=== PATIENT | female | born 2000 | race Caucasian/White ===

== ENCOUNTER 2024-09-25 13:43 | Inpatient (IN) | payer OTHER, SELFPAY ==
[2024-09-25] VITALS (17 sets, daily range): BP systolic 92–112; BP diastolic 61–83; PULSE 79–99; RESP 15–16; TEMP 36–36.8; O2SAT 94–100; BMI 36.3
--- NOTE | 2024-09-25 14:04 | ED.RN ---
PT GAVE LAST NIGHT AT [facility], AFTER GOING TO THE ED TO BE SEEN FOR ABD PAIN RELATED TO HER GALLBLADDER. PT WAS INDUCED AND GAVE TO A 7LB BABY GIRL. 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 PT DENIES ANY N/V OR BOWEL ISSUES. PT PRESENTS WITH YELLOWING OF THE EYES.
--- NOTE | 2024-09-25 14:40 | EX.ED.DYSGE1 ---
HPI History of Present Illness Chief Complaint: Abd Pain Narrative Narrative: Chief complaint and HPI: Right upper quadrant with epigastric abdominal pain. 24-year-old female who is A1 who was induced on 09/26/2024 at 38.6 weeks and delivered via vaginal delivery who presents for right upper quadrant and epigastric pain from [facility]. She was a transfer. History taken by patient, medical record, Dr. Chacon. Patient states that she started having right upper quadrant/epigastric pain on Saturday. She went to the [facility] on in which they induced her due to the concern of her gallbladder. She states the delivery went well without any complications for her the child. She has continued to have right upper quadrant/epigastric pain that radiates to the back. She endorses some nausea but denies vomiting. She denies any fever, chills, shortness of breath, chest pain, dysuria, diarrhea, constipation. Patient states that the ER was expecting her however none of the ER faculty knew that the patient was arriving. She did come with paperwork. She had a right upper quadrant ultrasound performed on 09/25/2024 that showed cholelithiasis. The common bile duct is dilated at 11 mm. Intraductal calculus is not demonstrated. She had mild transaminitis with a total bilirubin of 4.1. The faculty over there spoke with Dr. Chacon. Her lipase was 23. She had no leukocytosis. I spoke with Dr. Chacon personally on the phone, he states that the plan is medical admission with ERCP. Review of systems: See HPI Medications: As listed on the chart Allergies: As listed on the chart PFSH: Per chart Vital signs: As listed on the chart. Reviewed. Physical exam: Gen: A&O x3, NAD Head: Normocephalic, atraumatic Eyes: Sclera icterus, PERRL, EOMI ENT: Moist mucous membranes Neck: Trachea midline, No JVD CV: RRR, no murmurs, no peripheral edema Resp: Lungs CTA BL, no w/r/c GI: Abd soft, non-distended, mildly tender to palpation diffusely, no rebound or rigidity : No CVA tenderness Musc: Full ROM, no deformity Skin: Warm, jaundice Neuro: Alert, oriented, grossly intact, sensation intact Psych: Cooperative, appropriate mood and affect PFSH PFS Home Medications ?Medication ?Instructions ?Recorded ?Last Taken ?Type NK 09/25/24 Unknown History Allergy/AdvReac Type Severity Reaction Status Date / Time No Known Allergies Allergy Verified 09/25/24 14:07 Surgical History (Updated 09/25/24 @ 14:03 by Fiona Bustos) Hx of appendectomy Social History Smoking Status: Never smoker EXAM Physical Exam Const Vital Signs: 09/25/24 13:44 09/25/24 14:43 09/25/24 14:45 Temperature 96.8 F L 97.7 F L Temperature Source Temporal Oral Pulse Rate 86 94 94 Respiratory Rate 15 15 Blood Pressure 108/78 105/77 106/63 Blood Pressure Mean 88 86 77 Pulse Ox 100 96 97 Oxygen Delivery Method Room Air Room Air Room Air 09/25/24 15:00 Temperature 97.8 F Temperature Source Oral Pulse Rate 86 Respiratory Rate 15 Blood Pressure 94/61 Blood Pressure Mean 72 Pulse Ox 96 Oxygen Delivery Method Room Air MDM MDM MDM Narrative Medical decision making narrative: 24-year-old female who is A1 who was induced on 09/26/2024 at 38.6 weeks and delivered via vaginal delivery who presents for right upper quadrant and epigastric pain from [facility]. See HPI. Patient was induced secondary to her pain. She was found to have transaminitis with concern of choledocholithiasis, they spoke with Dr. Chacon with GI and patient was transferred to our hospital. The only issue was nobody in the emergency department was expecting her. I did speak to Dr. Chacon personally as well as reviewed her outlying facility labs and ultrasound. Plan is for admission with ERCP. NS bolus, morphine, Zofran ordered for pain. Will repeat labs before admission. Differential diagnosis includes but is not limited to choledocholithiasis, cholecystitis, cholangitis, pancreatitis, electrolyte abnormality. CBC without leukocytosis. Patient has anemia with hemoglobin of 11.7. She did just have a vaginal delivery. CMP without TIGIST but positive for transaminitis and hyperbilirubinemia. Total bilirubin is 4.12. Direct is 3.02. AST is 74. ALT is 95. Alk phosphatase is 154. Lipase unremarkable. Lactic acid unremarkable. Patient's pain is concerning for choledocholithiasis. Patient has no signs of cholangitis at this time however will cover prophylactically with Zosyn. Patient will warrant admission for ERCP and further workup. Patient was discussed with hospitalist service who accepted admission. Impression: 1. Right upper quadrant send epigastric pain with dilated common bile duct, concern for choledocholithiasis 2. Hyperbilirubinemia 3. Transaminitis 4. Recent vaginal delivery after induction Lab Data Labs: Laboratory Results - last 24 hr 09/25/24 09/25/24 14:40 14:45 WBC 10.2 RBC 3.75 L Hgb 11.7 L Hct 34.0 L MCV 90.7 MCH 31.2 MCHC 34.4 RDW Std Deviation 42.6 RDW Coeff of Rebeca 13.0 Plt Count 177 MPV 10.4 Immature Gran % (Auto) 0.900 Neut % (Auto) 77.6 H Lymph % (Auto) 15.8 L Dundy % (Auto) 4.9 Eos % (Auto) 0.4 Baso % (Auto) 0.4 Absolute Neuts (auto) 8.0 H Absolute Lymphs (auto) 1.62 Nucleated RBC % 0 Sodium 137 Potassium 3.6 Chloride 104 Carbon Dioxide 22.6 Anion Gap 10 BUN 4 Creatinine 0.70 Est GFR (MDRD) Non-Af 123 BUN/Creatinine Ratio 6.2 L Glucose 108 H Lactic Acid < 1.0 Calcium 9.0 Total Bilirubin 4.12 H Direct Bilirubin 3.02 H AST 74 H ALT 95 H Alkaline Phosphatase 154 H Total Protein 6.2 Albumin 3.4 L Globulin 2.8 Lipase 23 Discharge Plan Triage Chief Complaint: Abd Pain ED Provider: Florentin Zamudio Dx/Rx/DC Orders Prescriptions: No Action NK Primary Care Provider: Heather Ruby Referrals: Heather Ruby DO [Primary Care Provider] - Print Language: Tamazight
[2024-09-25] MEDS: Morphine 4 MG/ML Syringe IV (14:41)
[2024-09-25] MEDS: 0.9% Normal Saline (1000mL) 1,000 ML 1000 ML IV (14:41)
[2024-09-25] MEDS: Ondansetron 4 MG/2 ML Vial IV (14:42)
[2024-09-25 14:50] LABS: Absolute Lymphocyte Count 1.62 X10^3/uL (0.83-4.51); Basophil# 0.04 X10^3/uL; Basophil% 0.4 % (0-1); Eosinophil# 0.04 X10^3/uL; Eosinophils% 0.4 % (0-5); Hemoglobin 11.7 g/dL (12.0-15.0); Lymphocyte # 1.62 X10^3/ul (0.83-4.51); Lymphocyte % 15.8 % (19-41); Mean Corp Hgb Conc 34.4 g/dL (32-36); Mean Corpuscular Hgb 31.2 pg (27.0-32.0); Mean Corpuscular Volume 90.7 fL (81-99); Mean Platelet Vol. 10.4 fl (6.2-12.0); Monocyte% 4.9 % (0-10); NRBC Flagged by Analyzer 0 % (0-5); Neutrophil # 7.95 X10^3/uL (2.7-7.7); Neutrophil % 77.6 % (47-70); Platelet Count 177 K/mm3 (150-450); RBC Distribution Width SD 42.6 fl (35.1-43.9); Red Blood Count 3.75 M/mm3 (4.2-5.4); White Blood Count 10.2 K/mm3 (4.4-11.0)
[2024-09-25 15:43] LABS: AST(SGOT) 74 U/L (<=31); Alanine Aminotransfer ALT/SGPT 95 U/L (<=34); Albumin, Serum 3.4 g/dL (3.5-5.0); Alkaline Phosphatase 154 U/L (35-104); Anion Gap 10 (5-15); BUN 4 mg/dL (4-19); BUN/Creat Ratio 6.2 RATIO (10-20); Bilirubin, Direct 3.02 mg/dL (0.00-0.30); Carbon Dioxide 22.6 mmol/L (21.0-32.0); Chloride 104 mmol/L (98-108); EST Glomerular Filtration Rate 123 (>60); Globulin 2.8 g/dL (2.2-4.2); Glucose 108 mg/dL (70-99); Lipase 23 U/L (13-75); Potassium 3.6 mmol/L (3.3-5.1); Protein, Total 6.2 g/dL (5.9-8.4); Sodium Level 137 mmol/L (133-145); Total Bilirubin 4.12 mg/dL (0.00-1.30)
[2024-09-25 15:44] LABS: Lactic Acid < 1.0 mmol/L (0.0-2.0)
[2024-09-25] MEDS: Piperacil/Tazobactam 3.375 GM in 0.9% Normal Saline (50mL MB+) 50 ML IV ×2 (16:12→22:29)
--- NOTE | 2024-09-25 16:14 | HP.PCM.HOS_ITS ---
HPI - General General Date of Admission: 09/25/24 Date of Service: 09/25/24 Chief Complaint: Epigastric pain. HPI Narrative The patient is a 24 y/o Juancarlos F w/ PMHx: Biliary colic which from description has been ongoing for some time who presents to the [facility] ED on with history of being in her third trimester of with due date technically on 03 October however on Saturday she started having epigastric and right upper quadrant pain approximately 30 minutes following her meals with pain noted to be sharp stabbing and dull aching with associated nausea, emesis and diaphoresis however it seemed to subside but tended to also wax and wane with a reoccurrence event on at 3 AM in the morning with also at that time potential uterine cramps prompting outside facility ED evaluation at [facility]. Patient was admitted and delivered a healthy infant with no concerns per discussion with patient and spouse as well as review of facility records. The facility did speak with mercantile agent Dr. Chacon who recommended ERCP and was under the impression patient was being transferred to [facility] for treatment but secondary to cost and patient/spouse preference they ended up coming by private drive and presented to the ED. Patient notes that when her pain was at its worst was 9-10 out of 10 in severity. Currently she notes pain is improved and reporting 0 out of 10. Records from outside facility included most recently CMP with total bilirubin 4.2, AST/ALT 82/156, CBC with WBC 10.0, hemoglobin 11.4, platelet 184 with left shift, gallbladder ultrasound with evidence of cholelithiasis with numerous small stones layering in the gallbladder with mild intrahepatic ductal dilatation obtained on 09/24/2024 with follow-up repeat ultrasound with cholelithiasis with then common bile duct dilatation to 11 mm with intraductal calculus not demonstrated at that time but increasing concern. She denies any recent fevers or chills. Workup in the ED included T96.8 Temporal, heart rate 86, BP 108/78, respiratory rate 15, under percent on room air with most recent repeat vitals T97.9, heart rate 88, BP 92/69, respiratory rate 16, 95% on room air, CBC with WC 10.2, hemoglobin 0.7, platelets 177 with left shift, CMP with glucose 108, lactic acid less than 1, T. bili 4.12, D bili 3.02, AST/LT 74/25, alk phos 154, lipase 23. ED did discuss case with Dr. Chacon gastroenterology with plan for ERCP and also with Dr. Mayo general surgeon who requested medical admission with expected consult following ERCP per discussion with ED physician. [facility] Medical History (Updated 09/25/24 @ 16:[address] Radha Romano MD) Biliary colic Home Medications ?Medication ?Instructions ?Recorded ?Last Taken ?Type NK 09/25/24 Unknown History Allergy/AdvReac Type Severity Reaction Status Date / Time No Known Allergies Allergy Verified 09/25/24 14:07 Family History (Updated 09/25/24 @ 16:[address] Radha Romano MD) Mother No problems noted. Father No problems noted. Surgical History (Updated 09/25/24 @ 14:03 by Fiona Bustos) Hx of appendectomy Social History (Updated 09/25/24 @ 16:[address] Radha Romano MD) household members: spouse, children and other details: 2 older children at home, 1 miscarriage, 1 09/24/24. Smoking Status: Never smoker alcohol intake: never substance use type: does not use ROS ROS Narrative Admission Review of Systems: CONSTITUTIONAL: No weight loss, fever, chills, + weakness or fatigue. HEENT: + Mild jaundice/mild scleral icterus Eyes: No visual loss, blurred vision, double vision or yellow sclerae. Ears, Nose, Throat: No hearing loss, sneezing, congestion, runny nose or sore throat. SKIN: No rash or itching, lesions, wounds, + mild scleral icterus/jaundice evidence, occasional stage ecchymoses likely from recent lab draws. CARDIOVASCULAR: No chest pain, chest pressure or chest discomfort, palpitations, edema, orthopnea, syncopal events. RESPIRATORY: No shortness of breath, cough or sputum, wheezing, hemoptysis. GASTROINTESTINAL: + Decreased appetite, episode of nausea and emesis, abdominal pain. No diarrhea, abdominal pain, melena, BRBPR. GENITOURINARY: No dysuria, frequency, urgency or retention. NEUROLOGICAL: No headache, dizziness, syncope, paralysis, ataxia, numbness or tingling in the extremities, focal weakness, change in bowel or bladder control, seizure. MUSCULOSKELETAL: + muscle, back pain, joint pain or stiffness. HEMATOLOGIC: + Anemia likely associate with , recent spontaneous vaginal delivery with expected postdelivery vaginal bleeding. LYMPHATICS: No enlarged nodes. No history of splenectomy. PSYCHIATRIC: No history of depression or anxiety. ENDOCRINOLOGIC: No reports of sweating, cold or heat intolerance. No polyuria or polydipsia. ALLERGIES: No history of asthma, hives, eczema or rhinitis. Vital Signs Vital Signs Vital Signs: 09/25/24 13:44 09/25/24 14:43 09/25/24 14:45 Temperature 96.8 F L 97.7 F L Temperature Source Temporal Oral Pulse Rate 86 94 94 Respiratory Rate 15 15 Blood Pressure 108/78 105/77 106/63 Blood Pressure Mean 88 86 77 Pulse Ox 100 96 97 Oxygen Delivery Method Room Air Room Air Room Air 09/25/24 15:00 Temperature 97.8 F Temperature Source Oral Pulse Rate 86 Respiratory Rate 15 Blood Pressure 94/61 Blood Pressure Mean 72 Pulse Ox 96 Oxygen Delivery Method Room Air Physical Exam Narrative Physical Examination: General: Awake, alert, oriented x 3 and cooperative, seated upright in the ED bed in no apparent distress, fatigued, notes pain is absent at this time. Skin: Mildly jaundiced color, normal turgor, no icterus, no cyanosis except occasional stage ecchymoses suspected likely from recent lab draws at alternate facility HEENT: AT/NC, EOMI, PERRLA, mild scleral icterus evident, mildly dry MM, no carotid bruits or JVD noted. Lungs: CTA bilaterally, moderate effort, mild decrease BL bases, no rales, ronchi or wheezing. Heart: Regular rate and rhythm; no gallop, rub audible. Abdomen: Soft, no significant tenderness to palpation of the epigastric or right upper quadrant despite recent pain reported prior, she notes it currently is better, some discomfort with palpation of the uterine fundus as to be expected, no marked distention evident, distant BS, no obvious HSM. Extremities: No cyanosis, clubbing, or edema. Neurological: Patient awake, alert, oriented as noted, cognitive function intact; pupils equally reactive to light and accommodation, cranial nerves grossly normal, moving all 4 extremities, no focal deficits, strength mildly globally decreased. Psychiatric: Affect appears fatigued, no acute evidence of depressive or anxiety feelings. Results Lab / Micro Data 09/25/24 14:40 09/25/24 14:40 Labs: Laboratory Results - last 24 hr 09/25/24 14:40: WBC 10.2, RBC 3.75 L, Hgb 11.7 L, Hct 34.0 L, MCV 90.7, MCH 31.2, MCHC 34.4, RDW Std Deviation 42.6, RDW Coeff of Rebeca 13.0, Plt Count 177, MPV 10.4, Immature Gran % (Auto) 0.900, Neut % (Auto) 77.6 H, Lymph % (Auto) 15.8 L, [place] % (Auto) 4.9, Eos % (Auto) 0.4, Baso % (Auto) 0.4, Absolute Neuts (auto) 8.0 H, Absolute Lymphs (auto) 1.62, Nucleated RBC % 0, Sodium 137, Potassium 3.6, Chloride 104, Carbon Dioxide 22.6, Anion Gap 10, BUN 4, Creatinine 0.70, Est GFR (MDRD) Non-Af 123, BUN/Creatinine Ratio 6.2 L, Glucose 108 H, Calcium 9.0, Total Bilirubin 4.12 H, Direct Bilirubin 3.02 H, AST 74 H, A LT 95 H, Alkaline Phosphatase 154 H, Total Protein 6.2, Albumin 3.4 L, Globulin 2.8, Lipase 23 09/25/24 14:45: Lactic Acid < 1.0 Assessment & Plan Assessment/Plan (1) Choledocholithiasis: (2) Vaginal delivery: PLAN: Plan The patient is a 24 y/o Juancarlos F w/ PMHx: Biliary colic which from description has been ongoing for some time who presents to the [facility] ED on with history of being in her third trimester of with due date technically on 03 October however on Saturday she started having epigastric and right upper quadrant pain approximately 30 minutes following her meals with pain noted to be sharp stabbing and dull aching with associated nausea, emesis and diaphoresis however it seemed to subside but tended to also wax and wane with a reoccurrence event on at 3 AM in the morning with also at that time potential uterine cramps prompting outside facility ED evaluation at [facility]. #1. Acute choledocholithiasis with significant hyperbilirubinemia, transaminitis, mild leukocytosis with shift complicated by #2: Will admit to medical surgical floor, plan for transition potentially from ED to ERCP lab per discussion with gastroenterology, will continue n.p.o. status, IV PPI, IV fluids, IV Zosyn, continued CBC, BMP/Paddock profile trending as well as lipase trending, General Surgery also consulted for planned upcoming cholecystectomy given history. #2. Recent spontaneous vaginal delivery with breast-feeding status: Will maintain on vitamin and have requested breast pump be made available for patient and that breastmilk be stored in the normal section that OB utilizes. Pharmacy consulted to review medications given breast-feeding status. #3. Normocytic anemia, suspect related with : Admission hemoglobin 11.7, MCV 90.7, similar to outside facility, will continue to trend CBC. Continue on complete prenatals as noted above. #4. DVT prophylaxis: SCDs. Charges/Coding Visit Charges Inpatient E&M: 26323 Init Hosp L2
--- NOTE | 2024-09-25 16:27 | ED.RN ---
THIS NURSE WAS ADVISED BY HER CHARGE NURSE THAT PT WAS GOING DOWN FOR SURGERY, DR YOUNG WAS IN TH ROOM WITH PT AND DR CRAWFORD WAS UNAWARE THE PT WAS GOING DOWN. AFTER DR YOUNG POHEDY ITH DR BATISTA IT WAS CONFIRMED PT WAS GOING DOWN FOR PREOP WITH DR BATISTA. I GAVE ZOSYN ABX IV AND CALLED REPORT TO #[phone].
--- NOTE | 2024-09-25 16:48 | PCM.PRE.AN2 ---
ASA Classification* ASA Classification ASA Classification: 2 and E Assessment & Plan Anesthesia* Anesthesia Assessment Anesthesia Assessment: Discussed sedation and/or anesthesia options, risks, benefits, and alternatives with patient/parents/legal guardian/POA. Questions invited. The patient/parents/legal guardian/POA seems to understand and agrees to proceed with anesthesia plan. Reviewed the physical assessment, medical history, allergy history and patient home medications list prior to surgery/procedure/anesthetic and documented any changes. Performed airway and anesthesia risk assessments. Anesthesia Type Anesthesia Type: General (Food at 930 am. with delivery yesterday) Anesthesia Focused Assessment* Temperature: 97.9 F Pulse Rate: 88 Blood Pressure: 92/69 Respiratory Rate: 16 Pulse Ox: 95 Airway Assessment Mouth opens: >3 cm Mallampati Score: II Focused Labs Anesthesia Preop lab: CBC WBC 10.2 K/mm3 (4.4-11.0) 09/25/24 14:40 09/25/24 RBC 3.75 M/mm3 (4.2-5.4) L 09/25/24 14:40 09/25/24 Hgb 11.7 g/dL (12.0-15.0) L 09/25/24 14:40 09/25/24 Hct 34.0 % (37-47) L 09/25/24 14:40 09/25/24 Plt Count 177 K/mm3 (150-450) 09/25/24 14:40 09/25/24 CHEMISTRY Potassium 3.6 mmol/L (3.3-5.1) 09/25/24 14:40 09/25/24 Sodium 137 mmol/L (133-145) 09/25/24 14:40 09/25/24 BUN 4 mg/dL (4-19) 09/25/24 14:40 09/25/24 Creatinine 0.70 mg/dL (0.70-1.20) 09/25/24 14:40 09/25/24 Glucose 108 mg/dL (70-99) H 09/25/24 14:40 09/25/24 COAG Pre-Assessment Diagnosis/Proposed Procedure Planned Operative Procedure(s): ERCP Anesthesia History Anesthesia History - transmission builder: Anesthesia History - transmission builder Hx Hospitalization Any Problems With Anesthesia Cholinesterase deficiency You/Your Family Experience fever (hyperthermia) with Relationship Recent Exposure to Contagious Disease Does patient have nerve stimulator Patient instructed to have device shut off --Does patient have Pacemaker or ICD? When Was Last Pacemaker Check QUESTION #4 FULL TEXT: You/Your Family Experience fever (hyperthermia) with Anesthesia Last Oral Intake Last Oral intake: Last Oral Intake NPO since Meds taken in AM with sips of water? 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 - transmission builder: PONV - transmission builder Female HX of Motion Sickness HX of N/V After Surgery Non-Smoker Duration of Surgery greater than 60 minutes Number of Risk Factors PONV Score Height & Weight Height & Weight: Anesthesia: Height & Weight Height 5 ft 4 in 09/25/24 13:44 Respiratory Assessment Respiratory Assessment - transmission builder: Respiratory Tract Infection Hx - transmission builder Hx Respiratory Tract Infection STOP Sleep Apnea STOP Sleep Apnea - transmission builder: STOP Sleep Apnea - transmission builder Hx Hypertension Hx Sleep Apnea CPAP BIPAP Do you snore loudly (louder than talking or can be heard Do you often feel tired/ fatigued/ sleepy during daytime? Has anyone observed you stop breathing during sleep? STOP Results QUESTION #5 FULL TEXT : Do you snore loudly (louder than talking or can be heard through closed doors)? 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 Specify any problems Hx of Preganancy in last 3 Months Nurse Filling Out Transfusion & Questions: Date: Time: Patient unable to answer at this time (ie. confused, unrespo /Reproduction History /Reproductive History - transmission builder: /Reproductive Hx- transmission builder Hx Now Gestational Age (in weeks): EDC: Hx Hx Para Hx Section SAB No 09/25/24 13:44 PFSH Medical History Biliary colic Home Medications ?Medication ?Instructions ?Recorded ?Last Taken ?Type NK 09/25/24 Unknown History Allergy/AdvReac Type Severity Reaction Status Date / Time No Known Allergies Allergy Verified 09/25/24 14:07 Family History Mother No problems noted. Father No problems noted. Surgical History Hx of appendectomy Social History household members: spouse, children and other details: 2 older children at home, 1 miscarriage, 1 09/24/24. Smoking Status: Never smoker alcohol intake: never substance use type: does not use Review of Systems (Anesthesia) ROS Narrative System reviewed and no additional complaints, except as documented.
--- NOTE | 2024-09-25 16:48 | EX.PCM.CON.G ---
HPI Consult Data Date of Consult: 09/25/24 HPI Narrative Reason for Consultation: Choledocholithiasis HPI Narrative: SUSANNA CROWLEY, is a 24 F who presents 24-year-old female who is A1 who was induced on 09/26/2024 at 38.6 weeks and delivered via vaginal delivery who presents for right upper quadrant and epigastric pain from [facility]. She was a transfer. History taken by patient, medical record, Dr. Chacon. Patient states that she started having right upper quadrant/epigastric pain on Saturday. She went to the [facility] on in which they induced her due to the concern of her gallbladder. She states the delivery went well without any complications for her the child. She has continued to have right upper quadrant/epigastric pain that radiates to the back. She endorses some nausea but denies vomiting. She denies any fever, chills, shortness of breath, chest pain, dysuria, diarrhea, constipation. Patient states that the ER was expecting her however none of the ER faculty knew that the patient was arriving. She did come with paperwork. She had a right upper quadrant ultrasound performed on 09/25/2024 that showed cholelithiasis. The common bile duct is dilated at 11 mm. Intraductal calculus is not demonstrated. She had mild transaminitis with a total bilirubin of 4.1. [facility] Medical History Biliary colic Home Medications ?Medication ?Instructions ?Recorded ?Last Taken ?Type NK 09/25/24 Unknown History Allergy/AdvReac Type Severity Reaction Status Date / Time No Known Allergies Allergy Verified 09/25/24 14:07 Family History Mother No problems noted. Father No problems noted. Surgical History Hx of appendectomy Social History household members: spouse, children and other details: 2 older children at home, 1 miscarriage, 1 09/24/24. Smoking Status: Never smoker alcohol intake: never substance use type: does not use ROS Constitutional Constitutional: Denies fatigue, fever(s), poor appetite, weight gain or weight loss Gastrointestinal Gastrointestinal: Denies belching, bloating, change in bowel habits, change in stool character, chewing difficulty, coffee ground emesis, constipation, cramping, diarrhea, dyspepsia, dysphagia, early satiety, excessive flatus, fecal incontinence, heartburn, hematemesis, hematochezia, hemorrhoids, loose stools, melena, nausea, odynophagia, rectal bleeding, tenesmus, vomiting or weight changes Physical Exam Const alert, oriented x3, no apparent distress and healthy appearing General Appearance: cooperative GI normal to inspection, nondistended, normoactive bowel sounds, soft to palpation, non-tender and non-distended Percussion: normal to percussion Rectal Exam: deferred Lab / Micro Data 09/25/24 14:40 09/25/24 14:40 Labs: Laboratory Results - last 24 hr 09/25/24 14:40: WBC 10.2, RBC 3.75 L, Hgb 11.7 L, Hct 34.0 L, MCV 90.7, MCH 31.2, MCHC 34.4, RDW Std Deviation 42.6, RDW Coeff of Rebeca 13.0, Plt Count 177, MPV 10.4, Immature Gran % (Auto) 0.900, Neut % (Auto) 77.6 H, Lymph % (Auto) 15.8 L, [place] % (Auto) 4.9, Eos % (Auto) 0.4, Baso % (Auto) 0.4, Absolute Neuts (auto) 8.0 H, Absolute Lymphs (auto) 1.62, Nucleated RBC % 0, Sodium 137, Potassium 3.6, Chloride 104, Carbon Dioxide 22.6, Anion Gap 10, BUN 4, Creatinine 0.70, Est GFR (MDRD) Non-Af 123, BUN/Creatinine Ratio 6.2 L, Glucose 108 H, Calcium 9.0, Total Bilirubin 4.12 H, Direct Bilirubin 3.02 H, AST 74 H, ALT 95 H, Alkaline Phosphatase 154 H, Total Protein 6.2, Albumin 3.4 L, Globulin 2.8, Lipase 23 09/25/24 14:45: Lactic Acid < 1.0 Assessment & Plan Assessment/Plan (1) Choledocholithiasis: (2) Vaginal delivery: PLAN: Plan 24 y/o F w/ PMHx: Biliary colic which from description has been ongoing for some time who presents to the [facility] ED on with history of being in her third trimester of . Laboratory analysis showed increased bilirubin to 4.8, AST 350, ALT 371, alkaline phosphatase 200. Ultrasound showed multiple filling defects in gallbladder and common bile duct increased from 5 mm to 11 mm. She did also have some leukocytosis. I suspect obstructive jaundice secondary to choledocholithiasis and possible underlying ascending cholangitis. Patient will undergo emergent ERCP. Agree with antibiotics. Patient was explained alternatives, risk, benefits include understanding bleeding, infection, sepsis, perforation, need for urgent . She will have an ASA of 3. Charges/Coding Visit Charges Inpatient E&M: 92044 Init Hosp L3
--- NOTE | 2024-09-25 17:15 | RAD_ITS ---
EXAM: ERCP biliary/pancreas CLINICAL HISTORY: ERCP TECHNIQUE: Fluoroscopy for ERCP with 9 spot images FINDINGS: Fluoroscopy time 7.0 seconds Total dose 2.08 mGy Placement of a pancreatic duct stent. Cannulation of the common bile duct. Contrast is seen within a dilated appearing common bile duct. Contrast fills an intrahepatic duct which appears nondilated. A gallbladder is not definitely seen. Placement of a CBD stent. RAD/ERCP Biliary/Pancreas IMPRESSION: ERCP with placement of pancreatic and CBD stents. Reading Location: [id number]
--- NOTE | 2024-09-25 17:56 | OP.ERCP_ITS ---
Patient Name: Lucy Benavides Procedure Date: 09/25/2024 5:02 PM Date of : 2000 Age: 24 Procedure: ERCP Indications: Common bile duct stone(s), Jaundice, Elevated liver enzymes Providers: Ld Chacon DO Medicines: General Anesthesia Patient Profile: This is a 24 year old female. Refer to note in patient chart for documentation of history and physical. Patient has symptoms of acute right upper quadrant abdominal pain and acute jaundice. This patient has no history of previous ERCP. This patient has no history of surgical alteration of the upper digestive tract anatomy. Complications: No immediate complications. Procedure: Pre-Anesthesia Assessment: - Prior to the procedure, a History and Physical was performed, and patient medications and allergies were reviewed. The patient is competent. The risks and benefits of the procedure and the sedation options and risks were discussed with the patient. All questions were answered and informed consent was obtained. Patient identification and proposed procedure were verified by the physician in the pre-procedure area. Mental Status Examination: alert and oriented. Airway Examination: normal oropharyngeal airway and neck mobility. Respiratory Examination: clear to auscultation. CV Examination: normal. Prophylactic Antibiotics: The patient does not require prophylactic antibiotics. Prior Anticoagulants: The patient has taken no anticoagulant or antiplatelet agents except for NSAID medication. ASA Grade Assessment: II - A patient with mild systemic disease. After reviewing the risks and benefits, the patient was deemed in satisfactory condition to undergo the procedure. The anesthesia plan was to use monitored anesthesia care (MAC). Immediately prior to administration of medications, the patient was re-assessed for adequacy to receive sedatives. The heart rate, respiratory rate, oxygen saturations, blood pressure, adequacy of pulmonary ventilation, and response to care were monitored throughout the procedure. The physical status of the patient was re-assessed after the procedure. After obtaining informed consent, the scope was passed under direct vision. Throughout the procedure, the patient's blood pressure, pulse, and oxygen saturations were monitored continuously. The Duodenoscope was introduced through the mouth, and advanced to the duodenum and used to inject contrast into the bile duct and ventral pancreatic duct. The ERCP was accomplished without difficulty. The patient tolerated the procedure well. Scope In: 5:18:14 PM Scope Out: 5:40:19 PM Total Procedure Duration Time 0 hours 22 minutes 5 seconds Findings: The engineering specialist film was normal. The esophagus was successfully intubated under direct vision. The scope was advanced to a normal major papilla in the descending duodenum without detailed examination of the pharynx, larynx and associated structures, and upper GI tract. The upper GI tract was grossly normal. The ventral pancreatic duct was deeply cannulated with the short-nosed traction sphincterotome. Contrast was injected. I personally interpreted the bile duct and pancreatic duct images. There was brisk flow of contrast through the ducts. Image quality was excellent. Contrast extended to the entire biliary tree. The entire opacified area was normal. A long 0.025 inch Jagwire was passed into the ventral pancreatic duct. A 5 mm ventral pancreatic sphincterotomy was made with a traction (standard) sphincterotome using ERBE electrocautery. There was no post-sphincterotomy bleeding. To find object(s) the ventral pancreatic duct was swept with a 6 mm balloon starting at the pancreatic duct in the body of the pancreas. Nothing was found. One 5 Fr by 7 cm temporary stent was placed 5 cm into the ventral pancreatic duct. Bile flowed through the stent. The stent was in good position. A long 0.025 inch Jagwire was passed into the biliary tree. The short-nosed traction sphincterotome was passed over the guidewire and the bile duct was then deeply cannulated. Contrast was injected. Opacification of the entire opacified area and entire biliary tree was successful. The maximum diameter of the ducts was 10 mm. The lower third of the main bile duct contained three stones, the largest of which was 6 mm in diameter. The entire biliary tree was diffusely dilated, with a stone causing an obstruction. The largest diameter was 12 mm. A 5 mm biliary sphincterotomy was made with a traction (standard) sphincterotome using ERBE electrocautery. There was no post-sphincterotomy bleeding. The biliary tree was swept with a 10 mm balloon starting at the upper third of the main bile duct, middle third of the main bile duct, lower third of the main duct, bifurcation, left intrahepatic duct(s) and right intrahepatic duct(s). Sludge was swept from the duct. All stones were removed. One 10 Fr by 5 cm temporary stent was placed 5 cm into the common bile duct. Bile flowed through the stent. The stent was in good position. Impression: - The entire biliary tree was dilated, with a stone causing an obstruction. - Choledocholithiasis was found. Complete removal was accomplished by biliary sphincterotomy and balloon extraction. - A pancreatic sphincterotomy was performed. - The ventral pancreatic duct was swept and nothing was found. - One temporary stent was placed into the ventral pancreatic duct. - A biliary sphincterotomy was performed. - The biliary tree was swept. - One temporary stent was placed into the common bile duct. Procedure Code(s): --- Professional --- 38693, Endoscopic retrograde cholangiopancreatography (ERCP); with placement of endoscopic stent into biliary or pancreatic duct, including pre- and post-dilation and guide wire passage, when performed, including sphincterotomy, when performed, each stent [id number], 59, Endoscopic retrograde cholangiopancreatography (ERCP); with placement of endoscopic stent into biliary or pancreatic duct, including pre- and post-dilation and guide wire passage, when performed, including sphincterotomy, when performed, each stent [id number], Endoscopic retrograde cholangiopancreatography (ERCP); with removal of calculi/debris from biliary/pancreatic duct(s) 45172, 26, Combined endoscopic catheterization of the biliary and pancreatic ductal systems, radiological supervision and interpretation CPT copyright 2021 [employer]. All rights reserved. The codes documented in this report are preliminary and upon balloon artist review may be revised to meet current compliance requirements. Ld Chacon DO 09/25/2024 5:55:43 PM This report has been signed electronically. Number of Addenda: 0 Note Initiated On: 09/25/2024 5:02 PM
--- NOTE | 2024-09-25 18:03 | PCM.POST.ANE ---
Anesthesia: Postop Eval I Current Vital Signs Temperature: 97.6 F Pulse Rate: 96 Blood Pressure: 112/78 Respiratory Rate: 16 Pulse Ox: 94 Oxygen Delivery Method: Room Air Assessment Airway patent: Yes Spontaneous unlabored respirations: Yes Mental status: Awake nausea: No Vomiting: No Anesthesia Complication: No Fluid Hydration Crystalloid volume administer (ml): 400 Total IV fluid infused: 400 Progress Note Anesthesia document: Postop Eval 1 completed: Yes
--- NOTE | 2024-09-25 18:05 | PCM.POSTANE2 ---
Anesthesia Postop Eval I Sum Postop Eval Completion status Anesthesia document: Postop Eval 1 completed: Yes Anesthesia Postop Eval I Summary Anesthesia Postop Eval I Summary: Anesthesia Postop Eval I: Assessment Summary Airway patent Yes 09/25/24 18:04 Spontaneous unlabored Yes 09/25/24 18:04 respirations Mental status Awake 09/25/24 18:04 nausea No 09/25/24 18:04 Vomiting No 09/25/24 18:04 Anesthesia Postop Eval I: Fluid Summary Crystalloid volume administer 400 09/25/24 18:04 (ml) Colloids volume administered ( ml) Blood Product volume administered (ml) Total IV fluid infused 400 09/25/24 18:04 Anesthesia Postop Eval I: Summary Notes Anesthesia Complication No 09/25/24 18:04 Anesthesia Complication Comment: Post-operative progress note Anesthesia: Postop Eval II Evaluation Mental status: Awake Pain Level: 0 nausea: No Vomiting: No
[2024-09-25] MEDS: Morphine 2 MG/ML Syringe IV (21:05)
[2024-09-25] MEDS: 0.9% Normal Saline (1000mL) 1,000 ML 100 ML IV (21:06)
[2024-09-25] MEDS: Pantoprazole Sodium 40 MG in 0.9% Normal Saline (100mL MB+) 100 ML 330 MG IV (21:08)
[2024-09-25] MEDS: 0.9% Normal Saline (100mL Bag) 100 ML 15 ML IV (21:14)
[2024-09-26 00:38] VITALS: RESP 15
[2024-09-26 02:04] VITALS: BP 96/63; PULSE 95; RESP 15; TEMP 36.7; O2SAT 96
[2024-09-26] MEDS: Morphine 2 MG/ML Syringe IV (02:11)
[2024-09-26 05:53] VITALS: BP 98/67; PULSE 92; RESP 15; TEMP 36.8; O2SAT 97
[2024-09-26] MEDS: 0.9% Normal Saline (1000mL) 1,000 ML 100 ML IV (05:56)
[2024-09-26] MEDS: Piperacil/Tazobactam 3.375 GM in 0.9% Normal Saline (50mL MB+) 50 ML IV ×2 (05:57→13:49)
[2024-09-26 06:00] VITALS: BMI 35.5
[2024-09-26 06:33] LABS: Absolute Lymphocyte Count 2.03 X10^3/uL (0.83-4.51); Absolute Neutrophil Count 6.4 X10^3/uL (2.0-7.7); Basophil# 0.04 X10^3/uL; Basophil% 0.4 % (0-1); Eosinophil# 0.09 X10^3/uL; Hematocrit 33.9 % (37-47); Hemoglobin 11.4 g/dL (12.0-15.0); Lymphocyte # 2.03 X10^3/ul (0.83-4.51); Lymphocyte % 22.4 % (19-41); Mean Corp Hgb Conc 33.6 g/dL (32-36); Mean Corpuscular Hgb 31.4 pg (27.0-32.0); Mean Corpuscular Volume 93.4 fL (81-99); Mean Platelet Vol. 10.5 fl (6.2-12.0); Monocyte# 0.46 X10^3/uL; Monocyte% 5.1 % (0-10); NRBC Flagged by Analyzer 0 % (0-5); Neutrophil # 6.36 X10^3/uL (2.7-7.7); Neutrophil % 70.3 % (47-70); Platelet Count 195 K/mm3 (150-450); RBC Distribution Width CV 13.1 % (11.6-14.6); Red Blood Count 3.63 M/mm3 (4.2-5.4); White Blood Count 9.1 K/mm3 (4.4-11.0)
--- NOTE | 2024-09-26 07:18 | PCM.PN.HOSP ---
Reason for Visit Reason for Visit: Diagnoses Calculus of bile duct without cholangitis or cholecystitis without obstruction (09/25/24) Encounter for full-term uncomplicated delivery (09/25/24) Objective Data Objective Data Vital Signs: Vital Signs Temp Pulse Resp BP Pulse Ox O2 Del Method 98.3 F 92 15 98/67 97 Room Air 09/26/24 05:53 09/26/24 05:53 09/26/24 05:53 09/26/24 05:53 09/26/24 05:53 09/26/24 05:53 Oxygen Delivery Method Room Air Weight: 208 lb 1.862 oz Body Mass Index (BMI) 35.5 Intake & Output: Intake and Output for Last 24 Hours 09/24/24 09/25/24 09/26/24 23:59 23:59 23:59 Intake Total 1160 / 1160 1033.33 / 1033.33 Balance 1160 / 1160 1033.33 / 1033.33 Lab / Micro Data 09/26/24 05:40 09/25/24 14:40 Labs: Laboratory Results - last 24 hr 09/25/24 14:40: WBC 10.2, RBC 3.75 L, Hgb 11.7 L, Hct 34.0 L, MCV 90.7, MCH 31.2, MCHC 34.4, RDW Std Deviation 42.6, RDW Coeff of Rebeca 13.0, Plt Count 177, MPV 10.4, Immature Gran % (Auto) 0.900, Neut % (Auto) 77.6 H, Lymph % (Auto) 15.8 L, [place] % (Auto) 4.9, Eos % (Auto) 0.4, Baso % (Auto) 0.4, Absolute Neuts (auto) 8.0 H, Absolute Lymphs (auto) 1.62, Nucleated RBC % 0, Sodium 137, Potassium 3.6, Chloride 104, Carbon Dioxide 22.6, Anion Gap 10, BUN 4, Creatinine 0.70, Est GFR (MDRD) Non-Af 123, BUN/Creatinine Ratio 6.2 L, Glucose 108 H, Calcium 9.0, Total Bilirubin 4.12 H, Direct Bilirubin 3.02 H, AST 74 H, ALT 95 H, Alkaline Phosphatase 154 H, Total Protein 6.2, Albumin 3.4 L, Globulin 2.8, Lipase 23 09/25/24 14:45: Lactic Acid < 1.0 09/26/24 05:40: WBC 9.1, RBC 3.63 L, Hgb 11.4 L, Hct 33.9 L, MCV 93.4, MCH 31.4, MCHC 33.6, RDW Std Deviation 45.0 H, RDW Coeff of Rebeca 13.1, Plt Count 195, MPV 10.5, Immature Gran % (Auto) 0.800, Neut % (Auto) 70.3 H, Lymph % (Auto) 22.4, [place] % (Auto) 5.1, Eos % (Auto) 1.0, Baso % (Auto) 0.4, Absolute Neuts (auto) 6.4, Absolute Lymphs (auto) 2.03, Nucleated RBC % 0 Radiography Diagnostic Testing: Radiology Impression Endo Retro Cholangiopancreatogram 09/25/24 17:15 IMPRESSION: ERCP with placement of pancreatic and CBD stents. Reading Location: [id number] Assessment & Plan Assessment/Plan (1) Choledocholithiasis: (2) Vaginal delivery: PLAN: Plan The patient is a 24 y/o Religious F w/ PMHx: Biliary colic which from description has been ongoing for some time who presents to the [facility] ED on with history of being in her third trimester of with due date technically on 03 October however on Saturday she started having epigastric and right upper quadrant pain approximately 30 minutes following her meals with pain noted to be sharp stabbing and dull aching with associated nausea, emesis and diaphoresis however it seemed to subside but tended to also wax and wane with a reoccurrence event on at 3 AM in the morning with also at that time potential uterine cramps prompting outside facility ED evaluation at [facility]. #1. Acute choledocholithiasis with significant hyperbilirubinemia, transaminitis, mild leukocytosis with shift complicated by #2: Will admit to medical surgical floor, plan for transition potentially from ED to ERCP lab per discussion with gastroenterology, will continue n.p.o. status, IV PPI, IV fluids, IV Zosyn, continued CBC, BMP/P[place]ock profile trending as well as lipase trending, General Surgery also consulted for planned upcoming cholecystectomy given history. Impression: - The entire biliary tree was dilated, with a stone causing an obstruction. - Choledocholithiasis was found. Complete removal was accomplished by biliary sphincterotomy and balloon extraction. - A pancreatic sphincterotomy was performed. - The ventral pancreatic duct was swept and nothing was found. - One temporary stent was placed into the ventral pancreatic duct. - A biliary sphincterotomy was performed. - The biliary tree was swept. - One temporary stent was placed into the common bile duct. #2. Recent spontaneous vaginal delivery with breast-feeding status: on vitamin #3. Normocytic anemia, suspect related with : Admission hemoglobin 11.7, MCV 90.7 #4. DVT prophylaxis: SCDs.
[2024-09-26 07:28] LABS: Lipase 1358 U/L (13-75)
[2024-09-26 07:39] LABS: AST(SGOT) 51 U/L (<=31); Alanine Aminotransfer ALT/SGPT 70 U/L (<=34); Alkaline Phosphatase 130 U/L (35-104); Anion Gap 9 (5-15); BUN 5 mg/dL (4-19); BUN/Creat Ratio 7.8 RATIO (10-20); Bilirubin, Direct 0.66 mg/dL (0.00-0.30); Calcium,Total 8.1 mg/dL (7.6-11.0); Carbon Dioxide 21.9 mmol/L (21.0-32.0); Chloride 108 mmol/L (98-108); EST Glomerular Filtration Rate 123 (>60); Estimated Creatinine Clearance 136.89 ml/min (50-250); Globulin 2.9 g/dL (2.2-4.2); Glucose 77 mg/dL (70-99); Potassium 3.9 mmol/L (3.3-5.1); Protein, Total 5.9 g/dL (5.9-8.4); Sodium Level 139 mmol/L (133-145); Total Bilirubin 0.99 mg/dL (0.00-1.30)
[2024-09-26] MEDS: Acetaminophen 325 MG Tablet 650 MG PO (08:14)
--- NOTE | 2024-09-26 09:08 | EX.PCM.CON.S ---
Assessment & Plan Assessment/Plan (1) Choledocholithiasis: PLAN: Patient gave the day before presentation she presented then with choledocholithiasis. She had ERCP yesterday with stent placement and stone removal. She is feeling well this morning. I will start her on clear liquids. The patient would like to follow-up with Dr. Shaq Richter at [place] for her cholecystectomy. I will refer her on Saturday. I gave her my card in case he is unable to do the surgery and she can follow-up with me. I believe she is safe to be discharged home today or tomorrow depending on hospitalist service. She has a stent in place to prevent further blockage. Chandan Mayo MD Pager: [facility] [address] [place] [address], [address] [place] [address] Office: HPI Consult Data Date of Consult: 09/26/24 HPI Narrative HPI Narrative: SUSANNA CROWLEY, is a 24 F who presents with choledocholithiasis from outside hospital. She underwent ERCP yesterday with stone removal and stent placement. Currently she is not having any pain. [facility] Medical History Biliary colic Home Medications ?Medication ?Instructions ?Recorded ?Last Taken ?Type NK 09/25/24 Unknown History Allergy/AdvReac Type Severity Reaction Status Date / Time No Known Allergies Allergy Verified 09/25/24 14:07 Family History Mother No problems noted. Father No problems noted. Surgical History Hx of appendectomy Social History household members: spouse, children and other details: 2 older children at home, 1 miscarriage, 1 09/24/24. Smoking Status: Never smoker alcohol intake: never substance use type: does not use ROS Constitutional Constitutional: Denies anorexia, chills, fatigue or fever(s) Eyes Eyes: Denies blurry vision ENT HEENT: Denies abnormal hearing Gastrointestinal Gastrointestinal: Reports abdominal pain; Denies nausea or vomiting Genitourinary Genitourinary: Denies change in urinary stream Musculoskeletal Musculoskeletal: Denies abnormal gait Psychiatric Psychiatric: Denies anxiety Endocrine Endocrinology: Denies flushing Hematologic/Lymphatic Hematologic/Lymphatic: Denies easy bleeding Physical Exam Const alert and oriented x3 HEENT normocephalic Eyes PERRL Resp normal respiratory effort Cardio Rate: regular rate Rhythm: regular rhythm GI soft to palpation and non-tender Lab / Micro Data 09/26/24 05:40 09/26/24 05:40 Labs: Laboratory Results - last 24 hr 09/25/24 14:40: WBC 10.2, RBC 3.75 L, Hgb 11.7 L, Hct 34.0 L, MCV 90.7, MCH 31.2, MCHC 34.4, RDW Std Deviation 42.6, RDW Coeff of Rebeca 13.0, Plt Count 177, MPV 10.4, Immature Gran % (Auto) 0.900, Neut % (Auto) 77.6 H, Lymph % (Auto) 15.8 L, [place] % (Auto) 4.9, Eos % (Auto) 0.4, Baso % (Auto) 0.4, Absolute Neuts (auto) 8.0 H, Absolute Lymphs (auto) 1.62, Nucleated RBC % 0, Sodium 137, Potassium 3.6, Chloride 104, Carbon Dioxide 22.6, Anion Gap 10, BUN 4, Creatinine 0.70, Est GFR (MDRD) Non-Af 123, BUN/Creatinine Ratio 6.2 L, Glucose 108 H, Calcium 9.0, Total Bilirubin 4.12 H, Direct Bilirubin 3.02 H, AST 74 H, ALT 95 H, Alkaline Phosphatase 154 H, Total Protein 6.2, Albumin 3.4 L, Globulin 2.8, Lipase 23 09/25/24 14:45: Lactic Acid < 1.0 09/26/24 05:40: WBC 9.1, RBC 3.63 L, Hgb 11.4 L, Hct 33.9 L, MCV 93.4, MCH 31.4, MCHC 33.6, RDW Std Deviation 45.0 H, RDW Coeff of Rebeca 13.1, Plt Count 195, MPV 10.5, Immature Gran % (Auto) 0.800, Neut % (Auto) 70.3 H, Lymph % (Auto) 22.4, [place] % (Auto) 5.1, Eos % (Auto) 1.0, Baso % (Auto) 0.4, Absolute Neuts (auto) 6.4, Absolute Lymphs (auto) 2.03, Nucleated RBC % 0, Sodium 139, Potassium 3.9, Chloride 108, Carbon Dioxide 21.9, Anion Gap 9, BUN 5, Creatinine 0.70, Estim Creat Clear Calc 136.89, Est GFR (MDRD) Non-Af 123, BUN/Creatinine Ratio 7.8 L, Glucose 77, Calcium 8.1, Total Bilirubin 0.99, Direct Bilirubin 0.66 H, AST 51 H, ALT 70 H, Alkaline Phosphatase 130 H, Total Protein 5.9, Albumin 3.0 L, Globulin 2.9, Lipase 1358 H Imaging Radiology Impression Endo Retro Cholangiopancreatogram 09/25/24 17:15 IMPRESSION: ERCP with placement of pancreatic and CBD stents. Reading Location: [id number]
[2024-09-26] MEDS: 0.9% Normal Saline (1000mL) 1,000 ML 250 ML IV (10:30)
[2024-09-26] MEDS: Pantoprazole Sodium 40 MG in 0.9% Normal Saline (100mL MB+) 100 ML 330 MG IV (10:41)
--- NOTE | 2024-09-26 10:54 | CASEMGMT ---
EDER BATISTA Assessment Face to Face with patient for initial transition planning/care coordination assessment. EDER BATISTA introduced self and role at [facility], pt voices understanding. Pt is A&Ox4 and is resting comfortably in bed and is calm. Care providers, pharmacy, and demographics verified. Admitting dx: ABD Pain PCP: Heather Ruby Specialists: Denies Preferred Pharmacy: [facility] Insurance: [employer] Prescription Benefit: Yes LNOK: Be Benavides (H) Living Arrangements: Pt lives with her and 2 children (Ages 4 & 1) in a 3 story home with one step to enter ADLs/IADLs: Ind Transportation: Hires drivers. Denies concerns DME: Denies all DME uses or needs HHC/SNF: Denies hx or needs Pt?s goal: Home Plan: Home, no additional needs. Pt states that she feels safe returning home today with her family and plans to hire a hole digger truck driver. Pt denies further questions or concerns at this time. Lissett Richter RN, CM
--- NOTE | 2024-09-26 11:18 | DCINST_ITS ---
Discharge Instructions Diet Discharge Diet: Light diet - advance as tolerated DC O2, CPAP, BIPAP needs Home O2 Discharge instructions: No Dressing / Incision Discharge Activity: Return to Normal Activity Weight Bearing Status: Weight bearing as tolerated Dressing / Incision Call your doctor if you observe: Fever of 101 or Higher, Coldness, Increased Lupillo n, Numbness or Tingling, Change in Color, Inability to urinate, Inability to have a bowel movement, Shortness of breath, Dizziness, Fainting spells, Swelling in the ankles, Chest pain, Prolonged hiccupping, Increased palpitations (irregular heartbeat) and Calf discomfort Follow Up Care When: IN 2 WEEKS Test Results: Test results from this visit will be discussed in further detail at your follow- up appointment, if applicable. Discharge Plan Admission Admit Date/Time: 09/25/24 16:14 Attending Provider: Carlin Negron Primary Care Provider: Heather Ruby Consulting Providers: Chandan Mayo; Ld Chacon Discharge Orders/Prescriptions Prescriptions: New sennosides-docusate sodium [Stimulant Laxative Plus] 8.6-50 mg Tablet 2 tab PO BID PRN PRN (Reason: Constipation) Qty: 0 0RF Prenatabs FA 29-1 mg Tablet 1 tab PO DAILY@1200 30 Days Qty: 30 3RF amoxicillin-pot clavulanate 875-125 mg tablet 1 tab PO BID 7 Days Qty: 14 0RF Referrals / Follow Up: Chandan Mayo MD [Med Staff - Active Staff] - Within 2 Weeks Heather Ruby DO [Primary Care Provider] - Within 2 Weeks (As scheduled) Ld Chacon DO [Med Staff - Active Staff] - Within 1 Month Disposition Disposition (needs filled in before D/C Order can be placed): Home, Self Care
--- NOTE | 2024-09-26 11:23 | PCM.DC.SUM ---
Providers Date of Admission: 09/25/24 Date of Discharge: 09/26/24 Primary Care Physician: Dr. Heather Ruby, Consultations 09/25/24 18:34 Consult: Gastroenterology Routine Consulting Provider: [facility] Reason for Consult: Choledocholithiasis EMERGENT Consult: No Notified: Yes Date Notified: 09/25/24 Time Notified: 16:16 Method of Notification: ED Physician Initiated Consult: General Surgery Routine Consulting Provider: Chandan Mayo Reason for Consult: Choledocholithiasis EMERGENT Consult: No Notified: Yes Date Notified: 09/25/24 Time Notified: 16:14 Method of Notification: ED Physician Initiated Reason For Visit: ABD PAIN Diagnosis Discharge Diagnosis (1) Choledocholithiasis: Status: Acute Code(s): K80.50 - Calculus of bile duct without cholangitis or cholecystitis without obstruction Plan The patient is a 24 y/o Anab[employer] F with history of biliary colic intermittently for about 10 years but does not see a doctor often came to ED with epigastric and right upper quadrant pain 09/23 approximately 30 minutes following her meals associated nausea, emesis and diaphoresis. [facility] she was delivered/induced on 09/24/2024 at 38.6 weeks admitted vaginal delivery and then transferred to ER. #1. Acute choledocholithiasis with significant hyperbilirubinemia, with cholangitis: Patient has Charcot destroyed with RUQ abdominal pain, jaundice and chills. Patient admitted to [facility]. She had ERCP with biliary sphincterotomy and complete removal of CBD stone and temporary stent in ventral pancreatic duct and CBD. Impression: - The entire biliary tree was dilated, with a stone causing an obstruction. - Choledocholithiasis was found. Complete removal was accomplished by biliary sphincterotomy and balloon extraction. - A pancreatic sphincterotomy was performed. - The ventral pancreatic duct was swept and nothing was found. - One temporary stent was placed into the ventral pancreatic duct. - A biliary sphincterotomy was performed. - The biliary tree was swept. - One temporary stent was placed into the common bile duct. Patient was evaluated by surgeon. As per the note, patient would like to follow-up with Dr. Shaq Richter at [place] [facility] for her cholecystectomy. He feels safe to be discharged today. Patient does not have fever. No leukocytosis. Platelet count normal. Electrolytes normal. Shows improvement in total bilirubin mainly direct hyperbilirubinemia from 4.1-0.99. Transaminases and ALP also improving. Lipase elevated probably due to manipulation of pancreatic duct and CBD. Waiting for GI opinion for discharge. I think patient can be discharged on Augmentin 875 mg twice daily and continue vitamin. Follow-up in GI office in 1 month. #2. Recent spontaneous vaginal delivery with breast-feeding status: on vitamin #3. Normocytic anemia, suspect related with : Admission hemoglobin 11.7, MCV 90.7 #4. DVT prophylaxis: SCDs. Medications at Discharge Home Medications amoxicillin 875 mg-potassium clavulanate 125 mg tablet 1 tab PO BID 1 week #14 tabs 09/26/24 vits,calcium no.78-iron fumarate-folic acid 29 mg-1 mg tablet (Prenatabs FA) 1 tab PO DAILY@1200 30 days #30 tabs 09/26/24 sennosides 8.6 mg-docusate sodium 50 mg tablet (Stimulant Laxative Plus) 2 tab PO BID PRN PRN Constipation #0 tabs 09/26/24 Physical Exam Narrative Seen and examined No fever, but chills in the [facility] Right upper quadrant pain has resolved. No dysuria Physical exam General: Alert, Oriented x3, Cooperative HEENT: Icterus present. Atraumatic, PERRLA, EOMI, Normocephalic Oral: Oral mucosa moist no Gingival or Mucosal Lesions/ Ulcerations Neck: Supple, No JVD, Negative Carotid Bruits Chest wall/Lungs: Air entry diminished in bilateral lung bases. No crepitation/rhonchi Cardiovascular: Regular rate, Regular Rhythm, Normal S1, Normal S2, No M/G/R Abdomen: Bowel Sounds Present, Soft, Non Tender, Non-Distended : No dysuria. No renal angle tenderness. No suprapubic tenderness. Extremities: No edema, Capillary Refill Less than 3 Seconds Skin: No rashes, No breakdown Musculoskeletal: No Tenderness to Palpation of Joints or Extremities Neurological: Cranial nerves II-XII grossly intact, DTR 2+/4. No acute focal neurological deficit. Psych/Mental Status: Normal Affect, Appropriate. Weight / BMI Weight Weight: 208 lb 1.862 oz Body Mass Index (BMI) 35.5 ABG / Lab / Microbiology Data 09/26/24 05:40 09/26/24 05:40 Laboratory: Laboratory Results - last 24 hr 09/25/24 14:40: WBC 10.2, RBC 3.75 L, Hgb 11.7 L, Hct 34.0 L, MCV 90.7, MCH 31.2, MCHC 34.4, RDW Std Deviation 42.6, RDW Coeff of Rebeca 13.0, Plt Count 177, MPV 10.4, Immature Gran % (Auto) 0.900, Neut % (Auto) 77.6 H, Lymph % (Auto) 15.8 L, Ralls % (Auto) 4.9, Eos % (Auto) 0.4, Baso % (Auto) 0.4, Absolute Neuts (auto) 8.0 H, Absolute Lymphs (auto) 1.62, Nucleated RBC % 0, Sodium 137, Potassium 3.6, Chloride 104, Carbon Dioxide 22.6, Anion Gap 10, BUN 4, Creatinine 0.70, Est GFR (MDRD) Non-Af 123, BUN/Creatinine Ratio 6.2 L, Glucose 108 H, Calcium 9.0, Total Bilirubin 4.12 H, Direct Bilirubin 3.02 H, AST 74 H, ALT 95 H, Alkaline Phosphatase 154 H, Total Protein 6.2, Albumin 3.4 L, Globulin 2.8, Lipase 23 09/25/24 14:45: Lactic Acid < 1.0 09/26/24 05:40: WBC 9.1, RBC 3.63 L, Hgb 11.4 L, Hct 33.9 L, MCV 93.4, MCH 31.4, MCHC 33.6, RDW Std Deviation 45.0 H, RDW Coeff of Rebeca 13.1, Plt Count 195, MPV 10.5, Immature Gran % (Auto) 0.800, Neut % (Auto) 70.3 H, Lymph % (Auto) 22.4, Ralls % (Auto) 5.1, Eos % (Auto) 1.0, Baso % (Auto) 0.4, Absolute Neuts (auto) 6.4, Absolute Lymphs (auto) 2.03, Nucleated RBC % 0, Sodium 139, Potassium 3.9, Chloride 108, Carbon Dioxide 21.9, Anion Gap 9, BUN 5, Creatinine 0.70, Estim Creat Clear Calc 136.89, Est GFR (MDRD) Non-Af 123, BUN/Creatinine Ratio 7.8 L, Glucose 77, Calcium 8.1, Total Bilirubin 0.99, Direct Bilirubin 0.66 H, AST 51 H, ALT 70 H, Alkaline Phosphatase 130 H, Total Protein 5.9, Albumin 3.0 L, Globulin 2.9, Lipase 1358 H Radiography Diagnostic Testing: Radiology Impression Endo Retro Cholangiopancreatogram 09/25/24 17:15 IMPRESSION: ERCP with placement of pancreatic and CBD stents. Reading Location: [id number] D/C Instructions Discharge Diet: Light diet - advance as tolerated Weight Bearing Status: Weight bearing as tolerated Call your doctor if you observe: Fever of 101 or Higher, Coldness, Increased Pain, Numbness or Tingling, Change in Color, Inability to urinate, Inability to have a bowel movement, Shortness of breath, Dizziness, Fainting spells, Swelling in the ankles, Chest pain, Prolonged hiccupping, Increased palpitations (irregular heartbeat) and Calf discomfort DC O2, CPAP, BIPAP Needs Home O2 Discharge instructions: No When: IN 2 WEEKS Meaningful Use Info Meaningful Use Meaningful Use Diagnoses (Choose all that apply): None applicable Ischemic Stroke Statin Dosing Therapy Reference: STATIN DOSE THERAPY REFERENCE: * Patients > 75 years receive moderate or high dose statin therapy. * Patients 75 years or YOUNGER should receive HIGH intensity statin dose unless contraindicated. You will be required to document reason for non-treatment if statin daily dose does not meet guidelines. HIGH DOSE STATIN THERAPY DAILY Atorvastatin > than or = to 40 mg Rosuvastatin > than or = to 20 mg Amlodipine + Atorvastatin > than or = to 2.5/40 mg Ezetimibe + Simvastatin 10/80 mg Simvastatin 80mg Discharge Plan Admission Admit Date/Time: 09/25/24 16:14 Attending Provider: Carlin Negron Primary Care Provider: Heather Ruby Consulting Providers: Chandan Mayo; Friend,Ld Discharge Orders/Prescriptions Prescriptions: New sennosides-docusate sodium [Stimulant Laxative Plus] 8.6-50 mg Tablet 2 tab PO BID PRN PRN (Reason: Constipation) Qty: 0 0RF Prenatabs FA 29-1 mg Tablet 1 tab PO DAILY@1200 30 Days Qty: 30 3RF amoxicillin-pot clavulanate 875-125 mg tablet 1 tab PO BID 7 Days Qty: 14 0RF Referrals / Follow Up: Chandan Mayo MD [Med Staff - Active Staff] - Within 2 Weeks Heather Ruby DO [Primary Care Provider] - Within 2 Weeks (As scheduled) Ld Chacon DO [Med Staff - Active Staff] - Within 1 Month Disposition Disposition (needs filled in before D/C Order can be placed): Home, Self Care Charges/Coding Visit Charges Inpatient E&M: 03270 Disch Hosp >30min
[2024-09-26] MEDS: Prenatal Vits Tablet 1 TABLET PO (11:24)
[2024-09-26 11:26] VITALS: BP 96/61; PULSE 93; RESP 18; TEMP 36.9; O2SAT 98
--- NOTE | 2024-09-26 12:35 | NURSING ---
[facility] called [facility] to speak with RN Mahendra about patient. RN reports patient is doing well and currently does not need anything from . RN encouraged to have patient call if anything is needed.
[2024-09-26 13:51] VITALS: BP 114/72; PULSE 93; RESP 18; TEMP 36.8; O2SAT 96
== END 2024-09-26 17:48 | disposition home or self-care (01) | DRG 832 ==
LOC: ED 15:23 → SDC 16:10 → ACINP 16:11 → SDC 17:46 → MS3 17:46
PROVIDERS: Family Medicine; Admitting Provider Internal Medicine Gastroenterology; Emergency Provider Surgery; PCP Obstetrics & Gynecology Gynecology; Visit Provider Internal Medicine
PROC: 0FC98ZZ Extirpation of Matter from Common Bile Duct, Via Natural or Artificial Opening Endoscopic (ICD-10-PCS; CPT 43260; principal; 2024-09-25 15:30)
DX: O26.613 Liver and biliary tract disorders in pregnancy, third trimester (principal); K80.63 Calculus of gallbladder and bile duct with acute cholecystitis with obstruction; Z3A.38 38 weeks gestation of pregnancy
CPT/HCPCS: 36415; 74330; 76000; 80048; 80076; 83605; 83690; 85025; 94668; 99284; C2625; A4216; J2405

== ENCOUNTER 2024-10-20 17:23 | Inpatient (IN) | payer OTHER, SELFPAY ==
[2024-10-20] VITALS (8 sets, daily range): BP systolic 92–120; BP diastolic 61–76; PULSE 89–112; RESP 16–20; TEMP 37.1–37.9; O2SAT 95–100; BMI 34.1; BMI 31.8
--- NOTE | 2024-10-20 17:47 | US_ITS ---
PROCEDURE: GALLBLADDER 10/20/2024 REASON FOR EXAM: PAIN COMPARISON: None FINDINGS: Liver: Mild hepatomegaly, craniocaudal length 17.5 cm. No focal lesion. Gallbladder: Mildly distended. Positive sonographic Huntley's sign. Cholelithiasis within the neck and fundus. Wall thickening, measuring 7 mm. Small amount of layering sludge. Small amount of pericholecystic fluid. Common bile duct: Slightly dilated 5 mm. Pancreas: Visualized portions are sonographically unremarkable. Other: Right kidney: 11.9 cm. No calculi or hydronephrosis. US/Gallbladder IMPRESSION: Moderately distended gallbladder, with cholelithiasis, small pericholecystic fl uid, wall thickening and positive sonographic Huntley's sign, compatible with acute cholecystitis. Reading Location: [facility]
--- NOTE | 2024-10-20 17:47 | EDS_ITS ---
HPI History of Present Illness Chief Complaint: Fever Informant: patient and spouse/S.O. Onset/Context/Timing Onset: Days Context: Gradual Onset Timing: Intermittent Current Severity: Gone Maximum Severity: Mild Narrative Narrative: 24-year-old female history of gallstones. Recent GI consult for gallstone resection and biliary stent. Prior appendectomy. Patient delivered vaginal livery about 4 weeks ago at 30 weeks. She had gallstones with biliary colic was transferred here from [facility]. Dr. Chacon did ERCP remove several gallstones. Placed a stent. Patient has been doing well. Last he started having intermittent upper abdominal pain. Today his pain- free but had a fever at home as high as 1-2.5. Denies nausea or vomiting. No diarrhea. No dysuria. No heavy vaginal bleeding or pelvic pain. No vaginal discharge. Prior similar symptoms: Yes Recent Illness/Hospital[facility]: [facility] Medical History Biliary colic Allergy/AdvReac Type Severity Reaction Status Date / Time No Known Allergies Allergy Verified 10/20/24 17:26 Family History Mother No problems noted. Father No problems noted. Surgical History Hx of appendectomy Social History household members: spouse, children and other details: 2 older children at home, 1 miscarriage, 1 09/24/24. Smoking Status: Never smoker alcohol intake: never substance use type: does not use ROS ROS ED ROS Narrative Abdominal pain. Currently pain-free. Fever. Review of Systems ROS Unobtainable: Denies due to encephalopathy Constitutional Constitutional ED: Reports fever(s); Denies chills Eyes Eyes: Denies blurry vision ENT ENT ED: Denies ear pain Cardiovascular Cardiovascular: Denies chest pain Respiratory/Chest Respiratory/Chest: Denies cough or dyspnea Gastrointestinal Gastrointestinal: Reports abdominal pain; Denies constipation, melena, nausea or vomiting Genitourinary Genitourinary ED: Denies dysuria or hematuria Musculoskeletal Musculoskeletal: Denies arthralgias or back pain Integumentary Denies abscess Neurologic Neurologic: Denies headache(s) Psychiatric Psychiatric: Denies anxiety Endocrine Endocrinology: Denies cold intolerance Hematologic/Lymphatic Hematologic/Lymphatic: Reports none Allergic/Immunologic Allergic/Immunologic ED: Denies mouth swelling, tongue swelling or urticaria EXAM Physical Exam Narrative Exam Narrative: 24-year-old female sitting upright in bed. Vital signs are stable she has a low-grade temperature 100.2. She does not look septic or toxic in any distress. Pulse ox 100% on room air no signs hypoxia. at bedside. H EENT exam pupils round react light. Moist mucous members. Neck nontender no JVD. No lymphadenopathy. Lungs clear to auscultation bilaterally. Heart regular rhythm rate about 105 no murmur. Chest wall ribs nontender. Abdomen soft, nontender, nondistended normal bowel sounds peritoneal signs. There is no localized tenderness. There is no hernia or mass. There is no right upper quadrant tenderness or Huntley sign. Right lower quadrant is nontender. No distention. No rash. No obstruction. Very benign abdominal exam. Completely nontender. Moving all 4 extremities. Nontender no edema. Back nontender. Skin no cellulitis. Neurologically she is awake and alert. Const Vital Signs: 10/20/24 17:26 10/20/24 17:30 10/20/24 17:54 Temperature 100.2 F H 100.2 F H Temperature Source Oral Oral Pulse Rate 109 H 109 H Respiratory Rate 18 18 Respiratory Effort Normal Respiratory Pattern Normal Blood Pressure 120/76 120/76 Blood Pressure Mean 90 90 Pulse Ox 100 100 Oxygen Delivery Method Room Air Room Air 10/20/24 19:17 10/20/24 19:20 10/20/24 20:08 Temperature 99.2 F H 99.2 F H 99 F Temperature Source Oral Oral Oral Pulse Rate 98 98 112 H Respiratory Rate 20 H 20 H 18 Respiratory Effort Respiratory Pattern Blood Pressure 108/63 108/63 92/61 Blood Pressure Mean 78 78 71 Pulse Ox 99 99 95 Oxygen Delivery Method Room Air Room Air Room Air Positive well nourished and well developed; Negative for cachectic, contractures or unkempt General Appearance ED: well developed and NAD; Negative for unkempt, cachectic, contractures, cyanotic, diaphoretic or pallor Nutritional Appearance: Negative for cachectic HEENT Reports moist mucous membranes Negative for trauma or tenderness Eyes PERRL and EOMs intact bilaterally Neck no lymphadenopathy, supple and no JVD Chest Wall inspection of chest normal and palpation of chest normal Resp normal respiratory effort and clear to auscultation bilaterally Effort and Inspection: Negative for retractions Auscultation: Negative for rales, rhonchi, wheezes or diminished lung sounds Cardio regular rate, regular rhythm, S1 normal heart sound, S2 normal heart sound and no murmurs GI normal to inspection, nondistended, normoactive bowel sounds, non-tender, non- distended and no masses Auscultation: normoactive bowel sounds Palpation: soft; Negative for tender, guarding, splenomegaly, mass or rebound tenderness present Back/Spine no CVA tenderness General Back: Negative for CVA tenderness Cervical Spine: Negative for cervical spine tenderness Thoracic Spine / Upper Back: Negative for thoracic spinal tenderness or paraspinal muscle tenderness Lumbar Spine / Lower Back: Negative for lumbar spinal tenderness Extremity normal to inspection General Extremety ED: Negative for edema or tenderness General Extremity: Negative for edema Neuro oriented x3, CN's II-XII intact bilaterally and no sensory deficits noted Sensorium / Orientation: alert; Negative for orientation impaired Sensory Exam: No sensory level loss detected Motor Exam: strength 5/5 throughout; Negative for general weakness or strength abnormal Psych mental status grossly normal Appearance: Negative for unkempt Attitude: No agitated Mood & Affect: Negative for depressed, anxious or tearful Skin no rashes or lesions noted, no wounds and skin turgor normal General Skin Exam: elasticity normal; Negative for jaundice or pallor Lesions: No lesion noted Trauma: Negative for abrasion Wounds: Negative for wounds noted MDM MDM MDM Narrative Medical decision making narrative: 24-year-old female status post 4 weeks ago. Complaining of intermittent abdominal pain for about a week. Today had a fever about 1 or 2.5. Denies vomiting or diarrhea. No dysuria. Currently is pain-free. Had a recent ERCP with gallstone removal and stent placement. Exam is very benign. Ultrasound of right upper quadrant screening labs to be obtained. She does not need anything for pain. She will be given Tylenol for low-grade temperature 100.2. Repeat exam patient is doing well at 7:10 PM. We have gone over her test results. She is having no urinary symptoms. A culture will be sent. Her labs are benign otherwise. Awaiting the gallbladder ultrasound result. Repeat abdominal exam shows right upper quadrant abdominal pain with deep palpation. Clinically she looks well. Ultrasound is consistent with possible acute cholecystitis. I have general surg ahsan Dr. Joya on page. Will discuss admission. Patient will be treated with pain medication. And IV antibiotics. History & Record Review Discussion w/independent historian: Patient and Family Additional record(s) reviewed:: Prior inpatient record, Prior outpatient record, Prior ED visit and Prior labs Lab Data Attestation: I reviewed the patient's lab results. Lab results narrative: CBC shows a normal white count 10.6. H&H 11.9 and 35.2. Glucose 252. Electrolytes show sodium 137. Gap 15. Normal BUN 9 creatinine 0.8. Glucose 74. Liver enzymes normal none are elevated. Lipase is normal at 13. Urinalysis shows 5-10 red cells. 5-10 white cells. 1+ bacteria. 50 occult blood. No nitrates. She is not having any urinary symptoms. A culture will be sent. Right upper quadrant ultrasound shows mildly distended gallbladder. Gallstones. Small cholecystic fluid. Wall thickening. Consistent with acute cholecystitis. Labs: Laboratory Results - last 24 hr 10/20/24 10/20/24 17:55 18:00 WBC 10.6 RBC 3.90 L Hgb 11.9 L Hct 35.2 L MCV 90.3 MCH 30.5 MCHC 33.8 RDW Std Deviation 38.0 RDW Coeff of Rebeca 11.5 L Plt Count 252 MPV 10.1 Immature Gran % (Auto) 0.600 Neut % (Auto) 75.5 H Lymph % (Auto) 17.3 L [place] % (Auto) 4.9 Eos % (Auto) 1.2 Baso % (Auto) 0.5 Absolute Neuts (auto) 8.0 H Absolute Lymphs (auto) 1.83 Nucleated RBC % 0 Sodium 137 Potassium 3.8 Chloride 101 Carbon Dioxide 20.9 L Anion Gap 15 BUN 9 Creatinine 0.82 Estim Creat Clear Calc 114.12 Est GFR (MDRD) Non-Af 102 BUN/Creatinine Ratio 11.6 Glucose 74 Calcium 9.1 Total Bilirubin 0.51 AST 15 ALT 11 Alkaline Phosphatase 102 Total Protein 7.2 Albumin 3.7 Globulin 3.5 Albumin/Globulin Ratio 1.1 Lipase 13 Urine Color Yellow Urine Clarity Sl. Cloudy Urine pH 6.0 Ur Specific [place] 1.020 Urine Protein 30 H Urine Glucose (UA) Normal Urine Ketones 150 A* Urine Occult Blood 50 H Urine Nitrite Negative Urine Bilirubin Negative Urine Urobilinogen 1 H Ur Leukocyte Esterase 25 H Urine RBC 5-10 SEEN Urine WBC 5-10 SEEN Ur Squamous Epith Cells 0-5 SEEN Urine Bacteria 1+ Urine Mucus 0 SEEN Radiography Diagnostic Testing: Clinical Impression(s) from Imaging Studies Gallbladder Ultrasound 10/20/24 17:47 IMPRESSION: Moderately distended gallbladder, with cholelithiasis, small pericholecystic fluid, wall thickening and positive sonographic Huntley's sign, compatible with acute cholecystitis. Reading Location: [facility] Discharge Plan Dx/Rx/DC Orders Clinical Impression: Abdominal pain, Fever, Acute cholecystitis, Gallstone Disposition Disposition: Acute Care Hospital [facility]
[2024-10-20] MEDS: Acetaminophen 500 MG Tablet 1000 MG PO ×2 (17:51→21:46)
[2024-10-20 18:06] LABS: Mucous, Urine 0 SEEN /hpf (<or=2+)
[2024-10-20 18:10] LABS: Absolute Lymphocyte Count 1.83 X10^3/uL (0.83-4.51); Basophil# 0.05 X10^3/uL; Basophil% 0.5 % (0-1); Eosinophil# 0.13 X10^3/uL; Eosinophils% 1.2 % (0-5); Hematocrit 35.2 % (37-47); Hemoglobin 11.9 g/dL (12.0-15.0); Lymphocyte # 1.83 X10^3/ul (0.83-4.51); Lymphocyte % 17.3 % (19-41); Mean Corp Hgb Conc 33.8 g/dL (32-36); Mean Corpuscular Hgb 30.5 pg (27.0-32.0); Mean Corpuscular Volume 90.3 fL (81-99); Mean Platelet Vol. 10.1 fl (6.2-12.0); Monocyte# 0.52 X10^3/uL; Monocyte% 4.9 % (0-10); NRBC Flagged by Analyzer 0 % (0-5); Neutrophil # 7.97 X10^3/uL (2.7-7.7); Neutrophil % 75.5 % (47-70); Platelet Count 252 K/mm3 (150-450); RBC Distribution Width CV 11.5 % (11.6-14.6); White Blood Count 10.6 K/mm3 (4.4-11.0)
[2024-10-20 18:12] LABS: Color, Urine Yellow (Yellow); Glucose, Dipstick Normal (Normal); Leukocyte Esterase-Dipstick 25 /ul (Negative); Nitrite-Dipstick Negative (Negative); Occult Blood-Urine 50 /ul (Negative); Protein-Dipstick 30 mg/dl (Negative); Urine Bilirubin Dipstick Negative (Negative); Urine Clarity Sl. Cloudy (Clear); Urine Urobilinogen 1 mg/dl (Normal)
[2024-10-20 18:31] LABS: Ketone-Dipstick 150 mg/dl (Negative)
[2024-10-20 18:37] LABS: Bacteria 1+ /hpf (None Seen); Red Blood Cells-Urine 5-10 SEEN /hpf (0-5); Squamous Epithelial Cells - UA 0-5 SEEN /hpf (5-10)
[2024-10-20 18:38] LABS: White Blood Cells 5-10 SEEN /hpf (0-5)
[2024-10-20 18:47] LABS: ALB/GLOB Ratio 1.1 RATIO (0.9-2.4); AST(SGOT) 15 U/L (<=31); Alanine Aminotransfer ALT/SGPT 11 U/L (<=34); Albumin, Serum 3.7 g/dL (3.5-5.0); Alkaline Phosphatase 102 U/L (35-104); Anion Gap 15 (5-15); BUN 9 mg/dL (4-19); BUN/Creat Ratio 11.6 RATIO (10-20); Calcium,Total 9.1 mg/dL (7.6-11.0); Carbon Dioxide 20.9 mmol/L (21.0-32.0); Chloride 101 mmol/L (98-108); Creatinine, Serum 0.82 mg/dL (0.70-1.20); EST Glomerular Filtration Rate 102 (>60); Estimated Creatinine Clearance 114.12 ml/min (50-250); Globulin 3.5 g/dL (2.2-4.2); Glucose 74 mg/dL (70-99); Lipase 13 U/L (13-75); Potassium 3.8 mmol/L (3.3-5.1); Protein, Total 7.2 g/dL (5.9-8.4); Sodium Level 137 mmol/L (133-145); Total Bilirubin 0.51 mg/dL (0.00-1.30)
[2024-10-20] MEDS: Ondansetron 4 MG/2 ML Vial IV (20:38)
[2024-10-20] MEDS: Ketorolac 15 MG/ML Vial IV (20:39)
[2024-10-20] MEDS: Piperacil/Tazobactam 4.5 GM in 0.9% Normal Saline (100mL MB+) 100 ML IV (21:01)
[2024-10-20] MEDS: Dextrose 5%/0.9% NaCl 1,000 ML 90 ML IV (21:46)
[2024-10-21] VITALS (17 sets, daily range): BP systolic 93–134; BP diastolic 59–82; PULSE 74–104; RESP 14–20; TEMP 36.7–38; O2SAT 93–99
[2024-10-21] MEDS: Acetaminophen 500 MG Tablet 1000 MG PO ×2 (04:05→21:11)
[2024-10-21] MEDS: Ondansetron 4 MG/2 ML Vial IV (04:05)
[2024-10-21] MEDS: oxyCODONE 5 MG Tablet PO (04:05)
--- NOTE | 2024-10-21 05:00 | EKG12_ITS ---
Test Reason : AM EKG Blood Pressure : */* mmHG Vent. Rate : 89 BPM Atrial Rate : 89 BPM P-R Int : 152 ms QRS Dur : 94 ms QT Int : 360 ms P-R-T Axes : 66 84 51 degrees QTcB Int : 438 ms Normal sinus rhythm Normal ECG No previous ECGs available Confirmed by EDWARD RAUSCH MD ([id number]), tape editor JONAS BARNES ([id number]) on 10/26/2024 9:34:49 AM Referred By: SONIA Confirmed By: EDWARD RAUSCH MD
[2024-10-21] MEDS: Piperacil/Tazobactam 3.375 GM in 0.9% Normal Saline (50mL MB+) 50 ML IV ×3 (06:11→21:02)
[2024-10-21] MEDS: Morphine 2 MG/ML Syringe IV ×3 (06:18→21:19)
[2024-10-21 06:40] LABS: Absolute Lymphocyte Count 1.15 X10^3/uL (0.83-4.51); Absolute Neutrophil Count 6.5 X10^3/uL (2.0-7.7); Basophil# 0.03 X10^3/uL; Basophil% 0.4 % (0-1); Eosinophil# 0.34 X10^3/uL; Hematocrit 34.1 % (37-47); Hemoglobin 11.5 g/dL (12.0-15.0); Lymphocyte # 1.15 X10^3/ul (0.83-4.51); Lymphocyte % 13.5 % (19-41); Mean Corp Hgb Conc 33.7 g/dL (32-36); Mean Corpuscular Hgb 30.6 pg (27.0-32.0); Mean Corpuscular Volume 90.7 fL (81-99); Mean Platelet Vol. 10.1 fl (6.2-12.0); Monocyte% 5.9 % (0-10); NRBC Flagged by Analyzer 0 % (0-5); Neutrophil # 6.45 X10^3/uL (2.7-7.7); Neutrophil % 75.6 % (47-70); Platelet Count 217 K/mm3 (150-450); RBC Distribution Width CV 11.6 % (11.6-14.6); RBC Distribution Width SD 38.5 fl (35.1-43.9); Red Blood Count 3.76 M/mm3 (4.2-5.4); White Blood Count 8.5 K/mm3 (4.4-11.0)
[2024-10-21 06:50] LABS: Prothrombin Time (Protime)PT. 13.4 SECONDS (11.7-14.9)
[2024-10-21 06:51] LABS: Partial Thromboplast Time 35.3 Seconds (24.1-36.2)
[2024-10-21 07:12] LABS: ALB/GLOB Ratio 1.1 RATIO (0.9-2.4); AST(SGOT) 13 U/L (<=31); Alanine Aminotransfer ALT/SGPT 10 U/L (<=34); Albumin, Serum 3.4 g/dL (3.5-5.0); Alkaline Phosphatase 95 U/L (35-104); Anion Gap 12 (5-15); BUN 8 mg/dL (4-19); BUN/Creat Ratio 12.2 RATIO (10-20); Calcium,Total 8.7 mg/dL (7.6-11.0); Carbon Dioxide 23.1 mmol/L (21.0-32.0); Chloride 102 mmol/L (98-108); Creatinine, Serum 0.68 mg/dL (0.70-1.20); EST Glomerular Filtration Rate 124 (>60); Estimated Creatinine Clearance 142.59 ml/min (50-250); Globulin 3.1 g/dL (2.2-4.2); Glucose 69 mg/dL (70-99); Potassium 3.3 mmol/L (3.3-5.1); Protein, Total 6.5 g/dL (5.9-8.4); Sodium Level 137 mmol/L (133-145); Total Bilirubin 0.46 mg/dL (0.00-1.30)
--- NOTE | 2024-10-21 07:54 | HP.PCM_ITS ---
[facility] - General General Date of Admission: 10/20/24 Date of Service: 10/21/24 Chief Complaint: Right upper quadrant abdominal pain HPI Narrative SUSANNA CROWLEY, is a 24 F who presents with a 6 day history of right upper quadrant abdominal pain and fever. Patient notes she has been having intermittent right upper quadrant pain for 9 years. She notes since having her three children the episodes have become increased in intensity of pain and closer together. Patient was recently induced and delivered a healthy baby girl approximately 4 weeks ago. She notes that her liver enzymes were elevated, which prompted delivery and then she went to the ED at [facility]. She was transferred to [facility] with choledocholithiasis on 09/25. Dr. Chacon performed an ERCP on 09/25 with several gallstones being removed and stent placement in the CBD and pancreatic duct. Patient notes when she came to the hospital she was noted to be jaundice. She states following the procedure and discharge, she followed up with Dr. Richter, general surgery. Patient notes she was scheduled to have her gallbladder removed in January. Dr. Richter had requested the stents be removed prior to the patient having her gallbladder removed. Patient was evaluated by I, who scheduled her for stent removal at the end of November. Patient stated last she had increased pain similar to the pain she was experiencing just prior to having the ERCP, which prompted her to proceed to [facility] ED. Patient noted they did labs and gave her pain medication and discharged to her to home. She stated over the weekend she developed fevers. She noted her fever was as high as 102.5 degrees Fahrenheit. She noted anything she eats causes pain in the right upper quadrant. She stated between the pain and fevers, she presented to our ED in hopes to have her gallbladder removed. She denies any current urinary issues. She notes having loose stools. She denies any cardiac or pulmonary history. She denies any complications or side effects from anesthesia. She notes previous open appendectomy with a midline incision at the age of 8. RUQ u/s was obtained and demonstrated: Moderately distended gallbladder, with cholelithiasis, small pericholecystic fluid, wall thickening and positive sonographic Huntley's sign, compatible with acute cholecystitis. WBC 8.5, Hgb 11.5, Hct 34.1, Plt 217. Liver enzymes are normal. [facility] Medical History Biliary colic Home Medications ?Medication ?Instructions ?Recorded ?Last Taken ?Type NK 10/20/24 Unknown History Allergy/AdvReac Type Severity Reaction Status Date / Time No Known Allergies Allergy Verified 10/20/24 17:26 Family History Mother No problems noted. Father No problems noted. Surgical History Hx of appendectomy Social History household members: spouse, children and other details: 2 older children at home, 1 miscarriage, 1 09/24/24. Smoking Status: Never smoker alcohol intake: never substance use type: does not use ROS Constitutional Constitutional: Reports systems reviewed and no addt'l complaints, except as documented Eyes Eyes: Reports systems reviewed and no addt'l complaints, except as documented ENT HEENT: Reports systems reviewed and no addt'l complaints, except as documented Cardiovascular Cardiovascular: Reports systems reviewed and no addt'l complaints, except as documented Respiratory/Chest Respiratory/Chest: Reports systems reviewed and no addt'l complaints, except as documented Gastrointestinal Gastrointestinal: Reports systems reviewed and no addt'l complaints, except as documented Genitourinary Genitourinary: Reports systems reviewed and no addt'l complaints, except as documented Musculoskeletal Musculoskeletal: Reports systems reviewed and no addt'l complaints, except as documented Integumentary Integumentary: Reports systems reviewed and no addt'l complaints, except as documented Neurologic Neurologic: Reports systems reviewed and no addt'l complaints, except as documented Psychiatric Psychiatric: Reports systems reviewed and no addt'l complaints, except as documented Endocrine Endocrinology: Reports systems reviewed and no addt'l complaints, except as documented Hematologic/Lymphatic Hematologic/Lymphatic: Reports systems reviewed and no addt'l complaints, except as documented Allergic/Immunologic Allergic/Immunologic: Reports systems reviewed and no addt'l complaints, except as documented Vital Signs Vital Signs Vital Signs: 10/20/24 17:26 10/20/24 17:30 10/20/24 17:54 Temperature 100.2 F H 100.2 F H Temperature Source Oral Oral Pulse Rate 109 H 109 H Respiratory Rate 18 18 Respiratory Effort Normal Respiratory Depth Respiratory Pattern Normal Blood Pressure 120/76 120/76 Blood Pressure Mean 90 90 Pulse Ox 100 100 Oxygen Delivery Method Room Air Room Air 10/20/24 19:17 10/20/24 19:20 10/20/24 20:08 Temperature 99.2 F H 99.2 F H 99 F Temperature Source Oral Oral Oral Pulse Rate 98 98 112 H Respiratory Rate 20 H 20 H 18 Respiratory Effort Respiratory Depth Respiratory Pattern Blood Pressure 108/63 108/63 92/61 Blood Pressure Mean 78 78 71 Pulse Ox 99 99 95 Oxygen Delivery Method Room Air Room Air Room Air 10/20/24 20:42 10/20/24 21:00 10/20/24 21:23 Temperature 99 F 99 F 98.8 F Temperature Source Oral Oral Pulse Rate 89 89 95 Respiratory Rate 16 16 16 Respiratory Effort Respiratory Depth Respiratory Pattern Blood Pressure 110/73 109/71 109/70 Blood Pressure Mean 85 83 83 Pulse Ox 96 96 98 Oxygen Delivery Method Room Air Room Air 10/20/24 21:23 10/21/24 04:00 Temperature 98.0 F Temperature Source Oral Pulse Rate 74 Respiratory Rate 14 Respiratory Effort Normal Non-Labored Respiratory Depth Normal Respiratory Pattern Normal Blood Pressure 93/59 L Blood Pressure Mean 70 Pulse Ox 99 Oxygen Delivery Method Room Air Room Air Weight Weight: 197 lb 8.547 oz Body Mass Index (BMI) 31.8 Physical Exam Const alert, oriented x3 and no apparent distress HEENT normocephalic and head/scalp atraumatic Eyes PERRL Neck full ROM Resp normal respiratory effort and clear to auscultation bilaterally Cardio regular rate and regular rhythm GI GI Narrative: Abdomen- soft, nondistended. Tenderness in the RUQ. Positive Huntley's sign. Well-healed midline incision no CVA tenderness Back/Spine no CVA tenderness Extremity normal to inspection Skin no rashes or lesions noted Neuro no focal motor deficits and no sensory deficits noted Psych mental status grossly normal, thought process normal, cooperative, affect normal and activity/motor behavior normal Results Lab / Micro Data 10/21/24 05:20 10/21/24 05:20 Labs: Laboratory Results - last 24 hr 10/20/24 17:55: WBC 10.6, RBC 3.90 L, Hgb 11.9 L, Hct 35.2 L, MCV 90.3, MCH 30.5, MCHC 33.8, RDW Std Deviation 38.0, RDW Coeff of Rebeca 11.5 L, Plt Count 252, MPV 10.1, Immature Gran % (Auto) 0.600, Neut % (Auto) 75.5 H, Lymph % (Auto) 17.3 L, [place] % (Auto) 4.9, Eos % (Auto) 1.2, Baso % (Auto) 0.5, Absolute Neuts (auto) 8.0 H, Absolute Lymphs (auto) 1.83, Nucleated RBC % 0, Sodium 137, Potassium 3.8, Chloride 101, Carbon Dioxide 20.9 L, Anion Gap 15, BUN 9, Creatinine 0.82, Estim Creat Clear Calc 114.12, Est GFR (MDRD) Non-Af 102, BUN/Creatinine Ratio 11.6, Glucose 74, Calcium 9.1, Total Bilirubin 0.51, AST 15, ALT 11, Alkaline Phosphatase 102, Total Protein 7.2, Albumin 3.7, Globulin 3.5, Albumin/Globulin Ratio 1.1, Lipase 13 10/20/24 18:00: Urine Color Yellow, Urine Clarity Sl. Cloudy, Urine pH 6.0, Ur Specific [place] 1.020, Urine Protein 30 H, Urine Glucose (UA) Normal, Urine Ketones 150 A*, Urine Occult Blood 50 H, Urine Nitrite Negative, Urine Bilirubin Negative, Urine Urobilinogen 1 H, Ur Leukocyte Esterase 25 H, Urine RBC 5-10 SEEN, Urine WBC 5-10 SEEN, Ur Squamous Epith Cells 0-5 SEEN, Urine Bacteria 1+, Urine Mucus 0 SEEN 10/21/24 05:20: WBC 8.5, RBC 3.76 L, Hgb 11.5 L, Hct 34.1 L, MCV 90.7, MCH 30.6, MCHC 33.7, RDW Std Deviation 38.5, RDW Coeff of Rebeca 11.6, Plt Count 217, MPV 10.1, Immature Gran % (Auto) 0.600, Neut % (Auto) 75.6 H, Lymph % (Auto) 13.5 L, [place] % (Auto) 5.9, Eos % (Auto) 4.0, Baso % (Auto) 0.4, Absolute Neuts (auto) 6.5, Absolute Lymphs (auto) 1.15, Nucleated RBC % 0, PT 13.4, INR 1.0, APTT 35.3, Sodium 137, Potassium 3.3, Chloride 102, Carbon Dioxide 23.1, Anion Gap 12, BUN 8, Creatinine 0.68 L, Estim Creat Clear Calc 142.59, Est GFR (MDRD) Non- Af 124, BUN/Creatinine Ratio 12.2, Glucose 69 L, Calcium 8.7, Total Bilirubin 0.46, AST 13, ALT 10, Alkaline Phosphatase 95, Total Protein 6.5, Albumin 3.4 L, Globulin 3.1, Albumin/Globulin Ratio 1.1 Imaging Radiology Impression Gallbladder Ultrasound 10/20/24 17:47 IMPRESSION: Moderately distended gallbladder, with cholelithiasis, small pericholecystic fluid, wall thickening and positive sonographic Huntley's sign, compatible with acute cholecystitis. [facility] & Plan Assessment/Plan (1) Acute cholecystitis: (2) History of biliary stent insertion: (3) Abdominal pain: QUALIFIERS: Abdominal location: right upper quadrant Qualified Code(s): R10.11 - Right upper quadrant pain (4) Gallstone: QUALIFIERS: Cholecystitis presence: with cholecystitis C holecystitis acuity: acute Biliary obstruction: without biliary obstruction Q ualified Code(s): K80.00 - Calculus of gallbladder with acute cholecystitis without obstruction PLAN: Plan I have been consulted in conjunction with Dr. Collins. He has independently evaluated this patient. Patient is a 24 y/o F who presented with a 6 day history of worsening right upper quadrant abdominal pain and fever. She has a history of ERCP with gallstone removal and stent placement x [address] Chacon. She was not scheduled to have her gallbladder removed until January. With the patient's persistent right upper quadrant abdominal pain associated with eating and RUQ u/s consistent with acute cholecystitis, I believe it is in the patient's benefit to have her gallbladder removed. Dr. Collins will plan to perform a laparoscopic cholecystectomy with intraoperative cholangiogram today. Procedure details, risks and benefits have been explained to the patient and her by myself and Dr. Collins. Patient will continue to keep her ERCP with stent removal at the end of November. Patient and her have had the opportunity to ask and have questions answered. Patient verbally understands and agrees with the plan. Thank you for allowing us to participate in this patient's care. Charges/Coding Visit Charges Inpatient E&M: 23757 Init Hosp L2 (pre-op)
[2024-10-21 09:06] LABS: Internal QC Validated? YES +Cl - CLEAR BKGD; Pregnancy, Urine Negative Negative
--- NOTE | 2024-10-21 10:07 | CASEMGMT ---
[facility] CM Readmission Note Previous Admission: 09/25/24-09/26/24 Diagnosis: abd pain DC Disposition: Home Current Admission: Admitted 10/20/24 Current Diagnosis: acute cholecystitis Pt was induced at [facility] on 09/24 and delivered. Pt then brought to [facility] on 09/25 and had an ERCP with biliary sphincterectomy and complete removal of CBD stone and temporary stent placed in ventral pancreatic duct and CBD. Pt preferred to be dc'd with Dr. Shaq Richter to perform cholecystectomy. Pt was dc'd on po antibiotics. Pt f/u with Dr. Richter who wanted pt to have stents removed prior to the cholecystectomy. Pt was scheduled for removal in November and surgery in January. Pt represented to [facility] ER with fever and pain with eating. Pt would like cholecystectomy to be performed. Pt states she took her meds as ordered. Pt reports she is I in ADL/IADLs. Pt denies any homegoing needs. 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 Pt would like [employer] in [facility] to be used for meds upon dc. Pt denies further needs. DC Plan: Home
[2024-10-21] MEDS: Dextrose 5%/0.9% NaCl 1,000 ML 90 ML IV (10:20)
--- NOTE | 2024-10-21 12:38 | PCM.PRE.AN2 ---
ASA Classification* ASA Classification ASA Classification: 2 Assessment & Plan Anesthesia* Anesthesia Assessment Anesthesia Assessment: Discussed sedation and/or anesthesia options, risks, benefits, and alternatives with patient/parents/legal guardian/POA. Questions invited. The patient/parents/legal guardian/POA seems to understand and agrees to proceed with anesthesia plan. Reviewed the physical assessment, medical history, allergy history and patient home medications list prior to surgery/procedure/anesthetic and documented any changes. Performed airway and anesthesia risk assessments. Anesthesia Type Anesthesia Type: General Anesthesia Focused Assessment* Temperature: 98.6 F Pulse Rate: 79 Blood Pressure: 105/69 Respiratory Rate: 18 Pulse Ox: 96 Airway Assessment Mouth opens: >3 cm Mallampati Score: II Focused Labs Anesthesia Preop lab: CBC WBC 8.5 K/mm3 (4.4-11.0) 10/21/24 05:20 10/21/24 RBC 3.76 M/mm3 (4.2-5.4) L 10/21/24 05:20 10/21/24 Hgb 11.5 g/dL (12.0-15.0) L 10/21/24 05:20 10/21/24 Hct 34.1 % (37-47) L 10/21/24 05:20 10/21/24 Plt Count 217 K/mm3 (150-450) 10/21/24 05:20 10/21/24 CHEMISTRY Potassium 3.3 mmol/L (3.3-5.1) 10/21/24 05:20 10/21/24 Sodium 137 mmol/L (133-145) 10/21/24 05:20 10/21/24 BUN 8 mg/dL (4-19) 10/21/24 05:20 10/21/24 Creatinine 0.68 mg/dL (0.70-1.20) L 10/21/24 05:20 10/21/24 Glucose 69 mg/dL (70-99) L 10/21/24 05:20 10/21/24 COAG PT 13.4 SECONDS (11.7-14.9) 10/21/24 05:20 10/21/24 Urine Test Negative Negative 10/21/24 08:45 10/21/24 Pre-Assessment Diagnosis/Proposed Procedure Planned Operative Procedure(s): Laparoscopic cholecystectomy. 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 When Was Last Pacemaker Check QUESTION #4 FULL TEXT: You/Your Family Experience fever (hyperthermia) with Anesthesia Last Oral Intake Last Oral intake: Last Oral Intake NPO since Meds taken in AM with sips of water? 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 - gear nicker: PONV - gear nicker Female HX of Motion Sickness HX of N/V After Surgery Non-Smoker Duration of Surgery greater than 60 minutes Number of Risk Factors PONV Score Height & Weight Height & Weight: Anesthesia: Height & Weight Height 5 ft 6 in 10/20/24 21:23 Weight: 89.6 kg 10/20/24 21:23 Body Mass Index (BMI) 31.8 10/20/24 21:23 Respiratory Assessment Respiratory Assessment - gear nicker: Respiratory Tract Infection Hx - gear nicker Hx Respiratory Tract Infection STOP Sleep Apnea STOP Sleep Apnea - gear nicker: STOP Sleep Apnea - gear nicker Hx Hypertension No 10/20/24 21:23 Hx Sleep Apnea No 10/20/24 21:23 CPAP BIPAP Do you snore loudly (louder No 10/20/24 21:23 than talking or can be heard Do you often feel tired/ No 10/20/24 21:23 fatigued/ sleepy during daytime? Has anyone observed you stop No 10/20/24 21:23 breathing during sleep? STOP Results Negative 10/20/24 21:23 QUESTION #5 FULL TEXT : Do you snore loudly (louder than talking or can be heard through closed doors)? 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 Specify any problems Hx of Preganancy in last 3 Yes 10/20/24 21:23 Months Nurse Filling Out Transfusion [id number] 10/20/24 21:23 & Questions: Date: 10/20/24 10/20/24 21:23 Time: 21:29 10/20/24 21:23 Patient unable to answer at this time (ie. confused, unrespo /Reproduction History /Reproductive History - gear nicker: /Reproductive Hx- gear nicker Hx Now No 10/20/24 21:23 Gestational Age (in weeks): EDC: Hx Hx Para Hx Section SAB Yes 10/20/24 21:23 Active Medications Active Medications: Current Medications Generic Name Dose Route Start Last Admin Trade Name Freq PRN Reason Stop Dose Admin Acetaminophen 1,000 mg 10/20/24 22:00 10/21/24 04:05 Acetaminophen 500 Mg Tablet PO 1,000 mg Q8 GEOVANNA Administration Docusate Sodium 100 mg 10/20/24 20:46 Docusate Sodium 100 Mg Capsule PO BID PRN PRN Constipation Dextrose/Sodium Chloride 1,000 mls @ 90 mls/hr 10/20/24 21:00 10/21/24 10:20 Dextrose 5%/0.9% Nacl IV 90 mls/hr .[id number] GEOVANNA Administration Piperacillin Sod/Tazobactam 50 mls @ 12.5 mls/hr 10/21/24 06:00 10/21/24 10:29 Sod 3.375 gm/ Sodium Chloride IV Infused Q8 GEOVANNA Infusion Morphine Sulfate 2 - 4 mg 10/20/24 20:46 10/21/24 10:34 Morphine 2 Mg/Ml Syringe IV 2 mg Q3H PRN PRN Administration Pain Score 6-10 Morphine Sulfate 2 - 4 mg 10/20/24 20:54 Morphine 4 Mg/Ml Syringe IV Q3H PRN PRN Pain Score 6-10 Ondansetron HCl 4 mg 10/20/24 20:46 10/21/24 04:05 Ondansetron 4 Mg/2 Ml Vial IV 4 mg Q8H PRN PRN Administration NAUSEA/VOMITING Oxycodone HCl 5 mg 10/20/24 20:46 10/21/24 04:05 Oxycodone 5 Mg Tablet PO 5 mg Q4H PRN PRN Administration Pain Score 4-10 PFSH Medical History Biliary colic Home Medications ?Medication ?Instructions ?Recorded ?Last Taken ?Type NK 10/20/24 Unknown History Allergy/AdvReac Type Severity Reaction Status Date / Time No Known Allergies Allergy Verified 10/21/24 12:32 Family History Mother No problems noted. Father No problems noted. Surgical History Hx of appendectomy Social History household members: spouse, children and other details: 2 older children at home, 1 miscarriage, 1 09/24/24. Smoking Status: Never smoker alcohol intake: never substance use type: does not use Review of Systems (Anesthesia) ROS Narrative System reviewed and no additional complaints, except as documented.
[2024-10-21] MEDS: Lactated Ringers 1,000 ML 15 ML IV (12:47)
--- NOTE | 2024-10-21 13:30 | GALL_PTH ---
PATIENT: SUSANNA CROWLEY V LOC: MS3 U#:[id number] AGE/SX: 24/F ROOM: MS319 RE10/20/[address]: Dr. Aquilino Collins MD : 2000 BED: 1 DIS: 10/23/2024 SPEC #: [id number] RECD: 10/21/24 17:51 STATUS: GRACE ARANA #: [id number] FRANCIA: 10/21/24 13:[address]: Aquilino Collins DEPT: SURGICAL PATHOLOGY RECD BY: Melecio Peña ENTERED: 10/22/24 09:03 SP TYPE: LUZ MARINA [place] DR: Dr. Heather Ruby DO Tissues: A - Gallbladder, NOS Procedures: Surgery Specimen Level III HEADER OPERATION: Laparoscopic, partial cholecystectomy PRE-OP DIAGNOSIS: Acute cholecystitis, history of biliary stent insertion, abdominal pain, gallstone TISSUE SUBMITTED: A- Partial gallbladder MICROSCOPIC DIAGNOSIS A. Gallbladder, acute cholecystitis, partial cholecystectomy: * Acute on chronic cholecystitis with cholelithiasis. MICROSCOPIC DESCRIPTION Slides are reviewed. GROSS DESCRIPTION A. Received in formalin in a container labeled with the patient's name, date of , and partial gallbladder is a previously disrupted cholecystectomy specimen received in 2 shaggy portions measuring 2.4 x 1.5 x 0.9 cm and 5.4 x 3.0 x 1.7 cm. No cystic duct margin is grossly recognized. No orientation is able to be determined. The largest fragment exhibits pink-ruggiero, focally roughened serosa. The opposing surface displays red-brown, roughened possible mucosa. No typical velvety mucosa is discovered. The average wall thickness is 1.1 cm with scattered hemorrhage. No distinct mass lesion is grossly recognized. The smaller fragment is sectioned to reveal 0.6 cm thick perez with scattered hemorrhage. Free-floating in the container are multiple siegel-red and friable stone fragments measuring 4.0 x 3.3 x 1.0 cm in aggregate. Fixture Designer sections are submitted in A1-2. [facility] 10-22-2024 CPT:[id number]
[2024-10-21] MEDS: Bupiv/Epi 0.25% 30 ML Vial (15:20)
--- NOTE | 2024-10-21 16:16 | PCM.POST.ANE ---
Anesthesia: Postop Eval I Current Vital Signs Temperature: 98.8 F Pulse Rate: 104 Blood Pressure: 112/70 Respiratory Rate: 16 Pulse Ox: 97 Oxygen Delivery Method: Room Air Assessment Airway patent: Yes Spontaneous unlabored respirations: Yes Mental status: Awake and Calm nausea: No Vomiting: No Anesthesia Complication: No Fluid Hydration Crystalloid volume administer (ml): 1,400 Total IV fluid infused: 1,400 Progress Note Anesthesia document: Postop Eval 1 completed: Yes
--- NOTE | 2024-10-21 16:32 | OP.PCM_ITS ---
Problems Associated Problem List Diagnoses (1) Acute cholecystitis: Procedures Digestive 40xxx-49xxx: 99684 Laparoscopic cholecystectomy (Laparoscopic subtotal cholecystectomy without cholangiograms) Operative Report (Standard) Operative Information Date of Procedure: 10/21/24 Pre-Operative Diagnosis: Acute on chronic cholecystitis Post-Operative Diagnosis: Same Surgery/Procedure Performed: Laparoscopic subtotal cholecystectomy in service educator: Yes Turner Off: Dillan Means Tasks completed by assistant superintendent for curriculum: Closing, Trocar and Retracting Additional hotel assistant general manager?: No Type of Anesthesia: General and Local RN Documented Start/Stop Times: Operation Date: 10/21/24 13:30 Case Time Into Pre-Op 10/21/24 12:32 Out of Pre-Op 10/21/24 13:53 Anesthesia Start 10/21/24 14:00 Into Room 10/21/24 14:00 Procedure Start 10/21/24 14:22 Procedure End 10/21/24 16:05 Anesthesia End 10/21/24 16:10 Out of Room 10/21/24 16:10 Into Recovery 10/21/24 16:14 Procedure Start Time: 14:22 Procedure Stop Time: 16:05 Select all DRAINS/GRAFTS/IMPLANTS that apply: Drains Drain details: 10 Bulgarian fully fluted flat AYSE drain x 1 and Tissue Tissue details: Portion of gallbladder with gallbladder contents Special Medications: Receiving Zosyn IV scheduled Estimated Blood Loss: 40 mL Specimen collected: Yes Description of specimen(s) removed: Portion of gallbladder and contents Description of surgery: The patient is a 24-year-old female who recently delivered her third child about a month ago. Her delivery was induced as she had developed choledocholithiasis and had elevated LFTs. After she delivered, she underwent an ERCP by Dr. Chacon. The common bile duct stones were removed and stents were placed. She was advised to have her cholecystectomy performed during that hospitalization however she stated that she would prefer to have this performed closer to home. Patient was initially doing very well up until about 5 days ago when she began having abdominal pain and low-grade fevers. She presented to [facility] last evening. She was seen and evaluated by the ER staff. All of her blood work was pretty unremarkable however she had 102 temperatures at home and her gallbladder ultrasound revealed gallbladder wall thickening. She was subsidy admitted with plans for cholecystectomy today. We discussed the details of the planned procedure as well as risks benefits and alternatives. She wished to proceed. She was brought to the operating today following informed consent. Preoperative antibiotics were being given. She was placed supine on the operative table with arms outstretched and arm boards. A general endotracheal anesthesia was induced. The abdomen was prepped and draped in the usual manner. She had a previous midline incision and so the initial trocar to be placed was a 5 mm trocar placed optically in the right upper quadrant. This was placed without incident. Once in place the abdomen was then fully insufflated with CO2 gas. A 5 mm 0 degree scope was inserted. There were no signs of bowel or vascular injury. She actually had no adhesions along the midline. I placed another 5 mm trocar just below the umbilicus. This was placed without incident. The 5 mm scope was then relocated to this location. An additional right upper quadrant trocar was placed under direct visualization along with a 10 mm trocar placed easily in the epigastric area. Once in place the patient was positioned such that there was head up positioning as well as some turn to the left to improve visualization. The right upper quadrant was visualized. The gallbladder was completely encased in dense chronically adherent omentum. I was then able to begin to peel away some of this densely adherent omentum off the undersurface of the gallbladder. More of the gallbladder was able to be visualized. An aspirating needle was then used to aspirate quite a bit of bile from the gallbladder to help facilitate grasping of the gallbladder. This was reflected in somewhat of a cephalad direction. I was then able to dissect the adhesed omentum off of the gallbladder using blunt dissection with the suction microsoft application developer tip. There was densely adherent omentum to the lateral aspect of the gallbladder and the inferior liver edge. This was taken down using electrocautery and a J-hook. The anterior surface of the gallbladder was then further exposed was actually able to get down to close to the infundibulum however at this point the thick adherent rind did not easily separate from the gallbladder infundibulum whatsoever. I did an attempt to incise this in hopes of being able to develop a plane however this was extremely adherent and densely fibrotic. At this point the decision was made to pursue a subtotal cholecystectomy rather than risk bile duct injury with further dissection in the scarred infundibulum region. I felt that this was the safest option given this scenario. The subtotal cholecystectomy was performed by having the hotel assistant general manager grasped the fundus of the gallbladder. Just below this I then opened up the anterior wall of the gallbladder using harmonic scalpel. This was carried out transversely across the width of the gallbladder. I was then able to suction out the inner lumen of the gallbladder to suck out the bile. At this point the harmonic scalpel was then used to slowly take down the anterior wall of the gallbladder from a top-down approach. As we went further inferiorly stones were able to be identified. These were grasped with a stone scoop. All of the stones were removed. Once we got down close to the infundibulum, the harmonic scalpel was again taken transversely across the anterior wall of the gallbladder thus fully exposing the back wall of the gallbladder. The gallbladder wall was extremely thickened by at least a centimeter. All stones and bilious contents were removed from the gallbladder. There was no backflow of bile noted as patient had a recent sphincterotomy and still has a stent in place. Hemostasis was excellent. The gallbladder wall was then placed into a bag and brought out through the 10 mm trocar site. The right upper quadrant was then copiously irrigated with a total of 3 L of saline until clear. Again hemostasis was excellent. A 10 flat fully fluted AYSE drain was laid in the gallbladder fossa. This drain was brought out through one of the right sided trocar sites. This was sutured to the skin. The fascia of the 10 mm trocar site was closed using 0 PDS with a of the fascial closure device. The remaining trocars were opened up and insufflation was allowed to escape. Local anesthetic was injected into each of the incisions and the incisions were then closed with 4-0 Vicryl. Skin glue was applied as dressing. She was awakened from anesthesia and taken to recovery in good condition. Surgical Findings: Extremely inflamed gallbladder (acute and chronic). Very thickened gallbladder wall Complications Complications: No Admit VTE Documentation VTE Mechan Device Prophylaxis: SCD's VTE Pharm Prophylaxis ordered?: No Reason prophylaxis not ordered: Treatment Not Indicated
--- NOTE | 2024-10-21 17:52 | POSTOPAN2_ITS ---
Anesthesia Postop Eval I Sum Postop Eval Completion status Anesthesia document: Postop Eval 1 completed: Yes Anesthesia Postop Eval I Summary Anesthesia Postop Eval I Summary: Anesthesia Postop Eval I: Assessment Summary Airway patent Yes 10/21/24 16:16 [email or web address] Spontaneous unlabored Yes 10/21/24 16:16 CONCRETE BUCKET [email or web address] respirations Mental status Awake,Calm 10/21/24 16:16 [email or web address] nausea No 10/21/24 16:16 CONCRETE [email or web address] Vomiting No 10/21/24 16:16 [email or web address] Anesthesia Postop Eval I: Fluid Summary Crystalloid volume administer 1,400 10/21/24 16:16 [email or web address] (ml) Colloids volume administered ( ml) Blood Product volume administered (ml) Total IV fluid infused 1,400 10/21/24 16:16 [email or web address] Anesthesia Postop Eval I: Summary Notes Anesthesia Complication No 10/21/24 16:16 CONCRETE [email or web address] [email or web address] Anesthesia Complication Comment: Post-operative progress note Anesthesia: Postop Eval II Evaluation Mental status: Awake and Calm Pain Level: 1 nausea: No Vomiting: No Complications Anesthesia Complication: No
--- NOTE | 2024-10-21 17:52 | PCM.POSTANE2 ---
Anesthesia Postop Eval I Sum Postop Eval Completion status Anesthesia document: Postop Eval 1 completed: Yes Anesthesia Postop Eval I Summary Anesthesia Postop Eval I Summary: Anesthesia Postop Eval I: Assessment Summary Airway patent Yes 10/21/24 16:16 [email or web address] Spontaneous unlabored Yes 10/21/24 16:16 PUBLIC [email or web address] respirations Mental status Awake,Calm 10/21/24 16:16 [email or web address] nausea No 10/21/24 16:16 [email or web address] Vomiting No 10/21/24 16:16 [email or web address] Anesthesia Postop Eval I: Fluid Summary Crystalloid volume administer 1,400 10/21/24 16:16 [email or web address] (ml) Colloids volume administered ( ml) Blood Product volume administered (ml) Total IV fluid infused 1,400 10/21/24 16:16 PUBLIC [email or web address] Anesthesia Postop Eval I: Summary Notes Anesthesia Complication No 10/21/24 16:16 PUBLIC [email or web address] Anesthesia Complication Comment: Post-operative progress note Anesthesia: Postop Eval II Evaluation Mental status: Awake and Calm Pain Level: 1 nausea: No Vomiting: No Complications Anesthesia Complication: No
[2024-10-22] VITALS: BP 134/82; PULSE 92; RESP 15; TEMP 38; O2SAT 94
[2024-10-22 01:03] VITALS: BP 111/75; PULSE 64; RESP 15; TEMP 36.5; O2SAT 96
[2024-10-22] MEDS: Piperacil/Tazobactam 3.375 GM in 0.9% Normal Saline (50mL MB+) 50 ML IV ×3 (05:51→22:54)
[2024-10-22] MEDS: Acetaminophen 500 MG Tablet 1000 MG PO ×3 (05:57→22:54)
[2024-10-22 06:39] LABS: Absolute Lymphocyte Count 1.35 X10^3/uL (0.83-4.51); Absolute Neutrophil Count 9.7 X10^3/uL (2.0-7.7); Basophil# 0.03 X10^3/uL; Basophil% 0.3 % (0-1); Hematocrit 34.5 % (37-47); Hemoglobin 11.8 g/dL (12.0-15.0); Lymphocyte # 1.35 X10^3/ul (0.83-4.51); Lymphocyte % 11.5 % (19-41); Mean Corp Hgb Conc 34.2 g/dL (32-36); Mean Corpuscular Hgb 30.8 pg (27.0-32.0); Mean Corpuscular Volume 90.1 fL (81-99); Mean Platelet Vol. 10.2 fl (6.2-12.0); Monocyte# 0.62 X10^3/uL; Monocyte% 5.3 % (0-10); NRBC Flagged by Analyzer 0 % (0-5); Neutrophil # 9.65 X10^3/uL (2.7-7.7); Platelet Count 228 K/mm3 (150-450); RBC Distribution Width CV 11.8 % (11.6-14.6); RBC Distribution Width SD 38.6 fl (35.1-43.9); Red Blood Count 3.83 M/mm3 (4.2-5.4); White Blood Count 11.8 K/mm3 (4.4-11.0)
--- NOTE | 2024-10-22 06:50 | PN.SURG_ITS ---
Subjective Subjective Patient evaluated resting comfortably in bed. She notes right upper quadrant pain with movement otherwise no discomfort noted. She denies any nausea, vomiting, fever. She tolerated a transitional diet last night. Objective Data Objective Data Vital Signs: Vital Signs Temp Pulse Resp BP Pulse Ox O2 Del Method O2 Flow Rate 97.7 F L 64 15 111/75 96 Room Air 2 10/22/24 01:03 10/22/24 01:03 10/22/24 01:03 10/22/24 01:03 10/22/24 01:03 10/22/24 02:00 10/21/24 20:39 Oxygen Flow Rate (L/min) 2 Oxygen Delivery Method Room Air Weight: 197 lb 8.547 oz Body Mass Index (BMI) 31.8 Intake & Output: Intake and Output for Last 24 Hours 10/20/24 10/21/24 10/22/24 23:59 23:59 23:59 Intake Total 112 / 162 2938 / 3038 350 / 350 Output Total 530 / 580 880 / 880 Balance 112 / 162 2408 / 2458 -530 / -530 Lab / Micro Data 10/22/24 06:05 10/22/24 06:05 Labs: Laboratory Results - last 24 hr 10/21/24 05:20: PT 13.4, INR 1.0, APTT 35.3, Sodium 137, Potassium 3.3, Chloride 102, Carbon Dioxide 23.1, Anion Gap 12, BUN 8, Creatinine 0.68 L, Estim Creat Clear Calc 142.59, Est GFR (MDRD) Non-Af 124, BUN/Creatinine Ratio 12.2, Glucose 69 L, Calcium 8.7, Total Bilirubin 0.46, AST 13, ALT 10, Alkaline Phosphatase 95, Total Protein 6.5, Albumin 3.4 L, Globulin 3.1, Albumin/Globulin Ratio 1.1 10/21/24 08:45: Urine Test Negative 10/22/24 06:05: WBC 11.8 H, RBC 3.83 L, Hgb 11.8 L, Hct 34.5 L, MCV 90.1, MCH 30.8, MCHC 34.2, RDW Std Deviation 38.6, RDW Coeff of Rebeca 11.8, Plt Count 228, MPV 10.2, Immature Gran % (Auto) 0.900, Neut % (Auto) 82.0 H, Lymph % (Auto) 11.5 L, [place] % (Auto) 5.3, Eos % (Auto) 0.0, Baso % (Auto) 0.3, Absolute Neuts (auto) 9.7 H, Absolute Lymphs (auto) 1.35, Nucleated RBC % 0 Physical Exam GI GI Narrative: Abdomen- soft, slightly distended. Incisions c/d/i. AYSE drain with bright red bloody fluid noted. No bilious output noted in the AYSE. Assessment & Plan Assessment/Plan (1) Gallstone: QUALIFIERS: Cholecystitis presence: with cholecystitis C holecystitis acuity: acute Biliary obstruction: without biliary obstruction Q ualified Code(s): K80.00 - Calculus of gallbladder with acute cholecystitis without obstruction (2) Acute cholecystitis: PLAN: Plan I am following this patient in conjunction with Dr. Collins. Labs reviewed. WBC slightly elevated AYSE drain was stripped Leave drain in place for today. Discussed with patient that she may go home with a drain Plan to monitor patient at least for another day Hopeful discharge tomorrow Continue to encourage ambulation and I.S. Charges/Coding Visit Charges Inpatient E&M: 15248 Subs Hosp L1 (post-op)
[2024-10-22 07:05] LABS: AST(SGOT) 14 U/L (<=31); Alanine Aminotransfer ALT/SGPT 12 U/L (<=34); Albumin, Serum 3.2 g/dL (3.5-5.0); Alkaline Phosphatase 91 U/L (35-104); Anion Gap 12 (5-15); BUN 7 mg/dL (4-19); BUN/Creat Ratio 10.9 RATIO (10-20); Calcium,Total 8.8 mg/dL (7.6-11.0); Carbon Dioxide 21.9 mmol/L (21.0-32.0); Chloride 105 mmol/L (98-108); Creatinine, Serum 0.62 mg/dL (0.70-1.20); EST Glomerular Filtration Rate 127 (>60); Estimated Creatinine Clearance 156.39 ml/min (50-250); Globulin 3.2 g/dL (2.2-4.2); Glucose 126 mg/dL (70-99); Potassium 4.2 mmol/L (3.3-5.1); Protein, Total 6.4 g/dL (5.9-8.4); Sodium Level 139 mmol/L (133-145); Total Bilirubin 0.28 mg/dL (0.00-1.30)
[2024-10-22 09:42] VITALS: BP 102/67; PULSE 81; RESP 16; TEMP 36.7; O2SAT 95
[2024-10-22 14:09] VITALS: BP 103/68; PULSE 83; RESP 16; TEMP 36.8; O2SAT 96
[2024-10-22 20:19] VITALS: BP 111/74; PULSE 88; RESP 15; TEMP 36.4; O2SAT 95
[2024-10-22] MEDS: Morphine 2 MG/ML Syringe IV ×2 (20:24→23:48)
[2024-10-23 04:00] VITALS: BP 110/66; PULSE 78; RESP 15; TEMP 36.4; O2SAT 96
[2024-10-23] MEDS: Piperacil/Tazobactam 3.375 GM in 0.9% Normal Saline (50mL MB+) 50 ML IV (05:31)
[2024-10-23] MEDS: Acetaminophen 500 MG Tablet 1000 MG PO ×2 (05:31→13:39)
[2024-10-23 05:47] LABS: Absolute Lymphocyte Count 3.48 X10^3/uL (0.83-4.51); Absolute Neutrophil Count 6.6 X10^3/uL (2.0-7.7); Basophil# 0.05 X10^3/uL; Basophil% 0.4 % (0-1); Eosinophil# 0.66 X10^3/uL; Eosinophils% 5.8 % (0-5); Hematocrit 32.9 % (37-47); Hemoglobin 11.1 g/dL (12.0-15.0); Lymphocyte # 3.48 X10^3/ul (0.83-4.51); Lymphocyte % 30.5 % (19-41); Mean Corp Hgb Conc 33.7 g/dL (32-36); Mean Corpuscular Hgb 30.5 pg (27.0-32.0); Mean Corpuscular Volume 90.4 fL (81-99); Mean Platelet Vol. 9.9 fl (6.2-12.0); Monocyte% 4.4 % (0-10); NRBC Flagged by Analyzer 0 % (0-5); Neutrophil # 6.61 X10^3/uL (2.7-7.7); Neutrophil % 57.9 % (47-70); Platelet Count 271 K/mm3 (150-450); RBC Distribution Width CV 11.9 % (11.6-14.6); RBC Distribution Width SD 39.5 fl (35.1-43.9); Red Blood Count 3.64 M/mm3 (4.2-5.4); White Blood Count 11.4 K/mm3 (4.4-11.0)
[2024-10-23 06:16] LABS: AST(SGOT) 11 U/L (<=31); Alanine Aminotransfer ALT/SGPT 10 U/L (<=34); Alkaline Phosphatase 75 U/L (35-104); Anion Gap 11 (5-15); BUN 13 mg/dL (4-19); BUN/Creat Ratio 17.3 RATIO (10-20); Calcium,Total 8.6 mg/dL (7.6-11.0); Carbon Dioxide 24.3 mmol/L (21.0-32.0); Chloride 107 mmol/L (98-108); Creatinine, Serum 0.76 mg/dL (0.70-1.20); EST Glomerular Filtration Rate 111 (>60); Estimated Creatinine Clearance 127.58 ml/min (50-250); Globulin 2.8 g/dL (2.2-4.2); Glucose 83 mg/dL (70-99); Potassium 3.4 mmol/L (3.3-5.1); Protein, Total 5.8 g/dL (5.9-8.4); Sodium Level 142 mmol/L (133-145); Total Bilirubin 0.21 mg/dL (0.00-1.30)
[2024-10-23 10:00] VITALS: BP 102/67; PULSE 100; RESP 16; TEMP 36.9; O2SAT 95
[2024-10-23] MEDS: Docusate Sodium 100 MG Capsule PO (10:57)
--- NOTE | 2024-10-23 13:05 | DS.PCM_ITS ---
Providers Date of Admission: 10/20/24 Date of Discharge: 10/23/24 Primary Care Physician: Dr. Heather Ruby, DO Reason For Visit: ACUTE CHOLECYSTITIS Diagnosis Discharge Diagnosis (1) Gallstone: Status: Acute Code(s): K80.20 - Calculus of gallbladder without cholecystitis without obstruction Qualifiers: Cholecystitis presence: with cholecystitis Cholecystitis acuity: acute Biliary obstruction: without biliary obstruction Qualified Code(s): K80.00 - Calculus of gallbladder with acute cholecystitis without obstruction (2) Acute cholecystitis: Status: Acute Code(s): K81.0 - Acute cholecystitis Plan I have been consulted in conjunction with Dr. Collins. He has independently evaluated this patient. Patient is a 24 y/o F who presented with a 6 day history of worsening right upper quadrant abdominal pain and fever. She has a history of ERCP with gallstone removal and stent placement x [address] Chacon. She was not scheduled to have her gallbladder removed until January. With the patient's persistent right upper quadrant abdominal pain associated with eating and RUQ u/s consistent with acute cholecystitis, I believe it is in the patient's benefit to have her gallbladder removed. Dr. Collins will plan to perform a laparoscopic cholecystectomy with intraoperative cholangiogram today. Procedure details, risks and benefits have been explained to the patient and her by myself and Dr. Collins. Patient will continue to keep her ERCP with stent removal at the end of November. Patient and her have had the opportunity to ask and have questions answered. Patient verbally understands and agrees with the plan. Thank you for allowing us to participate in this patient's care. Medications at Discharge Home Medications oxycodone-acetaminophen 5 mg-325 mg tablet (Percocet) 1 tab PO Q8H PRN pain 3 days #7 tabs 10/23/24 Hospital Course Operations cholecystecomy Procedures None Summary of Care Provided Minutes Spent on Discharge: 15 Hospital Course: The patient is a 24-year-old female who is 4 weeks . She developed choledocholithiasis during her at I believe 38 weeks. She was induced and then underwent an ERCP and had a stent placed. She was initially offered cholecystectomy during that hospitalization but declined and stated that she would rather have this performed at a hospital closer to home. She initially did well for several weeks but then developed abdominal pain for the past week. She presented to the emergency department at [facility] with right upper quadrant pain and fevers. Ultrasound showed a gallbladder wall thickening and pericholecystic fluid. Labs were unremarkable. She was subsequently admitted with plans for cholecystectomy. She was brought to the operating room and a very thickened inflamed gallbladder was identified. Dissection of the infundibulum to identify the cystic duct and cystic artery were not able to be performed. Due to concern for possible bile duct injury it was decided to do a subtotal cholecystectomy rather than risk injury. This was performed without incident. A drain was left in place. She did well postoperatively. We have kept her on antibiotics white count remains normal. She remains afebrile. AYSE drain output has remained serosanguineous. She looks good today and is hoping to go home today if possible. I think this is certainly possible. Her drain output has been around 60 cc and is serosanguineous. I will discharge her home with the drain with plans to remove the drain in office next week Physical Exam Narrative She is alert and oriented x 3. She is in no acute distress. Abdomen is soft And appropriately tender. AYSE drain with serosanguineous output Weight / BMI Weight Weight: 197 lb 8.547 oz Body Mass Index (BMI) 31.8 ABG / Lab / Microbiology Data 10/23/24 05:15 10/23/24 05:15 Laboratory: Laboratory Results - last 24 hr 10/23/24 05:15: WBC 11.4 H, RBC 3.64 L, Hgb 11.1 L, Hct 32.9 L, MCV 90.4, MCH 30.5, MCHC 33.7, RDW Std Deviation 39.5, RDW Coeff of Rebeca 11.9, Plt Count 271, MPV 9.9, Immature Gran % (Auto) 1.000 H, Neut % (Auto) 57.9, Lymph % (Auto) 30.5, Hendry % (Auto) 4.4, Eos % (Auto) 5.8 H, Baso % (Auto) 0.4, Absolute Neuts (auto) 6.6, Absolute Lymphs (auto) 3.48, Nucleated RBC % 0, Sodium 142, Potassium 3.4, Chloride 107, Carbon Dioxide 24.3, Anion Gap 11, BUN 13, Creatinine 0.76, Estim Creat Clear Calc 127.58, Est GFR (MDRD) Non-Af 111, BUN/Creatinine Ratio 17.3, Glucose 83, Calcium 8.6, Total Bilirubin 0.21, AST 11, ALT 10, Alkaline Phosphatase 75, Total Protein 5.8 L, Albumin 3.0 L, Globulin 2.8, Albumin/Globulin Ratio 1.0 Microbiology: Microbiology 10/20/24 18:00 Urine, Clean Catch Urine Culture - Preliminary GPC Poss Enterococcus sp Mixed Gram Positive Organisms D/C Instructions Discharge Diet: Light diet - advance as tolerated Discharge Activity: Return to Normal Activity and May Shower May shower in (days): 1 Lifting Restrictions: Keep lifting under 20 pounds for 3 to 4 weeks Call your doctor if your incision/area has: Continuous Slow Oozing, Sudden Increased Bleeding, Increased Pain/ Swelling, Increased Redness, Foul Smelling Discharge, Swelling at the incision site and - (These call if AYSE drain output turns green or dark yellow) Call your doctor if you observe: Fever of 101 or Higher Cleanse incision/area with: Soap & Water DC O2, CPAP, BIPAP Needs Home O2 Discharge instructions: No DC home with Oxygen: No Please Follow Up With: Aquilino Collins MD When: Early next week. Please call office Saturday to schedule appointment to have drain removed Meaningful Use Info Meaningful Use Meaningful Use Diagnoses (Choose all that apply): None applicable Ischemic Stroke Statin Dosing Therapy Reference: STATIN DOSE THERAPY REFERENCE: * Patients > 75 years receive moderate or high dose statin therapy. * Patients 75 years or YOUNGER should receive HIGH intensity statin dose unless contraindicated. You will be required to document reason for non-treatment if statin daily dose does not meet guidelines. HIGH DOSE STATIN THERAPY DAILY Atorvastatin > than or = to 40 mg Rosuvastatin > than or = to 20 mg Amlodipine + Atorvastatin > than or = to 2.5/40 mg Ezetimibe + Simvastatin 10/80 mg Simvastatin 80mg Discharge Plan Admission Admit Date/Time: 10/20/24 20:46 Primary Reason for Your Visit: Acute cholecystitis Attending Provider: Aquilino Collins Primary Care Provider: Heather Ruby Discharge Orders/Prescriptions Prescriptions: New oxycodone-acetaminophen [Percocet] 5-325 mg tablet 1 tab PO Q8H PRN (Reason: pain) 3 Days Qty: 7 0RF Referrals / Follow Up: Flori,Heather N, DO [Primary Care Provider] - Disposition Disposition (needs filled in before D/C Order can be placed): Home, Self Care
--- NOTE | 2024-10-23 13:50 | CASEMGMT ---
RN CM NOTE: Discharge order is in. RN CM to room. Pt resting in bed, @ bedside. Pt states she is glad to be going home to be able to see her baby. Pt and were made aware of need to call Dr Collins's office on Saturday to schedule appt to have AYSE removed next week. Questions answered. They had requested for any new Rx's @ dc to be sent to [facility] pharmacy and this has been done. Pt and deny having any discharge needs or concerns. Tico REYESN RN CM
[2024-10-23] MEDS: oxyCODONE 5 MG Tablet PO (13:55)
== END 2024-10-23 14:53 | disposition home or self-care (01) | DRG 419 ==
LOC: ED 20:36 → MS3 20:56
PROVIDERS: Anesthesiology; Physician Assistant; Admitting Provider Surgery; Emergency Provider Emergency Medicine; PCP Obstetrics & Gynecology Gynecology; Visit Provider Surgery
PROC: 0FT44ZZ Resection of Gallbladder, Percutaneous Endoscopic Approach (ICD-10-PCS; CPT 47610; principal; 2024-10-21 13:10)
DX: K80.12 Calculus of gallbladder with acute and chronic cholecystitis without obstruction (principal); K82.8 Other specified diseases of gallbladder; R79.89 Other specified abnormal findings of blood chemistry
CPT/HCPCS: 36415; 76705; 80053; 81001; 81025; 83690; 85025; 85610; 85730; 87077; 87086; 87088; 87186; 88304; 93005; 94668; 99285; A4216; C1769; J2405

== ENCOUNTER → 2024-10-28 | Outpatient (CLI) | payer OTHER, SELFPAY ==
--- NOTE | 2024-10-28 13:57 | NM_ITS ---
PROCEDURE: HEPATOBILIARY IMAGING 10/28/2024 REASON FOR EXAM: 24-year-old female, history of partial cholecystectomy with drain placement approximately 1 week ago. Concern for biliary leak. TECHNIQUE: Intravenous Choletec with planar imaging of the abdomen. RADIOPHARMACEUTICAL: 5.8 mCi of Mebrofenin COMPARISON: Gallbladder ultrasound 10/20/2024. ERCP 09/25/2024. FINDINGS: There is good uptake of the radiopharmaceutical by the liver. There is abnormal radiotracer pooling within the region of the gallbladder fossa/residual gallbladder (given history of partial cholecystectomy). Additional abnormal radiotracer pooling region of the common bile duct, however there is normal radiotracer uptake within the small bowel. NM/Hepatobilliary Imaging IMPRESSION: Abnormal radiotracer uptake within the region of the gallbladder fossa/residual gallbladder, which is indeterminate in significance given history of partial cholecystectomy. Correlation with patien t history and surgical report is recommended. If clinically indicated, CT abdomen could be obtained for further evaluation. Reading Location: [id number]
== END | disposition home or self-care (01) ==
LOC: NM 13:56
PROVIDERS: PCP Obstetrics & Gynecology Gynecology; Referring Provider Surgery; Visit Provider Surgery
DX: K83.9 Disease of biliary tract, unspecified (principal)
CPT/HCPCS: 78226; A9537

== ENCOUNTER 2024-11-13 06:03 | Day surgery (SDC) | payer SELFPAY, OTHER ==
[2024-11-13] VITALS (12 sets, daily range): BP systolic 99–123; BP diastolic 62–95; PULSE 77–91; RESP 14–18; TEMP 36–37.1; O2SAT 98–100; BMI 31.1
--- OUTSIDE RECORDS SUMMARY | 2024-11-13 06:07 | XMS RPT_ITS | CCD ---
Author Organization [facility] Team Providers Care Manager Global Communications Name Role Phone DECLINED, Primary Care Unavailable DMITRY DO~[phone], DMITRY Yo Admitting Unavailable DMITRY DO~[phone], DMITRY XIONG J Attending Unavailable DECLINED, Consulting Unavailable DECLINED, Consulting Unavailable AMANDA LPOEZ, TONY Phan Consulting Unavailable AMANDA LOPEZ, TONY Phan Consulting Unavailable JANIYA GREENSKEEPER SUPERVISOR, MARYANN Marcos Consulting Unavail able JANIYA GREENSKEEPER SUPERVISOR, MARYANN E Consulting Unavail able Dr. Florentin Zamudio DO Emergency Provider FloriDr. Heather mcgrath DO Primary Care Provider Oswaldo PINEDO, Dr. Jaffe Attending Provider Dr. Florentin Zamudio DO Emergency Provider FloriDr. Heather mcgrath DO Primary Care Provider Dr. Ld Chacon DO Admit Provider [phone] Dr. Ld Chacon DO Other Provider Dr. Chandan Mayo MD Other Provider Jamil LOPEZ, Dr. Gillis Attending Provider Friend Dr. Ld PINEDO Attending Provider Dr. Chandan Mayo MD Attending Provider Jamil LOPEZ, Dr. Gillis Other Provider Uptain CNM, Crystal K Unavailable [phone] IRINA ZAMORA MD Referring Unavailable ESTELLE QUINTANILLA DO Admitting Unavailable ESTELLE QUINTANILLA DO Primary Care Unavailable ESTELLE QUINTANILLA DO Attending Unavailable IRINA ZAMORA MD Consulting Unavailable PROVIDER, UNKNOWN Consulting Unavailable UPTAIN, CRYSTAL CNM Admitting Unavailable UPTAIN, CRYSTAL CNM Primary Care Unavailable UPTAIN, CRYSTAL CNM Attending Unavailable JULIA WHITAKER Referring Unavailable IRINA ZAMORA MD Consulting Unavailable PROVIDER, UNKNOWN Consulting Unavailable Rosalina LOPEZ, Dr. Radha Eden Referring Provider Jamil LOPEZ, Dr. Gillis Referring Provider Flori PINEDO, Dr. Heather Cerna Referring Provider Mikayla Spears Attending Provider Bryce LOPEZ, Dr. Grimaldo Emergency Provider Dennis LOPEZ, Dr. Aquilino Strickland Admit Provider Dennis LOPEZ, Dr. Aquilino Strickland Attending Provider Dennis LOPEZ, Dr. Aquilino Strickland Other Provider Wendy Santana PA-C Attending Provider Tristan LOPEZ, Dr. Bui Attending Provider Dennis LOPEZ, Dr. Aquilino Strickland Referring Provider Esther OLEARY, Wendy Attending Provider Flori, Heather N Referring Unavailable Friend, Ld Attending Unavailable Flori, Heather N Primary Care Unavailable Wanek, Aquilino A Admitting Unavailable Wanek, Aquilino A Attending Unavailable Flori, Heather N Primary Care Unavailable Flori, Heather N Referring Unavailable Mikayla Mancini Attending Unavailable Flori, Heather N Primary Care Unavailable Wanek, Aquilino A Attending Unavailable Flori, Heather N Primary Care Unavailable Flori, Heather N Referring Unavailable Flori, Heather N Primary Care Unavailable Flori, Heather N Referring Unavailable Wanek, Aquilino A Attending Unavailable Flori, Heather N Referring Unavailable Flori, Heather N Primary Care Unavailable Mikayla Mancini Attending Unavailable Chandan Mayo Consulting Unavailable Friend, Ld Admitting Unavailable Flori, Heather N Primary Care Unavailable Carlin Negron Attending Unavailable Friend, Ld Consulting Unavailable Carlin Negron Consulting Unavailable Radha Romano Referring Unavailable Friend, Ld Attending Unavailable Friend, Ld Consulting Unavailable Flori, Heather N Primary Care Unavailable Chandan Mayo Attending Unavailable Jamil Carlin Referring Unavailable Wanek, Aquilino A Admitting Unavailable Wanek, Aquilino A Attending Unavailable Flori, Heather N Primary Care Unavailable Wanek, Aquilino A Consulting Unavailable Wendy Matos Attending Unavailable Radha Romano Attending Unavailable Wanek, Aquilino A Referring Unavailable Flori, Heather N Primary Care Unavailable Hao Hudson Attending Unavailable Wanek, Aquilino A Attending Unavailable Flori, Heather N Referring Unavailable Flori, Heather N Primary Care Unavailable Chandan Mayo Consulting Unavailable Oswaldo, Ld Admitting Unavailable Flori, Heather N Primary Care Unavailable Carlin Negron Attending Unavailable Ld Chacon Consulting Unavailable Wanek, Aquilino A Referring Unavailable Flori, Heather N Primary Care Unavailable Wanek, Aquilino A Attending Unavailable Medications Current Medications Medication Drug Class(es) Dates Sig (Normalized) Sig (Original) amoxicillin 500 mg / clavulanate 125 mg oral tablet (8 sources) Penicillin-class Antibacterial Start: 10-29-2024 Amoxicillin-Pot Clavulanate (Augmentin) 500-125 mg tablet Active 1 {tbl} PO TWICE A DAY 20 October 29, 2024 12:00am November 07, 2024 12:00am Start: 09-26-2024 End: 10-20-2024 Amoxicillin-Pot Clavulanate 875-125 mg tablet Discontinued 1 {tbl} PO TWICE A DAY 14 7 September 26, 2024 12:00am October 20, 2024 5:57pm Clever (Nk) (1 source) Start: 10-20-2024 Clever (Nk) A ctive October 20, 2024 12:00am Completed/Discontinued Medications Medication Drug Class(es) Dates Sig (Normalized) Sig (Original) acetaminophen 325 mg / oxyCODONE hydrochloride 5 mg oral tablet (4 sources) Opioid Agonist Start: 10-23-2024 End: 10-28-2024 Oxycodone-Acetamino phen (Percocet) 5-325 mg tablet Discontinued 1 {tbl} PO Q8H as needed for pain 7 3 October 23, 2024 October 28, 2024 1:11pm docusate sodium 50 mg / sennosides, intermediate 8.6 mg oral tablet (6 sources) Start: 09-26-2024 End: 10-09-2024 Sennosides-Docusate Sodium (Stimulant Laxative Plus) 8.6-50 mg Tablet Discontinued 2 {tbl} PO TWICE DAILY NEEDED as needed for Constipation 0 September 26, 2024 12:00am October 09, 2024 8:51am Vit,Ucko45-Wztl-Mhfmp (Prenatabs Fa) 29-1 mg Tablet (6 sources) Start: 09-26-2024 End: 10-09-2024 Vit,Wlwk19-Cfmv-Rnl ic (Prenatabs Fa) 29-1 mg Tablet Discontinued 1 {tbl} PO DAILY@1200 30 September 26, 2024 12:00am October 09, 2024 8:51am Start: 09-26-2024 Vit,C qpm19-Xrxc-Xvogz (Prenatabs Fa) 29-1 mg Tablet Active 1 {tbl} PO DAILY@1200 30 September 26, 2024 12:00am Problems Active Problems Problem Classification Problem Date Documented Date Episodic/Chronic Abdominal pain (12 sources) Abdominal pain; Translations: [Unspecified abdominal pain] Onset: 11-09-2024 10-20-2024 Episodic Biliary tract disease (6 sources) Leakage of bile; Translations: [Disease of biliary tract, unspecified] Onset: 10-31-2024 10-28-2024 Chronic Biliary tract disease (20 sources) Common bile duct calculus; Translations: [Calculus of bile duct without cholangitis or cholecystitis without obstruction] Onset: 10-02-2024 09-25-2024 Episodic Fever of unknown origin (10 sources) Fever; Translations: [Fever, unspecified] 10-20-2024 Episodic Hemorrhage during ; abruptio placenta; placenta previa (2 sources) Hemorrhage in early , unspecified; Translations: [HEMORRHAGE EARLY UNS] Onset: 08-15-2023 Episodic Other complications of (1 source) Liver and biliary tract disorders in , third trimester; Translations: [Liver and biliary tract disorders in , third trimester] Onset: 10-02-2024 Episodic Other and delivery including normal (14 sources) Vaginal delivery; Translations: [Encounter for full-term uncomplicated delivery] Onset: 10-02-2024 09-25-2024 Episodic Residual codes; unclassified (14 sources) Past history of procedure; Translations: [Other specified postprocedural states] 10-09-2024 Episodic Residual codes; unclassified (1 source) Other specified postprocedural states; Translations: [Other specified postprocedural states] Onset: 11-09-2024 Episodic Spontaneous (1 source) Incomplete spontaneous without complication; Translations: [INCOMPL SPONT AB W/O COMPLICATION] Onset: 08-19-2023 Episodic Unclassified (6 sources) As scheduled Unclassified (4 sources) Call the office on Thursday 10/26 to schedule an appt to have the drain removed. Past or Other Problems Problem Classification Problem Date Documented Da te Episodic/Chronic NEGATED: Highlighted row has been ruled out!Unclassified (2 sources) No Problem Information Available Results Test Name Value Interpretation Reference Range Facility Surgery Visit Reporton 11-12 Surgery Visit Report [facility] [address] [place] [address] OFFICE VISIT Date of Service: 11/12/24 MR#: [id number] Acct: [id number] Name: LUCY CROWLEY V Rep #: [id number] : 2000 Provider: Dr. Aquilino rios MD Age/Sex: 24/F Location: [facility] Status: Signed Intake Vital Signs 10/20/24 21:23 Height 5 ft 6 in Intake Visit Reasons: S/P LAP JOSE M Chief Complaint: s/p cholecystectomy Accompanied by: Is patient in pain?: No Allergies No Known Allergies Allergy (Verified 11/12/24 09:00) Medications ???Medication ???Instructions ???Recorded ???Confirmed ???Type NK 11/12/24 11/12/24 History Subjective Details: The patient is a 24-year-old female who recently underwent a subtotal cholecystectomy for extremely inflamed and chronically thickened gallbladder. She developed a bile leak about a week after the procedure. She had already had a sphincterotomy and stent placed. AYSE drain was draining bilious output. Arrangements were made with GI to place a larger stent and exchange for the current stent. She is currently scheduled for this tomorrow. She called the office late last week stating that her output had become much more clear and the output volume went down as well. I recommended she be seen in the office to determine if this bile leak has resolved spontaneously and to determine if ERCP and stent exchange was even necessary. She states that she is doing well and not having any issues or problems. She states that yesterday it was quite clear and light in color however today it does seem a bit darker. On examination the output does appear bilious but dilute. Objective Details: She is alert and oriented x 3. She is in no acute distress. Examination of the AYSE drain reveals what initially appeared to be serous fluid in the AYSE drain tubing however after this was stripped several times this appeared to be more bilious in the bulb. The volume was about 15 to 20 cc since 7 AM this morning. She states that it has been about 20 to 30/day recently Coding Level of Care Code Global Post Op Diagnoses Hx of cholecystectomy Z90.49 Bile leak K83.9 [facility] Medical History (Updated 11/11/24 @ 12:39 by Jessica Penaloza) Wears glasses Non-smoker Bile leak Biliary colic Surgical History (Updated 11/11/24 @ 12:39 by Jessica Penaloza) History of ERCP Hx of cholecystectomy Hx of appendectomy Family History Mother No problems noted. Father No problems noted. Social History household members: spouse, children and other details: 2 older children at home, 1 miscarriage, 1 09/24/24. Smoking Status: Never smoker alcohol intake: never substance use type: does not use Assessment and Plan (No Qualifiers) Assessment and Plan (1) Hx of cholecystectomy: Status: Acute Comment: partial with AYSE, 10/21/2024 (2) Bile leak: Status: Acute Plan: The patient is a 24-year-old female status post a subtotal cholecystectomy. She had a postprocedure bile leak which seems to be decreasing although is still present. She is scheduled for ERCP and stent exchange tomorrow with Dr. Chacon. I feel that proceeding with ERCP/stent exchange is still warranted. I did send a message to Dr. Chacon notifying him of this. All questions and concerns were addressed. 11/12/24 1037 Date Aquilino Collins MD Cosign Signature: Date (if applicable) CC: Dr. Heather Ruby, Normal [facility] Visit Repor ton 11-03-2024 Gastroenterology Visit Report [facility] [address] [place] [address] OFFICE VISIT Date of Service: 11/03/24 MR#: [id number] Acct: [id number] Name: LUCY CROWLEY V Rep #: [id number] : 2000 Provider: CARMEN Castillo Age/Sex: 24/F Location: [facility] Status: Signed Intake Vital Signs 10/20/24 21:23 Height 5 ft 6 in Intake Visit Reasons: DISCUSS BIGGER STENTS -PER DR COLLINS Chief Complaint: s/p cholecystectomy Allergies No Known Allergies Allergy (Verified 11/03/24 14:35) Medications ???Medication ???Instructions ???Recorded ???Confirmed ???Type amoxicillin 500 mg-potassium 1 tab PO BID 10 days #20 tabs 10/0911/03/24 Rx clavulanate 125 mg tablet (Augmentin) PFSH Medical History Bile leak Biliary colic Surgical History Hx of cholecystectomy Hx of appendectomy Family History Mother No problems noted. Father No problems noted. Social History household members: spouse, children and other details: 2 older children at home, 1 miscarriage, 1 09/24/24. Smoking Status: Never smoker alcohol intake: never substance use type: does not use HPI HPI Chief Complaint: s/p cholecystectomy Details: ULCY CROWLEY, is a 24 F who presents to the office today for f/u. [facility] admission 09.25.24-09.26.24 for biliary colic with elevated bili (4.8), AST (350), ALT (371) and ALP (200). US showing filing defects in gallbladder and CBD. She underwent ERCP with stone removal and CBD and pancreatic stent placement. Surgical consultation but pt decided to have her surgery at [facility]. OV 5.2.25 Pt here today for f/u after hospital admission. She is feeling well after having the stent and being on antibiotics. SHe has also been eating a low fat diet. She was seen by her surgeon at [facility] for cholecystectomy however he requested the CBD stent be removed before her performs surgical operation. She was scheduled for ERCP with stent pull. [facility] ED 5 with fever. Work up revealing cholecystitis. Underwent laparoscopic cholecystectomy. Gallbladder was thickened and very inflammation therefore subtotal cholecystectomy performed with AYSE drain. [facility] OV 5..25 with suspected bile leak. HIDA scan without CCK positive for bile leak. Dr. Collins consulted with Dr. Chacon who recommended oral antibiotic. HIDA 5..25 Abnormal radiotracer uptake within the region of the gallbladder fossa/residual gallbladder, which is indeterminate in significance given history of partial cholecystectomy. Correlation with patient history and surgical report is recommended. If clinically indicated, CT abdomen could be obtained for further evaluation [facility] OV 5..25 OV 5.25 Pt here today to discuss upsizing her stent per Dr. Bettencourt recommendation. She feels well with today no abdominal pain, fever or nausea. She continues to have output from her drain. Saturday and Saturday she had around 20-30 cc of output but today she has had about 40 cc so far. ROS Const Constitutional: No fatigue, fever(s) or weight change ENT ENT: No difficulty swallowing Gastro GI: No abdominal pain, belching, bloating, change in bowel habits, change in stool character, coffee ground emesis, constipation, cramping, diarrhea, heartburn, difficulty swallowing, feeling full early, excessive flatus, incontinent of stools, Vomiting blood/hematemesis, Blood in stool, loose stools, Black,tarry stools, nausea/dyspepsia, pain with swallowing, vomiting or other Musc Musculoskeletal: No joint pain Skin Skin: No yellowing of the eye or itchy eyes Psych Psychiatric: No anxiety and No depression Endo Endocrine: No fatigue or weight change Aller/Imm Allergy/Immunologic: No itchy eyes Tai/Lymp Hematologic/Lymphatic: No easy bleeding or easy bruising Exam Const General: cooperative Resp Effort Inspection: normal respiratory effort GI Inspection: normal to inspection and other (AYSE drain wiht bilious output ) Assessment and Plan Assessment and Plan (1) Bile leak: Status: Acute Plan: Lucy is a 24 yo female pt here today for f/u. Pt established with I while in admitted to the hospital 09.25.24-09.26.24 with cholecystitis and choledocholithiasis, She underwent ERCP with stone removal and stent placement. Pt decided to see her surgeon at [facility] for cholecystectomy however he advised she have the stent removed before proceeding with cholecystectomy. She was scheduled for stent pull however she presented to the ED with fever and US revealing cholecystitis. She underwent subtotal cholecystectomy with AYSE drain placement on 10.21.24. She was seen for f/u with [facility] o (more content not included)... Normal [facility] Surgery Visit Reporton 11-03 Surgery Visit Report [facility] [address] [place] [address] OFFICE VISIT Date of Service: 11/03/24 MR#: [id number] Acct: [id number] Name: LUCY CROWLEY V Rep #: [id number] : 2000 Provider: Dr. Aquilino rios MD Age/Sex: 24/F Location: [facility] Status: Signed Intake Vital Signs 10/20/24 21:23 Height 5 ft 6 in Intake Visit Reasons: S/P GALLBADDER - SELF PAY Chief Complaint: f/u partial cholecystectomy and drain removal Allergies No Known Allergies Allergy (Verified 11/03/24 14:35) Medications ???Medication ???Instructions ???Recorded ???Confirmed ???Type amoxicillin 500 mg-potassium 1 tab PO BID 10 days #20 tabs 10/0911/03/24 Rx clavulanate 125 mg tablet (Augmentin) Subjective Details: The patient is a 24-year-old female status post a recent subtotal cholecystectomy. About a month prior she developed choledocholithiasis towards the end of her . She was induced and ERCP was performed. At that time a sphincterotomy and stent placement was performed. About a month later she developed acute cholecystitis. Her gallbladder was extremely inflamed and so a subtotal cholecystectomy was performed. When seen for postoperative visit about a week ago it was noted that she had just developed some bilious drainage from her AYSE drain. HIDA scan confirmed a leak. She was placed on antibiotics and she returns today for post op visit. Initially her bilious output decreased however it then increased. For the past 24 hours she has had about 120 cc of bilious tinged fluid. I had previously discussed with GI and they were planning to do a larger stent. She is to follow-up with GI this afternoon. She denies any fevers or chills. No nausea or vomiting. She states that she can actually eat without biliary colic symptoms Objective Details: She is alert and oriented x 3. She is in no acute distress. Head is normocephalic and atraumatic. Pupils equal round and reactive to light. Abdomen is soft, nontender and nondistended. AYSE drain in place and producing what appeared to be a diluted bilious fluid. Coding Level of Care Code Global Post Op Diagnoses Hx of cholecystectomy Z90.49 Bile leak K83.9 [facility] Medical History Bile leak Biliary colic Surgical History Hx of cholecystectomy Hx of appendectomy Family History Mother No problems noted. Father No problems noted. Social History household members: spouse, children and other details: 2 older children at home, 1 miscarriage, 1 09/24/24. Smoking Status: Never smoker alcohol intake: never substance use type: does not use Assessment and Plan (No Qualifiers) Assessment and Plan (1) Hx of cholecystectomy: Status: Acute Comment: partial with AYSE (2) Bile leak: Status: Acute Plan: The patient is a 24-year-old female status post a subtotal cholecystectomy who developed a postoperative bile leak even despite ERCP and sphincterotomy with stent placement prior to the surgery. She clinically is doing fine and is stable. She is meeting with GI later today to discuss increasing stent size in hopes to occlude her bowel leak. I recommend she follow-up again in about a week. She should call if she has any clinical worsening. She and her are agreeable to this plan. 11/04/24 1307 Date Aquilino Collins MD Cosigner Signature: Date (if applicable) CC: Normal [facility] Hepatobilliary Imagingon Hepatobilliary Imaging [facility] Imaging Services [address] [place] [address] Hepatobilliary Imaging MR#: [id number] Acct: [id number] Name: LUCY CROWLEY V Rep #: [id number] : 2000 F 24 From: Kaitlin Martin nd, MD PCP: Dr. Heather Ruby DO Status: [facility] Study: Hepatobilliary Imaging Date of Exam: 10/28/24 Exam# [id number] Ordering Dr: Aquilino Collins MD PROCEDURE: HEPATOBILIARY IMAGING 10/28/2024 REASON FOR EXAM: 24-year-old female, history of partial cholecystectomy with drain placement approximately 1 week ago. Concern for biliary leak. TECHNIQUE: Intravenous Choletec with planar imaging of the abdomen. RADIOPHARMACEUTICAL: 5.8 mCi of Mebrofenin COMPARISON: Gallbladder ultrasound 10/20/2024. ERCP 09/25/2024. FINDINGS: There is good uptake of the radiopharmaceutical by the liver. There is abnormal radiotracer pooling within the region of the gallbladder fossa/residual gallbladder (given history of partial cholecystectomy). Additional abnormal radiotracer pooling region of the common bile duct, however there is normal radiotracer uptake within the small bowel. NM/Hepatobilliary Imaging IMPRESSION: Abnormal radiotracer uptake within the region of the gallbladder fossa/residual gallbladder, which is indeterminate in significance given history of partial cholecystectomy. Correlation with patient history and surgical report is recommended. If clinically indicated, CT abdomen could be obtained for further evaluation. Reading Location: [id number] CC: Dr. Heather Ruby DO; Dr. Aquilino Collins MD Lens Finisher: Signed Normal [facility] Surgery Visit Reporton 10-28 Surgery Visit Report [facility] [address] [place] [address]. [address] [place] [address] OFFICE VISIT Date of Service: 10/28/24 MR#: [id number] Acct: [id number] Name: LUCY CROWLEY V Rep #: [id number] : 2000 Provider: Dr. Aquilino rios MD Age/Sex: 24/F Location: [facility] Status: Signed Intake Vital Signs 10/20/24 21:23 Height 5 ft 6 in Intake Visit Reasons: DRAIN REMOVAL DOS 10/21 Chief Complaint: f/u partial cholecystectomy and drain removal Financial Quantitative Analyst Required: No Is patient in pain?: No Allergies No Known Allergies Allergy (Verified 10/28/24 13:11) Medications ???Medication ???Instructions ???Recorded ???Confirmed ???Type amoxicillin 500 mg-potassium 1 tab PO BID 10 days #20 tabs 10/0910/29/24 Rx clavulanate 125 mg tablet (Augmentin) Have you fallen in the past year?: No Subjective Details: The patient is a 24-year-old female who is following up today after recent subtotal cholecystectomy surgery for AYSE drain removal. Patient states that overall she has been feeling reasonably well up until last evening when she began having some increasing pain in the right upper quadrant. She did also notice last night and this morning that her drain output color has changed. Previously this was a clear yellow however now last night and this morning she noted that this drainage became more onelia-jagdish green color. She states that she had about 50 cc out yesterday and about 20 cc so far today. She presents today for evaluation. She denies any current fevers or chills. Objective Details: She is alert and oriented x 3. She is in no acute distress. Abdomen is soft, nondistended. Minimal tenderness to palpation. AYSE drain shows pale bilious output. 20 cc in current AYSE bulb. Coding Level of Care Code Global Post Op Diagnoses Bile leak K83.9 [facility] Medical History (Updated 10/29/24 @ 00:00 by Karine Fuentes) Bile leak Biliary colic Surgical History (Updated 10/28/24 @ 13:12 by Letty Child) Hx of cholecystectomy Hx of appendectomy Family History Mother No problems noted. Father No problems noted. Social History household members: spouse, children and other details: 2 older children at home, 1 miscarriage, 1 09/24/24. Smoking Status: Never smoker alcohol intake: never substance use type: does not use Assessment and Plan (No Qualifiers) Assessment and Plan (1) Bile leak: Status: Acute Plan: The patient is a 24-year-old female status post a subtotal cholecystectomy performed about a week ago for an extremely inflamed gallbladder. It was decided to perform a subtotal cholecystectomy as opposed to a full complete cholecystectomy due to the fact that her gallbladder was extremely thickened and inflamed and we are unable to establish safe identification of the cystic duct and cystic artery due to the level of inflammation. Patient already had a biliary stent and sphincterotomy performed about a month ago. I suspect this is a bile leak. HIDA scan without CCK was ordered stat. This eventually came back as positive for biliary leak. This was discussed with GI. Recommendations were to start her on oral antibiotics. She will contact Dr. Chacon's office to consider upsizing the stent. In the meantime I recommended that she closely monitor her output from the AYSE drain. Certainly if her symptoms worsen or if she develops fevers chills etc. she should return to the emergency department. Patient and are agreeable to this plan. 10/29/24 1316 Date Aquilino Collins MD Cosigner Signature: Date (if applicable) CC: Dr. Heather Ruby, DO Normal [facility] Urine Cultureon 10-25-2024 URC #2 Below infection l evel. Streptococcus gallolyticus pas [place] Count 11,000-25,000 Mixed Gram Positive Organisms Mixed Gram Positive Organisms MIXC Mixed contaminants. Submit a new specimen if indicated. Streptococcus gallolyticus pas: REACTION Ampicillin Islt RUSSELL <=0.25 Penicillin G Islt RUSSELL 0.12 S Cefotaxime Islt RUSSELL <=0.12 cefTRIAXone Islt RUSSELL <=0.12 S Linezolid Islt RUSSELL <=2 S Vancomycin Islt RUSSELL 0.25 S Normal [facility] Comment on above: Performed By: #### L 500.4050 #### [facility] [address] [place], [place] [address], [address] Absolute lymphocyte countOrd ered By: Aquilino Collins on 10-23-2024 Lymphocytes Auto (Unsp spec) [#/Vol] 3.48 10*3/uL 0.83-4.51 [facility] Absolute neutrophil countOrd ered By: Aquilino Collins on 10-23-2024 Neutrophils (Bld) [#/Vol] 6.6 10*3/uL 2.0-7.7 [facility] Anion gap in Serum or Plasma Ordered By: Wendy Santana on 10-23-2024 Anion gap [Moles/Vol] 11 mmol/L 5-15 [facility] Automated lymphocyte count a s percentage of total leukocytesOrdered By: Aquilino Collins on 10-23-2024 Lymphocytes/100 WBC Auto (Unsp spec) 30.5 % 19-41 [facility] BUN/creatinine ratioOrdered By: Wendy Santana on 10-23-2024 Urea nitrogen/Creatinine [Mass ratio] 17.3 mg/mg 10-20 [facility] Basophil percentageOrdered B y: Aquilino Collins on 10-23-2024 Basophils/100 WBC (Bld) 0.4 % 0-1 [facility] Bilirubin, totalOrdered By: Wendy Santana on 10-23-2024 Bilirubin [Mass/Vol] 0.21 mg/dL 0.00-1.30 [facility] CBC W/Diff, Automatedon 10-08-2024 Absolute Lymph 3.48 X10 3/uL Normal 0.83-4.51 [facility] Comment on above: Performed By: #### L 400.0001 #### [facility] [address] [place], [address] Absolute Neut 6.6 X10 3/uL Normal 2.0-7.7 [facility] Comment on above: Performed By: #### L 400.0001 #### [facility] [address] [place], [address] Basophils/100 WBC (Bld) 0.4 % Normal 0-1 [facility] Comment on above: Performed By: #### L 400.0001 #### [facility] [address] [place], [address] Eosinophils/100 WBC (Bld) 5.8 % High 0-5 [facility] Comment on above: Performed By: #### L 400.0001 #### [facility] [address] [place], [address] Erythrocyte distribution width (RBC) [Ratio] 11.9 % Normal 11.6-14.6 [facility] Comment on above: Performed By: #### L 400.0001 #### [facility] [address] [place], [address] Hematocrit (Bld) [Volume fraction] 32.9 % Low 37-47 [facility] Comment on above: Performed By: #### L 400.0001 #### [facility] [address] [place], [address] Hemoglobin (Bld) [Mass/Vol] 11.1 g/dL Low 12.0-15.0 [facility] Comment on above: Performed By: #### L 400.0001 #### [facility] [address] [place], [address] IG% 1.000 High 0.0-0.9 [facility] Comment on above: Result Comment: IG% - Immature Granulocytes (promyelocytes, myelocytes and metamyelocytes) > 1% indicates that a LEFT SHIFT is Present. Performed By: #### L 400.0001 #### [facility] [address] [place], [address] Lymphocytes/100 WBC (Bld) 30.5 % Normal 19-41 [facility] Comment on above: Performed By: #### L 400.0001 #### [facility] [address] [place], [address] MCH (RBC) [Entitic mass] 30.5 pg Normal 27.0-32.0 [facility] Comment on above: Performed By: #### L 400.0001 #### [facility] [address] [place], [address] MCHC (RBC) [Mass/Vol] 33.7 g/dL Normal 32-36 [facility] Comment on above: Performed By: #### L 400.0001 #### [facility] [address] [place], [address] MCV (RBC) [Entitic vol] 90.4 fL Normal 81-99 [facility] Comment on above: Performed By: #### L 400.0001 #### [facility] [address] [place], [address] Monocytes/100 WBC (Bld) 4.4 % Normal 0-10 [facility] Comment on above: Performed By: #### L 400.0001 #### [facility] [address] [place], [address] Neutrophils/100 WBC (Bld) 57.9 % Normal 47-70 [facility] Comment on above: Performed By: #### L 400.0001 #### [facility] [address] [place], [address] Nucleated RBC (Bld) [#/Vol] 0 10*3/uL Normal 0-5 [facility] Comment on above: Performed By: #### L 400.0001 #### [facility] [address] [place], [address] Platelet mean volume (Bld) [Entitic vol] 9.9 fL Normal 6.2-12.0 [facility] Comment on above: Performed By: #### L 400.0001 #### [facility] [address] [place], [address] Platelets (Bld) [#/Vol] 271 10*3/uL Normal 150-450 [facility] Comment on above: Performed By: #### L 400.0001 #### [facility] [address] [place], [address] RBC (Bld) [#/Vol] 3.64 10*6/uL Low 4.2-5.4 [facility] Comment on above: Performed By: #### L 400.0001 #### [facility] [address] [place], [address] RDW SD 39.5 fl Normal 35.1-43.9 [facility] Comment on above: Performed By: #### L 400.0001 #### [facility] [address] [place], [address] WBC (Bld) [#/Vol] 11.4 10*3/uL High 4.4-11.0 [facility] Comment on above: Performed By: #### L 400.0001 #### [facility] [address] [place], [address] Carbon dioxide, total [Moles /volume] in Central venous bloodOrdered By: Wendy Santana on 10-23-2024 CO2 [Moles/Vol] 24.3 mmol/L 21.0-32.0 [facility] Chloride assayOrdered By: Zia Santana on 10-23-2024 Chloride [Moles/Vol] 107 mmol/L 98-108 [facility] Comprehensive Metabolic Prof ilon 10-23-2024 Albumin [Mass/Vol] 3.0 g/dL Low 3.5-5.0 [facility] Comment on above: Performed By: #### L 500.4050 #### [facility] [address] [place], [place], [id number] Albumin/Globulin [Mass ratio] 1.0 {ratio} Normal 0.9-2.4 [facility] Comment on above: Performed By: #### L 500.4050 #### [facility] [address] [place], [place], [id number] ALK PHOS 75 U/L Normal 35-104 [facility] Comment on above: Performed By: #### L 500.4050 #### [facility] [address] [place], [place], [id number] ALT [Catalytic activity/Vol] 10 U/L Normal <=34 [facility] Comment on above: Performed By: #### L [id number] #### [facility] [address] [place], [place], [id number] AST [Catalytic activity/Vol] 11 U/L Normal <=31 [facility] Comment on above: Performed By: #### L [id number] #### [facility] [address] [place], [place], [id number] Bilirubin [Mass/Vol] 0.21 mg/dL Normal 0.00-1.30 [facility] Comment on above: Performed By: #### L 500.4050 #### [facility] [address] [place], [address] BUN/CRE 17.3 RATIO Normal 10-20 [facility] Comment on above: Performed By: #### L 500.4050 #### [facility] [address] [place], [address] Calcium [Mass/Vol] 8.6 mg/dL Normal 7.6-11.0 [facility] Comment on above: Performed By: #### L 500.4050 #### [facility] [address] [place], [address] Chloride [Moles/Vol] 107 mmol/L Normal 98-108 [facility] Comment on above: Performed By: #### L [id number] #### [facility] [address] [place], [address] CO2 [Moles/Vol] 24.3 mmol/L Normal 21.0-32.0 [facility] Comment on above: Performed By: #### L [id number] #### [facility] [address] [place], [address] Creatinine [Mass/Vol] 0.76 mg/dL Normal 0.70-1.20 [facility] Comment on above: Performed By: #### L 500.4050 #### [facility] [address] [place], [address] ECRCL 127.58 ml/min Normal 50-250 [facility] Comment on above: Performed By: #### L [id number] #### [facility] [address] [place], [address] GAP 11 Normal 5-15 [facility] Comment on above: Performed By: #### L 500.4050 #### [facility] [address] [place], [address] GFR/1.73 sq M.predicted among non-blacks MDRD (S/P/Bld) [Vol rate/Area] 111 mL/min/{1.73_m2} Normal >60 [facility] Comment on above: Result Comment: mL/m in/1.73m2 CKD-EPI Creatinine Equation (2020) Performed By: #### L 500.4050 #### [facility] [address] [place], [address] Globulin (S) [Mass/Vol] 2.8 g/dL Normal 2.2-4.2 [facility] Comment on above: Performed By: #### L 500.4050 #### [facility] [address] [place], [address] Glucose [Mass/Vol] 83 mg/dL Normal 70-99 [facility] Comment on above: Performed By: #### L [id number] #### [facility] [address] [place], [address] Potassium [Moles/Vol] 3.4 mmol/L Normal 3.3-5.1 [facility] Comment on above: Performed By: #### L 500.4050 #### [facility] [address] [place], [address] Sodium [Moles/Vol] 142 mmol/L Normal 133-145 [facility] Comment on above: Performed By: #### L [id number] #### [facility] [address] [place], [address] T PROT 5.8 g/dL Low 5.9-8.4 [facility] Comment on above: Performed By: #### L 500.4050 #### [facility] [address] [place], [address] Urea nitrogen [Mass/Vol] 13 mg/dL Normal 4-19 [facility] Comment on above: Performed By: #### L 500.4050 #### [facility] [address] [place], [address] Eosinophil percentageOrdered By: Aquilino Collins on 10-23-2024 Eosinophils/100 WBC (Bld) 5.8 % High 0-5 [facility] Erythrocyte distribution wid th ratioOrdered By: Aquilino Collins on 10-23-2024 Erythrocyte distribution width (RBC) [Ratio] 11.9 % 11.6-14.6 [facility] Erythrocyte distribution wid th standard deviationOrdered By: Aquilino Collins on 10-23-2024 Erythrocyte distribution width (RBC) [Ratio] 39.5 fl 35.1-43.9 [facility] Glomerular filtration rate ( GFR) estimation/1.73 sq m using serum, plasma, or whole bOrdered By: Wendy Santana on 10-23-2024 GFR/1.73 sq M.predicted among non-blacks MDRD (S/P/Bld) [Vol rate/Area] 111 mL/min/{1.73_m2} >60 [facility] Comment on above: mL/min/1.73m2 CKD-EP I Creatinine Equation (2020) Hematocrit Auto (Bld) [Volum e fraction]Ordered By: Aquilino Collins on 10-23-2024 Hematocrit (Bld) [Volume fraction] 32.9 % Low 37-47 [facility] Hemoglobin measurementOrdere d By: Aquilino Collins on 10-23-2024 Hemoglobin (Bld) [Mass/Vol] 11.1 g/dL Low 12.0-15.0 [facility] Immature granulocytes/100 WB C Auto (Bld)Ordered By: Aquilino Collins on 10-23-2024 Immature granulocytes/100 WBC (Bld) 1.000 % High 0.0-0.9 [facility] Comment on above: IG% - Immature Granu locytes (promyelocytes, myelocytes and metamyelocytes) > 1% indicates that a LEFT SHIFT is Present. Laboratory - Chemistry and C hemistry - challengeOrdered By: Wendy Santana on 10-23-2024 AST [Catalytic activity/Vol] 11 U/L <32 [facility] MCV (mean corpuscular volume ) determinationOrdered By: Aquilino Collins on 10-23-2024 MCV (RBC) [Entitic vol] 90.4 fL 81-99 [facility] Mean corpuscular hemoglobin (MCH) determinationOrdered By: Aquilino Collins on 10-23-2024 MCH (RBC) [Entitic mass] 30.5 pg 27.0-32.0 [facility] Mean corpuscular hemoglobin concentration (MCHC) determinationOrdered By: Aquilino Collins on 10-23-2024 MCHC (RBC) [Mass/Vol] 33.7 g/dL 32-36 [facility] Mean platelet volume determi nationOrdered By: Aquilino Collins on 10-23-2024 Platelet mean volume (Bld) [Entitic vol] 9.9 fL 6.2-12.0 [facility] Monocyte percentageOrdered B y: Aquilino Collins on 10-23-2024 Monocytes/100 WBC (Bld) 4.4 % 0-10 [facility] Neutrophil percentageOrdered By: Aquilino Collins on 10-23-2024 Neutrophils/100 WBC (Bld) 57.9 % 47-70 [facility] Nucleated red blood cell per centageOrdered By: Aquilino Collins on 10-23-2024 Nucleated RBC/100 WBC (Bld) [Ratio] 0 % 0-5 [facility] Platelet countOrdered By: St steven Collins on 10-23-2024 Platelets (Bld) [#/Vol] 271 10*3/uL 150-450 [facility] Potassium measurement (mass/ volume)Ordered By: Wendy Santana on 10-23-2024 Potassium (Unsp spec) [Mass/Vol] 3.4 mmol/L 3.3-5.1 [facility] RBC Auto (Bld) [#/Vol]Ordere d By: Aquilino Collins on 10-23-2024 RBC (Bld) [#/Vol] 3.64 10*6/uL Low 4.2-5.4 [facility] Serum creatinine measurement (mass/volume)Ordered By: Wendy Santana on 10-23-2024 Creatinine [Mass/Vol] 0.76 mg/dL 0.70-1.20 [facility] Serum globulin measurementOr dered By: Wendy Santana on 10-23-2024 Globulin (S) [Mass/Vol] 2.8 g/dL 2.2-4.2 [facility] Serum glucose measurement (m ass/volume)Ordered By: Wendy Santana on 10-23-2024 Glucose [Mass/Vol] 83 mg/dL 70-99 [facility] Serum or plasma alanine allan otransferase (ALT) measurementOrdered By: Wendy Santana on 10-23-2024 ALT [Catalytic activity/Vol] 10 U/L <35 [facility] Serum or plasma albumin jeimy urement (mass/volume)Ordered By: Wendy Santana on 10-23-2024 Albumin [Mass/Vol] 3.0 g/dL Low 3.5-5.0 [facility] Serum or plasma albumin/glob ulin mass ratioOrdered By: Wendy Santana on 10-23-2024 Albumin/Globulin [Mass ratio] 1.0 {ratio} 0.9-2.4 [facility] Serum or plasma alkaline chaka sphatase measurementOrdered By: Wendy Santana on 10-23-2024 ALP [Catalytic activity/Vol] 75 U/L 35-104 [facility] Serum or plasma calcium jeimy urement (mass/volume)Ordered By: Wendy Santana on 10-23-2024 Calcium [Mass/Vol] 8.6 mg/dL 7.6-11.0 [facility] Serum or plasma urea nitroge n measurement (mass/volume)Ordered By: Wendy Santana on 10-23-2024 Urea nitrogen [Mass/Vol] 13 mg/dL 4-19 [facility] Sodium levelOrdered By: Xiang Knott on 10-23-2024 Sodium [Moles/Vol] 142 mmol/L 133-145 [facility] Total proteinOrdered By: Malia Santana on 10-23-2024 Protein [Mass/Vol] 5.8 g/dL Low 5.9-8.4 [facility] White blood cell (WBC) count Ordered By: Aquilino Collins on 10-23-2024 WBC (Bld) [#/Vol] 11.4 10*3/uL High 4.4-11.0 [facility] CBC W/Diff, Automatedon 10-08 Absolute Lymph 1.35 X10 3/uL Normal 0.83-4.51 [facility] Comment on above: Performed By: #### L 100.0100, L500.4050 #### [facility] [address] [place], [address] Absolute Neut 9.7 X10 3/uL High 2.0-7.7 [facility] Comment on above: Performed By: #### L 100.0100, L500.4050 #### [facility] [address] [place], [address] Basophils/100 WBC (Bld) 0.3 % Normal 0-1 [facility] Comment on above: Performed By: #### L 100.0100, L500.4050 #### [facility] [address] [place], [address] Eosinophils/100 WBC (Bld) 0.0 % Normal 0-5 [facility] Comment on above: Performed By: #### L 100.0100, L500.4050 #### [facility] [address] [place], [address] Erythrocyte distribution width (RBC) [Ratio] 11.8 % Normal 11.6-14.6 [facility] Comment on above: Performed By: #### L 100.0100, L500.4050 #### [facility] [address] [place], [address] Hematocrit (Bld) [Volume fraction] 34.5 % Low 37-47 [facility] Comment on above: Performed By: #### L 100.0100, L500.4050 #### [facility] [address] [place], [address] Hemoglobin (Bld) [Mass/Vol] 11.8 g/dL Low 12.0-15.0 [facility] Comment on above: Performed By: #### L 100.0100, L500.4050 #### [facility] [address] [place], [address] IG% 0.900 Normal 0.0-0.9 [facility] Comment on above: Result Comment: IG% - Immature Granulocytes (promyelocytes, myelocytes and metamyelocytes) > 1% indicates that a LEFT SHIFT is Present. Performed By: #### L 100.0100, L500.4050 #### [facility] [address] [place], [address] Lymphocytes/100 WBC (Bld) 11.5 % Low 19-41 [facility] Comment on above: Performed By: #### L 100.0100, L500.4050 #### [facility] [address] [place], [address] MCH (RBC) [Entitic mass] 30.8 pg Normal 27.0-32.0 [facility] Comment on above: Performed By: #### L 100.0100, L500.4050 #### [facility] [address] [place], [address] MCHC (RBC) [Mass/Vol] 34.2 g/dL Normal 32-36 [facility] Comment on above: Performed By: #### L 100.0100, L500.4050 #### [facility] [address] [place], [address] MCV (RBC) [Entitic vol] 90.1 fL Normal 81-99 [facility] Comment on above: Performed By: #### L 100.0100, L500.4050 #### [facility] [address] [place], [address] Monocytes/100 WBC (Bld) 5.3 % Normal 0-10 [facility] Comment on above: Performed By: #### L 100.0100, L500.4050 #### [facility] [address] [place], [address] Neutrophils/100 WBC (Bld) 82.0 % High 47-70 [facility] Comment on above: Performed By: #### L 100.0100, L500.4050 #### [facility] [address] [place], [address] Nucleated RBC (Bld) [#/Vol] 0 10*3/uL Normal 0-5 [facility] Comment on above: Performed By: #### L 100.0100, L500.4050 #### [facility] [address] [place], [address] Platelet mean volume (Bld) [Entitic vol] 10.2 fL Normal 6.2-12.0 [facility] Comment on above: Performed By: #### L 100.0100, L500.4050 #### [facility] [address] [place], [address] Platelets (Bld) [#/Vol] 228 10*3/uL Normal 150-450 [facility] Comment on above: Performed By: #### L 100.0100, L500.4050 #### [facility] [address] [place], [address] RBC (Bld) [#/Vol] 3.83 10*6/uL Low 4.2-5.4 [facility] Comment on above: Performed By: #### L 100.0100, L500.4050 #### [facility] [address] [place], [address] RDW SD 38.6 fl Normal 35.1-43.9 [facility] Comment on above: Performed By: #### L 100.0100, L500.4050 #### [facility] [address] [place], [address] WBC (Bld) [#/Vol] 11.8 10*3/uL High 4.4-11.0 [facility] Comment on above: Performed By: #### L 100.0100, L500.4050 #### [facility] [address] [place], [address] Comprehensive Metabolic Prof ilon 10-22-2024 Albumin [Mass/Vol] 3.2 g/dL Low 3.5-5.0 [facility] Comment on above: Performed By: #### L 500.4050 #### [facility] [address] [place], [address] Albumin/Globulin [Mass ratio] 1.0 {ratio} Normal 0.9-2.4 [facility] Comment on above: Performed By: #### L 500.4050 #### [facility] [address] [place], [address] ALK PHOS 91 U/L Normal 35-104 [facility] Comment on above: Performed By: #### L 500.4050 #### [facility] [address] [place], [address] ALT [Catalytic activity/Vol] 12 U/L Normal <=34 [facility] Comment on above: Performed By: #### L 500.4050 #### [facility] [address] [place], [address] AST [Catalytic activity/Vol] 14 U/L Normal <=31 [facility] Comment on above: Performed By: #### L 500.4050 #### [facility] [address] [place], [address] Bilirubin [Mass/Vol] 0.28 mg/dL Normal 0.00-1.30 [facility] Comment on above: Performed By: #### L 500.4050 #### [facility] [address] [place], [address] BUN/CRE 10.9 RATIO Normal 10-20 [facility] Comment on above: Performed By: #### L 500.4050 #### [facility] [address] [place], [address] Calcium [Mass/Vol] 8.8 mg/dL Normal 7.6-11.0 [facility] Comment on above: Performed By: #### L 500.4050 #### [facility] [address] [place], [address] Chloride [Moles/Vol] 105 mmol/L Normal 98-108 [facility] Comment on above: Performed By: #### L 500.4050 #### [facility] [address] [place], [address] CO2 [Moles/Vol] 21.9 mmol/L Normal 21.0-32.0 [facility] Comment on above: Performed By: #### L 500.4050 #### [facility] [address] [place], [address] Creatinine [Mass/Vol] 0.62 mg/dL Low 0.70-1.20 [facility] Comment on above: Performed By: #### L 500.4050 #### [facility] [address] [place], [address] ECRCL 156.39 ml/min Normal 50-250 [facility] Comment on above: Performed By: #### L 500.4050 #### [facility] [address] [place], [address] GAP 12 Normal 5-15 [facility] Comment on above: Performed By: #### L 500.4050 #### [facility] [address] [place], [address] GFR/1.73 sq M.predicted among non-blacks MDRD (S/P/Bld) [Vol rate/Area] 127 mL/min/{1.73_m2} Normal >60 [facility] Comment on above: Result Comment: mL/m in/1.73m2 CKD-EPI Creatinine Equation (2020) Performed By: #### L 500.4050 #### [facility] [address] [place], [address] Globulin (S) [Mass/Vol] 3.2 g/dL Normal 2.2-4.2 [facility] Comment on above: Performed By: #### L 500.4050 #### [facility] [address] [place], [address] Glucose [Mass/Vol] 126 mg/dL High 70-99 [facility] Comment on above: Performed By: #### L 500.4050 #### [facility] [address] [place], [address] Potassium [Moles/Vol] 4.2 mmol/L Normal 3.3-5.1 [facility] Comment on above: Performed By: #### L 500.4050 #### [facility] [address] [place], [address] Sodium [Moles/Vol] 139 mmol/L Normal 133-145 [facility] Comment on above: Performed By: #### L 500.4050 #### [facility] [address] [place], [address] T PROT 6.4 g/dL Normal 5.9-8.4 [facility] Comment on above: Performed By: #### L 500.4050 #### [facility] [address] [place], [address] Urea nitrogen [Mass/Vol] 7 mg/dL Normal 4-19 [facility] Comment on above: Performed By: #### L 500.4050 #### [facility] [address] [place], [address] 12 Lead EKGon 10-21-2024 12 Lead EKG [facility] Services [address] [place] [address] 12 Lead EKG 10/21/24 0523 MR#: [id number] Acct: [id number] Name: LUCY CROWLEY V Rep #: [id number] : 2000 From: Hao Hduson MD Attending Dr: Dr. Aquilino Collins MD Status: DI S IN Ordering Dr: Dorian Daily MD Date: 10/21/24 Location: [facility] Sex: F C Admitted: 10/20/24 Test Reason : AM EKG Blood Pressure : */* mmHG Vent. Rate : 89 BPM Atrial Rate : 89 BPM P-R Int : 152 ms QRS Dur : 94 ms QT Int : 360 ms P-R-T Axes : 66 84 51 degrees QTcB Int : 438 ms Normal sinus rhythm Normal ECG No previous ECGs available Confirmed by TRISTAN LOPEZ, HAO ([id number]), medical transcription editor JONAS BARNES ([id number]) on 10/26/2024 9:34:49 AM Referred By: DENNIS Confirmed By: HAO HUDSON MD 10/26/24 0934 Date Hao Hudson MD CC: Dr. Dorian Daily MD; Dr. Heather Ruby DO; Dr. Aquilino Collins MD Signed Normal [facility] Activated partial thrombopla stin time (aPTT) in platelet poor plasma by coagulation aOrdered By: Dorian Daily on 10-21-2024 aPTT Coag (PPP) [Time] 35.3 s 24.1-36.2 [facility] CBC W/Diff, Automatedon 10-08 Absolute Lymph 1.15 X10 3/uL Normal 0.83-4.51 [facility] Comment on above: Performed By: #### L 100.0100, L500.4050 #### [facility] [address] [place], [place], [id number] Absolute Neut 6.5 X10 3/uL Normal 2.0-7.7 [facility] Comment on above: Performed By: #### L 100.0100, L500.4050 #### [facility] [address] [place], [address] Basophils/100 WBC (Bld) 0.4 % Normal 0-1 [facility] Comment on above: Performed By: #### L 100.0100, L500.4050 #### [facility] [address] [place], [address] Eosinophils/100 WBC (Bld) 4.0 % Normal 0-5 [facility] Comment on above: Performed By: #### L 100.0100, L500.4050 #### [facility] [address] [place], [address] Erythrocyte distribution width (RBC) [Ratio] 11.6 % Normal 11.6-14.6 [facility] Comment on above: Performed By: #### L 100.0100, L500.4050 #### [facility] [address] [place], [address] Hematocrit (Bld) [Volume fraction] 34.1 % Low 37-47 [facility] Comment on above: Performed By: #### L 100.0100, L500.4050 #### [facility] [address] [place], [address] Hemoglobin (Bld) [Mass/Vol] 11.5 g/dL Low 12.0-15.0 [facility] Comment on above: Performed By: #### L 100.0100, L500.4050 #### [facility] [address] [place], [address] IG% 0.600 Normal 0.0-0.9 [facility] Comment on above: Result Comment: IG% - Immature Granulocytes (promyelocytes, myelocytes and metamyelocytes) > 1% indicates that a LEFT SHIFT is Present. Performed By: #### L 100.0100, L500.4050 #### [facility] [address] [place], [address] Lymphocytes/100 WBC (Bld) 13.5 % Low 19-41 [facility] Comment on above: Performed By: #### L 100.0100, L500.4050 #### [facility] [address] [place], [address] MCH (RBC) [Entitic mass] 30.6 pg Normal 27.0-32.0 [facility] Comment on above: Performed By: #### L 100.0100, L500.4050 #### [facility] [address] [place], [address] MCHC (RBC) [Mass/Vol] 33.7 g/dL Normal 32-36 [facility] Comment on above: Performed By: #### L 100.0100, L500.4050 #### [facility] [address] [place], [address] MCV (RBC) [Entitic vol] 90.7 fL Normal 81-99 [facility] Comment on above: Performed By: #### L 100.0100, L500.4050 #### [facility] [address] [place], [address] Monocytes/100 WBC (Bld) 5.9 % Normal 0-10 [facility] Comment on above: Performed By: #### L 100.0100, L500.4050 #### [facility] [address] [place], [address] Neutrophils/100 WBC (Bld) 75.6 % High 47-70 [facility] Comment on above: Performed By: #### L 100.0100, L500.4050 #### [facility] [address] [place], [address] Nucleated RBC (Bld) [#/Vol] 0 10*3/uL Normal 0-5 [facility] Comment on above: Performed By: #### L 100.0100, L500.4050 #### [facility] [address] [place], [address] Platelet mean volume (Bld) [Entitic vol] 10.1 fL Normal 6.2-12.0 [facility] Comment on above: Performed By: #### L 100.0100, L500.4050 #### [facility] [address] [place], [address] Platelets (Bld) [#/Vol] 217 10*3/uL Normal 150-450 [facility] Comment on above: Performed By: #### L 100.0100, L500.4050 #### [facility] [address] [place], [address] RBC (Bld) [#/Vol] 3.76 10*6/uL Low 4.2-5.4 [facility] Comment on above: Performed By: #### L 100.0100, L500.4050 #### [facility] [address] [place], [address] RDW SD 38.5 fl Normal 35.1-43.9 [facility] Comment on above: Performed By: #### L 100.0100, L500.4050 #### [facility] [address] [place], [address] WBC (Bld) [#/Vol] 8.5 10*3/uL Normal 4.4-11.0 [facility] Comment on above: Performed By: #### L 100.0100, L500.4050 #### [facility] [address] [place], [address] [facility] 10-[facility]-2024 Albumin [Mass/Vol] 3.4 g/dL Low 3.5-5.0 [facility] Comment on above: Performed By: #### L 100.0100, L500.4050 #### [facility] [address] [place], [address] Albumin/Globulin [Mass ratio] 1.1 {ratio} Normal 0.9-2.4 [facility] Comment on above: Performed By: #### L 100.0100, L500.4050 #### [facility] [address] [place], [address] ALK PHOS 95 U/L Normal 35-104 [facility] Comment on above: Performed By: #### L 100.0100, L500.4050 #### [facility] [address] [place], [address] ALT [Catalytic activity/Vol] 10 U/L Normal <=34 [facility] Comment on above: Performed By: #### L 100.0100, L500.4050 #### [facility] [address] [place], [address] AST [Catalytic activity/Vol] 13 U/L Normal <=31 [facility] Comment on above: Performed By: #### L 100.0100, L500.4050 #### [facility] [address] [place], [address] Bilirubin [Mass/Vol] 0.46 mg/dL Normal 0.00-1.30 [facility] Comment on above: Performed By: #### L 100.0100, L500.4050 #### [facility] [address] [place], [address] BUN/CRE 12.2 RATIO Normal 10-20 [facility] Comment on above: Performed By: #### L 100.0100, L500.4050 #### [facility] [address] [place], [address] Calcium [Mass/Vol] 8.7 mg/dL Normal 7.6-11.0 [facility] Comment on above: Performed By: #### L 100.0100, L500.4050 #### [facility] [address] [place], [address] Chloride [Moles/Vol] 102 mmol/L Normal 98-108 [facility] Comment on above: Performed By: #### L 100.0100, L500.4050 #### [facility] [address] [place], [address] CO2 [Moles/Vol] 23.1 mmol/L Normal 21.0-32.0 [facility] Comment on above: Performed By: #### L 100.0100, L500.4050 #### [facility] [address] [place], [address] Creatinine [Mass/Vol] 0.68 mg/dL Low 0.70-1.20 [facility] Comment on above: Performed By: #### L 100.0100, L500.4050 #### [facility] [address] [place], [address] ECRCL 142.59 ml/min Normal 50-250 [facility] Comment on above: Performed By: #### L 100.0100, L500.4050 #### [facility] [address] [place], [address] GAP 12 Normal 5-15 [facility] Comment on above: Performed By: #### L 100.0100, L500.4050 #### [facility] [address] [place], [address] GFR/1.73 sq M.predicted among non-blacks MDRD (S/P/Bld) [Vol rate/Area] 124 mL/min/{1.73_m2} Normal >60 [facility] Comment on above: Result Comment: mL/m in/1.73m2 CKD-EPI Creatinine Equation (2020) Performed By: #### L 100.0100, L500.4050 #### [facility] [address] [place], [address] Globulin (S) [Mass/Vol] 3.1 g/dL Normal 2.2-4.2 [facility] Comment on above: Performed By: #### L 100.0100, L500.4050 #### [facility] [address] [place], [address] Glucose [Mass/Vol] 69 mg/dL Low 70-99 [facility] Comment on above: Performed By: #### L 100.0100, L500.4050 #### [facility] [address] [place], [address] Potassium [Moles/Vol] 3.3 mmol/L Normal 3.3-5.1 [facility] Comment on above: Performed By: #### L 100.0100, L500.4050 #### [facility] [address] [place], [address] Sodium [Moles/Vol] 137 mmol/L Normal 133-145 [facility] Comment on above: Performed By: #### L 100.0100, L500.4050 #### [facility] [address] [place], [address] T PROT 6.5 g/dL Normal 5.9-8.4 [facility] Comment on above: Performed By: #### L 100.0100, L500.4050 #### [facility] [address] [place], [address] Urea nitrogen [Mass/Vol] 8 mg/dL Normal 4-19 [facility] Comment on above: Performed By: #### L 100.0100, L500.4050 #### [facility] [address] [place], [address] International normalized rat io (INR) calculationOrdered By: Dorian Daily on 10-21-2024 INR Coag (Bld) [Relative time] 1.0 {INR} [facility] MR/POSTOP.ANEon 10-21-2024 MR/POSTOP.ANE [facility] Medical Records Department [address] [place] [address] Anesthesia Postop Eval I 10/21/24 1616 MR#: [id number] Acct: [id number] Name: LUCY CROWLEY V Rep #: [id number] : 2000 From: Christa Smith CRNA PCP: Dr. Heather Ruby, DO Status:ADM IN Y Race: C Location: [place] [address] Anesthesia: Postop Eval I Current Vital Signs Temperature: 98.8 F Pulse Rate: 104 Blood Pressure: 112/70 Respiratory Rate: 16 Pulse Ox: 97 Oxygen Delivery Method: Room Air Assessment Airway patent: Yes Spontaneous unlabored respirations: Yes Mental status: Awake and Calm nausea: No Vomiting: No Anesthesia Complication: No Fluid Hydration Crystalloid volume administer (ml): 1,400 Total IV fluid infused: 1,400 Progress Note Anesthesia document: Postop Eval 1 completed: Yes 10/21/24 161 Date Christa Smith MARKETING OPERATIONS SPECIALIST Cosigner Signature: Date CC: Signed Normal [facility] MR/[id number] 10-21-2024 MR/POSTOPAN2 [facility] Medical Records Department [address] [place] [address] Anesthesia Postop Eval II 10/21/24 1752 MR#: [id number] Acct: [id number] Name: LUCY CROWLEY V Rep #: [id number] : 2000 From: Dorian Daily MD PCP: Dr. Heather Ruby, DO Status:ADM IN Y Race: C Location: MS3 [id number] Anesthesia Postop Eval I Sum Postop Eval Completion status Anesthesia document: Postop Eval 1 completed: Yes Anesthesia Postop Eval I Summary Anesthesia Postop Eval I Summary: Anesthesia Postop Eval I: Assessment Summary Airway patent Yes 10/21/24 16:16 MARKETING OPERATIONS SPECIALIST.SKOBY Spontaneous unlabored Yes 10/21/24 16:16 MARKETING OPERATIONS SPECIALIST.SKOBY respirations Mental status Awake,Calm 10/21/24 16:16 MARKETING OPERATIONS SPECIALIST.SKOBY nausea No 10/21/24 16:16 MARKETING OPERATIONS SPECIALIST.SKOBY Vomiting No 10/21/24 16:16 MARKETING OPERATIONS SPECIALIST.SKOBY Anesthesia Postop Eval I: Fluid Summary Crystalloid volume administer 1,400 10/21/24 16:16 MARKETING OPERATIONS SPECIALIST.SKOBY (ml) Colloids volume administered ( ml) Blood Product volume administered (ml) Total IV fluid infused 1,400 10/21/24 16:16 MARKETING OPERATIONS SPECIALIST.SKOBY Anesthesia Postop Eval I: Summary Notes Anesthesia Complication No 10/21/24 16:16 MARKETING OPERATIONS SPECIALIST.SKOBY Anesthesia Complication Comment: Post-operative progress note Anesthesia: Postop Eval II Evaluation Mental status: Awake and Calm Pain Level: 1 nausea: No Vomiting: No Complications Anesthesia Complication: No 10/21/24 1752 Date Dorian Daily MD Cosigner Signature: Date CC: Signed Normal [facility] Operative Reporton 5 Operative Report [facility] Medical Records Department [address] [place] [address] Operative Report 10/21/24 1632 MR#: [id number] Acct: [id number] Name: LUCY CROWLEY V Rep #: [id number] : 2000 From: Aquilino Collins MD PCP: Dr. Heather N Flori, DO Status:ADM IN Location: MS3 [id number] Problems Associated Problem List Diagnoses (1) Acute cholecystitis: Procedures Digestive 40xxx-49xxx: [address] Laparoscopic cholecystectomy (Laparoscopic subtotal cholecystectomy without cholangiograms) Operative Report (Standard) Operative Information Date of Procedure: 10/21/24 Pre-Operative Diagnosis: Acute on chronic cholecystitis Post-Operative Diagnosis: Same Surgery/Procedure Performed: Laparoscopic subtotal cholecystectomy back end engineer: Yes Clinic Cma: Dillan Means Tasks completed by first coat sander: Closing, Trocar and Retracting Additional economic research assistant?: No Type of Anesthesia: General and Local RN Documented Start/Stop Times: Operation Date: 10/21/24 13:30 Case Time Into Pre-Op 10/21/24 12:32 Out of Pre-Op 10/21/24 13:53 Anesthesia Start 10/21/24 14:00 Into Room 10/21/24 14:00 Procedure Start 10/21/24 14:22 Procedure End 10/21/24 16:05 Anesthesia End 10/21/24 16:10 Out of Room 10/21/24 16:10 Into Recovery 10/21/24 16:14 Procedure Start Time: 14:22 Procedure Stop Time: 16:05 Select all DRAINS/GRAFTS/IMPLANTS that apply: Drains Drain details: 10 Yi fully fluted flat AYSE drain x 1 and Tissue Tissue details: Portion of gallbladder with gallbladder contents Special Medications: Receiving Zosyn IV scheduled Estimated Blood Loss: 40 mL Specimen collected: Yes Description of specimen(s) removed: Portion of gallbladder and contents Description of surgery: The patient is a 24-year-old female who recently delivered her third child about a month ago. Her delivery was induced as she had developed choledocholithiasis and had elevated LFTs. After she delivered, she underwent an ERCP by Dr. Chacon. The common bile duct stones were removed and stents were placed. She was advised to have her cholecystectomy performed during that hospitalization however she stated that she would prefer to have this performed closer to home. Patient was initially doing very well up until about 5 days ago when she began having abdominal pain and low- grade fevers. She presented to [facility] last evening. She was seen and evaluated by the ER staff. All of her blood work was pretty unremarkable however she had 102 temperatures at home and her gallbladder ultrasound revealed gallbladder wall thickening. She was subsidy admitted with plans for cholecystectomy today. We discussed the details of the planned procedure as well as risks benefits and alternatives. She wished to proceed. She was brought to the operating today following informed consent. Preoperative antibiotics were being given. She was placed supine on the operative table with arms outstretched and arm boards. A general endotracheal anesthesia was induced. The abdomen was prepped and draped in the usual manner. She had a previous midline incision and so the initial trocar to be placed was a 5 mm trocar placed optically in the right upper quadrant. This was placed without incident. Once in place the abdomen was then fully insufflated with CO2 gas. A 5 mm 0 degree scope was inserted. There were no signs of bowel or vascular injury. She actually had no adhesions along the midline. I placed another 5 mm trocar just below the umbilicus. This was placed without incident. The 5 mm scope was then relocated to this location. An additional right upper quadrant trocar was placed under direct visualization along with a 10 mm trocar placed easily in the epigastric area. Once in place the patient was positioned such that there was head up positioning as well as some turn to the left to improve visualization. The right upper quadrant was visualized. The gallbladder was completely encased in dense chronically adherent omentum. I was then able to begin to peel away some of this densely adherent omentum off the undersurface of the gallbladder. More of the gallbladder was able to be visualized. An aspirating needle was then used to aspirate quite a bit of bile from the gallbladder to help facilitate grasping of the gallbladder. This was reflected in somewhat of a cephalad direction. I was then able to dissect the adhesed omentum off of the gallbladder using blunt dissection with the suction size tester tip. There was densely adherent omentum to the lateral aspect of the gallbladder and the inferior liver edge. This was taken down using electrocautery and a J- hook. The anterior surface of the gallbladder was then further exposed was actually able to get down to close to the infundibulum however at this point the thick adherent rind did not easily separate from (more content not included)... Normal [facility] Partial Thromboplast Timeon 10-21-2024 aPTT Coag (Bld) [Time] 35.3 s Normal 24.1-36.2 [facility] Comment on above: Performed By: #### L 400.0001 #### [facility] [address] [place], [place], [address] ,Urineon 10-21-2024 Beta HCG ( test) Ql (U) Negative Normal [facility] Comment on above: Result Comment: Very dilute urine specimens, as indicated by a low specific gravity, may not contain district sales representative levels of hCG. If is still suspected, a first morning urine specimen should be collected 48 hours later and tested. Performed By: #### L 100.0100, L500.4050 #### [facility] [address] [place], [address] Prothrombin Time w/INRon INR Coag (PPP) [Relative time] 1.0 {INR} Normal [facility] Comment on above: Performed By: #### L 400.0001 #### [facility] [address] [place], [address] PT Coag (PPP) [Time] 13.4 s Normal 11.7-14.9 [facility] Comment on above: Performed By: #### L 400.0001 #### [facility] [address] [place], [address] Prothrombin timeOrdered By: Dorian Daily on 10-21-2024 PT Coag (PPP) [Time] 13.4 s 11.7-14.9 [facility] Surgery Specimen Level IIIon 10-21-2024 Surgery Specimen Level III Patient Age/Sex Location Account Attending Physician LUCY CROWLEY V 24/F MS3 [id number] Dr. Aquilino Collins MD Specimen: [id number] Received: 10/21/24 Status: GRACE Gill Num: [id number] Spec Type: LUZ MARINA Grimaldo Dr: Dr. Aquilino Collins MD HEADER OPERATION: Laparoscopic, partial cholecystectomy PRE-OP DIAGNOSIS: Acute cholecystitis, history of biliary stent insertion, abdominal pain, gallstone TISSUE SUBMITTED: A- Partial gallbladder MICROSCOPIC DIAGNOSIS A. Gallbladder, acute cholecystitis, partial cholecystectomy: * Acute on chronic cholecystitis with cholelithiasis. MICROSCOPIC DESCRIPTION Slides are reviewed. GROSS DESCRIPTION A. Received in formalin in a container labeled with the patient's name, date of , and partial gallbladder is a previously disrupted cholecystectomy specimen received in 2 shaggy portions measuring 2.4 x 1.5 x 0.9 cm and 5.4 x 3.0 x 1.7 cm. No cystic duct margin is grossly recognized. No orientation is able to be determined. The largest fragment exhibits pink-ruggiero, focally roughened serosa. The opposing surface displays red-brown, roughened possible mucosa. No typical velvety mucosa is discovered. The average wall thickness is 1.1 cm with scattered hemorrhage. No distinct mass lesion is grossly recognized. The smaller fragment is sectioned to reveal 0.6 cm thick perez with scattered hemorrhage. Free-floating in the container are multiple siegel-red and friable stone fragments measuring 4.0 x 3.3 x 1.0 cm in aggregate. Store Receiver sections are submitted in A1-2. [facility] 10-22-2024 [facility]:[id number] Patient Age/Sex Location Account Attending Physician LUCY CROWLEY V / MS3 [id number] Dr. Aquilino Collins MD Signed (signature on file) Dr. Riddhi De La O MD 10/27/24 1549 Normal [facility] Comment on above: Performed By: #### L 500.4050 #### [facility] [address] [place], [address] Urine testOrdered By: Dorian Daily on 10-21-2024 HCG ( test) Ql (U) Negative [facility] Comment on above: Very dilute urine sp ecimens, as indicated by a low specificgravity, may not contain district sales representative levels of hCG. If is still suspected, a first morning urinespecimen should be collected 48 hours later and tested. Absolute lymphocyte countOrd ered By: Dillan Wu on 10-20-2024 Lymphocytes Auto (Unsp spec) [#/Vol] 1.83 10*3/uL 0.83-4.51 [facility] Absolute neutrophil countOrd ered By: Dillan Wu on 10-20-2024 Neutrophils (Bld) [#/Vol] 8.0 10*3/uL High 2.0-7.7 [facility] Anion gap in Serum or Plasma Ordered By: Dillan Wu on 10-20-2024 Anion gap [Moles/Vol] 15 mmol/L 5-15 [facility] Automated lymphocyte count a s percentage of total leukocytesOrdered By: Dillan Wu on 10-20-2024 Lymphocytes/100 WBC Auto (Unsp spec) 17.3 % Low 19-41 [facility] BUN/creatinine ratioOrdered By: Dillan Wu on 10-20-2024 Urea nitrogen/Creatinine [Mass ratio] 11.6 mg/mg 10-20 [facility] Basophil percentageOrdered B y: Dillan Wu on 10-20-2024 Basophils/100 WBC (Bld) 0.5 % 0-1 [facility] Bilirubin Test strip Ql (U)O rdered By: Dillan Wu on 10-20-2024 Bilirubin Ql (U) Negative Negative [facility] Bilirubin, totalOrdered By: Dillan Wu on 10-20-2024 Bilirubin [Mass/Vol] 0.51 mg/dL 0.00-1.30 [facility] CBC W/Diff, Automatedon 05-06 12-2024 Absolute Lymph 1.83 X10 3/uL Normal 0.83-4.51 [facility] Comment on above: Performed By: #### L 500.4050, L100.0100, L501.2450 #### [facility] [address] [place], [address] Absolute Neut 8.0 X10 3/uL High 2.0-7.7 [facility] Comment on above: Performed By: #### L 500.4050, L100.0100, L501.2450 #### [facility] [address] [place], [address] Basophils/100 WBC (Bld) 0.5 % Normal 0-1 [facility] Comment on above: Performed By: #### L 500.4050, L100.0100, L501.2450 #### [facility] [address] [place], [address] Eosinophils/100 WBC (Bld) 1.2 % Normal 0-5 [facility] Comment on above: Performed By: #### L 500.4050, L100.0100, L501.2450 #### [facility] [address] [place], [address] Erythrocyte distribution width (RBC) [Ratio] 11.5 % Low 11.6-14.6 [facility] Comment on above: Performed By: #### L 500.4050, L100.0100, L501.2450 #### [facility] [address] [place], [address] Hematocrit (Bld) [Volume fraction] 35.2 % Low 37-47 [facility] Comment on above: Performed By: #### L 500.4050, L100.0100, L501.2450 #### [facility] [address] [place], [address] Hemoglobin (Bld) [Mass/Vol] 11.9 g/dL Low 12.0-15.0 [facility] Comment on above: Performed By: #### L 500.4050, L100.0100, L501.2450 #### [facility] [address] [place], [address] IG% 0.600 Normal 0.0-0.9 [facility] Comment on above: Result Comment: IG% - Immature Granulocytes (promyelocytes, myelocytes and metamyelocytes) > 1% indicates that a LEFT SHIFT is Present. Performed By: #### L 500.4050, L100.0100, L501.2450 #### [facility] [address] [place], [address] Lymphocytes/100 WBC (Bld) 17.3 % Low 19-41 [facility] Comment on above: Performed By: #### L 500.4050, L100.0100, L501.2450 #### [facility] [address] [place], [address] MCH (RBC) [Entitic mass] 30.5 pg Normal 27.0-32.0 [facility] Comment on above: Performed By: #### L 500.4050, L100.0100, L501.2450 #### [facility] [address] [place], [address] MCHC (RBC) [Mass/Vol] 33.8 g/dL Normal 32-36 [facility] Comment on above: Performed By: #### L 500.4050, L100.0100, L501.2450 #### [facility] [address] [place], [address] MCV (RBC) [Entitic vol] 90.3 fL Normal 81-99 [facility] Comment on above: Performed By: #### L 500.4050, L100.0100, L501.2450 #### [facility] [address] [place] [place], [address] Monocytes/100 WBC (Bld) 4.9 % Normal 0-10 [facility] Comment on above: Performed By: #### L 500.4050, L100.0100, L501.2450 #### [facility] [address] [place], [address] Neutrophils/100 WBC (Bld) 75.5 % High 47-70 [facility] Comment on above: Performed By: #### L 500.4050, L100.0100, L501.2450 #### [facility] [address] [place], [address] Nucleated RBC (Bld) [#/Vol] 0 10*3/uL Normal 0-5 [facility] Comment on above: Performed By: #### L 500.4050, L100.0100, L501.2450 #### [facility] [address] [place], [address] Platelet mean volume (Bld) [Entitic vol] 10.1 fL Normal 6.2-12.0 [facility] Comment on above: Performed By: #### L 500.4050, L100.0100, L501.2450 #### [facility] [address] [place], [address] Platelets (Bld) [#/Vol] 252 10*3/uL Normal 150-450 [facility] Comment on above: Performed By: #### L 500.4050, L100.0100, L501.2450 #### [facility] [address] [place], [address] RBC (Bld) [#/Vol] 3.90 10*6/uL Low 4.2-5.4 [facility] Comment on above: Performed By: #### L 500.4050, L100.0100, L501.2450 #### [facility] [address] [place], [address] RDW SD 38.0 fl Normal 35.1-43.9 [facility] Comment on above: Performed By: #### L 500.4050, L100.0100, L501.2450 #### [facility] [address] [place], [address] WBC (Bld) [#/Vol] 10.6 10*3/uL Normal 4.4-11.0 [facility] Comment on above: Performed By: #### L 500.4050, L100.0100, L501.2450 #### [facility] [address] [place], [address] Carbon dioxide, total [Moles /volume] in Central venous bloodOrdered By: Dillan Wu on 10-20-2024 CO2 [Moles/Vol] 20.9 mmol/L Low 21.0-32.0 [facility] Chloride assayOrdered By: Noe Wu on 10-20-2024 Chloride [Moles/Vol] 101 mmol/L 98-108 [facility] Comprehensive Metabolic Prof ilon 10-20-2024 Albumin [Mass/Vol] 3.7 g/dL Normal 3.5-5.0 [facility] Comment on above: Performed By: #### L 500.4050, L100.0100, L501.2450 #### [facility] [address] [place], [address] Albumin/Globulin [Mass ratio] 1.1 {ratio} Normal 0.9-2.4 [facility] Comment on above: Performed By: #### L 500.4050, L100.0100, L501.2450 #### [facility] [address] [place], [address] ALK PHOS 102 U/L Normal 35-104 [facility] Comment on above: Performed By: #### L 500.4050, L100.0100, L501.2450 #### [facility] [address] [place], [address] ALT [Catalytic activity/Vol] 11 U/L Normal <=34 [facility] Comment on above: Performed By: #### L 500.4050, L100.0100, L501.2450 #### [facility] [address] [place], [address] AST [Catalytic activity/Vol] 15 U/L Normal <=31 [facility] Comment on above: Performed By: #### L 500.4050, L100.0100, L501.2450 #### [facility] [address] [place], [address] Bilirubin [Mass/Vol] 0.51 mg/dL Normal 0.00-1.30 [facility] Comment on above: Performed By: #### L 500.4050, L100.0100, L501.2450 #### [facility] [address] [place], [address] BUN/CRE 11.6 RATIO Normal 10-20 [facility] Comment on above: Performed By: #### L 500.4050, L100.0100, L501.2450 #### [facility] [address] [place], [address] Calcium [Mass/Vol] 9.1 mg/dL Normal 7.6-11.0 [facility] Comment on above: Performed By: #### L 500.4050, L100.0100, L501.2450 #### [facility] [address] [place], [address] Chloride [Moles/Vol] 101 mmol/L Normal 98-108 [facility] Comment on above: Performed By: #### L 500.4050, L100.0100, L501.2450 #### [facility] [address] [place], [address] CO2 [Moles/Vol] 20.9 mmol/L Low 21.0-32.0 [facility] Comment on above: Performed By: #### L 500.4050, L100.0100, L501.2450 #### [facility] [address] [place], [address] Creatinine [Mass/Vol] 0.82 mg/dL Normal 0.70-1.20 [facility] Comment on above: Performed By: #### L 500.4050, L100.0100, L501.2450 #### [facility] [address] [place], [address] ECRCL 114.12 ml/min Normal 50-250 [facility] Comment on above: Performed By: #### L 500.4050, L100.0100, L501.2450 #### [facility] [address] [place], [address] GAP 15 Normal 5-15 [facility] Comment on above: Performed By: #### L 500.4050, L100.0100, L501.2450 #### [facility] [address] [place], [address] GFR/1.73 sq M.predicted among non-blacks MDRD (S/P/Bld) [Vol rate/Area] 102 mL/min/{1.73_m2} Normal >60 [facility] Comment on above: Result Comment: mL/m in/1.73m2 CKD-EPI Creatinine Equation (2020) Performed By: #### L 500.4050, L100.0100, L501.2450 #### [facility] [address] [place], [address] Globulin (S) [Mass/Vol] 3.5 g/dL Normal 2.2-4.2 [facility] Comment on above: Performed By: #### L 500.4050, L100.0100, L501.2450 #### [facility] [address] [place], [address] Glucose [Mass/Vol] 74 mg/dL Normal 70-99 [facility] Comment on above: Performed By: #### L 500.4050, L100.0100, L501.2450 #### [facility] [address] [place], [address] Potassium [Moles/Vol] 3.8 mmol/L Normal 3.3-5.1 [facility] Comment on above: Performed By: #### L 500.4050, L100.0100, L501.2450 #### [facility] [address] [place], [address] Sodium [Moles/Vol] 137 mmol/L Normal 133-145 [facility] Comment on above: Performed By: #### L 500.4050, L100.0100, L501.2450 #### [facility] [address] [place], [address] T PROT 7.2 g/dL Normal 5.9-8.4 [facility] Comment on above: Performed By: #### L 500.4050, L100.0100, L501.2450 #### [facility] [address] [place], [address] Urea nitrogen [Mass/Vol] 9 mg/dL Normal 4-19 [facility] Comment on above: Performed By: #### L 500.4050, L100.0100, L501.2450 #### [facility] [address] [place], [address] Emergency Department Summary on 10-20-2024 Emergency Department Summary [facility] Medical Records Department [address] [place] [address] Emergency Department Summary 10/20/24 MR#: [id number] Acct: [id number] Name: LUCY CROWLEY V Rep #: [id number] : 2000 24 From: Dillan Wu MD PCP: Dr. Heather Ruby, DO Status:REG ER Location: ED HPI History of Present Illness Chief Complaint: Fever Informant: patient and spouse/S.O. Onset/Context/Timing Onset: Days Context: Gradual Onset Timing: Intermittent Current Severity: Gone Maximum Severity: Mild Narrative Narrative: 24-year-old female history of gallstones. Recent GI consult for gallstone resection and biliary stent. Prior appendectomy. Patient delivered vaginal livery about 4 weeks ago at 30 weeks. She had gallstones with biliary colic was transferred here from [facility]. Dr. Chacon did ERCP remove several gallstones. Placed a stent. Patient has been doing well. Last he started having intermittent upper abdominal pain. Today his pain-free but had a fever at home as high as 1-2.5. Denies nausea or vomiting. No diarrhea. No dysuria. No heavy vaginal bleeding or pelvic pain. No vaginal discharge. Prior similar symptoms: Yes Recent Illness/Hospitalization: Yes PFSH PFSH Medical History Biliary colic Allergy/AdvReac Type Severity Reaction Status Date / Time No Known Allergies Allergy Verified 10/20/24 17:26 Family History Mother No problems noted. Father No problems noted. Surgical History Hx of appendectomy Social History household members: spouse, children and other details: 2 older children at home, 1 miscarriage, 1 09/24/24. Smoking Status: Never smoker alcohol intake: never substance use type: does not use ROS ROS ED ROS Narrative Abdominal pain. Currently pain-free. Fever. Review of Systems ROS Unobtainable: Denies due to encephalopathy Constitutional Constitutional ED: Reports fever(s); Denies chills Eyes Eyes: Denies blurry vision ENT ENT ED: Denies ear pain Cardiovascular Cardiovascular: Denies chest pain Respiratory/Chest Respiratory/Chest: Denies cough or dyspnea Gastrointestinal Gastrointestinal: Reports abdominal pain; Denies constipation, melena, nausea or vomiting Genitourinary Genitourinary ED: Denies dysuria or hematuria Musculoskeletal Musculoskeletal: Denies arthralgias or back pain Integumentary Denies abscess Neurologic Neurologic: Denies headache(s) Psychiatric Psychiatric: Denies anxiety Endocrine Endocrinology: Denies cold intolerance Hematologic/Lymphatic Hematologic/Lymphatic: Reports none Allergic/Immunologic Allergic/Immunologic ED: Denies mouth swelling, tongue swelling or urticaria EXAM Physical Exam Narrative Exam Narrative: 24-year-old female sitting upright in bed. Vital signs are stable she has a low-grade temperature 100.2. She does not look septic or toxic in any distress. Pulse ox 100% on room air no signs hypoxia. at bedside. H EENT exam pupils round react light. Moist mucous members. Neck nontender no JVD. No lymphadenopathy. Lungs clear to auscultation bilaterally. Heart regular rhythm rate about 105 no murmur. Chest wall ribs nontender. Abdomen soft, nontender, nondistended normal bowel sounds peritoneal signs. There is no localized tenderness. There is no hernia or mass. There is no right upper quadrant tenderness or Huntley sign. Right lower quadrant is nontender. No distention. No rash. No obstruction. Very benign abdominal exam. Completely nontender. Moving all 4 extremities. Nontender no edema. Back nontender. Skin no cellulitis. Neurologically she is awake and alert. Const Vital Signs: 10/20/24 17:26 10/20/24 17:30 10/20/24 17:54 Temperature 100.2 F H 100.2 F H Temperature Source Oral Oral Pulse Rate 109 H 109 H Respiratory Rate 18 18 Respiratory Effort Normal Respiratory Pattern Normal Blood Pressure 120/76 120/76 Blood Pressure Mean 90 90 Pulse Ox 100 100 Oxygen Delivery Method Room Air Room Air 10/20/24 19:17 10/20/24 19:20 10/20/24 20:08 Temperature 99.2 F H 99.2 F H 99 F Temperature Source Oral Oral Oral Pulse Rate 98 98 112 H Respiratory Rate 20 H 20 H 18 Respiratory Effort Respiratory Pattern Blood Pressure 108/63 108/63 92/61 Blood Pressure Mean 78 78 71 Pulse Ox 99 99 95 Oxygen Delivery Method Room Air Room Air Room Air Positive well nourished and well developed; Negative for cachectic, contractures or unkempt General Appearance ED: well developed and NAD; Negative for unkempt, cachectic, contractures, cyanotic, diaphoretic or (more content not included)... Normal [facility] Eosinophil percentageOrdered By: Dillan Wu on 10-20-2024 Eosinophils/100 WBC (Bld) 1.2 % 0-5 [facility] Erythrocyte distribution wid th ratioOrdered By: Dillan Wu on 10-20-2024 Erythrocyte distribution width (RBC) [Ratio] 11.5 % Low 11.6-14.6 [facility] Erythrocyte distribution wid th standard deviationOrdered By: Dillan Wu on 10-20-2024 Erythrocyte distribution width (RBC) [Ratio] 38.0 fl 35.1-43.9 [facility] Gallbladderon 10-20-2024 Gallbladder [facility] Services [address] [place] [address] Gallbladder MR#: [id number] Acct: [id number] Name: LUCY CROWLEY V Rep #: [id number] : 2000 F 24 From: Ignacio marcos MD PCP: Dr. Heather Ruby DO Status: REG ER Study: Gallbladder Date of Exam: 10/20/24 Exam# [id number] Ordering Dr: Dillan Wu MD PROCEDURE: GALLBLADDER 10/20/2024 REASON FOR EXAM: PAIN COMPARISON: None FINDINGS: Liver: Mild hepatomegaly, craniocaudal length 17.5 cm. No focal lesion. Gallbladder: Mildly distended. Positive sonographic Huntley's sign. Cholelithiasis within the neck and fundus. Wall thickening, measuring 7 mm. Small amount of layering sludge. Small amount of pericholecystic fluid. Common bile duct: Slightly dilated 5 mm. Pancreas: Visualized portions are sonographically unremarkable. Other: Right kidney: 11.9 cm. No calculi or hydronephrosis. US/Gallbladder IMPRESSION: Moderately distended gallbladder, with cholelithiasis, small pericholecystic fluid, wall thickening and positive sonographic Huntley's sign, compatible with acute cholecystitis. [facility]: Dr. Dillan Wu MD; Dr. Heather Ruby DO Lens Finisher: Signed Normal [facility] Glomerular filtration rate ( GFR) estimation/1.73 sq m using serum, plasma, or whole bOrdered By: Dillan Wu on 10-20-2024 GFR/1.73 sq M.predicted among non-blacks MDRD (S/P/Bld) [Vol rate/Area] 102 mL/min/{1.73_m2} >60 [facility] Comment on above: mL/min/1.73m2 CKD-EP I Creatinine Equation (2020) Hematocrit Auto (Bld) [Volum e fraction]Ordered By: Dillan Wu on 10-20-2024 Hematocrit (Bld) [Volume fraction] 35.2 % Low 37-47 [facility] Hemoglobin measurementOrdere d By: Dillan Wu on 10-20-2024 Hemoglobin (Bld) [Mass/Vol] 11.9 g/dL Low 12.0-15.0 [facility] Immature granulocytes/100 WB C Auto (Bld)Ordered By: Dillan Wu on 10-20-2024 Immature granulocytes/100 WBC (Bld) 0.600 % 0.0-0.9 [facility] Comment on above: IG% - Immature Granu locytes (promyelocytes, myelocytes and metamyelocytes) > 1% indicates that a LEFT SHIFT is Present. Ketones Test strip Ql (U)Ord ered By: Dillan Wu on 10-20-2024 Ketones Ql (U) 150 mg/dl Abnormal Negative [facility] Comment on above: CRITICAL VALUE BUTLER D TO BLANCO CAMPOS10/20/24 1830 Rosy Nicole.RESULTS READ BACK BY SAME. Laboratory - Chemistry and C hemistry - challengeOrdered By: Dillan Wu on 10-20-2024 AST [Catalytic activity/Vol] 15 U/L <32 [facility] Lipaseon 10-20-2024 Lipase [Catalytic activity/Vol] 13 U/L Normal 13-75 [facility] Comment on above: Result Comment: Nicholas sood note: LIPASE revised reference range effective 22. New Lipase methodology. Expected to produce lower values than the previous assay method. NEW Reference Range: 13 - 75 U/L Performed By: #### L 500.4050, L100.0100, L501.2450 #### [facility] [address] [place], [address] Lipase measurementOrdered By : Dillan Wu on 10-20-2024 Lipase [Catalytic activity/Vol] 13 U/L 13-75 [facility] Comment on above: Please note:LIPASE r evised reference range effective 22. New Lipase methodology. Expected to produce lower values than the previous assay method. NEW Reference Range: 13 - 75 U/L MCV (mean corpuscular volume ) determinationOrdered By: Dillan Wu on 10-20-2024 MCV (RBC) [Entitic vol] 90.3 fL 81-99 [facility] Mean corpuscular hemoglobin (MCH) determinationOrdered By: Dillan Wu on 10-20-2024 MCH (RBC) [Entitic mass] 30.5 pg 27.0-32.0 [facility] Mean corpuscular hemoglobin concentration (MCHC) determinationOrdered By: Dillan Wu on 10-20-2024 MCHC (RBC) [Mass/Vol] 33.8 g/dL 32-36 [facility] Mean platelet volume determi nationOrdered By: Dillan Wu on 10-20-2024 Platelet mean volume (Bld) [Entitic vol] 10.1 fL 6.2-12.0 [facility] Microscopic analysis of urin e for red blood cells (RBC)Ordered By: Dillan Wu on 10-20-2024 Microscopic analysis of urine for red blood cells (RBC) 5-10 SEEN /hpf 0-5 [facility] Monocyte percentageOrdered B y: Dillan Wu on 10-20-2024 Monocytes/100 WBC (Bld) 4.9 % 0-10 [facility] Mucus LM Ql (Urine sed)Order ed By: Dillan Wu on 10-20-2024 Mucus Ql (Urine sed) 0 SEEN /hpf [facility] Neutrophil percentageOrdered By: Dillan Wu on 10-20-2024 Neutrophils/100 WBC (Bld) 75.5 % High 47-70 [facility] Nitrite Test strip Ql (U)Ord ered By: Dillan Wu on 10-20-2024 Nitrite Ql (U) Negative Negative [facility] Nucleated red blood cell per centageOrdered By: Dillan Wu on 05-13-2025 Nucleated RBC/100 WBC (Bld) [Ratio] 0 % 0-5 [facility] Platelet countOrdered By: Noe Wu on 10-20-2024 Platelets (Bld) [#/Vol] 252 10*3/uL 150-450 [facility] Potassium measurement (mass/ volume)Ordered By: Dillan Wu on 10-20-2024 Potassium (Unsp spec) [Mass/Vol] 3.8 mmol/L 3.3-5.1 [facility] Protein Test strip Ql (U)Ord ered By: Dillan Wu on 10-20-2024 Protein Ql (U) 30 mg/dl High Negative [facility] RBC Auto (Bld) [#/Vol]Ordere d By: Dillan Wu on 10-20-2024 RBC (Bld) [#/Vol] 3.90 10*6/uL Low 4.2-5.4 [facility] Serum creatinine measurement (mass/volume)Ordered By: Dillan Wu on 10-20-2024 Creatinine [Mass/Vol] 0.82 mg/dL 0.70-1.20 [facility] Serum globulin measurementOr dered By: Dillan Wu on 10-20-2024 Globulin (S) [Mass/Vol] 3.5 g/dL 2.2-4.2 [facility] Serum glucose measurement (m ass/volume)Ordered By: Dillan Wu on 10-20-2024 Glucose [Mass/Vol] 74 mg/dL 70-99 [facility] Serum or plasma alanine allan otransferase (ALT) measurementOrdered By: Dillan Wu on 10-20-2024 ALT [Catalytic activity/Vol] 11 U/L <35 [facility] Serum or plasma albumin jeimy urement (mass/volume)Ordered By: Dillan Wu on 10-20-2024 Albumin [Mass/Vol] 3.7 g/dL 3.5-5.0 [facility] Serum or plasma albumin/glob ulin mass ratioOrdered By: Dillan Wu on 10-20-2024 Albumin/Globulin [Mass ratio] 1.1 {ratio} 0.9-2.4 [facility] Serum or plasma alkaline chaka sphatase measurementOrdered By: Dillan Wu on 10-20-2024 ALP [Catalytic activity/Vol] 102 U/L 35-104 [facility] Serum or plasma calcium jeimy urement (mass/volume)Ordered By: Dillan Wu on 10-20-2024 Calcium [Mass/Vol] 9.1 mg/dL 7.6-11.0 [facility] Serum or plasma urea nitroge n measurement (mass/volume)Ordered By: Dillan Wu on 10-20-2024 Urea nitrogen [Mass/Vol] 9 mg/dL 4-19 [facility] Sodium levelOrdered By: Dillan Wu on 10-20-2024 Sodium [Moles/Vol] 137 mmol/L 133-145 [facility] Squamous epithelial cells de tection in urine sediment by light microscopyOrdered By: Dillan Wu on 10-20-2024 Epithelial cells.squamous LM Ql (Urine sed) 0-5 SEEN /hpf 5-10 [facility] Total proteinOrdered By: Shantanu Wu on 10-20-2024 Protein [Mass/Vol] 7.2 g/dL 5.9-8.4 [facility] Urinalysis, Completeon 10-20 WBC 5-10 SEEN Normal 0-5 [facility] Comment on above: Order Comment: CLEAN CATCH Performed By: #### L 400.0001 #### [facility] [address] [place], [place], [address] BACTERIA 1+ /hpf Normal None Seen [facility] Comment on above: Order Comment: CLEAN CATCH Performed By: #### L 400.0001 #### [facility] [address] [place], [address] EPI,SQUAMOUS 0-5 SEEN Normal 5-10 [facility] Comment on above: Order Comment: CLEAN CATCH Performed By: #### L 400.0001 #### [facility] [address] [place], [address] RBC 5-10 SEEN Normal 0-5 [facility] Comment on above: Order Comment: CLEAN CATCH Performed By: #### L 400.0001 #### [facility] [address] [place], [address] Mucus Ql (Urine sed) [address] [facility] Comment on above: Order Comment: CLEAN CATCH Performed By: #### L 400.0001 #### [facility] [address] [place], [address] Urine clarityOrdered By: Shantanu Wu on 10-20-2024 Clarity (U) Sl. Cloudy Clear [facility] Urine color determinationOrd ered By: Dillan Wu on 10-20-2024 Color (U) Yellow Yellow [facility] Urine cultureOrdered By: Shantanu Wu on 10-20-2024 Bacteria identified Cx Nom (U) Streptococcus gallolyticus pas Abnormal [facility] Bacteria identified Cx Nom (U) Positive Abnormal [facility] Urine glucose detectionOrder ed By: Dillan Wu on 10-20-2024 Glucose Ql (U) Normal mg/dl Normal [facility] Urine leukocyte esterase det ection by dipstickOrdered By: Dillan Wu on 10-20-2024 Leukocyte esterase Test strip Ql (U) 25 /ul High Negative [facility] Urine pHOrdered By: Dillan burnham on 10-20-2024 pH (U) 6.0 [pH] 5.0 - 8.0 [facility] Urine sediment bacteria coun t by microscopy (number/high power field)Ordered By: Dillan Wu on 10-20-2024 Bacteria LM.HPF (Urine sed) [#/Area] 1 /[HPF] None Seen [facility] Urine specific gravity measu rementOrdered By: Dillan Wu on 10-20-2024 Specific gravity (U) [Rel density] 1.020 1.002-1.030 [facility] Urine urobilinogen measureme ntOrdered By: Dillan Wu on 10-20-2024 Urobilinogen Ql (U) 1 mg/dl High Normal [facility] White blood cell (WBC) count Ordered By: Dillan Wu on 10-20-2024 WBC (Bld) [#/Vol] 10.6 10*3/uL 4.4-11.0 [facility] White blood cell countOrdere d By: Dillan Wu on 10-20-2024 White blood cell count 5-10 SEEN /hpf 0-5 [facility] C-REACTIVE PROTEINon 025 CRP 3.45 mg/dl High 0.00 - 0.90 [facility] Comment on above: Performed By: #### 2 [id number] #### [facility],[address] [place] [address] CBC + DIFFon 10-16-2024 Baso # 0.02 x10EE3/UL Normal 0.00 - 0.10 [facility] Comment on above: Performed By: #### 2 [id number] #### [facility],[address] [place] [address] Basophils/100 WBC (Bld) 0.2 % Normal 0.0 - 2.0 [facility] Comment on above: Performed By: #### 2 [id number] #### [facility],[address] [place] [address] CBC + DIFF Normal [facility] Comment on above: Result Comment: CBC- COMPLETE BLOOD COUNT Performed By: #### 2 [id number] #### [facility],[address] [place] [address] EO # 0.20 x10EE3/UL Normal 0.00 - 0.50 [facility] Comment on above: Performed By: #### 2 [id number] #### [facility],[address] [place] [address] Eosinophils/100 WBC (Bld) 2.4 % Normal 0.0 - 7.0 [facility] Comment on above: Performed By: #### 2 55852 #### [facility],[address] [place] [address] Erythrocyte distribution width (RBC) [Ratio] 12.8 % Normal 12.0 - 15.6 [facility] Comment on above: Performed By: #### 2 49578 #### [facility],[address] [place] [address] Hematocrit (Bld) [Volume fraction] 36.5 % Normal 34.0 - 46.0 [facility] Comment on above: Performed By: #### 2 [id number] #### [facility],[address] [place] [address] Hemoglobin (Bld) [Mass/Vol] 12.8 g/dL Normal 12.0 - 16.0 [facility] Comment on above: Performed By: #### 2 87307 #### [facility],[address] [place] [address] Lymph # 1.58 x10EE3/UL Normal 0.80 - 2.80 [facility] Comment on above: Performed By: #### 2 85391 #### [facility],[address] [place] [address] Lymphocytes/100 WBC (Bld) 18.8 % Low 20.0 - 45.0 [facility] Comment on above: Performed By: #### 2 59663 #### [facility],[address] [place] [address] MANUAL DIFF N/A Normal [facility] Comment on above: Performed By: #### 2 84459 #### [facility],[address] [place] [address] MCH (RBC) [Entitic mass] 32 pg Normal 27 - 33 [facility] Comment on above: Performed By: #### 2 [id number] #### [facility],[address] [place] [address] MCHC 35 X10 3 Normal 32 - 36 [facility] Comment on above: Performed By: #### 2 [id number] #### [facility],[address] [place] [address] MCV (RBC) [Entitic vol] 91 fL Normal 80 - 99 [facility] Comment on above: Performed By: #### 2 05298 #### [facility],[address] [place] [address] Mathews # 0.36 x10EE3/UL Normal 0.20 - 1.00 [facility] Comment on above: Performed By: #### 2 55777 #### [facility],[address] [place] [address] MONOS % 4.3 % Normal 0.0 - 10.0 [facility] Comment on above: Performed By: #### 2 [id number] #### [facility],[address] [place] [address] 82741 Morphology Cy (Bld) [Interp] N/A Normal [facility] Comment on above: Performed By: #### 2 31899 #### [facility],[address] [place] [address] 81647 Neut # 6.23 x10EE3/UL Normal 1.50 - 7.10 [facility] Comment on above: Performed By: #### 2 81743 #### [facility],[address] [place] [address] 56930 Neutrophils/100 WBC (Bld) 74.3 % Normal 46.0 - 76.0 [facility] Comment on above: Performed By: #### 2 56703 #### [facility],[address] [place] [address] 69779 PLATELET 234 x10EE3/UL Normal 150 - 450 [facility] Comment on above: Performed By: #### 2 64221 #### [facility],[address] [place] [address] 41554 Platelet mean volume (Bld) [Entitic vol] 8.5 fL Normal 6.6 - 10.5 [facility] Comment on above: Result Comment: AUTO MATED DIFFERENTIAL Performed By: #### 2 22301 #### [facility],[address] [place] [address] 03804 RBC 4.00 x 10EE6/UL Low 4.10 - 5.30 [facility] Comment on above: Performed By: #### 2 81763 #### [facility],[address] [place] [address] 97647 WBC 8.4 x 10EE3/UL Normal 4.5 - 10.8 [facility] Comment on above: Performed By: #### 2 00008 #### [facility],[address] [place] [address] 96635 CMP with eGFRon 10-16-2024 AGE 24 years Normal [facility] Comment on above: Performed By: #### 2 53854 #### [facility],[address] [place] [address] 86920 Albumin [Mass/Vol] 3.5 g/dL Normal 3.4 - 5.0 [facility] Comment on above: Performed By: #### 2 50903 #### [facility],[address] [place] [address] 80217 Albumin/Globulin [Mass ratio] 1.0 {ratio} Normal 0.9 - 1.6 [facility] Comment on above: Performed By: #### 2 47586 #### [facility],[address] [place] [address] 10730 ALK PHOS 89 U/L Normal 46 - 116 [facility] Comment on above: Performed By: #### 2 43979 #### [facility],[address] [place] [address] 98790 ALT [Catalytic activity/Vol] 23 U/L Normal 16 - 63 [facility] Comment on above: Performed By: #### 2 26461 #### [facility],[address] [place] [address] 89387 Anion gap [Moles/Vol] 13 mmol/L Normal 10 - 20 [facility] Comment on above: Performed By: #### 2 33345 #### [facility],[address] [place] [address] 50884 AST [Catalytic activity/Vol] 16 U/L Normal 13 - 39 [facility] Comment on above: Performed By: #### 2 91721 #### [facility],[address] [place] [address] 11307 B/C RATIO 14 ratio Normal 0 - 30 [facility] Comment on above: Performed By: #### 2 98079 #### [facility],[address] [place] [address] 07130 Bilirubin [Mass/Vol] 0.4 mg/dL Normal 0.2 - 1.0 [facility] Comment on above: Performed By: #### 2 84733 #### [facility],[address] [place] [address] 95972 Calcium [Mass/Vol] 9.0 mg/dL Normal 8.5 - 10.1 [facility] Comment on above: Performed By: #### 2 94359 #### [facility],[address] [place], [place] [id number] Chloride [Moles/Vol] 106 mmol/L Normal 98 - 107 [facility] Comment on above: Performed By: #### 2 28483 #### [facility],[address] [place], [place] [id number] CMP with eGFR Normal [facility] Comment on above: Result Comment: COMP REHENSIVE METABOLIC PANEL Performed By: #### 2 49685 #### [facility],[address] [place] [address] 56498 CO2 [Moles/Vol] 26.3 mmol/L Normal 21.0 - 32.0 [facility] Comment on above: Performed By: #### 2 23047 #### [facility],[address] [place] [address] 78468 Creatinine [Mass/Vol] 0.73 mg/dL Normal 0.55 - 1.02 [facility] Comment on above: Performed By: #### 2 06050 #### [facility],[address] [place] [address] 37434 GFR/1.73 sq M.predicted among non-blacks MDRD (S/P/Bld) [Vol rate/Area] mL/min/{1.73_m2} Normal 60 - 999 [facility] Comment on above: Performed By: #### 2 02283 #### [facility],[address] [place] [address] Result Comment: ACCO RDING TO THE NATIONAL KIDNEY DISEASE EDUCATION PROGRAM(NKDE), A NORMAL eGFR IS A VALUE GREATER THAN OR EQUAL TO 60 ML/MIN/1.73 SQ METERS. CHRONIC KIDNEY DISEASE: <60mL/MIN/1.73 SQ METERS KIDNEY FAILURE: <15mL/MIN/1.73 SQ METERS THIS TEST SHOULD ONLY BE USED FOR PATIENTS 18 YEARS OF AGE AND OLDER. Globulin (S) [Mass/Vol] 3.5 g/dL Normal 1.5 - 3.8 [facility] Comment on above: Performed By: #### 2 22925 #### [place] [address] Glucose [Mass/Vol] 103 mg/dL Normal 74 - 106 [facility] Comment on above: Performed By: #### 2 76657 #### [place] [address] Potassium [Moles/Vol] 3.4 mmol/L Low 3.5 - 5.1 [facility] Comment on above: Performed By: #### 2 69809 #### [place] [id number] Protein [Mass/Vol] 7.0 g/dL Normal 6.4 - 8.2 [facility] Comment on above: Performed By: #### 2 36968 #### [facility],[address] [place] [address] 36204 Sodium [Moles/Vol] 142 mmol/L Normal 136 - 145 [facility] Comment on above: Performed By: #### 2 81803 #### [place] [id number] Urea nitrogen [Mass/Vol] 10 mg/dL Normal 7 - 18 [facility] Comment on above: Performed By: #### 2 10972 #### [place] [id number] CT ABDOMEN/PELVIS Won 2024 CT ABDOMEN/PELVIS [place] [id number] Patient: LUCY CROWLEY V. Phone#: : 2000 Age: 24 Gender: F Pt. Type: ER Account: [id number] Location: 05 Ordering: ESTELLE QUINTANILLA Exam Date: 10/16/2024/0:49 Family Phys: IRINA ZAMORA Charge Code: 598408 Physician: Guthrie Order #: [id number] Dose#: 20.6 PROCEDURE: CT ABDOMEN/PELVIS WITH CONTRAST COMPARISON: None. INDICATIONS: Abdominal pain. TECHNIQUE: After obtaining the patient's consent, CT images were created with non-ionic intravenous contrast material. All CT scans at this facility use dose modulation, iterative reconstruction, and/or weight based dosing when appropriate to reduce radiation dose to as low as reasonably achievable. IV CONTRAST: Omnipaque 350,80ml TOTAL DOSE: 20.6 CTDIvol(mGy) FINDINGS: LIVER: Normal. No enlargement, atrophy, abnormal density, or significant focal lesion. BILIARY: There is mild thickening of the gallbladder wall. Intraluminal calculi are not identified. There is no evidence of biliary dilatation. Common bile duct and pancreatic duct stents are present. PANCREAS: Normal. No lesion, fluid collection, ductal dilatation, or atrophy. SPLEEN: Normal. No enlargement or focal lesion. KIDNEYS: Normal. No mass, obstruction, or calcification. ADRENALS: Normal. No mass or enlargement. AORTA/VASCULAR: Normal. No aneurysm or dissection. RETROPERITONEUM: Normal. No mass or adenopathy. BOWEL/MESENTERY: Suture is present adjacent to the cecum.. No visible mass, obstruction, or bowel wall thickening. ABDOMINAL WALL: Normal. No mass or hernia. URINARY BLADDER: Normal. No visible focal wall thickening, lesion, or calculus. PELVIC NODES: Normal. No adenopathy. PELVIC ORGANS: Normal. No visible mass. Pelvic organs appropriate for patient age. BONES: Normal. No bony lesion or fracture. LUNG BASES: Normal. No visible pulmonary or pleural disease. Continued Report - Page 2 of 2 Patient: LUCY CROWLEY V. Phone#: : 2000 Age: 24 Gender: F Pt. Type: ER Account: [id number] Location: 052 Ordering: ESTELLE QUINTANILLA Exam Date: 10/16/2024/0:49 Family Phys: IRINA ZAMORA Charge Code: 476677 Physician: Guthrie Order #: [id number] Dose#: 20.6 OTHER: Negative. CONCLUSION: 1. Gallbladder wall thickening consistent with cholecystitis. 2. Biliary and pancreatic stents are present. Dictated by: Lizbet Espinoza MD on 10/16/2024 at 8:51 Approved by: Lizbet Espinoza MD on 10/16/2024 at 8:54 Normal [facility] ED MED ADMINISTRATION DETAIL on 10-16-2024 ED MED ADMINISTRATION DETAIL [employer] Pound Attendant Medication Administration Record [address] [address] [id number] 10/15/2024 Patient: LUCY CROWLEY V Sex: Female : 2000 Age: 24y MEASUREMENTS: Wt: 89.4 kg, Ht/Wes: 65.0 in, BMI: 32.78 ALLERGIES: No known drug allergies Medication Ordered Medication Administration Date/Time IV NS 0.9 % 1000 23:43 10/15 IV NS 0.9 % 1000 mL started in bag#1 1000 mL at Started mL at 999 mL/hr 999 mL/hr via Site# 1. Allergies verified and confirmed 5 rights. Via 23:43 10/15/2024 (NOW x1) IV pump. IV patency established. IV site checked: no pain, redness, Irene Rosa R.N. or swelling. IV flushed thoroughly pre-medication administration. Stopped Information reviewed with patient. - 23:45 Irene Rosa R.N. 00:40 10/16/2024 Irene Rosa R.N. 00:40 10/16 Medication Discontinued: bag #1 infused. Total Scanned amount infused: 1000 mL. IV patency established. IV site checked: no pain, redness, or swelling. IV flushed thoroughly post-medication administration. - 01:36 Irene Rosa R.N. Ondansetron IVP 4 23:48 05/08 Ondansetron IVP 4 mg given via Site# 1. Allergies Given mg (NOW x1) verified and confirmed 5 rights. IV patency established. IV site 23:48 10/15/2024 checked: no pain, redness, or swelling. IV flushed thoroughly Irene Rosa R.N. pre-medication administration. IVP given by nurse. Information Scanned reviewed with patient. - 23:53 Irene Rosa R.N. 1 of 2 Dog Pound Attendant Medication Ordered Medication Administration Date/Time KetorOLAC 23:53 05/08 KetorOLAC (Toradol) IVP 30 mg given via Site# 1. Given (Toradol) IVP 30 mg Allergies verified and confirmed 5 rights. IV patency established. IV 23:53 10/15/2024 (NOW x1) site checked: no pain, redness, or swelling. IV flushed thoroughly Irene Rosa R.N. pre-medication administration. IVP given by nurse. Information Scanned reviewed with patient. - 23:54 Irene Rsoa R.N. 00:20 0509 Medication Response: No adverse reaction. Pain is improving. The patient feels better. - 00:20 Irene Rosa R.N. 2 of 2 Normal [facility] ED NURSES CLINICAL NOTEon ED NURSES CLINICAL NOTE Nurse Narrative Nurse Clinical [address] [address] [phone] 10/15/2024 23:05:00 Patient: LUCY CROWLEY V Sex: Female : 2000 Age: 24y Disposition: Discharge to Home Disposition Decision Time: 02:29 10/16/2024 Departure Time: 02:49 10/16/2024 TRIAGE Arrived by private vehicle. Historian: (patient and family). Accompanied by family. Primary physician (None). Triage time: 23:10 10/15/2024. Acuity: LEVEL 3. Chief Complaint: ABDOMINAL PAIN and VOMITING and FEVER (Back pain, Mid-RUQ Abd Pain). This started today. Onset. (After dinner at 1830). ( Recently had vaginal delivery on 09/24/24 and had stent placed in bile duct on 09/25/24 at [facility] by Dr. Chacon. Patient has an appointment to get stent removed on December 03 and then will follow up with Dr. Shaq Richter to schedule having her gallbladder removed.). The patient has had diarrhea. SEPSIS SCREEN: NEGATIVE. SIRS criteria: heart rate greater than 90. -- 23:20 10/15/24 EDT Tricia Dominguez R.N. 23:10/15/24. BP: 103/59 taken on left arm, while lying. MAP: 74. HR: 96. Regular and normal rate. RR: 16. Regular and unlabored. O2 saturation: 97% on room air. Temperature: 97.7 F (oral). Pain level now 6/10. Describes the pain as aching. (Mid abdomen). -- 23:10/15/24 EDT Tricia Dominguez R.N. Measurements: 23:10/15/24 Wt: 89.4 kg, Ht/Wes: 65.0 in, BMI: 32.78 -- 23:10/15/24 EDT Tricia Dominguez R.N. Medications: 1 of 4 Nurse Narrative no known home medications -- 23:10/15/24 EDT Tricia Dominguez R.N. Allergies: no known drug allergies -- 23:10/15/24 DANAT Tricia Dominguez R.N. Problems: no known problem -- 23:10/15/24 DANAT Tricia Dominguez R.N. Surgeries: Appendectomy -- 23:10/15/24 DANAT Tricia Dominguez R.N. History 23:10 10/15/24. PAST MEDICAL HX: Immunizations: status is unknown. Last oral intake by patient was (Tonight at 1800). SOCIAL HX: Never smoker. No alcohol use or drug use. The patient has not traveled outside the [place] Infectious disease exposure: No infectious disease exposure. ABUSE ASSESSMENT: The patient answered yes to the question(s) Do you feel safe in your home? and no to the question(s) Are you afraid to go home?. SELF HARM ASSESSMENT: Self harm assessment was performed. The patient answered no to the question(s) Have you recently felt down, depressed, or hopeless? and Do you have thoughts of harming or killing yourself?. FALL RISK ASSESSMENT: Fall risk assessment completed. No risk factors identified. -- 23:20 10/15/24 EDT Tricia Dominguez R.N. Interventions 23:10 10/15/24. Advanced care plan discussed with patient. Patient does not have advanced directive. -- 23:10/15/24 EDT Tricia Dominguez R.N. 2 of 4 Nurse Narrative PHYSICAL ASSESSMENT 23:17 10/15/24. HR: 87 bpm. O2 saturation: 96%. -- 00:21 10/16/24 EDT Irene Rosa R.N. 23:18 10/15/24. BP: 103/59 taken on left arm, while lying. MAP: 74. HR: 96. Regular and normal rate. RR: 16. Regular and unlabored. O2 saturation: 97% on room air. Temperature: 97.7 F (oral). Pain level now 6/10. Describes the pain as aching. (Mid abdomen). -- 00:10/16/24 EDT Irene Rosa R.N. 23:22 10/15/24. HR: 79 bpm. O2 saturation: 96%. -- 00:10/16/24 EDT Irene Rosa R.N. 23:27 10/15/24. HR: 83 bpm. O2 saturation: 97%. -- 00:10/16/24 EDT Irene Rosa R.N. 23:32 10/15/24. HR: 81 bpm. O2 saturation: 96%. -- 00:21 10/16/24 EDT Irene Rosa R.N. 23:30 10/16/24. Ambulatory to room. Patient gowned. GENERAL / NEURO / PSYCH: Oriented X 4. HEENT: Mucous membranes are pink. RESPIRATORY: Respirations not labored. Breath sounds within normal limits. GI / : Abdomen soft. Abdominal tenderness in the right upper quadrant. Bowel sounds within normal limits. SKIN: Skin is warm and dry. -- 00:30 10/16/24 EDT Irene Rosa R.N. NURSING PROGRESS NOTES 23:30 10/15/24. Site #1 started via IV in the right wrist with a 20g angiocath with aseptic technique and good blood return; 1 attempt. Blood drawn: rainbow set and ruggiero tube(s). Labeled in the presence of the patient and sent to the lab. Saline lock flushed with 5 mL saline. -- 23:44 10/15/24 EDT Irene Rosa R.N. 23:43 10/15/24. IV NS 0.9 % 1000 mL started in bag#1 1000 mL at 999 mL/hr via Site# 1. Allergies verified and confirmed 5 rights. Via IV pump. IV patency established. IV site checked: no pain, redness, or swelling. IV flushed thoroughly pre-medication administration. Information reviewed with patient. -- 23:45 10/15/24 EDT Irene Rosa R.N. 23:48 10/15/24. Ondansetron IVP 4 mg given via Site# 1. Allergies verified and confirmed 5 rights. IV patency established. IV site checked: no pain, redness, or swelling. IV flushed thoroughly pre-medication administration. IVP given by nurse. Information reviewed wi (more content not included)... Normal [facility] ED ORDER SHEET (CPOE ONLY)on 10-16-2024 ED ORDER SHEET (CPOE ONLY) Order Sheet Order Sheet [address] [address] [id number] 10/15/2024 Patient: LUCY CROWLEY V Sex: Female : 2000 Age: 24y MEASUREMENTS: Wt: 89.4 kg, Ht/Wes: 65.0 in, BMI: 32.78 ALLERGIES: No known drug allergies MEDICATION/IV/DRIP/FLUID ORDERS Order Description Priority Entered Acknowledged Completed IV NS 0.9 %1000 mL at 999 23:29 10/15/2024 23:40 23:45 mL/hr (NOW x1) Estelle Quintanilla D.O. 10/15/2024 10/15/2024 Irene Mary R.N. R.N. Ondansetron IVP4 mg (NOW x1) 23:31 10/15/2024 23:40 23:53 Estelle Quintanilla D.O. 10/15/2024 10/15/2024 Irene Mary R.N. R.N. KetorOLAC (Toradol) IVP30 mg 23:31 10/15/2024 23:40 23:54 (NOW x1) Estelle Quintanilla D.O. 10/15/2024 10/15/2024 Irene Mary, Ariadna Rosenthal LAB ORDERS Order Description Priority Entered Acknowledged Collected Completed CBC w Diff Stat Stat 23:29 10/15/2024 23:40 10/15/2024 23:42 10/15/2024 Av Alexis Debra Schrock, 1 of 3 Order Sheet R.Jess R.N. CMP Stat Stat 23:29 10/15/2024 23:40 10/15/2024 23:42 10/15/2024 Av Alexis Debra Schrock, R.N. R.N. EKG - ED Stat Stat 23:29 10/15/2024 23:40 10/15/2024 23:42 10/15/2024 Av Alexis Debra Schrock, R.N. R.N. Lactate, Serum Stat Stat 23:29 10/15/2024 23:40 10/15/2024 23:42 10/15/2024 Av Alexis Debra Schrock, R.N. R.N. Urinalysis Stat Stat 23:29 10/15/2024 23:40 10/15/2024 23:42 10/15/2024 Av Alexis Debra Schrock, R.N. R.N. Lipase Stat Stat 23:30 10/15/2024 23:40 10/15/2024 23:42 10/15/2024 Av Alexis Debra Schrock, R.N. R.N. CRP Stat Stat 23:30 10/15/2024 23:40 10/15/2024 23:43 10/15/2024 Av Alexis Debra Schrock, R.N. R.N. HCG, Qual Serum Stat Stat 23:30 10/15/2024 23:40 10/15/2024 23:42 10/15/2024 Av Alexis Debra Schrock, R.N. R.N. general surgery please 01:32 10/16/2024 01:35 10/16/2024 01:35 10/16/2024 Av Alexis Debra Schrock, R.N. R.N. DIAGNOSTIC STUDY ORDERS Order Description Priority Entered Acknowledged Completed CT ABD/PEL w Cont Stat Stat 23:29 10/15/2024 23:40 23:43 Estelle Quintanilla D.O. 10/15/2024 10/15/2024 2 of 3 Order Sheet Irene Mary R.N. R.N. Order Comments: 23:29 10/15/2024: Status: Not . Estelle Quintanilla D.O. Reason for Study: Abdominal Pain STAFF ORDERS Order Description Priority Entered Acknowledged Collected Completed Vital Signs every 30 23:29 10/15/2024 23:40 10/15/2024 23:43 10/15/2024 minutes Av Alexis Debra Schrock, R.N. R.N. Molecular Genetic Pathologist 23:29 10/15/2024 23:40 10/15/2024 23:42 10/15/2024 Av Alexis Debra Schrock, R.N. R.N. Oxygen titrate to 92% 23:29 10/15/2024 23:40 10/15/2024 23:43 10/15/2024 Av Alexis Debra Schrock, R.N. R.N. [Electronically signed by Estelle Quintanilla D.O. (10/16/2024 03:24 EDT)] 3 of 3 Normal [facility] ED PHYSICIAN CLINICAL REPORT on 10-16-2024 ED PHYSICIAN CLINICAL REPORT Narrative Physician Clinical Narrative [place] [address] [place] [address] [phone] 10/15/2024 23:05:00 Patient: LUCY CROWLEY V [facility]#: [id number] Sex: Female : 2000 Age: 24y Disposition: Discharge to Home Disposition Decision Time: 02:29 10/16/2024 Departure Time: 02:49 10/16/2024 Measurements Wt: 89.4 kg, Ht/Wes: 65.0 in, BMI: 32.78 Initial Vital Sign Measured Time BP MAP HR RR O2Sat ETCO2 Temp Pain GCS RTS 23:10 10/15/2024 103/59 75 84 Time Seen: 23:03 10/15/2024. Arrived- By private vehicle. Historian- patient. HISTORY OF PRESENT ILLNESS Chief Complaint: ABDOMINAL PAIN. It is described as located in the right upper quadrant. This started today Pain started about an hour after she ate tonight. Pancakes. and is still present (worse). At its maximum, severity described as moderate. When seen in the E.D., severity described as moderate. The patient has had nausea and vomiting. No loss of appetite. No recent travel. Similar symptoms previously. Patient has had similar symptoms once. Recent medical care: The patient was seen recently and hospitalized. ( Delivered a baby here on September 24. Was transferred to [place] and had a stent placed in her gallbladder [facility] on September 25. He was 1 of 11 Narrative scheduled to have the stent removed end of November this year. And she is on the schedule in early January with Dr. Shaq Richter for cholecystectomy.). REVIEW OF SYSTEMS : No difficulty with urination, pain with urination or urinary frequency. CONSTITUTIONAL: No fever or chills. The patient has not had weight loss. THROAT: No sore throat. EYES: No blurred vision. CVS: No chest pain. RESPIRATORY: No difficulty breathing or cough. MUSCULOSKELETAL: No joint pain. The patient has had back pain. SKIN: No skin rash. NEUROLOGICAL: No headache. GI: No constipation, black stools or hematemesis. Status: Not . PAST HISTORY See nurses notes. no known problem Surgeries: Appendectomy Medications: no known home medications Allergies: no known drug allergies SOCIAL HISTORY Never smoker. No alcohol use or drug use. ADDITIONAL NOTES The nursing notes have been reviewed. PHYSICAL EXAM Appearance: Alert. Oriented X3. No acute distress. Eyes: Pupils equal, round and reactive to light. 2 of 11 Narrative ENT: Nose normal. Dry mucous membranes present. Pharynx normal. Neck: Normal inspection. Neck supple. CVS: Normal heart rate and rhythm. Heart sounds normal. Pulses normal. Respiratory: No respiratory distress. Breath sounds normal. Chest nontender. Abdomen: Soft. Moderate tenderness in the right upper quadrant with guarding present. No rebound tenderness. Abnormal bowel sounds: diminished. No mass. No rebound tenderness or distention. Back: Normal inspection. Skin: Skin warm and dry. No rash. Extremities: Extremities exhibit normal ROM. No lower extremity edema. Neuro: Oriented X 3. No motor deficit. No sensory deficit. LABS, X-RAYS, AND EKG 12-LEAD EKG: EKG time: 00:04 10/16/2024. Normal sinus rhythm. Rate: 76. Normal P waves. Normal QRS complex. Normal ST and T waves. The study has been interpreted contemporaneously by me. The EKG appears to be a good tracing. Interpretation time: 00:05 10/16/2024. CT Abdomen - Pelvis: no urinary tract calculi or hydronephrosis. No free air or fluid. No thickened bowel. Common bile duct and pancreatic stents are noted. There was wall thickening of the gallbladder without evidence of radiopaque gallstones. No surrounding free fluid. Findings are equivocal and may represent acute inflammation. Prior appendectomy. No bowel obstruction. Lung bases show no acute process. Interpretation time: 01:21 10/16/2024. Laboratory Tests: C-REACTIVE PROTEIN Final FRANCIA: 10/15/2024 23:30:00 EDT MsgRcvd: 10/16/2024 00:04 EDT Lab Test Result Reference Status Received Comments 3.45 mg/dl 10/16/2024 00:04 CRP 0.00 - 0.90 Final Above high normal EDT CBC + DIFF Final FRANCIA: 10/15/2024 23:30:00 EDT MsgRcvd: 10/16/2024 00:02 EDT Lab Test Result Reference Status Received Comments 3 of 11 Narrative Lab Test Result Reference Status Received Comments 10/16/2024 00:02 CBC-COMPLETE CBC + DIFF Final EDT BLOOD COUNT 10/16/2024 00:02 WBC 8.4 x 10/UL 4.5 - 10.8 Final EDT 4.00 x 10/UL 10/16/2024 00:02 RBC 4.10 - 5.30 Final Below low normal EDT 10/16/2024 00:02 HEMOGLOBIN 12.8 g/dl 12.0 - 16.0 Final EDT 10/16/2024 00:02 HEMATOCRIT 36.5 % 34.0 - 46.0 Final EDT 10/16/2024 00:02 MCV 91 fl 80 - 99 Final EDT 10/16/2024 00:02 MCH 32 pg 27 - 33 Final EDT 10/16/2024 00:02 MCHC 35 X10 3 32 - 36 Final EDT 10/16/2024 00:02 RDW/CV 12.8 % 12.0 - 15.6 Final EDT 10/16/2024 00:02 PLATELET 234 x10/UL 150 - 450 Fi (more content not included)... Normal [facility] ED SUPER BILLon 10-16-2024 ED SUPER BILL [facility] [address] [place] [address] [phone] 10/15/2024 Patient: LUCY CROWLEY V Sex: Female : 2000 Age: 24y Facility Professional Category Item Description Code Code Quantity Fee Total Drugs Normal Saline 576344 1 $0.00 $0.00 1000cc (662613) Nurse/E/M EMERGENCY 122979 1 $0.00 $0.00 DEPT VISIT HIGH SEVERITYFUNCJ (10396-96) Nurse/IV/IM/Infusions Hydration 699399 1 $0.00 $0.00 additional hour (28802) Nurse/IV/IM/Infusions IVP additional 857656 1 $0.00 $0.00 push (43899) Nurse/IV/IM/Infusions IVP initial (14644) 807029 1 $0.00 $0.00 Grand $0.00 Total Providers Estelle Quintanilla D.O. Chief Complaint 1 of 2 Superbill ABDOMINAL PAIN. Principal Diagnosis Acute right upper quadrant abdominal pain. Biliary colic. ICD-10 Codes R10.11: Right upper quadrant pain K80.50: Calculus of bile duct without cholangitis or cholecystitis without obstruction 2 of 2 Normal [facility] ED VISIT SUMMARYon ED VISIT SUMMARY Visit Overview Visit Overview [place] [address] [facility] [place] [address] [phone] 10/15/2024 Patient: LUCY CROWLEY V Sex: Female : 2000 Age: 24y 10/16/2024 07:38 AM EDT ED Arrival:23:05 10/15/2024 EDT Status:not Recent Travel: Language:eng Adv Directive: Isolation Status: Ethnicity:N Fall Risk: Infectious Disease Exposure: Measurements:5'5 / 165.1 Self-Harm Status: Sepsis Screen: cm 197.0 lb / 89.4 kg Chief Complaint: ALLERGIES No Known Drug Allergies HOME MEDICATIONS None PAST MEDICAL HISTORY / PROBLEMS None See nurses notes PAST SURGICAL HISTORY Visit Overview Appendectomy SOCIAL HISTORY ED COURSE MEDICATIONS GIVEN IN EMERGENCY DEPARTMENT 23:43 10/15/24 IV NS 0.9 % 1000 mL 999 mL/hr 23:48 10/15/24 Ondansetron IVP 4 mg 23:53 10/15/24 KetorOLAC (Toradol) IVP 30 mg IV SITE INFORMATION INTAKE OUTPUT REASSESMENT (most recent) VITAL SIGNS First Vitals Last Vitals Temp 23:10 10/15/24 Temp 02:47 10/16/24 BP 23:10 10/15/24 103/59 BP 02:47 10/16/24 HR 23:10 10/15/24 84 HR 02:47 10/16/24 68 RR 23:10 10/15/24 RR 02:47 10/16/24 O2 Sat 23:10 10/15/24 O2 Sat 02:47 10/16/24 96% Pain 23:10 10/15/24 Pain 02:47 10/16/24 ETCO2 23:10 10/15/24 ETCO2 02:47 10/16/24 GCS 23:10 10/15/24 GCS 02:47 10/16/24 RTS 23:10 10/15/24 RTS 02:47 10/16/24 PROCEDURES NURSING INTERVENTIONS LABS / STUDIES LABS / STUDIES ORDERED CBC w Diff CMP 2 of [address] ABD/PEL w Cont EKG - ED general surgery please HCG, Qual Serum Lactate, Serum Lipase Urinalysis CLINICAL IMPRESSION ACUTE RIGHT UPPER QUADRANT ABDOMINAL PAIN BILIARY COLIC 3 of 3 Normal [facility] ED VITALS FLOW SHEETon 10-16 ED VITALS FLOW SHEET Vitals Vital Sign Flow Sheet [facility] [address] [place] [address] [phone] 10/15/2024 Patient: LUCY CROWLEY V Sex: Female : 2000 Age: 24y Measurements Wt: 89.4 kg, Ht/Wes: 65.0 in, BMI: 32.78 Measured Time BP MAP HR RR O2Sat ETCO2 Temp Pain GCS RTS 02:47 10/16/2024 68 96% 02:44 10/16/2024 93/56 68 65 02:43 10/16/2024 16 0 02:42 10/16/2024 66 95% 02:37 10/16/2024 69 95% 02:32 10/16/2024 69 96% 02:27 10/16/2024 73 95% 02:22 10/16/2024 76 94% 02:17 10/16/2024 74 95% 02:14 10/16/2024 106/65 78 76 02:12 10/16/2024 77 96% 02:07 10/16/2024 81 96% 02:02 10/16/2024 88 96% 01:57 10/16/2024 81 96% 01:52 10/16/2024 80 96% 1 of 3 Vitals Measured Time BP MAP HR RR O2Sat ETCO2 Temp Pain GCS RTS 01:47 10/16/2024 78 95% 01:44 10/16/2024 89/59 65 82 01:42 10/16/2024 84 95% 01:37 10/16/2024 82 95% 01:32 10/16/2024 82 95% 01:27 10/16/2024 84 95% 01:22 10/16/2024 80 95% 01:17 10/16/2024 79 94% 01:14 10/16/2024 93/61 67 80 00:24 10/16/2024 98/60 68 77 00:09 10/16/2024 99/64 75 78 00:02 10/16/2024 80 97% 23:57 10/15/2024 80 97% 23:54 10/15/2024 112/77 84 78 23:52 10/15/2024 80 97% 23:47 10/15/2024 80 96% 23:42 10/15/2024 78 97% 23:39 10/15/2024 109/73 83 73 23:37 10/15/2024 83 96% 23:32 10/15/2024 81 96% 23:27 10/15/2024 83 97% 23:22 10/15/2024 79 96% 23:18 10/15/2024 103/59 74 96 16 97% RA 97.7 F 6 23:17 10/15/2024 87 96% 23:12 10/15/2024 89 97% 2 of 3 Vitals Measured Time BP MAP HR RR O2Sat ETCO2 Temp Pain GCS RTS 23:10 10/15/2024 103/59 75 84 3 of 3 Normal [facility] LACTATEon 10-16-2024 Lactate [Moles/Vol] 0.5 mmol/L Normal 0.4 - 2.0 [facility] Comment on above: Performed By: #### 2 [id number] #### [place] [address] LIPASEon 10-16-2024 Lipase [Catalytic activity/Vol] 27.0 U/L Normal 15.0 - 78.0 [facility] Comment on above: Result Comment: *PLE ASE NOTE THAT RANGES FOR LIPASE HAVE CHANGED OF 06/07/23 DUE TO AN ASSAY UPDATE BY THE ENGINE LATHE OPERATOR.THE NEW ASSAY RANGE IS 6-250 U/L, WITH A REFERENCE RANGE OF 16-77 U/L. Performed By: #### 2 46485 #### [place] [address] SERUM QUALon 10-16 EXTERNAL QC DONE? YES Normal [facility] Comment on above: Performed By: #### 2 50623 #### [facility],[address] [place] [address] INTERNAL QC PASS Normal [facility] Comment on above: Performed By: #### 2 97469 #### [facility],[address] [place] [address],[facility] [address] SER Negative Normal NEGATIVE [facility] Comment on above: Performed By: #### 2 49965 #### [facility],[address] [place] [address] URINALYSISon 10-16-2024 Amorphous NONE Normal [facility] Comment on above: Performed By: #### 2 40501 #### [facility],[address] [place] [address] Bacteria NONE Normal [facility] Comment on above: Performed By: #### 2 56698 #### [facility],[address] [place] [address] Bilirubin Ql (U) Negative Normal NORMAL: NEGATIVE [facility] Comment on above: Performed By: #### 2 00719 #### [facility],[address] [place] [address] Casts NONE Normal [facility] Comment on above: Performed By: #### 2 28905 #### [facility],[address] [place] [address]90[address] Clarity (U) clear Normal NORMAL: CLEAR [facility] Comment on above: Performed By: #### 2 19436 #### [facility],[address] [place] [address]73 Color (U) yellow Normal NORMAL: YELLOW [facility] Comment on above: Performed By: #### 2 62557 #### [facility],[address] [place] [address]5935 Crystals LM Nom (Urine sed) NONE Normal [facility] Comment on above: Performed By: #### 2 21177 #### [facility],[address] [place] [address]0146 Epi Cells OCC Normal [facility] Comment on above: Performed By: #### 2 17285 #### [facility],[address] [place] [address]0812 Glucose Ql (U) NORM Normal NORMAL: NORMAL [facility] Comment on above: Performed By: #### 2 95320 #### [facility],[address] [place] [address]231 Hemoglobin Ql (U) 10 Abnormal NORMAL: NEGATIVE [facility] Comment on above: Performed By: #### 2 50762 #### [facility],[address] [place] [address] 24510 Ketone 15 Abnormal NORMAL: NEGATIVE [facility] Comment on above: Performed By: #### 2 68274 #### [facility],[address] [place] [address] 91899 Leukocytes Negative Normal NORMAL: NEGATIVE [facility] Comment on above: Performed By: #### 2 79619 #### [facility],[address] [place] [address]68[address] Mucous NONE Normal [facility] Comment on above: Performed By: #### 2 18749 #### [facility],[address] [place] [address]1334 Nitrite Ql (U) Negative Normal NORMAL: NEGATIVE [facility] Comment on above: Performed By: #### 2 70390 #### [facility],[address] [place] [address] 28054 pH (U) 6 [pH] Normal NORMAL: 5.0-8.0 [facility] Comment on above: Performed By: #### 2 29574 #### [facility],[address] [place] [address]3459 Protein Ql (U) Negative Normal NORMAL: NEGATIVE [facility] Comment on above: Performed By: #### 2 74759 #### [facility],[address] [place] [address] 05840 Rbc RARE Normal 0-3/hpf [facility] Comment on above: Performed By: #### 2 51230 #### [facility],[address] [place] [address] Sp Maynard 1.015 Normal NORMAL: 1.010-1.030 [facility] Comment on above: Performed By: #### 2 15163 #### [facility],[address] [place] [address] Specimen Type R Normal [facility] Comment on above: Performed By: #### 2 92268 #### [facility],[address] [place] [address] Urinalysis dipstick W Reflex Microscopic panel (U) SEE BELOW Normal [facility] Comment on above: Result Comment: MICR OSCOPIC Performed By: #### 2 96212 #### [facility],[address] [place] [address] Urobilinog NORM Normal NORMAL: NORMAL [facility] Comment on above: Performed By: #### 2 94316 #### [facility],[address] [place] [address] Wbc NONE Normal 0-5/hpf [facility] Comment on above: Performed By: #### 2 85542 #### [facility],[address] [place], [place] [id number] Yeast NONE Normal [facility] Comment on above: Performed By: #### 2 71209 #### [facility],[address] [place], [place] [id number] Gastroenterology Visit Repor ton 10-09-2024 Gastroenterology Visit Report [facility] [address] [place] [address] OFFICE VISIT Date of Service: 10/09/24 MR#: [id number] Acct: [id number] Name: LUCY CROWLEY Jamar Rep #: [id number] : 2000 Provider: CARMEN Castillo Age/Sex: 24/F [place] [facility] Status: Signed Intake Vital Signs 09/25/24 18:42 Height 5 ft 4 in Intake Visit Reasons: New PT Chief Complaint: choledocolithiasis Accompanied by: Is patient in pain?: No Allergies No Known Allergies Allergy (Verified 09/25/24 14:07) Nurse's Note: OV 10/09/24 pt here for f/u and reports she is feeling well. Reports gas, bloating and heartburn. Pt continues amoxicillin daily. [facility] Medical History (Updated 10/09/24 @ 09:08 by CARMEN Castillo) Biliary colic Surgical History Hx of appendectomy Family History Mother No problems noted. Father No problems noted. Social History household members: spouse, children and other details: 2 older children at home, 1 miscarriage, 1 09/24/24. Smoking Status: Never smoker alcohol intake: never substance use type: does not use HPI HPI Chief Complaint: choledocolithiasis Details: LUCY CROWLEY, is a 24 F who presents to the office today for establishment with [facility] admission 4.-09.26.24 for biliary colic with elevated bili (4.8), AST (350), ALT (371) and ALP (200). US showing filing defects in gallbladder and CBD. She underwent ERCP with stone removal and CBD and pancreatic stent placement. Surgical consultation but pt decided to have her surgery at [facility]. OV 5..25 Pt here today for f/u after hospital admission. She is feeling well after having the stent and being on antibiotics. SHe has also been eating a low fat diet. She was seen by her surgeon at [facility] for cholecystectomy however he requested the CBD stent be removed before her performs surgical operation. ROS Const Constitutional: No fatigue, fever(s) or weight change ENT ENT: No difficulty swallowing Gastro GI: Positive for bloating, heartburn and excessive flatus; No abdominal pain, belching, change in bowel habits, change in stool character, coffee ground emesis, constipation, cramping, diarrhea, difficulty swallowing, feeling full early, incontinent of stools, Vomiting blood/hematemesis, Blood in stool, loose stools, Black,tarry stools, nausea/dyspepsia, pain with swallowing, vomiting or other Musc Musculoskeletal: No joint pain Skin Skin: No yellowing of the eye or itchy eyes Psych Psychiatric: No anxiety and No depression Endo Endocrine: No fatigue or weight change Aller/Imm Allergy/Immunologic: No itchy eyes Tai/Lymp Hematologic/Lymphatic: No easy bleeding or easy bruising Exam Const General: cooperative and comfortable Nutritional Appearance: average body habitus and well nourished [facility] Head: normal to inspection Ears: hearing grossly normal bilaterally Nose: external nose normal Face and sinus: normal facial exam Eyes General: appearance normal, both eyes and all related structures Neck Neck: normal visual inspection Chest Chest palpation inspection: normal inspection of the chest and normal palpation of entire chest wall Resp Effort Inspection: normal respiratory effort Auscultation: Bilateral: Clear to Auscultation Cardio Palpation: normal PMI Rate: regular rate Rhythm: regular rhythm GI Inspection: normal to inspection Auscultation: normal bowel sounds Percussion: normal to percussion Palpation: soft and no hepatosplenomegaly Skin General: no rashes or lesions noted Neuro General: patient alert Extrem General: normal to inspection Psych Affect: normal affect Assessment and Plan Assessment and Plan (1) History of biliary stent insertion: Status: Acute Plan: This is a 24 yo female pt here today for hospital f/u. Pt had vaginal delivery of her baby about two weeks ago and following this she underwent ERCP with stone removal and CBD stent placement. General surgery consulted and recommended cholecystectomy however she wanted to have her surgeon at [place] Dr. Shaq Richter perform the surgery. She was seen by gen surg at [facility] and Dr. Richter wanted the stent removed prior to cholecystectomy. She will be scheduled for ERCP with stent pull. -ERCP with stent pull -f/u as needed Medications: Discontinued vit,[id number] 29-1 mg (Prenatabs FA) Discontinued Reason: Pt no longer taking 1 TAB PO DAILY@1200 30 days 30 tabs 3RF sennosides-docusate sodium 8.6-50 mg (Stimulant Laxative Plus) Discontinued Reason: Pt no longer taking 2 tabs PO BID PRN PRN 0 tabs 0RF Constipation Nida (more content not included)... Normal [facility] Absolute lymphocyte countOrd ered By: Radha Romano on 09-26-2024 Lymphocytes Auto (Unsp spec) [#/Vol] 2.03 10*3/uL 0.83-4.51 [facility] Absolute neutrophil countOrd ered By: Radha Romano on 09-26-2024 Neutrophils (Bld) [#/Vol] 6.4 10*3/uL 2.0-7.7 [facility] Anion gap in Serum or Plasma Ordered By: Radha Romano on 09-26-2024 Anion gap [Moles/Vol] 9 mmol/L 5- [facility] Automated lymphocyte count a s percentage of total leukocytesOrdered By: [facility] Rosalina on 09-26-2024 Lymphocytes/100 WBC Auto (Unsp spec) 22.4 % [facility] BUN/creatinine ratioOrdered By: Radha Romano on 09-26-2024 Urea nitrogen/Creatinine [Mass ratio] 7.8 mg/mg Low 10- [facility] Basic Metabolic Profile (BMP )on 09-26-2024 BUN/CRE 7.8 RATIO Low 10- [facility] Comment on above: Performed By: #### L 100.0100, L500.4050 #### [facility] [address] [place], [address] Calcium [Mass/Vol] 8.1 mg/dL Normal 7.6-11.0 [facility] Comment on above: Performed By: #### L 100.0100, L500.4050 #### [facility] [address] [place], [address] Chloride [Moles/Vol] 108 mmol/L Normal 98-108 [facility] Comment on above: Performed By: #### L 100.0100, L500.4050 #### [facility] [address] [place], [address] CO2 [Moles/Vol] 21.9 mmol/L Normal 21.0-32.0 [facility] Comment on above: Performed By: #### L 100.0100, L500.4050 #### [facility] [address] [place], [address] Creatinine [Mass/Vol] 0.70 mg/dL Normal 0.70-1.20 [facility] Comment on above: Performed By: #### L 100.0100, L500.4050 #### [facility] [address] [place], [address] ECRCL 136.89 ml/min Normal 50-250 [facility] Comment on above: Performed By: #### L 100.0100, L500.4050 #### [facility] [address] [place], [address] GAP 9 Normal 5-15 [facility] Comment on above: Performed By: #### L 100.0100, L500.4050 #### [facility] [address] [place], [address] GFR/1.73 sq M.predicted among non-blacks MDRD (S/P/Bld) [Vol rate/Area] 123 mL/min/{1.73_m2} Normal >60 [facility] Comment on above: Result Comment: mL/m in/1.73m2 CKD-EPI Creatinine Equation (2020) Performed By: #### L 100.0100, L500.4050 #### [facility] [address] [place], [address] Glucose [Mass/Vol] 77 mg/dL Normal 70-99 [facility] Comment on above: Performed By: #### L 100.0100, L500.4050 #### [facility] [address] [place], [address] Potassium [Moles/Vol] 3.9 mmol/L Normal 3.3-5.1 [facility] Comment on above: Result Comment: Hemo lysis present, Results??could be affected. ?? Performed By: #### L 100.0100, L500.4050 #### [facility] [address] [place], [address] Sodium [Moles/Vol] 139 mmol/L Normal 133-145 [facility] Comment on above: Performed By: #### L 100.0100, L500.4050 #### [facility] [address] [place], [address] Urea nitrogen [Mass/Vol] 5 mg/dL Normal - [facility] Comment on above: Performed By: #### L 100.0100, L500.4050 #### [facility] [address] [place], [address] Basophil percentageOrdered B y: White on 09-26-2024 Basophils/100 WBC (Bld) 0.4 % 0-1 [facility] Bilirubin directOrdered By: White on 09-26-2024 Bilirubin.direct [Mass/Vol] 0.66 mg/dL High 0.00-0.30 [facility] Bilirubin, totalOrdered By: White on 09-26-2024 Bilirubin [Mass/Vol] 0.99 mg/dL 0.00-1.30 [facility] CBC W/Diff, Automatedon 09-08 Absolute Lymph 2.03 X10 3/uL Normal 0.83-4.51 [facility] Comment on above: Performed By: #### L 500.2500, L100.0100, L501.2450, L500.3400 #### [facility] [address] [place], [address] Absolute Neut 6.4 X10 3/uL Normal 2.0-7.7 [facility] Comment on above: Performed By: #### L 500.2500, L100.0100, L501.2450, L500.3400 #### [facility] [address] [place], [address] Basophils/100 WBC (Bld) 0.4 % Normal 0-1 [facility] Comment on above: Performed By: #### L 500.2500, L100.0100, L501.2450, L500.3400 #### [facility] [address] [place], [address] Eosinophils/100 WBC (Bld) 1.0 % Normal 0-5 [facility] Comment on above: Performed By: #### L 500.2500, L100.0100, L501.2450, L500.3400 #### [facility] [address] [place], [address] Erythrocyte distribution width (RBC) [Ratio] 13.1 % Normal 11.6-14.6 [facility] Comment on above: Performed By: #### L 500.2500, L100.0100, L501.2450, L500.3400 #### [facility] [address] [place], [address] Hematocrit (Bld) [Volume fraction] 33.9 % Low 37-47 [facility] Comment on above: Performed By: #### L 500.2500, L100.0100, L501.2450, L500.3400 #### [facility] [address] [place], [address] Hemoglobin (Bld) [Mass/Vol] 11.4 g/dL Low 12.0-15.0 [facility] Comment on above: Performed By: #### L 500.2500, L100.0100, L501.2450, L500.3400 #### [facility] [address] [place], [address] IG% 0.800 Normal 0.0-0.9 [facility] Comment on above: Result Comment: IG% - Immature Granulocytes (promyelocytes, myelocytes and metamyelocytes) > 1% indicates that a LEFT SHIFT is Present. Performed By: #### L 500.2500, L100.0100, L501.2450, L500.3400 #### [facility] [address] [place], [address] Lymphocytes/100 WBC (Bld) 22.4 % Normal 19-41 [facility] Comment on above: Performed By: #### L 500.2500, L100.0100, L501.2450, L500.3400 #### [facility] [address] [place], [address] MCH (RBC) [Entitic mass] 31.4 pg Normal 27.0-32.0 [facility] Comment on above: Performed By: #### L 500.2500, L100.0100, L501.2450, L500.3400 #### [facility] [address] [place], [address] MCHC (RBC) [Mass/Vol] 33.6 g/dL Normal 32-36 [facility] Comment on above: Performed By: #### L 500.2500, L100.0100, L501.2450, L500.3400 #### [facility] [address] [place], [address] MCV (RBC) [Entitic vol] 93.4 fL Normal 81-99 [facility] Comment on above: Performed By: #### L 500.2500, L100.0100, L501.2450, L500.3400 #### [facility] [address] [place], [address] Monocytes/100 WBC (Bld) 5.1 % Normal 0-10 [facility] Comment on above: Performed By: #### L 500.2500, L100.0100, L501.2450, L500.3400 #### [facility] [address] [place], [address] Neutrophils/100 WBC (Bld) 70.3 % High 47-70 [facility] Comment on above: Performed By: #### L 500.2500, L100.0100, L501.2450, L500.3400 #### [facility] [address] [place], [address] Nucleated RBC (Bld) [#/Vol] 0 10*3/uL Normal 0-5 [facility] Comment on above: Performed By: #### L 500.2500, L100.0100, L501.2450, L500.3400 #### [facility] [address] [place], [address] Platelet mean volume (Bld) [Entitic vol] 10.5 fL Normal 6.2-12.0 [facility] Comment on above: Performed By: #### L 500.2500, L100.0100, L501.2450, L500.3400 #### [facility] [address] [place], [address] Platelets (Bld) [#/Vol] 195 10*3/uL Normal 150-450 [facility] Comment on above: Performed By: #### L 500.2500, L100.0100, L501.2450, L500.3400 #### [facility] [address] [place], [address] RBC (Bld) [#/Vol] 3.63 10*6/uL Low 4.2-5.4 [facility] Comment on above: Performed By: #### L 500.2500, L100.0100, L501.2450, L500.3400 #### [facility] [address] [place], [address] RDW SD 45.0 fl High 35.1-43.9 [facility] Comment on above: Performed By: #### L 500.2500, L100.0100, L501.2450, L500.3400 #### [facility] [address] [place], [address] WBC (Bld) [#/Vol] 9.1 10*3/uL Normal 4.4-11.0 [facility] Comment on above: Performed By: #### L 500.2500, L100.0100, L501.2450, L500.3400 #### [facility] [address] [place], [address] Carbon dioxide, total [Moles /volume] in Central venous bloodOrdered By: Radha White on 09-26-2024 CO2 [Moles/Vol] 21.9 mmol/L 21.0-32.0 [facility] Chloride assayOrdered By: Fanny shah White on 09-26-2024 Chloride [Moles/Vol] 108 mmol/L 98-108 [facility] Consultation - Surgicalon Consultation - Surgical [facility] Medical Records Department [address] [place] [address] Consultation - Surgical 09/26/24 0908 MR#: [id number] Acct: [id number] Name: LUCY CROWLEY V Rep #: [id number] : 2000 From: Chandan Mayo MD PCP: Dr. Heather Ruby, DO Status:[facility]M IN [facility] Assessment Plan Assessment/Plan (1) Choledocholithiasis: PLAN: Patient gave the day before presentation she presented then with choledocholithiasis. She had ERCP yesterday with stent placement and stone removal. She is feeling well this morning. I will start her on clear liquids. The patient would like to follow-up with Dr. Shaq Richter at [facility] for her cholecystectomy. I will refer her on Saturday. I gave her my card in case he is unable to do the surgery and she can follow-up with me. I believe she is safe to be discharged home today or tomorrow depending on hospitalist service. She has a stent in place to prevent further blockage. Chandan Mayo MD Pager: [facility] [address] [place] [address] [address], [address] [place] [address] Office: HPI Consult Data Date of Consult: 09/26/24 HPI Narrative HPI Narrative: LUCY CROWLEY, is a 24 F who presents with choledocholithiasis from outside hospital. She underwent ERCP yesterday with stone removal and stent placement. Currently she is not having any pain. [facility] Medical History Biliary colic Home Medications ???Medication ???Instructions ???Recorded ???Last Taken ???Type NK 09/25/24 Unknown History Allergy/AdvReac Type Severity Reaction Status Date / Time No Known Allergies Allergy Verified 09/25/24 14:07 Family History Mother No problems noted. Father No problems noted. Surgical History Hx of appendectomy Social History household members: spouse, children and other details: 2 older children at home, 1 miscarriage, 1 09/24/24. Smoking Status: Never smoker alcohol intake: never substance use type: does not use ROS Constitutional Constitutional: Denies anorexia, chills, fatigue or fever(s) Eyes Eyes: Denies blurry vision ENT HEENT: Denies abnormal hearing Gastrointestinal Gastrointestinal: Reports abdominal pain; Denies nausea or vomiting Genitourinary Genitourinary: Denies change in urinary stream Musculoskeletal Musculoskeletal: Denies abnormal gait Psychiatric Psychiatric: Denies anxiety Endocrine Endocrinology: Denies flushing Hematologic/Lymphatic Hematologic/Lymphatic: Denies easy bleeding Physical Exam Const alert and oriented x3 HEENT normocephalic Eyes PERRL Resp normal respiratory effort Cardio Rate: regular rate Rhythm: regular rhythm GI soft to palpation and non-tender Lab / Micro Data 09/26/24 05:40 09/26/24 05:40 Labs: Laboratory Results - last 24 hr 09/25/24 14:40: WBC 10.2, RBC 3.75 L, Hgb 11.7 L, Hct 34.0 L, MCV 90.7, MCH 31.2, MCHC 34.4, RDW Std Deviation 42.6, RDW Coeff of Rebeca 13.0, Plt Count 177, MPV 10.4, Immature Gran % (Auto) 0.900, Neut % (Auto) 77.6 H, Lymph % (Auto) 15.8 L, Mathews % (Auto) 4.9, Eos % (Auto) 0.4, Baso % (Auto) 0.4, A bsolute Neuts (auto) 8.0 H, Absolute Lymphs (auto) 1.62, Nucleated RBC % 0, Sodium 137, Potassium 3.6, Chloride 104, Carbon Dioxide 22.6, Anion Gap 10, BUN 4, Creatinine 0.70, Est GFR (MDRD) Non-Af 123, BUN/Creatinine Ratio 6.2 L, Glucose 108 H, Calcium 9.0, Total Bilirubin 4.12 H, Direct Bilirubin 3.02 H, AST 74 H, ALT 95 H, Alkaline Phosphatase 154 H, Total Protein 6.2, Albumin 3.4 L, Globulin 2.8, Lipase 23 09/25/24 14:45: Lactic Acid < 1.0 09/26/24 05:40: WBC 9.1, RBC 3.63 L, Hgb 11.4 L, Hct 33.9 L, MCV 93.4, MCH 31.4, MCHC 33.6, RDW Std Deviation 45.0 H, RDW Coeff of Rebeca 13.1, Plt Count 195, MPV 10.5, Immature Gran % (Auto) 0.800, Neut % (Auto) 70.3 H, Lymph % (Auto) 22.4, Mathews % (Auto) 5.1, Eos % (Auto) 1.0, Baso % (Auto) 0.4, Absolute Neuts (auto) 6.4, Absolute Lymphs (auto) 2.03, Nucleated RBC % 0, Sodium 139, Potassium 3.9, Chloride 108, Carbon Dioxide 21.9, Anion Gap 9, BUN 5, Creatinine 0.70, Estim Creat Clear Calc 136.89, Est GFR (MDRD) Non-Af 123, BUN/Creatinine Ratio 7.8 L, Glucose 77, Calcium 8.1, Total Bilirubin 0.99, Direct Bilirubin 0.66 H, AST 51 H, ALT 70 H, Alkaline Phosphatase 130 H, Total Protein 5.9, Albumin 3.0 L, Globulin 2.9, Lipase 1358 H Imaging Radiology Impression Endo Retro Cholangiopancreatogram 09/25/24 17:15 IMPRESSION: ERCP with placement of pancreatic and CBD stents. Reading Loca (more content not included)... Normal [facility] Discharge Instructionon 09-08 Discharge Instruction [facility] Medical Records Department [address] [place] [address] Instructions for Home/Discharge Instructions 09/26/24 1118 MR#: [id number] Acct: [id number] Name: LUCY CROWLEY V Rep #: [id number] : 2000 From: Carlin Negron MD PCP: Dr. Heather Ruby DO Status:ADM IN Discharge Instructions Diet Discharge Diet: Light diet - advance as tolerated DC O2, CPAP, BIPAP needs Home O2 Discharge instructions: No Dressing / Incision Discharge Activity: Return to Normal Activity Weight Bearing Status: Weight bearing as tolerated Dressing / Incision Call your doctor if you observe: Fever of 101 or Higher, Coldness, Increased Pain, Numbness or Tingling, Change in Color, Inability to urinate, Inability to have a bowel movement, Shortness of breath, Dizziness, Fainting spells, Swelling in the ankles, Chest pain, Prolonged hiccupping, Increased palpitations (irregular heartbeat) and Calf discomfort Follow Up Care When: IN 2 WEEKS Test Results: Test results from this visit will be discussed in further detail at your follow-up appointment, if applicable. Discharge Plan Admission Admit Date/Time: 09/25/24 16:14 Attending Provider: Carlin Negron Primary Care Provider: Heather Ruby Consulting Providers: Chandan Mayo; Ld Chacon Discharge Orders/Prescriptions Prescriptions: New sennosides-docusate sodium [Stimulant Laxative Plus] 8.6-50 mg Tablet 2 tab PO BID PRN PRN (Reason: Constipation) Qty: 0 0RF Prenatabs FA 29-1 mg Tablet 1 tab PO DAILY@1200 30 Days Qty: 30 3RF amoxicillin-pot clavulanate 875-125 mg tablet 1 tab PO BID 7 Days Qty: 14 0RF Referrals / Follow Up: Chandan Mayo MD [Med Staff - Active Staff] - Within 2 Weeks Heather Ruby DO [Primary Care Provider] - Within 2 Weeks (As scheduled) Ld Chacon DO [Med Staff - Active Staff] - Within 1 Month Disposition Disposition (needs filled in before D/C Order can be placed): Home, Self Care 09/26/24 1123 Carlin Negron MD CC: Dr. Chandan Mayo MD; Dr. Heather Ruyb DO; Ld Chacon DO Signed Normal [facility] Eosinophil percentageOrdered By: Radha Romano on 09-26-2024 Eosinophils/100 WBC (Bld) 1.0 % 0-5 [facility] Erythrocyte distribution wid th (RBC) [Ratio]Ordered By: Rosalina on 09-26-2024 Erythrocyte distribution width (RBC) [Entitic vol] 45.0 fL High 35.1-43.9 [facility] Erythrocyte distribution wid th ratioOrdered By: Rosalina on 09-26-2024 Erythrocyte distribution width (RBC) [Ratio] 13.1 % 11.6-14.6 [facility] Erythrocyte distribution wid th standard deviationOrdered By: Radha Rosalina on 09-26-2024 Erythrocyte distribution width (RBC) [Ratio] 45.0 fl High 35.1-43.9 [facility] Estimation of creatinine clarice aranceOrdered By: Radha Romano on 09-26-2024 Estimated Creatinine Clearance Calc 136.89 ml/min 50-250 [facility] GFR/1.73 sq M.predicted nneka g non-blacks MDRD (S/P/Bld) [Vol rate/Area]Ordered By: Radha Romano on 09-26-2024 Estimated GFR (MDRD) Non-Af Amer 123 >60 [facility] Comment on above: mL/min/1.73m2 CKD-EP I Creatinine Equation (2020) Glomerular filtration rate ( GFR) estimation/1.73 sq m using serum, plasma, or whole bOrdered By: Radha Rosalina on 09-26-2024 GFR/1.73 sq M.predicted among non-blacks MDRD (S/P/Bld) [Vol rate/Area] 123 mL/min/{1.73_m2} >60 [facility] Comment on above: mL/min/1.73m2 CKD-EP I Creatinine Equation (2020) Hematocrit Auto (Bld) [Volum e fraction]Ordered By: Radha Romano on 09-26-2024 Hematocrit (Bld) [Volume fraction] 33.9 % Low 37-47 [facility] Hemoglobin measurementOrdere d By: Radha Romano on 09-26-2024 Hemoglobin (Bld) [Mass/Vol] 11.4 g/dL Low 12.0-15.0 [facility] Immature granulocytes/100 WB C Auto (Bld)Ordered By: Radha Rosalina on 09-26-2024 Immature granulocytes/100 WBC (Bld) 0.800 % 0.0-0.9 [facility] Comment on above: IG% - Immature Granu locytes (promyelocytes, myelocytes and metamyelocytes) > 1% indicates that a LEFT SHIFT is Present. Laboratory - Chemistry and C hemistry - challengeOrdered By: Radha Romano on 09-26-2024 AST [Catalytic activity/Vol] 51 U/L High <32 [facility] Lipaseon 09-26-2024 Lipase [Catalytic activity/Vol] 1358 U/L High 13-75 [facility] Comment on above: Result Comment: Plea se note: LIPASE revised reference range effective 22. New Lipase methodology. Expected to produce lower values than the previous assay method. NEW Reference Range: 13 - 75 U/L Performed By: #### L 500.2500, L100.0100, L501.2450, L500.3400 #### [facility] [address] [place], [address] Lipase measurementOrdered By : [facility] on 09-26-2024 Lipase [Catalytic activity/Vol] 1358 U/L High 13-75 [facility] Comment on above: Please note:LIPASE r evised reference range effective 22. New Lipase methodology. Expected to produce lower values than the previous assay method. NEW Reference Range: 13 - 75 U/L Liver Profileon 09-26-2024 Albumin [Mass/Vol] 3.0 g/dL Low 3.5-5.0 [facility] Comment on above: Performed By: #### L 100.0100, L500.4050 #### [facility] [address] [place], [address] ALK PHOS 130 U/L High 35-104 [facility] Comment on above: Performed By: #### L 100.0100, L500.4050 #### [facility] [address] [place], [address] ALT [Catalytic activity/Vol] 70 U/L High <=34 [facility] Comment on above: Performed By: #### L 100.0100, L500.4050 #### [facility] [address] [place], [address] AST [Catalytic activity/Vol] 51 U/L High <=31 [facility] Comment on above: Performed By: #### L 100.0100, L500.4050 #### [facility] [address] [place], [address] Bilirubin [Mass/Vol] 0.99 mg/dL Normal 0.00-1.30 [facility] Comment on above: Performed By: #### L 100.0100, L500.4050 #### [facility] [address] [place], [address] Bilirubin.direct [Mass/Vol] 0.66 mg/dL High 0.00-0.30 [facility] Comment on above: Performed By: #### L 100.0100, L500.4050 #### [facility] [address] [place], [address] Globulin (S) [Mass/Vol] 2.9 g/dL Normal 2.2-4.2 [facility] Comment on above: Performed By: #### L 100.0100, L500.4050 #### [facility] [address] [place], [address] T PROT 5.9 g/dL Normal 5.9-8.4 [facility] Comment on above: Performed By: #### L 100.0100, L500.4050 #### [facility] [address] [place], [address] Lymphocytes Auto (Unsp spec) [#/Vol]Ordered By: White on 09-26-2024 Lymphocytes (Bld) [#/Vol] 2.03 10*3/uL 0.83-4.51 [facility] Lymphocytes/100 WBC Auto (Un sp spec)Ordered By: White on 09-26-2024 Lymphocytes/100 WBC (Bld) 22.4 % 19-41 [facility] MCV (mean corpuscular volume ) determinationOrdered By: White on 09-26-2024 MCV (RBC) [Entitic vol] 93.4 fL 81-99 [facility] Mean corpuscular hemoglobin (MCH) determinationOrdered By: White on 09-26-2024 MCH (RBC) [Entitic mass] 31.4 pg 27.0-32.0 [facility] Mean corpuscular hemoglobin concentration (MCHC) determinationOrdered By: White on 09-26-2024 MCHC (RBC) [Mass/Vol] 33.6 g/dL 32-36 [facility] Mean platelet volume determi nationOrdered By: White on 09-26-2024 Platelet mean volume (Bld) [Entitic vol] 10.5 fL 6.2-12.0 [facility] Monocyte percentageOrdered B y: White on 09-26-2024 Monocytes/100 WBC (Bld) 5.1 % 0-10 [facility] Neutrophil percentageOrdered By: White on 09-26-2024 Neutrophils/100 WBC (Bld) 70.3 % High 47-70 [facility] Nucleated red blood cell per centageOrdered By: White on 09-26-2024 Nucleated RBC/100 WBC (Bld) [Ratio] 0 % 0-5 [facility] Platelet countOrdered By: Fanny pablo Rosalina on 09-26-2024 Platelets (Bld) [#/Vol] 195 10*3/uL 150-450 [facility] Potassium (Unsp spec) [Mass/ Vol]Ordered By: White on 09-26-2024 Potassium [Moles/Vol] 3.9 mmol/L 3.3-5.1 [facility] Comment on above: Hemolysis present, R esults could be affected. Potassium measurement (mass/ volume)Ordered By: Radha Romano on 09-26-2024 Potassium (Unsp spec) [Mass/Vol] 3.9 mmol/L 3.3-5.1 [facility] Comment on above: Hemolysis present, R esults could be affected. RBC Auto (Bld) [#/Vol]Ordere d By: Radha Romano on 09-26-2024 RBC (Bld) [#/Vol] 3.63 10*6/uL Low 4.2-5.4 [facility] Serum creatinine measurement (mass/volume)Ordered By: Radha Romano on 09-26-2024 Creatinine [Mass/Vol] 0.70 mg/dL 0.70-1.20 [facility] Serum globulin measurementOr dered By: aRdha Romano 09-26-2024 Globulin (S) [Mass/Vol] 2.9 g/dL 2.2-4.2 [facility] Serum glucose measurement (m ass/volume)Ordered By: Radha Romano 09-26-2024 Glucose [Mass/Vol] 77 mg/dL 70-99 [facility] Serum or plasma alanine allan otransferase (ALT) measurementOrdered By: Radha Romano 09-26-2024 ALT [Catalytic activity/Vol] 70 U/L High <35 [facility] Serum or plasma albumin jeimy urement (mass/volume)Ordered By: Radha Romano 09-26-2024 Albumin [Mass/Vol] 3.0 g/dL Low 3.5-5.0 [facility] Serum or plasma alkaline chaka sphatase measurementOrdered By: Radha Romano 09-26-2024 ALP [Catalytic activity/Vol] 130 U/L High 35-104 [facility] Serum or plasma calcium jeimy urement (mass/volume)Ordered By: Radha Romano 09-26-2024 Calcium [Mass/Vol] 8.1 mg/dL 7.6-11.0 [facility] Serum or plasma urea nitroge n measurement (mass/volume)Ordered By: Radha Romano 09-26-2024 Urea nitrogen [Mass/Vol] 5 mg/dL 4-19 [facility] Sodium levelOrdered By: Autu mn White on 09-26-2024 Sodium [Moles/Vol] 139 mmol/L 133-145 [facility] Total proteinOrdered By: Aut umn White on 09-26-2024 Protein [Mass/Vol] 5.9 g/dL 5.9-8.4 [facility] White blood cell (WBC) count Ordered By: Radha White on 09-26-2024 WBC (Bld) [#/Vol] 9.1 10*3/uL 4.4-11.0 [facility] AMYLASEon 09-25-2024 Amylase [Catalytic activity/Vol] 37 U/L Normal 25 - 115 [facility]; [facility] Work Phone: Comment on above: Performed By: #### 2 [id number] #### [facility],[address] [place] [address] Absolute neutrophil countOrd ered By: Florentin Zamudio on 09-25-2024 Neutrophils (Bld) [#/Vol] 8.0 10*3/uL High 2.0-7.7 [facility] Anion gap in Serum or Plasma Ordered By: Florentin Zamudio on 09-25-2024 Anion gap [Moles/Vol] 10 mmol/L 5-15 [facility] BUN/creatinine ratioOrdered By: Florentin Zamudio on 09-25-2024 Urea nitrogen/Creatinine [Mass ratio] 6.2 mg/mg Low 10-20 [facility] Basic Metabolic Profile (BMP )on 09-25-2024 BUN/CRE 6.2 RATIO Low 10-20 [facility] Comment on above: Performed By: #### L 100.0100, L500.4050 #### [facility] [address] [place], [address] Calcium [Mass/Vol] 9.0 mg/dL Normal 7.6-11.0 [facility] Comment on above: Performed By: #### L 100.0100, L500.4050 #### [facility] [address] [place], [address] Chloride [Moles/Vol] 104 mmol/L Normal 98-108 [facility] Comment on above: Performed By: #### L 100.0100, L500.4050 #### [facility] [address] [place], [address] CO2 [Moles/Vol] 22.6 mmol/L Normal 21.0-32.0 [facility] Comment on above: Performed By: #### L 100.0100, L500.4050 #### [facility] [address] [place], [address] Creatinine [Mass/Vol] 0.70 mg/dL Normal 0.70-1.20 [facility] Comment on above: Performed By: #### L 100.0100, L500.4050 #### [facility] [address] [place], [address] GAP 10 Normal 5-15 [facility] Comment on above: Performed By: #### L 100.0100, L500.4050 #### [facility] [address] [place], [address] GFR/1.73 sq M.predicted among non-blacks MDRD (S/P/Bld) [Vol rate/Area] 123 mL/min/{1.73_m2} Normal >60 [facility] Comment on above: Result Comment: mL/m in/1.73m2 CKD-EPI Creatinine Equation (2020) Performed By: #### L 100.0100, L500.4050 #### [facility] [address] [place], [address] Glucose [Mass/Vol] 108 mg/dL High 70-99 [facility] Comment on above: Performed By: #### L 100.0100, L500.4050 #### [facility] [address] [place], [address] Potassium [Moles/Vol] 3.6 mmol/L Normal 3.3-5.1 [facility] Comment on above: Performed By: #### L 100.0100, L500.4050 #### [facility] [address] [place], [address] Sodium [Moles/Vol] 137 mmol/L Normal 133-145 [facility] Comment on above: Performed By: #### L 100.0100, L500.4050 #### [facility] [address] [place], [address] Urea nitrogen [Mass/Vol] 4 mg/dL Normal 4-19 [facility] Comment on above: Performed By: #### L 100.0100, L500.4050 #### [facility] [address] [place], [address] Basophil percentageOrdered B y: Florentin Zamudio on 09-25-2024 Basophils/100 WBC (Bld) 0.4 % 0-1 [facility] Bilirubin directOrdered By: Florentinsylvia ReedKaren on 09-25-2024 Bilirubin.direct [Mass/Vol] 3.02 mg/dL High 0.00-0.30 [facility] Bilirubin, totalOrdered By: Florentin ninoKaren on 09-25-2024 Bilirubin [Mass/Vol] 4.12 mg/dL High 0.00-1.30 [facility] CBC + DIFFon 09-25-2024 Baso # 0.02 x10EE3/UL Normal 0.00 - 0.10 [facility] Comment on above: Performed By: #### 2 53661 #### [facility],[address] [facility] [address] Basophils/100 WBC (Bld) 0.2 % Normal 0.0 - 2.0 [facility], [employer] [facility]. Work Phone: Comment on above: Performed By: #### 2 46243 #### [facility],[address] [place] [address] CBC + DIFF Normal [facility] Comment on above: Result Comment: CBC- COMPLETE BLOOD COUNT Performed By: #### 2 77193 #### [address] [address] EO # 0.06 x10EE3/UL Normal 0.00 - 0.50 [facility] Comment on above: Performed By: #### 2 [address] #### [place] [address] Eosinophils/100 WBC (Bld) 0.6 % Normal 0.0 - 7.0 [facility]; [facility] Work Phone: Comment on above: Performed By: #### 2 19615 #### [place] [address] Erythrocyte distribution width (RBC) [Ratio] 12.7 % Normal 12.0 - 15.6 [facility]; [place] [employer] [facility] Work Phone: Comment on above: Performed By: #### 2 54469 #### [place] [address] Hematocrit (Bld) [Volume fraction] 32.8 % Low 34.0 - 46.0 [facility].; [facility] Work Phone: Comment on above: Performed By: #### 2 69404 #### [place] [id number] Hemoglobin (Bld) [Mass/Vol] 11.4 g/dL Low 12.0 - 16.0 [facility]; [facility] Work Phone: Comment on above: Performed By: #### 2 43440 #### [place] [id number] Lymph # 1.71 x10EE3/UL Normal 0.80 - 2.80 [facility] Comment on above: Performed By: #### 2 90960 #### [place] [id number] Lymphocytes/100 WBC (Bld) 17.1 % Low 20.0 - 45.0 [facility]; [facility] Work Phone: Comment on above: Performed By: #### 2 78397 #### [place] [id number] MANUAL DIFF N/A Normal [facility]; [facility] Work Phone: Comment on above: Performed By: #### 2 45201 #### [place] [address] MCH (RBC) [Entitic mass] 32 pg Normal 27 - 33 [facility]; [facility] Work Phone: Comment on above: Performed By: #### 2 98162 #### [place] [id number] MCHC 35 X10 3 Normal 32 - 36 [facility] Comment on above: Performed By: #### 2 17928 #### [address] [address] MCV (RBC) [Entitic vol] 92 fL Normal 80 - 99 [facility]; [facility] Work Phone: Comment on above: Performed By: #### 2 41653 #### [address] [address] Mathews # 0.65 x10EE3/UL Normal 0.20 - 1.00 [facility] Comment on above: Performed By: #### 2 68699 #### [place] [id number] MONOS % 6.5 % Normal 0.0 - 10.0 [facility] Comment on above: Performed By: #### 2 52115 #### [address] [address] Morphology Cy (Bld) [Interp] N/A Normal [facility]; [facility] Work Phone: Comment on above: Performed By: #### 2 07776 #### [address] [address] Neut # 7.54 x10EE3/UL High 1.50 - 7.10 [facility] Comment on above: Performed By: #### 2 97776 #### [address] [address] Neutrophils/100 WBC (Bld) 75.5 % Normal 46.0 - 76.0 [facility]; [facility] Work Phone: Comment on above: Performed By: #### 2 27817 #### [address] [address] PLATELET 184 x10EE3/UL Normal 150 - 450 [facility] Comment on above: Performed By: #### 2 15387 #### [address] [address] Platelet mean volume (Bld) [Entitic vol] 8.4 fL Normal 6.6 - 10.5 [facility]; [facility] Work Phone: Comment on above: Result Comment: AUTO MATED DIFFERENTIAL Performed By: #### 2 79869 #### [address] [address] RBC 3.55 x 10EE6/UL Low 4.10 - 5.30 [facility] Comment on above: Performed By: #### 2 32024 #### [address] [place] [address] WBC 10.0 x 10EE3/UL Normal 4.5 - 10.8 [facility] Comment on above: Performed By: #### 2 02316 #### [facility],[address] [place] [address] CBC W/Diff, Automatedon 09-08 Absolute Lymph 1.62 X10 3/uL Normal 0.83-4.51 [facility] Comment on above: Performed By: #### L 100.0100, L500.4050 #### [facility] [address] [place], [address] Absolute Neut 8.0 X10 3/uL High 2.0-7.7 [facility] Comment on above: Performed By: #### L 100.0100, L500.4050 #### [facility] [address] [place], [address] Basophils/100 WBC (Bld) 0.4 % Normal 0-1 [facility] Comment on above: Performed By: #### L 100.0100, L500.4050 #### [facility] [address] [place], [address] Eosinophils/100 WBC (Bld) 0.4 % Normal 0-5 [facility] Comment on above: Performed By: #### L 100.0100, L500.4050 #### [facility] [address] [place], [address] Erythrocyte distribution width (RBC) [Ratio] 13.0 % Normal 11.6-14.6 [facility] Comment on above: Performed By: #### L 100.0100, L500.4050 #### [facility] [address] [place], [address] Hematocrit (Bld) [Volume fraction] 34.0 % Low 37-47 [facility] Comment on above: Performed By: #### L 100.0100, L500.4050 #### [facility] [address] [place], [address] Hemoglobin (Bld) [Mass/Vol] 11.7 g/dL Low 12.0-15.0 [facility] Comment on above: Performed By: #### L 100.0100, L500.4050 #### [facility] [address] [place], [address] IG% 0.900 Normal 0.0-0.9 [facility] Comment on above: Result Comment: IG% - Immature Granulocytes (promyelocytes, myelocytes and metamyelocytes) > 1% indicates that a LEFT SHIFT is Present. Performed By: #### L 100.0100, L500.4050 #### [facility] [address] [place], [address] Lymphocytes/100 WBC (Bld) 15.8 % Low 19-41 [facility] Comment on above: Performed By: #### L 100.0100, L500.4050 #### [facility] [address] [place], [address] MCH (RBC) [Entitic mass] 31.2 pg Normal 27.0-32.0 [facility] Comment on above: Performed By: #### L 100.0100, L500.4050 #### [facility] [address] [place], [address] MCHC (RBC) [Mass/Vol] 34.4 g/dL Normal 32-36 [facility] Comment on above: Performed By: #### L 100.0100, L500.4050 #### [facility] [address] [place], [address] MCV (RBC) [Entitic vol] 90.7 fL Normal 81-99 [facility] Comment on above: Performed By: #### L 100.0100, L500.4050 #### [facility] [address] [place], [address] Monocytes/100 WBC (Bld) 4.9 % Normal 0-10 [facility] Comment on above: Performed By: #### L 100.0100, L500.4050 #### [facility] [address] [place], [address] Neutrophils/100 WBC (Bld) 77.6 % High 47-70 [facility] Comment on above: Performed By: #### L 100.0100, L500.4050 #### [facility] [address] [place], [address] Nucleated RBC (Bld) [#/Vol] 0 10*3/uL Normal 0-5 [facility] Comment on above: Performed By: #### L 100.0100, L500.4050 #### [facility] [address] [place], [address] Platelet mean volume (Bld) [Entitic vol] 10.4 fL Normal 6.2-12.0 [facility] Comment on above: Performed By: #### L 100.0100, L500.4050 #### [facility] [address] [place], [address] Platelets (Bld) [#/Vol] 177 10*3/uL Normal 150-450 [facility] Comment on above: Performed By: #### L 100.0100, L500.4050 #### [facility] [address] [place], [address] RBC (Bld) [#/Vol] 3.75 10*6/uL Low 4.2-5.4 [facility] Comment on above: Performed By: #### L 100.0100, L500.4050 #### [facility] [address] [place], [address] RDW SD 42.6 fl Normal 35.1-43.9 [facility] Comment on above: Performed By: #### L 100.0100, L500.4050 #### [facility] [address] [place], [address] WBC (Bld) [#/Vol] 10.2 10*3/uL Normal 4.4-11.0 [facility] Comment on above: Performed By: #### L 100.0100, L500.4050 #### [facility] [address] [place], [address] CMP with eGFRon 09-25-2024 AGE 24 years Normal [facility] Comment on above: Performed By: #### 2 55711 #### [facility],[address] [place] [address] Albumin [Mass/Vol] 2.3 g/dL Low 3.4 - 5.0 [facility], [facility].; [facility]. Work Phone: Comment on above: Performed By: #### 2 27066 #### [facility],[address] [place] [address] Albumin/Globulin [Mass ratio] 0.7 {ratio} Low 0.9 - 1.6 [facility] Comment on above: Performed By: #### 2 97082 #### [facility],[address] [place] [address] ALK PHOS 133 U/L High 46 - 116 [facility] [facility] Comment on above: Performed By: #### 2 [id number] #### [facility],[address] [place] [address]65 ALT [Catalytic activity/Vol] 97 U/L High 16 - 63 [facility].; [facility]. Work Phone: Comment on above: Performed By: #### 2 94514 #### [facility],[address] [place] [address]9432 Anion gap [Moles/Vol] 12 mmol/L Normal 10 - 20 [facility], [facility].; [facility], [facility]. Work Phone: Comment on above: Performed By: #### 2 55663 #### [facility],[address] [place] [address] 60342 AST [Catalytic activity/Vol] 69 U/L High 13 - 39 [facility], [employer]. Work Phone: Comment on above: Performed By: #### 2 86851 #### [facility],[address] [place] [address]891 B/C RATIO 13 ratio Normal 0 - 30 [facility] Comment on above: Performed By: #### 2 16780 #### [address] [address] Bilirubin [Mass/Vol] 4.1 mg/dL High 0.2 - 1.0 [facility], [facility].; [facility] Work Phone: Comment on above: Performed By: #### 2 82960 #### [facility],[address] [place] [address]36 Calcium [Mass/Vol] 8.6 mg/dL Normal 8.5 - 10.1 [facility], [facility].; [facility], [facility]. Work Phone: Comment on above: Performed By: #### 2 26981 #### [facility],[address] [place] [address]38 Chloride [Moles/Vol] 106 mmol/L Normal 98 - 107 [facility].; [facility], [facility]. Work Phone: Comment on above: Performed By: #### 2 18312 #### [facility],[address] [place] [address]372 CMP with eGFR Normal [facility] Comment on above: Result Comment: COMP REHENSIVE METABOLIC PANEL Performed By: #### 2 99896 #### [facility],[address] [place] [address] 11749 CO2 [Moles/Vol] 26.0 mmol/L Normal 21.0 - 32.0 [facility], [facility].; [facility], [employer] Work Phone: Comment on above: Performed By: #### 2 83498 #### [facility],[address] [place], [place] [id number] Creatinine [Mass/Vol] 0.55 mg/dL Normal 0.55 - 1.02 [facility], [facility].; [facility], [employer]. Work Phone: Comment on above: Performed By: #### 2 80505 #### [address] [address] GFR/1.73 sq M.predicted among non-blacks MDRD (S/P/Bld) [Vol rate/Area] mL/min/{1.73_m2} Normal 60 - 999 [facility] Comment on above: Performed By: #### 2 46348 #### [address] [address] Result Comment: ACCO RDING TO THE NATIONAL KIDNEY DISEASE EDUCATION PROGRAM(NKDE), A NORMAL eGFR IS A VALUE GREATER THAN OR EQUAL TO 60 ML/MIN/1.73 SQ METERS. CHRONIC KIDNEY DISEASE: <60mL/MIN/1.73 SQ METERS KIDNEY FAILURE: <15mL/MIN/1.73 SQ METERS THIS TEST SHOULD ONLY BE USED FOR PATIENTS 18 YEARS OF AGE AND OLDER. Globulin (S) [Mass/Vol] 3.5 g/dL Normal 1.5 - 3.8 [facility], [employer].; [facility], [employer]. Work Phone: Comment on above: Performed By: #### 2 49666 #### [facility],[address] [place] [address]83 Glucose [Mass/Vol] 76 mg/dL Normal 74 - 106 [facility], [employer]. Work Phone: Comment on above: Performed By: #### 2 67353 #### [address] [address] Potassium [Moles/Vol] 3.8 mmol/L Normal 3.5 - 5.1 [facility] [employer] Work Phone: Comment on above: Performed By: #### 2 32773 #### [address] [address] Protein [Mass/Vol] 5.8 g/dL Low 6.4 - 8.2 [facility], [facility].; [place] [email or web address] Work Phone: Comment on above: Performed By: #### 2 74296 #### [address] [address] Sodium [Moles/Vol] 140 mmol/L Normal 136 - 145 [facility], [facility].; [place] [email or web address] Work Phone: Comment on above: Performed By: #### 2 52890 #### [address] [address] Urea nitrogen [Mass/Vol] 7 mg/dL Normal 7 - 18 [facility], [facility].; [facility] [employer] Work Phone: Comment on above: Performed By: #### 2 71282 #### [address] [address] AGE 24 years Normal [facility] Comment on above: Performed By: #### 2 01889 #### [address] [address] Albumin [Mass/Vol] 2.7 g/dL Low 3.4 - 5.0 [facility], [facility].; [facility], [employer]. Work Phone: Comment on above: Performed By: #### 2 81814 #### [facility],[address] [place] [address]76 Albumin/Globulin [Mass ratio] 0.7 {ratio} Low 0.9 - 1.6 [facility] Comment on above: Performed By: #### 2 22346 #### [facility],[address] [place] [address]93 ALK PHOS 156 U/L High 46 - 116 [facility] Comment on above: Performed By: #### 2 79634 #### [address] [address] ALT [Catalytic activity/Vol] 116 U/L High 16 - 63 [facility].; [facility]. Work Phone: Comment on above: Performed By: #### 2 99206 #### [address] [address] Anion gap [Moles/Vol] 14 mmol/L Normal 10 - 20 [facility].; [facility]. Work Phone: Comment on above: Performed By: #### 2 07026 #### [address] [address] AST [Catalytic activity/Vol] 82 U/L High 13 - 39 [facility].; [facility]. Work Phone: Comment on above: Performed By: #### 2 29153 #### [address] [address] B/C RATIO 11 ratio Normal 0 - 30 [facility] Comment on above: Performed By: #### 2 48944 #### [address] [address] Bilirubin [Mass/Vol] 4.2 mg/dL High 0.2 - 1.0 [facility].; [facility]. Work Phone: Comment on above: Performed By: #### 2 40827 #### [address] [address] Calcium [Mass/Vol] 8.8 mg/dL Normal 8.5 - 10.1 [facility].; [facility], [employer]. Work Phone: Comment on above: Performed By: #### 2 48203 #### [address] [address] Chloride [Moles/Vol] 101 mmol/L Normal 98 - 107 [facility].; [facility], [employer]. Work Phone: Comment on above: Performed By: #### 2 61549 #### [address] [address] CMP with eGFR Normal [facility] Comment on above: Result Comment: COMP REHENSIVE METABOLIC PANEL Performed By: #### 2 46648 #### [address] [address] CO2 [Moles/Vol] 24.2 mmol/L Normal 21.0 - 32.0 [facility], [facility].; [facility], [employer]. Work Phone: Comment on above: Performed By: #### 2 77748 #### [address] [address] Creatinine [Mass/Vol] 0.64 mg/dL Normal 0.55 - 1.02 [facility].; [facility], [employer]. Work Phone: Comment on above: Performed By: #### 2 86282 #### [address] [address] GFR/1.73 sq M.predicted among non-blacks MDRD (S/P/Bld) [Vol rate/Area] mL/min/{1.73_m2} Normal 60 - 999 [facility] Comment on above: Performed By: #### 2 71967 #### [address] [address] Result Comment: ACCO RDING TO THE NATIONAL KIDNEY DISEASE EDUCATION PROGRAM(NKDE), A NORMAL eGFR IS A VALUE GREATER THAN OR EQUAL TO 60 ML/MIN/1.73 SQ METERS. CHRONIC KIDNEY DISEASE: <60mL/MIN/1.73 SQ METERS KIDNEY FAILURE: <15mL/MIN/1.73 SQ METERS THIS TEST SHOULD ONLY BE USED FOR PATIENTS 18 YEARS OF AGE AND OLDER. Globulin (S) [Mass/Vol] 3.8 g/dL Normal 1.5 - 3.8 [facility]; [facility] Work Phone: Comment on above: Performed By: #### 2 97671 #### [address] [address] Glucose [Mass/Vol] 111 mg/dL High 74 - 106 [facility]; [facility] Work Phone: Comment on above: Performed By: #### 2 35899 #### [address] [address] Potassium [Moles/Vol] 3.4 mmol/L Low 3.5 - 5.1 [facility]; [facility] Work Phone: Comment on above: Performed By: #### 2 24341 #### [address] [address] Protein [Mass/Vol] 6.5 g/dL Normal 6.4 - 8.2 [facility]; [facility] Work Phone: Comment on above: Performed By: #### 2 81831 #### [address] [address] Sodium [Moles/Vol] 136 mmol/L Normal 136 - 145 [facility]; [facility]. Work Phone: Comment on above: Performed By: #### 2 77180 #### [facility],[address] [place] [address] Carbon dioxide, total [Moles /volume] in Central venous bloodOrdered By: Florentin Zamudio on 09-25-2024 CO2 [Moles/Vol] 22.6 mmol/L 21.0-32.0 [facility] Chloride assayOrdered By: Roge Zamudio on 09-25-2024 Chloride [Moles/Vol] 104 mmol/L 98-108 [facility] ERCP Biliary/Pancreason 09-08 ERCP Biliary/Pancreas [facility] Imaging Services [address] [place], [place] [id number] ERCP Biliary/Pancreas MR#: [id number] Acct: [id number] Name: LUCY CROWLEY V Rep #: [id number] : 2000 F 24 From: Tony Cruz MD PCP: Dr. Heather Ruby DO Status: ADM IN Study: ERCP Biliary/Pancreas Date of Exam: 09/25/24 Exam# [id number] Ordering Dr: Ld Chacon DO EXAM: ERCP biliary/pancreas CLINICAL HISTORY: ERCP TECHNIQUE: Fluoroscopy for ERCP with 9 spot images FINDINGS: Fluoroscopy time 7.0 seconds Total dose 2.08 mGy Placement of a pancreatic duct stent. Cannulation of the common bile duct. Contrast is seen within a dilated appearing common bile duct. Contrast fills an intrahepatic duct which appears nondilated. A gallbladder is not definitely seen. Placement of a CBD stent. RAD/ERCP Biliary/Pancreas IMPRESSION: ERCP with placement of pancreatic and CBD stents. Reading Location: [id number] CC: Dr. Heather Ruby DO; Ld Chacon DO Lens Finisher: Signed Normal [facility] ERCP Reporton 09-25-2024 ERCP Report [facility] Medical Records Department [address] [place] [address] ERCP Report MR#: [id number] Acct: [id number] Name: LUCY CROWLEY V Rep #: [id number] : 2000 24 From: Ld Chacon DO PCP: Dr. Heather Ruby DO Status:ADM IN Patient Name: Lucy Crowley Procedure Date: 09/25/2024 5:02 PM Date of : 2000 Age: 24 Procedure: ERCP Indications: Common bile duct stone(s), Jaundice, Elevated liver enzymes Providers: Ld Chacon DO Medicines: General Anesthesia Patient Profile: This is a 24 year old female. Refer to note in patient chart for documentation of history and physical. Patient has symptoms of acute right upper quadrant abdominal pain and acute jaundice. This patient has no history of previous ERCP. This patient has no history of surgical alteration of the upper digestive tract anatomy. Complications: No immediate complications. Procedure: Pre-Anesthesia Assessment: - Prior to the procedure, a History and Physical was performed, and patient medications and allergies were reviewed. The patient is competent. The risks and benefits of the procedure and the sedation options and risks were discussed with the patient. All questions were answered and informed consent was obtained. Patient identification and proposed procedure were verified by the physician in the pre-procedure area. Mental Status Examination: alert and oriented. Airway Examination: normal oropharyngeal airway and neck mobility. Respiratory Examination: clear to auscultation. CV Examination: normal. Prophylactic Antibiotics: The patient does not require prophylactic antibiotics. Prior Anticoagulants: The patient has taken no anticoagulant or antiplatelet agents except for NSAID medication. ASA Grade Assessment: II - A patient with mild systemic disease. After reviewing the risks and benefits, the patient was deemed in satisfactory condition to undergo the procedure. The anesthesia plan was to use monitored anesthesia care (MAC). Immediately prior to administration of medications, the patient was re-assessed for adequacy to receive sedatives. The heart rate, respiratory rate, oxygen saturations, blood pressure, adequacy of pulmonary ventilation, and response to care were monitored throughout the procedure. The physical status of the patient was re-assessed after the procedure. After obtaining informed consent, the scope was passed under direct vision. Throughout the procedure, the patient's blood pressure, pulse, and oxygen saturations were monitored continuously. The Duodenoscope was introduced through the mouth, and advanced to the duodenum and used to inject contrast into the bile duct and ventral pancreatic duct. The ERCP was accomplished without difficulty. The patient tolerated the procedure well. Scope In: 5:18:14 PM Scope Out: 5:40:19 PM Total Procedure Duration Time 0 hours 22 minutes 5 seconds Findings: The cloth worker film was normal. The esophagus was successfully intubated under direct vision. The scope was advanced to a normal major papilla in the descending duodenum without detailed examination of the pharynx, larynx and associated structures, and upper GI tract. The upper GI tract was grossly normal. The ventral pancreatic duct was deeply cannulated with the short-nosed traction sphincterotome. Contrast was injected. I personally interpreted the bile duct and pancreatic duct images. There was brisk flow of contrast through the ducts. Image quality was excellent. Contrast extended to the entire biliary tree. The entire opacified area was normal. A long 0.025 inch Jagwire was passed into the ventral pancreatic duct. A 5 mm ventral pancreatic sphincterotomy was made with a traction (standard) sphincterotome using ERBE electrocautery. There was no post-sphincterotomy bleeding. To find object(s) the ventral pancreatic duct was swept with a 6 mm balloon starting at the pancreatic duct in the body of the pancreas. Nothing was found. One 5 Fr by 7 cm temporary stent was placed 5 cm into the ventral pancreatic duct. Bile flowed through the stent. The stent was in good position. A long 0.025 inch Jagwire was passed into the biliary tree. The short-nosed traction sphincterotome was passed over the guidewire and the bile duct was then deeply cannulated. Contrast was injected. Opacification of the entire opacified area and entire biliary tree was successful. The maximum diameter of the ducts was 10 mm. The lower third of the main bile duct contained three stones, the largest of which was 6 mm in diameter. The entire biliary tree was diffusely dilated, with a stone causing an obstruction. The largest diameter was 12 mm. A 5 mm biliary sphincterotomy was made with a traction (standard) sphincterotome using ERBE electrocautery. There was no post-sph (more content not included)... Normal [facility] Emergency Department Summary on 09-25-2024 Emergency Department Summary [facility] Medical Records Department [address] [place] [address] Emergency Department Summary 09/25/24 MR#: [id number] Acct: [id number] Name: LUCY CROWLEY V Rep #: [id number] : 2000 24 From: Florentin Zamudio DO PCP: Dr. Heather Ruby DO Status:REG ER Location: ED HPI History of Present Illness Chief Complaint: Abd Pain Narrative Narrative: Chief complaint and HPI: Right upper quadrant with epigastric abdominal pain. 24-year-old female who is A1 who was induced on 09/26/2024 at 38.6 weeks and delivered via vaginal delivery who presents for right upper quadrant and epigastric pain from [facility]. She was a transfer. History taken by patient, medical record, Dr. Chacon. Patient states that she started having right upper quadrant/epigastric pain on Saturday. She went to [facility] on in which they induced her due to the concern of her gallbladder. She states the delivery went well without any complications for her the child. She has continued to have right upper quadrant/epigastric pain that radiates to the back. She endorses some nausea but denies vomiting. She denies any fever, chills, shortness of breath, chest pain, dysuria, diarrhea, constipation. Patient states that the ER was expecting her however none of the ER faculty knew that the patient was arriving. She did come with paperwork. She had a right upper quadrant ultrasound performed on 09/25/2024 that showed cholelithiasis. The common bile duct is dilated at 11 mm. Intraductal calculus is not demonstrated. She had mild transaminitis with a total bilirubin of 4.1. The faculty over there spoke with Dr. Chacon. Her lipase was 23. She had no leukocytosis. I spoke with Dr. Chacon personally on the phone, he states that the plan is medical admission with ERCP. Review of systems: See HPI Medications: As listed on the chart Allergies: As listed on the chart PFSH: Per chart Vital signs: As listed on the chart. Reviewed. Physical exam: Gen: A O x3, NAD Head: Normocephalic, atraumatic Eyes: Sclera icterus, PERRL, EOMI ENT: Moist mucous membranes Neck: Trachea midline, No JVD CV: RRR, no murmurs, no peripheral edema Resp: Lungs CTA BL, no w/r/c GI: Abd soft, non-distended, mildly tender to palpation diffusely, no rebound or rigidity : No CVA tenderness Musc: Full ROM, no deformity Skin: Warm, jaundice Neuro: Alert, oriented, grossly intact, sensation intact Psych: Cooperative, appropriate mood and affect PFSH PFSH Home Medications ???Medication ???Instructions ???Recorded ???Last Taken ???Type NK 09/25/24 Unknown History Allergy/AdvReac Type Severity Reaction Status Date / Time No Known Allergies Allergy Verified 09/25/24 14:07 Surgical History (Updated 09/25/24 @ 14:03 by Fiona Bustos) Hx of appendectomy Social History Smoking Status: Never smoker EXAM Physical Exam Const Vital Signs: 09/25/24 13:44 09/25/24 14:43 09/25/24 14:45 Temperature 96.8 F L 97.7 F L Temperature Source Temporal Oral Pulse Rate 86 94 94 Respiratory Rate 15 15 Blood Pressure 108/78 105/77 106/63 Blood Pressure Mean 88 86 77 Pulse Ox 100 96 97 Oxygen Delivery Method Room Air Room Air Room Air 09/25/24 15:00 Temperature 97.8 F Temperature Source Oral Pulse Rate 86 Respiratory Rate 15 Blood Pressure 94/61 Blood Pressure Mean 72 Pulse Ox 96 Oxygen Delivery Method Room Air MDM MDM MDM Narrative Medical decision making narrative: 24-year-old female who is A1 who was induced on 09/26/2024 at 38.6 weeks and delivered via vaginal delivery who presents for right upper quadrant and epigastric pain from [facility]. See HPI. Patient was induced secondary to her pain. She was found to have transaminitis with concern of choledocholithiasis, they spoke with Dr. Chacon with GI and patient was transferred to our hospital. The only issue was nobody in the emergency department was expecting her. I did speak to Dr. Chacon personally as well as reviewed her outlying facility labs and ultrasound. Plan is for admission with ERCP. NS bolus, morphine, Zofran ordered for pain. Will repeat labs before admission. Differential diagnosis includes but is not limited to choledocholithiasis, cholecystitis, cholangitis, pancreatitis, electrolyte abnormality. CBC without leukocytosis. Patient has anemia with hemoglobin of 11.7. She did just have a vaginal delivery. CMP without TIGIST but positive for transaminitis and hyperbilirubinemia. Total bilirubin is 4.12. Direct is 3.02. AST is 74. ALT is 95. Alk phosphatase is 154. Lipase unremarkable. Lactic acid unremarkable. Patient's pain is concerning for choledocholithiasis. Patient has no signs of cholangitis at this time however will cover (more content not included)... Normal [facility] Eosinophil percentageOrdered By: Florentin Zamudio on 09-25-2024 Eosinophils/100 WBC (Bld) 0.4 % 0-5 [facility] Erythrocyte distribution wid th (RBC) [Ratio]Ordered By: [facility] on 09-25-2024 Erythrocyte distribution width (RBC) [Entitic vol] 42.6 fL 35.1-43.9 [facility] Erythrocyte distribution wid th ratioOrdered By: [facility]atham[facility]leanaKaren on 09-25-2024 Erythrocyte distribution width (RBC) [Ratio] 13.0 % 11.6-14.6 [facility] GFR/1.73 sq M.predicted nneka g non-blacks MDRD (S/P/Bld) [Vol rate/Area]Ordered By: Florentinsylvia Zamudio on 09-25-2024 Estimated GFR (MDRD) Non-Af Amer 123 >60 [facility] Comment on above: mL/min/1.73m2 CKD-EP I Creatinine Equation (2020) H AND P Exam - Hospitaliston 09-25-2024 H&P Exam - Hospitalist [facility] Medical Records Department [address] [place] [address] H P Exam - Hospitalist 09/25/24 1614 MR#: [id number] Acct: [id number] Name: LUCY CROWLEY V Rep #: [id number] : 2000 24 From: Radha Romano MD PCP: Dr. Heather Ruby, DO Status:REG [facility] Location: [place] [address] HPI - General General Date of Admission: 09/25/24 Date of Service: 09/25/24 Chief Complaint: Epigastric pain. HPI Narrative The patient is a 24 y/o Worship F w/ PMHx: Biliary colic which from description has been ongoing for some time who presents to the [facility] ED on with history of being in her third trimester of with due date technically on 03 October however on Saturday she started having epigastric and right upper quadrant pain approximately 30 minutes following her meals with pain noted to be sharp stabbing and dull aching with associated nausea, emesis and diaphoresis however it seemed to subside but tended to also wax and wane with a reoccurrence event on at 3 AM in the morning with also at that time potential uterine cramps prompting outside facility ED evaluation at [facility]. Patient was admitted and delivered a healthy with no concerns per discussion with patient and spouse as well as review of facility records. The facility did speak with keg varnisher Dr. Chacon who recommended ERCP and was under the impression patient was being transferred to [facility] for treatment but secondary to cost and patient/spouse preference they ended up coming by private drive and presented to the ED. Patient notes that when her pain was at its worst was 9-10 out of 10 in severity. Currently she notes pain is improved and reporting 0 out of 10. Records from outside facility included most recently CMP with total bilirubin 4.2, AST/ALT 82/156, CBC with WBC 10.0, hemoglobin 11.4, platelet 184 with left shift, gallbladder ultrasound with evidence of cholelithiasis with numerous small stones layering in the gallbladder with mild intrahepatic ductal dilatation obtained on 09/24/2024 with follow-up repeat ultrasound with cholelithiasis with then common bile duct dilatation to 11 mm with intraductal calculus not demonstrated at that time but increasing concern. She denies any recent fevers or chills. Workup in the ED included T96.8 Temporal, heart rate 86, BP 108/78, respiratory rate 15, under percent on room air with most recent repeat vitals T97.9, heart rate 88, BP 92/69, respiratory rate 16, 95% on room air, CBC with WC 10.2, hemoglobin 0.7, platelets 177 with left shift, CMP with glucose 108, lactic acid less than 1, T. bili 4.12, D bili 3.02, AST/LT 74/25, alk phos 154, lipase 23. ED did discuss case with Dr. Chacon gastroenterology with plan for ERCP and also with Dr. Mayo general surgeon who requested medical admission with expected consult following ERCP per discussion with ED physician. [facility] Medical History (Updated 09/25/24 @ 16:[address] Radha Romano MD) Biliary colic Home Medications ???Medication ???Instructions ???Recorded ???Last Taken ???Type NK 09/25/24 Unknown History Allergy/AdvReac Type Severity Reaction Status Date / Time No Known Allergies Allergy Verified 09/25/24 14:07 Family History (Updated 09/25/24 @ 16:[address] Radha Romano MD) Mother No problems noted. Father No problems noted. Surgical History (Updated 09/25/24 @ 14:03 by Fiona Bustos) Hx of appendectomy Social History (Updated 09/25/24 @ 16:[address] Radha Romano MD) household members: spouse, children and other details: 2 older children at home, 1 miscarriage, 1 09/24/24. Smoking Status: Never smoker alcohol intake: never substance use type: does not use ROS ROS Narrative Admission Review of Systems: CONSTITUTIONAL: No weight loss, fever, chills, + weakness or fatigue. HEENT: + Mild jaundice/mild scleral icterus Eyes: No visual loss, blurred vision, double vision or yellow sclerae. Ears, Nose, Throat: No hearing loss, sneezing, congestion, runny nose or sore throat. SKIN: No rash or itching, lesions, wounds, + mild scleral icterus/jaundice evidence, occasional stage ecchymoses likely from recent lab draws. CARDIOVASCULAR: No chest pain, chest pressure or chest discomfort, palpitations, edema, orthopnea, syncopal events. RESPIRATORY: No shortness of breath, cough or sputum, wheezing, hemoptysis. GASTROINTESTINAL: + Decreased appetite, episode of nausea and emesis, abdominal pain. No diarrhea, abdominal pain, melena, BRBPR. GENITOURINARY: No dysuria, frequency, urgency or retention. NEUROLOGICAL: No headache, dizziness, syncope, paralysis, ataxia, numbness or tingling in the extremities, focal weakness, change in bowel or bladder control, seizure. MUSCULOSKELETAL: + muscle, back pain, joint pain or (more content not included)... Normal [facility] Hematocrit Auto (Bld) [Volum e fraction]Ordered By: Florentin Zamudio on 09-25-2024 Hematocrit (Bld) [Volume fraction] 34.0 % Low 37-47 [facility] Hemoglobin measurementOrdere d By: Florentin Zamudio on 09-25-2024 Hemoglobin (Bld) [Mass/Vol] 11.7 g/dL Low 12.0-15.0 [facility] Immature granulocytes/100 WB C Auto (Bld)Ordered By: Florentinsylvia Zamudio on 09-25-2024 Immature granulocytes/100 WBC (Bld) 0.900 % 0.0-0.9 [facility] Comment on above: IG% - Immature Granu locytes (promyelocytes, myelocytes and metamyelocytes) > 1% indicates that a LEFT SHIFT is Present. LIPASEon 09-25-2024 Lipase [Catalytic activity/Vol] 23.0 U/L Normal 15.0 - 78.0 [facility]; [employer] Work Phone: Comment on above: Result Comment: *PLE ASE NOTE THAT RANGES FOR LIPASE HAVE CHANGED OF 06/07/23 DUE TO AN ASSAY UPDATE BY THE ENGINE LATHE OPERATOR.THE NEW ASSAY RANGE IS 6-250 U/L, WITH A REFERENCE RANGE OF 16-77 U/L. Performed By: #### 2 [id number] #### [facility],[address] [place] [address] Laboratory - Chemistry and C hemistry - challengeOrdered By: Florentin Zamudio on 09-25-2024 AST [Catalytic activity/Vol] 74 U/L High <32 [facility] Laboratory - Chemistry and C hemistry - challengeon 09-25-2024 Albumin [Mass/Vol] 0.7 g/dL Abnormal 0.9 - 1.6 [employer] [facility]; [employer] Work Phone: ALP [Catalytic activity/Vol] 156 U/L Abnormal 46 - 116 U/L [employer]; [employer] Work Phone: ALP [Catalytic activity/Vol] 133 U/L Abnormal 46 - 116 U/L [facility]; [place] [employer] [facility] Work Phone: Comprehensive metabolic 2000 panel CMP with eGFR Normal [facility]; [place] [employer] [facility] Work Phone: GFR/1.73 sq M.predicted among blacks MDRD (S/P/Bld) [Vol rate/Area] mL/min/{1.73_m2} Normal 60 - 999 {ML/MINUTE} [facility]; [facility] Work Phone: GFR/1.73 sq M.predicted MDRD (S/P/Bld) [Vol rate/Area] mL/min/{1.73_m2} Normal 60 - 999 {ML/MINUTE} [facility]; [place] [employer] [facility] Work Phone: Urea nitrogen/Creatinine [Mass ratio] 11 {ratio} Normal 0 - 30 {ratio} [facility]; [place] [employer] Work Phone: Urea nitrogen/Creatinine [Mass ratio] 13 {ratio} Normal 0 - 30 {ratio} [facility].; [place] [employer]. Work Phone: Laboratory - Hematology and Cell countson 09-25-2024 Basophils (Bld) [#/Vol] 0.02 {3/UL} Normal 0.00 - 0.10 {3/UL} [facility]; [employer] Work Phone: CBC W Auto Differential panel (Bld) CBC + DIFF Normal [place] [employer]; [employer] Work Phone: Eosinophils (Bld) [#/Vol] 0.06 {3/UL} Normal 0.00 - 0.50 {3/UL} [facility] [employer]; [employer] Work Phone: Lymphocytes (Bld) [#/Vol] 1.71 {3/UL} Normal 0.80 - 2.80 {3/UL} [employer].; [employer]. Work Phone: MCHC (RBC) [Mass/Vol] 35 {X10_3} Normal 32 - 3 6 {X10_3} [employer].; [employer]. Work Phone: Monocytes (Bld) [#/Vol] 0.65 {3/UL} Normal 0.20 - 1.00 {3/UL} [employer].; [employer]. Work Phone: Monocytes/100 WBC (Bld) 6.5 % Normal 0.0 - 10.0 % [employer].; [employer]. Work Phone: Neutrophils (Bld) [#/Vol] 7.54 {3/UL} Abnormal 1.50 - 7.10 {3/UL} [employer].; [employer]. Work Phone: Platelets (Bld) [#/Vol] 184 {3/UL} Normal 150 - 450 {3/UL} [employer].; [employer]. Work Phone: RBC (Bld) [#/Vol] 3.55 {6/UL} Abnormal 4.10 - 5.3 0 {6/UL} [employer].; [employer]. Work Phone: WBC (Bld) [#/Vol] 10.0 {3/UL} Normal 4.5 - 10.8 {3/UL} [employer].; [employer]. Work Phone: Lactic Acidon 09-25-2024 Lactate [Moles/Vol] mmol/L Normal 0.0-2.0 [facility] Comment on above: Order Comment: Y Performed By: #### L 100.0100, L500.4050 #### [facility] [address] [place], [address] Lactic acid measurementOrder ed By: Florentin Zamudio on 09-25-2024 Lactate [Moles/Vol] mmol/L 0.0-2.0 [facility] Lipaseon 09-25-2024 Lipase [Catalytic activity/Vol] 23 U/L Normal 13-75 [facility] Comment on above: Result Comment: Nicholas sood note: LIPASE revised reference range effective 22. New Lipase methodology. Expected to produce lower values than the previous assay method. NEW Reference Range: 13 - 75 U/L Performed By: #### L 100.0100, L500.4050 #### [facility] [address] [place], [address] Lipase measurementOrdered By : Florentin Zamudio on 09-25-2024 Lipase [Catalytic activity/Vol] 23 U/L 13-75 [facility] Comment on above: Please note:LIPASE r evised reference range effective 22. New Lipase methodology. Expected to produce lower values than the previous assay method. NEW Reference Range: 13 - 75 U/L Liver Profileon 09-25-2024 Albumin [Mass/Vol] 3.4 g/dL Low 3.5-5.0 [facility] Comment on above: Performed By: #### L 100.0100, L500.4050 #### [facility] [address] [place], [address] ALK PHOS 154 U/L High 35-104 [facility] Comment on above: Performed By: #### L 100.0100, L500.4050 #### [facility] [address] [place], [address] ALT [Catalytic activity/Vol] 95 U/L High <=34 [facility] Comment on above: Performed By: #### L 100.0100, L500.4050 #### [facility] [address] [place], [address] AST [Catalytic activity/Vol] 74 U/L High <=31 [facility] Comment on above: Performed By: #### L 100.0100, L500.4050 #### [facility] [address] [place], [address] Bilirubin [Mass/Vol] 4.12 mg/dL High 0.00-1.30 [facility] Comment on above: Performed By: #### L 100.0100, L500.4050 #### [facility] [address] [place], [address] Bilirubin.direct [Mass/Vol] 3.02 mg/dL High 0.00-0.30 [facility] Comment on above: Performed By: #### L 100.0100, L500.4050 #### [facility] [address] [place], [address] Globulin (S) [Mass/Vol] 2.8 g/dL Normal 2.2-4.2 [facility] Comment on above: Performed By: #### L 100.0100, L500.4050 #### [facility] [address] [place], [address] T PROT 6.2 g/dL Normal 5.9-8.4 [facility] Comment on above: Performed By: #### L 100.0100, L500.4050 #### [facility] [address] [place], [address] Lymphocytes Auto (Unsp spec) [#/Vol]Ordered By: Florentin Zamudio on 09-25-2024 Lymphocytes (Bld) [#/Vol] 1.62 10*3/uL 0.83-4.51 [facility] Lymphocytes/100 WBC Auto (Un sp spec)Ordered By: Florentin Zamudio on 09-25-2024 Lymphocytes/100 WBC (Bld) 15.8 % Low 19-41 [facility] MCV (mean corpuscular volume ) determinationOrdered By: Florentin Zamudio on 09-25-2024 MCV (RBC) [Entitic vol] 90.7 fL 81-99 [facility] MR/CON.PCM.GIon 09-25-2024 MR/CON.PCM.GI [facility] Medical Records Department [address] [place] [address] Consultation - GI 09/25/24 1648 MR#: [id number] Acct: [id number] Name: LUCY CROWLEY V Rep #: [id number] : 2000 24 From: Ld Chacon DO PCP: Dr. Heather Ruby DO Status:[facility] Location: [place] [address] HPI Consult Data Date of Consult: 09/25/24 HPI Narrative Reason for Consultation: Choledocholithiasis HPI Narrative: LUCY CROWLEY, is a 24 F who presents 24-year-old female who is A1 who was induced on 09/26/2024 at 38.6 weeks and delivered via vaginal delivery who presents for right upper quadrant and epigastric pain from [facility]. She was a transfer. History taken by patient, medical record, Dr. Chacon. Patient states that she started having right upper quadrant/epigastric pain on Saturday. She went to the [facility] on in which they induced her due to the concern of her gallbladder. She states the delivery went well without any complications for her the child. She has continued to have right upper quadrant/epigastric pain that radiates to the back. She endorses some nausea but denies vomiting. She denies any fever, chills, shortness of breath, chest pain, dysuria, diarrhea, constipation. Patient states that the ER was expecting her however none of the ER faculty knew that the patient was arriving. She did come with paperwork. She had a right upper quadrant ultrasound performed on 09/25/2024 that showed cholelithiasis. The common bile duct is dilated at 11 mm. Intraductal calculus is not demonstrated. She had mild transaminitis with a total bilirubin of 4.1. [facility] Medical History Biliary colic Home Medications ???Medication ???Instructions ???Recorded ???Last Taken ???Type NK 09/25/24 Unknown History Allergy/AdvReac Type Severity Reaction Status Date / Time No Known Allergies Allergy Verified 09/25/24 14:07 Family History Mother No problems noted. Father No problems noted. Surgical History Hx of appendectomy Social History household members: spouse, children and other details: 2 older children at home, 1 miscarriage, 1 09/24/24. Smoking Status: Never smoker alcohol intake: never substance use type: does not use ROS Constitutional Constitutional: Denies fatigue, fever(s), poor appetite, weight gain or weight loss Gastrointestinal Gastrointestinal: Denies belching, bloating, change in bowel habits, change in stool character, chewing difficulty, coffee ground emesis, constipation, cramping, diarrhea, dyspepsia, dysphagia, early satiety, excessive flatus, fecal incontinence, heartburn, hematemesis, hematochezia, hemorrhoids, loose stools, melena, nausea, odynophagia, rectal bleeding, tenesmus, vomiting or weight changes Physical Exam Const alert, oriented x3, no apparent distress and healthy appearing General Appearance: cooperative GI normal to inspection, nondistended, normoactive bowel sounds, soft to palpation, non-tender and non- distended Percussion: normal to percussion Rectal Exam: deferred Lab / Micro Data 09/25/24 14:40 09/25/24 14:40 Labs: Laboratory Results - last 24 hr 09/25/24 14:40: WBC 10.2, RBC 3.75 L, Hgb 11.7 L, Hct 34.0 L, MCV 90.7, MCH 31.2, MCHC 34.4, RDW Std Deviation 42.6, RDW Coeff of Rebeca 13.0, Plt Count 177, MPV 10.4, Immature Gran % (Auto) 0.900, Neut % (Auto) 77.6 H, Lymph % (Auto) 15.8 L, Mathews % (Auto) 4.9, Eos % (Auto) 0.4, Baso % (Auto) 0.4, A bsolute Neuts (auto) 8.0 H, Absolute Lymphs (auto) 1.62, Nucleated RBC % 0, Sodium 137, Potassium 3.6, Chloride 104, Carbon Dioxide 22.6, Anion Gap 10, BUN 4, Creatinine 0.70, Est GFR (MDRD) Non-Af 123, BUN/Creatinine Ratio 6.2 L, Glucose 108 H, Calcium 9.0, Total Bilirubin 4.12 H, Direct Bilirubin 3.02 H, AST 74 H, ALT 95 H, Alkaline Phosphatase 154 H, Total Protein 6.2, Albumin 3.4 L, Globulin 2.8, Lipase 23 09/25/24 14:45: Lactic Acid < 1.0 Assessment Plan Assessment/Plan (1) Choledocholithiasis: (2) Vaginal delivery: PLAN: Plan 24 y/o F w/ PMHx: Biliary colic which from description has been ongoing for some time who presents to the [facility] ED with history of being in her third trimester of . Laboratory analysis showed increased bilirubin to 4.8, AST 350, ALT 371, alkaline phosphatase 200. Ultrasound showed multiple filling defects in gallbladder and common bile duct increased from 5 mm to 11 mm. She did also have some leukocytosis. I suspect obstructive jaundice secondary to choledocholithiasis and possible underlying ascending cholangitis. Patient will unde (more content not included)... Normal [facility] MR/POSTOP.ANEon 09-25-2024 MR/POSTOP.[facility] Medical Records Department [address] [place] [address] Anesthesia Postop Eval I 09/25/24 1803 MR#: [id number] Acct: [id number] Name: LUCY CROWLEY V Rep #: [id number] : 2000 From: Saran Fragoso MD PCP: Dr. Heather Ruby, DO Status:ADM IN Y Race: C Location: [place] [address] Anesthesia: Postop Eval I Current Vital Signs Temperature: 97.6 F Pulse Rate: 96 Blood Pressure: 112/78 Respiratory Rate: 16 Pulse Ox: 94 Oxygen Delivery Method: Room Air Assessment Airway patent: Yes Spontaneous unlabored respirations: Yes Mental status: Awake nausea: No Vomiting: No Anesthesia Complication: No Fluid Hydration Crystalloid volume administer (ml): 400 Total IV fluid infused: 400 Progress Note Anesthesia document: Postop Eval 1 completed: Yes 09/25/241803 Date Saran Fragoso MD Cosigner Signature: Date CC: Signed Normal [facility] MR/[id number] 09-25-2024 /[facility] Medical Records Department [address] [place] [address] Anesthesia Postop Eval II 09/25/241804 MR#: [id number] Acct: [id number] Name: LUCY CROWELY V Rep #: [id number] : 2000 From: Saran Fragoso MD PCP: Dr. Heather Ruby, DO Status:ADM IN Y Race: C Location: [facility] PR028-6 Anesthesia Postop Eval I Sum Postop Eval Completion status Anesthesia document: Postop Eval 1 completed: Yes Anesthesia Postop Eval I Summary Anesthesia Postop Eval I Summary: Anesthesia Postop Eval I: Assessment Summary Airway patent Yes 09/25/24 18:04 Spontaneous unlabored Yes 09/25/24 18:04 respirations Mental status Awake 09/25/24 18:04 nausea No 09/25/24 18:04 Vomiting No 09/25/24 18:04 Anesthesia Postop Eval I: Fluid Summary Crystalloid volume administer 400 09/25/24 18:04 (ml) Colloids volume administered ( ml) Blood Product volume administered (ml) Total IV fluid infused 400 09/25/24 18:04 Anesthesia Postop Eval I: Summary Notes Anesthesia Complication No 09/25/24 18:04 Anesthesia Complication Comment: Post-operative progress note Anesthesia: Postop Eval II Evaluation Mental status: Awake Pain Level: 0 nausea: No Vomiting: No 09/25/24 1805 Date Saran Dean Signature: Date CC: Signed Normal [facility] Mean corpuscular hemoglobin (MCH) determinationOrdered By: Florentin Zamudio on 09-25-2024 MCH (RBC) [Entitic mass] 31.2 pg 27.0-32.0 [facility] Mean corpuscular hemoglobin concentration (MCHC) determinationOrdered By: Florentin Zamudio on 09-25-2024 MCHC (RBC) [Mass/Vol] 34.4 g/dL 32-36 [facility] Mean platelet volume determi nationOrdered By: Florentin Zamudio on 09-25-2024 Platelet mean volume (Bld) [Entitic vol] 10.4 fL 6.2-12.0 [facility] Monocyte percentageOrdered B y: Florentin Zamudio on 09-25-2024 Monocytes/100 WBC (Bld) 4.9 % 0-10 [facility] Neutrophil percentageOrdered By: Florentin Zamudio on 09-25-2024 Neutrophils/100 WBC (Bld) 77.6 % High 47-70 [facility] No Panel Informationon 09-25 AGE 24 {years} Normal [facility].; [facility]. Work Phone: Nucleated red blood cell per centageOrdered By: Florentin Zamudio on 09-25-2024 Nucleated RBC/100 WBC (Bld) [Ratio] 0 % 0-5 [facility] Platelet countOrdered By: Roge Zamudio on 09-25-2024 Platelets (Bld) [#/Vol] 177 10*3/uL 150-450 [facility] Potassium (Unsp spec) [Mass/ Vol]Ordered By: Florentin Zamudio on 09-25-2024 Potassium [Moles/Vol] 3.6 mmol/L 3.3-5.1 [facility] RBC Auto (Bld) [#/Vol]Ordere d By: Florentin Zamudio on 09-25-2024 RBC (Bld) [#/Vol] 3.75 10*6/uL Low 4.2-5.4 [facility] Serum creatinine measurement (mass/volume)Ordered By: Florentin Zamudio on 09-25-2024 Creatinine [Mass/Vol] 0.70 mg/dL 0.70-1.20 [facility] Serum globulin measurementOr dered By: Florentin Zamudio on 09-25-2024 Globulin (S) [Mass/Vol] 2.8 g/dL 2.2-4.2 [facility] Serum glucose measurement (m ass/volume)Ordered By: Florentin Zamudio on 09-25-2024 Glucose [Mass/Vol] 108 mg/dL High 70-99 [facility] Serum or plasma alanine allan otransferase (ALT) measurementOrdered By: Florentin Zamudio on 09-25-2024 ALT [Catalytic activity/Vol] 95 U/L High <35 [facility] Serum or plasma albumin jeimy urement (mass/volume)Ordered By: Florentin Jones on 09-25-2024 Albumin [Mass/Vol] 3.4 g/dL Low 3.5-5.0 [facility] Serum or plasma alkaline chaka sphatase measurementOrdered By: Florentin Zamudio on 09-25-2024 ALP [Catalytic activity/Vol] 154 U/L High 35-104 [facility] Serum or plasma calcium jeimy urement (mass/volume)Ordered By: Florentin Jones on 09-25-2024 Calcium [Mass/Vol] 9.0 mg/dL 7.6-11.0 [facility] Serum or plasma urea nitroge n measurement (mass/volume)Ordered By: Florentin Zamudio on 09-25-2024 Urea nitrogen [Mass/Vol] 4 mg/dL 4-19 [facility] Sodium levelOrdered By: Augusto Zamudio on 09-25-2024 Sodium [Moles/Vol] 137 mmol/L 133-145 [facility] Total proteinOrdered By: Minh sylvia Lizz on 09-25-2024 Protein [Mass/Vol] 6.2 g/dL 5.9-8.4 [facility] US RUQ (GB/PANCREAS)on 09-25 US RUQ (GB/PANCREAS) [place] [id number] Patient: LUCY CROWLEY V. Phone#: : [phone] Age: 24 Gender: F Pt. Type: In Account: [id number] Location: 014 Ordering: CRYSTAL UPTAIN Exam Date: 09/25/2024/9:09 Family Phys: IRINA ZAMORA Charge Code: 318551 Physician: Guthrie Order #: [id number] Dose#: PROCEDURE: RUQ (GB) ULTRASOUND COMPARISON: [facility], RUQ (GB), 09/24/2024, 12:36. INDICATIONS: Recheck gallbladder and bile duct. FINDINGS: LIVER: Normal. Normal size and echotexture. No significant masses. BILIARY: The gallbladder is distended. There is mild thickening of the gallbladder wall measuring 3.5 millimeters. Multiple intraluminal calculi are present. There is no evidence of pericholecystic fluid. The common bile duct is dilated at 11 millimeters. Intraductal calculus is not demonstrated. PANCREAS: Normal. No visible mass, abnormal atrophy, or ductal dilatation. RIGHT KIDNEY: Normal. No mass or obstruction. OTHER: Negative. CONCLUSION: 1. Cholelithiasis. 2. The common bile duct is dilated at 11 millimeters. Intraductal calculus is not demonstrated. DICTATED BY: LIZBET ESPINOZA MD ON 09/25/2024 AT 10:28 APPROVED BY: LIZBET ESPINOZA MD ON 09/25/2024 AT 10:31 Normal [facility] White blood cell (WBC) count Ordered By: Florentin Zamudio on 09-25-2024 WBC (Bld) [#/Vol] 10.2 10*3/uL 4.4-11.0 [facility] AMYLASEon 09-24-2024 Amylase [Catalytic activity/Vol] 36 U/L Normal 25 - 115 [employer] [facility].; [employer]. Work Phone: Comment on above: Performed By: #### 2 03489 #### [facility],[address] [place] [address] BB TYPE & SCREENon 5 ABO O Normal [facility] Comment on above: Performed By: #### 2 11228 #### [facility],[address] [place] [address] ANTIBODY SCR Negative Normal [facility] Comment on above: Performed By: #### 2 02949 #### [facility],[address] [place] [address] BB TYPE & SCREEN Normal [facility] Comment on above: Result Comment: TYPE , Rh, AND SCREEN Performed By: #### 2 42385 #### [facility],[address] [place] [address] Rh Nom (Bld) Positive Normal [facility].; [employer]. Work Phone: Comment on above: Performed By: #### 2 65564 #### [facility],[address] [place] [address] CBC + DIFFon 09-24-2024 Basophils/100 WBC (Bld) 0.2 % Normal 0.0 - 2.0 [facility].; [employer], [employer]. Work Phone: Comment on above: Performed By: #### 2 00022 #### [address] [address] Eosinophils/100 WBC (Bld) 0.9 % Normal 0.0 - 7.0 [facility], [facility].; [employer], [employer]. Work Phone: Comment on above: Performed By: #### 2 53525 #### [address] [address] Erythrocyte distribution width (RBC) [Ratio] 13.3 % Normal 12.0 - 15.6 [facility], [facility].; [place] [email or web address], [employer]. Work Phone: Comment on above: Performed By: #### 2 07820 #### [address] [address] Hematocrit (Bld) [Volume fraction] 38.7 % Normal 34.0 - 46.0 [facility], Inc[employer], [employer]. Work Phone: Comment on above: Performed By: #### 2 31911 #### [address] [address] Hemoglobin (Bld) [Mass/Vol] 13.3 g/dL Normal 12.0 - 16.0 [facility], [facility].; [employer], [employer]. Work Phone: Comment on above: Performed By: #### 2 80040 #### [address] [address] Lymphocytes/100 WBC (Bld) 19.0 % Low 20.0 - 45.0 [facility].; [place] [email or web address], [employer]. Work Phone: Comment on above: Performed By: #### 2 92081 #### [address] [address] MANUAL DIFF N/A Normal [facility] [employer]; [employer]. Work Phone: Comment on above: Performed By: #### 2 56085 #### [address] [address] MCH (RBC) [Entitic mass] 31 pg Normal 27 - 33 [facility].; [place] [employer]. Work Phone: Comment on above: Performed By: #### 2 80713 #### [address] [address] MCV (RBC) [Entitic vol] 91 fL Normal 80 - 99 [facility]; [place] [employer] Work Phone: Comment on above: Performed By: #### 2 91791 #### [address] [address] Morphology Cy (Bld) [Interp] N/A Normal [facility]; [place] [employer]. Work Phone: Comment on above: Performed By: #### 2 93089 #### [address] [address] Neutrophils/100 WBC (Bld) 73.9 % Normal 46.0 - 76.0 [facility]; [place] [employer]. Work Phone: Comment on above: Performed By: #### 2 85632 #### [address] [address] Platelet mean volume (Bld) [Entitic vol] 8.3 fL Normal 6.6 - 10.5 [facility]; [place] [employer]. Work Phone: Comment on above: Result Comment: AUTO MATED DIFFERENTIAL Performed By: #### 2 08715 #### [address] [address] Baso # 0.02 x10EE3/UL Normal 0.00 - 0.10 [facility] Comment on above: Performed By: #### 2 43513 #### [facility],[address] [place] [address] CBC + DIFF Normal [facility] Comment on above: Result Comment: CBC- COMPLETE BLOOD COUNT Performed By: #### 2 21017 #### [facility],[address] [place] [address] EO # 0.07 x10EE3/UL Normal 0.00 - 0.50 [facility] Comment on above: Performed By: #### 2 02347 #### [facility],[address] [place] [address] Lymph # 1.60 x10EE3/UL Normal 0.80 - 2.80 [facility] Comment on above: Performed By: #### 2 49953 #### [facility],[address] [place] [address] MCHC 34 X10 3 Normal 32 - 36 [facility] Comment on above: Performed By: #### 2 07086 #### [facility],[address] [place] [address] Mathews # 0.51 x10EE3/UL Normal 0.20 - 1.00 [facility] Comment on above: Performed By: #### 2 05644 #### [facility],[address] [place], [place] [address] MONOS % 6.1 % Normal 0.0 - 10.0 [facility] Comment on above: Performed By: #### 2 14634 #### [facility],[address] [place] [address] Neut # 6.24 x10EE3/UL Normal 1.50 - 7.10 [facility] Comment on above: Performed By: #### 2 90538 #### [facility],[address] [place] [address] PLATELET 256 x10EE3/UL Normal 150 - 450 [facility] Comment on above: Performed By: #### 2 76861 #### [facility],[address] [place] [address] 77652 RBC 4.24 x 10EE6/UL Normal 4.10 - 5.30 [facility] Comment on above: Performed By: #### 2 83975 #### [facility],[address] [place] [address] 46925 WBC 8.5 x 10EE3/UL Normal 4.5 - 10.8 [facility] Comment on above: Performed By: #### 2 91589 #### [facility],[address] [place] [address]996 CMP with eGFRon 09-24-2024 AGE 24 years Normal [facility] Comment on above: Performed By: #### 2 27550 #### [place] [id number] Albumin [Mass/Vol] 2.8 g/dL Low 3.4 - 5.0 [employer]. Work Phone: Comment on above: Performed By: #### 2 29232 #### [facility],[address] [place] [address]66 Albumin/Globulin [Mass ratio] 0.7 {ratio} Low 0.9 - 1.6 [facility] Comment on above: Performed By: #### 2 20209 #### [facility],[address] [place] [address] 93555 ALK PHOS 153 U/L High 46 - 116 [facility] Comment on above: Performed By: #### 2 28839 #### [facility],[address] [place] [address] 72876 ALT [Catalytic activity/Vol] 118 U/L High 16 - 63 [employer] [facility].; [employer]. Work Phone: Comment on above: Performed By: #### 2 71506 #### [facility],[address] [place] [address] 80683 Anion gap [Moles/Vol] 11 mmol/L Normal 10 - 20 [facility], [facility].; [facility] Work Phone: Comment on above: Performed By: #### 2 62738 #### [address] [address] AST [Catalytic activity/Vol] 93 U/L High 13 - 39 [facility], [facility].; [facility] Work Phone: Comment on above: Performed By: #### 2 89559 #### [address] [address] B/C RATIO 10 ratio Normal 0 - 30 [facility] Comment on above: Performed By: #### 2 01928 #### [address] [address] Bilirubin [Mass/Vol] 4.0 mg/dL High 0.2 - 1.0 [facility], [facility].; [facility] Work Phone: Comment on above: Performed By: #### 2 33226 #### [address] [address] Calcium [Mass/Vol] 8.6 mg/dL Normal 8.5 - 10.1 [facility], [facility].; [place] [email or web address] Work Phone: Comment on above: Performed By: #### 2 79675 #### [address] [address] Chloride [Moles/Vol] 104 mmol/L Normal 98 - 107 [facility], [facility].; [place] [employer] Work Phone: Comment on above: Performed By: #### 2 37556 #### [facility] [place] [address]149 CMP with eGFR Normal [facility] Comment on above: Result Comment: COMP REHENSIVE METABOLIC PANEL Performed By: #### 2 38083 #### [facility],[address] [place] [address] 40622 CO2 [Moles/Vol] 25.3 mmol/L Normal 21.0 - 32.0 [facility].; [facility]. Work Phone: Comment on above: Performed By: #### 2 01832 #### [facility],[address] [place], [place] [id number] Creatinine [Mass/Vol] 0.71 mg/dL Normal 0.55 - 1.02 [facility].; [facility]. Work Phone: Comment on above: Performed By: #### 2 52993 #### [facility],[address] [place] [address] GFR/1.73 sq M.predicted among non-blacks MDRD (S/P/Bld) [Vol rate/Area] mL/min/{1.73_m2} Normal 60 - 999 [facility] Comment on above: Performed By: #### 2 27816 #### [address] [address] Result Comment: ACCO RDING TO THE NATIONAL KIDNEY DISEASE EDUCATION PROGRAM(NKDE), A NORMAL eGFR IS A VALUE GREATER THAN OR EQUAL TO 60 ML/MIN/1.73 SQ METERS. CHRONIC KIDNEY DISEASE: <60mL/MIN/1.73 SQ METERS KIDNEY FAILURE: <15mL/MIN/1.73 SQ METERS THIS TEST SHOULD ONLY BE USED FOR PATIENTS 18 YEARS OF AGE AND OLDER. Globulin (S) [Mass/Vol] 3.9 g/dL High 1.5 - 3.8 [facility].; [employer] [facility]. Work Phone: Comment on above: Performed By: #### 2 78460 #### [address] [address] Glucose [Mass/Vol] 77 mg/dL Normal 74 - 106 [facility].; [facility]. Work Phone: Comment on above: Performed By: #### 2 74738 #### [address] [address] Potassium [Moles/Vol] 3.7 mmol/L Normal 3.5 - 5.1 [facility].; [facility], [facility]. Work Phone: Comment on above: Performed By: #### 2 15622 #### [address] [address] Protein [Mass/Vol] 6.7 g/dL Normal 6.4 - 8.2 [facility].; [facility], [facility]. Work Phone: Comment on above: Performed By: #### 2 92631 #### [address] [address] Sodium [Moles/Vol] 137 mmol/L Normal 136 - 145 [facility].; [facility], [facility]. Work Phone: Comment on above: Performed By: #### 2 32555 #### [address] [address] Urea nitrogen [Mass/Vol] 7 mg/dL Normal 7 - 18 [facility].; [facility], [facility]. Work Phone: Comment on above: Performed By: #### 2 61694 #### [address] [address] AGE 24 years Normal [facility] Comment on above: Performed By: #### 2 06439 #### [address] [address] Albumin/Globulin [Mass ratio] 0.7 {ratio} Low 0.9 - 1.6 [facility] Comment on above: Performed By: #### 2 62000 #### [address] [address] ALK PHOS 153 U/L High 46 - 116 [facility] Comment on above: Performed By: #### 2 88122 #### [facility],[address] [place] [address] 86475 ALT [Catalytic activity/Vol] 129 U/L High 16 - 63 [facility].; [facility]. Work Phone: Comment on above: Performed By: #### 2 97244 #### [facility],[address] [place] [address] 69073 Anion gap [Moles/Vol] 12 mmol/L Normal 10 - 20 [facility].; [facility]. Work Phone: Comment on above: Performed By: #### 2 16753 #### [address] [address] AST [Catalytic activity/Vol] 103 U/L High 13 - 39 [facility].; [facility]. Work Phone: Comment on above: Performed By: #### 2 55319 #### [address] [address] B/C RATIO 12 ratio Normal 0 - 30 [facility] Comment on above: Performed By: #### 2 86828 #### [facility],[address] [place] [address] Bilirubin [Mass/Vol] 4.2 mg/dL High 0.2 - 1.0 [facility].; [facility]. Work Phone: Comment on above: Performed By: #### 2 30264 #### [facility],[address] [place] [address] Calcium [Mass/Vol] 8.7 mg/dL Normal 8.5 - 10.1 [facility].; [facility] Work Phone: Comment on above: Performed By: #### 2 63822 #### [facility],[address] [place] [address] 05674 Chloride [Moles/Vol] 102 mmol/L Normal 98 - 107 [facility].; [facility] Work Phone: Comment on above: Performed By: #### 2 96495 #### [facility],[address] [place] [address] CMP with eGFR Normal [facility] Comment on above: Result Comment: COMP REHENSIVE METABOLIC PANEL Performed By: #### 2 78298 #### [facility],[address] [place] [address] 89029 CO2 [Moles/Vol] 26.8 mmol/L Normal 21.0 - 32.0 [facility]; [facility] Work Phone: Comment on above: Performed By: #### 2 51378 #### [address] [address] Creatinine [Mass/Vol] 0.60 mg/dL Normal 0.55 - 1.02 [facility].; [facility] Work Phone: Comment on above: Performed By: #### 2 36508 #### [address] [address] GFR/1.73 sq M.predicted among non-blacks MDRD (S/P/Bld) [Vol rate/Area] mL/min/{1.73_m2} Normal 60 - 999 [facility] Comment on above: Performed By: #### 2 37322 #### [address] [address] Result Comment: ACCO RDING TO THE NATIONAL KIDNEY DISEASE EDUCATION PROGRAM(NKDE), A NORMAL eGFR IS A VALUE GREATER THAN OR EQUAL TO 60 ML/MIN/1.73 SQ METERS. CHRONIC KIDNEY DISEASE: <60mL/MIN/1.73 SQ METERS KIDNEY FAILURE: <15mL/MIN/1.73 SQ METERS THIS TEST SHOULD ONLY BE USED FOR PATIENTS 18 YEARS OF AGE AND OLDER. Globulin (S) [Mass/Vol] 4.0 g/dL High 1.5 - 3.8 [facility]; [facility] Work Phone: Comment on above: Performed By: #### 2 93861 #### [place] [id number] Glucose [Mass/Vol] 80 mg/dL Normal 74 - 106 [facility]; [facility] Work Phone: Comment on above: Performed By: #### 2 40621 #### [address] [address] Potassium [Moles/Vol] 3.9 mmol/L Normal 3.5 - 5.1 [facility]; [facility] Work Phone: Comment on above: Performed By: #### 2 64076 #### [address] [address] Protein [Mass/Vol] 6.8 g/dL Normal 6.4 - 8.2 [facility]; [facility] Work Phone: Comment on above: Performed By: #### 2 69138 #### [address] [address] AGE 24 years Normal [facility] Comment on above: Performed By: #### 2 37987 #### [address] [address] Albumin [Mass/Vol] 2.9 g/dL Low 3.4 - 5.0 [facility].; [facility]. Work Phone: Comment on above: Performed By: #### 2 40650 #### [facility],[address] [place] [address]289 Albumin/Globulin [Mass ratio] 0.7 {ratio} Low 0.9 - 1.6 [facility] Comment on above: Performed By: #### 2 82283 #### [facility],[address] [place] [address] 21065 ALK PHOS 155 U/L High 46 - 116 [facility] Comment on above: Performed By: #### 2 45026 #### [facility],[address] [place] [address] 91857 ALT [Catalytic activity/Vol] 137 U/L High 16 - 63 [facility].; [facility], [employer]. Work Phone: Comment on above: Performed By: #### 2 80096 #### [facility],[address] [place] [address] 90949 Anion gap [Moles/Vol] 13 mmol/L Normal 10 - 20 [facility].; [facility] Work Phone: Comment on above: Performed By: #### 2 26385 #### [facility],[address] [place] [address] 87679 AST [Catalytic activity/Vol] 131 U/L High 13 - 39 [facility].; [facility]. Work Phone: Comment on above: Performed By: #### 2 90150 #### [facility],[address] [place] [address]647 B/C RATIO 14 ratio Normal 0 - 30 [facility] Comment on above: Performed By: #### 2 28233 #### [facility],[address] [place] [address] Bilirubin [Mass/Vol] 4.8 mg/dL High 0.2 - 1.0 [facility].; [facility] Work Phone: Comment on above: Performed By: #### 2 75826 #### [facility],[address] [place] [address] 01682 Calcium [Mass/Vol] 9.2 mg/dL Normal 8.5 - 10.1 [facility].; [facility], [facility] Work Phone: Comment on above: Performed By: #### 2 56007 #### [place] [address] CMP with eGFR Normal [facility] Comment on above: Result Comment: COMP REHENSIVE METABOLIC PANEL Performed By: #### 2 10632 #### [address] [address] CO2 [Moles/Vol] 24.8 mmol/L Normal 21.0 - 32.0 [facility].; [facility], [facility] Work Phone: Comment on above: Performed By: #### 2 07397 #### [place] [id number] Creatinine [Mass/Vol] 0.63 mg/dL Normal 0.55 - 1.02 [facility].; [facility], [facility] Work Phone: Comment on above: Performed By: #### 2 58211 #### [address] [address] GFR/1.73 sq M.predicted among non-blacks MDRD (S/P/Bld) [Vol rate/Area] mL/min/{1.73_m2} Normal 60 - 999 [facility] Comment on above: Performed By: #### 2 18851 #### [address] [address] Result Comment: ACCO RDING TO THE NATIONAL KIDNEY DISEASE EDUCATION PROGRAM(NKDE), A NORMAL eGFR IS A VALUE GREATER THAN OR EQUAL TO 60 ML/MIN/1.73 SQ METERS. CHRONIC KIDNEY DISEASE: <60mL/MIN/1.73 SQ METERS KIDNEY FAILURE: <15mL/MIN/1.73 SQ METERS THIS TEST SHOULD ONLY BE USED FOR PATIENTS 18 YEARS OF AGE AND OLDER. Globulin (S) [Mass/Vol] 4.4 g/dL High 1.5 - 3.8 [facility]; [facility] Work Phone: Comment on above: Performed By: #### 2 24342 #### [address] [address] Glucose [Mass/Vol] 94 mg/dL Normal 74 - 106 [facility]; [facility] Work Phone: Comment on above: Performed By: #### 2 92520 #### [address] [address] Protein [Mass/Vol] 7.3 g/dL Normal 6.4 - 8.2 [facility]; [facility] Work Phone: Comment on above: Performed By: #### 2 29998 #### [address] [address] Sodium [Moles/Vol] 138 mmol/L Normal 136 - 145 [facility]; [place] [employer] [facility]. Work Phone: Comment on above: Performed By: #### 2 91494 #### [address] [address] Urea nitrogen [Mass/Vol] 9 mg/dL Normal 7 - 18 [facility]; [facility]. Work Phone: Comment on above: Performed By: #### 2 17572 #### [address] [place] [address] LDHon 09-24-2024 LDH 178 U/L Normal 81 - 234 [facility] Comment on above: Performed By: #### 2 17226 #### [facility],[address] [place], [place] [address] LIPASEon 09-24-2024 Lipase [Catalytic activity/Vol] 22.0 U/L Normal 15.0 - 78.0 [facility]; [facility] Work Phone: Comment on above: Result Comment: *PLE ASE NOTE THAT RANGES FOR LIPASE HAVE CHANGED OF 06/07/23 DUE TO AN ASSAY UPDATE BY THE ENGINE LATHE OPERATOR.THE NEW ASSAY RANGE IS 6-250 U/L, WITH A REFERENCE RANGE OF 16-77 U/L. Performed By: #### 2 19323 #### [place] [id number] Laboratory - Blood bankon ABO group Nom (Bld) O Normal [facility]; [facility] Work Phone: Blood group antibody screen Ql Negative Normal [facility]; [facility]. Work Phone: Blood type and Indirect antibody screen panel (Bld) Normal [facility]; [facility]. Work Phone: Laboratory - Chemistry and C hemistry - challengeon 09-24-2024 Albumin [Mass/Vol] 0.7 g/dL Abnormal 0.9 - 1.6 [facility]; [facility]. Work Phone: ALP [Catalytic activity/Vol] 155 U/L Abnormal 46 - 116 U/L [facility].; [facility], [facility]. Work Phone: ALP [Catalytic activity/Vol] 153 U/L Abnormal 46 - 116 U/L [facility].; [facility]. Work Phone: Comprehensive metabolic 2000 panel CMP with eGFR Normal [facility]; [facility] Work Phone: Creatinine [Mass/Vol] 96.76 mg/dL Normal [facility]; [facility] Work Phone: GFR/1.73 sq M.predicted among blacks MDRD (S/P/Bld) [Vol rate/Area] mL/min/{1.73_m2} Normal 60 - 999 {ML/MINUTE} [facility]; [facility] Work Phone: GFR/1.73 sq M.predicted MDRD (S/P/Bld) [Vol rate/Area] mL/min/{1.73_m2} Normal 60 - 999 {ML/MINUTE} [facility]; [facility] Work Phone: LDH Lactate to pyruvate reaction [Catalytic activity/Vol] 178 U/L Normal 81 - 234 U/L [facility]; [facility] Work Phone: Protein (24H U) [Mass/Vol] 17.80 mg/dL Abnormal 0.00 - 10.00 mg/dL [facility]; [facility] Work Phone: Urea nitrogen/Creatinine [Mass ratio] 14 {ratio} Normal 0 - 30 {ratio} [facility]; [place] [employer] [facility] Work Phone: Urea nitrogen/Creatinine [Mass ratio] 12 {ratio} Normal 0 - 30 {ratio} [facility]; [place] [employer] [facility] Work Phone: Urea nitrogen/Creatinine [Mass ratio] 10 {ratio} Normal 0 - 30 {ratio} [facility]; [place] [employer] [facility] Work Phone: Laboratory - Hematology and Cell countson 09-24-2024 Basophils (Bld) [#/Vol] 0.02 {3/UL} Normal 0.00 - 0.10 {3/UL} [place] [employer] [facility].; [employer] Work Phone: CBC W Auto Differential panel (Bld) CBC + DIFF Normal [facility].; [employer] Work Phone: Eosinophils (Bld) [#/Vol] 0.07 {3/UL} Normal 0.00 - 0.50 {3/UL} [place] [employer].; [employer]. Work Phone: Lymphocytes (Bld) [#/Vol] 1.60 {3/UL} Normal 0.80 - 2.80 {3/UL} [employer] Work Phone: MCHC (RBC) [Mass/Vol] 34 {X10_3} Normal 32 - 3 6 {X10_3} [place] [employer] Work Phone: Monocytes (Bld) [#/Vol] 0.51 {3/UL} Normal 0.20 - 1.00 {3/UL} [place] [employer]. Work Phone: Monocytes/100 WBC (Bld) 6.1 % Normal 0.0 - 10.0 % [place] [employer].; [employer] Work Phone: Neutrophils (Bld) [#/Vol] 6.24 {3/UL} Normal 1.50 - 7.10 {3/UL} [employer] Work Phone: Platelets (Bld) [#/Vol] 256 {3/UL} Normal 150 - 450 {3/UL} [employer] Work Phone: RBC (Bld) [#/Vol] 4.24 {6/UL} Normal 4.10 - 5.3 0 {6/UL} [employer] Work Phone: WBC (Bld) [#/Vol] 8.5 {3/UL} Normal 4.5 - 10.8 {3/UL} [facility] [employer] [place] [employer]. Work Phone: No Panel Informationon 09-24 AGE 24 {years} Normal [employer] Work Phone: URIC ACIDon 09-24-2024 Urate [Mass/Vol] 3.9 mg/dL Normal 2.6 - 6.0 [employer].; [employer]. Work Phone: Comment on above: Performed By: #### 2 82541 #### [address] [address] URINE CREATININE AND PROTEIN RATIOon 09-24-2024 CREATININE UR 96.76 mg/dl Normal [facility] Comment on above: Performed By: #### 2 24251 #### [address] [address] PC RATIO 0.18 mg/dL Normal 0.00 - 10.00 [facility].; [place] [employer]. Work Phone: Comment on above: Performed By: #### 2 96041 #### [facility],[address] [place] [address] Protein (U) [Mass/Vol] 17.80 mg/dL High 0.00 - 10.00 [facility] Comment on above: Performed By: #### 2 18741 #### [address] [address] US RUQ (GB/PANCREAS)on 09-24 US RUQ (GB/PANCREAS) [address] [address] Patient: LUCY CROWLEY V. Phone#: : [phone] Age: 24 Gender: F Pt. Type: In Account: [id number] Location: [id number] Ordering: CRYSTAL UPTAIN Exam Date: 09/24/2024/12:36 Family Phys: IRINA ZAMORA Charge Code: 546199 Physician: Guthrie Order #: [id number] Dose#: PROCEDURE: RUQ (GB) ULTRASOUND COMPARISON: None. INDICATIONS: Jaundice FINDINGS: LIVER: Mild intrahepatic ductal dilatation.. Normal size and echotexture. No significant masses. BILIARY: Numerous shadowing stones layering in the gallbladder. There is sludge in the gallbladder. Gallbladder wall measures 0.2 cm. Common bile duct measures 0.5 cm. Store Receiver stone measures 0.5 cm. PANCREAS: Pancreas is obscured by shadowing bowel gas RIGHT KIDNEY: Normal renal parenchymal echogenicity. No hydronephrosis. Trace amount of free fluid adjacent to the right kidney. OTHER: Negative. CONCLUSION: 1. Cholelithiasis. Numerous small stones layering in the gallbladder. 2. Mild intrahepatic ductal dilatation. This raises concern for a stone in the duct. DICTATED BY: ALESSANDRO ANNE MD ON 09/24/2024 AT 13:22 APPROVED BY: ALESSANDRO ANNE MD ON 09/24/2024 AT 13:27 Normal [facility] CBC W Auto Differential pane l (Bld)on 08-15-2023 Basophils (Bld) [#/Vol] 0.03 10*3/uL Normal <=0.70 [facility] Comment on above: Performed By: #### 5 7021-8 #### [facility] [address] [place] [address] Hospital Attendant - Scarlett ALLAN [id number] Basophils/100 WBC (Bld) 0.3 % Normal <=2.0 [facility] Comment on above: Performed By: #### 5 7021-8 #### [facility] [address] [place] [address] Hospital Attendant - Scarlett [employer] [id number] Eosinophils (Bld) [#/Vol] 0.17 10*3/uL Normal <=0.70 [facility] Comment on above: Performed By: #### 5 7021-8 #### [address] [place] [address] Hospital Attendant - Scarlett [employer] [id number] Eosinophils/100 WBC (Bld) 1.5 % Normal <=10.0 [facility] Comment on above: Performed By: #### 5 7021-8 #### [address] [place] [address] Hospital Attendant - Scarlett [employer] [id number] Erythrocyte distribution width (RBC) [Entitic vol] 36.7 fL Normal 36.4-46.3 [facility] Comment on above: Performed By: #### 5 7021-8 #### [address] [place] [address] Hospital Attendant - Scarlett [employer] [id number] Hematocrit (Bld) [Volume fraction] 38.9 % Normal 37.0-47.0 [facility] Comment on above: Performed By: #### 5 7021-8 #### [address] Director - Scarlett [employer] [id number] Hemoglobin (Bld) [Mass/Vol] 13.7 g/dL Normal 12.0-16.0 [facility] Comment on above: Performed By: #### 5 7021-8 #### [address] [place] [address] Hospital Attendant - Scarlett [employer] [id number] Immature granulocytes (Bld) [#/Vol] 0.03 10*3/uL Normal <=0.10 [facility] Comment on above: Performed By: #### 5 7021-8 #### [address] Director - Scarlett [employer] [id number] Immature granulocytes/100 WBC (Bld) 0.30 % Normal <=1.50 [facility] Comment on above: Performed By: #### 5 7021-8 #### [address] [place] [address] Hospital Attendant - Scarlett [employer] [id number] Lymphocytes (Bld) [#/Vol] 2.18 10*3/uL Normal 1.20-3.40 [facility] Comment on above: Performed By: #### 5 7021-8 #### [place] [address] [place] [address] Hospital Attendant - Scarlett [employer] [id number] Lymphocytes/100 WBC (Bld) 19.4 % Low 20.0-40.0 [facility] Comment on above: Performed By: #### 5 7021-8 #### [address] [place] [address] Hospital Attendant - Scarlett ALLAN [id number] MCH (RBC) [Entitic mass] 30.0 pg Normal 27.0-31.0 [facility] Comment on above: Performed By: #### 5 7021-8 #### [place] [address] [place] [address] Hospital Attendant - Scarlett ALLAN [id number] MCHC (RBC) [Mass/Vol] 35.2 g/dL Normal 32.0-36.0 [facility] Comment on above: Performed By: #### 5 7021-8 #### [address] [place] [address] Hospital Attendant - Scarlett ALLAN [id number] MCV (RBC) [Entitic vol] 85.1 fL Normal 80.0-100.0 [facility] Comment on above: Performed By: #### 5 7021-8 #### [place] [address] [place] [address] Hospital Attendant - Scarlett ALLAN [id number] Monocytes (Bld) [#/Vol] 0.61 10*3/uL High 0.10-0.60 [facility] Comment on above: Performed By: #### 5 7021-8 #### [place] [address] [place] [address] Hospital Attendant - Scarlett [employer] [id number] Monocytes/100 WBC (Bld) 5.4 % Normal <=8.0 [facility] [facility] Comment on above: Performed By: #### 5 7021-8 #### [address] [place] [address] Hospital Attendant - Scarlett RUVALCABAIA [id number] Neutrophils (Bld) [#/Vol] 8.21 10*3/uL High 1.40-6.50 [facility] Comment on above: Performed By: #### 5 7021-8 #### [address] [place] [address] Hospital Attendant - Scarlett RUVALCABAIA [id number] Neutrophils/100 WBC (Bld) 73.1 % High 50.0-70.0 [facility] Comment on above: Performed By: #### 5 7021-8 #### [address] [place] [address] Hospital Attendant - Scarlett RUVALCABAIA [id number] Nucleated RBC (Bld) [#/Vol] 0.00 10*3/uL Normal <=0.10 [facility] Comment on above: Performed By: #### 5 7021-8 #### [address] [place] [address] Hospital Attendant - Scarlett RUVALCABAIA [id number] Platelet mean volume (Bld) [Entitic vol] 9.6 fL Normal 9.0-13.0 [facility] Comment on above: Performed By: #### 5 7021-8 #### [address] [place] [address] Hospital Attendant - Scarlett Lopez CLIA [id number] Platelets (Bld) [#/Vol] 252 10*3/uL Normal 130-400 [facility] Comment on above: Performed By: #### 5 7021-8 #### [address] [place] [address] Hospital Attendant - Scarlett RUVALCABAIA [id number] RBC (Bld) [#/Vol] 4.57 10*6/uL Normal 4.00-6.30 [facility] Comment on above: Performed By: #### 5 7021-8 #### [facility] [address] [place] [address] Hospital Attendant - Scarlett ALLAN [id number] WBC (Bld) [#/Vol] 11.23 10*3/uL High 4.80-10.80 [facility] Comment on above: Performed By: #### 5 7021-8 #### [facility] [address] [place] [address] Hospital Attendant - Scarlett ALLAN [id number] Comprehensive metabolic 2000 panelon 08-15-2023 Albumin [Mass/Vol] 3.9 g/dL Normal 3.4-5.0 [facility] Comment on above: Performed By: #### 2 1198-7, 64580-7 #### [facility] [address] [place] [address] Hospital Attendant - Scarlett ALLAN [id number] ALP [Catalytic activity/Vol] 76 U/L Normal 50-136 [facility] Comment on above: Performed By: #### 2 1198-7, 34276-2 #### [facility] [address] [place] [address] Hospital Attendant - Scarlett ALLAN [id number] ALT [Catalytic activity/Vol] 20 U/L Normal 14-59 [facility] Comment on above: Performed By: #### 2 1198-7, 92968-8 #### [facility] [address] [place] [address] Hospital Attendant - Scarlett ALLAN [id number] Anion gap [Moles/Vol] 6.0 mmol/L Normal <=15.0 [facility] Comment on above: Performed By: #### 2 1198-7, 19638-6 #### [facility] [address] [place] [address] Hospital Attendant - Scarlett ALLAN [id number] AST [Catalytic activity/Vol] 9 U/L Low 15-37 [facility] Comment on above: Performed By: #### 2 1198-7, 15098-1 #### [facility] [address] [place] [address] Hospital Attendant - Scarlett RUVALCABAIA [id number] Bilirubin [Mass/Vol] 0.3 mg/dL Normal 0.2-1.0 [facility] Comment on above: Performed By: #### 2 1198-7, 94657-6 #### [facility] [address] [place] [address] Hospital Attendant - Scarlett RUVALCABAIA [id number] Calcium [Mass/Vol] 9.5 mg/dL Normal 8.5-10.1 [facility] Comment on above: Performed By: #### 2 1198-7, #### [facility] [address] [place] [address] Hospital Attendant - Scarlett RUVALCABAIA [id number] Chloride [Moles/Vol] 105 mmol/L Normal 98-107 [facility] Comment on above: Performed By: #### 2 1198-7, 24418-5 #### [facility] [address] [place] [address] Hospital Attendant - Scarlett Lopez CLIA [id number] CO2 [Moles/Vol] 27 mmol/L Normal 21-32 [facility] Comment on above: Performed By: #### 2 1198-7, 81315-0 #### [facility] [address] [place] [address] Hospital Attendant - Scarlett Lopez CLIA [id number] Creatinine [Mass/Vol] 0.68 mg/dL Normal 0.51-0.95 [facility] Comment on above: Performed By: #### 2 1198-7, 48074-6 #### [facility] [address] [place] [address] Hospital Attendant - Scarlett RUVALCABAIA [id number] GFR/1.73 sq M.predicted MDRD (S/P/Bld) [Vol rate/Area] mL/min/{1.73_m2} Normal >=59 [facility] Comment on above: Performed By: #### 2 8-7, 83947-9 #### [facility] [address] [place] [address] Hospital Attendant - Scarlett ALLAN [id number] Glucose [Mass/Vol] 103 mg/dL Normal 74-106 [facility] Comment on above: Performed By: #### 2 8-7, 36574-9 #### [facility] [address] [place] [address] Hospital Attendant - Scarlett ALLAN [id number] HGFR GLOMERULAR FILTRATIO N RATE INTERPRETATION~The eGFR is calculated using the MDRD equation.~This equation has been validated in patients with chronic kidney disease;~however, it underestimates the GFR in healthy patients with GFR's over 60 mL/min.~The equation is not valid in children under the age of 18.~NOTE: Criteria for Chronic Kidney Disease:~ ~1. Kidney damage for at least three months, as defined~by structural or functional abnormalities of the kidney,~with or without decreased glomerular filtration rate, manifested by either:~* Pathological abnormalities or~* Markers of Kidney damage, including abnormalities in~the composition of the blood or urine or abnormalities in imaging tests.~ ~2. GFR <60 mL/min/1.73 m squared for at least three months, with or without kidney damage.~ Normal [facility] Comment on above: Performed By: #### 2 8-7, 46545-6 #### [facility] [address] [place] [address] Hospital Attendant - Scarlett ALLAN [id number] Potassium [Moles/Vol] 3.9 mmol/L Normal 3.5-5.1 [facility] Comment on above: Performed By: #### 2 8-7, 85008-0 #### [facility] [address] [place] [address] Hospital Attendant - Scarlett ALLAN [id number] Protein [Mass/Vol] 7.6 g/dL Normal 6.4-8.2 [facility] Comment on above: Performed By: #### 2 8-7, #### [facility] [address] [place], [place] [address] Hospital Attendant - Scarlett ALLAN [id number] Sodium [Moles/Vol] 138 mmol/L Normal 136-145 [facility] Comment on above: Performed By: #### 2 1198-7, 39196-7 #### [facility] [address] [place] [address] Hospital Attendant - Scarlett ALLAN [id number] Urea nitrogen [Mass/Vol] 9 mg/dL Normal 7-17 [facility] Comment on above: Performed By: #### 2 1198-7, #### [facility] [address] [place] [address] Hospital Attendant - Scarlett ALLAN [id number] HCG BLOODon 08-15-2023 HCG.beta subunit Qn 8038 m[IU]/mL High 1-3 [facility] Comment on above: Performed By: #### 2 11987, #### [facility] [address] [place] [address] Hospital Attendant - Scarlett ALLAN [id number] HCG.beta subunit Qnon 2023 [facility] HCG INTERPRETATION T he expected values were calculated non-parametrically and represent the central 95% of the population. When borderline results are encountered, patient samples should be drawn 48 hours later. The concentration of HCG rises rapidly during early . Gestational Age Expected HCG Values 0.2-1 week 5-50 1-2 weeks 50-500 2-3 weeks 100-5000 3-4 weeks 500-10,000 4-5 weeks 1000-50,000 5-6 weeks 10,000-100,000 6-8 weeks 15,000-200,000 2-3 months 10,000-100,000 Normal [facility] Comment on above: Performed By: #### 2 1198-7, 42433-0 #### [facility] [address] [place] [address] Hospital Attendant - Scarlett ALLAN [id number] Vital Signs Date Time Vital Sign Value Performing Clinician Faci lity 10-23-2024 10:00-0400 Body temperature 98.4 [degF] Dr. Florentin Zamudio DO Work Phone: 2(887)388-079365 [place] [address] 10-23-2024 10:00-0400 Diastolic blood pressure 67 mm[Hg] Dr. Florentin Zamudio DO Work Phone: 2(745)375-564065 [place] [address] 10-23-2024 10:00-0400 Heart rate 100 /min Dr. Florentin Zamudio DO Work Phone: 1(668)544-736665 [place] [address] 10-23-2024 10:00-0400 Respiratory rate 16 /min Dr. Florentin Zamudio DO Work Phone: 6(717)426-426227 [place] [address] 10-23-2024 10:00-0400 SaO2% (BldA) [Mass fraction] 95 % Dr. Florentin Zamudio DO Work Phone: 8(437)740-795327 [place] [address] 10-23-2024 10:00-0400 Systolic blood pressure 102 mm[Hg] Dr. Florentin Zamudio DO Work Phone: 8(385)040-304427 [place] [address] 10-21-2024 20:39-0400 Inhaled oxygen flow rate 2 L/min Dr. Florentin Zamudio DO Work Phone: 4(779)692-204165 [place] [address] 10-20-2024 21:23-0400 Body height 167.[address] Florentin Zamudio DO Work Phone: 3(055)700-743765 [place] [address] 10-20-2024 21:23-0400 Body mass index (BMI) [Ratio] 31.8 kg/m2 Dr. Florentin Zamudio DO Work Phone: 9(700)249-944065 [place] [address] 10-20-2024 21:23-0400 Body weight 89.[address] Florentin Zamudio DO Work Phone: 1(072)962-032965 [place] [address] 10-20-2024 21:00-0400 Body temperature 99 [degF] Dr. Florentin Zamudio DO Work Phone: [facility] 10-20-2024 21:00-0400 Diastolic blood pressure 71 mm[Hg] Dr. Florentin Zamudio DO Work Phone: [facility] 10-20-2024 21:00-0400 Heart rate 89 /min Dr. Florentin Zamudio DO Work Phone: 4(385)472-609265 [place] [address] 10-20-2024 21:00-0400 Respiratory rate 16 /min Dr. Florentin Zamudio DO Work Phone: 7(927)812-950365 [place] [address] 10-20-2024 21:00-0400 SaO2% (BldA) [Mass fraction] 96 % Dr. Florentin Zamudio DO Work Phone: 3(009)953-759027 [place] [address] 10-20-2024 21:00-0400 Systolic blood pressure 109 mm[Hg] Dr. Florentin Zamudio DO Work Phone: 2(740)904-091565 [place] [address] 10-20-2024 17:26-0400 Body height 162.[address] Florentin Zamudio DO Work Phone: 8(507)413-482965 [place] [address] 10-20-2024 17:26-0400 Body mass index (BMI) [Ratio] 34.1 kg/m2 Dr. Florentin Zaumdio DO Work Phone: 7(332)444-116665 [place] [address] 10-20-2024 17:26-0400 Body weight 90.[address] Florentin Zamudio DO Work Phone: 0(486)544-219165 [place] [address] 09-26-2024 13:51-0400 Body temperature 98.3 [degF] Dr. Florentin Zamudio DO Work Phone: 3(539)365-808665 [place] [address] 09-26-2024 13:51-0400 Diastolic blood pressure 72 mm[Hg] Dr. Florentin Zamudio DO Work Phone: 7(444)202-140065 [place] [address] 09-26-2024 13:51-0400 Heart rate 93 /min Dr. Florentin Zamudio DO Work Phone: 6(959)855-984165 [place] [address] 09-26-2024 13:51-0400 Respiratory rate 18 /min Dr. Florentin Zamudio DO Work Phone: 6(455)137-454465 [place] [address] 09-26-2024 13:51-0400 SaO2% (BldA) [Mass fraction] 96 % Dr. Florentin Zamudio DO Work Phone: 7(534)297-292665 [place] [address] 09-26-2024 13:51-0400 Systolic blood pressure 114 mm[Hg] Dr. Florentin Zamudio DO Work Phone: 9(894)755-137765 [place] [address] 09-26-2024 06:00-0400 Body mass index (BMI) [Ratio] 35.5 kg/m2 Dr. Florentin Zamudio DO Work Phone: 4(990)738-415465 [place] [address] 09-26-2024 06:00-0400 Body weight 94.[address] Florentin Zamudio DO Work Phone: 6(301)931-245065 [place] [address] 09-25-2024 18:42-0400 Body height 162.[address] Florentin Zamudio DO Work Phone: 4(606)590-384065 [place] [address] 09-25-2024 16:26-0400 Body temperature 97.9 [degF] Dr. Florentin Zamudio DO Work Phone: 9(760)631-560465 [place] [address] 09-25-2024 16:26-0400 Diastolic blood pressure 69 mm[Hg] Dr. Florentin Zamudio DO Work Phone: 7(387)139-566165 [place] [address] 09-25-2024 16:26-0400 Heart rate 88 /min Dr. Florentin Zamudio DO Work Phone: 2(930)640-027265 [place] [address] 09-25-2024 16:26-0400 Respiratory rate 16 /min Dr. Florentin Zamudio DO Work Phone: [facility] 09-25-2024 16:26-0400 SaO2% (BldA) [Mass fraction] 95 % Dr. Florentin Zamudio DO Work Phone: [facility] 09-25-2024 16:26-0400 Systolic blood pressure 92 mm[Hg] Dr. Florentin Zamudio DO Work Phone: [facility] 09-25-2024 13:44-0400 Body height 162.[address] Florentin Zamudio DO Work Phone: [facility] Encounters Encounter Date Encounter Type Care Provider Facility Start: 11-13-2024 ambulatory Heather eRid ty:[facility] Start: 11-12-2024 Encounter for other preprocedural examination Ld Chacon [facility] Start: 11-12-2024 End: 11-12-2024 ambulatory Aquilino Collins [facility] Start: 11-03-2024 End: 11-03-2024 Patient encounter procedure Mikayla MORALES -[facility] Work Phone: Start: 11-03-2024 End: 11-03-[address] Florentin Zamudio DO Work Phone: [facility] Work Phone: Start: 11-03-2024 End: 11-03-[address] Aquilino Collins MD -[facility] Work Phone: Start: 11-03-2024 End: 11-03-[address] Florentin Zamudio DO Work Phone: [facility] Work Phone: Start: 10-28-2024 End: 10-28-[address] Aquilino Collins MD -[facility] Work Phone: Start: 10-28-2024 End: 10-28-[address] Florentin Zamudio DO Work Phone: [facility] Work Phone: Start: 10-28-2024 End: 10-28-2024 ambulatory Aquilino Collins Facility:[facility] Start: 10-23-2024 Non-patient / Non-visit Dr. Federico LOPEZ -[facility] Start: 10-22-2024 Non-patient / Non-visit Wendy Santana PA-C [facility] Start: 10-21-2024 [facility] Start: 10-21-2024 End: 10-21-2024 ambulatory Aquilino Collins Facility:[facility] Start: 10-21-2024 End: 10-21-2024 Non-patient / Non-visit Dr. Hao Hudson MD -[facility] Work Phone: Start: 10-20-2024 ambulatory Aquilino Collisn Facility :[facility] Start: 10-20-2024 End: 10-23-2024 Evaluation and management of inpatient Dr. Aquilino Collins MD -[facility] Work Phone: Start: 10-15-2024 End: 10-16-2024 Emergency department patient visit IRINA LOPEZ SERA [facility] Start: 10-09-2024 End: 10-09-2024 Patient encounter procedure Mikayla MORALES -[facility] Work Phone: Start: 10-09-2024 End: 10-09-2024 ambulatory Heather Ruby Facility:[facility] Start: 09-26-2024 Non-patient / Non-visit Dr. Ravindra Negron MD -[facility] Work Phone: Start: 09-26-2024 Non-patient / Non-visit Dr. Yesica Mayo MD -[facility] Start: 09-25-2024 Non-patient / Non-visit Ld Evans nd, DO -[facility] Start: 09-25-2024 End: 09-26-2024 Evaluation and management of inpatient Dr. Carlin Negron MD -[facility] Work Phone: Start: 09-25-2024 Admission to [facility] Ld Chacon DO -[facility] Work Phone: Start: 09-25-[address] Florentin Zamudio DO Work Phone: [facility] Work Phone: Start: 09-24-2024 End: 09-25-2024 Evaluation and management of inpatient CRYSTAL CNM UPTAIN [facility] Start: 08-15-2023 End: 08-15-[address] ROBIN Facility:[facility] Procedures Date Procedure Procedure Detail Performing Clinician Start: 10-28-2024 Radionuclide study of abdomen Dr. Florentin Zamudio DO Work Phone: Start: 10-23-[address] Florentin Zamudio DO Work Phone: Start: 10-21-2024 Total cholecystectomy and exploration of common bile duct Dr. Florentin Zamudio DO Work Phone: Start: 10-20-2024 Urnls dip stick/tablet reagent auto microscopy Dr. Florentin Zamudio DO Work Phone: Start: 10-20-[address] Florentin Zamudio DO Work Phone: Start: 10-20-2024 US scan of gallbladder Dr. Florentin Zamudio DO Work Phone: Start: 10-20-[address] Florentin Zamudio DO Work Phone: Start: 10-16-2024 Urinalysis IRINA ZAMORA Comment on above: Result Comment: URINALYSIS Performed By: #### 2 [id number] #### [facility] [address] Start: 09-26-[address] Florentin Zamudio DO Work Phone: Start: 09-25-[address] Florentin Zamudio DO Work Phone: Start: 09-25-[address] Florentin Zamudio DO Work Phone: Start: 09-25-[address] Florentin Zamudio DO Work Phone: History of cholecystectomy Hx of cholecys tectomy Dr. Florentin Zamudio DO Work Phone: Comment on above: partial with AYSE Plan of Treatment Date Care Activity Detail Author Start: 10-28-2024 Radionuclide study of abdomen [facility] Start: 10-23-2024 Patient discharge [facility] Start: 10-21-2024 Application of intermittent pneumatic compression device [facility] Start: 10-21-2024 Preoperative care [facility] Start: 10-20-2024 Incentive spirometry [facility] Start: 10-20-2024 Admission procedure [facility] Start: 10-20-2024 Ambulation without limitation [facility] Start: 10-20-2024 Assessment of risk of venous thromboembolism [facility] Start: 10-20-2024 Insertion of catheter into peripheral vein [facility] Start: 10-20-2024 Measuring intake and output [facility] Start: 10-20-2024 Providing care according to standard [facility] Start: 10-20-2024 Verification routine [facility] Start: 10-20-2024 Hospital admission, emergency, from emergency room, medical nature [facility] Start: 10-20-2024 End: 10-20-2024 [facility] Start: 10-20-2024 Bacteria identified in Urine by Culture Urine Culture [facility] Start: 10-20-2024 Urine culture [facility] Start: 09-26-2024 [facility] Start: 09-26-2024 Patient discharge [facility] Start: 09-25-2024 Application of intermittent pneumatic compression device [facility] Start: 09-25-2024 Following clinical pathway protocol [facility] Start: 09-25-2024 Assessment of risk of venous thromboembolism [facility] Start: 09-25-2024 Documentation procedure [facility] Start: 09-25-2024 Incentive spirometry [facility] Start: 09-25-2024 Insertion of catheter into peripheral vein [facility] Start: 09-25-2024 Measuring intake and output [facility] Start: 09-25-2024 Providing care according to standard [facility] Start: 09-25-2024 Provision of activity privileges [facility] Start: 09-25-2024 Referral to gastroenterology service [facility] Start: 09-25-2024 Referral to general surgeon [facility] Start: 09-25-2024 [facility] Start: 09-25-2024 Admission procedure [facility] Start: 09-25-2024 Verification routine [facility] Start: 09-25-2024 End: 09-25-2024 Endoscopic retrograde cholangiopancreatography [facility] Start: 09-25-2024 Fluoroscopic guidance O.R. Fluoro for C-Arm [facility] Start: 09-25-2024 Hospital admission, emergency, from emergency room, medical nature [facility] Start: 09-25-2024 Patient referral to dietitian [facility] Alanine aminotransfe rase [Enzymatic activity/volume] in Serum or Plasma [facility] Albumin [Mass/volume ] in Serum or Plasma [facility] Alkaline phosphatase [Enzymatic activity/volume] in Serum or Plasma [facility] Anion gap in Serum or Plasma [facility] Bilirubin, total measurement [facility] BUN/Creatinine ratio [facility] Calcium [Mass/volume ] in Serum or Plasma [facility] Carbon dioxide, tota l [Moles/volume] in Central venous blood [facility] Creatinine [Mass/vol ume] in Serum or Plasma [facility] Erythrocyte mean cor puscular volume determination [facility] Glucose [Mass/volume ] in Serum or Plasma [facility] Hematocrit [Volume F raction] of Blood [facility] Hemoglobin [Mass/volume] in Blood [facility] Leukocytes [#/volume] in Blood [facility] Mean corpuscular hem oglobin concentration determination [facility] Mean corpuscular hem oglobin determination [facility] Measurement of renal function [facility] Neutrophil count [facility] Neutrophil percent d ifferential count [facility] Patient referral [facility] Work Phone: Platelets [#/volume] in Blood [facility] Potassium measurement [facility] Red blood cell count [facility] Red cell distributio n width determination [facility] Serum chloride measurement [facility] Sodium measurement [facility] Total protein measurement [facility] Urea nitrogen [Mass/ volume] in Serum or Plasma [facility] Payers Date Payer Category Payer Self-pay 2024 Unknown [id number] 1999 Unknown [id number] 2.16.8 [id number] Unknown [id number] 2.16.8 40.1.032680.3.579.2.462 Unknown [id number] 2.16.8 40.1.328367.3.579.2.462 Unknown [id number] 2.16.8 40.1.562010.3.579.2.462 Unknown [id number] 2.16.8 40.1.923094.3.579.2.462 Unknown [id number] 2.16.8 40.1.092709.3.579.2.462 Unknown [id number] 2.16.8 40.1.548996.3.579.2.462 Unknown [id number] 2.16.8 40.1.293708.3.579.2.462 Unknown [id number] 2.16.8 40.1.324929.3.579.2.462 Unknown [id number] 2.16.8 40.1.088962.3.579.2.462 Unknown [id number] 2.16.8 40.1.008665.3.579.2.462 Unknown [id number] 2.16.8 40.1.395185.3.579.2.462 Unknown [id number] 2.16.8 40.1.619468.3.579.2.462 Unknown [id number] 2.16.8 40.1.288331.3.579.2.462 Unknown [id number] 2.16.8 40.1.028622.3.579.2.462 Unknown [id number] 2.16.8 40.1.428109.3.579.2.462 Unknown [id number] 2.16.8 40.1.734150.3.579.2.462 Unknown [id number] 2.16.8 40.1.365552.3.579.2.462 Social History Date Type Detail Facility Start: 09-25-2024 End: 10-20-2024 Tobacco smoking status NHIS Never smoked tobacco (finding) [facility] Start: 09-25-2024 End: 09-26-2024 Sex Female (finding) [facility] Start: 2000 Sex Assigned At Female [facility] Tobacco smoking consumption unknown [employer]; [employer] Work Phone: NEGATED: Highlighted row Not [facility] NEGATED: Highlighted row No Social History Information Available No Social History Information Available [employer]; [employer] Work Phone: Medical Equipment Procedure Code Equipment Code Equipment Origin al Text Equipment Identifier Dates ERCP (endoscopic retrograde cholangiopancreatog jossy) ([id number]) Polymeric biliary stent, non-bioabsorbable ()[id number] FDA Start: 09-25-2024 ERCP (endoscopic retrograde cholangiopancreatog jossy) Polymeric pancreatic stent, non-bioabsorbable ()[id number] FDA Start: 09-25-2024 Goals Date Patient Goal Desired Activity /State Functional Status Date Assessment Result Facility 10-23-2024 Functional status Ambulates [facility] Work Phone: 09-26-2024 Functional status Up ad hemalatha [facility] Work Phone: 09-26-2024 Functional status None [facility] Work Phone: Mental Status Date Assessment Result Facility 10-23-2024 Cognitive function Voice/Name [facility] Work Phone: 10-20-2024 Cognitive function Level Of Cons ciousness Awake;Alert;Appropriate;Follow s Commands [facility] Work Phone: 09-26-2024 Cognitive function Level Of Cons ciousness Awake;Alert;Appropriate [facility] Work Phone: 09-26-2024 Cognitive function Voice/Name [facility] Work Phone: Clinical Notes 08-15-2023 to 10-23-2024 Note Date & Type Note Facility 10-23-2024 Discharge summary [facility] 10-23-2024 Note [facility] Medical Records Department [address] [place] [address] Discharge Summary 10/23/24 1305 MR#: [id number] Acct: [id number] Name: LUCY CROWLEY V Rep #: [id number] : 2000 24 From: Aquilino Collins MD PCP: Dr. Heather Ruby DO Status:ADM IN [facility] Prov[facility] Date of Admission: 10/20/24 Date of Discharge: 10/23/24 Primary Care Physician: Dr. Heather Ruby DO Reason For Visit: ACUTE CHOLECYSTITIS Diagnosis Discharge Diagnosis (1) Gallstone: Status: Acute Code(s): K80.20 - Calculus of gallbladder without cholecystitis without obstruction Qualifiers: Cholecystitis presence: with cholecystitis Cholecystitis acuity: acute Biliary obstruction: without biliary obstruction Qualified Code(s): K80.00 - Calculus of gallbladder with acute cholecystitis without obstruction (2) Acute cholecystitis: Status: Acute Code(s): K81.0 - Acute cholecystitis Plan I have been consulted in conjunction with Dr. Collins. He has independently evaluated this patient. Patient is a 24 y/o F who presented with a 6 day history of worsening right upper quadrant abdominal pain and fever. She has a history of ERCP with gallstone removal and stent placement x [address] Chacon. She was not scheduled to have her gallbladder removed until January. With the patient's persistent right upper quadrant abdominal pain associated with eating and RUQ u/s consistent with acute cholecystitis, I believe it is in the patient's benefit to have her gallbladder removed. Dr. Collins will plan to perform a laparoscopic cholecystectomy with intraoperative cholangiogram today. Procedure details, risks and benefits have been explained to the patient and her by myself and Dr. Collins. Patient will continue to keep her ERCP with stent removal at the end of November. Patient and her have had the opportunity to ask and have questions answered. Patient verbally understands and agrees with the plan. Thank you for allowing us to participate in this patient's care. Medications at Discharge Home Medications oxycodone-acetaminophen 5 mg-325 mg tablet (Percocet) 1 tab PO Q8H PRN pain 3 days #7 tabs 10/23/24 Hospital Course Operations cholecystecomy Procedures None Summary of Care Provided Minutes Spent on Discharge: 15 Hospital Course: The patient is a 24-year-old female who is 4 weeks . She developed choledocholithiasis during her at I believe 38 weeks. She was induced and then underwent an ERCP and had a stent placed. She was initially offered cholecystectomy during that hospitalization but declined and stated that she would rather have this performed at a hospital closer to home. She initially did well for several weeks but then developed abdominal pain for the past week. She presented to the emergency department at [facility] with right upper quadrant pain and fevers. Ultrasound showed a gallbladder wall thickening and pericholecystic fluid. Labs were unremarkable. She was subsequently admitted with plans for cholecystectomy. She was brought to the operating room and a very thickened inflamed gallbladder was identified. Dissection of the infundibulum to identify the cystic duct and cystic artery were not able to be performed. Due to concern for possible bile duct injury it was decided to do a subtotal cholecystectomy rather than risk injury. This was performed without incident. A drain was left in place. She did well postoperatively. We have kept her on antibiotics white count remains normal. She remains afebrile. AYSE drain output has remained serosanguineous. She looks good today and is hoping to go home today if possible. I think this is certainly possible. Her drain output has been around 60 cc and is serosanguineous. I will discharge her home with the drain with plans to remove the drain in office next week Physical Exam Narrative She is alert and oriented x 3. She is in no acute distress. Abdomen is soft And appropriately tender. AYSE drain with serosanguineous output Weight / BMI Weight Weight: 197 lb 8.547 oz Body Mass Index (BMI) 31.8 ABG / Lab / Microbiology Data 10/23/24 05:15 10/23/24 05:15 Laboratory: Laboratory Results - last 24 hr 10/23/24 05:15: WBC 11.4 H, RBC 3.64 L, Hgb 11.1 L, Hct 32.9 L, MCV 90.4, MCH 30.5, MCHC 33.7, RDW Std Deviation 39.5, RDW Coeff of Rebeca 11.9, Plt Count 271, MPV 9.9, Immature Gran % (Auto) 1.000 H, Neut % (Auto) 57.9, Lymph % (Auto) 30.5, Mathews % (Auto) 4.4, Eos % (Auto) 5.8 H, Baso % (Auto) 0.4, Absolute Neuts (auto) 6.6, Absolute Lymphs (auto) 3.48, Nucleated RBC % 0, Sodium 142, Potassium 3.4, Chloride 107, Carbon Dioxide 24.3, Anion Gap 11, BUN 13, Creatinine 0.76, Estim Creat Clear Calc 127.58, Est GFR (MDRD) Non-Af 111, BUN/Creatinine Ratio 17.3, Glucose 83, Calcium 8.6, Total (more content not included)... [facility] 10-22-2024 Progress note Note Date/Time October 22, 2024 7:36a m [facility] Medical Records Department [address] [place] [address] Progress Note - Surgery 10/22/24 0650 MR#: [id number] Acct: [id number] Name: LUCY CROWLEY V Rep #:[id number] : 2000 24 From: Wendy MORALES PA-C PCP: Dr. Heather Ruby, DO Status:A DM IN Location: MS3 NF015-2 Subjective Subjective Patient evaluated resting comfortably in bed. She notes right upper quadrant pain with movement otherwise no discomfort noted. She denies any nausea, vomiting, fever. She tolerated a transitional diet last night. Objective Data Objective Data Vital Signs: Vital Signs Temp Pulse Resp BP Pulse Ox O2 Del Method O2 Flow Rate 97.7 F L 64 15 111/75 96 Room Air 2 10/22/24 01:03 10/22/24 01:03 10/22/24 01:03 10/22/24 01:03 10/22/24 01:03 10/22/24 02:00 10/21/24 20:39 Oxygen Flow Rate (L/min) 2 Oxygen Delivery Method Room Air Weight: 197 lb 8.547 oz Body Mass Index (BMI) 31.8 Intake & Output: Intake and Output for Last 24 Hours 10/20/24 10/21/24 10/22/24 23:59 23:59 23:59 Intake Total 112 / 162 2938 / 3038 350 / 350 Output Total 530 / 580 880 / 880 Balance 112 / 162 2408 / 2458 -530 / -530 Lab / Micro Data 10/22/24 06:05 10/22/24 06:05 Labs: Laboratory Results - last 24 hr 10/21/24 05:20: PT 13.4, INR 1.0, APTT 35.3, Sodium 137, Potassium 3.3, Kztudttx179, Carbon Dioxide 23.1, Anion Gap 12, BUN 8, Creatinine 0.68 L, Estim Creat Clear Calc 142.59, Est GFR (MDRD) Non-Af 124, BUN/Creatinine Ratio 12.2, Fdihuyn67 L, Calcium 8.7, Total Bilirubin 0.46, AST 13, ALT 10, Alkaline Phosphatase 95, Total Protein 6.5, Albumin 3.4 L, Globulin 3.1, Albumin/Globulin Ratio 1.1 10/21/24 08:45: Urine Test Negative 10/22/24 06:05: WBC 11.8 H, RBC 3.83 L, Hgb 11.8 L, Hct 34.5 L, MCV 90.1, MCH 30.8, MCHC 34.2, RDW Std Deviation 38.6, RDW Coeff of Rebeca 11.8, Plt Count 228, MPV 10.2, Immature Gran % (Auto) 0.900, Neut % (Auto) 82.0 H, Lymph % (Auto) 11.5 L, Mathews % (Auto) 5.3, Eos % (Auto) 0.0, Baso % (Auto) 0.3, Absolute Neuts (auto) 9.7 H, Absolute Lymphs (auto) 1.35, Nucleated RBC % 0 Physical Exam GI GI Narrative: Abdomen- soft, slightly distended. Incisions c/d/i. AYSE drain with bright red bloody fluid noted. No bilious output noted in the AYSE. Assessment & Plan Assessment/Plan (1) Gallstone: QUALIFIERS: Cholecystitis presence: with cholecystitis Cholecystitis acuity: acute Biliary obstruction: without biliary obstruction Qualified Code(s): K80.00 - Calculus of gallbladder with acute cholecystitis without obstruction (2) Acute cholecystitis: PLAN: Plan I am following this patient in conjunction with Dr. Collins. Labs reviewed. WBC slightly elevated AYSE drain was stripped Leave drain in place for today. Discussed with patient that she may go home witha drain Plan to monitor patient at least for another day Hopeful discharge tomorrow Continue to encourage ambulation and I.S. Charges/Coding Visit Charges Inpatient E&M: 60012 Subs Hosp L1 (post-op) 10/22/24 0736 <Electronically signed by Wendy MORALES PA-C> Cosigner Signature (if applicable): CC: ~ Signed [facility] Work Phone: 1(305) 135-858105-15-2025 Progress note [facility] Medical Records Department [address] [place] [address] Progress Note - Surgery 10/22/24 0650 MR#: [id number] Acct: [id number] Name: LUCY CROWLEY V Rep #:[id number] : 2000 From: Wendy MORALES PA-C PCP: Dr. Heather Ruby, DO Status:A DM IN Location: MS3 ST552-3 Subjective Subjective Patient evaluated resting comfortably in bed. She notes right upper quadrant pain with movement otherwise no discomfort noted. She denies any nausea, vomiting, fever. She tolerated a transitional diet last night. Objective Data Objective Data Vital Signs: Vital Signs Temp Pulse Resp BP Pulse Ox O2 Del Method O2 Flow Rate 97.7 F L 64 15 111/75 96 Room Air 2 10/22/24 01:03 10/22/24 01:03 10/22/24 01:03 10/22/24 01:03 10/22/24 01:03 10/22/24 02:00 10/21/24 20:39 Oxygen Flow Rate (L/min) 2 Oxygen Delivery Method Room Air Weight: 197 lb 8.547 oz Body Mass Index (BMI) 31.8 Intake & Output: Intake and Output for Last 24 Hours 10/20/24 10/21/24 10/22/24 23:59 23:59 23:59 Intake Total 112 / 162 2938 / 3038 350 / 350 Output Total 530 / 580 880 / 880 Balance 112 / 162 2408 / 2458 -530 / -530 Lab / Micro Data 10/22/24 06:05 10/22/24 06:05 Labs: Laboratory Results - last 24 hr 10/21/24 05:20: PT 13.4, INR 1.0, APTT 35.3, Sodium 137, Potassium 3.3, Wpyelqzf532, Carbon Mhothye58.1, Anion Gap 12, BUN 8, Creatinine 0.68 L, Estim Creat Clear Calc 142.59, Est GFR (MDRD) Non-Af 124, BUN/Creatinine Ratio 12.2, Gpcocxu52 L, Calcium 8.7, Total Bilirubin 0.46, AST 13, ALT 10, Alkaline Phosphatase 95, Total Protein 6.5, Albumin 3.4 L, Globulin 3.1, Albumin/Globulin Ratio 1.1 10/21/24 08:45: Urine Test Negative 10/22/24 06:05: WBC 11.8 H, RBC 3.83 L, Hgb 11.8 L, Hct 34.5 L, MCV 90.1, MCH 30.8, MCHC 34.2, RDW Std Deviation 38.6, RDW Coeff of Rebeca 11.8, Plt Count 228, MPV 10.2, Immature Gran % (Auto) 0.900, Neut % (Auto) 82.0 H, Lymph % (Auto) 11.5 L, Mathews % (Auto) 5.3, Eos % (Auto) 0.0, Baso % (Auto) 0.3, Absolute Neuts (auto) 9.7 H, Absolute Lymphs (auto) 1.35, Nucleated RBC % 0 Physical Exam GI GI Narrative: Abdomen- soft, slightly distended. Incisions c/d/i. AYSE drain with bright red bloody fluid noted. Nobilious output noted in the AYSE. Assessment & Plan Assessment/Plan (1) Gallstone: QUALIFIERS: Cholecystitis presence: with cholecystitis Cholecystitis acuity: acute Biliary obstruction: without biliary obstruction Qualified Code(s): K80.00 - Calculus of gallbladder with acute cholecystitis without obstruction (2) Acute cholecystitis: PLAN: Plan I am following this patient in conjunction with Dr. Collins. Labs reviewed. WBC slightly elevated AYSE drain was stripped Leave drain in place for today. Discussed with patient that she may go home witha drain Plan to monitor patient at least for another day Hopeful discharge tomorrow Continue to encourage ambulation and I.S. Charges/Coding Visit Charges Inpatient E&M: 78698 Subs Hosp L1 (post-op) 10/22/24 0736 Cosigner Signature (if applicable): CC: ~ Signed [facility]05-14-2025 Consult note Author Dorian Daily [facility] Note Date/Time October 21, 2024 5:52p [facility] Medical Records Department [address] [place] [address] Anesthesia Postop Eval II 10/21/24 1752 MR#: [id number] Acct: [id number] Name: LUCY CROWLEY V Rep #:[id number] : 2000 24 From: Dorian Daily MD PCP: Dr. Heather Ruby, DO Status:A DM IN Y Race: C Location: [facility] -1 Anesthesia Postop Eval I Sum Postop Eval Completion status Anesthesia document: Postop Eval 1 completed: Yes Anesthesia Postop Eval I Summary Anesthesia Postop Eval I Summary: Anesthesia Postop Eval I: Assessment Summary Airway patent Yes 10/21/24 16:16 MARKETING OPERATIONS SPECIALIST.SKOBY Spontaneous unlabored Yes 10/21/24 16:16 MARKETING OPERATIONS SPECIALIST.SKOBY respirations Mental status Awake,Calm 10/21/24 16:16 MARKETING OPERATIONS SPECIALIST.SKOBY nausea No 10/21/24 16:16 MARKETING OPERATIONS SPECIALIST.JABIEROBY Vomiting No 10/21/24 16:16 MARKETING OPERATIONS SPECIALIST.JABIEROBManuel Anesthesia Postop Eval I: Fluid Summary Crystalloid volume administer 1,400 10/21/24 16:16 MARKETING OPERATIONS SPECIALIST.JABIEROBY (ml) Colloids volume administered ( ml) Blood Product volume administered (ml) Total IV fluid infused 1,400 10/21/24 16:16 MARKETING OPERATIONS SPECIALIST.SAEED Anesthesia Postop Eval I: Summary Notes Anesthesia Complication No 10/21/24 16:16 MARKETING OPERATIONS SPECIALIST.JABIEROBManuel Anesthesia Complication Comment: Post-operative progress note Anesthesia: Postop Eval II Evaluation Mental status: Awake and Calm Pain Level: 1 nausea: No Vomiting: No Complications Anesthesia Complication: No 10/21/24 0997 <Electronically signed by Dorian ramsey MD> Date _ Dorian Daily MD Cosigner Signature: Date CC: ~ Signed [facility] Work Phone: 1(414) 774-351005-14-2025 Consult note Author Christa Smith [facility] Note Date/Time October 21, 2024 4:17p [facility] Medical Records Department [address] [place] [address] Anesthesia Postop Eval I 10/21/24 1616 MR#: [id number] Acct: [id number] Name: LUCY CROWLEY V Rep #:[id number] : 2000 24 From: Christa prince CRNA PCP: Dr. Heather Ruby, DO Status:A DM IN Y Race: C Location: [facility] MS319 -1 Anesthesia: Postop Eval I Current Vital Signs Temperature: 98.8 F Pulse Rate: 104 Blood Pressure: 112/70 Respiratory Rate: 16 Pulse Ox: 97 Oxygen Delivery Method: Room Air Assessment Airway patent: Yes Spontaneous unlabored respirations: Yes Mental status: Awake and Calm nausea: No Vomiting: No Anesthesia Complication: No Fluid Hydration Crystalloid volume administer (ml): 1,400 Total IV fluid infused: 1,400 Progress Note Anesthesia document: Postop Eval 1 completed: Yes 10/21/24 1617 <Electronically signed by Christa salgado MARKETING OPERATIONS SPECIALIST> Date _ Christa Smith MARKETING OPERATIONS SPECIALIST Cosigner Signature: Date CC: ~ Signed [facility] Work Phone: 1(895) 284-779805-14-2025 Consult note [facility] Medical Records Department [address] [place] [address] Anesthesia Postop Eval II 10/21/24 1752 MR#: [id number] Acct: [id number] Name: LUCY CROWLEY V Rep #:[id number] : 2000 From: Dorian Daily MD PCP: Dr. Heather Ruby, DO Status:A DM IN Y Race: C Location: [facility] MS319 -1 Anesthesia Postop Eval I Sum Postop Eval Completion status Anesthesia document: Postop Eval 1 completed: Yes Anesthesia Postop Eval I Summary Anesthesia Postop Eval I Summary: Anesthesia Postop Eval I: Assessment Summary Airway patent Yes 10/21/24 16:16 MARKETING OPERATIONS SPECIALIST.SKOBY Spontaneous unlabored Yes 10/21/24 16:16 MARKETING OPERATIONS SPECIALIST.SKOBY respirations Mental status Awake,Calm 10/21/24 16:16 MARKETING OPERATIONS SPECIALIST.SKOBY nausea No 10/21/24 16:16 MARKETING OPERATIONS SPECIALIST.SKOBY Vomiting No 10/21/24 16:16 MARKETING OPERATIONS SPECIALIST.SKOBY Anesthesia Postop Eval I: Fluid Summary Crystalloid volume administer 1,400 10/21/24 16:16 MARKETING OPERATIONS SPECIALIST.SKOBY (ml) Colloids volume administered ( ml) Blood Product volume administered (ml) Total IV fluid infused 1,400 10/21/24 16:16 MARKETING OPERATIONS SPECIALIST.SAEED Anesthesia Postop Eval I: Summary Notes Anesthesia Complication No 10/21/24 16:16 MARKETING OPERATIONS SPECIALIST.SKOBY Anesthesia Complication Comment: Post-operative progress note Anesthesia: Postop Eval II Evaluation Mental status: Awake and Calm Pain Level: 1 nausea: No Vomiting: No Complications Anesthesia Complication: No 10/21/24 1752 braulio LOPEZ> Date _ Dorian Daily MD Cosigner Signature: Date CC: ~ Signed [facility]05-14-2025 Procedure note [facility] Medical Records Department [address] [place] [address] Operative Report 10/21/24 1632 MR#: [id number] Acct: [id number] Name: LUCY CROWLEY V Rep #:[id number] : 2000 From: Aquilino Collins MD PCP: Dr. Heather Ruby DO Status:A DM IN Location: [place] [id number] Problems Associated Problem List Diagnoses (1) Acute cholecystitis: Procedures Digestive 40xxx-49xxx: 77046 Laparoscopic cholecystectomy (Laparoscopic subtotal cholecystectomy without cholangiograms) Operative Report (Standard) Operative Information Date of Procedure: 10/21/24 Pre-Operative Diagnosis: Acute on chronic cholecystitis Post-Operative Diagnosis: Same Surgery/Procedure Performed: Laparoscopic subtotal cholecystectomy back end engineer: Yes Clinic Cma: Dillan Means Tasks completed by first coat sander: Closing, Trocar and Retracting Additional economic research assistant?: No Type of Anesthesia: General and Local RN Documented Start/Stop Times: Operation Date: 10/21/24 13:30 Case Time Into Pre-Op 10/21/24 12:32 Out of Pre-Op 10/21/24 13:53 Anesthesia Start 10/21/24 14:00 Into Room 10/21/24 14:00 Procedure Start 10/21/24 14:22 Procedure End 10/21/24 16:05 Anesthesia End 10/21/24 16:10 Out of Room 10/21/24 16:10 Into Recovery 10/21/24 16:14 Procedure Start Time: 14:22 Procedure Stop Time: 16:05 Select all DRAINS/GRAFTS/IMPLANTS that apply: Drains Drain details: 10 Yi fully fluted flat AYSE drain x 1 and Tissue Tissue details: Portion of gallbladder with gallbladder contents Special Medications: Receiving Zosyn IV scheduled Estimated Blood Loss: 40 mL Specimen collected: Yes Description of specimen(s) removed: Portion of gallbladder and contents Description of surgery: The patient is a 24-year-old female who recently delivered her third child abouta month ago. Her delivery was induced as she had developed choledocholithiasis and had elevated LFTs. After she delivered, she underwent an ERCP by Dr. Chacon. The common bile duct stones were removed and stents were placed. She was advised to have her cholecystectomy performed during that hospitalization however she stated that she would prefer to have this performed closer to home. Patient was initially doing verywell up until about 5 days ago when she began having abdominal pain and low-grade fevers. She presented to [facility] last evening. She was seen and evaluated by the ER staff. All of her blood work was pretty unremarkable however she had 102 temperatures at home and her gallbladder ultrasound revealed gallbladder wall thickening. She was subsidy admitted with plans for cholecystectomy today. We discussed the detailsof the planned procedure as well as risks benefits and alternatives. She wishedto proceed. She was brought to the operating today following informed consent. Preoperative antibiotics were being given. She was placed supine on the operative table with arms outstretched and arm boards. A general endotracheal anesthesia was induced. The abdomen was prepped and draped in the usual manner. She had a previous midline incision and so the initial trocar to be placed was a 5 mm trocar placed optically in the right upper quadrant. This was placed without incident. Once in place the abdomen was then fully insufflated with CO2gas. A 5 mm 0 degree scope was inserted. There were no signs of bowel or vascular injury. She actually had no adhesions along the midline. I placed another 5 mm trocar just below the umbilicus. This was placed without incident. The 5 mm scopewas then relocated to this location. An additional right upper quadrant trocar was placed under direct visualization along with a 10 mm trocar placed easily in the epigastric area. Once in place the patient was positioned such that there was head up positioning as well as some turn to the left to improve visualization. The right upper quadrant was visualized. The gallbladder was completely encased in dense chronically adherent omentum. I wasthen able to begin to peel away some of this densely adherent omentum off the undersurface of the gallbladder. More of the gallbladder was able to be visualized. An aspirating needle was then used to aspirate quite a bit of bile from the gallbladder to help facilitate grasping of the gallbladder. This was reflected in somewhat of a cephalad direction. I was then able to dissect the adhesed omentum off of the gallbladder using blunt dissection with the suction size tester tip. There was densely adherent omentum to the lateral aspect of the gallbladderand the inferior liver edge. This was taken down using electrocautery and a J-hook. The anterior surface of the gallbladder was then further exposed was actually able to get down to close to the infundibulum however at this point the thick adherent rind did not easily separate from the gallbladder infundibulum whatsoever. I did an attempt to incise this in hopes of being able to develop a plane however this was extremely adherent and denselyfibrotic. At this point the decision was made to pursue a subtotal cholecystectomy rather than risk bile duct injury with further dissection in thescarredinfundibulum region. I felt that this was the safest option given this scenario. The subtotal cholecystectomy was performed by having the economic research assistant grasped the fundus of the gallbladder. Just below this I then opened up the anterior wall of the gallbladder using harmonic scalpel. This was carried out transversely across the width of the gallbladder. I was then able to suction out the inner lumen of the gallbladder to suck out the bile. At this point the harmonic scalpel was then used to slowly take down the anterior wall of the gallbladder from a top-down approach. As we went further inferiorly stones wereable to be identified. These were grasped with a stone scoop. All of the stones were removed. Once we got down close to the infundibulum, the harmonic scalpel was again taken transversely across the anterior wall of the gallbladderthus fully exposing the back wall of the gallbladder. The gallbladder wall was extremely thickened by at least a centimeter. All stones and bilious contents were removed from the gallbladder. There was no backflow of bile noted as patient had a recent sphincterotomy and still has a stent in place. Hemostasis was excellent. The gallbladder wall was then placed into a bag and brought out through the 10 mm trocar site. The right upper quadrant was then co piously irrigated with a total of 3 L of saline until clear. Again hemostasis was excellent. A 10 flat fully fluted AYSE drain was laid in the gallbladder fossa. This drain was brought out through one of the right sided trocar sites. This was sutured to the skin. The fascia of the 10 mm trocar site was closed using 0PDS with a of the fascial closure device. The remaining trocars were opened up and insufflation was allowed to escape. Local anesthetic was injected into eachof the incisions and the incisions were then closed with 4-0 Vicryl. Skin glue was applied as dressing. She was awakened fromanesthesia and taken to recoveryin good condition. Surgical Findings: Extremely inflamed gallbladder (acute and chronic). Very thickened gallbladder wall Complications Complications: No Admit VTE Documentation VTE Mechan Device Prophylaxis: SCD's VTE Pharm Prophylaxis ordered?: No Reason prophylaxis not ordered: Treatment Not Indicated 10/21/24 1649 Cosigner Signature (if applicable): CC: Dr. Heather Ruby DO; Dr. Aquilino Collins MD~ Signed [facility]05-14-2025 Consult note [facility] Medical Records Department [address] [place] [address] Anesthesia Postop Eval I 10/21/24 1616 MR#: [id number] Acct: [id number] Name: LUCY CROWLEY V Rep #:[id number] : 2000 From: Christa prince CRNA PCP: Dr. Heather Ruby DO Status:A DM IN Y Race: C Location: MS3 [id number] -1 Anesthesia: Postop Eval I Current Vital Signs Temperature: 98.8 F Pulse Rate: 104 Blood Pressure: 112/70 Respiratory Rate: 16 Pulse Ox: 97 Oxygen Delivery Method: Room Air Assessment Airway patent: Yes Spontaneous unlabored respirations: Yes Mental status: Awake and Calm nausea: No Vomiting: No Anesthesia Complication: No Fluid Hydration Crystalloid volume administer (ml): 1,400 Total IV fluid infused: 1,400 Progress Note Anesthesia document: Postop Eval 1 completed: Yes 10/21/24 1617 damian MARKETING OPERATIONS SPECIALIST> Date _ Christa Quintanaadrianlatashaniki MARKETING OPERATIONS SPECIALIST Cosigner Signature: Date CC: ~ Signed [facility]05-14-2025 Consult note Author Saran Fragoso [facility] Note Date/Time October 21, 2024 12:39 pm [facility] Medical Records Department [address] [facility] [place] [address] Pre-Anesthesia Evaluation 10/21/24 1238 MR#: [id number] Acct: [id number] Name: LUCY CROWLEY V Rep #:[id number] : 2000 24 From: Saran Fragoso MD PCP: Dr. Heather Ruby, DO Status:A DM IN Y Race: C Location: [place] [id number] -[id number] ASA Classification* ASA Classification ASA Classification: 2 Assessment & Plan Anesthesia* Anesthesia Assessment Anesthesia Assessment: Discussed sedation and/or anesthesia options, risks, benefits, and alternatives with patient/parents/legal guardian/POA. Questions invited. The patient/parents/legal guardian/POA seems to understand and agrees to proceedwith anesthesia plan. Reviewed the physical assessment, medical history, allergy history and patient home medications list prior to surgery/procedure/anesthetic and documented any changes. Performed airway and anesthesia risk assessments. Anesthesia Type Anesthesia Type: General Anesthesia Focused Assessment* Temperature: 98.6 F Pulse Rate: 79 Blood Pressure: 105/69 Respiratory Rate: 18 Pulse Ox: 96 Airway Assessment Mouth opens: >3 cm Mallampati Score: II Focused Labs Anesthesia Preop lab: CBC WBC 8.5 K/mm3 (4.4-11.0) 10/21/24 05:20 10/21/24 RBC 3.76 M/mm3 (4.2-5.4) L 10/21/24 05:20 10/21/24 Hgb 11.5 g/dL (12.0-15.0) L 10/21/24 05:20 5 Hct 34.1 % (37-47) L 10/21/24 05:20 10/21/24 Plt Count 217 K/mm3 (150-450) 10/21/24 05:20 10/21/24 CHEMISTRY Potassium 3.3 mmol/L (3.3-5.1) 10/21/24 05:20 10/21/24 Sodium 137 mmol/L (133-145) 10/21/24 05:20 10/21/24 BUN 8 mg/dL (4-19) 10/21/24 05:20 10/21/24 Creatinine 0.68 mg/dL (0.70-1.20) L 10/21/24 05:20 Glucose 69 mg/dL (70-99) L 10/21/24 05:20 10/21/24 COAG PT 13.4 SECONDS (11.7-14.9) 10/21/24 05:20 Urine Test Negative Negative 10/21/24 08:45 10/21/24 Pre-Assessment Diagnosis/Proposed Procedure Planned Operative Procedure(s): Laparoscopic cholecystectomy. 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 When Was Last Pacemaker Check QUESTION #4 FULL TEXT: You/Your Family Experience fever (hyperthermia) with Anesthesia Last Oral Intake Last Oral intake: Last Oral Intake NPO since Meds taken in AM with sips of water? 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: PONV - ammunition and explosives handler Female HX of Motion Sickness HX of N/V After Surgery Non-Smoker Duration of Surgery greater than 60 minutes Number of Risk Factors PONV Score Height & Weight Height & Weight: Anesthesia: Height & Weight Height 5 ft 6 in 10/20/24 21:23 Weight: 89.6 kg 10/20/24 21:23 Body Mass Index (BMI) 31.8 10/20/24 21:23 Respiratory Assessment Respiratory Assessment - ammunition and explosives handler: Respiratory Tract Infection Hx - ammunition and explosives handler Hx Respiratory Tract Infection STOP Sleep Apnea STOP Sleep Apnea - ammunition and explosives handler: STOP Sleep Apnea - ammunition and explosives handler Hx Hypertension No 10/20/24 21:23 Hx Sleep Apnea No 10/20/24 21:23 CPAP BIPAP Do you snore loudly (louder No 10/20/24 21:23 than talking or can be heard Do you often feel tired/ No 10/20/24 21:23 fatigued/ sleepy during daytime? Has anyone observed you stop No 10/20/24 21:23 breathing during sleep? STOP Results Negative 10/20/24 21:23 QUESTION #5 FULL TEXT : Do you snore loudly (louder than talking or can be heard through closed doors)? 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 Specify any problems Hx of Preganancy in last 3 Yes 10/20/24 21:23 Months Nurse Filling Out Transfusion [email or web address] 10/20/24 21:23 & Questions: Date: 10/20/24 10/20/24 21:23 Time: 21:29 10/20/24 21:23 Patient unable to answer at this time (ie. confused, unrespo /Reproduction History /Reproductive History - ammunition and explosives handler: /Reproductive Hx- ammunition and explosives handler Hx Now No 10/20/24 21:23 Gestational Age (in weeks): EDC: Hx Hx Para Hx Section SAB Yes 10/20/24 21:23 Active Medications Active Medications: Current Medications Generic Name Dose Route Start Last Admin Trade Name Freq PRN Reason Stop Dose Admin Acetaminophen 1,000 mg 10/20/24 22:00 10/21/24 04:05 Acetaminophen 500 Mg Tablet PO 1,000 mg Q8 GEOVANNA Administration Docusate Sodium 100 mg 10/20/24 20:46 Docusate Sodium 100 Mg Capsule PO BID PRN PRN Constipation Dextrose/Sodium Chloride 1,000 mls @ 90 mls/hr 10/20/24 21:00 10/21/24 10:20 Dextrose 5%/0.9% Nacl IV 90 mls/hr .Q11H7M GEOVANNA Administration Piperacillin Sod/Tazobactam 50 mls @ 12.5 mls/hr 10/21/24 06:00 10/21/24 10:29 Sod 3.375 gm/ Sodium Chloride IV Infused Q8 GEOVANNA Infusion Morphine Sulfate 2 - 4 mg 10/20/24 20:46 10/21/24 10:34 Morphine 2 Mg/Ml Syringe IV 2 mg Q3H PRN PRN Administration Pain Score 6-10 Morphine Sulfate 2 - 4 mg 10/20/24 20:54 Morphine 4 Mg/Ml Syringe IV Q3H PRN PRN Pain Score 6-10 Ondansetron HCl 4 mg 10/20/24 20:46 10/21/24 04:05 Ondansetron 4 Mg/2 Ml Vial IV 4 mg Q8H PRN PRN Administration NAUSEA/VOMITING Oxycodone HCl 5 mg 10/20/24 20:46 10/21/24 04:05 Oxycodone 5 Mg Tablet PO 5 mg Q4H PRN PRN Administration Pain Score 4-10 PFSH Medical History Biliary colic Home Medications ?Medication ?Instructions ?Recorded ?Last Taken ?Type NK 10/20/24 Unknown History Allergy/AdvReac Type Severity Reaction Status Date / Time No Known Allergies Allergy Verified 10/21/24 12:32 Family History Mother No problems noted. Father No problems noted. Surgical History Hx of appendectomy Social History household members: spouse, children and other details: 2 older children at home, 1 miscarriage, 1 09/24/24. Smoking Status: Never smoker alcohol intake: never substance use type: does not use Review of Systems (Anesthesia) ROS Narrative System reviewed and no additional complaints, except as documented. 10/21/24 1239 <Electronically signed by Saran Fragoso MD > Date _ Saran Fragoso MD Cosigner Signature: Date CC: ~ Signed [facility] Work Phone: 1(881) 643-894105-14-2025 History and physical note Author [facility] Note Date/Time October 21, 2024 11:19 [facility] Medical Records Department [address] [place] [address] History & Physical Exam 10/21/24 0754 MR#: [id number] Acct: [id number] Name: LUCY CROWLEY V Rep #:[id number] : 2000 24 From: Wendy MORALES PA-C PCP: Dr. Heather Ruby, DO Status:A DM IN Location: [facility] [id number] HPI - General General Date of Admission: 10/20/24 Date of Service: 10/21/24 Chief Complaint: Right upper quadrant abdominal pain HPI Narrative LUCY CROWLEY, is a 24 F who presents with a 6 day history of right upper quadrant abdominal pain and fever. Patient notes she has been having intermittent right upper quadrant pain for 9 years. She notes since having her three children the episodes have become increased in intensity of pain and closer together. Patient was recently induced and delivered a healthy baby girl approximately 4 weeks ago. She notes that her liver enzymes were elevated, whichprompted delivery and then she went to the ED at [facility]. She was transferred to [facility] with choledocholithiasis on 09/25. Dr. Chacon performed an ERCP on 09/25 with several gallstones being removed and stent placement in the CBD and pancreatic duct. Patient notes when she came to the hospital she was noted to bejaundice. She states following the procedure and discharge, she followed up withDr. Richter, general surgery. Patient notes she was scheduled to have her gallbladder removed in January. Dr. Richter had requested the stents be removed prior to the patient having her gallbladder removed. Patient was evaluated by [facility], who scheduled her for stent removal at the end of November. Patient stated last she had increased pain similar to the pain she was experiencing just prior to having the ERCP, which prompted her to proceed to [facility] ED. Patient noted they did labs and gave her pain medication and discharged to her to home. She stated over the weekend she developed fevers. She noted her fever was as high as 102.5 degrees Fahrenheit. She noted anything she eats causes pain in theright upper quadrant. She stated between the pain and fevers, she presented to our ED in hopes to have her gallbladder removed. She denies any current urinary issues. She notes having loose stools. She denies any cardiac or pulmonary history. She denies any complications or side effects from anesthesia. She notesprevious open appendectomy with a midline incision at the age of 8. RUQ u/s was obtained and demonstrated: Moderately distended gallbladder, with cholelithiasis, small pericholecystic fluid, wall thickening and positive sonographic Huntley's sign, compatible with acute cholecystitis. WBC 8.5, Hgb 11.5, Hct 34.1, Plt 217. Liver enzymes are normal. [facility] Medical History Biliary colic Home Medications ?Medication ?Instructions ?Recorded ?Last Taken ?Type NK 10/20/24 Unknown History Allergy/AdvReac Type Severity Reaction Status Date / Time No Known Allergies Allergy Verified 10/20/24 17:26 Family History Mother No problems noted. Father No problems noted. Surgical History Hx of appendectomy Social History household members: spouse, children and other details: 2 older children at home, 1 miscarriage, 1 09/24/24. Smoking Status: Never smoker alcohol intake: never substance use type: does not use ROS Constitutional Constitutional: Reports systems reviewed and no addt'l complaints, except as documented Eyes Eyes: Reports systems reviewed and no addt'l complaints, except as documented ENT HEENT: Reports systems reviewed and no addt'l complaints, except as documented Cardiovascular Cardiovascular: Reports systems reviewed and no addt'l complaints, except as documented Respiratory/Chest Respiratory/Chest: Reports systems reviewed and no addt'l complaints, except as documented Gastrointestinal Gastrointestinal: Reports systems reviewed and no addt'l complaints, except as documented Genitourinary Genitourinary: Reports systems reviewed and no addt'l complaints, except as documented Musculoskeletal Musculoskeletal: Reports systems reviewed and no addt'l complaints, except as documented Integumentary Integumentary: Reports systems reviewed and no addt'l complaints, except as documented Neurologic Neurologic: Reports systems reviewed and no addt'l complaints, except as documented Psychiatric Psychiatric: Reports systems reviewed and no addt'l complaints, except as documented Endocrine Endocrinology: Reports systems reviewed and no addt'l complaints, except as documented Hematologic/Lymphatic Hematologic/Lymphatic: Reports systems reviewed and no addt'l complaints, exceptas documented Allergic/Immunologic Allergic/Immunologic: Reports systems reviewed and no addt'l complaints, except as documented Vital Signs Vital Signs Vital Signs: 10/20/24 17:26 10/20/24 17:30 10/20/24 17:54 Temperature 100.2 F H 100.2 F H Temperature Source Oral Oral Pulse Rate 109 H 109 H Respiratory Rate 18 18 Respiratory Effort Normal Respiratory Depth Respiratory Pattern Normal Blood Pressure 120/76 120/76 Blood Pressure Mean 90 90 Pulse Ox 100 100 Oxygen Delivery Method Room Air Room Air 10/20/24 19:17 10/20/24 19:20 10/20/24 20:08 Temperature 99.2 F H 99.2 F H 99 F Temperature Source Oral Oral Oral Pulse Rate 98 98 112 H Respiratory Rate 20 H 20 H 18 Respiratory Effort Respiratory Depth Respiratory Pattern Blood Pressure 108/63 108/63 92/61 Blood Pressure Mean 78 78 71 Pulse Ox 99 99 95 Oxygen Delivery Method Room Air Room Air Room Air 10/20/24 20:42 10/20/24 21:00 10/20/24 21:23 Temperature 99 F 99 F 98.8 F Temperature Source Oral Oral Pulse Rate 89 89 95 Respiratory Rate 16 16 16 Respiratory Effort Respiratory Depth Respiratory Pattern Blood Pressure 110/73 109/71 109/70 Blood Pressure Mean 85 83 83 Pulse Ox 96 96 98 Oxygen Delivery Method Room Air Room Air 10/20/24 21:23 10/21/24 04:00 Temperature 98.0 F Temperature Source Oral Pulse Rate 74 Respiratory Rate 14 Respiratory Effort Normal Non-Labored Respiratory Depth Normal Respiratory Pattern Normal Blood Pressure 93/59 L Blood Pressure Mean 70 Pulse Ox 99 Oxygen Delivery Method Room Air Room Air Weight Weight: 197 lb 8.547 oz Body Mass Index (BMI) 31.8 Physical Exam Const alert, oriented x3 and no apparent distress HEENT normocephalic and head/scalp atraumatic Eyes PERRL Neck full ROM Resp normal respiratory effort and clear to auscultation bilaterally Cardio regular rate and regular rhythm GI GI Narrative: Abdomen- soft, nondistended. Tenderness in the RUQ. Positive Huntley's sign. Well-healed midline incision no CVA tenderness Back/Spine no CVA tenderness Extremity normal to inspection Skin no rashes or lesions noted Neuro no focal motor deficits and no sensory deficits noted Psych mental status grossly normal, thought process normal, cooperative, affect normaland activity/motor behavior normal Results Lab / Micro Data 10/21/24 05:20 10/21/24 05:20 Labs: Laboratory Results - last 24 hr 10/20/24 17:55: WBC 10.6, RBC 3.90 L, Hgb 11.9 L, Hct 35.2 L, MCV 90.3, MCH 30.5, MCHC 33.8, RDW Std Deviation 38.0, RDW Coeff of Rebeca 11.5 L, Plt Count 252,MPV 10.1, Immature Gran % (Auto) 0.600, Neut % (Auto) 75.5 H, Lymph % (Auto) 17.3 L, Mathews % (Auto) 4.9, Eos % (Auto) 1.2, Baso % (Auto) 0.5, Absolute Neuts (auto) 8.0 H, Absolute Lymphs (auto) 1.83, Nucleated RBC % 0, Sodium 137, Potassium 3.8, Chloride 101, Carbon Dioxide 20.9 L, Anion Gap 15, BUN 9, Creatinine 0.82, Estim Creat Clear Calc 114.12, Est GFR (MDRD) Non-Af 102, BUN/Creatinine Ratio 11.6, Glucose 74, Calcium 9.1, Total Bilirubin 0.51, AST 15, ALT 11, Alkaline Phosphatase 102, Total Protein 7.2, Albumin 3.7, Globulin 3.5, Albumin/Globulin Ratio 1.1, Lipase 13 10/20/24 18:00: Urine Color Yellow, Urine Clarity Sl. Cloudy, Urine pH 6.0, Ur Specific Maynard 1.020, Urine Protein 30 H, Urine Glucose (UA) Normal, Urine Ketones 150 A*, Urine Occult Blood 50 H, Urine Nitrite Negative, Urine BilirubinNegative, Urine Urobilinogen 1 H, Ur Leukocyte Esterase 25 H, Urine RBC 5-10 SEEN, Urine WBC 5-10 SEEN, Ur Squamous Epith Cells 0-5 SEEN, Urine Bacteria 1+, Urine Mucus 0 SEEN 10/21/24 05:20: WBC 8.5, RBC 3.76 L, Hgb 11.5 L, Hct 34.1 L, MCV 90.7, MCH 30.6,MCHC 33.7, RDW Std Deviation 38.5, RDW Coeff of Rebeca 11.6, Plt Count 217, MPV 10.1, Immature Gran % (Auto) 0.600, Neut % (Auto) 75.6 H, Lymph % (Auto) 13.5 L,Mathews % (Auto) 5.9, Eos % (Auto) 4.0, Baso % (Auto) 0.4, Absolute Neuts (auto) 6.5, Absolute Lymphs (auto) 1.15, Nucleated RBC % 0, PT 13.4, INR 1.0, APTT 35.3, Sodium 137, Potassium 3.3, Chloride 102, Carbon Dioxide 23.1, Anion Gap 12, BUN 8, Creatinine 0.68 L, Estim Creat Clear Calc 142.59, Est GFR (MDRD) Non-Af 124, BUN/Creatinine Ratio 12.2, Glucose 69 L, Calcium 8.7, Total Bilirubin 0.46, AST 13, ALT 10, Alkaline Phosphatase 95, Total Protein 6.5, Albumin 3.4 L,Globulin 3.1, Albumin/Globulin Ratio 1.1 Imaging Radiology Impression Gallbladder Ultrasound 10/20/24 17:47 IMPRESSION: Moderately distended gallbladder, with cholelithiasis, small pericholecystic fluid, wall thickening and positive sonographic Huntley's sign, compatible with acute cholecystitis. Reading Location: [facility] Assessment & Plan Assessment/Plan (1) Acute cholecystitis: (2) History of biliary stent insertion: (3) Abdominal pain: QUALIFIERS: Abdominal location: right upper quadrant Qualified Code(s): R10.11 - Right upper quadrant pain (4) Gallstone: QUALIFIERS: Cholecystitis presence: with cholecystitis Cholecystitis acuity: acute Biliary obstruction: without biliary obstruction Qualified Code(s): K80.00 - Calculus of gallbladder with acute cholecystitis without obstruction PLAN: Plan I have been consulted in conjunction with Dr. Collins. He has independently evaluated this patient. Patient is a 24 y/o F who presented with a 6 day historyof worsening right upper quadrant abdominal pain and fever. She has a history ofERCP with gallstone removal and stent placement x [address] Chacon. She was notscheduled to have her gallbladder removed until January. With the patient's persistent right upper quadrant abdominal pain associated with eating and RUQ u/s consistent with acute cholecystitis, I believe it is in the patient's benefit to have her gallbladder removed. Dr. Collins will plan to perform a laparoscopic cholecystectomy with intraoperative cholangiogram today. Procedure details, risks and benefits have been explained to the patient and her by myself and Dr. Collins. Patient will continue to keep her ERCP with stent removal at the end of November. Patient and her have had the opportunity to ask and have questions answered. Patient verbally understands and agrees with the plan. Thank you for allowing us to participate in this patient's care. Charges/Coding Visit Charges Inpatient E&M: 01542 Init Hosp L2 (pre-op) 10/21/24 0829 <Electronically signed by Wendy MORALES PA-C> Cosigner Signature (if applicable): CC: ANIRUDH Santana; Dr. Heather Ruby DO; Dr. Aquilino Collins MD~ Signed ADDENDUM by Dr. Aquilino Collins MD on 10/21/24 at 1119 Addendum Patient seen and examined on rounds this morning. Agree with H&P performed by CARMEN Aparicio. Patient is a 24-year-old female with recent choledocholithiasis. ERCP and stent was placed about a month ago. She presented last night with right upper quadrant pain and ultrasound imaging suggesting acute cholecystitis. Clinically she is doing well. White count is normal LFTs are normal. She had a fever at home although has been afebrile since hospitalization. I have offered her a laparoscopic cholecystectomy with cholangiograms. We discussed the details of the planned procedure and she wishes to proceed. This will be performed later today once an OR becomes available 10/21/24 5841<Electronically signed by Aquilino Collins MD> Cosigner Signature (if applicable): cc: ANIRUDH Santana; Dr. Heather Ruby DO; Dr. Aquilino Collins MD ~* Signed [facility] Work Phone: 1(478) [phone] Consult note [facility] Medical Records Department [address] [place] [address] Pre-Anesthesia Evaluation 10/21/24 1238 MR#: [id number] Acct: [id number] Name: LUCY CROWLEY V Rep #:[id number] : 2000 From: Saran Fragoso MD PCP: Dr. Heather Ruby DO Status:A DM IN Y Race: C Location: [place] [id number] ASA Classification* ASA Classification ASA Classification: 2 Assessment & Plan Anesthesia* Anesthesia Assessment Anesthesia Assessment: Discussed sedation and/or anesthesia options, risks, benefits, and alternatives with patient/parents/legal guardian/POA. Questions invited. The patient/parents/legal guardian/POA seems to understand and agrees to proceedwith anesthesia plan. Reviewed the physical assessment, medical history, allergy history and patient home medications list prior to surgery/procedure/anesthetic and documented any changes. Performed airway and anesthesia risk assessments. Anesthesia Type Anesthesia Type: General Anesthesia Focused Assessment* Temperature: 98.6 F Pulse Rate: 79 Blood Pressure: 105/69 Respiratory Rate: 18 Pulse Ox: 96 Airway Assessment Mouth opens: >3 cm Mallampati Score: II Focused Labs Anesthesia Preop lab: CBC WBC 8.5 K/mm3 (4.4-11.0) 10/21/24 05:20 10/21/24 RBC 3.76 M/mm3 (4.2-5.4) L 10/21/24 05:20 10/21/24 Hgb 11.5 g/dL (12.0-15.0) L 10/21/24 05:20 5 Hct 34.1 % (37-47) L 10/21/24 05:20 10/21/24 Plt Count 217 K/mm3 (150-450) 10/21/24 05:20 10/21/24 CHEMISTRY Potassium 3.3 mmol/L (3.3-5.1) 10/21/24 05:20 10/21/24 Sodium 137 mmol/L (133-145) 10/21/24 05:20 10/21/24 BUN 8 mg/dL (4-19) 10/21/24 05:20 10/21/24 Creatinine 0.68 mg/dL (0.70-1.20) L 10/21/24 05:20 Glucose 69 mg/dL (70-99) L 10/21/24 05:20 10/21/24 COAG PT 13.4 SECONDS (11.7-14.9) 10/21/24 05:20 Urine Test Negative Negative 10/21/24 08:45 10/21/24 Pre-Assessment Diagnosis/Proposed Procedure Planned Operative Procedure(s): Laparoscopic cholecystectomy. 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 When Was Last Pacemaker Check QUESTION #4 FULL TEXT: You/Your Family Experience fever (hyperthermia) with Anesthesia Last Oral Intake Last Oral intake: Last Oral Intake NPO since Meds taken in AM with sips of water? 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: PONV - ammunition and explosives handler Female HX of Motion Sickness HX of N/V After Surgery Non-Smoker Duration of Surgery greater than 60 minutes Number of Risk Factors PONV Score Height & Weight Height & Weight: Anesthesia: Height & Weight Height 5 ft 6 in 10/20/24 21:23 Weight: 89.6 kg 10/20/24 21:23 Body Mass Index (BMI) 31.8 10/20/24 21:23 Respiratory Assessment Respiratory Assessment - ammunition and explosives handler: Respiratory Tract Infection Hx - ammunition and explosives handler Hx Respiratory Tract Infection STOP Sleep Apnea STOP Sleep Apnea - ammunition and explosives handler: STOP Sleep Apnea - ammunition and explosives handler Hx Hypertension No 10/20/24 21:23 Hx Sleep Apnea No 10/20/24 21:23 CPAP BIPAP Do you snore loudly (louder No 10/20/24 21:23 than talking or can be heard Do you often feel tired/ No 10/20/24 21:23 fatigued/ sleepy during daytime? Has anyone observed you stop No 10/20/24 21:23 breathing during sleep? STOP Results Negative 10/20/24 21:23 QUESTION #5 FULL TEXT : Do you snore loudly (louder than talking or can be heard through closeddoors)? 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 Specify any problems Hx of Preganancy in last 3 Yes 10/20/24 21:23 Months Nurse Filling Out Transfusion [email or web address] 10/20/24 21:23 & Questions: Date: 10/20/24 10/20/24 21:23 Time: 21:10/20/24 21:23 Patient unable to answer at this time (ie. confused, unrespo /Reproduction History /Reproductive History - ammunition and explosives handler: /Reproductive Hx- ammunition and explosives handler Hx Now No 10/20/24 21:23 Gestational Age (in weeks): EDC: Hx Hx Para Hx Section SAB Yes 10/20/24 21:23 Active Medications Active Medications: Current Medications Generic Name Dose Route Start Last Admin Trade Name Freq PRN Reason Stop Dose Admin Acetaminophen 1,000 mg 10/20/24 22:00 10/21/24 04:05 Acetaminophen 500 Mg Tablet PO 1,000 mg Q8 GEOVANNA Administration Docusate Sodium 100 mg 10/20/24 20:46 Docusate Sodium 100 Mg Capsule PO BID PRN PRN Constipation Dextrose/Sodium Chloride 1,000 mls @ 90 mls/hr 10/20/24 21:00 10/21/24 10:20 Dextrose 5%/0.9% Nacl IV 90 mls/hr .Q11H7M GEOVANNA Administration Piperacillin Sod/Tazobactam 50 mls @ 12.5 mls/hr 10/21/24 06:00 10/21/24 10:29 Sod 3.375 gm/ Sodium Chloride IV Infused Q8 GEOVANNA Infusion Morphine Sulfate 2 - 4 mg 10/20/24 20:46 10/21/24 10:34 Morphine 2 Mg/Ml Syringe IV 2 mg Q3H PRN PRN Administration Pain Score 6-10 Morphine Sulfate 2 - 4 mg 10/20/24 20:54 Morphine 4 Mg/Ml Syringe IV Q3H PRN PRN Pain Score 6-10 Ondansetron HCl 4 mg 10/20/24 20:46 10/21/24 04:05 Ondansetron 4 Mg/2 Ml Vial IV 4 mg Q8H PRN PRN Administration NAUSEA/VOMITING Oxycodone HCl 5 mg 10/20/24 20:46 10/21/24 04:05 Oxycodone 5 Mg Tablet PO 5 mg Q4H PRN PRN Administration Pain Score 4-10 PFSH Medical History Biliary colic Home Medications ?Medication ?Instructions ?Recorded ?Last Taken ?Type NK 10/20/24 Unknown History Allergy/AdvReac Type Severity Reaction Status Date / Time No Known Allergies Allergy Verified 10/21/24 12:32 Family History Mother No problems noted. Father No problems noted. Surgical History Hx of appendectomy Social History household members: spouse, children and other details: 2 older children at home, 1 miscarriage, 1 09/24/24. Smoking Status: Never smoker alcohol intake: never substance use type: does not use Review of Systems (Anesthesia) ROS Narrative System reviewed and no additional complaints, except as documented. 10/21/24 1239 > Date _ Saran Fragoso [facility]: Date CC: ~ Signed [facility]05-14-2025 History and physical note [facility] Medical Records Department [address] [place] [address] History & Physical Exam 10/21/24 0754 MR#: [id number] Acct: [id number] Name: LUCY CROWLEY V Rep #:[id number] : 2000 24 From: Wendy MORALES PA-C PCP: Dr. Heather Ruby, DO Status:A DM IN Location: NE3 [id number] HPI - General General Date of Admission: 10/20/24 Date of Service: 10/21/24 Chief Complaint: Right upper quadrant abdominal pain HPI Narrative LUCY CROWLEY, is a 24 F who presents with a 6 day history of right upper quadrant abdominal pain and fever. Patient notes she has been having intermittent right upper quadrant pain for 9 years. She notes since having her three children the episodes have become increased in intensity of pain and timoteo ser together. Patient was recently induced and delivered a healthy baby girl approximately 4 weeks ago. She notes that her liver enzymes were elevated, whichprompted delivery and then she went to the at [facility]. She was transferred to [facility] with choledocholithiasis on 09/25. Dr. Chacon performed an ERCP on 09/25 with several gallstones being removed and stent placement in the CBD and pancreatic duct. Patient notes when she came to the hospital she was noted to bejaundice. She states following the procedure and discharge, she followed up withDr. Richter, general surgery. Patient notes she was scheduled to have her gallbladder removed in January. Dr. Richter had requested the stents be removed prior to the patient having her gallbladder removed. Patient was evaluated by [facility], who scheduled her for stent removal at the end of November. Patient stated last she had increased pain similar to the pain she was experiencing just prior to having the ERCP, which prompted her to proceed to [facility] ED. Patient noted they did labs and gave her pain medication and discharged to her to home. She stated over the weekend she developed fevers. She noted her fever was as high as 102.5 degrees Fahrenheit. She noted anything she eats causes pain in theright upper quadrant. She stated between the pain and fevers, she presented to our ED in hopes to have her gallbladder removed. She denies any current urinary issues. She notes having loose stools. She denies any cardiac or pulmonary history. She denies any complications or side effects from anesthesia. She notesprevious open appendectomy with a midline incision at the age of 8. RUQ u/s was obtained and demonstrated: Moderately distended gallbladder, with cholelithiasis, smallpericholecystic fluid, wall thickening and positive sonographic Huntley's sign, compatible with acute cholecystitis. WBC 8.5, Hgb 11.5, Hct 34.1, Plt 217. Liver enzymes are normal. [facility] Medical History Biliary colic Home Medications ?Medication ?Instructions ?Recorded ?Last Taken ?Type NK 10/20/24 Unknown History Allergy/AdvReac Type Severity Reaction Status Date / Time No Known Allergies Allergy Verified 10/20/24 17:26 Family History Mother No problems noted. Father No problems noted. Surgical History Hx of appendectomy Social History household members: spouse, children and other details: 2 older children at home, 1 miscarriage, 1 09/24/24. Smoking Status: Never smoker alcohol intake: never substance use type: does not use ROS Constitutional Constitutional: Reports systems reviewed and no addt'l complaints, except as documented Eyes Eyes: Reports systems reviewed and no addt'l complaints, except as documented ENT HEENT: Reports systems reviewed and no addt'l complaints, except as documented Cardiovascular Cardiovascular: Reports systems reviewed and no addt'l complaints, except as documented Respiratory/Chest Respiratory/Chest: Reports systems reviewed and no addt'l complaints, except as documented Gastrointestinal Gastrointestinal: Reports systems reviewed and no addt'l complaints, except as documented Genitourinary Genitourinary: Reports systems reviewed and no addt'l complaints, except as documented Musculoskeletal Musculoskeletal: Reports systems reviewed and no addt'l complaints, except as documented Integumentary Integumentary: Reports systems reviewed and no addt'l complaints, except as documented Neurologic Neurologic: Reports systems reviewed and no addt'l complaints, except as documented Psychiatric Psychiatric: Reports systems reviewed and no addt'l complaints, except as documented Endocrine Endocrinology: Reports systems reviewed and no addt'l complaints, except as documented Hematologic/Lymphatic Hematologic/Lymphatic: Reports systems reviewed and no addt'l complaints, exceptas documented Allergic/Immunologic Allergic/Immunologic: Reports systems reviewed and no addt'l complaints, except as documented Vital Signs Vital Signs Vital Signs: 10/20/24 17:26 10/20/24 17:30 10/20/24 17:54 Temperature 100.2 F H 100.2 F H Temperature Source Oral Oral Pulse Rate 109 H 109 H Respiratory Rate 18 18 Respiratory Effort Normal Respiratory Depth Respiratory Pattern Normal Blood Pressure 120/76 120/76 Blood Pressure Mean 90 90 Pulse Ox 100 100 Oxygen Delivery Method Room Air Room Air 10/20/24 19:17 10/20/24 19:20 10/20/24 20:08 Temperature 99.2 F H 99.2 F H 99 F Temperature Source Oral Oral Oral Pulse Rate 98 98 112 H Respiratory Rate 20 H 20 H 18 Respiratory Effort Respiratory Depth Respiratory Pattern Blood Pressure 108/63 108/63 92/61 Blood Pressure Mean 78 78 71 Pulse Ox 99 99 95 Oxygen Delivery Method Room Air Room Air Room Air 10/20/24 20:42 10/20/24 21:00 10/20/24 21:23 Temperature 99 F 99 F 98.8 F Temperature Source Oral Oral Pulse Rate 89 89 95 Respiratory Rate 16 16 16 Respiratory Effort Respiratory Depth Respiratory Pattern Blood Pressure 110/73 109/71 109/70 Blood Pressure Mean 85 83 83 Pulse Ox 96 96 98 Oxygen Delivery Method Room Air Room Air 10/20/24 21:23 10/21/24 04:00 Temperature 98.0 F Temperature Source Oral Pulse Rate 74 Respiratory Rate 14 Respiratory Effort Normal Non-Labored Respiratory Depth Normal Respiratory Pattern Normal Blood Pressure 93/59 L Blood Pressure Mean 70 Pulse Ox 99 Oxygen Delivery Method Room Air Room Air Weight Weight: 197 lb 8.547 oz Body Mass Index (BMI) 31.8 Physical Exam Const alert, oriented x3 and no apparent distress HEENT normocephalic and head/scalp atraumatic Eyes PERRL Neck full ROM Resp normal respiratory effort and clear to auscultation bilaterally Cardio regular rate and regular rhythm GI GI Narrative: Abdomen- soft, nondistended. Tenderness in the RUQ. Positive Huntley's sign. Well-healed midline incision no CVA tenderness Back/Spine no CVA tenderness Extremity normal to inspection Skin no rashes or lesions noted Neuro no focal motor deficits and no sensory deficits noted Psych mental status grossly normal, thought process normal, cooperative, affect normaland activity/motor behavior normal Results Lab / Micro Data 10/21/24 05:20 10/21/24 05:20 Labs: Laboratory Results - last 24 hr 10/20/24 17:55: WBC 10.6, RBC 3.90 L, Hgb 11.9 L, Hct 35.2 L, MCV 90.3, MCH 30.5, MCHC 33.8, RDW Std Deviation 38.0, RDW Coeff of Rebeca 11.5 L, Plt Count 252,MPV 10.1, Immature Gran % (Auto) 0.600, Neut % (Auto) 75.5 H, Lymph % (Auto) 17.3 L, Mathews % (Auto) 4.9, Eos % (Auto) 1.2, Baso % (Auto) 0.5, Absolute Neuts (auto) 8.0 H, Absolute Lymphs (auto) 1.83, Nucleated RBC % 0, Sodium 137, Potassium 3.8, Chloride 101, Carbon Dioxide 20.9 L, Anion Gap 15, BUN 9, Creatinine 0.82, Estim Creat Clear Calc 114.12, Est GFR (MDRD) Non-Af 102, BUN/Creatinine Ratio 11.6, Glucose 74, Calcium 9.1, Total Bilirubin 0.51, AST 15, ALT 11, Alkaline Phosphatase 102, Total Protein 7.2, Albumin 3.7, Globulin 3.5, Albumin/Globulin Ratio 1.1, Lipase 13 10/20/24 18:00: Urine Color Yellow, Urine Clarity Sl. Cloudy, Urine pH 6.0, Ur Specific Maynard 1.020, Urine Protein 30 H, Urine Glucose (UA) Normal, Urine Ketones 150 A*, Urine Occult Blood 50 H, Urine Nitrite Negative, Urine BilirubinNegative, Urine Urobilinogen 1 H, Ur Leukocyte Esterase 25 H, Urine RBC 5-10 SEEN, Urine WBC 5-10 SEEN, Ur Squamous Epith Cells 0-5 SEEN, Urine Bacteria 1+, Urine Mucus 0 SEEN 10/21/24 05:20: WBC 8.5, RBC 3.76 L, Hgb 11.5 L, Hct 34.1 L, MCV 90.7, MCH 30.6,MCHC 33.7, RDW Std Deviation 38.5, RDW Coeff of Rebeca 11.6, Plt Count 217, MPV 10.1, Immature Gran % (Auto) 0.600, Neut %(Auto) 75.6 H, Lymph % (Auto) 13.5 L,Mathews % (Auto) 5.9, Eos % (Auto) 4.0, Baso % (Auto) 0.4, Absolute Neuts (auto) 6.5, Absolute Lymphs (auto) 1.15, Nucleated RBC % 0, PT 13.4, INR 1.0, APTT 35.3, Sodium 137, Potassium 3.3, Chloride 102, Carbon Dioxide 23.1, Anion Gap 12, BUN 8, Creatinine 0.68 L, Estim Creat Clear Calc 142.59, Est GFR (MDRD) Non- Af 124, BUN/Creatinine Ratio 12.2, Glucose 69 L, Calcium 8.7, Total Bilirubin 0.46, AST 13, ALT 10, Alkaline Phosphatase 95, Total Protein 6.5, Albumin 3.4 L,Globulin 3.1, Albumin/Globulin Ratio 1.1 Imaging Radiology Impression Gallbladder Ultrasound 10/20/24 17:47 IMPRESSION: Moderately distended gallbladder, with cholelithiasis, small pericholecystic fluid, wall thickeningand positive sonographic Huntley's sign, compatible with acute cholecystitis. [facility] & Plan Assessment/Plan (1) Acute cholecystitis: (2) History of biliary stent insertion: (3) Abdominal pain: QUALIFIERS: Abdominal location: right upper quadrant Qualified Code(s): R10.11 - Right upper quadrant pain (4) Gallstone: QUALIFIERS: Cholecystitis presence: with cholecystitis Cholecystitis acuity: acute Biliary obstruction: without biliary obstruction Qualified Code(s): K80.00 - Calculus of gallbladder with acute cholecystitis without obstruction PLAN: Plan I have been consulted in conjunction with Dr. Collins. He has independently evaluated this patient. Patient is a 24 y/o F who presented with a 6 day historyof worsening right upper quadrant abdominal pain and fever. She has a history ofERCP with gallstone removal and stent placement x [address] hCacon. She was notscheduled to have her gallbladder removed until January. With the patient's persistentright upper quadrant abdominal pain associated with eating and RUQ u/s consistent with acute cholecystitis, I believe it is in the patient's benefit to have her gallbladder removed. Dr. Collins will plan to perform a laparoscopic cholecystectomy with intraoperative cholangiogram today. Procedure details, risks and benefits have been explained to the patient and her by myself and Dr. Collins. Patient will continue to keep her ERCP with stent removal at the end of November. Patient and her have had the opportunity to ask and have questions answered. Patient verbally understands and agrees with the plan. Thank you for allowing us to participate in this patient's care. Charges/Coding Visit Charges Inpatient E&M: 36465 Init Hosp L2 (pre-op) 10/21/24 0829 Cosigner Signature (if applicable): CC: ANIRUDH Santana; Dr. Heather Ruby DO; Dr. Aquilino Collins MD~ Signed ADDENDUM by Dr. Aquilino Collins MD on 10/21/24 at 1119 Addendum Patient seen and examined on rounds this morning. Agree with H&P performed by CARMEN Aparicio. Patient is a 24-year-old female with recent choledocholithiasis. ERCP and stent was placed abouta month ago. She presented last night with right upper quadrant pain and ultrasound imaging suggesting acute cholecystitis. Clinically she is doing well. White count is normal LFTs are normal. She had a fever at home although has been afebrile since hospitalization. I have offered her a laparoscopic cholecystectomy with cholangiograms. We discussed the details of the planned procedure and she wishes to proceed. This will be performed later today once an OR becomes available 10/21/24 1119 Cosigner Signature (if applicable): cc: ANIRUDH Santana; Dr. Heather Ruby DO; Dr. Aquilino Collins MD ~* Signed [facility]05-14-2025 [facility] Medical Records Department [address] [place] [address] History Physical Exam 10/21/24 0754 MR#: [id number] Acct: [id number] Name: LUCY CROWLEY V Rep #: [id number] : 2000 From: Wendy MORALES PA-C PCP: Dr. Heather Ruby DO Status:ADM IN Location: [facility] [id number] [facility] - General General Date of Admission: 10/20/24 Date of Service: 10/21/24 Chief Complaint: Right upper quadrant abdominal pain HPI Narrative LUCY CROWLEY, is a 24 F who presents with a 6 day history of right upper quadrant abdominal pain and fever. Patient notes she has been having intermittent right upper quadrant pain for 9 years. She notes since having her three children the episodes have become increased in intensity of pain and closer together. Patient was recently induced and delivered a healthy baby girl approximately 4 weeks ago. She notes that her liver enzymes were elevated, which prompted delivery and then she went to the ED at [facility]. She was transferred to [facility] with choledocholithiasis on 09/25. Dr. Chacon performed an ERCP on 09/25 with several gallstones being removed and stent placement in the CBD and pancreatic duct. Patient notes when she came to the hospital she was noted to be jaundice. She states following the procedure and discharge, she followed up with Dr. Richter, general surgery. Patient notes she was scheduled to have her gallbladder removed in January. Dr. Richter had requested the stents be removed prior to the patient having her gallbladder removed. Patient was evaluated by I, who scheduled her for stent removal at the end of November. Patient stated last she had increased pain similar to the pain she was experiencing just prior to having the ERCP, which prompted her to proceed to [facility] ED. Patient noted they did labs and gave her pain medication and discharged to her to home. She stated over the weekend she developed fevers. She noted her fever was as high as 102.5 degrees Fahrenheit. She noted anything she eats causes pain in the right upper quadrant. She stated between the pain and fevers, she presented to our ED in hopes to have her gallbladder removed. She denies any current urinary issues. She notes having loose stools. She denies any cardiac or pulmonary history. She denies any complications or side effects from anesthesia. She notes previous open appendectomy with a midline incision at the age of 8. RUQ u/s was obtained and demonstrated: Moderately distended gallbladder, with cholelithiasis, small pericholecystic fluid, wall thickening and positive sonographic Huntley's sign, compatible with acute cholecystitis. WBC 8.5, Hgb 11.5, Hct 34.1, Plt 217. Liver enzymes are normal. [facility] Medical History Biliary colic Home Medications ???Medication ???Instructions ???Recorded ???Last Taken ???Type NK 10/20/24 Unknown History Allergy/AdvReac Type Severity Reaction Status Date / Time No Known Allergies Allergy Verified 10/20/24 17:26 Family History Mother No problems noted. Father No problems noted. Surgical History Hx of appendectomy Social History household members: spouse, children and other details: 2 older children at home, 1 miscarriage, 1 09/24/24. Smoking Status: Never smoker alcohol intake: never substance use type: does not use ROS Constitutional Constitutional: Reports systems reviewed and no addt'l complaints, except as documented Eyes Eyes: Reports systems reviewed and no addt'l complaints, except as documented ENT HEENT: Reports systems reviewed and no addt'l complaints, except as documented Cardiovascular Cardiovascular: Reports systems reviewed and no addt'l complaints, except as documented Respiratory/Chest Respiratory/Chest: Reports systems reviewed and no addt'l complaints, except as documented Gastrointestinal Gastrointestinal: Reports systems reviewed and no addt'l complaints, except as documented Genitourinary Genitourinary: Reports systems reviewed and no addt'l complaints, except as documented Musculoskeletal Musculoskeletal: Reports systems reviewed and no addt'l complaints, except as documented Integumentary Integumentary: Reports systems reviewed and no addt'l complaints, except as documented Neurologic Neurologic: Reports systems reviewed and no addt'l complaints, except as documented Psychiatric Psychiatric: Reports systems reviewed and no addt'l complaints, except as documented Endocrine Endocrinology: Reports systems reviewed and no addt'l complaints, except as documented Hematologic/Lymphatic Hematologic/Lymphatic: Reports systems reviewed and no addt'l complaints, except (more content not included)...[facility]05-13-2025 Discharge summary Author Dillan Wu [facility] Note Date/Time October 20, 2024 8:37p m [facility] Medical Records Department [address] [place] [address] Emergency Department Summary 10/20/24 MR#: [id number] Acct: [id number] Name: LUCY CROWLEY V Rep #:[id number] : 2000 From: Dillan Wu MD PCP: Dr. Heather Ruby, DO Status:R EG ER Location: ED HPI History of Present Illness Chief Complaint: Fever Informant: patient and spouse/S.O. Onset/Context/Timing Onset: Days Context: Gradual Onset Timing: Intermittent Current Severity: Gone Maximum Severity: Mild Narrative Narrative: 24-year-old female history of gallstones. Recent GI consult for gallstone resection and biliary stent. Prior appendectomy. Patient delivered vaginal livery about 4 weeks ago at 30 weeks. She had gallstones with biliary colic [facility]acon did ERCP remove several gallstones. Placed a stent. Patient has been doing well. Last he started having intermittent upper abdominal pain. Today his pain-free but had a fever at home as high as 1-2.5. Denies nausea or vomiting. No diarrhea. No dysuria. No heavy vaginal bleeding or pelvic pain. No vaginal discharge. Prior similar symptoms: Yes Recent Illness/Hospitalization: Yes PFSH PFS Medical History Biliary colic Allergy/AdvReac Type Severity Reaction Status Date / Time No Known Allergies Allergy Verified 10/20/24 17:26 Family History Mother No problems noted. Father No problems noted. Surgical History Hx of appendectomy Social History household members: spouse, children and other details: 2 older children at home, 1 miscarriage, 1 09/24/24. Smoking Status: Never smoker alcohol intake: never substance use type: does not use ROS ROS ED ROS Narrative Abdominal pain. Currently pain-free. Fever. Review of Systems ROS Unobtainable: Denies due to encephalopathy Constitutional Constitutional ED: Reports fever(s); Denies chills Eyes Eyes: Denies blurry vision ENT ENT ED: Denies ear pain Cardiovascular Cardiovascular: Denies chest pain Respiratory/Chest Respiratory/Chest: Denies cough or dyspnea Gastrointestinal Gastrointestinal: Reports abdominal pain; Denies constipation, melena, nausea orvomiting Genitourinary Genitourinary ED: Denies dysuria or hematuria Musculoskeletal Musculoskeletal: Denies arthralgias or back pain Integumentary Denies abscess Neurologic Neurologic: Denies headache(s) Psychiatric Psychiatric: Denies anxiety Endocrine Endocrinology: Denies cold intolerance Hematologic/Lymphatic Hematologic/Lymphatic: Reports none Allergic/Immunologic Allergic/Immunologic ED: Denies mouth swelling, tongue swelling or urticaria EXAM Physical Exam Narrative Exam Narrative: 24-year-old female sitting upright in bed. Vital signs are stable she has a low- grade temperature 100.2. She does not look septic or toxic in any distress. Pulse ox 100% on room air no signs hypoxia. at bedside. H EENT exam pupils round react light. Moist mucous members. Neck nontender no JVD. No lymphadenopathy. Lungs clear to auscultation bilaterally. Heart regular rhythmrate about 105 no murmur. Chest wall ribs nontender. Abdomen soft, nontender, nondistended normal bowel sounds peritoneal signs. There is no localized tenderness. There is no hernia or mass. There is no right upper quadrant tenderness or Huntley sign. Right lower quadrant is nontender. No distention. No rash. No obstruction. Very benign abdominal exam. Completely nontender. Moving all 4 extremities. Nontender no edema. Back nontender. Skin no cellulitis. Neurologically she is awake and alert. Const Vital Signs: 10/20/24 17:26 10/20/24 17:30 10/20/24 17:54 Temperature 100.2 F H 100.2 F H Temperature Source Oral Oral Pulse Rate 109 H 109 H Respiratory Rate 18 18 Respiratory Effort Normal Respiratory Pattern Normal Blood Pressure 120/76 120/76 Blood Pressure Mean 90 90 Pulse Ox 100 100 Oxygen Delivery Method Room Air Room Air 10/20/24 19:17 10/20/24 19:20 10/20/24 20:08 Temperature 99.2 F H 99.2 F H 99 F Temperature Source Oral Oral Oral Pulse Rate 98 98 112 H Respiratory Rate 20 H 20 H 18 Respiratory Effort Respiratory Pattern Blood Pressure 108/63 108/63 92/61 Blood Pressure Mean 78 78 71 Pulse Ox 99 99 95 Oxygen Delivery Method Room Air Room Air Room Air Positive well nourished and well developed; Negative for cachectic, contracturesor unkempt General Appearance ED: well developed and NAD; Negative for unkempt, cachectic, contractures, cyanotic, diaphoretic or pallor Nutritional Appearance: Negative for cachectic HEENT Reports moist mucous membranes Negative for trauma or tenderness Eyes PERRL and EOMs intact bilaterally Neck no lymphadenopathy, supple and no JVD Chest Wall inspection of chest normal and palpation of chest normal Resp normal respiratory effort and clear to auscultation bilaterally Effort and Inspection: Negative for retractions Auscultation: Negative for rales, rhonchi, wheezes or diminished lung sounds Cardio regular rate, regular rhythm, S1 normal heart sound, S2 normal heart sound and no murmurs GI normal to inspection, nondistended, normoactive bowel sounds, non-tender, non-distended and no masses Auscultation: normoactive bowel sounds Palpation: soft; Negative for tender, guarding, splenomegaly, mass or rebound tenderness present Back/Spine no CVA tenderness General Back: Negative for CVA tenderness Cervical Spine: Negative for cervical spine tenderness Thoracic Spine / Upper Back: Negative for thoracic spinal tenderness or paraspinal muscle tenderness Lumbar Spine / Lower Back: Negative for lumbar spinal tenderness Extremity normal to inspection General Extremety ED: Negative for edema or tenderness General Extremity: Negative for edema Neuro oriented x3, CN's II-XII intact bilaterally and no sensory deficits noted Sensorium / Orientation: alert; Negative for orientation impaired Sensory Exam: No sensory level loss detected Motor Exam: strength 5/5 throughout; Negative for general weakness or strength abnormal Psych mental status grossly normal Appearance: Negative for unkempt Attitude: No agitated Mood & Affect: Negative for depressed, anxious or tearful Skin no rashes or lesions noted, no wounds and skin turgor normal General Skin Exam: elasticity normal; Negative for jaundice or pallor Lesions: No lesion noted Trauma: Negative for abrasion Wounds: Negative for wounds noted MDM MDM MDM Narrative Medical decision making narrative: 24-year-old female status post 4 weeks ago. Complaining of intermittent abdominal pain for about a week. Today had a fever about 1 or 2.5. Denies vomiting or diarrhea. No dysuria. Currently is pain-free. Had a recent ERCP with gallstone removal and stent placement. Exam is very benign. Ultrasound ofright upper quadrant screening labs to be obtained. She does not need anything for pain. She will be given Tylenol for low-grade temperature 100.2. Repeat exam patient is doing well at 7:10 PM. We have gone over her test results. She is having no urinary symptoms. A culture will be sent. Her labs are benign otherwise. Awaiting the gallbladder ultrasound result. Repeat abdominal exam shows right upper quadrant abdominal pain with deep palpation. Clinically she looks well. Ultrasound is consistent with possible acute cholecystitis. I have general surgeon Dr. Joya on page. Will discuss admission. Patient will be treated with pain medication. And IV antibiotics. History & Record Review Discussion w/independent historian: Patient and Family Additional record(s) reviewed:: Prior inpatient record, Prior outpatient record,Prior ED visit and Prior labs Lab Data Attestation: I reviewed the patient's lab results. Lab results narrative: CBC shows a normal white count 10.6. H&H 11.9 and 35.2. Glucose 252. Electrolytes show sodium 137. Gap 15. Normal BUN 9 creatinine 0.8. Glucose 74. Liver enzymes normal none are elevated. Lipase is normal at 13. Urinalysis shows 5-10 red cells. 5-10 white cells. 1+ bacteria. 50 occult blood. No nitrates. She is not having any urinary symptoms. A culture will besent. Right upper quadrant ultrasound shows mildly distended gallbladder. Gallstones. Small cholecystic fluid. Wall thickening. Consistent with acute cholecystitis. Labs: Laboratory Results - last 24 hr 10/20/24 10/20/24 17:55 18:00 WBC 10.6 RBC 3.90 L Hgb 11.9 L Hct 35.2 L MCV 90.3 MCH 30.5 MCHC 33.8 RDW Std Deviation 38.0 RDW Coeff of Rebeca 11.5 L Plt Count 252 MPV 10.1 Immature Gran % (Auto) 0.600 Neut % (Auto) 75.5 H Lymph % (Auto) 17.3 L Mathews % (Auto) 4.9 Eos % (Auto) 1.2 Baso % (Auto) 0.5 Absolute Neuts (auto) 8.0 H Absolute Lymphs (auto) 1.83 Nucleated RBC % 0 Sodium 137 Potassium 3.8 Chloride 101 Carbon Dioxide 20.9 L Anion Gap 15 BUN 9 Creatinine 0.82 Estim Creat Clear Calc 114.12 Est GFR (MDRD) Non-Af 102 BUN/Creatinine Ratio 11.6 Glucose 74 Calcium 9.1 Total Bilirubin 0.51 AST 15 ALT 11 Alkaline Phosphatase 102 Total Protein 7.2 Albumin 3.7 Globulin 3.5 Albumin/Globulin Ratio 1.1 Lipase 13 Urine Color Yellow Urine Clarity Sl. Cloudy Urine pH 6.0 Ur Specific Maynard 1.020 Urine Protein 30 H Urine Glucose (UA) Normal Urine Ketones 150 A* Urine Occult Blood 50 H Urine Nitrite Negative Urine Bilirubin Negative Urine Urobilinogen 1 H Ur Leukocyte Esterase 25 H Urine RBC 5-10 SEEN Urine WBC 5-10 SEEN Ur Squamous Epith Cells 0-5 SEEN Urine Bacteria 1+ Urine Mucus 0 SEEN Radiography Diagnostic Testing: Clinical Impression(s) from Imaging Studies Gallbladder Ultrasound 10/20/24 17:47 IMPRESSION: Moderately distended gallbladder, with cholelithiasis, small pericholecystic fluid, wall thickening and positive sonographic Huntley's sign, compatible with acute cholecystitis. [facility] Plan Dx/Rx/DC Orders Clinical Impression: Abdominal pain, Fever, Acute cholecystitis, Gallstone Disposition Disposition: Acute Care Hospital [facility] What to do if you have Problems For any increased pain, shortness of breath, bleeding, nausea or vomiting, chestpain, or any unexpected problems, contact your Primary Care Provider. Call [facility] ([phone]) or report to the closest Emergency Room. Call 911 if necessary. 10/20/242036 <Electronically signed by Dillan Wu MD> Cosigner Signature (if applicable): CC: Dr. Heather Ruby DO ~ Signed [facility] Work Phone: [phone] Discharge summary [facility] Medical Records Department [address] [place] [address] Emergency Department Summary 10/20/24 MR#: [id number] Acct: [id number] Name: LUCY CROWLEY V Rep #:[id number] : 2000 From: Dillan Wu MD PCP: Dr. Heather Ruby DO Status:R EG ER Location: ED HPI History of Present Illness Chief Complaint: Fever Informant: patient and spouse/S.O. Onset/Context/Timing Onset: Days Context: Gradual Onset Timing: Intermittent Current Severity: Gone Maximum Severity: Mild Narrative Narrative: 24-year-old female history of gallstones. Recent GI consult for gallstone resection and biliary stent. Prior appendectomy. Patient delivered vaginal livery about 4 weeks ago at 30 weeks. She had gallstones with biliary colic [facility] Dr. Chacon did ERCP remove several gallstones. Placed a stent. Patient has been doing well. Last he started having intermittent upper abdominal pain. Today his pain-free but had a fever at home as high as 1-2.5. Denies nausea or vomiting. No diarrhea. No dysuria. No heavy vaginal bleeding or pelvic pain. No vaginal discharge. Prior similar symptoms: Yes Recent Illness[facility] Medical History Biliary colic Allergy/AdvReac Type Severity Reaction Status Date / Time No Known Allergies Allergy Verified 10/20/24 17:26 Family History Mother No problems noted. Father No problems noted. Surgical History Hx of appendectomy Social History household members: spouse, children and other details: 2 older children at home, 1 miscarriage, 1 09/24/24. Smoking Status: Never smoker alcohol intake: never substance use type: does not use ROS ROS ED ROS Narrative Abdominal pain. Currently pain-free. Fever. Review of Systems ROS Unobtainable: Denies due to encephalopathy Constitutional Constitutional ED: Reports fever(s); Denies chills Eyes Eyes: Denies blurry vision ENT ENT ED: Denies ear pain Cardiovascular Cardiovascular: Denies chest pain Respiratory/Chest Respiratory/Chest: Denies cough or dyspnea Gastrointestinal Gastrointestinal: Reports abdominal pain; Denies constipation, melena, nausea orvomiting Genitourinary Genitourinary ED: Denies dysuria or hematuria Musculoskeletal Musculoskeletal: Denies arthralgias or back pain Integumentary Denies abscess Neurologic Neurologic: Denies headache(s) Psychiatric Psychiatric: Denies anxiety Endocrine Endocrinology: Denies cold intolerance Hematologic/Lymphatic Hematologic/Lymphatic: Reports none Allergic/Immunologic Allergic/Immunologic ED: Denies mouth swelling, tongue swelling or urticaria EXAM Physical Exam Narrative Exam Narrative: 24-year-old female sitting upright in bed. Vital signs are stable she has a low- grade temperature 100.2. She does not look septic or toxic in any distress. Pulse ox 100% on room air no signs hypoxia. at bedside. H EENT exam pupils round react light. Moist mucous members. Neck nontender no JVD. No lymphadenopathy. Lungs clear to auscultation bilaterally. Heart regular rhythmrate about 105 no murmur. Chest wall ribs nontender. Abdomen soft, nontender, nondistended normal bowel sounds peritoneal signs. There is no localized tenderness. There is no hernia or mass. There is no right upper q uadrant tenderness or Huntley sign. Right lower quadrant is nontender. No distention. No rash. No obstruction. Very benign abdominal exam. Completely nontender. Moving all 4 extremities. Nontender no edema. Back nontender. Skin no cellulitis. Neurologically she is awake and alert. Const Vital Signs: 10/20/24 17:26 10/20/24 17:30 10/20/24 17:54 Temperature 100.2 F H 100.2 F H Temperature Source Oral Oral Pulse Rate 109 H 109 H Respiratory Rate 18 18 Respiratory Effort Normal Respiratory Pattern Normal Blood Pressure 120/76 120/76 Blood Pressure Mean 90 90 Pulse Ox 100 100 Oxygen Delivery Method Room Air Room Air 10/20/24 19:17 10/20/24 19:20 10/20/24 20:08 Temperature 99.2 F H 99.2 F H 99 F Temperature Source Oral Oral Oral Pulse Rate 98 98 112 H Respiratory Rate 20 H 20 H 18 Respiratory Effort Respiratory Pattern Blood Pressure 108/63 108/63 92/61 Blood Pressure Mean 78 78 71 Pulse Ox 99 99 95 Oxygen Delivery Method Room Air Room Air Room Air Positive well nourished and well developed; Negative for cachectic, contracturesor unkempt General Appearance ED: well developed and NAD; Negative for unkempt, cachectic, contractures, cyanotic, diaphoretic or pallor Nutritional Appearance: Negative for cachectic HEENT Reports moist mucous membranes Negative for trauma or tenderness Eyes PERRL and EOMs intact bilaterally Neck no lymphadenopathy, supple and no JVD Chest Wall inspection of chest normal and palpation of chest normal Resp normal respiratory effort and clear to auscultation bilaterally Effort and Inspection: Negative for retractions Auscultation: Negative for rales, rhonchi, wheezes or diminished lung sounds Cardio regular rate, regular rhythm, S1 normal heart sound, S2 normal heart sound and no murmurs GI normal to inspection, nondistended, normoactive bowel sounds, non-tender, non- distended and no masses Auscultation: normoactive bowel sounds Palpation: soft; Negative for tender, guarding, splenomegaly, mass or rebound tenderness present Back/Spine no CVA tenderness General Back: Negative for CVA tenderness Cervical Spine: Negative for cervical spine tenderness Thoracic Spine / Upper Back: Negative for thoracic spinal tenderness or paraspinal muscle tenderness Lumbar Spine / Lower Back: Negative for lumbar spinal tenderness Extremity normal to inspection General Extremety ED: Negative for edema or tenderness General Extremity: Negative for edema Neuro oriented x3, CN's II-XII intact bilaterally and no sensory deficits noted Sensorium / Orientation: alert; Negative for orientation impaired Sensory Exam: No sensory level loss detected Motor Exam: strength 5/5 throughout; Negative for general weakness or strength abnormal Psych mental status grossly normal Appearance: Negative for unkempt Attitude: No agitated Mood & Affect: Negative for depressed, anxious or tearful Skin no rashes or lesions noted, no wounds and skin turgor normal General Skin Exam: elasticity normal; Negative for jaundice or pallor Lesions: No lesion noted Trauma: Negative for abrasion Wounds: Negative for wounds noted MDM MDM MDM Narrative Medical decision making narrative: 24-year-old female status post 4 weeks ago. Complaining of intermittent abdominal pain for about a week. Today had a fever about 1 or 2.5. Denies vomiting or diarrhea. No dysuria. Currently ispain-free. Had a recent ERCP with gallstone removal and stent placement. Exam is very benign. Ultrasound ofright upper quadrant screening labs to be obtained. She does not need anything for pain. Shewill be given Tylenol for low-grade temperature 100.2. Repeat exam patient is doing well at 7:10 PM. We have gone over her test results. She is having no urinary symptoms. A culture will be sent. Her labs are benign otherwise. Awaiting the gallbladder ultrasound result. Repeat abdominal exam shows right upper quadrant abdominal pain with deep palpation. Clinically she looks well. Ultrasound is consistent with possible acute cholecystitis. I have general surgeon Dr. Joya on page. Will discuss admission. Patient will be treated with pain medication. And IV antibiotics. History & Record Review Discussion w/independent historian: Patient and Family Additional record(s) reviewed:: Prior inpatient record, Prior outpatient record,Prior ED visit and Prior labs Lab Data Attestation: I reviewed the patient's lab results. Lab results narrative: CBC shows a normal white count 10.6. H&H 11.9 and 35.2. Glucose 252. Electrolytes show sodium 137. Gap 15. Normal BUN 9 creatinine 0.8. Glucose 74. Liver enzymes normal none are elevated. Lipase is normal at 13. Urinalysis shows 5-10 red cells. 5-10 white cells. 1+ bacteria. 50 occult blood. No nitrates. She is not having any urinary symptoms. A culture will besent. Right upper quadrant ultrasound shows mildly distended gallbladder. Gallstones. Small cholecystic fluid. Wall thickening. Consistent with acute cholecystitis. Labs: Laboratory Results - last 24 hr 10/20/24 10/20/24 17:55 18:00 WBC 10.6 RBC 3.90 L Hgb 11.9 L Hct 35.2 L MCV 90.3 MCH 30.5 MCHC 33.8 RDW Std Deviation 38.0 RDW Coeff of Rebeca 11.5 L Plt Count 252 MPV 10.1 Immature Gran % (Auto) 0.600 Neut % (Auto) 75.5 H Lymph % (Auto) 17.3 L Mathews % (Auto) 4.9 Eos % (Auto) 1.2 Baso % (Auto) 0.5 Absolute Neuts (auto) 8.0 H Absolute Lymphs (auto) 1.83 Nucleated RBC % 0 Sodium 137 Potassium 3.8 Chloride 101 Carbon Dioxide 20.9 L Anion Gap 15 BUN 9 Creatinine 0.82 Estim Creat Clear Calc 114.12 Est GFR (MDRD) Non-Af 102 BUN/Creatinine Ratio 11.6 Glucose 74 Calcium 9.1 Total Bilirubin 0.51 AST 15 ALT 11 Alkaline Phosphatase 102 Total Protein 7.2 Albumin 3.7 Globulin 3.5 Albumin/Globulin Ratio 1.1 Lipase 13 Urine Color Yellow Urine Clarity Sl. Cloudy Urine pH 6.0 Ur Specific Maynard 1.020 Urine Protein 30 H Urine Glucose (UA) Normal Urine Ketones 150 A* Urine Occult Blood 50 H Urine Nitrite Negative Urine Bilirubin Negative Urine Urobilinogen 1 H Ur Leukocyte Esterase 25 H Urine RBC 5-10 SEEN Urine WBC 5-10 SEEN Ur Squamous Epith Cells 0-5 SEEN Urine Bacteria 1+ Urine Mucus 0 SEEN Radiography Diagnostic Testing: Clinical Impression(s) from Imaging Studies Gallbladder Ultrasound 10/20/24 17:47 IMPRESSION: Moderately distended gallbladder, with cholelithiasis, small pericholecystic fluid, wall thickeningand positive sonographic Huntley's sign, compatible with acute cholecystitis. Reading Location: [facility] Discharge Plan Dx/Rx/DC Orders Clinical Impression: Abdominal pain, Fever, Acute cholecystitis, Gallstone Disposition Disposition: Acute Care Hospital [facility] What to do if you have Problems For any increased pain, shortness of breath, bleeding, nausea or vomiting, chestpain, or any unexpected problems, contact your Primary Care Provider. Call [facility] ([phone]) or report tothe closest Emergency Room. Call 911 if necessary. 10/20/242036 Cosigner Signature (if applicable): CC: Dr. Heather Ruby DO ~ Signed [facility]05-13-2025 Radiology Diagnostic study note [facility] Imaging Services [address] [place] [address] Gallbladder MR#: [id number] Acct: [id number] Name: LUCY CROWLEY V Rep #: [id number] : 2000 24 From: Sharri Love MD PCP: Dr. Heather Ruby DO Status: R EG ER Study:Gallbladder Date of Exam: 10/20/24 Exam# [id number] Ordering Dr: Srinath Wu MD PROCEDURE: GALLBLADDER 10/20/2024 REASON FOR EXAM: PAIN COMPARISON: None FINDINGS: Liver: Mild hepatomegaly, craniocaudal length 17.5 cm. No focal lesion. Gallbladder: Mildly distended. Positive sonographic Huntley's sign. Cholelithiasis within the neck and fundus. Wall thickening, measuring 7 mm. Small amount of layering sludge. Small amount of pericholecystic fluid. Common bile duct: Slightly dilated 5 mm. Pancreas: Visualized portions are sonographically unremarkable. Other: Right kidney: 11.9 cm. No calculi or hydronephrosis. US/Gallbladder IMPRESSION: Moderately distended gallbladder, with cholelithiasis, small pericholecystic fluid, wall thickeningand positive sonographic Huntley's sign, compatible with acute cholecystitis. [facility] CC: Dr. Dillan Wu MD; Dr. Heather Ruby DO ~ Lens Finisher: Signed [facility]05-13-2025 Discharge summary Author Dillan Wu [facility] Note Date/Time October 20, 2024 8:37p m [facility] Medical Records Department [address] [place] [address] Emergency Department Summary 10/20/24 MR#: [id number] Acct: [id number] Name: LUCY CROWLEY V Rep #:[id number] : 2000 24 From: Dillan Wu MD PCP: Dr. Heather Ruby, DO Status:R EG ER Location: ED HPI History of Present Illness Chief Complaint: Fever Informant: patient and spouse/S.O. Onset/Context/Timing Onset: Days Context: Gradual Onset Timing: Intermittent Current Severity: Gone Maximum Severity: Mild Narrative Narrative: 24-year-old female history of gallstones. Recent GI consult for gallstone resection and biliary stent. Prior appendectomy. Patient delivered vaginal livery about 4 weeks ago at 30 weeks. She had gallstones with biliary colic [facility]. Dr. Chacon did ERCP remove several gallstones. Placed a stent. Patient has been doing well. Last he started having intermittent upper abdominal pain. Today his pain-free but had a fever at home as high as 1-2.5. Denies nausea or vomiting. No diarrhea. No dysuria. No heavy vaginal bleeding or pelvic pain. No vaginal discharge. Prior similar symptoms: Yes Recent Illness/Hospitalization: Yes [facility] Medical History Biliary colic Allergy/AdvReac Type Severity Reaction Status Date / Time No Known Allergies Allergy Verified 10/20/24 17:26 Family History Mother No problems noted. Father No problems noted. Surgical History Hx of appendectomy Social History household members: spouse, children and other details: 2 older children at home, 1 miscarriage, 1 09/24/24. Smoking Status: Never smoker alcohol intake: never substance use type: does not use ROS ROS ED ROS Narrative Abdominal pain. Currently pain-free. Fever. Review of Systems ROS Unobtainable: Denies due to encephalopathy Constitutional Constitutional ED: Reports fever(s); Denies chills Eyes Eyes: Denies blurry vision ENT ENT ED: Denies ear pain Cardiovascular Cardiovascular: Denies chest pain Respiratory/Chest Respiratory/Chest: Denies cough or dyspnea Gastrointestinal Gastrointestinal: Reports abdominal pain; Denies constipation, melena, nausea orvomiting Genitourinary Genitourinary ED: Denies dysuria or hematuria Musculoskeletal Musculoskeletal: Denies arthralgias or back pain Integumentary Denies abscess Neurologic Neurologic: Denies headache(s) Psychiatric Psychiatric: Denies anxiety Endocrine Endocrinology: Denies cold intolerance Hematologic/Lymphatic Hematologic/Lymphatic: Reports none Allergic/Immunologic Allergic/Immunologic ED: Denies mouth swelling, tongue swelling or urticaria EXAM Physical Exam Narrative Exam Narrative: 24-year-old female sitting upright in bed. Vital signs are stable she has a low- grade temperature 100.2. She does not look septic or toxic in any distress. Pulse ox 100% on room air no signs hypoxia. at bedside. H EENT exam pupils round react light. Moist mucous members. Neck nontender no JVD. No lymphadenopathy. Lungs clear to auscultation bilaterally. Heart regular rhythmrate about 105 no murmur. Chest wall ribs nontender. Abdomen soft, nontender, nondistended normal bowel sounds peritoneal signs. There is no localized tenderness. There is no hernia or mass. There is no right upper quadrant tenderness or Huntley sign. Right lower quadrant is nontender. No distention. No rash. No obstruction. Very benign abdominal exam. Completely nontender. Moving all 4 extremities. Nontender no edema. Back nontender. Skin no cellulitis. Neurologically she is awake and alert. Const Vital Signs: 10/20/24 17:26 10/20/24 17:30 10/20/24 17:54 Temperature 100.2 F H 100.2 F H Temperature Source Oral Oral Pulse Rate 109 H 109 H Respiratory Rate 18 18 Respiratory Effort Normal Respiratory Pattern Normal Blood Pressure 120/76 120/76 Blood Pressure Mean 90 90 Pulse Ox 100 100 Oxygen Delivery Method Room Air Room Air 10/20/24 19:17 10/20/24 19:20 10/20/24 20:08 Temperature 99.2 F H 99.2 F H 99 F Temperature Source Oral Oral Oral Pulse Rate 98 98 112 H Respiratory Rate 20 H 20 H 18 Respiratory Effort Respiratory Pattern Blood Pressure 108/63 108/63 92/61 Blood Pressure Mean 78 78 71 Pulse Ox 99 99 95 Oxygen Delivery Method Room Air Room Air Room Air Positive well nourished and well developed; Negative for cachectic, contracturesor unkempt General Appearance ED: well developed and NAD; Negative for unkempt, cachectic, contractures, cyanotic, diaphoretic or pallor Nutritional Appearance: Negative for cachectic HEENT Reports moist mucous membranes Negative for trauma or tenderness Eyes PERRL and EOMs intact bilaterally Neck no lymphadenopathy, supple and no JVD Chest Wall inspection of chest normal and palpation of chest normal Resp normal respiratory effort and clear to auscultation bilaterally Effort and Inspection: Negative for retractions Auscultation: Negative for rales, rhonchi, wheezes or diminished lung sounds Cardio regular rate, regular rhythm, S1 normal heart sound, S2 normal heart sound and no murmurs GI normal to inspection, nondistended, normoactive bowel sounds, non-tender, non-distended and no masses Auscultation: normoactive bowel sounds Palpation: soft; Negative for tender, guarding, splenomegaly, mass or rebound tenderness present Back/Spine no CVA tenderness General Back: Negative for CVA tenderness Cervical Spine: Negative for cervical spine tenderness Thoracic Spine / Upper Back: Negative for thoracic spinal tenderness or paraspinal muscle tenderness Lumbar Spine / Lower Back: Negative for lumbar spinal tenderness Extremity normal to inspection General Extremety ED: Negative for edema or tenderness General Extremity: Negative for edema Neuro oriented x3, CN's II-XII intact bilaterally and no sensory deficits noted Sensorium / Orientation: alert; Negative for orientation impaired Sensory Exam: No sensory level loss detected Motor Exam: strength 5/5 throughout; Negative for general weakness or strength abnormal Psych mental status grossly normal Appearance: Negative for unkempt Attitude: No agitated Mood & Affect: Negative for depressed, anxious or tearful Skin no rashes or lesions noted, no wounds and skin turgor normal General Skin Exam: elasticity normal; Negative for jaundice or pallor Lesions: No lesion noted Trauma: Negative for abrasion Wounds: Negative for wounds noted MDM MDM MDM Narrative Medical decision making narrative: 24-year-old female status post 4 weeks ago. Complaining of intermittent abdominal pain for about a week. Today had a fever about 1 or 2.5. Denies vomiting or diarrhea. No dysuria. Currently is pain-free. Had a recent ERCP with gallstone removal and stent placement. Exam is very benign. Ultrasound ofright upper quadrant screening labs to be obtained. She does not need anything for pain. She will be given Tylenol for low-grade temperature 100.2. Repeat exam patient is doing well at 7:10 PM. We have gone over her test results. She is having no urinary symptoms. A culture will be sent. Her labs are benign otherwise. Awaiting the gallbladder ultrasound result. Repeat abdominal exam shows right upper quadrant abdominal pain with deep palpation. Clinically she looks well. Ultrasound is consistent with possible acute cholecystitis. I have general surgeon Dr. Joya on page. Will discuss admission. Patient will be treated with pain medication. And IV antibiotics. History & Record Review Discussion w/independent historian: Patient and Family Additional record(s) reviewed:: Prior inpatient record, Prior outpatient record,Prior ED visit and Prior labs Lab Data Attestation: I reviewed the patient's lab results. Lab results narrative: CBC shows a normal white count 10.6. H&H 11.9 and 35.2. Glucose 252. Electrolytes show sodium 137. Gap 15. Normal BUN 9 creatinine 0.8. Glucose 74. Liver enzymes normal none are elevated. Lipase is normal at 13. Urinalysis shows 5-10 red cells. 5-10 white cells. 1+ bacteria. 50 occult blood. No nitrates. She is not having any urinary symptoms. A culture will besent. Right upper quadrant ultrasound shows mildly distended gallbladder. Gallstones. Small cholecystic fluid. Wall thickening. Consistent with acute cholecystitis. Labs: Laboratory Results - last 24 hr 10/20/24 10/20/24 17:55 18:00 WBC 10.6 RBC 3.90 L Hgb 11.9 L Hct 35.2 L MCV 90.3 MCH 30.5 MCHC 33.8 RDW Std Deviation 38.0 RDW Coeff of Rebeca 11.5 L Plt Count 252 MPV 10.1 Immature Gran % (Auto) 0.600 Neut % (Auto) 75.5 H Lymph % (Auto) 17.3 L Mathews % (Auto) 4.9 Eos % (Auto) 1.2 Baso % (Auto) 0.5 Absolute Neuts (auto) 8.0 H Absolute Lymphs (auto) 1.83 Nucleated RBC % 0 Sodium 137 Potassium 3.8 Chloride 101 Carbon Dioxide 20.9 L Anion Gap 15 BUN 9 Creatinine 0.82 Estim Creat Clear Calc 114.12 Est GFR (MDRD) Non-Af 102 BUN/Creatinine Ratio 11.6 Glucose 74 Calcium 9.1 Total Bilirubin 0.51 AST 15 ALT 11 Alkaline Phosphatase 102 Total Protein 7.2 Albumin 3.7 Globulin 3.5 Albumin/Globulin Ratio 1.1 Lipase 13 Urine Color Yellow Urine Clarity Sl. Cloudy Urine pH 6.0 Ur Specific Maynard 1.020 Urine Protein 30 H Urine Glucose (UA) Normal Urine Ketones 150 A* Urine Occult Blood 50 H Urine Nitrite Negative Urine Bilirubin Negative Urine Urobilinogen 1 H Ur Leukocyte Esterase 25 H Urine RBC 5-10 SEEN Urine WBC 5-10 SEEN Ur Squamous Epith Cells 0-5 SEEN Urine Bacteria 1+ Urine Mucus 0 SEEN Radiography Diagnostic Testing: Clinical Impression(s) from Imaging Studies Gallbladder Ultrasound 10/20/24 17:47 IMPRESSION: Moderately distended gallbladder, with cholelithiasis, small pericholecystic fluid, wall thickening and positive sonographic Huntley's sign, compatible with acute cholecystitis. [facility] Dis[facility] Plan Dx/Rx/DC Orders Clinical Impression: Abdominal pain, Fever, Acute cholecystitis, Gallstone Disposition Disposition: Acute Care Hospital [facility] What to do if you have Problems For any increased pain, shortness of breath, bleeding, nausea or vomiting, chestpain, or any unexpected problems, contact your Primary Care Provider. Call [facility] ([phone]) or report to the closest Emergency Room. Call 911 if necessary. 10/20/242036 <Electronically signed by Dillan Wu MD> Cosigner Signature (if applicable): CC: Dr. Heather Ruby, DO ~ Signed [facility] Work Phone: [phone] [facility] CONSULTATION REPORT NAME ACCOUNT SEX AGE ADMIT DISCHARGE PT MED. RECORD# NUMBER DATE DATE TYPE CARLINE, [id number] F 24 09/24/2024 1 LUCY V [id number] ROOM: 222 DATE OF : 2000 DICTATING PHYSICIAN: Julia Whitaker DATE OF CONSULTATION: September 24, 2024 REASON FOR CONSULTATION: Abdominal pain. HISTORY OF PRESENT ILLNESS: Mrs. Crowley is a 24-year-old female who presents to [facility] with approximately 24 hours of severe right upper quadrant/right upper epigastric abdominal pain. She has been experiencing similar attacks for the last several years. To her understanding, it is related to her having gallstones and biliary colic. She did report having some dark urine, but denies any other associated signs or symptoms or systematic illness. PAST MEDICAL HISTORY: She is currently 38 weeks . This is her first child I believe. PAST SURGICAL HISTORY: None. CURRENT MEDICATIONS: None. ALLERGIES: No known drug allergies. SOCIAL HISTORY: Negative x3. REVIEW OF SYSTEMS: Ten system review of systems are negative except as noted above. PHYSICAL EXAMINATION: GENERAL: In general, she is alert, oriented, and appropriate with no acute distress. CARDIOVASCULAR: Regular rate and rhythm. LUNGS: Clear to auscultation bilaterally. ABDOMEN: Soft, gravid with positive tenderness to palpation in the right upper quadrant with a positive Huntley sign. No rebound or guarding. EXTREMITIES: Extremities show no cyanosis, edema, or gross deformities. NEUROLOGIC: Neurologically, GCS of 15. Cranial nerves II-XII are grossly intact, 5/5 muscle strength in all groups, and sensation grossly intact. DIAGNOSTIC DATA: Laboratory evaluation reveals a CBC that is completely within normal limits. Comprehensive metabolic panel is significant for an AST of 131, ALT 137, and an alkaline phosphatase of 155. Total bilirubin is 4.8. There are no imaging studies. Page 1 of 2 LUCY CROWLEY V Brewing Director Report LUCY CROWLEY V : 2000 ASSESSMENT: This is a 24-year-old 38 week gravid female with cholelithiasis and suspected choledocholithiasis. RECOMMENDATIONS: We may consider getting a right upper quadrant ultrasound to confirm that she does have gallstones and visualize if there is any evidence of choledocholithiasis. In addition, we should obtain a HIDA scan to evaluate for common bile duct patency. However, we do not offer ERCP at [facility], so she may need to be transferred if there are positive findings on the right upper quadrant ultrasound and/or HIDA scan. Conversely, it would be appropriate to transfer her now and let the receiving hospital begin the workup and evaluation. Discussed with the patient that she will eventually need her gallbladder out. We would like to wait at least 6 weeks for women's physiology to return to normal before proceeding with laparoscopic cholecystectomy. In addition, [facility] tends to shift women that have mitigating factors such as her because she is considered a high-risk . Dictated By: Julia Whitaker MD 09/24/2024 12:01 JOB #: [id number] Transcribed By: am 09/24/2024 12:57 Electronically signed by: E-SIGN DR. WHITAKER 09/30/24 12:56 Page 2 of 2 LUCY CROWLEY V [facility] Discharge summary Author Carlin Negron [facility] Note Date/Time September 26, 2024 11: 37am [facility] Medical Records Department [address] [place] [address] Discharge Summary 09/26/24 1123 MR#: [id number] Acct: [id number] Name: CARLINELUCY V Rep #:[id number] : 2000 From: Carlin Klein PCP: Dr. Heather uRby DO Status:A DM IN Location: [facility] [id number] Providers Date of Admission: 09/25/24 Date of Discharge: 09/26/24 Primary Care Physician: Dr. Heather Ruby DO Consultations 09/25/24 18:34 Consult: Gastroenterology Routine Consulting Provider: [facility] Reason for Consult: Choledocholithiasis EMERGENT Consult: No MD Notified: Yes Date Notified: 09/25/24 Time Notified: 16:16 Method of Notification: ED Physician Initiated Consult: General Surgery Routine Consulting Provider: Chandan Mayo Reason for Consult: Choledocholithiasis EMERGENT Consult: No MD Notified: Yes Date Notified: 09/25/24 Time Notified: 16:14 Method of Notification: ED Physician Initiated Reason For Visit: ABD PAIN Diagnosis Discharge Diagnosis (1) Choledocholithiasis: Status: Acute Code(s): K80.50 - Calculus of bile duct without cholangitis or cholecystitis without obstruction Plan 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 [facility]/induced on 09/24/2024 at 38.6 weeks admitted vaginal delivery and then transferred to ER. #1. Acute choledocholithiasis with significant hyperbilirubinemia, with cholangitis: Patient has Charcot destroyed with RUQ abdominal pain, jaundice andchills. Patient admitted to [facility] floor. She had ERCP with biliary sphincterotomy and complete removal of CBD stone and temporary stent in ventral pancreatic duct and CBD. Impression: - The entire biliary tree was dilated, with a stone causing an obstruction. - Choledocholithiasis was found. Complete removal was accomplished by biliary sphincterotomy and balloon extraction. - A pancreatic sphincterotomy was performed. - The ventral pancreatic duct was swept and nothing was found. - One temporary stent was placed into the ventral pancreatic duct. - A biliary sphincterotomy was performed. - The biliary tree was swept. - One temporary stent was placed into the common bile duct. Patient was evaluated by surgeon. As per the note, patient would like to follow- up with Dr. Shaq Richter at [facility] for her cholecystectomy. He feels safe to be discharged today. Patient does not have fever. No leukocytosis. Platelet count normal. Electrolytes normal. Shows improvement in total bilirubin mainly direct hyperbilirubinemia from 4.1-0.99. Transaminases and ALPalso improving. Lipase elevated probably due to manipulation of pancreatic ductand CBD. Waiting for GI opinion for discharge. I think patient can be discharged on Augmentin 875 mg twice daily and continue vitamin. Follow-up in GI office in 1 month. #2. Recent spontaneous vaginal delivery with breast-feeding status: on vitamin #3. Normocytic anemia, suspect related with : Admission hemoglobin 11.7, MCV 90.7 #4. DVT prophylaxis: SCDs. Medications at Discharge Home Medications amoxicillin 875 mg-potassium clavulanate 125 mg tablet 1 tab PO BID 1 week #14 tabs 09/26/24 vits,calcium no.78-iron fumarate-folic acid 29 mg-1 mg tablet (Prenatabs FA) 1 tab PO DAILY@1200 30 days #30 tabs 09/26/24 sennosides 8.6 mg-docusate sodium 50 mg tablet (Stimulant Laxative Plus) 2 tab PO BID PRN PRN Constipation #0 tabs 09/26/24 Physical Exam Narrative Seen and examined No fever, but chills in the [facility] Right upper quadrant pain has resolved. No dysuria Physical exam General: Alert, Oriented x3, Cooperative HEENT: Icterus present. Atraumatic, PERRLA, EOMI, Normocephalic Oral: Oral mucosa moist no Gingival or Mucosal Lesions/ Ulcerations Neck: Supple, No JVD, Negative Carotid Bruits Chest wall/Lungs: Air entry diminished in bilateral lung bases. No crepitation/rhonchi Cardiovascular: Regular rate, Regular Rhythm, Normal S1, Normal S2, No M/G/R Abdomen: Bowel Sounds Present, Soft, Non Tender, Non-Distended : No dysuria. No renal angle tenderness. No suprapubic tenderness. Extremities: No edema, Capillary Refill Less than 3 Seconds Skin: No rashes, No breakdown Musculoskeletal: No Tenderness to Palpation of Joints or Extremities Neurological: Cranial nerves II-XII grossly intact, DTR 2+/4. No acute focal neurological deficit. Psych/Mental Status: Normal Affect, Appropriate. Weight / BMI Weight Weight: 208 lb 1.862 oz Body Mass Index (BMI) 35.5 ABG / Lab / Microbiology Data 09/26/24 05:40 09/26/24 05:40 Laboratory: Laboratory Results - last 24 hr 09/25/24 14:40: WBC 10.2, RBC 3.75 L, Hgb 11.7 L, Hct 34.0 L, MCV 90.7, MCH 31.2, MCHC 34.4, RDW Std Deviation 42.6, RDW Coeff of Rebeca 13.0, Plt Count 177, MPV 10.4, Immature Gran % (Auto) 0.900, Neut % (Auto) 77.6 H, Lymph % (Auto) 15.8 L, Mathews % (Auto) 4.9, Eos % (Auto) 0.4, Baso % (Auto) 0.4, Absolute Neuts (auto) 8.0 H, Absolute Lymphs (auto) 1.62, Nucleated RBC % 0, Sodium 137, Potassium 3.6, Chloride 104, Carbon Dioxide 22.6, Anion Gap 10, BUN 4, Creatinine 0.70, Est GFR (MDRD) Non-Af 123, BUN/Creatinine Ratio 6.2 L, Glucose 108 H, Calcium 9.0, Total Bilirubin 4.12 H, Direct Bilirubin 3.02 H, AST 74 H, ALT 95 H, Alkaline Phosphatase 154 H, Total Protein 6.2, Albumin 3.4 L, Globulin 2.8, Lipase 23 09/25/24 14:45: Lactic Acid < 1.0 09/26/24 05:40: WBC 9.1, RBC 3.63 L, Hgb 11.4 L, Hct 33.9 L, MCV 93.4, MCH 31.4,MCHC 33.6, RDW Std Deviation 45.0 H, RDW Coeff of Rebeca 13.1, Plt Count 195, MPV 10.5, Immature Gran % (Auto) 0.800, Neut % (Auto) 70.3 H, Lymph % (Auto) 22.4, Mathews % (Auto) 5.1, Eos % (Auto) 1.0, Baso % (Auto) 0.4, Absolute Neuts (auto) 6.4, Absolute Lymphs (auto) 2.03, Nucleated RBC % 0, Sodium 139, Potassium 3.9, Chloride 108, Carbon Dioxide 21.9, Anion Gap 9, BUN 5, Creatinine 0.70, Estim Creat Clear Calc 136.89, Est GFR (MDRD) Non-Af 123, BUN/Creatinine Ratio 7.8 L, Glucose 77, Calcium 8.1, Total Bilirubin 0.99, Direct Bilirubin 0.66 H, AST 51 H, ALT 70 H, Alkaline Phosphatase 130 H, Total Protein 5.9, Albumin 3.0 L, Globulin 2.9, Lipase 1358 H Radiography Diagnostic Testing: Radiology Impression Endo Retro Cholangiopancreatogram 09/25/24 17:15 IMPRESSION: ERCP with placement of pancreatic and CBD stents. Reading Location: [id number] D/C Instructions Discharge Diet: Light diet - advance as tolerated Weight Bearing Status: Weight bearing as tolerated Call your doctor if you observe: Fever of 101 or Higher, Coldness, Increased Pain, Numbness or Tingling, Change in Color, Inability to urinate, Inability to have a bowel movement, Shortness of breath, Dizziness, Fainting spells, Swellingin the ankles, Chest pain, Prolonged hiccupping, Increased palpitations (irregular heartbeat) and Calf discomfort DC O2, CPAP, BIPAP Needs Home O2 Discharge instructions: No When: IN 2 WEEKS Meaningful Use Info Meaningful Use Meaningful Use Diagnoses (Choose all that apply): None applicable Ischemic Stroke Statin Dosing Therapy Reference: STATIN DOSE THERAPY REFERENCE: * Patients > 75 years receive moderate or high dose statin therapy. * Patients 75 years or YOUNGER should receive HIGH intensity statin dose unless contraindicated. You will be required to document reason for non-treatment if statin daily dose does not meet guidelines. HIGH DOSE STATIN THERAPY DAILY Atorvastatin > than or = to 40 mg Rosuvastatin > than or = to 20 mg Amlodipine + Atorvastatin > than or = to 2.5/40 mg Ezetimibe + Simvastatin 10/80 mg Simvastatin 80mg Discharge Plan Admission Admit Date/Time: 09/25/24 16:14 Attending Provider: Carlin Negron Primary Care Provider: Heather Ruby Consulting Providers: Chandan Mayo; Ld Chacon Discharge Orders/Prescriptions Prescriptions: New sennosides-docusate sodium [Stimulant Laxative Plus] 8.6-50 mg Tablet 2 tab PO BID PRN PRN (Reason: Constipation) Qty: 0 0RF Prenatabs FA 29-1 mg Tablet 1 tab PO DAILY@1200 30 Days Qty: 30 3RF amoxicillin-pot clavulanate 875-125 mg tablet 1 tab PO BID 7 Days Qty: 14 0RF Referrals / Follow Up: Chandan Mayo MD [Med Staff - Active Staff] - Within 2 Weeks Heather Ruby DO [Primary Care Provider] - Within 2 Weeks (As scheduled) Ld Chacon DO [Med Staff - Active Staff] - Within 1 Month Disposition Disposition (needs filled in before D/C Order can be placed): Home, Self Care Charges/Coding Visit Charges Inpatient E&M: 06611 Disch Hosp >30min 09/26/24 1137 <Electronically signed by Carlin Negron MD> Cosigner Signature (if applicable): CC: Dr. Heather Ruby DO; Dr. Carlin Negron MD~ Signed [facility] Work Phone: [phone] 520-794804-19-2025 Discharge summary Author Carlin Negron [facility] Note Date/Time September 26, 2024 11: 23am [facility] Medical Records Department [address] [place] [address] Instructions for Home/Discharge Instructions 09/26/24 1118 MR#: [id number] Acct: [id number] Name: LUCY CROWLEY V Rep #:[id number] : 2000 From: Carlin Klein PCP: Dr. Heather Ruby DO Status:A DM IN Discharge Instructions Diet Discharge Diet: Light diet - advance as tolerated DC O2, CPAP, BIPAP needs Home O2 Discharge instructions: No Dressing / Incision Discharge Activity: Return to Normal Activity Weight Bearing Status: Weight bearing as tolerated Dressing / Incision Call your doctor if you observe: Fever of 101 or Higher, Coldness, Increased Pain, Numbness or Tingling, Change in Color, Inability to urinate, Inability to have a bowel movement, Shortness of breath, Dizziness, Fainting spells, Swellingin the ankles, Chest pain, Prolonged hiccupping, Increased palpitations (irregular heartbeat) and Calf discomfort Follow Up Care When: IN 2 WEEKS Test Results: Test results from this visit will be discussed in further detail at your follow- up appointment, if applicable. Discharge Plan Admission Admit Date/Time: 09/25/24 16:14 Attending Provider: Carlin Negron Primary Care Provider: Heather Ruby Consulting Providers: Chandan Mayo; Ld Chacon Discharge Orders/Prescriptions Prescriptions: New sennosides-docusate sodium [Stimulant Laxative Plus] 8.6-50 mg Tablet 2 tab PO BID PRN PRN (Reason: Constipation) Qty: 0 0RF Prenatabs FA 29-1 mg Tablet 1 tab PO DAILY@1200 30 Days Qty: 30 3RF amoxicillin-pot clavulanate 875-125 mg tablet 1 tab PO BID 7 Days Qty: 14 0RF Referrals / Follow Up: Chandan Mayo MD [Med Staff - Active Staff] - Within 2 Weeks Heather Ruby DO [Primary Care Provider] - Within 2 Weeks (As scheduled) Ld Chacon DO [Med Staff - Active Staff] - Within 1 Month Disposition Disposition (needs filled in before D/C Order can be placed): Home, Self Care 09/26/24 1123<Electronically signed by Carlin Negron MD>Carlin Negron MD CC: Dr. Chandan Mayo MD; SARA Andrade DO ~ Signed [facility] Work Phone: [phone]) 562-435504-19-2025 Discharge summary [facility] Medical Records Department [address] [place] [address] Discharge Summary 09/26/24 1123 MR#: [id number] Acct: [id number] Name: LUCY CROWLEY V Rep #:[id number] : 2000 From: Carlin Klein PCP: Dr. Heather Ruby DO Status:A DM IN [id number] Prov[facility] Date of Admission: 09/25/24 Date of Discharge: 09/26/24 Primary Care Physician: Dr. Heather Ruby DO Consultations 09/25/24 18:34 Consult: Gastroenterology Routine Consulting Provider: [facility] Reason for Consult: Choledocholithiasis EMERGENT Consult: No MD Notified: Yes Date Notified: 09/25/24 Time Notified: 16:16 Method of Notification: ED Physician Initiated Consult: General Surgery Routine Consulting Provider: Chandan Mayo Reason for Consult: Choledocholithiasis EMERGENT Consult: No MD Notified: Yes Date Notified: 09/25/24 Time Notified: 16:14 Method of Notification: ED Physician Initiated Reason For Visit: ABD PAIN Diagnosis Discharge Diagnosis (1) Choledocholithiasis: Status: Acute Code(s): K80.50 - Calculus of bile duct without cholangitis or cholecystitis without obstruction Plan 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 She was admitted in December on 09/24 where she was delivered/induced on 09/24/2024 at 38.6 weeks admitted vaginal delivery and then transferred to ER. #1. Acute choledocholithiasis with significant hyperbilirubinemia, with cholangitis: Patient has Charcot destroyed with RUQ abdominal pain, jaundice andchills. Patient admitted to [facility] floor. She had ERCP with biliary sphincterotomy and complete removal of CBD stone and temporary stent in ventral pancreatic duct and CBD. Impression: - The entire biliary tree was dilated, with a stone causing an obstruction. - Choledocholithiasis was found. Complete removal was accomplished by biliary sphincterotomy and balloon extraction. - A pancreatic sphincterotomy was performed. - The ventral pancreatic duct was swept and nothing was found. - One temporary stent was placed into the ventral pancreatic duct. - A biliary sphincterotomy was performed. - The biliary tree was swept. - One temporary stent was placed into the common bile duct. Patient was evaluated by surgeon. As per the note, patient would like to follow- up with Dr. Shaq Richter at [facility] for her cholecystectomy. He feels safe to be discharged today. Patient does not have fever. No leukocytosis. Platelet count normal. Electrolytes normal. Shows improvement in total bilirubin mainly direct hyperbilirubinemia from 4.1-0.99. Transaminases and ALPalso improving. Lipase el evated probably due to manipulation of pancreatic ductand CBD. Waiting for GI opinion for discharge. I think patient can be discharged on Augmentin 875 mg twice daily and continue vitamin. Follow-up in GI office in 1 month. #2. Recent spontaneous vaginal delivery with breast-feeding status: on vitamin #3. Normocytic anemia, suspect related with : Admission hemoglobin 11.7, MCV 90.7 #4. DVT prophylaxis: SCDs. Medications at Discharge Home Medications amoxicillin 875 mg-potassium clavulanate 125 mg tablet 1 tab PO BID 1 week #14 tabs 09/26/24 vits,calcium no.78-iron fumarate-folic acid 29 mg-1 mg tablet (Prenatabs FA) 1 tab PO DAILY@1200 30 days #30 tabs 09/26/24 sennosides 8.6 mg-docusate sodium 50 mg tablet (Stimulant Laxative Plus) 2 tab PO BID PRN PRN Constipation #0 tabs 09/26/24 Physical Exam Narrative Seen and examined No fever, but chills in the [facility] Right upper quadrant pain has resolved. No dysuria Physical exam General: Alert, Oriented x3, Cooperative HEENT: Icterus present. Atraumatic, PERRLA, EOMI, Normocephalic Oral: Oral mucosa moist no Gingival or Mucosal Lesions/ Ulcerations Neck: Supple, No JVD, Negative Carotid Bruits Chest wall/Lungs: Air entry diminished in bilateral lung bases. No crepitation/rhonchi Cardiovascular: Regular rate, Regular Rhythm, Normal S1, Normal S2, No M/G/R Abdomen: Bowel Sounds Present, Soft, Non Tender, Non-Distended : No dysuria. No renal angle tenderness. No suprapubic tenderness. Extremities: No edema, Capillary Refill Less than 3 Seconds Skin: No rashes, No breakdown Musculoskeletal: No Tenderness to Palpation of Joints or Extremities Neurological: Cranial nerves II-XII grossly intact, DTR 2+/4. No acute focal neurological deficit. Psych/Mental Status: Normal Affect, Appropriate. Weight / BMI Weight Weight: 208 lb 1.862 oz Body Mass Index (BMI) 35.5 ABG / Lab / Microbiology Data 09/26/24 05:40 09/26/24 05:40 Laboratory: Laboratory Results - last 24 hr 09/25/24 14:40: WBC 10.2, RBC 3.75 L, Hgb 11.7 L, Hct 34.0 L, MCV 90.7, MCH 31.2, MCHC 34.4, RDW Std Deviation 42.6, RDW Coeff of Rebeca 13.0, Plt Count 177, MPV 10.4, Immature Gran % (Auto) 0.900, Neut% (Auto) 77.6 H, Lymph % (Auto) 15.8 L, Mathews % (Auto) 4.9, Eos % (Auto) 0.4, Baso % (Auto) 0.4, Absolute Neuts (auto) 8.0 H, Absolute Lymphs (auto) 1.62, Nucleated RBC % 0, Sodium 137, Potassium 3.6,Chloride 104, Carbon Dioxide 22.6, Anion Gap 10, BUN 4, Creatinine 0.70, Est GFR (MDRD) Non-Af 123,BUN/Creatinine Ratio 6.2 L, Glucose 108 H, Calcium 9.0, Total Bilirubin 4.12 H, Direct Bilirubin 3.02 H, AST 74 H, ALT 95 H, Alkaline Phosphatase 154 H, Total Protein 6.2, Albumin 3.4 L, Globulin 2.8, Lipase 23 09/25/24 14:45: Lactic Acid < 1.0 09/26/24 05:40: WBC 9.1, RBC 3.63 L, Hgb 11.4 L, Hct 33.9 L, MCV 93.4, MCH 31.4,MCHC 33.6, RDW Std Deviation 45.0 H, RDW Coeff of Rebeca 13.1, Plt Count 195, MPV 10.5, Immature Gran % (Auto) 0.800, Neut% (Auto) 70.3 H, Lymph % (Auto) 22.4, Mathews % (Auto) 5.1, Eos % (Auto) 1.0, Baso % (Auto) 0.4, Absolute Neuts (auto) 6.4, Absolute Lymphs (auto) 2.03, Nucleated RBC % 0, Sodium 139, Potassium 3.9, Chloride 108, Carbon Dioxide 21.9, Anion Gap 9, BUN 5, Creatinine 0.70, Estim Creat Clear Calc 136.89, Est GFR (MDRD) Non-Af 123, BUN/Creatinine Ratio 7.8 L, Glucose 77, Calcium 8.1, Total Bilirubin 0.99, Direct Bilirubin 0.66 H, AST 51 H, ALT 70 H, Alkaline Phosphatase 130 H, Total Protein 5.9, Albumin 3.0 L, Globulin 2.9, Lipase 1358 H Radiography Diagnostic Testing: Radiology Impression Endo Retro Cholangiopancreatogram 09/25/24 17:15 IMPRESSION: ERCP with placement of pancreatic and CBD stents. Reading Location: [id number] D/C Instructions Discharge Diet: Light diet - advance as tolerated Weight Bearing Status: Weight bearing as tolerated Call your doctor if you observe: Fever of 101 or Higher, Coldness, Increased Pain, Numbness or Tingling, Change in Color, Inability to urinate, Inability to have a bowel movement, Shortness of breath, Dizziness, Fainting spells, Swellingin the ankles, Chest pain, Prolonged hiccupping, Increased palpitations (irregular heartbeat) and Calf discomfort DC O2, CPAP, BIPAP Needs Home O2 Discharge instructions: No When: IN 2 WEEKS Meaningful Use Info Meaningful Use Meaningful Use Diagnoses (Choose all that apply): None applicable Ischemic Stroke Statin Dosing Therapy Reference: STATIN DOSE THERAPY REFERENCE: * Patients > 75 years receive moderate or high dose statin therapy. * Patients 75 years or YOUNGER should receive HIGH intensity statin dose unless contraindicated. You will be required to document reason for non-treatment if statin daily dose does not meet guidelines. HIGH DOSE STATIN THERAPY DAILY Atorvastatin > than or = to 40 mg Rosuvastatin > than or = to 20 mg Amlodipine + Atorvastatin > than or = to 2.5/40 mg Ezetimibe + Simvastatin 10/80 mg Simvastatin 80mg Discharge Plan Admission Admit Date/Time: 09/25/24 16:14 Attending Provider: Carlin Negron Primary Care Provider: Heather Ruby Consulting Providers: Chandan Mayo; Ld Chacon Discharge Orders/Prescriptions Prescriptions: New sennosides-docusate sodium [Stimulant Laxative Plus] 8.6-50 mg Tablet 2 tab PO BID PRN PRN (Reason: Constipation) Qty: 0 0RF Prenatabs FA 29-1 mg Tablet 1 tab PO DAILY@1200 30 Days Qty: 30 3RF amoxicillin-pot clavulanate 875-125 mg tablet 1 tab PO BID 7 Days Qty: 14 0RF Referrals / Follow Up: Chandan Mayo MD [Med Staff - Active Staff] - Within 2 Weeks Heather Ruby DO [Primary Care Provider] - Within 2 Weeks (As scheduled) Ld Chacon DO [Med Staff - Active Staff] - Within 1 Month Disposition Disposition (needs filled in before D/C Order can be placed): Home, Self Care Charges/Coding Visit Charges Inpatient E&M: 68587 Disch Hosp >30min 09/26/24 1137 Cosigner Signature (if applicable): CC: Dr. Heather Ruby DO; Dr. Carlin Negron MD~ Signed [facility]04-19-2025 Discharge summary [facility] Medical Records Department [address] [place] [address] Instructions for Home/Discharge Instructions 09/26/24 1118 MR#: [id number] Acct: [id number] Name: LUCY CROWLEY V Rep #:[id number] : 2000 From: Carlin Klein PCP: Dr. Heather Ruby DO Status:A DM IN Discharge Instructions Diet Discharge Diet: Light diet - advance as tolerated DC O2, CPAP, BIPAP needs Home O2 Discharge instructions: No Dressing / Incision Discharge Activity: Return to Normal Activity Weight Bearing Status: Weight bearing as tolerated Dressing / Incision Call your doctor if you observe: Fever of 101 or Higher, Coldness, Increased Pain, Numbness or Tingling, Change in Color, Inability to urinate, Inability to have a bowel movement, Shortness of breath, Dizziness, Fainting spells, Swellingin the ankles, Chest pain, Prolonged hiccupping, Increased palpitations (irregular heartbeat) and Calf discomfort Follow Up Care When: IN 2 WEEKS Test Results: Test results from this visit will be discussed in further detail at your follow- up appointment, if applicable. Discharge Plan Admission Admit Date/Time: 09/25/24 16:14 Attending Provider: Carlin Negron Primary Care Provider: Heather Ruby Consulting Providers: Chandan Mayo; Ld Chacon Discharge Orders/Prescriptions Prescriptions: New sennosides-docusate sodium [Stimulant Laxative Plus] 8.6-50 mg Tablet 2 tab PO BID PRN PRN (Reason: Constipation) Qty: 0 0RF Prenatabs FA 29-1 mg Tablet 1 tab PO DAILY@1200 30 Days Qty: 30 3RF amoxicillin-pot clavulanate 875-125 mg tablet 1 tab PO BID 7 Days Qty: 14 0RF Referrals / Follow Up: Chandan Mayo MD [Med Staff - Active Staff] - Within 2 Weeks Heather Ruby DO [Primary Care Provider] - Within 2 Weeks (As scheduled) Ld Chacon DO [Med Staff - Active Staff] - Within 1 Month Disposition Disposition (needs filled in before D/C Order can be placed): Home, Self Care 09/26/24 1123Pxochilt Negron MD CC: Dr. Chandan Mayo MD; SARA Andrade DO ~ Signed [facility]04-19-2025 [facility] Medical Records Department [address] [place] [address] Discharge Summary 09/26/24 1123 MR#: [id number] Acct: [id number] Name: LUCY CROWLEY Jamar Rep #: [id number] : 2000 From: Carlin Negron MD PCP: Dr. Heather Ruby DO Status:ADM IN [facility] Prov[facility] Date of Admission: 09/25/24 Date of Discharge: 09/26/24 Primary Care Physician: Dr. Heather Ruby DO Consultations 09/25/24 18:34 Consult: Gastroenterology Routine Consulting Provider: [facility] Reason for Consult: Choledocholithiasis EMERGENT Consult: No Notified: Yes Date Notified: 09/25/24 Time Notified: 16:16 Method of Notification: ED Physician Initiated Consult: General Surgery Routine Consulting Provider: Chandan Mayo Reason for Consult: Choledocholithiasis EMERGENT Consult: No Notified: Yes Date Notified: 09/25/24 Time Notified: 16:14 Method of Notification: ED Physician Initiated Reason For Visit: ABD PAIN Diagnosis Discharge Diagnosis (1) Choledocholithiasis: Status: Acute Code(s): K80.50 - Calculus of bile duct without cholangitis or cholecystitis without obstruction Plan The patient is a 24 y/o Worship F with history of biliary colic intermittently for about 10 years but does not see a doctor often came to ED with epigastric and right upper quadrant pain 09/23 approximately 30 minutes following her meals associated nausea, emesis and diaphoresis. She was admitted in [place] on 09[place]24 where she was delivered/induced on 09/24/2024 at 38.6 weeks admitted vaginal delivery and then transferred to ER. #1. Acute choledocholithiasis with significant hyperbilirubinemia, with cholangitis: Patient has Charcot destroyed with RUQ abdominal pain, jaundice and chills. Patient admitted to [facility]. She had ERCP with biliary sphincterotomy and complete removal of CBD stone and temporary stent in ventral pancreatic duct and CBD. Impression: - The entire biliary tree was dilated, with a stone causing an obstruction. - Choledocholithiasis was found. Complete removal was accomplished by biliary sphincterotomy and balloon extraction. - A pancreatic sphincterotomy was performed. - The ventral pancreatic duct was swept and nothing was found. - One temporary stent was placed into the ventral pancreatic duct. - A biliary sphincterotomy was performed. - The biliary tree was swept. - One temporary stent was placed into the common bile duct. Patient was evaluated by surgeon. As per the note, patient would like to follow- up with Dr. Shaq Richter at [facility] for her cholecystectomy. He feels safe to be discharged today. Patient does not have fever. No leukocytosis. Platelet count normal. Electrolytes normal. Shows improvement in total bilirubin mainly direct hyperbilirubinemia from 4.1-0.99. Transaminases and ALP also improving. Lipase elevated probably due to manipulation of pancreatic duct and CBD. Waiting for GI opinion for discharge. I think patient can be discharged on Augmentin 875 mg twice daily and continue vitamin. Follow-up in GI office in 1 month. #2. Recent spontaneous vaginal delivery with breast-feeding status: on vitamin #3. Normocytic anemia, suspect related with : Admission hemoglobin 11.7, MCV 90.7 #4. DVT prophylaxis: SCDs. Medications at Discharge Home Medications amoxicillin 875 mg-potassium clavulanate 125 mg tablet 1 tab PO BID 1 week #14 tabs 09/26/24 vits,calcium no.78-iron fumarate-folic acid 29 mg-1 mg tablet (Prenatabs FA) 1 tab PO DAILY@1200 30 days #30 tabs 09/26/24 sennosides 8.6 mg-docusate sodium 50 mg tablet (Stimulant Laxative Plus) 2 tab PO BID PRN PRN Constipation #0 tabs 09/26/24 Physical Exam Narrative Seen and examined No fever, but chills in the [facility] Right upper quadrant pain has resolved. No dysuria Physical exam General: Alert, Oriented x3, Cooperative HEENT: Icterus present. Atraumatic, PERRLA, EOMI, Normocephalic Oral: Oral mucosa moist no Gingival or Mucosal Lesions/ Ulcerations Neck: Supple, No JVD, Negative Carotid Bruits Chest wall/Lungs: Air entry diminished in bilateral lung bases. No crepitation/rhonchi Cardiovascular: Regular rate, Regular Rhythm, Normal S1, Normal S2, No M/G/R Abdomen: Bowel Sounds Present, Soft, Non Tender, Non-Distended : No dysuria. No renal angle tenderness. No suprapubic tenderness. Extremities: No edema, Capillary Refill Less than 3 Seconds Skin: No rashes, No breakdown Musculoskeletal: No Tenderness to Palpation of Joints or Extremities Neurological: Cranial nerves II-XII grossly intact, DTR 2+/4. No acute focal neurological deficit. Psych/Mental Status: Normal Affect, Appropriate. Weight / BMI Weight Weight: 208 lb 1.862 oz Body Mass Index (BMI) 35.5 ABG / Lab / M (more content not included)...[facility]04-19-2025 Consult note Author Chandan Mayo [facility] Note Date/Time September 26, 2024 9:1 9am [facility] Medical Records Department [address] [place] [address] Consultation - Surgical 09/26/24907 MR#: [id number] Acct: [id number] Name: LUCY CROWLEY V Rep #:[id number] : 2000 From: Chandan bell MD PCP: Dr. Heather Ruby, Status:A DM IN Location: NE3 [id number] Assessment & Plan Assessment/Plan (1) Choledocholithiasis: PLAN: Patient gave the day before presentation she presented then with choledocholithiasis. She had ERCP yesterday with stent placement and stone removal. She is feeling well this morning. I will start her on clear liquids. The patient would like to follow-up with Dr. Shaq Richter at [facility] for her cholecystectomy. I will refer her on Saturday. I gave her my card in case he is unable to do the surgery and she can follow-up with me. I believe she is safe to be discharged home today or tomorrow depending on hospitalist service. She has a stent in place to prevent further blockage. Chandan Mayo MD Pager: [facility] [address] [place] [address], [address] [place] [address] Office: HPI Consult Data Date of Consult: 09/26/24 HPI Narrative HPI Narrative: LUCY CROWLEY, is a 24 F who presents with choledocholithiasis from outside hospital. She underwent ERCP yesterday with stone removal and stent placement. Currently she is not having any pain. [facility] Medical History Biliary colic Home Medications ?Medication ?Instructions ?Recorded ?Last Taken ?Type NK 09/25/24 Unknown History Allergy/AdvReac Type Severity Reaction Status Date / Time No Known Allergies Allergy Verified 09/25/24 14:07 Family History Mother No problems noted. Father No problems noted. Surgical History Hx of appendectomy Social History household members: spouse, children and other details: 2 older children at home, 1 miscarriage, 1 09/24/24. Smoking Status: Never smoker alcohol intake: never substance use type: does not use ROS Constitutional Constitutional: Denies anorexia, chills, fatigue or fever(s) Eyes Eyes: Denies blurry vision ENT HEENT: Denies abnormal hearing Gastrointestinal Gastrointestinal: Reports abdominal pain; Denies nausea or vomiting Genitourinary Genitourinary: Denies change in urinary stream Musculoskeletal Musculoskeletal: Denies abnormal gait Psychiatric Psychiatric: Denies anxiety Endocrine Endocrinology: Denies flushing Hematologic/Lymphatic Hematologic/Lymphatic: Denies easy bleeding Physical Exam Const alert and oriented x3 HEENT normocephalic Eyes PERRL Resp normal respiratory effort Cardio Rate: regular rate Rhythm: regular rhythm GI soft to palpation and non-tender Lab / Micro Data 09/26/24 05:40 09/26/24 05:40 Labs: Laboratory Results - last 24 hr 09/25/24 14:40: WBC 10.2, RBC 3.75 L, Hgb 11.7 L, Hct 34.0 L, MCV 90.7, MCH 31.2, MCHC 34.4, RDW Std Deviation 42.6, RDW Coeff of Rebeca 13.0, Plt Count 177, MPV 10.4, Immature Gran % (Auto) 0.900, Neut % (Auto) 77.6 H, Lymph % (Auto) 15.8 L, Mathews % (Auto) 4.9, Eos % (Auto) 0.4, Baso % (Auto) 0.4, Absolute Neuts (auto) 8.0 H, Absolute Lymphs (auto) 1.62, Nucleated RBC % 0, Sodium 137, Potassium 3.6, Chloride 104, Carbon Dioxide 22.6, Anion Gap 10, BUN 4, Creatinine 0.70, Est GFR (MDRD) Non-Af 123, BUN/Creatinine Ratio 6.2 L, Glucose 108 H, Calcium 9.0, Total Bilirubin 4.12 H, Direct Bilirubin 3.02 H, AST 74 H, ALT 95 H, Alkaline Phosphatase 154 H, Total Protein 6.2, Albumin 3.4 L, Globulin 2.8, Lipase 23 09/25/24 14:45: Lactic Acid < 1.0 09/26/24 05:40: WBC 9.1, RBC 3.63 L, Hgb 11.4 L, Hct 33.9 L, MCV 93.4, MCH 31.4,MCHC 33.6, RDW Std Deviation 45.0 H, RDW Coeff of Rebeca 13.1, Plt Count 195, MPV 10.5, Immature Gran % (Auto) 0.800, Neut % (Auto) 70.3 H, Lymph % (Auto) 22.4, Mathews % (Auto) 5.1, Eos % (Auto) 1.0, Baso % (Auto) 0.4, Absolute Neuts (auto) 6.4, Absolute Lymphs (auto) 2.03, Nucleated RBC % 0, Sodium 139, Potassium 3.9, Chloride 108, Carbon Dioxide 21.9, Anion Gap 9, BUN 5, Creatinine 0.70, Estim Creat Clear Calc 136.89, Est GFR (MDRD) Non-Af 123, BUN/Creatinine Ratio 7.8 L, Glucose 77, Calcium 8.1, Total Bilirubin 0.99, Direct Bilirubin 0.66 H, AST 51 H, ALT 70 H, Alkaline Phosphatase 130 H, Total Protein 5.9, Albumin 3.0 L, Globulin 2.9, Lipase 1358 H Imaging Radiology Impression Endo Retro Cholangiopancreatogram 09/25/24 17:15 IMPRESSION: ERCP with placement of pancreatic and CBD stents. Reading Location: [id number] 09/26/24918 <Electronically signed by Chandan Mayo MD> Cosigner Signature (if applicable): CC: Dr. Heather Ruby DO~ Signed [facility] Work Phone: 1(140) 422-966404-19-2025 Consult note [facility] Medical Records Department [address] [place] [address] Consultation - Surgical 09/26/24 0908 MR#: [id number] Acct: [id number] Name: LUCY CROWLEY V Rep #:[id number] : 2000 24 From: Chandan bell MD PCP: Dr. Heather Ruby DO Status:A DM IN Location: MS3 [id number] Assessment & Plan Assessment/Plan (1) Choledocholithiasis: PLAN: Patient gave the day before presentation she presented then with choledocholithiasis. She had ERCP yesterday with stent placement and stone removal. She is feeling well this morning. I will start her on clear liquids. The patient would like to follow-up with Dr. Shaq Richter at [facility] for her cholecystectomy. I will refer her on Saturday. I gave her my card in case he is unable to do the surgery and she can follow-up with me. I believe she is safe to be discharged home today or tomorrow depending on hospitalist service. She has a stent in place to prevent further blockage. Chandan Mayo MD Pager: [facility] [address] [place] [address], [address] [place] [address] Office: HPI Consult Data Date of Consult: 09/26/24 HPI Narrative HPI Narrative: LUCY CROWLEY, is a 24 F who presents with choledocholithiasis from outside hospital. She underwentERCP yesterday with stone removal and stent placement. Currently she is not having any pain. [facility] Medical History Biliary colic Home Medications ?Medication ?Instructions ?Recorded ?Last Taken ?Type NK 09/25/24 Unknown History Allergy/AdvReac Type Severity Reaction Status Date / Time No Known Allergies Allergy Verified 09/25/24 14:07 Family History Mother No problems noted. Father No problems noted. Surgical History Hx of appendectomy Social History household members: spouse, children and other details: 2 older children at home, 1 miscarriage, 1 09/24/24. Smoking Status: Never smoker alcohol intake: never substance use type: does not use ROS Constitutional Constitutional: Denies anorexia, chills, fatigue or fever(s) Eyes Eyes: Denies blurry vision ENT HEENT: Denies abnormal hearing Gastrointestinal Gastrointestinal: Reports abdominal pain; Denies nausea or vomiting Genitourinary Genitourinary: Denies change in urinary stream Musculoskeletal Musculoskeletal: Denies abnormal gait Psychiatric Psychiatric: Denies anxiety Endocrine Endocrinology: Denies flushing Hematologic/Lymphatic Hematologic/Lymphatic: Denies easy bleeding Physical Exam Const alert and oriented x3 HEENT normocephalic Eyes PERRL Resp normal respiratory effort Cardio Rate: regular rate Rhythm: regular rhythm GI soft to palpation and non-tender Lab / Micro Data 09/26/24 05:40 09/26/24 05:40 Labs: Laboratory Results - last 24 hr 09/25/24 14:40: WBC 10.2, RBC 3.75 L, Hgb 11.7 L, Hct 34.0 L, MCV 90.7, MCH 31.2, MCHC 34.4, RDW Std Deviation 42.6, RDW Coeff of Rebeca 13.0, Plt Count 177, MPV 10.4, Immature Gran % (Auto) 0.900, Neut% (Auto) 77.6 H, Lymph % (Auto) 15.8 L, Mathews % (Auto) 4.9, Eos % (Auto) 0.4, Baso % (Auto) 0.4, Absolute Neuts (auto) 8.0 H, Absolute Lymphs (auto) 1.62, Nucleated RBC % 0, Sodium 137, Potassium 3.6,Chloride 104, Carbon Dioxide 22.6, Anion Gap 10, BUN 4, Creatinine 0.70, Est GFR (MDRD) Non-Af 123,BUN/Creatinine Ratio 6.2 L, Glucose 108 H, Calcium 9.0, Total Bilirubin 4.12 H, Direct Bilirubin 3.02 H, AST 74 H, ALT 95 H, Alkaline Phosphatase 154 H, Total Protein 6.2, Albumin 3.4 L, Globulin 2.8, Lipase 23 09/25/24 14:45: Lactic Acid < 1.0 09/26/24 05:40: WBC 9.1, RBC 3.63 L, Hgb 11.4 L, Hct 33.9 L, MCV 93.4, MCH 31.4,MCHC 33.6, RDW Std Deviation 45.0 H, RDW Coeff of Rebeca 13.1, Plt Count 195, MPV 10.5, Immature Gran % (Auto) 0.800, Neut% (Auto) 70.3 H, Lymph % (Auto) 22.4, Mathews % (Auto) 5.1, Eos % (Auto) 1.0, Baso % (Auto) 0.4, Absolute Neuts (auto) 6.4, Absolute Lymphs (auto) 2.03, Nucleated RBC % 0, Sodium 139, Potassium 3.9, Chloride 108, Carbon Dioxide 21.9, Anion Gap 9, BUN 5, Creatinine 0.70, Estim Creat Clear Calc 136.89, Est GFR (MDRD) Non-Af 123, BUN/Creatinine Ratio 7.8 L, Glucose 77, Calcium 8.1, Total Bilirubin 0.99, Direct Bilirubin 0.66 H, AST 51 H, ALT 70 H, Alkaline Phosphatase 130 H, Total Protein 5.9, Albumin 3.0 L, Globulin 2.9, Lipase 1358 H Imaging Radiology Impression Endo Retro Cholangiopancreatogram 09/25/24 17:15 IMPRESSION: ERCP with placement of pancreatic and CBD stents. Reading Location: [facility] 09/26/24 0919 Cosigner Signature (if applicable): CC: Dr. Heather Ruby DO~ Signed [facility]04-19-2025 Radiology Diagnostic study note [facility] Imaging Services [address] [place] [address] ERCP Biliary/Pancreas MR#: [id number] Acct: [id number] Name: LUCY CROWLEY V Rep #: [id number] : 2000 F 24 From: Duke Cruz MD PCP: Dr. Heather Ruby DO Status: A DM IN Study:ERCP Biliary/Pancreas Date of Exam: 09/25/24 Exam# [id number] Ordering Dr: Smitha Chacon DO EXAM: ERCP biliary/pancreas CLINICAL HISTORY: ERCP TECHNIQUE: Fluoroscopy for ERCP with 9 spot images FINDINGS: Fluoroscopy time 7.0 seconds Total dose 2.08 mGy Placement of a pancreatic duct stent. Cannulation of the common bile duct. Contrast is seen within a dilated appearing common bile duct. Contrast fills an intrahepatic duct which appears nondilated. A gallbladder is not definitely seen. Placement of a CBD stent. RAD/ERCP Biliary/Pancreas IMPRESSION: ERCP with placement of pancreatic and CBD stents. Reading Location: [id number] CC: Dr. Heather Ruby DO; Ld hCacon, ~ Lens Finisher: Signed [facility]04-18-2025 Consult note Author Saran Fragoso [facility] Note Date/Time September 25, 2024 6:0 5pm [facility] Medical Records Department [address] [place] [address] Anesthesia Postop Eval II 09/25/24 1805 MR#: [id number] Acct: [id number] Name: LUCY CROWLEY V Rep #:[id number] : 2000 24 From: Saran Fragoso MD PCP: Dr. Heather Ruby DO Status:A DM IN Y Race: C Location: [address] Anesthesia Postop Eval I Sum Postop Eval Completion status Anesthesia document: Postop Eval 1 completed: Yes Anesthesia Postop Eval I Summary Anesthesia Postop Eval I Summary: Anesthesia Postop Eval I: Assessment Summary Airway patent Yes 09/25/24 18:04 Spontaneous unlabored Yes 09/25/24 18:04 respirations Mental status Awake 09/25/24 18:04 nausea No 09/25/24 18:04 Vomiting No 09/25/24 18:04 Anesthesia Postop Eval I: Fluid Summary Crystalloid volume administer 400 09/25/24 18:04 (ml) Colloids volume administered ( ml) Blood Product volume administered (ml) Total IV fluid infused 400 09/25/24 18:04 Anesthesia Postop Eval I: Summary Notes Anesthesia Complication No 09/25/24 18:04 Anesthesia Complication Comment: Post-operative progress note Anesthesia: Postop Eval II Evaluation Mental status: Awake Pain Level: 0 nausea: No Vomiting: No 09/25/241804 <Electronically signed by Saran Fragoso MD > Date _ Saran Fragoso MD Cosigner Signature: Date CC: ~ Signed [facility] Work Phone: 1(896) 463-903004-18-2025 Consult note Author Saran [facility] Note Date/Time September 25, 2024 6:0 4pm [facility] Medical Records Department [address] [place] [address] Anesthesia Postop Eval I 09/25/241802 MR#: [id number] Acct: [id number] Name: LUCY CROWLEY Jamar Rep #:[id number] : 2000 From: Saran Fragoso MD PCP: Dr. Heather Ruby, DO Status:A DM IN Y Race: C Location: [place] [address] Anesthesia: Postop Eval I Current Vital Signs Temperature: 97.6 F Pulse Rate: 96 Blood Pressure: 112/78 Respiratory Rate: 16 Pulse Ox: 94 Oxygen Delivery Method: Room Air Assessment Airway patent: Yes Spontaneous unlabored respirations: Yes Mental status: Awake nausea: No Vomiting: No Anesthesia Complication: No Fluid Hydration Crystalloid volume administer (ml): 400 Total IV fluid infused: 400 Progress Note Anesthesia document: Postop Eval 1 completed: Yes 09/25/241803 <Electronically signed by Saran Fragoso MD > Date _ Saran Fragoso MD Cosigner Signature: Date CC: ~ Signed [facility] Work Phone: 1(973) 627-958704-18-2025 Consult note Author Ld Chacon [facility] Note Date/Time September 25, 2024 4:5 2pm [facility] Medical Records Department [address] [place] [address] Consultation - GI 09/25/24 1648 MR#: [id number] Acct: [id number] Name: LUCY CROWLEY V Rep #:[id number] : 2000 From: Ld Chacon DO PCP: Dr. Heather Ruby DO Status:R EG [facility] Location: [place] [address] HPI Consult Data Date of Consult: 09/25/24 HPI Narrative Reason for Consultation: Choledocholithiasis HPI Narrative: LUCY CROWLEY, is a 24 F who presents 24-year-old female who is A1 who was induced on 09/26/2024 at 38.6 weeks anddelivered via vaginal delivery who presents for right upper quadrant and epigastric pain from [facility]. She was a transfer. History taken by patient, medical record, Dr. Chacon. Patient states that she started having right upper quadrant/epigastric pain on Saturday. [facility] to [facility] on in which they induced her due to the concern of her gallbladder. She states the delivery went well without any complications for her the child. She has continued to have right upper quadrant/epigastric pain that radiates to the back. She endorses some nausea but denies vomiting. She denies any fever, chills, shortness of breath, chest pain, dysuria, diarrhea, constipation. Patient states that the ER was expecting her however none of the ER faculty knewthat the patient was arriving. She did come with paperwork. She had a right upper quadrant ultrasound performed on 09/25/2024 that showed cholelithiasis. The common bile duct is dilated at 11 mm. Intraductal calculus is not demonstrated. She had mild transaminitis with a total bilirubin of 4.1. [facility] Medical History Biliary colic Home Medications ?Medication ?Instructions ?Recorded ?Last Taken ?Type NK 09/25/24 Unknown History Allergy/AdvReac Type Severity Reaction Status Date / Time No Known Allergies Allergy Verified 09/25/24 14:07 Family History Mother No problems noted. Father No problems noted. Surgical History Hx of appendectomy Social History household members: spouse, children and other details: 2 older children at home, 1 miscarriage, 1 09/24/24. Smoking Status: Never smoker alcohol intake: never substance use type: does not use ROS Constitutional Constitutional: Denies fatigue, fever(s), poor appetite, weight gain or weight loss Gastrointestinal Gastrointestinal: Denies belching, bloating, change in bowel habits, change in stool character, chewing difficulty, coffee ground emesis, constipation, cramping, diarrhea, dyspepsia, dysphagia, early satiety, excessive flatus, fecalincontinence, heartburn, hematemesis, hematochezia, hemorrhoids, loose stools, melena, nausea, odynophagia, rectal bleeding, tenesmus, vomiting or weight changes Physical Exam Const alert, oriented x3, no apparent distress and healthy appearing General Appearance: cooperative GI normal to inspection, nondistended, normoactive bowel sounds, soft to palpation,non-tender and non-distended Percussion: normal to percussion Rectal Exam: deferred Lab / Micro Data 09/25/24 14:40 09/25/24 14:40 Labs: Laboratory Results - last 24 hr 09/25/24 14:40: WBC 10.2, RBC 3.75 L, Hgb 11.7 L, Hct 34.0 L, MCV 90.7, MCH 31.2, MCHC 34.4, RDW Std Deviation 42.6, RDW Coeff of Rebeca 13.0, Plt Count 177, MPV 10.4, Immature Gran % (Auto) 0.900, Neut % (Auto) 77.6 H, Lymph % (Auto) 15.8 L, Mathews % (Auto) 4.9, Eos % (Auto) 0.4, Baso % (Auto) 0.4, Absolute Neuts (auto) 8.0 H, Absolute Lymphs (auto) 1.62, Nucleated RBC % 0, Sodium 137, Potassium 3.6, Chloride 104, Carbon Dioxide 22.6, Anion Gap 10, BUN 4, Creatinine 0.70, Est GFR (MDRD) Non-Af 123, BUN/Creatinine Ratio 6.2 L, Glucose 108 H, Calcium 9.0, Total Bilirubin 4.12 H, Direct Bilirubin 3.02 H, AST 74 H, ALT 95 H, Alkaline Phosphatase 154 H, Total Protein 6.2, Albumin 3.4 L, Globulin 2.8, Lipase 23 09/25/24 14:45: Lactic Acid < 1.0 Assessment & Plan Assessment/Plan (1) Choledocholithiasis: (2) Vaginal delivery: PLAN: Plan 24 y/o F w/ PMHx: Biliary colic which from description has been ongoing for sometime who presents to the [facility] ED on with history of being in her third trimester of . Laboratory analysis showed increasedbilirubin to 4.8, AST 350, ALT 371, alkaline phosphatase 200. Ultrasound showedmultiple filling defects in gallbladder and common bile duct increased from 5 mmto 11 mm. She did also have some leukocytosis. I suspect obstructive jaundice secondary to choledocholithiasis and possible underlying ascending cholangitis. Patient will undergo emergent ERCP. Agree with antibiotics. Patient was explained alternatives, risk, benefits include understanding bleeding, infection, sepsis, perforation, need for urgent . She will have an ASA of 3. Charges/Coding Visit Charges Inpatient E&M: 87838 Init Hosp L3 09/25/24 1652 <Electronically signed by Ld Chacon DO> Cosigner Signature (if applicable): CC: Dr. Heather Ruby DO~ Signed [facility] Work Phone: 1(976) 717-654104-18-2025 Consult note Author Saran Fragoso [facility] Note Date/Time September 25, 2024 4:4 9pm [facility] Medical Records Department [address] [place] [address] Pre-Anesthesia Evaluation 09/25/24 1648 MR#: [id number] Acct: [id number] Name: LUCY CROWLEY V Rep #:[id number] : 2000 From: Saran Fragoso MD PCP: Dr. Heather Ruby, DO Status:R EG SDC Y Race: C Location: [place] [address] ASA Classification* ASA Classification ASA Classification: 2 and E Assessment & Plan Anesthesia* Anesthesia Assessment Anesthesia Assessment: Discussed sedation and/or anesthesia options, risks, benefits, and alternatives with patient/parents/legal guardian/POA. Questions invited. The patient/parents/legal guardian/POA seems to understand and agrees to proceedwith anesthesia plan. Reviewed the physical assessment, medical history, allergy history and patient home medications list prior to surgery/procedure/anesthetic and documented any changes. Performed airway and anesthesia risk assessments. Anesthesia Type Anesthesia Type: General (Food at 930 am. with delivery yesterday) Anesthesia Focused Assessment* Temperature: 97.9 F Pulse Rate: 88 Blood Pressure: 92/69 Respiratory Rate: 16 Pulse Ox: 95 Airway Assessment Mouth opens: >3 cm Mallampati Score: II Focused Labs Anesthesia Preop lab: CBC WBC 10.2 K/mm3 (4.4-11.0) 09/25/24 14:40 09/25/24 RBC 3.75 M/mm3 (4.2-5.4) L 09/25/24 14:40 09/25/24 Hgb 11.7 g/dL (12.0-15.0) L 09/25/24 14:40 5 Hct 34.0 % (37-47) L 09/25/24 14:40 09/25/24 Plt Count 177 K/mm3 (150-450) 09/25/24 14:40 09/25/24 CHEMISTRY Potassium 3.6 mmol/L (3.3-5.1) 09/25/24 14:40 09/25/24 Sodium 137 mmol/L (133-145) 09/25/24 14:40 09/25/24 BUN 4 mg/dL (4-19) 09/25/24 14:40 09/25/24 Creatinine 0.70 mg/dL (0.70-1.20) 09/25/24 14:40 09/25/24 Glucose 108 mg/dL (70-99) H 09/25/24 14:40 09/25/24 COAG Pre-Assessment Diagnosis/Proposed Procedure Planned Operative Procedure(s): ERCP Anesthesia History 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 When Was Last Pacemaker Check QUESTION #4 FULL TEXT: You/Your Family Experience fever (hyperthermia) with Anesthesia Last Oral Intake Last Oral intake: Last Oral Intake NPO since Meds taken in AM with sips of water? 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: PONV - ammunition and explosives handler Female HX of Motion Sickness HX of N/V After Surgery Non-Smoker Duration of Surgery greater than 60 minutes Number of Risk Factors PONV Score Height & Weight Height & Weight: Anesthesia: Height & Weight Height 5 ft 4 in 09/25/24 13:44 Respiratory Assessment Respiratory Assessment - ammunition and explosives handler: Respiratory Tract Infection Hx - ammunition and explosives handler Hx Respiratory Tract Infection STOP Sleep Apnea STOP Sleep Apnea - ammunition and explosives handler: STOP Sleep Apnea - ammunition and explosives handler Hx Hypertension Hx Sleep Apnea CPAP BIPAP Do you snore loudly (louder than talking or can be heard Do you often feel tired/ fatigued/ sleepy during daytime? Has anyone observed you stop breathing during sleep? STOP Results QUESTION #5 FULL TEXT : Do you snore loudly (louder than talking or can be heard through closed doors)? 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: Tobacco Use History - ammunition and explosives handler Tobacco Use Smoking Status Never smoker 09/25/24 16:29 Hx Tobacco Use Years Smoking Packs Smoked per Day Smoking Cessation Date was within the last 15 years Hx Smoking Cessation Date Hx Smoking Cessation Counseling Hematologic Medial History Hematologic Hx - ammunition and explosives handler: Hematologic Medical Hx - customer supply coordinator Hx of Blood Transfusion Hx of Transfusion in last 3 Months Date of Last Transfusion (if within last 3 months) Ever experience any problems with transfusion(s)? Specify any problems Hx of Preganancy in last 3 Months Nurse Filling Out Transfusion & Questions: Date: Time: Patient unable to answer at this time (ie. confused, unrespo /Reproduction History /Reproductive History - ammunition and explosives handler: /Reproductive Hx- ammunition and explosives handler Hx Now Gestational Age (in weeks): EDC: Hx Hx Para Hx Section SAB No 09/25/24 13:44 PFSH Medical History Biliary colic Home Medications ?Medication ?Instructions ?Recorded ?Last Taken ?Type NK 09/25/24 Unknown History Allergy/AdvReac Type Severity Reaction Status Date / Time No Known Allergies Allergy Verified 09/25/24 14:07 Family History Mother No problems noted. Father No problems noted. Surgical History Hx of appendectomy Social History household members: spouse, children and other details: 2 older children at home, 1 miscarriage, 1 09/24/24. Smoking Status: Never smoker alcohol intake: never substance use type: does not use Review of Systems (Anesthesia) ROS Narrative System reviewed and no additional complaints, except as documented. 09/25/24 0016 <Electronically signed by Saran Fragoso MD > Date _ Saran Fragoso MD Cosigner Signature: Date CC: ~ Signed [facility] Work Phone: 1(231) 333-932504-18-2025 History and physical note Author Radha Romano [facility] Note Date/Time September 25, 2024 4:4 0pm [facility] Medical Records Department [address] [address] H&P Exam - Hospitalist 09/25/24 1614 MR#: [id number] Acct: [id number] Name: LUCY CROWLEY V Rep #:[id number] : 2000 24 From: Radha Romano MD PCP: Dr. Heather Ruby, DO Status:R EG [facility] Location: [facility] A- HPI - General General Date of Admission: 09/25/24 Date of Service: 09/25/24 Chief Complaint: Epigastric pain. HPI Narrative The patient is a 24 y/o Worship F w/ PMHx: Biliary colic which from description has been ongoing for some time who presents to the [facility] ED with history of being in her third trimester of with due datetechnically on 03 October however on Saturday she started having epigastric and right upper quadrant pain approximately 30 minutes following her meals with painnoted to be sharp stabbing and dull aching with associated nausea, emesis and diaphoresis however it seemed to subside but tended to also wax and wane with a reoccurrence event on at 3 AM in the morning with also at that time potential uterine cramps prompting outside facility ED evaluation at [facility]. Patient was admitted and delivered a healthy with no concerns per discussion with patient and spouse as well as review of facility records. The facility did speak with keg varnisher Dr. Chacon who recommended ERCP and was under the impression patient was being transferred to [facility] for treatment but secondary to cost and patient/spouse preference they ended up coming by private drive and presented tot ED. Patient notes that when her pain was at its worst was 9-10 out of 10 inseverity. Currently she notes pain is improved and reporting 0 out of 10. Records from outside facility included most recently CMP with total bilirubin 4.2, AST/ALT 82/156, CBC with WBC 10.0, hemoglobin 11.4, platelet 184 with left shift, gallbladder ultrasound with evidence of cholelithiasis with numerous small stones layering in the gallbladder with mild intrahepatic ductal dilatation obtained on 09/24/2024 with follow-up repeat ultrasound with cholelithiasis with then common bile duct dilatation to 11 mm with intraductal calculus not demonstrated at that time but increasing concern. She denies any recent fevers or chills. Workup in the ED included T96.8 Temporal, heart rate 86, BP 108/78, respiratory rate 15, under percent on room air with most recent repeat vitals T97.9, heart rate 88, BP 92/69, respiratory rate 16, 95% on room air, CBC with WC 10.2, hemoglobin 0.7, platelets 177 with left shift, CMP with glucose 108, lactic acid less than 1, T. bili 4.12, D bili 3.02, AST/LT 74/25, alk phos 154, lipase 23. ED did discuss case with Dr. Chacon gastroenterology with plan for ERCP and also with Dr. Mayo general surgeon who requested medical admission with expected consult following ERCP per discussion with ED physician. [facility] Medical History (Updated 09/25/24 @ 16:[address] Radha Romano MD) Biliary colic Home Medications ?Medication ?Instructions ?Recorded ?Last Taken ?Type NK 09/25/24 Unknown History Allergy/AdvReac Type Severity Reaction Status Date / Time No Known Allergies Allergy Verified 09/25/24 14:07 Family History (Updated 09/25/24 @ 16:[address] Radha Romano MD) Mother No problems noted. Father No problems noted. Surgical History (Updated 09/25/24 @ 14:03 by Fiona Bustos) Hx of appendectomy Social History (Updated 09/25/24 @ 16:[address] Radha Romano MD) household members: spouse, children and other details: 2 older children at home, 1 miscarriage, 1 09/24/24. Smoking Status: Never smoker alcohol intake: never substance use type: does not use ROS ROS Narrative Admission Review of Systems: CONSTITUTIONAL: No weight loss, fever, chills, + weakness or fatigue. HEENT: + Mild jaundice/mild scleral icterus Eyes: No visual loss, blurred vision, double vision or yellow sclerae. Ears, Nose, Throat: No hearing loss, sneezing, congestion, runny nose or sore throat. SKIN: No rash or itching, lesions, wounds, + mild scleral icterus/jaundice evidence, occasional stage ecchymoses likely from recent lab draws. CARDIOVASCULAR: No chest pain, chest pressure or chest discomfort, palpitations,edema, orthopnea, syncopal events. RESPIRATORY: No shortness of breath, cough or sputum, wheezing, hemoptysis. GASTROINTESTINAL: + Decreased appetite, episode of nausea and emesis, abdominal pain. No diarrhea, abdominal pain, melena, BRBPR. GENITOURINARY: No dysuria, frequency, urgency or retention. NEUROLOGICAL: No headache, dizziness, syncope, paralysis, ataxia, numbness or tingling in the extremities, focal weakness, change in bowel or bladder control,seizure. MUSCULOSKELETAL: + muscle, back pain, joint pain or stiffness. HEMATOLOGIC: + Anemia likely associate with , recent spontaneous vaginal delivery with expected postdelivery vaginal bleeding. LYMPHATICS: No enlarged nodes. No history of splenectomy. PSYCHIATRIC: No history of depression or anxiety. ENDOCRINOLOGIC: No reports of sweating, cold or heat intolerance. No polyuria orpolydipsia. ALLERGIES: No history of asthma, hives, eczema or rhinitis. Vital Signs Vital Signs Vital Signs: 09/25/24 13:44 09/25/24 14:43 09/25/24 14:45 Temperature 96.8 F L 97.7 F L Temperature Source Temporal Oral Pulse Rate 86 94 94 Respiratory Rate 15 15 Blood Pressure 108/78 105/77 106/63 Blood Pressure Mean 88 86 77 Pulse Ox 100 96 97 Oxygen Delivery Method Room Air Room Air Room Air 09/25/24 15:00 Temperature 97.8 F Temperature Source Oral Pulse Rate 86 Respiratory Rate 15 Blood Pressure 94/61 Blood Pressure Mean 72 Pulse Ox 96 Oxygen Delivery Method Room Air Physical Exam Narrative Physical Examination: General: Awake, alert, oriented x 3 and cooperative, seated upright in the ED bed in no apparent distress, fatigued, notes pain is absent at this time. Skin: Mildly jaundiced color, normal turgor, no icterus, no cyanosis except occasional stage ecchymoses suspected likely from recent lab draws at alternate facility HEENT: AT/NC, EOMI, PERRLA, mild scleral icterus evident, mildly dry MM, no carotid bruits or JVD noted. Lungs: CTA bilaterally, moderate effort, mild decrease BL bases, no rales, ronchi or wheezing. Heart: Regular rate and rhythm; no gallop, rub audible. Abdomen: Soft, no significant tenderness to palpation of the epigastric or rightupper quadrant despite recent pain reported prior, she notes it currently is better, some discomfort with palpation of the uterine fundus as to be expected, no marked distention evident, distant BS, no obvious HSM. Extremities: No cyanosis, clubbing, or edema. Neurological: Patient awake, alert, oriented as noted, cognitive function intact; pupils equally reactive to light and accommodation, cranial nerves grossly normal, moving all 4 extremities, no focal deficits, strength mildly globally decreased. Psychiatric: Affect appears fatigued, no acute evidence of depressive or anxietyfeelings. Results Lab / Micro Data 09/25/24 14:40 09/25/24 14:40 Labs: Laboratory Results - last 24 hr 09/25/24 14:40: WBC 10.2, RBC 3.75 L, Hgb 11.7 L, Hct 34.0 L, MCV 90.7, MCH 31.2, MCHC 34.4, RDW Std Deviation 42.6, RDW Coeff of Rebeca 13.0, Plt Count 177, MPV 10.4, Immature Gran % (Auto) 0.900, Neut % (Auto) 77.6 H, Lymph % (Auto) 15.8 L, Mathews % (Auto) 4.9, Eos % (Auto) 0.4, Baso % (Auto) 0.4, Absolute Neuts (auto) 8.0 H, Absolute Lymphs (auto) 1.62, Nucleated RBC % 0, Sodium 137, Potassium 3.6, Chloride 104, Carbon Dioxide 22.6, Anion Gap 10, BUN 4, Creatinine 0.70, Est GFR (MDRD) Non-Af 123, BUN/Creatinine Ratio 6.2 L, Glucose 108 H, Calcium 9.0, Total Bilirubin 4.12 H, Direct Bilirubin 3.02 H, AST 74 H, ALT 95 H, Alkaline Phosphatase 154 H, Total Protein 6.2, Albumin 3.4 L, Globulin 2.8, Lipase 23 09/25/24 14:45: Lactic Acid < 1.0 Assessment & Plan Assessment/Plan (1) Choledocholithiasis: (2) Vaginal delivery: PLAN: Plan The patient is a 24 y/o Worship F w/ PMHx: Biliary colic which from description has been ongoing for some time who presents to the [facility] with history of being in her third trimester of with due datetechnically on 03 October however on Saturday she started having epigastric and right upper quadrant pain approximately 30 minutes following her meals with painnoted to be sharp stabbing and dull aching with associated nausea, emesis and diaphoresis however it seemed to subside but tended to also wax and wane with a reoccurrence event at 3 AM in the morning with also at that time potential uterine cramps prompting outside facility ED evaluation at [facility]. #1. Acute choledocholithiasis with significant hyperbilirubinemia, transaminitis, mild leukocytosis with shift complicated by #2: Will admit to medical surgical floor, plan for transition potentially from ED to ERCP lab per discussion with gastroenterology, will continue n.p.o. status, IV PPI, IV fluids, IV Zosyn, continued CBC, BMP/Paddock profile trending as well as lipase trending, General Surgery also consulted for planned upcoming cholecystectomy given history. #2. Recent spontaneous vaginal delivery with breast-feeding status: Will maintain on vitamin and have requested breast pump be made available for patient and that breastmilk be stored in the normal section that OB utilizes. Pharmacy consulted to review medications given breast-feeding status. #3. Normocytic anemia, suspect related with : Admission hemoglobin 11.7, MCV 90.7, similar to outside facility, will continue to trend CBC. Continue on complete prenatals as noted above. #4. DVT prophylaxis: SCDs. Charges/Coding Visit Charges Inpatient E&M: 40451 Init Hosp L2 09/25/24 1640 <Electronically signed by Radha Romano MD> Cosigner Signature (if applicable): CC: Dr. Radha Romano MD; Dr. Heather Ruby, DO~ Signed [facility] Work Phone: 1([phone]) 516-700604-18-2025 Evaluation note* Diagnosis Onset Date Resolution Status Admit Date Choledocholithiasis acute September 25, 2024 4:14pm Vaginal delivery acute September 252024 4:14pm [facility] Work Phone: 1(943) 475-323004-18-2025 Evaluation note* Diagnosis Onset Date Resolution Status Admit Date Choledocholithiasis resolved September 25, 2024 4:14pm Vaginal delivery resolved September 252024 4:14pm History of biliary stent insertion a cute October 09, 2024 8:34am Abdominal pain acute October 20, 2024 8:46pm Acute cholecystitis acute October 082024 8:46pm Fever acute October 20, 2024 8:46pm Gallstone acute October 20, 2024 8:46pm [facility] Work Phone: 1([phone] 260-883304-18-2025 Evaluation note* Diagnosis Onset Date Resolution Status Admit Date Choledocholithiasis resolved September 25, 2024 4:14pm Vaginal delivery resolved September 252024 4:14pm History of biliary stent insertion a cute October 09, 2024 8:34am Abdominal pain acute October 20, 2024 8:46pm Acute cholecystitis acute October 082024 8:46pm Fever acute October 20, 2024 8:46pm Gallstone acute October 20, 2024 8:46pm History of biliary stent insertion a cute October 20, 2024 8:46pm [facility] Work Phone: 1([phone]) 729-932104-18-2025 Evaluation note* Diagnosis Onset Date Resolution Status Admit Date Choledocholithiasis resolved September 25, 2024 4:14pm Vaginal delivery resolved September 252024 4:14pm History of biliary stent insertion a cute October 09, 2024 8:34am History of biliary stent insertion a cute October 20, 2024 8:46pm Abdominal pain resolved October 20, 2024 8:46pm Acute cholecystitis resolved October 082024 8:46pm Fever resolved October 20, 2024 8:46pm Gallstone resolved October 20, 2024 8:46pm Bile leak acute October 28, 2024 1:07pm [facility] Work Phone: [phone]) 110-969504-18-2025 Consult note [facility] Medical Records Department [address] [place] [address] Anesthesia Postop Eval II 09/25/24 1805 MR#: [id number] Acct: [id number] Name: LUCY CROWLEY V Rep #:[id number] : 2000 From: Saran Fragoso MD PCP: Dr. Heather Ruby, DO Status:A DM IN Y Race: C Location: MS3 MS304 -1 Anesthesia Postop Eval I Sum Postop Eval Completion status Anesthesia document: Postop Eval 1 completed: Yes Anesthesia Postop Eval I Summary Anesthesia Postop Eval I Summary: Anesthesia Postop Eval I: Assessment Summary Airway patent Yes 09/25/24 18:04 Spontaneous unlabored Yes 09/25/24 18:04 respirations Mental status Awake 09/25/24 18:04 nausea No 09/25/24 18:04 Vomiting No 09/25/24 18:04 Anesthesia Postop Eval I: Fluid Summary Crystalloid volume administer 400 09/25/24 18:04 (ml) Colloids volume administered ( ml) Blood Product volume administered (ml) Total IV fluid infused 400 09/25/24 18:04 Anesthesia Postop Eval I: Summary Notes Anesthesia Complication No 09/25/24 18:04 Anesthesia Complication Comment: Post-operative progress note Anesthesia: Postop Eval II Evaluation Mental status: Awake Pain Level: 0 nausea: No Vomiting: No 09/25/24 180 > Date _ Saran Fragoso MD Cosign Signature: Date CC: ~ Signed [facility]04-18-2025 Consult note [facility] Medical Records Department [address] [place] [id number] Anesthesia Postop Eval I 09/25/24 180 MR#: [id number] Acct: [id number] Name: LUCY CROWLEY V Rep #:[id number] : 2000 From: Saran Fragoso MD PCP: Dr. Heather Ruby, DO Status:A DM IN Y Race: C Location: [facility] MS304 -1 Anesthesia: Postop Eval I Current Vital Signs Temperature: 97.6 F Pulse Rate: 96 Blood Pressure: 112/78 Respiratory Rate: 16 Pulse Ox: 94 Oxygen Delivery Method: Room Air Assessment Airway patent: Yes Spontaneous unlabored respirations: Yes Mental status: Awake nausea: No Vomiting: No Anesthesia Complication: No Fluid Hydration Crystalloid volume administer (ml): 400 Total IV fluid infused: 400 Progress Note Anesthesia document: Postop Eval 1 completed: Yes 09/25/24 1804 > Date _ Saran Dean Signature: Date CC: ~ Signed [facility]04-18-2025 Discharge summary Author Florentin Zamudio [facility] Note Date/Time September 25, 2024 4:0 2pm [facility] Medical Records Department [address] [place] [address] Emergency Department Summary 09/25/24 MR#: [id number] Acct: [id number] Name: CARLINELUCY Jamar Rep #:[id number] : 2000 24 From: Florentin vega DO PCP: Dr. Heather Ruby DO Status:R EG ER Location: ED HPI History of Present Illness Chief Complaint: Abd Pain Narrative Narrative: Chief complaint and HPI: Right upper quadrant with epigastric abdominal pain. 24-year-old female who is A1 who was induced on 09/26/2024 at 38.6 weeks anddelivered via vaginal delivery who presents for right upper quadrant and epigastric pain from [facility]. She was a transfer. History taken by patient, medical record, Dr. Chacon. Patient states that she started having right upper quadrant/epigastric pain on Saturday. She went to [facility] on in which they induced her due to the concern of her gallbladder. She states the delivery went well without any complications for her the child. She has continued to have right upper quadrant/epigastric pain that radiates to the back. She endorses some nausea but denies vomiting. She denies any fever, chills, shortness of breath, chest pain, dysuria, diarrhea, constipation. Patient states that the ER was expecting her however none of the ER faculty knewthat the patient was arriving. She did come with paperwork. She had a right upper quadrant ultrasound performed on 09/25/2024 that showed cholelithiasis. The common bile duct is dilated at 11 mm. Intraductal calculus is not demonstrated. She had mild transaminitis with a total bilirubin of 4.1. The faculty over there spoke with Dr. Chacon. Her lipase was 23. She had no leukocytosis. I spoke with Dr. Chacon personally on the phone, he states that the plan is medical admission with ERCP. Review of systems: See HPI Medications: As listed on the chart Allergies: As listed on the chart PFSH: Per chart Vital signs: As listed on the chart. Reviewed. Physical exam: Gen: A&O x3, NAD Head: Normocephalic, atraumatic Eyes: Sclera icterus, PERRL, EOMI ENT: Moist mucous membranes Neck: Trachea midline, No JVD CV: RRR, no murmurs, no peripheral edema Resp: Lungs CTA BL, no w/r/c GI: Abd soft, non-distended, mildly tender to palpation diffusely, no rebound orrigidity : No CVA tenderness Musc: Full ROM, no deformity Skin: Warm, jaundice Neuro: Alert, oriented, grossly intact, sensation intact Psych: Cooperative, appropriate mood and affect PFS PFS Home Medications ?Medication ?Instructions ?Recorded ?Last Taken ?Type NK 09/25/24 Unknown History Allergy/AdvReac Type Severity Reaction Status Date / Time No Known Allergies Allergy Verified 09/25/24 14:07 Surgical History (Updated 09/25/24 @ 14:03 by Fiona Bustos) Hx of appendectomy Social History Smoking Status: Never smoker EXAM Physical Exam Const Vital Signs: 09/25/24 13:44 09/25/24 14:43 09/25/24 14:45 Temperature 96.8 F L 97.7 F L Temperature Source Temporal Oral Pulse Rate 86 94 94 Respiratory Rate 15 15 Blood Pressure 108/78 105/77 106/63 Blood Pressure Mean 88 86 77 Pulse Ox 100 96 97 Oxygen Delivery Method Room Air Room Air Room Air 09/25/24 15:00 Temperature 97.8 F Temperature Source Oral Pulse Rate 86 Respiratory Rate 15 Blood Pressure 94/61 Blood Pressure Mean 72 Pulse Ox 96 Oxygen Delivery Method Room Air MDM MDM MDM Narrative Medical decision making narrative: 24-year-old female who is A1 who was induced on 09/26/2024 at 38.6 weeks and delivered via vaginal delivery who presents for right upper quadrant and epigastric pain from [facility]. See HPI. Patient was induced secondaryto her pain. She was found to have transaminitis with concern of choledocholithiasis, they spoke with Dr. Chacon with GI and patient was transferred to our hospital. The only issue was nobody in the emergency department was expecting her. I did speak to Dr. Chacon personally as well as reviewed her outlying facility labs and ultrasound. Plan is for admission with ERCP. NS bolus, morphine, Zofran ordered for pain. Will repeat labs before admission. Differential diagnosis includes but is not limited to choledocholithiasis, cholecystitis, cholangitis, pancreatitis, electrolyte abnormality. CBC without leukocytosis. Patient has anemia with hemoglobin of 11.7. She did just have a vaginal delivery. CMP without TIGIST but positive for transaminitis and hyperbilirubinemia. Total bilirubin is 4.12. Direct is 3.02. AST is 74. ALT is 95. Alk phosphatase is 154. Lipase unremarkable. Lactic acid unremarkable. Patient's pain is concerning for choledocholithiasis. Patient has no signs of cholangitis at this time however will cover prophylactically with Zosyn. Patient will warrant admission for ERCP and further workup. Patient was discussed with hospitalist service who accepted admission. Impression: 1. Right upper quadrant send epigastric pain with dilated common bile duct, concern for choledocholithiasis 2. Hyperbilirubinemia 3. Transaminitis 4. Recent vaginal delivery after induction Lab Data Labs: Laboratory Results - last 24 hr 09/25/24 09/25/24 14:40 14:45 WBC 10.2 RBC 3.75 L Hgb 11.7 L Hct 34.0 L MCV 90.7 MCH 31.2 MCHC 34.4 RDW Std Deviation 42.6 RDW Coeff of Rebeca 13.0 Plt Count 177 MPV 10.4 Immature Gran % (Auto) 0.900 Neut % (Auto) 77.6 H Lymph % (Auto) 15.8 L Mathews % (Auto) 4.9 Eos % (Auto) 0.4 Baso % (Auto) 0.4 Absolute Neuts (auto) 8.0 H Absolute Lymphs (auto) 1.62 Nucleated RBC % 0 Sodium 137 Potassium 3.6 Chloride 104 Carbon Dioxide 22.6 Anion Gap 10 BUN 4 Creatinine 0.70 Est GFR (MDRD) Non-Af 123 BUN/Creatinine Ratio 6.2 L Glucose 108 H Lactic Acid < 1.0 Calcium 9.0 Total Bilirubin 4.12 H Direct Bilirubin 3.02 H AST 74 H ALT 95 H Alkaline Phosphatase 154 H Total Protein 6.2 Albumin 3.4 L Globulin 2.8 Lipase 23 Discharge Plan Triage Chief Complaint: Abd Pain ED Provider: Florentin Zamudio Dx/Rx/DC Orders Prescriptions: No Action NK Primary Care Provider: Heather Ruby Referrals: Heather Ruby DO [Primary Care Provider] - Print Language: Romanian What to do if you have Problems For any increased pain, shortness of breath, bleeding, nausea or vomiting, chestpain, or any unexpected problems, contact your Primary Care Provider. Call [facility] ([phone]) or report to the closest Emergency Room. Call 911 if necessary. 09/25/24 1602 <Electronically signed by Florentin Zamudio DO> Cosigner Signature (if applicable): CC: Dr. Heather Ruby DO ~ Signed [facility] Work Phone: [phone] 143-216104-18-2025 Procedure note [facility] Medical Records Department [address] [place] [id number] ERCP Report MR#: [id number] Acct: [id number] Name: LUCY CROWLEY V Rep #:[id number] : 2000 24 From: Ld Chacon DO PCP: Dr. Heather Ruby DO Status:A DM IN Patient Name: Lucy Crowley Procedure Date: 09/25/2024 5:02 PM Date of : 2000 Age: 24 Procedure: ERCP Indications: Common bile duct stone(s), Jaundice, Elevated liver enzymes Providers: Ld Chacon DO Medicines: General Anesthesia Patient Profile: This is a 24 year old female. Refer to note in patient chart for documentation of history and physical. Patient has symptoms of acute right upper quadrant abdominal pain and acute jaundice. This patient has no history of previous ERCP. This patient has no history of surgical alteration of the upper digestive tract anatomy. Complications: No immediate complications. Procedure: Pre-Anesthesia Assessment: - Prior to the procedure, a History and Physical was performed, and patient medications and allergies were reviewed. The patient is competent. The risks and benefits of the procedure and the sedation options and risks were discussed with the patient. All questions were answered and informed consent was obtained. Patient identification and proposed procedure were verified by the physician in the pre-procedure area. Mental Status Examination: alert and oriented. Airway Examination: normal oropharyngeal airway and neck mobility. Respiratory Examination: clear to auscultation. CV Examination: normal. Prophylactic Antibiotics: The patient does not require prophylactic antibiotics. Prior Anticoagulants: The patient has taken no anticoagulant or antiplatelet agents except for NSAID medication. ASA Grade Assessment: II - A patient with mild systemic disease. After reviewing the risks and benefits, the patient was deemed in satisfactory condition to undergo the procedure. The anesthesia plan was to use monitored anesthesia care (MAC). Immediately prior to administration of medications, the patient was re-assessed for adequacy to receive sedatives. The heart rate, respiratory rate, oxygen saturations, blood pressure, adequacy of pulmonary ventilation, and response to care were monitored throughout the procedure. The physical status of the patient was re-assessed after the procedure. After obtaining informed consent, the scope was passed under direct vision. Throughout the procedure, the patient's blood pressure, pulse, and oxygen saturations were monitored continuously. The Duodenoscope was introduced through the mouth, and advanced to the duodenum and used to inject contrast into the bile duct and ventral pancreatic duct. The ERCP was accomplished without difficulty. The patient tolerated the procedure well. Scope In: 5:18:14 PM Scope Out: 5:40:19 PM Total Procedure Duration Time 0 hours 22 minutes 5 seconds Findings: The cloth worker film was normal. The esophagus was successfully intubated under direct vision. The scope was advanced to a normal major papilla in the descending duodenum without detailed examination of the pharynx, larynx and associated structures, and upper GI tract. The upper GI tract was grossly normal. The ventral pancreatic duct was deeply cannulated with the short-nosed traction sphincterotome. Contrast was injected. I personally interpreted the bile duct and pancreatic duct images. There was brisk flow of contrast through the ducts. Image quality was excellent. Contrast extended to the entire biliary tree. The entire opacified area was normal. A long 0.025 inch Jagwire was passed into the ventral pancreatic duct. A 5 mm ventral pancreatic sphincterotomy was made with a traction (standard) sphincterotome using ERBE electrocautery. There was no post-sphincterotomy bleeding. To find object(s) the ventral pancreatic duct was swept with a 6 mm balloon starting at the pancreatic duct in the body of the pancreas. Nothing was found. One 5 Fr by 7 cm temporary stent was placed 5 cm into the ventral pancreatic duct. Bile flowed through the stent. The stent was in good position. A long 0.025 inch Jagwire was passed into the biliary tree. The short-nosed traction sphincterotome was passed over the guidewire and the bile duct was then deeply cannulated. Contrast was injected. Opacification of the entire opacified area and entire biliary tree was successful. The maximum diameter of the ducts was 10 mm. The lower third of the main bile duct contained three stones, the largest of which was 6 mm in diameter. The entire biliary tree was diffusely dilated, with a stone causing an obstruction. The largest diameter was 12 mm. A 5 mm biliary sphincterotomy was made with a traction (standard) sphincterotome using ERBE electrocautery. There was no post-sphincterotomy bleeding. The biliary tree was swept with a 10 mm balloon starting at the upper third of the main bile duct, middle third of the main bile duct, lower third of the main duct, bifurcation, left intrahepatic duct(s) and right intrahepatic duct(s). Sludge was swept from the duct. All stones were removed. One 10 Fr by 5 cm temporary stent was placed 5 cm into the common bile duct. Bile flowed through the stent. The stent was in good position. Impression: - The entire biliary tree was dilated, with a stone causing an obstruction. - Choledocholithiasis was found. Complete removal was accomplished by biliary sphincterotomy and balloon extraction. - A pancreatic sphincterotomy was performed. - The ventral pancreatic duct was swept and nothing was found. - One temporary stent was placed into the ventral pancreatic duct. - A biliary sphincterotomy was performed. - The biliary tree was swept. - One temporary stent was placed into the common bile duct. Procedure Code(s): --- Professional --- 96831, Endoscopic retrograde cholangiopancreatography (ERCP); with placement of endoscopic stent into biliary or pancreatic duct, including pre- and post-dilation and guide wire passage, when performed, including sphincterotomy, when performed, each stent 75674, 59, Endoscopic retrograde cholangiopancreatography (ERCP); with placement of endoscopic stent into biliary or pancreatic duct, including pre- and post-dilation and guide wire passage, when performed, including sphincterotomy, when performed, each stent 73912, Endoscopic retrograde cholangiopancreatography (ERCP); with removal of calculi/debris from biliary/pancreatic duct(s) 87546, 26, Combined endoscopic catheterization of the biliary and pancreatic ductal systems, radiological supervision and interpretation CPT copyright 2021 [employer]. All rights reserved. The codes documented in this report are preliminary and upon information technology instructor review may be revised to meet current compliance requirements. Ld Chacon DO 09/25/2024 5:55:43 PM This report has been signed electronically. Number of Addenda: 0 Note Initiated On: 09/25/2024 5:02 PM 09/25/24 1756 Date _ Ld Chacon DO Cosigner Signature: Date (if indicated) CC: Dr. Heather Ruby DO; Ld Chacon DO ~ Date Dictated: 09/25/24 1702 Date Transcribed: Lens Finisher: RF Signed [facility]04-18-2025 Consult note [facility] Medical Records Department [address] [place] [address] Consultation - GI 09/25/24 1648 MR#: [id number] Acct: [id number] Name: LUCY CROWLEY V Rep #:[id number] : 2000 From: Ld Chacon DO PCP: Dr. Heather Ruby DO Status:[facility] Location: [facility] A-1 HPI Consult Data Date of Consult: 09/25/24 HPI Narrative Reason for Consultation: Choledocholithiasis HPI Narrative: LUCY CROWLEY, is a 24 F who presents 24-year-old female who is A1 who was induced on 09/26/2024 at 38.6 weeks anddelivered via vaginal delivery who presents for right upper quadrant and epigastric pain from [facility]. She was a transfer. History taken by patient, medical record, Dr. Chacon. Patient states that she started having right upper quadrant/epigastric pain on Saturday. [facility] they induced her due to the concern of her gallbladder. She states the delivery went well without any complications for her the child. She has continued tohave right upper quadrant/epigastric pain that radiates to the back. She endorses some nausea but denies vomiting. She denies any fever, chills, shortness of breath, chest pain, dysuria, diarrhea, constipation. Patient states that the ER was expecting her however none of the ER faculty knewthat the patient was arriving. She did come with paperwork. She had a right upper quadrant ultrasound performed on 09/25/2024 that showed cholelithiasis. The common bile duct is dilated at 11 mm. Intraductal calculus is not demonstrated. She had mild transaminitis with a total bilirubin of 4.1. [facility] Medical History Biliary colic Home Medications ?Medication ?Instructions ?Recorded ?Last Taken ?Type NK 09/25/24 Unknown History Allergy/AdvReac Type Severity Reaction Status Date / Time No Known Allergies Allergy Verified 09/25/24 14:07 Family History Mother No problems noted. Father No problems noted. Surgical History Hx of appendectomy Social History household members: spouse, children and other details: 2 older children at home, 1 miscarriage, 1 09/24/24. Smoking Status: Never smoker alcohol intake: never substance use type: does not use ROS Constitutional Constitutional: Denies fatigue, fever(s), poor appetite, weight gain or weight loss Gastrointestinal Gastrointestinal: Denies belching, bloating, change in bowel habits, change in stool character, chewing difficulty, coffee ground emesis, constipation, cramping, diarrhea, dyspepsia, dysphagia, earlysatiety, excessive flatus, fecalincontinence, heartburn, hematemesis, hematochezia, hemorrhoids, loose stools, melena, nausea, odynophagia, rectal bleeding, tenesmus, vomiting or weight changes Physical Exam Const alert, oriented x3, no apparent distress and healthy appearing General Appearance: cooperative GI normal to inspection, nondistended, normoactive bowel sounds, soft to palpation,non-tender and non-distended Percussion: normal to percussion Rectal Exam: deferred Lab / Micro Data 09/25/24 14:40 09/25/24 14:40 Labs: Laboratory Results - last 24 hr 09/25/24 14:40: WBC 10.2, RBC 3.75 L, Hgb 11.7 L, Hct 34.0 L, MCV 90.7, MCH 31.2, MCHC 34.4, RDW Std Deviation 42.6, RDW Coeff of Rebeca 13.0, Plt Count 177, MPV 10.4, Immature Gran % (Auto) 0.900, Neut% (Auto) 77.6 H, Lymph % (Auto) 15.8 L, Mathews % (Auto) 4.9, Eos % (Auto) 0.4, Baso % (Auto) 0.4, Absolute Neuts (auto) 8.0 H, Absolute Lymphs (auto) 1.62, Nucleated RBC % 0, Sodium 137, Potassium 3.6,Chloride 104, Carbon Dioxide 22.6, Anion Gap 10, BUN 4, Creatinine 0.70, Est GFR (MDRD) Non-Af 123,BUN/Creatinine Ratio 6.2 L, Glucose 108 H, Calcium 9.0, Total Bilirubin 4.12 H, Direct Bilirubin 3.02 H, AST 74 H, ALT 95 H, Alkaline Phosphatase 154 H, Total Protein 6.2, Albumin 3.4 L, Globulin 2.8, Lipase 23 09/25/24 14:45: Lactic Acid < 1.0 Assessment & Plan Assessment/Plan (1) Choledocholithiasis: (2) Vaginal delivery: PLAN: Plan 24 y/o F w/ PMHx: Biliary colic which from description has been ongoing for sometime who presents to the [facility] ED with history of being in her third trimester of . Laboratory analysis showed increasedbilirubin to 4.8, AST 350, ALT 371, alkaline phosphatase 200. Ultrasound showedmultiple filling defects in gallbladder and common bile duct increased from 5 mmto 11 mm. She did also have some leukocytosis. I suspect obstructive jaundice secondary to choledocholithiasis and possible underlying ascending cholangitis. Patient will undergo emergent ERCP. Agree with antibiotics. Patient was explained alternatives, risk, benefits include understanding bleeding, infection, sepsis, perforation, need for urgent . She will have an ASA of 3. Charges/Coding Visit Charges Inpatient E&M: 02890 Init Hosp L3 09/25/24 1652 Cosigner Signature (if applicable): CC: Dr. Heather Ruby DO~ Signed [facility]04-18-2025 Consult note [facility] Medical Records Department [address] [place] [address] Pre-Anesthesia Evaluation 09/25/24 1648 MR#: [id number] Acct: [id number] Name: LUCY CROWLEY V Rep #:[id number] : 2000 From: Saran Fragoso MD PCP: Dr. Heather Ruby DO Status:R EG SDC Y Race: C Location: [place] [address] ASA Classification* ASA Classification ASA Classification: 2 and E Assessment & Plan Anesthesia* Anesthesia Assessment Anesthesia Assessment: Discussed sedation and/or anesthesia options, risks, benefits, and alternatives with patient/parents/legal guardian/POA. Questions invited. The patient/parents/legal guardian/POA seems to understand and agrees to proceedwith anesthesia plan. Reviewed the physical assessment, medical history, allergy history and patient home medications list prior to surgery/procedure/anesthetic and documented any changes. Performed airway and anesthesia risk assessments. Anesthesia Type Anesthesia Type: General (Food at 930 am. with delivery yesterday) Anesthesia Focused Assessment* Temperature: 97.9 F Pulse Rate: 88 Blood Pressure: 92/69 Respiratory Rate: 16 Pulse Ox: 95 Airway Assessment Mouth opens: >3 cm Mallampati Score: II Focused Labs Anesthesia Preop lab: CBC WBC 10.2 K/mm3 (4.4-11.0) 09/25/24 14:40 09/25/24 RBC 3.75 M/mm3 (4.2-5.4) L 09/25/24 14:40 09/25/24 Hgb 11.7 g/dL (12.0-15.0) L 09/25/24 14:40 5 Hct 34.0 % (37-47) L 09/25/24 14:40 09/25/24 Plt Count 177 K/mm3 (150-450) 09/25/24 14:40 09/25/24 CHEMISTRY Potassium 3.6 mmol/L (3.3-5.1) 09/25/24 14:40 09/25/24 Sodium 137 mmol/L (133-145) 09/25/24 14:40 09/25/24 BUN 4 mg/dL (4-19) 09/25/24 14:40 09/25/24 Creatinine 0.70 mg/dL (0.70-1.20) 09/25/24 14:40 09/25/24 Glucose 108 mg/dL (70-99) H 09/25/24 14:40 09/25/24 COAG Pre-Assessment Diagnosis/Proposed Procedure Planned Operative Procedure(s): ERCP Anesthesia History 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 When Was Last Pacemaker Check QUESTION #4 FULL TEXT: You/Your Family Experience fever (hyperthermia) with Anesthesia Last Oral Intake Last Oral intake: Last Oral Intake NPO since Meds taken in AM with sips of water? 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: PONV - ammunition and explosives handler Female HX of Motion Sickness HX of N/V After Surgery Non-Smoker Duration of Surgery greater than 60 minutes Number of Risk Factors PONV Score Height & Weight Height & Weight: Anesthesia: Height & Weight Height 5 ft 4 in 09/25/24 13:44 Respiratory Assessment Respiratory Assessment - ammunition and explosives handler: Respiratory Tract Infection Hx - ammunition and explosives handler Hx Respiratory Tract Infection STOP Sleep Apnea STOP Sleep Apnea - ammunition and explosives handler: STOP Sleep Apnea - ammunition and explosives handler Hx Hypertension Hx Sleep Apnea CPAP BIPAP Do you snore loudly (louder than talking or can be heard Do you often feel tired/ fatigued/ sleepy during daytime? Has anyone observed you stop breathing during sleep? STOP Results QUESTION #5 FULL TEXT : Do you snore loudly (louder than talking or can be heard through closeddoors)? 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: Tobacco Use History - ammunition and explosives handler Tobacco Use Smoking Status Never smoker 09/25/24 16:29 Hx Tobacco Use Years Smoking Packs Smoked per Day Smoking Cessation Date was within the last 15 years Hx Smoking Cessation Date Hx Smoking Cessation Counseling Hematologic Medial History Hematologic Hx - ammunition and explosives handler: Hematologic Medical Hx - customer supply coordinator Hx of Blood Transfusion Hx of Transfusion in last 3 Months Date of Last Transfusion (if within last 3 months) Ever experience any problems with transfusion(s)? Specify any problems Hx of Preganancy in last 3 Months Nurse Filling Out Transfusion & Questions: Date: Time: Patient unable to answer at this time (ie. confused, unrespo /Reproduction History /Reproductive History - ammunition and explosives handler: /Reproductive Hx- ammunition and explosives handler Hx Now Gestational Age (in weeks): EDC: Hx Hx Para Hx Section SAB No 09/25/24 13:44 PFSH Medical History Biliary colic Home Medications ?Medication ?Instructions ?Recorded ?Last Taken ?Type NK 09/25/24 Unknown History Allergy/AdvReac Type Severity Reaction Status Date / Time No Known Allergies Allergy Verified 09/25/24 14:07 Family History Mother No problems noted. Father No problems noted. Surgical History Hx of appendectomy Social History household members: spouse, children and other details: 2 older children at home, 1 miscarriage, 1 09/24/24. Smoking Status: Never smoker alcohol intake: never substance use type: does not use Review of Systems (Anesthesia) ROS Narrative System reviewed and no additional complaints, except as documented. 09/25/24 1649 > Date _ Saran Dean Signature: Date CC: ~ Signed [facility]04-18-2025 History and physical note [facility] Medical Records Department [address] [place] [address] H&P Exam - Hospitalist 09/25/24 1614 MR#: [id number] Acct: [id number] Name: LUCY CROWLEY V Rep #:[id number] : 2000 24 From: Radha Romano MD PCP: Dr. Heather Ruby, DO Status:[facility] Location: [place] [address] HPI - General General Date of Admission: 09/25/24 Date of Service: 09/25/24 Chief Complaint: Epigastric pain. HPI Narrative The patient is a 24 y/o Worship F w/ PMHx: Biliary colic which from description has been ongoing for some time who presents to the [facility] ED with history of being in her third trimester of with due datetechnically on 03 October however on Saturday she started havingepigastric and right upper quadrant pain approximately 30 minutes following her meals with painnoted to be sharp stabbing and dull aching with associated nausea, emesis and diaphoresis however it seemed to subside but tended to also wax and wane with a reoccurrence event on at 3 AM in the morning with also at that time potential uterine cramps prompting outside facility ED evaluation at [facility]. Patient was admitted and delivered a healthy infant with no concerns per discussion with patient and spouse as well as review of facility records. The facility did speak with keg varnisher Dr. Chacon who recommended ERCP and was under the impression patient was being transferred to [facility] for treatment but secondary to cost and patient/spouse preference they ended up coming by private drive and presented tot ED. Patient notes that when her pain wasat its worst was 9-10 out of 10 inseverity. Currently she notes pain is improved and reporting 0 out of 10. Records from outside facility included most recently CMP with total bilirubin 4.2, AST/ALT 82/156, CBC with WBC 10.0, hemoglobin 11.4, platelet 184 with left shift, gallbladder ultrasound with evidence of cholelithiasis with numerous small stones layering in the gallbladder with mild intrahepatic ductal dilatation obtained on 09/24/2024 with follow-up repeat ultrasound with cholelithiasis with then common bile duct dilatation to 11 mm with intraductal calculus not demonstrated at that time but increasing concern. She denies any recent fevers or chills. Workup in the ED included T96.8 Temporal, heart rate 86, BP 108/78, respiratory rate 15, under percent on room air with most recent repeat vitals T97.9, heart rate 88, BP 92/69, respiratory rate 16, 95% on room air, CBC with WC 10.2,hemoglobin 0.7, platelets 177 with left shift, CMP with glucose 108, lactic acid less than 1, T. bili 4.12, D bili 3.02, AST/LT 74/25, alk phos 154, lipase 23. ED did discuss case with Dr. Chacon gastroenterology with plan for ERCP and also with Dr. Mayo general surgeon who requested medical admission with expected consult following ERCP per discussion with ED physician. [facility] Medical History (Updated 09/25/24 @ 16:[address] Radha Romano MD) Biliary colic Home Medications ?Medication ?Instructions ?Recorded ?Last Taken ?Type NK 09/25/24 Unknown History Allergy/AdvReac Type Severity Reaction Status Date / Time No Known Allergies Allergy Verified 09/25/24 14:07 Family History (Updated 09/25/24 @ 16:[address] Radha Romano MD) Mother No problems noted. Father No problems noted. Surgical History (Updated 09/25/24 @ 14:03 by Fiona Bustos) Hx of appendectomy Social History (Updated 04/18/25 @ 16:[address] Radha Romano MD) household members: spouse, children and other details: 2 older children at home, 1 miscarriage, 1 09/24/24. Smoking Status: Never smoker alcohol intake: never substance use type: does not use ROS ROS Narrative Admission Review of Systems: CONSTITUTIONAL: No weight loss, fever, chills, + weakness or fatigue. HEENT: + Mild jaundice/mild scleral icterus Eyes: No visual loss, blurred vision, double vision or yellow sclerae. Ears, Nose, Throat: No hearing loss, sneezing, congestion, runny nose or sore throat. SKIN: No rash or itching, lesions, wounds, + mild scleral icterus/jaundice evidence, occasional stage ecchymoses likely from recent lab draws. CARDIOVASCULAR: No chest pain, chest pressure or chest discomfort, palpitations,edema, orthopnea, syncopal events. RESPIRATORY: No shortness of breath, cough or sputum, wheezing, hemoptysis. GASTROINTESTINAL: + Decreased appetite, episode of nausea and emesis, abdominal pain. No diarrhea, abdominal pain, melena, BRBPR. GENITOURINARY: No dysuria, frequency, urgency or retention. NEUROLOGICAL: No headache, dizziness, syncope, paralysis, ataxia, numbness or tingling in the extremities, focal weakness, change in bowel or bladder control,seizure. MUSCULOSKELETAL: + muscle, back pain, joint pain or stiffness. HEMATOLOGIC: + Anemia likely associate with , recent spontaneous vaginal delivery with expected postdelivery vaginal bleeding. LYMPHATICS: No enlarged nodes. No history of splenectomy. PSYCHIATRIC: No history of depression or anxiety. ENDOCRINOLOGIC: No reports of sweating, cold or heat intolerance. No polyuria orpolydipsia. ALLERGIES: No history of asthma, hives, eczema or rhinitis. Vital Signs Vital Signs Vital Signs: 09/25/24 13:44 09/25/24 14:43 09/25/24 14:45 Temperature 96.8 F L 97.7 F L Temperature Source Temporal Oral Pulse Rate 86 94 94 Respiratory Rate 15 15 Blood Pressure 108/78 105/77 106/63 Blood Pressure Mean 88 86 77 Pulse Ox 100 96 97 Oxygen Delivery Method Room Air Room Air Room Air 09/25/24 15:00 Temperature 97.8 F Temperature Source Oral Pulse Rate 86 Respiratory Rate 15 Blood Pressure 94/61 Blood Pressure Mean 72 Pulse Ox 96 Oxygen Delivery Method Room Air Physical Exam Narrative Physical Examination: General: Awake, alert, oriented x 3 and cooperative, seated upright in the ED bed in no apparent distress, fatigued, notes pain is absent at this time. Skin: Mildly jaundiced color, normal turgor, no icterus, no cyanosis except occasional stage ecchymoses suspected likely from recent lab draws at alternate facility HEENT: AT/NC, EOMI, PERRLA, mild scleral icterus evident, mildly dry MM, no carotid bruits or JVD noted. Lungs: CTA bilaterally, moderate effort, mild decrease BL bases, no rales, ronchi or wheezing. Heart: Regular rate and rhythm; no gallop, rub audible. Abdomen: Soft, no significant tenderness to palpation of the epigastric or rightupper quadrant despite recent pain reported prior, she notes it currently is better, some discomfort with palpation of the uterine fundus as to be expected, no marked distention evident, distant BS, no obvious HSM. Extremities: No cyanosis, clubbing, or edema. Neurological: Patient awake, alert, oriented as noted, cognitive function intact; pupils equally reactive to light and accommodation, cranial nerves grossly normal, moving all 4 extremities, no focaldeficits, strength mildly globally decreased. Psychiatric: Affect appears fatigued, no acute evidence of depressive or anxietyfeelings. Results Lab / Micro Data 09/25/24 14:40 09/25/24 14:40 Labs: Laboratory Results - last 24 hr 09/25/24 14:40: WBC 10.2, RBC 3.75 L, Hgb 11.7 L, Hct 34.0 L, MCV 90.7, MCH 31.2, MCHC 34.4, RDW Std Deviation 42.6, RDW Coeff of Rebeca 13.0, Plt Count 177, MPV 10.4, Immature Gran % (Auto) 0.900, Neut% (Auto) 77.6 H, Lymph % (Auto) 15.8 L, Mathews % (Auto) 4.9, Eos % (Auto) 0.4, Baso % (Auto) 0.4, Absolute Neuts (auto) 8.0 H, Absolute Lymphs (auto) 1.62, Nucleated RBC % 0, Sodium 137, Potassium 3.6,Chloride 104, Carbon Dioxide 22.6, Anion Gap 10, BUN 4, Creatinine 0.70, Est GFR (MDRD) Non-Af 123,BUN/Creatinine Ratio 6.2 L, Glucose 108 H, Calcium 9.0, Total Bilirubin 4.12 H, Direct Bilirubin 3.02 H, AST 74 H, ALT 95 H, Alkaline Phosphatase 154 H, Total Protein 6.2, Albumin 3.4 L, Globulin 2.8, Lipase 23 09/25/24 14:45: Lactic Acid < 1.0 Assessment & Plan Assessment/Plan (1) Choledocholithiasis: (2) Vaginal delivery: PLAN: Plan The patient is a 24 y/o Worship F w/ PMHx: Biliary colic which from description has been ongoing for some time who presents to the [facility] ED with history of being in her third trimester of with due datetechnically on 03 October however on Saturday she started havingepigastric and right upper quadrant pain approximately 30 minutes following her meals with painnoted to be sharp stabbing and dull aching with associated nausea, emesis and diaphoresis however it seemed to subside but tended to also wax and wane with a reoccurrence event on at 3 AM in the morning with also at that time potential uterine cramps prompting outside facility ED evaluation at [facility]. #1. Acute choledocholithiasis with significant hyperbilirubinemia, transaminitis, mild leukocytosiswith shift complicated by #2: Will admit to medical surgical floor, plan for transition potentiallyfrom ED to ERCP lab per discussion with gastroenterology, will continue n.p.o. status, IV PPI, IV fl uids, IV Zosyn, continued CBC, BMP/Paddock profile trending as well as lipase trending, General Surgery also consulted for planned upcoming cholecystectomy given history. #2. Recent spontaneous vaginal delivery with breast-feeding status: Will maintain on vitamin and have requested breast pump be made available for patient and that breastmilk be stored in thenormal section that OB utilizes. Pharmacy consulted to review medications given breast-feeding status. #3. Normocytic anemia, suspect related with : Admission hemoglobin 11.7, MCV 90.7, similarto outside facility, will continue to trend CBC. Continue on complete prenatals as noted above. #4. DVT prophylaxis: SCDs. Charges/Coding Visit Charges Inpatient E&M: 24414 Init Hosp L2 09/25/24 1640 Cosigner Signature (if applicable): CC: Dr. Radha Romano MD; Dr. Heather Ruby DO~ Signed [facility]04-18-2025 Discharge summary [facility] Medical Records Department [address] [place] [address] Emergency Department Summary 09/25/24 MR#: [id number] Acct: [id number] Name: LUCY CROWLEY V Rep #:[id number] : 2000 From: Florentin vega DO PCP: Dr. Heather Ruby DO Status:R EG ER Location: ED HPI History of Present Illness Chief Complaint: Abd Pain Narrative Narrative: Chief complaint and HPI: Right upper quadrant with epigastric abdominal pain. 24-year-old female who is A1 who was induced on 09/26/2024 at 38.6 weeks anddelivered via vaginal delivery who presents for right upper quadrant and epigastric pain from [facility]. She was a transfer. History taken by patient, medical record, Dr. Chacon. Patient states that she started having right upper quadrant/epigastric pain on Saturday. She went to the [facility] on in which they induced her due to the concern of her gallbladder. She states the delivery went well without any complications for her the child. She has continued to have right upper quadrant/epigastric pain that radiates to the back. She endorses some nausea but denies vomiting. She denies any fever, chills,shortness of breath, chest pain, dysuria, diarrhea, constipation. Patient states that the ER was expecting her however none of the ER faculty knewthat the patient was arriving. She did come with paperwork. She had a right upper quadrant ultrasound performed on 09/25/2024 that showed cholelithiasis. The common bile duct is dilated at 11 mm. Intraductal calculus is not demonstrated. She had mild transaminitis with a total bilirubin of 4.1. The faculty over there spoke with Dr. Chacon. Her lipase was 23. She had no leukocytosis. I spoke with Dr. Chacon personallyon the phone, he states that the plan is medical admission with ERCP. Review of systems: See HPI Medications: As listed on the chart Allergies: As listed on the chart PFSH: Per chart Vital signs: As listed on the chart. Reviewed. Physical exam: Gen: A&O x3, NAD Head: Normocephalic, atraumatic Eyes: Sclera icterus, PERRL, EOMI ENT: Moist mucous membranes Neck: Trachea midline, No JVD CV: RRR, no murmurs, no peripheral edema Resp: Lungs CTA BL, no w/r/c GI: Abd soft, non-distended, mildly tender to palpation diffusely, no rebound orrigidity : No CVA tenderness Musc: Full ROM, no deformity Skin: Warm, jaundice Neuro: Alert, oriented, grossly intact, sensation intact Psych: Cooperative, appropriate mood and affect PFSH PFSH Home Medications ?Medication ?Instructions ?Recorded ?Last Taken ?Type NK 09/25/24 Unknown History Allergy/AdvReac Type Severity Reaction Status Date / Time No Known Allergies Allergy Verified 09/25/24 14:07 Surgical History (Updated 09/25/24 @ 14:03 by Fiona Bustos) Hx of appendectomy Social History Smoking Status: Never smoker EXAM Physical Exam Const Vital Signs: 09/25/24 13:44 09/25/24 14:43 09/25/24 14:45 Temperature 96.8 F L 97.7 F L Temperature Source Temporal Oral Pulse Rate 86 94 94 Respiratory Rate 15 15 Blood Pressure 108/78 105/77 106/63 Blood Pressure Mean 88 86 77 Pulse Ox 100 96 97 Oxygen Delivery Method Room Air Room Air Room Air 09/25/24 15:00 Temperature 97.8 F Temperature Source Oral Pulse Rate 86 Respiratory Rate 15 Blood Pressure 94/61 Blood Pressure Mean 72 Pulse Ox 96 Oxygen Delivery Method Room Air MDM MDM MDM Narrative Medical decision making narrative: 24-year-old female who is A1 who was induced on 09/26/2024 at 38.6 weeks and delivered via vaginal delivery who presents for right upper quadrant and epigastric pain from [facility]. See HPI. Patient was induced secondaryto her pain. She was found to have transaminitis with concern of chol edocholithiasis, they spoke with Dr. Chacon with GI and patient was transferred to our hospital. The only issue was nobody in the emergency department was expecting her. I did speak to Dr. Chacon personally as well as reviewed her outlying facility labs and ultrasound. Plan is for admission with ERCP. NS bolus, morphine, Zofran ordered for pain. Will repeat labs before admission. Differential diagnosis includes but is not limited to choledocholithiasis, cholecystitis, cholangitis, pancreatitis,electrolyte abnormality. CBC without leukocytosis. Patient has anemia with hemoglobin of 11.7. She did just have a vaginal delivery. CMP without TIGIST but positive for transaminitis and hyperbilirubinemia. Total bilirubin is 4.12. Direct is 3.02. AST is 74. ALT is 95. Alk phosphatase is 154. Lipase unremarkable. Lactic acid unremarkable. Patient's pain is concerning for choledocholithiasis. Patienthas no signs of cholangitis at this time however will cover prophylactically with Zosyn. Patient will warrant admission for ERCP and further workup. Patient was discussed with hospitalist service whoaccepted admission. Impression: 1. Right upper quadrant send epigastric pain with dilated common bile duct, concern for choledocholithiasis 2. Hyperbilirubinemia 3. Transaminitis 4. Recent vaginal delivery after induction Lab Data Labs: Laboratory Results - last 24 hr 09/25/24 09/25/24 14:40 14:45 WBC 10.2 RBC 3.75 L Hgb 11.7 L Hct 34.0 L MCV 90.7 MCH 31.2 MCHC 34.4 RDW Std Deviation 42.6 RDW Coeff of Rebeca 13.0 Plt Count 177 MPV 10.4 Immature Gran % (Auto) 0.900 Neut % (Auto) 77.6 H Lymph % (Auto) 15.8 L Mathews % (Auto) 4.9 Eos % (Auto) 0.4 Baso % (Auto) 0.4 Absolute Neuts (auto) 8.0 H Absolute Lymphs (auto) 1.62 Nucleated RBC % 0 Sodium 137 Potassium 3.6 Chloride 104 Carbon Dioxide 22.6 Anion Gap 10 BUN 4 Creatinine 0.70 Est GFR (MDRD) Non-Af 123 BUN/Creatinine Ratio 6.2 L Glucose 108 H Lactic Acid < 1.0 Calcium 9.0 Total Bilirubin 4.12 H Direct Bilirubin 3.02 H AST 74 H ALT 95 H Alkaline Phosphatase 154 H Total Protein 6.2 Albumin 3.4 L Globulin 2.8 Lipase 23 Discharge Plan Triage Chief Complaint: Abd Pain ED Provider: Florentin Zamudio Dx/Rx/DC Orders Prescriptions: No Action NK Primary Care Provider: Heather Ruby Referrals: Heather Ruby DO [Primary Care Provider] - Print Language: Romanian What to do if you have Problems For any increased pain, shortness of breath, bleeding, nausea or vomiting, chestpain, or any unexpected problems, contact your Primary Care Provider. Call [facility] ([phone]) or report tothe closest Emergency Room. Call 911 if necessary. 09/25/24 1602 Cosigner Signature (if applicable): CC: Dr. Heather Ruby DO ~ Signed [facility]04-18-2025 Discharge summary Author Florentin Zamudio [facility] Note Date/Time September 25, 2024 4:0 2pm [facility] Medical Records Department [address] [facility] [place] [address] Emergency Department Summary 09/25/24 MR#: [id number] Acct: [id number] Name: LUCY CROWLEY V Rep #:[id number] : 2000 From: Florentin vega DO PCP: Dr. Heather Ruby DO Status:R EG ER Location: ED HPI History of Present Illness Chief Complaint: Abd Pain Narrative Narrative: Chief complaint and HPI: Right upper quadrant with epigastric abdominal pain. 24-year-old female who is A1 who was induced on 09/26/2024 at 38.6 weeks anddelivered via vaginal delivery who presents for right upper quadrant and epigastric pain from [facility]. She was a transfer. History taken by patient, medical record, Dr. Chacon. Patient states that she started having right upper quadrant/epigastric pain on Saturday. She went to the [facility] on in which they induced her due to the concern of her gallbladder. She states the delivery went well without any complications for her the child. She has continued to have right upper quadrant/epigastric pain that radiates to the back. She endorses some nausea but denies vomiting. She denies any fever, chills, shortness of breath, chest pain, dysuria, diarrhea, constipation. Patient states that the ER was expecting her however none of the ER faculty knewthat the patient was arriving. She did come with paperwork. She had a right upper quadrant ultrasound performed on 09/25/2024 that showed cholelithiasis. The common bile duct is dilated at 11 mm. Intraductal calculus is not demonstrated. She had mild transaminitis with a total bilirubin of 4.1. The faculty over there spoke with Dr. Chacon. Her lipase was 23. She had no leukocytosis. I spoke with Dr. Chacon personally on the phone, he states that the plan is medical admission with ERCP. Review of systems: See HPI Medications: As listed on the chart Allergies: As listed on the chart PFSH: Per chart Vital signs: As listed on the chart. Reviewed. Physical exam: Gen: A&O x3, NAD Head: Normocephalic, atraumatic Eyes: Sclera icterus, PERRL, EOMI ENT: Moist mucous membranes Neck: Trachea midline, No JVD CV: RRR, no murmurs, no peripheral edema Resp: Lungs CTA BL, no w/r/c GI: Abd soft, non-distended, mildly tender to palpation diffusely, no rebound orrigidity : No CVA tenderness Musc: Full ROM, no deformity Skin: Warm, jaundice Neuro: Alert, oriented, grossly intact, sensation intact Psych: Cooperative, appropriate mood and affect PFS PFS Home Medications ?Medication ?Instructions ?Recorded ?Last Taken ?Type NK 09/25/24 Unknown History Allergy/AdvReac Type Severity Reaction Status Date / Time No Known Allergies Allergy Verified 09/25/24 14:07 Surgical History (Updated 09/25/24 @ 14:03 by Fiona Bustos) Hx of appendectomy Social History Smoking Status: Never smoker EXAM Physical Exam Const Vital Signs: 09/25/24 13:44 09/25/24 14:43 09/25/24 14:45 Temperature 96.8 F L 97.7 F L Temperature Source Temporal Oral Pulse Rate 86 94 94 Respiratory Rate 15 15 Blood Pressure 108/78 105/77 106/63 Blood Pressure Mean 88 86 77 Pulse Ox 100 96 97 Oxygen Delivery Method Room Air Room Air Room Air 09/25/24 15:00 Temperature 97.8 F Temperature Source Oral Pulse Rate 86 Respiratory Rate 15 Blood Pressure 94/61 Blood Pressure Mean 72 Pulse Ox 96 Oxygen Delivery Method Room Air MDM MDM MDM Narrative Medical decision making narrative: 24-year-old female who is A1 who was induced on 09/26/2024 at 38.6 weeks and delivered via vaginal delivery who presents for right upper quadrant and epigastric pain from [facility]. See HPI. Patient was induced secondaryto her pain. She was found to have transaminitis with concern of choledocholithiasis, they spoke with Dr. Chacon with GI and patient was transferred to our hospital. The only issue was nobody in the emergency department was expecting her. I did speak to Dr. Chacon personally as well as reviewed her outlying facility labs and ultrasound. Plan is for admission with ERCP. NS bolus, morphine, Zofran ordered for pain. Will repeat labs before admission. Differential diagnosis includes but is not limited to choledocholithiasis, cholecystitis, cholangitis, pancreatitis, electrolyte abnormality. CBC without leukocytosis. Patient has anemia with hemoglobin of 11.7. She did just have a vaginal delivery. CMP without TIGIST but positive for transaminitis and hyperbilirubinemia. Total bilirubin is 4.12. Direct is 3.02. AST is 74. ALT is 95. Alk phosphatase is 154. Lipase unremarkable. Lactic acid unremarkable. Patient's pain is concerning for choledocholithiasis. Patient has no signs of cholangitis at this time however will cover prophylactically with Zosyn. Patient will warrant admission for ERCP and further workup. Patient was discussed with hospitalist service who accepted admission. Impression: 1. Right upper quadrant send epigastric pain with dilated common bile duct, concern for choledocholithiasis 2. Hyperbilirubinemia 3. Transaminitis 4. Recent vaginal delivery after induction Lab Data Labs: Laboratory Results - last 24 hr 09/25/24 09/25/24 14:40 14:45 WBC 10.2 RBC 3.75 L Hgb 11.7 L Hct 34.0 L MCV 90.7 MCH 31.2 MCHC 34.4 RDW Std Deviation 42.6 RDW Coeff of Rebeca 13.0 Plt Count 177 MPV 10.4 Immature Gran % (Auto) 0.900 Neut % (Auto) 77.6 H Lymph % (Auto) 15.8 L Mathews % (Auto) 4.9 Eos % (Auto) 0.4 Baso % (Auto) 0.4 Absolute Neuts (auto) 8.0 H Absolute Lymphs (auto) 1.62 Nucleated RBC % 0 Sodium 137 Potassium 3.6 Chloride 104 Carbon Dioxide 22.6 Anion Gap 10 BUN 4 Creatinine 0.70 Est GFR (MDRD) Non-Af 123 BUN/Creatinine Ratio 6.2 L Glucose 108 H Lactic Acid < 1.0 Calcium 9.0 Total Bilirubin 4.12 H Direct Bilirubin 3.02 H AST 74 H ALT 95 H Alkaline Phosphatase 154 H Total Protein 6.2 Albumin 3.4 L Globulin 2.8 Lipase 23 Discharge Plan Triage Chief Complaint: Abd Pain ED Provider: Florentin Zamudio Dx/Rx/DC Orders Prescriptions: No Action NK Primary Care Provider: Heather Ruby Referrals: Heather Ruby DO [Primary Care Provider] - Print Language: Romanian What to do if you have Problems For any increased pain, shortness of breath, bleeding, nausea or vomiting, chestpain, or any unexpected problems, contact your Primary Care Provider. Call [place] [facility] ([phone]) or report to the closest Emergency Room. Call 911 if necessary. 09/25/24 1602 <Electronically signed by Florentin Zamudio DO> Cosigner Signature (if applicable): CC: Dr. Heather Ruby DO ~ Signed [facility] Work Phone: [phone]) 536-919803-07-2024 NotePROCEDURE: ULTRASOUND 1ST TRIMESTER W TRANSVAGINAL, 08/15/2023 5:32 PM EST CLINICAL INDICATIONS: Pelvic and perineal pain, vaginal bleeding, first trimester 3 para 2 LMP 05/29/2023 Expected gestational age by LMP: 10 weeks 6 days Expected FANNY by LMP: 03/06/2024 COMPARISON: None TECHNIQUE: Transabdominal, transvaginal first trimester obstetric sonogram, grayscale, color and spectral assessment. FINDINGS: Uterus: 10.1 x 6.2 x 5.2 cm. Gestational saclike fluid collection is identified within the lower uterine segment. Embryonic pole, yolk sac or cardiac activity are not demonstrated. This collection is misshapen with angular margins. Mean gestational sac size: 0.78 cm Sonographic gestational age: 5 weeks 4 days +/- 4 days Sonographic FANNY 04/12/2024 Additional perigestational hemorrhage is not evident. Additional focal uterine abnormality is not seen. There is decidual reaction of the endometrium up to 2.0 cm. Maternal right ovary: 3.1 x 1.6 x 1.6 cm, volume 4 mL. 1.0 cm exophytic right ovarian or paraovarian cyst is favored. Maternal left ovary: 3.0 x 1.5 x 1.7 cm, volume 4 mL. A thick-walled 1.8 x 1.7 x 1.8 cm maternal left ovarian corpus luteal cyst noted. Trace pelvic free fluid in the cul-de-sac noted. IMPRESSION: 1. Probable intrauterine , uncertain viability. There is an intrauterine gestational saclike structure in the lower uterine segment. No embryonic pole, yolk sac or cardiac activity could be documented. Follow-up sonogram in 12-14 days recommended. 2. The gestational sac size would be consistent with 5 week 4 day gestation +/- 4 days. Sonographic FANNY 04/12/2024 3. The gestational sac is low in position, lower uterine segment, misshapen with angular margins, worrisome for abnormal early . Attention on follow-up recommended in this regard 4. Trace maternal pelvic free fluid 5. Normal maternal right ovarian sonographic morphology 6. 1.8 cm maternal left ovarian corpus luteal cystox [facility] Discharge summary Author Aquilino Collins [facility] Note Date/Time October 23, 2024 1:18p m [facility] Medical Records Department [address] [place] [address] Discharge Summary 10/23/24 1305 MR#: [id number] Acct: [id number] Name: LUCY CROWLEY V Rep #:[id number] : 2000 From: Aquilino Collins MD PCP: Dr. Heather Ruby DO Status:A DM IN Location: NE3 [id number] Providers Date of Admission: 10/20/24 Date of Discharge: 10/23/24 Primary Care Physician: Dr. Heather Ruby DO Reason For Visit: ACUTE CHOLECYSTITIS Diagnosis Discharge Diagnosis (1) Gallstone: Status: Acute Code(s): K80.20 - Calculus of gallbladder without cholecystitis without obstruction Qualifiers: Cholecystitis presence: with cholecystitis Cholecystitis acuity: acute Biliary obstruction: without biliary obstruction Qualified Code(s): K80.00 - Calculus of gallbladder with acute cholecystitis without obstruction (2) Acute cholecystitis: Status: Acute Code(s): K81.0 - Acute cholecystitis Plan I have been consulted in conjunction with Dr. Collins. He has independently evaluated this patient. Patient is a 24 y/o F who presented with a 6 day historyof worsening right upper quadrant abdominal pain and fever. She has a history ofERCP with gallstone removal and stent placement x [address] Chacon. She was notscheduled to have her gallbladder removed until January. With the patient's persistent right upper quadrant abdominal pain associated with eating and RUQ u/s consistent with acute cholecystitis, I believe it is in the patient's benefit to have her gallbladder removed. Dr. Collins will plan to perform a laparoscopic cholecystectomy with intraoperative cholangiogram today. Procedure details, risks and benefits have been explained to the patient and her by myself and Dr. Collins. Patient will continue to keep her ERCP with stent removal at the end of November. Patient and her have had the opportunity to ask and have questions answered. Patient verbally understands and agrees with the plan. Thank you for allowing us to participate in this patient's care. Medications at Discharge Home Medications oxycodone-acetaminophen 5 mg-325 mg tablet (Percocet) 1 tab PO Q8H PRN pain 3 days #7 tabs 10/23/24 Hospital Course Operations cholecystecomy Procedures None Summary of Care Provided Minutes Spent on Discharge: 15 Hospital Course: The patient is a 24-year-old female who is 4 weeks . She developed choledocholithiasis during her at I believe 38 weeks. She was inducedand then underwent an ERCP and had a stent placed. She was initially offered cholecystectomy during that hospitalization but declined and stated that she would rather have this performed at a hospital closer to home. She initially did well for several weeks but then developed abdominal pain for the past week. She presented to the emergency department at [facility] with right upper quadrant pain and fevers. Ultrasound showed a gallbladder wall thickening and pericholecystic fluid. Labs were unremarkable. She was subsequently admitted with plans for cholecystectomy. She was brought to the operating room and a very thickened inflamed gallbladder was identified. Dissection of the infundibulum to identify the cystic duct and cystic artery were not able to be performed. Due to concern for possible bile duct injury it was decided to do a subtotal cholecystectomy rather than risk injury. This was performed without incident. A drain was left in place. She did well postoperatively. We have kept her on antibiotics white count remains normal. She remains afebrile. AYSE drain output has remained serosanguineous. She looks good today and is hoping to go home today if possible. I think this is certainly possible. Her drain output has been around 60 cc and is serosanguineous. I will discharge her home with the drain with plans to remove the drain in office next week Physical Exam Narrative She is alert and oriented x 3. She is in no acute distress. Abdomen is soft And appropriately tender. AYSE drain with serosanguineous output Weight / BMI Weight Weight: 197 lb 8.547 oz Body Mass Index (BMI) 31.8 ABG / Lab / Microbiology Data 10/23/24 05:15 10/23/24 05:15 Laboratory: Laboratory Results - last 24 hr 10/23/24 05:15: WBC 11.4 H, RBC 3.64 L, Hgb 11.1 L, Hct 32.9 L, MCV 90.4, MCH 30.5, MCHC 33.7, RDW Std Deviation 39.5, RDW Coeff of Rebeca 11.9, Plt Count 271, MPV 9.9, Immature Gran % (Auto) 1.000 H, Neut % (Auto) 57.9, Lymph % (Auto) 30.5, Mathews % (Auto) 4.4, Eos % (Auto) 5.8 H, Baso % (Auto) 0.4, Absolute Neuts (auto) 6.6, Absolute Lymphs (auto) 3.48, Nucleated RBC % 0, Sodium 142, Potassium 3.4, Chloride 107, Carbon Dioxide 24.3, Anion Gap 11, BUN 13, Creatinine 0.76, Estim Creat Clear Calc 127.58, Est GFR (MDRD) Non-Af 111, BUN/Creatinine Ratio 17.3, Glucose 83, Calcium 8.6, Total Bilirubin 0.21, AST 11, ALT 10, Alkaline Phosphatase 75, Total Protein 5.8 L, Albumin 3.0 L, Globulin 2.8, Albumin/Globulin Ratio 1.0 Microbiology: Microbiology 10/20/24 18:00 Urine, Clean Catch Urine Culture - Preliminary GPC Poss Enterococcus sp Mixed Gram Positive Organisms D/C Instructions Discharge Diet: Light diet - advance as tolerated Discharge Activity: Return to Normal Activity and May Shower May shower in (days): 1 Lifting Restrictions: Keep lifting under 20 pounds for 3 to 4 weeks Call your doctor if your incision/area has: Continuous Slow Oozing, Sudden Increased Bleeding, Increased Pain/ Swelling, Increased Redness, Foul Smelling Discharge, Swelling at the incision site and - (These call if AYSE drain output turns green or dark yellow) Call your doctor if you observe: Fever of 101 or Higher Cleanse incision/area with: Soap & Water DC O2, CPAP, BIPAP Needs Home O2 Discharge instructions: No DC home with Oxygen: No Please Follow Up With: Aquilino Collins MD When: Early next week. Please call office Saturday to schedule appointment to have drain removed Meaningful Use Info Meaningful Use Meaningful Use Diagnoses (Choose all that apply): None applicable Ischemic Stroke Statin Dosing Therapy Reference: STATIN DOSE THERAPY REFERENCE: * Patients > 75 years receive moderate or high dose statin therapy. * Patients 75 years or YOUNGER should receive HIGH intensity statin dose unless contraindicated. You will be required to document reason for non-treatment if statin daily dose does not meet guidelines. HIGH DOSE STATIN THERAPY DAILY Atorvastatin > than or = to 40 mg Rosuvastatin > than or = to 20 mg Amlodipine + Atorvastatin > than or = to 2.5/40 mg Ezetimibe + Simvastatin 10/80 mg Simvastatin 80mg Discharge Plan Admission Admit Date/Time: 10/20/24 20:46 Primary Reason for Your Visit: Acute cholecystitis Attending Provider: Aquilino Collins Primary Care Provider: Heather Ruby Discharge Orders/Prescriptions Prescriptions: New oxycodone-acetaminophen [Percocet] 5-325 mg tablet 1 tab PO Q8H PRN (Reason: pain) 3 Days Qty: 7 0RF Referrals / Follow Up: Heather Ruby DO [Primary Care Provider] - Disposition Disposition (needs filled in before D/C Order can be placed): Home, Self Care 10/23/24 1318 <Electronically signed by Aquilino Collins MD> Cosigner Signature (if applicable): CC: Dr. Heather Ruby DO; Dr. Aquilino Collins MD~ Signed [facility] Work Phone: Evaluation noteNo assessment information available [facility] Work Phone: Reason for referral (narrative)No reason for referral [facility]: Summary Purpose Family History No Family History Records FoundNo Family History Records FoundNo Family History Records Found Advance Directives No Advanced Directives Records Found Advance Directive Response Recorded Date/ Time Living Will No September 25, 2024 2:02pm Do you have a Healthcare Power of Lead Housekeeper? No September 25, 2024 2:02pm Advance Directive Response Recorded Date/ Time Living Will No September 25, 2024 6:42pm Do you have a Healthcare Power of Lead Housekeeper? No September 25, 2024 6:42pm Advance Directive Response Recorded Date/ Time Living Will No September 25, 2024 6:42pm Do you have a Healthcare Power of Lead Housekeeper? No September 25, 2024 6:42pm Do you have a Healthcare Power of Lead Housekeeper? No October 20, 2024 5:54pm Advance Directive Response Recorded Date/ Time Living Will No September 25, 2024 6:42pm Do you have a Healthcare Power of Lead Housekeeper? No September 25, 2024 6:42pm Do you have a Healthcare Power of Lead Housekeeper? No October 20, 2024 9:23pm Chief Complaint and Reason for Visit Chief Complaint Admit Date ABD PAIN September 25, 2024 4:0 9pm Chief Complaint Admit Date ABD PAIN September 25, 2024 4:1 4pm ABD PAIN September 25, 2024 4:4 8pm ABD PAIN September 26, 2024 9:0 8am ABD PAIN September 26, 2024 11: 23am Reason for Visit Admit Date Choledocholithiasis September 25, 2024 4:1 4pm Vaginal delivery September 25, 2024 4:1 4pm Chief Complaint Admit Date ABD PAIN September 25, 2024 4:1 4pm ABD PAIN September 25, 2024 4:4 8pm ABD PAIN September 26, 2024 9:0 8am ABD PAIN September 26, 2024 11: 23am New PT October 09, 2024 8:34am ACUTE CHOLECYSTITIS October 20, 2024 8:46p m Reason for Visit Admit Date Choledocholithiasis September 25, 2024 4:1 4pm Vaginal delivery September 25, 2024 4:1 4pm History of biliary stent insertion October 092024 8:34am Abdominal pain October 20, 2024 8:46p m Acute cholecystitis October 20, 2024 8:46p m Fever October 20, 2024 8:46p m Gallstone October 20, 2024 8:46p m Chief Complaint Admit Date ABD PAIN September 25, 2024 4:1 4pm ABD PAIN September 25, 2024 4:4 8pm ABD PAIN September 26, 2024 9:0 8am ABD PAIN September 26, 2024 11: 23am New PT October 09, 2024 8:34am ACUTE CHOLECYSTITIS October 20, 2024 8:46p m ACUTE CHOLECYSTITIS October 21, 2024 7:54a m ACUTE CHOLECYSTITIS October 22, 2024 6:50a m ACUTE CHOLECYSTITIS October 23, 2024 1:05p m Reason for Visit Admit Date Choledocholithiasis September 25, 2024 4:1 4pm Vaginal delivery September 25, 2024 4:1 4pm History of biliary stent insertion October 092024 8:34am Abdominal pain October 20, 2024 8:46p m Acute cholecystitis October 20, 2024 8:46p m Fever October 20, 2024 8:46p m Gallstone October 20, 2024 8:46p m History of biliary stent insertion October 082024 8:46pm Chief Complaint Admit Date ABD PAIN September 25, 2024 4:1 4pm ABD PAIN September 25, 2024 4:4 8pm ABD PAIN September 26, 2024 9:0 8am ABD PAIN September 26, 2024 11: 23am New PT October 09, 2024 8:34am ACUTE CHOLECYSTITIS October 20, 2024 8:46p m AM EKG October 21, 2024 5:23a m ACUTE CHOLECYSTITIS October 21, 2024 7:54a m ACUTE CHOLECYSTITIS October 22, 2024 6:50a m ACUTE CHOLECYSTITIS October 23, 2024 1:05p m DRAIN REMOVAL DOS 10/21October 28, 2024 1: 07pm Disease of biliary tract, unspecified Ma y 2024 1:55pm Chief Complaint Admit Date ABD PAIN September 25, 2024 4:1 4pm ABD PAIN September 25, 2024 4:4 8pm ABD PAIN September 26, 2024 9:0 8am ABD PAIN September 26, 2024 11: 23am New PT October 09, 2024 8:34am ACUTE CHOLECYSTITIS October 20, 2024 8:46p m AM EKG October 21, 2024 5:23a m ACUTE CHOLECYSTITIS October 21, 2024 7:54a m ACUTE CHOLECYSTITIS October 22, 2024 6:50a m ACUTE CHOLECYSTITIS October 23, 2024 1:05p m DRAIN REMOVAL DOS 10/21October 28, 2024 1: 07pm Disease of biliary tract, unspecified Ma y 2024 1:55pm S/P GALLBADDER - SELF PAY November 03, 2024 2:01pm Reason for Visit Admit Date Choledocholithiasis September 25, 2024 4:1 4pm Vaginal delivery September 25, 2024 4:1 4pm History of biliary stent insertion October 092024 8:34am History of biliary stent insertion October 082024 8:46pm Abdominal pain October 20, 2024 8:46p m Acute cholecystitis October 20, 2024 8:46p m Fever October 20, 2024 8:46p m Gallstone October 20, 2024 8:46p m Bile leak October 28, 2024 1:07p m Chief Complaint Admit Date ABD PAIN September 25, 2024 4:1 4pm ABD PAIN September 25, 2024 4:4 8pm ABD PAIN September 26, 2024 9:0 8am ABD PAIN September 26, 2024 11: 23am New PT October 09, 2024 8:34am ACUTE CHOLECYSTITIS October 20, 2024 8:46p m AM EKG October 21, 2024 5:23a m ACUTE CHOLECYSTITIS October 21, 2024 7:54a m ACUTE CHOLECYSTITIS October 22, 2024 6:50a m ACUTE CHOLECYSTITIS October 23, 2024 1:05p m DRAIN REMOVAL DOS 10/21October 28, 2024 1: 07pm Disease of biliary tract, unspecified Ma y 2024 1:55pm S/P GALLBADDER - SELF PAY November 03, 2024 2:01pm DISCUSS BIGGER STENTS -PER DR COLLINS November 03, 2024 3:23pm Additional Source Comments INFORMATION SOURCE (unrecogn ized section and content) DATE CREATED AUTHOR 08/19/2023 [facility] DATE CREATED AUTHOR AUTHOR'S ORGANIZ ATION 10/18/2024 [facility] DATE CREATED AUTHOR AUTHOR'S ORGANIZ ATION 11/12/2024 [facility] Care Teams (unrecognized sec tion and content) Team Status: Active Member Role Status Dates Dr. Heather Ruby DO Primary Care Provider Active Team Status: Inactive Member Role Status Dates Dr. Florentin Zamudio DO Emergency Provider Activ e Start: September 25, 2024 End: September 26, 2024 Dr. Heather Ruby , DO Primary Care Provider Active Start: September 25, 2024 End: September 26, 2024 Dr. Ld Chacon , Admit Provider Active St art: September 25, 2024 End: September 26, 2024 Dr. Ld Chacon , DO Other Provider Active St art: September 25, 2024 End: September 26, 2024 Dr. Chandan Mayo MD Other Provider Active Start: September 25, 2024 End: September 26, 2024 Dr. Carlin Negron MD Attending Provider Active Start: September 25, 2024 End: September 26, 2024 Team Status: Active Member Role Status Dates Dr. Florentin Zamudio DO Emergency Provider Activ e Start: September 25, 2024 Dr. Heather Ruby DO Primary Care Provider Active Start: September 25, 2024 Dr. Ld Chacon , DO Attending Provider Active Start: September 25, 2024 Dr. Ld Chacon DO Other Provider Active St art: September 25, 2024 Team Status: Active Member Role Status Dates Dr. Florentin Zamudio DO Emergency Provider Activ e Start: September 26, 2024 Dr. Heather Ruby , DO Primary Care Provider Active Start: September 26, 2024 Dr. Ld Chacon , DO Admit Provider Active St art: September 26, 2024 Dr. Ld Chacon , DO Other Provider Active St art: September 26, 2024 Dr. Chandan Mayo MD Attending Provider Active Start: September 26, 2024 Dr. Chandan Mayo MD Other Provider Active Start: September 26, 2024 Dr. Carlin Negron MD Other Provider Active Sta rt: September 26, 2024 Team Status: Active Member Role Status Dates Dr. Florentin Zamudio DO Emergency Provider Activ e Start: September 26, 2024 Dr. Heather Ruby , DO Primary Care Provider Active Start: September 26, 2024 Dr. Ld Chacon , DO Admit Provider Active St art: September 26, 2024 Dr. Ld Chacon , DO Other Provider Active St art: September 26, 2024 Dr. Chandan Mayo MD Other Provider Active Start: September 26, 2024 Dr. Carlin Negron MD Attending Provider Active Start: September 26, 2024 Dr. Carlin Negron MD Other Provider Active Sta rt: September 26, 2024 Team Status: Active Member Role Status Dates Dr. Florentin Zamudio DO Emergency Provider Activ e Start: September 25, 2024 Dr. Heather Ruby , DO Primary Care Provider Active Start: September 25, 2024 Dr. Ld Chacon , DO Attending Provider Active Start: September 25, 2024 Team Status: Active Member Role Status Dates Dr. Florentin Zamudio DO Emergency Provider Activ e Start: September 25, 2024 Dr. Heather Ruyb , DO Primary Care Provider Active Start: September 25, 2024 Dr. Ld Chacon , DO Attending Provider Active Start: September 25, 2024 Dr. Ld Chacon , DO Other Provider Active St art: September 25, 2024 Dr. Radha Romano MD Referring Provider Active Start: September 25, 2024 Team Status: Active Member Role Status Dates Dr. Florentin Zamudio DO Emergency Provider Activ e Start: September 26, 2024 Dr. Heather Ruby , DO Primary Care Provider Active Start: September 26, 2024 Dr. Ld Chacon , DO Admit Provider Active St art: September 26, 2024 Dr. Ld Chacon , DO Other Provider Active St art: September 26, 2024 Dr. Chandan Mayo MD Attending Provider Active Start: September 26, 2024 Dr. Chandan Mayo MD Other Provider Active Start: September 26, 2024 Dr. Carlin Negron MD Referring Provider Active Start: September 26, 2024 Dr. Carlin Negron MD Other Provider Active Sta rt: September 26, 2024 Team Status: Inactive Member Role Status Dates Dr. Heather Ruby DO Primary Care Provider Active Start: October 09, 2024 End: October 09, 2024 Dr. Heather Ruby DO Referring Provider Active Start: October 09, 2024 End: October 09, 2024 CARMEN Castillo Attending Provider Active Start: October 09, 2024 End: October 09, 2024 Team Status: Active Member Role Status Dates Dr. Heather Ruby DO Primary Care Provider Active Start: October 20, 2024 Dr. Dillan Wu MD Emergency Provider Active S tart: October 20, 2024 Dr. Aquilino Collins MD Admit Provider Active St art: October 20, 2024 Dr. Aquilino Collins MD Attending Provider Active Start: October 20, 2024 Team Status: Inactive Member Role Status Dates Dr. Heather Ruby DO Primary Care Provider Active Start: October 20, 2024 End: October 23, 2024 Dr. Dillan Wu MD Emergency Provider Active S tart: October 20, 2024 End: October 23, 2024 Dr. Aquilino Collins MD Admit Provider Active St art: October 20, 2024 End: October 23, 2024 Dr. Aquilino Collins MD Attending Provider Active Start: October 20, 2024 End: October 23, 2024 Team Status: Active Member Role Status Dates Dr. Heather Ruby DO Primary Care Provider Active Start: October 21, 2024 Dr. Dillan Wu MD Emergency Provider Active S tart: October 21, 2024 Dr. Aquilino Collins MD Admit Provider Active St art: October 21, 2024 Dr. Aquilino Collins MD Other Provider Active St art: October 21, 2024 Wendy MORALES PA-C Attending Provider Active Start: October 21, 2024 Team Status: Active Member Role Status Dates Dr. Heather Ruby DO Primary Care Provider Active Start: October 22, 2024 Dr. iDllan Wu MD Emergency Provider Active S tart: October 22, 2024 Dr. Aquilino Collins MD Admit Provider Active St art: October 22, 2024 Dr. Aquilino Collins MD Other Provider Active St art: October 22, 2024 Wendy MORALES PAIleanaC Attending Provider Active Start: October 22, 2024 Team Status: Active Member Role Status Dates Dr. Heather Ruby DO Primary Care Provider Active Start: October 23, 2024 Dr. Dillan Wu MD Emergency Provider Active S tart: October 23, 2024 Dr. Aquilino Collins MD Admit Provider Active St art: October 23, 2024 Dr. Aquilino Collins MD Attending Provider Active Start: October 23, 2024 Dr. Aquilino Collins MD Other Provider Active St art: October 23, 2024 Team Status: Active Member Role Status Dates Dr. Heather Ruby DO Primary Care Provider Active Start: October 21, 2024 End: October 21, 2024 Dr. Hao Hudson MD Attending Provider Active S tart: October 21, 2024 End: October 21, 2024 Dr. Aquilino Collins MD Referring Provider Active Start: October 21, 2024 End: October 21, 2024 Team Status: Inactive Member Role Status Dates Dr. Heather Ruby DO Primary Care Provider Active Start: October 28, 2024 End: October 28, 2024 Dr. Heather Ruby DO Referring Provider Active Start: October 28, 2024 End: October 28, 2024 Dr. Aquilino Collins MD Attending Provider Active Start: October 28, 2024 End: October 28, 2024 Team Status: Active Member Role Status Dates Dr. Heather Ruby DO Primary Care Provider Active Start: October 28, 2024 Dr. Aquilino Collins MD Attending Provider Active Start: October 28, 2024 Dr. Aquilino Collins MD Referring Provider Active Start: October 28, 2024 Team Status: Inactive Member Role Status Dates Dr. Heather Ruby DO Primary Care Provider Active Start: October 28, 2024 End: October 28, 2024 Dr. Aquilino Collins MD Attending Provider Active Start: October 28, 2024 End: October 28, 2024 Dr. Aquilino Collins MD Referring Provider Active Start: October 28, 2024 End: October 28, 2024 Team Status: Inactive Member Role Status Dates Dr. Heather Ruby DO Primary Care Provider Active Start: November 03, 2024 End: November 03, 2024 Dr. Heather Ruby DO Referring Provider Active Start: November 03, 2024 End: November 03, 2024 Dr. Aquilino Collins MD Attending Provider Active Start: November 03, 2024 End: November 03, 2024 Team Status: Inactive Member Role Status Dates Dr. Heather Ruby DO Primary Care Provider Active Start: November 03, 2024 End: November 03, 2024 Dr. Heather Ruby DO Referring Provider Active Start: November 03, 2024 End: November 03, 2024 CARMEN Castillo Attending Provider Active Start: November 03, 2024 End: November 03, 2024 Goals (unrecognized section and content) Goals may be documented in a n alternate section FOR RECORDS PERTAINING TO PATIENTS WHO ARE OR HAVE BEEN ENROLLED IN A CHEMICAL DEPENDENCY/SUBSTANCEABUSE PROGRAM, SOME INFORMATION MAY BE OMITTED. This clinical summary was aggregated from multiple sources. Caution should be exercised in using it in the provision of clinical care. This summary normalizes information from multiple sources, and as a consequence, information in this document may materially change the coding, format and clinical context of patient data. In addition, data may be omitted in some cases. CLINICAL DECISIONS SHOULD BE BASED ON THE PRIMARY CLINICAL RECORDS. [employer] provides no warranty or guarantee of the accuracy or completeness of information in this document.
--- NOTE | 2024-11-13 06:16 | EKG12_ITS ---
Test Reason : PREOP Blood Pressure : */* mmHG Vent. Rate : 81 BPM Atrial Rate : 81 BPM P-R Int : 158 ms QRS Dur : 94 ms QT Int : 398 ms P-R-T Axes : 64 65 36 degrees QTcB Int : 462 ms Normal sinus rhythm Normal ECG When compared with ECG of 21-Oct-2024 05:23, No significant change was found Confirmed by Austyn Villanueva ([id number]), associate editor JONAS BARNES ([id number]) on 11/16/2024 9:14:23 AM Referred By: Heather Ruby Confirmed By: Austyn Villanueva
--- NOTE | 2024-11-13 06:35 | PRE.ANES_ITS ---
ASA Classification* ASA Classification ASA Classification: 2 Assessment & Plan Anesthesia* Anesthesia Assessment Anesthesia Assessment: Discussed sedation and/or anesthesia options, risks, benefits, and alternatives with patient/parents/legal guardian/POA. Questions invited. The patient/parents/legal guardian/POA seems to understand and agrees to proceed with anesthesia plan. Reviewed the physical assessment, medical history, allergy history and patient home medications list prior to surgery/procedure/anesthetic and documented any changes. Performed airway and anesthesia risk assessments. Anesthesia Type Anesthesia Type: General Anesthesia Focused Assessment* Airway Assessment Mouth opens: >3 cm Mallampati Score: II Focused Labs Anesthesia Preop lab: CBC WBC 11.4 K/mm3 (4.4-11.0) H 10/23/24 05:15 5 RBC 3.64 M/mm3 (4.2-5.4) L 10/23/24 05:15 10/23/24 Hgb 11.1 g/dL (12.0-15.0) L 10/23/24 05:15 5 Hct 32.9 % (37-47) L 10/23/24 05:15 10/23/24 Plt Count 271 K/mm3 (150-450) 10/23/24 05:15 10/23/24 CHEMISTRY Potassium 3.4 mmol/L (3.3-5.1) 10/23/24 05:15 10/23/24 Sodium 142 mmol/L (133-145) 10/23/24 05:15 10/23/24 BUN 13 mg/dL (4-19) 10/23/24 05:15 10/23/24 Creatinine 0.76 mg/dL (0.70-1.20) 10/23/24 05:15 10/23/24 Glucose 83 mg/dL (70-99) 10/23/24 05:15 10/23/24 COAG PT 13.4 SECONDS (11.7-14.9) 10/21/24 05:20 Urine Test Negative Negative 10/21/24 08:45 10/21/24 Pre-Assessment Diagnosis/Proposed Procedure Planned Operative Procedure(s): ERCP Anesthesia History Anesthesia History - quality improvement analyst: Anesthesia History - quality improvement analyst Hx Hospitalization Yes: 10/2024 06/04/25 12:40 Any Problems With Anesthesia No 11/11/24 12:40 Cholinesterase deficiency No 11/11/24 12:40 You/Your Family Experience No 11/11/24 12:40 fever (hyperthermia) with Relationship Recent Exposure to Contagious Disease Does patient have nerve No 11/11/24 12:40 stimulator Patient instructed to have device shut off --Does patient have Pacemaker or ICD? When Was Last Pacemaker Check QUESTION #4 FULL TEXT: You/Your Family Experience fever (hyperthermia) with Anesthesia Last Oral Intake Last Oral intake: Last Oral Intake NPO since Meds taken in AM with sips of water? 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 - quality improvement analyst: PONV - quality improvement analyst Female Yes 11/11/24 12:40 HX of Motion Sickness No 11/11/24 12:40 HX of N/V After Surgery No 11/11/24 12:40 Non-Smoker Yes 11/11/24 12:40 Duration of Surgery greater No 11/11/24 12:40 than 60 minutes Number of Risk Factors 2 11/11/24 12:40 PONV Score Moderate Risk 11/11/24 12:40 Height & Weight Height & Weight: Anesthesia: Height & Weight Height 5 ft 6 in 10/20/24 21:23 Respiratory Assessment Respiratory Assessment - quality improvement analyst: Respiratory Tract Infection Hx - quality improvement analyst Hx Respiratory Tract Infection No 11/11/24 12:40 STOP Sleep Apnea STOP Sleep Apnea - quality improvement analyst: STOP Sleep Apnea - quality improvement analyst Hx Hypertension No 11/11/24 12:40 Hx Sleep Apnea No 11/11/24 12:40 CPAP BIPAP Do you snore loudly (louder No 11/11/24 12:40 than talking or can be heard Do you often feel tired/ No 11/11/24 12:40 fatigued/ sleepy during daytime? Has anyone observed you stop No 11/11/24 12:40 breathing during sleep? STOP Results Negative 11/11/24 12:40 QUESTION #5 FULL TEXT : Do you snore loudly (louder than talking or can be heard through closed doors)? 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 Specify any problems Hx of Preganancy in last 3 Yes 11/11/24 12:40 Months Nurse Filling Out Transfusion VCHRISTIN 11/11/24 12:40 & Questions: Date: 11/11/24 11/11/24 12:40 Time: 12:41 11/11/24 12:40 Patient unable to answer at this time (ie. confused, unrespo /Reproduction History /Reproductive History - quality improvement analyst: /Reproductive Hx- quality improvement analyst Hx Now No 11/11/24 12:40 Gestational Age (in weeks): EDC: Hx Hx Para Hx Section SAB Yes 11/11/24 12:40 Active Medications Active Medications: Current Medications Generic Name Dose Route Start Last Admin Trade Name Freq PRN Reason Stop Dose Admin Lactated Ringer's 1,000 mls @ 15 mls/hr 11/13/24 06:30 IV .Q48H GEOVANNA PFSH Medical History (Updated 11/11/24 @ 12:39 by Jessica Penaloza) Wears glasses Non-smoker Bile leak Biliary colic Home Medications ?Medication ?Instructions ?Recorded ?Last Taken ?Type NK 11/12/24 Unknown History Allergy/AdvReac Type Severity Reaction Status Date / Time No Known Allergies Allergy Verified 11/12/24 09:00 Family History Mother No problems noted. Father No problems noted. Surgical History (Updated 11/11/24 @ 12:39 by Jessica Penaloza) History of ERCP Hx of cholecystectomy Hx of appendectomy Social History household members: spouse, children and other details: 2 older children at home, 1 miscarriage, 1 09/24/24. Smoking Status: Never smoker alcohol intake: never substance use type: does not use Review of Systems (Anesthesia) ROS Narrative System reviewed and no additional complaints, except as documented.
[2024-11-13 06:37] LABS: Internal QC Validated? YES +Cl - CLEAR BKGD; Pregnancy, Urine Negative Negative
[2024-11-13] MEDS: Lactated Ringers 1,000 ML 15 ML IV (06:46)
--- NOTE | 2024-11-13 07:03 | PCM.HP.STD ---
[facility] - General General Date of Admission: 11/13/24 Date of Service: 11/13/24 Chief Complaint: bile leak [facility] Narrative SUSANNA CROWLEY, is a 24-year-old woman with a history of cholecystitis and choledocholithiasis status post ERCP with stent placement and subtotal cholecystectomy for extremely inflamed and chronically thickened gallbladder. She developed a bile leak about a week after the procedure. She had already had a sphincterotomy and stent placed. AYSE drain was draining bilious output. Due to persistent bile leak she comes in for stent removal, occlusion cholangiogram and placement of longer stents or fully covered metal stents for treatment of bile leak. [facility] Medical History Wears glasses Non-smoker Bile leak Biliary colic Home Medications ?Medication ?Instructions ?Recorded ?Last Taken ?Type NK 11/12/24 Unknown History Allergy/AdvReac Type Severity Reaction Status Date / Time No Known Allergies Allergy Verified 11/13/24 06:45 Family History Mother No problems noted. Father No problems noted. Surgical History History of ERCP Hx of cholecystectomy Hx of appendectomy Social History household members: spouse, children and other details: 2 older children at home, 1 miscarriage, 1 09/24/24. Smoking Status: Never smoker alcohol intake: never substance use type: does not use ROS Constitutional Constitutional: Denies fatigue, fever(s), poor appetite, weight gain or weight loss Gastrointestinal Gastrointestinal: Denies belching, bloating, change in bowel habits, change in stool character, chewing difficulty, coffee ground emesis, constipation, cramping, diarrhea, dyspepsia, dysphagia, early satiety, excessive flatus, fecal incontinence, heartburn, hematemesis, hematochezia, hemorrhoids, loose stools, melena, nausea, odynophagia, rectal bleeding, tenesmus, vomiting or weight changes Vital Signs Vital Signs Vital Signs: 11/13/24 06:47 11/13/24 06:47 Temperature 97.4 F L Temperature Source Temporal Pulse Rate 83 Respiratory Rate 16 Respiratory Pattern Normal Blood Pressure 99/62 Blood Pressure Mean 74 Blood Pressure Source Monitor Blood Pressure Position Semi-Fowlers Blood Pressure Location Left Arm Pulse Ox 98 Oxygen Delivery Method Room Air Weight Weight: 198 lb 13.711 oz Body Mass Index (BMI) 31.1 Physical Exam Const alert, oriented x3, no apparent distress and healthy appearing General Appearance: cooperative GI normal to inspection, nondistended, normoactive bowel sounds, soft to palpation, non-tender and non-distended Percussion: normal to percussion Rectal Exam: deferred Results Lab / Micro Data Labs: Laboratory Results - last 24 hr 11/13/24 06:25: Urine Test Negative Assessment & Plan Assessment/Plan (1) Bile leak: PLAN: She will undergo ERCP with treatment of bile leak. She was explained alternatives, risk and benefits include not withstanding bleeding, infection, sepsis, perforation, need emergent . She will have an ASA of 3.
--- NOTE | 2024-11-13 07:30 | FLU_PTH ---
PATIENT: SUSANNA CROWLEY V LOC: EN U#:[id number] AGE/SX: 24/F ROOM: RE11/13/[address]: Dr. Ld Chacon DO : 2000 BED: DIS: 11/13/2024 SPEC #: [id number] RECD: 11/13/24 10:41 STATUS: GRACE RESaul #: [id number] FRANCIA: 11/13/24 07:[address]: Ld Chacon DEPT: CYTOLOGY RECD BY: Melecio Peña ENTERED: 11/13/24 13:41 SP TYPE: Fluid OTHR DR: Dr. Heather Ruby DO Tissues: A - Biliary tract, NOS Procedures: Special Stain Group II Surgery Specimen Level IV Cytospin Fluid HEADER OPERATION: ERCP, stent exchange PRE-OP DIAGNOSIS: Bile leak TISSUE SUBMITTED: A- Biliary stent for cytology DIAGNOSIS CYTOLOGY A. Biliary stent (cytospin, cellblock), ERCP: * No malignant cells identified. CYTOLOGY STUDY Slides are reviewed. CYTOLOGY GROSS A. Received is 8cm blue stent labeled with the patient's name and and designated per the requisition as Biliary stent. Submitted for cytology and cell block preparation. Mr 11/13/2024 CPT: 19604 ,46391
--- NOTE | 2024-11-13 08:05 | RAD_ITS ---
PROCEDURE: ERCP BILIARY/PANCREAS; O.R. FLUORO FOR C-ARM 11/13/2024 REASON FOR EXAM: ERCP TECHNIQUE: Intraoperative fluoroscopy was performed for ERCP. 11 fluoroscopic images were also obtained. RAD/O.R. Fluoro for C-Arm IMPRESSION: Intraoperative fluoroscopy was performed for ERCP. 11 fluoroscopic images were also obtained. Reading Location: [id number]
--- NOTE | 2024-11-13 08:05 | RAD_ITS ---
PROCEDURE: ERCP BILIARY/PANCREAS; O.R. FLUORO FOR C-ARM 11/13/2024 REASON FOR EXAM: ERCP TECHNIQUE: Intraoperative fluoroscopy was performed for ERCP. 11 fluoroscopic images were also obtained. RAD/ERCP Biliary/Pancreas IMPRESSION: Intraoperative fluoroscopy was performed for ERCP. 11 fluoroscopic images were also obtained. Reading Location: [id number]
--- NOTE | 2024-11-13 09:03 | PCM.POST.ANE ---
Anesthesia: Postop Eval I Current Vital Signs Temperature: 97 F Pulse Rate: 91 Blood Pressure: 109/70 Respiratory Rate: 18 Pulse Ox: 99 Oxygen Delivery Method: Room Air Assessment Airway patent: Yes Spontaneous unlabored respirations: Yes Mental status: Awake nausea: No Vomiting: No Anesthesia Complication: No Fluid Hydration Crystalloid volume administer (ml): 900 Total IV fluid infused: 900 Progress Note Anesthesia document: Postop Eval 1 completed: Yes
--- NOTE | 2024-11-13 09:10 | OP.ERCP_ITS ---
Patient Name: Lucy Benavides Procedure Date: 11/13/2024 7:58 AM Date of : 2000 Age: 24 Procedure: ERCP Indications: Bile leak Providers: Ld Chacon DO Referring MD: Heather Ruby Do Medicines: Monitored Anesthesia Care Patient Profile: This is a 24 year old female. Refer to note in patient chart for documentation of history and physical. Patient has symptoms of acute right upper quadrant abdominal pain. Complications: No immediate complications. Procedure: Pre-Anesthesia Assessment: - Prior to the procedure, a History and Physical was performed, and patient medications and allergies were reviewed. The patient is competent. The risks and benefits of the procedure and the sedation options and risks were discussed with the patient. All questions were answered and informed consent was obtained. Patient identification and proposed procedure were verified by the physician in the pre-procedure area. Mental Status Examination: alert and oriented. Airway Examination: normal oropharyngeal airway and neck mobility. Respiratory Examination: clear to auscultation. CV Examination: normal. Prophylactic Antibiotics: The patient does not require prophylactic antibiotics. Prior Anticoagulants: The patient has taken no anticoagulant or antiplatelet agents. ASA Grade Assessment: II - A patient with mild systemic disease. After reviewing the risks and benefits, the patient was deemed in satisfactory condition to undergo the procedure. The anesthesia plan was to use monitored anesthesia care (MAC). Immediately prior to administration of medications, the patient was re-assessed for adequacy to receive sedatives. The heart rate, respiratory rate, oxygen saturations, blood pressure, adequacy of pulmonary ventilation, and response to care were monitored throughout the procedure. The physical status of the patient was re-assessed after the procedure. After obtaining informed consent, the scope was passed under direct vision. Throughout the procedure, the patient's blood pressure, pulse, and oxygen saturations were monitored continuously. The Duodenoscope was introduced through the mouth, and advanced to the duodenum and used to inject contrast into the bile duct. The ERCP was accomplished without difficulty. The patient tolerated the procedure well. Scope In: 8:30:47 AM Scope Out: 8:46:26 AM Total Procedure Duration Time 0 hours 15 minutes 39 seconds Findings: The package winder film was normal. A biliary stent was visible on the package winder film. The bile duct was deeply cannulated with the short-nosed traction sphincterotome. Contrast was injected. I personally interpreted the bile duct images. There was brisk flow of contrast through the ducts. Image quality was excellent. Contrast extended to the entire biliary tree. Extravasation of contrast originating from the cystic duct was observed. The lower third of the main bile duct contained one stone, which was 5 mm in diameter. The entire opacified area was moderately dilated, with a stone causing an obstruction. The largest diameter was 10 mm. A cholecystectomy had been performed. Placement of a long 0.025 inch Jagwire into the biliary tree was attempted. This passed successfully. A 5 mm biliary sphincterotomy was made with a traction (standard) sphincterotome using ERBE electrocautery. There was no post-sphincterotomy bleeding. The biliary tree was swept with a 12 mm balloon starting at the bifurcation, left intrahepatic duct(s) and right intrahepatic duct(s). Sludge was swept from the duct. All stones were removed. One stent was removed from the biliary tree using a snare and sent for cytology. One 10 mm by 8 cm covered metal stent was placed 5 cm into the common bile duct. Bile flowed through the stent. The stent was in good position. Impression: - The biliary system were moderately dilated, with a stone causing an obstruction. - A bile leak was found. - The patient has had a cholecystectomy. - Choledocholithiasis was found. Complete removal was accomplished by biliary sphincterotomy and balloon extraction. - A biliary sphincterotomy was performed. - The biliary tree was swept. - One stent was removed from the biliary tree. - One covered metal stent was placed into the common bile duct. Procedure Code(s): --- Professional --- 99953, Endoscopic retrograde cholangiopancreatography (ERCP); with removal and exchange of stent(s), biliary or pancreatic duct, including pre- and post-dilation and guide wire passage, when performed, including sphincterotomy, when performed, each stent exchanged 33979, Endoscopic retrograde cholangiopancreatography (ERCP); with removal of calculi/debris from biliary/pancreatic duct(s) 07953, 26, Endoscopic catheterization of the biliary ductal system, radiological supervision and interpretation CPT copyright 2021 [employer]. All rights reserved. The codes documented in this report are preliminary and upon computer systems manager review may be revised to meet current compliance requirements. Ld Chacon DO 11/13/2024 9:09:24 AM This report has been signed electronically. Number of Addenda: 0 Note Initiated On: 11/13/2024 7:58 AM
--- NOTE | 2024-11-13 09:10 | OP.CCLET_ITS ---
11/13/2024 Heather Ruby Do Re : ERCP procedure for Lucy Benavides Dear Dr. Ruby This procedure was performed on Wednesday, November 13, 2024. My impressions and recommendations are as follows: Impressions : - The biliary system were moderately dilated, with a stone causing an obstruction. - A bile leak was found. - The patient has had a cholecystectomy. - Choledocholithiasis was found. Complete removal was accomplished by biliary sphincterotomy and balloon extraction. - A biliary sphincterotomy was performed. - The biliary tree was swept. - One stent was removed from the biliary tree. - One covered metal stent was placed into the common bile duct. Recommendations : My findings are described in the full procedure note, which is enclosed. If I can be of further assistance, please feel free to contact me at . Sincerely, Ld Chacon DO 11/13/2024 9:09:24 AM This report has been signed electronically.
[2024-11-13] MEDS: Lactated Ringers 1,000 ML 999 ML IV ×2 (09:23→09:59)
[2024-11-13] MEDS: Lorazepam 2 MG/ML WCH Syringe 0.5 MG IV (09:25)
--- NOTE | 2024-11-13 11:02 | PCM.POSTANE2 ---
Anesthesia Postop Eval I Sum Postop Eval Completion status Anesthesia document: Postop Eval 1 completed: Yes Anesthesia Postop Eval I Summary Anesthesia Postop Eval I Summary: Anesthesia Postop Eval I: Assessment Summary Airway patent Yes 11/13/24 09:04 [email or web address] Spontaneous unlabored Yes 11/13/24 09:04 [email or web address] respirations Mental status Awake 11/13/24 09:04 [email or web address] nausea No 11/13/24 09:04 [email or web address] Vomiting No 11/13/24 09:04 [email or web address] Anesthesia Postop Eval I: Fluid Summary Crystalloid volume administer 900 11/13/24 09:04 [email or web address] (ml) Colloids volume administered ( ml) Blood Product volume administered (ml) Total IV fluid infused 900 11/13/24 09:04 [email or web address] Anesthesia Postop Eval I: Summary Notes Anesthesia Complication No 11/13/24 09:04 [email or web address] Anesthesia Complication Comment: Post-operative progress note Anesthesia: Postop Eval II Evaluation Mental status: Awake Pain Level: 0 nausea: No Vomiting: No
[2024-11-13 11:04] LABS: Amylase 36 U/L (28-100); Lipase 21 U/L (13-75)
== END 2024-11-13 11:52 | disposition home or self-care (01) ==
LOC: EN 06:03 → AC 06:04
PROVIDERS: Student in an Organized Health Care Education/Training Program; PCP Obstetrics & Gynecology Gynecology; Referring Provider Obstetrics & Gynecology Gynecology; Visit Provider Internal Medicine Gastroenterology
PROC: (CPT 43260; principal; 2024-11-13 07:10)
DX: K83.8 Other specified diseases of biliary tract (principal); Z90.49 Acquired absence of other specified parts of digestive tract; K91.89 Other postprocedural complications and disorders of digestive system; K80.51 Calculus of bile duct without cholangitis or cholecystitis with obstruction
CPT/HCPCS: 43264; 43276; 74330; 76000; 81025; 82150; 83690; 88108; 88305; 88313; 93005; J2405

== ENCOUNTER 2024-11-14 16:58 | Inpatient (IN) | payer OTHER, SELFPAY ==
--- NOTE | 2024-11-14 17:00 | HP.PCM.HOS_ITS ---
HPI - General General Date of Admission: 11/14/24 Date of Service: 11/14/24 Chief Complaint: Abdominal pain HPI Narrative SUSANNA CROWLEY, is a 24 F who presented to the emergency department at [facility] on 11/14/2024 complaining of abdominal pain in the epigastrium. Patient underwent a subtotal cholecystectomy on 10/21/2024 and then was seen in the outpatient setting by gastroenterology on 11/13/2024 at which time an ERCP was performed and a bile leak was found along with choledocholithiasis with a moderately dilated biliary system. A sphincterotomy was performed and complete removal of the stone was performed via sphincterotomy and balloon extraction. One stent was removed from the biliary tree and a covered metal stent was placed in the common bile duct. Patient reported she did well postprocedure but then developed abdominal pain with 3 bouts of nausea vomiting last evening. No vomiting today but still having pretty significant abdominal pain most notably in the epigastrium. Given the pain and nausea and vomiting she presented to outside hospital ([facility]) and was transferred here as all of her care has been provided at [facility] by general surgery and gastroenterology. Vital signs on presentation outside emergency department showed a temperature of 98.8, blood pressure was 109/50, heart rate was 119, respiratory rate was 22 and pulse ox was 98% on room air. Vital signs on arrival here showed temperature of 99.7, heart rate 103, blood pressure 109/73, respiratory of 18 and pulse ox of 90% on room air. She had a mild leukocytosis and anemia. Her lactic acid was mildly elevated but on repeat had improved. LFTs were elevated slightly but bilirubin was normal. CT of the abdomen pelvis did not show any abscesses or otherwise. She was given IV fluids, antibiotics, and pain medication along with antiemetics and transferred here for further care. [facility] Medical History Wears glasses Non-smoker Bile leak Biliary colic Home Medications ?Medication ?Instructions ?Recorded ?Last Taken ?Type NK 11/12/24 Unknown History Allergy/AdvReac Type Severity Reaction Status Date / Time No Known Allergies Allergy Verified 11/13/24 06:45 Family History Mother No problems noted. Father No problems noted. Surgical History History of ERCP Hx of cholecystectomy Hx of appendectomy Social History household members: spouse, children and other details: 2 older children at home, 1 miscarriage, 1 09/24/24. Smoking Status: Never smoker alcohol intake: never substance use type: does not use ROS Constitutional Constitutional: Reports chills and malaise; Denies anorexia, change in weight, fatigue, fever(s), night sweats, weakness or other Eyes Eyes: Denies blurry vision, change in eye color, change in vision, discharge from eye(s), double vision, erythema, eye pain, loss of vision or other ENT HEENT: Denies abnormal hearing, dysphagia, ear pain, epistaxis, headache(s), hearing loss, nasal congestion, nasal discharge, post nasal drip, sinus pressure, sore throat or other Cardiovascular Cardiovascular: Denies chest pain, claudication, dyspnea on exertion, edema, lightheadedness, orthopnea, palpitations, paroxysmal nocturnal dyspnea, rapid heart rate, syncope or other Respiratory/Chest Respiratory/Chest: Denies cough, dyspnea, excessive phlegm production, hemoptysis, productive cough, shortness of breath at rest, shortness of breath with exertion, wheezing or other Gastrointestinal Gastrointestinal: Reports abdominal pain, dyspepsia, nausea and vomiting; Denies coffee ground emesis, constipation, diarrhea, hematemesis, hematochezia, loose stools, melena or other Genitourinary Genitourinary: Denies burning urination, difficulty urinating, dysuria, hematuria, nocturia, urinary frequency, urinary hesitancy, urinary incontinence, urinary urgency or other Musculoskeletal Musculoskeletal: Reports back pain; Denies arthralgias, joint pain, joint stiffness, joint swelling, myalgias, neck pain or other Neurologic Neurologic: Denies abnormal gait, abnormal speech, confusion, disequilibrium, dizziness, focal weakness, headache(s), numbness, paresthesias, seizure-like activity, seizures, syncope, tingling, tremor(s) or other Psychiatric Psychiatric: Denies anxiety, depression, homicidal ideation, suicidal ideation or other Endocrine Endocrinology: Denies change in body appearance, cold intolerance, excessive sweating, heat intolerance, polydipsia, polyuria or other Hematologic/Lymphatic Hematologic/Lymphatic: Denies anemia, easy bleeding, easy bruising, lymphadenopathy or other Allergic/Immunologic Allergic/Immunologic: Denies rhinitis, hives, eczemia, asthma or other Physical Exam Const alert, oriented x3, no apparent distress and well nourished; Negative for average body habitus Constitutional Narrative: Obese, very pleasant, young, white [place] female, sitting up in bed, currently appears comfortable, does not look toxic, at bedside General Appearance: cooperative HEENT normocephalic, head/scalp atraumatic and hearing grossly normal bilaterally Resp normal respiratory effort, no retractions, no use of accessory muscles and clear to auscultation bilaterally Auscultation: Negative for rales, rhonchi or wheezes Cardio regular rhythm, S1 normal heart sound, S2 normal heart sound, no murmurs, no rub, no gallops and no clicks Cardio Narrative: Mild tachycardia GI normal to inspection, nondistended, normoactive bowel sounds and soft to palpation GI Narrative: Tenderness in the epigastrium, John-Amador drain in place with significant amount of turbid looking fluid in the bulb Extremity no clubbing, cyanosis or edema Extremity Narrative: Pedal and radial pulses are 2+ Neuro oriented x3, moves all extremities and no focal motor deficits Speech: speech normal Psych affect normal Psych Narrative: Very pleasant, interacts appropriately Assessment & Plan Assessment/Plan (1) Bile leak: (2) Abdominal pain: (3) Nausea & vomiting: (4) Lactic acidosis: (5) Hypomagnesemia: (6) Transaminitis: (7) Leukocytosis: (8) Anemia: PLAN: Plan Abdominal pain/nausea and vomiting - Patient with recent cholecystectomy on 10/21/2024 at which time biliary stent was placed - Patient followed up with GI on 11/03/2024 for discussion about previous stent placement and patient was recommended for ERCP with replacement stent of a larger size - Performed 11/13/2024 - After discharge patient developed abdominal pain, nausea, and vomiting so presented to [facility] and was transferred here - Patient reports low-grade fever so we will start Zosyn and culture fluid from biliary drain - IV fluids at 125 cc/h x 3 L - As needed antiemetics - As needed morphine for pain - Trying to avoid Toradol as she is breast-feeding at this time but may need to use - Consult GI-Case discussed with Dr. Chacon - Will hold off on general surgery consultation for now until Dr. Chacon evaluates the patient Leukocytosis - Mild - Zosyn as above - Will check blood cultures Mild transaminitis - Bilirubin is normal - Suspect related to the above - Lipase is normal so no post ERCP pancreatitis - Repeat lab in a.m. Hypomagnesemia - Will repeat mag level as I am unclear if this was replaced at outside hospital - If still low will replace - Repeat in a.m. Lactic acidosis - Suspect related to the above - Is trending down - IV fluids as ordered - Blood pressure stable Mild anemia - Hemoglobin is 11.8 - Likely related to recent - Repeat lab in a.m. to monitor for stability History of biliary leak - Question if she develop has other leak given the amount of drainage she is having out of her John-Amador drain - Will culture drain fluid - Antibiotics as noted above - Management per GI and possibly general surgery depending on recommendations fr om GI Recently - [facility] has been contacted to supply pumping supplies for patient as she is breast-feeding DVT prophylaxis Lovenox 40 subcu daily CODE STATUS - Full code Charges/Coding Visit Charges Inpatient E&M: 35111 Init Hosp L2
--- OUTSIDE RECORDS SUMMARY | 2024-11-14 17:04 | XMS RPT_ITS | CCD ---
Author Organization [facility] Providers [employer] Consultant Name Role Phone DECLINED, Primary Care Unavailable DMITRY DO~[phone], DMITRY Yo Admitting Unavailable DMITRY DO~[phone], DMITRY XIONG J Attending Unavailable DECLINED, Consulting Unavailable DECLINED, Consulting Unavailable AMANDA LOPEZ, TONY Phan Consulting Unavailable AMANDA LOPEZ, TONY Phan Consulting Unavailable JANIYA WEAVING INSTRUCTOR, MARYANN Marcos Consulting Unavail able JANIYA WEAVING INSTRUCTOR, MARYANN E Consulting Unavail able Dr. Florentin Zamudio DO Emergency Provider FloriDr. Heather mcgrath DO Primary Care Provider Oswaldo PINEDO, Dr. Jaffe Attending Provider Dr. Florentin Zamudio DO Emergency Provider FloriDr. Heather mcgrath DO Primary Care Provider Dr. Ld Chacon DO Admit Provider Dr. Ld Chacon DO Other Provider Dr. Chandan Mayo MD Other Provider [phone] Jamil LOPEZ, Dr. Gillis Attending Provider [phone] Ld PINEDO Attending Provider Dr. Chandan Mayo MD Attending Provider Jamil LOPEZ, Dr. Gillis Other Provider Uptain CNM, Crystal K Unavailable IRINA ZAMORA MD Referring Unavailable ESTELLE QUINTANILLA [...] Dennis LOPEZ, Dr. Aquilino Strickland Other Provider Esther OLEARY, Wendy Attending Provider Tristan LOPEZ, Dr. Bui Attending Provider Dennis LOPEZ, Dr. Aquilino Strickland Referring Provider Esther OLEARY, Wendy Attending Provider Esther OLEARY, Wendy Attending Provider Aquilino Collins Admitting Unavailable WanAquilino rios Attending Unavailable Flori, Heather N Primary Care Unavailable Aquilino Collins Attending Unavailable Flori, Heather N Primary Care Unavailable Flori, Heather N Referring Unavailable WanekAquilino Attending Unavailable Flori, Heather N Referring Unavailable Flori, Heather N Primary Care Unavailable Flori, Heather N Referring Unavailable Mikayla Mancini Attending Unavailable Flori, Heather N Primary Care Unavailable Radha Romano Attending Unavailable Flori, Heather N Primary Care Unavailable Friend, Ld Consulting Unavailable Radha Romano Referring Unavailable Friend, Ld Attending Unavailable Flori, Heather N Primary Care Unavailable Friend, Ld Consulting Unavailable Chandan Mayo Attending Unavailable Chandan Mayo Consulting Unavailable Friend, Ld Admitting Unavailable Carlin Negron Referring Unavailable Carlin Negron Consulting Unavailable WanekAquilino A Consulting Unavailable Wanek, Aquilino A Admitting Unavailable Wanek, Aquilino A Attending Unavailable Flori, Heather N Primary Care Unavailable Wendy Matos Attending Unavailable Carlin Negron Attending Unavailable Wanek, Aquilino A Referring Unavailable Flori, Heather N Primary Care Unavailable Hao Hudson Attending Unavailable Flori, Heather N Referring Unavailable Friend, Ld Consulting Unavailable Friend, Ld Attending Unavailable Flori, Heather N Primary Care Unavailable Wanek, Aquilino A Attending Unavailable Flori, Heather N Referring Unavailable Flori, Heather N Primary Care Unavailable Flori, Heather N Referring Unavailable Mikayla Mancini Attending Unavailable Flori, Heather N Primary Care Unavailable Flori, Heather N Referring Unavailable Friend, Ld Attending Unavailable Flori, Heather N Primary Care Unavailable Chandan Mayo Consulting Unavailable Friend, Ld Admitting Unavailable Flori, Heather N Primary Care Unavailable Carlin Negron Attending Unavailable Friend, Ld Consulting Unavailable Wanek, Aquilino Strickland Attending Unavailable Wanek, Aquilino A Referring Unavailable Flori, Heather N Primary Care Unavailable Medications Current Medications Medication Drug Class(es) Dates Sig (Normalized) Sig (Original) [place] (Nk) (3 sources) Start: 11-12-2024 [place] (Nk) A ctive November 12, 2024 12:00am Start: 10-20-2024 [place] (Nk) A ctive October 20, 2024 12:00am Completed/Discontinued Medications Medication Drug Class(es) Dates Sig (Normalized) Sig (Original) acetaminophen 325 mg / oxyCODONE hydrochloride 5 mg oral tablet (6 sources) Opioid Agonist Start: 10-23-2024 End: 10-28-2024 Oxycodone-Acetamin ophen (Percocet) 5-325 mg tablet Discontinued 1 {tbl} PO Q8H as needed for pain 7 October 23, 2024October 28, 2024 1:11pm amoxicillin 500 mg / clavulanate 125 mg oral tablet (12 sources) Penicillin-class Antibacterial Start: 10-29-2024 End: 11-08-2024 Amoxicillin-Pot Clavulanate (Augmentin) 500-125 mg tablet Discontinued 1 {tbl} PO TWICE A DAY 20 October 29, 2024 12:00am November 07, 2024 12:00am November 08, 2024 12:11am Start: 09-26-2024 End: 10-20-2024 Amoxicillin-Pot Clavulanate 875-125 mg tablet Discontinued 1 {tbl} PO TWICE A DAY 14 September 26, 2024 12:00am October 20, 2024 5:57pm docusate sodium 50 mg / sennosides, mcc 8.6 mg oral tablet (8 sources) Start: 09-26-2024 End: 10-09-2024 Sennosides-Docusate Sodium (Stimulant Laxative Plus) 8.6-50 mg Tablet Discontinued 2 {tbl} PO TWICE DAILY NEEDED as needed for Constipation September 26, 2024 12:00am October 09, 2024 8:51am Vit,Mujl25-Bdjy-Tbmxw (Prenatabs Fa) 29-1 mg Tablet (8 sources) Start: 09-26-2024 End: 10-09-2024 Vit,Nngp09-Bwts-Tja ic (Prenatabs Fa) 29-1 mg Tablet Discontinued 1 {tbl} PO DAILY@1200 30 September 26, 2024 12:00am October 09, 2024 8:51am Start: 09-26-2024 Vit,C xfa17-Wrnk-Moewp (Prenatabs Fa) 29-1 mg Tablet Active 1 {tbl} PO DAILY@1200 30 30 September 26, 2024 12:00am Problems Active Problems Problem Classification Problem Date Documented Date Episodic/Chronic Abdominal pain (16 sources) Abdominal pain; Translations: [Unspecified abdominal pain] Onset: 11-09-2024 10-20-2024 Episodic Biliary tract disease (17 sources) Leakage of bile; Translations: [Disease of biliary tract, unspecified] Onset: 11-13-2024 10-28-2024 Chronic Biliary tract disease (20 sources) Common bile duct calculus; Translations: [Calculus of bile duct without cholangitis or cholecystitis without obstruction] Onset: 10-02-2024 09-25-2024 Episodic Fever of unknown origin (14 sources) Fever; Translations: [Fever, unspecified] 10-20-2024 Episodic Hemorrhage during ; abruptio placenta; placenta previa (2 sources) Hemorrhage in early , unspecified; Translations: [HEMORRHAGE EARLY UNS] Onset: 08-15-2023 Episodic Other complications of (1 source) Liver and biliary tract disorders in , third trimester; Translations: [Liver and biliary tract disorders in , third trimester] Onset: 10-02-2024 Episodic Other and delivery including normal (18 sources) Vaginal delivery; Translations: [Encounter for full-term uncomplicated delivery] Onset: 10-02-2024 09-25-2024 Episodic Residual codes; unclassified (20 sources) Past history of procedure; Translations: [Other specified postprocedural states] 10-09-2024 Episodic Residual codes; unclassified (1 source) Acquired absence of other specified parts of digestive tract; Translations: [Acquired absence of other specified parts of digestive tract] Onset: 11-13-2024 Episodic Residual codes; unclassified (1 source) Other specified postprocedural states; Translations: [Other specified postprocedural states] Onset: 11-09-2024 Episodic Spontaneous (1 source) Incomplete spontaneous without complication; Translations: [INCOMPL SPONT AB W/O COMPLICATION] Onset: 08-19-2023 Episodic Unclassified (8 sources) As scheduled Unclassified (6 sources) Call the office on Thursday 10/26 to schedule an appt to have the drain removed. Past or Other Problems Problem Classification Problem Date Documented Da te Episodic/Chronic NEGATED: Highlighted row has been ruled out!Unclassified (2 sources) No Problem Information Available Results Test Name Value Interpretation Reference Range Facility Amylaseon 11-13-2024 CRESENCIO 36 U/L Normal 28-100 [facility] Comment on above: Performed By: #### L 501.2450, L501.2400 ####[facility] [address] [place], [address] ERCP Biliary/Pancreason 06-0 ERCP Biliary/Pancreas [facility] Imaging Services [address] [place], [place] [id number] ERCP Biliary/Pancreas MR#: [id number] Acct: [id number] Name: LUCY CROWLEY V Rep #: [id number] : 2000 F 24 From: Estelle Klein PCP: Dr. Heather Ruby DO Status: [place] [facility] [place]: ERCP Biliary/Pancreas Date of Exam: 11/13/24 Exam# [id number] Ordering Dr: Ld Chacon DO PROCEDURE: ERCP BILIARY/PANCREAS; O.R. FLUORO FOR C-ARM 11/13/2024 REASON FOR EXAM: ERCP TECHNIQUE: Intraoperative fluoroscopy was performed for ERCP. 11 fluoroscopic images were also obtained. RAD/ERCP Biliary/Pancreas IMPRESSION: Intraoperative fluoroscopy was performed for ERCP. 11 fluoroscopic images were also obtained. Reading Location: [address] CC: Dr. Heather Ruby DO; Ld Chacon DO Bobbin Coil Winder: Signed Normal [facility] ERCP Reporton 11-13-2024 ERCP Report [facility] Medical Records Department [address] [place] [address] ERCP Report MR#: [id number] Acct: [id number] Name: LUCY CROWLEY V Rep #: [id number] : 2000 24 From: Ld Chacon DO PCP: Dr. Heather Ruby DO Status:[place] [facility] Patient Name: Lucy Crowley Procedure Date: 11/13/2024 7:58 AM Date of : 2000 Age: 24 Procedure: ERCP Indications: Bile leak Providers: Ld Chacon DO Referring MD: Heather Ruby Do Medicines: Monitored Anesthesia Care Patient Profile: This is a 24 year old female. Refer to note in patient chart for documentation of history and physical. Patient has symptoms of acute right upper quadrant abdominal pain. Complications: No immediate complications. Procedure: Pre-Anesthesia Assessment: [...] patient has taken no anticoagulant or antiplatelet agents. ASA Grade Assessment: II - A patient [...] used to inject contrast into the bile duct. The ERCP was accomplished without difficulty. The patient tolerated the procedure well. Scope In: 8:30:47 AM Scope Out: 8:46:26 AM Total Procedure Duration Time 0 hours 15 minutes 39 seconds Findings: The real estate financial analyst film was normal. A biliary stent was visible on the real estate financial analyst film. The bile duct was deeply cannulated with the short-nosed traction sphincterotome. Contrast was injected. I personally interpreted the bile duct images. There was brisk flow of contrast through the ducts. Image quality was excellent. Contrast extended to the entire biliary tree. Extravasation of contrast originating from the cystic duct was observed. The lower third of the main bile duct contained one stone, which was 5 mm in diameter. The entire opacified area was moderately dilated, with a stone causing an obstruction. The largest diameter was 10 mm. A cholecystectomy had been performed. Placement of a long 0.025 inch Jagwire into the biliary tree was attempted. This passed successfully. A 5 mm biliary sphincterotomy was made with a traction (standard) sphincterotome using ERBE electrocautery. There was no post-sphincterotomy bleeding. The biliary tree was swept with a 12 mm balloon starting at the bifurcation, left intrahepatic duct(s) and right intrahepatic duct(s). Sludge was swept from the duct. All stones were removed. One stent was removed from the biliary tree using a snare and sent for cytology. One 10 mm by 8 cm covered metal stent was placed 5 cm into the common bile duct. Bile flowed through the stent. The stent was in good position. Impression: - The biliary system were moderately dilated, with a stone causing an obstruction. - A bile leak was found. - The patient has had a cholecystectomy. - Choledocholithiasis was found. Complete removal was accomplished by biliary sphincterotomy and balloon extraction. - A biliary sphincterotomy was performed. - The biliary tree was swept. - One stent was removed from the biliary tree. - One covered metal stent was placed into the common bile duct. Procedure Code(s): --- Professional --- 40273, Endoscopic retrograde cholangiopancreatography (ERCP); with removal and exchange of stent(s), biliary or pancreatic duct, including pre- and post-dilation and guide wire passage, when performed, including sphincterotomy, whe (more content not included)... Normal [facility] Lipaseon 11-13-2024 Lipase [Catalytic activity/Vol] 21 U/L Normal 13-75 [facility] Comment on above: Result Comment: Nicholas sood note: LIPASE revised reference range effective 22. New Lipase methodology. Expected to produce lower values than the previous assay method. NEW Reference Range: 13 - 75 U/L Performed By: #### L 501.2450, L501.2400 ####[facility] [address] [place], [address] Lipase measurementOrdered By : Ld Chacon on 11-13-2024 Lipase [Catalytic activity/Vol] 21 U/L 13-75 [facility] Comment on above: Please note:LIPASE r evised reference range effective 22. New Lipase methodology. Expected to produce lower values than the previous assay method. NEW Reference Range: 13 - 75 U/L MR/POSTOP.ANEon 11-13-2024 MR/POSTOP.[facility] Medical Records Department [address] [place] [address] Anesthesia Postop Eval I 11/13/24 0903 MR#: [id number] Acct: [id number] Name: LUCY CROWLEY V Rep #: [id number] : 2000 From: Marcial Marie PCP: Dr. Heather Ruby, DO Status:REG SDC Y Race: C Location: [place] [address] Anesthesia: Postop Eval I Current Vital Signs Temperature: 97 F Pulse Rate: 91 Blood Pressure: 109/70 Respiratory Rate: 18 Pulse Ox: 99 Oxygen Delivery Method: Room Air Assessment Airway patent: Yes Spontaneous unlabored respirations: Yes Mental status: Awake nausea: No Vomiting: No Anesthesia Complication: No Fluid Hydration Crystalloid volume administer (ml): 900 Total IV fluid infused: 900 Progress Note Anesthesia document: Postop Eval 1 completed: Yes 11/13/24903 Date Marcial Dean Signature: Date CC: Signed Normal [facility]/[id number] [facility]2024 [facility] Medical Records Department [address] [place] [address] Anesthesia Postop Eval II 11/13/24 1102 MR#: [id number] Acct: [id number] Name: LUCY CROWLEY V Rep #: [id number] : 2000 From: Saran Fragoso MD PCP: Dr. Heather Ruby, DO Status:REG SD Y Race: C Location: [place] [address] Anesthesia Postop Eval I Sum Postop Eval Completion status Anesthesia document: Postop Eval 1 completed: Yes Anesthesia Postop Eval I Summary Anesthesia Postop Eval I Summary: Anesthesia Postop Eval I: Assessment Summary Airway patent Yes 11/13/24 09:04 [email or web address] Spontaneous unlabored Yes 11/13/24 09:04 [email or web address] respirations Mental status Awake 11/13/24 09:04 [email or web address] nausea No 11/13/24 09:04 [email or web address] Vomiting No 11/13/24 09:04 [email or web address] Anesthesia Postop Eval I: Fluid Summary Crystalloid volume administer 900 11/13/24 09:04 [email or web address] (ml) Colloids volume administered ( ml) Blood Product volume administered (ml) Total IV fluid infused 900 11/13/24 09:04 [email or web address] Anesthesia Postop Eval I: Summary Notes Anesthesia Complication No 11/13/24 09:04 [email or web address] Anesthesia Complication Comment: Post-operative progress note Anesthesia: Postop Eval II Evaluation Mental status: Awake Pain Level: 0 nausea: No Vomiting: No 11/13/24 1102 Date Saran Dean Signature: Date CC: Signed Normal [facility] O.R. Fluoro for C-Francesco 06- O.R. Fluoro for C-Arm [facility] Imaging Services [address] [place] [id number] O.R. Fluoro for C-Arm MR#: [id number] Acct: [id number] Name: LUCY CROWLEY V Rep #: [id number] : 2000 F 24 From: Estelle Klein PCP: Dr. Heather Ruby DO Status: [facility] Study: O.R. Fluoro for C-Arm Date of Exam: 11/13/24 Exam# [id number] Ordering Dr: Ld Chacon DO PROCEDURE: ERCP BILIARY/PANCREAS; O.R. FLUORO FOR C-ARM 11/13/2024 REASON FOR EXAM: ERCP TECHNIQUE: Intraoperative fluoroscopy was performed for ERCP. 11 fluoroscopic images were also obtained. RAD/O.R. Fluoro for C-Arm IMPRESSION: Intraoperative fluoroscopy was performed for ERCP. 11 fluoroscopic images were also obtained. Reading Location: [address] CC: Dr. Heather Ruby DO; Ld Chacon DO Bobbin Coil Winder: Signed Normal [facility] ,Urineon 11-13-2024 Beta HCG ( test) Ql (U) Negative Normal [facility] Comment on above: Result Comment: Very dilute urine specimens, as indicated by a low specific gravity, may not contain unit support representative levels of hCG. If is still suspected, a first morning urine specimen should be collected 48 hours later and tested. Performed By: #### L 500.4050, L100.0100, L501.2450 #### [facility] Laboratory [address] [place], [address] Serum or plasma amylase jeimy urement (enzymatic activity/volume)Ordered By: Ld hCacon on 11-13-2024 Amylase [Catalytic activity/Vol] 36 U/L 28-100 [facility] Urine testOrdered By: Kenneth Buitrago on 11-13-2024 HCG ( test) Ql (U) Negative [facility] Comment on above: Very dilute urine sp ecimens, as indicated by a low specificgravity, may not contain unit support representative levels of hCG. If is still suspected, a first morning urinespecimen should be collected 48 hours later and tested. Surgery Visit Reporton 11-12 Surgery Visit Report [facility] [address] [place] [address] OFFICE VISIT Date of Service: 11/12/24 MR#: [id number] Acct: [id number] Name: LUCY CROWLEY V Rep #: [id number] : 2000 Provider: Dr. Aquilino rios MD Age/Sex: 24/F Location: [facility] Status: Signed Intake Vital Signs 10/20/24 21:23 [...] Hx of cholecystectomy Z90.49 Bile leak K83.9 [facility] Medical History (Updated 11/11/24 @ 12:39 by [...] concerns were addressed. 11/12/24 1037 Date Aquilino Dean Signature: Date (if applicable) CC: Dr. Heather Ruby, Normal [facility] Gastroenterology Visit Repor ton 11-03-2024 Gastroenterology Visit Report [facility] Gastroenterology [address] [facility] [place] [address] OFFICE VISIT Date of Service: 11/03/24 MR#: [id number] Acct: [id number] Name: LUCY CROWLEY V Rep #: [id number] : 2000 Provider: CARMEN Castillo Age/Sex: 24/F Location: [facility] Status: Signed Intake Vital Signs 10/20/24 21:23 Height 5 ft 6 in Intake Visit Reasons: DISCUSS BIGGER STENTS -PER DR COLILNS Chief Complaint: s/p cholecystectomy Allergies No Known [...] HPI HPI Chief Complaint: s/p cholecystectomy Details: LUCY CROWLEY, is a 24 F who presents to the office today for f/u. [facility] admission 4.-09.26.24 for biliary colic with elevated bili (4.8), AST (350), ALT (371) and ALP (200). US showing filing defects in gallbladder and CBD. She underwent ERCP with stone removal and CBD and pancreatic stent placement. Surgical consultation but pt decided to have her surgery at [facility]. OV 5.2.25 Pt here today for f/u after hospital admission. She is feeling well after having the stent and being on antibiotics. SHe has also been eating a low fat diet. She was seen by her surgeon at [facility] for cholecystectomy however he requested the CBD stent be removed before her performs surgical operation. She was scheduled for ERCP with stent pull. [facility] ED 5.. with fever. Work up revealing cholecystitis. Underwent [...] for further evaluation [facility] OV 5..25 OV 5..25 Pt here today to discuss upsizing her [...] here today for f/u. Pt established with [facility] while in admitted to the hospital 09.25.24-09.26.24 with cholecystitis and choledocholithiasis, She underwent ERCP with stone removal and stent placement. Pt decided to see her surgeon at [facility] for cholecystectomy however he advised she have the stent removed before proceeding with cholecystectomy. She was scheduled for stent pull however she presented to the ED with fever and US revealing cholecystitis. She underwent subtotal cholecystectomy with AYSE drain placement on 10.21.24. She was seen for f/u with [facility] o (more content not included)... Normal [facility] Surgery Visit Reporton 11-03 Surgery Visit Report [facility] [address] [place] [address] OFFICE VISIT Date of Service: 11/03/24 MR#: [id number] Acct: [id number] Name: LUCY CROWLEY V Rep #: [id number] : 2000 Provider: Dr. Aquilino rios MD Age/Sex: 24/F Location: [facility] Status: Signed Intake Vital Signs 10/20/24 21:23 [...] Hx of cholecystectomy Z90.49 Bile leak K83.9 [facility] Medical History Bile leak Biliary colic [...] Cosigner Signature: Date (if applicable) CC: Normal [facility] Hepatobilliary Imagingon Hepatobilliary Imaging [facility] Imaging Services [address] [place] [address] Hepatobilliary Imaging MR#: [id number] Acct: [id number] Name: LUCY CROWLEY V Rep #: [id number] : 2000 F 24 From: Kaitlin Matrin nd, MD PCP: Dr. Heather Ruby, Status: REG CLI Study: Hepatobilliary Imaging Date of Exam: 10/28/24 Exam# [id number] Ordering Dr: Aquilino Collins MD PROCEDURE: HEPATOBILIARY [...] be obtained for further evaluation. Reading Location: [facility] CC: Dr. Heather Ruby DO; Dr. Aquilino Collins MD Bobbin Coil Winder: Signed Normal [facility] Surgery Visit Reporton 10-28 Surgery Visit Report [facility] [address] [place] [address] OFFICE VISIT Date of Service: 10/28/24 MR#: [id number] Acct: [id number] Name: LUCY CROWLEY V Rep #: [id number] : 2000 Provider: Dr. Aquilino rios MD Age/Sex: 24/F Location: [facility] Status: Signed Intake Vital Signs 10/20/24 21:23 Height 5 ft 6 in Intake Visit Reasons: DRAIN REMOVAL DOS 10/21 Chief Complaint: f/u partial cholecystectomy and drain removal Slasher Operator Required: No Is patient in pain?: No [...] Global Post Op Diagnoses Bile leak K83.9 [facility] Medical History (Updated 10/29/24 @ 00:00 by [...] to this plan. 10/29/24 1316 Date Aquilino Shabazzigncleo Signature: Date (if applicable) CC: Dr. Heather Ruby, DO Normal [facility] Urine Cultureon 10-25-2024 URC #2 Below infection l evel. Streptococcus gallolyticus pas [place] Count 11,000-25,000 Mixed Gram Positive Organisms Mixed Gram Positive Organisms MIXC Mixed contaminants. Submit a new specimen if indicated. Streptococcus gallolyticus pas: REACTION Ampicillin Islt RUSSELL <=0.25 Penicillin G Islt RUSSELL 0.12 S Cefotaxime Islt RUSSELL <=0.12 cefTRIAXone Islt RUSSELL <=0.12 S Linezolid Islt RUSSELL <=2 S Vancomycin Islt RUSSELL 0.25 S Normal [facility] Comment on above: Performed By: #### M 100.4462 ####[facility] [address] [place], [place], [id number] Absolute lymphocyte countOrd ered By: Aquilino Collins on 10-23-2024 Lymphocytes Auto (Unsp spec) [#/Vol] 3.48 10*3/uL 0.83-4.51 [facility] Absolute neutrophil countOrd ered By: Aquilino Collins on 10-23-2024 Neutrophils (Bld) [#/Vol] 6.6 10*3/uL 2.0-7.7 [facility] Anion gap in Serum or Plasma Ordered By: Wendy Santana on 10-23-2024 Anion gap [Moles/Vol] 11 mmol/L 5-15 [facility] Automated lymphocyte count a s percentage of total leukocytesOrdered By: Aquilino Collins on 10-23-2024 Lymphocytes/100 WBC Auto (Unsp spec) 30.5 % 19-41 [facility] BUN/creatinine ratioOrdered By: Wendy Santana on 10-23-2024 Urea nitrogen/Creatinine [Mass ratio] 17.3 mg/mg 10-20 [facility] Basophil percentageOrdered B y: Aquilino Collins on 10-23-2024 Basophils/100 WBC (Bld) 0.4 % 0-1 [facility] Bilirubin, totalOrdered By: Wendy Santana on 10-23-2024 Bilirubin [Mass/Vol] 0.21 mg/dL 0.00-1.30 [facility] CBC W/Diff, Automatedon 10-08 Absolute Lymph 3.48 X10 3/uL Normal 0.83-4.51 [facility] Comment on above: Performed By: #### L 100.0100 ####[facility] [address] [place], [address] Absolute Neut 6.6 X10 3/uL Normal 2.0-7.7 [facility] Comment on above: Performed By: #### L 100.0100 ####[facility] [address] [place], [address] Basophils/100 WBC (Bld) 0.4 % Normal 0-1 [facility] Comment on above: Performed By: #### L 100.0100 ####[facility] [address] [place], [address] Eosinophils/100 WBC (Bld) 5.8 % High 0-5 [facility] Comment on above: Performed By: #### L 100.0100 ####[facility] [address] [place], [address] Erythrocyte distribution width (RBC) [Ratio] 11.9 % Normal 11.6-14.6 [facility] Comment on above: Performed By: #### L 100.0100 ####[facility] [address] [place], [address] Hematocrit (Bld) [Volume fraction] 32.9 % Low 37-47 [facility] Comment on above: Performed By: #### L 100.0100 ####[facility] [address] [place], [address] Hemoglobin (Bld) [Mass/Vol] 11.1 g/dL Low 12.0-15.0 [facility] Comment on above: Performed By: #### L 100.0100 ####[facility] [address] [place], [address] IG% 1.000 High 0.0-0.9 [facility] Comment on above: Result Comment: IG% - Immature Granulocytes (promyelocytes, myelocytes and metamyelocytes) > 1% indicates that a LEFT SHIFT is Present. Performed By: #### L 100.0100 ####[facility] [address] [place], [address] Lymphocytes/100 WBC (Bld) 30.5 % Normal 19-41 [facility] Comment on above: Performed By: #### L 100.0100 ####[facility] [address] [place], [address] MCH (RBC) [Entitic mass] 30.5 pg Normal 27.0-32.0 [facility] Comment on above: Performed By: #### L 100.0100 ####[facility] [address] [place], [address] MCHC (RBC) [Mass/Vol] 33.7 g/dL Normal 32-36 [facility] Comment on above: Performed By: #### L 100.0100 ####[facility] [address] [place], [address] MCV (RBC) [Entitic vol] 90.4 fL Normal 81-99 [facility] Comment on above: Performed By: #### L 100.0100 ####[facility] [address] [place], [address] Monocytes/100 WBC (Bld) 4.4 % Normal 0-[address] [facility] Comment on above: Performed By: #### L 100.0100 ####[facility] [address] [place], [address] Neutrophils/100 WBC (Bld) 57.9 % Normal 47-70 [facility] Comment on above: Performed By: #### L 100.0100 ####[facility] [address] [place], [address] Nucleated RBC (Bld) [#/Vol] 0 10*3/uL Normal 0-5 [facility] Comment on above: Performed By: #### L 100.0100 ####[facility] [address] [place], [address] Platelet mean volume (Bld) [Entitic vol] 9.9 fL Normal 6.2-12.0 [facility] Comment on above: Performed By: #### L 100.0100 ####[facility] [address] [place], [address] Platelets (Bld) [#/Vol] 271 10*3/uL Normal 150-450 [facility] Comment on above: Performed By: #### L 100.0100 ####[facility] [address] [place], [address] RBC (Bld) [#/Vol] 3.64 10*6/uL Low 4.2-5.4 [facility] Comment on above: Performed By: #### L 100.0100 ####[facility] [address] [place], [address] RDW SD 39.5 fl Normal 35.1-43.9 [facility] Comment on above: Performed By: #### L 100.0100 ####[facility] [address] [place], [address] WBC (Bld) [#/Vol] 11.4 10*3/uL High 4.4-11.0 [facility] Comment on above: Performed By: #### L 100.0100 ####[facility] [address] [place], [address] Carbon dioxide, total [Moles /volume] in Central venous bloodOrdered By: Wendy Santana on 10-23-2024 CO2 [Moles/Vol] 24.3 mmol/L 21.0-32.0 [facility] Chloride assayOrdered By: Zia Santana on 10-23-2024 Chloride [Moles/Vol] 107 mmol/L 98-108 [facility] Comprehensive Metabolic Prof ilon 10-23-2024 Albumin [Mass/Vol] 3.0 g/dL Low 3.5-5.0 [facility] Comment on above: Performed By: #### L 500.4050, L100.0100, L501.2450 #### [facility] Laboratory [address] [place], [address] Albumin/Globulin [Mass ratio] 1.0 {ratio} Normal 0.9-2.4 [facility] Comment on above: Performed By: #### L 500.4050, L100.0100, L501.2450 #### [facility] Laboratory [address] [place], [address] ALK PHOS 75 U/L Normal 35-104 [facility] Comment on above: Performed By: #### L 500.4050, L100.0100, L501.2450 #### [facility] Laboratory [address] [place], [address] ALT [Catalytic activity/Vol] 10 U/L Normal <=34 [facility] Comment on above: Performed By: #### L 500.4050, L100.0100, L501.2450 #### [facility] Laboratory [address] [place], [address] AST [Catalytic activity/Vol] 11 U/L Normal <=31 [facility] Comment on above: Performed By: #### L 500.4050, L100.0100, L501.2450 #### [facility] Laboratory [address] [place], [address] Bilirubin [Mass/Vol] 0.21 mg/dL Normal 0.00-1.30 [facility] Comment on above: Performed By: #### L 500.4050, L100.0100, L501.2450 #### [facility] Laboratory [address] [place], [address] BUN/CRE 17.3 RATIO Normal 10-20 [facility] Comment on above: Performed By: #### L 500.4050, L100.0100, L501.2450 #### [facility] Laboratory [address] [place], [address] Calcium [Mass/Vol] 8.6 mg/dL Normal 7.6-11.0 [facility] Comment on above: Performed By: #### L 500.4050, L100.0100, L501.2450 #### [facility] Laboratory [address] [place], [address] Chloride [Moles/Vol] 107 mmol/L Normal 98-108 [facility] Comment on above: Performed By: #### L 500.4050, L100.0100, L501.2450 #### [facility] Laboratory [address] [place], [address] CO2 [Moles/Vol] 24.3 mmol/L Normal 21.0-32.0 [facility] Comment on above: Performed By: #### L 500.4050, L100.0100, L501.2450 #### [facility] Laboratory [address] [place], [address] Creatinine [Mass/Vol] 0.76 mg/dL Normal 0.70-1.20 [facility] Comment on above: Performed By: #### L 500.4050, L100.0100, L501.2450 #### [facility] Laboratory [address] [place], [address] ECRCL 127.58 ml/min Normal 50-250 [facility] Comment on above: Performed By: #### L 500.4050, L100.0100, L501.2450 #### [facility] Laboratory [address] [place], [address] GAP 11 Normal 5-15 [facility] Comment on above: Performed By: #### L 500.4050, L100.0100, L501.2450 #### [facility] Laboratory [address] [place], [address] GFR/1.73 sq M.predicted among non-blacks MDRD (S/P/Bld) [Vol rate/Area] 111 mL/min/{1.73_m2} Normal >60 [facility] Comment on above: Result Comment: mL/m in/1.73m2 CKD-EPI Creatinine Equation (2020) Performed By: #### L 500.4050, L100.0100, L501.2450 #### [facility] Laboratory [address] [place], [address] Globulin (S) [Mass/Vol] 2.8 g/dL Normal 2.2-4.[address] [facility] Comment on above: Performed By: #### L 500.4050, L100.0100, L501.2450 #### [facility] Laboratory [address] [place], [address] Glucose [Mass/Vol] 83 mg/dL Normal 70-99 [facility] Comment on above: Performed By: #### L 500.4050, L100.0100, L501.2450 #### [facility] Laboratory [address] [place], [address] Potassium [Moles/Vol] 3.4 mmol/L Normal 3.3-5.1 [facility] Comment on above: Performed By: #### L 500.4050, L100.0100, L501.2450 #### [facility] Laboratory [address] [place], [address] Sodium [Moles/Vol] 142 mmol/L Normal 133-145 [facility] Comment on above: Performed By: #### L 500.4050, L100.0100, L501.2450 #### [facility] Laboratory [address] [place], [address] T PROT 5.8 g/dL Low 5.9-8.4 [facility] Comment on above: Performed By: #### L 500.4050, L100.0100, L501.2450 #### [facility] Laboratory [address] [place], [address] Urea nitrogen [Mass/Vol] 13 mg/dL Normal 4-19 [facility] Comment on above: Performed By: #### L 500.4050, L100.0100, L501.2450 #### [facility] Laboratory [address] [place], [address] Eosinophil percentageOrdered By: Aquilino Collins on 10-23-2024 Eosinophils/100 WBC (Bld) 5.8 % High 0-5 [facility] Erythrocyte distribution wid th ratioOrdered By: Aquilino Collins on 10-23-2024 Erythrocyte distribution width (RBC) [Ratio] 11.9 % 11.6-14.6 [facility] Erythrocyte distribution wid th standard deviationOrdered By: Aquilino Collins on 10-23-2024 Erythrocyte distribution width (RBC) [Ratio] 39.5 fl 35.1-43.9 [facility] Glomerular filtration rate ( GFR) estimation/1.73 sq m using serum, plasma, or whole bOrdered By: Wendy Santana on 10-23-2024 GFR/1.73 sq M.predicted among non-blacks MDRD (S/P/Bld) [Vol rate/Area] 111 mL/min/{1.73_m2} >60 [facility] Comment on above: mL/min/1.73m2 CKD-EP I Creatinine Equation (2020) Hematocrit Auto (Bld) [Volum e fraction]Ordered By: Aquilino Collins on 10-23-2024 Hematocrit (Bld) [Volume fraction] 32.9 % Low 37-47 [facility] Hemoglobin measurementOrdere d By: Aquilino Collins on 10-23-2024 Hemoglobin (Bld) [Mass/Vol] 11.1 g/dL Low 12.0-15.0 [facility] Immature granulocytes/100 WB C Auto (Bld)Ordered By: Aquilino Collins on 10-23-2024 Immature granulocytes/100 WBC (Bld) 1.000 % High 0.0-0.9 [facility] Comment on above: IG% - Immature Granu locytes (promyelocytes, myelocytes and metamyelocytes) > 1% indicates that a LEFT SHIFT is Present. Laboratory - Chemistry and C hemistry - challengeOrdered By: Wendy Santana on 10-23-2024 AST [Catalytic activity/Vol] 11 U/L <32 [facility] MCV (mean corpuscular volume ) determinationOrdered By: Aquilino Collins on 10-23-2024 MCV (RBC) [Entitic vol] 90.4 fL 81-99 [facility] Mean corpuscular hemoglobin (MCH) determinationOrdered By: Aquilino Collins on 10-23-2024 MCH (RBC) [Entitic mass] 30.5 pg 27.0-32.0 [facility] Mean corpuscular hemoglobin concentration (MCHC) determinationOrdered By: Aquilino Collins on 10-23-2024 MCHC (RBC) [Mass/Vol] 33.7 g/dL 32-36 [facility] Mean platelet volume determi nationOrdered By: Aquilino Collins on 10-23-2024 Platelet mean volume (Bld) [Entitic vol] 9.9 fL 6.2-12.0 [facility] Monocyte percentageOrdered B y: Aquilino Dennis on 10-23-2024 Monocytes/100 WBC (Bld) 4.4 % 0-10 [facility] Neutrophil percentageOrdered By: Aquilino Collins on 10-23-2024 Neutrophils/100 WBC (Bld) 57.9 % 47-70 [facility] Nucleated red blood cell per centageOrdered By: Aquilino Collins on 10-23-2024 Nucleated RBC/100 WBC (Bld) [Ratio] 0 % 0-5 [facility] Platelet countOrdered By: steven Dennis on 10-23-2024 Platelets (Bld) [#/Vol] 271 10*3/uL 150-450 [facility] Potassium measurement (mass/ volume)Ordered By: Wendy Santana on 10-23-2024 Potassium (Unsp spec) [Mass/Vol] 3.4 mmol/L 3.3-5.1 [facility] RBC Auto (Bld) [#/Vol]Ordere d By: Aquilino Collins on 10-23-2024 RBC (Bld) [#/Vol] 3.64 10*6/uL Low 4.2-5.4 [facility] Serum creatinine measurement (mass/volume)Ordered By: Wendy Santana on 10-23-2024 Creatinine [Mass/Vol] 0.76 mg/dL 0.70-1.20 [facility] Serum globulin measurementOr dered By: Wendy Santana on 10-23-2024 Globulin (S) [Mass/Vol] 2.8 g/dL 2.2-4.2 [facility] Serum glucose measurement (m ass/volume)Ordered By: Wendy Santana on 10-23-2024 Glucose [Mass/Vol] 83 mg/dL 70-99 [facility] Serum or plasma alanine allan otransferase (ALT) measurementOrdered By: Wendy Santana on 10-23-2024 ALT [Catalytic activity/Vol] 10 U/L <35 [facility] Serum or plasma albumin jeimy urement (mass/volume)Ordered By: Wendy Santana on 10-23-2024 Albumin [Mass/Vol] 3.0 g/dL Low 3.5-5.0 [facility] Serum or plasma albumin/glob ulin mass ratioOrdered By: Wendy Santana on 10-23-2024 Albumin/Globulin [Mass ratio] 1.0 {ratio} 0.9-2.4 [facility] Serum or plasma alkaline chaka sphatase measurementOrdered By: Wendy Santana on 10-23-2024 ALP [Catalytic activity/Vol] 75 U/L 35-104 [facility] Serum or plasma calcium jeimy urement (mass/volume)Ordered By: Wendy Santana on 10-23-2024 Calcium [Mass/Vol] 8.6 mg/dL 7.6-11.0 [facility] Serum or plasma urea nitroge n measurement (mass/volume)Ordered By: Wendy Santana on 10-23-2024 Urea nitrogen [Mass/Vol] 13 mg/dL 4-19 [facility] Sodium levelOrdered By: Xiang Knott on 10-23-2024 Sodium [Moles/Vol] 142 mmol/L 133-145 [facility] Total proteinOrdered By: Malia Santana on 10-23-2024 Protein [Mass/Vol] 5.8 g/dL Low 5.9-8.4 [facility] White blood cell (WBC) count Ordered By: Aquilino Collins on 10-23-2024 WBC (Bld) [#/Vol] 11.4 10*3/uL High 4.4-11.0 [facility] CBC W/Diff, Automatedon 10-08 Absolute Lymph 1.35 X10 3/uL Normal 0.83-4.51 [facility] Comment on above: Performed By: #### L 100.0100 ####[facility] [address] [place], [address] Absolute Neut 9.7 X10 3/uL High 2.0-7.7 [facility] Comment on above: Performed By: #### L 100.0100 ####[facility] [address] [place], [address] Basophils/100 WBC (Bld) 0.3 % Normal 0-1 [facility] Comment on above: Performed By: #### L 100.0100 ####[facility] [address] [place], [address] Eosinophils/100 WBC (Bld) 0.0 % Normal 0-5 [facility] Comment on above: Performed By: #### L 100.0100 ####[facility] [address] [place], [address] Erythrocyte distribution width (RBC) [Ratio] 11.8 % Normal 11.6-14.6 [facility] Comment on above: Performed By: #### L 100.0100 ####[facility] [address] [place], [address] Hematocrit (Bld) [Volume fraction] 34.5 % Low 37-47 [facility] Comment on above: Performed By: #### L 100.0100 ####[facility] [address] [place], [address] Hemoglobin (Bld) [Mass/Vol] 11.8 g/dL Low 12.0-15.0 [facility] Comment on above: Performed By: #### L 100.0100 ####[facility] [address] [place], [address] IG% 0.900 Normal 0.0-0.9 [facility] Comment on above: Result Comment: IG% - Immature Granulocytes (promyelocytes, myelocytes and metamyelocytes) > 1% indicates that a LEFT SHIFT is Present. Performed By: #### L 100.0100 ####[facility] [address] [place], [address] Lymphocytes/100 WBC (Bld) 11.5 % Low 19-41 [facility] Comment on above: Performed By: #### L 100.0100 ####[facility] [address] [place], [address] MCH (RBC) [Entitic mass] 30.8 pg Normal 27.0-32.0 [facility] Comment on above: Performed By: #### L 100.0100 ####[facility] [address] [place], [address] MCHC (RBC) [Mass/Vol] 34.2 g/dL Normal 32-36 [facility] Comment on above: Performed By: #### L 100.0100 ####[facility] [address] [place], [address] MCV (RBC) [Entitic vol] 90.1 fL Normal 81-[address] [facility] Comment on above: Performed By: #### L 100.0100 ####[facility] [address] [place], [address] Monocytes/100 WBC (Bld) 5.3 % Normal 0-[address] [facility] Comment on above: Performed By: #### L 100.0100 ####[facility] [address] [place], [address] Neutrophils/100 WBC (Bld) 82.0 % High 47-70 [facility] Comment on above: Performed By: #### L 100.0100 ####[facility] [address] [place], [address] Nucleated RBC (Bld) [#/Vol] 0 10*3/uL Normal 0-5 [facility] Comment on above: Performed By: #### L 100.0100 ####[facility] [address] [place], [address] Platelet mean volume (Bld) [Entitic vol] 10.2 fL Normal 6.2-12.0 [facility] Comment on above: Performed By: #### L 100.0100 ####[facility] [address] [place], [address] Platelets (Bld) [#/Vol] 228 10*3/uL Normal 150-450 [facility] Comment on above: Performed By: #### L 100.0100 ####[facility] [address] [place], [address] RBC (Bld) [#/Vol] 3.83 10*6/uL Low 4.2-5.4 [facility] Comment on above: Performed By: #### L 100.0100 ####[facility] [address] [place], [address] RDW SD 38.6 fl Normal 35.1-43.9 [facility] Comment on above: Performed By: #### L 100.0100 ####[facility] [address] [place], [address] WBC (Bld) [#/Vol] 11.8 10*3/uL High 4.4-11.0 [facility] Comment on above: Performed By: #### L 100.0100 ####[facility] [address] [place], [address] Comprehensive [facility] Albumin [Mass/Vol] 3.2 g/dL Low 3.5-5.0 [facility] Comment on above: Performed By: #### L 500.4050, L100.0100, L501.2450 #### [facility] Laboratory [address] [place], [address] Albumin/Globulin [Mass ratio] 1.0 {ratio} Normal 0.9-2.4 [facility] Comment on above: Performed By: #### L 500.4050, L100.0100, L501.2450 #### [facility] Laboratory [address] [place], [address] ALK PHOS 91 U/L Normal 35-104 [facility] Comment on above: Performed By: #### L 500.4050, L100.0100, L501.2450 #### [facility] Laboratory [address] [place], [address] ALT [Catalytic activity/Vol] 12 U/L Normal <=34 [facility] Comment on above: Performed By: #### L 500.4050, L100.0100, L501.2450 #### [facility] Laboratory [address] [place], [address] AST [Catalytic activity/Vol] 14 U/L Normal <=31 [facility] Comment on above: Performed By: #### L 500.4050, L100.0100, L501.2450 #### [facility] Laboratory [address] [place], [address] Bilirubin [Mass/Vol] 0.28 mg/dL Normal 0.00-1.30 [facility] Comment on above: Performed By: #### L 500.4050, L100.0100, L501.2450 #### [facility] Laboratory [address] [place], [address] BUN/CRE 10.9 RATIO Normal 10-20 [facility] Comment on above: Performed By: #### L 500.4050, L100.0100, L501.2450 #### [facility] Laboratory [address] [place], [address] Calcium [Mass/Vol] 8.8 mg/dL Normal 7.6-11.0 [facility] Comment on above: Performed By: #### L 500.4050, L100.0100, L501.2450 #### [facility] Laboratory [address] [place], [address] Chloride [Moles/Vol] 105 mmol/L Normal 98-108 [facility] Comment on above: Performed By: #### L 500.4050, L100.0100, L501.2450 #### [facility] Laboratory [address] [place], [address] CO2 [Moles/Vol] 21.9 mmol/L Normal 21.0-32.0 [facility] Comment on above: Performed By: #### L 500.4050, L100.0100, L501.2450 #### [facility] Laboratory [address] [place], [address] Creatinine [Mass/Vol] 0.62 mg/dL Low 0.70-1.20 [facility] Comment on above: Performed By: #### L 500.4050, L100.0100, L501.2450 #### [facility] [facility] [address] [place], [address] ECRCL 156.39 ml/min Normal 50-250 [facility] Comment on above: Performed By: #### L 500.4050, L100.0100, L501.2450 #### [facility] [address] [place], [address] GAP 12 Normal 5-15 [facility] Comment on above: Performed By: #### L 500.4050, L100.0100, L501.2450 #### [facility] [address] [place], [address] GFR/1.73 sq M.predicted among non-blacks MDRD (S/P/Bld) [Vol rate/Area] 127 mL/min/{1.73_m2} Normal >60 [facility] Comment on above: Result Comment: mL/m in/1.73m2 CKD-EPI Creatinine Equation (2020) Performed By: #### L 500.4050, L100.0100, L501.2450 #### [facility] [address] [place], [address] Globulin (S) [Mass/Vol] 3.2 g/dL Normal 2.2-4.[address] [facility] Comment on above: Performed By: #### L 500.4050, L100.0100, L501.2450 #### [facility] [address] [place], [address] Glucose [Mass/Vol] 126 mg/dL High 70-99 [facility] Comment on above: Performed By: #### L 500.4050, L100.0100, L501.2450 #### [facility] [address] [place], [address] Potassium [Moles/Vol] 4.2 mmol/L Normal 3.3-5.1 [facility] Comment on above: Performed By: #### L 500.4050, L100.0100, L501.2450 #### [facility] [address] [place], [address] Sodium [Moles/Vol] 139 mmol/L Normal 133-145 [facility] Comment on above: Performed By: #### L 500.4050, L100.0100, L501.2450 #### [facility] [address] [place], [address] T PROT 6.4 g/dL Normal 5.9-8.4 [facility] Comment on above: Performed By: #### L 500.4050, L100.0100, L501.2450 #### [facility] [address] [place], [address] Urea nitrogen [Mass/Vol] 7 mg/dL Normal 4-19 [facility] Comment on above: Performed By: #### L 500.4050, L100.0100, L501.2450 #### [facility] [address] [place], [address] 12 Lead EKGon 10-21-2024 12 Lead EKG [facility] Cardiovascular Services [address] [place] [address] 12 Lead EKG 10/21/24 0523 MR#: [id number] Acct: [id number] Name: LUCY CROWLEY V Rep #: [id number] : 2000 From: Hao Hudson MD Attending Dr: Dr. Aquilino Collins MD Status: DI S IN Ordering Dr: Dorian Daily MD Date: 10/21/24 Location: [facility] Sex: F C Admitted: 10/20/24 Test Reason : AM EKG Blood Pressure : */* mmHG Vent. Rate : 89 BPM Atrial Rate : 89 BPM P-R Int : 152 ms QRS Dur : 94 ms QT Int : 360 ms P-R-T Axes : 66 84 51 degrees QTcB Int : 438 ms Normal sinus rhythm Normal ECG No previous ECGs available Confirmed by HAO HUDSON MD ([id number]), video news editor JONAS BARNES ([id number]) on 10/26/2024 9:34:49 AM Referred By: DENNIS Confirmed By: HAO HUDSON MD 10/26/24 0934 Date Hao Hudson MD CC: Dr. Dorian Daily MD; Dr. Heather Ruby DO; Dr. Aquilino Collins MD Signed Normal [facility] Activated partial thrombopla stin time (aPTT) in platelet poor plasma by coagulation aOrdered By: Dorian Daily on 10-21-2024 aPTT Coag (PPP) [Time] 35.3 s 24.1-36.2 [facility] CBC W/Diff, Automatedon 10-08 Absolute Lymph 1.15 X10 3/uL Normal 0.83-4.51 [facility] Comment on above: Performed By: #### L 500.4050, L100.0100, L501.2450 #### [facility] [address] [place], [place], [address] Absolute Neut 6.5 X10 3/uL Normal 2.0-7.7 [facility] Comment on above: Performed By: #### L 500.4050, L100.0100, L501.2450 #### [facility] [address] [place], [address] Basophils/100 WBC (Bld) 0.4 % Normal 0-1 [facility] Comment on above: Performed By: #### L 500.4050, L100.0100, L501.2450 #### [facility] [address] [place], [address] Eosinophils/100 WBC (Bld) 4.0 % Normal 0-5 [facility] Comment on above: Performed By: #### L 500.4050, L100.0100, L501.2450 #### [facility] [address] [place], [address] Erythrocyte distribution width (RBC) [Ratio] 11.6 % Normal 11.6-14.6 [facility] Comment on above: Performed By: #### L 500.4050, L100.0100, L501.2450 #### [facility] [address] [place], [address] Hematocrit (Bld) [Volume fraction] 34.1 % Low 37-47 [facility] Comment on above: Performed By: #### L 500.4050, L100.0100, L501.2450 #### [facility] [address] [place], [address] Hemoglobin (Bld) [Mass/Vol] 11.5 g/dL Low 12.0-15.0 [facility] Comment on above: Performed By: #### L 500.4050, L100.0100, L501.2450 #### [facility] [address] [place], [address] IG% 0.600 Normal 0.0-0.9 [facility] Comment on above: Result Comment: IG% - Immature Granulocytes (promyelocytes, myelocytes and metamyelocytes) > 1% indicates that a LEFT SHIFT is Present. Performed By: #### L 500.4050, L100.0100, L501.2450 #### [facility] [address] [place], [address] Lymphocytes/100 WBC (Bld) 13.5 % Low 19-41 [facility] Comment on above: Performed By: #### L 500.4050, L100.0100, L501.2450 #### [facility] [address] [place], [address] MCH (RBC) [Entitic mass] 30.6 pg Normal 27.0-32.0 [facility] Comment on above: Performed By: #### L 500.4050, L100.0100, L501.2450 #### [facility] [address] [place], [address] MCHC (RBC) [Mass/Vol] 33.7 g/dL Normal 32-36 [facility] Comment on above: Performed By: #### L 500.4050, L100.0100, L501.2450 #### [facility] [address] [place], [address] MCV (RBC) [Entitic vol] 90.7 fL Normal 81-[address] [facility] Comment on above: Performed By: #### L 500.4050, L100.0100, L501.2450 #### [facility] [address] [place], [address] Monocytes/100 WBC (Bld) 5.9 % Normal 0-10 [facility] Comment on above: Performed By: #### L 500.4050, L100.0100, L501.2450 #### [facility] [address] [place], [address] Neutrophils/100 WBC (Bld) 75.6 % High 47-70 [facility] Comment on above: Performed By: #### L 500.4050, L100.0100, L501.2450 #### [facility] [address] [place], [address] Nucleated RBC (Bld) [#/Vol] 0 10*3/uL Normal 0-5 [facility] Comment on above: Performed By: #### L 500.4050, L100.0100, L501.2450 #### [facility] [address] [place], [address] Platelet mean volume (Bld) [Entitic vol] 10.1 fL Normal 6.2-12.0 [facility] Comment on above: Performed By: #### L 500.4050, L100.0100, L501.2450 #### [facility] [address] [place], [address] Platelets (Bld) [#/Vol] 217 10*3/uL Normal 150-450 [facility] Comment on above: Performed By: #### L 500.4050, L100.0100, L501.2450 #### [facility] [address] [place], [address] RBC (Bld) [#/Vol] 3.76 10*6/uL Low 4.2-5.4 [facility] Comment on above: Performed By: #### L 500.4050, L100.0100, L501.2450 #### [facility] [address] [place], [address] RDW SD 38.5 fl Normal 35.1-43.9 [facility] Comment on above: Performed By: #### L 500.4050, L100.0100, L501.2450 #### [facility] [address] [place], [address] WBC (Bld) [#/Vol] 8.5 10*3/uL Normal 4.4-11.0 [facility] Comment on above: Performed By: #### L 500.4050, L100.0100, L501.2450 #### [facility] [address] [place], [address] Comprehensive Metabolic [facility] michaela 10-21-2024 Albumin [Mass/Vol] 3.4 g/dL Low 3.5-5.0 [facility] Comment on above: Performed By: #### L 500.4050, L100.0100, L501.2450 #### [facility] [address] [place], [address] Albumin/Globulin [Mass ratio] 1.1 {ratio} Normal 0.9-2.4 [facility] Comment on above: Performed By: #### L 500.4050, L100.0100, L501.2450 #### [facility] [address] [place], [address] ALK PHOS 95 U/L Normal 35-104 [facility] Comment on above: Performed By: #### L 500.4050, L100.0100, L501.2450 #### [facility] [address] [place], [address] ALT [Catalytic activity/Vol] 10 U/L Normal <=34 [facility] Comment on above: Performed By: #### L 500.4050, L100.0100, L501.2450 #### [facility] [address] [place], [address] AST [Catalytic activity/Vol] 13 U/L Normal <=31 [facility] Comment on above: Performed By: #### L 500.4050, L100.0100, L501.2450 #### [facility] [address] [place], [address] Bilirubin [Mass/Vol] 0.46 mg/dL Normal 0.00-1.30 [facility] Comment on above: Performed By: #### L 500.4050, L100.0100, L501.2450 #### [facility] [address] [place], [address] BUN/CRE 12.2 RATIO Normal 10-20 [facility] Comment on above: Performed By: #### L 500.4050, L100.0100, L501.2450 #### [facility] [address] [place], [address] Calcium [Mass/Vol] 8.7 mg/dL Normal 7.6-11.0 [facility] Comment on above: Performed By: #### L 500.4050, L100.0100, L501.2450 #### [facility] [address] [place], [address] Chloride [Moles/Vol] 102 mmol/L Normal 98-108 [facility] Comment on above: Performed By: #### L 500.4050, L100.0100, L501.2450 #### [facility] [address] [place], [address] CO2 [Moles/Vol] 23.1 mmol/L Normal 21.0-32.0 [facility] Comment on above: Performed By: #### L 500.4050, L100.0100, L501.2450 #### [facility] [address] [place], [address] Creatinine [Mass/Vol] 0.68 mg/dL Low 0.70-1.20 [facility] Comment on above: Performed By: #### L 500.4050, L100.0100, L501.2450 #### [facility] [address] [place], [address] ECRCL 142.59 ml/min Normal 50-250 [facility] Comment on above: Performed By: #### L 500.4050, L100.0100, L501.2450 #### [facility] [address] [place], [address] GAP 12 Normal 5-15 [facility] Comment on above: Performed By: #### L 500.4050, L100.0100, L501.2450 #### [facility] [address] [place], [address] GFR/1.73 sq M.predicted among non-blacks MDRD (S/P/Bld) [Vol rate/Area] 124 mL/min/{1.73_m2} Normal >60 [facility] Comment on above: Result Comment: mL/m in/1.73m2 CKD-EPI Creatinine Equation (2020) Performed By: #### L 500.4050, L100.0100, L501.2450 #### [facility] [address] [place], [address] Globulin (S) [Mass/Vol] 3.1 g/dL Normal 2.2-4.[address] [facility] Comment on above: Performed By: #### L 500.4050, L100.0100, L501.2450 #### [facility] [address] [place], [address] Glucose [Mass/Vol] 69 mg/dL Low 70-99 [facility] Comment on above: Performed By: #### L 500.4050, L100.0100, L501.2450 #### [facility] [address] [place], [address] Potassium [Moles/Vol] 3.3 mmol/L Normal 3.3-5.1 [facility] Comment on above: Performed By: #### L 500.4050, L100.0100, L501.2450 #### [facility] [address] [place], [address] Sodium [Moles/Vol] 137 mmol/L Normal 133-145 [facility] Comment on above: Performed By: #### L 500.4050, L100.0100, L501.2450 #### [facility] [address] [place], [address] T PROT 6.5 g/dL Normal 5.9-8.4 [facility] Comment on above: Performed By: #### L 500.4050, L100.0100, L501.2450 #### [facility] [address] [place], [address] Urea nitrogen [Mass/Vol] 8 mg/dL Normal 4-19 [facility] Comment on above: Performed By: #### L 500.4050, L100.0100, L501.2450 #### [facility] [address] [place], [address] International normalized rat io (INR) calculationOrdered By: Dorian Daily on 10-21-2024 INR Coag (Bld) [Relative time] 1.0 {INR} [facility] MR/POSTOP.ANEon 10-21-2024 MR/POSTOP.ANE [facility] Medical Records Department [address] [place] [address] Anesthesia Postop Eval I 10/21/241615 MR#: [id number] Acct: [id number] Name: LUCY CROWLEY V Rep #: [id number] : 2000 From: Christa Smith CRNA PCP: Dr. Heather Ruby, DO Status:ADM IN Y Race: C Location: [place] [id number] Anesthesia: Postop Eval I Current Vital Signs [...] Anesthesia document: Postop Eval 1 completed: Yes 10/21/241616 Date Christa Sarah PATCH SETTER Cosigner Signature: Date CC: Signed Normal [facility] [id number] 10-21-2024 MR/POSTOPAN2 [facility] Medical Records Department [address] [place] [address] Anesthesia Postop Eval II 10/21/24 1752 MR#: [id number] Acct: [id number] Name: LUCY CROWLEY V Rep #: [id number] : 2000 From: Dorian Daily MD PCP: Dr. Heather Ruby, DO Status:ADM IN Y Race: C Location: [facility] [id number] Anesthesia Postop Eval I Sum Postop Eval Completion status Anesthesia document: Postop Eval 1 completed: Yes Anesthesia Postop Eval I Summary Anesthesia Postop Eval I Summary: Anesthesia Postop Eval I: Assessment Summary Airway patent Yes 10/21/24 16:16 PATCH SETTER.[email or web address] Spontaneous unlabored Yes 10/21/24 16:16 PATCH SETTER.JABIEROBY respirations Mental status Awake,Calm 10/21/24 16:16 PATCH SETTER.SKOBY nausea No 10/21/24 16:16 PATCH SETTER.SKOBY Vomiting No 10/21/24 16:16 PATCH SETTER.SKOBY Anesthesia Postop Eval I: Fluid Summary Crystalloid volume administer 1,400 10/21/24 16:16 PATCH SETTER.SKOBY (ml) Colloids volume administered ( ml) Blood Product volume administered (ml) Total IV fluid infused 1,400 10/21/24 16:16 PATCH SETTER.SKOBY Anesthesia Postop Eval I: Summary Notes Anesthesia Complication No 10/21/24 16:16 PATCH SETTER.SKOBY Anesthesia Complication Comment: Post-operative progress note Anesthesia: Postop Eval II Evaluation Mental status: Awake and Calm Pain Level: 1 nausea: No Vomiting: No Complications Anesthesia Complication: No 10/21/24 1752 Date Dorian Shabazzigner Signature: Date CC: Signed Normal [facility] Operative Reporton 5 Operative Report [facility] Medical Records Department [address] [place] [address] Operative Report 10/21/24 1632 MR#: [id number] Acct: [id number] Name: LUCY CROWLEY V Rep #: [id number] : 2000 From: Aquilino Collins MD PCP: Dr. Heather Ruby DO Status:ADM IN Location: 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 She presented to [facility] last evening. She was seen and evaluated [...] gallbladder using blunt dissection with the suction turning lathe tender tip. There was densely adherent omentum to [...] separate from (more content not included)... Normal [facility] Partial Thromboplast Timeon 10-21-2024 aPTT Coag (Bld) [Time] 35.3 s Normal 24.1-36.2 [facility] Comment on above: Performed By: #### L 500.4050, L100.0100, L501.2450 #### [facility] [address] [place], [address] ,Urineon 10-21-2024 Beta HCG ( test) Ql (U) Negative Normal [facility] Comment on above: Result Comment: Very dilute urine specimens, as indicated by a low specific gravity, may not contain unit support representative levels of hCG. If is still suspected, a first morning urine specimen should be collected 48 hours later and tested. Performed By: #### L 400.7600 ####[facility] [address] [place], [address] Prothrombin Time w/INRon INR Coag (PPP) [Relative time] 1.0 {INR} Normal [facility] Comment on above: Performed By: #### L 500.4050, L100.0100, L501.2450 #### [facility] [address] [place], [address] PT Coag (PPP) [Time] 13.4 s Normal 11.7-14.9 [facility] Comment on above: Performed By: #### L 500.4050, L100.0100, L501.2450 #### [facility] [place], [address] Prothrombin timeOrdered By: Dorian Daily on 10-21-2024 PT Coag (PPP) [Time] 13.4 s 11.7-14.9 [facility] Surgery Specimen Level IIIon 10-21-2024 Surgery Specimen Level III Patient Age/Sex Location Account Attending Physician LUCY CROWLEY V 24/F MS3 [id number] Dr. Aquilino Collins MD Specimen: Received: 10/21/24 Status: GRACE Gill Num: [id number] Spec Type: LUZ MARINA Grimaldo Dr: Dr. [...] x 3.3 x 1.0 cm in aggregate. Land Lease Information Clerk sections are submitted in A1-2. [facility] 10-22-2024 CPT:38169 Patient Age/Sex Location Account Attending Physician LUCY CROWLEY V MS3 [id number] Dr. Aquilino Collins MD Signed (signature on file) Dr. Riddhi De La O MD 10/27/24 1549 Normal [facility] Comment on above: Performed By: #### P SUIII ####[facility] [address] [place], [place], [id number] Urine testOrdered By: Dorian Daily on 10-21-2024 HCG ( test) Ql (U) Negative [facility] Comment on above: Very dilute urine sp ecimens, as indicated by a low specificgravity, may not contain unit support representative levels of hCG. If is still suspected, a first morning urinespecimen should be collected 48 hours later and tested. Absolute lymphocyte countOrd ered By: Dillan Wu on 10-20-2024 Lymphocytes Auto (Unsp spec) [#/Vol] 1.83 10*3/uL 0.83-4.51 [facility] Absolute neutrophil countOrd ered By: Dillan Wu on 10-20-2024 Neutrophils (Bld) [#/Vol] 8.0 10*3/uL High 2.0-7.7 [facility] Anion gap in Serum or Plasma Ordered By: Dillan Wu on 10-20-2024 Anion gap [Moles/Vol] 15 mmol/L 5- [facility] Automated lymphocyte count a s percentage of total leukocytesOrdered By: Dillan Wu on 10-20-2024 Lymphocytes/100 WBC Auto (Unsp spec) 17.3 % Low 19- [facility] BUN/creatinine ratioOrdered By: Dillan Wu on 10-20-2024 Urea nitrogen/Creatinine [Mass ratio] 11.6 mg/mg 10- [facility] Basophil percentageOrdered B y: Dillan Wu on 10-20-2024 Basophils/100 WBC (Bld) 0.5 % 0-1 [facility] Bilirubin Test strip Ql (U)O rdered By: Dillan Wu on 10-20-2024 Bilirubin Ql (U) Negative Negative [facility] Bilirubin, totalOrdered By: Dillan Wu on 10-20-2024 Bilirubin [Mass/Vol] 0.51 mg/dL 0.00-1.30 [facility] CBC W/Diff, Automatedon 10-08 Absolute Lymph 1.83 X10 3/uL Normal 0.83-4.51 [facility] Comment on above: Performed By: #### L 500.4050, L100.0100, L501.2450 #### [facility] [address] [place], [address] Absolute Neut 8.0 X10 3/uL High 2.0-7.7 [facility] Comment on above: Performed By: #### L 500.4050, L100.0100, L501.2450 #### [facility] [address] [place], [address] Basophils/100 WBC (Bld) 0.5 % Normal 0-1 [facility] Comment on above: Performed By: #### L 500.4050, L100.0100, L501.2450 #### [facility] [address] [place], [address] Eosinophils/100 WBC (Bld) 1.2 % Normal 0-5 [facility] Comment on above: Performed By: #### L 500.4050, L100.0100, L501.2450 #### [facility] [address] [place], [address] Erythrocyte distribution width (RBC) [Ratio] 11.5 % Low 11.6-14.6 [facility] Comment on above: Performed By: #### L 500.4050, L100.0100, L501.2450 #### [facility] [address] [place], [address] Hematocrit (Bld) [Volume fraction] 35.2 % Low 37-47 [facility] Comment on above: Performed By: #### L 500.4050, L100.0100, L501.2450 #### [facility] [address] [place], [address] Hemoglobin (Bld) [Mass/Vol] 11.9 g/dL Low 12.0-15.0 [facility] [facility] Comment on above: Performed By: #### L 500.4050, L100.0100, L501.2450 #### [facility] [address] [place], [address] IG% 0.600 Normal 0.0-0.9 [facility] Comment on above: Result Comment: IG% - Immature Granulocytes (promyelocytes, myelocytes and metamyelocytes) > 1% indicates that a LEFT SHIFT is Present. Performed By: #### L 500.4050, L100.0100, L501.2450 #### [facility] [address] [place], [address] Lymphocytes/100 WBC (Bld) 17.3 % Low 19-41 [facility] Comment on above: Performed By: #### L 500.4050, L100.0100, L501.2450 #### [facility] [address] [place], [address] MCH (RBC) [Entitic mass] 30.5 pg Normal 27.0-32.0 [facility] Comment on above: Performed By: #### L 500.4050, L100.0100, L501.2450 #### [facility] [address] [place], [address] MCHC (RBC) [Mass/Vol] 33.8 g/dL Normal 32-36 [facility] Comment on above: Performed By: #### L 500.4050, L100.0100, L501.2450 #### [facility] [address] [place], [address] MCV (RBC) [Entitic vol] 90.3 fL Normal 81-[address] [facility] Comment on above: Performed By: #### L 500.4050, L100.0100, L501.2450 #### [facility] [address] [place], [address] Monocytes/100 WBC (Bld) 4.9 % Normal 0-[address] [facility] Comment on above: Performed By: #### L 500.4050, L100.0100, L501.2450 #### [facility] [address] [place], [address] Neutrophils/100 WBC (Bld) 75.5 % High 47-70 [facility] Comment on above: Performed By: #### L 500.4050, L100.0100, L501.2450 #### [facility] [address] [place], [address] Nucleated RBC (Bld) [#/Vol] 0 10*3/uL Normal 0-5 [facility] Comment on above: Performed By: #### L 500.4050, L100.0100, L501.2450 #### [facility] [address] [place], [address] Platelet mean volume (Bld) [Entitic vol] 10.1 fL Normal 6.2-12.0 [facility] Comment on above: Performed By: #### L 500.4050, L100.0100, L501.2450 #### [facility] [address] [place], [address] Platelets (Bld) [#/Vol] 252 10*3/uL Normal 150-450 [facility] Comment on above: Performed By: #### L 500.4050, L100.0100, L501.2450 #### [facility] [address] [place], [address] RBC (Bld) [#/Vol] 3.90 10*6/uL Low 4.2-5.4 [facility] Comment on above: Performed By: #### L 500.4050, L100.0100, L501.2450 #### [facility] [address] [place], [address] RDW SD 38.0 fl Normal 35.1-43.9 [facility] Comment on above: Performed By: #### L 500.4050, L100.0100, L501.2450 #### [facility] [address] [place], [address] WBC (Bld) [#/Vol] 10.6 10*3/uL Normal 4.4-11.0 [facility] Comment on above: Performed By: #### L 500.4050, L100.0100, L501.2450 #### [facility] [address] [place], [address] Carbon dioxide, total [Moles /volume] in Central venous bloodOrdered By: Dillan Wu on 10-20-2024 CO2 [Moles/Vol] 20.9 mmol/L Low 21.0-32.0 [facility] Chloride assayOrdered By: Noe Wu on 10-20-2024 Chloride [Moles/Vol] 101 mmol/L 98-108 [facility] Comprehensive Metabolic Prof ilon 10-20-2024 Albumin [Mass/Vol] 3.7 g/dL Normal 3.5-5.0 [facility] Comment on above: Performed By: #### L 500.4050, L100.0100, L501.2450 #### [facility] [address] [place], [address] Albumin/Globulin [Mass ratio] 1.1 {ratio} Normal 0.9-2.4 [facility] Comment on above: Performed By: #### L 500.4050, L100.0100, L501.2450 #### [facility] [address] [place], [address] ALK PHOS 102 U/L Normal 35-104 [facility] Comment on above: Performed By: #### L 500.4050, L100.0100, L501.2450 #### [facility] [address] [place], [address] ALT [Catalytic activity/Vol] 11 U/L Normal <=34 [facility] Comment on above: Performed By: #### L 500.4050, L100.0100, L501.2450 #### [facility] [address] [place], [address] AST [Catalytic activity/Vol] 15 U/L Normal <=31 [facility] Comment on above: Performed By: #### L 500.4050, L100.0100, L501.2450 #### [facility] [address] [place], [address] Bilirubin [Mass/Vol] 0.51 mg/dL Normal 0.00-1.30 [facility] Comment on above: Performed By: #### L 500.4050, L100.0100, L501.2450 #### [facility] [address] [place], [address] BUN/CRE 11.6 RATIO Normal 10-20 [facility] Comment on above: Performed By: #### L 500.4050, L100.0100, L501.2450 #### [facility] [address] [place], [address] Calcium [Mass/Vol] 9.1 mg/dL Normal 7.6-11.0 [facility] Comment on above: Performed By: #### L 500.4050, L100.0100, L501.2450 #### [facility] [address] [place], [address] Chloride [Moles/Vol] 101 mmol/L Normal 98-108 [facility] Comment on above: Performed By: #### L 500.4050, L100.0100, L501.2450 #### [facility] [address] [place], [address] CO2 [Moles/Vol] 20.9 mmol/L Low 21.0-32.0 [facility] Comment on above: Performed By: #### L 500.4050, L100.0100, L501.2450 #### [facility] [address] [place], [address] Creatinine [Mass/Vol] 0.82 mg/dL Normal 0.70-1.20 [facility] Comment on above: Performed By: #### L 500.4050, L100.0100, L501.2450 #### [facility] [address] [place], [address] ECRCL 114.12 ml/min Normal 50-250 [facility] Comment on above: Performed By: #### L 500.4050, L100.0100, L501.2450 #### [facility] [address] [place], [address] GAP 15 Normal 5-15 [facility] Comment on above: Performed By: #### L 500.4050, L100.0100, L501.2450 #### [facility] [address] [place], [address] GFR/1.73 sq M.predicted among non-blacks MDRD (S/P/Bld) [Vol rate/Area] 102 mL/min/{1.73_m2} Normal >60 [facility] Comment on above: Result Comment: mL/m in/1.73m2 CKD-EPI Creatinine Equation (2020) Performed By: #### L 500.4050, L100.0100, L501.2450 #### [facility] [address] [place], [address] Globulin (S) [Mass/Vol] 3.5 g/dL Normal 2.2-4.[address] [facility] Comment on above: Performed By: #### L 500.4050, L100.0100, L501.2450 #### [facility] [address] [place], [address] Glucose [Mass/Vol] 74 mg/dL Normal 70-99 [facility] Comment on above: Performed By: #### L 500.4050, L100.0100, L501.2450 #### [facility] [address] [place], [address] Potassium [Moles/Vol] 3.8 mmol/L Normal 3.3-5.1 [facility] Comment on above: Performed By: #### L 500.4050, L100.0100, L501.2450 #### [facility] [address] [place], [address] Sodium [Moles/Vol] 137 mmol/L Normal 133-145 [facility] Comment on above: Performed By: #### L 500.4050, L100.0100, L501.2450 #### [facility] [address] [place], [address] T PROT 7.2 g/dL Normal 5.9-8.4 [facility] Comment on above: Performed By: #### L 500.4050, L100.0100, L501.2450 #### [facility] [address] [place], [address] Urea nitrogen [Mass/Vol] 9 mg/dL Normal 4-19 [facility] Comment on above: Performed By: #### L 500.4050, L100.0100, L501.2450 #### [facility] [address] [place], [address] Emergency Department Summary on 10-20-2024 Emergency Department Summary [facility] Medical Records Department [address] [place] [address] Emergency Department Summary 10/20/24 MR#: [id number] Acct: [id number] Name: LUCY CROWLEY V Rep #: [id number] : 2000 24 From: Dillan Wu MD [...] with biliary colic was transferred here from [facility]. Dr. Chacon did ERCP remove several [...] diaphoretic or (more content not included)... Normal [facility] Eosinophil percentageOrdered By: Dillan Wu on 10-20-2024 Eosinophils/100 WBC (Bld) 1.2 % 0-5 [facility] Erythrocyte distribution wid th ratioOrdered By: Dillan Wu on 10-20-2024 Erythrocyte distribution width (RBC) [Ratio] 11.5 % Low 11.6-14.6 [facility] Erythrocyte distribution wid th standard deviationOrdered By: Dillan Wu on 10-20-2024 Erythrocyte distribution width (RBC) [Ratio] 38.0 fl 35.1-43.9 [facility] Gallbladderon 10-20-2024 Gallbladder [facility] Imaging Services [address] [place] [address] Gallbladder MR#: [id number] Acct: [id number] Name: LUCY CROWLEY V Rep #: [id number] : 2000 F 24 From: Ignacio marcos MD PCP: Dr. Heather Ruby DO Status: REG ER Study: Gallbladder Date of Exam: 10/20/24 Exam# [id number] Ordering Dr: Dillan Wu MD PROCEDURE: GALLBLADDER [...] sign, compatible with acute cholecystitis. [facility]: Dr. Dillan Wu MD; Dr. Heather Ruby DO Bobbin Coil Winder: Signed Normal [facility] Glomerular filtration rate ( GFR) estimation/1.73 sq m using serum, plasma, or whole bOrdered By: Dillan Wu on 10-20-2024 GFR/1.73 sq M.predicted among non-blacks MDRD (S/P/Bld) [Vol rate/Area] 102 mL/min/{1.73_m2} >60 [facility] Comment on above: mL/min/1.73m2 CKD-EP I Creatinine Equation (2020) Hematocrit Auto (Bld) [Volum e fraction]Ordered By: Dillan Wu on 10-20-2024 Hematocrit (Bld) [Volume fraction] 35.2 % Low 37-47 [facility] Hemoglobin measurementOrdere d By: Dillan Wu on 10-20-2024 Hemoglobin (Bld) [Mass/Vol] 11.9 g/dL Low 12.0-15.0 [facility] Immature granulocytes/100 WB C Auto (Bld)Ordered By: Dillan Wu on 10-20-2024 Immature granulocytes/100 WBC (Bld) 0.600 % 0.0-0.9 [facility] Comment on above: IG% - Immature Granu locytes (promyelocytes, myelocytes and metamyelocytes) > 1% indicates that a LEFT SHIFT is Present. Ketones Test strip Ql (U)Ord ered By: Dillan Wu on 10-20-2024 Ketones Ql (U) 150 mg/dl Abnormal Negative [facility] Comment on above: CRITICAL VALUE BUTLER D TO BLANCO CAMPOS10/20/24 1830 Rosy Nicole.RESULTS READ BACK BY SAME. Laboratory - Chemistry and C hemistry - challengeOrdered By: Dillan Wu on 10-20-2024 AST [Catalytic activity/Vol] 15 U/L <32 [facility] Lipaseon 10-20-2024 Lipase [Catalytic activity/Vol] 13 U/L Normal 13-75 [facility] Comment on above: Result Comment: Nicholas sood note: LIPASE revised reference range effective 22. New Lipase methodology. Expected to produce lower values than the previous assay method. NEW Reference Range: 13 - 75 U/L Performed By: #### L 500.4050, L100.0100, L501.2450 #### [facility] [address] [place], [place], [address] Lipase measurementOrdered By : Dillan Wu on 10-20-2024 Lipase [Catalytic activity/Vol] 13 U/L - [facility] Comment on above: Please note:LIPASE r evised reference range effective 22. New Lipase methodology. Expected to produce lower values than the previous assay method. NEW Reference Range: 13 - 75 U/L MCV (mean corpuscular volume ) determinationOrdered By: Dillan Wu on 10-20-2024 MCV (RBC) [Entitic vol] 90.3 fL 81-99 [facility] Mean corpuscular hemoglobin (MCH) determinationOrdered By: Dillan Wu on 10-20-2024 MCH (RBC) [Entitic mass] 30.5 pg 27.0-32.0 [facility] Mean corpuscular hemoglobin concentration (MCHC) determinationOrdered By: Dillan Wu on 10-20-2024 MCHC (RBC) [Mass/Vol] 33.8 g/dL 32-36 [facility] Mean platelet volume determi nationOrdered By: Dillan Wu on 10-20-2024 Platelet mean volume (Bld) [Entitic vol] 10.1 fL 6.2-12.0 [facility] Microscopic analysis of urin e for red blood cells (RBC)Ordered By: Dillan Wu on 10-20-2024 Microscopic analysis of urine for red blood cells (RBC) 5-10 SEEN /hpf 0-5 [facility] Monocyte percentageOrdered B y: Dillan Wu on 10-20-2024 Monocytes/100 WBC (Bld) 4.9 % 0-10 [facility] Mucus LM Ql (Urine sed)Order ed By: Dillan Wu on 10-20-2024 Mucus Ql (Urine sed) 0 SEEN /hpf [facility] Neutrophil percentageOrdered By: Dillan Wu on 10-20-2024 Neutrophils/100 WBC (Bld) 75.5 % High 47-70 [facility] Nitrite Test strip Ql (U)Ord ered By: Dillan Wu on 10-20-2024 Nitrite Ql (U) Negative Negative [facility] Nucleated red blood cell per centageOrdered By: Dillan Wu on 10-20-2024 Nucleated RBC/100 WBC (Bld) [Ratio] 0 % 0-5 [facility] Platelet countOrdered By: Noe Wu on 10-20-2024 Platelets (Bld) [#/Vol] 252 10*3/uL 150-450 [facility] Potassium measurement (mass/ volume)Ordered By: Dillan Wu on 10-20-2024 Potassium (Unsp spec) [Mass/Vol] 3.8 mmol/L 3.3-5.1 [facility] Protein Test strip Ql (U)Ord ered By: Dillan Wu on 10-20-2024 Protein Ql (U) 30 mg/dl High Negative [facility] RBC Auto (Bld) [#/Vol]Ordere d By: Dillan Wu on 10-20-2024 RBC (Bld) [#/Vol] 3.90 10*6/uL Low 4.2-5.4 [facility] Serum creatinine measurement (mass/volume)Ordered By: Dillan Wu on 10-20-2024 Creatinine [Mass/Vol] 0.82 mg/dL 0.70-1.20 [facility] Serum globulin measurementOr dered By: Dillan Wu on 10-20-2024 Globulin (S) [Mass/Vol] 3.5 g/dL 2.2-4.2 [facility] Serum glucose measurement (m ass/volume)Ordered By: Dillan Wu on 10-20-2024 Glucose [Mass/Vol] 74 mg/dL 70-99 [facility] Serum or plasma alanine allan otransferase (ALT) measurementOrdered By: Dillan Wu on 10-20-2024 ALT [Catalytic activity/Vol] 11 U/L <35 [facility] Serum or plasma albumin jeimy urement (mass/volume)Ordered By: Dillan Wu on 10-20-2024 Albumin [Mass/Vol] 3.7 g/dL 3.5-5.0 [facility] Serum or plasma albumin/glob ulin mass ratioOrdered By: Dillan Wu on 10-20-2024 Albumin/Globulin [Mass ratio] 1.1 {ratio} 0.9-2.4 [facility] Serum or plasma alkaline chaka sphatase measurementOrdered By: Dillan Wu on 10-20-2024 ALP [Catalytic activity/Vol] 102 U/L 35-104 [facility] Serum or plasma calcium jeimy urement (mass/volume)Ordered By: Dillan Wu on 10-20-2024 Calcium [Mass/Vol] 9.1 mg/dL 7.6-11.0 [facility] Serum or plasma urea nitroge n measurement (mass/volume)Ordered By: Dillan Wu on 10-20-2024 Urea nitrogen [Mass/Vol] 9 mg/dL 4-19 [facility] Sodium levelOrdered By: Dillan Wu on 10-20-2024 Sodium [Moles/Vol] 137 mmol/L 133-145 [facility] Squamous epithelial cells de tection in urine sediment by light microscopyOrdered By: Dillan Wu on 10-20-2024 Epithelial cells.squamous LM Ql (Urine sed) 0-5 SEEN /hpf 5-10 [facility] Total proteinOrdered By: Shantanu Wu on 10-20-2024 Protein [Mass/Vol] 7.2 g/dL 5.9-8.4 [facility] Urinalysis, Completeon 10-20 WBC 5-10 SEEN Normal 0-5 [facility] Comment on above: Order Comment: CLEAN CATCH Performed By: #### L 500.4050, L100.0100, L501.2450 #### [facility] [address] [place], [address] BACTERIA 1+ /hpf Normal None Seen [facility] Comment on above: Order Comment: CLEAN CATCH Performed By: #### L 500.4050, L100.0100, L501.2450 #### [facility] [address] [place], [address] EPI,SQUAMOUS 0-5 SEEN Normal 5-10 [facility] Comment on above: Order Comment: CLEAN CATCH Performed By: #### L 500.4050, L100.0100, L501.2450 #### [facility] [address] [place], [address] RBC 5-10 SEEN Normal 0-5 [facility] Comment on above: Order Comment: CLEAN CATCH Performed By: #### L 500.4050, L100.0100, L501.2450 #### [facility] [address] [place], [address] Mucus Ql (Urine sed) 0 SEEN Normal [facility] Comment on above: Order Comment: CLEAN CATCH Performed By: #### L 500.4050, L100.0100, L501.2450 #### [facility] [address] [place], [address] Urine clarityOrdered By: Shantanu Wu on 10-20-2024 Clarity (U) Sl. Cloudy Clear [facility] Urine color determinationOrd ered By: Dillan Wu on 10-20-2024 Color (U) Yellow Yellow [facility] Urine cultureOrdered By: Shantanu Wu on 10-20-2024 Bacteria identified Cx Nom (U) Streptococcus gallolyticus pas Abnormal [facility] Bacteria identified Cx Nom (U) Positive Abnormal [facility] Urine glucose detectionOrder ed By: Dillan Wu on 10-20-2024 Glucose Ql (U) Normal mg/dl Normal [facility] Urine leukocyte esterase det ection by dipstickOrdered By: Dillan Wu on 10-20-2024 Leukocyte esterase Test strip Ql (U) 25 /ul High Negative [facility] Urine pHOrdered By: Dillan burnham on 10-20-2024 pH (U) 6.0 [pH] 5.0 - 8.0 [facility] Urine sediment bacteria coun t by microscopy (number/high power field)Ordered By: Dillan Wu on 10-20-2024 Bacteria LM.HPF (Urine sed) [#/Area] 1 /[HPF] None Seen [facility] Urine specific gravity measu rementOrdered By: Dillan Wu on 10-20-2024 Specific gravity (U) [Rel density] 1.020 1.002-1.030 [facility] Urine urobilinogen measureme ntOrdered By: Dillan Wu on 10-20-2024 Urobilinogen Ql (U) 1 mg/dl High Normal [facility] White blood cell (WBC) count Ordered By: Dillan uW on 10-20-2024 WBC (Bld) [#/Vol] 10.6 10*3/uL 4.4-11.0 [facility] White blood cell countOrdere d By: Dillan Wu on 10-20-2024 White blood cell count 5-10 SEEN /hpf 0-5 [facility] C-REACTIVE PROTEINon 025 CRP 3.45 mg/dl High 0.00 - 0.90 [facility] Comment on above: Performed By: #### 2 [id number] #### [facility],[address] [place] [address] CBC + DIFFon 10-16-2024 Baso # 0.02 x10EE3/UL Normal 0.00 - 0.10 [facility] Comment on above: Performed By: #### 2 [id number] #### [facility],[address] [place], [place] [id number] Basophils/100 WBC (Bld) 0.2 % Normal 0.0 - 2.0 [facility] Comment on above: Performed By: #### 2 08552 #### [facility],[address] [place] [address] CBC + DIFF Normal [facility] Comment on above: Result Comment: CBC- COMPLETE BLOOD COUNT Performed By: #### 2 [id number] #### [facility],[address] [place] [address] EO # 0.20 x10EE3/UL Normal 0.00 - 0.50 [facility] Comment on above: Performed By: #### 2 70146 #### [facility],[address] [place] [address] Eosinophils/100 WBC (Bld) 2.4 % Normal 0.0 - 7.0 [facility] Comment on above: Performed By: #### 2 88601 #### [facility],[address] [place] [address] Erythrocyte distribution width (RBC) [Ratio] 12.8 % Normal 12.0 - 15.6 [facility] Comment on above: Performed By: #### 2 78634 #### [facility],[address] [place] [address] Hematocrit (Bld) [Volume fraction] 36.5 % Normal 34.0 - 46.0 [facility] Comment on above: Performed By: #### 2 62660 #### [facility],[address] [place] [address] Hemoglobin (Bld) [Mass/Vol] 12.8 g/dL Normal 12.0 - 16.0 [facility] Comment on above: Performed By: #### 2 39204 #### [facility],[address] [place] [address] Lymph # 1.58 x10EE3/UL Normal 0.80 - 2.80 [facility] Comment on above: Performed By: #### 2 15118 #### [facility],[address] [place] [address] Lymphocytes/100 WBC (Bld) 18.8 % Low 20.0 - 45.0 [facility] Comment on above: Performed By: #### 2 21451 #### [facility],[address] [place] [address] MANUAL DIFF N/A Normal [facility] Comment on above: Performed By: #### 2 07283 #### [facility],[address] [place] [address] MCH (RBC) [Entitic mass] 32 pg Normal 27 - 33 [facility] Comment on above: Performed By: #### 2 67896 #### [facility],[address] [place] [address] MCHC 35 X10 3 Normal 32 - 36 [facility] Comment on above: Performed By: #### 2 78274 #### [facility],[address] [place] [address] MCV (RBC) [Entitic vol] 91 fL Normal 80 - 99 [facility] Comment on above: Performed By: #### 2 19642 #### [facility],[address] [place] [address] Luquillo # 0.36 x10EE3/UL Normal 0.20 - 1.00 [facility] Comment on above: Performed By: #### 2 97710 #### [facility],[address] [place] [address] MONOS % 4.3 % Normal 0.0 - 10.0 [facility] Comment on above: Performed By: #### 2 07613 #### [facility],[address] [place] [address] Morphology Cy (Bld) [Interp] N/A Normal [facility] Comment on above: Performed By: #### 2 06939 #### [facility],[address] [place] [address] Neut # 6.23 x10EE3/UL Normal 1.50 - 7.10 [facility] Comment on above: Performed By: #### 2 86846 #### [facility],[address] [place] [address] 90787 Neutrophils/100 WBC (Bld) 74.3 % Normal 46.0 - 76.0 [facility] Comment on above: Performed By: #### 2 16918 #### [facility],[address] [place] [address] 39957 PLATELET 234 x10EE3/UL Normal 150 - 450 [facility] Comment on above: Performed By: #### 2 08152 #### [facility],[address] [place] [address] 18110 Platelet mean volume (Bld) [Entitic vol] 8.5 fL Normal 6.6 - 10.5 [facility] Comment on above: Result Comment: AUTO MATED DIFFERENTIAL Performed By: #### 2 60658 #### [facility],[address] [place] [address] 23425 RBC 4.00 x 10EE6/UL Low 4.10 - 5.30 [facility] Comment on above: Performed By: #### 2 84572 #### [facility],[address] [place] [address] 75694 WBC 8.4 x 10EE3/UL Normal 4.5 - 10.8 [facility] Comment on above: Performed By: #### 2 21527 #### [facility],[address] [place] [address] 46882 CMP with eGFRon 10-16-2024 AGE 24 years Normal [facility] Comment on above: Performed By: #### 2 97472 #### [facility],[address] [place] [address] 11574 Albumin [Mass/Vol] 3.5 g/dL Normal 3.4 - 5.0 [facility] Comment on above: Performed By: #### 2 45212 #### [facility],[address] [place] [address] 67243 Albumin/Globulin [Mass ratio] 1.0 {ratio} Normal 0.9 - 1.6 [facility] Comment on above: Performed By: #### 2 67424 #### [facility],[address] [place] [address] 40042 ALK PHOS 89 U/L Normal 46 - 116 [facility] Comment on above: Performed By: #### 2 72911 #### [facility],[address] [place] [address] 00934 ALT [Catalytic activity/Vol] 23 U/L Normal 16 - 63 [facility] Comment on above: Performed By: #### 2 50599 #### [facility],[address] [place] [address] 77557 Anion gap [Moles/Vol] 13 mmol/L Normal 10 - 20 [facility] Comment on above: Performed By: #### 2 55870 #### [facility],[address] [place], [place] [id number] AST [Catalytic activity/Vol] 16 U/L Normal 13 - 39 [facility] Comment on above: Performed By: #### 2 45474 #### [facility],[address] [place] [address] 02403 B/C RATIO 14 ratio Normal 0 - 30 [facility] Comment on above: Performed By: #### 2 58023 #### [facility],[address] [place] [address] 68525 Bilirubin [Mass/Vol] 0.4 mg/dL Normal 0.2 - 1.0 [facility] Comment on above: Performed By: #### 2 59754 #### [facility],[address] [place] [address] 54465 Calcium [Mass/Vol] 9.0 mg/dL Normal 8.5 - 10.1 [facility] Comment on above: Performed By: #### 2 45430 #### [facility],[address] [place] [address] 55122 Chloride [Moles/Vol] 106 mmol/L Normal 98 - 107 [facility] Comment on above: Performed By: #### 2 82676 #### [facility],[address] [place], [place] [id number] CMP with eGFR Normal [facility] Comment on above: Result Comment: COMP REHENSIVE METABOLIC PANEL Performed By: #### 2 96975 #### [place] [address] CO2 [Moles/Vol] 26.3 mmol/L Normal 21.0 - 32.0 [facility] Comment on above: Performed By: #### 2 76960 #### [facility],[address] [place] [address] Creatinine [Mass/Vol] 0.73 mg/dL Normal 0.55 - 1.02 [facility] Comment on above: Performed By: #### 2 80769 #### [facility],[address] [place] [address] GFR/1.73 sq M.predicted among non-blacks MDRD (S/P/Bld) [Vol rate/Area] mL/min/{1.73_m2} Normal 60 - 999 [facility] Comment on above: Performed By: #### 2 19765 #### [place] [address] Result Comment: ACCO RDING TO THE NATIONAL KIDNEY DISEASE EDUCATION PROGRAM(NKDE), A NORMAL eGFR IS A VALUE GREATER THAN OR EQUAL TO 60 ML/MIN/1.73 SQ METERS. CHRONIC KIDNEY DISEASE: <60mL/MIN/1.73 SQ METERS KIDNEY FAILURE: <15mL/MIN/1.73 SQ METERS THIS TEST SHOULD ONLY BE USED FOR PATIENTS 18 YEARS OF AGE AND OLDER. Globulin (S) [Mass/Vol] 3.5 g/dL Normal 1.5 - 3.8 [facility] Comment on above: Performed By: #### 2 30901 #### [place] [address] Glucose [Mass/Vol] 103 mg/dL Normal 74 - 106 [facility] Comment on above: Performed By: #### 2 31827 #### [facility],[address] [place] [address] 71542 Potassium [Moles/Vol] 3.4 mmol/L Low 3.5 - 5.1 [facility] Comment on above: Performed By: #### 2 17493 #### [facility],[address] [place] [address] 79258 Protein [Mass/Vol] 7.0 g/dL Normal 6.4 - 8.2 [facility] Comment on above: Performed By: #### 2 63571 #### [facility],[address] [place] [address] 21962 Sodium [Moles/Vol] 142 mmol/L Normal 136 - 145 [facility] Comment on above: Performed By: #### 2 79299 #### [facility],[address] [place] [address] 70276 Urea nitrogen [Mass/Vol] 10 mg/dL Normal 7 - 18 [facility] Comment on above: Performed By: #### 2 62509 #### [facility],[address] [place] [address] ABDOMEN/PELVIS [facility] 2024 CT ABDOMEN/PELVIS [place] [address] Patient: LUCY CROWLEY V. Phone#: : 2000 Age: 24 Gender: F Pt. Type: ER Account: [id number] Location: [facility] Ordering: ESTELLE QUINTANILLA Exam Date: 10/16/2024/0:49 Family Phys: IRINA ZAMORA Charge Code: 711184 Physician: Shannon Order #: [id number] Dose#: 20.6 PROCEDURE: CT ABDOMEN/PELVIS WITH CONTRAST [...] 24 Gender: F Pt. Type: ER Account: [id number] Location: 052 Ordering: ESTELLE QUINTANILLA Exam Date: 10/16/2024/0:49 Family Phys: IRINA ZAMORA Charge Code: 660313 Physician: Shannon Order #: [id number] Dose#: 20.6 OTHER: Negative. CONCLUSION: 1. Gallbladder wall thickening consistent with cholecystitis. 2. Biliary and pancreatic stents are present. Dictated by: Lizbet Espinoza MD on 10/16/2024 at 8:51 Approved by: Lizbet Espinoza MD on 10/16/2024 at 8:54 Normal [facility] ED MED ADMINISTRATION DETAIL on 10-16-2024 ED MED ADMINISTRATION DETAIL Charge Poster Medication Administration Record [place] [address] [place] [address] [phone] 10/15/2024 Patient: LUCY CROWLEY V Sex: Female : 2000 Age: 24y MEASUREMENTS: Wt: 89.4 kg, Ht/Wes: 65.0 in, BMI: 32.78 ALLERGIES: No known drug allergies Medication Ordered Medication Administration Date/Time IV NS 0.9 % 1000 23:43 05 IV NS 0.9 % 1000 mL started [...] R.N. 00:40 10/16/2024 Irene Rosa R.N. 00:40 05 Medication Discontinued: bag #1 infused. Total Scanned amount infused: 1000 mL. IV patency established. IV site checked: no pain, redness, or swelling. IV flushed thoroughly post-medication administration. - 01:36 Irene Rosa R.N. Ondansetron IVP 4 23:48 05 Ondansetron IVP 4 mg given via Site# 1. Allergies Given mg (NOW x1) verified and confirmed 5 rights. IV patency established. IV site 23:48 10/15/2024 checked: no pain, redness, or swelling. IV flushed thoroughly Irene Rosa R.N. pre-medication administration. IVP given by nurse. Information Scanned reviewed with patient. - 23:53 Irene Rosa R.N. 1 of 2 Charge Poster Medication Ordered Medication Administration Date/Time KetorOLAC 23:53 0508 KetorOLAC (Toradol) IVP 30 mg given via Site# 1. Given (Toradol) IVP 30 mg Allergies verified and confirmed 5 rights. IV patency established. IV 23:53 10/15/2024 (NOW x1) site checked: no pain, redness, or swelling. IV flushed thoroughly Irene Rosa R.N. pre-medication administration. IVP given by nurse. Information Scanned reviewed with patient. - 23:54 Irene Rosa R.N. 00:20 10/16 Medication Response: No adverse reaction. Pain is improving. The patient feels better. - 00:20 Irene Rosa R.N. 2 of 2 Normal [facility] ED NURSES CLINICAL NOTEon ED NURSES CLINICAL NOTE Nurse Narrative Nurse Clinical Narrative [facility] [address] [facility] [place] [address] [phone] 10/15/2024 23:05:00 Patient: LUCY CROWLEY V Sex: [...] placed in bile duct on 09/25/24 at [facility] by Dr. Chacon. Patient has an appointment to get stent removed on December 03 and then will follow up with Dr. Shaq Richter to schedule having her gallbladder removed.). The patient has had diarrhea. SEPSIS SCREEN: NEGATIVE. SIRS criteria: heart rate greater than 90. -- 23:20 10/15/24 EDT Tricia Dominguez R.N. 23:18 10/15/24. BP: 103/59 taken on left arm, while lying. MAP: 74. HR: 96. Regular and normal rate. RR: 16. Regular and unlabored. O2 saturation: 97% on room air. Temperature: 97.7 F (oral). Pain level now 6/10. Describes the pain as aching. (Mid abdomen). -- 23:20 10/15/24 EDT Tricia Dominguez R.N. Measurements: 23:18 10/15/24 Wt: 89.4 kg, Ht/Wes: 65.0 in, BMI: 32.78 -- 23:18 10/15/24 EDT Tricia Dominguez R.N. Medications: 1 of 4 Nurse Narrative no known home medications -- 23:16 10/15/24 EDT Tricia Domignuez R.N. Allergies: no known drug allergies -- 23:15 10/15/24 EDT Tricia Dominguez R.N. Problems: no known problem -- 23:10/15/24 EDT Tricia Dominguez R.N. Surgeries: Appendectomy -- 23:10/15/24 [...] assessment completed. No risk factors identified. -- 23:10/15/24 EDT Tricia Dominguez R.N. Interventions 23:10/15/24. Advanced care plan discussed with patient. Patient [...] the pain as aching. (Mid abdomen). -- 00:21 10/16/24 EDT Irene Rosa R.N. 23:22 10/15/24. HR: 79 bpm. O2 saturation: 96%. -- 00:10/16/24 EDT Irene Rosa R.N. 23:27 10/15/24. HR: 83 bpm. O2 saturation: 97%. -- 00:10/16/24 EDT Irene Rosa R.N. 23:32 10/15/24. HR: 81 bpm. O2 saturation: 96%. -- 00:10/16/24 EDT Irene Rosa R.N. 23:30 10/16/24. Ambulatory to room. Patient gowned. GENERAL / NEURO / PSYCH: Oriented X 4. HEENT: Mucous membranes are pink. RESPIRATORY: Respirations not labored. Breath sounds within normal limits. GI / : Abdomen soft. Abdominal tenderness in the right upper quadrant. Bowel sounds within normal limits. SKIN: Skin is warm and dry. -- 00:10/16/24 EDT Irene Rosa R.N. NURSING PROGRESS NOTES [...] reviewed wi (more content not included)... Normal [facility] ED ORDER SHEET (CPOE ONLY)on 10-16-2024 ED ORDER SHEET (CPOE ONLY) Order Sheet Order Sheet [place] [address] [place] [address] [id number] 10/15/2024 Patient: LUCY CROWLEY V Sex: Female [...] Quintanilla D.O. 10/15/2024 10/15/2024 Irene Mary R.N. RMargarita KetorOLAC (Toradol) IVP30 mg 23:31 10/15/2024 23:40 23:54 (NOW x1) Estelle Quintanilla D.O. 10/15/2024 10/15/2024 Irene Mary R.N. R.NYasmine LAB ORDERS Order Description Priority Entered Acknowledged Collected Completed CBC w Diff Stat Stat 23:29 10/15/2024 23:40 10/15/2024 23:42 10/15/2024 Av Alexis Debra Schrock, 1 of 3 Order Sheet R.NYasmine RYasmineN. CMP Stat Stat 23:29 10/15/2024 23:40 10/15/2024 [...] 10/15/2024 minutes Av Alexis Debra Schrock, R.N. RMargarita Sander [employer] Buffer 23:29 10/15/2024 23:40 10/15/2024 23:42 10/15/2024 Av Alexis Debra Schrock, R.N. R.N. Oxygen titrate to 92% 23:29 10/15/2024 23:40 10/15/2024 23:43 10/15/2024 Av Alexis Debra Schrock, R.N. RMargarita [Electronically signed by Estelle Quintanlila D.O. (10/16/2024 03:24 EDT)] 3 of 3 Normal [facility] ED PHYSICIAN CLINICAL REPORT on 10-16-2024 ED PHYSICIAN CLINICAL REPORT Narrative Physician Clinical Narrative [address] [address] [id number] 10/15/2024 23:05:00 Patient: LUCY CROWLEY V Sex: [...] here on September 24. Was transferred to [place] and had a stent placed in her gallbladder [facility] on September 25. He was 1 [...] 450 Fi (more content not included)... Normal [facility] ED SUPER BILLon 10-16-2024 ED SUPER BILL Superbill [place] [address] [place] [address] [phone] 10/15/2024 Patient: LUCY CROWLEY V Sex: Female : 2000 Age: 24y Facility Professional Category Item Description Code Code Quantity Fee Total Drugs Normal Saline 198785 1 $0.00 $0.00 1000cc (758609) Nurse/E/M EMERGENCY 936539 1 $0.00 $0.00 DEPT VISIT HIGH SEVERITYFUNCJ (28236-12) Nurse/IV/IM/Infusions Hydration 112243 1 $0.00 $0.00 additional hour (51980) Nurse/IV/IM/Infusions IVP additional 055397 1 $0.00 $0.00 push (55984) Nurse/IV/IM/Infusions IVP initial (75326) 438140 1 $0.00 $0.00 Grand $0.00 Total Providers Estelle Quintanilla D.O. Chief Complaint 1 of 2 Superbill ABDOMINAL PAIN. Principal Diagnosis Acute right upper quadrant abdominal pain. Biliary colic. ICD-10 Codes R10.11: Right upper quadrant pain K80.50: Calculus of bile duct without cholangitis or cholecystitis without obstruction 2 of 2 Normal [facility] ED VISIT SUMMARYon ED VISIT SUMMARY Visit Overview Visit Overview [address] [place] [address] [id number] 10/15/2024 Patient: LUCY CROWLEY V Sex: Female [...] None See nurses notes PAST SURGICAL HISTORY 1 of 3 Visit Overview Appendectomy SOCIAL HISTORY ED COURSE [...] PAIN BILIARY COLIC 3 of 3 Normal [facility] ED VITALS FLOW SHEETon 10-16 ED VITALS FLOW SHEET Vitals Vital Sign Flow Sheet [address] [address] [id number] 10/15/2024 Patient: LUCY CROWLEY V Sex: Female [...] 103/59 75 84 3 of 3 Normal [facility] LACTATEon 10-16-2024 Lactate [Moles/Vol] 0.5 mmol/L Normal 0.4 - 2.0 [facility] Comment on above: Performed By: #### 2 25502 #### [facility],[address] [place] [address] LIPASEon 10-16-2024 Lipase [Catalytic activity/Vol] 27.0 U/L Normal 15.0 - 78.0 [facility] Comment on above: Result Comment: *PLE ASE NOTE THAT RANGES FOR LIPASE HAVE CHANGED OF 06/07/23 DUE TO AN ASSAY UPDATE BY THE ENGAGEMENT MGR.THE NEW ASSAY RANGE IS 6-250 U/L, WITH A REFERENCE RANGE OF 16-77 U/L. Performed By: #### 2 11953 #### [facility],[address] [place] [address] SERUM QUALon 10-16 EXTERNAL QC DONE? YES Normal [facility] Comment on above: Performed By: #### 2 84010 #### [facility],[address] [place] [address] INTERNAL QC PASS Normal [facility] Comment on above: Performed By: #### 2 34916 #### [facility],[address] [place] [address] SER Negative Normal NEGATIVE [facility] Comment on above: Performed By: #### 2 95293 #### [facility],[address] [place] [address] URINALYSISon 10-16-2024 Amorphous NONE Normal [facility] Comment on above: Performed By: #### 2 99785 #### [facility],[address] [place] [address] Bacteria NONE Normal [facility] Comment on above: Performed By: #### 2 51718 #### [facility],[address] [place] [address] 96801 Bilirubin Ql (U) Negative Normal NORMAL: NEGATIVE [facility] Comment on above: Performed By: #### 2 85449 #### [facility],[address] [place] [address] 09499 Casts NONE Normal [facility] Comment on above: Performed By: #### 2 43345 #### [facility],[address] [place] [address] Clarity (U) clear Normal NORMAL: CLEAR [facility] Comment on above: Performed By: #### 2 56627 #### [facility],[address] [place], [place] [phone] Color (U) yellow Normal NORMAL: YELLOW [facility] Comment on above: Performed By: #### 2 88015 #### [facility],[address] [place], [place] [phone] Crystals LM Nom (Urine sed) NONE Normal [facility] Comment on above: Performed By: #### 2 79934 #### [facility],[address] [place], [place] [phone] Epi Cells OCC Normal [facility] Comment on above: Performed By: #### 2 55639 #### [facility],[address] [place] [address] 94537 Glucose Ql (U) NORM Normal NORMAL: NORMAL [facility] Comment on above: Performed By: #### 2 43754 #### [facility],[address] [place] [address] 84237 Hemoglobin Ql (U) 10 Abnormal NORMAL: NEGATIVE [facility] Comment on above: Performed By: #### 2 65060 #### [facility],[address] [place] [address] 72849 Ketone 15 Abnormal NORMAL: NEGATIVE [facility] Comment on above: Performed By: #### 2 88724 #### [facility],[address] [place] [address] 35906 Leukocytes Negative Normal NORMAL: NEGATIVE [facility] Comment on above: Performed By: #### 2 45083 #### [facility],[address] [place] [address] 58161 Mucous NONE Normal [facility] Comment on above: Performed By: #### 2 32111 #### [facility],[address] [place], [place] [phone] Nitrite Ql (U) Negative Normal NORMAL: NEGATIVE [facility] Comment on above: Performed By: #### 2 00355 #### [facility],[address] [place] [address] pH (U) 6 [pH] Normal NORMAL: 5.0-8.0 [facility] Comment on above: Performed By: #### 2 07718 #### [facility],[address] [place] [address] Protein Ql (U) Negative Normal NORMAL: NEGATIVE [facility] Comment on above: Performed By: #### 2 56038 #### [facility],[address] [place], [place] [phone] Rbc RARE Normal 0-3/hpf [facility] Comment on above: Performed By: #### 2 76967 #### [facility],[address] [place] [address] Sp [place] 1.015 Normal NORMAL: 1.010-1.030 [facility] Comment on above: Performed By: #### 2 62275 #### [facility],[address] [place], [place] [phone] Specimen Type R Normal [facility] Comment on above: Performed By: #### 2 48806 #### [facility],[address] [place], [place] [phone] Urinalysis dipstick W Reflex Microscopic panel (U) SEE BELOW Normal [facility] Comment on above: Result Comment: MICR OSCOPIC Performed By: #### 2 15191 #### [facility],[address] [place] [address] 24790 Urobilinog NORM Normal NORMAL: NORMAL [facility] Comment on above: Performed By: #### 2 75843 #### [facility],[address] [place] [address],[facility] [address] Wbc NONE Normal 0-5/hpf [facility] Comment on above: Performed By: #### 2 20089 #### [facility],[address] [place] [address],[facility] [address] Yeast NONE Normal [facility] Comment on above: Performed By: #### 2 81644 #### [facility],[address] [place] [address] 62125 Gastroenterology Visit Repor ton 10-09-2024 Gastroenterology Visit Report [facility] [address] [place] [address] OFFICE VISIT Date of Service: 10/09/24 MR#: [id number] Acct: [id number] Name: LUCY CROWLEY V Rep #: [id number] : 2000 Provider: CARMEN Castillo Age/Sex: 24/F Location: [facility] Status: Signed Intake Vital Signs 09/25/24 18:42 Height 5 ft 4 in Intake Visit Reasons: New PT Chief Complaint: choledocolithiasis Accompanied by: Is patient in pain?: No Allergies No Known Allergies Allergy (Verified 09/25/24 14:07) Nurse's Note: OV 10/09/24 pt here for f/u and reports she is feeling well. Reports gas, bloating and heartburn. Pt continues amoxicillin daily. [facility] Medical History (Updated 10/09/24 @ 09:08 by [...] to the office today for establishment with [facility]. [facility] admission 09.25.24-09.26.24 for biliary colic with elevated bili (4.8), AST (350), ALT (371) and ALP (200). US showing filing defects in gallbladder and CBD. She underwent ERCP with stone removal and CBD and pancreatic stent placement. Surgical consultation but pt decided to have her surgery at [facility]. OV 5.2.25 Pt here today for f/u after hospital admission. She is feeling well after having the stent and being on antibiotics. SHe has also been eating a low fat diet. She was seen by her surgeon at [facility] for cholecystectomy however he requested the CBD [...] Appearance: average body habitus and well nourished [facility] Head: normal to inspection Ears: hearing grossly [...] she wanted to have her surgeon at [place] Dr. Shaq Richter perform the surgery. She was seen by gen surg at [facility] and Dr. Richter wanted the stent removed prior to cholecystectomy. She will be scheduled for ERCP with stent pull. -ERCP with stent pull -f/u as needed Medications: Discontinued vit,[id number] 29-1 mg (Prenatabs FA) Discontinued Reason: Pt no longer taking 1 TAB PO DAILY@1200 30 days 30 tabs 3RF sennosides-docusate sodium 8.6-50 mg (Stimulant Laxative Plus) Discontinued Reason: Pt no longer taking 2 tabs PO BID PRN PRN 0 tabs 0RF Constipation Nida (more content not included)... Normal [facility] Absolute lymphocyte countOrd ered By: Radha Romano on 09-26-2024 Lymphocytes Auto (Unsp spec) [#/Vol] 2.03 10*3/uL 0.83-4.51 [facility] Absolute neutrophil countOrd ered By: Radha Romano on 09-26-2024 Neutrophils (Bld) [#/Vol] 6.4 10*3/uL 2.0-7.7 [facility] Anion gap in Serum or Plasma Ordered By: Radha Romano on 09-26-2024 Anion gap [Moles/Vol] 9 mmol/L 5-15 [facility] Automated lymphocyte count a s percentage of total leukocytesOrdered By: Radha Romano on 09-26-2024 Lymphocytes/100 WBC Auto (Unsp spec) 22.4 % -41 [facility] BUN/creatinine ratioOrdered By: Radha Romano on 09-26-2024 Urea nitrogen/Creatinine [Mass ratio] 7.8 mg/mg Low 10-20 [facility] Basic Metabolic Profile (BMP )on 09-26-2024 BUN/CRE 7.8 RATIO Low - [facility] Comment on above: Performed By: #### L 500.2500, L100.0100, L501.2450, L500.3400 #### [facility] [address] [place], [address] Calcium [Mass/Vol] 8.1 mg/dL Normal 7.6-11.0 [facility] Comment on above: Performed By: #### L 500.2500, L100.0100, L501.2450, L500.3400 #### [facility] [address] [place], [address] Chloride [Moles/Vol] 108 mmol/L Normal 98-108 [facility] Comment on above: Performed By: #### L 500.2500, L100.0100, L501.2450, L500.3400 #### [facility] [address] [place], [address] CO2 [Moles/Vol] 21.9 mmol/L Normal 21.0-32.0 [facility] Comment on above: Performed By: #### L 500.2500, L100.0100, L501.2450, L500.3400 #### [facility] [address] [place], [address] Creatinine [Mass/Vol] 0.70 mg/dL Normal 0.70-1.20 [facility] Comment on above: Performed By: #### L 500.2500, L100.0100, L501.2450, L500.3400 #### [facility] [address] [place], [address] ECRCL 136.89 ml/min Normal 50-250 [facility] Comment on above: Performed By: #### L 500.2500, L100.0100, L501.2450, L500.3400 #### [facility] [address] [place], [address] GAP 9 Normal 5-15 [facility] Comment on above: Performed By: #### L 500.2500, L100.0100, L501.2450, L500.3400 #### [facility] [address] [place], [address] GFR/1.73 sq M.predicted among non-blacks MDRD (S/P/Bld) [Vol rate/Area] 123 mL/min/{1.73_m2} Normal >60 [facility] Comment on above: Result Comment: mL/m in/1.73m2 CKD-EPI Creatinine Equation (2020) Performed By: #### L 500.2500, L100.0100, L501.2450, L500.3400 #### [facility] [address] [place], [address] Glucose [Mass/Vol] 77 mg/dL Normal 70-99 [facility] Comment on above: Performed By: #### L 500.2500, L100.0100, L501.2450, L500.3400 #### [facility] [address] [place], [address] Potassium [Moles/Vol] 3.9 mmol/L Normal 3.3-5.1 [facility] Comment on above: Result Comment: Hemo lysis present, Results??could be affected. ?? Performed By: #### L 500.2500, L100.0100, L501.2450, L500.3400 #### [facility] [address] [place], [address] Sodium [Moles/Vol] 139 mmol/L Normal 133-145 [facility] Comment on above: Performed By: #### L 500.2500, L100.0100, L501.2450, L500.3400 #### [facility] [address] [place], [address] Urea nitrogen [Mass/Vol] 5 mg/dL Normal - [facility] Comment on above: Performed By: #### L 500.2500, L100.0100, L501.2450, L500.3400 #### [facility] Laboratory [address] [place], [address] Basophil percentageOrdered B y: Radha Romano on 09-26-2024 Basophils/100 WBC (Bld) 0.4 % 0-1 [facility] Bilirubin directOrdered By: Radha Romano on 09-26-2024 Bilirubin.direct [Mass/Vol] 0.66 mg/dL High 0.00-0.30 [facility] Bilirubin, totalOrdered By: Radha Romano on 09-26-2024 Bilirubin [Mass/Vol] 0.99 mg/dL 0.00-1.30 [facility] CBC W/Diff, Automatedon - Absolute Lymph 2.03 X10 3/uL Normal 0.83-4.51 [facility] Comment on above: Performed By: #### L 500.2500, L100.0100, L501.2450, L500.3400 #### [facility] Laboratory [address] [place], [address] Absolute Neut 6.4 X10 3/uL Normal 2.0-7.7 [facility] Comment on above: Performed By: #### L 500.2500, L100.0100, L501.2450, L500.3400 #### [facility] Laboratory [address] [place], [address] Basophils/100 WBC (Bld) 0.4 % Normal 0-1 [facility] Comment on above: Performed By: #### L 500.2500, L100.0100, L501.2450, L500.3400 #### [facility] Laboratory [address] [place], [address] Eosinophils/100 WBC (Bld) 1.0 % Normal 0-5 [facility] Comment on above: Performed By: #### L 500.2500, L100.0100, L501.2450, L500.3400 #### [facility] Laboratory [address] [place], [address] Erythrocyte distribution width (RBC) [Ratio] 13.1 % Normal 11.6-14.6 [facility] Comment on above: Performed By: #### L 500.2500, L100.0100, L501.2450, L500.3400 #### [facility] Laboratory [address] [place], [address] Hematocrit (Bld) [Volume fraction] 33.9 % Low 37-47 [facility] Comment on above: Performed By: #### L 500.2500, L100.0100, L501.2450, L500.3400 #### [facility] Laboratory [address] [place], [address] Hemoglobin (Bld) [Mass/Vol] 11.4 g/dL Low 12.0-15.0 [facility] Comment on above: Performed By: #### L 500.2500, L100.0100, L501.2450, L500.3400 #### [facility] Laboratory [address] [place], [address] IG% 0.800 Normal 0.0-0.9 [facility] Comment on above: Result Comment: IG% - Immature Granulocytes (promyelocytes, myelocytes and metamyelocytes) > 1% indicates that a LEFT SHIFT is Present. Performed By: #### L 500.2500, L100.0100, L501.2450, L500.3400 #### [facility] Laboratory [address] [place], [address] Lymphocytes/100 WBC (Bld) 22.4 % Normal 19-41 [facility] Comment on above: Performed By: #### L 500.2500, L100.0100, L501.2450, L500.3400 #### [facility] Laboratory [address] [place], [address] MCH (RBC) [Entitic mass] 31.4 pg Normal 27.0-32.0 [facility] Comment on above: Performed By: #### L 500.2500, L100.0100, L501.2450, L500.3400 #### [facility] Laboratory [address] [place], [address] MCHC (RBC) [Mass/Vol] 33.6 g/dL Normal 32-36 [facility] Comment on above: Performed By: #### L 500.2500, L100.0100, L501.2450, L500.3400 #### [facility] Laboratory [address] [place], [address] MCV (RBC) [Entitic vol] 93.4 fL Normal 81-[address] [facility] Comment on above: Performed By: #### L 500.2500, L100.0100, L501.2450, L500.3400 #### [facility] Laboratory [address] [place], [address] Monocytes/100 WBC (Bld) 5.1 % Normal 0-[address] [facility] Comment on above: Performed By: #### L 500.2500, L100.0100, L501.2450, L500.3400 #### [facility] Laboratory [address] [place], [address] Neutrophils/100 WBC (Bld) 70.3 % High 47-70 [facility] Comment on above: Performed By: #### L 500.2500, L100.0100, L501.2450, L500.3400 #### [facility] Laboratory [address] [place], [address] Nucleated RBC (Bld) [#/Vol] 0 10*3/uL Normal 0-5 [facility] Comment on above: Performed By: #### L 500.2500, L100.0100, L501.2450, L500.3400 #### [facility] Laboratory [address] [place], [address] Platelet mean volume (Bld) [Entitic vol] 10.5 fL Normal 6.2-12.0 [facility] Comment on above: Performed By: #### L 500.2500, L100.0100, L501.2450, L500.3400 #### [facility] Laboratory [address] [place], [address] Platelets (Bld) [#/Vol] 195 10*3/uL Normal 150-450 [facility] Comment on above: Performed By: #### L 500.2500, L100.0100, L501.2450, L500.3400 #### [facility] Laboratory [address] [place], [address] RBC (Bld) [#/Vol] 3.63 10*6/uL Low 4.2-5.4 [facility] Comment on above: Performed By: #### L 500.2500, L100.0100, L501.2450, L500.3400 #### [facility] Laboratory [address] [place], [address] RDW SD 45.0 fl High 35.1-43.9 [facility] Comment on above: Performed By: #### L 500.2500, L100.0100, L501.2450, L500.3400 #### [facility] Laboratory [address] [place], [address] WBC (Bld) [#/Vol] 9.1 10*3/uL Normal 4.4-11.0 [facility] Comment on above: Performed By: #### L 500.2500, L100.0100, L501.2450, L500.3400 #### [facility] Laboratory [address] [place], [address] Carbon dioxide, total [Moles /volume] in Central venous bloodOrdered By: Radha Romano on 09-26-2024 CO2 [Moles/Vol] 21.9 mmol/L 21.0-32.0 [facility] Chloride assayOrdered By: Fanny Romano on 09-26-2024 Chloride [Moles/Vol] 108 mmol/L 98-108 [facility] Consultation - Surgicalon Consultation - Surgical [facility] Medical Records Department [address] [place] [address] Consultation - Surgical 09/26/24 0908 MR#: [id number] Acct: [id number] Name: LUCY CROWLEY V Rep #: [id number] : 2000 From: Chandan Mayo MD PCP: Dr. Heather Ruby, DO Status:ADM IN Location: [facility] WR164-8 Assessment Plan Assessment/Plan (1) Choledocholithiasis: PLAN: Patient gave the day before presentation she presented then with choledocholithiasis. She had ERCP yesterday with stent placement and stone removal. She is feeling well this morning. I will start her on clear liquids. The patient would like to follow-up with Dr. Shaq Richter at [facility] for her cholecystectomy. I will refer her on Saturday. I gave her my card in case he is unable to do the surgery and she can follow-up with me. I believe she is safe to be discharged home today or tomorrow depending on hospitalist service. She has a stent in place to prevent further blockage. Chandan Mayo MD Pager: [facility] [address], [address] [place] [address] Office: HPI Consult Data Date of Consult: 09/26/24 HPI Narrative HPI Narrative: LUCY CROWLEY, is a 24 F who presents with choledocholithiasis from outside hospital. She underwent ERCP yesterday with stone removal and stent placement. Currently she is not having any pain. [facility] Medical History Biliary colic Home Medications ???Medication [...] 77.6 H, Lymph % (Auto) 15.8 L, [place] % (Auto) 4.9, Eos % (Auto) 0.4, [...] (Auto) 70.3 H, Lymph % (Auto) 22.4, [place] % (Auto) 5.1, Eos % (Auto) 1.0, [...] Reading Loca (more content not included)... Normal [facility] Discharge Instructionon 09-08 Discharge Instruction [facility] Medical Records Department [address] [place] [address] Instructions for Home/Discharge Instructions 09/26/24 1118 MR#: [id number] Acct: [id number] Name: LUCY CROWLEY V Rep #: [id number] : 2000 From: Carlin Negron MD PCP: [...] CC: Dr. Chandan Mayo MD; Dr. Heather Ruby DO; Ld Chacon, Signed Normal [facility] Eosinophil percentageOrdered By: Radha Rosalina on 09-26-2024 Eosinophils/100 WBC (Bld) 1.0 % 0-5 [facility] Erythrocyte distribution wid th (RBC) [Ratio]Ordered By: Rosalina on 09-26-2024 Erythrocyte distribution width (RBC) [Entitic vol] 45.0 fL High 35.1-43.9 [facility] Erythrocyte distribution wid th ratioOrdered By: on 09-26-2024 Erythrocyte distribution width (RBC) [Ratio] 13.1 % 11.6-14.6 [facility] Erythrocyte distribution wid th standard deviationOrdered By: 09-26-2024 Erythrocyte distribution width (RBC) [Ratio] 45.0 fl High 35.1-43.9 [facility] Estimation of creatinine clarice aranceOrdered By: Radha Romano on 09-26-2024 Estimated Creatinine Clearance Calc 136.89 ml/min 50-250 [facility] GFR/1.73 sq M.predicted nneak g non-blacks MDRD (S/P/Bld) [Vol rate/Area]Ordered By: Radha Romano 09-26-2024 Estimated GFR (MDRD) Non-Af Amer 123 >60 [facility] Comment on above: mL/min/1.73m2 CKD-EP I Creatinine Equation (2020) Glomerular filtration rate ( GFR) estimation/1.73 sq m using serum, plasma, or whole bOrdered By: Radha Romano 09-26-2024 GFR/1.73 sq M.predicted among non-blacks MDRD (S/P/Bld) [Vol rate/Area] 123 mL/min/{1.73_m2} >60 [facility] Comment on above: mL/min/1.73m2 CKD-EP I Creatinine Equation (2020) Hematocrit Auto (Bld) [Volum e fraction]Ordered By: Radha Romano on 09-26-2024 Hematocrit (Bld) [Volume fraction] 33.9 % Low 37-47 [facility] Hemoglobin measurementOrdere d By: Radha Romano 09-26-2024 Hemoglobin (Bld) [Mass/Vol] 11.4 g/dL Low 12.0-15.0 [facility] Immature granulocytes/100 WB C Auto (Bld)Ordered By: Radha Romano on 09-26-2024 Immature granulocytes/100 WBC (Bld) 0.800 % 0.0-0.9 [facility] Comment on above: IG% - Immature Granu locytes (promyelocytes, myelocytes and metamyelocytes) > 1% indicates that a LEFT SHIFT is Present. Laboratory - Chemistry and C hemistry - challengeOrdered By: Radha Romano on 09-26-2024 AST [Catalytic activity/Vol] 51 U/L High <32 [facility] Lipaseon 09-26-2024 Lipase [Catalytic activity/Vol] 1358 U/L High 13-75 [facility] Comment on above: Result Comment: Nicholas sood note: LIPASE revised reference range effective 22. New Lipase methodology. Expected to produce lower values than the previous assay method. NEW Reference Range: 13 - 75 U/L Performed By: #### L 500.2500, L100.0100, L501.2450, L500.3400 #### [facility] Laboratory [address] [place], [place], [id number] Lipase measurementOrdered By : Radha Romano on 09-26-2024 Lipase [Catalytic activity/Vol] 1358 U/L High 13-75 [facility] Comment on above: Please note:LIPASE r evised reference range effective 22. New Lipase methodology. Expected to produce lower values than the previous assay method. NEW Reference Range: 13 - 75 U/L Liver Profileon 09-26-2024 Albumin [Mass/Vol] 3.0 g/dL Low 3.5-5.0 [facility] Comment on above: Performed By: #### L 500.2500, L100.0100, L501.2450, L500.3400 #### [facility] Laboratory [address] [place], [place], [id number] ALK PHOS 130 U/L High 35-104 [facility] Comment on above: Performed By: #### L 500.2500, L100.0100, L501.2450, L500.3400 #### [facility] Laboratory [address] [place], [address] ALT [Catalytic activity/Vol] 70 U/L High <=34 [facility] Comment on above: Performed By: #### L 500.2500, L100.0100, L501.2450, L500.3400 #### [facility] Laboratory [address] [place], [address] AST [Catalytic activity/Vol] 51 U/L High <=31 [facility] Comment on above: Performed By: #### L 500.2500, L100.0100, L501.2450, L500.3400 #### [facility] Laboratory [address] [place], [address] Bilirubin [Mass/Vol] 0.99 mg/dL Normal 0.00-1.30 [facility] Comment on above: Performed By: #### L 500.2500, L100.0100, L501.2450, L500.3400 #### [facility] Laboratory [address] [place], [address] Bilirubin.direct [Mass/Vol] 0.66 mg/dL High 0.00-0.30 [facility] Comment on above: Performed By: #### L 500.2500, L100.0100, L501.2450, L500.3400 #### [facility] Laboratory [address] [place], [address] Globulin (S) [Mass/Vol] 2.9 g/dL Normal 2.2-4.[address] [facility] Comment on above: Performed By: #### L 500.2500, L100.0100, L501.2450, L500.3400 #### [facility] Laboratory [address] [place], [address] T PROT 5.9 g/dL Normal 5.9-8.4 [facility] Comment on above: Performed By: #### L 500.2500, L100.0100, L501.0670, L500.3406 #### [facility] Laboratory [address] [place], [address] Lymphocytes Auto (Unsp spec) [#/Vol]Ordered By: Radha White on 09-26-2024 Lymphocytes (Bld) [#/Vol] 2.03 10*3/uL 0.83-4.51 [facility] Lymphocytes/100 WBC Auto (Un sp spec)Ordered By: Radha White on 09-26-2024 Lymphocytes/100 WBC (Bld) 22.4 % 19-41 [facility] MCV (mean corpuscular volume ) determinationOrdered By: Radha White on 09-26-2024 MCV (RBC) [Entitic vol] 93.4 fL 81-99 [facility] Mean corpuscular hemoglobin (MCH) determinationOrdered By: Radha White on 09-26-2024 MCH (RBC) [Entitic mass] 31.4 pg 27.0-32.0 [facility] Mean corpuscular hemoglobin concentration (MCHC) determinationOrdered By: Radha White on 09-26-2024 MCHC (RBC) [Mass/Vol] 33.6 g/dL 32-36 [facility] Mean platelet volume determi nationOrdered By: Radha White on 09-26-2024 Platelet mean volume (Bld) [Entitic vol] 10.5 fL 6.2-12.0 [facility] Monocyte percentageOrdered B y: White on 09-26-2024 Monocytes/100 WBC (Bld) 5.1 % 0-10 [facility] Neutrophil percentageOrdered By: White on 09-26-2024 Neutrophils/100 WBC (Bld) 70.3 % High 47-70 [facility] Nucleated red blood cell per centageOrdered By: White on 09-26-2024 Nucleated RBC/100 WBC (Bld) [Ratio] 0 % 0-5 [facility] Platelet countOrdered By: Fanny keelyzoe Romano on 09-26-2024 Platelets (Bld) [#/Vol] 195 10*3/uL 150-450 [facility] Potassium (Unsp spec) [Mass/ Vol]Ordered By: Radha Romano on 09-26-2024 Potassium [Moles/Vol] 3.9 mmol/L 3.3-5.1 [facility] Comment on above: Hemolysis present, R esults could be affected. Potassium measurement (mass/ volume)Ordered By: Radha Romano on 09-26-2024 Potassium (Unsp spec) [Mass/Vol] 3.9 mmol/L 3.3-5.1 [facility] Comment on above: Hemolysis present, R esults could be affected. RBC Auto (Bld) [#/Vol]Ordere d By: Radha Romano on 09-26-2024 RBC (Bld) [#/Vol] 3.63 10*6/uL Low 4.2-5.4 [facility] Serum creatinine measurement (mass/volume)Ordered By: Radha Romano on 09-26-2024 Creatinine [Mass/Vol] 0.70 mg/dL 0.70-1.20 [facility] Serum globulin measurementOr dered By: Radha Romano 09-26-2024 Globulin (S) [Mass/Vol] 2.9 g/dL 2.2-4.[address] [facility] Serum glucose measurement (m ass/volume)Ordered By: Radha Romano 09-26-2024 Glucose [Mass/Vol] 77 mg/dL 70-99 [facility] Serum or plasma alanine allan otransferase (ALT) measurementOrdered By: Radha Romano 09-26-2024 ALT [Catalytic activity/Vol] 70 U/L High <35 [facility] Serum or plasma albumin jeimy urement (mass/volume)Ordered By: Radha Romano 09-26-2024 Albumin [Mass/Vol] 3.0 g/dL Low 3.5-5.0 [facility] Serum or plasma alkaline chaka sphatase measurementOrdered By: Radha Rosalina 09-26-2024 ALP [Catalytic activity/Vol] 130 U/L High 35-104 [facility] Serum or plasma calcium jeimy urement (mass/volume)Ordered By: Radha Romano 09-26-2024 Calcium [Mass/Vol] 8.1 mg/dL 7.6-11.0 [facility] Serum or plasma urea nitroge n measurement (mass/volume)Ordered By: Radha Romano on 09-26-2024 Urea nitrogen [Mass/Vol] 5 mg/dL 4-19 [facility] Sodium levelOrdered By: Tru mn White on 09-26-2024 Sodium [Moles/Vol] 139 mmol/L 133-145 [facility] Total proteinOrdered By: Tr umn White on 09-26-2024 Protein [Mass/Vol] 5.9 g/dL 5.9-8.4 [facility] White blood cell (WBC) count Ordered By: Radha White on 09-26-2024 WBC (Bld) [#/Vol] 9.1 10*3/uL 4.4-11.0 [facility] AMYLASEon 09-25-2024 Amylase [Catalytic activity/Vol] 37 U/L Normal 25 - 115 [facility]; [facility] Work Phone: Comment on above: Performed By: #### 2 [id number] #### [facility],[address] [place] [address] Absolute neutrophil countOrd ered By: Florentin Zamudio on 09-25-2024 Neutrophils (Bld) [#/Vol] 8.0 10*3/uL High 2.0-7.7 [facility] Anion gap in Serum or Plasma Ordered By: Florentin Zamudio on 09-25-2024 Anion gap [Moles/Vol] 10 mmol/L 5-15 [facility] BUN/creatinine ratioOrdered By: Florentin Zamudio on 09-25-2024 Urea nitrogen/Creatinine [Mass ratio] 6.2 mg/mg Low 10-20 [facility] Basic Metabolic Profile (BMP )on 09-25-2024 BUN/CRE 6.2 RATIO Low 10-20 [facility] Comment on above: Performed By: #### L 100.0100, L501.2450, L503.6005, L500.2500, L500.3400 ####[facility] [address] [place], [place], [id number] Calcium [Mass/Vol] 9.0 mg/dL Normal 7.6-11.0 [facility] Comment on above: Performed By: #### L 100.0100, L501.2450, L503.6005, L500.2500, L500.3400 ####[facility] [address] [place], [address] Chloride [Moles/Vol] 104 mmol/L Normal 98-108 [facility] Comment on above: Performed By: #### L 100.0100, L501.2450, L503.6005, L500.2500, L500.3400 ####[facility] [address] [place], [address] CO2 [Moles/Vol] 22.6 mmol/L Normal 21.0-32.0 [facility] Comment on above: Performed By: #### L 100.0100, L501.2450, L503.6005, L500.2500, L500.3400 ####[facility] [address] [place], [address] Creatinine [Mass/Vol] 0.70 mg/dL Normal 0.70-1.20 [facility] Comment on above: Performed By: #### L 100.0100, L501.2450, L503.6005, L500.2500, L500.3400 ####[facility] [address] [place], [address] GAP 10 Normal 5-15 [facility] Comment on above: Performed By: #### L 100.0100, L501.2450, L503.6005, L500.2500, L500.3400 ####[facility] [address] [place], [address] GFR/1.73 sq M.predicted among non-blacks MDRD (S/P/Bld) [Vol rate/Area] 123 mL/min/{1.73_m2} Normal >60 [facility] Comment on above: Result Comment: mL/m in/1.73m2 CKD-EPI Creatinine Equation (2020) Performed By: #### L 100.0100, L501.2450, L503.6005, L500.2500, L500.3400 ####[facility] [address] [place], [address] Glucose [Mass/Vol] 108 mg/dL High 70-99 [facility] Comment on above: Performed By: #### L 100.0100, L501.2450, L503.6005, L500.2500, L500.3400 ####[facility] [address] [place], [address] Potassium [Moles/Vol] 3.6 mmol/L Normal 3.3-5.1 [facility] Comment on above: Performed By: #### L 100.0100, L501.2450, L503.6005, L500.2500, L500.3400 ####[facility] [address] [place], [address] Sodium [Moles/Vol] 137 mmol/L Normal 133-145 [facility] Comment on above: Performed By: #### L 100.0100, L501.2450, L503.6005, L500.2500, L500.3400 ####[facility] [address] [place], [address] Urea nitrogen [Mass/Vol] 4 mg/dL Normal 4-19 [facility] Comment on above: Performed By: #### L 100.0100, L501.2450, L503.6005, L500.2500, L500.3400 ####[facility] [address] [place], [address] Basophil percentageOrdered B y: Florentin Zamudio on 09-25-2024 Basophils/100 WBC (Bld) 0.4 % 0-1 [facility] Bilirubin directOrdered By: Florentin Zamudio on 09-25-2024 Bilirubin.direct [Mass/Vol] 3.02 mg/dL High 0.00-0.30 [facility] Bilirubin, totalOrdered By: Florentin Zamudio on 09-25-2024 Bilirubin [Mass/Vol] 4.12 mg/dL High 0.00-1.30 [facility] CBC + DIFFon 09-25-2024 Baso # 0.02 x10EE3/UL Normal 0.00 - 0.10 [facility] Comment on above: Performed By: #### 2 [address] #### [place] [address] Basophils/100 WBC (Bld) 0.2 % Normal 0.0 - 2.0 [facility], [facility].; [facility], [employer]. Work Phone: Comment on above: Performed By: #### 2 64737 #### [facility],[address] [place] [address] CBC + DIFF Normal [facility] Comment on above: Result Comment: CBC- COMPLETE BLOOD COUNT Performed By: #### 2 [address] #### [address] [address] EO # 0.06 x10EE3/UL Normal 0.00 - 0.50 [facility] Comment on above: Performed By: #### 2 [address]84 #### [address] [address] Eosinophils/100 WBC (Bld) 0.6 % Normal 0.0 - 7.0 [facility].; [facility]. Work Phone: Comment on above: Performed By: #### 2 18789 #### [facility],[address] [place], [place] [id number] Erythrocyte distribution width (RBC) [Ratio] 12.7 % Normal 12.0 - 15.6 [facility].; [employer] [facility]. Work Phone: Comment on above: Performed By: #### 2 [address] #### [place] [phone] Hematocrit (Bld) [Volume fraction] 32.8 % Low 34.0 - 46.0 [facility].; [facility], [place]. Work Phone: Comment on above: Performed By: #### 2 [address] #### [place] [phone] Hemoglobin (Bld) [Mass/Vol] 11.4 g/dL Low 12.0 - 16.0 [facility] [employer], [place]. Work Phone: Comment on above: Performed By: #### 2 65866 #### [place] [id number] Lymph # 1.71 x10EE3/UL Normal 0.80 - 2.80 [facility] Comment on above: Performed By: #### 2 46039 #### [address] [address] Lymphocytes/100 WBC (Bld) 17.1 % Low 20.0 - 45.0 [facility].; [facility] Work Phone: Comment on above: Performed By: #### 2 51155 #### [address] [address] MANUAL DIFF N/A Normal [facility].; [employer] [employer]. Work Phone: Comment on above: Performed By: #### 2 61645 #### [place] [phone] MCH (RBC) [Entitic mass] 32 pg Normal 27 - 33 [facility].; [place] [employer] [facility], [place]. Work Phone: Comment on above: Performed By: #### 2 42730 #### [facility],[address] [place] [address] MCHC 35 X10 3 Normal 32 - 36 [facility] Comment on above: Performed By: #### 2 34273 #### [facility],[address] [place] [address] MCV (RBC) [Entitic vol] 92 fL Normal 80 - 99 [facility]; [facility] Work Phone: Comment on above: Performed By: #### 2 62891 #### [place] [address] Luquillo # 0.65 x10EE3/UL Normal 0.20 - 1.00 [facility] Comment on above: Performed By: #### 2 34038 #### [place] [address] MONOS % 6.5 % Normal 0.0 - 10.0 [facility] Comment on above: Performed By: #### 2 61513 #### [place] [address] Morphology Cy (Bld) [Interp] N/A Normal [facility]; [facility] Work Phone: Comment on above: Performed By: #### 2 61782 #### [place] [address] Neut # 7.54 x10EE3/UL High 1.50 - 7.10 [facility] Comment on above: Performed By: #### 2 31736 #### [place] [address]8714 Neutrophils/100 WBC (Bld) 75.5 % Normal 46.0 - 76.0 [facility].; [facility] HospitalRedmere Technology [facility] Work Phone: Comment on above: Performed By: #### 2 33208 #### [facility],[address] [place] [address] PLATELET 184 x10EE3/UL Normal 150 - 450 [facility] Comment on above: Performed By: #### 2 09293 #### [facility],[address] [place] [address] Platelet mean volume (Bld) [Entitic vol] 8.4 fL Normal 6.6 - 10.5 [employer]; [employer] [facility] CenterB[facility]esix Work Phone: Comment on above: Result Comment: AUTO MATED DIFFERENTIAL Performed By: #### 2 68667 #### [facility],[address] [place] [address] RBC 3.55 x 10EE6/UL Low 4.10 - 5.30 [facility] Comment on above: Performed By: #### 2 10983 #### [facility],[address] [place] [address] WBC 10.0 x 10EE3/UL Normal 4.5 - 10.8 [facility] Comment on above: Performed By: #### 2 15072 #### [facility],[address] [place] [address] CBC W/Diff, Automatedon 09-08 Absolute Lymph 1.62 X10 3/uL Normal 0.83-4.51 [facility] Comment on above: Performed By: #### L 100.0100, L501.2450, L503.6005, L500.2500, L500.3400 ####[facility] [address] [place], [address] Absolute Neut 8.0 X10 3/uL High 2.0-7.7 [facility] Comment on above: Performed By: #### L 100.0100, L501.2450, L503.6005, L500.2500, L500.3400 ####[facility] [address] [place], [address] Basophils/100 WBC (Bld) 0.4 % Normal 0-1 [facility] Comment on above: Performed By: #### L 100.0100, L501.2450, L503.6005, L500.2500, L500.3400 ####[facility] [address] [place], [address] Eosinophils/100 WBC (Bld) 0.4 % Normal 0-5 [facility] Comment on above: Performed By: #### L 100.0100, L501.2450, L503.6005, L500.2500, L500.3400 ####[facility] [address] [place], [address] Erythrocyte distribution width (RBC) [Ratio] 13.0 % Normal 11.6-14.6 [facility] Comment on above: Performed By: #### L 100.0100, L501.2450, L503.6005, L500.2500, L500.3400 ####[facility] [address] [place], [address] Hematocrit (Bld) [Volume fraction] 34.0 % Low 37-47 [facility] Comment on above: Performed By: #### L 100.0100, L501.2450, L503.6005, L500.2500, L500.3400 ####[facility] [address] [place], [address] Hemoglobin (Bld) [Mass/Vol] 11.7 g/dL Low 12.0-15.0 [facility] Comment on above: Performed By: #### L 100.0100, L501.2450, L503.6005, L500.2500, L500.3400 ####[facility] [address] [place], [address] IG% 0.900 Normal 0.0-0.9 [facility] Comment on above: Result Comment: IG% - Immature Granulocytes (promyelocytes, myelocytes and metamyelocytes) > 1% indicates that a LEFT SHIFT is Present. Performed By: #### L 100.0100, L501.2450, L503.6005, L500.2500, L500.3400 ####[facility] [address] [place], [address] Lymphocytes/100 WBC (Bld) 15.8 % Low 19-41 [facility] Comment on above: Performed By: #### L 100.0100, L501.2450, L503.6005, L500.2500, L500.3400 ####[facility] [address] [place], [address] MCH (RBC) [Entitic mass] 31.2 pg Normal 27.0-32.0 [facility] Comment on above: Performed By: #### L 100.0100, L501.2450, L503.6005, L500.2500, L500.3400 ####[facility] [address] [place], [address] MCHC (RBC) [Mass/Vol] 34.4 g/dL Normal 32-36 [facility] Comment on above: Performed By: #### L 100.0100, L501.2450, L503.6005, L500.2500, L500.3400 ####[facility] [address] [place], [address] MCV (RBC) [Entitic vol] 90.7 fL Normal 81-99 [facility] Comment on above: Performed By: #### L 100.0100, L501.2450, L503.6005, L500.2500, L500.3400 ####[facility] [address] [place], [address] Monocytes/100 WBC (Bld) 4.9 % Normal 0-10 [facility] Comment on above: Performed By: #### L 100.0100, L501.2450, L503.6005, L500.2500, L500.3400 ####[facility] [address] [place], [address] Neutrophils/100 WBC (Bld) 77.6 % High 47-70 [facility] Comment on above: Performed By: #### L 100.0100, L501.2450, L503.6005, L500.2500, L500.3400 ####[facility] [address] [place], [address] Nucleated RBC (Bld) [#/Vol] 0 10*3/uL Normal 0-5 [facility] Comment on above: Performed By: #### L 100.0100, L501.2450, L503.6005, L500.2500, L500.3400 ####[facility] [address] [place], [address] Platelet mean volume (Bld) [Entitic vol] 10.4 fL Normal 6.2-12.0 [facility] Comment on above: Performed By: #### L 100.0100, L501.2450, L503.6005, L500.2500, L500.3400 ####[facility] [address] [place], [address] Platelets (Bld) [#/Vol] 177 10*3/uL Normal 150-450 [facility] Comment on above: Performed By: #### L 100.0100, L501.2450, L503.6005, L500.2500, L500.3400 ####[facility] [address] [place], [address] RBC (Bld) [#/Vol] 3.75 10*6/uL Low 4.2-5.4 [facility] Comment on above: Performed By: #### L 100.0100, L501.2450, L503.6005, L500.2500, L500.3400 ####[facility] [address] [place], [address] RDW SD 42.6 fl Normal 35.1-43.9 [facility] Comment on above: Performed By: #### L 100.0100, L501.2450, L503.6005, L500.2500, L500.3400 ####[facility] [address] [place], [address] WBC (Bld) [#/Vol] 10.2 10*3/uL Normal 4.4-11.0 [facility] Comment on above: Performed By: #### L 100.0100, L501.2450, L503.6005, L500.2500, L500.3400 ####[facility] [address] [place], [address] CMP with eGFRon 09-25-2024 AGE 24 years Normal [facility] Comment on above: Performed By: #### 2 49153 #### [facility],[address] [place] [address] Albumin [Mass/Vol] 2.3 g/dL Low 3.4 - 5.0 [facility], [facility].; [facility] HospitalRedmere Technology [facility]. Work Phone: Comment on above: Performed By: #### 2 34542 #### [facility],[address] [place] [address] Albumin/Globulin [Mass ratio] 0.7 {ratio} Low 0.9 - 1.6 [facility] Comment on above: Performed By: #### 2 70378 #### [facility],[address] [place] [address] ALK PHOS 133 U/L High 46 - 116 [facility] Comment on above: Performed By: #### 2 55238 #### [facility],[address] [place] [address] ALT [Catalytic activity/Vol] 97 U/L High 16 - 63 [facility], [facility].; [facility], Inc[facility] Work Phone: Comment on above: Performed By: #### 2 58153 #### [facility],[address] [place] [address] Anion gap [Moles/Vol] 12 mmol/L Normal 10 - 20 [facility], [facility].; [facility], [facility] Work Phone: Comment on above: Performed By: #### 2 95619 #### [facility],[address] [place] [address] AST [Catalytic activity/Vol] 69 U/L High 13 - 39 [facility], [facility].; [facility], Inc[facility] Work Phone: Comment on above: Performed By: #### 2 61291 #### [address] [address] B/C RATIO 13 ratio Normal 0 - 30 [facility] Comment on above: Performed By: #### 2 60820 #### [address] [address] Bilirubin [Mass/Vol] 4.1 mg/dL High 0.2 - 1.0 [facility], [facility].; [employer] Work Phone: Comment on above: Performed By: #### 2 87517 #### [facility],[address] [place] [address] Calcium [Mass/Vol] 8.6 mg/dL Normal 8.5 - 10.1 [facility], [facility].; [facility], [employer]. Work Phone: Comment on above: Performed By: #### 2 33328 #### [facility],[address] [place] [address] Chloride [Moles/Vol] 106 mmol/L Normal 98 - 107 [facility], [facility].; [facility], [place]. Work Phone: Comment on above: Performed By: #### 2 95697 #### [facility],[address] [place] [address] CMP with eGFR Normal [facility] Comment on above: Result Comment: COMP REHENSIVE METABOLIC PANEL Performed By: #### 2 44925 #### [facility],[address] [place] [address] CO2 [Moles/Vol] 26.0 mmol/L Normal 21.0 - 32.0 [facility] HospitalBiodesix; [place] [employer] [facility] CenterP[facility]. Work Phone: Comment on above: Performed By: #### 2 56540 #### [facility],[address] [place], [place] [address] Creatinine [Mass/Vol] 0.55 mg/dL Normal 0.55 - 1.[address] [facility] CenterBiodesix; [employer] [facility] CenterPushing Innovation. Work Phone: Comment on above: Performed By: #### 2 28631 #### [address] [address] GFR/1.73 sq M.predicted among non-blacks MDRD (S/P/Bld) [Vol rate/Area] mL/min/{1.73_m2} Normal 60 - 999 [facility] Comment on above: Performed By: #### 2 20630 #### [facility],[address] [place] [address] Result Comment: ACCO RDING TO THE NATIONAL KIDNEY DISEASE EDUCATION PROGRAM(NKDE), A NORMAL eGFR IS A VALUE GREATER THAN OR EQUAL TO 60 ML/MIN/1.73 SQ METERS. CHRONIC KIDNEY DISEASE: <60mL/MIN/1.73 SQ METERS KIDNEY FAILURE: <15mL/MIN/1.73 SQ METERS THIS TEST SHOULD ONLY BE USED FOR PATIENTS 18 YEARS OF AGE AND OLDER. Globulin (S) [Mass/Vol] 3.5 g/dL Normal 1.5 - 3.8 [facility] HospitalBiod[facility]; [employer] [facility], Inc[facility] Work Phone: Comment on above: Performed By: #### 2 16993 #### [facility],[address] [place] [address] Glucose [Mass/Vol] 76 mg/dL Normal 74 - 106 [facility], [facility].; [facility], Inc[facility] Work Phone: Comment on above: Performed By: #### 2 31858 #### [facility],[address] [place] [address] Potassium [Moles/Vol] 3.8 mmol/L Normal 3.5 - 5.1 [facility], [facility].; [facility], Inc[facility] Work Phone: Comment on above: Performed By: #### 2 96592 #### [address] [address] Protein [Mass/Vol] 5.8 g/dL Low 6.4 - 8.2 [facility], [facility].; [employer] Work Phone: Comment on above: Performed By: #### 2 28830 #### [address] [address] Sodium [Moles/Vol] 140 mmol/L Normal 136 - 145 [facility], [facility].; [employer] Work Phone: Comment on above: Performed By: #### 2 27701 #### [address] [address] Urea nitrogen [Mass/Vol] 7 mg/dL Normal 7 - 18 [facility], [facility].; [employer] Work Phone: Comment on above: Performed By: #### 2 35206 #### [address] [address] AGE 24 years Normal [facility] Comment on above: Performed By: #### 2 05126 #### [facility],[address] [place] [address]199 Albumin [Mass/Vol] 2.7 g/dL Low 3.4 - 5.0 [facility]; [facility] Work Phone: Comment on above: Performed By: #### 2 48428 #### [facility],[address] [place] [address] Albumin/Globulin [Mass ratio] 0.7 {ratio} Low 0.9 - 1.6 [facility] Comment on above: Performed By: #### 2 80045 #### [facility],[address] [place] [address] ALK PHOS 156 U/L High 46 - 116 [facility] Comment on above: Performed By: #### 2 55596 #### [address] [address] ALT [Catalytic activity/Vol] 116 U/L High 16 - 63 [facility]; [facility], [facility] Work Phone: Comment on above: Performed By: #### 2 92208 #### [facility],[address] [place] [address] Anion gap [Moles/Vol] 14 mmol/L Normal 10 - 20 [facility]; [facility], [facility] Work Phone: Comment on above: Performed By: #### 2 63185 #### [address] [address] AST [Catalytic activity/Vol] 82 U/L High 13 - 39 [facility]; [facility]. Work Phone: Comment on above: Performed By: #### 2 73678 #### [address] [address] B/C RATIO 11 ratio Normal 0 - 30 [facility] Comment on above: Performed By: #### 2 08400 #### [facility],[address] [place] [address] Bilirubin [Mass/Vol] 4.2 mg/dL High 0.2 - 1.0 [facility], Inc.; [place] [employer] [facility], [place]. Work Phone: Comment on above: Performed By: #### 2 16266 #### [facility],[address] [place] [address] Calcium [Mass/Vol] 8.8 mg/dL Normal 8.5 - 10.1 [facility], [facility].; [employer], [place]. Work Phone: Comment on above: Performed By: #### 2 24479 #### [facility],[address] [place] [address] Chloride [Moles/Vol] 101 mmol/L Normal 98 - 107 [facility], [facility].; [employer], [place]. Work Phone: Comment on above: Performed By: #### 2 85223 #### [facility],[address] [place] [address]489 CMP with eGFR Normal [facility] Comment on above: Result Comment: COMP REHENSIVE METABOLIC PANEL Performed By: #### 2 13900 #### [address] [address] CO2 [Moles/Vol] 24.2 mmol/L Normal 21.0 - 32.0 [facility], [facility].; [employer] Work Phone: Comment on above: Performed By: #### 2 22026 #### [facility],[address] [place] [address] Creatinine [Mass/Vol] 0.64 mg/dL Normal 0.55 - 1.02 [facility], [facility].; [employer] Work Phone: Comment on above: Performed By: #### 2 29913 #### [address] [address] GFR/1.73 sq M.predicted among non-blacks MDRD (S/P/Bld) [Vol rate/Area] mL/min/{1.73_m2} Normal 60 - 999 [facility] Comment on above: Performed By: #### 2 93483 #### [address] [address] Result Comment: ACCO RDING TO THE NATIONAL KIDNEY DISEASE EDUCATION PROGRAM(NKDE), A NORMAL eGFR IS A VALUE GREATER THAN OR EQUAL TO 60 ML/MIN/1.73 SQ METERS. CHRONIC KIDNEY DISEASE: <60mL/MIN/1.73 SQ METERS KIDNEY FAILURE: <15mL/MIN/1.73 SQ METERS THIS TEST SHOULD ONLY BE USED FOR PATIENTS 18 YEARS OF AGE AND OLDER. Globulin (S) [Mass/Vol] 3.8 g/dL Normal 1.5 - 3.8 [facility], [facility].; [facility] HospitalRedmere Technology [facility] Work Phone: Comment on above: Performed By: #### 2 82922 #### [address] [address] Glucose [Mass/Vol] 111 mg/dL High 74 - 106 [facility].; [facility], [employer]. Work Phone: Comment on above: Performed By: #### 2 72227 #### [address] [address] Potassium [Moles/Vol] 3.4 mmol/L Low 3.5 - 5.1 [facility].; [facility] HospitalP[facility] [employer]. Work Phone: Comment on above: Performed By: #### 2 40540 #### [address] [address] Protein [Mass/Vol] 6.5 g/dL Normal 6.4 - 8.2 [facility] HospitalRed[facility] Technology [facility].; [facility], Inc[facility] Work Phone: Comment on above: Performed By: #### 2 33624 #### [facility],[address] [place] [address] Sodium [Moles/Vol] 136 mmol/L Normal 136 - 145 [facility].; [facility] Work Phone: Comment on above: Performed By: #### 2 19002 #### [facility],[address] [place] [address] Carbon dioxide, total [Moles /volume] in Central venous bloodOrdered By: Florentin Zamudio on 09-25-2024 CO2 [Moles/Vol] 22.6 mmol/L 21.0-32.0 [facility] Chloride assayOrdered By: Roge Zamudio on 09-25-2024 Chloride [Moles/Vol] 104 mmol/L 98-108 [facility] ERCP Biliary/Pancreason 09-08 ERCP Biliary/Pancreas [facility] Imaging Services [address] [place] [address] ERCP Biliary/Pancreas MR#: [id number] Acct: [id number] Name: LUCY CROWLEY V Rep #: [id number] : 2000 F 24 From: Tony Cruz MD PCP: Dr. Heather Ruby DO Status: ADM IN Study: ERCP Biliary/Pancreas Date of Exam: 09/25/24 Exam# [id number] Ordering Dr: Ld Chacon DO EXAM: ERCP [...] of pancreatic and CBD stents. Reading Location: [facility] CC: Dr. 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 The esophagus was successfully [...] no post-sph (more content not included)... Normal [facility] Emergency Department Summary on 09-25-2024 Emergency Department Summary [facility] Medical Records Department [address] [place] [address] Emergency Department Summary 09/25/24 MR#: [id number] Acct: [id number] Name: LUCY CROWLEY V Rep #: [id number] : 2000 24 From: Florentin Zamudio DO PCP: Dr. Heather Ruby, DO Status:REG ER Location: ED HPI History of Present Illness Chief Complaint: Abd Pain Narrative Narrative: Chief complaint and HPI: Right upper quadrant with epigastric abdominal pain. 24-year-old female who is A1 who was induced on 09/26/2024 at 38.6 weeks and delivered via vaginal delivery who presents for right upper quadrant and epigastric pain from [facility]. She was a transfer. History taken by patient, medical record, Dr. Chacon. Patient states that she started having right upper quadrant/epigastric pain on Saturday. She went [facility] on in which they induced her [...] right upper quadrant and epigastric pain from [facility]. See HPI. Patient was induced secondary to her pain. She was found to have transaminitis with concern of choledocholithiasis, they spoke with Dr. Chacon with GI and patient was transferred to our hospital. The only issue was nobody in the emergency department was expecting her. I did speak to Dr. Friend personally as well as reviewed her outlying [...] will cover (more content not included)... Normal [facility] Eosinophil percentageOrdered By: Florentin Zamudio on 09-25-2024 Eosinophils/100 WBC (Bld) 0.4 % 0-5 [facility] Erythrocyte distribution wid th (RBC) [Ratio]Ordered By: Florentin [facility] health clinicmgKaren on 09-25-2024 Erythrocyte distribution width (RBC) [Entitic vol] 42.6 fL 35.1-43.9 [facility] Erythrocyte distribution wid th ratioOrdered By: [facility] HospitalOlga on 09-25-2024 Erythrocyte distribution width (RBC) [Ratio] 13.0 % 11.6-14.6 [facility] GFR/1.73 sq M.predicted nneka g non-blacks MDRD (S/P/Bld) [Vol rate/Area]Ordered By: Florentin Zamudio on 09-25-2024 Estimated GFR (MDRD) Non-Af Amer 123 >60 [facility] Comment on above: mL/min/1.73m2 CKD-EP I Creatinine Equation (2020) H AND P Exam - Hospitaliston 09-25-2024 H&P Exam - Hospitalist [facility] Medical Records Department [address] [place] [address] H P Exam - Hospitalist 09/25/24 1614 MR#: [id number] Acct: [id number] Name: LUCY CROWLEY V Rep #: [id number] : 2000 24 From: Radha Romano MD PCP: Dr. Heather Ruby, DO Status:REG [facility] [place] AC-TBA-1 HPI - General General Date of Admission: 09/25/24 Date of Service: 09/25/24 Chief Complaint: Epigastric pain. HPI Narrative The patient is a 24 y/o Mu-Ism F w/ PMHx: Biliary colic which from description has been ongoing for some time who presents to the [facility] ED on with history of being in [...] cramps prompting outside facility ED evaluation at [facility]. Patient was admitted and delivered a healthy infant with no concerns per discussion with patient and spouse as well as review of facility records. 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 Chacon who recommended ERCP and was under the impression patient was being transferred to [facility] for treatment but secondary to cost and [...] following ERCP per discussion with ED physician. [facility] Medical History (Updated 09/25/24 @ 16:28 by [...] pain or (more content not included)... Normal [facility] Hematocrit Auto (Bld) [Volum e fraction]Ordered By: Florentin Zamudio on 09-25-2024 Hematocrit (Bld) [Volume fraction] 34.0 % Low 37-47 [facility] Hemoglobin measurementOrdere d By: Florentin Zamudio on 09-25-2024 Hemoglobin (Bld) [Mass/Vol] 11.7 g/dL Low 12.0-15.0 [facility] Immature granulocytes/100 WB C Auto (Bld)Ordered By: Florentinsylvia Zamudio on 09-25-2024 Immature granulocytes/100 WBC (Bld) 0.900 % 0.0-0.9 [facility] Comment on above: IG% - Immature Granu locytes (promyelocytes, myelocytes and metamyelocytes) > 1% indicates that a LEFT SHIFT is Present. LIPASEon 09-25-2024 Lipase [Catalytic activity/Vol] 23.0 U/L Normal 15.0 - 78.0 [facility].; [facility] Work Phone: Comment on above: Result Comment: *PLE ASE NOTE THAT RANGES FOR LIPASE HAVE CHANGED OF 06/07/23 DUE TO AN ASSAY UPDATE BY THE ENGAGEMENT MGR.THE NEW ASSAY RANGE IS 6-250 U/L, WITH A REFERENCE RANGE OF 16-77 U/L. Performed By: #### 2 [id number] #### [facility],[address] [place] [address] Laboratory - Chemistry and C hemistry - challengeOrdered By: Florentin Zamudio on 09-25-2024 AST [Catalytic activity/Vol] 74 U/L High <32 [facility] Laboratory - Chemistry and C hemistry - challengeon 09-25-2024 Albumin [Mass/Vol] 0.7 g/dL Abnormal 0.9 - 1.6 [facility]; [employer] Work Phone: ALP [Catalytic activity/Vol] 156 U/L Abnormal 46 - 116 U/L [facility]; [place] [employer] [facility]. Work Phone: ALP [Catalytic activity/Vol] 133 U/L Abnormal 46 - 116 U/L [facility]; [employer]. Work Phone: Comprehensive metabolic 2000 panel CMP with eGFR Normal [facility]; [employer] Work Phone: GFR/1.73 sq M.predicted among blacks MDRD (S/P/Bld) [Vol rate/Area] mL/min/{1.73_m2} Normal 60 - 999 {ML/MINUTE} [facility].; [employer]. Work Phone: GFR/1.73 sq M.predicted MDRD (S/P/Bld) [Vol rate/Area] mL/min/{1.73_m2} Normal 60 - 999 {ML/MINUTE} [place] [employer] [facility].; [employer]. Work Phone: Urea nitrogen/Creatinine [Mass ratio] 11 {ratio} Normal 0 - 30 {ratio} [facility]; [employer]. Work Phone: Urea nitrogen/Creatinine [Mass ratio] 13 {ratio} Normal 0 - 30 {ratio} [place] [employer]. Work Phone: Laboratory - Hematology and Cell countson 09-25-2024 Basophils (Bld) [#/Vol] 0.02 {3/UL} Normal 0.00 - 0.10 {3/UL} [facility]; [employer]. Work Phone: CBC W Auto Differential panel (Bld) CBC + DIFF Normal [place] [employer]; [employer]. Work Phone: Eosinophils (Bld) [#/Vol] 0.06 {3/UL} Normal 0.00 - 0.50 {3/UL} [employer]. Work Phone: Lymphocytes (Bld) [#/Vol] 1.71 {3/UL} Normal 0.80 - 2.80 {3/UL} [employer]. Work Phone: MCHC (RBC) [Mass/Vol] 35 {X10_3} Normal 32 - 3 6 {X10_3} [place] [employer]. Work Phone: Monocytes (Bld) [#/Vol] 0.65 {3/UL} Normal 0.20 - 1.00 {3/UL} [place] [employer]. Work Phone: Monocytes/100 WBC (Bld) 6.5 % Normal 0.0 - 10.0 % [place] [employer] Work Phone: Neutrophils (Bld) [#/Vol] 7.54 {3/UL} Abnormal 1.50 - 7.10 {3/UL} [employer].; [employer]. Work Phone: Platelets (Bld) [#/Vol] 184 {3/UL} Normal 150 - 450 {3/UL} [employer].; [employer]. Work Phone: RBC (Bld) [#/Vol] 3.55 {6/UL} Abnormal 4.10 - 5.3 0 {6/UL} [employer].; [employer]. Work Phone: WBC (Bld) [#/Vol] 10.0 {3/UL} Normal 4.5 - 10.8 {3/UL} [employer].; [employer]. Work Phone: Lactic Acidon 09-25-2024 Lactate [Moles/Vol] mmol/L Normal 0.0-2.0 [facility] Comment on above: Order Comment: Y Performed By: #### L 100.0100, L501.2450, L503.6005, L500.2500, L500.3400 ####[facility] [address] [place], [place], [id number] Lactic acid measurementOrder ed By: Florentin Zamudio on 09-25-2024 Lactate [Moles/Vol] mmol/L 0.0-2.0 [facility] Lipaseon 09-25-2024 Lipase [Catalytic activity/Vol] 23 U/L Normal 13-75 [facility] Comment on above: Result Comment: Nicholas sood note: LIPASE revised reference range effective 22. New Lipase methodology. Expected to produce lower values than the previous assay method. NEW Reference Range: 13 - 75 U/L Performed By: #### L 100.0100, L501.2450, L503.6005, L500.2500, L500.3400 ####[facility] [address] [place], [place], [phone] Lipase measurementOrdered By : Florentin Zamudio on 09-25-2024 Lipase [Catalytic activity/Vol] 23 U/L 13-75 [facility] Comment on above: Please note:LIPASE r evised reference range effective 22. New Lipase methodology. Expected to produce lower values than the previous assay method. NEW Reference Range: 13 - 75 U/L Liver Profileon 09-25-2024 Albumin [Mass/Vol] 3.4 g/dL Low 3.5-5.0 [facility] Comment on above: Performed By: #### L 100.0100, L501.2450, L503.6005, L500.2500, L500.3400 ####[facility] [address] [place], [address] ALK PHOS 154 U/L High 35-104 [facility] Comment on above: Performed By: #### L 100.0100, L501.2450, L503.6005, L500.2500, L500.3400 ####[facility] [address] [place], [address] ALT [Catalytic activity/Vol] 95 U/L High <=34 [facility] Comment on above: Performed By: #### L 100.0100, L501.2450, L503.6005, L500.2500, L500.3400 ####[facility] [address] [place], [address] AST [Catalytic activity/Vol] 74 U/L High <=31 [facility] Comment on above: Performed By: #### L 100.0100, L501.2450, L503.6005, L500.2500, L500.3400 ####[facility] [address] [place], [address] Bilirubin [Mass/Vol] 4.12 mg/dL High 0.00-1.30 [facility] Comment on above: Performed By: #### L 100.0100, L501.2450, L503.6005, L500.2500, L500.3400 ####[facility] [address] [place], [address] Bilirubin.direct [Mass/Vol] 3.02 mg/dL High 0.00-0.30 [facility] Comment on above: Performed By: #### L 100.0100, L501.2450, L503.6005, L500.2500, L500.3400 ####[facility] [address] [place], [address] Globulin (S) [Mass/Vol] 2.8 g/dL Normal 2.2-4.[address] [facility] Comment on above: Performed By: #### L 100.0100, L501.2450, L503.6005, L500.2500, L500.3400 ####[facility] [address] [place], [address] T PROT 6.2 g/dL Normal 5.9-8.4 [facility] Comment on above: Performed By: #### L 100.0100, L501.2450, L503.6005, L500.2500, L500.3400 ####[facility] [address] [place], [address] Lymphocytes Auto (Unsp spec) [#/Vol]Ordered By: [facility] on 09-25-2024 Lymphocytes (Bld) [#/Vol] 1.62 10*3/uL 0.83-4.51 [facility] Lymphocytes/100 WBC Auto (Un sp spec)Ordered By: Florentin KlgeorginaSwift County Benson Health ServicesKaren on 09-25-2024 Lymphocytes/100 WBC (Bld) 15.8 % Low 19-41 [facility] MCV (mean corpuscular volume ) determinationOrdered By: [facility] SussexninoKaren on 09-25-2024 MCV (RBC) [Entitic vol] 90.7 fL 81-99 [facility] MR/CON.PCM.GIon 09-25-2024 MR/CON.PCM.GI [facility] Medical Records Department [address] [place] [address] Consultation - GI 09/25/24 1648 MR#: [id number] Acct: [id number] Name: LUCY CROWLEY V Rep #: [id number] : 2000 24 From: Ld Friend DO PCP: Dr. Heather Ruby, DO Status:[facility] Location: [place] [address] HPI Consult Data Date of Consult: 09/25/24 HPI Narrative Reason for Consultation: Choledocholithiasis HPI Narrative: LUCY CROWLEY is a 24 F who presents 24-year-old female who is A1 who was induced on 09/26/2024 at 38.6 weeks and delivered via vaginal delivery who presents for right upper quadrant and epigastric pain from [facility]. She was a transfer. History taken by patient, medical record, Dr. Chacon. Patient states that she started having right upper quadrant/epigastric pain on Saturday. She went to the [facility] hospital on in which they induced [...] transaminitis with a total bilirubin of 4.1. [facility] Medical History Biliary colic Home Medications ???Medication [...] 77.6 H, Lymph % (Auto) 15.8 L, Luquillo % (Auto) 4.9, Eos % (Auto) 0.4, [...] for some time who presents to the [facility] ED on with history of being in [...] will unde (more content not included)... Normal [facility] MR/POSTOP.ANEon 09-25-2024 MR/[facility]OP.[facility] Medical Records Department [address] [place] [address] Anesthesia Postop Eval I 09/25/241802 MR#: [id number] Acct: [id number] Name: LUCY CROWLEY V Rep #: [id number] : 2000 From: Saran Fragoso MD PCP: Dr. Heather Ruby, DO Status:ADM IN Y Race: C Location: [place] [address] Anesthesia: Postop Eval I Current Vital Signs [...] completed: Yes 09/25/241803 Date Saran Fragoso MD Cosign Signature: Date CC: Signed [facility] MR/[id number] 09-25-2024 MR/POSTOPAN2 [facility] Medical Records Department [address] [place] [address] Anesthesia Postop Eval II 09/25/241804 MR#: [id number] Acct: [id number] Name: LUCY CROWLEY V Rep #: [id number] : 2000 From: Saran Fragoso MD PCP: Dr. Heather Ruby, DO Status:ADM IN Y Race: C Location: MS3 [id number] Anesthesia Postop Eval I Sum Postop Eval [...] No Vomiting: No 09/25/24 1805 Date Saran Fragoso MD Cosigner Signature: Date CC: Signed Normal [facility] Mean corpuscular hemoglobin (MCH) determinationOrdered By: Florentin Zamudio on 09-25-2024 MCH (RBC) [Entitic mass] 31.2 pg 27.0-32.0 [facility] Mean corpuscular hemoglobin concentration (MCHC) determinationOrdered By: Florentin Zamudio on 09-25-2024 MCHC (RBC) [Mass/Vol] 34.4 g/dL 32-36 [facility] Mean platelet volume determi nationOrdered By: Florentin Zamudio on 09-25-2024 Platelet mean volume (Bld) [Entitic vol] 10.4 fL 6.2-12.0 [facility] Monocyte percentageOrdered B y: Florentin Zamudio on 09-25-2024 Monocytes/100 WBC (Bld) 4.9 % 0-10 [facility] Neutrophil percentageOrdered By: Florentin Zamudio on 09-25-2024 Neutrophils/100 WBC (Bld) 77.6 % High 47-70 [facility] No Panel Informationon 09-25 AGE 24 {years} Normal [employer] Work Phone: Nucleated red blood cell per centageOrdered By: Florentin Zamudio on 09-25-2024 Nucleated RBC/100 WBC (Bld) [Ratio] 0 % 0-5 [facility] Platelet countOrdered By: Roge Zamudio on 09-25-2024 Platelets (Bld) [#/Vol] 177 10*3/uL 150-450 [facility] Potassium (Unsp spec) [Mass/ Vol]Ordered By: Florentin Zamudio on 09-25-2024 Potassium [Moles/Vol] 3.6 mmol/L 3.3-5.1 [facility] RBC Auto (Bld) [#/Vol]Ordere d By: Florentin Zamudio on 09-25-2024 RBC (Bld) [#/Vol] 3.75 10*6/uL Low 4.2-5.4 [facility] Serum creatinine measurement (mass/volume)Ordered By: Florentin Zamudio on 09-25-2024 Creatinine [Mass/Vol] 0.70 mg/dL 0.70-1.20 [facility] Serum globulin measurementOr dered By: Florentin Zamudio on 09-25-2024 Globulin (S) [Mass/Vol] 2.8 g/dL 2.2-4.2 [facility] Serum glucose measurement (m ass/volume)Ordered By: Florentin Zamudio on 09-25-2024 Glucose [Mass/Vol] 108 mg/dL High 70-99 [facility] Serum or plasma alanine allan otransferase (ALT) measurementOrdered By: Florentin Zamudio on 09-25-2024 ALT [Catalytic activity/Vol] 95 U/L High <35 [facility] Serum or plasma albumin jeimy urement (mass/volume)Ordered By: Florentin Jones on 09-25-2024 Albumin [Mass/Vol] 3.4 g/dL Low 3.5-5.0 [facility] Serum or plasma alkaline chaka sphatase measurementOrdered By: Florentin Zamudio on 09-25-2024 ALP [Catalytic activity/Vol] 154 U/L High 35-104 [facility] Serum or plasma calcium jeimy urement (mass/volume)Ordered By: Florentin Jones on 09-25-2024 Calcium [Mass/Vol] 9.0 mg/dL 7.6-11.0 [facility] Serum or plasma urea nitroge n measurement (mass/volume)Ordered By: Florentin Zamudio on 09-25-2024 Urea nitrogen [Mass/Vol] 4 mg/dL 4-19 [facility] Sodium levelOrdered By: Augusto Zamudio on 09-25-2024 Sodium [Moles/Vol] 137 mmol/L 133-145 [facility] Total proteinOrdered By: Minh Zamudio on 09-25-2024 Protein [Mass/Vol] 6.2 g/dL 5.9-8.4 [facility] US RUQ (GB/PANCREAS)on 09-25 US RUQ (GB/PANCREAS) [place] [address] Patient: LUCY CROWLEY V. Phone#: : [phone] Age: 24 Gender: F Pt. Type: In Account: [id number] Location: 014 Ordering: BHUMI GURROLA Exam Date: 09/25/2024/9:09 Family Phys: IRINA ZAMORA Charge Code: 416083 Physician: Shannon Order #: [id number] Dose#: PROCEDURE: RUQ (GB) ULTRASOUND COMPARISON: [facility], US, RUQ (GB), 09/24/2024, 12:36. INDICATIONS: Recheck gallbladder [...] ESPINOZA MD ON 09/25/2024 AT 10:31 Normal [facility] White blood cell (WBC) count Ordered By: Florentin Zamudio on 09-25-2024 WBC (Bld) [#/Vol] 10.2 10*3/uL 4.4-11.0 [facility] AMYLASEon 09-24-2024 Amylase [Catalytic activity/Vol] 36 U/L Normal 25 - 115 [facility] Work Phone: Comment on above: Performed By: #### 2 14302 #### [place] [address] BB TYPE & SCREENon 5 ABO O Normal [facility] Comment on above: Performed By: #### 2 62505 #### [facility],[address] [place] [address] ANTIBODY SCR Negative Normal [facility] Comment on above: Performed By: #### 2 35609 #### [address] [address] BB TYPE & SCREEN Normal [facility] Comment on above: Result Comment: TYPE , Rh, AND SCREEN Performed By: #### 2 60572 #### [place] [address] Rh Nom (Bld) Positive Normal [facility].; [place] [employer] Work Phone: Comment on above: Performed By: #### 2 91339 #### [place] [address] CBC + DIFFon 09-24-2024 Basophils/100 WBC (Bld) 0.2 % Normal 0.0 - 2.0 [facility]; [facility] [employer] Work Phone: Comment on above: Performed By: #### 2 23191 #### [address] [address] Eosinophils/100 WBC (Bld) 0.9 % Normal 0.0 - 7.0 [facility] [employer].; [employer] Work Phone: Comment on above: Performed By: #### 2 87843 #### [place] [id number] Erythrocyte distribution width (RBC) [Ratio] 13.3 % Normal 12.0 - 15.6 [facility].; [employer]. Work Phone: Comment on above: Performed By: #### 2 50920 #### [address] [address] Hematocrit (Bld) [Volume fraction] 38.7 % Normal 34.0 - 46.0 [facility] [employer].; [employer]. Work Phone: Comment on above: Performed By: #### 2 50163 #### [address] [address] Hemoglobin (Bld) [Mass/Vol] 13.3 g/dL Normal 12.0 - 16.0 [facility], [facility]. Work Phone: Comment on above: Performed By: #### 2 76547 #### [address] [address] Lymphocytes/100 WBC (Bld) 19.0 % Low 20.0 - 45.0 [facility].; [facility], [facility]. Work Phone: Comment on above: Performed By: #### 2 60915 #### [address] [address] MANUAL DIFF N/A Normal [facility].; [place] [employer] [facility], [employer]. Work Phone: Comment on above: Performed By: #### 2 23853 #### [address] [address] MCH (RBC) [Entitic mass] 31 pg Normal 27 - 33 [facility].; [place] [employer] [facility], [employer]. Work Phone: Comment on above: Performed By: #### 2 63562 #### [address] [address] MCV (RBC) [Entitic vol] 91 fL Normal 80 - 99 H [facility].; [facility], [employer]. Work Phone: Comment on above: Performed By: #### 2 70187 #### [address] [address] Morphology Cy (Bld) [Interp] N/A Normal [facility].; [facility], [employer]. Work Phone: Comment on above: Performed By: #### 2 33408 #### [facility],[address] [place] [address] Neutrophils/100 WBC (Bld) 73.9 % Normal 46.0 - 76.0 [facility].; [facility] [employer]. Work Phone: Comment on above: Performed By: #### 2 98047 #### [facility],[address] [place] [address] Platelet mean volume (Bld) [Entitic vol] 8.3 fL Normal 6.6 - 10.5 [facility].; [facility] Work Phone: Comment on above: Result Comment: AUTO MATED DIFFERENTIAL Performed By: #### 2 57093 #### [address] [address] Baso # 0.02 x10EE3/UL Normal 0.00 - 0.10 [facility] Comment on above: Performed By: #### 2 54383 #### [address] [address] CBC + DIFF Normal [facility] Comment on above: Result Comment: CBC- COMPLETE BLOOD COUNT Performed By: #### 2 73563 #### [address] [address] EO # 0.07 x10EE3/UL Normal 0.00 - 0.50 [facility] Comment on above: Performed By: #### 2 51005 #### [address] [address] Lymph # 1.60 x10EE3/UL Normal 0.80 - 2.80 [facility] Comment on above: Performed By: #### 2 69956 #### [address] [address] MCHC 34 X10 3 Normal 32 - 36 [facility] Comment on above: Performed By: #### 2 23383 #### [facility],[address] [place] [address] Luquillo # 0.51 x10EE3/UL Normal 0.20 - 1.00 [facility] Comment on above: Performed By: #### 2 59810 #### [facility],[address] [place] [address] MONOS % 6.1 % Normal 0.0 - 10.0 [facility] Comment on above: Performed By: #### 2 74745 #### [facility],[address] [place] [address] Neut # 6.24 x10EE3/UL Normal 1.50 - 7.10 [facility] Comment on above: Performed By: #### 2 60865 #### [facility],[address] [place] [address] PLATELET 256 x10EE3/UL Normal 150 - 450 [facility] Comment on above: Performed By: #### 2 06366 #### [facility],[address] [place] [address] RBC 4.24 x 10EE6/UL Normal 4.10 - 5.30 [facility] Comment on above: Performed By: #### 2 22256 #### [facility],[address] [place] [address] WBC 8.5 x 10EE3/UL Normal 4.5 - 10.8 [facility] Comment on above: Performed By: #### 2 15602 #### [facility],[address] [place] [address] CMP with eGFRon 09-24-2024 AGE 24 years Normal [facility] Comment on above: Performed By: #### 2 59934 #### [facility],[address] [place] [address] Albumin [Mass/Vol] 2.8 g/dL Low 3.4 - 5.0 [facility].; [facility] Hospital[facility]. Work Phone: Comment on above: Performed By: #### 2 36400 #### [facility],[address] [place] [address] Albumin/Globulin [Mass ratio] 0.7 {ratio} Low 0.9 - 1.6 [facility] Comment on above: Performed By: #### 2 68695 #### [facility],[address] [place] [address] ALK PHOS 153 U/L High 46 - 116 [facility] Comment on above: Performed By: #### 2 80906 #### [facility],[address] [place] [address] ALT [Catalytic activity/Vol] 118 U/L High 16 - 63 [facility].; [facility], [employer]. Work Phone: Comment on above: Performed By: #### 2 22648 #### [facility],[address] [place] [address] Anion gap [Moles/Vol] 11 mmol/L Normal 10 - 20 [facility].; [facility] Work Phone: Comment on above: Performed By: #### 2 67133 #### [facility],[address] [place] [address] AST [Catalytic activity/Vol] 93 U/L High 13 - 39 [facility].; [facility] Hospital[facility]. Work Phone: Comment on above: Performed By: #### 2 25952 #### [address] [address] B/C RATIO 10 ratio Normal 0 - 30 [facility] Comment on above: Performed By: #### 2 89031 #### [facility],[address] [place] [address] Bilirubin [Mass/Vol] 4.0 mg/dL High 0.2 - 1.0 [facility], [facility].; [facility], [facility]. Work Phone: Comment on above: Performed By: #### 2 52739 #### [facility],[address] [place] [address] Calcium [Mass/Vol] 8.6 mg/dL Normal 8.5 - 10.1 [facility], [facility].; [facility], [employer]. Work Phone: Comment on above: Performed By: #### 2 60953 #### [facility],[address] [place] [address] Chloride [Moles/Vol] 104 mmol/L Normal 98 - 107 [facility].; [place] [employer] [facility], [employer]. Work Phone: Comment on above: Performed By: #### 2 21464 #### [facility],[address] [place] [address] CMP with eGFR Normal [facility] Comment on above: Result Comment: COMP REHENSIVE METABOLIC PANEL Performed By: #### 2 71930 #### [facility],[address] [place] [address] CO2 [Moles/Vol] 25.3 mmol/L Normal 21.0 - 32.0 [facility], [facility].; [place] [employer] Work Phone: Comment on above: Performed By: #### 2 16203 #### [facility],[address] [place] [address] Creatinine [Mass/Vol] 0.71 mg/dL Normal 0.55 - 1.02 [facility], [facility].; [facility] Work Phone: Comment on above: Performed By: #### 2 26388 #### [address] [address] GFR/1.73 sq M.predicted among non-blacks MDRD (S/P/Bld) [Vol rate/Area] mL/min/{1.73_m2} Normal 60 - 999 [facility] Comment on above: Performed By: #### 2 64924 #### [address] [address] Result Comment: ACCO RDING TO THE NATIONAL KIDNEY DISEASE EDUCATION PROGRAM(NKDE), A NORMAL eGFR IS A VALUE GREATER THAN OR EQUAL TO 60 ML/MIN/1.73 SQ METERS. CHRONIC KIDNEY DISEASE: <60mL/MIN/1.73 SQ METERS KIDNEY FAILURE: <15mL/MIN/1.73 SQ METERS THIS TEST SHOULD ONLY BE USED FOR PATIENTS 18 YEARS OF AGE AND OLDER. Globulin (S) [Mass/Vol] 3.9 g/dL High 1.5 - 3.8 H [facility].; [facility] Work Phone: Comment on above: Performed By: #### 2 40585 #### [address] [address] [address] Glucose [Mass/Vol] 77 mg/dL Normal 74 - 106 [facility]; [facility]. Work Phone: Comment on above: Performed By: #### 2 88539 #### [address] [address] Potassium [Moles/Vol] 3.7 mmol/L Normal 3.5 - 5.1 [facility].; [facility]. Work Phone: Comment on above: Performed By: #### 2 47349 #### [address] [address] Protein [Mass/Vol] 6.7 g/dL Normal 6.4 - 8.2 [facility].; [facility]. Work Phone: Comment on above: Performed By: #### 2 00801 #### [address],[place] [address] Sodium [Moles/Vol] 137 mmol/L Normal 136 - 145 [facility] Hospital[facility].; [place] [employer]. Work Phone: Comment on above: Performed By: #### 2 69791 #### [facility],[address] [place] [address] Urea nitrogen [Mass/Vol] 7 mg/dL Normal 7 - 18 [facility].; [place] [employer]. Work Phone: Comment on above: Performed By: #### 2 43129 #### [facility],[address] [place] [address] AGE 24 years Normal [facility] Comment on above: Performed By: #### 2 76161 #### [address] [address] Albumin/Globulin [Mass ratio] 0.7 {ratio} Low 0.9 - 1.6 [facility] Comment on above: Performed By: #### 2 16632 #### [address] [address] ALK PHOS 153 U/L High 46 - 116 [facility] Comment on above: Performed By: #### 2 87311 #### [address] [address] ALT [Catalytic activity/Vol] 129 U/L High 16 - 63 [facility].; [place] [employer]. Work Phone: Comment on above: Performed By: #### 2 57664 #### [address] [address] Anion gap [Moles/Vol] 12 mmol/L Normal 10 - 20 [facility] Center[facility].; [place] [employer]. Work Phone: Comment on above: Performed By: #### 2 63410 #### [facility],[address] [place] [address] AST [Catalytic activity/Vol] 103 U/L High 13 - 39 [facility].; [place] [employer] [facility], [employer]. Work Phone: Comment on above: Performed By: #### 2 47791 #### [facility],[address] [place] [address] B/C RATIO 12 ratio Normal 0 - 30 [facility] Comment on above: Performed By: #### 2 18895 #### [facility],[address] [place] [address] Bilirubin [Mass/Vol] 4.2 mg/dL High 0.2 - 1.0 [facility], [facility].; [place] [employer], [place]. Work Phone: Comment on above: Performed By: #### 2 57370 #### [address] [address] Calcium [Mass/Vol] 8.7 mg/dL Normal 8.5 - 10.1 [facility], [facility].; [employer], [place]. Work Phone: Comment on above: Performed By: #### 2 41260 #### [facility],[address] [place] [address] Chloride [Moles/Vol] 102 mmol/L Normal 98 - 107 [facility], [facility].; [place] [employer] [facility], [employer]. Work Phone: Comment on above: Performed By: #### 2 46159 #### [address] [address] CMP with eGFR Normal [facility] Comment on above: Result Comment: COMP REHENSIVE METABOLIC PANEL Performed By: #### 2 25915 #### [address] [address] CO2 [Moles/Vol] 26.8 mmol/L Normal 21.0 - 32.0 [facility] HospitalRed[facility].; [facility] Work Phone: Comment on above: Performed By: #### 2 84645 #### [address] [address] Creatinine [Mass/Vol] 0.60 mg/dL Normal 0.55 - 1.[address] [facility] CenterRed[facility].; [facility] Hospital[facility]. Work Phone: Comment on above: Performed By: #### 2 84813 #### [address] [address] GFR/1.73 sq M.predicted among non-blacks MDRD (S/P/Bld) [Vol rate/Area] mL/min/{1.73_m2} Normal 60 - 999 [facility] Comment on above: Performed By: #### 2 41601 #### [address] [address] Result Comment: ACCO RDING TO THE NATIONAL KIDNEY DISEASE EDUCATION PROGRAM(NKDE), A NORMAL eGFR IS A VALUE GREATER THAN OR EQUAL TO 60 ML/MIN/1.73 SQ METERS. CHRONIC KIDNEY DISEASE: <60mL/MIN/1.73 SQ METERS KIDNEY FAILURE: <15mL/MIN/1.73 SQ METERS THIS TEST SHOULD ONLY BE USED FOR PATIENTS 18 YEARS OF AGE AND OLDER. Globulin (S) [Mass/Vol] 4.0 g/dL High 1.5 - 3.8 H [facility].; [facility] Hospital[facility]. Work Phone: Comment on above: Performed By: #### 2 05851 #### [address] [address] Glucose [Mass/Vol] 80 mg/dL Normal 74 - 106 [facility] HospitalRed[facility].; [place] [employer] [facility] CenterP[facility]. Work Phone: Comment on above: Performed By: #### 2 32679 #### [address] [address] Potassium [Moles/Vol] 3.9 mmol/L Normal 3.5 - 5.1 [facility] Center[facility].; [facility], [employer]. Work Phone: Comment on above: Performed By: #### 2 10508 #### [facility],[address] [place] [address] Protein [Mass/Vol] 6.8 g/dL Normal 6.4 - 8.2 [facility], [facility].; [facility], [employer]. Work Phone: Comment on above: Performed By: #### 2 14663 #### [facility],[address] [place] [address] AGE 24 years Normal [facility] Comment on above: Performed By: #### 2 50001 #### [address] [address] Albumin [Mass/Vol] 2.9 g/dL Low 3.4 - 5.0 [facility].; [place] [employer] [facility], [employer]. Work Phone: Comment on above: Performed By: #### 2 62576 #### [address] [address] Albumin/Globulin [Mass ratio] 0.7 {ratio} Low 0.9 - 1.6 [facility] Comment on above: Performed By: #### 2 38830 #### [facility],[address] [place] [address] ALK PHOS 155 U/L High 46 - 116 [facility] Comment on above: Performed By: #### 2 06334 #### [address] [address] ALT [Catalytic activity/Vol] 137 U/L High 16 - 63 [facility], [facility].; [place] [employer], [employer]. Work Phone: Comment on above: Performed By: #### 2 19450 #### [facility],[address] [place] [address] Anion gap [Moles/Vol] 13 mmol/L Normal 10 - 20 [facility].; [facility], [facility]. Work Phone: Comment on above: Performed By: #### 2 81326 #### [facility],[address] [place] [address] AST [Catalytic activity/Vol] 131 U/L High 13 - 39 [facility], [facility].; [facility], Inc[employer] Work Phone: Comment on above: Performed By: #### 2 44985 #### [address] [address] B/C RATIO 14 ratio Normal 0 - 30 [facility] Comment on above: Performed By: #### 2 43684 #### [address] [address] Bilirubin [Mass/Vol] 4.8 mg/dL High 0.2 - 1.0 [facility].; [facility], [employer]. Work Phone: Comment on above: Performed By: #### 2 15174 #### [facility],[address] [place] [address] Calcium [Mass/Vol] 9.2 mg/dL Normal 8.5 - 10.1 [facility].; [facility], [facility]. Work Phone: Comment on above: Performed By: #### 2 56574 #### [facility],[address] [place] [address] CMP with eGFR Normal [facility] Comment on above: Result Comment: COMP REHENSIVE METABOLIC PANEL Performed By: #### 2 73255 #### [facility],[address] [place] [address] CO2 [Moles/Vol] 24.8 mmol/L Normal 21.0 - 32.0 [facility] HospitalRed[facility].; [facility] HospitalP[facility] [employer] Work Phone: Comment on above: Performed By: #### 2 61224 #### [address] [address] Creatinine [Mass/Vol] 0.63 mg/dL Normal 0.55 - 1.[address] [facility] CenterRed[facility] Technology [facility].; [facility] HospitalP[facility] [employer]. Work Phone: Comment on above: Performed By: #### 2 58237 #### [address] [address] GFR/1.73 sq M.predicted among non-blacks MDRD (S/P/Bld) [Vol rate/Area] mL/min/{1.73_m2} Normal 60 - 999 [facility] Comment on above: Performed By: #### 2 14485 #### [address] [address] Result Comment: ACCO RDING TO THE NATIONAL KIDNEY DISEASE EDUCATION PROGRAM(NKDE), A NORMAL eGFR IS A VALUE GREATER THAN OR EQUAL TO 60 ML/MIN/1.73 SQ METERS. CHRONIC KIDNEY DISEASE: <60mL/MIN/1.73 SQ METERS KIDNEY FAILURE: <15mL/MIN/1.73 SQ METERS THIS TEST SHOULD ONLY BE USED FOR PATIENTS 18 YEARS OF AGE AND OLDER. Globulin (S) [Mass/Vol] 4.4 g/dL High 1.5 - 3.8 [facility] HospitalRed[facility].; [facility] HospitalRed[facility] Work Phone: Comment on above: Performed By: #### 2 55369 #### [address] [address] Glucose [Mass/Vol] 94 mg/dL Normal 74 - 106 [facility] HospitalRed[facility]; [place] [employer] [facility] CenterP[facility]. Work Phone: Comment on above: Performed By: #### 2 11681 #### [address] [address] Protein [Mass/Vol] 7.3 g/dL Normal 6.4 - 8.2 [facility].; [facility] HospitalP[facility]. Work Phone: Comment on above: Performed By: #### 2 77363 #### [address] [address] Sodium [Moles/Vol] 138 mmol/L Normal 136 - 145 [facility]; [facility] HospitalP[facility]. Work Phone: Comment on above: Performed By: #### 2 95637 #### [address] [address] Urea nitrogen [Mass/Vol] 9 mg/dL Normal 7 - 18 [facility]; [facility], [employer]. Work Phone: Comment on above: Performed By: #### 2 19496 #### [address] [address] LDHon 09-24-2024 LDH 178 U/L Normal 81 - 234 [facility] Comment on above: Performed By: #### 2 89663 #### [address] [address] LIPASEon 09-24-2024 Lipase [Catalytic activity/Vol] 22.0 U/L Normal 15.0 - 78.0 [facility]; [facility] HospitalRed[facility] Work Phone: Comment on above: Result Comment: *PLE ASE NOTE THAT RANGES FOR LIPASE HAVE CHANGED OF 06/07/23 DUE TO AN ASSAY UPDATE BY THE ENGAGEMENT MGR.THE NEW ASSAY RANGE IS 6-250 U/L, WITH A REFERENCE RANGE OF 16-77 U/L. Performed By: #### 2 64906 #### [place] [id number] Laboratory - Blood bankon ABO group Nom (Bld) O Normal [facility]; [facility] Work Phone: Blood group antibody screen Ql Negative Normal [facility]; [facility] HospitalRed[facility] Work Phone: Blood type and Indirect antibody screen panel (Bld) Normal [facility]; [facility] Work Phone: Laboratory - Chemistry and C hemistry - challengeon 09-24-2024 Albumin [Mass/Vol] 0.7 g/dL Abnormal 0.9 - 1.6 [facility]; [facility] Work Phone: ALP [Catalytic activity/Vol] 155 U/L Abnormal 46 - 116 U/L [facility]; [facility] Work Phone: ALP [Catalytic activity/Vol] 153 U/L Abnormal 46 - 116 U/L [facility]; [facility] Work Phone: Comprehensive metabolic 2000 panel CMP with eGFR Normal [facility]; [facility] Work Phone: Creatinine [Mass/Vol] 96.76 mg/dL Normal [facility]; [facility] HospitalRed[facility] Work Phone: GFR/1.73 sq M.predicted among blacks MDRD (S/P/Bld) [Vol rate/Area] mL/min/{1.73_m2} Normal 60 - 999 {ML/MINUTE} [facility]; [facility] HospitalRed[facility] Work Phone: GFR/1.73 sq M.predicted MDRD (S/P/Bld) [Vol rate/Area] mL/min/{1.73_m2} Normal 60 - 999 {ML/MINUTE} [facility]; [facility] Work Phone: LDH Lactate to pyruvate reaction [Catalytic activity/Vol] 178 U/L Normal 81 - 234 U/L [facility] HospitalRed[facility]; [facility] HospitalRed[facility] Technology Inc[employer] Work Phone: Protein (24H U) [Mass/Vol] 17.80 mg/dL Abnormal 0.00 - 10.00 mg/dL [place] [employer] [facility] CenterP[facility]; [employer] Work Phone: Urea nitrogen/Creatinine [Mass ratio] 14 {ratio} Normal 0 - 30 {ratio} [place] [employer] [facility].; [employer]. Work Phone: Urea nitrogen/Creatinine [Mass ratio] 12 {ratio} Normal 0 - 30 {ratio} [employer]. Work Phone: Urea nitrogen/Creatinine [Mass ratio] 10 {ratio} Normal 0 - 30 {ratio} [employer].; [employer]. Work Phone: Laboratory - Hematology and Cell countson 09-24-2024 Basophils (Bld) [#/Vol] 0.02 {3/UL} Normal 0.00 - 0.10 {3/UL} [employer].; [employer]. Work Phone: CBC W Auto Differential panel (Bld) CBC + DIFF Normal [employer]; [employer] Work Phone: Eosinophils (Bld) [#/Vol] 0.07 {3/UL} Normal 0.00 - 0.50 {3/UL} [employer].; [employer]. Work Phone: Lymphocytes (Bld) [#/Vol] 1.60 {3/UL} Normal 0.80 - 2.80 {3/UL} [employer].; [employer]. Work Phone: MCHC (RBC) [Mass/Vol] 34 {X10_3} Normal 32 - 3 6 {X10_3} [employer].; [employer]. Work Phone: Monocytes (Bld) [#/Vol] 0.51 {3/UL} Normal 0.20 - 1.00 {3/UL} [place] [employer].; [employer]. Work Phone: Monocytes/100 WBC (Bld) 6.1 % Normal 0.0 - 10.0 % [facility] [employer], [place]. Work Phone: Neutrophils (Bld) [#/Vol] 6.24 {3/UL} Normal 1.50 - 7.10 {3/UL} [employer].; [employer]. Work Phone: Platelets (Bld) [#/Vol] 256 {3/UL} Normal 150 - 450 {3/UL} [place] [employer].; [employer], [place]. Work Phone: RBC (Bld) [#/Vol] 4.24 {6/UL} Normal 4.10 - 5.3 0 {6/UL} [employer].; [employer], [place]. Work Phone: WBC (Bld) [#/Vol] 8.5 {3/UL} Normal 4.5 - 10.8 {3/UL} [employer].; [employer] Work Phone: No Panel Informationon 09-24 AGE 24 {years} Normal [place] [employer] [facility] CenterP[facility].; [employer]. Work Phone: URIC ACIDon 09-24-2024 Urate [Mass/Vol] 3.9 mg/dL Normal 2.6 - 6.0 [place] [employer].; [employer]. Work Phone: Comment on above: Performed By: #### 2 06652 #### [facility],[address] [place] [address] URINE CREATININE AND PROTEIN RATIOon 09-24-2024 CREATININE UR 96.76 mg/dl Normal [facility] Comment on above: Performed By: #### 2 46753 #### [facility],[address] [place] [address] PC RATIO 0.18 mg/dL Normal 0.00 - 10.00 [facility] [employer].; [facility]. Work Phone: Comment on above: Performed By: #### 2 28289 #### [facility],[address] [place] [address] Protein (U) [Mass/Vol] 17.80 mg/dL High 0.00 - 10.00 [facility] Comment on above: Performed By: #### 2 69627 #### [facility],[address] [place] [address] US RUQ (GB/PANCREAS)on 09-24 US RUQ (GB/PANCREAS) [address] [address] Patient: LUCY CROWLEY V. Phone#: : [phone] Age: 24 Gender: F Pt. Type: In Account: [id number] Location: [facility] Ordering: MISENHEIMER EDUARDOTAIN Exam Date: 09/24/2024/12:36 Family Phys: IRINA ZAMORA Charge Code: 186882 Physician: Shannon Order #: [id number] Dose#: PROCEDURE: RUQ (GB) ULTRASOUND COMPARISON: None. INDICATIONS: Jaundice FINDINGS: LIVER: Mild intrahepatic ductal dilatation.. Normal size and echotexture. No significant masses. BILIARY: Numerous shadowing stones layering in the gallbladder. There is sludge in the gallbladder. Gallbladder wall measures 0.2 cm. Common bile duct measures 0.5 cm. Land Lease Information Clerk stone measures 0.5 cm. PANCREAS: Pancreas is [...] ANNE MD ON 09/24/2024 AT 13:27 Normal [facility] CBC W Auto Differential pane l (Bld)on 08-15-2023 Basophils (Bld) [#/Vol] 0.03 10*3/uL Normal <=0.70 [facility] Comment on above: Performed By: #### 5 7021-8 #### [address] [place] [address] Mechanical Field Engineer - Scarlett [employer] [id number] Basophils/100 WBC (Bld) 0.3 % Normal <=2.0 [facility] Comment on above: Performed By: #### 5 7021-8 #### [address] [facility] [place] [address] Mechanical Field Engineer - Scarlett Lopez CLIA [id number] Eosinophils (Bld) [#/Vol] 0.17 10*3/uL Normal <=0.70 [facility] Comment on above: Performed By: #### 5 7021-8 #### [place] [address] [place] [address] Mechanical Field Engineer - Scarlett Lopez CLIA [id number] Eosinophils/100 WBC (Bld) 1.5 % Normal <=10.0 [facility] Comment on above: Performed By: #### 5 7021-8 #### [address] [place] [address] Mechanical Field Engineer - [place] [employer] [id number] Erythrocyte distribution width (RBC) [Entitic vol] 36.7 fL Normal 36.4-46.3 [facility] Comment on above: Performed By: #### 5 7021-8 #### [address] [place] [address] Mechanical Field Engineer - [place]lett [employer] [id number] Hematocrit (Bld) [Volume fraction] 38.9 % Normal 37.0-47.0 [facility] Comment on above: Performed By: #### 5 7021-8 #### [address] [place] [address] Mechanical Field Engineer - [place] [employer] [id number] Hemoglobin (Bld) [Mass/Vol] 13.7 g/dL Normal 12.0-16.0 [facility] Comment on above: Performed By: #### 5 7021-8 #### [place] [address] [place] [address] Mechanical Field Engineer - [place] [employer] [id number] Immature granulocytes (Bld) [#/Vol] 0.03 10*3/uL Normal <=0.10 [facility] Comment on above: Performed By: #### 5 7021-8 #### [place] [address] [place] [address] Mechanical Field Engineer - [place] [employer] [id number] Immature granulocytes/100 WBC (Bld) 0.30 % Normal <=1.50 [facility] Comment on above: Performed By: #### 5 7021-8 #### [place] [address] [place] [address] Mechanical Field Engineer - [place]lett [employer] [id number] Lymphocytes (Bld) [#/Vol] 2.18 10*3/uL Normal 1.20-3.40 [facility] Comment on above: Performed By: #### 5 7021-8 #### [address] [place] [address] Mechanical Field Engineer - [place] [employer] [id number] Lymphocytes/100 WBC (Bld) 19.4 % Low 20.0-40.0 [facility] Comment on above: Performed By: #### 5 7021-8 #### [address] [facility] [place] [address] Mechanical Field Engineer - [place]lett [employer] [id number] MCH (RBC) [Entitic mass] 30.0 pg Normal 27.0-31.0 [facility] Comment on above: Performed By: #### 5 7021-8 #### [address] [facility] [place] [address] Mechanical Field Engineer - [place]lett [employer] [id number] MCHC (RBC) [Mass/Vol] 35.2 g/dL Normal 32.0-36.0 [facility] Comment on above: Performed By: #### 5 7021-8 #### [address] [place] [address] Mechanical Field Engineer - Scar[place] Lopez CLIA [id number] MCV (RBC) [Entitic vol] 85.1 fL Normal 80.0-100.0 [facility] Comment on above: Performed By: #### 5 7021-8 #### [address] [place] [address] Mechanical Field Engineer - Scarlett Lopez CLIA [id number] Monocytes (Bld) [#/Vol] 0.61 10*3/uL High 0.10-0.60 [facility] Comment on above: Performed By: #### 5 7021-8 #### [address] [place] [address] Mechanical Field Engineer - Scarlett Lopez CLIA [id number] Monocytes/100 WBC (Bld) 5.4 % Normal <=8.0 [facility] Comment on above: Performed By: #### 5 7021-8 #### [address] [place] [address] Mechanical Field Engineer - Scarlett Lopez CLIA [id number] Neutrophils (Bld) [#/Vol] 8.21 10*3/uL High 1.40-6.50 [facility] Comment on above: Performed By: #### 5 7021-8 #### [address] [place] [address] Mechanical Field Engineer - Scarlett Lopez CLIA [id number] Neutrophils/100 WBC (Bld) 73.1 % High 50.0-70.0 [facility] Comment on above: Performed By: #### 5 7021-8 #### [address] [place] [address] Mechanical Field Engineer - Scarlett Lopez CLIA [id number] Nucleated RBC (Bld) [#/Vol] 0.00 10*3/uL Normal <=0.10 [facility] Comment on above: Performed By: #### 5 7021-8 #### [facility] [address] [facility]. [place] [address] Mechanical Field Engineer - Scarlett ALLAN [id number] Platelet mean volume (Bld) [Entitic vol] 9.6 fL Normal 9.0-13.0 [facility] Comment on above: Performed By: #### 5 7021-8 #### [facility] [address] [place] [address] Mechanical Field Engineer - [place]lett ALLAN [id number] Platelets (Bld) [#/Vol] 252 10*3/uL Normal 130-400 [facility] Comment on above: Performed By: #### 5 7021-8 #### [address] [place] [address] Mechanical Field Engineer - Scarlett ALLAN [id number] RBC (Bld) [#/Vol] 4.57 10*6/uL Normal 4.00-6.30 [facility] Comment on above: Performed By: #### 5 7021-8 #### [facility] [address] [facility]. [place] [address] Mechanical Field Engineer - Scarlett ALLAN [id number] WBC (Bld) [#/Vol] 11.23 10*3/uL High 4.80-10.80 [facility] Comment on above: Performed By: #### 5 7021-8 #### [address] [facility] [place] [address] Mechanical Field Engineer - Scarlett ALLAN [id number] Comprehensive metabolic 2000 panelon 08-15-2023 Albumin [Mass/Vol] 3.9 g/dL Normal 3.4-5.0 [facility] Comment on above: Performed By: #### 2 1198-7, 53602-4 #### [facility] [address] [facility]. [place] [address] Mechanical Field Engineer - Scarlett ALLAN [id number] ALP [Catalytic activity/Vol] 76 U/L Normal 50-136 [facility] Comment on above: Performed By: #### 2 1198-7, #### [facility] [address] [place] [address] Mechanical Field Engineer - Scarlett Lopez CLIA [id number] ALT [Catalytic activity/Vol] 20 U/L Normal 14-59 [facility] Comment on above: Performed By: #### 2 1198-7, 55592-5 #### [facility] [address] [place] [address] Mechanical Field Engineer - Scarlett Lopez CLIA [id number] Anion gap [Moles/Vol] 6.0 mmol/L Normal <=15.0 [facility] Comment on above: Performed By: #### 2 1198-7, #### [facility] [address] [place] [address] Mechanical Field Engineer - Scarlett Lopez CLIA [id number] AST [Catalytic activity/Vol] 9 U/L Low 15-37 [facility] Comment on above: Performed By: #### 2 1198-7, #### [facility] [address] [place] [address] Mechanical Field Engineer - Scarlett Lopez CLIA [id number] Bilirubin [Mass/Vol] 0.3 mg/dL Normal 0.2-1.0 [facility] Comment on above: Performed By: #### 2 1198-7, #### [facility] [address] [place] [address] Mechanical Field Engineer - Scarlett Lopez CLIA [id number] Calcium [Mass/Vol] 9.5 mg/dL Normal 8.5-10.1 [facility] Comment on above: Performed By: #### 2 1198-7, 65059-2 #### [facility] [address] [place] [address] Mechanical Field Engineer - Scarlett Lopez CLIA [id number] Chloride [Moles/Vol] 105 mmol/L Normal 98-107 [facility] Comment on above: Performed By: #### 2 1198-7, #### [facility] [address] [place] [address] [employer] - Scarlett ALLAN [id number] CO2 [Moles/Vol] 27 mmol/L Normal 21-32 [facility] Comment on above: Performed By: #### 2 8-7, #### [facility] [address] [place] [address] [employer] Field Engineer - Scarlett ALLAN [id number] Creatinine [Mass/Vol] 0.68 mg/dL Normal 0.51-0.95 [facility] Comment on above: Performed By: #### 2 8, #### [facility] [address] [place] [address] [employer] Field Engineer - Scarlett ALLAN [id number] GFR/1.73 sq M.predicted MDRD (S/P/Bld) [Vol rate/Area] mL/min/{1.73_m2} Normal >=59 [facility] Comment on above: Performed By: #### 2 8, #### [facility] [address] - Scarlett ALLAN [id number] Glucose [Mass/Vol] 103 mg/dL Normal 74-106 [facility] Comment on above: Performed By: #### 2 1198-7, #### [facility] [address] [place] [address] [employer] Field Engineer - Scarlett ALLAN [id number] HGFR GLOMERULAR FILTRATIO N RATE INTERPRETATION~The eGFR [...] months, with or without kidney damage.~ Normal [facility] Comment on above: Performed By: #### 2 8-7, 28126-9 #### [facility] [address] [place] [address] [employer] Field Engineer - Scarlett RUVALCABAIA [id number] Potassium [Moles/Vol] 3.9 mmol/L Normal 3.5-5.1 [facility] Comment on above: Performed By: #### 2 7, 09354-8 #### [facility] [address] [place] [address] Mechanical Field Engineer - Scarlett ALLAN [id number] Protein [Mass/Vol] 7.6 g/dL Normal 6.4-8.2 [facility] Comment on above: Performed By: #### 2 87, 25053-3 #### [facility] [address] [place] [address] Mechanical Field Engineer - Scarlett Lopezlucian ALLAN [id number] Sodium [Moles/Vol] 138 mmol/L Normal 136-145 [facility] Comment on above: Performed By: #### 2 7, 85183-4 #### [facility] [address] [place] [address] Mechanical Field Engineer - Scarlett ALLAN [id number] Urea nitrogen [Mass/Vol] 9 mg/dL Normal 7-17 [facility] Comment on above: Performed By: #### 2 87, 93253-8 #### [facility] [address] [place] [address] Mechanical Field Engineer - Scarlett ALLAN [id number] HCG BLOODon 08-15-2023 HCG.beta subunit Qn 8038 m[IU]/mL High 1-3 [facility] Comment on above: Performed By: #### 2 87, 55679-6 #### [facility] [address] [place] [address] Mechanical Field Engineer - Scarlett ALLAN [id number] HCG.beta subunit Qnon 2023 [facility] HCG INTERPRETATION T he expected values were [...] 6-8 weeks 15,000-200,000 2-3 months 10,000-100,000 Normal [facility] Comment on above: Performed By: #### 2 1198-7, 86159-8 #### [facility] [address] [place] [address] Mechanical Field Engineer - Scarlett ALLAN [id number] Vital Signs Date Time Vital Sign Value Performing Clinician Faci lity 11-13-2024 11:30-0400 Body temperature 98.7 [degF] Dr. Florentin Zamudio DO Work Phone: [facility] 11-13-2024 11:30-0400 Diastolic blood pressure 73 mm[Hg] Dr. Florentin Zamudio DO Work Phone: [facility] 11-13-2024 11:30-0400 Heart rate 86 /min Dr. Florentin Zamudio DO Work Phone: [facility] 11-13-2024 11:30-0400 Respiratory rate 14 /min Dr. Florentin Zamudio DO Work Phone: [facility] 11-13-2024 11:30-0400 SaO2% (BldA) [Mass fraction] 98 % Dr. Florentin Zamudio DO Work Phone: [facility] 11-13-2024 11:30-0400 Systolic blood pressure 108 mm[Hg] Dr. Florentin Zamudio DO Work Phone: [facility] 11-13-2024 09:45-0400 Inhaled oxygen flow rate 2 L/min Dr. Florentin Zamudio DO Work Phone: [facility] 11-13-2024 06:47-0400 Body height 170.[address] Florentin Zamudio DO Work Phone: 5(344)396-573242 [place] [address] 11-13-2024 06:47-0400 Body mass index (BMI) [Ratio] 31.1 kg/m2 Dr. Florentin Zamudio DO Work Phone: 5(950)440-012542 [place] [address] 11-13-2024 06:47-0400 Body weight 90.[address] Florentin Zamudio DO Work Phone: 2(984)794-298542 [place] [address] 10-23-2024 10:00-0400 Body temperature 98.4 [degF] Dr. Florentin Zamudio DO Work Phone: 6(646)778-395242 [place] [address] 10-23-2024 10:00-0400 Diastolic blood pressure 67 mm[Hg] Dr. Florentin Zamudio DO Work Phone: 5(211)391-790142 [place] [address] 10-23-2024 10:00-0400 Heart rate 100 /min Dr. Florentin Zamudio DO Work Phone: 2(769)912-017042 [place] [address] 10-23-2024 10:00-0400 Respiratory rate 16 /min Dr. Florentin Zamudio DO Work Phone: 2(801)999-740542 [place] [address] 10-23-2024 10:00-0400 SaO2% (BldA) [Mass fraction] 95 % Dr. Florentin Zamudio DO Work Phone: [facility] 10-23-2024 10:00-0400 Systolic blood pressure 102 mm[Hg] Dr. Florentin Zamudio DO Work Phone: 4(222)015-006642 [place] [address] 10-21-2024 20:39-0400 Inhaled oxygen flow rate 2 L/min Dr. Florentin Zamudio DO Work Phone: [facility] 10-20-2024 21:23-0400 Body height 167.[address] Florentin Zamudio DO Work Phone: [facility] 10-20-2024 21:23-0400 Body mass index (BMI) [Ratio] 31.8 kg/m2 Dr. Florentin Zamudio DO Work Phone: 5(526)908-242042 [place] [address] 10-20-2024 21:23-0400 Body weight 89.[address] Florentin Zamudio DO Work Phone: 0(885)744-355542 [place] [address] 10-20-2024 21:00-0400 Body temperature 99 [degF] Dr. Florentin Zamudio DO Work Phone: [facility] 10-20-2024 21:00-0400 Diastolic blood pressure 71 mm[Hg] Dr. Florentin Zamudio DO Work Phone: 3(878)246-756442 [place] [address] 10-20-2024 21:00-0400 Heart rate 89 /min Dr. Florentin Zamudio DO Work Phone: [facility] 10-20-2024 21:00-0400 Respiratory rate 16 /min Dr. Florentin Zamudio DO Work Phone: [facility] 10-20-2024 21:00-0400 SaO2% (BldA) [Mass fraction] 96 % Dr. Florentin Zamudio DO Work Phone: [facility] 10-20-2024 21:00-0400 Systolic blood pressure 109 mm[Hg] Dr. Florentin Zamudio DO Work Phone: [facility] 10-20-2024 17:26-0400 Body height 162.[address] Florentin Zamudio DO Work Phone: 2(971)384-287242 [place] [address] 10-20-2024 17:26-0400 Body mass index (BMI) [Ratio] 34.1 kg/m2 Dr. Florentin Zamudio DO Work Phone: 0(539)900-102042 [place] [address] 10-20-2024 17:26-0400 Body weight 90.[address] Florentin Zamudio DO Work Phone: 8(721)126-239942 [place] [address] 09-26-2024 13:51-0400 Body temperature 98.3 [degF] Dr. Florentin Zamudio DO Work Phone: 8(098)550-687588 [place] [address] 09-26-2024 13:51-0400 Diastolic blood pressure 72 mm[Hg] Dr. Florentin Zamudio DO Work Phone: 8(267)106-934788 [place] [address] 09-26-2024 13:51-0400 Heart rate 93 /min Dr. Florentin Zamudio DO Work Phone: 1(513)280-186488 [place] [address] 09-26-2024 13:51-0400 Respiratory rate 18 /min Dr. Florentin Zamudio DO Work Phone: 7(794)417-198188 [place] [address] 09-26-2024 13:51-0400 SaO2% (BldA) [Mass fraction] 96 % Dr. Florentin Zamudio DO Work Phone: 1(753)212-463442 [place] [address] 09-26-2024 13:51-0400 Systolic blood pressure 114 mm[Hg] Dr. Florentin Zamudio DO Work Phone: 6(172)673-195788 [place] [address] 09-26-2024 06:00-0400 Body mass index (BMI) [Ratio] 35.5 kg/m2 Dr. Florentin Zamudio DO Work Phone: 9(837)129-709042 [place] [address] 09-26-2024 06:00-0400 Body weight 94.[address] Florentin Zamudio DO Work Phone: 3(938)406-354342 [place] [address] 09-25-2024 18:42-0400 Body height 162.[address] Florentin Zamudio DO Work Phone: [facility] 09-25-2024 16:26-0400 Body temperature 97.9 [degF] Dr. Florentin Zamudio DO Work Phone: [facility] 09-25-2024 16:26-0400 Diastolic blood pressure 69 mm[Hg] Dr. Florentin Zamudio DO Work Phone: [facility] 09-25-2024 16:26-0400 Heart rate 88 /min Dr. Florentin Zamudio DO Work Phone: [facility] 09-25-2024 16:26-0400 Respiratory rate 16 /min Dr. Florentin Zamudio DO Work Phone: 1(501)282-242642 [place] [address] 09-25-2024 16:26-0400 SaO2% (BldA) [Mass fraction] 95 % Dr. Florentin Zamudio DO Work Phone: [facility] 09-25-2024 16:26-0400 Systolic blood pressure 92 mm[Hg] Dr. Florentin Zamudio DO Work Phone: [facility] 09-25-2024 13:44-0400 Body height 162.[address] Florentin Zamudio DO Work Phone: [facility] Encounters Encounter Date Encounter Type Care Provider Facility Start: 11-13-2024 Encounter for other preprocedural examination Ld Chacon [facility] Start: 11-13-2024 Non-patient / Non-visit Ld Evans nd, DO -[facility] Start: 11-13-2024 End: 11-13-2024 Admission to same day surgery center Ld Chacon DO -Endoscopy Work Phone: Start: 11-13-2024 End: 11-13-2024 ambulatory Heather Ruby Facility:[facility] Start: 11-12-2024 End: 11-12-[address] Aquilino Collins MD -[facility] Work Phone: Start: 11-12-2024 End: 11-12-[address] Florentin Zamudio DO Work Phone: [facility] Work Phone: Start: 11-03-2024 End: 11-03-2024 Patient encounter procedure Mikayla MORALES -[facility] Work Phone: Start: 11-03-2024 End: 11-03-[address] Florentin Zamudio DO Work Phone: [facility] Work Phone: Start: 11-03-2024 End: 11-03-[address] Aquilino Collins MD -[facility] Work Phone: Start: 11-03-2024 End: 11-03-[address] Florentin Zamudio DO Work Phone: [facility] Work Phone: Start: 10-28-2024 End: 10-28-[address] Auqilino Collins MD -[facility] Work Phone: Start: 10-28-2024 End: 10-28-[address] Florentin Zamudio DO Work Phone: [facility] Work Phone: Start: 10-28-2024 End: 10-28-2024 ambulatory Aquilino Collins Facility:[facility] Start: 10-23-2024 Non-patient / Non-visit Dr. Federico LOPEZ -[facility] Start: 10-22-2024 Non-patient / [facility] Start: 10-21-2024 Non-patient / [facility] Start: 10-21-2024 End: 10-21-2024 ambulatory Aquilino Collins Facility:[facility] Start: 10-21-2024 End: 10-21-2024 Non-patient / Non-visit Dr. Hao Hudson MD -[facility] Work Phone: Start: 10-20-2024 ambulatory Aquilino Collins Facility :[facility] Start: 10-20-2024 End: 10-23-2024 Evaluation and management of inpatient Dr. Aquilino Collins MD -[facility] Work Phone: Start: 10-15-2024 End: 10-16-2024 Emergency department patient visit IRINA LOPEZ SERA [facility] Start: 10-09-2024 End: 10-09-2024 Patient encounter procedure Mikayla MORALES -[facility] Work Phone: Start: 10-09-2024 End: 10-09-2024 ambulatory Heather Ruby Facility:[facility] Start: 09-26-2024 Non-patient / Non-visit Dr. Ravindra Negron MD -[facility] Work Phone: Start: 09-26-2024 Non-patient / Non-visit Dr. Yesica Mayo MD -[facility] Start: 09-25-2024 Non-patient / Non-visit Ld Evans nd, DO -[facility] Start: 09-25-2024 End: 09-26-2024 Evaluation and management of inpatient Dr. Carlin Negron MD -[facility] Work Phone: Start: 09-25-2024 [facility] Ld Chacon DO -[facility] Work Phone: Start: 09-25-[address] Florentin Zamudio DO Work Phone: [facility] Work Phone: Start: 09-24-2024 End: 09-25-2024 Evaluation and management of inpatient CRYSTAL CNM UPIRINA [facility] Start: 08-15-2023 End: 08-15-[address] ROBIN Facility:[facility] Procedures Date Procedure Procedure Detail Performing Clinician Start: 11-13-2024 End: 11-13-[address] Florentin Zamudio DO Work Phone: Start: 11-13-[address] Florentin Zamudio DO Work Phone: Start: 10-28-2024 Radionuclide study of abdomen Dr. [...] Result Comment: URINALYSIS Performed By: #### 2 [id number] #### [facility],[address] [place] [address] Start: 09-26-[address] Florentin Zamudio DO Work Phone: Start: 09-25-[address] Florentin Zamudio DO Work Phone: Start: 09-25-[address] Florentin Zamudio DO Work Phone: Start: 09-25-[address] Florentin Zamudio DO Work Phone: History of cholecystectomy Hx of cholecys tectomy Dr. Florentin Zamudio DO Work Phone: Comment on above: partial with AYSE partial with AYSE, 10/08 History of cholecystectomy Hx of cholecys tectomy Dr. Aquilino Collins MD History of cholecystectomy Hx of cholecys tectomy Mikayla MORALES History of cholecystectomy Hx of cholecys tectomy Dr. Aquilino Collins MD Plan of Treatment Date Care Activity Detail Author Start: 11-13-2024 Patient discharge [facility] Start: 10-28-2024 Radionuclide study of abdomen [facility] Start: 10-23-2024 Patient discharge [facility] Start: 10-21-2024 Application of intermittent pneumatic compression device [facility] Start: 10-21-2024 Preoperative care [facility] Start: 10-20-2024 Incentive spirometry [facility] Start: 10-20-2024 Admission procedure [facility] Start: 10-20-2024 Ambulation without limitation [facility] Start: 10-20-2024 Assessment of risk of venous thromboembolism [facility] Start: 10-20-2024 Insertion of catheter into peripheral vein [facility] Start: 10-20-2024 Measuring intake and output [facility] Start: 10-20-2024 Providing care according to standard [facility] Start: 10-20-2024 Verification routine [facility] Start: 10-20-2024 Hospital admission, emergency, from emergency room, medical nature [facility] Start: 10-20-2024 End: 10-20-2024 [facility] Start: 10-20-2024 Bacteria identified in Urine by Culture Urine Culture [facility] Start: 10-20-2024 Urine culture [facility] Start: 09-26-2024 [facility] Start: 09-26-2024 Patient discharge [facility] Start: 09-25-2024 Application of intermittent pneumatic compression device [facility] Start: 09-25-2024 Following clinical pathway protocol [facility] Start: 09-25-2024 Assessment of risk of venous thromboembolism [facility] Start: 09-25-2024 Documentation procedure [facility] Start: 09-25-2024 Incentive spirometry [facility] Start: 09-25-2024 Insertion of catheter into peripheral vein [facility] Start: 09-25-2024 Measuring intake and output [facility] Start: 09-25-2024 Providing care according to standard [facility] Start: 09-25-2024 Provision of activity privileges [facility] Start: 09-25-2024 Referral to gastroenterology service [facility] Start: 09-25-2024 Referral to general surgeon [facility] Start: 09-25-2024 [facility] Start: 09-25-2024 Admission procedure [facility] Start: 09-25-2024 Verification routine [facility] Start: 09-25-2024 End: 09-25-2024 Endoscopic retrograde cholangiopancreatography [facility] Start: 09-25-2024 Fluoroscopic guidance O.R. Fluoro for C-Arm [facility] Start: 09-25-2024 Hospital admission, emergency, from emergency room, medical nature [facility] Start: 09-25-2024 Patient referral to dietitian [facility] Alanine aminotransfe rase [Enzymatic activity/volume] in Serum or Plasma [facility] Albumin [Mass/volume ] in Serum or Plasma [facility] Alkaline phosphatase [Enzymatic activity/volume] in Serum or Plasma [facility] Anion gap in Serum or Plasma [facility] Bilirubin, total measurement [facility] BUN/Creatinine ratio [facility] Calcium [Mass/volume ] in Serum or Plasma [facility] Carbon dioxide, tota l [Moles/volume] in Central venous blood [facility] Creatinine [Mass/vol ume] in Serum or Plasma [facility] Erythrocyte mean cor puscular volume determination [facility] Glucose [Mass/volume ] in Serum or Plasma [facility] Hematocrit [Volume F raction] of Blood [facility] Hemoglobin [Mass/volume] in Blood [facility] Leukocytes [#/volume] in Blood [facility] Mean corpuscular hem oglobin concentration determination [facility] Mean corpuscular hem oglobin determination [facility] Measurement of renal function [facility] Neutrophil count [facility] Neutrophil percent d ifferential count [facility] Patient referral [facility] Work Phone: Platelets [#/volume] in Blood [facility] Potassium measurement [facility] Red blood cell count [facility] Red cell distributio n width determination [facility] Serum chloride measurement [facility] Sodium measurement [facility] Total protein measurement [facility] Urea nitrogen [Mass/ volume] in Serum or Plasma [facility] Payers Date Payer Category Payer Self-pay 2024 Unknown [id number] 2000 Unknown [id number] 2.16.8 [id number] Unknown [facility] [employer] [id number] Unknown [id number] 2.16.8 [id number] Unknown [id number] 2.16.8 40.1.445404.3.579.2.462 Unknown [id number] 2.16.8 40.1.869807.3.579.2.462 Unknown [id number] 2.16.8 40.1.113783.3.579.2.462 Unknown [id number] 2.16.8 40.1.766009.3.579.2.462 Unknown [id number] 2.16.8 40.1.819611.3.579.2.462 Unknown [id number] 2.16.8 40.1.324171.3.579.2.462 Unknown [id number] 2.16.8 40.1.094722.3.579.2.462 Unknown [id number] 2.16.8 40.1.829825.3.579.2.462 Unknown [id number] 2.16.8 40.1.022068.3.579.2.462 Unknown [id number] 2.16.8 40.1.504369.3.579.2.462 Unknown [id number] 2.16.8 40.1.417236.3.579.2.462 Unknown [id number] 2.16.8 40.1.249897.3.579.2.462 Unknown [id number] 2.16.8 40.1.747067.3.579.2.462 Unknown [id number] 2.16.8 40.1.626151.3.579.2.462 Unknown [id number] 2.16.8 40.1.084097.3.579.2.462 Unknown [id number] 2.16.8 40.1.265250.3.579.2.462 Unknown [id number] 2.16.8 40.1.298131.3.579.2.462 Social History Date Type Detail Facility Start: 09-25-2024 End: 11-11-2024 Tobacco smoking status DEIS Never smoked tobacco (finding) [facility] Start: 09-25-2024 End: 09-26-2024 Sex Female (finding) [facility] Start: 2000 Sex Assigned At Female [facility] Tobacco smoking consumption unknown [employer] Work Phone: NEGATED: Highlighted row Not [facility] NEGATED: Highlighted row No Social History Information Available No Social History Information Available [employer] Work Phone: Medical Equipment Procedure Code Equipment Code Equipment Origin al Text Equipment Identifier Dates ERCP (endoscopic retrograde cholangiopancreatog jossy) ([id number]) Polymeric biliary stent, non-bioabsorbable [id number] [facility] Start: 09-25-2024 ERCP (endoscopic retrograde cholangiopancreatog jossy) Polymeric pancreatic stent, non-bioabsorbable [id number] FDA Start: 09-25-2024 Goals Date Patient Goal Desired Activity /State Functional Status Date Assessment Result Facility 10-23-2024 Functional status Ambulates [facility] Work Phone: 09-26-2024 Functional status Up ad hemalatha [facility] Work Phone: 09-26-2024 Functional status None [facility] Work Phone: Mental Status Date Assessment Result Facility 11-13-2024 Cognitive function Level Of Consciousness Drowsy [facility] Work Phone: 11-13-2024 Cognitive function Voice/Name [facility] Work Phone: 10-23-2024 Cognitive function Voice/Name [facility] Work Phone: 10-20-2024 Cognitive function Level Of Cons ciousness Awake;Alert;Appropriate;Follow s Commands [facility] Work Phone: 09-26-2024 Cognitive function Level Of Cons ciousness Awake;Alert;Appropriate [facility] Work Phone: 09-26-2024 Cognitive function Voice/Name [facility] Work Phone: Clinical Notes 08-15-2023 to 11-13-2024 Note Date & Type Note Facility 11-13-2024 Consult note [facility] 11-13-2024 Consult note Note Date/Time November 13, 2024 9:04am [facility] Medical Records Department [address] [place] [address] Anesthesia Postop Eval I 11/13/24 0903 MR#: [id number] Acct: [id number] Name: LUCY CROWLEY V Rep #:[id number] : 2000 24 From: Marcial Marie PCP: Dr. Heather Ruby, DO Status:R EG SDC Y Race: C Location: [place] [address] Anesthesia: Postop Eval I Current Vital Signs Temperature: 97 F Pulse Rate: 91 Blood Pressure: 109/70 Respiratory Rate: 18 Pulse Ox: 99 Oxygen Delivery Method: Room Air Assessment Airway patent: Yes Spontaneous unlabored respirations: Yes Mental status: Awake nausea: No Vomiting: No Anesthesia Complication: No Fluid Hydration Crystalloid volume administer (ml): 900 Total IV fluid infused: 900 Progress Note Anesthesia document: Postop Eval 1 completed: Yes 11/13/24903 <Electronically signed by Marcial Marie > Date _ Marcial Marie Cosigner Signature: Date CC: ~ Signed [facility] Work Phone: 1(409) 664-951606-06-2025 Radiology Diagnostic study note [facility] Imaging Services [address] [place] [address] ERCP Biliary/Pancreas MR#: [id number] Acct: [id number] Name: LUCY CROWLEY V Rep #: [id number] : 2000 F 24 From: Blayne Stout MD PCP: Dr. Heather Ruby DO Status: R [facility] Study:ERCP Biliary/Pancreas Date of Exam: 11/13/24 Exam# [id number] Ordering Dr: Smitha Chacon DO PROCEDURE: ERCP BILIARY/PANCREAS; O.R. FLUORO FOR C-ARM 11/13/2024 REASON FOR EXAM: ERCP TECHNIQUE: Intraoperative fluoroscopy was performed for ERCP. 11 fluoroscopic images were also obtained. RAD/ERCP Biliary/Pancreas IMPRESSION: Intraoperative fluoroscopy was performed for ERCP. 11 fluoroscopic images were also obtained. Reading Location: [id number] CC: Dr. Heather Ruby DO; Ld Chcaon DO ~ Bobbin Coil Winder: Signed [facility]06-06-2025 Radiology Diagnostic study note [facility] Imaging Services [address] [place] [address] O.R. Fluoro for C-Arm MR#: [id number] Acct: [id number] Name: LUCY CROWLEY V Rep #: [id number] : 2000 F 24 From: Blayne Stout MD PCP: Dr. Heather Ruby DO Status: R [facility] Study:O.R. Fluoro for C-Arm Date of Exam: 11/13/24 Exam# [id number] Ordering Dr: Smitha Chacon DO PROCEDURE: ERCP BILIARY/PANCREAS; O.R. FLUORO FOR C-ARM 11/13/2024 REASON FOR EXAM: ERCP TECHNIQUE: Intraoperative fluoroscopy was performed for ERCP. 11 fluoroscopic images were also obtained. RAD/O.R. Fluoro for C-Arm IMPRESSION: Intraoperative fluoroscopy was performed for ERCP. 11 fluoroscopic images were also obtained. Reading Location: [address] CC: Dr. Heather Ruby DO; Ld Chacon DO ~ Bobbin Coil Winder: Signed [facility]06-06-2025 Procedure note [facility] Medical Records Department [address] [place] [address] ERCP Report MR#: [id number] Acct: [id number] Name: LUCY CROWLEY V Rep #:[id number] : 2000 24 From: Ld Chacon DO PCP: Dr. Heather Ruby DO Status:R [facility] Patient Name: Lucy Crowley Procedure Date: 11/13/2024 7:58 AM Date of : 2000 Age: 24 Procedure: ERCP Indications: Bile leak Providers: Ld Chacon DO Referring MD: Heather Ruby Do Medicines: Monitored Anesthesia Care Patient Profile: This is a 24 year old female. Refer to note in patient chart for documentation of history and physical. Patient has symptoms of acute right upper quadrant abdominal pain. Complications: No immediate complications. Procedure: Pre-Anesthesia Assessment: [...] patient has taken no anticoagulant or antiplatelet agents. ASA Grade Assessment: II - A patient [...] used to inject contrast into the bile duct. The ERCP was accomplished without difficulty. The patient tolerated the procedure well. Scope In: 8:30:47 AM Scope Out: 8:46:26 AM Total Procedure Duration Time 0 hours 15 minutes 39 seconds Findings: The real estate financial analyst film was normal. A biliary stent was visible on the real estate financial analyst film. The bile duct was deeply cannulated with the short-nosed traction sphincterotome. Contrast was injected. I personally interpreted the bile duct images. There was brisk flow of contrast through the ducts. Image quality was excellent. Contrast extended to the entire biliary tree. Extravasation of contrast originating from the cystic duct was observed. The lower third of the main bile duct contained one stone, which was 5 mm in diameter. The entire opacified area was moderately dilated, with a stone causing an obstruction. The largest diameter was 10 mm. A cholecystectomy had been performed. Placement of a long 0.025 inch Jagwire into the biliary tree was attempted. This passed successfully. A 5 mm biliary sphincterotomy was made with a traction (standard) sphincterotome using ERBE electrocautery. There was no post-sphincterotomy bleeding. The biliary tree was swept with a 12 mm balloon starting at the bifurcation, left intrahepatic duct(s) and right intrahepatic duct(s). Sludge was swept from the duct. All stones were removed. One stent was removed from the biliary tree using a snare and sent for cytology. One 10 mm by 8 cm covered metal stent was placed 5 cm into the common bile duct. Bile flowed through the stent. The stent was in good position. Impression: - The biliary system were moderately dilated, with a stone causing an obstruction. - A bile leak was found. - The patient has had a cholecystectomy. - Choledocholithiasis was found. Complete removal was accomplished by biliary sphincterotomy and balloon extraction. - A biliary sphincterotomy was performed. - The biliary tree was swept. - One stent was removed from the biliary tree. - One covered metal stent was placed into the common bile duct. Procedure Code(s): --- Professional --- 08999, Endoscopic retrograde cholangiopancreatography (ERCP); with removal and exchange of stent(s), biliary or pancreatic duct, including pre- and post-dilation and guide wire passage, when performed, including sphincterotomy, when performed, each stent exchanged 89610, Endoscopic retrograde cholangiopancreatography (ERCP); with removal of calculi/debris from biliary/pancreatic duct(s) 42488, 26, Endoscopic catheterization of the biliary ductal system, radiological supervision and interpretation CPT copyright 2021 [employer]. All rights reserved. The codes documented in this report are preliminary and upon process machine operator review may be revised to meet current compliance requirements. Ld Chacon DO 11/13/2024 9:09:24 AM This report has been signed electronically. Number of Addenda: 0 Note Initiated On: 11/13/2024 7:58 AM 11/13/24 0909 Date _ Ld Chacon DO Cosigner Signature: Date (if indicated) CC: Dr. Heather Ruby DO; Ld Chacon DO ~ Date Dictated: 11/13/24 0758 Date Transcribed: Bobbin Coil Winder: RF Signed [facility]06-06-2025 Procedure note [facility] Medical Records Department [address] [place] [address] Operative Report - CC Letter MR#: [id number] Acct: [id number] Name: LUCY CROWLEY V Rep #:[id number] : 2000 From: Ld Chacon DO PCP: Dr. Heather Ruby DO Status:R [facility] 11/13/2024 Heather Ruby Do Re : ERCP procedure for Lucy Crowley Dear Dr. Ruby This procedure was performed on Wednesday, November 13, 2024. My impressions and recommendations are as follows: Impressions : - The biliary system were moderately dilated, with a stone causing an obstruction. - A bile leak was found. - The patient has had a cholecystectomy. - Choledocholithiasis was found. Complete removal was accomplished by biliary sphincterotomy and balloon extraction. - A biliary sphincterotomy was performed. - The biliary tree was swept. - One stent was removed from the biliary tree. - One covered metal stent was placed into the common bile duct. Recommendations : My findings are described in the full procedure note, which is enclosed. If I can be of further assistance, please feel free to contact me at . Sincerely, Ld Chacon DO 11/13/2024 9:09:24 AM This report has been signed electronically. 11/13/24908 Date _ Ld Chacon DO Cosigner Signature: Date (if indicated) CC: Dr. Heather Ruby DO; Ld Chacon DO ~ Date Dictated: 11/13/24 0758 Date Transcribed: Bobbin Coil Winder: ALYSIA Signed [facility]06-06-2025 History and physical note Author Ld Chacon [facility] Note Date/Time November 13, 2024 7:06a m [facility] Medical Records Department [address] [place] [address] History & Physical Exam 11/13/24 0703 MR#: [id number] Acct: [id number] Name: LUCY CROWLEY V Rep #:[id number] : 2000 From: Ld Chacon DO PCP: Dr. Heather Ruby DO Status:[facility] Location: [place] [address] HPI - General General Date of Admission: 11/13/24 Date of Service: 11/13/24 Chief Complaint: bile leak HPI Narrative LUCY CROWLEY, is a 24-year-old woman with a history of cholecystitis and choledocholithiasis status post ERCP with stent placement and subtotal cholecystectomy for extremely inflamed and chronically thickened gallbladder. She developed a bile leak about a week after the procedure. She had already hada sphincterotomy and stent placed. AYSE drain was draining bilious output. Due to persistent bile leak she comes in for stent removal, occlusion cholangiogram and placement of longer stents or fully covered metal stents for treatment of bile leak. [facility] Medical History Wears glasses Non-smoker Bile leak Biliary colic Home Medications ?Medication ?Instructions ?Recorded ?Last Taken ?Type NK 11/12/24 Unknown History Allergy/AdvReac Type Severity Reaction Status Date / Time No Known Allergies Allergy Verified 11/13/24 06:45 Family History Mother No problems noted. Father No problems noted. Surgical History History of ERCP Hx of cholecystectomy Hx of appendectomy Social History household members: [...] rectal bleeding, tenesmus, vomiting or weight changes Vital Signs Vital Signs Vital Signs: 11/13/24 06:47 11/13/24 06:47 Temperature 97.4 F L Temperature Source Temporal Pulse Rate 83 Respiratory Rate 16 Respiratory Pattern Normal Blood Pressure 99/62 Blood Pressure Mean 74 Blood Pressure Source Monitor Blood Pressure Position Semi-Fowlers Blood Pressure Location Left Arm Pulse Ox 98 Oxygen Delivery Method Room Air Weight Weight: 198 lb 13.711 oz Body Mass Index (BMI) 31.1 Physical Exam Const alert, oriented x3, no apparent distress and healthy appearing General Appearance: cooperative GI normal to inspection, nondistended, normoactive bowel sounds, soft to palpation,non-tender and non-distended Percussion: normal to percussion Rectal Exam: deferred Results Lab / Micro Data Labs: Laboratory Results - last 24 hr 11/13/24 06:25: Urine Test Negative Assessment & Plan Assessment/Plan (1) Bile leak: PLAN: She will undergo ERCP with treatment of bile leak. She was explained alternatives, risk and benefits include not withstanding bleeding, infection, sepsis, perforation, need emergent . She will have an ASA of 3. 11/13/24 0706 <Electronically signed by Ld Chacon DO> Cosigner Signature (if applicable): CC: Dr. Heather Ruby DO; Ld Chacon DO~ Signed [facility] Work Phone: 1(554) 786-620206-06-2025 Consult note [facility] Medical Records Department [address] [place] [address] Anesthesia Postop Eval I 11/13/24 0903 MR#: [id number] Acct: [id number] Name: CARLINELUCY Roldan Rep #:[id number] : 2000 From: Marcial Marie PCP: Dr. Heather Ruby, DO Status:R EG [facility] [place] Race: C Location: [place] [address] Anesthesia: Postop Eval I Current Vital Signs Temperature: 97 F Pulse Rate: 91 Blood Pressure: 109/70 Respiratory Rate: 18 Pulse Ox: 99 Oxygen Delivery Method: Room Air Assessment Airway patent: Yes Spontaneous unlabored respirations: Yes Mental status: Awake nausea: No Vomiting: No Anesthesia Complication: No Fluid Hydration Crystalloid volume administer (ml): 900 Total IV fluid infused: 900 Progress Note Anesthesia document: Postop Eval 1 completed: Yes 11/13/24 0904 > Date _ Marcial Dean Signature: Date CC: ~ Signed [facility]06-06-2025 Consult note Author Saran [facility] Note Date/Time November 13, 2024 6:36a [facility] Medical Records Department [address] [place] [address] Pre-Anesthesia Evaluation 11/13/24 0635 MR#: [id number] Acct: [id number] Name: CARLINE,LUCY Roldan Rep #:[id number] : 2000 From: Saran Fragoso MD PCP: Dr. Heather Ruby, DO Status:R [facility] Y Race: C Location: [place] [address] ASA Classification* ASA Classification ASA Classification: 2 [...] Type Anesthesia Type: General Anesthesia Focused Assessment* Airway Assessment Mouth opens: >3 cm Mallampati Score: II Focused Labs Anesthesia Preop lab: CBC WBC 11.4 K/mm3 (4.4-11.0) H 10/23/24 05:15 5 RBC 3.64 M/mm3 (4.2-5.4) L 10/23/24 05:15 10/23/24 Hgb 11.1 g/dL (12.0-15.0) L 10/23/24 05:15 5 Hct 32.9 % (37-47) L 10/23/24 05:15 10/23/24 Plt Count 271 K/mm3 (150-450) 10/23/24 05:15 10/23/24 CHEMISTRY Potassium 3.4 mmol/L (3.3-5.1) 10/23/24 05:15 10/23/24 Sodium 142 mmol/L (133-145) 10/23/24 05:15 10/23/24 BUN 13 mg/dL (4-19) 10/23/24 05:15 10/23/24 Creatinine 0.76 mg/dL (0.70-1.20) 10/23/24 05:15 10/23/24 Glucose 83 mg/dL (70-99) 10/23/24 05:15 10/23/24 COAG PT 13.4 SECONDS (11.7-14.9) 10/21/24 05:20 Urine Test Negative Negative 10/21/24 08:45 10/21/24 Pre-Assessment Diagnosis/Proposed Procedure Planned Operative Procedure(s): ERCP 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 When Was Last Pacemaker Check QUESTION #4 FULL TEXT: You/Your Family Experience fever (hyperthermia) with Anesthesia Last Oral Intake Last Oral intake: Last Oral Intake NPO since Meds taken in AM with sips of water? 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 - entry level accounting clerk: PONV - entry level accounting clerk Female Yes 11/11/24 12:40 HX of Motion Sickness No 11/11/24 12:40 HX of N/V After Surgery No 11/11/24 12:40 Non-Smoker Yes 11/11/24 12:40 Duration of Surgery greater No 11/11/24 12:40 than 60 minutes Number of Risk Factors 2 11/11/24 12:40 PONV Score Moderate Risk 11/11/24 12:40 Height & Weight Height & Weight: Anesthesia: Height & Weight Height 5 ft 6 in 10/20/24 21:23 Respiratory Assessment Respiratory Assessment - entry level accounting clerk: Respiratory Tract Infection Hx - entry level accounting clerk Hx Respiratory Tract Infection No 11/11/24 12:40 STOP Sleep Apnea STOP Sleep Apnea - entry level accounting clerk: STOP Sleep Apnea - entry level accounting clerk Hx Hypertension No 11/11/24 12:40 Hx Sleep Apnea No 11/11/24 12:40 CPAP BIPAP Do you snore loudly (louder No 11/11/24 12:40 than talking or can be heard Do you often feel tired/ No 11/11/24 12:40 fatigued/ sleepy during daytime? Has anyone observed you stop No 11/11/24 12:40 breathing during sleep? STOP Results Negative 11/11/24 12:40 QUESTION #5 FULL TEXT : Do you snore loudly (louder than talking or can be heard through closed doors)? 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 Specify any problems Hx of Preganancy in last 3 Yes 11/11/24 12:40 Months Nurse Filling Out Transfusion VCHRISTIN 11/11/24 12:40 & Questions: Date: 11/11/24 11/11/24 12:40 Time: 12:41 11/11/24 12:40 Patient unable to answer at this time (ie. 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: /Reproductive Hx- entry level accounting clerk Hx Now No 11/11/24 12:40 Gestational Age (in weeks): EDC: Hx Hx Para Hx Section SAB Yes 11/11/24 12:40 Active Medications Active Medications: Current Medications Generic Name Dose Route Start Last Admin Trade Name Freq PRN Reason Stop Dose Admin Lactated Ringer's 1,000 mls @ 15 mls/hr 11/13/24 06:30 IV .Q48H GEOVANNA PFSH Medical History (Updated 11/11/24 @ 12:39 by Jessica Penaloza) Wears glasses Non-smoker Bile leak Biliary colic Home Medications ?Medication ?Instructions ?Recorded ?Last Taken ?Type NK 11/12/24 Unknown History Allergy/AdvReac Type Severity Reaction Status Date / Time No Known Allergies Allergy Verified 11/12/24 09:00 Family History Mother No problems noted. Father No problems noted. Surgical History (Updated 11/11/24 @ 12:39 by Jessica Penaloza) History of ERCP Hx of cholecystectomy Hx of appendectomy Social History household members: spouse, children and other details: 2 older children at home, 1 miscarriage, 1 09/24/24. Smoking Status: Never smoker alcohol intake: never substance use type: does not use Review of Systems (Anesthesia) ROS Narrative System reviewed and no additional complaints, except as documented. 11/13/24 0636 <Electronically signed by Saran Fragoso MD > Date _ Saran Dean Signature: Date CC: ~ Signed [facility] Work Phone: 1(228) 255-539106-06-2025 History and physical note [facility] Medical Records Department [address] [place] [address] History & Physical Exam 11/13/24 0703 MR#: [id number] Acct: [id number] Name: LUCY CROWLEY V Rep #:[id number] : 2000 From: Ld Chacon DO PCP: Dr. Heather Ruby DO Status:R [facility] Location: [place] [address] HPI - General General Date of Admission: 11/13/24 Date of Service: 11/13/24 Chief Complaint: bile leak HPI Narrative LUCY CROWLEY, is a 24-year-old woman with a history of cholecystitis and choledocholithiasis status post ERCP with stent placement and subtotal cholecystectomy for extremely inflamed and chronicallythickened gallbladder. She developed a bile leak about a week after the procedure. She had already hada sphincterotomy and stent placed. AYSE drain was draining bilious output. Due to persistent bile leak she comes in for stent removal, occlusion cholangiogram and placement of longer stents or fully covered metal stents for treatment of bile leak. [facility] Medical History Wears glasses Non-smoker Bile leak Biliary colic Home Medications ?Medication ?Instructions ?Recorded ?Last Taken ?Type NK 11/12/24 Unknown History Allergy/AdvReac Type Severity Reaction Status Date / Time No Known Allergies Allergy Verified 11/13/24 06:45 Family History Mother No problems noted. Father No problems noted. Surgical History History of ERCP Hx of cholecystectomy Hx of appendectomy Social History household members: [...] rectal bleeding, tenesmus, vomiting or weight changes Vital Signs Vital Signs Vital Signs: 11/13/24 06:47 11/13/24 06:47 Temperature 97.4 F L Temperature Source Temporal Pulse Rate 83 Respiratory Rate 16 Respiratory Pattern Normal Blood Pressure 99/62 Blood Pressure Mean 74 Blood Pressure Source Monitor Blood Pressure Position Semi-Fowlers Blood Pressure Location Left Arm Pulse Ox 98 Oxygen Delivery Method Room Air Weight Weight: 198 lb 13.711 oz Body Mass Index (BMI) 31.1 Physical Exam Const alert, oriented x3, no apparent distress and healthy appearing General Appearance: cooperative GI normal to inspection, nondistended, normoactive bowel sounds, soft to palpation,non-tender and non-distended Percussion: normal to percussion Rectal Exam: deferred Results Lab / Micro Data Labs: Laboratory Results - last 24 hr 11/13/24 06:25: Urine Test Negative Assessment & Plan Assessment/Plan (1) Bile leak: PLAN: She will undergo ERCP with treatment of bile leak. She was explained alternatives, risk and benefits include not withstanding bleeding, infection, sepsis, perforation, need emergent . She will have an ASA of 3. 11/13/24 0706 Cosigner Signature (if applicable): CC: Dr. Heather Ruby DO; Ld Chacon DO~ Signed [facility]06-06-2025 [facility] Medical Records Department [address] [place] [address] History Physical Exam 11/13/24 0703 MR#: [id number] Acct: [id number] Name: LUCY CROWLEY V Rep #: [id number] : 2000 24 From: Ld Chacon DO PCP: Dr. Heather Ruby DO Status:[facility] Location: [place] [address] HPI - General General Date of Admission: 11/13/24 Date of Service: 11/13/24 Chief Complaint: bile leak HPI Narrative LUCY CROWLEY, is a 24-year-old woman with a history of cholecystitis and choledocholithiasis status post ERCP with stent placement and subtotal cholecystectomy for extremely inflamed and chronically thickened gallbladder. She developed a bile leak about a week after the procedure. She had already had a sphincterotomy and stent placed. AYSE drain was draining bilious output. Due to persistent bile leak she comes in for stent removal, occlusion cholangiogram and placement of longer stents or fully covered metal stents for treatment of bile leak. [facility] Medical History Wears glasses Non-smoker Bile leak Biliary colic Home Medications ???Medication ???Instructions ???Recorded ???Last Taken ???Type NK 11/12/24 Unknown History Allergy/AdvReac Type Severity Reaction Status Date / Time No Known Allergies Allergy Verified 11/13/24 06:45 Family History Mother No problems noted. Father No problems noted. Surgical History History of ERCP Hx of cholecystectomy Hx of appendectomy Social History household members: [...] rectal bleeding, tenesmus, vomiting or weight changes Vital Signs Vital Signs Vital Signs: 11/13/24 06:47 11/13/24 06:47 Temperature 97.4 F L Temperature Source Temporal Pulse Rate 83 Respiratory Rate 16 Respiratory Pattern Normal Blood Pressure 99/62 Blood Pressure Mean 74 Blood Pressure Source Monitor Blood Pressure Position Semi-Fowlers Blood Pressure Location Left Arm Pulse Ox 98 Oxygen Delivery Method Room Air Weight Weight: 198 lb 13.711 oz Body Mass Index (BMI) 31.1 Physical Exam Const alert, oriented x3, no apparent distress and healthy appearing General Appearance: cooperative GI normal to inspection, nondistended, normoactive bowel sounds, soft to palpation, non-tender and non- distended Percussion: normal to percussion Rectal Exam: deferred Results Lab / Micro Data Labs: Laboratory Results - last 24 hr 11/13/24 06:25: Urine Test Negative Assessment Plan Assessment/Plan (1) Bile leak: PLAN: She will undergo ERCP with treatment of bile leak. She was explained alternatives, risk and benefits include not withstanding bleeding, infection, sepsis, perforation, need emergent . She will have an ASA of 3. 11/13/24 0706 Cosigner Signature (if applicable): CC: Dr. Heather Ruby DO; Ld Chacon, [facility] Consult note [facility] Medical Records Department [address] [place] [address] Pre-Anesthesia Evaluation 11/13/24 0635 MR#: [id number] Acct: [id number] Name: LUCY CROWLEY V Rep #:[id number] : 2000 24 From: Saran Fragoso MD PCP: Dr. Heather Ruby DO Status:R EG SDC Y Race: C Location: [place] [address] ASA Classification* ASA Classification ASA Classification: 2 [...] Type Anesthesia Type: General Anesthesia Focused Assessment* Airway Assessment Mouth opens: >3 cm Mallampati Score: II Focused Labs Anesthesia Preop lab: CBC WBC 11.4 K/mm3 (4.4-11.0) H 10/23/24 05:15 5 RBC 3.64 M/mm3 (4.2-5.4) L 10/23/24 05:15 10/23/24 Hgb 11.1 g/dL (12.0-15.0) L 10/23/24 05:15 5 Hct 32.9 % (37-47) L 10/23/24 05:15 10/23/24 Plt Count 271 K/mm3 (150-450) 10/23/24 05:15 10/23/24 CHEMISTRY Potassium 3.4 mmol/L (3.3-5.1) 10/23/24 05:15 10/23/24 Sodium 142 mmol/L (133-145) 10/23/24 05:15 10/23/24 BUN 13 mg/dL (4-19) 10/23/24 05:15 10/23/24 Creatinine 0.76 mg/dL (0.70-1.20) 10/23/24 05:15 10/23/24 Glucose 83 mg/dL (70-99) 10/23/24 05:15 10/23/24 COAG PT 13.4 SECONDS (11.7-14.9) 10/21/24 05:20 Urine Test Negative Negative 10/21/24 08:45 10/21/24 Pre-Assessment Diagnosis/Proposed Procedure Planned Operative Procedure(s): ERCP 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 When Was Last Pacemaker Check QUESTION #4 FULL TEXT: You/Your Family Experience fever (hyperthermia) with Anesthesia Last Oral Intake Last Oral intake: Last Oral Intake NPO since Meds taken in AM with sips of water? 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 - entry level accounting clerk: PONV - entry level accounting clerk Female Yes 11/11/24 12:40 HX of Motion Sickness No 11/11/24 12:40 HX of N/V After Surgery No 11/11/24 12:40 Non-Smoker Yes 11/11/24 12:40 Duration of Surgery greater No 11/11/24 12:40 than 60 minutes Number of Risk Factors 2 11/11/24 12:40 PONV Score Moderate Risk 11/11/24 12:40 Height & Weight Height & Weight: Anesthesia: Height & Weight Height 5 ft 6 in 10/20/24 21:23 Respiratory Assessment Respiratory Assessment - entry level accounting clerk: Respiratory Tract Infection Hx - entry level accounting clerk Hx Respiratory Tract Infection No 11/11/24 12:40 STOP Sleep Apnea STOP Sleep Apnea - entry level accounting clerk: STOP Sleep Apnea - entry level accounting clerk Hx Hypertension No 11/11/24 12:40 Hx Sleep Apnea No 11/11/24 12:40 CPAP BIPAP Do you snore loudly (louder No 11/11/24 12:40 than talking or can be heard Do you often feel tired/ No 11/11/24 12:40 fatigued/ sleepy during daytime? Has anyone observed you stop No 11/11/24 12:40 breathing during sleep? STOP Results Negative 11/11/24 12:40 QUESTION #5 FULL TEXT : Do you snore loudly (louder than talking or can be heard through closeddoors)? 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 Specify any problems Hx of Preganancy in last 3 Yes 11/11/24 12:40 Months Nurse Filling Out Transfusion VCHRISTIN 11/11/24 12:40 & Questions: Date: 11/11/24 11/11/24 12:40 Time: 12:41 11/11/24 12:40 Patient unable to answer at this time (ie. 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: /Reproductive Hx- entry level accounting clerk Hx Now No 11/11/24 12:40 Gestational Age (in weeks): EDC: Hx Hx Para Hx Section SAB Yes 11/11/24 12:40 Active Medications Active Medications: Current Medications Generic Name Dose Route Start Last Admin Trade Name Freq PRN Reason Stop Dose Admin Lactated Ringer's 1,000 mls @ 15 mls/hr 11/13/24 06:30 IV .Q48H GEOVANNA PFSH Medical History (Updated 11/11/24 @ 12:39 by Jessica Penaloza) Wears glasses Non-smoker Bile leak Biliary colic Home Medications ?Medication ?Instructions ?Recorded ?Last Taken ?Type NK 11/12/24 Unknown History Allergy/AdvReac Type Severity Reaction Status Date / Time No Known Allergies Allergy Verified 11/12/24 09:00 Family History Mother No problems noted. Father No problems noted. Surgical History (Updated 11/11/24 @ 12:39 by Jessica Penaloza) History of ERCP Hx of cholecystectomy Hx of appendectomy Social History household members: spouse, children and other details: 2 older children at home, 1 miscarriage, 1 09/24/24. Smoking Status: Never smoker alcohol intake: never substance use type: does not use Review of Systems (Anesthesia) ROS Narrative System reviewed and no additional complaints, except as documented. 11/13/24 0636 > Date _ Saran Dean Signature: Date CC: ~ Signed [facility]05-16-2025 Discharge summary [facility] Medical Records Department [address] [place] [address] Discharge Summary 10/23/24 1305 MR#: [id number] Acct: [id number] Name: LUCY CROWLEY V Rep #:[id number] : 2000 From: Aquilino Collins MD PCP: Dr. Heather Ruby DO Status:A DM IN Location: [facility] VJ599-1 Providers Date of Admission: 10/20/24 Date of Discharge: 10/23/24 Primary Care Physician: Dr. Heather Ruby DO Reason For Visit: ACUTE CHOLECYSTITIS Diagnosis Discharge Diagnosis (1) Gallstone: Status: Acute Code(s): K80.20 - Calculus of gallbladder without cholecystitis without obstruction Qualifiers: Cholecystitis presence: with cholecystitis Cholecystitis acuity: acute Biliary obstruction: withoutbiliary obstruction Qualified Code(s): K80.00 - Calculus of [...] closer to home. She initially did well forseveral weeks but then developed abdominal pain for the past week. She presented to the emergency department at [facility] with right upper quadrant pain and fevers. Ultrasound showeda gallbladder wall thickening and pericholecystic fluid. Labs [...] % (Auto) 57.9, Lymph % (Auto) 30.5, Luqu[place] % (Auto) 4.4, Eos % (Auto) 5.8 [...] be placed): Home, Self Care 10/23/24 1318 Cosigner Signature (if applicable): CC: Dr. Heather Ruby DO; Dr. Aquilino Collins MD~ Signed [facility]05-16-2025 [facility] Medical Records Department [address] [place] [address] Discharge Summary 10/23/24 1305 MR#: [id number] Acct: [id number] Name: LUCY CROWLEY V Rep #: [id number] : 2000 From: Aquilino Collins MD PCP: Dr. Heather Ruby DO Status:ADM IN Location: [facility] NN181-4 Providers Date of Admission: 10/20/24 Date of [...] She presented to the emergency department at [facility] with right upper quadrant pain and fevers. [...] % (Auto) 57.9, Lymph % (Auto) 30.5, Luqu[place] % (Auto) 4.4, Eos % (Auto) 5.8 H, Baso % (Auto) 0.4, Absolute Neuts (auto) 6.6, Absolute Lymphs (auto) 3.48, Nucleated RBC % 0, Sodium 142, Potassium 3.4, Chloride 107, Carbon Dioxide 24.3, Anion Gap 11, BUN 13, Creatinine 0.76, Estim Creat Clear Calc 127.58, Est GFR (MDRD) Non-Af 111, BUN/Creatinine Ratio 17.3, Glucose 83, Calcium 8.6, Total (more content not included)...[facility]05-15-2025 Progress note Author Wendy Santana [facility] Note Date/Time October 22, 2024 7:36a m [facility] Medical Records Department [address] [place] [address] Progress Note - Surgery 10/22/24 0650 MR#: [id number] Acct: [id number] Name: LUCY CROWLEY V Rep #:[id number] : 2000 From: Wendy MORALES PA-C PCP: Dr. Heather Ruby, DO Status:A DM IN Location: MS3 DM535-5 Subjective Subjective Patient evaluated resting comfortably in [...] 1.0, APTT 35.3, Sodium 137, Potassium 3.3, Eizfmhtw555, Carbon Dioxide 23.1, Anion Gap 12, BUN 8, Creatinine 0.68 L, Estim Creat Clear Calc 142.59, Est GFR (MDRD) Non-Af 124, BUN/Creatinine Ratio 12.2, Mggmran59 L, Calcium 8.7, Total Bilirubin 0.46, AST 13, ALT 10, Alkaline Phosphatase 95, Total Protein 6.5, Albumin 3.4 L, Globulin 3.1, Albumin/Globulin Ratio 1.1 10/21/24 08:45: Urine Test Negative 10/22/24 06:05: WBC 11.8 H, RBC 3.83 L, Hgb 11.8 L, Hct 34.5 L, MCV 90.1, MCH 30.8, MCHC 34.2, RDW Std Deviation 38.6, RDW Coeff of Rbeeca 11.8, Plt Count 228, MPV 10.2, Immature Gran % (Auto) 0.900, Neut % (Auto) 82.0 H, Lymph % (Auto) 11.5 L, Luquillo % (Auto) 5.3, Eos % (Auto) 0.0, [...] and I.S. Charges/Coding Visit Charges Inpatient E&M: 88420 Subs Hosp L1 (post-op) 10/22/24 0736 <Electronically signed by Wendy MORALES PA-C> Cosigner Signature (if applicable): CC: ~ Signed [facility] Work Phone: 1(391) 968-852605-15-2025 Progress note [facility] Medical Records Department [address] [place] [address] Progress Note - Surgery 10/22/24 0650 MR#: [id number] Acct: [id number] Name: LUCY CROWLEY V Rep #:[id number] : 2000 From: Wendy MORALES PA-C PCP: Dr. Heather Ruby, DO Status:A DM IN Location: MS3 HU382-8 Subjective Subjective Patient evaluated resting comfortably in [...] 1.0, APTT 35.3, Sodium 137, Potassium 3.3, Ywgosvod894, Carbon Drvmbjk11.1, Anion Gap 12, BUN 8, Creatinine 0.68 L, Estim Creat Clear Calc 142.59, Est GFR (MDRD) Non-Af 124, BUN/Creatinine Ratio 12.2, Cfhjgae21 L, Calcium 8.7, Total Bilirubin 0.46, AST [...] 82.0 H, Lymph % (Auto) 11.5 L, Luquillo % (Auto) 5.3, Eos % (Auto) 0.0, [...] and I.S. Charges/Coding Visit Charges Inpatient E&M: 33661 Subs Hosp L1 (post-op) 10/22/24 0736 Cosigner Signature (if applicable): CC: ~ Signed [facility]05-14-2025 Consult note Author Dorian Daily [facility] Note Date/Time October 21, 2024 5:52p m [facility] Medical Records Department [address] [place] [address] Anesthesia Postop Eval II 10/21/24 1752 MR#: [id number] Acct: [id number] Name: LUCY CROWLEY V Rep #:[id number] : 2000 24 From: Dorian Daily MD PCP: Dr. Heather Ruby, DO Status:A DM IN Y Race: C Location: OR3 MS319 -1 Anesthesia Postop Eval I Sum Postop Eval Completion status Anesthesia document: Postop Eval 1 completed: Yes Anesthesia Postop Eval I Summary Anesthesia Postop Eval I Summary: Anesthesia Postop Eval I: Assessment Summary Airway patent Yes 10/21/24 16:16 PATCH SETTER.[email or web address] Spontaneous unlabored Yes 10/21/24 16:16 PATCH SETTER.[email or web address] respirations Mental status Awake,Calm 10/21/24 16:16 PATCH SETTER.SKOBY nausea No 10/21/24 16:16 PATCH SETTER.SKOBY Vomiting No 10/21/24 16:16 PATCH SETTER.SKOBY Anesthesia Postop Eval I: Fluid Summary Crystalloid volume administer 1,400 10/21/24 16:16 PATCH SETTER.SKOBY (ml) Colloids volume administered ( ml) Blood Product volume administered (ml) Total IV fluid infused 1,400 10/21/24 16:16 PATCH SETTER.SKOBY Anesthesia Postop Eval I: Summary Notes Anesthesia Complication No 10/21/24 16:16 PATCH SETTER.JABIEROBManuel Anesthesia Complication Comment: Post-operative progress note Anesthesia: Postop Eval II Evaluation Mental status: Awake and Calm Pain Level: 1 nausea: No Vomiting: No Complications Anesthesia Complication: No 10/21/24 271 <Electronically signed by Dorian ramsey MD> Date _ Dorian Daily MD Cosigner Signature: Date CC: ~ Signed [facility] Work Phone: [phone]) 550-552705-14-2025 Consult note Author Christa Smith [facility] Note Date/Time October 21, 2024 4:17p m [facility] Medical Records Department [address] [place] [address] Anesthesia Postop Eval I 10/21/24 1616 MR#: [id number] Acct: [id number] Name: LUCY CROWLEY V Rep #:[id number] : 2000 From: Christa prince CRNA PCP: Dr. Heather Ruby, DO Status:A DM IN Y Race: C Location: OR3 MS319 - Anesthesia: Postop Eval I Current Vital Signs [...] 10/21/24 1617 <Electronically signed by Christa salgado CRNA> Date _ Christa Smith CRNA Cosigner Signature: Date CC: ~ Signed [facility] Work Phone: 1(253) [phone] Consult note [facility] Medical Records Department [address] [place] [address] Anesthesia Postop Eval II 10/21/24 1752 MR#: [id number] Acct: [id number] Name: LUCY CROWLEY V Rep #:[id number] : 2000 From: Dorian Daily MD PCP: Dr. Heather Ruby, DO Status:A DM IN Y Race: C Location: MS3 MS319 -1 Anesthesia Postop Eval I Sum Postop Eval Completion status Anesthesia document: Postop Eval 1 completed: Yes Anesthesia Postop Eval I Summary Anesthesia Postop Eval I Summary: Anesthesia Postop Eval I: Assessment Summary Airway patent Yes 10/21/24 16:16 PATCH SETTER.JABIEROBManuel Spontaneous unlabored Yes 10/21/24 16:16 PATCH SETTER.JABIEROBY respirations Mental status Awake,Calm 10/21/24 16:16 PATCH SETTER.SKOBY nausea No 10/21/24 16:16 PATCH SETTER.SKOBY Vomiting No 10/21/24 16:16 PATCH SETTER.SKOBY Anesthesia Postop Eval I: Fluid Summary Crystalloid volume administer 1,400 10/21/24 16:16 PATCH SETTER.SKOBY (ml) Colloids volume administered ( ml) Blood Product volume administered (ml) Total IV fluid infused 1,400 10/21/24 16:16 PATCH SETTER.SKOBY Anesthesia Postop Eval I: Summary Notes Anesthesia Complication No 10/21/24 16:16 PATCH SETTER.SKOBY Anesthesia Complication Comment: Post-operative progress note Anesthesia: Postop Eval II Evaluation Mental status: Awake and Calm Pain Level: 1 nausea: No Vomiting: No Complications Anesthesia Complication: No 10/21/24 1752 braulio LOPEZ> Date _ Dorian Daily MD Cosigner Signature: Date CC: ~ Signed [facility]05-14-2025 Procedure note [facility] Medical Records Department [address] [place] [address] Operative Report 10/21/24 1632 MR#: [id number] Acct: [id number] Name: LUCY CROWLEY V Rep #:[id number] : 2000 24 From: Aquilino Collins MD PCP: Dr. Heather Ruby, DO Status:A DM IN Location: [facility] FC509-6 Problems Associated Problem List Diagnoses (1) Acute cholecystitis: Procedures Digestive 40xxx-49xxx: 15387 Laparoscopic cholecystectomy (Laparoscopic subtotal cholecystectomy without cholangiograms) Operative Report (Standard) Operative Information Date of Procedure: 10/21/24 Pre-Operative Diagnosis: Acute on chronic cholecystitis Post-Operative Diagnosis: Same Surgery/Procedure Performed: Laparoscopic subtotal cholecystectomy shape brick molder: Yes Summer Sessions Director: Dillan Means Tasks completed by infertility medical assistant: Closing, Trocar and Retracting Additional lead recreation assistant?: No Type of Anesthesia: General and [...] DRAINS/GRAFTS/IMPLANTS that apply: Drains Drain details: 10 Sammarinese fully fluted flat AYSE drain x 1 [...] duct stones were removed and stents were navya flavia. She was advised to have her cholecystectomy performed during that hospitalization however she stated that she would prefer to have this performed closer to home. Patient was initially doing verywell up until about 5 days ago when she began having abdominal pain and low-grade fevers. She presented to [facility] last evening. She was seen and evaluated [...] gallbladder using blunt dissection with the suction turning lathe tender tip. There was densely adherent omentum to [...] subtotal cholecystectomy was performed by having the lead recreation assistant grasped the fundus of the gallbladder. [...] prophylaxis not ordered: Treatment Not Indicated 10/21/24 1277 Cosigner Signature (if applicable): CC: Dr. Heather Ruby DO; Dr. Aquilino Collins MD~ Signed [facility]05-14-2025 Consult note [facility] Medical Records Department [address] [place] [address] Anesthesia Postop Eval I 10/21/24 1616 MR#: [id number] Acct: [id number] Name: LUCY RCOWLEY V Rep #:[id number] : 2000 From: Christa prince CRNA PCP: Dr. Heather Ruby, DO Status:A DM IN Y Race: C Location: [place] [id number] - Anesthesia: Postop Eval I Current Vital Signs [...] Eval 1 completed: Yes 10/21/24 1617 damian PATCH SETTER> Date _ Christa Smith PATCH SETTER Cosigner Signature: Date CC: ~ Signed [facility]05-14-2025 Consult note Author Saran [facility] Note Date/Time October 21, 2024 12:39 pm [facility] Medical Records Department [address] [place] [address] Pre-Anesthesia Evaluation 10/21/24 1238 MR#: [id number] Acct: [id number] Name: LUCY CROWLEY V Rep #:[id number] : 2000 From: Saran Fragoso MD PCP: Dr. Heather Ruby, DO Status:A DM IN Y Race: C Location: [facility] - ASA Classification* ASA Classification ASA Classification: 2 [...] Laparoscopic cholecystectomy. 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: Anesthesia History - entry level accounting clerk Hx Hospitalization Any Problems With Anesthesia Cholinesterase [...] take am of surgery PONV PONV - entry level accounting clerk: PONV - entry level accounting clerk Female HX of Motion Sickness HX of N/V After Surgery Non-Smoker Duration of Surgery greater than 60 minutes Number of Risk Factors PONV Score Height & Weight Height & Weight: Anesthesia: Height & Weight Height 5 ft 6 in 10/20/24 21:23 Weight: 89.6 kg 10/20/24 21:23 Body Mass Index (BMI) 31.8 10/20/24 21:23 Respiratory Assessment Respiratory Assessment - entry level accounting clerk: Respiratory Tract Infection Hx - entry level accounting clerk Hx Respiratory Tract Infection STOP Sleep Apnea STOP Sleep Apnea - entry level accounting clerk: STOP Sleep Apnea - entry level accounting clerk Hx Hypertension No 10/20/24 21:23 Hx Sleep [...] 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 - entry level accounting clerk: Tobacco Use History - entry level accounting clerk Tobacco Use Smoking Status Never smoker 10/20/24 21:23 Hx Tobacco Use No 10/20/24 21:23 Years Smoking Packs Smoked per Day Smoking Cessation Date was within the last 15 years Hx Smoking Cessation Date Hx Smoking Cessation Counseling Hematologic Medial History Hematologic Hx - 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 Specify any problems Hx of Preganancy in last 3 Yes 10/20/24 21:23 Months Nurse Filling Out Transfusion [email or web address] 10/20/24 21:23 & Questions: Date: 10/20/24 10/20/24 21:23 Time: 21:25 21:23 Patient unable to answer at this time (ie. 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 10/21/24 8887 <Electronically signed by Saran Fragoso MD > Date _ Saran Fragoso MD Cosigner Signature: Date CC: ~ Signed [facility] Work Phone: [phone] History and physical note Author Wendy [facility] Note Date/Time October 21, 2024 11:19 [facility] Medical Records Department [address] [place] [address] History & Physical Exam 10/21/24 0754 MR#: [id number] Acct: [id number] Name: LUCY CROWLEY V Rep #:[id number] : 2000 From: Wendy MORALES PA-C PCP: Dr. Heather Ruby, DO Status:A DM IN Location: MS3 AR900-5 HPI - General General Date of Admission: [...] then she went to the ED at [facility]. She was transferred to [facility] with choledocholithiasis on 09/25. Dr. Chacon performed an ERCP on 09/25 with several gallstones being removed and stent placement in the CBD and pancreatic duct. Patient notes when she came to the hospital she was noted to bejaundfranca. She states following the procedure and discharge, [...] ERCP, which prompted her to proceed to [facility] ED. Patient noted they did labs and [...] 34.1, Plt 217. Liver enzymes are normal. [facility] Medical History Biliary colic Home Medications ?Medication [...] 75.5 H, Lymph % (Auto) 17.3 L, Luquillo % (Auto) 4.9, Eos % (Auto) 1.2, [...] Sl. Cloudy, Urine pH 6.0, Ur Specific [place] 1.020, Urine Protein 30 H, Urine Glucose [...] (Auto) 75.6 H, Lymph % (Auto) 13.5 L,Luquillo % (Auto) 5.9, Eos % (Auto) 4.0, [...] sign, compatible with acute cholecystitis. [facility] & Plan Assessment/Plan (1) Acute cholecystitis: [...] patient's care. Charges/Coding Visit Charges Inpatient E&M: 28237 Init Hosp L2 (pre-op) 10/21/24 0829 <Electronically [...] today once an OR becomes available 10/21/24 1119<Electronically signed by Aquilino Collins MD> Cosigner Signature (if applicable): cc: ANIRUDH Santana; Dr. Heather Ruby DO; Dr. Aquilino Collins MD ~* Signed [facility] Work Phone: [phone]) [phone] Consult note [facility] Medical Records Department [address] [place] [address] Pre-Anesthesia Evaluation 10/21/24 1238 MR#: [id number] Acct: [id number] Name: LUCY CROWLEY V Rep #:[id number] : 2000 24 From: Saran Fragoso MD PCP: Dr. Heather Ruby DO Status:A DM IN Y Race: C Location: OR3 MS319 -1 ASA Classification* ASA Classification ASA Classification: [...] Laparoscopic cholecystectomy. 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: Anesthesia History - entry level accounting clerk Hx Hospitalization Any Problems With Anesthesia Cholinesterase [...] take am of surgery PONV PONV - entry level accounting clerk: PONV - entry level accounting clerk Female HX of Motion Sickness HX of N/V After Surgery Non-Smoker Duration of Surgery greater than 60 minutes Number of Risk Factors PONV Score Height & Weight Height & Weight: Anesthesia: Height & Weight Height 5 ft 6 in 10/20/24 21:23 Weight: 89.6 kg 10/20/24 21:23 Body Mass Index (BMI) 31.8 10/20/24 21:23 Respiratory Assessment Respiratory Assessment - entry level accounting clerk: Respiratory Tract Infection Hx - entry level accounting clerk Hx Respiratory Tract Infection STOP Sleep Apnea STOP Sleep Apnea - entry level accounting clerk: STOP Sleep Apnea - entry level accounting clerk Hx Hypertension No 10/20/24 21:23 Hx Sleep [...] 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 - entry level accounting clerk: Tobacco Use History - entry level accounting clerk Tobacco Use Smoking Status Never smoker 10/20/24 21:23 Hx Tobacco Use No 10/20/24 21:23 Years Smoking Packs Smoked per Day Smoking Cessation Date was within the last 15 years Hx Smoking Cessation Date Hx Smoking Cessation Counseling Hematologic Medial History Hematologic Hx - entry level accounting clerk: Hematologic Medical Hx - documentation spec Hx of Blood Transfusion No 10/20/24 21:23 [...] 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: /Reproductive Hx- entry level accounting clerk Hx Now No 10/20/24 21:23 Gestational Age [...] 1239 > Date _ Saran Fragoso MD Cosigner Signature: Date CC: ~ Signed [facility]05-14-2025 History and physical note [facility] Medical Records Department [address] [place] [address] History & Physical Exam 10/21/24 0754 MR#: [id number] Acct: [id number] Name: LUCY CROWLEY V Rep #:[id number] : 2000 24 From: Wendy MORALES PA-C PCP: Dr. Heather Ruby, DO Status:A DM IN Location: MS3 IN846-6 HPI - General General Date of Admission: [...] whichprompted delivery and then she went to theED at [facility]. She was transferred to [facility] with choledocholithiasis on 09/25. Dr. Chacon performed [...] at the end of November. Patient stated lastday she had increased pain similar to the pain she was experiencing just prior to having the ERCP, which prompted her to proceed to [facility] ED. Patient noted they did labs and [...] 34.1, Plt 217. Liver enzymes are normal. [facility] Medical History Biliary colic Home Medications ?Medication [...] 75.5 H, Lymph % (Auto) 17.3 L, Luquillo % (Auto) 4.9, Eos % (Auto) 1.2, [...] Sl. Cloudy, Urine pH 6.0, Ur Specific [place] 1.020, Urine Protein 30 H, Urine Glucose [...] %(Auto) 75.6 H, Lymph % (Auto) 13.5 L,Luquillo % (Auto) 5.9, Eos % (Auto) 4.0, [...] patient's care. Charges/Coding Visit Charges Inpatient E&M: 07730 Init Hosp L2 (pre-op) 10/21/24 0829 Cosigner [...] DO; Dr. Aquilino Collins MD ~* Signed [facility]05-14-2025 [facility] Medical Records Department [address] [place] [address] History Physical Exam 10/21/24 0754 MR#: [id number] Acct: [id number] Name: LUCY CROWLEY V Rep #: [id number] : 2000 24 From: Wendy MORALES PA-C PCP: Dr. Heather Ruby DO Status:ADM IN Location: [facility] MC935-5 HPI - General General Date of Admission: [...] then she went to the ED at [facility]. She was transferred to [facility] with choledocholithiasis on 09/25. Dr. Chacon performed [...] ERCP, which prompted her to proceed to [facility] ED. Patient noted they did labs and [...] 34.1, Plt 217. Liver enzymes are normal. [facility] Medical History Biliary colic Home Medications ???Medication [...] no addt'l complaints, except (more content not included)...[facility]05-13-2025 Discharge summary Author Dillan Wu [facility] Note Date/Time October 20, 2024 8:37p m [facility] Medical Records Department [address] [place] [address] Emergency Department Summary 10/20/24 MR#: [id number] Acct: [id number] Name: LUCY CROWLEY V Rep #:[id number] : 2000 24 From: Dillan Wu MD [...] gallstones with biliary colic wastransferred here [facility]. Dr. Chacon did ERCP remove several [...] 75.5 H Lymph % (Auto) 17.3 L Luquillo % (Auto) 4.9 Eos % (Auto) 1.2 [...] Sl. Cloudy Urine pH 6.0 Ur Specific [place] 1.020 Urine Protein 30 H Urine Glucose [...] sign, compatible with acute cholecystitis. Reading Location: [facility] Discharge Plan Dx/Rx/DC Orders Clinical Impression: Abdominal pain, Fever, Acute cholecystitis, Gallstone Disposition Disposition: Acute Care Hospital [facility] What to do if you have Problems For any increased pain, shortness of breath, bleeding, nausea or vomiting, chestpain, or any unexpected problems, contact your Primary Care Provider. Call [facility] ([phone]) or report to the closest Emergency Room. Call 911 if necessary. 10/20/242036 <Electronically signed by Dillan Wu MD> Cosigner Signature (if applicable): CC: Dr. Heather Ruby DO ~ Signed [facility] Work Phone: [phone] Discharge summary [facility] Medical Records Department [address] [place] [address] Emergency Department Summary 10/20/24 MR#: [id number] Acct: [id number] Name: LUCY CROWLEY V Rep #:[id number] : 2000 24 From: Dillan Wu MD [...] gallstones with biliary colic wastransferred here [facility]. Dr. Chacon did ERCP remove several [...] 75.5 H Lymph % (Auto) 17.3 L Luquillo % (Auto) 4.9 Eos % (Auto) 1.2 [...] Sl. Cloudy Urine pH 6.0 Ur Specific [place] 1.020 Urine Protein 30 H Urine Glucose [...] sign, compatible with acute cholecystitis. [facility] Discharge Plan Dx/Rx/DC Orders Clinical Impression: Abdominal pain, Fever, Acute cholecystitis, Gallstone Disposition Disposition: Acute Care Hospital [facility] What to do if you have Problems For any increased pain, shortness of breath, bleeding, nausea or vomiting, chestpain, or any unexpected problems, contact your Primary Care Provider. Call [facility] ([phone]) or report tothe closest Emergency Room. Call 911 if necessary. 10/20/242036 Cosigner Signature (if applicable): CC: Dr. Heather Ruby DO ~ Signed [facility]05-13-2025 Radiology Diagnostic study note [facility] Imaging Services [address] [place] [address] Gallbladder MR#: [id number] Acct: [id number] Name: LUCY CROWLEY V Rep #: [id number] : 2000 24 From: Sharri Love MD PCP: Dr. Heather Ruby DO Status: R ER Study:Gallbladder Date of Exam: 10/20/24 Exam# [id number] Ordering Dr: Srinath Wu MD PROCEDURE: GALLBLADDER [...] sign, compatible with acute cholecystitis. Reading Location: [facility] CC: Dr. Dillan Wu MD; Dr. Heather Ruby DO ~ Bobbin Coil Winder: Signed [facility]05-13-2025 Discharge summary Author Dillan Wu [facility] Note Date/Time October 20, 2024 8:37p m [facility] Medical Records Department [address] [place] [address] Emergency Department Summary 10/20/24 MR#: [id number] Acct: [id number] Name: LUCY CROWLEY V Rep #:[id number] : 2000 From: Dillan Wu MD PCP: [...] gallstones with biliary colic wastransferred here from [facility]. Dr. Chacon did ERCP remove several [...] 75.5 H Lymph % (Auto) 17.3 L Luquillo % (Auto) 4.9 Eos % (Auto) 1.2 [...] Sl. Cloudy Urine pH 6.0 Ur Specific [place] 1.020 Urine Protein 30 H Urine Glucose [...] sign, compatible with acute cholecystitis. Reading Location: [facility] Discharge Plan Dx/Rx/DC Orders Clinical Impression: Abdominal pain, Fever, Acute cholecystitis, Gallstone Disposition Disposition: Acute Care Hospital [facility] What to do if you have Problems For any increased pain, shortness of breath, bleeding, nausea or vomiting, chestpain, or any unexpected problems, contact your Primary Care Provider. Call [facility] ([phone]) or report to the closest Emergency Room. Call 911 if necessary. 10/20/242036 <Electronically signed by Dillan Wu MD> Cosigner Signature (if applicable): CC: Dr. Heather Ruby DO ~ Signed [facility] Work Phone: 1(473) 585-494204-23-2025 [facility] CON[facility] REPORT NAME ACCOUNT SEX AGE ADMIT DISCHARGE PT MED. RECORD# NUMBER DATE DATE TYPE CARLINE, [id number] F 24 09/24/2024 1 LUCY Roldan [id number] ROOM: 222 DATE OF : 2000 DICTATING PHYSICIAN: Julia Whitaker DATE OF CONSULTATION: September 24, 2024 REASON FOR CONSULTATION: Abdominal pain. HISTORY OF PRESENT ILLNESS: Mrs. Crowley is a 24-year-old female who presents to [facility] with approximately 24 hours of severe right [...] Page 1 of 2 LUCY CROWLEY V Mailing Manager Report CARLINE LUCY Jamar : 2000 ASSESSMENT: This is a 24-year-old [...] However, we do not offer ERCP at [facility], so she may need to be transferred [...] before proceeding with laparoscopic cholecystectomy. In addition, [facility] tends to shift women that have mitigating factors such as her because she is considered a high-risk . Dictated By: Julia Whitaker MD 09/24/2024 12:01 JOB #: [id number] Transcribed By: am 09/24/2024 12:57 Electronically signed by: E-SIGN DR. WHITAKER 09/30/24 12:56 Page 2 of 2 [facility] Discharge summary Author Carlin Negron [facility] Note Date/Time September 26, 2024 11: 37[facility] Medical Records Department [address] [facility] [place] [address] Discharge Summary 09/26/24 1123 MR#: [id number] Acct: [id number] Name: LUCY CROWLEY V Rep #:[id number] : 2000 24 From: Carlin Klein PCP: Dr. Heather Ruby DO Status:A DM IN Location: [address] Providers Date of Admission: 09/25/24 Date of Discharge: 09/26/24 Primary Care Physician: Dr. Heather Ruby DO Consultations 09/25/24 18:34 Consult: Gastroenterology Routine Consulting Provider: [facility] Reason for Consult: Choledocholithiasis EMERGENT Consult: [...] Plan The patient is a 24 y/o Mu-Ism F with history of biliary colic intermittently forabout 10 years but does not see a doctor often came to ED with epigastric and right upper quadrant pain 09/23 approximately 30 minutes following her meals associated nausea, emesis and diaphoresis. She was admitted in [place] on 09/24 where she was delivered/induced on 09/24/2024 at 38.6 weeks admitted vaginal delivery and then transferred to ER. #1. Acute choledocholithiasis with significant hyperbilirubinemia, with cholangitis: Patient has Charcot destroyed with RUQ abdominal pain, jaundice andchills. Patient admitted to [facility] floor. She had ERCP with biliary sphincterotomy [...] follow- up with Dr. Shaq Richter at [facility] for her cholecystectomy. He feels safe to [...] examined No fever, but chills in the [facility] Right upper quadrant pain has resolved. No [...] 77.6 H, Lymph % (Auto) 15.8 L, Luquillo % (Auto) 4.9, Eos % (Auto) 0.4, [...] (Auto) 70.3 H, Lymph % (Auto) 22.4, Luquillo % (Auto) 5.1, Eos % (Auto) 1.0, [...] of pancreatic and CBD stents. Reading Location: [id number] D/C Instructions Discharge Diet: Light diet - [...] Self Care Charges/Coding Visit Charges Inpatient E&M: 76249 Disch Hosp >30min 09/26/24 1137 <Electronically signed by Carlin Negron MD> Cosigner Signature (if applicable): CC: Dr. Heather Ruby DO; Dr. Cralin Negron MD~ Signed [facility] Work Phone: 1(266) 921-218504-19-2025 Discharge summary Author Carlin Negron [facility] Note Date/Time September 26, 2024 11: 23am [facility] Medical Records Department [address] [place] [address] Instructions for Home/Discharge Instructions 09/26/24 1118 MR#: [id number] Acct: [id number] Name: LUCY CROWLEY V Rep #:[id number] : 2000 From: Carlin Klein PCP: Dr. [...] CC: Dr. Chandan Mayo MD; Dr. Heather Ruby DO; Ld Chacon DO ~ Signed [facility] Work Phone: [phone]) 663-404204-19-2025 Discharge summary [facility] Medical Records Department [address] [place] [address] Discharge Summary 09/26/24 1123 MR#: [id number] Acct: [id number] Name: LUCY CROWLEY V Rep #:[id number] : 2000 From: Carlin Klein PCP: Dr. Heather Ruby DO Status:A DM IN Location: [place] [address] Providers Date of Admission: 09/25/24 Date of Discharge: 09/26/24 Primary Care Physician: Dr. Heather Ruby DO Consultations 09/25/24 18:34 Consult: Gastroenterology Routine Consulting Provider: [facility] Reason for Consult: Choledocholithiasis EMERGENT Consult: [...] Plan The patient is a 24 y/o Mu-Ism F with history of biliary colic intermittently [...] abdominal pain, jaundice andchills. Patient admitted to [facility]. She had ERCP with biliary sphincterotomy and [...] follow- up with Dr. Shaq Richter at [facility] for her cholecystectomy. He feels safe to [...] examined No fever, but chills in the [facility] Right upper quadrant pain has resolved. No [...] 77.6 H, Lymph % (Auto) 15.8 L, Luquillo % (Auto) 4.9, Eos % (Auto) 0.4, [...] (Auto) 70.3 H, Lymph % (Auto) 22.4, Luquillo % (Auto) 5.1, Eos % (Auto) 1.0, [...] of pancreatic and CBD stents. Reading Location: [id number] D/C Instructions Discharge Diet: Light diet - [...] Provider: Carlin Negron Primary Care Provider: Heather Rbuy Consulting Providers: Chandan Mayo; Ld Chacon Discharge [...] Self Care Charges/Coding Visit Charges Inpatient E&M: 56221 Disch Hosp >30min 09/26/24 1137 Cosigner Signature (if applicable): CC: Dr. Heather Ruby DO; Dr. Carlin Negron MD~ Signed [facility]04-19-2025 Discharge summary [facility] Medical Records Department [address] [place] [address] Instructions for Home/Discharge Instructions 09/26/24 1118 MR#: [id number] Acct: [id number] Name: CARLINELUCY V Rep #:[id number] : 2000 From: Carlin Klein PCP: Dr. [...] Provider: Carlin Negron Primary Care Provider: Heather Ruyb Consulting Providers: Chandan Mayo; Ld Chacon Discharge [...] MD CC: Dr. Chandan Mayo MD; SARA Andrdae DO ~ Signed [facility]04-19-2025 [facility] Medical Records Department [address] [place] [address] Discharge Summary 09/26/24 1123 MR#: [id number] Acct: [id number] Name: LUCY CROWLEY V Rep #: [id number] : 2000 From: Carlin Negron MD PCP: Dr. Heather Ruby DO Status:ADM IN Location: [facility] LD148-1 Providers Date of Admission: 09/25/24 Date of Discharge: 09/26/24 Primary Care Physician: Dr. Heather Ruby, DO Consultations 09/25/24 18:34 Consult: Gastroenterology Routine Consulting Provider: [facility] Reason for Consult: Choledocholithiasis EMERGENT Consult: [...] Plan The patient is a 24 y/o Mu-Ism F with history of biliary colic intermittently [...] pain, jaundice and chills. Patient admitted to [facility] floor. She had ERCP with biliary sphincterotomy [...] follow- up with Dr. Shaq Richter at [facility] for her cholecystectomy. He feels safe to [...] examined No fever, but chills in the [facility] Right upper quadrant pain has resolved. No [...] / Lab / M (more content not included)...[facility]04-19-2025 Consult note Author Chandan Mayo [facility] Note Date/Time September 26, 2024 9:1 9am [facility] Medical Records Department [address] [place] [address] Consultation - Surgical 09/26/24 0908 MR#: [id number] Acct: [id number] Name: LUCY CROWLEY V Rep #:[id number] : 2000 From: Chandan bell MD PCP: Dr. Heather Ruby, DO Status:A DM IN Location: [facility] EW757-6 Assessment & Plan Assessment/Plan (1) Choledocholithiasis: PLAN: Patient gave the day before presentation she presented then with choledocholithiasis. She had ERCP yesterday with stent placement and stone removal. She is feeling well this morning. I will start her on clear liquids. The patient would like to follow-up with Dr. Shaq Richter at [facility] for her cholecystectomy. I will refer her on Saturday. I gave her my card in case he is unable to do the surgery and she can follow-up with me. I believe she is safe to be discharged home today or tomorrow depending on hospitalist service. She has a stent in place to prevent further blockage. Chandan Mayo MD Pager: [facility] [address] [facility], [address] [place] [address] Office: HPI Consult Data Date of Consult: 09/26/24 HPI Narrative HPI Narrative: LUCY CROWLEY, is a 24 F who presents with choledocholithiasis from outside hospital. She underwent ERCP yesterday with stone removal and stent placement. Currently she is not having any pain. [facility] Medical History Biliary colic Home Medications ?Medication [...] 77.6 H, Lymph % (Auto) 15.8 L, Luquillo % (Auto) 4.9, Eos % (Auto) 0.4, [...] (Auto) 70.3 H, Lymph % (Auto) 22.4, Luquillo % (Auto) 5.1, Eos % (Auto) 1.0, [...] of pancreatic and CBD stents. Reading Location: [id number] 09/26/24 0919 <Electronically signed by Chandan Mayo MD> Cosigner Signature (if applicable): CC: Dr. Heather Ruby DO~ Signed [facility] Work Phone: [phone] 690-262704-19-2025 Consult note [facility] Medical Records Department [address] [place] [address] Consultation - Surgical 09/26/24 0908 MR#: [id number] Acct: [id number] Name: LUCY CROWLEY V Rep #:[id number] : 2000 From: Chandan bell MD PCP: Dr. Heather Ruby DO Status:A DM IN Location: MS3 XB916-4 Assessment & Plan Assessment/Plan (1) Choledocholithiasis: PLAN: Patient gave the day before presentation she presented then with choledocholithiasis. She had ERCP yesterday with stent placement and stone removal. She is feeling well this morning. I will start her on clear liquids. The patient would like to follow-up with Dr. Shaq Richter at [facility] for her cholecystectomy. I will refer her on Saturday. I gave her my card in case he is unable to do the surgery and she can follow-up with me. I believe she is safe to be discharged home today or tomorrow depending on hospitalist service. She has a stent in place to prevent further blockage. Chandan Mayo MD Pager: [facility] [address] [place] [address], [address] [place] [address] Office: HPI Consult Data Date of Consult: 09/26/24 HPI Narrative HPI Narrative: LUCY CROWLEY, is a 24 F who presents with choledocholithiasis from outside hospital. She underwentERCP yesterday with stone removal and stent placement. Currently she is not having any pain. [facility] Medical History Biliary colic Home Medications ?Medication [...] 77.6 H, Lymph % (Auto) 15.8 L, Luquillo % (Auto) 4.9, Eos % (Auto) 0.4, [...] (Auto) 70.3 H, Lymph % (Auto) 22.4, Luquillo % (Auto) 5.1, Eos % (Auto) 1.0, [...] of pancreatic and CBD stents. Reading Location: [id number] 09/26/24 0911 Cosigner Signature (if applicable): CC: Dr. Heather Ruby, DO~ Signed [facility]04-19-2025 Radiology Diagnostic study note [facility] Imaging Services [address] [place] [address] ERCP Biliary/Pancreas MR#: [id number] Acct: [id number] Name: LUCY CROWLEY V Rep #: [id number] : 2000 F 24 From: Duke Cruz MD PCP: Dr. Heather Ruby DO Status: A DM IN Study:ERCP Biliary/Pancreas Date of Exam: 09/25/24 Exam# [id number] Ordering Dr: Smitha Chacon DO EXAM: ERCP [...] of pancreatic and CBD stents. Reading Location: [facility] CC: Dr. Heather Ruby DO; Ld Chacon DO ~ Bobbin Coil Winder: Signed [facility]04-18-2025 Consult note Author Saran sheridan [facility] Note Date/Time September 25, 2024 6:0 5pm [facility] Medical Records Department [address] [place] [address] Anesthesia Postop Eval II 09/25/24 1805 MR#: [id number] Acct: [id number] Name: LUCY CROWLEY V Rep #:[id number] : 2000 24 From: Saran Fragoso MD PCP: Dr. Heather Ruby DO Status:A DM IN Y Race: C Location: [facility] MS304 -1 Anesthesia Postop Eval I Sum [...] MD Cosigner Signature: Date CC: ~ Signed [facility] Work Phone: 1([phone] 445-493404-18-2025 Consult note Author Saran [facility] Note Date/Time September 25, 2024 6:0 4pm [facility] Medical Records Department [address] [place] [address] Anesthesia Postop Eval I 09/25/241802 MR#: [id number] Acct: [id number] Name: LUCY CROWLEY V Rep #:[id number] : 2000 24 From: Saran Fragoso MD PCP: Dr. Heather Ruby, DO Status:A DM IN Y Race: C Location: [place] [address] Anesthesia: Postop Eval I Current Vital Signs [...] MD Cosigner Signature: Date CC: ~ Signed [facility] Work Phone: [phone] Consult note Author Ld Chacon [facility] Note Date/Time September 25, 2024 4:5 2pm [facility] Medical Records Department [address] [place] [address] Consultation - GI 09/25/24 1648 MR#: [id number] Acct: [id number] Name: LUCY CROWLEY V Rep #:[id number] : 2000 From: Ld Chacon DO PCP: Dr. Heather Ruby DO Status:R [facility] Location: [place] [address] HPI Consult Data Date of Consult: 09/25/24 HPI Narrative Reason for Consultation: Choledocholithiasis HPI Narrative: LUCY CROWLEY, is a 24 F who presents 24-year-old female who is A1 who was induced on 09/26/2024 at 38.6 weeks anddelivered via vaginal delivery who presents for right upper quadrant and epigastric pain from [facility]. She was a transfer. History taken by patient, medical record, Dr. Chacon. Patient states that she started having right upper quadrant/epigastric pain on Saturday. [facility] went [facility] on in which they induced her [...] transaminitis with a total bilirubin of 4.1. [facility] Medical History Biliary colic Home Medications ?Medication [...] 77.6 H, Lymph % (Auto) 15.8 L, Luquillo % (Auto) 4.9, Eos % (Auto) 0.4, [...] ongoing for sometime who presents to the [facility] ED on with history of being in [...] of 3. Charges/Coding Visit Charges Inpatient E&M: 86088 Init Hosp L3 09/25/24 1013 <Electronically signed by Ld Chacon DO> Cosigner Signature (if applicable): CC: Dr. Heather Ruby DO~ Signed [facility] Work Phone: 1([phone]) 155-504504-18-2025 Consult note Author Saran Fragoso [facility] Note Date/Time September 25, 2024 4:4 9pm [facility] Medical Records Department [address] [place] [address] Pre-Anesthesia Evaluation 09/25/24 1648 MR#: [id number] Acct: [id number] Name: LUCY CROWLEY V Rep #:[id number] : 2000 From: Saran Fragoso MD PCP: Dr. 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 Hx Hospitalization Any Problems With Anesthesia Cholinesterase [...] take am of surgery PONV PONV - entry level accounting clerk: PONV - entry level accounting clerk Female HX of Motion Sickness HX of N/V After Surgery Non-Smoker Duration of Surgery greater than 60 minutes Number of Risk Factors PONV Score Height & Weight Height & Weight: Anesthesia: Height & Weight Height 5 ft 4 in 09/25/24 13:44 Respiratory Assessment Respiratory Assessment - entry level accounting clerk: Respiratory Tract Infection Hx - entry level accounting clerk Hx Respiratory Tract Infection STOP Sleep Apnea STOP Sleep Apnea - entry level accounting clerk: STOP Sleep Apnea - entry level accounting clerk Hx Hypertension Hx Sleep Apnea CPAP BIPAP Do you snore loudly (louder than talking or can be heard Do you often feel tired/ fatigued/ sleepy during daytime? Has anyone observed you stop breathing during sleep? STOP Results QUESTION #5 FULL TEXT : Do you snore loudly (louder than talking or can be heard through closed doors)? 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 Specify any problems Hx of Preganancy in last 3 Months Nurse Filling Out Transfusion & Questions: Date: Time: Patient unable to answer at this time (ie. 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: /Reproductive Hx- entry level accounting clerk Hx Now Gestational Age (in weeks): EDC: [...] no additional complaints, except as documented. 09/25/24 5406 <Electronically signed by Saran Fragoso MD > Date _ Saran Fragoso MD Cosigner Signature: Date CC: ~ Signed [facility] Work Phone: 1(210) [phone] History and physical note Author Radha Romano [facility] Note Date/Time September 25, 2024 4:4 0pm [facility] Medical Records Department [address] [place] [address] H&P Exam - Hospitalist 09/25/24 1614 MR#: [id number] Acct: [id number] Name: LUCY CROWLEY V Rep #:[id number] : 2000 From: Radha Romano MD PCP: Dr. Heather Ruby, DO Status:R [place] [facility] [place] [facility] A-1 HPI - General General Date of Admission: 09/25/24 Date of Service: 09/25/24 Chief Complaint: Epigastric pain. HPI Narrative The patient is a 24 y/o Mu-Ism F w/ PMHx: Biliary colic which from description has been ongoing for some time who presents to the [facility] ED with history of being in her [...] cramps prompting outside facility ED evaluation at [facility]. Patient was admitted and delivered a healthy with no concerns per discussion with patient and spouse as well as review of facility records. 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 Chacon who recommended ERCP and was under the impression patient was being transferred to [facility] for treatment but secondary to cost and patient/spouse preference they ended up coming by private drive and presented tothe ED. Patient notes that when her pain [...] following ERCP per discussion with ED physician. [facility] Medical History (Updated 09/25/24 @ 16:28 by [...] 77.6 H, Lymph % (Auto) 15.8 L, Luquillo % (Auto) 4.9, Eos % (Auto) 0.4, [...] Plan The patient is a 24 y/o Mu-Ism F w/ PMHx: Biliary colic which from description has been ongoing for some time who presents to the [facility] ED with history of being in her [...] cramps prompting outside facility ED evaluation at [facility]. #1. Acute choledocholithiasis with significant hyperbilirubinemia, transaminitis, [...] prophylaxis: SCDs. Charges/Coding Visit Charges Inpatient E&M: 33651 Init Hosp L2 09/25/24 1640 <Electronically signed by Radha Romano MD> Cosigner Signature (if applicable): CC: Dr. Radha Romano MD; Dr. Heather Ruby, DO~ Signed [facility] Work Phone: 1(257) 891-547604-18-2025 Evaluation note* Diagnosis Onset Date Resolution Status Admit Date Choledocholithiasis acute September 25, 2024 4:14pm Vaginal delivery acute September 252024 4:14pm [facility] Work Phone: 1([phone]) 995-991904-18-2025 Evaluation note* Diagnosis Onset Date Resolution Status Admit Date Choledocholithiasis resolved September 25, 2024 4:14pm Vaginal delivery resolved September 252024 4:14pm History of biliary stent insertion a cute October 09, 2024 8:34am Abdominal pain acute October 20, 2024 8:46pm Acute cholecystitis acute October 082024 8:46pm Fever acute October 20, 2024 8:46pm Gallstone acute October 20, 2024 8:46pm [facility] Work Phone: [phone] 522-892704-18-2025 Evaluation note* Diagnosis Onset Date Resolution Status [...] insertion a cute October 20, 2024 8:46pm [facility] Work Phone: [phone] 742-506904-18-2025 Evaluation note* Diagnosis Onset Date Resolution Status [...] Bile leak acute October 28, 2024 1:07pm [facility] [place] Work Phone: [phone] 928-651304-18-2025 Evaluation note* Diagnosis Onset Date Resolution Status [...] Bile leak acute October 28, 2024 1:07pm Bile leak acute November 03, 2024 2:01pm Hx of cholecystectomy acute November 03, 2024 2:01pm Bile leak acute November 03, 2024 3:23pm History of biliary stent insertion a cute November 03, 2024 3:23pm Hx of cholecystectomy acute November 03, 2024 3:23pm [facility] [place] Work Phone: 1(158) 717-407704-18-2025 Evaluation note* Diagnosis Onset Date Resolution Status [...] Bile leak acute October 28, 2024 1:07pm Bile leak acute November 03, 2024 2:01pm Hx of cholecystectomy acute November 03, 2024 2:01pm Bile leak acute November 03, 2024 3:23pm History of biliary stent insertion a cute November 03, 2024 3:23pm Hx of cholecystectomy acute November 03, 2024 3:23pm Bile leak acute November 12, 2024 8:47am Hx of cholecystectomy acute Nov 8:47am Bile leak acute November 13, 2024 6:03am [facility] Work Phone: 1(673) 681-789504-18-2025 Consult note [facility] Medical Records Department [address] [place] [address] Anesthesia Postop Eval II 09/25/24 1805 MR#: [id number] Acct: [id number] Name: LUCY CROWLEY V Rep #:[id number] : 2000 From: Saran Fragoso MD PCP: Dr. Heather Ruby, DO Status:A DM IN Y Race: C Location: OR3 MS304 -1 Anesthesia Postop Eval I Sum [...] 0 nausea: No Vomiting: No 09/25/24 1805 > Date _ [facility] Date CC: ~ Signed [facility]04-18-2025 Consult note [facility] Medical Records Department [address] [place] [address] Anesthesia Postop Eval I 09/25/24 180 MR#: [id number] Acct: [id number] Name: LUCY CROWLEY V Rep #:[id number] : 2000 From: Saran Fragoso MD PCP: Dr. Heather Ruby, DO Status:A DM IN Y Race: C Location: MS3 MS304 -1 Anesthesia: Postop Eval I Current [...] Yes 09/25/24 1804 > Date _ Saran Fragoso MD Cosigner Signature: Date CC: ~ Signed [facility]04-18-2025 Discharge summary Author Florentin Zamudio [facility] Note Date/Time September 25, 2024 4:0 2pm [facility] Medical Records Department [address] [place] [address] Emergency Department Summary 09/25/24 MR#: [id number] Acct: [id number] Name: LUCY CROWLEY V Rep #:[id number] : 2000 From: Florentin vega DO PCP: Dr. Heather Ruby, DO Status:R EG ER Location: ED HPI History of Present Illness Chief Complaint: Abd Pain Narrative Narrative: Chief complaint and HPI: Right upper quadrant with epigastric abdominal pain. 24-year-old female who is A1 who was induced on 09/26/2024 at 38.6 weeks anddelivered via vaginal delivery who presents for right upper quadrant and epigastric pain from [facility]. She was a transfer. History taken by patient, medical record, Dr. Chacon. Patient states that she started having right upper quadrant/epigastric pain on Saturday. She went [facility] on in which they induced her [...] right upper quadrant and epigastric pain from [facility]. See HPI. Patient was induced secondaryto her [...] 77.6 H Lymph % (Auto) 15.8 L Luquillo % (Auto) 4.9 Eos % (Auto) 0.4 [...] DO [Primary Care Provider] - Print Language: Israeli What to do if you have Problems For any increased pain, shortness of breath, bleeding, nausea or vomiting, chestpain, or any unexpected problems, contact your Primary Care Provider. Call [facility] ([phone]) or report to the closest Emergency Room. Call 911 if necessary. 09/25/24 1602 <Electronically signed by Florentin Zamudio DO> Cosigner Signature (if applicable): CC: Dr. Heather Ruby DO ~ Signed [facility] Work Phone: 1(541) 911-270304-18-2025 Procedure note [facility] Medical Records Department [address] [place] [address] ERCP Report MR#: [id number] Acct: [id number] Name: LUCY CROWLEY V Rep #:[id number] : 2000 24 From: Ld Chacon DO [...] hours 22 minutes 5 seconds Findings: The real estate financial analyst film was normal. The esophagus was successfully [...] bile duct. Procedure Code(s): --- Professional --- 79701, Endoscopic retrograde cholangiopancreatography (ERCP); with placement of endoscopic stent into biliary or pancreatic duct, including pre- and post-dilation and guide wire passage, when performed, including sphincterotomy, when performed, each stent 39197, 59, Endoscopic retrograde cholangiopancreatography (ERCP); with placement of endoscopic stent into biliary or pancreatic duct, including pre- and post-dilation and guide wire passage, when performed, including sphincterotomy, when performed, each stent 53989, Endoscopic retrograde cholangiopancreatography (ERCP); with removal of calculi/debris from biliary/pancreatic duct(s) 63358, 26, Combined endoscopic catheterization of the biliary and pancreatic ductal systems, radiological supervision and interpretation CPT copyright 2021 [employer]. All rights reserved. The codes documented in this report are preliminary and upon process machine operator review may be revised to meet current compliance requirements. Ld Chacon DO 09/25/2024 5:55:43 PM This report has been signed electronically. Number of Addenda: 0 Note Initiated On: 09/25/2024 5:02 PM 09/25/24 1756 Date _ Ld Chacon DO Cosigner Signature: Date (if indicated) CC: Dr. Heather Ruby DO; Ld Chacon DO ~ Date Dictated: 09/25/24 1702 Date Transcribed: Bobbin Coil Winder: RF Signed [facility]04-18-2025 Consult note [facility] Medical Records Department [address] [place] [address] Consultation - GI 09/25/24 1648 MR#: [id number] Acct: [id number] Name: LUCY CROWLEY V Rep #:[id number] : 2000 From: Ld Chacon DO PCP: Dr. Heather Ruby, DO Status:R EG [facility] [place] [facility] A-1 HPI Consult Data Date of Consult: 09/25/24 HPI Narrative Reason for Consultation: Choledocholithiasis HPI Narrative: LUCY CROWLEY, is a 24 F who presents 24-year-old female who is A1 who was induced on 09/26/2024 at 38.6 weeks anddelivered via vaginal delivery who presents for right upper quadrant and epigastric pain from [facility]. She was a transfer. History taken by patient, medical record, Dr. Chacon. Patient states that she started having right upper quadrant/epigastric pain on Saturday. [facility] [...] transaminitis with a total bilirubin of 4.1. [facility] Medical History Biliary colic Home Medications ?Medication [...] 77.6 H, Lymph % (Auto) 15.8 L, Luquillo % (Auto) 4.9, Eos % (Auto) 0.4, [...] ongoing for sometime who presents to the [facility] ED on with history of being in [...] of 3. Charges/Coding Visit Charges Inpatient E&M: 45562 Init Hosp L3 09/25/24 1652 Cosigner Signature (if applicable): CC: Dr. Heather Ruby DO~ Signed [facility]04-18-2025 Consult note [facility] Medical Records Department [address] [place] [address] Pre-Anesthesia Evaluation 09/25/24 1648 MR#: [id number] Acct: [id number] Name: LUCY CROWLEY V Rep #:[id number] : 2000 From: Saran Fragoso MD PCP: Dr. 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 Hx Hospitalization Any Problems With Anesthesia Cholinesterase [...] take am of surgery PONV PONV - entry level accounting clerk: PONV - entry level accounting clerk Female HX of Motion Sickness HX of N/V After Surgery Non-Smoker Duration of Surgery greater than 60 minutes Number of Risk Factors PONV Score Height & Weight Height & Weight: Anesthesia: Height & Weight Height 5 ft 4 in 09/25/24 13:44 Respiratory Assessment Respiratory Assessment - entry level accounting clerk: Respiratory Tract Infection Hx - entry level accounting clerk Hx Respiratory Tract Infection STOP Sleep Apnea STOP Sleep Apnea - entry level accounting clerk: STOP Sleep Apnea - entry level accounting clerk Hx Hypertension Hx Sleep Apnea CPAP BIPAP Do you snore loudly (louder than talking or can be heard Do you often feel tired/ fatigued/ sleepy during daytime? Has anyone observed you stop breathing during sleep? STOP Results QUESTION #5 FULL TEXT : Do you snore loudly (louder than talking or can be heard through closeddoors)? 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 Specify any problems Hx of Preganancy in last 3 Months Nurse Filling Out Transfusion & Questions: Date: Time: Patient unable to answer at this time (ie. 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: /Reproductive Hx- entry level accounting clerk Hx Now Gestational Age (in weeks): EDC: [...] documented. 09/25/24 1649 > Date _ Saran Fragoso MD Cosigner Signature: Date CC: ~ Signed [facility]04-18-2025 History and physical note [facility] Medical Records Department [address] [place] [address] H&P Exam - Hospitalist 09/25/24 1614 MR#: [id number] Acct: [id number] Name: LUCY CROWLEY V Rep #:[id number] : 2000 24 From: Radha Romano MD PCP: Dr. Heather Ruby, DO Status:R EG [facility] [place] [facility] A-1 HPI - General General Date of Admission: 09/25/24 Date of Service: 09/25/24 Chief Complaint: Epigastric pain. HPI Narrative The patient is a 24 y/o Mu-Ism F w/ PMHx: Biliary colic which from description has been ongoing for some time who presents to the [facility] ED with history of being in her [...] cramps prompting outside facility ED evaluation at [facility]. Patient was admitted and delivered a healthy with no concerns per discussion with patient and spouse as well as review of facility records. 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 Chacon who recommended ERCP and was under the impression patient was being transferred to [facility] for treatment but secondary to cost and [...] following ERCP per discussion with ED physician. [facility] Medical History (Updated 09/25/24 @ 16:28 by [...] 77.6 H, Lymph % (Auto) 15.8 L, Luquillo % (Auto) 4.9, Eos % (Auto) 0.4, [...] Plan The patient is a 24 y/o Mu-Ism F w/ PMHx: Biliary colic which from description has been ongoing for some time who presents to the [facility] ED with history of being in her [...] cramps prompting outside facility ED evaluation at [facility]. #1. Acute choledocholithiasis with significant hyperbilirubinemia, transaminitis, [...] prophylaxis: SCDs. Charges/Coding Visit Charges Inpatient E&M: 68285 Init Hosp L2 09/25/24 1640 Cosigner Signature (if applicable): CC: Dr. Radha Roamno MD; Dr. Heather Ruby DO~ Signed [facility]04-18-2025 Discharge summary [facility] Medical Records Department [address] [place] [address] Emergency Department Summary 09/25/24 MR#: [id number] Acct: [id number] Name: LUCY CROWLEY V Rep #:[id number] : 2000 From: Florentin vega DO PCP: [...] right upper quadrant and epigastric pain from [facility]. She was a transfer. History taken by patient, medical record, Dr. Chacon. Patient states that she started having right upper quadrant/epigastric pain on Saturday. She went [facility] on in which they induced her [...] right upper quadrant and epigastric pain from [facility]. See HPI. Patient was induced secondaryto her [...] 77.6 H Lymph % (Auto) 15.8 L Luquillo % (Auto) 4.9 Eos % (Auto) 0.4 [...] DO [Primary Care Provider] - Print Language: Israeli What to do if you have Problems For any increased pain, shortness of breath, bleeding, nausea or vomiting, chestpain, or any unexpected problems, contact your Primary Care Provider. Call [facility] ([phone]) or report tothe closest Emergency Room. Call 911 if necessary. 09/25/24 1602 Cosigner Signature (if applicable): CC: Dr. Heather Ruby DO ~ Signed [facility]04-18-2025 Discharge summary Author Florentin Zamudio [facility] Note Date/Time September 25, 2024 4:0 2pm [facility] Medical Records Department [address] [place] [address] Emergency Department Summary 09/25/24 MR#: [id number] Acct: [id number] Name: LUCY CROWLEY V Rep #:[id number] : 2000 24 From: Florentin vega DO [...] right upper quadrant and epigastric pain from [facility]. She was a transfer. History taken by patient, medical record, Dr. Chacon. Patient states that she started having right upper quadrant/epigastric pain on Saturday. She went [facility] on in which they induced her [...] right upper quadrant and epigastric pain from [facility]. See HPI. Patient was induced secondaryto her [...] 77.6 H Lymph % (Auto) 15.8 L Luquillo % (Auto) 4.9 Eos % (Auto) 0.4 [...] DO [Primary Care Provider] - Print Language: Israeli What to do if you have Problems For any increased pain, shortness of breath, bleeding, nausea or vomiting, chestpain, or any unexpected problems, contact your Primary Care Provider. Call [facility] ([phone]) or report to the closest Emergency Room. Call 911 if necessary. 09/25/24 1602 <Electronically signed by Florentin Zamudio DO> Cosigner Signature (if applicable): CC: Dr. Heather Ruby DO ~ Signed [facility] Work Phone: 1(209) 729-761603-07-2024 NotePROCEDURE: ULTRASOUND 1ST TRIMESTER W TRANSVAGINAL, 08/15/2023 [...] 1.8 cm maternal left ovarian corpus luteal cystVan Wert County HospitalConsult note Author Saran Fragoso [facility] Note Date/Time November 13, 2024 11:52 am [facility] Medical Records Department [address] [place] [address] Anesthesia Postop Eval II 11/13/24 1102 MR#: [id number] Acct: [id number] Name: LUCY CROWLEY V Rep #:[id number] : 2000 From: Saran Fragoso MD PCP: Dr. Heather Ruby, DO Status:R EG SDC Y Race: C Location: [place] [address] Anesthesia Postop Eval I Sum Postop Eval Completion status Anesthesia document: Postop Eval 1 completed: Yes Anesthesia Postop Eval I Summary Anesthesia Postop Eval I Summary: Anesthesia Postop Eval I: Assessment Summary Airway patent Yes 11/13/24 09:04 [email or web address] Spontaneous unlabored Yes 11/13/24 09:04 [email or web address] respirations Mental status Awake 11/13/24 09:04 [email or web address] nausea No 11/13/24 09:04 [email or web address] Vomiting No 11/13/24 09:04 [email or web address] Anesthesia Postop Eval I: Fluid Summary Crystalloid volume administer 900 11/13/24 09:04 [email or web address] (ml) Colloids volume administered ( ml) Blood Product volume administered (ml) Total IV fluid infused 900 11/13/24 09:04 [email or web address] Anesthesia Postop Eval I: Summary Notes Anesthesia Complication No 11/13/24 09:04 [email or web address] Anesthesia Complication Comment: Post-operative progress note Anesthesia: Postop Eval II Evaluation Mental status: Awake Pain Level: 0 nausea: No Vomiting: No 11/13/24 1102 <Electronically signed by Saran Fragoso MD > Date _ Saran Fragoso MD Cosign Signature: Date CC: ~ Signed [facility] Work Phone: Discharge summary Author Aquilino Collins [facility] Note Date/Time October 23, 2024 1:18p m [facility] Medical Records Department [address] [place] [address] Discharge Summary 10/23/24 1305 MR#: [id number] Acct: [id number] Name: LUCY CROWLEY V Rep #:[id number] : 2000 24 From: Aquilino Collins MD PCP: Dr. Heather Ruby, DO Status:A DM IN Location: [facility] VM479-6 Providers Date of Admission: 10/20/24 Date of [...] She presented to the emergency department at [facility] with right upper quadrant pain and fevers. [...] % (Auto) 57.9, Lymph % (Auto) 30.5, Luquillo % (Auto) 4.4, Eos % (Auto) 5.8 [...] Ruby DO; Dr. Aquilino Collins MD~ Signed [facility] Work Phone: Evaluation noteNo assessment information available [facility] Work Phone: Reason for referral (narrative)No reason for referral information availableWBrown Memorial Hospital Work Phone: Summary Purpose Family History No Family History Records FoundNo Family History Records FoundNo Family History Records Found Advance Directives Advance Directive Response Recorded Date/ Time Living Will No September 25, 2024 2:02pm Do you have a Healthcare Power of Maternity Floor Supervisor? No September 25, 2024 2:02pm Advance Directive Response Recorded Date/ Time Living Will No September 25, 2024 6:42pm Do you have a Healthcare Power of Maternity Floor Supervisor? No September 25, 2024 6:42pm Advance Directive Response Recorded Date/ Time Living Will No September 25, 2024 6:42pm Do you have a Healthcare Power of Maternity Floor Supervisor? No September 25, 2024 6:42pm Do you have a Healthcare Power of Maternity Floor Supervisor? No October 20, 2024 5:54pm Advance Directive Response Recorded Date/ Time Living Will No September 25, 2024 6:42pm Do you have a Healthcare Power of Maternity Floor Supervisor? No September 25, 2024 6:42pm Do you have a Healthcare Power of Maternity Floor Supervisor? No October 20, 2024 9:23pm Advance Directive Response Recorded Date/ Time Living Will No September 25, 2024 6:42pm Do you have a Healthcare Power of Maternity Floor Supervisor? No September 25, 2024 6:42pm Do you have a Healthcare Power of Maternity Floor Supervisor? No November 11, 2024 12:40pm Do you have a Healthcare Power of Maternity Floor Supervisor? No October 20, 2024 9:23pm Chief Complaint [...] -PER DR COLLINS November 03, 2024 3:23pm Chief Complaint Admit Date ABD PAIN September [...] -PER DR COLLINS November 03, 2024 3:23pm S/P LAP JOSE M November 12, 2024 8:47a m Reason for Visit Admit Date Choledocholithiasis [...] Bile leak October 28, 2024 1:07p m Bile leak November 03, 2024 2:01p m Hx of cholecystectomy November 03, 2024 2:0 1pm Bile leak November 03, 2024 3:23p m History of biliary stent insertion October 092024 3:23pm Hx of cholecystectomy November 03, 2024 3:2 3pm Reason for Visit Admit Date Choledocholithiasis September [...] Bile leak October 28, 2024 1:07p m Bile leak November 03, 2024 2:01p m Hx of cholecystectomy November 03, 2024 2:0 1pm Bile leak November 03, 2024 3:23p m History of biliary stent insertion October 092024 3:23pm Hx of cholecystectomy November 03, 2024 3:2 3pm Bile leak November 12, 2024 8:47a m Hx of cholecystectomy November 12, 2024 8:4 7am Bile leak November 13, 2024 6:03a m Additional Source Comments INFORMATION SOURCE (unrecogn ized section and content) DATE CREATED AUTHOR 08/19/2023 [facility] DATE CREATED AUTHOR AUTHOR'S ORGANIZ ATION 10/18/2024 [facility] DATE CREATED AUTHOR AUTHOR'S ORGANIZ ATION 11/14/2024 [facility] Care Teams (unrecognized sec tion and content) Team Status: Active Member Role Status Dates Dr. Heather Ruby , DO Primary Care Provider Active Team Status: Inactive Member Role Status Dates Dr. Florentin Zamudio DO Emergency Provider Activ e Start: September 25, 2024 End: September 26, 2024 Dr. Heather Ruby , DO Primary Care Provider Active Start: September 25, 2024 End: September 26, 2024 Dr. Ld Chacon , DO Admit Provider Active St art: September 25, [...] Member Role Status Dates Dr. Florentin Zamudio , DO Emergency Provider Activ e Start: September [...] Status: Active Member Role Status Dates Dr. Flornetin Zamudio DO Emergency Provider Activ e Start: [...] September 25, 2024 Dr. Ld Chacon DO Attending Provider Active Start: September 25, 2024 Dr. Ld Chacon , DO Other Provider Active St art: September 25, 2024 Dr. Radha Romano MD Referring Provider Active Start: September 25, 2024 Team Status: Active Member Role Status Dates Dr. Florentin Zamudio DO Emergency Provider Activ e Start: September 26, 2024 Dr. Heather Ruby DO Primary Care Provider Active Start: September 26, 2024 Dr. Ld Chacon DO Admit Provider Active St art: September 26, 2024 Dr. Ld Chacon DO Other Provider [...] Inactive Member Role Status Dates Dr. Heather Rbuy DO Primary Care Provider Active Start: October [...] Provider Active Start: October 22, 2024 Dr. Dillan Wu MD Emergency Provider Active S tart: October 22, 2024 Dr. Aquilino Collins MD Admit Provider Active St art: October 22, 2024 Dr. Aquilino Collins MD Other Provider Active St art: October 22, 2024 Wendy MORALES PA-C Attending Provider Active Start: October 22, 2024 [...] 2024 End: November 03, 2024 Team Status: Active Member Role Status Dates Dr. Heather Ruby DO Primary Care Provider Active Start: October 21, 2024 Dr. Dillan Wu MD Emergency Provider Active S tart: October 21, 2024 Dr. Aquilino Collins MD Admit Provider Active St art: October 21, 2024 Dr. Aquilino Collins MD Attending Provider Active Start: October 21, 2024 Dr. Aquilino Collins MD Other Provider Active St art: October 21, 2024 Team Status: Inactive Member Role Status Dates Dr. Heather Ruby DO Primary Care Provider Active Start: November 12, 2024 End: November 12, 2024 Dr. Heather Ruby DO Referring Provider Active Start: November 12, 2024 End: November 12, 2024 Dr. Aquilino Collins MD Attending Provider Active Start: November 12, 2024 End: November 12, 2024 Team Status: Inactive Member Role Status Dates Dr. Heather Ruby DO Primary Care Provider Active Start: November 13, 2024 End: November 13, 2024 Dr. Heather Ruby DO Referring Provider Active Start: November 13, 2024 End: November 13, 2024 Dr. Ld Chacon DO Attending Provider Active Start: November 13, 2024 End: November 13, 2024 Team Status: Active Member Role Status Dates Dr. Heather Ruby DO Primary Care Provider Active Start: November 13, 2024 Dr. Heather Ruby DO Referring Provider Active Start: November 13, 2024 Dr. Ld Chacon DO Attending Provider Active Start: November 13, 2024 Dr. Ld Chacon DO Other Provider Active St art: November 13, 2024 Goals (unrecognized section and content) Goals [...] BE BASED ON THE PRIMARY CLINICAL RECORDS. [facility], [facility]. provides no warranty or guarantee of the accuracy or completeness of information in this document.
[2024-11-14 17:36] VITALS: PULSE 103; RESP 18; BMI 32.1
[2024-11-14 17:38] VITALS: BP 109/73; PULSE 103; RESP 18; TEMP 37.6; O2SAT 98
--- NOTE | 2024-11-14 17:39 | CT_ITS ---
PROCEDURE: ABDOMEN/PELVIS W IV CONT ONLY 11/14/2024 REASON FOR EXAM: BILE LEAK TECHNIQUE: Abdomen and pelvis CT with intravenous contrast. Coronal and Sagittal reconstruction series were provided. PATIENT PREPARATION: Per protocol ORAL CONTRAST TYPE: None. CONTRAST: Isovue 370 VOLUME: 100 mL One or more dose reduction techniques were used (e.g., Automated exposure control, adjustment of the mA and/or kV according to patient size, use of iterative reconstruction technique. RADIATION DOSE SUMMARY: CTDlvol: 33 mGy DLP: 1200 mGycm COMPARISON: HIDA scan 10/28/2024. FINDINGS: Lung bases: Bibasilar atelectasis. The heart is normal in size. Liver: The liver is normal in size without suspicious hepatic mass. The major portal veins are patent. Mild biliary ductal dilation with pancreatic and biliary stents in place. Surgical drain within the gallbladder fossa. Gallbladder: Prior partial cholecystectomy. Spleen: Normal size. Pancreas: Unremarkable. Adrenals: No adrenal mass. Kidneys: No hydronephrosis or nephrolithiasis. Bladder: Contrast opacifies the urinary bladder. The urinary bladder is mildly distended and grossly unremarkable. Reproductive Organs: Normal uterine size and contour. Ovaries are unremarkable. Bowel: Prior surgical resections and anastomosis. Focal area of dilated small bowel loops within the lower right abdomen measuring up to 5.4 cm (coronal image 36). Visualization for small bowel obstruction is limited without the use of oral contrast material. Small volume free fluid within the pelvic cul-de-sac. No pneumoperitoneum. Prior appendectomy. Lymph nodes: No suspicious lymphadenopathy. Vasculature: The abdominal aorta and IVC are normal. Bones/soft tissues: No aggressive osseous lesions. CT/Abdomen/Pelvis W IV Cont ONLY IMPRESSION: 1. Dilated small bowel loops within the right lower abdomen within the region o f the prior bowel resections, which may represent ileus/bowel obstruction. Visualization is limited without the use of oral cont rast material. No pneumoperitoneum. 2. Mild biliary ductal dilation with pancreatic and biliary stents in place. 3. Bibasilar atelectasis. Reading Location: [facility]
[2024-11-14 18:12] LABS: Hematocrit 31.4 % (37-47); Hemoglobin 10.8 g/dL (12.0-15.0); Mean Corp Hgb Conc 34.4 g/dL (32-36); Mean Corpuscular Hgb 30.1 pg (27.0-32.0); Mean Corpuscular Volume 87.5 fL (81-99); Mean Platelet Vol. 10.7 fl (6.2-12.0); POSITIVE MORPHOLOGY YES; Platelet Count 145 K/mm3 (150-450); RBC Distribution Width CV 12.9 % (11.6-14.6); RBC Distribution Width SD 41.1 fl (35.1-43.9); Red Blood Count 3.59 M/mm3 (4.2-5.4)
[2024-11-14 18:13] LABS: Differential Indicated SCAN CRITERIA MET
[2024-11-14 18:24] LABS: ALB/GLOB Ratio 1.3 RATIO (0.9-2.4); AST(SGOT) 134 U/L (<=31); Alanine Aminotransfer ALT/SGPT 211 U/L (<=34); Albumin, Serum 3.6 g/dL (3.5-5.0); Alkaline Phosphatase 119 U/L (35-104); Anion Gap 12 (5-15); BUN 8 mg/dL (4-19); BUN/Creat Ratio 11.1 RATIO (10-20); Calcium,Total 8.2 mg/dL (7.6-11.0); Carbon Dioxide 21.8 mmol/L (21.0-32.0); Chloride 105 mmol/L (98-108); Creatinine, Serum 0.75 mg/dL (0.70-1.20); EST Glomerular Filtration Rate 113 (>60); Estimated Creatinine Clearance 134.36 ml/min (50-250); Globulin 2.7 g/dL (2.2-4.2); Glucose 102 mg/dL (70-99); Lipase 18 U/L (13-75); Magnesium 1.4 mg/dL (1.5-2.2); Potassium 3.4 mmol/L (3.3-5.1); Protein, Total 6.3 g/dL (5.9-8.4); Sodium Level 138 mmol/L (133-145); Total Bilirubin 0.91 mg/dL (0.00-1.30)
[2024-11-14] MEDS: Lactated Ringers 1,000 ML 100 ML IV (18:32)
[2024-11-14 18:51] LABS: Platelet Estimate A (ADEQ); Red Cell Morphology NORM C+C NORMAL (NORM C&C)
[2024-11-14] MEDS: 0.9% Saline Lock 10 ML Syringe IV (19:04)
[2024-11-14] MEDS: Morphine 2 MG/ML Syringe IV (19:04)
--- NOTE | 2024-11-14 19:22 | CON.PCM.GI_ITS ---
HPI Consult Data Date of Consult: 11/14/24 HPI Narrative HPI Narrative: SUSANNA CROWLEY, is a 24 F with a history of cholecystitis and choledocholithiasis status post ERCP with stent placement and subtotal cholecystectomy for extremely inflamed and chronically thickened gallbladder. She developed a bile leak about a week after the procedure. She had already had a sphincterotomy and stent placed. AYSE drain was draining bilious output. Due to persistent bile leak she comes in for stent removal, occlusion cholangiogram and placement of longer stents or fully covered metal stents for treatment of bile leak. She underwent ERCP with stent exchange. She came back to the hospital with abdominal tenderness in the right lower quadrant and periumbilical region. She was afebrile. White blood cell count was normal. She still having a significant amount of drainage from her AYSE drain as per the patient. CT/Abdomen/Pelvis W IV Cont ONLY IMPRESSION: 1. Dilated small bowel loops within the right lower abdomen within the region of the prior bowel resections, which may represent ileus/bowel obstruction. Visualization is limited without the use of oral contrast material. No pneumoperitoneum. 2. Mild biliary ductal dilation with pancreatic and biliary stents in place. 3. Bibasilar atelectasis. [facility] Medical History Wears glasses Non-smoker Bile leak Biliary colic Home Medications ?Medication ?Instructions ?Recorded ?Last Taken ?Type NK 11/12/24 Unknown History Allergy/AdvReac Type Severity Reaction Status Date / Time No Known Allergies Allergy Verified 11/13/24 06:45 Family History Mother No problems noted. Father No problems noted. Surgical History History of ERCP Hx of cholecystectomy Hx of appendectomy Social History household members: spouse, children and other details: 2 older children at home, 1 miscarriage, 1 09/24/24. Smoking Status: Never smoker alcohol intake: never substance use type: does not use ROS Constitutional Constitutional: Reports chills and malaise; Denies anorexia, change in weight, fatigue, fever(s), night sweats, weakness or other Eyes Eyes: Denies blurry vision, change in eye color, change in vision, discharge from eye(s), double vision, erythema, eye pain, loss of vision or other ENT HEENT: Denies abnormal hearing, dysphagia, ear pain, epistaxis, headache(s), hearing loss, nasal congestion, nasal discharge, post nasal drip, sinus pressure, sore throat or other Cardiovascular Cardiovascular: Denies chest pain, claudication, dyspnea on exertion, edema, lightheadedness, orthopnea, palpitations, paroxysmal nocturnal dyspnea, rapid heart rate, syncope or other Respiratory/Chest Respiratory/Chest: Denies cough, dyspnea, excessive phlegm production, hemoptysis, productive cough, shortness of breath at rest, shortness of breath with exertion, wheezing or other Gastrointestinal Gastrointestinal: Reports abdominal pain, dyspepsia, nausea and vomiting; Denies coffee ground emesis, constipation, diarrhea, hematemesis, hematochezia, loose stools, melena or other Genitourinary Genitourinary: Denies burning urination, difficulty urinating, dysuria, hematuria, nocturia, urinary frequency, urinary hesitancy, urinary incontinence, urinary urgency or other Musculoskeletal Musculoskeletal: Reports back pain; Denies arthralgias, joint pain, joint stiffness, joint swelling, myalgias, neck pain or other Neurologic Neurologic: Denies abnormal gait, abnormal speech, confusion, disequilibrium, dizziness, focal weakness, headache(s), numbness, paresthesias, seizure-like activity, seizures, syncope, tingling, tremor(s) or other Psychiatric Psychiatric: Denies anxiety, depression, homicidal ideation, suicidal ideation or other Endocrine Endocrinology: Denies change in body appearance, cold intolerance, excessive sweating, heat intolerance, polydipsia, polyuria or other Hematologic/Lymphatic Hematologic/Lymphatic: Denies anemia, easy bleeding, easy bruising, lymphadenopathy or other Allergic/Immunologic Allergic/Immunologic: Denies rhinitis, hives, eczemia, asthma or other Physical Exam Narrative She is alert and oriented x 3. She is in no acute distress. Abdomen is soft And appropriately tender. AYSE drain with clear and small amount of bile tinged output Lab / Micro Data 11/14/24 17:40 11/14/24 17:40 Labs: Laboratory Results - last 24 hr 11/14/24 17:40: WBC 9.0, RBC 3.59 L, Hgb 10.8 L, Hct 31.4 L, MCV 87.5, MCH 30.1, MCHC 34.4, RDW Std Deviation 41.1, RDW Coeff of Rebeca 12.9, Plt Count 145 L, MPV 10.7, Neut % (Auto) Not Reportable, Platelet Estimate A, RBC Morphology NORM C+C, Sodium 138, Potassium 3.4, Chloride 105, Carbon Dioxide 21.8, Anion Gap 12, BUN 8, Creatinine 0.75, Estim Creat Clear Calc 134.36, Est GFR (MDRD) Non-Af 113, BUN/Creatinine Ratio 11.1, Glucose 102 H, Calcium 8.2, Magnesium 1.4 L, Total Bilirubin 0.91, AST 134 H, ALT 211 H, Alkaline Phosphatase 119 H, Total Protein 6.3, Albumin 3.6, Globulin 2.7, Albumin/Globulin Ratio 1.3, Lipase 18 Imaging Radiology Impression Abdomen/Pelvis CT 11/14/24 17:39 IMPRESSION: 1. Dilated small bowel loops within the right lower abdomen within the region of the prior bowel resections, which may represent ileus/bowel obstruction. Visualization is limited without the use of oral contrast material. No pneumoperitoneum. 2. Mild biliary ductal dilation with pancreatic and biliary stents in place. 3. Bibasilar atelectasis. Reading Location: [id number] Assessment & Plan Assessment/Plan (1) Transaminitis: (2) Nausea & vomiting: (3) Abdominal pain: (4) Bile leak: (5) Hx of cholecystectomy: (6) Abnormal CT of the abdomen: PLAN: 24-year-old who is 10 weeks who presented with abdominal pain and was diagnosed with acute choledocholithiasis and acute cholecystitis approximately 8 weeks ago. She underwent ERCP with stone removal and temporary stent placement. She came back and had worsening abdominal pain to [facility] while awaiting evaluation at [facility] for elective cholecystectomy with acute cholecystitis. She underwent a subtotal cholecystectomy. She had persistent bile leak so her plastic stent was exchanged for metal stent. She comes back in today with abdominal distention and abdominal pain. CT scan abdomen pelvis shows metal stent in place without any other abnormalities except for dilated small bowel to 5.4 cm possibly secondary to ileus versus small bowel obstruction. Recommend surgical consultation. Patient would likely need a contrast study such as small bowel follow-through or CT with oral contrast. She will also likely need stent exchange with longer bilateral intrahepatic stents or removal of fully covered metal stent with surgery to repair bile leak. Charges/Coding Visit Charges Inpatient E&M: 45175 Init Hosp L3
[2024-11-14 19:23] LABS: Basophil% 0.4 % (0-1); Eosinophils% 0.2 % (0-5); Lymphocyte % 13.6 % (19-41); Monocyte% 8.2 % (0-10); Neutrophil % 76.9 % (47-70)
[2024-11-14 19:24] LABS: Absolute Neutrophil Count 6.9 X10^3/uL (2.0-7.7); Neutrophil # 6.89 X10^3/uL (2.7-7.7)
[2024-11-14 19:25] LABS: Absolute Lymphocyte Count 1.22 X10^3/uL (0.83-4.51); Basophil# 0.04 X10^3/uL; Eosinophil# 0.02 X10^3/uL; Lymphocyte # 1.22 X10^3/ul (0.83-4.51); Monocyte# 0.74 X10^3/uL
[2024-11-14] MEDS: Magnesium Sulfate 2 GM in Dextrose 5%-Water (100mL Bag) 100 ML IV (19:56)
[2024-11-14 20:04] VITALS: BP 99/70; PULSE 102; RESP 17; TEMP 37.3; O2SAT 95
[2024-11-14 20:05] VITALS: PULSE 104
[2024-11-14] MEDS: 0.9% Normal Saline (1000mL) 1,000 ML 100 ML IV (21:17)
[2024-11-14] MEDS: Piperacil/Tazobactam 3.375 GM in 0.9% Normal Saline (50mL MB+) 50 ML IV (22:27)
[2024-11-14] MEDS: Docusate Sodium 100 MG Capsule PO (22:51)
[2024-11-15 02:10] VITALS: BP 106/68; PULSE 93; RESP 16; TEMP 37.6; O2SAT 94
[2024-11-15] MEDS: Morphine 2 MG/ML Syringe IV ×3 (05:19→18:48)
[2024-11-15] MEDS: 0.9% Saline Lock 10 ML Syringe IV ×2 (05:19→18:48)
[2024-11-15] MEDS: Piperacil/Tazobactam 3.375 GM in 0.9% Normal Saline (50mL MB+) 50 ML IV ×3 (05:21→21:27)
[2024-11-15 05:55] LABS: Absolute Lymphocyte Count 1.52 X10^3/uL (0.83-4.51); Absolute Neutrophil Count 5.8 X10^3/uL (2.0-7.7); Basophil# 0.02 X10^3/uL; Basophil% 0.3 % (0-1); Eosinophil# 0.15 X10^3/uL; Eosinophils% 1.9 % (0-5); Hematocrit 33.3 % (37-47); Hemoglobin 11.3 g/dL (12.0-15.0); Lymphocyte # 1.52 X10^3/ul (0.83-4.51); Lymphocyte % 19.1 % (19-41); Mean Corp Hgb Conc 33.9 g/dL (32-36); Mean Corpuscular Hgb 29.8 pg (27.0-32.0); Mean Corpuscular Volume 87.9 fL (81-99); Mean Platelet Vol. 10.5 fl (6.2-12.0); Monocyte# 0.46 X10^3/uL; Monocyte% 5.8 % (0-10); NRBC Flagged by Analyzer 0 % (0-5); Neutrophil # 5.77 X10^3/uL (2.7-7.7); Neutrophil % 72.5 % (47-70); Platelet Count 147 K/mm3 (150-450); RBC Distribution Width CV 12.7 % (11.6-14.6); RBC Distribution Width SD 41.1 fl (35.1-43.9); Red Blood Count 3.79 M/mm3 (4.2-5.4)
[2024-11-15 06:05] LABS: Phosphorus 2.4 mg/dL (2.7-4.5)
[2024-11-15 06:11] LABS: ALB/GLOB Ratio 1.2 RATIO (0.9-2.4); AST(SGOT) 75 U/L (<=31); Alanine Aminotransfer ALT/SGPT 147 U/L (<=34); Albumin, Serum 3.2 g/dL (3.5-5.0); Alkaline Phosphatase 117 U/L (35-104); Anion Gap 12 (5-15); BUN 8 mg/dL (4-19); BUN/Creat Ratio 11.3 RATIO (10-20); Calcium,Total 8.6 mg/dL (7.6-11.0); Carbon Dioxide 21.1 mmol/L (21.0-32.0); Chloride 104 mmol/L (98-108); Creatinine, Serum 0.72 mg/dL (0.70-1.20); EST Glomerular Filtration Rate 119 (>60); Estimated Creatinine Clearance 139.96 ml/min (50-250); Globulin 2.7 g/dL (2.2-4.2); Glucose 82 mg/dL (70-99); Potassium 3.4 mmol/L (3.3-5.1); Protein, Total 5.9 g/dL (5.9-8.4); Sodium Level 137 mmol/L (133-145); Total Bilirubin 1.02 mg/dL (0.00-1.30)
--- NOTE | 2024-11-15 06:30 | PN.HOSP_ITS ---
Subjective Subjective Continues to have generalized abdominal pain which does improve with morphine Objective Data Objective Data Vital Signs: Vital Signs Temp Pulse Resp BP Pulse Ox O2 Del Method 99.7 F H 93 16 106/68 94 Room Air 11/15/24 02:10 11/15/24 02:10 11/15/24 02:10 11/15/24 02:10 11/15/24 02:10 11/15/24 02:10 Oxygen Delivery Method Room Air Weight: 205 lb 6.4 oz Body Mass Index (BMI) 32.1 Intake & Output: Intake and Output for Last 24 Hours 11/14/24 11/15/24 11/16/24 03:59 03:59 03:59 Intake Total 629 / 629 Output Total 40 / 40 Balance 589 / 589 Lab / Micro Data 11/15/24 05:15 11/15/24 05:15 Labs: Laboratory Results - last 24 hr 11/14/24 17:40: WBC 9.0, RBC 3.59 L, Hgb 10.8 L, Hct 31.4 L, MCV 87.5, MCH 30.1, MCHC 34.4, RDW Std Deviation 41.1, RDW Coeff of Rebeca 12.9, Plt Count 145 L, MPV 10.7, Immature Gran % (Auto) 0.700, Neut % (Auto) 76.9 H, Lymph % (Auto) 13.6 L, Garden % (Auto) 8.2, Eos % (Auto) 0.2, Baso % (Auto) 0.4, Absolute Neuts (auto) 6.9, Absolute Lymphs (auto) 1.22, Platelet Estimate A, RBC Morphology NORM C+C, Sodium 138, Potassium 3.4, Chloride 105, Carbon Dioxide 21.8, Anion Gap 12, BUN 8, Creatinine 0.75, Estim Creat Clear Calc 134.36, Est GFR (MDRD) Non-Af 113, BUN/Creatinine Ratio 11.1, Glucose 102 H, Calcium 8.2, Magnesium 1.4 L, Total Bilirubin 0.91, AST 134 H, ALT 211 H, Alkaline Phosphatase 119 H, Total Protein 6.3, Albumin 3.6, Globulin 2.7, Albumin/Globulin Ratio 1.3, Lipase 18 11/15/24 05:15: WBC 8.0, RBC 3.79 L, Hgb 11.3 L, Hct 33.3 L, MCV 87.9, MCH 29.8, MCHC 33.9, RDW Std Deviation 41.1, RDW Coeff of Rebeca 12.7, Plt Count 147 L, MPV 10.5, Immature Gran % (Auto) 0.400, Neut % (Auto) 72.5 H, Lymph % (Auto) 19.1, Garden % (Auto) 5.8, Eos % (Auto) 1.9, Baso % (Auto) 0.3, Absolute Neuts (auto) 5.8, Absolute Lymphs (auto) 1.52, Nucleated RBC % 0, Sodium 137, Potassium 3.4, Chloride 104, Carbon Dioxide 21.1, Anion Gap 12, BUN 8, Creatinine 0.72, Estim Creat Clear Calc 139.96, Est GFR (MDRD) Non-Af 119, BUN/Creatinine Ratio 11.3, Glucose 82, Calcium 8.6, Phosphorus 2.4 L, Magnesium 2.0, Total Bilirubin 1.02, AST 75 H, ALT 147 H, Alkaline Phosphatase 117 H, Total Protein 5.9, Albumin 3.2 L, Globulin 2.7, Albumin/Globulin Ratio 1.2 Radiography Diagnostic Testing: Radiology Impression Abdomen/Pelvis CT 11/14/24 17:39 IMPRESSION: 1. Dilated small bowel loops within the right lower abdomen within the region of the prior bowel resections, which may represent ileus/bowel obstruction. Visualization is limited without the use of oral contrast material. No pneumoperitoneum. 2. Mild biliary ductal dilation with pancreatic and biliary stents in place. 3. Bibasilar atelectasis. Reading Location: [facility] Physical Exam Narrative General: Alert, Oriented x3, Cooperative, No apparent distress HEENT: Atraumatic, PERRLA, EOMI, Normocephalic Oral: Moist Mucosa Neck: Supple, No JVD Lungs: Diminished, Normal air movement, No rhonchi, No wheeze, No rales Cardiovascular: Regular rate, Regular Rhythm, Normal S1, Normal S2, No murmurs Abdomen: Soft, nontender to palpation currently, Non-Distended, No Hepato- splenomegaly, AYSE right upper quadrant Extremities: No edema, Capillary Refill Less than 3 Seconds Skin: No rashes, No breakdown Musculoskeletal: No Tenderness to Palpation of Joints or Extremities Neurological: No focal neurological deficits, Motor Exam 5/5 strength throughout, Sensory exam intact to light touch and pain Psych/Mental Status: Normal Affect, Appropriate Assessment & Plan Assessment/Plan (1) Bile leak: (2) Abdominal pain: (3) Transaminitis: PLAN: Plan 1. Abdominal pain and nausea and vomiting with leukocytosis and elevated LFTs after a subtotal cholecystectomy with a bile leak with placement of a covered stent in her common bile duct on 11/13/2024 ? Per gastroenterology's recommendation we will consult general surgery as she continues to have a bile leak evidenced by the significant fluid collection her AYSE drain ? Continue clear liquids ? Zosyn, leukocytosis has resolved ? Pain medications ? May have an ileus ? There continues to be improvement in her LFTs and her total bilirubin is normal indicating that there is no obstruction ? Culture of the drain fluid is pending 2. Anemia ? Very mild and she is ? Her hemoglobin is at her baseline ? No intervention planned 3. She is so limits mobility and will provide pumping supplies as she is breast-feeding DVT: Lovenox Charges/Coding Visit Charges Inpatient E&M: 71996 Subs Hosp L2
[2024-11-15 08:10] VITALS: BP 119/75; PULSE 88; RESP 18; TEMP 36.9; O2SAT 95
--- NOTE | 2024-11-15 08:56 | EX.PCM.CON.S ---
Assessment & Plan Assessment/Plan (1) Dilated bowel: PLAN: Patient is a 24-year-old female admitted following ERCP with stent exchange by gastroenterology for ongoing management of a bile leak status post subtotal cholecystectomy 10/21/2024. Surgery is asked to consult on the question whether patient displays evidence of either bowel obstruction or ileus. In eliciting patient's history and performing exam I am not concerned for an obstructive process. I spent a while clarifying patient's surgical history which was initially listed as appendectomy. However, on probing further she reports a history of perforated appendicitis and more extensive bowel resection. Based on her limited recall it sounds as though she underwent a ileocecectomy. This would better explain the crossing staple lines that I see on her CT imaging. It also could explain dilation of the new ileocolic junction if there was a antiperistaltic connection made resulting in relative stasis. Patient confirms that she has an appetite so I find it reasonable to return her to a diet but will monitor for tolerance and perform serial abdominal exams. (2) Bile leak: PLAN: Patient with ongoing bile leak status post subtotal cholecystectomy. There appears to be minimal bilious output to her surgical drain on exam and her LFTs are downtrending. This appears suggestive that her newly placed covered stent has sealed the cystic duct tributary. However, I reviewed the procedure cholangiograms and find evidence of some possible luminal filling defects within the cystic duct so I have alerted gastroenterology to this observation. I would be concerned if patient has persistent cystic duct stones this may not allow for the cystic duct to fully involute as intended. HPI Consult Data Date of Consult: 11/15/24 HPI Narrative Reason for Consultation: Concern for possible small bowel obstruction HPI Narrative: SUSANNA CROWLEY, is a 24 F who presents to [facility] 1 day following common bile duct exchange with gastroenterology for management of a biliary leak. Patient is well-known to this service after subtotal cholecystectomy performed by Dr. Collins on 10/21/2024. She and her share that upon returning home she experienced progressive abdominal discomfort low-grade fevers, chills, and vomiting. Patient's ER workup included comprehensive metabolic panel and CT imaging of the abdomen pelvis. The former showed modestly elevated liver function tests while the latter was read by radiology is concerning for possible small bowel obstruction versus ileus with mildly dilated bowel of the right lower quadrant. Patient today shares that her pain is persistent but less intense. She denies any nausea and confirms a strong appetite. She also confirms that she has been passing flatus but has not had a bowel movement since her admission. [facility] Medical History Wears glasses Non-smoker Bile leak Biliary colic Home Medications ?Medication ?Instructions ?Recorded ?Last Taken ?Type NK 11/12/24 Unknown History Allergy/AdvReac Type Severity Reaction Status Date / Time No Known Allergies Allergy Verified 11/13/24 06:45 Family History Mother No problems noted. Father No problems noted. Surgical History History of ERCP Hx of cholecystectomy Hx of appendectomy Social History household members: spouse, children and other details: 2 older children at home, 1 miscarriage, 1 09/24/24. Smoking Status: Never smoker alcohol intake: never substance use type: does not use Physical Exam Const alert, oriented x3 and no apparent distress Resp normal respiratory effort GI GI Narrative: Obese, surgical drain in right upper quadrant with thin brown serous output of minimal volume, soft, nondistended, nontender to palpation x 4 quadrants Lab / Micro Data 11/15/24 05:15 11/15/24 05:15 Labs: Laboratory Results - last 24 hr 11/14/24 17:40: WBC 9.0, RBC 3.59 L, Hgb 10.8 L, Hct 31.4 L, MCV 87.5, MCH 30.1, MCHC 34.4, RDW Std Deviation 41.1, RDW Coeff of Rebeca 12.9, Plt Count 145 L, MPV 10.7, Immature Gran % (Auto) 0.700, Neut % (Auto) 76.9 H, Lymph % (Auto) 13.6 L, Ralls % (Auto) 8.2, Eos % (Auto) 0.2, Baso % (Auto) 0.4, Absolute Neuts (auto) 6.9, Absolute Lymphs (auto) 1.22, Platelet Estimate A, RBC Morphology NORM C+C, Sodium 138, Potassium 3.4, Chloride 105, Carbon Dioxide 21.8, Anion Gap 12, BUN 8, Creatinine 0.75, Estim Creat Clear Calc 134.36, Est GFR (MDRD) Non-Af 113, BUN/Creatinine Ratio 11.1, Glucose 102 H, Calcium 8.2, Magnesium 1.4 L, Total Bilirubin 0.91, AST 134 H, ALT 211 H, Alkaline Phosphatase 119 H, Total Protein 6.3, Albumin 3.6, Globulin 2.7, Albumin/Globulin Ratio 1.3, Lipase 18 11/15/24 05:15: WBC 8.0, RBC 3.79 L, Hgb 11.3 L, Hct 33.3 L, MCV 87.9, MCH 29.8, MCHC 33.9, RDW Std Deviation 41.1, RDW Coeff of Rebeca 12.7, Plt Count 147 L, MPV 10.5, Immature Gran % (Auto) 0.400, Neut % (Auto) 72.5 H, Lymph % (Auto) 19.1, Ralls % (Auto) 5.8, Eos % (Auto) 1.9, Baso % (Auto) 0.3, Absolute Neuts (auto) 5.8, Absolute Lymphs (auto) 1.52, Nucleated RBC % 0, Sodium 137, Potassium 3.4, Chloride 104, Carbon Dioxide 21.1, Anion Gap 12, BUN 8, Creatinine 0.72, Estim Creat Clear Calc 139.96, Est GFR (MDRD) Non-Af 119, BUN/Creatinine Ratio 11.3, Glucose 82, Calcium 8.6, Phosphorus 2.4 L, Magnesium 2.0, Total Bilirubin 1.02, AST 75 H, ALT 147 H, Alkaline Phosphatase 117 H, Total Protein 5.9, Albumin 3.2 L, Globulin 2.7, Albumin/Globulin Ratio 1.2 Imaging Radiology Impression Abdomen/Pelvis CT 11/14/24 17:39 IMPRESSION: 1. Dilated small bowel loops within the right lower abdomen within the region of the prior bowel resections, which may represent ileus/bowel obstruction. Visualization is limited without the use of oral contrast material. No pneumoperitoneum. 2. Mild biliary ductal dilation with pancreatic and biliary stents in place. 3. Bibasilar atelectasis. Reading Location: [id number] Charges/Coding Visit Charges Inpatient E&M: 26254 Subs Hosp L2
[2024-11-15] MEDS: Enoxaparin 40 MG/0.4 ML Syringe SC (08:58)
[2024-11-15] MEDS: Docusate Sodium 100 MG Capsule PO ×2 (10:28→21:26)
[2024-11-15 15:00] VITALS: BP 118/82; PULSE 87; RESP 16; TEMP 36.4; O2SAT 96
[2024-11-15] MEDS: 0.9% Normal Saline (1000mL) 1,000 ML 100 ML IV (16:21)
[2024-11-15 20:15] VITALS: BP 102/68; PULSE 80; RESP 17; TEMP 37.4; O2SAT 97
[2024-11-16] VITALS (14 sets, daily range): BP systolic 100–135; BP diastolic 59–83; PULSE 71–98; RESP 16–18; TEMP 36.1–37; O2SAT 93–98; BMI 32.1
[2024-11-16] MEDS: 0.9% Saline Lock 10 ML Syringe IV ×3 (01:56→20:29)
[2024-11-16] MEDS: Morphine 2 MG/ML Syringe IV ×3 (01:56→18:46)
[2024-11-16] MEDS: Piperacil/Tazobactam 3.375 GM in 0.9% Normal Saline (50mL MB+) 50 ML IV ×3 (05:10→20:31)
[2024-11-16 06:32] LABS: Absolute Neutrophil Count 3.5 X10^3/uL (2.0-7.7); Basophil# 0.02 X10^3/uL; Basophil% 0.3 % (0-1); Eosinophils% 4.9 % (0-5); Hematocrit 30.7 % (37-47); Hemoglobin 10.5 g/dL (12.0-15.0); Lymphocyte % 29.4 % (19-41); Mean Corp Hgb Conc 34.2 g/dL (32-36); Mean Corpuscular Hgb 30.1 pg (27.0-32.0); Mean Platelet Vol. 10.5 fl (6.2-12.0); Monocyte# 0.45 X10^3/uL; Monocyte% 7.3 % (0-10); NRBC Flagged by Analyzer 0 % (0-5); Neutrophil # 3.53 X10^3/uL (2.7-7.7); Neutrophil % 57.6 % (47-70); Platelet Count 152 K/mm3 (150-450); RBC Distribution Width CV 12.7 % (11.6-14.6); RBC Distribution Width SD 40.5 fl (35.1-43.9); Red Blood Count 3.49 M/mm3 (4.2-5.4); White Blood Count 6.1 K/mm3 (4.4-11.0)
[2024-11-16 07:20] LABS: Anion Gap 10 (5-15); BUN 6 mg/dL (4-19); BUN/Creat Ratio 8.5 RATIO (10-20); Calcium,Total 8.5 mg/dL (7.6-11.0); Carbon Dioxide 24.4 mmol/L (21.0-32.0); Chloride 106 mmol/L (98-108); Creatinine, Serum 0.75 mg/dL (0.70-1.20); EST Glomerular Filtration Rate 113 (>60); Estimated Creatinine Clearance 134.36 ml/min (50-250); Glucose 101 mg/dL (70-99); Potassium 3.4 mmol/L (3.3-5.1); Sodium Level 141 mmol/L (133-145)
[2024-11-16] MEDS: Docusate Sodium 100 MG Capsule PO ×2 (08:26→20:31)
[2024-11-16] MEDS: Polyethylene Glycol 3350 17 GM PACKET PO (08:26)
--- NOTE | 2024-11-16 09:15 | PCM.PN.SRG ---
Subjective Subjective Patient seen and evaluated during AM rounds. She is found resting in bed. She states that she is still experiencing episodic abdominal pains. She confirms she tolerated her transitional diet without subsequent nausea. She is passing flatus but has not had a bowel movement since her admission. Objective Data Objective Data Vital Signs: Vital Signs Temp Pulse Resp BP Pulse Ox O2 Del Method 98.6 F 72 16 109/74 96 Room Air 11/16/24 08:11 11/16/24 08:11 11/16/24 08:11 11/16/24 08:11 11/16/24 08:11 11/16/24 08:11 Oxygen Delivery Method Room Air Weight: 205 lb 6.4 oz Body Mass Index (BMI) 32.1 Intake & Output: Intake and Output for Last 24 Hours 11/14/24 11/15/24 11/16/24 23:59 23:59 23:59 Intake Total 579 / 579 2500 / 2500 550 / 550 Output Total 40 / 40 90 / 90 35 / 35 Balance 539 / 539 2410 / 2410 515 / 515 Lab / Micro Data 11/16/24 06:03 11/16/24 06:03 Labs: Laboratory Results - last 24 hr 11/16/24 06:03: WBC 6.1, RBC 3.49 L, Hgb 10.5 L, Hct 30.7 L, MCV 88.0, MCH 30.1, MCHC 34.2, RDW Std Deviation 40.5, RDW Coeff of Rebeca 12.7, Plt Count 152, MPV 10.5, Immature Gran % (Auto) 0.500, Neut % (Auto) 57.6, Lymph % (Auto) 29.4, Washburn % (Auto) 7.3, Eos % (Auto) 4.9, Baso % (Auto) 0.3, Absolute Neuts (auto) 3.5, Absolute Lymphs (auto) 1.80, Nucleated RBC % 0, Sodium 141, Potassium 3.4, Chloride 106, Carbon Dioxide 24.4, Anion Gap 10, BUN 6, Creatinine 0.75, Estim Creat Clear Calc 134.36, Est GFR (MDRD) Non-Af 113, BUN/Creatinine Ratio 8.5 L, Glucose 101 H, Calcium 8.5 Physical Exam Const oriented x3 and no apparent distress Resp normal respiratory effort GI GI Narrative: Mildly distended, right upper quadrant drain with scant thin brown output, soft, nontender to palpation x 4 quadrant Assessment & Plan Assessment/Plan (1) Dilated bowel: PLAN: Patient is a 24-year-old female admitted following ERCP with stent exchange by gastroenterology for ongoing management of a bile leak status post subtotal cholecystectomy 10/21/2024. Surgery is asked to consult on the question whether patient displays evidence of either bowel obstruction or ileus. In eliciting patient's history and performing exam I am not concerned for an obstructive process. I spent a while clarifying patient's surgical history which was initially listed as appendectomy. However, on probing further she reports a history of perforated appendicitis and more extensive bowel resection. Based on her limited recall it sounds as though she underwent a ileocecectomy. This would better explain the crossing staple lines that I see on her CT imaging. It also could explain dilation of the new ileocolic junction if there was a antiperistaltic connection made resulting in relative stasis. Patient confirms that she has an appetite so I find it reasonable to return her to a diet but will monitor for tolerance and perform serial abdominal exams. Patient has minimal distention otherwise benign abdominal exam. She continues to pass flatus and has tolerated transitional diet. Therefore, I do believe she is constipated, I do not believe she is experiencing a small bowel obstruction. I have ordered a dose of MiraLAX to try to treat her constipation. Defer additional clinical management to patient's hospitalist service and gastroenterology. (2) Bile leak: PLAN: Patient with ongoing bile leak status post subtotal cholecystectomy. There appears to be minimal bilious output to her surgical drain on exam and her LFTs are downtrending. This appears suggestive that her newly placed covered stent has sealed the cystic duct tributary. However, I reviewed the procedure cholangiograms and find evidence of some possible luminal filling defects within the cystic duct so I have alerted gastroenterology to this observation. I would be concerned if patient has persistent cystic duct stones this may not allow for the cystic duct to fully involute as intended. Charges/Coding Visit Charges Inpatient E&M: 66125 Subs Hosp L2
--- NOTE | 2024-11-16 09:52 | RAD_ITS ---
PROCEDURE: ERCP BILIARY/PANCREAS 11/16/2024 REASON FOR EXAM: ABD PAIN TECHNIQUE: Fluoroscopic views during ERCP. Fluoroscopy time 220 seconds. Radiation dose 49.5 mGy. COMPARISON: CT scan on 11/16/2024. FINDINGS: Surgical drain is noted. 2 biliary stents have been inserted in good position in the right, left hepatic biliary tree, common bile duct reaching the duodenum. Pancreatic stent is noted in good position. RAD/ERCP Biliary/Pancreas IMPRESSION: Insertion of 2 biliary stents and the pancreatic stent in good position. [facility]
[2024-11-16 10:50] LABS: AST(SGOT) 35 U/L (<=31); Alanine Aminotransfer ALT/SGPT 99 U/L (<=34); Albumin, Serum 3.3 g/dL (3.5-5.0); Alkaline Phosphatase 133 U/L (35-104); Bilirubin, Direct 0.45 mg/dL (0.00-0.30); Globulin 2.7 g/dL (2.2-4.2); Total Bilirubin 0.85 mg/dL (0.00-1.30)
[2024-11-16 12:53] LABS: Internal QC Validated? YES +Cl - CLEAR BKGD; Pregnancy, Urine Negative Negative
--- NOTE | 2024-11-16 14:58 | PCM.PRE.AN2 ---
ASA Classification* ASA Classification ASA Classification: 2 Assessment & Plan Anesthesia* Anesthesia Assessment Anesthesia Assessment: Discussed sedation and/or anesthesia options, risks, benefits, and alternatives with patient/parents/legal guardian/POA. Questions invited. The patient/parents/legal guardian/POA seems to understand and agrees to proceed with anesthesia plan. Reviewed the physical assessment, medical history, allergy history and patient home medications list prior to surgery/procedure/anesthetic and documented any changes. Performed airway and anesthesia risk assessments. Anesthesia Type Anesthesia Type: General Anesthesia Focused Assessment* Temperature: 98.1 F Pulse Rate: 74 Blood Pressure: 112/68 Respiratory Rate: 16 Pulse Ox: 97 Airway Assessment Mouth opens: >3 cm Mallampati Score: II Labs Anesthesia Preop lab: CBC WBC 6.1 K/mm3 (4.4-11.0) 11/16/24 06:03 11/16/24 RBC 3.49 M/mm3 (4.2-5.4) L 11/16/24 06:03 11/16/24 Hgb 10.5 g/dL (12.0-15.0) L 11/16/24 06:03 11/16/24 Hct 30.7 % (37-47) L 11/16/24 06:03 11/16/24 Plt Count 152 K/mm3 (150-450) 11/16/24 06:03 11/16/24 CHEMISTRY Potassium 3.4 mmol/L (3.3-5.1) 11/16/24 06:03 11/16/24 Sodium 141 mmol/L (133-145) 11/16/24 06:03 11/16/24 Magnesium 2.0 mg/dL (1.5-2.2) 11/15/24 05:15 11/15/24 Phosphorus 2.4 mg/dL (2.7-4.5) L 11/15/24 05:15 11/15/24 BUN 6 mg/dL (4-19) 11/16/24 06:03 11/16/24 Creatinine 0.75 mg/dL (0.70-1.20) 11/16/24 06:03 11/16/24 Glucose 101 mg/dL (70-99) H 11/16/24 06:03 11/16/24 COAG PT 13.4 SECONDS (11.7-14.9) 10/21/24 05:20 10/21/24 Urine Test Negative Negative 11/16/24 12:00 11/16/24 Pre-Assessment Diagnosis/Proposed Procedure Planned Operative Procedure(s): ERCP. Anesthesia History Anesthesia History - junction maker: Anesthesia History - junction maker Hx Hospitalization Yes: 10/202411/11/24 12:40 Any Problems With Anesthesia No 11/16/24 12:44 Cholinesterase deficiency No 11/16/24 12:44 You/Your Family Experience No 11/16/24 12:44 fever (hyperthermia) with Relationship Recent Exposure to Contagious No 11/16/24 12:44 Disease Does patient have nerve No 11/16/24 12:44 stimulator Patient instructed to have device shut off --Does patient have Pacemaker No 11/16/24 13:58 or ICD? When Was Last Pacemaker Check QUESTION #4 FULL TEXT: You/Your Family Experience fever (hyperthermia) with Anesthesia Last Oral Intake Last Oral intake: Last Oral Intake NPO since 08:30 11/16/24 13:58 Meds taken in AM with sips of water? 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 - junction maker: PONV - junction maker Female HX of Motion Sickness HX of N/V After Surgery Non-Smoker Duration of Surgery greater than 60 minutes Number of Risk Factors PONV Score Height & Weight Height & Weight: Anesthesia: Height & Weight Height 5 ft 7 in 11/16/24 13:58 Weight: 93.168 kg 11/16/24 13:58 Body Mass Index (BMI) 32.1 11/16/24 13:58 Respiratory Assessment Respiratory Assessment - junction maker: Respiratory Tract Infection Hx - junction maker Hx Respiratory Tract Infection No 11/16/24 12:44 STOP Sleep Apnea STOP Sleep Apnea - junction maker: STOP Sleep Apnea - junction maker Hx Hypertension No 11/14/24 17:36 Hx Sleep Apnea No 11/14/24 17:36 CPAP BIPAP Do you snore loudly (louder No 11/14/24 17:36 than talking or can be heard Do you often feel tired/ No 11/14/24 17:36 fatigued/ sleepy during daytime? Has anyone observed you stop No 11/14/24 17:36 breathing during sleep? STOP Results Negative 11/14/24 17:36 QUESTION #5 FULL TEXT : Do you snore loudly (louder than talking or can be heard through closed doors)? 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 Specify any problems Hx of Preganancy in last 3 Yes 11/14/24 17:36 Months Nurse Filling Out Transfusion [email or web address] 11/14/24 17:36 & Questions: Date: 11/14/24 11/14/24 17:36 Time: 18:40 11/14/24 17:36 Patient unable to answer at this time (ie. confused, unrespo /Reproduction History /Reproductive History - junction maker: /Reproductive Hx- junction maker Hx Now No 11/16/24 12:44 Gestational Age (in weeks): EDC: Hx Hx Para Hx Section SAB Yes 11/16/24 12:44 Active Medications Active Medications: Current Medications Generic Name Dose Route Start Last Admin Trade Name Manavq PRN Reason Stop Dose Admin Docusate Sodium 100 mg 11/14/24 22:00 11/16/24 08:26 Docusate Sodium 100 Mg Capsule PO 100 mg BID GEOVANNA Administration Enoxaparin Sodium 40 mg 11/15/24 10:00 11/16/24 09:48 Enoxaparin 40 Mg/0.4 Ml Syringe SC Not Given DAILY GEOVANNA Piperacillin Sod/Tazobactam 50 mls @ 12.5 mls/hr 11/14/24 22:00 11/16/24 09:30 Sod 3.375 gm/ Sodium Chloride IV Infused Q8 GEOVANNA Infusion Sodium Chloride 1,000 mls @ 15 mls/hr 11/16/24 14:05 IV .Q48H GEOVANNA Morphine Sulfate 2 - 4 mg 11/14/24 17:43 11/16/24 01:56 Morphine 2 Mg/Ml Syringe IV 2 mg Q3H PRN PRN Administration Pain Score 6-10 Ondansetron HCl 4 mg 11/14/24 17:43 Ondansetron 4 Mg/2 Ml Vial IV Q8H PRN PRN NAUSEA/VOMITING Polyethylene Glycol 17 gm 11/16/24 10:00 11/16/24 08:26 Polyethylene Glycol 3350 17 Gm Packet PO 17 gm DAILY GEOVANNA Administration Prochlorperazine Edisylate 5 mg 11/14/24 17:43 Prochlorperazine 10 Mg/2 Ml Vial IV Q4H PRN PRN Breakthrough nausea/vomiting Senna/Docusate Sodium 2 tablet 11/14/24 17:43 Senna/Docusate Sodium 1 Tablet PO BID PRN PRN Constipation Sodium Chloride 10 - 40 ml 11/14/24 17:40 11/16/24 01:56 0.9% Saline Lock 10 Ml Syringe IV 10 ml UD PRN Administration SALINE FLUSH PFSH Medical History Wears glasses Non-smoker Bile leak Biliary colic Home Medications ?Medication ?Instructions ?Recorded ?Last Taken ?Type NK 11/12/24 Unknown History Allergy/AdvReac Type Severity Reaction Status Date / Time No Known Allergies Allergy Verified 11/13/24 06:45 Family History Mother No problems noted. Father No problems noted. Surgical History History of ERCP Hx of cholecystectomy Hx of appendectomy Social History household members: spouse, children and other details: 2 older children at home, 1 miscarriage, 1 09/24/24. Smoking Status: Never smoker alcohol intake: never substance use type: does not use Review of Systems (Anesthesia) ROS Narrative System reviewed and no additional complaints, except as documented.
--- NOTE | 2024-11-16 15:53 | PN_ITS ---
Subjective Subjective Patient seen and examined. She still complain of some abdominal pain. I saw the patient with her nurse. She had no other active complaints. She denied any nausea or vomiting, fever or chills. Review of systems otherwise negative. She is due for ERCP tomorrow by GI. She has remained hemodynamically stable. Objective Data Objective Data Vital Signs: Vital Signs Temp Pulse Resp BP Pulse Ox O2 Del Method 98.1 F 74 16 112/68 97 Room Air 11/16/24 14:59 11/16/24 14:59 11/16/24 14:59 11/16/24 14:59 11/16/24 14:59 11/16/24 12:47 Oxygen Delivery Method Room Air Weight: 205 lb 6.4 oz Body Mass Index (BMI) 32.1 Intake & Output: Intake and Output for Last 24 Hours 11/14/24 11/15/24 11/16/24 23:59 23:59 23:59 Intake Total 579 / 579 2500 / 2500 1850 / 1850 Output Total 40 / 40 90 / 90 285 / 285 Balance 539 / 539 2410 / 2410 1565 / 1565 Lab / Micro Data 11/16/24 06:03 11/16/24 06:03 Labs: Laboratory Results - last 24 hr 11/16/24 06:03: WBC 6.1, RBC 3.49 L, Hgb 10.5 L, Hct 30.7 L, MCV 88.0, MCH 30.1, MCHC 34.2, RDW Std Deviation 40.5, RDW Coeff of Rebeca 12.7, Plt Count 152, MPV 10.5, Immature Gran % (Auto) 0.500, Neut % (Auto) 57.6, Lymph % (Auto) 29.4, Ocean % (Auto) 7.3, Eos % (Auto) 4.9, Baso % (Auto) 0.3, Absolute Neuts (auto) 3.5, Absolute Lymphs (auto) 1.80, Nucleated RBC % 0, Sodium 141, Potassium 3.4, Chloride 106, Carbon Dioxide 24.4, Anion Gap 10, BUN 6, Creatinine 0.75, Estim Creat Clear Calc 134.36, Est GFR (MDRD) Non-Af 113, BUN/Creatinine Ratio 8.5 L, Glucose 101 H, Calcium 8.5, Total Bilirubin 0.85, Direct Bilirubin 0.45 H, AST 35 H, ALT 99 H, Alkaline Phosphatase 133 H, Total Protein 6.0, Albumin 3.3 L, Globulin 2.7 11/16/24 12:00: Urine Test Negative Micro: Microbiology 11/14/24 18:30 John Amador Drainage Body Fluid Culture - Preliminary GNR lactose esthetician spa Gram negative kellee Physical Exam Const alert, oriented x3 and no apparent distress Constitutional Narrative: Class I obesity General Appearance: cooperative and well developed HEENT normocephalic, head/scalp atraumatic and moist oral mucous membranes Eyes PERRL and EOMs intact bilaterally Neck supple and no JVD Lymph Lymphatic: no lymphedema noted Resp normal respiratory effort and normal air movement Cardio regular rate, regular rhythm, S1 normal heart sound, S2 normal heart sound and no murmurs GI normal to inspection, nondistended, normoactive bowel sounds and soft to palpation GI Narrative: Mild right upper quadrant tenderness, no guarding or rebound tenderness. Extremity normal capillary refill, no clubbing, cyanosis or edema and no calf tenderness General Extremity: no tenderness to palpation of joints or extremities Skin General Skin Exam: no breakdown Neuro no focal motor deficits, no sensory deficits noted and deep tendon reflexes 2+ bilaterally Motor Exam: general weakness Psych thought process normal, cooperative and affect normal Appearance: appropriate Assessment & Plan Assessment/Plan (1) History of biliary stent insertion: (2) Bile leak: PLAN: Plan #Abdominal pain with leukocytosis and elevated liver enzymes in the setting of subtotal cholecystectomy with bile leak * She had a covered stent placed in the common bile duct on 11/13/2024. General surgery consulted due to concerns about bile leak. She still does have a AYSE drain in situ. * Leukocytosis has resolved. On IV Zosyn. * Liver enzymes are improving. * Currently tolerating a transitional diet. * Per GI for repeat ERCP tomorrow. * #Dilated bowel * There was concern for possible dilated bowel * General surgery was consulted. Patient does have a history of earlier sick ectomy. Patient started on transitional diet and tolerating it. Management as per general surgery. #: Patient currently and is pumping for breast-feeding. DVT Prophylaxis: Lovenox Charges/Coding Visit Charges Inpatient E&M: 77209 Subs Hosp L2
--- NOTE | 2024-11-16 16:06 | PN_ITS ---
Progress Note Patient for ERCP today. All questions and concerns were answered prior to her procedure. Physical Exam Const alert, oriented x3, no apparent distress and healthy appearing General Appearance: cooperative GI normal to inspection, nondistended, normoactive bowel sounds, soft to palpation, non-tender and non-distended Percussion: normal to percussion Rectal Exam: deferred Assessment & Plan Assessment/Plan (1) Transaminitis: (2) Nausea & vomiting: (3) Abdominal pain: (4) Bile leak: (5) Hx of cholecystectomy: (6) Abnormal CT of the abdomen: PLAN: 24-year-old who is 10 weeks who presented with abdominal pain and was diagnosed with acute choledocholithiasis and acute cholecystitis approximately 8 weeks ago. She underwent ERCP with stone removal and temporary stent placement. She came back and had worsening abdominal pain to [facility] while awaiting evaluation at [facility] for elective cholecystectomy with acute cholecystitis. She underwent a subtotal cholecystectomy. She had persistent bile leak so her plastic stent was exchanged for metal stent. She comes back in today with abdominal distention and abdominal pain. CT scan abdomen pelvis shows metal stent in place without any other abnormalities except for dilated small bowel to 5.4 cm possibly secondary to ileus versus small bowel obstruction. Recommend surgical consultation. Patient would likely need a contrast study such as small bowel follow-through or CT with oral contrast. She will also likely need stent exchange with longer bilateral intrahepatic stents or removal of fully covered metal stent with surgery to repair bile leak. 11/16/2024-risks and benefits of the procedure were explained to the patient. She was explained alternatives, risk and benefits include not withstanding bleeding, infection, subsequent perforation, need for return to . She will have an ASA of 3. Visit Charges Inpatient E&M: 05020 Subs Hosp L3
--- NOTE | 2024-11-16 16:15 | CASEMGMT ---
Addendum entered by Heather Pozo 11/17/24 12:30: Strata: 1 Addendum entered by Heather Pozo 11/17/24 12:30: To room to discuss readmission and discharge. Pt sitting on edge of bed, @ bedside. They state pt did get her new Rx/Percocet from [facility] [place] They would like to get any new meds @ dc this admission from [facility] again. Pt was to f/u @ Dr Collins's office @ [facility] after last admission to schedule for AYSE drain removal, which she did do. states she has been in to see Dr Collins at least 3 times since last admission. Pt and deny having any discharge needs or concerns. They will have someone that can take pt home @ [facility]. Original Note: EDER BATISTA readmission note: Index admission: 10/20-10/23: Acute cholecystitis. See EDER Logan CM, readmission note 10/21 and EDER Garrido CM, assessment note 09/26. Pt lives w/ and baby. 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 Pt dc'd home w/drain and instructions to call Dr Collins's office 10/26 to have drain removed. She also had Rx sent to [facility] pharmacy for percocet @ [place] Current admission: Admitted 11/14 w/abdominal pain, N/V. Pt was a direct-admit from [facility]. Per Dr Chacon H/P 11/14: Patient underwent a subtotal cholecystectomy on 10/21/2024 and then was seen in the outpatient setting by gastroenterology on 11/13/2024 at which time an ERCP was performed and a bile leak was found along with choledocholithiasis with a moderately dilated biliary system. A sphincterotomy was performed and complete removal of the stone was performed via sphincterotomy and balloon extraction. One stent was removed from the biliary tree and a covered metal stent was placed in the common bile duct. Patient reported she did well postprocedure but then developed abdominal pain with 3 bouts of nausea vomiting last evening. EDER BATISTA to room to discuss readmission and discharge planning. Pt is out of room at this time. Tico STINSON RN, CM
--- NOTE | 2024-11-16 17:27 | PCM.POST.ANE ---
Anesthesia: Postop Eval I Current Vital Signs Temperature: 98.4 F Pulse Rate: 80 Blood Pressure: 135/83 Respiratory Rate: 18 Pulse Ox: 97 Oxygen Delivery Method: Room Air Assessment Airway patent: Yes Spontaneous unlabored respirations: Yes Mental status: Awake and Calm nausea: No Vomiting: No Anesthesia Complication: No Fluid Hydration Crystalloid volume administer (ml): 500 Total IV fluid infused: 500 Progress Note Anesthesia document: Postop Eval 1 completed: Yes
--- NOTE | 2024-11-16 17:55 | OP.CCLET_ITS ---
11/16/2024 Heather Ruby Do Re : ERCP procedure for Lucy Benavides Dear Dr. Ruby This procedure was performed on Saturday, November 16, 2024. My impressions and recommendations are as follows: Impressions : - The entire main bile duct was dilated. 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 Complete removal was accomplished by biliary sphincterotomy and balloon extraction. - One stent was removed from the biliary tree. - A biliary sphincterotomy was performed. - The biliary tree was swept. - One temporary stent was placed into the right hepatic duct. - One temporary stent was placed into the left hepatic duct. Recommendations : regular diet My findings are described in the full procedure note, which is enclosed. If I can be of further assistance, please feel free to contact me at . Sincerely, Ld Chacon DO 11/16/2024 5:55:08 PM This report has been signed electronically.
--- NOTE | 2024-11-16 17:55 | OP.ERCP_ITS ---
Patient Name: Lucy Benavides Procedure Date: 11/16/2024 4:02 PM Date of : 2000 Age: 24 Procedure: ERCP Indications: Bile leak Providers: Ld Chacon DO Medicines: Monitored Anesthesia Care Patient Profile: This is a 24 year old female. Refer to note in patient chart for documentation of history and physical. Patient has symptoms of acute right upper quadrant abdominal pain. Complications: No immediate complications. Procedure: Pre-Anesthesia Assessment: - Prior to the procedure, a History and Physical was performed, and patient medications and allergies were reviewed. The patient is competent. The risks and benefits of the procedure and the sedation options and risks were discussed with the patient. All questions were answered and informed consent was obtained. Patient identification and proposed procedure were verified by the physician in the pre-procedure area. Mental Status Examination: normal. Respiratory Examination: clear to auscultation. CV Examination: normal. Prophylactic Antibiotics: The patient does not require prophylactic antibiotics. Prior Anticoagulants: The patient has taken no anticoagulant or antiplatelet agents except for NSAID medication. ASA Grade Assessment: II - A patient with mild systemic disease. After reviewing the risks and benefits, the patient was deemed in satisfactory condition to undergo the procedure. The anesthesia plan was to use monitored anesthesia care (MAC). Immediately prior to administration of medications, the patient was re-assessed for adequacy to receive sedatives. The heart rate, respiratory rate, oxygen saturations, blood pressure, adequacy of pulmonary ventilation, and response to care were monitored throughout the procedure. The physical status of the patient was re-assessed after the procedure. After obtaining informed consent, the scope was passed under direct vision. Throughout the procedure, the patient's blood pressure, pulse, and oxygen saturations were monitored continuously. The Duodenoscope was introduced through the mouth, and advanced to the duodenum and used to inject contrast into the bile duct. The ERCP was accomplished without difficulty. The patient tolerated the procedure well. Scope In: 4:33:57 PM Scope Out: 5:14:34 PM Total Procedure Duration Time 0 hours 40 minutes 37 seconds Findings: The trucking supervisor film was normal. A pancreatic stent was visible on the trucking supervisor film. A biliary stent was visible on the trucking supervisor film. The esophagus was successfully intubated under direct vision. The scope was advanced to a normal major papilla in the descending duodenum without detailed examination of the pharynx, larynx and associated structures, and upper GI tract. The upper GI tract was grossly normal. One stent was removed from the biliary tree using a large-capacity forceps. The stent was found to be patent via the water column test. The bile duct was deeply cannulated with the short-nosed traction sphincterotome. Contrast was injected. I personally interpreted the bile duct images. There was brisk flow of contrast through the ducts. Image quality was adequate. Contrast extended to the entire biliary tree. Opacification of the entire opacified area was successful. The maximum diameter of the ducts was 12 mm. Placement of a long 0.025 inch Jagwire into the biliary tree was attempted. This passed successfully. A 5 mm biliary sphincterotomy was made with a traction (standard) sphincterotome using ERBE electrocautery. There was no post-sphincterotomy bleeding. The biliary tree was swept with a 7 mm balloon starting at the cystic duct. All cystic duct stones were removed. Placement of a short 0.025 inch Jagwire into the biliary tree was attempted. This passed successfully. The bile duct was explored endoscopically using the SpEQUISO direct visualization system. The SpyScope was advanced to the cystic duct. Visibility with the scope was excellent. The cystic duct contained two stones, the largest of which was 3 mm in diameter. The main bile duct was diffusely dilated. One 7 Fr by 12 cm transpapillary temporary stent was placed 5 cm into the right hepatic duct. Bile flowed through the stent. The stent was in good position. One 7 Fr by 15 cm transpapillary temporary stent was placed 5 cm into the left hepatic duct. The stent was in good position. Impression: - The entire main bile duct was dilated. 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 Complete removal was accomplished by biliary sphincterotomy and balloon extraction. - One stent was removed from the biliary tree. - A biliary sphincterotomy was performed. - The biliary tree was swept. - One temporary stent was placed into the right hepatic duct. - One temporary stent was placed into the left hepatic duct. Recommendation: regular diet Procedure Code(s): --- Professional --- 00710, Endoscopic retrograde cholangiopancreatography (ERCP); with removal and exchange of stent(s), biliary or pancreatic duct, including pre- and post-dilation and guide wire passage, when performed, including sphincterotomy, when performed, each stent exchanged 04151, 59, Endoscopic retrograde cholangiopancreatography (ERCP); with removal and exchange of stent(s), biliary or pancreatic duct, including pre- and post-dilation and guide wire passage, when performed, including sphincterotomy, when performed, each stent exchanged 19687, 51, Endoscopic retrograde cholangiopancreatography (ERCP); with removal of calculi/debris from biliary/pancreatic duct(s) 39929, 59, Endoscopic retrograde cholangiopancreatography (ERCP); with sphincterotomy/papillotomy 07424, Endoscopic cannulation of papilla with direct visualization of pancreatic/common bile duct(s) (List separately in addition to code(s) for primary procedure) 87529, 26, Endoscopic catheterization of the biliary ductal system, radiological supervision and interpretation CPT copyright 2021 [employer]. All rights reserved. The codes documented in this report are preliminary and upon executive director global brand marketing review may be revised to meet current compliance requirements. Ld Chacon DO 11/16/2024 5:55:08 PM This report has been signed electronically. Number of Addenda: 0 Note Initiated On: 11/16/2024 4:02 PM
--- NOTE | 2024-11-16 18:08 | POSTOPAN2_ITS ---
Anesthesia Postop Eval I Sum Postop Eval Completion status Anesthesia document: Postop Eval 1 completed: Yes Anesthesia Postop Eval I Summary Anesthesia Postop Eval I Summary: Anesthesia Postop Eval I: Assessment Summary Airway patent Yes 11/16/24 17:27 AMUSEMENT [email or web address] Spontaneous unlabored Yes 11/16/24 17:27 AMUSEMENT RIDE [email or web address] respirations Mental status Awake,Calm 11/16/24 17:27 AMUSEMENT [email or web address] nausea No 11/16/24 17:27 AMUSEMENT RIDE [email or web address] Vomiting No 11/16/24 17:27 AMUSEMENT [email or web address] Anesthesia Postop Eval I: Fluid Summary Crystalloid volume administer 500 11/16/24 17:27 AMUSEMENT RIDE [email or web address] (ml) Colloids volume administered ( ml) Blood Product volume administered (ml) Total IV fluid infused 500 11/16/24 17:27 AMUSEMENT RIDE [email or web address] Anesthesia Postop Eval I: Summary Notes Anesthesia Complication No 11/16/24 17:27 AMUSEMENT [email or web address] Anesthesia Complication Comment: Post-operative progress note Anesthesia: Postop Eval II Evaluation Mental status: Awake Pain Level: 0 nausea: No Vomiting: No
--- NOTE | 2024-11-16 18:08 | PCM.POSTANE2 ---
Anesthesia Postop Eval I Sum Postop Eval Completion status Anesthesia document: Postop Eval 1 completed: Yes Anesthesia Postop Eval I Summary Anesthesia Postop Eval I Summary: Anesthesia Postop Eval I: Assessment Summary Airway patent Yes 11/16/24 17:27 [email or web address] Spontaneous unlabored Yes 11/16/24 17:27 [email or web address] respirations Mental status Awake,Calm 11/16/24 17:27 [email or web address] nausea No 11/16/24 17:27 DESIGN [email or web address] Vomiting No 11/16/24 17:27 [email or web address] Anesthesia Postop Eval I: Fluid Summary Crystalloid volume administer 500 11/16/24 17:27 [email or web address] (ml) Colloids volume administered ( ml) Blood Product volume administered (ml) Total IV fluid infused 500 11/16/24 17:27 [email or web address] Anesthesia Postop Eval I: Summary Notes Anesthesia Complication No 11/16/24 17:27 [email or web address] Anesthesia Complication Comment: Post-operative progress note Anesthesia: Postop Eval II Evaluation Mental status: Awake Pain Level: 0 nausea: No Vomiting: No
--- NOTE | 2024-11-16 19:02 | CT_ITS ---
PROCEDURE: ABDOMEN/PELVIS W IV CONT ONLY 11/16/2024 REASON FOR EXAM: ABDOMINAL PAIN TECHNIQUE: Abdomen and pelvis CT with intravenous contrast. Coronal and Sagittal reconstruction series were provided. PATIENT PREPARATION: Per protocol ORAL CONTRAST TYPE: None. CONTRAST: Isovue 370 VOLUME: 100 mL One or more dose reduction techniques were used (e.g., Automated exposure control, adjustment of the mA and/or kV according to patient size, use of iterative reconstruction technique. RADIATION DOSE SUMMARY: CTDlvol: 32 mGy DLP: 1000 mGycm COMPARISON: ERCP earlier same day, CT abdomen pelvis 11/14/2024. FINDINGS: Interval biliary stent exchange. Persistent dilated small bowel loops within the right lower abdomen measuring up to 4.0 cm. Small volume free fluid within the pelvic cul-de-sac. CT/Abdomen/Pelvis W IV Cont ONLY IMPRESSION: Interval biliary stent exchange. Persistent dilation of the right lower quadra nt bowel loops, which may represent ileus or focal obstruction. If clinical concern, consider CT abdomen pelvis with oral contras t. Reading Location: [id number]
[2024-11-16] MEDS: Lactated Ringers 1,000 ML 250 ML IV ×2 (19:09→23:52)
[2024-11-16] MEDS: Ketorolac 30 MG/ML Syringe IV (19:09)
[2024-11-16 19:54] LABS: ALB/GLOB Ratio 1.2 RATIO (0.9-2.4); AST(SGOT) 45 U/L (<=31); Alanine Aminotransfer ALT/SGPT 101 U/L (<=34); Albumin, Serum 3.7 g/dL (3.5-5.0); Alkaline Phosphatase 166 U/L (35-104); Anion Gap 12 (5-15); BUN 5 mg/dL (4-19); BUN/Creat Ratio 7.2 RATIO (10-20); Carbon Dioxide 24.3 mmol/L (21.0-32.0); Chloride 105 mmol/L (98-108); Creatinine, Serum 0.68 mg/dL (0.70-1.20); EST Glomerular Filtration Rate 124 (>60); Globulin 3.1 g/dL (2.2-4.2); Glucose 94 mg/dL (70-99); Potassium 3.8 mmol/L (3.3-5.1); Protein, Total 6.8 g/dL (5.9-8.4); Sodium Level 142 mmol/L (133-145); Total Bilirubin 0.64 mg/dL (0.00-1.30)
[2024-11-16 20:08] LABS: Absolute Neutrophil Count 4.8 X10^3/uL (2.0-7.7); Basophil# 0.02 X10^3/uL; Basophil% 0.3 % (0-1); Eosinophil# 0.19 X10^3/uL; Eosinophils% 2.8 % (0-5); Hematocrit 37.2 % (37-47); Hemoglobin 12.5 g/dL (12.0-15.0); Lymphocyte % 21.9 % (19-41); Mean Corp Hgb Conc 33.6 g/dL (32-36); Mean Corpuscular Hgb 29.7 pg (27.0-32.0); Mean Corpuscular Volume 88.4 fL (81-99); Mean Platelet Vol. 10.4 fl (6.2-12.0); Monocyte% 4.4 % (0-10); NRBC Flagged by Analyzer 0 % (0-5); Neutrophil # 4.81 X10^3/uL (2.7-7.7); Platelet Count 220 K/mm3 (150-450); RBC Distribution Width CV 12.7 % (11.6-14.6); RBC Distribution Width SD 40.8 fl (35.1-43.9); Red Blood Count 4.21 M/mm3 (4.2-5.4); White Blood Count 6.9 K/mm3 (4.4-11.0)
[2024-11-16 20:11] LABS: Erythrocyte Sedimentation Rate 10 mm/hr (0-30)
[2024-11-17] MEDS: Ibuprofen 400 MG Tablet PO ×2 (01:32→08:23)
[2024-11-17] MEDS: Lactated Ringers 1,000 ML 250 ML IV ×3 (03:52→12:48)
[2024-11-17 05:59] VITALS: BP 114/81; PULSE 62; RESP 16; TEMP 36.5; O2SAT 97
[2024-11-17] MEDS: Piperacil/Tazobactam 3.375 GM in 0.9% Normal Saline (50mL MB+) 50 ML IV ×3 (06:05→22:23)
[2024-11-17 08:10] VITALS: BP 113/71; PULSE 72; RESP 16; TEMP 36.7; O2SAT 96
[2024-11-17] MEDS: Docusate Sodium 100 MG Capsule PO (08:22)
[2024-11-17] MEDS: Polyethylene Glycol 3350 17 GM PACKET PO (08:22)
[2024-11-17 09:17] LABS: Absolute Lymphocyte Count 1.93 X10^3/uL (0.83-4.51); Absolute Neutrophil Count 2.6 X10^3/uL (2.0-7.7); Basophil# 0.02 X10^3/uL; Basophil% 0.4 % (0-1); Eosinophil# 0.32 X10^3/uL; Eosinophils% 6.1 % (0-5); Hematocrit 31.3 % (37-47); Hemoglobin 10.7 g/dL (12.0-15.0); Lymphocyte # 1.93 X10^3/ul (0.83-4.51); Lymphocyte % 36.9 % (19-41); Mean Corp Hgb Conc 34.2 g/dL (32-36); Mean Corpuscular Hgb 30.2 pg (27.0-32.0); Mean Corpuscular Volume 88.4 fL (81-99); Mean Platelet Vol. 10.2 fl (6.2-12.0); Monocyte# 0.29 X10^3/uL; Monocyte% 5.5 % (0-10); NRBC Flagged by Analyzer 0 % (0-5); Neutrophil # 2.64 X10^3/uL (2.7-7.7); Neutrophil % 50.5 % (47-70); Platelet Count 173 K/mm3 (150-450); RBC Distribution Width CV 12.5 % (11.6-14.6); RBC Distribution Width SD 40.8 fl (35.1-43.9); Red Blood Count 3.54 M/mm3 (4.2-5.4); White Blood Count 5.2 K/mm3 (4.4-11.0)
--- NOTE | 2024-11-17 09:41 | PCM.PN.SRG ---
Subjective Subjective Patient evaluated sitting comfortably in her bed. She denies any nausea, vomiting. She notes some abdominal cramping otherwise no true pain. She is tolerating a diet well. She notes passing flatus yesterday. She has not had a bowel movement since Saturday. Objective Data Objective Data Vital Signs: Vital Signs Temp Pulse Resp BP Pulse Ox O2 Del Method 98.1 F 72 16 113/71 96 Room Air 11/17/24 08:10 11/17/24 08:10 11/17/24 08:10 11/17/24 08:10 11/17/24 08:10 11/17/24 08:10 Oxygen Delivery Method Room Air Weight: 205 lb 6.4 oz Body Mass Index (BMI) 32.1 Intake & Output: Intake and Output for Last 24 Hours 11/15/24 11/16/24 11/17/24 23:59 23:59 23:59 Intake Total 2500 / 2500 3150 / 3150 2049 / 2049 Output Total 90 / 90 300 / 300 Balance 2410 / 2410 2850 / 2850 2039 / 2039 Lab / Micro Data 11/17/24 08:55 11/16/24 19:19 Labs: Laboratory Results - last 24 hr 11/16/24 06:03: Total Bilirubin 0.85, Direct Bilirubin 0.45 H, AST 35 H, ALT 99 H, Alkaline Phosphatase 133 H, Total Protein 6.0, Albumin 3.3 L, Globulin 2.7 11/16/24 12:00: Urine Test Negative 11/16/24 19:19: WBC 6.9, RBC 4.21, Hgb 12.5, Hct 37.2, MCV 88.4, MCH 29.7, MCHC 33.6, RDW Std Deviation 40.8, RDW Coeff of Rebeca 12.7, Plt Count 220, MPV 10.4, Immature Gran % (Auto) 0.600, Neut % (Auto) 70.0, Lymph % (Auto) 21.9, [place] % (Auto) 4.4, Eos % (Auto) 2.8, Baso % (Auto) 0.3, Absolute Neuts (auto) 4.8, Absolute Lymphs (auto) 1.50, Nucleated RBC % 0, ESR 10, Sodium 142, Potassium 3.8, Chloride 105, Carbon Dioxide 24.3, Anion Gap 12, BUN 5, Creatinine 0.68 L, Estim Creat Clear Calc 148.20, Est GFR (MDRD) Non-Af 124, BUN/Creatinine Ratio 7.2 L, Glucose 94, Calcium 9.0, Total Bilirubin 0.64, AST 45 H, ALT 101 H, Alkaline Phosphatase 166 H, C-React Prot Ext Range 68.90 H, Total Protein 6.8, Albumin 3.7, Globulin 3.1, Albumin/Globulin Ratio 1.2 11/17/24 08:55: WBC 5.2, RBC 3.54 L, Hgb 10.7 L, Hct 31.3 L, MCV 88.4, MCH 30.2, MCHC 34.2, RDW Std Deviation 40.8, RDW Coeff of Rebeca 12.5, Plt Count 173, MPV 10.2, Immature Gran % (Auto) 0.600, Neut % (Auto) 50.5, Lymph % (Auto) 36.9, [place] % (Auto) 5.5, Eos % (Auto) 6.1 H, Baso % (Auto) 0.4, Absolute Neuts (auto) 2.6, Absolute Lymphs (auto) 1.93, Nucleated RBC % 0 Micro: Microbiology 11/14/24 18:30 John Amador Drainage Body Fluid Culture - Preliminary GNR lactose type soldering machine tender Gram negative kellee GNR lactose type soldering machine tender#2 Alpha hemolytic organism Radiography Diagnostic Testing: Radiology Impression Endo Retro Cholangiopancreatogram 11/16/24 09:52 IMPRESSION: Insertion of 2 biliary stents and the pancreatic stent in good position. Reading [facility]/Pelvis CT 11/16/24 19:02 IMPRESSION: Interval biliary stent exchange. Persistent dilation of the right lower quadrant bowel loops, which may represent ileus or focal obstruction. If clinical concern, consider CT abdomen pelvis with oral contrast. Reading Location: [id number] Physical Exam GI GI Narrative: Abdomen- AYSE drain intact. Slight right upper quadrant discomfort. Nondistended Assessment & Plan Assessment/Plan (1) Ileus due to infection: PLAN: I am following this patient in conjunction with Dr. Collins. He will independently evaluate this patient. Labs reviewed No surgical intervention is needed Will give lactulose x 1 to assist with bowel habits May continue Senna and Miralax We will continue to monitor this patient (2) Bile leak: PLAN: S/p ERCP yesterday cystic duct stones were found. One stent was removed. One stent was placed in each of the right and left hepatic duct by Dr. Chacon Liver enzymes continue to trend down Charges/Coding Visit Charges Inpatient E&M: 47043 Subs Hosp L2
[2024-11-17 09:55] LABS: ALB/GLOB Ratio 1.2 RATIO (0.9-2.4); AST(SGOT) 26 U/L (<=31); Alanine Aminotransfer ALT/SGPT 75 U/L (<=34); Albumin, Serum 3.4 g/dL (3.5-5.0); Alkaline Phosphatase 135 U/L (35-104); Anion Gap 11 (5-15); BUN 3 mg/dL (4-19); Calcium,Total 9.1 mg/dL (7.6-11.0); Carbon Dioxide 23.5 mmol/L (21.0-32.0); Chloride 105 mmol/L (98-108); Creatinine, Serum 0.57 mg/dL (0.70-1.20); EST Glomerular Filtration Rate 129 (>60); Globulin 2.8 g/dL (2.2-4.2); Glucose 103 mg/dL (70-99); Potassium 3.7 mmol/L (3.3-5.1); Protein, Total 6.2 g/dL (5.9-8.4); Sodium Level 139 mmol/L (133-145)
[2024-11-17] MEDS: Lactulose 20 GM/30 ML UDC 10 GM PO (10:23)
[2024-11-17] MEDS: 0.9% Saline Lock 10 ML Syringe IV (12:49)
[2024-11-17 15:03] VITALS: BP 117/71; PULSE 67; RESP 16; TEMP 36.9; O2SAT 96
--- NOTE | 2024-11-17 15:32 | PN_ITS ---
Subjective Subjective Patient seen and examined. I saw the patient with her nurse at her bedside. Her was in the room. She complained of feeling minimal abdominal pain. She had ERCP yesterday. She denies any nausea vomiting or any other symptoms. Review of systems otherwise negative. She has remained hemodynamically stable. Objective Data Objective Data Vital Signs: Vital Signs Temp Pulse Resp BP Pulse Ox O2 Del Method 98.5 F 67 16 117/71 96 Room Air 11/17/24 15:03 11/17/24 15:03 11/17/24 15:03 11/17/24 15:03 11/17/24 15:03 11/17/24 15:20 Oxygen Delivery Method Room Air Weight: 205 lb 6.4 oz Body Mass Index (BMI) 32.1 Intake & Output: Intake and Output for Last 24 Hours 11/15/24 11/16/24 11/17/24 23:59 23:59 23:59 Intake Total 2500 / 2500 3150 / 3150 3550 / 3550 Output Total 90 / 90 300 / 300 Balance 2410 / 2410 2850 / 2850 3540 / 3540 Lab / Micro Data 11/17/24 08:55 11/17/24 08:55 Labs: Laboratory Results - last 24 hr 11/16/24 19:19: WBC 6.9, RBC 4.21, Hgb 12.5, Hct 37.2, MCV 88.4, MCH 29.7, MCHC 33.6, RDW Std Deviation 40.8, RDW Coeff of Rebeca 12.7, Plt Count 220, MPV 10.4, Immature Gran % (Auto) 0.600, Neut % (Auto) 70.0, Lymph % (Auto) 21.9, [place] % (Auto) 4.4, Eos % (Auto) 2.8, Baso % (Auto) 0.3, Absolute Neuts (auto) 4.8, Absolute Lymphs (auto) 1.50, Nucleated RBC % 0, ESR 10, Sodium 142, Potassium 3.8, Chloride 105, Carbon Dioxide 24.3, Anion Gap 12, BUN 5, Creatinine 0.68 L, Estim Creat Clear Calc 148.20, Est GFR (MDRD) Non-Af 124, BUN/Creatinine Ratio 7.2 L, Glucose 94, Calcium 9.0, Total Bilirubin 0.64, AST 45 H, ALT 101 H, A lkaline Phosphatase 166 H, C-React Prot Ext Range 68.90 H, Total Protein 6.8, Albumin 3.7, Globulin 3.1, Albumin/Globulin Ratio 1.2 11/17/24 08:55: WBC 5.2, RBC 3.54 L, Hgb 10.7 L, Hct 31.3 L, MCV 88.4, MCH 30.2, MCHC 34.2, RDW Std Deviation 40.8, RDW Coeff of Rebeca 12.5, Plt Count 173, MPV 10.2, Immature Gran % (Auto) 0.600, Neut % (Auto) 50.5, Lymph % (Auto) 36.9, [place] % (Auto) 5.5, Eos % (Auto) 6.1 H, Baso % (Auto) 0.4, Absolute Neuts (auto) 2.6, Absolute Lymphs (auto) 1.93, Nucleated RBC % 0, Sodium 139, Potassium 3.7, Chloride 105, Carbon Dioxide 23.5, Anion Gap 11, BUN 3 L, Creatinine 0.57 L, Estim Creat Clear Calc 176.80, Est GFR (MDRD) Non-Af 129, BUN/Creatinine Ratio 6.0 L, Glucose 103 H, Calcium 9.1, Total Bilirubin 0.60, AST 26, ALT 75 H, A lkaline Phosphatase 135 H, Total Protein 6.2, Albumin 3.4 L, Globulin 2.8, Albumin/Globulin Ratio 1.2 Micro: Microbiology 11/14/24 18:10 Blood Culture (Wb) #2 - Left Hand Blood Culture - Preliminary No growth in 48 hours. 11/14/24 18:00 Blood Culture (Wb) - Anticubital Left Blood Culture - Preliminary No growth in 48 hours. 11/14/24 18:30 John Amador Drainage Body Fluid Culture - Preliminary GNR lactose geological scout Gram negative kellee GNR lactose geological scout#2 Alpha hemolytic organism Radiography Diagnostic Testing: Radiology Impression Endo Retro Cholangiopancreatogram 11/16/24 09:52 IMPRESSION: Insertion of 2 biliary stents and the pancreatic stent in good position. Reading [facility]/Pelvis CT 11/16/24 19:02 IMPRESSION: Interval biliary stent exchange. Persistent dilation of the right lower quadrant bowel loops, which may represent ileus or focal obstruction. If clinical concern, consider CT abdomen pelvis with oral contrast. Reading Location: [facility] Physical Exam Const alert, oriented x3, no apparent distress and well nourished Constitutional Narrative: Class I obesity General Appearance: cooperative and well developed HEENT normocephalic, head/scalp atraumatic, hearing grossly normal bilaterally and moist oral mucous membranes Eyes PERRL and EOMs intact bilaterally Neck supple and no JVD Lymph Lymphatic: no lymphedema noted Resp normal respiratory effort, normal air movement, no retractions, no use of accessory muscles and clear to auscultation bilaterally Cardio regular rate, regular rhythm, S1 normal heart sound and S2 normal heart sound GI normal to inspection, nondistended, normoactive bowel sounds and soft to palpation GI Narrative: Mild right upper quadrant tenderness, no guarding or rebound tenderness. AYSE drain in situ Extremity normal capillary refill, no clubbing, cyanosis or edema and no calf tenderness Extremity Narrative: Pedal and radial pulses are 2+ General Extremity: no tenderness to palpation of joints or extremities Skin General Skin Exam: no breakdown Neuro oriented x3, moves all extremities, no focal motor deficits, no sensory deficits noted and deep tendon reflexes 2+ bilaterally Speech: speech normal Motor Exam: general weakness Psych thought process normal, cooperative and affect normal Psych Narrative: V Appearance: appropriate Assessment & Plan Assessment/Plan (1) History of biliary stent insertion: (2) Bile leak: PLAN: Plan #Abdominal pain with leukocytosis and elevated liver enzymes in the setting of subtotal cholecystectomy with bile leak * She had a covered stent placed in the common bile duct on 11/13/2024. General surgery consulted due to concerns about bile leak. She still does have a AYSE drain in situ. * Leukocytosis has resolved. On IV Zosyn. * Liver enzymes are improving. * Currently tolerating a transitional diet. * Had ERCP yesterday which showed dilatation of the entire main bile duct with presence of cystic duct stones which were removed by biliary sphincterectomy and balloon extraction. 1 stent was removed from the biliary tree and a biliary stent durotomy was performed. 1 temporary stent was placed into the right and left hepatic ducts. * #Dilated bowel * There was concern for possible dilated bowel * General surgery was consulted. Patient does have a history of earlier sick ectomy. Patient started on transitional diet and tolerating it. Management as per general surgery. #: Patient currently and is pumping for breast-feeding. DVT Prophylaxis: Lovenox Disposition: Anticipate DC within the next 24 to 48 hours. Charges/Coding Visit Charges Inpatient E&M: 88166 Subs Hosp L2
[2024-11-17 16:09] LABS: Amylase Body Fluid 13 U/L (.)
[2024-11-17] MEDS: Lactated Ringers 1,000 ML 125 ML IV (17:44)
[2024-11-17 22:10] VITALS: BP 107/78; PULSE 65; RESP 14; TEMP 36.8; O2SAT 96
[2024-11-18 02:39] VITALS: BP 125/85; PULSE 66; RESP 16; TEMP 37.2; O2SAT 98
[2024-11-18] MEDS: Lactated Ringers 1,000 ML 125 ML IV ×2 (02:45→10:08)
[2024-11-18 06:02] LABS: Absolute Neutrophil Count 3.8 X10^3/uL (2.0-7.7); Basophil# 0.03 X10^3/uL; Basophil% 0.4 % (0-1); Eosinophil# 0.48 X10^3/uL; Eosinophils% 6.7 % (0-5); Hematocrit 31.2 % (37-47); Hemoglobin 10.7 g/dL (12.0-15.0); Lymphocyte % 33.4 % (19-41); Mean Corp Hgb Conc 34.3 g/dL (32-36); Mean Corpuscular Volume 87.4 fL (81-99); Mean Platelet Vol. 10.2 fl (6.2-12.0); Monocyte# 0.42 X10^3/uL; Monocyte% 5.8 % (0-10); NRBC Flagged by Analyzer 0 % (0-5); Neutrophil # 3.75 X10^3/uL (2.7-7.7); Neutrophil % 52.3 % (47-70); Platelet Count 200 K/mm3 (150-450); RBC Distribution Width CV 12.6 % (11.6-14.6); RBC Distribution Width SD 40.2 fl (35.1-43.9); Red Blood Count 3.57 M/mm3 (4.2-5.4); White Blood Count 7.2 K/mm3 (4.4-11.0)
[2024-11-18] MEDS: Piperacil/Tazobactam 3.375 GM in 0.9% Normal Saline (50mL MB+) 50 ML IV ×2 (06:20→15:18)
[2024-11-18] MEDS: Ibuprofen 400 MG Tablet PO (06:28)
[2024-11-18 06:42] LABS: ALB/GLOB Ratio 1.2 RATIO (0.9-2.4); AST(SGOT) 19 U/L (<=31); Alanine Aminotransfer ALT/SGPT 60 U/L (<=34); Albumin, Serum 3.5 g/dL (3.5-5.0); Alkaline Phosphatase 123 U/L (35-104); Anion Gap 11 (5-15); BUN 7 mg/dL (4-19); BUN/Creat Ratio 10.9 RATIO (10-20); Calcium,Total 9.1 mg/dL (7.6-11.0); Carbon Dioxide 23.7 mmol/L (21.0-32.0); Chloride 104 mmol/L (98-108); Creatinine, Serum 0.63 mg/dL (0.70-1.20); EST Glomerular Filtration Rate 126 (>60); Estimated Creatinine Clearance 159.96 ml/min (50-250); Globulin 2.8 g/dL (2.2-4.2); Glucose 115 mg/dL (70-99); Potassium 3.9 mmol/L (3.3-5.1); Protein, Total 6.2 g/dL (5.9-8.4); Sodium Level 139 mmol/L (133-145)
--- NOTE | 2024-11-18 08:13 | PCM.PN.SRG ---
Subjective Subjective Patient doing well this morning when seen on rounds. She admitted to some right upper quadrant discomfort last evening. Labs appear stable Objective Data Objective Data Vital Signs: Vital Signs Temp Pulse Resp BP Pulse Ox O2 Del Method 98.9 F 66 16 125/85 H 98 Room Air 11/18/24 02:39 11/18/24 02:39 11/18/24 02:39 11/18/24 02:39 11/18/24 02:39 11/18/24 02:39 Oxygen Delivery Method Room Air Weight: 205 lb 6.4 oz Body Mass Index (BMI) 32.1 Intake & Output: Intake and Output for Last 24 Hours 11/16/24 11/17/24 11/18/24 23:59 23:59 23:59 Intake Total 3150 / 3150 5000 / 5000 1050 / 1050 Output Total 300 / 300 10 80 / 80 Balance 2850 / 2850 4990 / 4960 970 / 970 Lab / Micro Data 11/18/24 05:35 11/18/24 05:35 Labs: Laboratory Results - last 24 hr 11/14/24 18:30: Fluid Amylase 13 11/17/24 08:55: WBC 5.2, RBC 3.54 L, Hgb 10.7 L, Hct 31.3 L, MCV 88.4, MCH 30.2, MCHC 34.2, RDW Std Deviation 40.8, RDW Coeff of Rebeca 12.5, Plt Count 173, MPV 10.2, Immature Gran % (Auto) 0.600, Neut % (Auto) 50.5, Lymph % (Auto) 36.9, [place] % (Auto) 5.5, Eos % (Auto) 6.1 H, Baso % (Auto) 0.4, Absolute Neuts (auto) 2.6, Absolute Lymphs (auto) 1.93, Nucleated RBC % 0, Sodium 139, Potassium 3.7, Chloride 105, Carbon Dioxide 23.5, Anion Gap 11, BUN 3 L, Creatinine 0.57 L, Estim Creat Clear Calc 176.80, Est GFR (MDRD) Non-Af 129, BUN/Creatinine Ratio 6.0 L, Glucose 103 H, Calcium 9.1, Total Bilirubin 0.60, AST 26, ALT 75 H, Alkaline Phosphatase 135 H, Total Protein 6.2, Albumin 3.4 L, Globulin 2.8, Albumin/Globulin Ratio 1.2 11/18/24 05:35: WBC 7.2, RBC 3.57 L, Hgb 10.7 L, Hct 31.2 L, MCV 87.4, MCH 30.0, MCHC 34.3, RDW Std Deviation 40.2, RDW Coeff of Rebeca 12.6, Plt Count 200, MPV 10.2, Immature Gran % (Auto) 1.400 H, Neut % (Auto) 52.3, Lymph % (Auto) 33.4, [place] % (Auto) 5.8, Eos % (Auto) 6.7 H, Baso % (Auto) 0.4, Absolute Neuts (auto) 3.8, Absolute Lymphs (auto) 2.40, Nucleated RBC % 0, Sodium 139, Potassium 3.9, Chloride 104, Carbon Dioxide 23.7, Anion Gap 11, BUN 7, Creatinine 0.63 L, Estim Creat Clear Calc 159.96, Est GFR (MDRD) Non-Af 126, BUN/Creatinine Ratio 10.9, Glucose 115 H, Calcium 9.1, Total Bilirubin 0.30, AST 19, ALT 60 H, Alkaline Phosphatase 123 H, Total Protein 6.2, Albumin 3.5, Globulin 2.8, Albumin/Globulin Ratio 1.2 Micro: Microbiology 11/14/24 18:30 John Amador Drainage Gram Stain - Final 11/14/24 18:30 John Amador Drainage Body Fluid Culture - Final Enterobacter cloacae complex Klebsiella pneumoniae sp pneum Enterococcus faecium 11/14/24 18:10 Blood Culture (Wb) #2 - Left Hand Blood Culture - Preliminary No growth in 48 hours. 11/14/24 18:00 Blood Culture (Wb) - Anticubital Left Blood Culture - Preliminary No growth in 48 hours. Physical Exam Narrative She is alert and oriented x 3. She is in no acute distress. Abdomen is soft and minimally tender AYSE drain with mostly serous drainage although there may be a slight tinge of bilious fluid present Assessment & Plan Assessment/Plan (1) Abnormal CT of the abdomen: PLAN: Plan The patient is a 24-year-old female status post a recent subtotal cholecystectomy for severe acute cholecystitis. She developed a bile leak following procedure. She has had ERCPs and larger stents placed. She is doing well. Labs are returning to normal. Plan is to continue antibiotics and continue the AYSE drain until this fluid is no longer bilious and the output is minimal. She is agreeable this plan. Will continue to follow.
[2024-11-18 08:35] VITALS: BP 124/84; PULSE 63; RESP 16; TEMP 36.8; O2SAT 97
--- NOTE | 2024-11-18 15:35 | DCINST_ITS ---
Discharge Instructions Diet Discharge Diet: No restrictions DC O2, CPAP, BIPAP needs Home O2 Discharge instructions: No Dressing / Incision Discharge Activity: Return to Normal Activity Weight Bearing Status: Weight bearing as tolerated Dressing / Incision Call your doctor if you observe: Fever of 101 or Higher, Shortness of breath, Swelling in the ankles and Uncontrolled pain Follow Up Care Test Results: Test results from this visit will be discussed in further detail at your follow- up appointment, if applicable. Discharge Plan Admission Admit Date/Time: 11/14/24 17:32 Primary Reason for Your Visit: bile leak after cholecystectomy Attending Provider: Kimberlee Perdomo Primary Care Provider: Heather Ruby Consulting Providers: Austyn Joya; Bunny Calderon Discharge Orders/Prescriptions Prescriptions: New amoxicillin-pot clavulanate 875-125 mg tablet 1 tab PO BID Qty: 10 0RF oxycodone 5 mg tablet 5 mg PO Q6H 3 Days Qty: 12 0RF No Action NK Referrals / Follow Up: Heather Ruby DO [Primary Care Provider] - Within 1 Week Aquilino Collins MD [Med Staff - Active Staff] - Within 1 Week Disposition Disposition (needs filled in before D/C Order can be placed): Home, Self Care
--- NOTE | 2024-11-18 15:36 | PCM.DC.SUM ---
Providers Date of Admission: 11/14/24 Date of Discharge: 11/18/24 Primary Care Physician: Dr. Heather Ruby, Consultations 11/14/24 17:43 Consult: Gastroenterology Routine Consulting Provider: Shreya Gastroenterology Reason for Consult: Bile leak EMERGENT Consult: No Notified: Yes Date Notified: 11/14/24 Time Notified: 17:34 Method of Notification: Verbal 11/14/24 19:33 Consult: General Surgery Routine Consulting Provider: Austyn Joya Reason for Consult: abnormal ct EMERGENT Consult: No Notified: Yes Date Notified: 11/14/24 Time Notified: 19:34 Method of Notification: Verbal Reason For Visit: ABDOMINAL PAIN/NAUSEA VOMITING Diagnosis Discharge Diagnosis (1) Abnormal CT of the abdomen: Status: Acute Code(s): R93.5 - Abnormal findings on diagnostic imaging of other abdominal regions, including retroperitoneum Plan #Abdominal pain with leukocytosis and elevated liver enzymes in the setting of subtotal cholecystectomy with bile leak She had a covered stent placed in the common bile duct on 11/13/2024. General surgery consulted due to concerns about bile leak. She still does have a AYSE drain in situ. Leukocytosis has resolved. On IV Zosyn. Liver enzymes are improving. Currently tolerating a transitional diet. Had ERCP yesterday which showed dilatation of the entire main bile duct with presence of cystic duct stones which were removed by biliary sphincterectomy and balloon extraction. 1 stent was removed from the biliary tree and a biliary stent durotomy was performed. 1 temporary stent was placed into the right and left hepatic ducts. #Dilated bowel There was concern for possible dilated bowel General surgery was consulted. Patient does have a history of earlier sick ectomy. Patient started on transitional diet and tolerating it. Management as per general surgery. #: Patient currently and is pumping for breast-feeding. DVT Prophylaxis: Lovenox Disposition: Anticipate DC within the next 24 to 48 hours. Medications at Discharge Home Medications NK 11/12/24 amoxicillin 875 mg-potassium clavulanate 125 mg tablet 1 tab PO BID #10 tabs 11/18/24 oxycodone 5 mg tablet 5 mg PO Q6H 3 days #12 tabs 11/18/24 Hospital Course Operations None and ERCP Procedures None Summary of Care Provided Minutes Spent on Discharge: 46 Hospital Course: Patient is a 24-year-old female with a past medical history as outlined was admitted on 11/14/2024 with a complaint of abdominal pain. She had had subtotal cholecystectomy on 10/21/2024 was subsequently seen in the outpatient setting by gastroenterology on 11/13/2024 due to concerns for biliary leak in the setting of abdominal pain. She had an ERCP done and a biliary leak was found along with choledocholithiasis and a moderately dilated biliary system. As of enterotomy was performed then and she had complete removal of the stone along with balloon extraction. 1 stent was removed from the biliary tree and a covered metal stent was placed in the common bile duct. She did well after the procedure but subsequently developed abdominal pain with several episodes of nausea and vomiting. She went to [facility] ED and was transferred [facility] as she had received all her care here prior to this. On admission lactic acid was mildly elevated and heart rate was elevated at 119 with respiratory rate of 22. LFTs were slightly elevated but her total bilirubin was normal. CT of the abdomen and pelvis showed no evidence of abscess or any acute pathology. She was started on broad-spectrum antibiotics and hydrated with IV fluids, given antinausea medications as well as pain medication. Gastroenterology was consulted. General surgery was also consulted. She had ERCP by gastroenterology on 11/16/2024. Entire main bile duct was dilated and cystic duct stones were found and complete removal was accomplished by biliary sphincterotomy and balloon extraction and 1 stent was removed from the biliary tree. A biliary sphincterotomy was performed and 1 temporary stent was placed into the right hepatic duct and another temporary stent placed into the left hepatic duct. Her labs improved and liver enzymes trended downwards. She did have a AYSE drain in situ in general surgery wanted to keep the drain in place until the fluid was no longer bilious and the output was minimal. Patient remained stable and improved. She was discharged on 11/18/2024. She was discharged on p.o. Augmentin for 5-day course and also discharged on p.o. oxycodone 5 mg every 6 hours as needed for total of 3 days and 12 tablets. She is follow-up with her primary care doctor and with gastroenterology as well as general surgery within 1 to 2 weeks. Patient seen and examined prior to discharge. The abdominal pain had improved. She had an uneventful night. Review of systems otherwise negative. Labs and vitals reviewed. Home medication reviewed and reconciled. Physical Exam Const alert, oriented x3, no apparent distress and well nourished Constitutional Narrative: Class I obesity General Appearance: cooperative and comfortable Orientation / Consciousness: awake HEENT normocephalic, head/scalp atraumatic, hearing grossly normal bilaterally and moist oral mucous membranes Eyes PERRL and EOMs intact bilaterally Neck supple and no JVD Lymph Lymphatic: no lymphedema noted Resp normal respiratory effort, normal air movement, no retractions, no use of accessory muscles and clear to auscultation bilaterally Cardio regular rate, regular rhythm, S1 normal heart sound, S2 normal heart sound and no murmurs Cardio Narrative: GI normal to inspection, nondistended, normoactive bowel sounds and soft to palpation GI Narrative: RUQ tenderness has largely resolved. AYSE drain in situ Extremity normal capillary refill, no clubbing, cyanosis or edema and no calf tenderness Extremity Narrative: Pedal and radial pulses are 2+ General Extremity: no tenderness to palpation of joints or extremities Skin no rashes or lesions noted General Skin Exam: no breakdown Neuro oriented x3, moves all extremities, no focal motor deficits, no sensory deficits noted and deep tendon reflexes 2+ bilaterally Sensorium / Orientation: awake and alert Speech: speech normal Motor Exam: general weakness Psych thought process normal, cooperative and affect normal Appearance: appropriate Weight / BMI Weight Weight: 205 lb 6.4 oz Body Mass Index (BMI) 32.1 ABG / Lab / Microbiology Data 11/18/24 05:35 11/18/24 05:35 Laboratory: Laboratory Results - last 24 hr 11/18/24 05:35: WBC 7.2, RBC 3.57 L, Hgb 10.7 L, Hct 31.2 L, MCV 87.4, MCH 30.0, MCHC 34.3, RDW Std Deviation 40.2, RDW Coeff of Rebeca 12.6, Plt Count 200, MPV 10.2, Immature Gran % (Auto) 1.400 H, Neut % (Auto) 52.3, Lymph % (Auto) 33.4, Woodruff % (Auto) 5.8, Eos % (Auto) 6.7 H, Baso % (Auto) 0.4, Absolute Neuts (auto) 3.8, Absolute Lymphs (auto) 2.40, Nucleated RBC % 0, Sodium 139, Potassium 3.9, Chloride 104, Carbon Dioxide 23.7, Anion Gap 11, BUN 7, Creatinine 0.63 L, Estim Creat Clear Calc 159.96, Est GFR (MDRD) Non-Af 126, BUN/Creatinine Ratio 10.9, Glucose 115 H, Calcium 9.1, Total Bilirubin 0.30, AST 19, ALT 60 H, Alkaline Phosphatase 123 H, Total Protein 6.2, Albumin 3.5, Globulin 2.8, Albumin/Globulin Ratio 1.2 Microbiology: Microbiology 11/14/24 18:30 John Amador Drainage Gram Stain - Final 11/14/24 18:30 John Amador Drainage Body Fluid Culture - Final Enterobacter cloacae complex Klebsiella pneumoniae sp pneum Enterococcus faecium 11/14/24 18:30 John Amador Drainage Anaerobic Culture - Preliminary 11/14/24 18:10 Blood Culture (Wb) #2 - Left Hand Blood Culture - Preliminary No growth in 48 hours. 11/14/24 18:00 Blood Culture (Wb) - Anticubital Left Blood Culture - Preliminary No growth in 48 hours. D/C Instructions Discharge Diet: No restrictions Discharge Activity: Return to Normal Activity Weight Bearing Status: Weight bearing as tolerated Call your doctor if you observe: Fever of 101 or Higher, Shortness of breath, Swelling in the ankles and Uncontrolled pain DC O2, CPAP, BIPAP Needs Home O2 Discharge instructions: No DC home with Oxygen: No Meaningful Use Info Meaningful Use Meaningful Use Diagnoses (Choose all that apply): None applicable Ischemic Stroke Statin Dosing Therapy Reference: STATIN DOSE THERAPY REFERENCE: * Patients > 75 years receive moderate or high dose statin therapy. * Patients 75 years or YOUNGER should receive HIGH intensity statin dose unless contraindicated. You will be required to document reason for non-treatment if statin daily dose does not meet guidelines. HIGH DOSE STATIN THERAPY DAILY Atorvastatin > than or = to 40 mg Rosuvastatin > than or = to 20 mg Amlodipine + Atorvastatin > than or = to 2.5/40 mg Ezetimibe + Simvastatin 10/80 mg Simvastatin 80mg Discharge Plan Admission Admit Date/Time: 11/14/24 17:32 Primary Reason for Your Visit: bile leak after cholecystectomy Attending Provider: Kimberlee Perdomo Primary Care Provider: Heather Ruby Consulting Providers: Austyn Joya; Bunny Calderon Discharge Orders/Prescriptions Prescriptions: New amoxicillin-pot clavulanate 875-125 mg tablet 1 tab PO BID Qty: 10 0RF oxycodone 5 mg tablet 5 mg PO Q6H 3 Days Qty: 12 0RF No Action NK Referrals / Follow Up: Heather Ruby DO [Primary Care Provider] - Within 1 Week Aquilino Collins MD [Med Staff - Active Staff] - Within 1 Week Disposition Disposition (needs filled in before D/C Order can be placed): Home, Self Care Charges/Coding Visit Charges Inpatient E&M: 81330 Disch Hosp >30min
[2024-11-18 15:47] VITALS: BP 108/79; PULSE 66; RESP 16; TEMP 36.8; O2SAT 98
== END 2024-11-18 17:43 | disposition home or self-care (01) | DRG 394 ==
PROVIDERS: Internal Medicine; Internal Medicine Gastroenterology; Admitting Provider Family Medicine; PCP Obstetrics & Gynecology Gynecology; Visit Provider Student in an Organized Health Care Education/Training Program
PROC: 0FPB8DZ Removal of Intraluminal Device from Hepatobiliary Duct, Via Natural or Artificial Opening Endoscopic (ICD-10-PCS; CPT 43260; principal; 2024-11-16 12:40)
DX: K91.89 Other postprocedural complications and disorders of digestive system (principal); K59.39 Other megacolon; K80.50 Calculus of bile duct without cholangitis or cholecystitis without obstruction; K83.8 Other specified diseases of biliary tract; B96.1 Klebsiella pneumoniae [K. pneumoniae] as the cause of diseases classified elsewhere; B95.2 Enterococcus as the cause of diseases classified elsewhere; E66.811 Obesity, class 1; K59.00 Constipation, unspecified; B96.89 Other specified bacterial agents as the cause of diseases classified elsewhere; Z90.49 Acquired absence of other specified parts of digestive tract; Z68.32 Body mass index [BMI] 32.0-32.9, adult
CPT/HCPCS: 36415; 74177; 74330; 76000; 80048; 80053; 80076; 81025; 82150; 83690; 83735; 84100; 85025; 85652; 86140; 87040; 87070; 87075; 87077; 87186; 87205; 94668; 97802; 99252; Q9967; A4216; G0463; J2405

== ENCOUNTER 2024-12-05 22:34 | Emergency (ER) | payer OTHER, SELFPAY ==
[2024-12-05 22:35] VITALS: BP 111/72; PULSE 76; RESP 18; TEMP 36.9; O2SAT 100; BMI 32.2
--- NOTE | 2024-12-05 23:05 | CT_ITS ---
PROCEDURE: ABDOMEN/PELVIS W IV CONT ONLY 12/05/2024 REASON FOR EXAM: RUQ PAIN TECHNIQUE: ABDOMEN/PELVIS W IV CONT ONLY Coronal and Sagittal reconstruction series were provided. CONTRAST: Isovue 370 VOLUME: 78 mL One or more dose reduction techniques were used (e.g., Automated exposure control, adjustment of the mA and/or kV according to patient size, use of iterative reconstruction technique. RADIATION DOSE SUMMARY: CTDlvol: 14 mGy DLP: 743 mGycm COMPARISON: 11/16/2024 FINDINGS: Lung bases are clear. Normal heart size. Diffuse hepatic steatosis. Status post cholecystectomy. Surgical drain in the gallbladder fossa, small amount of residual fluid in the gallbladder fossa. Status post biliary drain placement in stable, good position. Pancreatic stent, good position. Normal spleen, adrenal glands, kidneys. No hydronephrosis or ureteral stone. Normal bladder. Normal uterus and ovaries. No retroperitoneal or pelvic adenopathy. No free air. Nondistended bowel. Status post small bowel resection with anastomosis. Status post appendectomy. No acute large bowel findings. Rectus muscle diastasis. No acute abdominal wall findings. CT/Abdomen/Pelvis W IV Cont ONLY IMPRESSION: No acute abdominopelvic findings. Reading Location: [place] [address]
[2024-12-05] MEDS: 0.9% Normal Saline (1000mL) 1,000 ML 999 ML IV (23:15)
--- OUTSIDE RECORDS SUMMARY | 2024-12-05 23:15 | XMS RPT_ITS | CCD ---
Author Organization [facility]iniSynm Care Team Providers Care Electrician Radio Name Role Phone Lizz PINEDO, Dr. Lerma Emergency Provider Flori DO, Dr. Heather Cerna Primary Care Provider Oswaldo PINEDO, Dr. Jaffe Attending Provider Lizz PINEDO, Dr. Lerma Emergency Provider Flori DO, Dr. Heather Cerna Primary Care Provider Oswaldo PINEDO, Dr. Jaffe Admit Provider [phone] Oswaldo PINEDO, Dr. Jaffe Other Provider Dr. Chandan Mayo MD Other Provider Jamil LOPEZ, Dr. Gillis Attending Provider Oswaldo PINEDO, Dr. Jaffe Attending Provider Gael LOPEZ, Dr. Hawley Attending Provider [phone] Jamil LOPEZ, Dr. Gillis Other Provider Uptain CNM, Crystal K Unavailable [phone] IRINA ZAMORA MD Referring Unavailable DIDESTELLE HALL DO Admitting Unavailable DIDUR, ESTELLE PINEDO Primary Care Unavailable DIDURESTELLE DO Attending Unavailable IRINA ZAMORA MD Consulting [...] Dennis LOPEZ, Dr. Aquilino Strickland Other Provider Santana PA-C, Wendy Attending Provider Tristan LOPEZ, Dr. Bui Attending Provider Dennis LOPEZ, Dr. Aquilino Strickland Referring Provider Santana PA-C, Wendy Attending Provider Esther PA-C, Wendy Attending Provider Kvng LOPEZ, Dr. Bunny Love Admit Provider Kvng LOPEZ, Dr. Bunny Love Other Provider Mahnaz LOPEZ, Dr. Zaman Other Provider Leanne LOPEZ, Dr. Kimberlee Manrique Attending Provider Kvng LOPEZ, Dr. Bunny Love Attending Provider Mahnaz LOPEZ, Dr. Zaman Attending Provider Leanne LOPEZ, Dr. Kimberlee Manrique Other Provider [phone] NONE, NONE Primary Care Unavailable WOOD DO~[id number], WOOD ADONAY A Attending Unavailable WOOD DO~[id number], WOOD ADONAY A Admitting Unavailable TELLES DO, ISA K Consulting Unavailable TELLES DO, ISA K Consulting Unavailable NONE, NONE Consulting Unavailable NONE, NONE Consulting Unavailable TUMU DO, SHANTHAN Y Consulting Unavailable TUMU DO, SHANTHAN Y Consulting Unavailable WOOD DO, ADONAY A Consulting Unavailable WOOD DO, ADONAY A Consulting Unavailable Rich LOPEZ, Dr. Zaman Attending Provider Dr. Ld Chacon DO Referring Provider Leanne LOPEZ, Dr. Kimberlee Hilaria Referring Provider Friend, Ld Admitting Unavailable Jamil, Carlin Attending Unavailable Flori, Heather N Primary Care Unavailable Chandan Mayo Consulting Unavailable Friend, Ld Consulting Unavailable Friend, Ld Attending Unavailable Bunny Calderon Admitting Unavailable Flori, Heather N Primary Care Unavailable Bunny Calderon Consulting Unavailable Koram, Kimberlee Hilaria Referring Unavailable Julia Joya Consulting Unavailable Bunny Calderon Attending Unavailable Friend, Ld Attending Unavailable Flori, Heather N Primary Care Unavailable Flori, Heather N Referring Unavailable WanekAquilino Attending Unavailable Flori, Heather N Primary Care Unavailable Flori, Heather N Referring Unavailable Flori, Heather N Primary Care Unavailable Flori, Heather N Referring Unavailable Wanek, Aquilino Strickland Attending Unavailable Wendy Matos Attending Unavailable Koram, Kimberlee Hilaria Consulting Unavailable Koram, Kimberlee Hilaria Attending Unavailable Julia Joya Attending Unavailable Friend, Ld Attending Unavailable Friend, Ld Consulting Unavailable Flori, Heather N Primary Care Unavailable Radha Romano Referring Unavailable Friend, Dl Admitting Unavailable Flori, Heather N Primary Care Unavailable Jamil, Carlin Referring Unavailable Chandan Mayo Consulting Unavailable Chandan Mayo Attending Unavailable Friend, Ld Consulting Unavailable Jamil, Carlin Consulting Unavailable Jamil, Carlin Attending Unavailable Friend, Ld Consulting Unavailable Friend, Ld Attending Unavailable Flori, Heather N Primary Care Unavailable Flori, Heather N Referring Unavailable Friend, Ld Referring Unavailable Flori, Heather N Primary Care Unavailable Julia Villanueva Attending Unavailable WanekAquilino Attending Unavailable Doris Chacon Attending Unavailable Flori, Heather N Referring Unavailable WanekAquilino Attending Unavailable Flori, Heather N Primary Care Unavailable Flori, Heather N Primary Care Unavailable Wendy Matos Attending Unavailable WanekAquilino Admitting Unavailable WanekAquilino Consulting Unavailable Julia Joya Consulting Unavailable Bunny Calderon Admitting Unavailable Flori, Heather N Primary Care Unavailable Koram, Kimberlee Hilaria Attending Unavailable Bunny Calderon Consulting Unavailable Wanek, Aquilino Strickland Attending Unavailable Radha Romano Attending Unavailable Mikayla Mancini Attending Unavailable Flori, Heather Cerna Primary Care Unavailable Flori, Heather N Referring Unavailable Flori, Heather N Primary Care Unavailable Flori, Heather N Referring Unavailable Mikayla Mancini Attending Unavailable Flori, Heather N Primary Care Unavailable Wanek, Aquilino Strickland Attending Unavailable Flori, Heather N Referring Unavailable Flori, Heather N Primary Care Unavailable Hao Hudson Attending Unavailable Wanek, Aquilino A Referring Unavailable Wanek, Aquilino Strickland Attending Unavailable Flori, Heather N Primary Care Unavailable Wanek, Aquilino A Referring Unavailable Flori, Heather N Primary Care Unavailable Wanek, Aquilino A Attending Unavailable Wanek, Aquilino A Admitting Unavailable Medications Current Medications Medication Drug Class(es) Dates Sig (Normalized) Sig (Original) [place] (Nk) (5 sources) Start: 11-12-2024 [place] (Nk) A ctive November 12, 2024 12:00am Start: 10-20-2024 [place] (Nk) A ctive October 20, 2024 12:00am Completed/Discontinued Medications Medication Drug Class(es) Dates Sig (Normalized) Sig (Original) acetaminophen 325 mg / oxyCODONE hydrochloride 5 mg oral tablet (8 sources) Opioid Agonist Start: 10-23-2024 End: 10-28-2024 Oxycodone-Acetamin ophen (Percocet) 5-325 mg tablet Discontinued 1 {tbl} PO Q8H as needed for pain 7 3 October 23, 2024 October 28, 2024 1:11pm amoxicillin 875 mg / clavulanate 125 mg oral tablet (18 sources) Penicillin-class Antibacterial Start: 11-18-2024 End: 12-02-2024 Amoxicillin-Pot Clavulanate 875-125 mg tablet Discontinued 1 {tbl} PO TWICE A DAY November 18, 2024 12:00am December 02, 2024 1:16pm Start: 10-29-2024 End: 11-08-2024 Amoxicillin-Pot Clavulanate (Augmentin) 500-125 mg tablet Discontinued 1 {tbl} PO TWICE A DAY 29 03October 29, 2024 12:00am November 07, 2024 12:00am November 08, 2024 12:11am Start: 09-26-2024 End: 10-20-2024 Amoxicillin-Pot Clavulanate 875-125 mg tablet Discontinued 1 {tbl} PO TWICE A DAY 14 September 26, 2024 12:00am October 20, 2024 5:57pm docusate sodium 50 mg / sennosides, halfway 8.6 mg oral tablet (10 sources) Start: 09-26-2024 End: 10-09-2024 Sennosides-Docusate Sodium (Stimulant Laxative Plus) 8.6-50 mg Tablet Discontinued 2 {tbl} PO TWICE DAILY NEEDED as needed for Constipation 0 September 26, 2024 12:00am October 09, 2024 8:51am oxyCODONE hydrochloride 5 mg oral tablet (2 sources) Opioid Agonist Start: 11-18-2024 End: 12-02-2024 take 1 tablet by mouth every six hours Oxycodone 5 mg tablet Discontinued 5 mg PO EVERY 6 HOURS 12 November 18, 2024 December 02, 2024 1:16pm Vit,Qjbe38-Iadd-Wic ic (Prenatabs Fa) 29-1 mg Tablet (10 sources) Start: 09-26-2024 End: 10-09-2024 Vit,Hmxk21-Wmsa-Qghds (Prenatabs Fa) 29-1 mg Tablet Discontinued 1 {tbl} PO DAILY@1200 30 September 26, 2024 12:00am October 09, 2024 8:51am Start: 09-26-2024 Vit,C qxi00-Oszq-Fjewm (Prenatabs Fa) 29-1 mg Tablet Active 1 {tbl} PO DAILY@1200 30 September 26, 2024 12:00am Problems Active Problems Problem Classification Problem Date Documented Da te Episodic/Chronic Abdominal pain (20 sources) Abdominal pain; Translations: [Unspecified abdominal pain] Onset: 11-09-2024 10-20-2024 Episodic Biliary tract disease (20 sources) Leakage of bile; Translations: [Disease of biliary tract, unspecified] Onset: 11-13-2024 10-28-2024 Chronic Biliary tract disease (20 sources) Common bile duct calculus; Translations: [Calculus of bile duct without cholangitis or cholecystitis without obstruction] Onset: 10-02-2024 09-25-2024 Episodic Complications of surgical procedures or medical care (1 source) Other postprocedural complications and disorders of digestive system; Translations: [Other postprocedural complications and disorders of digestive system] Onset: 12-04-2024 Episodic Deficiency and other anemia (4 sources) Anemia; Translations: [Anemia, unspecified] 11-14-2024 Episodic Deficiency and other anemia (1 source) Anemia, unspecified; Translations: [Anemia, unspecified] Onset: 12-04-2024 Episodic Diseases of white blood cells (5 sources) Leukocytosis; Translations: [Elevated white blood cell count, unspecified] Onset: 12-04-2024 11-14-2024 Chronic Fever of unknown origin (18 sources) Fever; Translations: [Fever, unspecified] 10-20-2024 Episodic Fluid and electrolyte disorders (4 sources) Lactic acidosis; Translations: [Lactic acidosis] 11-14-2024 Episodic Intestinal obstruction without hernia (5 sources) Infection-induced ileus; Translations: [Ileus, unspecified] Onset: 12-04-2024 11-17-2024 Episodic Nausea and vomiting (5 sources) Nausea and vomiting; Translations: [Nausea with vomiting, unspecified] Onset: 12-04-2024 11-14-2024 Episodic Other complications of (1 source) Liver and biliary tract disorders in , third trimester; Translations: [Liver and biliary tract disorders in , third trimester] Onset: 10-02-2024 Episodic Other gastrointestinal disorders (4 sources) Dilatation of intestine; Translations: [Megacolon, other than Hirschsprung's] 11-15-2024 Episodic Other infections; including parasitic (1 source) Unspecified infectious disease; Translations: [Unspecified infectious disease] Onset: 12-04-2024 Episodic Other liver diseases (4 sources) Enzyme level - finding; Translations: [Elevated transaminase measurement] 11-14-2024 Episodic Other nutritional; endocrine; and metabolic disorders (4 sources) Hypomagnesemia; Translations: [Hypomagnesemia] 11-14-2024 Chronic Other nutritional; endocrine; and metabolic disorders (1 source) Hypomagnesemia; Translations: [Hypomagnesemia] Onset: 12-04-2024 Chronic Other and delivery including normal (20 sources) Vaginal delivery; Translations: [Encounter for full-term uncomplicated delivery] Onset: 10-02-2024 09-25-2024 Episodic Other screening for suspected conditions (not mental disorders or infectious disease) (5 sources) CT of abdomen abnormal; Translations: [Abnormal findings on diagnostic imaging of other abdominal regions, including retroperitoneum] Onset: 12-04-2024 11-14-2024 Episodic Residual codes; unclassified (20 sources) Past history of procedure; Translations: [Other specified postprocedural states] 10-09-2024 Episodic Residual codes; unclassified (2 sources) Other specified postprocedural states; Translations: [OTH SPECIFIED POSTPROCEDURAL STATES] Onset: 11-19-2024 Episodic Residual codes; unclassified (2 sources) Acquired absence of other specified parts of digestive tract; Translations: [Acquired absence of other specified parts of digestive tract] Onset: 11-13-2024 Episodic Unclassified (10 sources) As scheduled Unclassified (8 sources) Call the office on Thursday 10/26 to schedule an appt to have the drain removed. Unclassified (1 source) Acidosis, unspecified; Translations: [Acidosis, unspecified] Onset: 12-04-2024 Unclassified (1 source) Elevation of levels of liver transaminase levels; Translations: [Elevation of levels of liver transaminase levels] Onset: 12-04-2024 Past or Other Problems Problem Classification Problem Date Documented Da te Episodic/Chronic NEGATED: Highlighted row has been ruled out!Unclassified (2 sources) No Problem Information Available Results Test Name Value Interpretation Reference Range Facility Surgery Visit Reporton 12-02 Surgery Visit Report Normal [facility] CBC W/Diff, Automatedon 11-08 Absolute Neut Normal 2.0-7.7 [facility] Comment on above: Result Comment: Canc elled via OM: Order cancelled - Patient discharged Performed By: #### L 100.0100 ####[facility] [address] [place], [place], [id number] HCT Normal 37-47 [facility] Comment on above: Result Comment: Canc elled via OM: Order cancelled - Patient discharged Performed By: #### L 100.0100 ####[facility] [address] [place], [address] HGB Normal 12.0-15.0 [facility] Comment on above: Result Comment: Canc elled via OM: Order cancelled - Patient discharged Performed By: #### L 100.0100 ####[facility] [address] [place], [address] MCH Normal 27.0-32.0 [facility] Comment on above: Result Comment: Canc elled via OM: Order cancelled - Patient discharged Performed By: #### L 100.0100 ####[facility] [address] [place], [address] MCHC Normal 32-36 [facility] Comment on above: Result Comment: Canc elled via OM: Order cancelled - Patient discharged Performed By: #### L 100.0100 ####[facility] [address] [place], [address] MCV Normal 81-99 [facility] Comment on above: Result Comment: Canc elled via OM: Order cancelled - Patient discharged Performed By: #### L 100.0100 ####[facility] [address] [place], [address] NEUT% Normal 47-70 [facility] Comment on above: Result Comment: Canc elled via OM: Order cancelled - Patient discharged Performed By: #### L 100.0100 ####[facility] [address] [place], [address] PLT Normal 150-450 [facility] Comment on above: Result Comment: Canc elled via OM: Order cancelled - Patient discharged Performed By: #### L 100.0100 ####[facility] [address] [place], [address] RBC Normal 4.2-5.4 [facility] Comment on above: Result Comment: Canc elled via OM: Order cancelled - Patient discharged Performed By: #### L 100.0100 ####[facility] [address] [place], [address] RDW CV Normal 11.6-14.6 [facility] Comment on above: Result Comment: Canc elled via OM: Order cancelled - Patient discharged Performed By: #### L 100.0100 ####[facility] [address] [place], [address] RDW SD Normal 35.1-43.9 [facility] Comment on above: Result Comment: Canc elled via OM: Order cancelled - Patient discharged Performed By: #### L 100.0100 ####[facility] [address] [place], [address] WBC Normal 4.4-11.0 [facility] Comment on above: Result Comment: Canc elled via OM: Order cancelled - Patient discharged Performed By: #### L 100.0100 ####[facility] [address] [place], [address] CBC W/Diff, Automatedon 06- Absolute Neut Normal 2.0-7.7 [facility] Comment on above: Result Comment: Canc elled via OM: Order cancelled - Patient discharged Performed By: #### L 100.0100 ####[facility] [address] [place], [address] HCT Normal 37-47 [facility] Comment on above: Result Comment: Canc elled via OM: Order cancelled - Patient discharged Performed By: #### L 100.0100 ####[facility] [address] [place], [address] HGB Normal 12.0-15.0 [facility] Comment on above: Result Comment: Canc elled via OM: Order cancelled - Patient discharged Performed By: #### L 100.0100 ####[facility] [address] [place], [address] MCH Normal 27.0-32.0 [facility] Comment on above: Result Comment: Canc elled via OM: Order cancelled - Patient discharged Performed By: #### L 100.0100 ####[facility] [address] [place], [address] MCHC Normal 32-36 [facility] Comment on above: Result Comment: Canc elled via OM: Order cancelled - Patient discharged Performed By: #### L 100.0100 ####[facility] [address] [place], [address] MCV Normal 81-99 [facility] Comment on above: Result Comment: Canc elled via OM: Order cancelled - Patient discharged Performed By: #### L 100.0100 ####[facility] [address] [place], [address] NEUT% Normal 47-70 [facility] Comment on above: Result Comment: Canc elled via OM: Order cancelled - Patient discharged Performed By: #### L 100.0100 ####[facility] [address] [place], [address] PLT Normal 150-450 [facility] Comment on above: Result Comment: Canc elled via OM: Order cancelled - Patient discharged Performed By: #### L 100.0100 ####[facility] [address] [place], [address] RBC Normal 4.2-5.4 [facility] Comment on above: Result Comment: Canc elled via OM: Order cancelled - Patient discharged Performed By: #### L 100.0100 ####[facility] [address] [place], [address] RDW CV Normal 11.6-14.6 [facility] Comment on above: Result Comment: Canc elled via OM: Order cancelled - Patient discharged Performed By: #### L 100.0100 ####[facility] [address] [place], [address] RDW SD Normal 35.1-43.9 [facility] Comment on above: Result Comment: Canc elled via OM: Order cancelled - Patient discharged Performed By: #### L 100.0100 ####[facility] [address] [place], [address] WBC Normal 4.4-11.0 [facility] Comment on above: Result Comment: Canc elled via OM: Order cancelled - Patient discharged Performed By: #### L 100.0100 ####[facility] [address] [place], [address] CBC W/Diff, Automatedon 06-06 15-2024 Absolute Neut Normal 2.0-7.7 [facility] Comment on above: Result Comment: Canc elled via OM: Order cancelled - Patient discharged Performed By: #### L 100.0100 ####[facility] [address] [place], [address] HCT Normal 37-47 [facility] Comment on above: Result Comment: Canc elled via OM: Order cancelled - Patient discharged Performed By: #### L 100.0100 ####[facility] [address] [place], [address] HGB Normal 12.0-15.0 [facility] Comment on above: Result Comment: Canc elled via OM: Order cancelled - Patient discharged Performed By: #### L 100.0100 ####[facility] [address] [place], [address] MCH Normal 27.0-32.0 [facility] Comment on above: Result Comment: Canc elled via OM: Order cancelled - Patient discharged Performed By: #### L 100.0100 ####[facility] [address] [place], [address] MCHC Normal 32-36 [facility] Comment on above: Result Comment: Canc elled via OM: Order cancelled - Patient discharged Performed By: #### L 100.0100 ####[facility] [address] [place], [address] MCV Normal 81-99 [facility] Comment on above: Result Comment: Canc elled via OM: Order cancelled - Patient discharged Performed By: #### L 100.0100 ####[facility] [address] [place], [address] NEUT% Normal 47-70 [facility] Comment on above: Result Comment: Canc elled via OM: Order cancelled - Patient discharged Performed By: #### L 100.0100 ####[facility] [address] [place], [address] PLT Normal 150-450 [facility] Comment on above: Result Comment: Canc elled via OM: Order cancelled - Patient discharged Performed By: #### L 100.0100 ####[facility] [address] [place], [address] RBC Normal 4.2-5.4 [facility] Comment on above: Result Comment: Canc elled via OM: Order cancelled - Patient discharged Performed By: #### L 100.0100 ####[facility] [address] [place], [address] RDW CV Normal 11.6-14.6 [facility] Comment on above: Result Comment: Canc elled via OM: Order cancelled - Patient discharged Performed By: #### L 100.0100 ####[facility] [address] [place], [address] RDW SD Normal 35.1-43.9 [facility] Comment on above: Result Comment: Canc elled via OM: Order cancelled - Patient discharged Performed By: #### L 100.0100 ####[facility] [address] [place], [address] WBC Normal 4.4-11.0 [facility] Comment on above: Result Comment: Canc elled via OM: Order cancelled - Patient discharged Performed By: #### L 100.0100 ####[facility] [address] [place], [address] CBC W/Diff, Automatedon - Absolute Neut Normal 2.0-7.7 [facility] Comment on above: Result Comment: Canc elled via OM: Order cancelled - Patient discharged Performed By: #### L 100.0100, L500.4050 ####[facility] [address] [place], [address] HCT Normal 37-47 [facility] Comment on above: Result Comment: Canc elled via OM: Order cancelled - Patient discharged Performed By: #### L 100.0100, L500.4050 ####[facility] [address] [place], [address] HGB Normal 12.0-15.0 [facility] Comment on above: Result Comment: Canc elled via OM: Order cancelled - Patient discharged Performed By: #### L 100.0100, L500.4050 ####[facility] [address] [place], [address] MCH Normal 27.0-32.0 [facility] Comment on above: Result Comment: Canc elled via OM: Order cancelled - Patient discharged Performed By: #### L 100.0100, L500.4050 ####[facility] [address] [place], [address] MCHC Normal 32-36 [facility] Comment on above: Result Comment: Canc elled via OM: Order cancelled - Patient discharged Performed By: #### L 100.0100, L500.4050 ####[facility] [address] [place], [address] MCV Normal 81-99 [facility] Comment on above: Result Comment: Canc elled via OM: Order cancelled - Patient discharged Performed By: #### L 100.0100, L500.4050 ####[facility] [address] [place], [address] NEUT% Normal 47-70 [facility] Comment on above: Result Comment: Canc elled via OM: Order cancelled - Patient discharged Performed By: #### L 100.0100, L500.4050 ####[facility] [address] [place], [address] PLT Normal 150-450 [facility] Comment on above: Result Comment: Canc elled via OM: Order cancelled - Patient discharged Performed By: #### L 100.0100, L500.4050 ####[facility] [address] [place], [address] RBC Normal 4.2-5.4 [facility] Comment on above: Result Comment: Canc elled via OM: Order cancelled - Patient discharged Performed By: #### L 100.0100, L500.4050 ####[facility] [address] [place], [address] RDW CV Normal 11.6-14.6 [facility] Comment on above: Result Comment: Canc elled via OM: Order cancelled - Patient discharged Performed By: #### L 100.0100, L500.4050 ####[facility] [address] [place], [address] RDW SD Normal 35.1-43.9 [facility] Comment on above: Result Comment: Canc elled via OM: Order cancelled - Patient discharged Performed By: #### L 100.0100, L500.4050 ####[facility] [address] [place], [address] WBC Normal 4.4-11.0 [facility] Comment on above: Result Comment: Canc elled via OM: Order cancelled - Patient discharged Performed By: #### L 100.0100, L500.4050 ####[facility] [address] [place], [address] Comprehensive Metabolic Prof ilon 11-22-2024 ALB Normal 3.5-5.0 [facility] Comment on above: Result Comment: Canc elled via OM: Order cancelled - Patient discharged Performed By: #### L 100.0100, L500.4050 ####[facility] [address] [place], [address] ALK PHOS Normal 35-104 [facility] Comment on above: Result Comment: Canc elled via OM: Order cancelled - Patient discharged Performed By: #### L 100.0100, L500.4050 ####[facility] [address] [place], [address] ALT Normal <=34 [facility] Comment on above: Result Comment: Canc elled via OM: Order cancelled - Patient discharged Performed By: #### L 100.0100, L500.4050 ####[facility] [address] [place], [address] AST Normal <=31 [facility] Comment on above: Result Comment: Canc elled via OM: Order cancelled - Patient discharged Performed By: #### L 100.0100, L500.4050 ####[facility] [address] [place], [address] BUN Normal 4-19 [facility] Comment on above: Result Comment: Canc elled via OM: Order cancelled - Patient discharged Performed By: #### L 100.0100, L500.4050 ####[facility] [address] [place], [address] BUN/CRE Normal 10-20 [facility] Comment on above: Result Comment: Canc elled via OM: Order cancelled - Patient discharged Performed By: #### L 100.0100, L500.4050 ####[facility] [address] [place], [address] Calcium Normal 7.6-11.0 [facility] Comment on above: Result Comment: Canc elled via OM: Order cancelled - Patient discharged Performed By: #### L 100.0100, L500.4050 ####[facility] [facility] [address] [place], [address] CL Normal 98-108 [facility] Comment on above: Result Comment: Canc elled via OM: Order cancelled - Patient discharged Performed By: #### L 100.0100, L500.4050 ####[facility] [address] [place], [address] CO2 Normal 21.0-32.0 [facility] Comment on above: Result Comment: Canc elled via OM: Order cancelled - Patient discharged Performed By: #### L 100.0100, L500.4050 ####[facility] [address] [place], [address] CREAT,SERUM Normal 0.70-1.20 [facility] Comment on above: Result Comment: Canc elled via OM: Order cancelled - Patient discharged Performed By: #### L 100.0100, L500.4050 ####[facility] [address] [place], [address] eGFR Normal >60 [facility] Comment on above: Result Comment: Canc elled via OM: Order cancelled - Patient discharged Performed By: #### L 100.0100, L500.4050 ####[facility] [address] [place], [address] GAP Normal 5-15 [facility] Comment on above: Result Comment: Canc elled via OM: Order cancelled - Patient discharged Performed By: #### L 100.0100, L500.4050 ####[facility] [address] [place], [address] GLU Normal 70-99 [facility] Comment on above: Result Comment: Canc elled via OM: Order cancelled - Patient discharged Performed By: #### L 100.0100, L500.4050 ####[facility] [address] [place], [address] Potassium Normal 3.3-5.1 [facility] Comment on above: Result Comment: Canc elled via OM: Order cancelled - Patient discharged Performed By: #### L 100.0100, L500.4050 ####[facility] [address] [place], [address] T BILI Normal 0.00-1.30 [facility] Comment on above: Result Comment: Canc elled via OM: Order cancelled - Patient discharged Performed By: #### L 100.0100, L500.4050 ####[facility] [address] [place], [address] T PROT Normal 5.9-8.4 [facility] Comment on above: Result Comment: Canc elled via OM: Order cancelled - Patient discharged Performed By: #### L 100.0100, L500.4050 ####[facility] [address] [place], [address] Comprehensive Metabolic Profil Normal 133-145 [facility] Comment on above: Result Comment: Canc elled via OM: Order cancelled - Patient discharged Performed By: #### L 100.0100, L500.4050 ####[facility] [address] [place], [address] CBC W/Diff, Automatedon 06-1 Absolute Neut Normal 2.0-7.7 [facility] Comment on above: Result Comment: Canc elled via OM: Order cancelled - Patient discharged Performed By: #### L 500.4050, L100.0100 ####[facility] [address] [place], [address] HCT Normal 37-47 [facility] Comment on above: Result Comment: Canc elled via OM: Order cancelled - Patient discharged Performed By: #### L 500.4050, L100.0100 ####[facility] [address] [place], [address] HGB Normal 12.0-15.0 [facility] Comment on above: Result Comment: Canc elled via OM: Order cancelled - Patient discharged Performed By: #### L 500.4050, L100.0100 ####[facility] [address] [place], [address] MCH Normal 27.0-32.0 [facility] Comment on above: Result Comment: Canc elled via OM: Order cancelled - Patient discharged Performed By: #### L 500.4050, L100.0100 ####[facility] [address] [place], [address] MCHC Normal 32-36 [facility] Comment on above: Result Comment: Canc elled via OM: Order cancelled - Patient discharged Performed By: #### L 500.4050, L100.0100 ####[facility] [address] [place], [address] MCV Normal 81-99 [facility] Comment on above: Result Comment: Canc elled via OM: Order cancelled - Patient discharged Performed By: #### L 500.4050, L100.0100 ####[facility] [address] [place], [address] NEUT% Normal 47-70 [facility] Comment on above: Result Comment: Canc elled via OM: Order cancelled - Patient discharged Performed By: #### L 500.4050, L100.0100 ####[facility] [address] [place], [address] PLT Normal 150-450 [facility] Comment on above: Result Comment: Canc elled via OM: Order cancelled - Patient discharged Performed By: #### L 500.4050, L100.0100 ####[facility] [address] [place], [address] RBC Normal 4.2-5.4 [facility] Comment on above: Result Comment: Canc elled via OM: Order cancelled - Patient discharged Performed By: #### L 500.4050, L100.0100 ####[facility] [address] [place], [address] RDW CV Normal 11.6-14.6 [facility] Comment on above: Result Comment: Canc elled via OM: Order cancelled - Patient discharged Performed By: #### L 500.4050, L100.0100 ####[facility] [address] [place], [address] RDW SD Normal 35.1-43.9 [facility] Comment on above: Result Comment: Canc elled via OM: Order cancelled - Patient discharged Performed By: #### L 500.4050, L100.0100 ####[facility] [address] [place], [address] WBC Normal 4.4-11.0 [facility] Comment on above: Result Comment: Canc elled via OM: Order cancelled - Patient discharged Performed By: #### L 500.4050, L100.0100 ####[facility] [address] [place], [address] Comprehensive Metabolic Prof ilon 11-21-2024 ALB Normal 3.5-5.0 [facility] Comment on above: Result Comment: Canc elled via OM: Order cancelled - Patient discharged Performed By: #### L 500.4050, L100.0100 ####[facility] [address] [place], [address] ALK PHOS Normal 35-104 [facility] Comment on above: Result Comment: Canc elled via OM: Order cancelled - Patient discharged Performed By: #### L 500.4050, L100.0100 ####[facility] [address] [place], [address] ALT Normal <=34 [facility] Comment on above: Result Comment: Canc elled via OM: Order cancelled - Patient discharged Performed By: #### L 500.4050, L100.0100 ####[facility] [address] [place], [address] AST Normal <=31 [facility] Comment on above: Result Comment: Canc elled via OM: Order cancelled - Patient discharged Performed By: #### L 500.4050, L100.0100 ####[facility] [address] [place], [address] BUN Normal 4-19 [facility] Comment on above: Result Comment: Canc elled via OM: Order cancelled - Patient discharged Performed By: #### L 500.4050, L100.0100 ####[facility] [address] [place], [address] BUN/CRE Normal 10-20 [facility] Comment on above: Result Comment: Canc elled via OM: Order cancelled - Patient discharged Performed By: #### L 500.4050, L100.0100 ####[facility] [address] [place], [address] Calcium Normal 7.6-11.0 [facility] Comment on above: Result Comment: Canc elled via OM: Order cancelled - Patient discharged Performed By: #### L 500.4050, L100.0100 ####[facility] [address] [place], [address] CL Normal 98-108 [facility] Comment on above: Result Comment: Canc elled via OM: Order cancelled - Patient discharged Performed By: #### L 500.4050, L100.0100 ####[facility] [address] [place], [address] CO2 Normal 21.0-32.0 [facility] Comment on above: Result Comment: Canc elled via OM: Order cancelled - Patient discharged Performed By: #### L 500.4050, L100.0100 ####[facility] [address] [place], [address] CREAT,SERUM Normal 0.70-1.20 [facility] Comment on above: Result Comment: Canc elled via OM: Order cancelled - Patient discharged Performed By: #### L 500.4050, L100.0100 ####[facility] [address] [place], [address] eGFR Normal >60 [facility] Comment on above: Result Comment: Canc elled via OM: Order cancelled - Patient discharged Performed By: #### L 500.4050, L100.0100 ####[facility] [address] [place], [address] GAP Normal 5-15 [facility] Comment on above: Result Comment: Canc elled via OM: Order cancelled - Patient discharged Performed By: #### L 500.4050, L100.0100 ####[facility] [address] [place], [address] GLU Normal 70-99 [facility] Comment on above: Result Comment: Canc elled via OM: Order cancelled - Patient discharged Performed By: #### L 500.4050, L100.0100 ####[facility] [address] [place], [address] Potassium Normal 3.3-5.1 [facility] Comment on above: Result Comment: Canc elled via OM: Order cancelled - Patient discharged Performed By: #### L 500.4050, L100.0100 ####[facility] [address] [place], [address] T BILI Normal 0.00-1.30 [facility] Comment on above: Result Comment: Canc elled via OM: Order cancelled - Patient discharged Performed By: #### L 500.4050, L100.0100 ####[facility] [address] [place], [address] T PROT Normal 5.9-8.4 [facility] Comment on above: Result Comment: Canc elled via OM: Order cancelled - Patient discharged Performed By: #### L 500.4050, L100.0100 ####[facility] [address] [place], [address] Comprehensive Metabolic Profil Normal 133-145 [facility] Comment on above: Result Comment: Canc elled via OM: Order cancelled - Patient discharged Performed By: #### L 500.4050, L100.0100 ####[facility] [address] [place], [address] CBC W/Diff, Automatedon 06-1 Absolute Neut Normal 2.0-7.7 [facility] Comment on above: Result Comment: Canc elled via OM: Order cancelled - Patient discharged Performed By: #### L 100.0100, L500.4050 ####[facility] [address] [place], [address] HCT Normal 37-47 [facility] Comment on above: Result Comment: Canc elled via OM: Order cancelled - Patient discharged Performed By: #### L 100.0100, L500.4050 ####[facility] [address] [place], [address] HGB Normal 12.0-15.0 [facility] Comment on above: Result Comment: Canc elled via OM: Order cancelled - Patient discharged Performed By: #### L 100.0100, L500.4050 ####[facility] [address] [place], [address] MCH Normal 27.0-32.0 [facility] Comment on above: Result Comment: Canc elled via OM: Order cancelled - Patient discharged Performed By: #### L 100.0100, L500.4050 ####[facility] [address] [place], [address] MCHC Normal 32-36 [facility] Comment on above: Result Comment: Canc elled via OM: Order cancelled - Patient discharged Performed By: #### L 100.0100, L500.4050 ####[facility] [address] [place], [address] MCV Normal 81-99 [facility] Comment on above: Result Comment: Canc elled via OM: Order cancelled - Patient discharged Performed By: #### L 100.0100, L500.4050 ####[facility] [address] [place], [address] NEUT% Normal 47-70 [facility] Comment on above: Result Comment: Canc elled via OM: Order cancelled - Patient discharged Performed By: #### L 100.0100, L500.4050 ####[facility] [address] [place], [address] PLT Normal 150-450 [facility] Comment on above: Result Comment: Canc elled via OM: Order cancelled - Patient discharged Performed By: #### L 100.0100, L500.4050 ####[facility] [address] [place], [address] RBC Normal 4.2-5.4 [facility] Comment on above: Result Comment: Canc elled via OM: Order cancelled - Patient discharged Performed By: #### L 100.0100, L500.4050 ####[facility] [address] [place], [address] RDW CV Normal 11.6-14.6 [facility] Comment on above: Result Comment: Canc elled via OM: Order cancelled - Patient discharged Performed By: #### L 100.0100, L500.4050 ####[facility] [address] [place], [address] RDW SD Normal 35.1-43.9 [facility] Comment on above: Result Comment: Canc elled via OM: Order cancelled - Patient discharged Performed By: #### L 100.0100, L500.4050 ####[facility] [address] [place], [address] WBC Normal 4.4-11.0 [facility] Comment on above: Result Comment: Canc elled via OM: Order cancelled - Patient discharged Performed By: #### L 100.0100, L500.4050 ####[facility] [address] [place], [address] Comprehensive Metabolic Prof ilon 11-20-2024 ALB Normal 3.5-5.0 [facility] Comment on above: Result Comment: Canc elled via OM: Order cancelled - Patient discharged Performed By: #### L 100.0100, L500.4050 ####[facility] [address] [place], [address] ALK PHOS Normal 35-104 [facility] Comment on above: Result Comment: Canc elled via OM: Order cancelled - Patient discharged Performed By: #### L 100.0100, L500.4050 ####[facility] [address] [place], [address] ALT Normal <=34 [facility] Comment on above: Result Comment: Canc elled via OM: Order cancelled - Patient discharged Performed By: #### L 100.0100, L500.4050 ####[facility] [address] [place], [address] AST Normal <=31 [facility] Comment on above: Result Comment: Canc elled via OM: Order cancelled - Patient discharged Performed By: #### L 100.0100, L500.4050 ####[facility] [address] [place], [address] BUN Normal 4-19 [facility] Comment on above: Result Comment: Canc elled via OM: Order cancelled - Patient discharged Performed By: #### L 100.0100, L500.4050 ####[facility] [address] [place], [address] BUN/CRE Normal 10-20 [facility] Comment on above: Result Comment: Canc elled via OM: Order cancelled - Patient discharged Performed By: #### L 100.0100, L500.4050 ####[facility] [address] [place], [address] Calcium Normal 7.6-11.0 [facility] Comment on above: Result Comment: Canc elled via OM: Order cancelled - Patient discharged Performed By: #### L 100.0100, L500.4050 ####[facility] [address] [place], [address] CL Normal 98-108 [facility] Comment on above: Result Comment: Canc elled via OM: Order cancelled - Patient discharged Performed By: #### L 100.0100, L500.4050 ####[facility] [address] [place], [address] CO2 Normal 21.0-32.0 [facility] Comment on above: Result Comment: Canc elled via OM: Order cancelled - Patient discharged Performed By: #### L 100.0100, L500.4050 ####[facility] [address] [place], [address] CREAT,SERUM Normal 0.70-1.20 [facility] Comment on above: Result Comment: Canc elled via OM: Order cancelled - Patient discharged Performed By: #### L 100.0100, L500.4050 ####[facility] [address] [place], [address] eGFR Normal >60 [facility] Comment on above: Result Comment: Canc elled via OM: Order cancelled - Patient discharged Performed By: #### L 100.0100, L500.4050 ####[facility] [address] [place], [address] GAP Normal 5-15 [facility] Comment on above: Result Comment: Canc elled via OM: Order cancelled - Patient discharged Performed By: #### L 100.0100, L500.4050 ####[facility] [address] [place], [address] GLU Normal 70-99 [facility] Comment on above: Result Comment: Canc elled via OM: Order cancelled - Patient discharged Performed By: #### L 100.0100, L500.4050 ####[facility] [address] [place], [address] Potassium Normal 3.3-5.1 [facility] Comment on above: Result Comment: Canc elled via OM: Order cancelled - Patient discharged Performed By: #### L 100.0100, L500.4050 ####[facility] [address] [place], [address] T BILI Normal 0.00-1.30 [facility] Comment on above: Result Comment: Canc elled via OM: Order cancelled - Patient discharged Performed By: #### L 100.0100, L500.4050 ####[facility] [address] [place], [address] T PROT Normal 5.9-8.4 [facility] Comment on above: Result Comment: Canc elled via OM: Order cancelled - Patient discharged Performed By: #### L 100.0100, L500.4050 ####[facility] [address] [place], [address] Comprehensive Metabolic Profil Normal 133-145 [facility] Comment on above: Result Comment: Canc elled via OM: Order cancelled - Patient discharged Performed By: #### L 100.0100, L500.4050 ####[facility] [address] [place], [address] Culture, Blood (WB)on 2024 CUB No growth in 5 days. Normal [facility] Comment on above: Performed By: #### M 200.1000 ####[facility] [address] [place], [address] CBC W/Diff, Automatedon 11-08 Absolute Neut Normal 2.0-7.7 [facility] Comment on above: Result Comment: Canc elled via OM: Order cancelled - Patient discharged Performed By: #### L 500.4050, L100.0100 ####[facility] [address] [place], [address] HCT Normal 37-47 [facility] Comment on above: Result Comment: Canc elled via OM: Order cancelled - Patient discharged Performed By: #### L 500.4050, L100.0100 ####[facility] [address] [place], [address] HGB Normal 12.0-15.0 [facility] Comment on above: Result Comment: Canc elled via OM: Order cancelled - Patient discharged Performed By: #### L 500.4050, L100.0100 ####[facility] [address] [place], [address] MCH Normal 27.0-32.0 [facility] Comment on above: Result Comment: Canc elled via OM: Order cancelled - Patient discharged Performed By: #### L 500.4050, L100.0100 ####[facility] [address] [place], [address] MCHC Normal 32-36 [facility] Comment on above: Result Comment: Canc elled via OM: Order cancelled - Patient discharged Performed By: #### L 500.4050, L100.0100 ####[facility] [address] [place], [address] MCV Normal 81-99 [facility] Comment on above: Result Comment: Canc elled via OM: Order cancelled - Patient discharged Performed By: #### L 500.4050, L100.0100 ####[facility] [address] [place], [address] NEUT% Normal 47-70 [facility] Comment on above: Result Comment: Canc elled via OM: Order cancelled - Patient discharged Performed By: #### L 500.4050, L100.0100 ####[facility] [address] [place], [address] PLT Normal 150-450 [facility] Comment on above: Result Comment: Canc elled via OM: Order cancelled - Patient discharged Performed By: #### L 500.4050, L100.0100 ####[facility] [address] [place], [address] RBC Normal 4.2-5.4 [facility] Comment on above: Result Comment: Canc elled via OM: Order cancelled - Patient discharged Performed By: #### L 500.4050, L100.0100 ####[facility] [address] [place], [address] RDW CV Normal 11.6-14.6 [facility] Comment on above: Result Comment: Canc elled via OM: Order cancelled - Patient discharged Performed By: #### L 500.4050, L100.0100 ####[facility] [address] [place], [address] RDW SD Normal 35.1-43.9 [facility] Comment on above: Result Comment: Canc elled via OM: Order cancelled - Patient discharged Performed By: #### L 500.4050, L100.0100 ####[facility] [address] [place], [address] WBC Normal 4.4-11.0 [facility] Comment on above: Result Comment: Canc elled via OM: Order cancelled - Patient discharged Performed By: #### L 500.4050, L100.0100 ####[facility] [address] [place], [address] Comprehensive Metabolic Prof paon 11-19-2024 ALB Normal 3.5-5.0 [facility] Comment on above: Result Comment: Canc elled via OM: Order cancelled - Patient discharged Performed By: #### L 500.4050, L100.0100 ####[facility] [address] [place], [address] ALK PHOS Normal 35-104 [facility] Comment on above: Result Comment: Canc elled via OM: Order cancelled - Patient discharged Performed By: #### L 500.4050, L100.0100 ####[facility] [address] [place], [address] ALT Normal <=34 [facility] Comment on above: Result Comment: Canc elled via OM: Order cancelled - Patient discharged Performed By: #### L 500.4050, L100.0100 ####[facility] [address] [place], [address] AST Normal <=31 [facility] Comment on above: Result Comment: Canc elled via OM: Order cancelled - Patient discharged Performed By: #### L 500.4050, L100.0100 ####[facility] [address] [place], [address] BUN Normal 4-19 [facility] Comment on above: Result Comment: Canc elled via OM: Order cancelled - Patient discharged Performed By: #### L 500.4050, L100.0100 ####[facility] [address] [place], [address] BUN/CRE Normal 10-20 [facility] Comment on above: Result Comment: Canc elled via OM: Order cancelled - Patient discharged Performed By: #### L 500.4050, L100.0100 ####[facility] [address] [place], [address] Calcium Normal 7.6-11.0 [facility] Comment on above: Result Comment: Canc elled via OM: Order cancelled - Patient discharged Performed By: #### L 500.4050, L100.0100 ####[facility] [address] [place], [address] CL Normal 98-108 [facility] Comment on above: Result Comment: Canc elled via OM: Order cancelled - Patient discharged Performed By: #### L 500.4050, L100.0100 ####[facility] [address] [place], [address] CO2 Normal 21.0-32.0 [facility] Comment on above: Result Comment: Canc elled via OM: Order cancelled - Patient discharged Performed By: #### L 500.4050, L100.0100 ####[facility] [address] [place], [address] CREAT,SERUM Normal 0.70-1.20 [facility] Comment on above: Result Comment: Canc elled via OM: Order cancelled - Patient discharged Performed By: #### L 500.4050, L100.0100 ####[facility] [address] [place], [address] eGFR Normal >60 [facility] Comment on above: Result Comment: Canc elled via OM: Order cancelled - Patient discharged Performed By: #### L 500.4050, L100.0100 ####[facility] [address] [place], [address] GAP Normal 5-15 [facility] Comment on above: Result Comment: Canc elled via OM: Order cancelled - Patient discharged Performed By: #### L 500.4050, L100.0100 ####[facility] [address] [place], [address] GLU Normal 70-99 [facility] Comment on above: Result Comment: Canc elled via OM: Order cancelled - Patient discharged Performed By: #### L 500.4050, L100.0100 ####[facility] [address] [place], [address] Potassium Normal 3.3-5.1 [facility] Comment on above: Result Comment: Canc elled via OM: Order cancelled - Patient discharged Performed By: #### L 500.4050, L100.0100 ####[facility] [address] [place], [address] T BILI Normal 0.00-1.30 [facility] Comment on above: Result Comment: Canc elled via OM: Order cancelled - Patient discharged Performed By: #### L 500.4050, L100.0100 ####[facility] [address] [place], [address] T PROT Normal 5.9-8.4 [facility] Comment on above: Result Comment: Canc elled via OM: Order cancelled - Patient discharged Performed By: #### L 500.4050, L100.0100 ####[facility] [address] [place], [address] Comprehensive Metabolic Profil Normal 133-145 [facility] Comment on above: Result Comment: Canc elled via OM: Order cancelled - Patient discharged Performed By: #### L 500.4050, L100.0100 ####[facility] [address] [place], [address] Culture, Anaerobic Any Sourc ahsan 11-19-2024 CUAN Normal [facility] Comment on above: Performed By: #### M 100.2000, M100.2900, M100.4001 ####[facility] [address] [place], [address] Absolute lymphocyte countOrd ered By: Kimberlee Perdomo on 11-18-2024 Lymphocytes Auto (Unsp spec) [#/Vol] 2.40 10*3/uL 0.83-4.51 [facility] Absolute neutrophil countOrd ered By: Kimberlee Pedromo on 11-18-2024 Neutrophils (Bld) [#/Vol] 3.8 10*3/uL 2.0-7.7 [facility] Anion gap in Serum or Plasma Ordered By: Kimberlee Perdomo on 11-18-2024 Anion gap [Moles/Vol] 11 mmol/L 5-15 [facility] Automated lymphocyte count a s percentage of total leukocytesOrdered By: Kimberlee Perdomo on 11-18-2024 Lymphocytes/100 WBC Auto (Unsp spec) 33.4 % 19-41 [facility] BUN/creatinine ratioOrdered By: Kimberlee Perdomo on 11-18-2024 Urea nitrogen/Creatinine [Mass ratio] 10.9 mg/mg 10-20 [facility] Basophil percentageOrdered B y: Kimberlee Perdomo on 11-18-2024 Basophils/100 WBC (Bld) 0.4 % 0-1 [facility] Bilirubin, totalOrdered By: Kimberlee Perdomo on 11-18-2024 Bilirubin [Mass/Vol] 0.30 mg/dL 0.00-1.30 [facility] [facility] Culton 11-18-2024 [facility] Comment on above: Performed By: #### M 100.2000, M100.2900, M100.4001 ####[facility] [address] [place], [address] CBC W/Diff, Automatedon 11-08 Absolute Lymph 2.40 X10 3/uL Normal 0.83-4.51 [facility] Comment on above: Performed By: #### L 500.4050, L100.0100 ####[facility] [address] [place], [address] Absolute Neut 3.8 X10 3/uL Normal 2.0-7.7 [facility] Comment on above: Performed By: #### L 500.4050, L100.0100 ####[facility] [address] [place], [address] Basophils/100 WBC (Bld) 0.4 % Normal 0-1 [facility] Comment on above: Performed By: #### L 500.4050, L100.0100 ####[facility] [address] [place], [address] Eosinophils/100 WBC (Bld) 6.7 % High 0-5 [facility] Comment on above: Performed By: #### L 500.4050, L100.0100 ####[facility] [address] [place], [address] Erythrocyte distribution width (RBC) [Ratio] 12.6 % Normal 11.6-14.6 [facility] Comment on above: Performed By: #### L 500.4050, L100.0100 ####[facility] [address] [place], [address] Hematocrit (Bld) [Volume fraction] 31.2 % Low 37-47 [facility] Comment on above: Performed By: #### L 500.4050, L100.0100 ####[facility] [address] [place], [address] Hemoglobin (Bld) [Mass/Vol] 10.7 g/dL Low 12.0-15.0 [facility] Comment on above: Performed By: #### L 500.4050, L100.0100 ####[facility] [address] [place], [address] IG% 1.400 High 0.0-0.9 [facility] Comment on above: Result Comment: IG% - Immature Granulocytes (promyelocytes, myelocytes andmetamyelocytes) > 1% indicates that a LEFT SHIFT is Present. Performed By: #### L 500.4050, L100.0100 ####[facility] [address] [place], [address] Lymphocytes/100 WBC (Bld) 33.4 % Normal 19-41 [facility] Comment on above: Performed By: #### L 500.4050, L100.0100 ####[facility] [address] [place], [address] MCH (RBC) [Entitic mass] 30.0 pg Normal 27.0-32.0 [facility] Comment on above: Performed By: #### L 500.4050, L100.0100 ####[facility] [address] [place], [address] MCHC (RBC) [Mass/Vol] 34.3 g/dL Normal 32-36 [facility] Comment on above: Performed By: #### L 500.4050, L100.0100 ####[facility] [address] [place], [address] MCV (RBC) [Entitic vol] 87.4 fL Normal 81-99 [facility] Comment on above: Performed By: #### L 500.4050, L100.0100 ####[facility] [address] [place], [address] Monocytes/100 WBC (Bld) 5.8 % Normal 0-10 [facility] Comment on above: Performed By: #### L 500.4050, L100.0100 ####[facility] [address] [place], [address] Neutrophils/100 WBC (Bld) 52.3 % Normal 47-70 [facility] Comment on above: Performed By: #### L 500.4050, L100.0100 ####[facility] [address] [place], [address] Nucleated RBC (Bld) [#/Vol] 0 10*3/uL Normal 0-5 [facility] Comment on above: Performed By: #### L 500.4050, L100.0100 ####[facility] [address] [place], [address] Platelet mean volume (Bld) [Entitic vol] 10.2 fL Normal 6.2-12.0 [facility] Comment on above: Performed By: #### L 500.4050, L100.0100 ####[facility] [address] [place], [address] Platelets (Bld) [#/Vol] 200 10*3/uL Normal 150-450 [facility] Comment on above: Performed By: #### L 500.4050, L100.0100 ####[facility] [address] [place], [address] RBC (Bld) [#/Vol] 3.57 10*6/uL Low 4.2-5.4 [facility] Comment on above: Performed By: #### L 500.4050, L100.0100 ####[facility] [address] [place], [address] RDW SD 40.2 fl Normal 35.1-43.9 [facility] Comment on above: Performed By: #### L 500.4050, L100.0100 ####[facility] [address] [place], [address] WBC (Bld) [#/Vol] 7.2 10*3/uL Normal 4.4-11.0 [facility] Comment on above: Performed By: #### L 500.4050, L100.0100 ####[facility] [address] [place], [address] Carbon dioxide, total [Moles /volume] in Central venous bloodOrdered By: Kimberlee Perdomo on 11-18-2024 CO2 [Moles/Vol] 23.7 mmol/L 21.0-32.0 [facility] Chloride assayOrdered By: Puja Perdomo on 11-18-2024 Chloride [Moles/Vol] 104 mmol/L 98-108 [facility] Comprehensive Metabolic Prof ilon 11-18-2024 Albumin [Mass/Vol] 3.5 g/dL Normal 3.5-5.0 [facility] Comment on above: Performed By: #### L 500.4050, L100.0100 ####[facility] [address] [place], [address] Albumin/Globulin [Mass ratio] 1.2 {ratio} Normal 0.9-2.4 [facility] Comment on above: Performed By: #### L 500.4050, L100.0100 ####[facility] [address] [place], [address] ALK PHOS 123 U/L High 35-104 [facility] Comment on above: Performed By: #### L 500.4050, L100.0100 ####[facility] [address] [place], [address] ALT [Catalytic activity/Vol] 60 U/L High <=34 [facility] Comment on above: Performed By: #### L 500.4050, L100.0100 ####[facility] [address] [place], [address] AST [Catalytic activity/Vol] 19 U/L Normal <=31 [facility] Comment on above: Performed By: #### L 500.4050, L100.0100 ####[facility] [address] [place], [address] Bilirubin [Mass/Vol] 0.30 mg/dL Normal 0.00-1.30 [facility] Comment on above: Performed By: #### L 500.4050, L100.0100 ####[facility] [address] [place], [address] BUN/CRE 10.9 RATIO Normal 10-20 [facility] Comment on above: Performed By: #### L 500.4050, L100.0100 ####[facility] [address] [place], [address] Calcium [Mass/Vol] 9.1 mg/dL Normal 7.6-11.0 [facility] Comment on above: Performed By: #### L 500.4050, L100.0100 ####[facility] [address] [place], [address] Chloride [Moles/Vol] 104 mmol/L Normal 98-108 [facility] Comment on above: Performed By: #### L 500.4050, L100.0100 ####[facility] [address] [place], [address] CO2 [Moles/Vol] 23.7 mmol/L Normal 21.0-32.0 [facility] Comment on above: Performed By: #### L 500.4050, L100.0100 ####[facility] [address] [place], [address] Creatinine [Mass/Vol] 0.63 mg/dL Low 0.70-1.20 [facility] Comment on above: Performed By: #### L 500.4050, L100.0100 ####[facility] [address] [place], [address] ECRCL 159.96 ml/min Normal 50-250 [facility] Comment on above: Performed By: #### L 500.4050, L100.0100 ####[facility] [address] [place], [address] GAP 11 Normal 5-15 [facility] Comment on above: Performed By: #### L 500.4050, L100.0100 ####[facility] [address] [place], [address] GFR/1.73 sq M.predicted among non-blacks MDRD (S/P/Bld) [Vol rate/Area] 126 mL/min/{1.73_m2} Normal >60 [facility] Comment on above: Result Comment: mL/m in/1.73m2 CKD-EPI Creatinine Equation (2020) Performed By: #### L 500.4050, L100.0100 ####[facility] [address] [place], [address] Globulin (S) [Mass/Vol] 2.8 g/dL Normal 2.2-4.2 [facility] Comment on above: Performed By: #### L 500.4050, L100.0100 ####[facility] [address] [place], [address] Glucose [Mass/Vol] 115 mg/dL High 70-99 [facility] Comment on above: Performed By: #### L 500.4050, L100.0100 ####[facility] [address] [place], [address] Potassium [Moles/Vol] 3.9 mmol/L Normal 3.3-5.1 [facility] Comment on above: Performed By: #### L 500.4050, L100.0100 ####[facility] [address] [place], [address] Sodium [Moles/Vol] 139 mmol/L Normal 133-145 [facility] Comment on above: Performed By: #### L 500.4050, L100.0100 ####[facility] [address] [place], [address] T PROT 6.2 g/dL Normal 5.9-8.4 [facility] Comment on above: Performed By: #### L 500.4050, L100.0100 ####[facility] [address] [place], [address] Urea nitrogen [Mass/Vol] 7 mg/dL Normal 4-19 [facility] Comment on above: Performed By: #### L 500.4050, L100.0100 ####[facility] [address] [place], [address] Discharge Instructionon 11-08 Discharge Instruction Normal [facility] Eosinophil percentageOrdered By: Kimberlee Perdomo on 11-18-2024 Eosinophils/100 WBC (Bld) 6.7 % High 0-5 [facility] Erythrocyte distribution wid th ratioOrdered By: Kimberlee Perdomo on 11-18-2024 Erythrocyte distribution width (RBC) [Ratio] 12.6 % 11.6-14.6 [facility] Erythrocyte distribution wid th standard deviationOrdered By: Kimberlee Perdomo on 11-18-2024 Erythrocyte distribution width (RBC) [Ratio] 40.2 fl 35.1-43.9 [facility] Glomerular filtration rate ( GFR) estimation/1.73 sq m using serum, plasma, or whole bOrdered By: Kimberlee Perdomo on 11-18-2024 GFR/1.73 sq M.predicted among non-blacks MDRD (S/P/Bld) [Vol rate/Area] 126 mL/min/{1.73_m2} >60 [facility] Comment on above: mL/min/1.73m2 CKD-EP I Creatinine Equation (2020) Hematocrit Auto (Bld) [Volum e fraction]Ordered By: Kimberlee Perdomo on 11-18-2024 Hematocrit (Bld) [Volume fraction] 31.2 % Low 37-47 [facility] Hemoglobin measurementOrdere d By: Kimberlee Perdomo on 11-18-2024 Hemoglobin (Bld) [Mass/Vol] 10.7 g/dL Low 12.0-15.0 [facility] Immature granulocytes/100 WB C Auto (Bld)Ordered By: Kimberlee Perdomo on 11-18-2024 Immature granulocytes/100 WBC (Bld) 1.400 % High 0.0-0.9 [facility] Comment on above: IG% - Immature Granu locytes (promyelocytes, myelocytes and metamyelocytes) > 1% indicates that a LEFT SHIFT is Present. Laboratory - Chemistry and C hemistry - challengeOrdered By: Kimberlee Perdomo on 11-18-2024 AST [Catalytic activity/Vol] 19 U/L <32 [facility] MCV (mean corpuscular volume ) determinationOrdered By: Kimberlee Perdomo on 11-18-2024 MCV (RBC) [Entitic vol] 87.4 fL 81-99 [facility] Mean corpuscular hemoglobin (MCH) determinationOrdered By: Kimberleetricia Perdomo on 11-18-2024 MCH (RBC) [Entitic mass] 30.0 pg 27.0-32.0 [facility] Mean corpuscular hemoglobin concentration (MCHC) determinationOrdered By: Kimberlee Perdomo on 11-18-2024 MCHC (RBC) [Mass/Vol] 34.3 g/dL 32-36 [facility] Mean platelet volume determi nationOrdered By: Kimberlee Perdomo on 11-18-2024 Platelet mean volume (Bld) [Entitic vol] 10.2 fL 6.2-12.0 [facility] Monocyte percentageOrdered B y: Kimberlee Perdomo on 11-18-2024 Monocytes/100 WBC (Bld) 5.8 % 0-10 [facility] Neutrophil percentageOrdered By: Kimberlee Perdomo on 11-18-2024 Neutrophils/100 WBC (Bld) 52.3 % 47-70 [facility] Nucleated red blood cell per centageOrdered By: Kimberlee Perdomo on 11-18-2024 Nucleated RBC/100 WBC (Bld) [Ratio] 0 % 0-5 [facility] Platelet countOrdered By: Puja Perdomo on 11-18-2024 Platelets (Bld) [#/Vol] 200 10*3/uL 150-450 [facility] Potassium measurement (mass/ volume)Ordered By: Kimberlee Perdomo on 11-18-2024 Potassium (Unsp spec) [Mass/Vol] 3.9 mmol/L 3.3-5.1 [facility] RBC Auto (Bld) [#/Vol]Ordere d By: Kimberlee Perdomo on 11-18-2024 RBC (Bld) [#/Vol] 3.57 10*6/uL Low 4.2-5.4 [facility] Serum creatinine measurement (mass/volume)Ordered By: Kimberlee Perdomo on 11-18-2024 Creatinine [Mass/Vol] 0.63 mg/dL Low 0.70-1.20 [facility] Serum globulin measurementOr dered By: Kimberlee Perdomo on 11-18-2024 Globulin (S) [Mass/Vol] 2.8 g/dL 2.2-4.2 [facility] Serum glucose measurement (m ass/volume)Ordered By: Kimberlee Perdomo on 11-18-2024 Glucose [Mass/Vol] 115 mg/dL High 70-99 [facility] Serum or plasma alanine allan otransferase (ALT) measurementOrdered By: Kimberlee Perdomo 11-18-2024 ALT [Catalytic activity/Vol] 60 U/L High <35 [facility] Serum or plasma albumin jeimy urement (mass/volume)Ordered By: Kimberlee Perdomo 11-18-2024 Albumin [Mass/Vol] 3.5 g/dL 3.5-5.0 [facility] Serum or plasma albumin/glob ulin mass ratioOrdered By: Kimberlee Perdomo on 11-18-2024 Albumin/Globulin [Mass ratio] 1.2 {ratio} 0.9-2.4 [facility] Serum or plasma alkaline chaka sphatase measurementOrdered By: Kimberlee Perdomo on 11-18-2024 ALP [Catalytic activity/Vol] 123 U/L High 35-104 [facility] Serum or plasma calcium jeimy urement (mass/volume)Ordered By: Kimberleetricia Perdomo on 11-18-2024 Calcium [Mass/Vol] 9.1 mg/dL 7.6-11.0 [facility] Serum or plasma urea nitroge n measurement (mass/volume)Ordered By: Kimberlee Perdomo on 11-18-2024 Urea nitrogen [Mass/Vol] 7 mg/dL 4-19 [facility] Sodium levelOrdered By: Kimberleetricia Perdomo on 11-18-2024 Sodium [Moles/Vol] 139 mmol/L 133-145 [facility] Total proteinOrdered By: Fatuma tricia Perdomo on 11-18-2024 Protein [Mass/Vol] 6.2 g/dL 5.9-8.4 [facility] White blood cell (WBC) count Ordered By: Kimberlee Perdomo on 11-18-2024 WBC (Bld) [#/Vol] 7.2 10*3/uL 4.4-11.0 [facility] Amylase Body Fluidon 025 AMYLASE,BDY FLD 13 U/L Normal . [facility] Comment on above: Result Comment: ____ : BODY FLUID TYPE : AMYLASE : : : : : Lymph : 50 - 83 : : : : : Peritoneal : : : Fluid : 88 - 109 : : : : : Saliva : : : (Mixed Glands) : [id number] - [id number] : : : : Urban Candelaria V. Reference Intervals for Adults and Children 2008. Ninth Edition (V9.1) [employer], [facility]; [place]: December 2008.Performed at: [facility] [address] [id number] Director: Jakub Tracy PhD, Phone: [phone] Performed By: #### L 500.4050, L100.0100, L3800.0050, L501.1060, L501.2060 ####[facility] [address] [place], [address] CBC W/Diff, Automatedon 06- 0-2025 Absolute Lymph 1.93 X10 3/uL Normal 0.83-4.51 [facility] Comment on above: Performed By: #### L 500.4050, L100.0100 ####[facility] [address] [place], [address] Absolute Neut 2.6 X10 3/uL Normal 2.0-7.7 [facility] Comment on above: Performed By: #### L 500.4050, L100.0100 ####[facility] [address] [place], [address] Basophils/100 WBC (Bld) 0.4 % Normal 0-1 [facility] Comment on above: Performed By: #### L 500.4050, L100.0100 ####[facility] [address] [place], [address] Eosinophils/100 WBC (Bld) 6.1 % High 0-5 [facility] Comment on above: Performed By: #### L 500.4050, L100.0100 ####[facility] [address] [place], [address] Erythrocyte distribution width (RBC) [Ratio] 12.5 % Normal 11.6-14.6 [facility] Comment on above: Performed By: #### L 500.4050, L100.0100 ####[facility] [address] [place], [address] Hematocrit (Bld) [Volume fraction] 31.3 % Low 37-47 [facility] Comment on above: Performed By: #### L 500.4050, L100.0100 ####[facility] [address] [place], [address] Hemoglobin (Bld) [Mass/Vol] 10.7 g/dL Low 12.0-15.0 [facility] Comment on above: Performed By: #### L 500.4050, L100.0100 ####[facility] [address] [place], [address] IG% 0.600 Normal 0.0-0.9 [facility] Comment on above: Result Comment: IG% - Immature Granulocytes (promyelocytes, myelocytes andmetamyelocytes) > 1% indicates that a LEFT SHIFT is Present. Performed By: #### L 500.4050, L100.0100 ####[facility] [address] [place], [address] Lymphocytes/100 WBC (Bld) 36.9 % Normal 19-41 [facility] Comment on above: Performed By: #### L 500.4050, L100.0100 ####[facility] [address] [place], [address] MCH (RBC) [Entitic mass] 30.2 pg Normal 27.0-32.0 [facility] Comment on above: Performed By: #### L 500.4050, L100.0100 ####[facility] [address] [place], [address] MCHC (RBC) [Mass/Vol] 34.2 g/dL Normal 32-36 [facility] Comment on above: Performed By: #### L 500.4050, L100.0100 ####[facility] [address] [place], [address] MCV (RBC) [Entitic vol] 88.4 fL Normal 81-99 [facility] Comment on above: Performed By: #### L 500.4050, L100.0100 ####[facility] [address] [place], [address] Monocytes/100 WBC (Bld) 5.5 % Normal 0-10 [facility] Comment on above: Performed By: #### L 500.4050, L100.0100 ####[facility] [address] [place], [address] Neutrophils/100 WBC (Bld) 50.5 % Normal 47-70 [facility] Comment on above: Performed By: #### L 500.4050, L100.0100 ####[facility] [address] [place], [address] Nucleated RBC (Bld) [#/Vol] 0 10*3/uL Normal 0-5 [facility] Comment on above: Performed By: #### L 500.4050, L100.0100 ####[facility] [address] [place], [address] Platelet mean volume (Bld) [Entitic vol] 10.2 fL Normal 6.2-12.0 [facility] Comment on above: Performed By: #### L 500.4050, L100.0100 ####[facility] [address] [place], [address] Platelets (Bld) [#/Vol] 173 10*3/uL Normal 150-450 [facility] Comment on above: Performed By: #### L 500.4050, L100.0100 ####[facility] [address] [place], [address] RBC (Bld) [#/Vol] 3.54 10*6/uL Low 4.2-5.4 [facility] Comment on above: Performed By: #### L 500.4050, L100.0100 ####[facility] [address] [place], [address] RDW SD 40.8 fl Normal 35.1-43.9 [facility] Comment on above: Performed By: #### L 500.4050, L100.0100 ####[facility] [address] [place], [address] WBC (Bld) [#/Vol] 5.2 10*3/uL Normal 4.4-11.0 [facility] Comment on above: Performed By: #### L 500.4050, L100.0100 ####[facility] [address] [place], [address] Comprehensive Metabolic Prof ilon 11-17-2024 Albumin [Mass/Vol] 3.4 g/dL Low 3.5-5.0 [facility] Comment on above: Performed By: #### L 500.4050, L100.0100 ####[facility] [address] [place], [address] Albumin/Globulin [Mass ratio] 1.2 {ratio} Normal 0.9-2.4 [facility] Comment on above: Performed By: #### L 500.4050, L100.0100 ####[facility] [address] [place], [address] ALK PHOS 135 U/L High 35-104 [facility] Comment on above: Performed By: #### L 500.4050, L100.0100 ####[facility] [address] [place], [address] ALT [Catalytic activity/Vol] 75 U/L High <=34 [facility] Comment on above: Performed By: #### L 500.4050, L100.0100 ####[facility] [address] [place], [address] AST [Catalytic activity/Vol] 26 U/L Normal <=31 [facility] Comment on above: Performed By: #### L 500.4050, L100.0100 ####[facility] [address] [place], [address] Bilirubin [Mass/Vol] 0.60 mg/dL Normal 0.00-1.30 [facility] Comment on above: Performed By: #### L 500.4050, L100.0100 ####[facility] [address] [place], [address] BUN/CRE 6.0 RATIO Low 10-20 [facility] Comment on above: Performed By: #### L 500.4050, L100.0100 ####[facility] [address] [place], [address] Calcium [Mass/Vol] 9.1 mg/dL Normal 7.6-11.0 [facility] Comment on above: Performed By: #### L 500.4050, L100.0100 ####[facility] [address] [place], [address] Chloride [Moles/Vol] 105 mmol/L Normal 98-108 [facility] Comment on above: Performed By: #### L 500.4050, L100.0100 ####[facility] [address] [place], [address] CO2 [Moles/Vol] 23.5 mmol/L Normal 21.0-32.0 [facility] Comment on above: Performed By: #### L 500.4050, L100.0100 ####[facility] [address] [place], [address] Creatinine [Mass/Vol] 0.57 mg/dL Low 0.70-1.20 [facility] Comment on above: Performed By: #### L 500.4050, L100.0100 ####[facility] [address] [place], [address] ECRCL 176.80 ml/min Normal 50-250 [facility] Comment on above: Performed By: #### L 500.4050, L100.0100 ####[facility] [address] [place], [address] GAP 11 Normal 5-15 [facility] Comment on above: Performed By: #### L 500.4050, L100.0100 ####[facility] [address] [place], [address] GFR/1.73 sq M.predicted among non-blacks MDRD (S/P/Bld) [Vol rate/Area] 129 mL/min/{1.73_m2} Normal >60 [facility] Comment on above: Result Comment: mL/m in/1.73m2 CKD-EPI Creatinine Equation (2020) Performed By: #### L 500.4050, L100.0100 ####[facility] [address] [place], [address] Globulin (S) [Mass/Vol] 2.8 g/dL Normal 2.2-4.2 [facility] Comment on above: Performed By: #### L 500.4050, L100.0100 ####[facility] [address] [place], [address] Glucose [Mass/Vol] 103 mg/dL High 70-99 [facility] Comment on above: Performed By: #### L 500.4050, L100.0100 ####[facility] [address] [place], [address] Potassium [Moles/Vol] 3.7 mmol/L Normal 3.3-5.1 [facility] Comment on above: Performed By: #### L 500.4050, L100.0100 ####[facility] [address] [place], [address] Sodium [Moles/Vol] 139 mmol/L Normal 133-145 [facility] Comment on above: Performed By: #### L 500.4050, L100.0100 ####[facility] [address] [place], [address] T PROT 6.2 g/dL Normal 5.9-8.4 [facility] Comment on above: Performed By: #### L 500.4050, L100.0100 ####[facility] [address] [place], [address] Urea nitrogen [Mass/Vol] 3 mg/dL Low 4-19 [facility] Comment on above: Performed By: #### L 500.4050, L100.0100 ####[facility] [address] [place], [address] Gram Stainon 11-17-2024 GS Normal [facility] Comment on above: Performed By: #### M 100.2000, M100.2900, M100.4001 ####[facility] [address] [place], [address] Abdomen/Pelvis W IV Cont ONL Yon 11-16-2024 Abdomen/Pelvis W IV Cont ONLY Normal [facility] Basic Metabolic Profile (BMP )on 11-16-2024 BUN/CRE 8.5 RATIO Low 10-20 [facility] Comment on above: Performed By: #### L 100.0100, L500.2500 ####[facility] [address] [place], [address] Calcium [Mass/Vol] 8.5 mg/dL Normal 7.6-11.0 [facility] Comment on above: Performed By: #### L 100.0100, L500.2500 ####[facility] [address] [place], [address] Chloride [Moles/Vol] 106 mmol/L Normal 98-108 [facility] Comment on above: Performed By: #### L 100.0100, L500.2500 ####[facility] [address] [place], [address] CO2 [Moles/Vol] 24.4 mmol/L Normal 21.0-32.0 [facility] Comment on above: Performed By: #### L 100.0100, L500.2500 ####[facility] [address] [place], [address] Creatinine [Mass/Vol] 0.75 mg/dL Normal 0.70-1.20 [facility] Comment on above: Performed By: #### L 100.0100, L500.2500 ####[facility] [address] [place], [address] ECRCL 134.36 ml/min Normal 50-250 [facility] Comment on above: Performed By: #### L 100.0100, L500.2500 ####[facility] [address] [place], [address] GAP 10 Normal 5-15 [facility] Comment on above: Performed By: #### L 100.0100, L500.2500 ####[facility] [address] [place], [address] GFR/1.73 sq M.predicted among non-blacks MDRD (S/P/Bld) [Vol rate/Area] 113 mL/min/{1.73_m2} Normal >60 [facility] Comment on above: Result Comment: mL/m in/1.73m2 CKD-EPI Creatinine Equation (2020) Performed By: #### L 100.0100, L500.2500 ####[facility] [address] [place], [address] Glucose [Mass/Vol] 101 mg/dL High 70-99 [facility] Comment on above: Performed By: #### L 100.0100, L500.2500 ####[facility] [address] [place], [address] Potassium [Moles/Vol] 3.4 mmol/L Normal 3.3-5.1 [facility] Comment on above: Performed By: #### L 100.0100, L500.2500 ####[facility] [address] [place], [address] Sodium [Moles/Vol] 141 mmol/L Normal 133-145 [facility] Comment on above: Performed By: #### L 100.0100, L500.2500 ####[facility] [address] [place], [address] Urea nitrogen [Mass/Vol] 6 mg/dL Normal 4-19 [facility] Comment on above: Performed By: #### L 100.0100, L500.2500 ####[facility] [address] [place], [address] Bilirubin directOrdered By: Kimberlee Perdomo on 11-16-2024 Bilirubin.direct [Mass/Vol] 0.45 mg/dL High 0.00-0.30 [facility] CBC W/Diff, Automatedon 06-0 Absolute Lymph 1.50 X10 3/uL Normal 0.83-4.51 [facility] Comment on above: Performed By: #### L 101.9900, L501.6710, L100.0100, L500.4050 ####[facility] [address] [place], [address] Absolute Neut 4.8 X10 3/uL Normal 2.0-7.7 [facility] Comment on above: Performed By: #### L 101.9900, L501.6710, L100.0100, L500.4050 ####[facility] [address] [place], [address] Basophils/100 WBC (Bld) 0.3 % Normal 0-1 [facility] Comment on above: Performed By: #### L 101.9900, L501.6710, L100.0100, L500.4050 ####[facility] [address] [place], [address] Eosinophils/100 WBC (Bld) 2.8 % Normal 0-5 [facility] Comment on above: Performed By: #### L 101.9900, L501.6710, L100.0100, L500.4050 ####[facility] [address] [place], [address] Erythrocyte distribution width (RBC) [Ratio] 12.7 % Normal 11.6-14.6 [facility] Comment on above: Performed By: #### L 101.9900, L501.6710, L100.0100, L500.4050 ####[facility] [address] [place], [address] Hematocrit (Bld) [Volume fraction] 37.2 % Normal 37-47 [facility] Comment on above: Performed By: #### L 101.9900, L501.6710, L100.0100, L500.4050 ####[facility] [address] [place], [address] Hemoglobin (Bld) [Mass/Vol] 12.5 g/dL Normal 12.0-15.0 [facility] Comment on above: Performed By: #### L 101.9900, L501.6710, L100.0100, L500.4050 ####[facility] [address] [place], [address] IG% 0.600 Normal 0.0-0.9 [facility] Comment on above: Result Comment: IG% - Immature Granulocytes (promyelocytes, myelocytes andmetamyelocytes) > 1% indicates that a LEFT SHIFT is Present. Performed By: #### L 101.9900, L501.6710, L100.0100, L500.4050 ####[facility] [address] [place], [address] Lymphocytes/100 WBC (Bld) 21.9 % Normal 19-41 [facility] Comment on above: Performed By: #### L 101.9900, L501.6710, L100.0100, L500.4050 ####[facility] [address] [place], [address] MCH (RBC) [Entitic mass] 29.7 pg Normal 27.0-32.0 [facility] Comment on above: Performed By: #### L 101.9900, L501.6710, L100.0100, L500.4050 ####[facility] [address] [place], [address] MCHC (RBC) [Mass/Vol] 33.6 g/dL Normal 32-36 [facility] Comment on above: Performed By: #### L 101.9900, L501.6710, L100.0100, L500.4050 ####[facility] [address] [place], [address] MCV (RBC) [Entitic vol] 88.4 fL Normal 81-99 [facility] Comment on above: Performed By: #### L 101.9900, L501.6710, L100.0100, L500.4050 ####[facility] [address] [place], [address] Monocytes/100 WBC (Bld) 4.4 % Normal 0-10 [facility] Comment on above: Performed By: #### L 101.9900, L501.6710, L100.0100, L500.4050 ####[facility] [address] [place], [address] Neutrophils/100 WBC (Bld) 70.0 % Normal 47-70 [facility] Comment on above: Performed By: #### L 101.9900, L501.6710, L100.0100, L500.4050 ####[facility] [address] [place], [address] Nucleated RBC (Bld) [#/Vol] 0 10*3/uL Normal 0-5 [facility] Comment on above: Performed By: #### L 101.9900, L501.6710, L100.0100, L500.4050 ####[facility] [address] [place], [address] Platelet mean volume (Bld) [Entitic vol] 10.4 fL Normal 6.2-12.0 [facility] Comment on above: Performed By: #### L 101.9900, L501.6710, L100.0100, L500.4050 ####[facility] [address] [place], [address] Platelets (Bld) [#/Vol] 220 10*3/uL Normal 150-450 [facility] Comment on above: Performed By: #### L 101.9900, L501.6710, L100.0100, L500.4050 ####[facility] [address] [place], [address] RBC (Bld) [#/Vol] 4.21 10*6/uL Normal 4.2-5.4 [facility] Comment on above: Performed By: #### L 101.9900, L501.6710, L100.0100, L500.4050 ####[facility] [address] [place], [address] RDW SD 40.8 fl Normal 35.1-43.9 [facility] Comment on above: Performed By: #### L 101.9900, L501.6710, L100.0100, L500.4050 ####[facility] [address] [place], [address] WBC (Bld) [#/Vol] 6.9 10*3/uL Normal 4.4-11.0 [facility] Comment on above: Performed By: #### L 101.9900, L501.6710, L100.0100, L500.4050 ####[facility] [address] [place], [address] Absolute Lymph 1.80 X10 3/uL Normal 0.83-4.51 [facility] Comment on above: Performed By: #### L 100.0100, L500.2500 ####[facility] [address] [place], [address] Absolute Neut 3.5 X10 3/uL Normal 2.0-7.7 [facility] Comment on above: Performed By: #### L 100.0100, L500.2500 ####[facility] [address] [place], [address] Basophils/100 WBC (Bld) 0.3 % Normal 0-1 [facility] Comment on above: Performed By: #### L 100.0100, L500.2500 ####[facility] [address] [place], [address] Eosinophils/100 WBC (Bld) 4.9 % Normal 0-5 [facility] Comment on above: Performed By: #### L 100.0100, L500.2500 ####[facility] [address] [place], [address] Erythrocyte distribution width (RBC) [Ratio] 12.7 % Normal 11.6-14.6 [facility] Comment on above: Performed By: #### L 100.0100, L500.2500 ####[facility] [address] [place], [address] Hematocrit (Bld) [Volume fraction] 30.7 % Low 37-47 [facility] Comment on above: Performed By: #### L 100.0100, L500.2500 ####[facility] [address] [place], [address] Hemoglobin (Bld) [Mass/Vol] 10.5 g/dL Low 12.0-15.0 [facility] Comment on above: Performed By: #### L 100.0100, L500.2500 ####[facility] [address] [place], [address] IG% 0.500 Normal 0.0-0.9 [facility] Comment on above: Result Comment: IG% - Immature Granulocytes (promyelocytes, myelocytes andmetamyelocytes) > 1% indicates that a LEFT SHIFT is Present. Performed By: #### L 100.0100, L500.2500 ####[facility] [address] [place], [address] Lymphocytes/100 WBC (Bld) 29.4 % Normal 19-41 [facility] Comment on above: Performed By: #### L 100.0100, L500.2500 ####[facility] [address] [place], [address] MCH (RBC) [Entitic mass] 30.1 pg Normal 27.0-32.0 [facility] Comment on above: Performed By: #### L 100.0100, L500.2500 ####[facility] [address] [place], [address] MCHC (RBC) [Mass/Vol] 34.2 g/dL Normal 32-36 [facility] Comment on above: Performed By: #### L 100.0100, L500.2500 ####[facility] [address] [place], [address] MCV (RBC) [Entitic vol] 88.0 fL Normal 81-99 [facility] Comment on above: Performed By: #### L 100.0100, L500.2500 ####[facility] [address] [place], [address] Monocytes/100 WBC (Bld) 7.3 % Normal 0-10 [facility] Comment on above: Performed By: #### L 100.0100, L500.2500 ####[facility] [address] [place], [address] Neutrophils/100 WBC (Bld) 57.6 % Normal 47-70 [facility] Comment on above: Performed By: #### L 100.0100, L500.2500 ####[facility] [address] [place], [address] Nucleated RBC (Bld) [#/Vol] 0 10*3/uL Normal 0-5 [facility] Comment on above: Performed By: #### L 100.0100, L500.2500 ####[facility] [address] [place], [address] Platelet mean volume (Bld) [Entitic vol] 10.5 fL Normal 6.2-12.0 [facility] Comment on above: Performed By: #### L 100.0100, L500.2500 ####[facility] [address] [place], [address] Platelets (Bld) [#/Vol] 152 10*3/uL Normal 150-450 [facility] Comment on above: Performed By: #### L 100.0100, L500.2500 ####[facility] [address] [place], [address] RBC (Bld) [#/Vol] 3.49 10*6/uL Low 4.2-5.4 [facility] Comment on above: Performed By: #### L 100.0100, L500.2500 ####[facility] [address] [place], [address] RDW SD 40.5 fl Normal 35.1-43.9 [facility] Comment on above: Performed By: #### L 100.0100, L500.2500 ####[facility] [address] [place], [address] WBC (Bld) [#/Vol] 6.1 10*3/uL Normal 4.4-11.0 [facility] Comment on above: Performed By: #### L 100.0100, L500.2500 ####[facility] [address] [place], [address] CRPon 11-16-2024 C-REACTIVE PROT 68.90 mg/L High 0.0-3.0 [facility] Comment on above: Performed By: #### L 101.9900, L501.6710, L100.0100, L500.4050 ####[facility] [address] [place], [address] Comprehensive Metabolic Prof ilon 11-16-2024 Albumin [Mass/Vol] 3.7 g/dL Normal 3.5-5.0 [facility] Comment on above: Performed By: #### L 101.9900, L501.6710, L100.0100, L500.4050 ####[facility] [address] [place], [address] Albumin/Globulin [Mass ratio] 1.2 {ratio} Normal 0.9-2.4 [facility] Comment on above: Performed By: #### L 101.9900, L501.6710, L100.0100, L500.4050 ####[facility] [address] [place], [address] ALK PHOS 166 U/L High 35-104 [facility] Comment on above: Performed By: #### L 101.9900, L501.6710, L100.0100, L500.4050 ####[facility] [address] [place], [address] ALT [Catalytic activity/Vol] 101 U/L High <=34 [facility] Comment on above: Performed By: #### L 101.9900, L501.6710, L100.0100, L500.4050 ####[facility] [address] [place], [address] AST [Catalytic activity/Vol] 45 U/L High <=31 [facility] Comment on above: Performed By: #### L 101.9900, L501.6710, L100.0100, L500.4050 ####[facility] [address] [place], [address] Bilirubin [Mass/Vol] 0.64 mg/dL Normal 0.00-1.30 [facility] Comment on above: Performed By: #### L 101.9900, L501.6710, L100.0100, L500.4050 ####[facility] [address] [place], [address] BUN/CRE 7.2 RATIO Low 10-20 [facility] Comment on above: Performed By: #### L 101.9900, L501.6710, L100.0100, L500.4050 ####[facility] [address] [place], [address] Calcium [Mass/Vol] 9.0 mg/dL Normal 7.6-11.0 [facility] Comment on above: Performed By: #### L 101.9900, L501.6710, L100.0100, L500.4050 ####[facility] [address] [place], [address] Chloride [Moles/Vol] 105 mmol/L Normal 98-108 [facility] Comment on above: Performed By: #### L 101.9900, L501.6710, L100.0100, L500.4050 ####[facility] [address] [place], [address] CO2 [Moles/Vol] 24.3 mmol/L Normal 21.0-32.0 [facility] Comment on above: Performed By: #### L 101.9900, L501.6710, L100.0100, L500.4050 ####[facility] [address] [place], [address] Creatinine [Mass/Vol] 0.68 mg/dL Low 0.70-1.20 [facility] Comment on above: Performed By: #### L 101.9900, L501.6710, L100.0100, L500.4050 ####[facility] [address] [place], [address] ECRCL 148.20 ml/min Normal 50-250 [facility] Comment on above: Performed By: #### L 101.9900, L501.6710, L100.0100, L500.4050 ####[facility] [address] [place], [address] GAP 12 Normal 5-15 [facility] Comment on above: Performed By: #### L 101.9900, L501.6710, L100.0100, L500.4050 ####[facility] [address] [place], [address] GFR/1.73 sq M.predicted among non-blacks MDRD (S/P/Bld) [Vol rate/Area] 124 mL/min/{1.73_m2} Normal >60 [facility] Comment on above: Result Comment: mL/m in/1.73m2 CKD-EPI Creatinine Equation (2020) Performed By: #### L 101.9900, L501.6710, L100.0100, L500.4050 ####[facility] [address] [place], [address] Globulin (S) [Mass/Vol] 3.1 g/dL Normal 2.2-4.2 [facility] Comment on above: Performed By: #### L 101.9900, L501.6710, L100.0100, L500.4050 ####[facility] [address] [place], [address] Glucose [Mass/Vol] 94 mg/dL Normal 70-99 [facility] Comment on above: Performed By: #### L 101.9900, L501.6710, L100.0100, L500.4050 ####[facility] [address] [place], [address] Potassium [Moles/Vol] 3.8 mmol/L Normal 3.3-5.1 [facility] Comment on above: Performed By: #### L 101.9900, L501.6710, L100.0100, L500.4050 ####[facility] [address] [place], [address] Sodium [Moles/Vol] 142 mmol/L Normal 133-145 [facility] Comment on above: Performed By: #### L 101.9900, L501.6710, L100.0100, L500.4050 ####[facility] [address] [place], [address] T PROT 6.8 g/dL Normal 5.9-8.4 [facility] Comment on above: Performed By: #### L 101.9900, L501.6710, L100.0100, L500.4050 ####[facility] [address] [place], [address] Urea nitrogen [Mass/Vol] 5 mg/dL Normal 4-19 [facility] Comment on above: Performed By: #### L 101.9900, L501.6710, L100.0100, L500.4050 ####[facility] [address] [place], [address] ERCP Biliary/Pancreason 06- ERCP Biliary/Pancreas Normal [facility] ERCP Reporton 11-16-2024 ERCP Report Normal [facility] Erythrocyte Sed Rateon 11-16 SED RATE 10 mm/hr Normal 0-30 [facility] Comment on above: Performed By: #### L 101.9900, L501.6710, L100.0100, L500.4050 ####[facility] [address] [place], [address] Erythrocyte sedimentation ra teOrdered By: Ld Friend on 11-16-2024 ESR (Bld) [Velocity] 10 mm/h 0-30 [facility] Liver Profileon 11-16-2024 Albumin [Mass/Vol] 3.3 g/dL Low 3.5-5.0 [facility] Comment on above: Performed By: #### L 500.3400 ####[facility] [address] [place], [address] ALK PHOS 133 U/L High 35-104 [facility] Comment on above: Performed By: #### L 500.3400 ####[facility] [address] [place], [address] ALT [Catalytic activity/Vol] 99 U/L High <=34 [facility] Comment on above: Performed By: #### L 500.3400 ####[facility] [address] [place], [address] AST [Catalytic activity/Vol] 35 U/L High <=31 [facility] Comment on above: Performed By: #### L 500.3400 ####[facility] [address] [place], [address] Bilirubin [Mass/Vol] 0.85 mg/dL Normal 0.00-1.30 [facility] Comment on above: Performed By: #### L 500.3400 ####[facility] [address] [place], [address] Bilirubin.direct [Mass/Vol] 0.45 mg/dL High 0.00-0.30 [facility] Comment on above: Performed By: #### L 500.3400 ####[facility] [address] [place], [address] Globulin (S) [Mass/Vol] 2.7 g/dL Normal 2.2-4.2 [facility] Comment on above: Performed By: #### L 500.3400 ####[facility] [address] [place], [address] T PROT 6.0 g/dL Normal 5.9-8.4 [facility] Comment on above: Performed By: #### L 500.3400 ####[facility] [address] [place], [address] MR/POSTOP.ANEon 11-16-2024 MR/POSTOP.ANE Normal [facility] MR/BYBCGUFQ0lw 11-16-2024 MR/POSTOPAN2 Normal [facility] ,Urineon 11-16-2024 Beta HCG ( test) Ql (U) Negative Normal [facility] Comment on above: Order Comment: Femal es 12-55 or menstruation outside age [id number] Result Comment: Very dilute urine specimens, as indicated by a low specificgravity, may not contain chemical sales representative levels of hCG.If is still suspected, a first morning urinespecimen should be collected 48 hours later and tested. Performed By: #### L 400.7600 ####[facility] [address] [place], [address] Serum or plasma C reactive p rotein measurement (mass/volume)Ordered By: Ld Chacon on 11-16-2024 CRP [Mass/Vol] 68.90 mg/L High 0.0-3.0 [facility] Urine testOrdered By: Ld Chacon on 11-16-2024 HCG ( test) Ql (U) Negative [facility] Comment on above: Very dilute urine sp ecimens, as indicated by a low specificgravity, may not contain chemical sales representative levels of hCG. If is still suspected, a first morning urinespecimen should be collected 48 hours later and tested. CBC W/Diff, Automatedon Absolute Lymph 1.52 X10 3/uL Normal 0.83-4.51 [facility] Comment on above: Performed By: #### L 501.2300, L501.5200, L500.4050, L100.0100 ####[facility] [address] [place], [address] Absolute Neut 5.8 X10 3/uL Normal 2.0-7.7 [facility] Comment on above: Performed By: #### L 501.2300, L501.5200, L500.4050, L100.0100 ####[facility] [address] [place], [address] Basophils/100 WBC (Bld) 0.3 % Normal 0-1 [facility] Comment on above: Performed By: #### L 501.2300, L501.5200, L500.4050, L100.0100 ####[facility] [address] [place], [address] Eosinophils/100 WBC (Bld) 1.9 % Normal 0-5 [facility] Comment on above: Performed By: #### L 501.2300, L501.5200, L500.4050, L100.0100 ####[facility] [address] [place], [address] Erythrocyte distribution width (RBC) [Ratio] 12.7 % Normal 11.6-14.6 [facility] Comment on above: Performed By: #### L 501.2300, L501.5200, L500.4050, L100.0100 ####[facility] [address] [place], [address] Hematocrit (Bld) [Volume fraction] 33.3 % Low 37-47 [facility] Comment on above: Performed By: #### L 501.2300, L501.5200, L500.4050, L100.0100 ####[facility] [address] [place], [address] Hemoglobin (Bld) [Mass/Vol] 11.3 g/dL Low 12.0-15.0 [facility] Comment on above: Performed By: #### L 501.2300, L501.5200, L500.4050, L100.0100 ####[facility] [address] [place], [address] IG% 0.400 Normal 0.0-0.9 [facility] Comment on above: Result Comment: IG% - Immature Granulocytes (promyelocytes, myelocytes andmetamyelocytes) > 1% indicates that a LEFT SHIFT is Present. Performed By: #### L 501.2300, L501.5200, L500.4050, L100.0100 ####[facility] [address] [place], [address] Lymphocytes/100 WBC (Bld) 19.1 % Normal 19-41 [facility] Comment on above: Performed By: #### L 501.2300, L501.5200, L500.4050, L100.0100 ####[facility] [address] [place], [address] MCH (RBC) [Entitic mass] 29.8 pg Normal 27.0-32.0 [facility] Comment on above: Performed By: #### L 501.2300, L501.5200, L500.4050, L100.0100 ####[facility] [address] [place], [address] MCHC (RBC) [Mass/Vol] 33.9 g/dL Normal 32-36 [facility] Comment on above: Performed By: #### L 501.2300, L501.5200, L500.4050, L100.0100 ####[facility] [address] [place], [address] MCV (RBC) [Entitic vol] 87.9 fL Normal 81-99 [facility] Comment on above: Performed By: #### L 501.2300, L501.5200, L500.4050, L100.0100 ####[facility] [address] [place], [address] Monocytes/100 WBC (Bld) 5.8 % Normal 0-10 [facility] Comment on above: Performed By: #### L 501.2300, L501.5200, L500.4050, L100.0100 ####[facility] [address] [place], [address] Neutrophils/100 WBC (Bld) 72.5 % High 47-70 [facility] Comment on above: Performed By: #### L 501.2300, L501.5200, L500.4050, L100.0100 ####[facility] [address] [place], [address] Nucleated RBC (Bld) [#/Vol] 0 10*3/uL Normal 0-5 [facility] Comment on above: Performed By: #### L 501.2300, L501.5200, L500.4050, L100.0100 ####[facility] [address] [place], [address] Platelet mean volume (Bld) [Entitic vol] 10.5 fL Normal 6.2-12.0 [facility] Comment on above: Performed By: #### L 501.2300, L501.5200, L500.4050, L100.0100 ####[facility] [address] [place], [address] Platelets (Bld) [#/Vol] 147 10*3/uL Low 150-450 [facility] Comment on above: Performed By: #### L 501.2300, L501.5200, L500.4050, L100.0100 ####[facility] [address] [place], [address] RBC (Bld) [#/Vol] 3.79 10*6/uL Low 4.2-5.4 [facility] Comment on above: Performed By: #### L 501.2300, L501.5200, L500.4050, L100.0100 ####[facility] [address] [place], [address] RDW SD 41.1 fl Normal 35.1-43.9 [facility] Comment on above: Performed By: #### L 501.2300, L501.5200, L500.4050, L100.0100 ####[facility] [address] [place], [address] WBC (Bld) [#/Vol] 8.0 10*3/uL Normal 4.4-11.0 [facility] Comment on above: Performed By: #### L 501.2300, L501.5200, L500.4050, L100.0100 ####[facility] [address] [place], [address] Comprehensive Metabolic Prof ilon 11-15-2024 Albumin [Mass/Vol] 3.2 g/dL Low 3.5-5.0 [facility] Comment on above: Performed By: #### L 501.2300, L501.5200, L500.4050, L100.0100 ####[facility] [address] [place], [address] Albumin/Globulin [Mass ratio] 1.2 {ratio} Normal 0.9-2.4 [facility] Comment on above: Performed By: #### L 501.2300, L501.5200, L500.4050, L100.0100 ####[facility] [address] [place], [address] ALK PHOS 117 U/L High 35-104 [facility] Comment on above: Performed By: #### L 501.2300, L501.5200, L500.4050, L100.0100 ####[facility] [address] [place], [address] ALT [Catalytic activity/Vol] 147 U/L High <=34 [facility] Comment on above: Performed By: #### L 501.2300, L501.5200, L500.4050, L100.0100 ####[facility] [address] [place], [address] AST [Catalytic activity/Vol] 75 U/L High <=31 [facility] Comment on above: Performed By: #### L 501.2300, L501.5200, L500.4050, L100.0100 ####[facility] [address] [place], [address] Bilirubin [Mass/Vol] 1.02 mg/dL Normal 0.00-1.30 [facility] Comment on above: Performed By: #### L 501.2300, L501.5200, L500.4050, L100.0100 ####[facility] [address] [place], [address] BUN/CRE 11.3 RATIO Normal 10-20 [facility] Comment on above: Performed By: #### L 501.2300, L501.5200, L500.4050, L100.0100 ####[facility] [address] [place], [address] Calcium [Mass/Vol] 8.6 mg/dL Normal 7.6-11.0 [facility] Comment on above: Performed By: #### L 501.2300, L501.5200, L500.4050, L100.0100 ####[facility] [address] [place], [address] Chloride [Moles/Vol] 104 mmol/L Normal 98-108 [facility] Comment on above: Performed By: #### L 501.2300, L501.5200, L500.4050, L100.0100 ####[facility] [address] [place], [address] CO2 [Moles/Vol] 21.1 mmol/L Normal 21.0-32.0 [facility] Comment on above: Performed By: #### L 501.2300, L501.5200, L500.4050, L100.0100 ####[facility] [address] [place], [address] Creatinine [Mass/Vol] 0.72 mg/dL Normal 0.70-1.20 [facility] Comment on above: Performed By: #### L 501.2300, L501.5200, L500.4050, L100.0100 ####[facility] [address] [place], [address] ECRCL 139.96 ml/min Normal 50-250 [facility] Comment on above: Performed By: #### L 501.2300, L501.5200, L500.4050, L100.0100 ####[facility] [address] [place], [address] GAP 12 Normal 5-15 [facility] Comment on above: Performed By: #### L 501.2300, L501.5200, L500.4050, L100.0100 ####[facility] [address] [place], [address] GFR/1.73 sq M.predicted among non-blacks MDRD (S/P/Bld) [Vol rate/Area] 119 mL/min/{1.73_m2} Normal >60 [facility] Comment on above: Result Comment: mL/m in/1.73m2 CKD-EPI Creatinine Equation (2020) Performed By: #### L 501.2300, L501.5200, L500.4050, L100.0100 ####[facility] [address] [place], [address] Globulin (S) [Mass/Vol] 2.7 g/dL Normal 2.2-4.2 [facility] Comment on above: Performed By: #### L 501.2300, L501.5200, L500.4050, L100.0100 ####[facility] [address] [place], [address] Glucose [Mass/Vol] 82 mg/dL Normal 70-99 [facility] [facility] Comment on above: Performed By: #### L 501.2300, L501.5200, L500.4050, L100.0100 ####[facility] [address] [place], [address] Potassium [Moles/Vol] 3.4 mmol/L Normal 3.3-5.1 [facility] Comment on above: Result Comment: Hemo lysis present, Results??could be affected.?? Performed By: #### L 501.2300, L501.5200, L500.4050, L100.0100 ####[facility] [address] [place], [address] Sodium [Moles/Vol] 137 mmol/L Normal 133-145 [facility] Comment on above: Performed By: #### L 501.2300, L501.5200, L500.4050, L100.0100 ####[facility] [address] [place], [address] T PROT 5.9 g/dL Normal 5.9-8.4 [facility] Comment on above: Performed By: #### L 501.2300, L501.5200, L500.4050, L100.0100 ####[facility] [address] [place], [address] Urea nitrogen [Mass/Vol] 8 mg/dL Normal 4-19 [facility] Comment on above: Performed By: #### L 501.2300, L501.5200, L500.4050, L100.0100 ####[facility] [address] [place], [address] Consultation - Surgicalon Consultation - Surgical Normal W [facility] Magnesiumon 11-15-2024 Magnesium [Mass/Vol] 2.0 mg/dL Normal 1.5-2.2 [facility] Comment on above: Performed By: #### L 501.2300, L501.5200, L500.4050, L100.0100 ####[facility] [address] [place], [address] Magnesium measurement (mass/ volume)Ordered By: Doris Chacon on 11-15-2024 Magnesium (Unsp spec) [Mass/Vol] 2.0 mg/dL 1.5-2.2 [facility] Phosphoruson 11-15-2024 Phosphate [Mass/Vol] 2.4 mg/dL Low 2.7-4.5 [facility] Comment on above: Performed By: #### L 501.2300, L501.5200, L500.4050, L100.0100 ####[facility] [address] [place], [address] Abdomen/Pelvis W IV Cont ONL Yon 11-14-2024 Abdomen/Pelvis W IV Cont ONLY Normal [facility] Amylase body fluidOrdered By : Ld Chacon on 11-14-2024 Amylase (Body fld) [Catalytic activity/Vol] 13 U/L . [facility] Comment on above: : BODY FLUID TYPE : AMYLASE : : : : : Lymph : 50 - 83 : : : : : Peritoneal : : : Fluid : 88 - 109 : : : : : Saliva : : : (Mixed Glands) : [id number] - [id number] : : : : Jo W, Urban V. Reference Intervals for Adults and Children 2008. Ninth Edition (V9.1) [employer], [facility]; [place]: December 2008.Performed at: [address] [id number] Director: Jakub Tracy PhD, Phone: [phone] Anaerobic cultureOrdered By: Doris Chacon on 11-14-2024 Bacteria identified Anaer cx Nom (Unsp spec) No anaerobic bacteria isolated. [facility] Blood cultureOrdered By: Key Chacon on 11-14-2024 Bacteria identified Cx Nom (Bld) No growth in 5 days. [facility] Body fluid cultureOrdered By : Doris Chacon on 11-14-2024 Microbial culture, body fluid Enterobacter cloacae complex Abnormal [facility] Microbial culture, body fluid Klebsiella pneumoniae sp pneum Abnormal [facility] CBC W Auto Differential pane l (Bld)on 11-14-2024 Basophils (Bld) [#/Vol] 0.01 10*3/uL Normal <=0.70 [facility] Comment on above: Performed By: #### 5 7021-8 #### [place] [address] [place] [address] Senior Java Web Developer - Scarlett RUVALCABAIA [id number] Basophils/100 WBC (Bld) 0.1 % Normal <=2.0 [facility] Comment on above: Performed By: #### 5 7021-8 #### [address] [facility] [place] [address] Senior Java Web Developer - Scarlett ALLAN [id number] Eosinophils (Bld) [#/Vol] 0.00 10*3/uL Normal <=0.70 [facility] Comment on above: Performed By: #### 5 7021-8 #### [place] [address] [place] [address] Senior Java Web Developer - Scarlett RUVALCABAIA [id number] Eosinophils/100 WBC (Bld) 0.0 % Normal <=10.0 [facility] Comment on above: Performed By: #### 5 7021-8 #### [address] [place] [address] Senior Java Web Developer - Scarlett RUVALCABAIA [id number] Erythrocyte distribution width (RBC) [Entitic vol] 39.4 fL Normal 36.4-46.3 [facility] Comment on above: Performed By: #### 5 7021-8 #### [address] [facility] [place] [address] Senior Java Web Developer - Scarlett ALLAN [id number] Hematocrit (Bld) [Volume fraction] 38.8 % Normal 37.0-47.0 [facility] Comment on above: Performed By: #### 5 7021-8 #### [place] [address] [place] [address] Senior Java Web Developer - Scarlett RUVALCABAIA [id number] Hemoglobin (Bld) [Mass/Vol] 13.2 g/dL Normal 12.0-16.0 [facility] Comment on above: Performed By: #### 5 7021-8 #### [address] [place] [address] Senior Java Web Developer - Scarlett Lopez CLIA [id number] Immature granulocytes (Bld) [#/Vol] 0.05 10*3/uL Normal <=0.10 [facility] Comment on above: Performed By: #### 5 7021-8 #### [address] [place] [address] Senior Java Web Developer - Scarlett RUVALCABAIA [id number] Immature granulocytes/100 WBC (Bld) 0.60 % Normal <=1.50 [facility] Comment on above: Performed By: #### 5 7021-8 #### [address] [place] [address] Senior Java Web Developer - Scarlett Lopez CLIA [id number] Lymphocytes (Bld) [#/Vol] 1.51 10*3/uL Normal 1.20-3.40 [facility] Comment on above: Performed By: #### 5 7021-8 #### [address] [place] [address] Senior Java Web Developer - Scarlett RUVALCABAIA [id number] Lymphocytes/100 WBC (Bld) 18.9 % Low 20.0-40.0 [facility] Comment on above: Performed By: #### 5 7021-8 #### [address] [place] [address] Senior Java Web Developer - Scarlett Lopez CLIA [id number] MCH (RBC) [Entitic mass] 30.0 pg Normal 27.0-31.0 [facility] Comment on above: Performed By: #### 5 7021-8 #### [address] [place] [address] Senior Java Web Developer - Scarlett Lopez CLIA [id number] MCHC (RBC) [Mass/Vol] 34.0 g/dL Normal 32.0-36.0 [facility] Comment on above: Performed By: #### 5 7021-8 #### [place] [address] [place] [address] Senior Java Web Developer - Scarlett RUVALCABAIA [id number] MCV (RBC) [Entitic vol] 88.2 fL Normal 80.0-100.0 [facility] Comment on above: Performed By: #### 5 7021-8 #### [address] [facility] [place] [address] Senior Java Web Developer - Scarlett Lopez CLIA [id number] Monocytes (Bld) [#/Vol] 0.15 10*3/uL Normal 0.10-0.60 [facility] Comment on above: Performed By: #### 5 7021-8 #### [address] [place] [address] Senior Java Web Developer - Scarlett Lopez CLIA [id number] Monocytes/100 WBC (Bld) 1.9 % Normal <=8.0 [facility] Comment on above: Performed By: #### 5 7021-8 #### [address] [facility] [place] [address] Senior Java Web Developer - Scarlett Lopez CLIA [id number] Neutrophils (Bld) [#/Vol] 6.26 10*3/uL Normal 1.40-6.50 [facility] Comment on above: Performed By: #### 5 7021-8 #### [address] [place] [address] Senior Java Web Developer - Scarlett Lopez CLIA [id number] Neutrophils/100 WBC (Bld) 78.5 % High 50.0-70.0 [facility] Comment on above: Performed By: #### 5 7021-8 #### [address] [place] [address] Senior Java Web Developer - Scarlett Lopez CLIA [id number] Nucleated RBC (Bld) [#/Vol] 0.00 10*3/uL Normal <=0.10 [facility] Comment on above: Performed By: #### 5 7021-8 #### [facility] [address] [place] [address] Senior Java Web Developer - Scarlett ALLAN [id number] Platelet mean volume (Bld) [Entitic vol] 10.2 fL Normal 9.0-13.0 [facility] Comment on above: Performed By: #### 5 7021-8 #### [place] [address] [place] [address] Senior Java Web Developer - Scarlett RUVALCABAIA [id number] Platelets (Bld) [#/Vol] 190 10*3/uL Normal 130-400 [facility] Comment on above: Performed By: #### 5 7021-8 #### [address] [place] [address] Senior Java Web Developer - Scarlett RUVALCABAIA [id number] RBC (Bld) [#/Vol] 4.40 10*6/uL Normal 4.00-6.30 [facility] Comment on above: Performed By: #### 5 7021-8 #### [address] [place] [address] Senior Java Web Developer - Scarlett RUVALCABAIA [id number] WBC (Bld) [#/Vol] 7.98 10*3/uL Normal 4.80-10.80 [facility] Comment on above: Performed By: #### 5 7021-8 #### [address] [place] [address] Senior Java Web Developer - Scarlett RUVALCABAIA [id number] CBC W Reflex Manual Differen tial panel (Bld)on 11-14-2024 Acanthocytes LM Ql (Bld) Normal NONE SEEN [facility] Comment on above: Performed By: #### 5 7022-6 #### [address] [place] [address] Senior Java Web Developer - Scarlett RUVALCABAIA [id number] Performed for [place] [address] Anisocytosis Ql (Bld) Normal NONE SEEN [facility] Comment on above: Performed By: #### 5 7022-6 #### [facility] [address] [place] [address] Senior Java Web Developer - Scarlett ALLAN [id number] Performed for [facility] [address] [place], [place] [address] Violetta rods LM Ql (Bld) Normal NONE SEEN [facility] Comment on above: Performed By: #### 5 7022-6 #### [facility] [address] [place] [address] Senior Java Web Developer - Scarlett ALLAN [id number] Performed for [facility] [address] [place], [place] [address] Band form neutrophils/100 WBC (Bld) 1 % Normal <=10 [facility] Comment on above: Performed By: #### 5 7022-6 #### [facility] [address] [place] [address] Senior Java Web Developer - Scarlett ALLAN [id number] Performed for [facility] [address] [place], [place] [address] Basophilic stippling LM Ql (Bld) Normal NONE SEEN [facility] Comment on above: Performed By: #### 5 7022-6 #### [facility] [address] [place] [address] Senior Java Web Developer - Scarlett ALLAN [id number] Performed for [facility] [address] [place], [place] [address] Basophils (Bld) [#/Vol] 0.0 10*3/uL Normal 0.0-0.7 [facility] Comment on above: Performed By: #### 5 7022-6 #### [facility] [address] [place] [address] Senior Java Web Developer - Scarlett ALLAN [id number] Performed for [facility] [address] [place], [place] [address] Basophils/100 WBC (Bld) 0 % Normal 0-2 [facility] Comment on above: Performed By: #### 5 7022-6 #### [facility] [address] [place], [place] [address] Senior Java Web Developer - Scarlett ALLAN [id number] Performed for [facility] [address] [place], [place] [address] Blasts/100 WBC (Bld) Normal <=1 [facility] Comment on above: Performed By: #### 5 7022-6 #### [facility] [address] [place] [address] Senior Java Web Developer - Scarlett ALLAN [id number] Performed for [facility] [address] [place], [place] [address] Tabor cells LM Ql (Bld) Normal NONE SEEN [facility] Comment on above: Performed By: #### 5 7022-6 #### [facility] [address] [place] [address] Senior Java Web Developer - Scarlett ALLAN [id number] Performed for [facility] [address] [place], [place] [address] [place] rings LM Ql (Bld) Normal NONE SEEN [facility] Comment on above: Performed By: #### 5 7022-6 #### [facility] [address] [place] [address] Senior Java Web Developer - Scarlett ALLAN [id number] Performed for [facility] [address] [place], [place] [address] Dacrocytes LM Ql (Bld) Normal NONE SEEN [facility] Comment on above: Performed By: #### 5 7022-6 #### [facility] [address] [place], [place] [address] Senior Java Web Developer - Scarlett ALLAN [id number] Performed for [facility] [address] [place], [place] [address] Dohle body LM Ql (Bld) Normal NONE SEEN [facility] Comment on above: Performed By: #### 5 7022-6 #### [facility] [address] [place], [place] [address] Senior Java Web Developer - Scarlett ALLAN [id number] Performed for [facility] [address] [place], [place] [address] Eosinophils (Bld) [#/Vol] 0.0 10*3/uL Normal 0.0-0.7 [facility] Comment on above: Performed By: #### 5 7022-6 #### [facility] [address] [place], [place] [address] Senior Java Web Developer - Scarlett ALLAN [id number] Performed for [facility] [address] [place], [place] [address] Eosinophils/100 WBC (Bld) 0 % Normal 0-10 [facility] Comment on above: Performed By: #### 5 7022-6 #### [facility] [address] [place], [place] [address] Senior Java Web Developer - Scarlett ALLAN [id number] Performed for [facility] [address] [place], [place] [address] Erythrocyte distribution width (RBC) [Entitic vol] 40.1 fL Normal 36.4-46.3 [facility] Comment on above: Performed By: #### 5 7022-6 #### [facility] [address] [place], [place] [address] Senior Java Web Developer - Scarlett ALLAN [id number] Performed for [facility] [address] [place], [place] [address] Giant platelets LM Ql (Bld) Normal NONE SEEN [facility] Comment on above: Performed By: #### 5 7022-6 #### [facility] [address] [place], [place] [address] Senior Java Web Developer - Scarlett ALLAN [id number] Performed for [facility] [address] [place], [place] [address] HDIFF MANUAL DIFFERENTIAL Normal [facility] Comment on above: Performed By: #### 5 7022-6 #### [facility] [address] [place], [place] [address] Senior Java Web Developer - Scarlett ALLAN [id number] Performed for [facility] [address] [place], [place] [address] Richard bodies Ql (Bld) Normal NONE SEEN [facility] Comment on above: Performed By: #### 5 7022-6 #### [facility] [address] [place] [address] Senior Java Web Developer - Scarlett ALLAN [id number] Performed for [facility] [address] [place] [address] Hematocrit (Bld) [Volume fraction] 33.6 % Low 37.0-47.0 [facility] Comment on above: Performed By: #### 5 7022-6 #### [facility] [address] [place] [address] Senior Java Web Developer - Scarlett ALLAN [id number] Performed for [facility] [address] [place] [address] Hemoglobin (Bld) [Mass/Vol] 11.6 g/dL Low 12.0-16.0 [facility] Comment on above: Performed By: #### 5 7022-6 #### [facility] [address] [place] [address] Senior Java Web Developer - Scarlett ALLAN [id number] Performed for [facility] [address] [place] [address] Bee-Olimpo bodies LM Ql (Bld) Normal NONE SEEN [facility] Comment on above: Performed By: #### 5 7022-6 #### [facility] [address] [place] [address] Senior Java Web Developer - Scarlett ALLAN [id number] Performed for [facility] [address] [place], [place] [address] HSCAN RBC MORPHOLOGY SCAN Normal [facility] Comment on above: Performed By: #### 5 7022-6 #### [facility] [address] [place] [address] Senior Java Web Developer - Scarlett ALLAN [id number] Performed for [facility] [address] [place] [address] Hypochromia Ql (Bld) Normal NONE SEEN [facility] Comment on above: Performed By: #### 5 7022-6 #### [facility] [address] [place] [address] Senior Java Web Developer - Scarlett ALLAN [id number] Performed for [facility] [address] [place], [place] [address] Immature granulocytes (Bld) [#/Vol] 0.00 10*3/uL Normal <=0.10 [facility] Comment on above: Performed By: #### 5 7022-6 #### [facility] [address] [place], [place] [address] Senior Java Web Developer - Scarlett ALLAN [id number] Performed for [facility] [address] [place], [place] [address] Leukocyte toxic vacuoles LM Ql (Bld) Normal NONE SEEN [facility] Comment on above: Performed By: #### 5 7022-6 #### [facility] [address] [place], [place] [address] Senior Java Web Developer - Scarlett ALLAN [id number] Performed for [facility] [address] [place], [place] [address] Lymphocytes (Bld) [#/Vol] 1.1 10*3/uL Low 1.2-3.4 [facility] Comment on above: Performed By: #### 5 7022-6 #### [facility] [address] [place], [place] [address] Senior Java Web Developer - Scarlett ALLAN [id number] Performed for [facility] [address] [place], [place] [address] Lymphocytes/100 WBC (Bld) 16 % Low 20-40 [facility] Comment on above: Performed By: #### 5 7022-6 #### [facility] [address] [place], [place] [address] Senior Java Web Developer - Scarlett ALLAN [id number] Performed for [facility] [address] [place], [place] [address] Macrocytes Ql (Bld) Normal NONE SEEN [facility] Comment on above: Performed By: #### 5 7022-6 #### [facility] [address] [place], [place] [address] Senior Java Web Developer - Scarlett ALLAN [id number] Performed for [facility] [address] [place], [place] [address] MCH (RBC) [Entitic mass] 30.4 pg Normal 27.0-31.0 [facility] Comment on above: Performed By: #### 5 7022-6 #### [facility] [address] [place] [address] Senior Java Web Developer - Scarlett ALLAN [id number] Performed for [facility] [address] [place], [place] [address] MCHC (RBC) [Mass/Vol] 34.5 g/dL Normal 32.0-36.0 [facility] Comment on above: Performed By: #### 5 7022-6 #### [facility] [address] [place] [address] Senior Java Web Developer - Scarlett ALLAN [id number] Performed for [facility] [address] [place], [place] [address] MCV (RBC) [Entitic vol] 88.0 fL Normal 80.0-100.0 [facility] Comment on above: Performed By: #### 5 7022-6 #### [facility] [address] [place] [address] Senior Java Web Developer - Scarlett ALLAN [id number] Performed for [facility] [address] [place], [place] [address] Metamyelocytes/100 WBC (Bld) 0 % Normal <=1 [facility] Comment on above: Performed By: #### 5 7022-6 #### [facility] [address] [place] [address] Senior Java Web Developer - Scarlett ALLAN [id number] Performed for [facility] [address] [place], [place] [address] Microcytes Ql (Bld) Normal NONE SEEN [facility] Comment on above: Performed By: #### 5 7022-6 #### [facility] [address] [place] [address] Senior Java Web Developer - Scarlett ALLAN [id number] Performed for [facility] [address] [place], [place] [address] Monocytes (Bld) [#/Vol] 0.2 10*3/uL Normal 0.1-0.6 [facility] Comment on above: Performed By: #### 5 7022-6 #### [facility] [address] [place], [place] [address] Senior Java Web Developer - Scarlett ALLAN [id number] Performed for [facility] [address] [place], [place] [address] Monocytes/100 WBC (Bld) 3 % Normal 0-8 [facility] Comment on above: Performed By: #### 5 7022-6 #### [facility] [address] [place], [place] [address] Senior Java Web Developer - Scarlett RUVALCABAIA [id number] Performed for [facility] [address] [place], [place] [address] Myelocytes/100 WBC (Bld) 0 % Normal [facility] Comment on above: Performed By: #### 5 7022-6 #### [facility] [address] [place] [address] Senior Java Web Developer - Scarlett ALLAN [id number] Performed for [facility] [address] [place], [place] [address] Neutrophils (Bld) [#/Vol] 5.5 10*3/uL Normal 1.4-6.5 [facility] Comment on above: Performed By: #### 5 7022-6 #### [facility] [address] [place] [address] Senior Java Web Developer - Scarlett ALLAN [id number] Performed for [facility] [address] [place], [place] [address] Neutrophils.vacuolated+S egmented Ql (Bld) Normal NONE SEEN [facility] Comment on above: Performed By: #### 5 7022-6 #### [facility] [address] [place], [place] [address] Senior Java Web Developer - Scarlett ALLAN [id number] Performed for [facility] [address] [place], [place] [address] Nucleated RBC/100 WBC (Bld) [Ratio] Normal <=5 [facility] Comment on above: Performed By: #### 5 7022-6 #### [facility] [address] [place] [address] Senior Java Web Developer - Scarlett ALLAN [id number] Performed for [facility] [address] [place], [place] [address] Ovalocytes LM Ql (Bld) Normal NONE SEEN [facility] Comment on above: Performed By: #### 5 7022-6 #### [facility] [address] [place], [place] [address] Senior Java Web Developer - Scarlett ALLAN [id number] Performed for [facility] [address] [place], [place] [address] Pappenheimer bodies LM Ql (Bld) Normal NONE SEEN [facility] Comment on above: Performed By: #### 5 7022-6 #### [facility] [address] [place], [place] [address] Senior Java Web Developer - Scarlett ALLAN [id number] Performed for [facility] [address] [place], [place] [address] Plasma cells LM Ql (Bld) Normal NONE SEEN [facility] Comment on above: Performed By: #### 5 7022-6 #### [facility] [address] [place], [place] [address] Senior Java Web Developer - Scarlett RUVALCABAIA [id number] Performed for [facility] [address] [place], [place] [address] Platelet clump LM Ql (Bld) Normal NONE SEEN [facility] Comment on above: Performed By: #### 5 7022-6 #### [facility] [address] [place], [place] [address] Senior Java Web Developer - Scarlett ALLAN [id number] Performed for [facility] [address] [place], [place] [address] Platelet mean volume (Bld) [Entitic vol] 10.1 fL Normal 9.0-13.0 [facility] Comment on above: Performed By: #### 5 7022-6 #### [facility] [address] [place], [place] [address] Senior Java Web Developer - Scarlett RUVALCABAIA [id number] Performed for [facility] [address] [place], [place] [address] Platelet morphology finding Nom (Bld) Normal NONE SEEN [facility] Comment on above: Performed By: #### 5 7022-6 #### [facility] [address] [place] [address] Senior Java Web Developer - Scarlett ALLAN [id number] Performed for [facility] [address] [place], [place] [address] Platelets (Bld) [#/Vol] 139 10*3/uL Normal 130-400 [facility] Comment on above: Performed By: #### 5 7022-6 #### [facility] [address] [place] [address] Senior Java Web Developer - Scarlett ALLAN [id number] Performed for [facility] [address] [place], [place] [address] Polychromasia LM Ql (Bld) Normal NONE SEEN [facility] Comment on above: Performed By: #### 5 7022-6 #### [facility] [address] [place] [address] Senior Java Web Developer - Scarlett ALLAN [id number] Performed for [facility] [address] [place], [place] [address] Promyelocytes/100 WBC (Bld) 0 % Normal [facility] Comment on above: Performed By: #### 5 7022-6 #### [facility] [address] [place] [address] Senior Java Web Developer - Scarlett ALLAN [id number] Performed for [facility] [address] [place], [place] [address] RBC (Bld) [#/Vol] 3.82 10*6/uL Low 4.00-6.30 [facility] Comment on above: Performed By: #### 5 7022-6 #### [facility] [address] [place] [address] Senior Java Web Developer - Scarlett ALLAN [id number] Performed for [facility] [address] [place], [place] [address] Rouleaux LM Ql (Bld) Normal NONE SEEN [facility] Comment on above: Performed By: #### 5 7022-6 #### [facility] [address] [place], [place] [address] Senior Java Web Developer - Scarlett ALLAN [id number] Performed for [facility] [address] [place], [place] [address] Schistocytes LM Ql (Bld) Normal NONE SEEN [facility] Comment on above: Performed By: #### 5 7022-6 #### [facility] [address] [place], [place] [address] Senior Java Web Developer - Scarlett RUVALCABAIA [id number] Performed for [facility] [address] [place], [place] [address] Segmented neutrophils/100 WBC (Bld) 80 % High 50-70 [facility] Comment on above: Performed By: #### 5 7022-6 #### [facility] [facility] [address] [place], [place] [address] Senior Java Web Developer - Scarlett ALLAN [id number] Performed for [facility] [address] [place], [place] [address] Sickle cells LM Ql (Bld) Normal NONE SEEN [facility] Comment on above: Performed By: #### 5 7022-6 #### [facility] [address] [place], [place] [address] Senior Java Web Developer - Scarlett RUVALCABAIA [id number] Performed for [facility] [address] [place], [place] [address] Smudge cells LM Ql (Bld) Normal NONE SEEN [facility] Comment on above: Performed By: #### 5 7022-6 #### [facility] [address] [place], [place] [address] Senior Java Web Developer - Scarlett RUVALCABAIA [id number] Performed for [facility] [address] [place], [place] [address] Spherocytes LM Ql (Bld) Normal NONE SEEN [facility] Comment on above: Performed By: #### 5 7022-6 #### [facility] [address] [place], [place] [address] Senior Java Web Developer - Scarlett ALLAN [id number] Performed for [facility] [address] [place], [place] [address] Stomatocytes LM Ql (Bld) Normal NONE SEEN [facility] Comment on above: Performed By: #### 5 7022-6 #### [facility] [address] [place] [address] Senior Java Web Developer - Scarlett ALLAN [id number] Performed for [facility] [address] [place], [place] [address] Target cells LM Ql (Bld) Normal NONE SEEN [facility] Comment on above: Performed By: #### 5 7022-6 #### [facility] [address] [place] [address] Senior Java Web Developer - Scarlett ALLAN [id number] Performed for [facility] [address] [place] [address] Toxic granules LM Ql (Bld) Normal NONE SEEN [facility] Comment on above: Performed By: #### 5 7022-6 #### [place] [address] [place] [address] Senior Java Web Developer - Scarlett ALLAN [id number] Performed for [facility] [address] [place], [place] [address] Variant lymphocytes Auto Ql (Bld) Normal NONE SEEN [facility] Comment on above: Performed By: #### 5 7022-6 #### [facility] [address] [place] [address] Senior Java Web Developer - Scarlett ALLAN [id number] Performed for [facility] [address] [place], [place] [address] WBC (Bld) [#/Vol] 6.83 10*3/uL Normal 4.80-10.80 [facility] Comment on above: Performed By: #### 5 7022-6 #### [facility] [address] [place] [address] Senior Java Web Developer - Scarlett ALLAN [id number] Performed for [facility] [address] [place], [place] [address] CBC W/Diff, Automatedon 06-0 7-5 Absolute Lymph 1.22 X10 3/uL Normal 0.83-4.51 [facility] Comment on above: Performed By: #### L 500.4050, L100.0100, L3800.0050, L501.5200, L501.2450 ####[facility] [address] [place], [address] Absolute Neut 6.9 X10 3/uL Normal 2.0-7.7 [facility] Comment on above: Performed By: #### L 500.4050, L100.0100, L3800.0050, L501.5200, L501.2450 ####[facility] [address] [place], [address] Basophils/100 WBC (Bld) 0.4 % Normal 0-1 [facility] Comment on above: Performed By: #### L 500.4050, L100.0100, L3800.0050, L501.5200, L501.2450 ####[facility] [address] [place], [address] Eosinophils/100 WBC (Bld) 0.2 % Normal 0-5 [facility] Comment on above: Performed By: #### L 500.4050, L100.0100, L3800.0050, L501.5200, L501.2450 ####[facility] [address] [place], [address] IG% 0.700 Normal 0.0-0.9 [facility] Comment on above: Result Comment: IG% - Immature Granulocytes (promyelocytes, myelocytes andmetamyelocytes) > 1% indicates that a LEFT SHIFT is Present. Performed By: #### L 500.4050, L100.0100, L3800.0050, L501.5200, L501.2450 ####[facility] [address] [place], [address] Lymphocytes/100 WBC (Bld) 13.6 % Low 19-41 [facility] Comment on above: Performed By: #### L 500.4050, L100.0100, L3800.0050, L501.5200, L501.2450 ####[facility] [address] [place], [address] Monocytes/100 WBC (Bld) 8.2 % Normal 0-10 [facility] Comment on above: Performed By: #### L 500.4050, L100.0100, L3800.0050, L501.5200, L501.2450 ####[facility] [address] [place], [address] Neutrophils/100 WBC (Bld) 76.9 % High 47-70 [facility] Comment on above: Performed By: #### L 500.4050, L100.0100, L3800.0050, L501.5200, L501.2450 ####[facility] [address] [place], [address] CT ABDOMEN AND PELVIS WITH C ONTRASTon 11-14-2024 CT ABDOMEN AND PELVIS WITH CONTRAST EXAMINATION: CT ABDOMEN AND PELVIS WITH CONTRAST, 11/14/2024 2:03 AM EDT HISTORY: Abdominal pain COMPARISON: None. TECHNIQUE: CT scan of the abdomen and pelvis was performed with IV contrast. CT dose reduction technique was used, including Automated Exposure Control. FINDINGS: LOWER CHEST: Mild strandy dependent atelectasis of the lower lobes. ABDOMEN: Liver: Normal. Bile Ducts: No intrahepatic biliary duct dilatation. Small amount of left hepatic lobe pneumobilia. Common bile duct stent in place. Gallbladder: Recent cholecystectomy. Surgical drain in place. No fluid collection in the gallbladder fossa identified. Pancreas: Normal. Spleen: Normal. Adrenals: Normal. Kidneys: Symmetric enhancement without hydronephrosis. PELVIS: Reproductive Organs: No pelvic masses. Ureters: Normal caliber. Bladder: Normal. OTHER ABDOMEN AND PELVIS: Bowel: Postsurgical changes seen near the proximal colon. Nonvisualization of the appendix. Mild distention of the proximal colon with stool and gas. No bowel obstruction. Peritoneum: Small amount of free fluid in the pelvis. Vessels: Normal. Lymph Nodes: No enlarged lymph nodes. Abdominal Wall: Normal. Bones: No destructive lesions. IMPRESSION: 1. Recent cholecystectomy with surgical drain in place. No abscess identified. Common bile duct stent in place. No biliary duct dilatation. 2. Postsurgical changes of the proximal colon. Mild gaseous distention of the proximal colon with mild stool. No evidence of bowel obstruction. 3. No obstructive uropathy. Normal [facility] Comprehensive Metabolic Prof ilon 11-14-2024 Albumin [Mass/Vol] 3.6 g/dL Normal 3.5-5.0 [facility] Comment on above: Performed By: #### L 500.4050, L100.0100, L3800.0050, L501.5200, L501.2450 ####[facility] [address] [place], [address] Albumin/Globulin [Mass ratio] 1.3 {ratio} Normal 0.9-2.4 [facility] Comment on above: Performed By: #### L 500.4050, L100.0100, L3800.0050, L501.5200, L501.2450 ####[facility] [address] [place], [address] ALK PHOS 119 U/L High 35-104 [facility] Comment on above: Performed By: #### L 500.4050, L100.0100, L3800.0050, L501.5200, L501.2450 ####[facility] [address] [place], [address] ALT [Catalytic activity/Vol] 211 U/L High <=34 [facility] Comment on above: Performed By: #### L 500.4050, L100.0100, L3800.0050, L501.5200, L501.2450 ####[facility] [address] [place], [address] AST [Catalytic activity/Vol] 134 U/L High <=31 [facility] Comment on above: Performed By: #### L 500.4050, L100.0100, L3800.0050, L501.5200, L501.2450 ####[facility] [address] [place], [address] Bilirubin [Mass/Vol] 0.91 mg/dL Normal 0.00-1.30 [facility] Comment on above: Performed By: #### L 500.4050, L100.0100, L3800.0050, L501.5200, L501.2450 ####[facility] [address] [place], [address] BUN/CRE 11.1 RATIO Normal 10-20 [facility] Comment on above: Performed By: #### L 500.4050, L100.0100, L3800.0050, L501.5200, L501.2450 ####[facility] [address] [place], [address] Calcium [Mass/Vol] 8.2 mg/dL Normal 7.6-11.0 [facility] Comment on above: Performed By: #### L 500.4050, L100.0100, L3800.0050, L501.5200, L501.2450 ####[facility] [address] [place], [address] Chloride [Moles/Vol] 105 mmol/L Normal 98-108 [facility] Comment on above: Performed By: #### L 500.4050, L100.0100, L3800.0050, L501.5200, L501.2450 ####[facility] [address] [place], [address] CO2 [Moles/Vol] 21.8 mmol/L Normal 21.0-32.0 [facility] Comment on above: Performed By: #### L 500.4050, L100.0100, L3800.0050, L501.5200, L501.2450 ####[facility] [address] [place], [address] Creatinine [Mass/Vol] 0.75 mg/dL Normal 0.70-1.20 [facility] Comment on above: Performed By: #### L 500.4050, L100.0100, L3800.0050, L501.5200, L501.2450 ####[facility] [address] [place], [address] ECRCL 134.36 ml/min Normal 50-250 [facility] Comment on above: Performed By: #### L 500.4050, L100.0100, L3800.0050, L501.5200, L501.2450 ####[facility] [address] [place], [address] GAP 12 Normal 5-15 [facility] Comment on above: Performed By: #### L 500.4050, L100.0100, L3800.0050, L501.5200, L501.2450 ####[facility] [address] [place], [address] GFR/1.73 sq M.predicted among non-blacks MDRD (S/P/Bld) [Vol rate/Area] 113 mL/min/{1.73_m2} Normal >60 [facility] Comment on above: Result Comment: mL/m in/1.73m2 CKD-EPI Creatinine Equation (2020) Performed By: #### L 500.4050, L100.0100, L3800.0050, L501.5200, L501.2450 ####[facility] [address] [place], [address] Globulin (S) [Mass/Vol] 2.7 g/dL Normal 2.2-4.2 [facility] Comment on above: Performed By: #### L 500.4050, L100.0100, L3800.0050, L501.5200, L501.2450 ####[facility] [address] [place], [address] Glucose [Mass/Vol] 102 mg/dL High 70-99 [facility] Comment on above: Performed By: #### L 500.4050, L100.0100, L3800.0050, L501.5200, L501.2450 ####[facility] [address] [place], [address] Potassium [Moles/Vol] 3.4 mmol/L Normal 3.3-5.1 [facility] Comment on above: Performed By: #### L 500.4050, L100.0100, L3800.0050, L501.5200, L501.2450 ####[facility] [address] [place], [address] Sodium [Moles/Vol] 138 mmol/L Normal 133-145 [facility] Comment on above: Performed By: #### L 500.4050, L100.0100, L3800.0050, L501.5200, L501.2450 ####[facility] [address] [place], [address] T PROT 6.3 g/dL Normal 5.9-8.4 [facility] Comment on above: Performed By: #### L 500.4050, L100.0100, L3800.0050, L501.5200, L501.2450 ####[facility] [address] [place], [address] Urea nitrogen [Mass/Vol] 8 mg/dL Normal 4-19 [facility] Comment on above: Performed By: #### L 500.4050, L100.0100, L3800.0050, L501.5200, L501.2450 ####[facility] [address] [place], [address] Comprehensive metabolic 2000 panelon 11-14-2024 Albumin [Mass/Vol] 3.1 g/dL Low 3.4-5.0 [facility] Comment on above: Performed By: #### 2 432-8, , LIPASE #### [facility] [address] [place] [address] Senior Java Web Developer - Scarlett Lopez CLIA [id number] ALP [Catalytic activity/Vol] 119 U/L Normal 50-136 [facility] Comment on above: Performed By: #### 2 432-8, , LIPASE #### [facility] [address] [place] [address] Senior Java Web Developer - cSarlett Lopez CLIA [id number] ALT [Catalytic activity/Vol] 306 U/L High 14-59 [facility] Comment on above: Performed By: #### 2 4322-8, , LIPASE #### [facility] [address] [place] [address] Senior Java Web Developer - Scarlett Lopez CLIA [id number] Anion gap [Moles/Vol] 8.0 mmol/L Normal <=15.0 [facility] Comment on above: Performed By: #### 2 4322-8, , LIPASE #### [facility] [address] [place] [address] Senior Java Web Developer - Scarlett Lopez CLIA [id number] Bilirubin [Mass/Vol] 1.0 mg/dL Normal 0.2-1.0 [facility] Comment on above: Performed By: #### 2 4322-8, , LIPASE #### [facility] [address] [place] [address] Senior Java Web Developer - Scarlett Lopez CLIA [id number] Calcium [Mass/Vol] 8.8 mg/dL Normal 8.5-10.1 [facility] Comment on above: Performed By: #### 2 4322-8, , LIPASE #### [facility] [address] [place] [address] Senior Java Web Developer - Scarlett Lopez CLIA [id number] Chloride [Moles/Vol] 106 mmol/L Normal 98-107 [facility] Comment on above: Performed By: #### 2 4322-8, , LIPASE #### [facility] [address] [place] [address] Senior Java Web Developer - Scarlett ALLAN [id number] CO2 [Moles/Vol] 27 mmol/L Normal 21-32 [facility] Comment on above: Performed By: #### 2 4323-8, , LIPASE #### [facility] [address] [place] [address] Senior Java Web Developer - Scarlett Lopez PEGIA [id number] Creatinine [Mass/Vol] 0.79 mg/dL Normal 0.51-0.95 [facility] Comment on above: Performed By: #### 2 4323-8, , LIPASE #### [facility] [address] [place] [address] Senior Java Web Developer - Scarlett ALLAN [id number] GFR/1.73 sq M.predicted MDRD (S/P/Bld) [Vol rate/Area] mL/min/{1.73_m2} Normal >=60 [facility] Comment on above: Performed By: #### 2 4323-8, , LIPASE #### [facility] [address] [place] [address] Senior Java Web Developer - Scarlett Lopezlucian ALLAN [id number] Glucose [Mass/Vol] 115 mg/dL High 74-106 [facility] Comment on above: Performed By: #### 2 4323-8, , LIPASE #### [facility] [address] [place] [address] Senior Java Web Developer - Scarlett Simpsonrell SANJANA [id number] HGFR GLOMERULAR FILTRATIO N RATE INTERPRETATION~The eGFR [...] months, with or without kidney damage.~ Normal [facility] Comment on above: Performed By: #### 2 4323-8, , LIPASE #### [facility] [address] [place] [address] Senior Java Web Developer [facility] CLIA [id number] Potassium [Moles/Vol] 3.0 mmol/L Low 3.5-5.1 [facility] Comment on above: Performed By: #### 2 432-8, , LIPASE #### [facility] [address] [place] [address] Senior Java Web Developer - [facility] CLIA [id number] Protein [Mass/Vol] 6.4 g/dL Normal 6.4-8.2 [facility] Comment on above: Performed By: #### 2 432-8, , LIPASE #### [facility] [address] [place] [address] Senior Java Web Developer - [facility] CLIA [id number] Sodium [Moles/Vol] 141 mmol/L Normal 136-145 [facility] Comment on above: Performed By: #### 2 4322-8, , LIPASE #### [facility] [address] [place] [address] Senior Java Web Developer - [facility] CLIA [id number] Urea nitrogen [Mass/Vol] 10 mg/dL Normal 7-17 [facility] Comment on above: Performed By: #### 2 4323-8, , LIPASE #### [facility] [address] [place] [address] Senior Java Web Developer - [facility] CLIA [id number] Albumin [Mass/Vol] 3.6 g/dL Normal 3.4-5.0 [facility] Comment on above: Performed By: #### 2 4322-8, LIPASE #### [facility] [address] [place] [address] Senior Java Web Developer - Scarlett Lopez CLIA [id number] ALP [Catalytic activity/Vol] 132 U/L Normal 50-136 [facility] Comment on above: Performed By: #### 2 4323-8, LIPASE #### [facility] [address] [place] [address] Senior Java Web Developer - Scarlett Lopez CLIA [id number] ALT [Catalytic activity/Vol] 384 U/L High 14-59 [facility] Comment on above: Performed By: #### 2 4323-8, LIPASE #### [facility] [address] [place] [address] Senior Java Web Developer - Scarlett Lopez CLIA [id number] Anion gap [Moles/Vol] 9.0 mmol/L Normal <=15.0 [facility] Comment on above: Performed By: #### 2 4323-8, LIPASE #### [facility] [address] [place] [address] Senior Java Web Developer - Scarlett Simpsonrell CLIA [id number] Bilirubin [Mass/Vol] 0.9 mg/dL Normal 0.2-1.0 [facility] Comment on above: Performed By: #### 2 4323-8, LIPASE #### [facility] [address] [place] [address] Senior Java Web Developer - Scarlett Lopez CLIA [id number] Calcium [Mass/Vol] 9.6 mg/dL Normal 8.5-10.1 [facility] Comment on above: Performed By: #### 2 4323-8, LIPASE #### [facility] [address] [place] [address] Senior Java Web Developer - Scarlett Simpsonrell CLIA [id number] Chloride [Moles/Vol] 106 mmol/L Normal 98-107 [facility] Comment on above: Performed By: #### 2 4323-8, LIPASE #### [facility] [address] [place] [address] Senior Java Web Developer - Scarlett Simpsonrell CLIA [id number] CO2 [Moles/Vol] 25 mmol/L Normal 21-32 [facility] Comment on above: Performed By: #### 2 4323-8, LIPASE #### [facility] [address] [place] [address] Senior Java Web Developer - [facility] [place] [id number] Creatinine [Mass/Vol] 0.70 mg/dL Normal 0.51-0.95 [facility] Comment on above: Performed By: #### 2 4323-8, LIPASE #### [facility] [address] [place] [address] Senior Java Web Developer - [facility] [place] [id number] GFR/1.73 sq M.predicted MDRD (S/P/Bld) [Vol rate/Area] mL/min/{1.73_m2} Normal >=60 [facility] Comment on above: Performed By: #### 2 4323-8, LIPASE #### [facility] [address] [facility] [place] [address] Senior Java Web Developer - [facility] [place] [id number] Glucose [Mass/Vol] 110 mg/dL High 74-106 [facility] Comment on above: Performed By: #### 2 4323-8, LIPASE #### [facility] [address] [facility] - [facility] [place] [id number] HGFR GLOMERULAR FILTRATIO N RATE INTERPRETATION~The eGFR [...] months, with or without kidney damage.~ Normal [facility] Comment on above: Performed By: #### 2 4323-8, LIPASE #### [facility] [address] [place] [address] Senior Java Web Developer - Scarlett Lopez CLIA [id number] Potassium [Moles/Vol] 3.5 mmol/L Normal 3.5-5.1 [facility] Comment on above: Performed By: #### 2 4323-8, LIPASE #### [facility] [address] [place] [address] Senior Java Web Developer - Scarlett Lopez CLIA [id number] Protein [Mass/Vol] 7.3 g/dL Normal 6.4-8.2 [facility] Comment on above: Performed By: #### 2 4323-8, LIPASE #### [facility] [address] [place] [address] Senior Java Web Developer - Scarlett Lopez CLIA [id number] Sodium [Moles/Vol] 140 mmol/L Normal 136-145 [facility] Comment on above: Performed By: #### 2 4323-8, LIPASE #### [facility] [address] [place] [address] Senior Java Web Developer - Scarlett Lopez CLIA [id number] Urea nitrogen [Mass/Vol] 10 mg/dL Normal 7-17 [facility] Comment on above: Performed By: #### 2 4323-8, LIPASE #### [facility] [address] [place] [address] Senior Java Web Developer - Scarlett Lopez CLIA [id number] Erythrocyte morphology asses smentOrdered By: Ld Chacon on 11-14-2024 RBC morphology finding Nom (Bld) NORM C+C NORMAL NORM [facility] Gram stainOrdered By: Julia Chacon on 11-14-2024 Microscopic observation Gram stain Nom (Unsp spec) [facility] H AND P Exam - [facility] 11-14-2024 H&P Exam - Hospitalist Normal [facility] LACTATEon 11-14-2024 Lactate [Moles/Vol] 2.1 mmol/L High 0.4-2.0 [facility] Comment on above: Performed By: #### 2 4323-8, 11403-6, LIPASE #### [facility] [address] [place] [address] Senior Java Web Developer [facility] [id number] Lactate [Moles/Vol] 2.3 mmol/L High 0.4-2.0 [facility] Comment on above: Performed By: #### 2 524-7 #### [facility] [address] [place] [address] Senior Java Web Developer [facility] [id number] LIPASEon 11-14-2024 LIPASES 31 U/L Normal -[address] [place] [address] Comment on above: Performed By: #### 2 4323-8, 97621-0, LIPASE #### [facility] [address] [place] [address] Senior Java Web Developer - [facility] CLIA [id number] LIPASES 45 U/L Normal [address] [place] [address] Comment on above: Performed By: #### 2 4323-8, 33281-7, LIPASE #### [facility] [address] [place] [address] Senior Java Web Developer [facility] [id number] Lipaseon 11-14-2024 Lipase [Catalytic activity/Vol] 18 U/L Normal -[address] [place] [address] Comment on above: Result Comment: Plea note:LIPASE revised reference range effective 22.New Lipase methodology. Expected to produce lower valuesthan the previous assay method.NEW Reference Range: 13 - 75 U/L Performed By: #### L 500.4050, L100.0100, L3800.0050, L501.5200, L501.2450 ####[facility] [address] [place], [address] Lipase measurementOrdered By : Ld Chacon on 11-14-2024 Lipase [Catalytic activity/Vol] 18 U/L 13-[address] [place] [address] Comment on above: Please note:LIPASE r evised reference range effective 22. New Lipase methodology. Expected to produce lower values than the previous assay method. NEW Reference Range: 13 - 75 U/L MAGNESIUMon 11-14-2024 Magnesium [Mass/Vol] 1.1 mg/dL Low 1.6-2.6 [facility] Comment on above: Performed By: #### 2 4323-8, 73863-8, LIPASE #### [facility] [address] [place] [address] Senior Java Web Developer - Scarlett ALLAN [id number] MR/CON.PCM.GIon 11-14-2024 MR/CON.PCM.GI [facility] Magnesiumon 11-14-2024 Magnesium [Mass/Vol] 1.4 mg/dL Low 1.5-2.2 [facility] Comment on above: Performed By: #### L 500.4050, L100.0100, L3800.0050, L501.5200, L501.2450 ####[facility] [address] [place], [address] Platelet estimateOrdered By: Ld Friend on 11-14-2024 Platelets LM Ql (Bld) A ADEQ [facility] SGOT Be 11-14-2024 AST [Catalytic activity/Vol] 266 U/L High 15-37 [facility] Comment on above: Performed By: #### 1 920-8 #### [facility] [address] [place] [address] Senior Java Web Developer - Scarlett ALLAN [id number] URINALYSIS with reflex to CU LTUREon 11-14-2024 Bacteria LM Ql (Urine sed) Normal TRACE [facility] Comment on above: Performed By: #### U AR #### [facility] [address] [place] [address] Senior Java Web Developer - Scarlett ALLAN [id number] Performed for [facility] [address] [place] [address] Bilirubin (U) [Mass/Vol] Negative Normal NEGATIVE [facility] Comment on above: Performed By: #### U AR #### [facility] [address] [place] [address] Senior Java Web Developer - Scarlett ALLAN [id number] Performed for [facility] [address] [place], [place] [address] Clarity (U) CLEAR Normal CLEAR [facility] Comment on above: Performed By: #### U AR #### [facility] [address] [place], [place] [address] Senior Java Web Developer - Scarlett ALLAN [id number] Performed for [facility] [address] [place], [place] [address] Color (U) YELLOW Normal YELLOW [facility] Comment on above: Performed By: #### U AR #### [facility] [address] [place], [place] [address] Senior Java Web Developer - Scarlett ALLAN [id number] Performed for [facility] [address] [place], [place] [address] Glucose Test strip (U) [Mass/Vol] Negative Normal NEGATIVE [facility] Comment on above: Performed By: #### U AR #### [facility] [address] [place], [place] [address] Senior Java Web Developer - Scarlett ALLAN [id number] Performed for [facility] [address] [place], [place] [address] HMICRO MICROSCOPIC Normal [facility] Comment on above: Performed By: #### U AR #### [facility] [address] [place], [place] [address] Senior Java Web Developer - Scarlett ALLAN [id number] Performed for [facility] [address] [place], [place] [address] Hyaline casts (Urine sed) [#/Area] Normal 0-8 [facility] Comment on above: Performed By: #### U AR #### [facility] [address] [place], [place] [address] Senior Java Web Developer - Scarlett ALLAN [id number] Performed for [facility] [address] [place], [place] [address] Ketones (U) [Mass/Vol] Negative Normal NEGATIVE [facility] Comment on above: Performed By: #### U AR #### [facility] [address] [place], [place] [address] Senior Java Web Developer - Scarlett ALLAN [id number] Performed for [facility] [address] [place], [place] [address] Leukocyte esterase Qn (U) Negative Normal TRACE [facility] Comment on above: Performed By: #### U AR #### [facility] [address] [place], [place] [address] Senior Java Web Developer - Scarlett ALLAN [id number] Performed for [facility] [address] [place], [place] [address] Nitrite Ql (U) Negative Normal NEGATIVE [facility] Comment on above: Performed By: #### U AR #### [facility] [address] [place], [place] [address] Senior Java Web Developer - Scarlett Lopezlucian ALLAN [id number] Performed for [facility] [address] [place], [place] [address] pH (U) 7.0 [pH] Normal 5.5-7.5 [facility] Comment on above: Performed By: #### U AR #### [facility] [address] [place], [place] [address] Senior Java Web Developer [facility] SANJANA [id number] Performed for [facility] [address] [place], [place] [address] Protein (U) [Mass/Vol] Negative Normal NEGATIVE [facility] Comment on above: Performed By: #### U AR #### [facility] [address] [place], [place] [address] Senior Java Web Developer - Scarlett Lopezlucian ALLAN [id number] Performed for [facility] [address] [place], [place] [address] RBC (U) [#/Vol] Negative Normal NEGATIVE [facility] Comment on above: Performed By: #### U AR #### [facility] [address] [place], [place] [address] Senior Java Web Developer - Scarlett ALLAN [id number] Performed for [facility] [address] [place], [place] [address] RBC LM.HPF (Urine sed) [#/Area] Normal 0-4 [facility] Comment on above: Performed By: #### U AR #### [facility] [address] [place], [place] [address] Senior Java Web Developer - Scarlett ALLAN [id number] Performed for [facility] [address] [place], [place] [address] Specific gravity (U) [Rel density] 1.019 Normal 1.010-1.035 [facility] Comment on above: Performed By: #### U AR #### [facility] [address] [place] [address] Senior Java Web Developer - [facility] SANJANA [id number] Performed for [facility] [address] [place], [place] [address] SQUAMOUS EPITHELIALS Normal 0-5 [facility] Comment on above: Performed By: #### U AR #### [facility] [address] [place] [address] Senior Java Web Developer - [facility] SANJANA [id number] Performed for [facility] [address] [place], [place] [address] Urobilinogen Qn (U) 2.0 {Abbi'U}/dL High <=1.0 [facility] Comment on above: Performed By: #### U AR #### [facility] [address] [place] [address] Senior Java Web Developer - [facility]Saint [facility] DoverROMAN [id number] Performed for [facility] [address] [place], [place] [address] WBC LM.HPF (Urine sed) [#/Area] Normal 0-5 [facility] Comment on above: Performed By: #### U AR #### [facility] [address] [place], [place] [address] Senior Java Web Developer - ScarlettSaint [facility] DoverROMAN [id number] Performed for [facility] [address] [place], [place] [address] 12 Lead EKGon 11-13-2024 12 Lead EKG Normal [facility] Amylaseon 11-13-2024 CRESENCIO 36 U/L Normal 28-100 [facility] Comment on above: Performed By: #### L 501.2450, L501.2400 ####[facility] [address] [place], [place], [address] ERCP Biliary/Pancreason 06-0 ERCP Biliary/Pancreas Normal [facility] ERCP Reporton 11-13-2024 ERCP Report Normal [facility] Lipaseon 11-13-2024 Lipase [Catalytic activity/Vol] 21 U/L Normal 13-75 [facility] Comment on above: Result Comment: Nicholas sood note:LIPASE revised reference range effective 22.New Lipase methodology. Expected to produce lower valuesthan the previous assay method.NEW Reference Range: 13 - 75 U/L Performed By: #### L 501.2450, L501.2400 ####[facility] [address] [place], [place], [id number] Lipase measurementOrdered By : Ld Chacon on 11-13-2024 Lipase [Catalytic activity/Vol] 21 U/L 13-75 [facility] Comment on above: Please note:LIPASE r evised reference range effective 22. New Lipase methodology. Expected to produce lower values than the previous assay method. NEW Reference Range: 13 - 75 U/L MR/POSTOP.ANEon 11-13-2024 MR/POSTOP.ANE Normal [facility] MR/ZAUXTNHE2dl 11-13-2024 MR/POSTOPAN2 [facility] O.R. Fluoro for C-Francesco 06-0 -2024 O.R. Fluoro for C-Arm Normal [facility] ,Urineon 11-13-2024 Beta HCG ( test) Ql (U) Negative Normal [facility] Comment on above: Result Comment: Very dilute urine specimens, as indicated by a low specificgravity, may not contain chemical sales representative levels of hCG.If is still suspected, a first morning urinespecimen should be collected 48 hours later and tested. Performed By: #### L 400.7600 ####[facility] [address] [place], [place], [address] Serum or plasma amylase jeimy urement (enzymatic activity/volume)Ordered By: Ld Chacon on 11-13-2024 Amylase [Catalytic activity/Vol] 36 U/L 28-100 [facility] Special Stain Group IIon Special Stain Group II Normal [facility] Comment on above: Performed By: #### P SSII ####[facility] [address] [place], [address] Urine testOrdered By: Kenneth Buitrago on 11-13-2024 HCG ( test) Ql (U) Negative [facility] Comment on above: Very dilute urine sp ecimens, as indicated by a low specificgravity, may not contain chemical sales representative levels of hCG. If is still suspected, a first morning urinespecimen should be collected 48 hours later and tested. Surgery Visit Reporton 11-12 Surgery Visit Report Normal [facility] Gastroenterology Visit Repor ton 11-03-2024 Gastroenterology Visit Report Normal [facility] Surgery Visit Reporton 11-03 Surgery Visit Report Normal [facility] Hepatobilliary Imagingon Hepatobilliary Imaging Normal [facility] Surgery Visit Reporton 10-28 Surgery Visit Report Normal [facility] Urine Cultureon 10-25-2024 URC Normal [facility] Comment on above: Performed By: #### M 100.2204 ####[facility] [address] [place], [address] Absolute lymphocyte countOrd ered By: Aquilino Collins on 10-23-2024 Lymphocytes Auto (Unsp spec) [#/Vol] 3.48 10*3/uL 0.83-4.51 [facility] Absolute neutrophil countOrd ered By: Aquilino Collins on 10-23-2024 Neutrophils (Bld) [#/Vol] 6.6 10*3/uL 2.0-7.7 [facility] Anion gap in Serum or Plasma Ordered By: Wendy Santana on 10-23-2024 Anion gap [Moles/Vol] 11 mmol/L 5-15 [facility] Automated lymphocyte count a s percentage of total leukocytesOrdered By: Aquilino Collins on 10-23-2024 Lymphocytes/100 WBC Auto (Unsp spec) 30.5 % 19-41 [facility] BUN/creatinine ratioOrdered By: Wendy Santana on 10-23-2024 Urea nitrogen/Creatinine [Mass ratio] 17.3 mg/mg 10-20 [facility] Basophil percentageOrdered B y: Aquilino Collins on 10-23-2024 Basophils/100 WBC (Bld) 0.4 % 0-1 [facility] Bilirubin, totalOrdered By: Wendy Santana on 10-23-2024 Bilirubin [Mass/Vol] 0.21 mg/dL 0.00-1.30 [facility] CBC W/Diff, Automatedon 10-08 Absolute Lymph 3.48 X10 3/uL Normal 0.83-4.51 [facility] Comment on above: Performed By: #### L 100.0100 ####[facility] [address] [place], [address] Absolute Neut 6.6 X10 3/uL Normal 2.0-7.7 [facility] Comment on above: Performed By: #### L 100.0100 ####[facility] [address] [place], [address] Basophils/100 WBC (Bld) 0.4 % Normal 0-1 [facility] Comment on above: Performed By: #### L 100.0100 ####[facility] [address] [place], [address] Eosinophils/100 WBC (Bld) 5.8 % High 0-5 [facility] Comment on above: Performed By: #### L 100.0100 ####[facility] [address] [place], [address] Erythrocyte distribution width (RBC) [Ratio] 11.9 % Normal 11.6-14.6 [facility] Comment on above: Performed By: #### L 100.0100 ####[facility] [address] [place], [address] Hematocrit (Bld) [Volume fraction] 32.9 % Low 37-47 [facility] Comment on above: Performed By: #### L 100.0100 ####[facility] [address] [place], [address] Hemoglobin (Bld) [Mass/Vol] 11.1 g/dL Low 12.0-15.0 [facility] Comment on above: Performed By: #### L 100.0100 ####[facility] [address] [place], [address] IG% 1.000 High 0.0-0.9 [facility] Comment on above: Result Comment: IG% - Immature Granulocytes (promyelocytes, myelocytes andmetamyelocytes) > 1% indicates that a LEFT SHIFT is Present. Performed By: #### L 100.0100 ####[facility] [address] [place], [address] Lymphocytes/100 WBC (Bld) 30.5 % Normal 19-41 [facility] Comment on above: Performed By: #### L 100.0100 ####[facility] [address] [place], [address] MCH (RBC) [Entitic mass] 30.5 pg Normal 27.0-32.0 [facility] Comment on above: Performed By: #### L 100.0100 ####[facility] [address] [place], [address] MCHC (RBC) [Mass/Vol] 33.7 g/dL Normal 32-36 [facility] Comment on above: Performed By: #### L 100.0100 ####[facility] [address] [place], [address] MCV (RBC) [Entitic vol] 90.4 fL Normal 81-99 [facility] Comment on above: Performed By: #### L 100.0100 ####[facility] [address] [place], [address] Monocytes/100 WBC (Bld) 4.4 % Normal 0-10 [facility] Comment on above: Performed By: #### L 100.0100 ####[facility] [address] [place], [address] Neutrophils/100 WBC (Bld) 57.9 % Normal 47-70 [facility] Comment on above: Performed By: #### L 100.0100 ####[facility] [address] [place], [address] Nucleated RBC (Bld) [#/Vol] 0 10*3/uL Normal 0-5 [facility] Comment on above: Performed By: #### L 100.0100 ####[facility] [address] [place], [address] Platelet mean volume (Bld) [Entitic vol] 9.9 fL Normal 6.2-12.0 [facility] Comment on above: Performed By: #### L 100.0100 ####[facility] [address] [place], [address] Platelets (Bld) [#/Vol] 271 10*3/uL Normal 150-450 [facility] Comment on above: Performed By: #### L 100.0100 ####[facility] [address] [place], [address] RBC (Bld) [#/Vol] 3.64 10*6/uL Low 4.2-5.4 [facility] Comment on above: Performed By: #### L 100.0100 ####[facility] [address] [place], [address] RDW SD 39.5 fl Normal 35.1-43.9 [facility] Comment on above: Performed By: #### L 100.0100 ####[facility] [address] [place], [address] WBC (Bld) [#/Vol] 11.4 10*3/uL High 4.4-11.0 [facility] Comment on above: Performed By: #### L 100.0100 ####[facility] [address] [place], [address] Carbon dioxide, total [Moles /volume] in Central venous bloodOrdered By: Wendy Santana on 10-23-2024 CO2 [Moles/Vol] 24.3 mmol/L 21.0-32.0 [facility] Chloride assayOrdered By: Zia Santana on 10-23-2024 Chloride [Moles/Vol] 107 mmol/L 98-108 [facility] Comprehensive Metabolic Prof ilon 10-23-2024 Albumin [Mass/Vol] 3.0 g/dL Low 3.5-5.0 [facility] Comment on above: Performed By: #### L 500.4050 ####[facility] [address] [place], [address] Albumin/Globulin [Mass ratio] 1.0 {ratio} Normal 0.9-2.4 [facility] Comment on above: Performed By: #### L 500.4050 ####[facility] [address] [place], [address] ALK PHOS 75 U/L Normal 35-104 [facility] Comment on above: Performed By: #### L 500.4050 ####[facility] [address] [place], [address] ALT [Catalytic activity/Vol] 10 U/L Normal <=34 [facility] Comment on above: Performed By: #### L 500.4050 ####[facility] [address] [place], [address] AST [Catalytic activity/Vol] 11 U/L Normal <=31 [facility] Comment on above: Performed By: #### L 500.4050 ####[facility] [address] [place], [address] Bilirubin [Mass/Vol] 0.21 mg/dL Normal 0.00-1.30 [facility] Comment on above: Performed By: #### L 500.4050 ####[facility] [address] [place], [address] BUN/CRE 17.3 RATIO Normal 10-20 [facility] Comment on above: Performed By: #### L 500.4050 ####[facility] [address] [place], [address] Calcium [Mass/Vol] 8.6 mg/dL Normal 7.6-11.0 [facility] Comment on above: Performed By: #### L 500.4050 ####[facility] [address] [place], [address] Chloride [Moles/Vol] 107 mmol/L Normal 98-108 [facility] Comment on above: Performed By: #### L 500.4050 ####[facility] [address] [place], [address] CO2 [Moles/Vol] 24.3 mmol/L Normal 21.0-32.0 [facility] Comment on above: Performed By: #### L 500.4050 ####[facility] [address] [place], [address] Creatinine [Mass/Vol] 0.76 mg/dL Normal 0.70-1.20 [facility] Comment on above: Performed By: #### L 500.4050 ####[facility] [address] [place], [address] ECRCL 127.58 ml/min Normal 50-250 [facility] Comment on above: Performed By: #### L 500.4050 ####[facility] [address] [place], [address] GAP 11 Normal 5-15 [facility] Comment on above: Performed By: #### L 500.4050 ####[facility] [address] [place], [address] GFR/1.73 sq M.predicted among non-blacks MDRD (S/P/Bld) [Vol rate/Area] 111 mL/min/{1.73_m2} Normal >60 [facility] Comment on above: Result Comment: mL/m in/1.73m2 CKD-EPI Creatinine Equation (2020) Performed By: #### L 500.4050 ####[facility] [address] [place], [address] Globulin (S) [Mass/Vol] 2.8 g/dL Normal 2.2-4.2 [facility] Comment on above: Performed By: #### L 500.4050 ####[facility] [address] [place], [address] Glucose [Mass/Vol] 83 mg/dL Normal 70-99 [facility] Comment on above: Performed By: #### L 500.4050 ####[facility] [address] [place], [address] Potassium [Moles/Vol] 3.4 mmol/L Normal 3.3-5.1 [facility] Comment on above: Performed By: #### L 500.4050 ####[facility] [address] [place], [address] Sodium [Moles/Vol] 142 mmol/L Normal 133-145 [facility] Comment on above: Performed By: #### L 500.4050 ####[facility] [address] [place], [address] T PROT 5.8 g/dL Low 5.9-8.4 [facility] Comment on above: Performed By: #### L 500.4050 ####[facility] [address] [place], [place], [address] Urea nitrogen [Mass/Vol] 13 mg/dL Normal 4-19 [facility] Comment on above: Performed By: #### L 500.4050 ####[facility] [address] [place], [place], [address] Eosinophil percentageOrdered By: Aquilino Collins on 10-23-2024 Eosinophils/100 WBC (Bld) 5.8 % High 0-5 [facility] Erythrocyte distribution wid th ratioOrdered By: Aquilino Collins on 10-23-2024 Erythrocyte distribution width (RBC) [Ratio] 11.9 % 11.6-14.6 [facility] Erythrocyte distribution wid th standard deviationOrdered By: Aquilino Collins on 10-23-2024 Erythrocyte distribution width (RBC) [Ratio] 39.5 fl 35.1-43.9 [facility] Glomerular filtration rate ( GFR) estimation/1.73 sq m using serum, plasma, or whole bOrdered By: Wendy Santana on 10-23-2024 GFR/1.73 sq M.predicted among non-blacks MDRD (S/P/Bld) [Vol rate/Area] 111 mL/min/{1.73_m2} >60 [facility] Comment on above: mL/min/1.73m2 CKD-EP I Creatinine Equation (2020) Hematocrit Auto (Bld) [Volum e fraction]Ordered By: Aquilino Collins on 10-23-2024 Hematocrit (Bld) [Volume fraction] 32.9 % Low 37-47 [facility] Hemoglobin measurementOrdere d By: Aquilino Collins on 10-23-2024 Hemoglobin (Bld) [Mass/Vol] 11.1 g/dL Low 12.0-15.0 [facility] Immature granulocytes/100 WB C Auto (Bld)Ordered By: Aquilino Collins on 10-23-2024 Immature granulocytes/100 WBC (Bld) 1.000 % High 0.0-0.9 [facility] Comment on above: IG% - Immature Granu locytes (promyelocytes, myelocytes and metamyelocytes) > 1% indicates that a LEFT SHIFT is Present. Laboratory - Chemistry and C hemistry - challengeOrdered By: Wendy Santana on 10-23-2024 AST [Catalytic activity/Vol] 11 U/L <32 [facility] MCV (mean corpuscular volume ) determinationOrdered By: Aquilino Collins on 10-23-2024 MCV (RBC) [Entitic vol] 90.4 fL 81-99 [facility] Mean corpuscular hemoglobin (MCH) determinationOrdered By: Aquilino Collins on 10-23-2024 MCH (RBC) [Entitic mass] 30.5 pg 27.0-32.0 [facility] Mean corpuscular hemoglobin concentration (MCHC) determinationOrdered By: Aquilino Collins on 10-23-2024 MCHC (RBC) [Mass/Vol] 33.7 g/dL 32-36 [facility] Mean platelet volume determi nationOrdered By: Aquilino Collins on 10-23-2024 Platelet mean volume (Bld) [Entitic vol] 9.9 fL 6.2-12.0 [facility] Monocyte percentageOrdered B y: Aquilino Collins on 10-23-2024 Monocytes/100 WBC (Bld) 4.4 % 0-10 [facility] Neutrophil percentageOrdered By: Aquilino Collins on 10-23-2024 Neutrophils/100 WBC (Bld) 57.9 % 47-70 [facility] Nucleated red blood cell per centageOrdered By: Aquilino Collins on 10-23-2024 Nucleated RBC/100 WBC (Bld) [Ratio] 0 % 0-5 [facility] Platelet countOrdered By: St steven Collins on 10-23-2024 Platelets (Bld) [#/Vol] 271 10*3/uL 150-450 [facility] Potassium measurement (mass/ volume)Ordered By: Wendy Santana on 10-23-2024 Potassium (Unsp spec) [Mass/Vol] 3.4 mmol/L 3.3-5.1 [facility] RBC Auto (Bld) [#/Vol]Ordere d By: Aquilino Collins on 10-23-2024 RBC (Bld) [#/Vol] 3.64 10*6/uL Low 4.2-5.4 [facility] Serum creatinine measurement (mass/volume)Ordered By: Wendy Santana on 10-23-2024 Creatinine [Mass/Vol] 0.76 mg/dL 0.70-1.20 [facility] Serum globulin measurementOr dered By: Wendy Santana on 10-23-2024 Globulin (S) [Mass/Vol] 2.8 g/dL 2.2-4.2 [facility] Serum glucose measurement (m ass/volume)Ordered By: Wendy Santana on 10-23-2024 Glucose [Mass/Vol] 83 mg/dL 70-99 [facility] Serum or plasma alanine allan otransferase (ALT) measurementOrdered By: Wendy Santana on 10-23-2024 ALT [Catalytic activity/Vol] 10 U/L <35 [facility] Serum or plasma albumin jeimy urement (mass/volume)Ordered By: Wendy Santana on 10-23-2024 Albumin [Mass/Vol] 3.0 g/dL Low 3.5-5.0 [facility] Serum or plasma albumin/glob ulin mass ratioOrdered By: Wendy Santana on 10-23-2024 Albumin/Globulin [Mass ratio] 1.0 {ratio} 0.9-2.4 [facility] Serum or plasma alkaline chaka sphatase measurementOrdered By: Wendy Santana on 10-23-2024 ALP [Catalytic activity/Vol] 75 U/L 35-104 [facility] Serum or plasma calcium jeimy urement (mass/volume)Ordered By: Wendy Santana on 10-23-2024 Calcium [Mass/Vol] 8.6 mg/dL 7.6-11.0 [facility] Serum or plasma urea nitroge n measurement (mass/volume)Ordered By: Wendy Santana on 10-23-2024 Urea nitrogen [Mass/Vol] 13 mg/dL 4-19 [facility] Sodium levelOrdered By: Xiang Knott on 10-23-2024 Sodium [Moles/Vol] 142 mmol/L 133-145 [facility] Total proteinOrdered By: Malia Santana on 10-23-2024 Protein [Mass/Vol] 5.8 g/dL Low 5.9-8.4 [facility] White blood cell (WBC) count Ordered By: Aquilino Collins on 10-23-2024 WBC (Bld) [#/Vol] 11.4 10*3/uL High 4.4-11.0 [facility] CBC W/Diff, Automatedon 10-08 Absolute Lymph 1.35 X10 3/uL Normal 0.83-4.51 [facility] Comment on above: Performed By: #### L 100.0100 ####[facility] [address] [place], [address] Absolute Neut 9.7 X10 3/uL High 2.0-7.7 [facility] Comment on above: Performed By: #### L 100.0100 ####[facility] [address] [place], [address] Basophils/100 WBC (Bld) 0.3 % Normal 0-1 [facility] Comment on above: Performed By: #### L 100.0100 ####[facility] [address] [place], [address] Eosinophils/100 WBC (Bld) 0.0 % Normal 0-5 [facility] Comment on above: Performed By: #### L 100.0100 ####[facility] [address] [place], [address] Erythrocyte distribution width (RBC) [Ratio] 11.8 % Normal 11.6-14.6 [facility] Comment on above: Performed By: #### L 100.0100 ####[facility] [address] [place], [address] Hematocrit (Bld) [Volume fraction] 34.5 % Low 37-47 [facility] Comment on above: Performed By: #### L 100.0100 ####[facility] [address] [place], [address] Hemoglobin (Bld) [Mass/Vol] 11.8 g/dL Low 12.0-15.0 [facility] Comment on above: Performed By: #### L 100.0100 ####[facility] [address] [place], [address] IG% 0.900 Normal 0.0-0.9 [facility] Comment on above: Result Comment: IG% - Immature Granulocytes (promyelocytes, myelocytes andmetamyelocytes) > 1% indicates that a LEFT SHIFT is Present. Performed By: #### L 100.0100 ####[facility] [address] [place], [address] Lymphocytes/100 WBC (Bld) 11.5 % Low 19-41 [facility] Comment on above: Performed By: #### L 100.0100 ####[facility] [address] [place], [address] MCH (RBC) [Entitic mass] 30.8 pg Normal 27.0-32.0 [facility] Comment on above: Performed By: #### L 100.0100 ####[facility] [address] [place], [address] MCHC (RBC) [Mass/Vol] 34.2 g/dL Normal 32-36 [facility] Comment on above: Performed By: #### L 100.0100 ####[facility] [address] [place], [address] MCV (RBC) [Entitic vol] 90.1 fL Normal 81-99 [facility] Comment on above: Performed By: #### L 100.0100 ####[facility] [address] [place], [address] Monocytes/100 WBC (Bld) 5.3 % Normal 0-10 [facility] Comment on above: Performed By: #### L 100.0100 ####[facility] [address] [place], [address] Neutrophils/100 WBC (Bld) 82.0 % High 47-70 [facility] Comment on above: Performed By: #### L 100.0100 ####[facility] [address] [place], [address] Nucleated RBC (Bld) [#/Vol] 0 10*3/uL Normal 0-5 [facility] Comment on above: Performed By: #### L 100.0100 ####[facility] [address] [place], [address] Platelet mean volume (Bld) [Entitic vol] 10.2 fL Normal 6.2-12.0 [facility] Comment on above: Performed By: #### L 100.0100 ####[facility] [address] [place], [address] Platelets (Bld) [#/Vol] 228 10*3/uL Normal 150-450 [facility] Comment on above: Performed By: #### L 100.0100 ####[facility] [address] [place], [address] RBC (Bld) [#/Vol] 3.83 10*6/uL Low 4.2-5.4 [facility] Comment on above: Performed By: #### L 100.0100 ####[facility] [address] [place], [address] RDW SD 38.6 fl Normal 35.1-43.9 [facility] Comment on above: Performed By: #### L 100.0100 ####[facility] [address] [place], [address] WBC (Bld) [#/Vol] 11.8 10*3/uL High 4.4-11.0 [facility] Comment on above: Performed By: #### L 100.0100 ####[facility] [address] [place], [address] Comprehensive Metabolic Prof il10-22-2024 Albumin [Mass/Vol] 3.2 g/dL Low 3.5-5.0 [facility] Comment on above: Performed By: #### L 500.4050 ####[facility] [address] [place], [address] Albumin/Globulin [Mass ratio] 1.0 {ratio} Normal 0.9-2.4 [facility] Comment on above: Performed By: #### L 500.4050 ####[facility] [address] [place], [address] ALK PHOS 91 U/L Normal 35-104 [facility] Comment on above: Performed By: #### L 500.4050 ####[facility] [address] [place], [address] ALT [Catalytic activity/Vol] 12 U/L Normal <=34 [facility] Comment on above: Performed By: #### L 500.4050 ####[facility] [address] [place], [address] AST [Catalytic activity/Vol] 14 U/L Normal <=31 [facility] Comment on above: Performed By: #### L 500.4050 ####[facility] [address] [place], [address] Bilirubin [Mass/Vol] 0.28 mg/dL Normal 0.00-1.30 [facility] Comment on above: Performed By: #### L 500.4050 ####[facility] [address] [place], [address] BUN/CRE 10.9 RATIO Normal 10-20 [facility] Comment on above: Performed By: #### L 500.4050 ####[facility] [address] [place], [address] Calcium [Mass/Vol] 8.8 mg/dL Normal 7.6-11.0 [facility] Comment on above: Performed By: #### L 500.4050 ####[facility] [address] [place], [address] Chloride [Moles/Vol] 105 mmol/L Normal 98-108 [facility] Comment on above: Performed By: #### L 500.4050 ####[facility] [address] [place], [address] CO2 [Moles/Vol] 21.9 mmol/L Normal 21.0-32.0 [facility] Comment on above: Performed By: #### L 500.4050 ####[facility] [address] [place], [address] Creatinine [Mass/Vol] 0.62 mg/dL Low 0.70-1.20 [facility] Comment on above: Performed By: #### L 500.4050 ####[facility] [address] [place], [address] ECRCL 156.39 ml/min Normal 50-250 [facility] Comment on above: Performed By: #### L 500.4050 ####[facility] [address] [place], [address] GAP 12 Normal 5-15 [facility] Comment on above: Performed By: #### L 500.4050 ####[facility] [address] [place], [address] GFR/1.73 sq M.predicted among non-blacks MDRD (S/P/Bld) [Vol rate/Area] 127 mL/min/{1.73_m2} Normal >60 [facility] Comment on above: Result Comment: mL/m in/1.73m2 CKD-EPI Creatinine Equation (2020) Performed By: #### L 500.4050 ####[facility] [address] [place], [address] Globulin (S) [Mass/Vol] 3.2 g/dL Normal 2.2-4.2 [facility] Comment on above: Performed By: #### L 500.4050 ####[facility] [address] [place], [address] Glucose [Mass/Vol] 126 mg/dL High 70-99 [facility] Comment on above: Performed By: #### L 500.4050 ####[facility] [address] [place], [address] Potassium [Moles/Vol] 4.2 mmol/L Normal 3.3-5.1 [facility] Comment on above: Performed By: #### L 500.4050 ####[facility] [address] [place], [address] Sodium [Moles/Vol] 139 mmol/L Normal 133-145 [facility] Comment on above: Performed By: #### L 500.4050 ####[facility] [address] [place], [address] T PROT 6.4 g/dL Normal 5.9-8.4 [facility] Comment on above: Performed By: #### L 500.4050 ####[facility] [address] [place], [address] Urea nitrogen [Mass/Vol] 7 mg/dL Normal 4-19 [facility] Comment on above: Performed By: #### L 500.4050 ####[facility] [address] [place], [address] 12 Lead EKGon 10-21-2024 12 Lead EKG Normal [facility] Activated partial thrombopla stin time (aPTT) in platelet poor plasma by coagulation aOrdered By: Dorian Daily on 10-21-2024 aPTT Coag (PPP) [Time] 35.3 s 24.1-36.2 [facility] CBC W/Diff, Automatedon 10-08 Absolute Lymph 1.15 X10 3/uL Normal 0.83-4.51 [facility] Comment on above: Performed By: #### L 100.0100, L500.4050 ####[facility] [address] [place], [address] Absolute Neut 6.5 X10 3/uL Normal 2.0-7.7 [facility] Comment on above: Performed By: #### L 100.0100, L500.4050 ####[facility] [address] [place], [address] Basophils/100 WBC (Bld) 0.4 % Normal 0-1 [facility] Comment on above: Performed By: #### L 100.0100, L500.4050 ####[facility] [address] [place], [address] Eosinophils/100 WBC (Bld) 4.0 % Normal 0-5 [facility] Comment on above: Performed By: #### L 100.0100, L500.4050 ####[facility] [address] [place], [address] Erythrocyte distribution width (RBC) [Ratio] 11.6 % Normal 11.6-14.6 [facility] Comment on above: Performed By: #### L 100.0100, L500.4050 ####[facility] [address] [place], [address] Hematocrit (Bld) [Volume fraction] 34.1 % Low 37-47 [facility] Comment on above: Performed By: #### L 100.0100, L500.4050 ####[facility] [address] [place], [address] Hemoglobin (Bld) [Mass/Vol] 11.5 g/dL Low 12.0-15.0 [facility] Comment on above: Performed By: #### L 100.0100, L500.4050 ####[facility] [address] [place], [address] IG% 0.600 Normal 0.0-0.9 [facility] Comment on above: Result Comment: IG% - Immature Granulocytes (promyelocytes, myelocytes andmetamyelocytes) > 1% indicates that a LEFT SHIFT is Present. Performed By: #### L 100.0100, L500.4050 ####[facility] [address] [place], [address] Lymphocytes/100 WBC (Bld) 13.5 % Low 19-41 [facility] Comment on above: Performed By: #### L 100.0100, L500.4050 ####[facility] [address] [place], [address] MCH (RBC) [Entitic mass] 30.6 pg Normal 27.0-32.0 [facility] Comment on above: Performed By: #### L 100.0100, L500.4050 ####[facility] [address] [place], [address] MCHC (RBC) [Mass/Vol] 33.7 g/dL Normal 32-36 [facility] Comment on above: Performed By: #### L 100.0100, L500.4050 ####[facility] [address] [place], [address] MCV (RBC) [Entitic vol] 90.7 fL Normal 81-99 [facility] Comment on above: Performed By: #### L 100.0100, L500.4050 ####[facility] [address] [place], [address] Monocytes/100 WBC (Bld) 5.9 % Normal 0-10 [facility] Comment on above: Performed By: #### L 100.0100, L500.4050 ####[facility] [address] [place], [address] Neutrophils/100 WBC (Bld) 75.6 % High 47-70 [facility] Comment on above: Performed By: #### L 100.0100, L500.4050 ####[facility] [address] [place], [address] Nucleated RBC (Bld) [#/Vol] 0 10*3/uL Normal 0-5 [facility] Comment on above: Performed By: #### L 100.0100, L500.4050 ####[facility] [address] [place], [address] Platelet mean volume (Bld) [Entitic vol] 10.1 fL Normal 6.2-12.0 [facility] Comment on above: Performed By: #### L 100.0100, L500.4050 ####[facility] [address] [place], [address] Platelets (Bld) [#/Vol] 217 10*3/uL Normal 150-450 [facility] Comment on above: Performed By: #### L 100.0100, L500.4050 ####[facility] [address] [place], [address] RBC (Bld) [#/Vol] 3.76 10*6/uL Low 4.2-5.4 [facility] Comment on above: Performed By: #### L 100.0100, L500.4050 ####[facility] [address] [place], [address] RDW SD 38.5 fl Normal 35.1-43.9 [facility] Comment on above: Performed By: #### L 100.0100, L500.4050 ####[facility] [address] [place], [address] WBC (Bld) [#/Vol] 8.5 10*3/uL Normal 4.4-11.0 [facility] Comment on above: Performed By: #### L 100.0100, L500.4050 ####[facility] [address] [place], [address] Comprehensive Metabolic Prof [facility] 10-21-2024 Albumin [Mass/Vol] 3.4 g/dL Low 3.5-5.0 [facility] Comment on above: Performed By: #### L 100.0100, L500.4050 ####[facility] [address] [place], [address] Albumin/Globulin [Mass ratio] 1.1 {ratio} Normal 0.9-2.4 [facility] Comment on above: Performed By: #### L 100.0100, L500.4050 ####[facility] [address] [place], [address] ALK PHOS 95 U/L Normal 35-104 [facility] Comment on above: Performed By: #### L 100.0100, L500.4050 ####[facility] [address] [place], [address] ALT [Catalytic activity/Vol] 10 U/L Normal <=34 [facility] Comment on above: Performed By: #### L 100.0100, L500.4050 ####[facility] [address] [place], [address] AST [Catalytic activity/Vol] 13 U/L Normal <=31 [facility] Comment on above: Performed By: #### L 100.0100, L500.4050 ####[facility] [address] [place], [address] Bilirubin [Mass/Vol] 0.46 mg/dL Normal 0.00-1.30 [facility] Comment on above: Performed By: #### L 100.0100, L500.4050 ####[facility] [address] [place], [address] BUN/CRE 12.2 RATIO Normal 10-20 [facility] Comment on above: Performed By: #### L 100.0100, L500.4050 ####[facility] [address] [place], [address] Calcium [Mass/Vol] 8.7 mg/dL Normal 7.6-11.0 [facility] Comment on above: Performed By: #### L 100.0100, L500.4050 ####[facility] [address] [place], [address] Chloride [Moles/Vol] 102 mmol/L Normal 98-108 [facility] Comment on above: Performed By: #### L 100.0100, L500.4050 ####[facility] [address] [place], [address] CO2 [Moles/Vol] 23.1 mmol/L Normal 21.0-32.0 [facility] Comment on above: Performed By: #### L 100.0100, L500.4050 ####[facility] [address] [place], [address] Creatinine [Mass/Vol] 0.68 mg/dL Low 0.70-1.20 [facility] Comment on above: Performed By: #### L 100.0100, L500.4050 ####[facility] [address] [place], [address] ECRCL 142.59 ml/min Normal 50-250 [facility] Comment on above: Performed By: #### L 100.0100, L500.4050 ####[facility] [address] [place], [address] GAP 12 Normal 5-15 [facility] Comment on above: Performed By: #### L 100.0100, L500.4050 ####[facility] [address] [place], [address] GFR/1.73 sq M.predicted among non-blacks MDRD (S/P/Bld) [Vol rate/Area] 124 mL/min/{1.73_m2} Normal >60 [facility] Comment on above: Result Comment: mL/m in/1.73m2 CKD-EPI Creatinine Equation (2020) Performed By: #### L 100.0100, L500.4050 ####[facility] [address] [place], [address] Globulin (S) [Mass/Vol] 3.1 g/dL Normal 2.2-4.2 [facility] Comment on above: Performed By: #### L 100.0100, L500.4050 ####[facility] [address] [place], [address] Glucose [Mass/Vol] 69 mg/dL Low 70-99 [facility] Comment on above: Performed By: #### L 100.0100, L500.4050 ####[facility] [address] [place], [address] Potassium [Moles/Vol] 3.3 mmol/L Normal 3.3-5.1 [facility] Comment on above: Performed By: #### L 100.0100, L500.4050 ####[facility] [address] [place], [address] Sodium [Moles/Vol] 137 mmol/L Normal 133-145 [facility] Comment on above: Performed By: #### L 100.0100, L500.4050 ####[facility] [address] [place], [address] T PROT 6.5 g/dL Normal 5.9-8.4 [facility] Comment on above: Performed By: #### L 100.0100, L500.4050 ####[facility] [address] [place], [address] Urea nitrogen [Mass/Vol] 8 mg/dL Normal 4-19 [facility] Comment on above: Performed By: #### L 100.0100, L500.4050 ####[facility] [address] [place], [address] International normalized rat io (INR) calculationOrdered By: Dorian Daily on 10-21-2024 INR Coag (Bld) [Relative time] 1.0 {INR} [facility] MR/POSTOP.ANEon 10-21-2024 MR/POSTOP.ANE Normal [facility] MR/HKGUZSZF0te 10-21-2024 MR/POSTOPAN2 Normal [facility] Operative Reporton Operative Report Normal [facility] Partial Thromboplast Timeon 10-21-2024 aPTT Coag (Bld) [Time] 35.3 s Normal 24.1-36.2 [facility] Comment on above: Performed By: #### L 300.4310, L300.3900 ####[facility] [address] [place], [address] ,Urineon 10-21-2024 Beta HCG ( test) Ql (U) Negative Normal [facility] Comment on above: Result Comment: Very dilute urine specimens, as indicated by a low specificgravity, may not contain chemical sales representative levels of hCG.If is still suspected, a first morning urinespecimen should be collected 48 hours later and tested. Performed By: #### L 400.7600 ####[facility] [address] [place], [address] Prothrombin Time w/INRon INR Coag (PPP) [Relative time] 1.0 {INR} Normal [facility] Comment on above: Performed By: #### L 300.4310, L300.3900 ####[facility] [address] [place], [address] PT Coag (PPP) [Time] 13.4 s Normal 11.7-14.9 [facility] Comment on above: Performed By: #### L 300.4310, L300.3900 ####[facility] [address] [place], [place], [address] Prothrombin timeOrdered By: Dorian Daily on 10-21-2024 PT Coag (PPP) [Time] 13.4 s 11.7-14.9 [facility] Surgery Specimen Level IIIon 10-21-2024 Surgery Specimen Level III Normal [facility] Comment on above: Performed By: #### P SUIII ####[facility] [address] [place], [place], [address] Urine testOrdered By: Dorian Daily on 10-21-2024 HCG ( test) Ql (U) Negative [facility] Comment on above: Very dilute urine sp ecimens, as indicated by a low specificgravity, may not contain chemical sales representative levels of hCG. If is still suspected, a first morning urinespecimen should be collected 48 hours later and tested. Absolute lymphocyte countOrd ered By: Dillan Wu on 10-20-2024 Lymphocytes Auto (Unsp spec) [#/Vol] 1.83 10*3/uL 0.83-4.51 [facility] Absolute neutrophil countOrd ered By: Dillan Wu on 10-20-2024 Neutrophils (Bld) [#/Vol] 8.0 10*3/uL High 2.0-7.7 [facility] Anion gap in Serum or Plasma Ordered By: Dillan Wu on 10-20-2024 Anion gap [Moles/Vol] 15 mmol/L 5-15 [facility] Automated lymphocyte count a s percentage of total leukocytesOrdered By: Dillan Wu on 10-20-2024 Lymphocytes/100 WBC Auto (Unsp spec) 17.3 % Low 19-41 [facility] BUN/creatinine ratioOrdered By: Dillan Wu on 10-20-2024 Urea nitrogen/Creatinine [Mass ratio] 11.6 mg/mg 10-20 [facility] Basophil percentageOrdered B y: Dillan Wu on 10-20-2024 Basophils/100 WBC (Bld) 0.5 % 0-1 [facility] Bilirubin Test strip Ql (U)O rdered By: Dillan Wu on 10-20-2024 Bilirubin Ql (U) Negative Negative [facility] Bilirubin, totalOrdered By: Dillan Wu on 10-20-2024 Bilirubin [Mass/Vol] 0.51 mg/dL 0.00-1.30 [facility] CBC W/Diff, Automatedon 10-08 Absolute Lymph 1.83 X10 3/uL Normal 0.83-4.51 [facility] Comment on above: Performed By: #### L 500.4050, L100.0100, L501.2450 ####[facility] [address] [place], [address] Absolute Neut 8.0 X10 3/uL High 2.0-7.7 [facility] Comment on above: Performed By: #### L 500.4050, L100.0100, L501.2450 ####[facility] [address] [place], [address] Basophils/100 WBC (Bld) 0.5 % Normal 0-1 [facility] Comment on above: Performed By: #### L 500.4050, L100.0100, L501.2450 ####[facility] [address] [place], [address] Eosinophils/100 WBC (Bld) 1.2 % Normal 0-5 [facility] Comment on above: Performed By: #### L 500.4050, L100.0100, L501.2450 ####[facility] [address] [place], [address] Erythrocyte distribution width (RBC) [Ratio] 11.5 % Low 11.6-14.6 [facility] Comment on above: Performed By: #### L 500.4050, L100.0100, L501.2450 ####[facility] [address] [place], [address] Hematocrit (Bld) [Volume fraction] 35.2 % Low 37-47 [facility] Comment on above: Performed By: #### L 500.4050, L100.0100, L501.2450 ####[facility] [address] [place], [address] Hemoglobin (Bld) [Mass/Vol] 11.9 g/dL Low 12.0-15.0 [facility] Comment on above: Performed By: #### L 500.4050, L100.0100, L501.2450 ####[facility] [address] [place], [address] IG% 0.600 Normal 0.0-0.9 [facility] Comment on above: Result Comment: IG% - Immature Granulocytes (promyelocytes, myelocytes andmetamyelocytes) > 1% indicates that a LEFT SHIFT is Present. Performed By: #### L 500.4050, L100.0100, L501.2450 ####[facility] [address] [place], [address] Lymphocytes/100 WBC (Bld) 17.3 % Low 19-41 [facility] Comment on above: Performed By: #### L 500.4050, L100.0100, L501.2450 ####[facility] [address] [place], [address] MCH (RBC) [Entitic mass] 30.5 pg Normal 27.0-32.0 [facility] Comment on above: Performed By: #### L 500.4050, L100.0100, L501.2450 ####[facility] [address] [place], [address] MCHC (RBC) [Mass/Vol] 33.8 g/dL Normal 32-36 [facility] Comment on above: Performed By: #### L 500.4050, L100.0100, L501.2450 ####[facility] [address] [place], [address] MCV (RBC) [Entitic vol] 90.3 fL Normal 81-99 [facility] Comment on above: Performed By: #### L 500.4050, L100.0100, L501.2450 ####[facility] [address] [place], [address] Monocytes/100 WBC (Bld) 4.9 % Normal 0-10 [facility] Comment on above: Performed By: #### L 500.4050, L100.0100, L501.2450 ####[facility] [address] [place], [address] Neutrophils/100 WBC (Bld) 75.5 % High 47-70 [facility] Comment on above: Performed By: #### L 500.4050, L100.0100, L501.2450 ####[facility] [address] [place], [address] Nucleated RBC (Bld) [#/Vol] 0 10*3/uL Normal 0-5 [facility] Comment on above: Performed By: #### L 500.4050, L100.0100, L501.2450 ####[facility] [address] [place], [address] Platelet mean volume (Bld) [Entitic vol] 10.1 fL Normal 6.2-12.0 [facility] Comment on above: Performed By: #### L 500.4050, L100.0100, L501.2450 ####[facility] [address] [place], [address] Platelets (Bld) [#/Vol] 252 10*3/uL Normal 150-450 [facility] Comment on above: Performed By: #### L 500.4050, L100.0100, L501.2450 ####[facility] [address] [place], [address] RBC (Bld) [#/Vol] 3.90 10*6/uL Low 4.2-5.4 [facility] Comment on above: Performed By: #### L 500.4050, L100.0100, L501.2450 ####[facility] [address] [place], [address] RDW SD 38.0 fl Normal 35.1-43.9 [facility] Comment on above: Performed By: #### L 500.4050, L100.0100, L501.2450 ####[facility] [address] [place], [address] WBC (Bld) [#/Vol] 10.6 10*3/uL Normal 4.4-11.0 [facility] Comment on above: Performed By: #### L 500.4050, L100.0100, L501.2450 ####[facility] [address] [place], [address] Carbon dioxide, total [Moles /volume] in Central venous bloodOrdered By: Dillan Wu on 10-20-2024 CO2 [Moles/Vol] 20.9 mmol/L Low 21.0-32.0 [facility] Chloride assayOrdered By: Noe Wu on 10-20-2024 Chloride [Moles/Vol] 101 mmol/L 98-108 [facility] Comprehensive Metabolic Prof ilon 10-20-2024 Albumin [Mass/Vol] 3.7 g/dL Normal 3.5-5.0 [facility] Comment on above: Performed By: #### L 500.4050, L100.0100, L501.2450 ####[facility] [address] [place], [address] Albumin/Globulin [Mass ratio] 1.1 {ratio} Normal 0.9-2.4 [facility] Comment on above: Performed By: #### L 500.4050, L100.0100, L501.2450 ####[facility] [address] [place], [address] ALK PHOS 102 U/L Normal 35-104 [facility] Comment on above: Performed By: #### L 500.4050, L100.0100, L501.2450 ####[facility] [address] [place], [address] ALT [Catalytic activity/Vol] 11 U/L Normal <=34 [facility] Comment on above: Performed By: #### L 500.4050, L100.0100, L501.2450 ####[facility] [address] [place], [address] AST [Catalytic activity/Vol] 15 U/L Normal <=31 [facility] Comment on above: Performed By: #### L 500.4050, L100.0100, L501.2450 ####[facility] [address] [place], [address] Bilirubin [Mass/Vol] 0.51 mg/dL Normal 0.00-1.30 [facility] Comment on above: Performed By: #### L 500.4050, L100.0100, L501.2450 ####[facility] [address] [place], [address] BUN/CRE 11.6 RATIO Normal 10-20 [facility] Comment on above: Performed By: #### L 500.4050, L100.0100, L501.2450 ####[facility] [address] [place], [address] Calcium [Mass/Vol] 9.1 mg/dL Normal 7.6-11.0 [facility] Comment on above: Performed By: #### L 500.4050, L100.0100, L501.2450 ####[facility] [address] [place], [address] Chloride [Moles/Vol] 101 mmol/L Normal 98-108 [facility] Comment on above: Performed By: #### L 500.4050, L100.0100, L501.2450 ####[facility] [address] [place], [address] CO2 [Moles/Vol] 20.9 mmol/L Low 21.0-32.0 [facility] Comment on above: Performed By: #### L 500.4050, L100.0100, L501.2450 ####[facility] [address] [place], [address] Creatinine [Mass/Vol] 0.82 mg/dL Normal 0.70-1.20 [facility] Comment on above: Performed By: #### L 500.4050, L100.0100, L501.2450 ####[facility] [address] [place], [address] ECRCL 114.12 ml/min Normal 50-250 [facility] Comment on above: Performed By: #### L 500.4050, L100.0100, L501.2450 ####[facility] [address] [place], [address] GAP 15 Normal 5-15 [facility] Comment on above: Performed By: #### L 500.4050, L100.0100, L501.2450 ####[facility] [address] [place], [address] GFR/1.73 sq M.predicted among non-blacks MDRD (S/P/Bld) [Vol rate/Area] 102 mL/min/{1.73_m2} Normal >60 [facility] Comment on above: Result Comment: mL/m in/1.73m2 CKD-EPI Creatinine Equation (2020) Performed By: #### L 500.4050, L100.0100, L501.2450 ####[facility] [address] [place], [address] Globulin (S) [Mass/Vol] 3.5 g/dL Normal 2.2-4.2 [facility] Comment on above: Performed By: #### L 500.4050, L100.0100, L501.2450 ####[facility] [address] [place], [address] Glucose [Mass/Vol] 74 mg/dL Normal 70-99 [facility] Comment on above: Performed By: #### L 500.4050, L100.0100, L501.2450 ####[facility] [address] [place], [address] Potassium [Moles/Vol] 3.8 mmol/L Normal 3.3-5.1 [facility] Comment on above: Performed By: #### L 500.4050, L100.0100, L501.2450 ####[facility] [address] [place], [address] Sodium [Moles/Vol] 137 mmol/L Normal 133-145 [facility] Comment on above: Performed By: #### L 500.4050, L100.0100, L501.2450 ####[facility] [address] [place], [address] T PROT 7.2 g/dL Normal 5.9-8.4 [facility] Comment on above: Performed By: #### L 500.4050, L100.0100, L501.2450 ####[facility] [address] [place], [address] Urea nitrogen [Mass/Vol] 9 mg/dL Normal 4-19 [facility] Comment on above: Performed By: #### L 500.4050, L100.0100, L501.2450 ####[facility] [id number] [place], [address] Emergency Department Summary on 10-20-2024 Emergency Department Summary Normal [facility] Eosinophil percentageOrdered By: Dillan Wu on 10-20-2024 Eosinophils/100 WBC (Bld) 1.2 % 0-5 [facility] Erythrocyte distribution wid th ratioOrdered By: Dillan Wu on 10-20-2024 Erythrocyte distribution width (RBC) [Ratio] 11.5 % Low 11.6-14.6 [facility] Erythrocyte distribution wid th standard deviationOrdered By: Dillan Wu on 10-20-2024 Erythrocyte distribution width (RBC) [Ratio] 38.0 fl 35.1-43.9 [facility] Gallbladderon 10-20-2024 Gallbladder Normal [facility] Glomerular filtration rate ( GFR) estimation/1.73 sq m using serum, plasma, or whole bOrdered By: Dillan Wu on 10-20-2024 GFR/1.73 sq M.predicted among non-blacks MDRD (S/P/Bld) [Vol rate/Area] 102 mL/min/{1.73_m2} >60 [facility] Comment on above: mL/min/1.73m2 CKD-EP I Creatinine Equation (2020) Hematocrit Auto (Bld) [Volum e fraction]Ordered By: Dillan Wu on 10-20-2024 Hematocrit (Bld) [Volume fraction] 35.2 % Low 37-47 [facility] Hemoglobin measurementOrdere d By: Dillan Wu on 10-20-2024 Hemoglobin (Bld) [Mass/Vol] 11.9 g/dL Low 12.0-15.0 [facility] Immature granulocytes/100 WB C Auto (Bld)Ordered By: Dillan Wu on 10-20-2024 Immature granulocytes/100 WBC (Bld) 0.600 % 0.0-0.9 [facility] Comment on above: IG% - Immature Granu locytes (promyelocytes, myelocytes and metamyelocytes) > 1% indicates that a LEFT SHIFT is Present. Ketones Test strip Ql (U)Ord ered By: Dillan Wu on 10-20-2024 Ketones Ql (U) 150 mg/dl Abnormal Negative [facility] Comment on above: CRITICAL VALUE BUTLER D TO BLANCO CAMPOS10/20/24 1830 Rosy Nicole.RESULTS READ BACK BY SAME. Laboratory - Chemistry and C hemistry - challengeOrdered By: Dillan Wu on 10-20-2024 AST [Catalytic activity/Vol] 15 U/L <32 [facility] Lipaseon 10-20-2024 Lipase [Catalytic activity/Vol] 13 U/L Normal 13-75 [facility] Comment on above: Result Comment: Nicholas sood note:LIPASE revised reference range effective 22.New Lipase methodology. Expected to produce lower valuesthan the previous assay method.NEW Reference Range: 13 - 75 U/L Performed By: #### L 500.4050, L100.0100, L501.2450 ####[facility] [address] [place], [address] Lipase measurementOrdered By : Dillan Wu on 10-20-2024 Lipase [Catalytic activity/Vol] 13 U/L 13-75 [facility] Comment on above: Please note:LIPASE r evised reference range effective 22. New Lipase methodology. Expected to produce lower values than the previous assay method. NEW Reference Range: 13 - 75 U/L MCV (mean corpuscular volume ) determinationOrdered By: Dillan Wu on 10-20-2024 MCV (RBC) [Entitic vol] 90.3 fL 81-99 [facility] Mean corpuscular hemoglobin (MCH) determinationOrdered By: Dilaln Wu on 10-20-2024 MCH (RBC) [Entitic mass] 30.5 pg 27.0-32.0 [facility] Mean corpuscular hemoglobin concentration (MCHC) determinationOrdered By: Dillan Wu on 10-20-2024 MCHC (RBC) [Mass/Vol] 33.8 g/dL 32-36 [facility] Mean platelet volume determi nationOrdered By: Dillan Wu on 10-20-2024 Platelet mean volume (Bld) [Entitic vol] 10.1 fL 6.2-12.0 [facility] Microscopic analysis of urin e for red blood cells (RBC)Ordered By: Dillan Wu on 10-20-2024 Microscopic analysis of urine for red blood cells (RBC) 5-10 SEEN /hpf 0-5 [facility] Monocyte percentageOrdered B y: Dillan Wu on 10-20-2024 Monocytes/100 WBC (Bld) 4.9 % 0-10 [facility] Mucus LM Ql (Urine sed)Order ed By: Dillan Wu on 10-20-2024 Mucus Ql (Urine sed) 0 SEEN /hpf [facility] Neutrophil percentageOrdered By: Dillan Wu on 10-20-2024 Neutrophils/100 WBC (Bld) 75.5 % High 47-70 [facility] Nitrite Test strip Ql (U)Ord ered By: Dillan Wu on 10-20-2024 Nitrite Ql (U) Negative Negative [facility] Nucleated red blood cell per centageOrdered By: Dillan Wu on 10-20-2024 Nucleated RBC/100 WBC (Bld) [Ratio] 0 % 0-5 [facility] Platelet countOrdered By: Noe Wu on 10-20-2024 Platelets (Bld) [#/Vol] 252 10*3/uL 150-450 [facility] Potassium measurement (mass/ volume)Ordered By: Dillan Wu on 10-20-2024 Potassium (Unsp spec) [Mass/Vol] 3.8 mmol/L 3.3-5.1 [facility] Protein Test strip Ql (U)Ord ered By: Dillan Wu on 10-20-2024 Protein Ql (U) 30 mg/dl High Negative [facility] RBC Auto (Bld) [#/Vol]Ordere d By: Dillan Wu on 10-20-2024 RBC (Bld) [#/Vol] 3.90 10*6/uL Low 4.2-5.4 [facility] Serum creatinine measurement (mass/volume)Ordered By: Dillan Wu on 10-20-2024 Creatinine [Mass/Vol] 0.82 mg/dL 0.70-1.20 [facility] Serum globulin measurementOr dered By: Dillan Wu on 10-20-2024 Globulin (S) [Mass/Vol] 3.5 g/dL 2.2-4.2 [facility] Serum glucose measurement (m ass/volume)Ordered By: Dillan Wu on 10-20-2024 Glucose [Mass/Vol] 74 mg/dL 70-99 [facility] Serum or plasma alanine allan otransferase (ALT) measurementOrdered By: Dillan Wu on 10-20-2024 ALT [Catalytic activity/Vol] 11 U/L <35 [facility] Serum or plasma albumin jeimy urement (mass/volume)Ordered By: Dillan Wu on 10-20-2024 Albumin [Mass/Vol] 3.7 g/dL 3.5-5.0 [facility] Serum or plasma albumin/glob ulin mass ratioOrdered By: Dillan Wu on 10-20-2024 Albumin/Globulin [Mass ratio] 1.1 {ratio} 0.9-2.4 [facility] Serum or plasma alkaline chaka sphatase measurementOrdered By: Dillan Wu on 10-20-2024 ALP [Catalytic activity/Vol] 102 U/L 35-104 [facility] Serum or plasma calcium jeimy urement (mass/volume)Ordered By: Dillan Wu on 10-20-2024 Calcium [Mass/Vol] 9.1 mg/dL 7.6-11.0 [facility] Serum or plasma urea nitroge n measurement (mass/volume)Ordered By: Dillan Wu on 10-20-2024 Urea nitrogen [Mass/Vol] 9 mg/dL 4-19 [facility] Sodium levelOrdered By: Dillan Wu on 10-20-2024 Sodium [Moles/Vol] 137 mmol/L 133-145 [facility] Squamous epithelial cells de tection in urine sediment by light microscopyOrdered By: Dillan Wu on 10-20-2024 Epithelial cells.squamous LM Ql (Urine sed) 0-5 SEEN /hpf 5-10 [facility] Total proteinOrdered By: Shantanu Wu on 10-20-2024 Protein [Mass/Vol] 7.2 g/dL 5.9-8.4 [facility] Urinalysis, Completeon 10-20 WBC 5-10 SEEN Normal 0-5 [facility] Comment on above: Order Comment: CLEAN CATCH Performed By: #### L 400.0001 ####[facility] [address] [place], [place], [id number] BACTERIA 1+ /hpf Normal None Seen [facility] Comment on above: Order Comment: CLEAN CATCH Performed By: #### L 400.0001 ####[facility] [address] [place], [address] EPI,SQUAMOUS 0-5 SEEN Normal 5-10 [facility] Comment on above: Order Comment: CLEAN CATCH Performed By: #### L 400.0001 ####[facility] [address] [place], [address] RBC 5-10 SEEN Normal 0-5 [facility] Comment on above: Order Comment: CLEAN CATCH Performed By: #### L 400.0001 ####[facility] [address] [place], [address] Mucus Ql (Urine sed) 0 SEEN Normal [facility] Comment on above: Order Comment: CLEAN CATCH Performed By: #### L 400.0001 ####[facility] [address] [place], [address] Urine clarityOrdered By: Shantanu uW on 10-20-2024 Clarity (U) Sl. Cloudy Clear [facility] Urine color determinationOrd ered By: Dillan Wu on 10-20-2024 Color (U) Yellow Yellow [facility] Urine cultureOrdered By: Shantanu Wu on 10-20-2024 Bacteria identified Cx Nom (U) Streptococcus gallolyticus pas Abnormal [facility] Bacteria identified Cx Nom (U) Positive Abnormal [facility] Urine glucose detectionOrder ed By: Dillan Wu on 10-20-2024 Glucose Ql (U) Normal mg/dl Normal [facility] Urine leukocyte esterase det ection by dipstickOrdered By: Dillan Wu on 10-20-2024 Leukocyte esterase Test strip Ql (U) 25 /ul High Negative [facility] Urine pHOrdered By: Dillan burnham on 10-20-2024 pH (U) 6.0 [pH] 5.0 - 8.0 [facility] Urine sediment bacteria coun t by microscopy (number/high power field)Ordered By: Dillan Wu on 10-20-2024 Bacteria LM.HPF (Urine sed) [#/Area] 1 /[HPF] None Seen [facility] Urine specific gravity measu rementOrdered By: Dillan Wu on 10-20-2024 Specific gravity (U) [Rel density] 1.020 1.002-1.030 [facility] Urine urobilinogen measureme ntOrdered By: Dillan Wu on 10-20-2024 Urobilinogen Ql (U) 1 mg/dl High Normal [facility] White blood cell (WBC) count Ordered By: Dillan Wu on 10-20-2024 WBC (Bld) [#/Vol] 10.6 10*3/uL 4.4-11.0 [facility] White blood cell countOrdere d By: Dillan Wu on 10-20-2024 White blood cell count 5-10 SEEN /hpf 0-5 [facility] C-REACTIVE PROTEINon 025 CRP 3.45 mg/dl High 0.00 - 0.90 [facility] Comment on above: Performed By: #### 2 [id number] #### [place] [address] CBC + DIFFon 10-16-2024 Baso # 0.02 x10EE3/UL Normal 0.00 - 0.10 [facility] Comment on above: Performed By: #### 2 85544 #### [facility],[address] [place] [address] 31011 Basophils/100 WBC (Bld) 0.2 % Normal 0.0 - 2.0 [facility] Comment on above: Performed By: #### 2 25945 #### [facility],[address] [place] [address] 03440 CBC + DIFF Normal [facility] Comment on above: Result Comment: CBC- COMPLETE BLOOD COUNT Performed By: #### 2 35757 #### [facility],[address] [place] [address] 21086 EO # 0.20 x10EE3/UL Normal 0.00 - 0.50 [facility] Comment on above: Performed By: #### 2 29728 #### [facility],[address] [place] [address]953 Eosinophils/100 WBC (Bld) 2.4 % Normal 0.0 - 7.0 [facility] Comment on above: Performed By: #### 2 97796 #### [facility],[address] [place] [address] Erythrocyte distribution width (RBC) [Ratio] 12.8 % Normal 12.0 - 15.6 [facility] Comment on above: Performed By: #### 2 27955 #### [facility],[address] [place] [address] Hematocrit (Bld) [Volume fraction] 36.5 % Normal 34.0 - 46.0 [facility] Comment on above: Performed By: #### 2 11125 #### [facility],[address] [place] [address] Hemoglobin (Bld) [Mass/Vol] 12.8 g/dL Normal 12.0 - 16.0 [facility] Comment on above: Performed By: #### 2 20832 #### [facility],[address] [place] [address] Lymph # 1.58 x10EE3/UL Normal 0.80 - 2.80 [facility] Comment on above: Performed By: #### 2 47038 #### [place] [address] Lymphocytes/100 WBC (Bld) 18.8 % Low 20.0 - 45.0 [facility] Comment on above: Performed By: #### 2 52641 #### [facility],[address] [place], [place] [id number] MANUAL DIFF N/A Normal [facility] Comment on above: Performed By: #### 2 29043 #### [facility],[address] [place], [place] [id number] MCH (RBC) [Entitic mass] 32 pg Normal 27 - 33 [facility] Comment on above: Performed By: #### 2 78374 #### [facility],[address] [place] [address] MCHC 35 X10 3 Normal 32 - 36 [facility] Comment on above: Performed By: #### 2 92881 #### [facility],[address] [place], [place] [id number] MCV (RBC) [Entitic vol] 91 fL Normal 80 - 99 [facility] Comment on above: Performed By: #### 2 49645 #### [facility],[address] [place] [address] [place] # 0.36 x10EE3/UL Normal 0.20 - 1.00 [facility] Comment on above: Performed By: #### 2 17284 #### [facility],[address] [place] [address] MONOS % 4.3 % Normal 0.0 - 10.0 [facility] Comment on above: Performed By: #### 2 34060 #### [facility],[address] [place] [address] 81811 Morphology Cy (Bld) [Interp] N/A Normal [facility] Comment on above: Performed By: #### 2 14695 #### [facility],[address] [place] [address] Neut # 6.23 x10EE3/UL Normal 1.50 - 7.10 [facility] Comment on above: Performed By: #### 2 05167 #### [facility],[address] [place], [place] [address] Neutrophils/100 WBC (Bld) 74.3 % Normal 46.0 - 76.0 [facility] Comment on above: Performed By: #### 2 44118 #### [facility],[address] [place], [place] [phone] PLATELET 234 x10EE3/UL Normal 150 - 450 [facility] Comment on above: Performed By: #### 2 88617 #### [facility],[address] [place] [address] 97752 Platelet mean volume (Bld) [Entitic vol] 8.5 fL Normal 6.6 - 10.5 [facility] Comment on above: Result Comment: AUTO MATED DIFFERENTIAL Performed By: #### 2 31446 #### [facility],[address] [place] [address] 68313 RBC 4.00 x 10EE6/UL Low 4.10 - 5.30 [facility] Comment on above: Performed By: #### 2 61653 #### [facility],[address] [place] [address] 99924 WBC 8.4 x 10EE3/UL Normal 4.5 - 10.8 [facility] Comment on above: Performed By: #### 2 92075 #### [facility],[address] [place] [address] 34339 CMP with eGFRon 10-16-2024 AGE 24 years Normal [facility] Comment on above: Performed By: #### 2 44751 #### [facility],[address] [place] [address] 29186 Albumin [Mass/Vol] 3.5 g/dL Normal 3.4 - 5.0 [facility] Comment on above: Performed By: #### 2 41893 #### [facility],[address] [place] [address] 45972 Albumin/Globulin [Mass ratio] 1.0 {ratio} Normal 0.9 - 1.6 [facility] Comment on above: Performed By: #### 2 71959 #### [facility],[address] [place] [address] 91336 ALK PHOS 89 U/L Normal 46 - 116 [facility] Comment on above: Performed By: #### 2 00364 #### [facility],[address] [place] [address] 38223 ALT [Catalytic activity/Vol] 23 U/L Normal 16 - 63 [facility] Comment on above: Performed By: #### 2 00619 #### [facility],[address] [place] [address] 14802 Anion gap [Moles/Vol] 13 mmol/L Normal 10 - 20 [facility] Comment on above: Performed By: #### 2 03127 #### [facility],[address] [place] [address] 54124 AST [Catalytic activity/Vol] 16 U/L Normal 13 - 39 [facility] Comment on above: Performed By: #### 2 16107 #### [facility],[address] [place] [address] 21811 B/C RATIO 14 ratio Normal 0 - 30 [facility] Comment on above: Performed By: #### 2 03581 #### [facility],[address] [place] [address] 68601 Bilirubin [Mass/Vol] 0.4 mg/dL Normal 0.2 - 1.0 [facility] Comment on above: Performed By: #### 2 36139 #### [facility],[address] [place] [address] 06233 Calcium [Mass/Vol] 9.0 mg/dL Normal 8.5 - 10.1 [facility] Comment on above: Performed By: #### 2 06345 #### [facility],[address] [place] [address] 14885 Chloride [Moles/Vol] 106 mmol/L Normal 98 - 107 [facility] Comment on above: Performed By: #### 2 26960 #### [facility],[address] [place] [address] 86719 CMP with eGFR Normal [facility] Comment on above: Result Comment: COMP REHENSIVE METABOLIC PANEL Performed By: #### 2 51622 #### [facility],[address] [place] [address] 84848 CO2 [Moles/Vol] 26.3 mmol/L Normal 21.0 - 32.0 [facility] Comment on above: Performed By: #### 2 75721 #### [facility],[address] [place] [address] 58187 Creatinine [Mass/Vol] 0.73 mg/dL Normal 0.55 - 1.02 [facility] Comment on above: Performed By: #### 2 24043 #### [facility],[address] [place] [address] 10926 GFR/1.73 sq M.predicted among non-blacks MDRD (S/P/Bld) [Vol rate/Area] mL/min/{1.73_m2} Normal 60 - 999 [facility] Comment on above: Performed By: #### 2 02554 #### [facility],[address] [place] [address] 92367 Result Comment: ACCO RDING TO THE NATIONAL KIDNEY DISEASE EDUCATION PROGRAM(NKDE), A NORMAL eGFR IS A VALUE GREATER THAN OR EQUAL TO 60 ML/MIN/1.73 SQ METERS. CHRONIC KIDNEY DISEASE: <60mL/MIN/1.73 SQ METERS KIDNEY FAILURE: <15mL/MIN/1.73 SQ METERS THIS TEST SHOULD ONLY BE USED FOR PATIENTS 18 YEARS OF AGE AND OLDER. Globulin (S) [Mass/Vol] 3.5 g/dL Normal 1.5 - 3.8 [facility] Comment on above: Performed By: #### 2 97995 #### [facility],[address] [place] [address] 56201 Glucose [Mass/Vol] 103 mg/dL Normal 74 - 106 [facility] Comment on above: Performed By: #### 2 10539 #### [facility],[address] [place] [address] 04462 Potassium [Moles/Vol] 3.4 mmol/L Low 3.5 - 5.1 [facility] Comment on above: Performed By: #### 2 51920 #### [facility],[address] [place] [address] 54656 Protein [Mass/Vol] 7.0 g/dL Normal 6.4 - 8.2 [facility] Comment on above: Performed By: #### 2 67897 #### [facility],[address] [place] [address] 10103 Sodium [Moles/Vol] 142 mmol/L Normal 136 - 145 [facility] Comment on above: Performed By: #### 2 95476 #### [facility],[address] [place], [place] [address] Urea nitrogen [Mass/Vol] 10 mg/dL Normal 7 - 18 [facility] Comment on above: Performed By: #### 2 74330 #### [facility],[address] [place], [place] [address] CT ABDOMEN/PELVIS [facility] 2024 CT ABDOMEN/PELVIS [place] [address] Patient: LUCY CROWLEY V. Phone#: : 2000 Age: 24 Gender: F Pt. Type: ER Account: [id number] Location: [facility] Ordering: ESTELLE QUINTANILLA Exam Date: 10/16/2024/0:49 Family Phys: IRINA ZAMORA Charge Code: 884666 Physician: [place] Order #: [id number] Dose#: 20.6 PROCEDURE: CT ABDOMEN/PELVIS WITH CONTRAST [...] 24 Gender: F Pt. Type: ER Account: [id number] Location: [facility] Ordering: ESTELLE QUINTANILLA Exam Date: 10/16/2024/0:49 Family Phys: IRINA ZAMORA Charge Code: 191145 Physician: [place] Order #: [id number] Dose#: 20.6 OTHER: Negative. CONCLUSION: 1. Gallbladder wall thickening consistent with cholecystitis. 2. Biliary and pancreatic stents are present. Dictated by: Lizbet Espinoza MD on 10/16/2024 at 8:51 Approved by: Lizbet Espinoza MD on 10/16/2024 at 8:54 Normal [facility] ED MED ADMINISTRATION DETAIL on 10-16-2024 ED MED ADMINISTRATION DETAIL Crimper Operator Medication Administration Record [address] [place] [address] [id number] 10/15/2024 Patient: LUCY CROWLEY V Sex: Female [...] Irene Rosa R.N. Ondansetron IVP 4 23:48 10/15 Ondansetron IVP 4 mg given via Site# 1. Allergies Given mg (NOW x1) verified and confirmed 5 rights. IV patency established. IV site 23:48 10/15/2024 checked: no pain, redness, or swelling. IV flushed thoroughly Irene Rosa R.N. pre-medication administration. IVP given by nurse. Information Scanned reviewed with patient. - 23:53 Irene Rosa R.N. 1 of 2 Crimper Operator Medication Ordered Medication Administration Date/Time KetorOLAC 23:53 [...] Irene Rosa R.N. 2 of 2 Normal [facility] ED NURSES CLINICAL NOTEon ED NURSES CLINICAL NOTE Nurse Narrative Nurse Clinical Narrative [address] [place] [address] [id number] 10/15/2024 23:05:00 [id number] Sex: Female : 2000 Age: 24y Disposition: [...] placed in bile duct on 09/[facility]/[address] [facility] [address] Chacon. Patient has an appointment to get stent removed on December 03 and then will follow up with Dr. Shaq Richter to schedule having her gallbladder removed.). The patient has had diarrhea. SEPSIS SCREEN: NEGATIVE. SIRS criteria: heart rate greater than 90. -- 23:10/15/24 EDT Tricia Dominguez R.N. 23:10/15/24. BP: 103/59 taken on left arm, while lying. MAP: 74. HR: 96. Regular and normal rate. RR: 16. Regular and unlabored. O2 saturation: 97% on room air. Temperature: 97.7 F (oral). Pain level now 6/10. Describes the pain as aching. (Mid abdomen). -- 23:10/15/24 EDT Tricia Dominguez R.N. Measurements: 23:18 10/15/24 Wt: 89.4 kg, Ht/Wes: 65.0 in, BMI: 32.78 -- 23:10/15/24 EDT Tricia Dominguez R.N. Medications: 1 of 4 Nurse Narrative no known home medications -- 23:16 10/15/24 EDT Tricia Dominguez R.N. Allergies: no known drug allergies -- 23:10/15/24 DANAT Tricia Dominguez R.N. Problems: no known problem -- 23:10/15/24 EDT Tricia Dominguez R.N. Surgeries: Appendectomy -- 23:10/15/24 EDT Tricia Dominguez R.N. History 23:10/15/24. PAST MEDICAL HX: Immunizations: status is unknown. [...] HR: 87 bpm. O2 saturation: 96%. -- 00:10/16/24 EDT Irene Rosa R.N. 23:18 10/15/24. BP: [...] 79 bpm. O2 saturation: 96%. -- 00:10/16/24 DANAT Irene Rosa R.N. 23:27 10/15/24. HR: 83 [...] reviewed wi (more content not included)... Normal [facility] ED ORDER SHEET (CPOE ONLY)on 10-16-2024 ED ORDER SHEET (CPOE ONLY) Order Sheet Order Sheet [facility] [address] [place] [address] [id number] 10/15/2024 Patient: LUCY CROWLEY V Sex: Female : 2000 Age: 24y MEASUREMENTS: Wt: 89.4 kg, Ht/Wes: 65.0 in, BMI: 32.78 ALLERGIES: No known drug allergies MEDICATION/IV/DRIP/FL UID ORDERS Order Description Priority Entered Acknowledged Completed IV NS 0.9 %1000 mL at 999 23:29 10/15/2024 23:40 23:45 mL/hr (NOW x1) Estelle Quintanilla D.O. 10/15/2024 10/15/2024 Irene Mary, Smtiha.N. R.N. Ondansetron IVP4 mg (NOW x1) 23:31 10/15/2024 23:40 23:53 Estelle Quintanilla D.O. 10/15/2024 10/15/2024 Irene Mary R.NYasmine R.N. KetorOLAC (Toradol) IVP30 mg 23:31 10/15/2024 23:40 23:54 (NOW x1) Estelle Quintanilla D.O. 10/15/2024 10/15/2024 Irene Mary R.N. R.N. LAB ORDERS Order Description Priority Entered Acknowledged Collected Completed CBC w Diff Stat Stat 23:29 10/15/2024 23:40 10/15/2024 23:42 10/15/2024 Av Alexis Debra Schrock, 1 of 3 Order Sheet R.N. R.N. CMP Stat Stat 23:29 10/15/2024 23:40 10/15/2024 23:42 10/15/2024 Av Alexis Debra Schrock, R.NYasmine R.N. EKG - ED Stat Stat 23:29 10/15/2024 23:40 10/15/2024 23:42 10/15/2024 Av Alexis Debra Schrock, R.N. R.N. Lactate, Serum Stat Stat 23:29 10/15/2024 23:40 10/15/2024 23:42 10/15/2024 Estelle Didur, Irene Garcia R.N. R.N. Urinalysis Stat Stat 23:29 10/15/2024 23:40 10/15/2024 23:42 10/15/2024 Av Alexis Debra Schrock, R.N. R.N. Lipase Stat Stat 23:30 10/15/2024 23:40 10/15/2024 23:42 10/15/2024 Av Alexis Debra Schrock, R.N. R.N. CRP Stat Stat 23:30 10/15/2024 23:40 10/15/2024 23:43 10/15/2024 Av Alexis Debra Schrock, R.N. R.N. HCG, Qual Serum Stat Stat 23:30 10/15/2024 23:40 10/15/2024 23:42 10/15/2024 vA Alexis Debra Schrock, R.N. R.N. general surgery [...] minutes Av Alexis Debra Schrock, R.N. R.N. [employer] 23:29 10/15/2024 23:40 10/15/2024 23:42 10/15/2024 Av Alexis Debra Schrock, R.N. RYasmineNYasmine Oxygen titrate to 92% 23:29 10/15/2024 23:40 10/15/2024 23:43 10/15/2024 Av Alexis Debra Schrock, R.N. RMargarita [Electronically signed by Estelle Quintanilla D.O. (10/16/2024 03:24 EDT)] 3 of 3 Normal [facility] ED PHYSICIAN CLINICAL REPORT on 10-16-2024 ED PHYSICIAN CLINICAL REPORT Narrative Physician Clinical Narrative [address] [place] [address] [id number] 10/15/2024 23:05:00 Patient: LUCY CROWLEY V Sex: [...] here on September 24. Was transferred to [place] and had a stent placed in her gallbladder [facility] on September 25. He was 1 [...] 450 Fi (more content not included)... Normal [facility] ED SUPER BILLon 10-16-2024 ED SUPER BILL [facility] [address] [place] [address] [id number] 10/15/2024 Patient: LUCY CROWLEY V Sex: Female : 2000 Age: 24y Facility Professional Category Item Description Code Code Quantity Fee Total Drugs Normal Saline 574263 1 $0.00 $0.00 1000cc (657322) Nurse/E/M EMERGENCY 903058 1 $0.00 $0.00 DEPT VISIT HIGH SEVERITYFUNCJ (30357-36) Nurse/IV/IM/Infusions Hydration 423674 1 $0.00 $0.00 additional hour (26833) Nurse/IV/IM/Infusions IVP additional 299159 1 $0.00 $0.00 push (08819) Nurse/IV/IM/Infusions IVP initial (52739) 647212 1 $0.00 $0.00 Grand $0.00 Total Providers Estelle Quintanilla D.O. Chief Complaint 1 of 2 Superbill ABDOMINAL PAIN. Principal Diagnosis Acute right upper quadrant abdominal pain. Biliary colic. ICD-10 Codes R10.11: Right upper quadrant pain K80.50: Calculus of bile duct without cholangitis or cholecystitis without obstruction 2 of 2 Normal [facility] ED VISIT SUMMARYon ED VISIT SUMMARY Visit Overview Visit Overview [address] [place] [address] [id number] 10/15/2024 Patient: LUCY CROWLEY V Sex: Female [...] PAIN BILIARY COLIC 3 of 3 Normal [facility] ED VITALS FLOW SHEETon 10-16 ED VITALS FLOW SHEET Vitals Vital Sign Flow Sheet [address] [place] [address] [id number] 10/15/2024 Patient: LUCY CROWLEY V Sex: Female [...] 103/59 75 84 3 of 3 Normal [facility] LACTATEon 10-16-2024 Lactate [Moles/Vol] 0.5 mmol/L Normal 0.4 - 2.0 [facility] Comment on above: Performed By: #### 2 48378 #### [facility],[address] [place] [address] LIPASEon 10-16-2024 Lipase [Catalytic activity/Vol] 27.0 U/L Normal 15.0 - 78.0 [facility] Comment on above: Result Comment: *PLE ASE NOTE THAT RANGES FOR LIPASE HAVE CHANGED OF 06/07/23 DUE TO AN ASSAY UPDATE BY THE TRAPEZE PERFORMER.THE NEW ASSAY RANGE IS 6-250 U/L, WITH A REFERENCE RANGE OF 16-77 U/L. Performed By: #### 2 79861 #### [facility],[address] [place] [address] SERUM QUALon 10-16 EXTERNAL QC DONE? YES Normal [facility] Comment on above: Performed By: #### 2 02827 #### [facility],[address] [place] [address] INTERNAL QC PASS Normal [facility] Comment on above: Performed By: #### 2 76866 #### [facility],[address] [place] [address] SER Negative Normal NEGATIVE [facility] Comment on above: Performed By: #### 2 58450 #### [facility],[address] [place] [address] URINALYSISon 10-16-2024 Amorphous NONE Normal [facility] Comment on above: Performed By: #### 2 89502 #### [facility],[address] [place], [place] [id number] Bacteria NONE Normal [facility] Comment on above: Performed By: #### 2 58076 #### [facility],[address] [place], [place] [id number] Bilirubin Ql (U) Negative Normal NORMAL: NEGATIVE [facility] Comment on above: Performed By: #### 2 20313 #### [facility],[address] [place] [address] Casts NONE Normal [facility] Comment on above: Performed By: #### 2 03556 #### [facility],[address] [place] [address] Clarity (U) clear Normal NORMAL: CLEAR [facility] Comment on above: Performed By: #### 2 57156 #### [facility],[address] [place] [address]28 Color (U) yellow Normal NORMAL: YELLOW [facility] Comment on above: Performed By: #### 2 69771 #### [facility],[address] [place] [address]40 Crystals LM Nom (Urine sed) NONE Normal [facility] Comment on above: Performed By: #### 2 35982 #### [facility],[address] [place] [address] 30839 Epi Cells OCC Normal [facility] Comment on above: Performed By: #### 2 38079 #### [facility],[address] [place] [address]1623 Glucose Ql (U) NORM Normal NORMAL: NORMAL [facility] Comment on above: Performed By: #### 2 67116 #### [facility],[address] [place] [address] 33455 Hemoglobin Ql (U) 10 Abnormal NORMAL: NEGATIVE [facility] Comment on above: Performed By: #### 2 66708 #### [facility],[address] [place] [address] 91532 Ketone 15 Abnormal NORMAL: NEGATIVE [facility] Comment on above: Performed By: #### 2 43610 #### [facility],[address] [place] [address] 26733 Leukocytes Negative Normal NORMAL: NEGATIVE [facility] Comment on above: Performed By: #### 2 08380 #### [facility],[address] [place] [address] 08572 Mucous NONE Normal [facility] Comment on above: Performed By: #### 2 48454 #### [facility],[address] [place] [address]72 Nitrite Ql (U) Negative Normal NORMAL: NEGATIVE [facility] Comment on above: Performed By: #### 2 89621 #### [facility],[address] [place] [address] pH (U) 6 [pH] Normal NORMAL: 5.0-8.0 [facility] Comment on above: Performed By: #### 2 27492 #### [facility],[address] [place] [address] Protein Ql (U) Negative Normal NORMAL: NEGATIVE [facility] Comment on above: Performed By: #### 2 42039 #### [facility],[address] [place] [address] Rbc RARE Normal 0-3/hpf [facility] Comment on above: Performed By: #### 2 32371 #### [facility],[address] [place] [address] Sp Eros 1.015 Normal NORMAL: 1.010-1.030 [facility] Comment on above: Performed By: #### 2 47700 #### [facility],[address] [place] [address] Specimen Type R Normal [facility] Comment on above: Performed By: #### 2 91476 #### [facility],[address] [place] [address] Urinalysis dipstick W Reflex Microscopic panel (U) SEE BELOW Normal [facility] Comment on above: Result Comment: MICR OSCOPIC Performed By: #### 2 83044 #### [facility],[address] [place] [address] Urobilinog NORM Normal NORMAL: NORMAL [facility] Comment on above: Performed By: #### 2 71582 #### [facility],[address] [place] [address] Wbc NONE Normal 0-5/hpf [facility] Comment on above: Performed By: #### 2 49147 #### [facility],[address] [place] [address] Yeast NONE Normal [facility] Comment on above: Performed By: #### 2 31142 #### [facility],[address] [facility] [address] Gastroenterology Visit Repor ton 10-09-2024 Gastroenterology Visit Report Normal [facility] Absolute lymphocyte countOrd ered By: Radha Rosalina on 09-26-2024 Lymphocytes Auto (Unsp spec) [#/Vol] 2.03 10*3/uL 0.83-4.51 [facility] Absolute neutrophil countOrd ered By: [facility] Rosalina on 09-26-2024 Neutrophils (Bld) [#/Vol] 6.4 10*3/uL 2.0-7.7 [facility] Anion gap in Serum or Plasma Ordered By: Radha Romano on 09-26-2024 Anion gap [Moles/Vol] 9 mmol/L 5- [facility] Automated lymphocyte count a s percentage of total leukocytesOrdered By: Radha Rosalina on 09-26-2024 Lymphocytes/100 WBC Auto (Unsp spec) 22.4 % [facility] BUN/creatinine ratioOrdered By: [facility] Rosalina on 09-26-2024 Urea nitrogen/Creatinine [Mass ratio] 7.8 mg/mg Low - [facility] Basic Metabolic Profile (BMP )on 09-26-2024 BUN/CRE 7.8 RATIO Low 03-29 [facility] Comment on above: Performed By: #### L 500.2500, L100.0100, L501.2450, L500.3400 ####[facility] [address] [place], [address] Calcium [Mass/Vol] 8.1 mg/dL Normal 7.6-11.0 [facility] Comment on above: Performed By: #### L 500.2500, L100.0100, L501.2450, L500.3400 ####[facility] [address] [place], [address] Chloride [Moles/Vol] 108 mmol/L Normal 98-108 [facility] Comment on above: Performed By: #### L 500.2500, L100.0100, L501.2450, L500.3400 ####[facility] [address] [place], [address] CO2 [Moles/Vol] 21.9 mmol/L Normal 21.0-32.0 [facility] Comment on above: Performed By: #### L 500.2500, L100.0100, L501.2450, L500.3400 ####[facility] [address] [place], [address] Creatinine [Mass/Vol] 0.70 mg/dL Normal 0.70-1.20 [facility] Comment on above: Performed By: #### L 500.2500, L100.0100, L501.2450, L500.3400 ####[facility] [address] [place], [address] ECRCL 136.89 ml/min Normal 50-250 [facility] Comment on above: Performed By: #### L 500.2500, L100.0100, L501.2450, L500.3400 ####[facility] [address] [place], [address] GAP 9 Normal 5-15 [facility] Comment on above: Performed By: #### L 500.2500, L100.0100, L501.2450, L500.3400 ####[facility] [address] [place], [address] GFR/1.73 sq M.predicted among non-blacks MDRD (S/P/Bld) [Vol rate/Area] 123 mL/min/{1.73_m2} Normal >60 [facility] Comment on above: Result Comment: mL/m in/1.73m2 CKD-EPI Creatinine Equation (2020) Performed By: #### L 500.2500, L100.0100, L501.2450, L500.3400 ####[facility] [address] [place], [address] Glucose [Mass/Vol] 77 mg/dL Normal 70-99 [facility] Comment on above: Performed By: #### L 500.2500, L100.0100, L501.2450, L500.3400 ####[facility] [address] [place], [address] Potassium [Moles/Vol] 3.9 mmol/L Normal 3.3-5.1 [facility] Comment on above: Result Comment: Hemo lysis present, Results??could be affected.?? Performed By: #### L 500.2500, L100.0100, L501.2450, L500.3400 ####[facility] [address] [place], [address] Sodium [Moles/Vol] 139 mmol/L Normal 133-145 [facility] Comment on above: Performed By: #### L 500.2500, L100.0100, L501.2450, L500.3400 ####[facility] [address] [place], [address] Urea nitrogen [Mass/Vol] 5 mg/dL Normal -19 [facility] Comment on above: Performed By: #### L 500.2500, L100.0100, L501.2450, L500.3400 ####[facility] [address] [place], [address] Basophil percentageOrdered B y: Rosalina on 09-26-2024 Basophils/100 WBC (Bld) 0.4 % 0-1 [facility] Bilirubin directOrdered By: Rosalina on 09-26-2024 Bilirubin.direct [Mass/Vol] 0.66 mg/dL High 0.00-0.30 [facility] Bilirubin, totalOrdered By: White on 09-26-2024 Bilirubin [Mass/Vol] 0.99 mg/dL 0.00-1.30 [facility] CBC W/Diff, Automatedon 09-085 Absolute Lymph 2.03 X10 3/uL Normal 0.83-4.51 [facility] Comment on above: Performed By: #### L 500.2500, L100.0100, L501.2450, L500.3400 ####[facility] [address] [place], [address] Absolute Neut 6.4 X10 3/uL Normal 2.0-7.7 [facility] Comment on above: Performed By: #### L 500.2500, L100.0100, L501.2450, L500.3400 ####[facility] [address] [place], [address] Basophils/100 WBC (Bld) 0.4 % Normal 0-1 [facility] Comment on above: Performed By: #### L 500.2500, L100.0100, L501.2450, L500.3400 ####[facility] [address] [place], [address] Eosinophils/100 WBC (Bld) 1.0 % Normal 0-5 [facility] Comment on above: Performed By: #### L 500.2500, L100.0100, L501.2450, L500.3400 ####[facility] [address] [place], [address] Erythrocyte distribution width (RBC) [Ratio] 13.1 % Normal 11.6-14.6 [facility] Comment on above: Performed By: #### L 500.2500, L100.0100, L501.2450, L500.3400 ####[facility] [address] [place], [address] Hematocrit (Bld) [Volume fraction] 33.9 % Low 37-47 [facility] Comment on above: Performed By: #### L 500.2500, L100.0100, L501.2450, L500.3400 ####[facility] [address] [place], [address] Hemoglobin (Bld) [Mass/Vol] 11.4 g/dL Low 12.0-15.0 [facility] Comment on above: Performed By: #### L 500.2500, L100.0100, L501.2450, L500.3400 ####[facility] [address] [place], [address] IG% 0.800 Normal 0.0-0.9 [facility] Comment on above: Result Comment: IG% - Immature Granulocytes (promyelocytes, myelocytes andmetamyelocytes) > 1% indicates that a LEFT SHIFT is Present. Performed By: #### L 500.2500, L100.0100, L501.2450, L500.3400 ####[facility] [address] [place], [address] Lymphocytes/100 WBC (Bld) 22.4 % Normal 19-41 [facility] Comment on above: Performed By: #### L 500.2500, L100.0100, L501.2450, L500.3400 ####[facility] [address] [place], [address] MCH (RBC) [Entitic mass] 31.4 pg Normal 27.0-32.0 [facility] Comment on above: Performed By: #### L 500.2500, L100.0100, L501.2450, L500.3400 ####[facility] [address] [place], [address] MCHC (RBC) [Mass/Vol] 33.6 g/dL Normal 32-36 [facility] Comment on above: Performed By: #### L 500.2500, L100.0100, L501.2450, L500.3400 ####[facility] [address] [place], [address] MCV (RBC) [Entitic vol] 93.4 fL Normal 81-99 [facility] Comment on above: Performed By: #### L 500.2500, L100.0100, L501.2450, L500.3400 ####[facility] [address] [place], [address] Monocytes/100 WBC (Bld) 5.1 % Normal 0-10 [facility] Comment on above: Performed By: #### L 500.2500, L100.0100, L501.2450, L500.3400 ####[facility] [address] [place], [address] Neutrophils/100 WBC (Bld) 70.3 % High 47-70 [facility] Comment on above: Performed By: #### L 500.2500, L100.0100, L501.2450, L500.3400 ####[facility] [address] [place], [address] Nucleated RBC (Bld) [#/Vol] 0 10*3/uL Normal 0-5 [facility] Comment on above: Performed By: #### L 500.2500, L100.0100, L501.2450, L500.3400 ####[facility] [address] [place], [address] Platelet mean volume (Bld) [Entitic vol] 10.5 fL Normal 6.2-12.0 [facility] Comment on above: Performed By: #### L 500.2500, L100.0100, L501.2450, L500.3400 ####[facility] [address] [place], [address] Platelets (Bld) [#/Vol] 195 10*3/uL Normal 150-450 [facility] Comment on above: Performed By: #### L 500.2500, L100.0100, L501.2450, L500.3400 ####[facility] [address] [place], [address] RBC (Bld) [#/Vol] 3.63 10*6/uL Low 4.2-5.4 [facility] Comment on above: Performed By: #### L 500.2500, L100.0100, L501.2450, L500.3400 ####[facility] [address] [place], [address] RDW SD 45.0 fl High 35.1-43.9 [facility] Comment on above: Performed By: #### L 500.2500, L100.0100, L501.2450, L500.3400 ####[facility] [address] [place], [address] WBC (Bld) [#/Vol] 9.1 10*3/uL Normal 4.4-11.0 [facility] Comment on above: Performed By: #### L 500.2500, L100.0100, L501.2450, L500.3400 ####[facility] [address] [place], [address] Carbon dioxide, total [Moles /volume] in Central venous bloodOrdered By: Radha White on 09-26-2024 CO2 [Moles/Vol] 21.9 mmol/L 21.0-32.0 [facility] Chloride assayOrdered By: Fanny shah White on 09-26-2024 Chloride [Moles/Vol] 108 mmol/L 98-108 [facility] Consultation - Surgicalon Consultation - Surgical Normal [facility] Discharge Instructionon 09-08 Discharge Instruction Normal [facility] Eosinophil percentageOrdered By: White on 09-26-2024 Eosinophils/100 WBC (Bld) 1.0 % 0-5 [facility] Erythrocyte distribution wid th (RBC) [Ratio]Ordered By: White on 09-26-2024 Erythrocyte distribution width (RBC) [Entitic vol] 45.0 fL High 35.1-43.9 [facility] Erythrocyte distribution wid th ratioOrdered By: Radha Romano on 09-26-2024 Erythrocyte distribution width (RBC) [Ratio] 13.1 % 11.6-14.6 [facility] Erythrocyte distribution wid th standard deviationOrdered By: Radha Romano on 09-26-2024 Erythrocyte distribution width (RBC) [Ratio] 45.0 fl High 35.1-43.9 [facility] Estimation of creatinine clarice aranceOrdered By: Radha Romano on 09-26-2024 Estimated Creatinine Clearance Calc 136.89 ml/min 50-250 [facility] GFR/1.73 sq M.predicted nneka g non-blacks MDRD (S/P/Bld) [Vol rate/Area]Ordered By: Radha Romano on 09-26-2024 Estimated GFR (MDRD) Non-Af Amer 123 >60 [facility] Comment on above: mL/min/1.73m2 CKD-EP I Creatinine Equation (2020) Glomerular filtration rate ( GFR) estimation/1.73 sq m using serum, plasma, or whole bOrdered By: Radha Romano 09-26-2024 GFR/1.73 sq M.predicted among non-blacks MDRD (S/P/Bld) [Vol rate/Area] 123 mL/min/{1.73_m2} >60 [facility] Comment on above: mL/min/1.73m2 CKD-EP I Creatinine Equation (2020) Hematocrit Auto (Bld) [Volum e fraction]Ordered By: Radha Romano 09-26-2024 Hematocrit (Bld) [Volume fraction] 33.9 % Low 37-47 [facility] Hemoglobin measurementOrdere d By: Radha Romano 09-26-2024 Hemoglobin (Bld) [Mass/Vol] 11.4 g/dL Low 12.0-15.0 [facility] Immature granulocytes/100 WB C Auto (Bld)Ordered By: Radha Romano 09-26-2024 Immature granulocytes/100 WBC (Bld) 0.800 % 0.0-0.9 [facility] Comment on above: IG% - Immature Granu locytes (promyelocytes, myelocytes and metamyelocytes) > 1% indicates that a LEFT SHIFT is Present. Laboratory - Chemistry and C hemistry - challengeOrdered By: Radha Romano on 09-26-2024 AST [Catalytic activity/Vol] 51 U/L High <32 [facility] Lipaseon 09-26-2024 Lipase [Catalytic activity/Vol] 1358 U/L High 13-75 [facility] Comment on above: Result Comment: Nicholas sood note:LIPASE revised reference range effective 22.New Lipase methodology. Expected to produce lower valuesthan the previous assay method.NEW Reference Range: 13 - 75 U/L Performed By: #### L 500.2500, L100.0100, L501.2450, L500.3400 ####[facility] [address] [place], [address] Lipase measurementOrdered By : Radha Romano on 09-26-2024 Lipase [Catalytic activity/Vol] 1358 U/L High 13-75 [facility] Comment on above: Please note:LIPASE r evised reference range effective 22. New Lipase methodology. Expected to produce lower values than the previous assay method. NEW Reference Range: 13 - 75 U/L Liver Profileon 09-26-2024 Albumin [Mass/Vol] 3.0 g/dL Low 3.5-5.0 [facility] Comment on above: Performed By: #### L 500.2500, L100.0100, L501.2450, L500.3400 ####[facility] [address] [place], [address] ALK PHOS 130 U/L High 35-104 [facility] Comment on above: Performed By: #### L 500.2500, L100.0100, L501.2450, L500.3400 ####[facility] [address] [place], [address] ALT [Catalytic activity/Vol] 70 U/L High <=34 [facility] Comment on above: Performed By: #### L 500.2500, L100.0100, L501.2450, L500.3400 ####[facility] [address] [place], [address] AST [Catalytic activity/Vol] 51 U/L High <=31 [facility] Comment on above: Performed By: #### L 500.2500, L100.0100, L501.2450, L500.3400 ####[facility] [address] [place], [address] Bilirubin [Mass/Vol] 0.99 mg/dL Normal 0.00-1.30 [facility] Comment on above: Performed By: #### L 500.2500, L100.0100, L501.2450, L500.3400 ####[facility] [address] [place], [address] Bilirubin.direct [Mass/Vol] 0.66 mg/dL High 0.00-0.30 [facility] Comment on above: Performed By: #### L 500.2500, L100.0100, L501.2450, L500.3400 ####[facility] [address] [place], [address] Globulin (S) [Mass/Vol] 2.9 g/dL Normal 2.2-4.2 [facility] Comment on above: Performed By: #### L 500.2500, L100.0100, L501.2450, L500.3400 ####[facility] [address] [place], [address] T PROT 5.9 g/dL Normal 5.9-8.4 [facility] Comment on above: Performed By: #### L 500.2500, L100.0100, L501.2450, L500.3400 ####[facility] [address] [place], [address] Lymphocytes Auto (Unsp spec) [#/Vol]Ordered By: Radha Romano on 09-26-2024 Lymphocytes (Bld) [#/Vol] 2.03 10*3/uL 0.83-4.51 [facility] Lymphocytes/100 WBC Auto (Un sp spec)Ordered By: Radha Romano on 09-26-2024 Lymphocytes/100 WBC (Bld) 22.4 % 19-41 [facility] MCV (mean corpuscular volume ) determinationOrdered By: Radha Romano on 09-26-2024 MCV (RBC) [Entitic vol] 93.4 fL 81-99 [facility] Mean corpuscular hemoglobin (MCH) determinationOrdered By: Rosalina on 09-26-2024 MCH (RBC) [Entitic mass] 31.4 pg 27.0-32.0 [facility] Mean corpuscular hemoglobin concentration (MCHC) determinationOrdered By: Radha Rosalina on 09-26-2024 MCHC (RBC) [Mass/Vol] 33.6 g/dL 32-36 [facility] Mean platelet volume determi nationOrdered By: Radha Rosalina on 09-26-2024 Platelet mean volume (Bld) [Entitic vol] 10.5 fL 6.2-12.0 [facility] Monocyte percentageOrdered B y: Rosalina on 09-26-2024 Monocytes/100 WBC (Bld) 5.1 % 0-10 [facility] Neutrophil percentageOrdered By: Rosalina on 09-26-2024 Neutrophils/100 WBC (Bld) 70.3 % High 47-70 [facility] Nucleated red blood cell per centageOrdered By: Rosalina on 09-26-2024 Nucleated RBC/100 WBC (Bld) [Ratio] 0 % 0-5 [facility] Platelet countOrdered By: Fanny shah Rosalina on 09-26-2024 Platelets (Bld) [#/Vol] 195 10*3/uL 150-450 [facility] Potassium (Unsp spec) [Mass/ Vol]Ordered By: Radha Romano on 09-26-2024 Potassium [Moles/Vol] 3.9 mmol/L 3.3-5.1 [facility] Comment on above: Hemolysis present, R esults could be affected. Potassium measurement (mass/ volume)Ordered By: Radha Romano on 09-26-2024 Potassium (Unsp spec) [Mass/Vol] 3.9 mmol/L 3.3-5.1 [facility] Comment on above: Hemolysis present, R esults could be affected. RBC Auto (Bld) [#/Vol]Ordere d By: Radha Romano on 09-26-2024 RBC (Bld) [#/Vol] 3.63 10*6/uL Low 4.2-5.4 [facility] Serum creatinine measurement (mass/volume)Ordered By: Radha Romano on 09-26-2024 Creatinine [Mass/Vol] 0.70 mg/dL 0.70-1.20 [facility] Serum globulin measurementOr dered By: Radha Romano on 09-26-2024 Globulin (S) [Mass/Vol] 2.9 g/dL 2.2-4.2 [facility] Serum glucose measurement (m ass/volume)Ordered By: Radha Romano on 09-26-2024 Glucose [Mass/Vol] 77 mg/dL 70-99 [facility] Serum or plasma alanine allan otransferase (ALT) measurementOrdered By: Radha Romano on 09-26-2024 ALT [Catalytic activity/Vol] 70 U/L High <35 [facility] Serum or plasma albumin jeimy urement (mass/volume)Ordered By: Radha Romano on 09-26-2024 Albumin [Mass/Vol] 3.0 g/dL Low 3.5-5.0 [facility] Serum or plasma alkaline chaka sphatase measurementOrdered By: Radha Romano on 09-26-2024 ALP [Catalytic activity/Vol] 130 U/L High 35-104 [facility] Serum or plasma calcium jeimy urement (mass/volume)Ordered By: Radha Romano on 09-26-2024 Calcium [Mass/Vol] 8.1 mg/dL 7.6-11.0 [facility] Serum or plasma urea nitroge n measurement (mass/volume)Ordered By: Radha Romano on 09-26-2024 Urea nitrogen [Mass/Vol] 5 mg/dL 4-19 [facility] Sodium levelOrdered By: Autu mn Rosalina on 09-26-2024 Sodium [Moles/Vol] 139 mmol/L 133-145 [facility] Total proteinOrdered By: Aut umn Rosalina on 09-26-2024 Protein [Mass/Vol] 5.9 g/dL 5.9-8.4 [facility] White blood cell (WBC) count Ordered By: Radha Romano on 09-26-2024 WBC (Bld) [#/Vol] 9.1 10*3/uL 4.4-11.0 [facility] AMYLASEon 09-25-2024 Amylase [Catalytic activity/Vol] 37 U/L Normal 25 - 115 [email or web address].; [email or web address] Work Phone: Comment on above: Performed By: #### 2 82512 #### [facility] [address] Absolute neutrophil countOrd ered By: Florentin Zamudio on 09-25-2024 Neutrophils (Bld) [#/Vol] 8.0 10*3/uL High 2.0-7.7 [facility] Anion gap in Serum or Plasma Ordered By: Florentin Zamudio on 09-25-2024 Anion gap [Moles/Vol] 10 mmol/L 5-15 [facility] BUN/creatinine ratioOrdered By: Florentinsylvia Zamudio on 09-25-2024 Urea nitrogen/Creatinine [Mass ratio] 6.2 mg/mg Low 10-20 [facility] Basic Metabolic Profile (BMP )on 09-25-2024 BUN/CRE 6.2 RATIO Low 10-20 [facility] Comment on above: Performed By: #### L 501.2450, L503.6005, L500.2500, L500.3400, L100.0100 ####[facility] [address] [place], [address] Calcium [Mass/Vol] 9.0 mg/dL Normal 7.6-11.0 [facility] Comment on above: Performed By: #### L 501.2450, L503.6005, L500.2500, L500.3400, L100.0100 ####[facility] [address] [place], [address] Chloride [Moles/Vol] 104 mmol/L Normal 98-108 [facility] Comment on above: Performed By: #### L 501.2450, L503.6005, L500.2500, L500.3400, L100.0100 ####[facility] [address] [place], [address] CO2 [Moles/Vol] 22.6 mmol/L Normal 21.0-32.0 [facility] Comment on above: Performed By: #### L 501.2450, L503.6005, L500.2500, L500.3400, L100.0100 ####[facility] [address] [place], [address] Creatinine [Mass/Vol] 0.70 mg/dL Normal 0.70-1.20 [facility] Comment on above: Performed By: #### L 501.2450, L503.6005, L500.2500, L500.3400, L100.0100 ####[facility] [address] [place], [address] GAP 10 Normal 5-15 [facility] Comment on above: Performed By: #### L 501.2450, L503.6005, L500.2500, L500.3400, L100.0100 ####[facility] [address] [place], [address] GFR/1.73 sq M.predicted among non-blacks MDRD (S/P/Bld) [Vol rate/Area] 123 mL/min/{1.73_m2} Normal >60 [facility] Comment on above: Result Comment: mL/m in/1.73m2 CKD-EPI Creatinine Equation (2020) Performed By: #### L 501.2450, L503.6005, L500.2500, L500.3400, L100.0100 ####[facility] [address] [place], [address] Glucose [Mass/Vol] 108 mg/dL High 70-99 [facility] Comment on above: Performed By: #### L 501.2450, L503.6005, L500.2500, L500.3400, L100.0100 ####[facility] [address] [place], [address] Potassium [Moles/Vol] 3.6 mmol/L Normal 3.3-5.1 [facility] Comment on above: Performed By: #### L 501.2450, L503.6005, L500.2500, L500.3400, L100.0100 ####[facility] [address] [place], [address] Sodium [Moles/Vol] 137 mmol/L Normal 133-145 [facility] Comment on above: Performed By: #### L 501.2450, L503.6005, L500.2500, L500.3400, L100.0100 ####[facility] [address] [place], [address] Urea nitrogen [Mass/Vol] 4 mg/dL Normal 4-19 [facility] Comment on above: Performed By: #### L 501.2450, L503.6005, L500.2500, L500.3400, L100.0100 ####[facility] [address] [place], [address] Basophil percentageOrdered B y: Florentin Zamudio on 09-25-2024 Basophils/100 WBC (Bld) 0.4 % 0-1 [facility] Bilirubin directOrdered By: Florentin Zamudio on 09-25-2024 Bilirubin.direct [Mass/Vol] 3.02 mg/dL High 0.00-0.30 [facility] Bilirubin, totalOrdered By: Florentin Zamudio on 09-25-2024 Bilirubin [Mass/Vol] 4.12 mg/dL High 0.00-1.30 [facility] CBC + DIFFon 09-25-2024 Baso # 0.02 x10EE3/UL Normal 0.00 - 0.10 [facility] Comment on above: Performed By: #### 2 26343 #### [facility],[address] [place], [place] [address] Basophils/100 WBC (Bld) 0.2 % Normal 0.0 - 2.0 H [facility]; [facility] Work Phone: Comment on above: Performed By: #### 2 28597 #### [place] [address] CBC + DIFF Normal [facility] Comment on above: Result Comment: CBC- COMPLETE BLOOD COUNT Performed By: #### 2 98721 #### [place] [address] EO # 0.06 x10EE3/UL Normal 0.00 - 0.50 [facility] Comment on above: Performed By: #### 2 48796 #### [place] [id number] Eosinophils/100 WBC (Bld) 0.6 % Normal 0.0 - 7.0 [facility]; [facility], [facility] Work Phone: Comment on above: Performed By: #### 2 19024 #### [place] [phone] Erythrocyte distribution width (RBC) [Ratio] 12.7 % Normal 12.0 - 15.6 [facility]; [facility] Work Phone: Comment on above: Performed By: #### 2 01657 #### [address] [address] Hematocrit (Bld) [Volume fraction] 32.8 % Low 34.0 - 46.0 [facility]; [facility], [facility] Work Phone: Comment on above: Performed By: #### 2 60697 #### [place] [phone] Hemoglobin (Bld) [Mass/Vol] 11.4 g/dL Low 12.0 - 16.0 [facility].; [facility]. Work Phone: Comment on above: Performed By: #### 2 40536 #### [address] [address] Lymph # 1.71 x10EE3/UL Normal 0.80 - 2.80 [facility] Comment on above: Performed By: #### 2 04782 #### [address] [address] Lymphocytes/100 WBC (Bld) 17.1 % Low 20.0 - 45.0 [facility]; [facility], [facility]. Work Phone: Comment on above: Performed By: #### 2 02062 #### [address] [address] MANUAL DIFF N/A Normal [facility]; [facility], [facility]. Work Phone: Comment on above: Performed By: #### 2 44174 #### [address] [address] MCH (RBC) [Entitic mass] 32 pg Normal 27 - 33 [facility]; [facility], [place]. Work Phone: Comment on above: Performed By: #### 2 99932 #### [address] [address] MCHC 35 X10 3 Normal 32 - 36 [facility] Comment on above: Performed By: #### 2 30167 #### [address] [address] MCV (RBC) [Entitic vol] 92 fL Normal 80 - 99 H [facility]; [facility], [facility] Work Phone: Comment on above: Performed By: #### 2 19457 #### [facility],[address] [place] [address] [place] # 0.65 x10EE3/UL Normal 0.20 - 1.00 [facility] Comment on above: Performed By: #### 2 66455 #### [facility],[address] [place] [address] MONOS % 6.5 % Normal 0.0 - 10.0 [facility] Comment on above: Performed By: #### 2 09647 #### [facility],[address] [place] [address] Morphology Cy (Bld) [Interp] N/A Normal [facility].; [facility]. Work Phone: Comment on above: Performed By: #### 2 60251 #### [address] [address] Neut # 7.54 x10EE3/UL High 1.50 - 7.10 [facility] Comment on above: Performed By: #### 2 89513 #### [address] [address] Neutrophils/100 WBC (Bld) 75.5 % Normal 46.0 - 76.0 [facility].; [place] [employer] [facility]. Work Phone: Comment on above: Performed By: #### 2 23382 #### [facility],[address] [place] [address] PLATELET 184 x10EE3/UL Normal 150 - 450 [facility] Comment on above: Performed By: #### 2 96885 #### [address] [address] Platelet mean volume (Bld) [Entitic vol] 8.4 fL Normal 6.6 - 10.5 [email or web address].; [place] [employer] [facility]. Work Phone: Comment on above: Result Comment: AUTO MATED DIFFERENTIAL Performed By: #### 2 33818 #### [facility],[address] [place] [address] RBC 3.55 x 10EE6/UL Low 4.10 - 5.30 [facility] Comment on above: Performed By: #### 2 79156 #### [facility],[address] [place] [address] WBC 10.0 x 10EE3/UL Normal 4.5 - 10.8 [facility] Comment on above: Performed By: #### 2 10278 #### [facility],[address] [place] [address] CBC W/Diff, Automatedon 09-08 Absolute Lymph 1.62 X10 3/uL Normal 0.83-4.51 [facility] Comment on above: Performed By: #### L 501.2450, L503.6005, L500.2500, L500.3400, L100.0100 ####[facility] [address] [place], [address] Absolute Neut 8.0 X10 3/uL High 2.0-7.7 [facility] Comment on above: Performed By: #### L 501.2450, L503.6005, L500.2500, L500.3400, L100.0100 ####[facility] [address] [place], [address] Basophils/100 WBC (Bld) 0.4 % Normal 0-1 [facility] Comment on above: Performed By: #### L 501.2450, L503.6005, L500.2500, L500.3400, L100.0100 ####[facility] [address] [place], [address] Eosinophils/100 WBC (Bld) 0.4 % Normal 0-5 [facility] Comment on above: Performed By: #### L 501.2450, L503.6005, L500.2500, L500.3400, L100.0100 ####[facility] [address] [place], [address] Erythrocyte distribution width (RBC) [Ratio] 13.0 % Normal 11.6-14.6 [facility] Comment on above: Performed By: #### L 501.2450, L503.6005, L500.2500, L500.3400, L100.0100 ####[facility] [address] [place], [address] Hematocrit (Bld) [Volume fraction] 34.0 % Low 37-47 [facility] Comment on above: Performed By: #### L 501.2450, L503.6005, L500.2500, L500.3400, L100.0100 ####[facility] [address] [place], [address] Hemoglobin (Bld) [Mass/Vol] 11.7 g/dL Low 12.0-15.0 [facility] Comment on above: Performed By: #### L 501.2450, L503.6005, L500.2500, L500.3400, L100.0100 ####[facility] [address] [place], [address] IG% 0.900 Normal 0.0-0.9 [facility] Comment on above: Result Comment: IG% - Immature Granulocytes (promyelocytes, myelocytes andmetamyelocytes) > 1% indicates that a LEFT SHIFT is Present. Performed By: #### L 501.2450, L503.6005, L500.2500, L500.3400, L100.0100 ####[facility] [address] [place], [address] Lymphocytes/100 WBC (Bld) 15.8 % Low 19-41 [facility] Comment on above: Performed By: #### L 501.2450, L503.6005, L500.2500, L500.3400, L100.0100 ####[facility] [address] [place], [address] MCH (RBC) [Entitic mass] 31.2 pg Normal 27.0-32.0 [facility] Comment on above: Performed By: #### L 501.2450, L503.6005, L500.2500, L500.3400, L100.0100 ####[facility] [address] [place], [address] MCHC (RBC) [Mass/Vol] 34.4 g/dL Normal 32-36 [facility] Comment on above: Performed By: #### L 501.2450, L503.6005, L500.2500, L500.3400, L100.0100 ####[facility] [address] [place], [address] MCV (RBC) [Entitic vol] 90.7 fL Normal 81-99 [facility] Comment on above: Performed By: #### L 501.2450, L503.6005, L500.2500, L500.3400, L100.0100 ####[facility] [address] [place], [address] Monocytes/100 WBC (Bld) 4.9 % Normal 0-10 [facility] Comment on above: Performed By: #### L 501.2450, L503.6005, L500.2500, L500.3400, L100.0100 ####[facility] [address] [place], [address] Neutrophils/100 WBC (Bld) 77.6 % High 47-70 [facility] Comment on above: Performed By: #### L 501.2450, L503.6005, L500.2500, L500.3400, L100.0100 ####[facility] [address] [place], [address] Nucleated RBC (Bld) [#/Vol] 0 10*3/uL Normal 0-5 [facility] Comment on above: Performed By: #### L 501.2450, L503.6005, L500.2500, L500.3400, L100.0100 ####[facility] [address] [place], [address] Platelet mean volume (Bld) [Entitic vol] 10.4 fL Normal 6.2-12.0 [facility] Comment on above: Performed By: #### L 501.2450, L503.6005, L500.2500, L500.3400, L100.0100 ####[facility] [address] [place], [address] Platelets (Bld) [#/Vol] 177 10*3/uL Normal 150-450 [facility] Comment on above: Performed By: #### L 501.2450, L503.6005, L500.2500, L500.3400, L100.0100 ####[facility] [address] [place], [address] RBC (Bld) [#/Vol] 3.75 10*6/uL Low 4.2-5.4 [facility] Comment on above: Performed By: #### L 501.2450, L503.6005, L500.2500, L500.3400, L100.0100 ####[facility] [address] [place], [address] RDW SD 42.6 fl Normal 35.1-43.9 [facility] Comment on above: Performed By: #### L 501.2450, L503.6005, L500.2500, L500.3400, L100.0100 ####[facility] [address] [place], [address] WBC (Bld) [#/Vol] 10.2 10*3/uL Normal 4.4-11.0 [facility] Comment on above: Performed By: #### L 501.5040, L503.6005, L500.2500, L500.3400, L100.0100 ####[facility] [address] [place], [address] CMP with eGFRon 09-25-2024 AGE 24 years Normal [facility] Comment on above: Performed By: #### 2 52625 #### [facility],[address] [place] [address] Albumin [Mass/Vol] 2.3 g/dL Low 3.4 - 5.0 [facility].; [facility], [facility] Work Phone: Comment on above: Performed By: #### 2 91629 #### [facility],[address] [place] [address] Albumin/Globulin [Mass ratio] 0.7 {ratio} Low 0.9 - 1.6 [facility] Comment on above: Performed By: #### 2 83235 #### [facility],[address] [place] [address] ALK PHOS 133 U/L High 46 - 116 [facility] Comment on above: Performed By: #### 2 90211 #### [address] [address] ALT [Catalytic activity/Vol] 97 U/L High 16 - 63 [facility].; [facility], [facility]. Work Phone: Comment on above: Performed By: #### 2 70896 #### [facility],[address] [place] [address] Anion gap [Moles/Vol] 12 mmol/L Normal 10 - 20 [facility].; [facility], [facility]. Work Phone: Comment on above: Performed By: #### 2 09397 #### [facility],[address] [place] [address] AST [Catalytic activity/Vol] 69 U/L High 13 - 39 [facility], [facility].; [employer] [place]. Work Phone: Comment on above: Performed By: #### 2 90355 #### [facility],[address] [place] [address] B/C RATIO 13 ratio Normal 0 - 30 [facility] Comment on above: Performed By: #### 2 23509 #### [facility],[address] [place] [address] Bilirubin [Mass/Vol] 4.1 mg/dL High 0.2 - 1.0 [facility], [facility].; [employer] Work Phone: Comment on above: Performed By: #### 2 30637 #### [facility],[address] [place] [address] Calcium [Mass/Vol] 8.6 mg/dL Normal 8.5 - 10.1 [facility], [facility].; [employer], [place]. Work Phone: Comment on above: Performed By: #### 2 05426 #### [facility],[address] [place] [address] Chloride [Moles/Vol] 106 mmol/L Normal 98 - 107 [facility], [facility].; [employer], [place]. Work Phone: Comment on above: Performed By: #### 2 28822 #### [facility],[address] [place] [address] CMP with eGFR Normal [facility] Comment on above: Result Comment: COMP REHENSIVE METABOLIC PANEL Performed By: #### 2 93140 #### [address] [address] CO2 [Moles/Vol] 26.0 mmol/L Normal 21.0 - 32.0 [facility], [facility].; [facility]. Work Phone: Comment on above: Performed By: #### 2 93836 #### [facility],[address] [place] [address] Creatinine [Mass/Vol] 0.55 mg/dL Normal 0.55 - 1.[address] [facility].; [facility] Work Phone: Comment on above: Performed By: #### 2 26746 #### [facility],[address] [place] [address] GFR/1.73 sq M.predicted among non-blacks MDRD (S/P/Bld) [Vol rate/Area] mL/min/{1.73_m2} Normal 60 - 999 [facility] Comment on above: Performed By: #### 2 79203 #### [address] [address] Result Comment: ACCO RDING TO THE NATIONAL KIDNEY DISEASE EDUCATION PROGRAM(NKDE), A NORMAL eGFR IS A VALUE GREATER THAN OR EQUAL TO 60 ML/MIN/1.73 SQ METERS. CHRONIC KIDNEY DISEASE: <60mL/MIN/1.73 SQ METERS KIDNEY FAILURE: <15mL/MIN/1.73 SQ METERS THIS TEST SHOULD ONLY BE USED FOR PATIENTS 18 YEARS OF AGE AND OLDER. Globulin (S) [Mass/Vol] 3.5 g/dL Normal 1.5 - 3.8 H [facility]; [facility] Work Phone: Comment on above: Performed By: #### 2 61835 #### [facility],[address] [place] [address] Glucose [Mass/Vol] 76 mg/dL Normal 74 - 106 [facility]; [facility]. Work Phone: Comment on above: Performed By: #### 2 43026 #### [address] [address] Potassium [Moles/Vol] 3.8 mmol/L Normal 3.5 - 5.1 [facility], [facility].; [facility], [facility]. Work Phone: Comment on above: Performed By: #### 2 72581 #### [facility],[address] [place], [place] [address] Protein [Mass/Vol] 5.8 g/dL Low 6.4 - 8.2 [facility] Work Phone: Comment on above: Performed By: #### 2 75977 #### [place] [address] Sodium [Moles/Vol] 140 mmol/L Normal 136 - 145 [facility], [facility].; [facility] Work Phone: Comment on above: Performed By: #### 2 61309 #### [address] [address] Urea nitrogen [Mass/Vol] 7 mg/dL Normal 7 - 18 [facility].; [facility], [facility]. Work Phone: Comment on above: Performed By: #### 2 67676 #### [address] [address] AGE 24 years Normal [facility] Comment on above: Performed By: #### 2 13986 #### [facility],[address] [place] [address] Albumin [Mass/Vol] 2.7 g/dL Low 3.4 - 5.0 [facility], [facility].; [facility], [facility]. Work Phone: Comment on above: Performed By: #### 2 76591 #### [address] [address] Albumin/Globulin [Mass ratio] 0.7 {ratio} Low 0.9 - 1.6 [facility] Comment on above: Performed By: #### 2 83888 #### [facility],[address] [place] [address] ALK PHOS 156 U/L High 46 - 116 [facility] Comment on above: Performed By: #### 2 29608 #### [facility],[address] [place] [address]682 ALT [Catalytic activity/Vol] 116 U/L High 16 - 63 [facility].; [facility]. Work Phone: Comment on above: Performed By: #### 2 34574 #### [facility],[address] [place] [address] Anion gap [Moles/Vol] 14 mmol/L Normal 10 - 20 [facility].; [facility] Work Phone: Comment on above: Performed By: #### 2 64468 #### [facility],[address] [place] [address]841 AST [Catalytic activity/Vol] 82 U/L High 13 - 39 [facility]; [facility]. Work Phone: Comment on above: Performed By: #### 2 28458 #### [address] [address] B/C RATIO 11 ratio Normal 0 - 30 [facility] Comment on above: Performed By: #### 2 16324 #### [facility],[address] [place] [address] Bilirubin [Mass/Vol] 4.2 mg/dL High 0.2 - 1.0 [facility].; [facility] Work Phone: Comment on above: Performed By: #### 2 61656 #### [facility],[address] [place] [address] Calcium [Mass/Vol] 8.8 mg/dL Normal 8.5 - 10.1 [facility].; [facility]. Work Phone: Comment on above: Performed By: #### 2 41859 #### [facility],[address] [place] [address] Chloride [Moles/Vol] 101 mmol/L Normal 98 - 107 [facility].; [facility]. Work Phone: Comment on above: Performed By: #### 2 89736 #### [facility],[address] [place] [address]149 CMP with eGFR Normal [facility] Comment on above: Result Comment: COMP REHENSIVE METABOLIC PANEL Performed By: #### 2 37579 #### [facility],[address] [place] [address]372 CO2 [Moles/Vol] 24.2 mmol/L Normal 21.0 - 32.0 [facility]; [place] [employer] [facility]. Work Phone: Comment on above: Performed By: #### 2 14261 #### [facility],[address] [place] [address]78 Creatinine [Mass/Vol] 0.64 mg/dL Normal 0.55 - 1.02 [facility].; [facility], [place]. Work Phone: Comment on above: Performed By: #### 2 60402 #### [facility],[address] [place] [address] GFR/1.73 sq M.predicted among non-blacks MDRD (S/P/Bld) [Vol rate/Area] mL/min/{1.73_m2} Normal 60 - 999 [facility] Comment on above: Performed By: #### 2 83675 #### [facility],[address] [place] [address] Result Comment: ACCO RDING TO THE NATIONAL KIDNEY DISEASE EDUCATION PROGRAM(NKDE), A NORMAL eGFR IS A VALUE GREATER THAN OR EQUAL TO 60 ML/MIN/1.73 SQ METERS. CHRONIC KIDNEY DISEASE: <60mL/MIN/1.73 SQ METERS KIDNEY FAILURE: <15mL/MIN/1.73 SQ METERS THIS TEST SHOULD ONLY BE USED FOR PATIENTS 18 YEARS OF AGE AND OLDER. Globulin (S) [Mass/Vol] 3.8 g/dL Normal 1.5 - 3.8 H [facility].; [facility], [facility] Work Phone: Comment on above: Performed By: #### 2 16646 #### [address] [address] Glucose [Mass/Vol] 111 mg/dL High 74 - 106 [facility]; [facility], [facility] Work Phone: Comment on above: Performed By: #### 2 13653 #### [address] [address] Potassium [Moles/Vol] 3.4 mmol/L Low 3.5 - 5.1 [facility].; [facility], [facility]. Work Phone: Comment on above: Performed By: #### 2 29018 #### [address] [address] Protein [Mass/Vol] 6.5 g/dL Normal 6.4 - 8.2 [facility].; [facility], [facility]. Work Phone: Comment on above: Performed By: #### 2 49634 #### [address] [address] Sodium [Moles/Vol] 136 mmol/L Normal 136 - 145 [facility].; [facility], [facility]. Work Phone: Comment on above: Performed By: #### 2 [id number] #### [address] [address] Carbon dioxide, total [Moles /volume] in Central venous bloodOrdered By: Florentin Zamudio on 09-25-2024 CO2 [Moles/Vol] 22.6 mmol/L 21.0-32.0 [facility] Chloride assayOrdered By: Roge Zamudio on 09-25-2024 Chloride [Moles/Vol] 104 mmol/L 98-108 [facility] ERCP Biliary/Pancreason 09-08 ERCP Biliary/Pancreas Normal [facility] ERCP Reporton 09-25-2024 ERCP Report Normal [facility] Emergency Department Summary on 09-25-2024 Emergency Department Summary Normal [facility] Eosinophil percentageOrdered By: Florentin Zamudio on 09-25-2024 Eosinophils/100 WBC (Bld) 0.4 % 0-5 [facility] Erythrocyte distribution wid th (RBC) [Ratio]Ordered By: Florentin Zamudio on 09-25-2024 Erythrocyte distribution width (RBC) [Entitic vol] 42.6 fL 35.1-43.9 [facility] Erythrocyte distribution wid th ratioOrdered By: Florentin Zamudio on 09-25-2024 Erythrocyte distribution width (RBC) [Ratio] 13.0 % 11.6-14.6 [facility] GFR/1.73 sq M.predicted nneka g non-blacks MDRD (S/P/Bld) [Vol rate/Area]Ordered By: Florentin Zamudio on 09-25-2024 Estimated GFR (MDRD) Non-Af Amer 123 >60 [facility] Comment on above: mL/min/1.73m2 CKD-EP I Creatinine Equation (2020) H AND P Exam - Hospital[place] 09-25-2024 H&P Exam - Hospitalist Normal [facility] Hematocrit Auto (Bld) [Volum e fraction]Ordered By: Florentin Zamudio on 09-25-2024 Hematocrit (Bld) [Volume fraction] 34.0 % Low 37-47 [facility] Hemoglobin measurementOrdere d By: Florentin Zamudio on 09-25-2024 Hemoglobin (Bld) [Mass/Vol] 11.7 g/dL Low 12.0-15.0 [facility] Immature granulocytes/100 WB C Auto (Bld)Ordered By: Florentin Zamudio on 09-25-2024 Immature granulocytes/100 WBC (Bld) 0.900 % 0.0-0.9 [facility] Comment on above: IG% - Immature Granu locytes (promyelocytes, myelocytes and metamyelocytes) > 1% indicates that a LEFT SHIFT is Present. LIPASEon 09-25-2024 Lipase [Catalytic activity/Vol] 23.0 U/L Normal 15.0 - 78.0 [facility] [email or web address].; [employer] Work Phone: Comment on above: Result Comment: *PLE ASE NOTE THAT RANGES FOR LIPASE HAVE CHANGED OF 06/07/23 DUE TO AN ASSAY UPDATE BY THE TRAPEZE PERFORMER.THE NEW ASSAY RANGE IS 6-250 U/L, WITH A REFERENCE RANGE OF 16-77 U/L. Performed By: #### 2 [id number] #### [facility],[address] [place] [address] Laboratory - Chemistry and C hemistry - challengeOrdered By: Florentin Zamudio on 09-25-2024 AST [Catalytic activity/Vol] 74 U/L High <32 [facility] Laboratory - Chemistry and C hemistry - challengeon 09-25-2024 Albumin [Mass/Vol] 0.7 g/dL Abnormal 0.9 - 1.6 [email or web address].; [employer] Work Phone: ALP [Catalytic activity/Vol] 156 U/L Abnormal 46 - 116 U/L [employer].; [employer] Work Phone: ALP [Catalytic activity/Vol] 133 U/L Abnormal 46 - 116 U/L [employer] [facility].; [employer]. Work Phone: Comprehensive metabolic 2000 panel CMP with eGFR Normal [employer]; [employer] Work Phone: GFR/1.73 sq M.predicted among blacks MDRD (S/P/Bld) [Vol rate/Area] mL/min/{1.73_m2} Normal 60 - 999 {ML/MINUTE} [facility].; [employer]. Work Phone: GFR/1.73 sq M.predicted MDRD (S/P/Bld) [Vol rate/Area] mL/min/{1.73_m2} Normal 60 - 999 {ML/MINUTE} [facility].; [employer]. Work Phone: Urea nitrogen/Creatinine [Mass ratio] 11 {ratio} Normal 0 - 30 {ratio} [facility].; [employer]. Work Phone: Urea nitrogen/Creatinine [Mass ratio] 13 {ratio} Normal 0 - 30 {ratio} [place] [employer]. Work Phone: Laboratory - Hematology and Cell countson 09-25-2024 Basophils (Bld) [#/Vol] 0.02 {3/UL} Normal 0.00 - 0.10 {3/UL} [place] [employer] [facility].; [employer]. Work Phone: CBC W Auto Differential panel (Bld) CBC + DIFF Normal [place] [employer]; [employer]. Work Phone: Eosinophils (Bld) [#/Vol] 0.06 {3/UL} Normal 0.00 - 0.50 {3/UL} [employer].; [employer]. Work Phone: Lymphocytes (Bld) [#/Vol] 1.71 {3/UL} Normal 0.80 - 2.80 {3/UL} [employer].; [employer]. Work Phone: MCHC (RBC) [Mass/Vol] 35 {X10_3} Normal 32 - 3 6 {X10_3} [place] [employer]. Work Phone: Monocytes (Bld) [#/Vol] 0.65 {3/UL} Normal 0.20 - 1.00 {3/UL} [place] [employer] [facility].; [employer]. Work Phone: Monocytes/100 WBC (Bld) 6.5 % Normal 0.0 - 10.0 % [place] [employer] [facility].; [employer]. Work Phone: Neutrophils (Bld) [#/Vol] 7.54 {3/UL} Abnormal 1.50 - 7.10 {3/UL} [employer].; [employer]. Work Phone: Platelets (Bld) [#/Vol] 184 {3/UL} Normal 150 - 450 {3/UL} [place] [employer]. Work Phone: RBC (Bld) [#/Vol] 3.55 {6/UL} Abnormal 4.10 - 5.3 0 {6/UL} [employer].; [employer] Work Phone: WBC (Bld) [#/Vol] 10.0 {3/UL} Normal 4.5 - 10.8 {3/UL} [place] [employer].; [employer]. Work Phone: Lactic Acidon 09-25-2024 Lactate [Moles/Vol] mmol/L Normal 0.0-2.0 [facility] Comment on above: Order Comment: Y Performed By: #### L 501.4080, L503.4575, L500.2500, L500.3400, L100.0100 ####[facility] [address] [place], [place], [id number] Lactic acid measurementOrder ed By: Florentin Zamudio on 09-25-2024 Lactate [Moles/Vol] mmol/L 0.0-2.0 [facility] Lipaseon 09-25-2024 Lipase [Catalytic activity/Vol] 23 U/L Normal 13-75 [facility] Comment on above: Result Comment: Nicholas sood note:LIPASE revised reference range effective 22.New Lipase methodology. Expected to produce lower valuesthan the previous assay method.NEW Reference Range: 13 - 75 U/L Performed By: #### L 501.2450, L503.6005, L500.2500, L500.3400, L100.0100 ####[facility] [address] [place], [address] Lipase measurementOrdered By : Florentin Zamudio on 09-25-2024 Lipase [Catalytic activity/Vol] 23 U/L 13-75 [facility] Comment on above: Please note:LIPASE r evised reference range effective 22. New Lipase methodology. Expected to produce lower values than the previous assay method. NEW Reference Range: 13 - 75 U/L Liver Profileon 09-25-2024 Albumin [Mass/Vol] 3.4 g/dL Low 3.5-5.0 [facility] Comment on above: Performed By: #### L 501.2450, L503.6005, L500.2500, L500.3400, L100.0100 ####[facility] [address] [place], [address] ALK PHOS 154 U/L High 35-104 [facility] Comment on above: Performed By: #### L 501.2450, L503.6005, L500.2500, L500.3400, L100.0100 ####[facility] [address] [place], [address] ALT [Catalytic activity/Vol] 95 U/L High <=34 [facility] Comment on above: Performed By: #### L 501.2450, L503.6005, L500.2500, L500.3400, L100.0100 ####[facility] [address] [place], [address] AST [Catalytic activity/Vol] 74 U/L High <=31 [facility] Comment on above: Performed By: #### L 501.2450, L503.6005, L500.2500, L500.3400, L100.0100 ####[facility] [address] [place], [address] Bilirubin [Mass/Vol] 4.12 mg/dL High 0.00-1.30 [facility] Comment on above: Performed By: #### L 501.2450, L503.6005, L500.2500, L500.3400, L100.0100 ####[facility] [address] [place], [address] Bilirubin.direct [Mass/Vol] 3.02 mg/dL High 0.00-0.30 [facility] Comment on above: Performed By: #### L 501.2450, L503.6005, L500.2500, L500.3400, L100.0100 ####[facility] [address] [place], [address] Globulin (S) [Mass/Vol] 2.8 g/dL Normal 2.2-4.2 [facility] Comment on above: Performed By: #### L 501.2450, L503.6005, L500.2500, L500.3400, L100.0100 ####[facility] [address] [place], [address] T PROT 6.2 g/dL Normal 5.9-8.4 [facility] Comment on above: Performed By: #### L 501.2450, L503.6005, L500.2500, L500.3400, L100.0100 ####[facility] [address] [place], [address] Lymphocytes Auto (Unsp spec) [#/Vol]Ordered By: Florentin Zamudio on 09-25-2024 Lymphocytes (Bld) [#/Vol] 1.62 10*3/uL 0.83-4.51 [facility] Lymphocytes/100 WBC Auto (Un sp spec)Ordered By: Florentin Zamudio on 09-25-2024 Lymphocytes/100 WBC (Bld) 15.8 % Low 19-41 [facility] MCV (mean corpuscular volume ) determinationOrdered By: Florentin Zamudio on 09-25-2024 MCV (RBC) [Entitic vol] 90.7 fL 81-99 [facility] MR/CON.PCM.GIon 09-25-2024 MR/CON.PCM.GI [facility] MR/POSTOP.ANEon 09-25-2024 MR/POSTOP.ANE Normal [facility] MR/TEWLZBSD2ge 09-25-2024 MR/POSTOPAN2 Normal [facility] Mean corpuscular hemoglobin (MCH) determinationOrdered By: Florentin Zamudio on 09-25-2024 MCH (RBC) [Entitic mass] 31.2 pg 27.0-32.0 [facility] Mean corpuscular hemoglobin concentration (MCHC) determinationOrdered By: Florentin Zamudio on 09-25-2024 MCHC (RBC) [Mass/Vol] 34.4 g/dL 32-36 [facility] Mean platelet volume determi nationOrdered By: Florentin Zamudio on 09-25-2024 Platelet mean volume (Bld) [Entitic vol] 10.4 fL 6.2-12.0 [facility] Monocyte percentageOrdered B y: Florentin Zamudio on 09-25-2024 Monocytes/100 WBC (Bld) 4.9 % 0-10 [facility] Neutrophil percentageOrdered By: Florentin Zamudio on 09-25-2024 Neutrophils/100 WBC (Bld) 77.6 % High 47-70 [facility] No Panel Informationon 09-25 AGE 24 {years} Normal [employer] Work Phone: Nucleated red blood cell per centageOrdered By: Florentin Zamudio on 09-25-2024 Nucleated RBC/100 WBC (Bld) [Ratio] 0 % 0-5 [facility] Platelet countOrdered By: Roge Zamudio on 09-25-2024 Platelets (Bld) [#/Vol] 177 10*3/uL 150-450 [facility] Potassium (Unsp spec) [Mass/ Vol]Ordered By: Florentin Zamudio on 09-25-2024 Potassium [Moles/Vol] 3.6 mmol/L 3.3-5.1 [facility] RBC Auto (Bld) [#/Vol]Ordere d By: Florentin Zamudio on 09-25-2024 RBC (Bld) [#/Vol] 3.75 10*6/uL Low 4.2-5.4 [facility] Serum creatinine measurement (mass/volume)Ordered By: Florentin Zamudio on 09-25-2024 Creatinine [Mass/Vol] 0.70 mg/dL 0.70-1.20 [facility] Serum globulin measurementOr dered By: Florentin Zamudio on 09-25-2024 Globulin (S) [Mass/Vol] 2.8 g/dL 2.2-4.2 [facility] Serum glucose measurement (m ass/volume)Ordered By: Florentin Zmaudio on 09-25-2024 Glucose [Mass/Vol] 108 mg/dL High 70-99 [facility] Serum or plasma alanine allan otransferase (ALT) measurementOrdered By: Florentin Zamudio on 09-25-2024 ALT [Catalytic activity/Vol] 95 U/L High <35 [facility] Serum or plasma albumin jeimy urement (mass/volume)Ordered By: Florentin Jones on 09-25-2024 Albumin [Mass/Vol] 3.4 g/dL Low 3.5-5.0 [facility] Serum or plasma alkaline chaka sphatase measurementOrdered By: Florentin Zamudio on 09-25-2024 ALP [Catalytic activity/Vol] 154 U/L High 35-104 [facility] Serum or plasma calcium jeimy urement (mass/volume)Ordered By: Florentin Jones on 09-25-2024 Calcium [Mass/Vol] 9.0 mg/dL 7.6-11.0 [facility] Serum or plasma urea nitroge n measurement (mass/volume)Ordered By: Florentin Zamudio on 09-25-2024 Urea nitrogen [Mass/Vol] 4 mg/dL 4-19 [facility] Sodium levelOrdered By: Augusto Zamudio on 09-25-2024 Sodium [Moles/Vol] 137 mmol/L 133-145 [facility] Total proteinOrdered By: Minh Zamudio on 09-25-2024 Protein [Mass/Vol] 6.2 g/dL 5.9-8.4 [facility] US RUQ (GB/PANCREAS)on 09-25 US RUQ (GB/PANCREAS) [place] [address] Patient: LUCY CROWLEY V. Phone#: : [phone] Age: 24 Gender: F Pt. Type: In Account: [id number] Location: [facility] Ordering: ROWE UPTAIN Exam Date: 09/25/2024/9:09 Family Phys: IRINA ZAMORA Charge Code: 464654 Physician: [place] Order #: [id number] Dose#: PROCEDURE: RUQ (GB) ULTRASOUND COMPARISON: [facility], RUQ (GB), 09/24/2024, 12:36. INDICATIONS: Recheck gallbladder [...] ESPINOZA MD ON 09/25/2024 AT 10:31 Normal [facility] White blood cell (WBC) count Ordered By: Florentin Zamudio on 09-25-2024 WBC (Bld) [#/Vol] 10.2 10*3/uL 4.4-11.0 [facility] AMYLASEon 09-24-2024 Amylase [Catalytic activity/Vol] 36 U/L Normal 25 - 115 [facility].; [facility] Work Phone: Comment on above: Performed By: #### 2 [id number] #### [facility],[address] [place] [address] BB TYPE & SCREENon 5 ABO O Normal [facility] Comment on above: Performed By: #### 2 31307 #### [facility],[address] [place] [address] ANTIBODY SCR Negative Normal [facility] Comment on above: Performed By: #### 2 20779 #### [facility],[address] [place] [address] BB TYPE & SCREEN Normal [facility] Comment on above: Result Comment: TYPE , Rh, AND SCREEN Performed By: #### 2 07374 #### [facility],[address] [place] [address] Rh Nom (Bld) Positive Normal [facility]; [facility] Work Phone: Comment on above: Performed By: #### 2 03296 #### [facility],[address] [place] [address] CBC + DIFFon 09-24-2024 Basophils/100 WBC (Bld) 0.2 % Normal 0.0 - 2.0 [facility], [facility].; [facility], [facility]. Work Phone: Comment on above: Performed By: #### 2 91494 #### [address] [address] Eosinophils/100 WBC (Bld) 0.9 % Normal 0.0 - 7.0 [facility], [facility].; [facility] Work Phone: Comment on above: Performed By: #### 2 86289 #### [address] [address] Erythrocyte distribution width (RBC) [Ratio] 13.3 % Normal 12.0 - 15.6 [facility], [facility].; [place] [employer] Work Phone: Comment on above: Performed By: #### 2 84568 #### [address] [address] Hematocrit (Bld) [Volume fraction] 38.7 % Normal 34.0 - 46.0 [facility], [facility].; [place] [employer]. Work Phone: Comment on above: Performed By: #### 2 44277 #### [address] [address] Hemoglobin (Bld) [Mass/Vol] 13.3 g/dL Normal 12.0 - 16.0 [facility], [facility].; [place] [employer] Work Phone: Comment on above: Performed By: #### 2 37918 #### [address] [address] Lymphocytes/100 WBC (Bld) 19.0 % Low 20.0 - 45.0 [facility], [facility].; [place] [employer] Work Phone: Comment on above: Performed By: #### 2 07930 #### [facility],[address] [place] [address] MANUAL DIFF N/A Normal [facility].; [facility], [facility]. Work Phone: Comment on above: Performed By: #### 2 21057 #### [address] [address] MCH (RBC) [Entitic mass] 31 pg Normal 27 - 33 [facility].; [facility], [facility]. Work Phone: Comment on above: Performed By: #### 2 31253 #### [address] [address] MCV (RBC) [Entitic vol] 91 fL Normal 80 - 99 H [facility]; [facility], [facility] Work Phone: Comment on above: Performed By: #### 2 22355 #### [address] [address] Morphology Cy (Bld) [Interp] N/A Normal [facility]; [facility], [facility]. Work Phone: Comment on above: Performed By: #### 2 83446 #### [address] [address] Neutrophils/100 WBC (Bld) 73.9 % Normal 46.0 - 76.0 [facility].; [facility], [facility]. Work Phone: Comment on above: Performed By: #### 2 97753 #### [address] [address] Platelet mean volume (Bld) [Entitic vol] 8.3 fL Normal 6.6 - 10.5 [facility].; [facility], [facility]. Work Phone: Comment on above: Result Comment: AUTO MATED DIFFERENTIAL Performed By: #### 2 21244 #### [facility],[address] [place] [address] Baso # 0.02 x10EE3/UL Normal 0.00 - 0.10 [facility] Comment on above: Performed By: #### 2 07439 #### [facility],[address] [place] [address] CBC + DIFF Normal [facility] Comment on above: Result Comment: CBC- COMPLETE BLOOD COUNT Performed By: #### 2 04351 #### [facility],[address] [place] [address] EO # 0.07 x10EE3/UL Normal 0.00 - 0.50 [facility] Comment on above: Performed By: #### 2 76458 #### [facility],[address] [place] [address] Lymph # 1.60 x10EE3/UL Normal 0.80 - 2.80 [facility] Comment on above: Performed By: #### 2 94045 #### [facility],[address] [place] [address] MCHC 34 X10 3 Normal 32 - 36 [facility] Comment on above: Performed By: #### 2 39407 #### [facility],[address] [place] [address] [place] # 0.51 x10EE3/UL Normal 0.20 - 1.00 [facility] Comment on above: Performed By: #### 2 69236 #### [facility],[address] [place] [address] MONOS % 6.1 % Normal 0.0 - 10.0 [facility] Comment on above: Performed By: #### 2 83614 #### [facility],[address] [place] [address] Neut # 6.24 x10EE3/UL Normal 1.50 - 7.10 [facility] Comment on above: Performed By: #### 2 95655 #### [facility],[address] [place] [address] PLATELET 256 x10EE3/UL Normal 150 - 450 [facility] Comment on above: Performed By: #### 2 21578 #### [facility],[address] [place] [address] RBC 4.24 x 10EE6/UL Normal 4.10 - 5.30 [facility] Comment on above: Performed By: #### 2 35592 #### [facility],[address] [place] [address] WBC 8.5 x 10EE3/UL Normal 4.5 - 10.8 [facility] Comment on above: Performed By: #### 2 52112 #### [facility],[address] [place] [address] CMP with eGFRon 09-24-2024 AGE 24 years Normal [facility] Comment on above: Performed By: #### 2 87175 #### [facility],[address] [place] [address] Albumin [Mass/Vol] 2.8 g/dL Low 3.4 - 5.0 [facility].; [facility] Work Phone: Comment on above: Performed By: #### 2 53679 #### [facility],[address] [place] [address] Albumin/Globulin [Mass ratio] 0.7 {ratio} Low 0.9 - 1.6 [facility] Comment on above: Performed By: #### 2 34155 #### [facility],[address] [place] [address] ALK PHOS 153 U/L High 46 - 116 [facility] Comment on above: Performed By: #### 2 96490 #### [facility],[address] [place] [address] ALT [Catalytic activity/Vol] 118 U/L High 16 - 63 [facility], [facility].; [place] [employer]. Work Phone: Comment on above: Performed By: #### 2 20537 #### [facility],[address] [place] [address] Anion gap [Moles/Vol] 11 mmol/L Normal 10 - 20 [facility], [facility].; [facility] [email or web address] Work Phone: Comment on above: Performed By: #### 2 85378 #### [facility],[address] [place] [address] AST [Catalytic activity/Vol] 93 U/L High 13 - 39 [facility], [facility].; [place] [employer] Work Phone: Comment on above: Performed By: #### 2 33275 #### [address] [address] B/C RATIO 10 ratio Normal 0 - 30 [facility] Comment on above: Performed By: #### 2 01122 #### [facility],[address] [place] [address] Bilirubin [Mass/Vol] 4.0 mg/dL High 0.2 - 1.0 [facility], [facility].; [place] [employer] Work Phone: Comment on above: Performed By: #### 2 66926 #### [facility],[address] [place] [address] Calcium [Mass/Vol] 8.6 mg/dL Normal 8.5 - 10.1 [facility], [facility].; [place] [employer]. Work Phone: Comment on above: Performed By: #### 2 25745 #### [facility],[address] [place] [address] Chloride [Moles/Vol] 104 mmol/L Normal 98 - 107 [facility], [facility].; [facility] Hospital[facility]its[facility]. Work Phone: Comment on above: Performed By: #### 2 12518 #### [facility],[address] [place] [address] CMP with eGFR Normal [facility] Comment on above: Result Comment: COMP REHENSIVE METABOLIC PANEL Performed By: #### 2 84172 #### [facility],[address] [place] [address] CO2 [Moles/Vol] 25.3 mmol/L Normal 21.0 - 32.0 [facility] Hospital[facility] ([employer]); [place] [employer] [email or web address] Work Phone: Comment on above: Performed By: #### 2 00393 #### [facility],[address] [place] [address] Creatinine [Mass/Vol] 0.71 mg/dL Normal 0.55 - 1.[address] [facility]& ([employer]); [facility]. Work Phone: Comment on above: Performed By: #### 2 48769 #### [facility],[address] [place] [address] GFR/1.73 sq M.predicted among non-blacks MDRD (S/P/Bld) [Vol rate/Area] mL/min/{1.73_m2} Normal 60 - 999 [facility] Comment on above: Performed By: #### 2 63065 #### [facility],[address] [place] [address] Result Comment: ACCO RDING TO THE NATIONAL KIDNEY DISEASE EDUCATION PROGRAM(NKDE), A NORMAL eGFR IS A VALUE GREATER THAN OR EQUAL TO 60 ML/MIN/1.73 SQ METERS. CHRONIC KIDNEY DISEASE: <60mL/MIN/1.73 SQ METERS KIDNEY FAILURE: <15mL/MIN/1.73 SQ METERS THIS TEST SHOULD ONLY BE USED FOR PATIENTS 18 YEARS OF AGE AND OLDER. Globulin (S) [Mass/Vol] 3.9 g/dL High 1.5 - 3.8 [facility] ([employer]); [facility] Hospital[facility]. Work Phone: Comment on above: Performed By: #### 2 67951 #### [address] [address] Glucose [Mass/Vol] 77 mg/dL Normal 74 - 106 [facility], [facility].; [place] [employer], [place]. Work Phone: Comment on above: Performed By: #### 2 07717 #### [address] [address] Potassium [Moles/Vol] 3.7 mmol/L Normal 3.5 - 5.1 [facility].; [facility] [email or web address], [place]. Work Phone: Comment on above: Performed By: #### 2 94437 #### [address] [address] Protein [Mass/Vol] 6.7 g/dL Normal 6.4 - 8.2 [facility] [place] [employer] [place]. Work Phone: Comment on above: Performed By: #### 2 75602 #### [address] [address] Sodium [Moles/Vol] 137 mmol/L Normal 136 - 145 [facility].; [place] [employer]. Work Phone: Comment on above: Performed By: #### 2 02629 #### [address] [address] Urea nitrogen [Mass/Vol] 7 mg/dL Normal 7 - 18 [facility].; [place] [employer] [place]. Work Phone: Comment on above: Performed By: #### 2 40699 #### [address] [address] AGE 24 years Normal [facility] Comment on above: Performed By: #### 2 59972 #### [facility],[address] [place] [address] Albumin/Globulin [Mass ratio] 0.7 {ratio} Low 0.9 - 1.6 [facility] Comment on above: Performed By: #### 2 80490 #### [facility],[address] [place] [address] ALK PHOS 153 U/L High 46 - 116 [facility] Comment on above: Performed By: #### 2 28800 #### [facility],[address] [place] [address]651 ALT [Catalytic activity/Vol] 129 U/L High 16 - 63 [facility].; [email or web address]. Work Phone: Comment on above: Performed By: #### 2 57900 #### [facility],[address] [place] [address] Anion gap [Moles/Vol] 12 mmol/L Normal 10 - 20 [facility].; [email or web address]. Work Phone: Comment on above: Performed By: #### 2 45826 #### [facility],[address] [place] [address] AST [Catalytic activity/Vol] 103 U/L High 13 - 39 [facility].; [email or web address]. Work Phone: Comment on above: Performed By: #### 2 32470 #### [facility],[address] [place] [address] B/C RATIO 12 ratio Normal 0 - 30 [facility] Comment on above: Performed By: #### 2 31973 #### [facility],[address] [place] [address]877 Bilirubin [Mass/Vol] 4.2 mg/dL High 0.2 - 1.0 [facility].; [email or web address]. Work Phone: Comment on above: Performed By: #### 2 32394 #### [facility],[address] [place] [address] Calcium [Mass/Vol] 8.7 mg/dL Normal 8.5 - 10.1 [facility]; [facility], [facility] Work Phone: Comment on above: Performed By: #### 2 17085 #### [facility],[address] [place] [address] Chloride [Moles/Vol] 102 mmol/L Normal 98 - 107 [facility]; [facility], [facility] Work Phone: Comment on above: Performed By: #### 2 70295 #### [facility],[address] [place] [address]1969 CMP with eGFR Normal [facility] Comment on above: Result Comment: COMP REHENSIVE METABOLIC PANEL Performed By: #### 2 67897 #### [facility],[address] [place] [address] CO2 [Moles/Vol] 26.8 mmol/L Normal 21.0 - 32.0 [facility]; [facility], [facility] Work Phone: Comment on above: Performed By: #### 2 66983 #### [facility],[address] [place] [address] Creatinine [Mass/Vol] 0.60 mg/dL Normal 0.55 - 1.02 [facility], [facility].; [facility], [facility]. Work Phone: Comment on above: Performed By: #### 2 83675 #### [address] [address] GFR/1.73 sq M.predicted among non-blacks MDRD (S/P/Bld) [Vol rate/Area] mL/min/{1.73_m2} Normal 60 - 999 [facility] Comment on above: Performed By: #### 2 49617 #### [address] [address] Result Comment: ACCO RDING TO THE NATIONAL KIDNEY DISEASE EDUCATION PROGRAM(NKDE), A NORMAL eGFR IS A VALUE GREATER THAN OR EQUAL TO 60 ML/MIN/1.73 SQ METERS. CHRONIC KIDNEY DISEASE: <60mL/MIN/1.73 SQ METERS KIDNEY FAILURE: <15mL/MIN/1.73 SQ METERS THIS TEST SHOULD ONLY BE USED FOR PATIENTS 18 YEARS OF AGE AND OLDER. Globulin (S) [Mass/Vol] 4.0 g/dL High 1.5 - 3.8 [facility].; [facility], [facility] Work Phone: Comment on above: Performed By: #### 2 77682 #### [address] [address] Glucose [Mass/Vol] 80 mg/dL Normal 74 - 106 [facility].; [facility]. Work Phone: Comment on above: Performed By: #### 2 13153 #### [address] [address] Potassium [Moles/Vol] 3.9 mmol/L Normal 3.5 - 5.1 [facility].; [facility], [place]. Work Phone: Comment on above: Performed By: #### 2 58997 #### [facility],[address] [place] [address] Protein [Mass/Vol] 6.8 g/dL Normal 6.4 - 8.2 [facility]; [facility]. Work Phone: Comment on above: Performed By: #### 2 75275 #### [facility],[address] [place] [address] AGE 24 years Normal [facility] Comment on above: Performed By: #### 2 73014 #### [facility],[address] [place] [address] Albumin [Mass/Vol] 2.9 g/dL Low 3.4 - 5.0 [facility]; [facility] Work Phone: Comment on above: Performed By: #### 2 86967 #### [address] [address] Albumin/Globulin [Mass ratio] 0.7 {ratio} Low 0.9 - 1.6 [facility] Comment on above: Performed By: #### 2 63344 #### [address] [address] ALK PHOS 155 U/L High 46 - 116 [facility] Comment on above: Performed By: #### 2 84022 #### [address] [address] ALT [Catalytic activity/Vol] 137 U/L High 16 - 63 [facility]; [facility], [facility] Work Phone: Comment on above: Performed By: #### 2 52059 #### [facility],[address] [place] [address] Anion gap [Moles/Vol] 13 mmol/L Normal 10 - 20 [facility]; [facility], [facility] Work Phone: Comment on above: Performed By: #### 2 63474 #### [address] [address] AST [Catalytic activity/Vol] 131 U/L High 13 - 39 [facility]; [facility]. Work Phone: Comment on above: Performed By: #### 2 33975 #### [address] [address] B/C RATIO 14 ratio Normal 0 - 30 [facility] Comment on above: Performed By: #### 2 78709 #### [facility],[address] [place] [address] Bilirubin [Mass/Vol] 4.8 mg/dL High 0.2 - 1.0 [facility].; [facility], [facility] Work Phone: Comment on above: Performed By: #### 2 99351 #### [facility],[address] [place] [address] Calcium [Mass/Vol] 9.2 mg/dL Normal 8.5 - 10.1 [facility]; [facility] Work Phone: Comment on above: Performed By: #### 2 27977 #### [facility],[address] [place] [address] CMP with eGFR Normal [facility] Comment on above: Result Comment: COMP REHENSIVE METABOLIC PANEL Performed By: #### 2 04384 #### [address] [address] CO2 [Moles/Vol] 24.8 mmol/L Normal 21.0 - 32.0 [facility]; [facility], [facility] Work Phone: Comment on above: Performed By: #### 2 75177 #### [address] [address] Creatinine [Mass/Vol] 0.63 mg/dL Normal 0.55 - 1.02 [facility].; [facility], [facility] Work Phone: Comment on above: Performed By: #### 2 54312 #### [address] [address] GFR/1.73 sq M.predicted among non-blacks MDRD (S/P/Bld) [Vol rate/Area] mL/min/{1.73_m2} Normal 60 - 999 [facility] Comment on above: Performed By: #### 2 81447 #### [address] [address] Result Comment: ACCO RDING TO THE NATIONAL KIDNEY DISEASE EDUCATION PROGRAM(NKDE), A NORMAL eGFR IS A VALUE GREATER THAN OR EQUAL TO 60 ML/MIN/1.73 SQ METERS. CHRONIC KIDNEY DISEASE: <60mL/MIN/1.73 SQ METERS KIDNEY FAILURE: <15mL/MIN/1.73 SQ METERS THIS TEST SHOULD ONLY BE USED FOR PATIENTS 18 YEARS OF AGE AND OLDER. Globulin (S) [Mass/Vol] 4.4 g/dL High 1.5 - 3.8 [email or web address].; [employer] [email or web address]. Work Phone: Comment on above: Performed By: #### 2 11098 #### [address] [address] Glucose [Mass/Vol] 94 mg/dL Normal 74 - 106 [facility], [place].; [employer], [place]. Work Phone: Comment on above: Performed By: #### 2 71226 #### [address] [address] Protein [Mass/Vol] 7.3 g/dL Normal 6.4 - 8.2 [place] [employer] [facility], [place].; [employer], [place]. Work Phone: Comment on above: Performed By: #### 2 33981 #### [address] [address] Sodium [Moles/Vol] 138 mmol/L Normal 136 - 145 [employer] [email or web address].; [employer] Work Phone: Comment on above: Performed By: #### 2 02809 #### [address] [address] Urea nitrogen [Mass/Vol] 9 mg/dL Normal 7 - 18 [employer] Work Phone: Comment on above: Performed By: #### 2 35947 #### [facility],[address] [place] [address] LDHon 09-24-2024 LDH 178 U/L Normal 81 - 234 [facility] Comment on above: Performed By: #### 2 16058 #### [facility],[address] [place] [address] LIPASEon 09-24-2024 Lipase [Catalytic activity/Vol] 22.0 U/L Normal 15.0 - 78.0 [facility]; [facility]. Work Phone: Comment on above: Result Comment: *PLE ASE NOTE THAT RANGES FOR LIPASE HAVE CHANGED OF 06/07/23 DUE TO AN ASSAY UPDATE BY THE [employer]APEZE PERFORMER.THE NEW ASSAY RANGE IS 6-250 U/L, WITH A REFERENCE RANGE OF 16-77 U/L. Performed By: #### 2 07931 #### [facility],[address] [place] [address] Laboratory - Blood bankon ABO group Nom (Bld) O Normal [facility]; [facility] Work Phone: Blood group antibody screen Ql Negative Normal [facility]; [facility]. Work Phone: Blood type and Indirect antibody screen panel (Bld) Normal [facility]; [facility]. Work Phone: Laboratory - Chemistry and C hemistry - challengeon 09-24-2024 Albumin [Mass/Vol] 0.7 g/dL Abnormal 0.9 - 1.6 [facility]; [facility]. Work Phone: ALP [Catalytic activity/Vol] 155 U/L Abnormal 46 - 116 U/L [facility]; [facility] Work Phone: ALP [Catalytic activity/Vol] 153 U/L Abnormal 46 - 116 U/L [facility]; [facility] Work Phone: Comprehensive metabolic 2000 panel CMP with eGFR Normal [facility]; [facility] Work Phone: Creatinine [Mass/Vol] 96.76 mg/dL Normal [facility]; [facility], [facility] Work Phone: GFR/1.73 sq M.predicted among blacks MDRD (S/P/Bld) [Vol rate/Area] mL/min/{1.73_m2} Normal 60 - 999 {ML/MINUTE} [facility]; [facility] Work Phone: GFR/1.73 sq M.predicted MDRD (S/P/Bld) [Vol rate/Area] mL/min/{1.73_m2} Normal 60 - 999 {ML/MINUTE} [facility]; [facility] Work Phone: LDH Lactate to pyruvate reaction [Catalytic activity/Vol] 178 U/L Normal 81 - 234 U/L [facility]; [facility] Work Phone: Protein (24H U) [Mass/Vol] 17.80 mg/dL Abnormal 0.00 - 10.00 mg/dL [facility]; [facility] Work Phone: Urea nitrogen/Creatinine [Mass ratio] 14 {ratio} Normal 0 - 30 {ratio} [facility]; [facility] Work Phone: Urea nitrogen/Creatinine [Mass ratio] 12 {ratio} Normal 0 - 30 {ratio} [facility]; [facility] Work Phone: Urea nitrogen/Creatinine [Mass ratio] 10 {ratio} Normal 0 - 30 {ratio} [facility]; [email or web address] Work Phone: Laboratory - Hematology and Cell countson 09-24-2024 Basophils (Bld) [#/Vol] 0.02 {3/UL} Normal 0.00 - 0.10 {3/UL} [email or web address].; [place] [employer]. Work Phone: CBC W Auto Differential panel (Bld) CBC + DIFF Normal [facility].; [place] [employer]. Work Phone: Eosinophils (Bld) [#/Vol] 0.07 {3/UL} Normal 0.00 - 0.50 {3/UL} [facility].; [place] [employer]. Work Phone: Lymphocytes (Bld) [#/Vol] 1.60 {3/UL} Normal 0.80 - 2.80 {3/UL} [facility].; [employer]. Work Phone: MCHC (RBC) [Mass/Vol] 34 {X10_3} Normal 32 - 3 6 {X10_3} [facility].; [employer]. Work Phone: Monocytes (Bld) [#/Vol] 0.51 {3/UL} Normal 0.20 - 1.00 {3/UL} [facility].; [employer]. Work Phone: Monocytes/100 WBC (Bld) 6.1 % Normal 0.0 - 10.0 % [email or web address].; [employer]. Work Phone: Neutrophils (Bld) [#/Vol] 6.24 {3/UL} Normal 1.50 - 7.10 {3/UL} [place] [employer].; [employer] [place]. Work Phone: Platelets (Bld) [#/Vol] 256 {3/UL} Normal 150 - 450 {3/UL} [place] [employer].; [employer]. Work Phone: RBC (Bld) [#/Vol] 4.24 {6/UL} Normal 4.10 - 5.3 0 {6/UL} [email or web address].; [employer] Work Phone: WBC (Bld) [#/Vol] 8.5 {3/UL} Normal 4.5 - 10.8 {3/UL} [email or web address].; [place] [employer]. Work Phone: No Panel Informationon 09-24 AGE 24 {years} Normal [email or web address].; [employer] Work Phone: URIC ACIDon 09-24-2024 Urate [Mass/Vol] 3.9 mg/dL Normal 2.6 - 6.0 [email or web address].; [employer]. Work Phone: Comment on above: Performed By: #### 2 80519 #### [facility],[address] [place] [address]344 URINE CREATININE AND PROTEIN RATIOon 09-24-2024 CREATININE UR 96.76 mg/dl Normal [facility] Comment on above: Performed By: #### 2 26645 #### [facility],[address] [place] [address] 88097 PC RATIO 0.18 mg/dL Normal 0.00 - 10.00 [email or web address].; [employer]. Work Phone: Comment on above: Performed By: #### 2 20141 #### [facility],[address] [place] [address]38 Protein (U) [Mass/Vol] 17.80 mg/dL High 0.00 - 10.00 [facility] Comment on above: Performed By: #### 2 45735 #### [facility],[address] [place] [address] 80138 US RUQ (GB/PANCREAS)on 09-24 US RUQ (GB/PANCREAS) [place] [address] Patient: LUCY CROWLEY V. Phone#: : [phone] Age: 24 Gender: F Pt. Type: In Account: [id number] Location: [facility] Ordering: [employer] Exam Date: 09/24/2024/12:36 Family Phys: IRINA ZAMORA Charge Code: [id number] Physician: [place] Order #: [id number] Dose#: PROCEDURE: RUQ (GB) ULTRASOUND COMPARISON: None. INDICATIONS: Jaundice FINDINGS: LIVER: Mild intrahepatic ductal dilatation.. Normal size and echotexture. No significant masses. BILIARY: Numerous shadowing stones layering in the gallbladder. There is sludge in the gallbladder. Gallbladder wall measures 0.2 cm. Common bile duct measures 0.5 cm. [employer] stone measures 0.5 cm. PANCREAS: Pancreas is [...] ANNE MD ON 09/24/2024 AT 13:27 Normal [facility] Vital Signs Date Time Vital Sign Value Performing Clinician Darlene rader 11-18-2024 15:47-0400 Body temperature 98.2 [degF] Dr. Florentin Zamudio DO Work Phone: [facility] 11-18-2024 15:47-0400 Diastolic blood pressure 79 mm[Hg] Dr. Florentin Zamudio DO Work Phone: [facility] 11-18-2024 15:47-0400 Heart rate 66 /min Dr. Florentin Zamudio DO Work Phone: [facility] 11-18-2024 15:47-0400 Respiratory rate 16 /min Dr. Florentin Zamudio DO Work Phone: 9(184)847-905334 [place] [address] 11-18-2024 15:47-0400 SaO2% (BldA) [Mass fraction] 98 % Dr. Florentin Zamudio DO Work Phone: 3(340)037-898734 [place] [address] 11-18-2024 15:47-0400 Systolic blood pressure 108 mm[Hg] Dr. Florentin Zamudio DO Work Phone: 0(041)082-288292 [place] [address] 11-17-2024 17:43-0400 Body height 170.[address] Florentin Zamudio DO Work Phone: 3(871)978-002034 [place] [address] 11-17-2024 17:43-0400 Body weight 93.[address] Florentin Zamudio DO Work Phone: 8(144)897-797734 [place] [address] 11-16-2024 13:58-0400 Body mass index (BMI) [Ratio] 32.1 kg/m2 Dr. Florentin Zamudio DO Work Phone: 7(218)942-084734 [place] [address] 11-13-2024 11:30-0400 Body temperature 98.7 [degF] Dr. Florentin Zamudio DO Work Phone: 7(055)641-925134 [place] [address] 11-13-2024 11:30-0400 Diastolic blood pressure 73 mm[Hg] Dr. Florentin Zamudio DO Work Phone: 2(186)815-573034 [place] [address] 11-13-2024 11:30-0400 Heart rate 86 /min Dr. Florentin Zamudio DO Work Phone: 0(061)902-354834 [place] [address] 11-13-2024 11:30-0400 Respiratory rate 14 /min Dr. Florentin Zamudio DO Work Phone: 2(867)518-095634 [place] [address] 11-13-2024 11:30-0400 SaO2% (BldA) [Mass fraction] 98 % Dr. Florentin Zamudio DO Work Phone: 8(965)385-986492 [place] [address] 11-13-2024 11:30-0400 Systolic blood pressure 108 mm[Hg] Dr. Florentin Zamudio DO Work Phone: 5(967)862-869892 [place] [address] 11-13-2024 09:45-0400 Inhaled oxygen flow rate 2 L/min Dr. Florentin Zamudio DO Work Phone: 5(909)545-767292 [place] [address] 11-13-2024 06:47-0400 Body height 170.[address] Florentin Zamudio DO Work Phone: 1(133)658-300792 [place] [address] 11-13-2024 06:47-0400 Body mass index (BMI) [Ratio] 31.1 kg/m2 Dr. Florentin Zamudio DO Work Phone: 7(588)037-321534 [place] [address] 11-13-2024 06:47-0400 Body weight 90.[address] Florentin Zamudio DO Work Phone: 8(555)912-752392 [place] [address] 10-23-2024 10:00-0400 Body temperature 98.4 [degF] Dr. Florentin Zamudio DO Work Phone: 4(320)550-425692 [place] [address] 10-23-2024 10:00-0400 Diastolic blood pressure 67 mm[Hg] Dr. Florentin Zamudio DO Work Phone: 7(196)984-476892 [place] [address] 10-23-2024 10:00-0400 Heart rate 100 /min Dr. Florentin Zamudio DO Work Phone: 1(251)665-068092 [place] [address] 10-23-2024 10:00-0400 Respiratory rate 16 /min Dr. Florentin Zamudio DO Work Phone: 1(891)354-526792 [place] [address] 10-23-2024 10:00-0400 SaO2% (BldA) [Mass fraction] 95 % Dr. Florentin Zamudio DO Work Phone: 2(669)802-744892 [place] [address] 10-23-2024 10:00-0400 Systolic blood pressure 102 mm[Hg] Dr. Florentin Zamudio DO Work Phone: 2(604)402-900992 [place] [address] 10-21-2024 20:39-0400 Inhaled oxygen flow rate 2 L/min Dr. Florentin Zamudio DO Work Phone: 1(576)941-842892 [place] [address] 10-20-2024 21:23-0400 Body height 167.[address] Florentin Zamudio DO Work Phone: 1(031)195-526892 [place] [address] 10-20-2024 21:23-0400 Body mass index (BMI) [Ratio] 31.8 kg/m2 Dr. Florentin Zamudio DO Work Phone: 2(156)719-763092 [place] [address] 10-20-2024 21:23-0400 Body weight 89.[address] Florentin Zamudio DO Work Phone: 0(332)414-713792 [place] [address] 10-20-2024 21:00-0400 Body temperature 99 [degF] Dr. Florentin Zamudio DO Work Phone: 3(429)195-402292 [place] [address] 10-20-2024 21:00-0400 Diastolic blood pressure 71 mm[Hg] Dr. Florentin Zamudio DO Work Phone: 6(152)507-580692 [place] [address] 10-20-2024 21:00-0400 Heart rate 89 /min Dr. Florentin Zamudio DO Work Phone: 2(747)040-254992 [place] [address] 10-20-2024 21:00-0400 Respiratory rate 16 /min Dr. Florentin Zamudio DO Work Phone: 6(916)454-063392 [place] [address] 10-20-2024 21:00-0400 SaO2% (BldA) [Mass fraction] 96 % Dr. Florentin Zamudio DO Work Phone: 7(469)833-210692 [place] [address] 10-20-2024 21:00-0400 Systolic blood pressure 109 mm[Hg] Dr. Florentin Zamudio DO Work Phone: 4(064)624-374692 [place] [address] 10-20-2024 17:26-0400 Body height 162.[address] Florentin Zamudio DO Work Phone: 1(695)315-600492 [place] [address] 10-20-2024 17:26-0400 Body mass index (BMI) [Ratio] 34.1 kg/m2 Dr. Florentin Zamudio DO Work Phone: 0(756)493-350892 [place] [address] 10-20-2024 17:26-0400 Body weight 90.[address] Florentin Zamudio DO Work Phone: 0(063)828-715434 [place] [address] 09-26-2024 13:51-0400 Body temperature 98.3 [degF] Dr. Florentin Zamudio DO Work Phone: 3(374)673-947292 [place] [address] 09-26-2024 13:51-0400 Diastolic blood pressure 72 mm[Hg] Dr. Florentin Zamudio DO Work Phone: 0(478)745-292434 [place] [address] 09-26-2024 13:51-0400 Heart rate 93 /min Dr. Florentin Zamudio DO Work Phone: 3(309)987-260992 [place] [address] 09-26-2024 13:51-0400 Respiratory rate 18 /min Dr. Florentin Zamudio DO Work Phone: 0(771)665-215434 [place] [address] 09-26-2024 13:51-0400 SaO2% (BldA) [Mass fraction] 96 % Dr. Florentin Zamudio DO Work Phone: 3(014)447-806192 [place] [address] 09-26-2024 13:51-0400 Systolic blood pressure 114 mm[Hg] Dr. Florentin Zamudio DO Work Phone: 2(460)143-710392 [place] [address] 09-26-2024 06:00-0400 Body mass index (BMI) [Ratio] 35.5 kg/m2 Dr. Florentin Zamudio DO Work Phone: 5(807)313-036792 [place] [address] 09-26-2024 06:00-0400 Body weight 94.[address] Florentin Zamudio DO Work Phone: [facility] 09-25-2024 18:42-0400 Body height 162.[address] Florentin Zamuido DO Work Phone: [facility] 09-25-2024 16:26-0400 Body temperature 97.9 [degF] Dr. Florentin Zamudio DO Work Phone: [phone])[phone] [place] [address] 09-25-2024 16:26-0400 Diastolic blood pressure 69 mm[Hg] Dr. Florentin Zamudio DO Work Phone: [phone] [place] [address] 09-25-2024 16:26-0400 Heart rate 88 /min Dr. Florentin Zamudio DO Work Phone: 1(116)[phone] [place] [address] 09-25-2024 16:26-0400 Respiratory rate 16 /min Dr. Florentin Zamudio DO Work Phone: 3([phone] [place] [address] 09-25-2024 16:26-0400 SaO2% (BldA) [Mass fraction] 95 % Dr. Florentin Zamudio DO Work Phone: [facility] 09-25-2024 16:26-0400 Systolic blood pressure 92 mm[Hg] Dr. Florentin Zamudio DO Work Phone: [facility] 09-25-2024 13:44-0400 Body height 162.[address] Florentin Zamudio DO Work Phone: [facility] Encounters Encounter Date Encounter Type Care Provider Facility Start: 12-02-2024 End: 12-02-[address] Aquilino Collins MD -[facility] Work Phone: Start: 12-02-2024 End: 12-02-[address] Florentin Zamudio DO Work Phone: [facility] Work Phone: Start: 11-26-2024 Encounter for other preprocedural examination [facility] Start: 11-18-2024 Non-patient / Non-visit Dr. Puja Perdomo MD -[facility] Work Phone: Start: 11-18-2024 Non-patient / Non-visit Dr. Federico LOPEZ -[facility] Start: 11-17-2024 Non-patient / Non-visit Dr. Puja Perdomo MD -[facility] Work Phone: Start: 11-17-2024 Non-patient / Non-visit Wendy Santana PA-C -[facility] Start: 11-16-2024 Non-patient / Non-visit Ld Evans nd, DO -[facility] Start: 11-16-2024 Non-patient / Non-visit Dr. Gisela Joya MD -[facility] Start: 11-15-2024 Non-patient / Non-visit [facility]. G[facility] Start: 11-15-2024 Non-patient / Non-visit Dr. Mis Calderon MD -[facility] Work Phone: Start: 11-14-2024 Non-patient / Non-visit Ld Evans nd DO -[facility] Start: 11-14-2024 ambulatory Ld Chacon Facility [facility] Start: 11-14-2024 End: 11-18-2024 Evaluation and management of inpatient Dr. Kimberlee Perdomo MD -[facility] Work Phone: Start: 11-14-2024 End: 11-14-2024 Emergency department patient visit NONE NONE Facility:[facility] Start: 11-13-2024 End: 11-13-2024 Non-patient / Non-visit Ld Chacon DO -[facility] Start: 11-13-2024 End: 11-13-2024 Admission to same day surgery center Ld Chacon DO -End[facility] Work Phone: Start: 11-13-2024 End: 11-13-[address] Florentin Zamudio DO Work Phone: [facility] Work Phone: Start: 11-12-2024 End: 11-12-[address] Aquilino Collins MD -[facility] Work Phone: Start: 11-12-2024 End: 11-12-[address] Florentin Zamudio DO Work Phone: [facility] Work Phone: Start: 11-03-2024 End: 11-03-2024 Patient encounter procedure Mikayla MORALES -[facility] Work Phone: Start: 11-03-2024 End: 11-03-[address] Florentin Zamudio DO Work Phone: [facility] Work Phone: Start: 11-03-2024 End: 11-03-[address] Aquilino Collins MD -[facility] Work Phone: Start: 11-03-2024 End: 11-03-[address] Florentin Zamudio DO Work Phone: [facility] Work Phone: Start: 10-28-2024 End: 10-28-[address] Aquilino Collins MD -[facility] Work Phone: Start: 10-28-2024 End: 10-28-[address] Florentin Zamudio DO Work Phone: [facility] Work Phone: Start: 10-28-2024 End: 10-28-2024 ambulatory Aquilino Collins Facility[facility] Start: 10-23-2024 Non-patient / Non-visit Dr. Federico LOPEZ -[facility] Start: 10-22-2024 Non-patient / Non-visit Wendy Santana PA-C [facility] Start: 10-21-2024 Non-patient / Non-visit Wendy Santana PA-C [facility] Start: 10-21-2024 End: 10-21-2024 ambulatory Heather Cerna Flori Facility:[facility] Start: 10-21-2024 End: 10-21-2024 Non-patient / Non-visit Dr. Hao Hudson MD -[facility] Work Phone: Start: 10-20-2024 ambulatory Heather Cerna Flori Facili ty:[facility] Start: 10-20-2024 End: 10-23-2024 Evaluation and management of inpatient Dr. Aquilino Collins MD -[facility] Work Phone: Start: 10-15-2024 End: 10-16-2024 Emergency department patient visit IRINA LOPEZ [facility] Start: 10-09-2024 End: 10-09-2024 Patient encounter procedure Mikayla MORALES -[facility] Work Phone: Start: 10-09-2024 End: 10-09-2024 ambulatory Heather Cerna Flori Facility:[facility] Start: 09-26-2024 Non-patient / Non-visit Dr. Ravindra Negron MD -[facility] Work Phone: Start: 09-26-2024 Non-patient / Non-visit Dr. Yesica Mayo MD -[facility] Start: 09-25-2024 Non-patient / Non-visit Ld Evans nd, DO -[facility] Start: 09-25-2024 End: 09-26-2024 Evaluation and management of inpatient Dr. Carlin Negron MD -[facility] Work Phone: Start: 09-25-[address] [facility] Ld Chacon DO -[facility] Work Phone: Start: 09-25-[address] Florentin Zamudio DO Work Phone: [facility] Work Phone: Start: 09-24-2024 End: 09-25-2024 Evaluation and management of inpatient [facility]YSTAL [facility] Procedures Date Procedure Procedure Detail Performing Clinician Start: 11-18-[address] Florentin Zamudio DO Work Phone: Start: 11-16-2024 Computed tomography of abdomen and pelvis with intravenous contrast Dr. Florentin Zamudio DO Work Phone: Start: 11-16-2024 End: 11-16-[address] Florentin Zamudio DO Work Phone: Start: 11-16-[address] Florentin Zamudio DO Work Phone: Start: 11-15-2024 Serum inorganic phosphate measurement Dr. Florentin Zamudio DO Work Phone: Start: 11-14-2024 Computed tomography of abdomen and pelvis with intravenous contrast Dr. Florentin Zamudio DO Work Phone: Start: 11-14-[address] Florentin Zamudio DO Work Phone: Start: 11-14-[address] Florentin Zamudio DO Work Phone: Start: 11-14-[address] Florentin Zamudio DO Work Phone: Start: 11-14-2024 End: 11-14-2024 Microbial culture, body fluid Dr. Florentin Zamudio DO Work Phone: Start: 11-13-2024 End: 11-13-2024 Endoscopic retrograde cholangiopancreatography [...] Result Comment: URINALYSIS Performed By: #### 2 [id number] #### [facility],[address] [place] [address] Start: 09-26-[address] Florentin [...] of cholecystectomy Hx of cholecys tectomy Dr. Kimberlee Perdomo MD Plan of Treatment Date Care Activity Detail Author Start: 11-18-2024 [facility] discharge [facility] Start: 11-14-2024 Referral to general surgeon [facility] Start: 11-14-2024 Microbial culture, body fluid [facility] Start: 11-14-2024 End: 11-14-2024 [facility] Start: 11-14-2024 Assessment of risk of venous thromboembolism [facility] Start: 11-14-2024 Insertion of catheter into peripheral vein [facility] Start: 11-14-2024 Providing care according to standard [facility] Start: 11-14-2024 Referral to gastroenterology service [facility] Start: 11-14-2024 Referral to service [facility] Start: 11-14-2024 Following clinical pathway protocol [facility] Start: 11-14-2024 Admission procedure [facility] Start: 11-14-2024 Anaerobic microbial culture Anaerobic Culture [facility] Start: 11-14-2024 Blood culture Blood Culture [facility] Start: 11-14-2024 Patient referral to dietitian [facility] Start: 11-13-2024 Ercp biliary/panc duct stent exchange w/dil&wire ERCP STENT EXCHANGE W/DILATE [facility] Start: 11-13-2024 Ercp remove calculi/debris biliary/pancreas duct ERCP REMOVE DUCT CALCULI [facility] Start: 11-13-2024 Patient discharge [facility] Start: 10-28-2024 Radionuclide study of abdomen [facility] Start: 10-23-2024 Patient discharge [facility] Start: 10-21-2024 Application of intermittent pneumatic compression device [facility] Start: 10-21-2024 Preoperative care [facility] Start: 10-20-2024 Incentive spirometry [facility] Start: 10-20-2024 Admission procedure [facility] Start: 10-20-2024 Ambulation without limitation [facility] Start: 10-20-2024 Assessment of risk of venous thromboembolism [facility] Start: 10-20-2024 Insertion of catheter into peripheral vein [facility] Start: 10-20-2024 Measuring intake and output [facility] Start: 10-20-2024 Providing care according to standard [facility] Start: 10-20-2024 Verification routine [facility] Start: 10-20-2024 Hospital admission, emergency, from emergency room, medical nature [facility] Start: 10-20-2024 End: 10-20-2024 [facility] Start: 10-20-2024 Bacteria identified in Urine by Culture Urine Culture [facility] Start: 10-20-2024 Urine culture [facility] Start: 09-26-2024 [facility] Start: 09-26-2024 Patient discharge [facility] Start: 09-25-2024 Application of intermittent pneumatic compression device [facility] Start: 09-25-2024 Following clinical pathway protocol [facility] Start: 09-25-2024 Assessment of risk of venous thromboembolism [facility] Start: 09-25-2024 Documentation procedure [facility] Start: 09-25-2024 Incentive spirometry [facility] Start: 09-25-2024 Insertion of catheter into peripheral vein [facility] Start: 09-25-2024 Measuring intake and output [facility] Start: 09-25-2024 Providing care according to standard [facility] Start: 09-25-2024 Provision of activity privileges [facility] Start: 09-25-2024 Referral to gastroenterology service [facility] Start: 09-25-2024 Referral to general surgeon [facility] Start: 09-25-2024 [facility] Start: 09-25-2024 Admission procedure [facility] Start: 09-25-2024 Verification routine [facility] Start: 09-25-2024 End: 09-25-2024 Endoscopic retrograde cholangiopancreatography [facility] Start: 09-25-2024 Fluoroscopic guidance [facility].R. Fluoro for [facility] Start: 09-25-2024 Hospital admission, emergency, from emergency room, medical nature [facility] Start: 09-25-2024 Patient referral to dietitian [facility] Alanine aminotransfe rase [Enzymatic activity/volume] in Serum or Plasma [facility] Albumin [Mass/volume ] in Serum or Plasma [facility] Alkaline phosphatase [Enzymatic activity/volume] in Serum or Plasma [facility] Anion gap in Serum or Plasma [facility] Bilirubin, total measurement [facility] BUN/Creatinine ratio [facility] Calcium [Mass/volume ] in Serum or Plasma [facility] Carbon dioxide, tota l [Moles/volume] in Central venous blood [facility] Creatinine [Mass/vol ume] in Serum or Plasma [facility] Erythrocyte mean cor puscular volume determination [facility] Glucose [Mass/volume ] in Serum or Plasma [facility] Hematocrit [Volume F raction] of Blood [facility] Hemoglobin [Mass/volume] in Blood [facility] Leukocytes [#/volume] in Blood [facility] Mean corpuscular hem oglobin concentration determination [facility] Mean corpuscular hem oglobin determination [facility] Measurement of renal function [facility] Neutrophil count [facility] Neutrophil percent d ifferential count [facility] Patient referral [facility] Work Phone: Platelets [#/volume] in Blood [facility] Potassium measurement [facility] Red blood cell count [facility] Red cell distributio n width determination [facility] Serum chloride measurement [facility] Sodium measurement [facility] Total protein measurement [facility] Urea nitrogen [Mass/ volume] in Serum or Plasma [facility] Payers Date Payer Category Payer Self-pay 2024 Unknown [id number] 2000 Unknown [id number] 2.16.8 [id number] Unknown [facility] [employer] [id number] Unknown [id number] 2.16.8 40.1.480192.3.579.2.462 Unknown [id number] 2.16.8 40.1.587842.3.579.2.462 Unknown [id number] 2.16.8 40.1.245051.3.579.2.462 Unknown [id number] 2.16.8 40.1.606023.3.579.2.462 Unknown [id number] 2.16.8 40.1.789346.3.579.2.462 Unknown [id number] 2.16.8 40.1.347145.3.579.2.462 Unknown [id number] 2.16.8 40.1.572751.3.579.2.462 Unknown [id number] 2.16.8 40.1.794669.3.579.2.462 Unknown [id number] 2.16.8 40.1.096746.3.579.2.462 Unknown [id number] 2.16.8 40.1.624391.3.579.2.462 Unknown [id number] 2.16.8 40.1.392952.3.579.2.462 Unknown [id number] 2.16.8 40.1.535794.3.579.2.462 Unknown [id number] 2.16.8 40.1.091805.3.579.2.462 Unknown [id number] 2.16.8 40.1.028611.3.579.2.462 Unknown [id number] 2.16.8 40.1.034052.3.579.2.462 Unknown [id number] 2.16.8 40.1.699356.3.579.2.462 Unknown [id number] 2.16.8 40.1.778291.3.579.2.462 Unknown [id number] 2.16.8 40.1.638000.3.579.2.462 Unknown [id number] 2.16.8 40.1.011036.3.579.2.462 Unknown [id number] 2.16.8 40.1.189817.3.579.2.462 Unknown [id number] 2.16.8 40.1.090982.3.579.2.462 Unknown [id number] 2.16.8 40.1.326999.3.579.2.462 Unknown [id number] 2.16.8 40.1.341591.3.579.2.462 Unknown [id number] 2.16.8 40.1.967571.3.579.2.462 Unknown [id number] 2.16.8 40.1.341815.3.579.2.462 Unknown [id number] 2.16.8 40.1.756451.3.579.2.462 Unknown [id number] 2.16.8 40.1.413169.3.579.2.462 Unknown [id number] 2.16.8 40.1.273936.3.579.2.462 Unknown [id number] 2.16.8 40.1.731909.3.579.2.462 Unknown [id number] 2.16.8 40.1.236081.3.579.2.462 Unknown [id number] 2.16.8 40.1.781708.3.579.2.462 Unknown [id number] 2.16.8 40.1.038908.3.579.2.462 Social History Date Type Detail Facility Start: 09-25-2024 End: 11-14-2024 Tobacco smoking status NHIS Never smoked tobacco (finding) [facility] Start: 09-25-2024 End: 09-26-2024 Sex Female (finding) [facility] Start: 2000 Sex Assigned At Female [facility] Tobacco smoking consumption unknown [employer] Work Phone: NEGATED: Highlighted row Not [facility] NEGATED: Highlighted row No Social History Information Available No Social History Information Available [facility] [email or web address] Work Phone: Medical Equipment Procedure Code Equipment Code Equipment Origin al Text Equipment Identifier Dates ERCP (endoscopic retrograde cholangiopancreatog jossy) ([id number]) Polymeric biliary stent, non-bioabsorbable [id number] FDA Start: 09-25-2024 ERCP (endoscopic retrograde cholangiopancreatog jossy) Polymeric pancreatic stent, non-bioabsorbable ()[id number] FDA Start: 09-25-2024 ERCP (endoscopic retrograde cholangiopancreatog jossy) ([id number]) Polymer-metal biliary stent, non-bioabsorbable ()[id number] FDA Start: 11-13-2024 ERCP (endoscopic retrograde cholangiopancreatog jossy) ([id number]) Polymeric biliary stent, non-bioabsorbable ()[id number] FDA Start: 11-16-2024 ERCP (endoscopic retrograde cholangiopancreatog jossy) Polymeric biliary stent, non-bioabsorbable ()[id number] FDA Start: 11-16-2024 Goals Date Patient Goal Desired Activity /State Functional Status Date Assessment Result Facility 11-18-2024 Functional status Ambulates;Up ad hemalatha [facility] Work Phone: 10-23-2024 Functional status Ambulates [facility] Work Phone: 09-26-2024 Functional status Up ad hemalatha [facility] Work Phone: 09-26-2024 Functional status None [facility] Work Phone: Mental Status Date Assessment Result Facility 11-18-2024 Cognitive function Voice/Name [facility] Work Phone: 11-13-2024 Cognitive function Level Of Consciousness [facility] Work Phone: 11-13-2024 Cognitive function Voice/Name [facility] Work Phone: 10-23-2024 Cognitive function Voice/Name [facility] Work Phone: 10-20-2024 Cognitive function Level Of Cons ciousness Awake;Alert;Appropriate;Follow s Commands [facility] Work Phone: 09-26-2024 Cognitive function Level Of Cons ciousness Awake;Alert;Appropriate [facility] Work Phone: 09-26-2024 Cognitive function Voice/Name [facility] Work Phone: Clinical Notes 09-25-2024 to 12-02-2024 Note Date & Type Note Facility 12-02-2024 Progress note [facility] 12-02-2024 Progress note Note Date/Time December 02, 2024 1:44pm [facility] [address] [place] [address] OFFICE VISIT Date of Service: 12/02/24 MR#: [id number] Acct: [id number] Name: LUCY CROWLEY V Rep #: [id number] : 2000 Provider: Dr. Jeison Collins MD Age/Sex: 24/F Location: [facility] Status: Signed Intake Vital Signs 11/16/24 13:58 Height 5 ft 7 in Intake Visit Reasons: S/P LAP JOSEM Chief Complaint: s/p cholecystectomy Lap Layer Required: No Is patient in pain?: No Allergies No Known Allergies Allergy (Verified 12/02/24 13:16) Medications ?Medication ?Instructions ?Recorded ?Confirmed ?Type NK 11/12/24 12/02/24 History Have you fallen in the past year?: No Subjective Details: The patient is a 24-year-old female status post a subtotal cholecystectomy for severe acute cholecystitis. She developed a bile leak following the procedure. She has undergone ERCPs. She returns today for post procedure follow-up visit to assess her drain output. She states that still putting out about 25 to 50 ccof bilious drainage a day. Seems to be gradually decreasing. She states overall she is feeling good and not having any issues or problems. Objective Details: She is alert and oriented x 3. She is in no acute distress. Abdomen is soft, nontender and nondistended. ASYE drain with about 25 cc of bilious drainage. She states that this was drainedabout 930 this morning. Coding Level of Care Code Global Post Op Diagnoses Biliary colic K80.50 [facility] Medical History (Updated 11/20/24 @ 00:01 by Karine Fuentes) Ileus due to infection Dilated bowel Abnormal CT of the abdomen Anemia Leukocytosis Transaminitis Hypomagnesemia Lactic acidosis Abdominal pain History of biliary stent insertion Wears glasses Non-smoker Bile leak Biliary colic Surgical History (Updated 12/02/24 @ 13:16 by Letty Child) S/P cholecystectomy History of ERCP Hx of cholecystectomy Hx of appendectomy Family History Mother No problems noted. Father No problems noted. Social History household members: spouse, children and other details: 2 older children at home, 1 miscarriage, 1 09/24/24. Smoking Status: Never smoker alcohol intake: never substance use type: does not use Assessment and Plan (No Qualifiers) Assessment and Plan (1) Biliary colic: Status: Acute Plan: The patient is a 24-year-old female status post a subtotal cholecystectomy for severe acute cholecystitis. She has had multiple ERCPs performed 1 was prior tothe cholecystectomy due to choledocholithiasis. The 2 subsequent ERCPs were formanagement of her bile leak. She continues to leak bile despite upsizing of herstent. I reassured her that this may take more time to heal. I recommend follow-up again in about 2 weeks. She is agreeable to this plan. 12/02/24 1685 <Electronically signed by Aquilino kaur MD> Date _ Aquilino Collins MD Cosigner Signature: Date (if applicable) CC: ~ [facility] Work Phone: 1(831) 357-121906-11-2025 Discharge summary Author Kimberlee Perdomo [facility] Note Date/Time November 18, 2024 3:[address] [facility] Medical Records Department [address] [place] [address] Instructions for Home/Discharge Instructions 11/18/24 1535 MR#: [id number] Acct: [id number] Name: LUCY CROWLEY V Rep #:[id number] : 2000 From: Kimberlee Perdomo MD PCP: Dr. Heather Ruby DO Status:A DM IN Discharge Instructions Diet Discharge Diet: No restrictions DC O2, CPAP, BIPAP needs Home O2 Discharge instructions: No Dressing / Incision Discharge Activity: Return to Normal Activity Weight Bearing Status: Weight bearing as tolerated Dressing / Incision Call your doctor if you observe: Fever of 101 or Higher, Shortness of breath, Swelling in the ankles and Uncontrolled pain Follow Up Care Test Results: Test results from this visit will be discussed in further detail at your follow- up appointment, if applicable. Discharge Plan Admission Admit Date/Time: 11/14/24 17:32 Primary Reason for Your Visit: bile leak after cholecystectomy Attending Provider: Kimberlee Perdomo Primary Care Provider: Heather Ruby Consulting Providers: Julia Joya; Bunny Calderon Discharge Orders/Prescriptions Prescriptions: New amoxicillin-pot clavulanate 875-125 mg tablet 1 tab PO BID Qty: 10 0RF oxycodone 5 mg tablet 5 mg PO Q6H 3 Days Qty: 12 0RF No Action NK Referrals / Follow Up: Heather Ruby DO [Primary Care Provider] - Within 1 Week Aquilino Collins MD [Med Staff - Active Staff] - Within 1 Week Disposition Disposition (needs filled in before D/C Order can be placed): Home, Self Care 11/18/24 1536<Electronically signed by Kimberlee Perdomo MD>Kimberlee Perdomo MD CC: Dr. Heather Ruby DO; Dr. Julia Joya MD; Dr. Bunny Calderon MD ~ Signed [facility] Work Phone: 1(873) 596-601006-11-2025 Discharge summary Author [facility] Note Date/Time November 18, 2024 4:[address] [facility] Medical Records Department [address] [place] [address] Discharge Summary 11/18/24 1536 MR#: [id number] Acct: [id number] Name: LUCY CROWLEY V Rep #:[id number] : 2000 From: Kimberlee Perdomo MD PCP: Dr. Heather Ruby DO Status:A DM IN Location: [place] [address] Providers Date of Admission: 11/14/24 Date of Discharge: 11/18/24 Primary Care Physician: Dr. Heather Ruby DO Consultations 11/14/24 17:43 Consult: Gastroenterology Routine Consulting Provider: [facility] Reason for Consult: Bile leak EMERGENT Consult: No Notified: Yes Date Notified: 11/14/24 Time Notified: 17:34 Method of Notification: Verbal 11/14/24 19:33 Consult: General Surgery Routine Consulting Provider: Julia Joya Reason for Consult: abnormal ct EMERGENT Consult: No Notified: Yes Date Notified: 11/14/24 Time Notified: 19:34 Method of Notification: Verbal Reason For Visit: ABDOMINAL PAIN/NAUSEA VOMITING Diagnosis Discharge Diagnosis (1) Abnormal CT of the abdomen: Status: Acute Code(s): R93.5 - Abnormal findings on diagnostic imaging of other abdominal regions, including retroperitoneum Plan #Abdominal pain with leukocytosis and elevated liver enzymes in the setting of subtotal cholecystectomy with bile leak * She had a covered stent placed in the common bile duct on 11/13/2024. General surgery consulted due to concerns about bile leak. She still does have a AYSE drain in situ. * Leukocytosis has resolved. On IV Zosyn. * Liver enzymes are improving. * Currently tolerating a transitional diet. * Had ERCP yesterday which showed dilatation of the entire main bile duct with presence of cystic duct stones which were removed by biliary sphincterectomy and balloon extraction. 1 stent was removed from the biliary tree and a biliary stent durotomy was performed. 1 temporary stent was placed into the right and left hepatic ducts. * #Dilated bowel * There was concern for possible dilated bowel * General surgery was consulted. Patient does have a history of earlier sick ectomy. Patient started on transitional diet and tolerating it. Management as per general surgery. #: Patient currently and is pumping for breast-feeding. DVT Prophylaxis: Lovenox Disposition: Anticipate DC within the next 24 to 48 hours. Medications at Discharge Home Medications NK 11/12/24 amoxicillin 875 mg-potassium clavulanate 125 mg tablet 1 tab PO BID #10 tabs 11/18/24 oxycodone 5 mg tablet 5 mg PO Q6H 3 days #12 tabs 11/18/24 Hospital Course Operations None and ERCP Procedures None Summary of Care Provided Minutes Spent on Discharge: 46 Hospital Course: Patient is a 24-year-old female with a past medical history as outlined was admitted on 11/14/2024 with a complaint of abdominal pain. She had had subtotal cholecystectomy on 10/21/2024 was subsequently seen in the outpatient setting by gastroenterology on 11/13/2024 due to concerns for biliary leak in the setting of abdominal pain. She had an ERCP done and a biliary leak was found along with choledocholithiasis and a moderately dilated biliary system. As of enterotomy was performed then and she had complete removal of the stone along with balloon extraction. 1 stent was removed from the biliary tree and a covered metal stentwas placed in the common bile duct. She did well after the procedure but subsequently developed abdominal pain with several episodes of nausea and vomiting. She went to [facility] ED and was transferred [facility] as she had received all her care here prior to this. On admission lactic acid was mildly elevated and heart rate was elevated at 119 with respiratory rate of 22. LFTs were slightly elevated but her total bilirubin wasnormal. CT of the abdomen and pelvis showed no evidence of abscess or any acutepathology. She was started on broad-spectrum antibiotics and hydrated with IV fluids, given antinausea medications as well as pain medication. Gastroenterology was consulted. General surgery was also consulted. She had ERCP by gastroenterology on 11/16/2024. Entire main bile duct was dilated and cystic duct stones were found and complete removal was accomplished by biliary sphincterotomy and balloon extraction and 1 stent was removed from the biliary tree. A biliary sphincterotomy was performed and 1 temporary stent was placed into the right hepatic duct and another temporary stent placed into the left hepatic duct. Her labs improved and liver enzymes trended downwards. She did have a AYSE drain in situ in general surgery wanted to keep the drain in place until the fluid was no longer bilious and the output was minimal. Patient remained stable and improved. She was discharged on 11/18/2024. She was discharged on p.o. Augmentin for 5-day course and also discharged on p.o. oxycodone 5 mg every 6 hours as needed for total of 3 days and 12 tablets. She is follow-up with her primary care doctor and with gastroenterology as well as general surgery within 1 to 2 weeks. Patient seen and examined prior to discharge. The abdominal pain had improved. She had an uneventful night. Review of systems otherwise negative. Labs and vitals reviewed. Home medication reviewed and reconciled. Physical Exam Const alert, oriented x3, no apparent distress and well nourished Constitutional Narrative: Class I obesity General Appearance: cooperative and comfortable Orientation / Consciousness: awake HEENT normocephalic, head/scalp atraumatic, hearing grossly normal bilaterally and moist oral mucous membranes Eyes PERRL and EOMs intact bilaterally Neck supple and no JVD Lymph Lymphatic: no lymphedema noted Resp normal respiratory effort, normal air movement, no retractions, no use of accessory muscles and clear to auscultation bilaterally Cardio regular rate, regular rhythm, S1 normal heart sound, S2 normal heart sound and no murmurs Cardio Narrative: GI normal to inspection, nondistended, normoactive bowel sounds and soft to palpation GI Narrative: RUQ tenderness has largely resolved. AYSE drain in situ Extremity normal capillary refill, no clubbing, cyanosis or edema and no calf tenderness Extremity Narrative: Pedal and radial pulses are 2+ General Extremity: no tenderness to palpation of joints or extremities Skin no rashes or lesions noted General Skin Exam: no breakdown Neuro oriented x3, moves all extremities, no focal motor deficits, no sensory deficitsnoted and deep tendon reflexes 2+ bilaterally Sensorium / Orientation: awake and alert Speech: speech normal Motor Exam: general weakness Psych thought process normal, cooperative and affect normal Appearance: appropriate Weight / BMI Weight Weight: 205 lb 6.4 oz Body Mass Index (BMI) 32.1 ABG / Lab / Microbiology Data 11/18/24 05:35 11/18/24 05:35 Laboratory: Laboratory Results - last 24 hr 11/18/24 05:35: WBC 7.2, RBC 3.57 L, Hgb 10.7 L, Hct 31.2 L, MCV 87.4, MCH 30.0,MCHC 34.3, RDW Std Deviation 40.2, RDW Coeff of Rebeca 12.6, Plt Count 200, MPV 10.2, Immature Gran % (Auto) 1.400 H, Neut % (Auto) 52.3, Lymph % (Auto) 33.4, [place] % (Auto) 5.8, Eos % (Auto) 6.7 H, Baso % (Auto) 0.4, Absolute Neuts (auto) 3.8, Absolute Lymphs (auto) 2.40, Nucleated RBC % 0, Sodium 139, Potassium 3.9, Chloride 104, Carbon Dioxide 23.7, Anion Gap 11, BUN 7, Creatinine 0.63 L, EstimCreat Clear Calc 159.96, Est GFR (MDRD) Non-Af 126, BUN/Creatinine Ratio 10.9, Glucose 115 H, Calcium 9.1, Total Bilirubin 0.30, AST 19, ALT 60 H, Alkaline Phosphatase 123 H, Total Protein 6.2, Albumin 3.5, Globulin 2.8, Albumin/Globulin Ratio 1.2 Microbiology: Microbiology 11/14/24 18:30 John Amador Drainage Gram Stain - Final 11/14/24 18:30 John Amador Drainage Body Fluid Culture - Final Enterobacter cloacae complex Klebsiella pneumoniae sp pneum Enterococcus faecium 11/14/24 18:30 John Amador Drainage Anaerobic Culture - Preliminary 11/14/24 18:10 Blood Culture (Wb) #2 - Left Hand Blood Culture - Preliminary No growth in 48 hours. 11/14/24 18:00 Blood Culture (Wb) - Anticubital Left Blood Culture - Preliminary No growth in 48 hours. D/C Instructions Discharge Diet: No restrictions Discharge Activity: Return to Normal Activity Weight Bearing Status: Weight bearing as tolerated Call your doctor if you observe: Fever of 101 or Higher, Shortness of breath, Swelling in the ankles and Uncontrolled pain DC O2, CPAP, BIPAP Needs Home O2 Discharge instructions: No DC home with Oxygen: No Meaningful Use Info Meaningful Use Meaningful Use [...] Simvastatin 80mg Discharge Plan Admission Admit Date/Time: 11/14/24 17:32 Primary Reason for Your Visit: bile leak after cholecystectomy Attending Provider: Kimberlee Perdomo Primary Care Provider: Heather Ruby Consulting Providers: Julia Joya; Bunny Calderon Discharge Orders/Prescriptions Prescriptions: New amoxicillin-pot clavulanate 875-125 mg tablet 1 tab PO BID Qty: 10 0RF oxycodone 5 mg tablet 5 mg PO Q6H 3 Days Qty: 12 0RF No Action NK Referrals / Follow Up: Heather Ruby DO [Primary Care Provider] - Within 1 Week Aquilino Collins MD [Med Staff - Active Staff] - Within 1 Week Disposition Disposition (needs filled in before D/C Order can be placed): Home, Self Care Charges/Coding Visit Charges Inpatient E&M: 62273 Disch Hosp >30min 11/18/24 1642 <Electronically signed by Kimberlee Perdomo MD> Cosigner Signature (if applicable): CC: Dr. Heather Ruby DO; Dr. Kimberlee Perdomo MD~ Signed [facility] Work Phone: [phone]) 375-203106-11-2025 Discharge summary [facility] Medical Records Department [address] [place] [address] Discharge Summary 11/18/24 1536 MR#: [id number] Acct: [id number] Name: LUCY CROWLEY V Rep #:[id number] : 2000 From: Kimberlee Perdomo MD PCP: Dr. Heather N Flori, DO Status:A DM IN Location: MS3 CO679-3 Providers Date of Admission: 11/14/24 Date of Discharge: 11/18/24 Primary Care Physician: Dr. Heather Ruby DO Consultations 11/14/24 17:43 Consult: Gastroenterology Routine Consulting Provider: Shreya Branham Reason for Consult: Bile leak EMERGENT Consult: No Notified: Yes Date Notified: 11/14/24 Time Notified: 17:34 Method of Notification: Verbal 11/14/24 19:33 Consult: General Surgery Routine Consulting Provider: Julia Joya Reason for Consult: abnormal ct EMERGENT Consult: No Notified: Yes Date Notified: 11/14/24 Time Notified: 19:34 Method of Notification: Verbal Reason For Visit: ABDOMINAL PAIN/NAUSEA VOMITING Diagnosis Discharge Diagnosis (1) Abnormal CT of the abdomen: Status: Acute Code(s): R93.5 - Abnormal findings on diagnostic imaging of other abdominal regions, including retroperitoneum Plan #Abdominal pain with leukocytosis and elevated liver enzymes in the setting of subtotal cholecystectomy with bile leak * She had a covered stent placed in the common bile duct on 11/13/2024. General surgery consulted dueto concerns about bile leak. She still does have a AYSE drain in situ. * Leukocytosis has resolved. On IV Zosyn. * Liver enzymes are improving. * Currently tolerating a transitional diet. * Had ERCP yesterday which showed dilatation of the entire main bile duct with presence of cystic duct stones which were removed by biliary sphincterectomy and balloon extraction. 1 stent was removedfrom the biliary tree and a biliary stent durotomy was performed. 1 temporary stent was placed intothe right and left hepatic ducts. * #Dilated bowel * There was concern for possible dilated bowel * General surgery was consulted. Patient does have a history of earlier sick ectomy. Patient started on transitional diet and tolerating it. Management as per general surgery. #: Patient currently and is pumping for breast-feeding. DVT Prophylaxis: Lovenox Disposition: Anticipate DC within the next 24 to 48 hours. Medications at Discharge Home Medications NK 11/12/24 amoxicillin 875 mg-potassium clavulanate 125 mg tablet 1 tab PO BID #10 tabs 11/18/24 oxycodone 5 mg tablet 5 mg PO Q6H 3 days #12 tabs 11/18/24 Hospital Course Operations None and ERCP Procedures None Summary of Care Provided Minutes Spent on Discharge: 46 Hospital Course: Patient is a 24-year-old female with a past medical history as outlined was admitted on 11/14/2024 with a complaint of abdominal pain. She had had subtotal cholecystectomy on 10/21/2024 was subsequentlyseen in the outpatient setting by gastroenterology on 11/13/2024 due to concerns for biliary leak in the setting of abdominal pain. She had an ERCP done and a biliary leak was found along with choledocholithiasis and a moderately dilated biliary system. As of enterotomy was performed then and she hadcomplete removal of the stone along with balloon extraction. 1 stent was removed from the biliary tree and a covered metal stentwas placed in the common bile duct. She did well after the procedure but subsequently developed abdominal pain with several episodes of nausea and vomiting. She went to [facility] ED and was transferred [facility] as she had received all her care here prior to this. On admission lactic acid was mildly elevated and heart rate was elevated at 119 with r espiratory rate of 22. LFTs were slightly elevated but her total bilirubin wasnormal. CT of the abdomen and pelvis showed no evidence of abscess or any acutepathology. She was started on broad-spectrum antibiotics and hydrated with IV fluids, given antinausea medications as well as pain medication. Gastroenterology was consulted. General surgery was also consulted. She had ERCP by gastroenterology on 11/16/2024. Entire main bile duct was dilated and cystic duct stones were found and complete removal was accomplished by biliary sphincterotomy and balloon extraction and 1 stent was removed from the biliary tree. A biliary sphincterotomy was performed and 1 temporary stent was placed into the right hepatic duct and another temporary stent placed into the left hepatic duct. Her labs improved and liver enzymes trended downwards. She did have a AYSE drain in situ in general surgery wanted to keepthe drain in place until the fluid was no longer bilious and the output was minimal. Patient remained stable and improved. She was discharged on 11/18/2024. She was discharged on p.o. Augmentin for 5-day course and also discharged on p.o. oxycodone 5 mg every 6 hours as needed for total of 3 days and 12 tablets. She is follow-up with her primary care doctor and with gastroenterology as well as general surgery within 1 to 2 weeks. Patient seen and examined prior to discharge. The abdominal pain had improved. She had an uneventful night. Review of systems otherwise negative. Labs and vitals reviewed. Home medication reviewed and reconciled. Physical Exam Const alert, oriented x3, no apparent distress and well nourished Constitutional Narrative: Class I obesity General Appearance: cooperative and comfortable Orientation / Consciousness: awake HEENT normocephalic, head/scalp atraumatic, hearing grossly normal bilaterally and moist oral mucous membranes Eyes PERRL and EOMs intact bilaterally Neck supple and no JVD Lymph Lymphatic: no lymphedema noted Resp normal respiratory effort, normal air movement, no retractions, no use of accessory muscles and clear to auscultation bilaterally Cardio regular rate, regular rhythm, S1 normal heart sound, S2 normal heart sound and no murmurs Cardio Narrative: GI normal to inspection, nondistended, normoactive bowel sounds and soft to palpation GI Narrative: RUQ tenderness has largely resolved. AYSE drain in situ Extremity normal capillary refill, no clubbing, cyanosis or edema and no calf tenderness Extremity Narrative: Pedal and radial pulses are 2+ General Extremity: no tenderness to palpation of joints or extremities Skin no rashes or lesions noted General Skin Exam: no breakdown Neuro oriented x3, moves all extremities, no focal motor deficits, no sensory deficitsnoted and deep tendon reflexes 2+ bilaterally Sensorium / Orientation: awake and alert Speech: speech normal Motor Exam: general weakness Psych thought process normal, cooperative and affect normal Appearance: appropriate Weight / BMI Weight Weight: 205 lb 6.4 oz Body Mass Index (BMI) 32.1 ABG / Lab / Microbiology Data 11/18/24 05:35 11/18/24 05:35 Laboratory: Laboratory Results - last 24 hr 11/18/24 05:35: WBC 7.2, RBC 3.57 L, Hgb 10.7 L, Hct 31.2 L, MCV 87.4, MCH 30.0,MCHC 34.3, RDW Std Deviation 40.2, RDW Coeff of Rebeca 12.6, Plt Count 200, MPV 10.2, Immature Gran % (Auto) 1.400 H, Neut% (Auto) 52.3, Lymph % (Auto) 33.4, [place] % (Auto) 5.8, Eos % (Auto) 6.7 H, Baso % (Auto) 0.4, Absolute Neuts (auto) 3.8, Absolute Lymphs (auto) 2.40, Nucleated RBC % 0, Sodium 139, Potassium 3.9, Chloride 104, Carbon Dioxide 23.7, Anion Gap 11, BUN 7, Creatinine 0.63 L, EstimCreat Clear Calc 159.96, Est GFR (MDRD) Non-Af 126, BUN/Creatinine Ratio 10.9, Glucose 115 H, Calcium 9.1, Total Bilirubin 0.30, AST 19, ALT 60 H, Alkaline Phosphatase 123 H, Total Protein 6.2, Albumin 3.5, Globulin 2.8, Albumin/Globulin Ratio 1.2 Microbiology: Microbiology 11/14/24 18:30 John Amador Drainage Gram Stain - Final 11/14/24 18:30 John Amador Drainage Body Fluid Culture - Final Enterobacter cloacae complex Klebsiella pneumoniae sp pneum Enterococcus faecium 11/14/24 18:30 John Amador Drainage Anaerobic Culture - Preliminary 11/14/24 18:10 Blood Culture (Wb) #2 - Left Hand Blood Culture - Preliminary No growth in 48 hours. 11/14/24 18:00 Blood Culture (Wb) - Anticubital Left Blood Culture - Preliminary No growth in 48 hours. D/C Instructions Discharge Diet: No restrictions Discharge Activity: Return to Normal Activity Weight Bearing Status: Weight bearing as tolerated Call your doctor if you observe: Fever of 101 or Higher, Shortness of breath, Swelling in the ankles and Uncontrolled pain DC O2, CPAP, BIPAP Needs Home O2 Discharge instructions: No DC home with Oxygen: No Meaningful Use Info Meaningful Use Meaningful Use [...] Simvastatin 80mg Discharge Plan Admission Admit Date/Time: 11/14/24 17:32 Primary Reason for Your Visit: bile leak after cholecystectomy Attending Provider: Kimberlee Perdomo Primary Care Provider: Heather Ruby Consulting Providers: Julia Joya; Bunny Calderon Discharge Orders/Prescriptions Prescriptions: New amoxicillin-pot clavulanate 875-125 mg tablet 1 tab PO BID Qty: 10 0RF oxycodone 5 mg tablet 5 mg PO Q6H 3 Days Qty: 12 0RF No Action NK Referrals / Follow Up: Heather Ruby DO [Primary Care Provider] - Within 1 Week Aquilino Collins MD [Med Staff - Active Staff] - Within 1 Week Disposition Disposition (needs filled in before D/C Order can be placed): Home, Self Care Charges/Coding Visit Charges Inpatient E&M: 00492 Disch Hosp >30min 11/18/24 1642 Cosigner Signature (if applicable): CC: Dr. Heather Ruby DO; Dr. Kimberlee Perdomo MD~ Signed [facility]06-11-2025 Discharge summary [facility] Medical Records Department [address] [place] [id number] Instructions for Home/Discharge Instructions 11/18/24 1535 MR#: [id number] Acct: [id number] Name: LUCY CROWLEY V Rep #:[id number] : 2000 24 From: Kimberlee Perdomo MD PCP: Dr. Heather Ruby DO Status:A DM IN Discharge Instructions Diet Discharge Diet: No restrictions DC O2, CPAP, BIPAP needs Home O2 Discharge instructions: No Dressing / Incision Discharge Activity: Return to Normal Activity Weight Bearing Status: Weight bearing as tolerated Dressing / Incision Call your doctor if you observe: Fever of 101 or Higher, Shortness of breath, Swelling in the ankles and Uncontrolled pain Follow Up Care Test Results: Test results from this visit will be discussed in further detail at your follow- up appointment, if applicable. Discharge Plan Admission Admit Date/Time: 11/14/24 17:32 Primary Reason for Your Visit: bile leak after cholecystectomy Attending Provider: Kimberlee Perdomo Primary Care Provider: Heather Ruby Consulting Providers: Julia Joya; Bunny Calderon Discharge Orders/Prescriptions Prescriptions: New amoxicillin-pot clavulanate 875-125 mg tablet 1 tab PO BID Qty: 10 0RF oxycodone 5 mg tablet 5 mg PO Q6H 3 Days Qty: 12 0RF No Action NK Referrals / Follow Up: Heather Ruby DO [Primary Care Provider] - Within 1 Week Aquilino Collins MD [Med Staff - Active Staff] - Within 1 Week Disposition Disposition (needs filled in before D/C Order can be placed): Home, Self Care 11/18/24 1536Kimberlee Perdomo MD CC: Dr. Heather Ruby DO; Dr. Julia Joya MD; Dr. Bunny Calderon MD ~ Signed [facility]06-11-2025 [facility] Progress note Author Aquilino Collins [facility] Note Date/Time November 18, 2024 8:[address] [facility] Medical Records Department [address] [place] [address] Progress Note - Surgery 11/18/24812 MR#: [id number] Acct: [id number] Name: LUCY CROWLEY V Rep #:[id number] : 2000 From: Aquilino Collins MD PCP: Dr. Heather Ruby DO Status:A DM IN Location: MS3 KS753-1 Subjective Subjective Patient doing well this morning when seen on rounds. She admitted to some rightupper quadrant discomfort last evening. Labs appear stable Objective Data Objective Data Vital Signs: Vital Signs Temp Pulse Resp BP Pulse Ox O2 Del Method 98.9 F 66 16 125/85 H 98 Room Air 11/18/24 02:39 11/18/24 02:39 11/18/24 02:39 11/18/24 02:39 11/18/24 02:39 11/18/24 02:39 Oxygen Delivery Method Room Air Weight: 205 lb 6.4 oz Body Mass Index (BMI) 32.1 Intake & Output: Intake and Output for Last 24 Hours 11/16/24 11/17/24 11/18/24 23:59 23:59 23:59 Intake Total 3150 / 3150 5000 / 5000 1050 / 1050 Output Total 300 / 300 10 / 40 80 / 80 Balance 2850 / 2850 4990 / 4960 970 / 970 Lab / Micro Data 11/18/24 05:35 11/18/24 05:35 Labs: Laboratory Results - last 24 hr 11/14/24 18:30: Fluid Amylase 13 11/17/24 08:55: WBC 5.2, RBC 3.54 L, Hgb 10.7 L, Hct 31.3 L, MCV 88.4, MCH 30.2,MCHC 34.2, RDW Std Deviation 40.8, RDW Coeff of Rebeca 12.5, Plt Count 173, MPV 10.2, Immature Gran % (Auto) 0.600, Neut % (Auto) 50.5, Lymph % (Auto) 36.9, [place] % (Auto) 5.5, Eos % (Auto) 6.1 H, Baso % (Auto) 0.4, Absolute Neuts (auto) 2.6, Absolute Lymphs (auto) 1.93, Nucleated RBC % 0, Sodium 139, Potassium 3.7, Chloride 105, Carbon Dioxide 23.5, Anion Gap 11, BUN 3 L, Creatinine 0.57 L, Estim Creat Clear Calc 176.80, Est GFR (MDRD) Non-Af 129, BUN/Creatinine Ratio 6.0 L, Glucose 103 H, Calcium 9.1, Total Bilirubin 0.60, AST 26, ALT 75 H, Alkaline Phosphatase 135 H, Total Protein 6.2, Albumin 3.4 L, Globulin 2.8, Albumin/Globulin Ratio 1.2 11/18/24 05:35: WBC 7.2, RBC 3.57 L, Hgb 10.7 L, Hct 31.2 L, MCV 87.4, MCH 30.0,MCHC 34.3, RDW Std Deviation 40.2, RDW Coeff of Rebeca 12.6, Plt Count 200, MPV 10.2, Immature Gran % (Auto) 1.400 H, Neut % (Auto) 52.3, Lymph % (Auto) 33.4, [place] % (Auto) 5.8, Eos % (Auto) 6.7 H, Baso % (Auto) 0.4, Absolute Neuts (auto) 3.8, Absolute Lymphs (auto) 2.40, Nucleated RBC % 0, Sodium 139, Potassium 3.9, Chloride 104, Carbon Dioxide 23.7, Anion Gap 11, BUN 7, Creatinine 0.63 L, EstimCreat Clear Calc 159.96, Est GFR (MDRD) Non-Af 126, BUN/Creatinine Ratio 10.9, Glucose 115 H, Calcium 9.1, Total Bilirubin 0.30, AST 19, ALT 60 H, Alkaline Phosphatase 123 H, Total Protein 6.2, Albumin 3.5, Globulin 2.8, Albumin/Globulin Ratio 1.2 Micro: Microbiology 11/14/24 18:30 John Amador Drainage Gram Stain - Final 11/14/24 18:30 John Amador Drainage Body Fluid Culture - Final Enterobacter cloacae complex Klebsiella pneumoniae sp pneum Enterococcus faecium 11/14/24 18:10 Blood Culture (Wb) #2 - Left Hand Blood Culture - Preliminary No growth in 48 hours. 11/14/24 18:00 Blood Culture (Wb) - Anticubital Left Blood Culture - Preliminary No growth in 48 hours. Physical Exam Narrative She is alert and oriented x 3. She is in no acute distress. Abdomen is soft and minimally tender AYSE drain with mostly serous drainage although there may be a slight tinge of bilious fluid present Assessment & Plan Assessment/Plan (1) Abnormal CT of the abdomen: PLAN: Plan The patient is a 24-year-old female status post a recent subtotal cholecystectomy for severe acute cholecystitis. She developed a bile leak following procedure. She has had ERCPs and larger stents placed. She is doing well. Labs are returning to normal. Plan is to continue antibiotics and continue the AYSE drain until this fluid is no longer bilious and the output is minimal. She is agreeable this plan. Will continue to follow. 11/18/24 0816 <Electronically signed by Aquilino Collins MD> Cosigner Signature (if applicable): CC: ~ Signed [facility] Work Phone: 1(618) 227-802906-11-2025 Progress note [facility] Medical Records Department [address] [place] [address] Progress Note - Surgery 11/18/24 0813 MR#: [id number] Acct: [id number] Name: LUCY CROWLEY V Rep #:[id number] : 2000 From: Aquilino Collins MD PCP: Dr. Heather Ruby, DO Status:A DM IN Location: MS3 QC802-3 Subjective Subjective Patient doing well this morning when seen on rounds. She admitted to some rightupper quadrant discomfort last evening. Labs appear stable Objective Data Objective Data Vital Signs: Vital Signs Temp Pulse Resp BP Pulse Ox O2 Del Method 98.9 F 66 16 125/85 H 98 Room Air 11/18/24 02:39 11/18/24 02:39 11/18/24 02:39 11/18/24 02:39 11/18/24 02:39 11/18/24 02:39 Oxygen Delivery Method Room Air Weight: 205 lb 6.4 oz Body Mass Index (BMI) 32.1 Intake & Output: Intake and Output for Last 24 Hours 11/16/24 11/17/24 11/18/24 23:59 23:59 23:59 Intake Total 3150 / 3150 5000 / 5000 1050 / 1050 Output Total 300 / 300 10 40 80 / 80 Balance 2850 / 2850 4990 / 4960 970 / 970 Lab / Micro Data 11/18/24 05:35 11/18/24 05:35 Labs: Laboratory Results - last 24 hr 11/14/24 18:30: Fluid Amylase 13 11/17/24 08:55: WBC 5.2, RBC 3.54 L, Hgb 10.7 L, Hct 31.3 L, MCV 88.4, MCH 30.2,MCHC 34.2, RDW Std Deviation 40.8, RDW Coeff of Rebeca 12.5, Plt Count 173, MPV 10.2, Immature Gran % (Auto) 0.600, Neut %(Auto) 50.5, Lymph % (Auto) 36.9, [place] % (Auto) 5.5, Eos % (Auto) 6.1 H, Baso % (Auto) 0.4, Absolute Neuts (auto) 2.6, Absolute Lymphs (auto) 1.93, Nucleated RBC % 0, Sodium 139, Potassium 3.7, Chloride 105, Carbon Dioxide 23.5, Anion Gap 11, BUN 3 L, Creatinine 0.57 L, Estim Creat Clear Calc 176.80, Est GFR (MDRD) Non-Af 129, BUN/Creatinine Ratio 6.0 L, Glucose 103 H, Calcium 9.1, Total Bilirubin 0.60, AST 26, ALT 75 H, Alkaline Phosphatase 135 H, Total Protein 6.2, Albumin 3.4 L, Globulin 2.8, Albumin/Globulin Ratio 1.2 11/18/24 05:35: WBC 7.2, RBC 3.57 L, Hgb 10.7 L, Hct 31.2 L, MCV 87.4, MCH 30.0,MCHC 34.3, RDW Std Deviation 40.2, RDW Coeff of Rebeca 12.6, Plt Count 200, MPV 10.2, Immature Gran % (Auto) 1.400 H, Neut% (Auto) 52.3, Lymph % (Auto) 33.4, [place] % (Auto) 5.8, Eos % (Auto) 6.7 H, Baso % (Auto) 0.4, Absolute Neuts (auto) 3.8, Absolute Lymphs (auto) 2.40, Nucleated RBC % 0, Sodium 139, Potassium 3.9, Chloride 104, Carbon Dioxide 23.7, Anion Gap 11, BUN 7, Creatinine 0.63 L, EstimCreat Clear Calc 159.96, Est GFR (MDRD) Non-Af 126, BUN/Creatinine Ratio 10.9, Glucose 115 H, Calcium 9.1, Total Bilirubin 0.30, AST 19, ALT 60 H, Alkaline Phosphatase 123 H, Total Protein 6.2, Albumin 3.5, Globulin 2.8, Albumin/Globulin Ratio 1.2 Micro: Microbiology 11/14/24 18:30 John Amador Drainage Gram Stain - Final 11/14/24 18:30 John Amador Drainage Body Fluid Culture - Final Enterobacter cloacae complex Klebsiella pneumoniae sp pneum Enterococcus faecium 11/14/24 18:10 Blood Culture (Wb) #2 - Left Hand Blood Culture - Preliminary No growth in 48 hours. 11/14/24 18:00 Blood Culture (Wb) - Anticubital Left Blood Culture - Preliminary No growth in 48 hours. Physical Exam Narrative She is alert and oriented x 3. She is in no acute distress. Abdomen is soft and minimally tender YASE drain with mostly serous drainage although there may be a slight tinge of bilious fluid present Assessment & Plan Assessment/Plan (1) Abnormal CT of the abdomen: PLAN: Plan The patient is a 24-year-old female status post a recent subtotal cholecystectomy for severe acute cholecystitis. She developed a bile leak following procedure. She has had ERCPs and larger stents placed. She is doing well. Labs are returning to normal. Plan is to continue antibiotics and continue the AYSE drain until this fluid is no longer bilious and the output is minimal. She is agreeable this plan. Will continue to follow. 11/18/24 0816 Cosigner Signature (if applicable): CC: ~ [facility]igned [facility] Progress note Author Kimberlee Perdomo [facility] Note Date/Time November 17, 2024 5:[address] [facility] Medical Records Department [address] [place] [address] Progress Note 11/17/24 1532 MR#: [id number] Acct: [id number] Name: LUCY CROWLEY V Rep #:[id number] : 2000 From: Kimberlee Perdomo MD PCP: Dr. Heather Ruby, DO Status:A DM IN Location: MS3 [id number] Subjective Subjective Patient seen and examined. I saw the patient with her nurse at her bedside. Her was in the room. She complained of feeling minimal abdominal pain. She had ERCP yesterday. She denies any nausea vomiting or any other symptoms. Review of systems otherwise negative. She has remained hemodynamically stable. Objective Data Objective Data Vital Signs: Vital Signs Temp Pulse Resp BP Pulse Ox O2 Del Method 98.5 F 67 16 117/71 96 Room Air 11/17/24 15:03 11/17/24 15:03 11/17/24 15:03 11/17/24 15:03 11/17/24 15:03 11/17/24 15:20 Oxygen Delivery Method Room Air Weight: 205 lb 6.4 oz Body Mass Index (BMI) 32.1 Intake & Output: Intake and Output for Last 24 Hours 11/15/24 11/16/24 11/17/24 23:59 23:59 23:59 Intake Total 2500 / 2500 3150 / 3150 3550 / 3550 Output Total 90 / 90 300 / 300 Balance 2410 / 2410 2850 / 2850 3540 / 3540 Lab / Micro Data 11/17/24 08:55 11/17/24 08:55 Labs: Laboratory Results - last 24 hr 11/16/24 19:19: WBC 6.9, RBC 4.21, Hgb 12.5, Hct 37.2, MCV 88.4, MCH 29.7, MCHC 33.6, RDW Std Deviation 40.8, RDW Coeff of Rebeca 12.7, Plt Count 220, MPV 10.4, Immature Gran % (Auto) 0.600, Neut % (Auto) 70.0, Lymph % (Auto) 21.9, [place] % (Auto) 4.4, Eos % (Auto) 2.8, Baso % (Auto) 0.3, Absolute Neuts (auto) 4.8, Absolute Lymphs (auto) 1.50, Nucleated RBC % 0, ESR 10, Sodium 142, Potassium 3.8, Chloride 105, Carbon Dioxide 24.3, Anion Gap 12, BUN 5, Creatinine 0.68 L, Estim Creat Clear Calc 148.20, Est GFR (MDRD) Non-Af 124, BUN/Creatinine Ratio 7.2 L, Glucose 94, Calcium 9.0, Total Bilirubin 0.64, AST 45 H, ALT 101 H, Alkaline Phosphatase 166 H, C-React Prot Ext Range 68.90 H, Total Protein 6.8, Albumin 3.7, Globulin 3.1, Albumin/Globulin Ratio 1.2 11/17/24 08:55: WBC 5.2, RBC 3.54 L, Hgb 10.7 L, Hct 31.3 L, MCV 88.4, MCH 30.2,MCHC 34.2, RDW Std Deviation 40.8, RDW Coeff of Rebeca 12.5, Plt Count 173, MPV 10.2, Immature Gran % (Auto) 0.600, Neut % (Auto) 50.5, Lymph % (Auto) 36.9, [place] % (Auto) 5.5, Eos % (Auto) 6.1 H, Baso % (Auto) 0.4, Absolute Neuts (auto) 2.6, Absolute Lymphs (auto) 1.93, Nucleated RBC % 0, Sodium 139, Potassium 3.7, Chloride 105, Carbon Dioxide 23.5, Anion Gap 11, BUN 3 L, Creatinine 0.57 L, Estim Creat Clear Calc 176.80, Est GFR (MDRD) Non-Af 129, BUN/Creatinine Ratio 6.0 L, Glucose 103 H, Calcium 9.1, Total Bilirubin 0.60, AST 26, ALT 75 H, Alkaline Phosphatase 135 H, Total Protein 6.2, Albumin 3.4 L, Globulin 2.8, Albumin/Globulin Ratio 1.2 Micro: Microbiology 11/14/24 18:10 Blood Culture (Wb) #2 - Left Hand Blood Culture - Preliminary No growth in 48 hours. 11/14/24 18:00 Blood Culture (Wb) - Anticubital Left Blood Culture - Preliminary No growth in 48 hours. 11/14/24 18:30 John Amador Drainage Body Fluid Culture - 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 Gram negative kellee GNR lactose automobile or truck rental dispatcher#2 Alpha hemolytic organism Radiography Diagnostic Testing: Radiology Impression Endo Retro Cholangiopancreatogram 11/16/24 09:52 IMPRESSION: Insertion of 2 biliary stents and the pancreatic stent in good position. Reading Location: [facility] Abdomen/Pelvis CT 11/16/24 19:02 IMPRESSION: Interval biliary stent exchange. Persistent dilation of the right lower quadrant bowel loops, which may represent ileus or focal obstruction. If clinical concern, consider CT abdomen pelvis with oral contrast. Reading Location: [id number] Physical Exam Const alert, oriented x3, no apparent distress and well nourished Constitutional Narrative: Class I obesity General Appearance: cooperative and well developed HEENT normocephalic, head/scalp atraumatic, hearing grossly normal bilaterally and moist oral mucous membranes Eyes PERRL and EOMs intact bilaterally Neck supple and no JVD Lymph Lymphatic: no lymphedema noted Resp normal respiratory effort, normal air movement, no retractions, no use of accessory muscles and clear to auscultation bilaterally Cardio regular rate, regular rhythm, S1 normal heart sound and S2 normal heart sound GI normal to inspection, nondistended, normoactive bowel sounds and soft to palpation GI Narrative: Mild right upper quadrant tenderness, no guarding or rebound tenderness. AYSE drain in situ Extremity normal capillary refill, no clubbing, cyanosis or edema and no calf tenderness Extremity Narrative: Pedal and radial pulses are 2+ General Extremity: no tenderness to palpation of joints or extremities Skin General Skin Exam: no breakdown Neuro oriented x3, moves all extremities, no focal motor deficits, no sensory deficitsnoted and deep tendon reflexes 2+ bilaterally Speech: speech normal Motor Exam: general weakness Psych thought process normal, cooperative and affect normal Psych Narrative: V Appearance: appropriate Assessment & Plan Assessment/Plan (1) History of biliary stent insertion: (2) Bile leak: PLAN: Plan #Abdominal pain with leukocytosis and elevated liver enzymes in the setting of subtotal cholecystectomy with bile leak * She had a covered stent placed in the common bile duct on 11/13/2024. General surgery consulted due to concerns about bile leak. She still does have a AYSE drain in situ. * Leukocytosis has resolved. On IV Zosyn. * Liver enzymes are improving. * Currently tolerating a transitional diet. * Had ERCP yesterday which showed dilatation of the entire main bile duct with presence of cystic duct stones which were removed by biliary sphincterectomy and balloon extraction. 1 stent was removed from the biliary tree and a biliary stent durotomy was performed. 1 temporary stent was placed into the right and left hepatic ducts. * #Dilated bowel * There was concern for possible dilated bowel * General surgery was consulted. Patient does have a history of earlier sick ectomy. Patient started on transitional diet and tolerating it. Management as per general surgery. #: Patient currently and is pumping for breast-feeding. DVT Prophylaxis: Lovenox Disposition: Anticipate DC within the next 24 to 48 hours. Charges/Coding Visit Charges Inpatient E&M: 12386 Subs Hosp L2 11/17/24 1751 <Electronically signed by Kimberlee Perdomo MD> Kimberlee Perdomo MD Cosigner Signature (if applicable): CC: ~ Signed [facility] Work Phone: 1(234) 170-680906-10-2025 Progress note Author Wendy Santana [facility] Note Date/Time November 17, 2024 4:28 pm [facility] Medical Records Department [address] [place] [address] Progress Note - Surgery 11/17/24 0941 MR#: [id number] Acct: [id number] Name: LUCY CROWLEY V Rep #:[id number] : 2000 From: Wendy MORALES PA-C PCP: Dr. Heather Ruby, Status:A DM IN Location: MS3 [id number] Subjective Subjective Patient evaluated sitting comfortably in her bed. She denies any nausea, vomiting. She notes some abdominal cramping otherwise no true pain. She is tolerating a diet well. She notes passing flatus yesterday. She has not had a bowel movement since Saturday. Objective Data Objective Data Vital Signs: Vital Signs Temp Pulse Resp BP Pulse Ox O2 Del Method 98.1 F 72 16 113/71 96 Room Air 11/17/24 08:10 11/17/24 08:10 11/17/24 08:10 11/17/24 08:10 11/17/24 08:10 11/17/24 08:10 Oxygen Delivery Method Room Air Weight: 205 lb 6.4 oz Body Mass Index (BMI) 32.1 Intake & Output: Intake and Output for Last 24 Hours 11/15/24 11/16/24 11/17/24 23:59 23:59 23:59 Intake Total 2500 / 2500 3150 / 3150 2049 Output Total 90 / 90 300 / 300 Balance 2410 / 2410 2850 / 2850 2039 / 2039 Lab / Micro Data 11/17/24 08:55 11/16/24 19:19 Labs: Laboratory Results - last 24 hr 11/16/24 06:03: Total Bilirubin 0.85, Direct Bilirubin 0.45 H, AST 35 H, ALT 99 H, Alkaline Phosphatase 133 H, Total Protein 6.0, Albumin 3.3 L, Globulin 2.7 11/16/24 12:00: Urine Test Negative 11/16/24 19:19: WBC 6.9, RBC 4.21, Hgb 12.5, Hct 37.2, MCV 88.4, MCH 29.7, MCHC 33.6, RDW Std Deviation 40.8, RDW Coeff of Rebeca 12.7, Plt Count 220, MPV 10.4, Immature Gran % (Auto) 0.600, Neut % (Auto) 70.0, Lymph % (Auto) 21.9, [place] % (Auto) 4.4, Eos % (Auto) 2.8, Baso % (Auto) 0.3, Absolute Neuts (auto) 4.8, Absolute Lymphs (auto) 1.50, Nucleated RBC % 0, ESR 10, Sodium 142, Potassium 3.8, Chloride 105, Carbon Dioxide 24.3, Anion Gap 12, BUN 5, Creatinine 0.68 L, Estim Creat Clear Calc 148.20, Est GFR (MDRD) Non-Af 124, BUN/Creatinine Ratio 7.2 L, Glucose 94, Calcium 9.0, Total Bilirubin 0.64, AST 45 H, ALT 101 H, Alkaline Phosphatase 166 H, C-React Prot Ext Range 68.90 H, Total Protein 6.8, Albumin 3.7, Globulin 3.1, Albumin/Globulin Ratio 1.2 11/17/24 08:55: WBC 5.2, RBC 3.54 L, Hgb 10.7 L, Hct 31.3 L, MCV 88.4, MCH 30.2,MCHC 34.2, RDW Std Deviation 40.8, RDW Coeff of Rebeca 12.5, Plt Count 173, MPV 10.2, Immature Gran % (Auto) 0.600, Neut % (Auto) 50.5, Lymph % (Auto) 36.9, [place] % (Auto) 5.5, Eos % (Auto) 6.1 H, Baso % (Auto) 0.4, Absolute Neuts (auto) 2.6, Absolute Lymphs (auto) 1.93, Nucleated RBC % 0 Micro: Microbiology 11/14/24 18:30 John Amador Drainage Body Fluid Culture - 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 Gram negative kellee GNR lactose automobile or truck rental dispatcher#2 Alpha hemolytic organism Radiography Diagnostic Testing: Radiology Impression Endo Retro Cholangiopancreatogram 11/16/24 09:52 IMPRESSION: Insertion of 2 biliary stents and the pancreatic stent in good position. Reading Location: [facility] Abdomen/Pelvis CT 11/16/24 19:02 IMPRESSION: Interval biliary stent exchange. Persistent dilation of the right lower quadrant bowel loops, which may represent ileus or focal obstruction. If clinical concern, consider CT abdomen pelvis with oral contrast. Reading Location: [facility] Physical Exam GI GI Narrative: Abdomen- AYSE drain intact. Slight right upper quadrant discomfort. Nondistended Assessment & Plan Assessment/Plan (1) Ileus due to infection: PLAN: I am following this patient in conjunction with Dr. Collins. He will independently evaluate this patient. Labs reviewed No surgical intervention is needed Will give lactulose x 1 to assist with bowel habits May continue Senna and Miralax We will continue to monitor this patient (2) Bile leak: PLAN: S/p ERCP yesterday cystic duct stones were found. One stent was removed. One stent was placed in each of the right and left hepatic duct by Dr. Chacon Liver enzymes continue to trend down Charges/Coding Visit Charges Inpatient E&M: 56231 Subs Hosp L2 11/17/24 1017 <Electronically signed by Wendy MORALES PA-C> Cosigner Signature (if applicable): CC: ~ Signed ADDENDUM by Dr. Aquilino Collins MD on 11/17/24 at 1628 Addendum Patient seen this afternoon on rounds. Patient states she is doing well. She is tolerating diet. She denies any significant abdominal pain. AYSE drain is putting out just serous appearing fluid. Continue medical management. Appreciate GI input/ERCPs 11/17/24 1628<Electronically signed by Aquilino Collins MD> Cosigner Signature (if applicable): cc: ~* Signed [facility] Work Phone: [phone]) 588-465706-10-2025 Progress note [facility] Medical Records Department [address] [place] [address] Progress Note 11/17/24 1532 MR#: [id number] Acct: [id number] Name: LUCY CROWLEY V Rep #:[id number] : 2000 From: Kimberlee Perdomo MD PCP: Dr. Heather Ruby, DO Status:A DM IN Location: [place] [address] Subjective Subjective Patient seen and examined. I saw the patient with her nurse at her bedside. Her was in the room. She complained of feeling minimal abdominal pain. She had ERCP yesterday. She denies any nausea vomiting or any other symptoms. Review of systems otherwise negative. She has remained hemodynamically stable. Objective Data Objective Data Vital Signs: Vital Signs Temp Pulse Resp BP Pulse Ox O2 Del Method 98.5 F 67 16 117/71 96 Room Air 11/17/24 15:03 11/17/24 15:03 11/17/24 15:03 11/17/24 15:03 11/17/24 15:03 11/17/24 15:20 Oxygen Delivery Method Room Air Weight: 205 lb 6.4 oz Body Mass Index (BMI) 32.1 Intake & Output: Intake and Output for Last 24 Hours 11/15/24 11/16/24 11/17/24 23:59 23:59 23:59 Intake Total 2500 / 2500 3150 / 3150 3550 / 3550 Output Total 90 / 90 300 / 300 Balance 2410 / 2410 2850 / 2850 3540 / 3540 Lab / Micro Data 11/17/24 08:55 11/17/24 08:55 Labs: Laboratory Results - last 24 hr 11/16/24 19:19: WBC 6.9, RBC 4.21, Hgb 12.5, Hct 37.2, MCV 88.4, MCH 29.7, MCHC 33.6, RDW Std Deviation 40.8, RDW Coeff of Rebeca 12.7, Plt Count 220, MPV 10.4, Immature Gran % (Auto) 0.600, Neut % (Auto) 70.0, Lymph % (Auto) 21.9, [place] % (Auto) 4.4, Eos % (Auto) 2.8, Baso % (Auto) 0.3, Absolute Neuts(auto) 4.8, Absolute Lymphs (auto) 1.50, Nucleated RBC % 0, ESR 10, Sodium 142, Potassium 3.8, Chloride 105, Carbon Dioxide 24.3, Anion Gap 12, BUN 5, Creatinine 0.68 L, Estim Creat Clear Calc 148.20, Est GFR (MDRD) Non-Af 124, BUN/Creatinine Ratio 7.2 L, Glucose 94, Calcium 9.0, Total Bilirubin 0.64, AST 45 H, ALT 101 H, Alkaline Phosphatase 166 H, C-React Prot Ext Range 68.90 H, Total Protein 6.8, Albumin 3.7, Globulin 3.1, Albumin/Globulin Ratio 1.2 11/17/24 08:55: WBC 5.2, RBC 3.54 L, Hgb 10.7 L, Hct 31.3 L, MCV 88.4, MCH 30.2,MCHC 34.2, RDW Std Deviation 40.8, RDW Coeff of Rebeca 12.5, Plt Count 173, MPV 10.2, Immature Gran % (Auto) 0.600, Neut %(Auto) 50.5, Lymph % (Auto) 36.9, [place] % (Auto) 5.5, Eos % (Auto) 6.1 H, Baso % (Auto) 0.4, Absolute Neuts (auto) 2.6, Absolute Lymphs (auto) 1.93, Nucleated RBC % 0, Sodium 139, Potassium 3.7, Chloride 105, Carbon Dioxide 23.5, Anion Gap 11, BUN 3 L, Creatinine 0.57 L, Estim Creat Clear Calc 176.80, Est GFR (MDRD) Non-Af 129, BUN/Creatinine Ratio 6.0 L, Glucose 103 H, Calcium 9.1, Total Bilirubin 0.60, AST 26, ALT 75 H, Alkaline Phosphatase 135 H, Total Protein 6.2, Albumin 3.4 L, Globulin 2.8, Albumin/Globulin Ratio 1.2 Micro: Microbiology 11/14/24 18:10 Blood Culture (Wb) #2 - Left Hand Blood Culture - Preliminary No growth in 48 hours. 11/14/24 18:00 Blood Culture (Wb) - Anticubital Left Blood Culture - Preliminary No growth in 48 hours. 11/14/24 18:30 John Amador Drainage Body Fluid Culture - 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 Gram negative kellee GNR lactose automobile or truck rental dispatcher#2 Alpha hemolytic organism Radiography Diagnostic Testing: Radiology Impression Endo Retro Cholangiopancreatogram 11/16/24 09:52 IMPRESSION: Insertion of 2 biliary stents and the pancreatic stent in good position. Reading Location: [place] [address] Abdomen/Pelvis CT 11/16/24 19:02 IMPRESSION: Interval biliary stent exchange. Persistent dilation of the right lower quadrant bowel loops, whichmay represent ileus or focal obstruction. If clinical concern, consider CT abdomen pelvis with oral contrast. Reading Location: [id number] Physical Exam Const alert, oriented x3, no apparent distress and well nourished Constitutional Narrative: Class I obesity General Appearance: cooperative and well developed HEENT normocephalic, head/scalp atraumatic, hearing grossly normal bilaterally and moist oral mucous membranes Eyes PERRL and EOMs intact bilaterally Neck supple and no JVD Lymph Lymphatic: no lymphedema noted Resp normal respiratory effort, normal air movement, no retractions, no use of accessory muscles and clear to auscultation bilaterally Cardio regular rate, regular rhythm, S1 normal heart sound and S2 normal heart sound GI normal to inspection, nondistended, normoactive bowel sounds and soft to palpation GI Narrative: Mild right upper quadrant tenderness, no guarding or rebound tenderness. AYSE drain in situ Extremity normal capillary refill, no clubbing, cyanosis or edema and no calf tenderness Extremity Narrative: Pedal and radial pulses are 2+ General Extremity: no tenderness to palpation of joints or extremities Skin General Skin Exam: no breakdown Neuro oriented x3, moves all extremities, no focal motor deficits, no sensory deficitsnoted and deep tendon reflexes 2+ bilaterally Speech: speech normal Motor Exam: general weakness Psych thought process normal, cooperative and affect normal Psych Narrative: V Appearance: appropriate Assessment & Plan Assessment/Plan (1) History of biliary stent insertion: (2) Bile leak: PLAN: Plan #Abdominal pain with leukocytosis and elevated liver enzymes in the setting of subtotal cholecystectomy with bile leak * She had a covered stent placed in the common bile duct on 11/13/2024. General surgery consulted dueto concerns about bile leak. She still does have a AYSE drain in situ. * Leukocytosis has resolved. On IV Zosyn. * Liver enzymes are improving. * Currently tolerating a transitional diet. * Had ERCP yesterday which showed dilatation of the entire main bile duct with presence of cystic duct stones which were removed by biliary sphincterectomy and balloon extraction. 1 stent was removedfrom the biliary tree and a biliary stent durotomy was performed. 1 temporary stent was placed intothe right and left hepatic ducts. * #Dilated bowel * There was concern for possible dilated bowel * General surgery was consulted. Patient does have a history of earlier sick ectomy. Patient started on transitional diet and tolerating it. Management as per general surgery. #: Patient currently and is pumping for breast-feeding. DVT Prophylaxis: Lovenox Disposition: Anticipate DC within the next 24 to 48 hours. Charges/Coding Visit Charges Inpatient E&M: 37046 [facility] Hosp L2 11/17/24 9980 Kimberlee Perdomo MD Cosigner Signature (if applicable): CC: ~ Signed [facility]25 Progress note [facility] Medical Records Department [address] [place] [address] Progress Note - Surgery 11/17/24 0941 MR#: [id number] Acct: [id number] Name: LUCY CROWLEY V Rep #:[id number] : 2000 From: Wendy MORALES PA-C PCP: Dr. Heather Ruby, DO Status:A DM IN Location: MS3 [id number] Subjective Subjective Patient evaluated sitting comfortably in her bed. She denies any nausea, vomiting. She notes some abdominal cramping otherwise no true pain. She is tolerating a diet well. She notes passing flatus yesterday. She has not had a bowel movement since Saturday. Objective Data Objective Data Vital Signs: Vital Signs Temp Pulse Resp BP Pulse Ox O2 Del Method 98.1 F 72 16 113/71 96 Room Air 11/17/24 08:10 11/17/24 08:10 11/17/24 08:10 11/17/24 08:10 11/17/24 08:10 11/17/24 08:10 Oxygen Delivery Method Room Air Weight: 205 lb 6.4 oz Body Mass Index (BMI) 32.1 Intake & Output: Intake and Output for Last 24 Hours 11/15/24 11/16/24 11/17/24 23:59 23:59 23:59 Intake Total 2500 / 2500 3150 / 3150 2049 / 2049 Output Total 90 / 90 300 / 300 Balance 2410 / 2410 2850 / 2850 2039 Lab / Micro Data 11/17/24 08:55 11/16/24 19:19 Labs: Laboratory Results - last 24 hr 11/16/24 06:03: Total Bilirubin 0.85, Direct Bilirubin 0.45 H, AST 35 H, ALT 99 H, Alkaline Phosphatase 133 H, Total Protein 6.0, Albumin 3.3 L, Globulin 2.7 11/16/24 12:00: Urine Test Negative 11/16/24 19:19: WBC 6.9, RBC 4.21, Hgb 12.5, Hct 37.2, MCV 88.4, MCH 29.7, MCHC 33.6, RDW Std Deviation 40.8, RDW Coeff of Rebeca 12.7, Plt Count 220, MPV 10.4, Immature Gran % (Auto) 0.600, Neut % (Auto) 70.0, Lymph % (Auto) 21.9, [place] % (Auto) 4.4, Eos % (Auto) 2.8, Baso % (Auto) 0.3, Absolute Neuts(auto) 4.8, Absolute Lymphs (auto) 1.50, Nucleated RBC % 0, ESR 10, Sodium 142, Potassium 3.8, Chloride 105, Carbon Dioxide 24.3, Anion Gap 12, BUN 5, Creatinine 0.68 L, Estim Creat Clear Calc 148.20, Est GFR (MDRD) Non-Af 124, BUN/Creatinine Ratio 7.2 L, Glucose 94, Calcium 9.0, Total Bilirubin 0.64, AST 45 H, ALT 101 H, Alkaline Phosphatase 166 H, C-React Prot Ext Range 68.90 H, Total Protein 6.8, Albumin 3.7, Globulin 3.1, Albumin/Globulin Ratio 1.2 11/17/24 08:55: WBC 5.2, RBC 3.54 L, Hgb 10.7 L, Hct 31.3 L, MCV 88.4, MCH 30.2,MCHC 34.2, RDW Std Deviation 40.8, RDW Coeff of Rebeca 12.5, Plt Count 173, MPV 10.2, Immature Gran % (Auto) 0.600, Neut %(Auto) 50.5, Lymph % (Auto) 36.9, [place] % (Auto) 5.5, Eos % (Auto) 6.1 H, Baso % (Auto) 0.4, Absolute Neuts (auto) 2.6, Absolute Lymphs (auto) 1.93, Nucleated RBC % 0 Micro: Microbiology 11/14/24 18:30 John Amador Drainage Body Fluid Culture - 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 Gram negative kellee GNR lactose automobile or truck rental dispatcher#2 Alpha hemolytic organism Radiography Diagnostic Testing: Radiology Impression Endo Retro Cholangiopancreatogram 11/16/24 09:52 IMPRESSION: Insertion of 2 biliary stents and the pancreatic stent in good position. Reading [facility]/Pelvis CT 11/16/24 19:02 IMPRESSION: Interval biliary stent exchange. Persistent dilation of the right lower quadrant bowel loops, whichmay represent ileus or focal obstruction. If clinical concern, consider CT abdomen pelvis with oral contrast. Reading Location: [facility] Physical Exam GI GI Narrative: Abdomen- AYSE drain intact. Slight right upper quadrant discomfort. Nondistended Assessment & Plan Assessment/Plan (1) Ileus due to infection: PLAN: I am following this patient in conjunction with Dr. Collins. He will independently evaluate this patient. Labs reviewed No surgical intervention is needed Will give lactulose x 1 to assist with bowel habits May continue Senna and Miralax We will continue to monitor this patient (2) Bile leak: PLAN: S/p ERCP yesterday cystic duct stones were found. One stent was removed. One stent was placedin each of the right and left hepatic duct by Dr. Chacon Liver enzymes continue to trend down Charges/Coding Visit Charges Inpatient E&M: 24078 Subs Hosp L2 11/17/24 1017 Cosigner Signature (if applicable): CC: ~ Signed ADDENDUM by Dr. Aquilino Collins MD on 11/17/24 at 1628 Addendum Patient seen this afternoon on rounds. Patient states she is doing well. She is tolerating diet. She denies any significant abdominal pain. AYSE drain is putting out just serous appearing fluid. Continue medical management. Appreciate GI input/ERCPs 11/17/24 1628 Cosigner Signature (if applicable): cc: ~* [facility]igned [facility] Radiology Diagnostic study note [facility] Imaging Services [address] [place] [address] ERCP Biliary/Pancreas MR#: [id number] Acct: [id number] Name: LUCY CROWLEY V Rep #: [id number] : 2000 F 24 From: Gabriela Quintana MD PCP: Dr. Heather Ruby DO Status: A DM IN Study:ERCP Biliary/Pancreas Date of Exam: 11/16/24 Exam# [id number] Ordering Dr: Smitha Chacon DO PROCEDURE: ERCP BILIARY/PANCREAS 11/16/2024 REASON FOR EXAM: ABD PAIN TECHNIQUE: Fluoroscopic views during ERCP. Fluoroscopy time 220 seconds. Radiation dose 49.5 mGy. COMPARISON: CT scan on 11/16/2024. FINDINGS: Surgical drain is noted. 2 biliary stents have been inserted in good position in the right, left hepatic biliary tree, common bile duct reaching the duodenum. Pancreatic stent is noted in good position. RAD/ERCP Biliary/Pancreas IMPRESSION: Insertion of 2 biliary stents and the pancreatic stent in good position. Reading Location: [place] [address] CC: Dr. Heather Ruby DO; Ld Chacon, ~ Emery Wheel Molder: Signed [facility]06-09[facility]2025 Progress note Author Kimberlee Perdomo [facility] Note Date/Time November 16, 2024 6:52p m [facility] Medical Records Department [address] [place] [address] Progress Note 11/16/24 1553 MR#: [id number] Acct: [id number] Name: LUCY CROWLYE V Rep #:[id number] : 2000 From: Kimberlee Perdomo MD PCP: Dr. Heather Ruby DO Status:A DM IN Location: [facility] XF830-6 Subjective Subjective Patient seen and examined. She still complain of some abdominal pain. I saw the patient with her nurse. She had no other active complaints. She denied anynausea or vomiting, fever or chills. Review of systems otherwise negative. Sheis due for ERCP tomorrow by GI. She has remained hemodynamically stable. Objective Data Objective Data Vital Signs: Vital Signs Temp Pulse Resp BP Pulse Ox O2 Del Method 98.1 F 74 16 112/68 97 Room Air 11/16/24 14:59 11/16/24 14:59 11/16/24 14:59 11/16/24 14:59 11/16/24 14:59 11/16/24 12:47 Oxygen Delivery Method Room Air Weight: 205 lb 6.4 oz Body Mass Index (BMI) 32.1 Intake & Output: Intake and Output for Last 24 Hours 11/14/24 11/15/24 11/16/24 23:59 23:59 23:59 Intake Total 579 / 579 2500 / 2500 1850 / 1850 Output Total 40 / 40 90 / 90 285 / 285 Balance 539 / 539 2410 / 2410 1565 / 1565 Lab / Micro Data 11/16/24:03 11/16/24 06:03 Labs: Laboratory Results - last 24 hr 11/16/24 06:03: WBC 6.1, RBC 3.49 L, Hgb 10.5 L, Hct 30.7 L, MCV 88.0, MCH 30.1,MCHC 34.2, RDW Std Deviation 40.5, RDW Coeff of Rebeca 12.7, Plt Count 152, MPV 10.5, Immature Gran % (Auto) 0.500, Neut % (Auto) 57.6, Lymph % (Auto) 29.4, [place] % (Auto) 7.3, Eos % (Auto) 4.9, Baso % (Auto) 0.3, Absolute Neuts (auto) 3.5, Absolute Lymphs (auto) 1.80, Nucleated RBC % 0, Sodium 141, Potassium 3.4, Chloride 106, Carbon Dioxide 24.4, Anion Gap 10, BUN 6, Creatinine 0.75, Estim Creat Clear Calc 134.36, Est GFR (MDRD) Non-Af 113, BUN/Creatinine Ratio 8.5 L, Glucose 101 H, Calcium 8.5, Total Bilirubin 0.85, Direct Bilirubin 0.45 H, AST 35 H, ALT 99 H, Alkaline Phosphatase 133 H, Total Protein 6.0, Albumin 3.3 L, Globulin 2.7 11/16/24 12:00: Urine Test Negative Micro: Microbiology 11/14/24 18:30 John Amador Drainage Body Fluid Culture - 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 Gram negative kellee Physical Exam Const alert, oriented x3 and no apparent distress Constitutional Narrative: Class I obesity General Appearance: cooperative and well developed HEENT normocephalic, head/scalp atraumatic and moist oral mucous membranes Eyes PERRL and EOMs intact bilaterally Neck supple and no JVD Lymph Lymphatic: no lymphedema noted Resp normal respiratory effort and normal air movement Cardio regular rate, regular rhythm, S1 normal heart sound, S2 normal heart sound and no murmurs GI normal to inspection, nondistended, normoactive bowel sounds and soft to palpation GI Narrative: Mild right upper quadrant tenderness, no guarding or rebound tenderness. Extremity normal capillary refill, no clubbing, cyanosis or edema and no calf tenderness General Extremity: no tenderness to palpation of joints or extremities Skin General Skin Exam: no breakdown Neuro no focal motor deficits, no sensory deficits noted and deep tendon reflexes 2+ bilaterally Motor Exam: general weakness Psych thought process normal, cooperative and affect normal Appearance: appropriate Assessment & Plan Assessment/Plan (1) History of biliary stent insertion: (2) Bile leak: PLAN: Plan #Abdominal pain with leukocytosis and elevated liver enzymes in the setting of subtotal cholecystectomy with bile leak * She had a covered stent placed in the common bile duct on 11/13/2024. General surgery consulted due to concerns about bile leak. She still does have a AYSE drain in situ. * Leukocytosis has resolved. On IV Zosyn. * Liver enzymes are improving. * Currently tolerating a transitional diet. * Per GI for repeat ERCP tomorrow. * #Dilated bowel * There was concern for possible dilated bowel * General surgery was consulted. Patient does have a history of earlier sick ectomy. Patient started on transitional diet and tolerating it. Management as per general surgery. #: Patient currently and is pumping for breast-feeding. DVT Prophylaxis: Lovenox Charges/Coding Visit Charges Inpatient E&M: 65056 Subs Hosp L2 11/16/24 1852 <Electronically signed by Kimberlee Perdomo MD> Kimberlee Perdomo MD Cosigner Signature (if applicable): CC: ~ Signed [facility] Work Phone: 1(807) 353-269806-09-2025 Radiology Diagnostic study note [facility] Imaging Services [address] [place], [place] [address] Abdomen/Pelvis W IV Cont ONLY MR#: [id number] Acct: [id number] Name: LUCY CROWLEY V Rep #: [id number] : 2000 F 24 From: Vicki Ortega MD PCP: Dr. Heather Ruby DO Status: A DM IN Study:Abdomen/Pelvis W IV Cont ONLY Date of E xam: 11/16/24 Exam# [id number] Ordering Dr: Smitha Chacon DO PROCEDURE: ABDOMEN/PELVIS W IV CONT ONLY 11/16/2024 REASON FOR EXAM: ABDOMINAL PAIN TECHNIQUE: Abdomen and pelvis CT with intravenous contrast. Coronal and Sagittal reconstruction series were provided. PATIENT PREPARATION: Per protocol ORAL CONTRAST TYPE: None. CONTRAST: Isovue 370 VOLUME: 100 mL One or more dose reduction techniques were used (e.g., Automated exposure control, adjustment of the mA and/or kV according to patient size, use of iterative reconstruction technique. RADIATION DOSE SUMMARY: CTDlvol: 32 mGy DLP: 1000 mGycm COMPARISON: ERCP earlier same day, CT abdomen pelvis 11/14/2024. FINDINGS: Interval biliary stent exchange. Persistent dilated small bowel loops within the right lower abdomen measuring upto 4.0 cm. Small volume free fluid within the pelvic cul-de-sac. CT/Abdomen/Pelvis W IV Cont ONLY IMPRESSION: Interval biliary stent exchange. Persistent dilation of the right lower quadrant bowel loops, whichmay represent ileus or focal obstruction. If clinical concern, consider CT abdomen pelvis with oral contrast. Reading Location: [facility] CC: Dr. Heather Ruby DO; Ld Chacon, ~ Emery Wheel Molder: Signed [facility]25 Consult note Author Saran Fragoso [facility] Note Date/Time November 16, 2024 6:08p m [facility] Medical Records Department [address] [place] [address] Anesthesia Postop Eval II 11/16/24 1808 MR#: [id number] Acct: [id number] Name: LUCY CROWLEY V Rep #:[id number] : 2000 24 From: Saran Fragoso MD PCP: Dr. Heather Ruby DO Status:A DM IN Y Race: C Location: [place] [id number] 1 Anesthesia Postop Eval I Sum Postop Eval Completion status Anesthesia document: Postop Eval 1 completed: Yes Anesthesia Postop Eval I Summary Anesthesia Postop Eval I Summary: Anesthesia Postop Eval I: Assessment Summary Airway patent Yes 11/16/24 17:27 LIMEROCK TOWER [email or web address].[email or web address] Spontaneous unlabored Yes 11/16/24 17:27 LIMEROCK TOWER LOADER.MDOT respirations Mental status Awake,Calm 11/16/24 17:27 LIMEROCK TOWER LOADER.MDOT nausea No 11/16/24 17:27 LIMEROCK TOWER LOADER.MDOT Vomiting No 11/16/24 17:27 LIMEROCK TOWER LOADER.MDOT Anesthesia Postop Eval I: Fluid Summary Crystalloid volume administer 500 11/16/24 17:27 CASPER (ml) Colloids volume administered ( ml) Blood Product volume administered (ml) Total IV fluid infused 500 11/16/24 17:27 CASPER Anesthesia Postop Eval I: Summary Notes Anesthesia Complication No 11/16/24 17:27 CASPER Anesthesia Complication Comment: Post-operative progress note Anesthesia: Postop Eval II Evaluation Mental status: Awake Pain Level: 0 nausea: No Vomiting: No 11/16/24 1808 <Electronically signed by Saran Fragoso MD > Date _ Saran Shabazzigncleo Signature: Date CC: ~ Signed [facility] Work Phone: 1(787) 368-205206-09-2025 Consult note Author [facility] Note Date/Time November 16, 2024 5:27p [facility] Medical Records Department [address] [place] [address] Anesthesia Postop Eval I 11/16/241726 MR#: [id number] Acct: [id number] Name: LUCY CROWLEY V Rep #:[id number] : 2000 24 From: Nirav JULIEN PCP: Dr. Heather Ruby, DO Status:A DM IN Y Race: C Location: [place] [id number] 1 Anesthesia: Postop Eval I Current Vital Signs Temperature: 98.4 F Pulse Rate: 80 Blood Pressure: 135/83 Respiratory Rate: 18 Pulse Ox: 97 Oxygen Delivery Method: Room Air Assessment Airway patent: Yes Spontaneous unlabored respirations: Yes Mental status: Awake and Calm nausea: No Vomiting: No Anesthesia Complication: No Fluid Hydration Crystalloid volume administer (ml): 500 Total IV fluid infused: 500 Progress Note Anesthesia document: Postop Eval 1 completed: Yes 11/16/241726 <Electronically signed by Nirav Dotterer LIMEROCK TOWER LOADER> Date _ Nirav Campbell [employer]EROCK TOWER LOADER Cosigner Signature: Date CC: ~ Signed [facility] Work Phone: 1(125) 955-213006-09-2025 Progress note [facility] Medical Records Department [address] [place] [address] Progress Note 11/16/24 1553 MR#: [id number] Acct: [id number] Name: LUCY CROWLEY V Rep #:[id number] : 2000 From: Kimberlee Perdomo MD PCP: Dr. Heather Ruby, DO Status:A DM IN Location: [facility] XF925-3 Subjective Subjective Patient seen and examined. She still complain of some abdominal pain. I saw the patient with her nurse. She had no other active complaints. She denied anynausea or vomiting, fever or chills. Review of systems otherwise negative. Sheis due for ERCP tomorrow by GI. She has remained hemodynamically stable. Objective Data Objective Data Vital Signs: Vital Signs Temp Pulse Resp BP Pulse Ox O2 Del Method 98.1 F 74 16 112/68 97 Room Air 11/16/24 14:59 11/16/24 14:59 11/16/24 14:59 11/16/24 14:59 11/16/24 14:59 11/16/24 12:47 Oxygen Delivery Method Room Air Weight: 205 lb 6.4 oz Body Mass Index (BMI) 32.1 Intake & Output: Intake and Output for Last 24 Hours 11/14/24 11/15/24 11/16/24 23:59 23:59 23:59 Intake Total 579 / 579 2500 / 2500 1850 / 1850 Output Total 40 / 40 90 / 90 285 / 285 Balance 539 / 539 2410 / 2410 1565 / 1565 Lab / Micro Data 11/16/24 06:03 11/16/24 06:03 Labs: Laboratory Results - last 24 hr 11/16/24 06:03: WBC 6.1, RBC 3.49 L, Hgb 10.5 L, Hct 30.7 L, MCV 88.0, MCH 30.1,MCHC 34.2, RDW Std Deviation 40.5, RDW Coeff of Rebeca 12.7, Plt Count 152, MPV 10.5, Immature Gran % (Auto) 0.500, Neut %(Auto) 57.6, Lymph % (Auto) 29.4, [place] % (Auto) 7.3, Eos % (Auto) 4.9, Baso % (Auto) 0.3, Absolute Neuts (auto) 3.5, Absolute Lymphs (auto) 1.80, Nucleated RBC % 0, Sodium 141, Potassium 3.4, Chloride 106, Carbon Dioxide 24.4, Anion Gap 10, BUN 6, Creatinine 0.75, Estim Creat Clear Calc 134.36, EstGFR (MDRD) Non-Af 113, BUN/Creatinine Ratio 8.5 L, Glucose 101 H, Calcium 8.5, Total Bilirubin 0.85, Direct Bilirubin 0.45 H, AST 35 H, ALT 99 H, Alkaline Phosphatase 133 H, Total Protein 6.0, Albumin 3.3 L, Globulin 2.7 11/16/24 12:00: Urine Test Negative Micro: Microbiology 11/14/24 18:30 John Amador Drainage Body Fluid Culture - 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 Gram negative kellee Physical Exam Const alert, oriented x3 and no apparent distress Constitutional Narrative: Class I obesity General Appearance: cooperative and well developed HEENT normocephalic, head/scalp atraumatic and moist oral mucous membranes Eyes PERRL and EOMs intact bilaterally Neck supple and no JVD Lymph Lymphatic: no lymphedema noted Resp normal respiratory effort and normal air movement Cardio regular rate, regular rhythm, S1 normal heart sound, S2 normal heart sound and no murmurs GI normal to inspection, nondistended, normoactive bowel sounds and soft to palpation GI Narrative: Mild right upper quadrant tenderness, no guarding or rebound tenderness. Extremity normal capillary refill, no clubbing, cyanosis or edema and no calf tenderness General Extremity: no tenderness to palpation of joints or extremities Skin General Skin Exam: no breakdown Neuro no focal motor deficits, no sensory deficits noted and deep tendon reflexes 2+ bilaterally Motor Exam: general weakness Psych thought process normal, cooperative and affect normal Appearance: appropriate Assessment & Plan Assessment/Plan (1) History of biliary stent insertion: (2) Bile leak: PLAN: Plan #Abdominal pain with leukocytosis and elevated liver enzymes in the setting of subtotal cholecystectomy with bile leak * She had a covered stent placed in the common bile duct on 11/13/2024. General surgery consulted dueto concerns about bile leak. She still does have a AYSE drain in situ. * Leukocytosis has resolved. On IV Zosyn. * Liver enzymes are improving. * Currently tolerating a transitional diet. * Per GI for repeat ERCP tomorrow. * #Dilated bowel * There was concern for possible dilated bowel * General surgery was consulted. Patient does have a history of earlier sick ectomy. Patient started on transitional diet and tolerating it. Management as per general surgery. #: Patient currently and is pumping for breast-feeding. DVT Prophylaxis: Lovenox Charges/Coding Visit Charges Inpatient E&M: 23929 [facility] Hosp L2 11/16/24 6766 Kimberlee Perdomo MD Cosigner Signature (if applicable): CC: ~ Signed [facility]-09[facility]2025 Consult note [facility] Medical Records Department [address] [place] [address] Anesthesia Postop Eval II 11/16/24 1808 MR#: [id number] Acct: [id number] Name: LUCY CROWLEY V Rep #:[id number] : 2000 From: Saran Fragoso MD PCP: Dr. Heather Ruby, DO Status:A DM IN Y Race: C Location: [facility] [id number] -1 Anesthesia Postop Eval I Sum Postop Eval Completion status Anesthesia document: Postop Eval 1 completed: Yes Anesthesia Postop Eval I Summary Anesthesia Postop Eval I Summary: Anesthesia Postop Eval I: Assessment Summary Airway patent Yes 11/16/24 17:27 LIMEROCK TOWER [email or web address].MANUEL Spontaneous unlabored Yes 11/16/24 17:27 LIMEROCK TOWER LOADERJASMINA respirations Mental status Awake,Calm 11/16/24 17:27 LIMEROCK TOWER LOADER.MANUEL nausea No 11/16/24 17:27 LIMEROCK TOWER LOADERJASMINA Vomiting No 11/16/24 17:27 LIMEROCK TOWER LOADER.MANUEL Anesthesia Postop Eval I: Fluid Summary Crystalloid volume administer 500 11/16/24 17:27 LIMEROCK TOWER LOADERJASMINA (ml) Colloids volume administered ( ml) Blood Product volume administered (ml) Total IV fluid infused 500 11/16/24 17:27 LIMEROCK TOWER LOADER.MANUEL Anesthesia Postop Eval I: Summary Notes Anesthesia Complication No 11/16/24 17:27 LIMEROCK TOWER LOADER.MANUEL Anesthesia Complication Comment: Post-operative progress note Anesthesia: Postop Eval II Evaluation Mental status: Awake Pain Level: 0 nausea: No Vomiting: No 11/16/24 1808 > Date _ Saran Dean Signature: Date CC: ~ Signed [facility] Progress note Author Ld Chacon [facility] Note Date/Time November 16, 2024 4:07p m [facility] Medical Records Department [address] [place] [address] Progress Note 11/16/24 1606 MR#: [id number] Acct: [id number] Name: LUCY CROWLEY V Rep #:[id number] : 2000 24 From: Ld Chacon DO PCP: Dr. Heather Ruby DO Status:A DM IN [facility] Patient for ERCP today. All questions and concerns were answered prior to her procedure. Physical Exam Const alert, oriented x3, no apparent distress and healthy appearing General Appearance: cooperative GI normal to inspection, nondistended, normoactive bowel sounds, soft to palpation,non-tender and non-distended Percussion: normal to percussion Rectal Exam: deferred Assessment & Plan Assessment/Plan (1) Transaminitis: (2) Nausea & vomiting: (3) Abdominal pain: (4) Bile leak: (5) Hx of cholecystectomy: (6) Abnormal CT of the abdomen: PLAN: 24year-old who is 10 weeks who presented with abdominal pain and was diagnosed with acute choledocholithiasis and acute cholecystitis approximately 8 weeks ago. She underwent ERCP with stone removal and temporary stent placement. She came back and had worsening [facility] for elective cholecystectomy with acute cholecystitis. She underwent a subtotal cholecystectomy. She had persistent bile leak so her plastic stent was exchanged for metal stent. She comes back in today with abdominal distention and abdominal pain. CT scan abdomen pelvis shows metal stent in place without any other abnormalities except for dilated small bowel to 5.4 cm possibly secondary to ileus versus small bowel obstruction. Recommend surgical consultation. Patient would likely need a contrast study such as small bowel follow-through or CT with oral contrast. She will also likely need stent exchange with longer bilateral intrahepatic stents or removal of fully covered metal stent with surgery to repair bile leak. 11/16/2024-risks and benefits of the procedure were explained to the patient. Shewas explained alternatives, risk and benefits include not withstanding bleeding,infection, subsequent perforation, need for return to . She will have an ASA of 3. Visit Charges Inpatient E&M: 02272 Subs Hosp 11/16/24 1607 <Electronically signed by Ld Chacon DO> Ld Cahcon DO Cosigner Signature (if applicable): CC: ~ Signed [facility] Work Phone: 1(546) 362-105106-09-2025 Procedure note [facility] Medical Records Department [address] [place] [address] ERCP Report MR#: [id number] Acct: [id number] Name: LUCY CROWLEY V Rep #:[id number] : 2000 24 From: Ld Chacon DO PCP: Dr. Heather Ruby DO Status:A DM IN Patient Name: Lucy Crowley Procedure Date: 11/16/2024 4:02 PM Date of : 2000 Age: 24 Procedure: ERCP Indications: Bile leak Providers: Ld Chacon DO Medicines: Monitored Anesthesia Care Patient Profile: This [...] in the pre-procedure area. Mental Status Examination: normal. Respiratory Examination: clear to auscultation. CV Examination: [...] patient tolerated the procedure well. Scope In: 4:33:57 PM Scope Out: 5:14:34 PM Total Procedure Duration Time 0 hours 40 minutes 37 seconds Findings: The animal bounty hunter film was normal. A pancreatic stent was visible on the animal bounty hunter film. A biliary stent was visible on the animal bounty hunter film. The esophagus was successfully intubated under direct vision. The scope was advanced to a normal major papilla in the descending duodenum without detailed examination of the pharynx, larynx and associated structures, and upper GI tract. The upper GI tract was grossly normal. One stent was removed from the biliary tree using a large-capacity forceps. The stent was found to be patent via the water column test. The bile duct was deeply cannulated with the short-nosed traction sphincterotome. Contrast was injected. I personally interpreted the bile duct images. There was brisk flow of contrast through the ducts. Image quality was adequate. Contrast extended to the entire biliary tree. Opacification of the entire opacified area was successful. The maximum diameter of the ducts was 12 mm. Placement of a long 0.025 inch Jagwire into the biliary tree was attempted. This passed successfully. A 5 mm biliary sphincterotomy was made with a traction (standard) sphincterotome using ERBE electrocautery. There was no post-sphincterotomy bleeding. The biliary tree was swept with a 7 mm balloon starting at the cystic duct. All cystic duct stones were removed. Placement of a short 0.025 inch Jagwire into the biliary tree was attempted. This passed successfully. The bile duct was explored endoscopically using the [employer] direct visualization system. The SpyScope was advanced to the cystic duct. Visibility with the scope was excellent. The cystic duct contained two stones, the largest of which was 3 mm in diameter. The main bile duct was diffusely dilated. One 7 Fr by 12 cm transpapillary temporary stent was placed 5 cm into the right hepatic duct. Bile flowed through the stent. The stent was in good position. One 7 Fr by 15 cm transpapillary temporary stent was placed 5 cm into the left hepatic duct. The stent was in good position. Impression: - The entire main bile duct was dilated. 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 Complete removal was accomplished by biliary sphincterotomy and balloon extraction. - One stent was removed from the biliary tree. - A biliary sphincterotomy was performed. - The biliary tree was swept. - One temporary stent was placed into the right hepatic duct. - One temporary stent was placed into the left hepatic duct. Recommendation: regular diet Procedure Code(s): --- Professional --- 86519, Endoscopic retrograde cholangiopancreatography (ERCP); with removal and exchange of stent(s), biliary or pancreatic duct, including pre- and post-dilation and guide wire passage, when performed, including sphincterotomy, when performed, each stent exchanged 52584, 59, Endoscopic retrograde cholangiopancreatography (ERCP); with removal and exchange of stent(s), biliary or pancreatic duct, including pre- and post-dilation and guide wire passage, when performed, including sphincterotomy, when performed, each stent exchanged 09337, 51, Endoscopic retrograde cholangiopancreatography (ERCP); with removal of calculi/debris from biliary/pancreatic duct(s) 47316, 59, Endoscopic retrograde cholangiopancreatography (ERCP); with sphincterotomy/papillotomy 35419, Endoscopic cannulation of papilla with direct visualization of pancreatic/common bile duct(s) (List separately in addition to code(s) for primary procedure) 49820, 26, Endoscopic catheterization of the biliary ductal system, radiological supervision and interpretation CPT copyright 2021 [employer]. All rights reserved. The codes documented in this report are preliminary and upon insurance coder review may be revised to meet current compliance requirements. Ld Chacon DO 11/16/2024 5:55:08 PM This report has been signed electronically. Number of Addenda: 0 Note Initiated On: 11/16/2024 4:02 PM 11/16/24 1755 Date _ Ld Chacon DO Cosigner Signature: Date (if indicated) CC: Dr. Heather Ruby DO; Ld Chacon DO ~ Date Dictated: 11/16/24 1602 Date Transcribed: Emery Wheel Molder: RF Signed [facility]25 Procedure note [facility] Medical Records Department [address] [place] [address] Operative Report - CC Letter MR#: [id number] Acct: [id number] Name: LUCY CROWLEY V Rep #:[id number] : 2000 From: Ld Chacon DO PCP: Dr. Heather Ruby DO Status:A DM IN 11/16/2024 Heather Ruby Do Re : ERCP procedure for Lucy Crowley Dear Dr. Ruby This procedure was performed on Saturday, November 16, 2024. My impressions and recommendations are as follows: Impressions : - The entire main bile duct was dilated. 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 Complete removal was accomplished by biliary sphincterotomy and balloon extraction. - One stent was removed from the biliary tree. - A biliary sphincterotomy was performed. - The biliary tree was swept. - One temporary stent was placed into the right hepatic duct. - One temporary stent was placed into the left hepatic duct. Recommendations : regular diet My findings are described in the full procedure note, which is enclosed. If I can be of further assistance, please feel free to contact me at . Sincerely, Ld Chacon DO 11/16/2024 5:55:08 PM This report has been signed electronically. 11/16/24 175 Date _ Ld Chacon DO Cosigner Signature: Date (if indicated) CC: Dr. Heather Ruby DO; Dr. Julia Joya MD; Dr. Kimberlee Perdomo MD; Dr. Bunny Calderon MD ~ Date Dictated: 11/16/24 1602 Date Transcribed: Emery Wheel Molder: ALYSIA [facility]igned [facility]25 Consult note [facility] Medical Records Department [address] [place] [address] Anesthesia Postop Eval I 11/16/24 1727 MR#: [id number] Acct: [id number] Name: LUCY CROWLEY V Rep #:[id number] : 2000 From: Nirav Dean RNA PCP: Dr. Heather Ruby DO Status:A DM IN Y Race: C Location: KS3 KS312 -1 Anesthesia: Postop Eval I Current Vital Signs Temperature: 98.4 F Pulse Rate: 80 Blood Pressure: 135/83 Respiratory Rate: 18 Pulse Ox: 97 Oxygen Delivery Method: Room Air Assessment Airway patent: Yes Spontaneous unlabored respirations: Yes Mental status: Awake and Calm nausea: No Vomiting: No Anesthesia Complication: No Fluid Hydration Crystalloid volume administer (ml): 500 Total IV fluid infused: 500 Progress Note Anesthesia document: Postop Eval 1 completed: Yes 11/16/24 1727 [employer] LOADER> Date _ Nirav Campbell [employer] Cosigner Signature: Date CC: ~ Signed [facility]06-09-2025 Consult note Author Saran Fragoso [facility] Note Date/Time November 16, 2024 2:59p m [facility] Medical Records Department [address] [facility] [place] [place] [address] Pre-Anesthesia Evaluation 11/16/24 1458 MR#: [id number] Acct: [id number] Name: LUCY CROWLEY V Rep #:[id number] : 2000 From: Saran Fragoso MD PCP: Dr. Heather Ruby, DO Status:A DM IN Y Race: C Location: [place] [address] ASA Classification* ASA Classification ASA Classification: 2 [...] Anesthesia Type: General Anesthesia Focused Assessment* Temperature: 98.1 F Pulse Rate: 74 Blood Pressure: 112/68 Respiratory Rate: 16 Pulse Ox: 97 Airway Assessment Mouth opens: >3 cm Mallampati Score: II Labs Anesthesia Preop lab: CBC WBC 6.1 K/mm3 (4.4-11.0) 11/16/24 06:03 11/16/24 RBC 3.49 M/mm3 (4.2-5.4) L 11/16/24 06:03 11/16/24 Hgb 10.5 g/dL (12.0-15.0) L 11/16/24 06:03 5 Hct 30.7 % (37-47) L 11/16/24 06:03 11/16/24 Plt Count 152 K/mm3 (150-450) 11/16/24 06:03 11/16/24 CHEMISTRY Potassium 3.4 mmol/L (3.3-5.1) 11/16/24 06:03 11/16/24 Sodium 141 mmol/L (133-145) 11/16/24 06:03 11/16/24 Magnesium 2.0 mg/dL (1.5-2.2) 11/15/24 05:15 11/15/24 Phosphorus 2.4 mg/dL (2.7-4.5) L 11/15/24 05:15 11/15/24 BUN 6 mg/dL (4-19) 11/16/24 06:03 11/16/24 Creatinine 0.75 mg/dL (0.70-1.20) 11/16/24 06:03 11/16/24 Glucose 101 mg/dL (70-99) H 11/16/24 06:03 11/16/24 COAG PT 13.4 SECONDS (11.7-14.9) 10/21/24 05:20 Urine Test Negative Negative 11/16/24 12:00 11/16/24 Pre-Assessment Diagnosis/Proposed Procedure Planned Operative Procedure(s): ERCP. Anesthesia History Anesthesia History - cardiac rehab nurse: Anesthesia History - cardiac rehab nurse Hx Hospitalization Yes: 10/202411/11/24 12:40 Any Problems With Anesthesia No 11/16/24 12:44 Cholinesterase deficiency No 11/16/24 12:44 You/Your Family Experience No 11/16/24 12:44 fever (hyperthermia) with Relationship Recent Exposure to Contagious No 11/16/24 12:44 Disease Does patient have nerve No 11/16/24 12:44 stimulator Patient instructed to have device shut off --Does patient have Pacemaker No 11/16/24 13:58 or ICD? When Was Last Pacemaker Check QUESTION #4 FULL TEXT: You/Your Family Experience fever (hyperthermia) with Anesthesia Last Oral Intake Last Oral intake: Last Oral Intake NPO since 08:30 11/16/24 13:58 Meds taken in AM with sips of water? 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 - cardiac rehab nurse: PONV - cardiac rehab nurse Female HX of Motion Sickness HX of N/V After Surgery Non-Smoker Duration of Surgery greater than 60 minutes Number of Risk Factors PONV Score Height & Weight Height & Weight: Anesthesia: Height & Weight Height 5 ft 7 in 11/16/24 13:58 Weight: 93.168 kg 11/16/24 13:58 Body Mass Index (BMI) 32.1 11/16/24 13:58 Respiratory Assessment Respiratory Assessment - cardiac rehab nurse: Respiratory Tract Infection Hx - cardiac rehab nurse Hx Respiratory Tract Infection No 11/16/24 12:44 STOP Sleep Apnea STOP Sleep Apnea - cardiac rehab nurse: STOP Sleep Apnea - cardiac rehab nurse Hx Hypertension No 11/14/24 17:36 Hx Sleep Apnea No 11/14/24 17:36 CPAP BIPAP Do you snore loudly (louder No 11/14/24 17:36 than talking or can be heard Do you often feel tired/ No 11/14/24 17:36 fatigued/ sleepy during daytime? Has anyone observed you stop No 11/14/24 17:36 breathing during sleep? STOP Results Negative 11/14/24 17:36 QUESTION #5 FULL TEXT : Do you snore loudly (louder than talking or can be heard through closed doors)? 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 - cardiac rehab nurse: Tobacco Use History - cardiac rehab nurse Tobacco Use Smoking Status Never smoker 11/14/24 17:36 Hx Tobacco Use No 11/14/24 17:36 Years Smoking Packs Smoked per Day Smoking Cessation Date was within the last 15 years Hx Smoking Cessation Date Hx Smoking Cessation Counseling Hematologic Medial History Hematologic Hx - cardiac rehab nurse: Hematologic Medical Hx - correctional medicine physician Hx of Blood Transfusion No 11/14/24 17:36 Hx of Transfusion in last 3 No 11/14/24 17:36 Months Date of Last Transfusion (if within last 3 months) Ever experience any problems No 11/14/24 17:36 with transfusion(s)? Specify any problems Hx of Preganancy in last 3 Yes 11/14/24 17:36 Months Nurse Filling Out Transfusion RKCADY 11/14/24 17:36 & Questions: Date: 11/14/24 11/14/24 17:36 Time: 18:40 11/14/24 17:36 Patient unable to answer at this time (ie. confused, unrespo /Reproduction History /Reproductive History - cardiac rehab nurse: /Reproductive Hx- cardiac rehab nurse Hx Now No 11/16/24 12:44 Gestational Age (in weeks): EDC: Hx Hx Para Hx Section SAB Yes 11/16/24 12:44 Active Medications Active Medications: Current Medications Generic Name Dose Route Start Last Admin Trade Name Freq PRN Reason Stop Dose Admin Docusate Sodium 100 mg 11/14/24 22:00 11/16/24 08:26 Docusate Sodium 100 Mg Capsule PO 100 mg BID GEOVANNA Administration Enoxaparin Sodium 40 mg 11/15/24 10:00 11/16/24 09:48 Enoxaparin 40 Mg/0.4 Ml Syringe SC Not Given DAILY GEOVANNA Piperacillin Sod/Tazobactam 50 mls @ 12.5 mls/hr 11/14/24 22:00 11/16/24 09:30 Sod 3.375 gm/ Sodium Chloride IV Infused Q8 GEOVANNA Infusion Sodium Chloride 1,000 mls @ 15 mls/hr 11/16/24 14:05 IV .Q48H GEOVANNA Morphine Sulfate 2 - 4 mg 11/14/24 17:43 11/16/24 01:56 Morphine 2 Mg/Ml Syringe IV 2 mg Q3H PRN PRN Administration Pain Score 6-10 Ondansetron HCl 4 mg 11/14/24 17:43 Ondansetron 4 Mg/2 Ml Vial IV Q8H PRN PRN NAUSEA/VOMITING Polyethylene Glycol 17 gm 11/16/24 10:00 11/16/24 08:26 Polyethylene Glycol 3350 17 Gm Packet PO 17 gm DAILY GEOVANNA Administration Prochlorperazine Edisylate 5 mg 11/14/24 17:43 Prochlorperazine 10 Mg/2 Ml Vial IV Q4H PRN PRN Breakthrough nausea/vomiting Senna/Docusate Sodium 2 tablet 11/14/24 17:43 Senna/Docusate Sodium 1 Tablet PO BID PRN PRN Constipation Sodium Chloride 10 - 40 ml 11/14/24 17:40 11/16/24 01:56 0.9% Saline Lock 10 Ml Syringe IV 10 ml UD PRN Administration SALINE FLUSH PFS Medical History Wears glasses Non-smoker Bile leak [...] and no additional complaints, except as documented. 11/16/24 8833 <Electronically signed by Saran Fragoso MD > Date _ Saran Fragoso MD Cosigner Signature: Date CC: ~ [facility]igned [facility] Work Phone: [phone]) 267-789006-09-2025 Progress [address] [facility] Medical Records Department [address] [place] [address] Progress Note 11/16/24 1606 MR#: [id number] Acct: [id number] Name: LUCY CROWLEY V Rep #:[id number] : 2000 From: Ld Friend DO PCP: Dr. Heather Ruby DO Status:A DM IN Location: [facility] CS717-7 Progress Note Patient for ERCP today. All questions and concerns were answered prior to her procedure. Physical Exam Const alert, oriented x3, no apparent distress and healthy appearing General Appearance: cooperative GI normal to inspection, nondistended, normoactive bowel sounds, soft to palpation,non-tender and non-distended Percussion: normal to percussion Rectal Exam: deferred Assessment & Plan Assessment/Plan (1) Transaminitis: (2) Nausea & vomiting: (3) Abdominal pain: (4) Bile leak: (5) Hx of cholecystectomy: (6) Abnormal CT of the abdomen: PLAN: 24-year-old who is 10 weeks who presented with abdominal pain and was diagnosed with acute choledocholithiasis and acute cholecystitis approximately 8 weeks ago. She underwent ERCP with stone removal and temporary stent placement. She came back and had worsening abdominal pain to [facility] while awaiting evaluation at [facility] for elective cholecystectomy with acute cholecystitis. She underwent a subtotal cholecystectomy. She had persistent bile leak so her plastic stent was exchanged for metal stent. She comes back in today with abdominal distentionand abdominal pain. CT scan abdomen pelvis shows metal stent in place without any other abnormalities except for dilated small bowel to 5.4 cm possibly secondary to ileus versus small bowel obstruction. Recommend surgical consultation. Patient would likely need a contrast study such as small bowel follow-through or CT with oral contrast. She will also likely need stent exchange with longer bilateral intrahepatic stents or removal of fully covered metal stent with surgery to repair bile leak. 11/16/2024-risks and benefits of the procedure were explained to the patient. Shewas explained alternatives, risk and benefits include not withstanding bleeding,infection, subsequent perforation, need for return to . She will have an ASA of 3. Visit Charges Inpatient E&M: 34936 Subs Hosp L3 11/16/24 1607 Ld Friend DO Cosigner Signature (if applicable): CC: ~ Signed [facility]06-09-2025 Consult note [facility] Medical Records Department [address] [place] [address] Pre-Anesthesia Evaluation 11/16/24 3708 MR#: [id number] Acct: [id number] Name: LUCY CROWLEY V Rep #:[id number] : 2000 From: Saran Fragoso MD PCP: Dr. Heather Ruby, DO Status:A DM IN Y Race: C Location: MS3 MS312 -1 ASA Classification* ASA Classification ASA Classification: [...] Anesthesia Type: General Anesthesia Focused Assessment* Temperature: 98.1 F Pulse Rate: 74 Blood Pressure: 112/68 Respiratory Rate: 16 Pulse Ox: 97 Airway Assessment Mouth opens: >3 cm Mallampati Score: II Labs Anesthesia Preop lab: CBC WBC 6.1 K/mm3 (4.4-11.0) 11/16/24 06:03 11/16/24 RBC 3.49 M/mm3 (4.2-5.4) L 11/16/24 06:03 11/16/24 Hgb 10.5 g/dL (12.0-15.0) L 11/16/24 06:03 5 Hct 30.7 % (37-47) L 11/16/24 06:03 11/16/24 Plt Count 152 K/mm3 (150-450) 11/16/24 06:03 11/16/24 CHEMISTRY Potassium 3.4 mmol/L (3.3-5.1) 11/16/24 06:03 11/16/24 Sodium 141 mmol/L (133-145) 11/16/24 06:03 11/16/24 Magnesium 2.0 mg/dL (1.5-2.2) 11/15/24 05:15 11/15/24 Phosphorus 2.4 mg/dL (2.7-4.5) L 11/15/24 05:15 11/15/24 BUN 6 mg/dL (4-19) 11/16/24 06:03 11/16/24 Creatinine 0.75 mg/dL (0.70-1.20) 11/16/24 06:03 11/16/24 Glucose 101 mg/dL (70-99) H 11/16/24 06:03 11/16/24 COAG PT 13.4 SECONDS (11.7-14.9) 10/21/24 05:20 Urine Test Negative Negative 11/16/24 12:00 11/16/24 Pre-Assessment Diagnosis/Proposed Procedure Planned Operative Procedure(s): ERCP. Anesthesia History Anesthesia History - cardiac rehab nurse: Anesthesia History - cardiac rehab nurse Hx Hospitalization Yes: 10/202411/11/24 12:40 Any Problems With Anesthesia No 11/16/24 12:44 Cholinesterase deficiency No 11/16/24 12:44 You/Your Family Experience No 11/16/24 12:44 fever (hyperthermia) with Relationship Recent Exposure to Contagious No 11/16/24 12:44 Disease Does patient have nerve No 11/16/24 12:44 stimulator Patient instructed to have device shut off --Does patient have Pacemaker No 11/16/24 13:58 or ICD? When Was Last Pacemaker Check QUESTION #4 FULL TEXT: You/Your Family Experience fever (hyperthermia) with Anesthesia Last Oral Intake Last Oral intake: Last Oral Intake NPO since 08:30 11/16/24 13:58 Meds taken in AM with sips of water? 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 - cardiac rehab nurse: PONV - cardiac rehab nurse Female HX of Motion Sickness HX of N/V After Surgery Non-Smoker Duration of Surgery greater than 60 minutes Number of Risk Factors PONV Score Height & Weight Height & Weight: Anesthesia: Height & Weight Height 5 ft 7 in 11/16/24 13:58 Weight: 93.168 kg 11/16/24 13:58 Body Mass Index (BMI) 32.1 11/16/24 13:58 Respiratory Assessment Respiratory Assessment - cardiac rehab nurse: Respiratory Tract Infection Hx - cardiac rehab nurse Hx Respiratory Tract Infection No 11/16/24 12:44 STOP Sleep Apnea STOP Sleep Apnea - cardiac rehab nurse: STOP Sleep Apnea - cardiac rehab nurse Hx Hypertension No 11/14/24 17:36 Hx Sleep Apnea No 11/14/24 17:36 CPAP BIPAP Do you snore loudly (louder No 11/14/24 17:36 than talking or can be heard Do you often feel tired/ No 11/14/24 17:36 fatigued/ sleepy during daytime? Has anyone observed you stop No 11/14/24 17:36 breathing during sleep? STOP Results Negative 11/14/24 17:36 QUESTION #5 FULL TEXT : Do you snore loudly (louder than talking or can be heard through closeddoors)? 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 - cardiac rehab nurse: Tobacco Use History - cardiac rehab nurse Tobacco Use Smoking Status Never smoker 11/14/24 17:36 Hx Tobacco Use No 11/14/24 17:36 Years Smoking Packs Smoked per Day Smoking Cessation Date was within the last 15 years Hx Smoking Cessation Date Hx Smoking Cessation Counseling Hematologic Medial History Hematologic Hx - cardiac rehab nurse: Hematologic Medical Hx - correctional medicine physician Hx of Blood Transfusion No 11/14/24 17:36 Hx of Transfusion in last 3 No 11/14/24 17:36 Months Date of Last Transfusion (if within last 3 months) Ever experience any problems No 11/14/24 17:36 with transfusion(s)? Specify any problems Hx of Preganancy in last 3 Yes 11/14/24 17:36 Months Nurse Filling Out Transfusion [id number] 11/14/24 17:36 & Questions: Date: 11/14/24 11/14/24 17:36 Time: 18:40 11/14/24 17:36 Patient unable to answer at this time (ie. confused, unrespo /Reproduction History /Reproductive History - cardiac rehab nurse: /Reproductive Hx- cardiac rehab nurse Hx Now No 11/16/24 12:44 Gestational Age (in weeks): EDC: Hx Hx Para Hx Section SAB Yes 11/16/24 12:44 Active Medications Active Medications: Current Medications Generic Name Dose Route Start Last Admin Trade Name Freq PRN Reason Stop Dose Admin Docusate Sodium 100 mg 11/14/24 22:00 11/16/24 08:26 Docusate Sodium 100 Mg Capsule PO 100 mg BID GEOVANNA Administration Enoxaparin Sodium 40 mg 11/15/24 10:00 11/16/24 09:48 Enoxaparin 40 Mg/0.4 Ml Syringe SC Not Given DAILY GEOVANNA Piperacillin Sod/Tazobactam 50 mls @ 12.5 mls/hr 11/14/24 22:00 11/16/24 09:30 Sod 3.375 gm/ Sodium Chloride IV Infused Q8 GEOVANNA Infusion Sodium Chloride 1,000 mls @ 15 mls/hr 11/16/24 14:05 IV .Q48H GEOVANNA Morphine Sulfate 2 - 4 mg 11/14/24 17:43 11/16/24 01:56 Morphine 2 Mg/Ml Syringe IV 2 mg Q3H PRN PRN Administration Pain Score 6-10 Ondansetron HCl 4 mg 11/14/24 17:43 Ondansetron 4 Mg/2 Ml Vial IV Q8H PRN PRN NAUSEA/VOMITING Polyethylene Glycol 17 gm 11/16/24 10:00 11/16/24 08:26 Polyethylene Glycol 3350 17 Gm Packet PO 17 gm DAILY GEOVANNA Administration Prochlorperazine Edisylate 5 mg 11/14/24 17:43 Prochlorperazine 10 Mg/2 Ml Vial IV Q4H PRN PRN Breakthrough nausea/vomiting Senna/Docusate Sodium 2 tablet 11/14/24 17:43 Senna/Docusate Sodium 1 Tablet PO BID PRN PRN Constipation Sodium Chloride 10 - 40 ml 11/14/24 17:40 11/16/24 01:56 0.9% Saline Lock 10 Ml Syringe IV 10 ml UD PRN Administration SALINE FLUSH PFSH Medical History Wears glasses Non-smoker Bile leak [...] and no additional complaints, except as documented. 11/16/24 1459 > Date _ Saran Dean Signature: Date CC: ~ [facility]igned [facility]25 Progress note Author Julia Joya [facility] Note Date/Time November 16, 2024 12:[address] [facility] Medical Records Department [address] [place] [address] Progress Note - Surgery 11/16/24914 MR#: [id number] Acct: [id number] Name: LUCY CROWLEY V Rep #:[id number] : 2000 From: Julia Klein PCP: Dr. Heather Ruby, DO Status:A DM IN Location: [place] [id number] Subjective Subjective Patient seen and evaluated during AM rounds. She is found resting in bed. She states that she is still experiencing episodic abdominal pains. She confirms she tolerated her transitional diet without subsequent nausea. She is passing flatus but has not had a bowel movement since her admission. Objective Data Objective Data Vital Signs: Vital Signs Temp Pulse Resp BP Pulse Ox O2 Del Method 98.6 F 72 16 109/74 96 Room Air 11/16/24 08:11 11/16/24 08:11 11/16/24 08:11 11/16/24 08:11 11/16/24 08:11 11/16/24 08:11 Oxygen Delivery Method Room Air Weight: 205 lb 6.4 oz Body Mass Index (BMI) 32.1 Intake & Output: Intake and Output for Last 24 Hours 11/14/24 11/15/24 11/16/24 23:59 23:59 23:59 Intake Total 579 / 579 2500 / 2500 550 / 550 Output Total 40 / 40 90 / 90 35 / 35 Balance 539 / 539 2410 / 2410 515 / 515 Lab / Micro Data 11/16/24 06:03 11/16/24 06:03 Labs: Laboratory Results - last 24 hr 11/16/24 06:03: WBC 6.1, RBC 3.49 L, Hgb 10.5 L, Hct 30.7 L, MCV 88.0, MCH 30.1,MCHC 34.2, RDW Std Deviation 40.5, RDW Coeff of Rebeca 12.7, Plt Count 152, MPV 10.5, Immature Gran % (Auto) 0.500, Neut % (Auto) 57.6, Lymph % (Auto) 29.4, [place] % (Auto) 7.3, Eos % (Auto) 4.9, Baso % (Auto) 0.3, Absolute Neuts (auto) 3.5, Absolute Lymphs (auto) 1.80, Nucleated RBC % 0, Sodium 141, Potassium 3.4, Chloride 106, Carbon Dioxide 24.4, Anion Gap 10, BUN 6, Creatinine 0.75, Estim Creat Clear Calc 134.36, Est GFR (MDRD) Non-Af 113, BUN/Creatinine Ratio 8.5 L, Glucose 101 H, Calcium 8.5 Physical Exam Const oriented x3 and no apparent distress Resp normal respiratory effort GI GI Narrative: Mildly distended, right upper quadrant drain with scant thin brown output, soft,nontender to palpation x 4 quadrant Assessment & Plan Assessment/Plan (1) Dilated bowel: PLAN: Patient is a 24-year-old female admitted following ERCP with stent exchange by gastroenterology for ongoing management of a bile leak status post subtotal cholecystectomy 10/21/2024. Surgery is asked to consult on the questionwhether patient displays evidence of either bowel obstruction or ileus. In eliciting patient's history and performing exam I am not concerned for an obstructive process. I spent a while clarifying patient's surgical history which was initially listed as appendectomy. However, on probing further she reports a history of perforated appendicitis and more extensive bowel resection. Based on her limited recall it sounds as though she underwent a ileocecectomy. This would better explain the crossing staple lines that I see on her CT imaging. It also could explain dilation of the new ileocolic junction if there was a antiperistaltic connection made resulting in relative stasis. Patient confirms that she has an appetite so I find it reasonable to return her to a diet but will monitor for tolerance and perform serial abdominal exams. Patient has minimal distention otherwise benign abdominal exam. She continues to pass flatus and has tolerated transitional diet. Therefore, I do believe sheis constipated, I do not believe she is experiencing a small bowel obstruction. I have ordered a dose of MiraLAX to try to treat her constipation. Defer additional clinical management to patient's hospitalist service and gastroenterology. (2) Bile leak: PLAN: Patient with ongoing bile leak status post subtotal cholecystectomy. There appears to be minimal bilious output to her surgical drain on exam and herLFTs are downtrending. This appears suggestive that her newly placed covered stent has sealed the cystic duct tributary. However, I reviewed the procedure cholangiograms and find evidence of some possible luminal filling defects withinthe cystic duct so I have alerted gastroenterology to this observation. I wouldbe concerned if patient has persistent cystic duct stones this may not allow forthe cystic duct to fully involute as intended. Charges/Coding Visit Charges Inpatient E&M: 80595 Subs Hosp L2 11/16/24 1238 <Electronically signed by Julia Joya MD> Cosigner Signature (if applicable): CC: ~ Signed [facility] Work Phone: 1(259) 988-128606-09-2025 Progress note [facility] Medical Records Department [address] [place] [address] Progress Note - Surgery 11/16/24914 MR#: [id number] Acct: [id number] Name: LUCY CROWLEY V Rep #:[id number] : 2000 From: Julia Klein PCP: Dr. Heather Ruby, DO Status:A DM IN Location: [facility] [id number] Subjective Subjective Patient seen and evaluated during AM rounds. She is found resting in bed. She states that she is still experiencing episodic abdominal pains. She confirms she tolerated her transitional diet without subsequent nausea. She is passing flatus but has not had a bowel movement since her admission. Objective Data Objective Data Vital Signs: Vital Signs Temp Pulse Resp BP Pulse Ox O2 Del Method 98.6 F 72 16 109/74 96 Room Air 11/16/24 08:11 11/16/24 08:11 11/16/24 08:11 11/16/24 08:11 11/16/24 08:11 11/16/24 08:11 Oxygen Delivery Method Room Air Weight: 205 lb 6.4 oz Body Mass Index (BMI) 32.1 Intake & Output: Intake and Output for Last 24 Hours 11/14/24 11/15/24 11/16/24 23:59 23:59 23:59 Intake Total 579 / 579 2500 / 2500 550 / 550 Output Total 40 / 40 90 / 90 35 / 35 Balance 539 / 539 2410 / 2410 515 / 515 Lab / Micro Data 11/16/24 06:03 11/16/24 06:03 Labs: Laboratory Results - last 24 hr 11/16/24 06:03: WBC 6.1, RBC 3.49 L, Hgb 10.5 L, Hct 30.7 L, MCV 88.0, MCH 30.1,MCHC 34.2, RDW Std Deviation 40.5, RDW Coeff of Rebeca 12.7, Plt Count 152, MPV 10.5, Immature Gran % (Auto) 0.500, Neut %(Auto) 57.6, Lymph % (Auto) 29.4, [place] % (Auto) 7.3, Eos % (Auto) 4.9, Baso % (Auto) 0.3, Absolute Neuts (auto) 3.5, Absolute Lymphs (auto) 1.80, Nucleated RBC % 0, Sodium 141, Potassium 3.4, Chloride 106, Carbon Dioxide 24.4, Anion Gap 10, BUN 6, Creatinine 0.75, Estim Creat Clear Calc 134.36, EstGFR (MDRD) Non-Af 113, BUN/Creatinine Ratio 8.5 L, Glucose 101 H, Calcium 8.5 Physical Exam Const oriented x3 and no apparent distress Resp normal respiratory effort GI GI Narrative: Mildly distended, right upper quadrant drain with scant thin brown output, soft,nontender to palpation x 4 quadrant Assessment & Plan Assessment/Plan (1) Dilated bowel: PLAN: Patient is a 24-year-old female admitted following ERCP with stent exchange by gastroenterology for ongoing management of a bile leak status post subtotal cholecystectomy 10/21/2024. Surgery is asked to consult on the questionwhether patient displays evidence of either bowel obstruction or ileus. In eliciting patient's history and performing exam I am not concerned for an obstructive process. I spent a while clarifying patient's surgical history which was initially listed as appendectomy. However, on probing further she reports a history of perforated appendicitis and more extensive bowel resection. Based on her limited recall it sounds as though she underwent a ileocecectomy. This wo uld better explain the crossing staple lines that I see on her CT imaging. It also could explain dilation of the new ileocolic junction if there was a antiperistaltic connection made resulting in relative stasis. Patient confirms that she has an appetite so I find it reasonable to return her to a diet but will monitor for tolerance and perform serial abdominal exams. Patient has minimal distention otherwise benign abdominal exam. She continues to pass flatus and has tolerated transitional diet. Therefore, I do believe sheis constipated, I do not believe she is experiencing a small bowel obstruction. I have ordered a dose of MiraLAX to try to treat her constipation. Defer additional clinical management to patient's hospitalist service and gastroenterology. (2) Bile leak: PLAN: Patient with ongoing bile leak status post subtotal cholecystectomy. There appears to be minimal bilious output to her surgical drain on exam and herLFTs are downtrending. This appears suggestive that her newly placed covered stent has sealed the cystic duct tributary. However, I reviewed theprocedure cholangiograms and find evidence of some possible luminal filling defects withinthe cystic duct so I have alerted gastroenterology to this observation. I wouldbe concerned if patient has persistent cystic duct stones this may not allow forthe cystic duct to fully involute as intended. Charges/Coding Visit Charges Inpatient E&M: 57077 Subs Hosp L2 11/16/24 1238 Cosigner Signature (if applicable): CC: ~ [facility]igned [facility] Consult note Author Julia Joya [facility] Note Date/Time November 15, 2024 12:[address] [facility] Medical Records Department [address] [place] [address] Consultation - Surgical 11/15/24 0856 MR#: [id number] Acct: [id number] Name: LUCY CROWLEY V Rep #:[id number] : 2000 From: Julia Klein PCP: Dr. Heather Ruby, DO Status:A DM IN Location: [facility] XN206-5 Assessment & Plan Assessment/Plan (1) Dilated bowel: PLAN: Patient is a 24-year-old female admitted following ERCP with stent exchange by gastroenterology for ongoing management of a bile leak status post subtotal cholecystectomy 10/21/2024. Surgery is asked to consult on the questionwhether patient displays evidence of either bowel obstruction or ileus. In eliciting patient's history and performing exam I am not concerned for an obstructive process. I spent a while clarifying patient's surgical history which was initially listed as appendectomy. However, on probing further she reports a history of perforated appendicitis and more extensive bowel resection. Based on her limited recall it sounds as though she underwent a ileocecectomy. This would better explain the crossing staple lines that I see on her CT imaging. It also could explain dilation of the new ileocolic junction if there was a antiperistaltic connection made resulting in relative stasis. Patient confirms that she has an appetite so I find it reasonable to return her to a diet but will monitor for tolerance and perform serial abdominal exams. (2) Bile leak: PLAN: Patient with ongoing bile leak status post subtotal cholecystectomy. There appears to be minimal bilious output to her surgical drain on exam and herLFTs are downtrending. This appears suggestive that her newly placed covered stent has sealed the cystic duct tributary. However, I reviewed the procedure cholangiograms and find evidence of some possible luminal filling defects withinthe cystic duct so I have alerted gastroenterology to this observation. I wouldbe concerned if patient has persistent cystic duct stones this may not allow forthe cystic duct to fully involute as intended. HPI Consult Data Date of Consult: 11/15/24 HPI Narrative Reason for Consultation: Concern for possible small bowel obstruction HPI Narrative: LUCY CROWLEY, is a 24 F who [facility] following common bile duct exchange with gastroenterology for management of a biliary leak. Patient is well-known to this service after subtotal cholecystectomy performed by Dr. Collins on 10/21/2024. She and her share that upon returning home she experienced progressive abdominal discomfort low-grade fevers, chills, and vomiting. Patient's ER workup included comprehensive metabolic panel and CT imaging of theabdomen pelvis. The former showed modestly elevated liver function tests while the latter was read by radiology is concerning for possible small bowel obstruction versus ileus with mildly dilated bowel of the right lower quadrant. Patient today shares that her pain is persistent but less intense. She denies any nausea and confirms a strong appetite. She also confirms that she has been passing flatus but has not had a bowel movement since her admission. [facility] Medical History Wears glasses Non-smoker Bile leak [...] never substance use type: does not use Physical Exam Const alert, oriented x3 and no apparent distress Resp normal respiratory effort GI GI Narrative: Obese, surgical drain in right upper quadrant with thin brown serous output of minimal volume, soft, nondistended, nontender to palpation x 4 quadrants Lab / Micro Data 11/15/24 05:15 11/15/24 05:15 Labs: Laboratory Results - last 24 hr 11/14/24 17:40: WBC 9.0, RBC 3.59 L, Hgb 10.8 L, Hct 31.4 L, MCV 87.5, MCH 30.1,MCHC 34.4, RDW Std Deviation 41.1, RDW Coeff of Rebeca 12.9, Plt Count 145 L, MPV 10.7, Immature Gran % (Auto) 0.700, Neut % (Auto) 76.9 H, Lymph % (Auto) 13.6 L,[place] % (Auto) 8.2, Eos % (Auto) 0.2, Baso % (Auto) 0.4, Absolute Neuts (auto) 6.9, Absolute Lymphs (auto) 1.22, Platelet Estimate A, RBC Morphology NORM C+C, Sodium 138, Potassium 3.4, Chloride 105, Carbon Dioxide 21.8, Anion Gap 12, BUN 8, Creatinine 0.75, Estim Creat Clear Calc 134.36, Est GFR (MDRD) Non-Af 113, BUN/Creatinine Ratio 11.1, Glucose 102 H, Calcium 8.2, Magnesium 1.4 L, Total Bilirubin 0.91, AST 134 H, ALT 211 H, Alkaline Phosphatase 119 H, Total Protein 6.3, Albumin 3.6, Globulin 2.7, Albumin/Globulin Ratio 1.3, Lipase 18 11/15/24 05:15: WBC 8.0, RBC 3.79 L, Hgb 11.3 L, Hct 33.3 L, MCV 87.9, MCH 29.8,MCHC 33.9, RDW Std Deviation 41.1, RDW Coeff of Rebeca 12.7, Plt Count 147 L, MPV 10.5, Immature Gran % (Auto) 0.400, Neut % (Auto) 72.5 H, Lymph % (Auto) 19.1, [place] % (Auto) 5.8, Eos % (Auto) 1.9, Baso % (Auto) 0.3, Absolute Neuts (auto) 5.8, Absolute Lymphs (auto) 1.52, Nucleated RBC % 0, Sodium 137, Potassium 3.4, Chloride 104, Carbon Dioxide 21.1, Anion Gap 12, BUN 8, Creatinine 0.72, Estim Creat Clear Calc 139.96, Est GFR (MDRD) Non-Af 119, BUN/Creatinine Ratio 11.3, Glucose 82, Calcium 8.6, Phosphorus 2.4 L, Magnesium 2.0, Total Bilirubin 1.02, AST 75 H, ALT 147 H, Alkaline Phosphatase 117 H, Total Protein 5.9, Albumin 3.2 L, Globulin 2.7, Albumin/Globulin Ratio 1.2 Imaging Radiology Impression Abdomen/Pelvis CT 11/14/24 17:39 IMPRESSION: 1. Dilated small bowel loops within the right lower abdomen within the region ofthe prior bowel resections, which may represent ileus/bowel obstruction. Visualization is limited without the use of oral contrast material. No pneumoperitoneum. 2. Mild biliary ductal dilation with pancreatic and biliary stents in place. 3. Bibasilar atelectasis. Reading Location: [facility] Charges/Coding Visit Charges Inpatient E&M: 67623 Subs Hosp L2 11/15/24 1234 <Electronically signed by Julia Joya MD> Cosigner Signature (if applicable): CC: Dr. Heather Ruby, DO~ [facility]igned [facility] Work Phone: 1(332) 410-103506-08-2025 Progress note Author Bunny Calderon [facility] Note Date/Time November 15, 2024 11:[address] [facility] Medical Records Department [address] [place] [address] Progress Note - Hospitalist 11/15/24629 MR#: [id number] Acct: [id number] Name: LUCY CROWLEY V Rep #:[id number] : 2000 From: Bunny crawford MD PCP: Dr. Heather Ruby, Status:A DM IN Location: [facility] QB831-0 Subjective Subjective Continues to have generalized abdominal pain which does improve with morphine Objective Data Objective Data Vital Signs: Vital Signs Temp Pulse Resp BP Pulse Ox O2 Del Method 99.7 F H 93 16 106/68 94 Room Air 11/15/24 02:10 11/15/24 02:10 11/15/24 02:10 11/15/24 02:10 11/15/24 02:10 11/15/24 02:10 Oxygen Delivery Method Room Air Weight: 205 lb 6.4 oz Body Mass Index (BMI) 32.1 Intake & Output: Intake and Output for Last 24 Hours 11/14/24 11/15/24 11/16/24 03:59 03:59 03:59 Intake Total 629 / 629 Output Total 40 / 40 Balance 589 / 589 Lab / Micro Data 11/15/24 05:15 11/15/24 05:15 Labs: Laboratory Results - last 24 hr 11/14/24 17:40: WBC 9.0, RBC 3.59 L, Hgb 10.8 L, Hct 31.4 L, MCV 87.5, MCH 30.1,MCHC 34.4, RDW Std Deviation 41.1, RDW Coeff of Rebeca 12.9, Plt Count 145 L, MPV 10.7, Immature Gran % (Auto) 0.700, Neut % (Auto) 76.9 H, Lymph % (Auto) 13.6 L,[place] % (Auto) 8.2, Eos % (Auto) 0.2, Baso % (Auto) 0.4, Absolute Neuts (auto) 6.9, Absolute Lymphs (auto) 1.22, Platelet Estimate A, RBC Morphology NORM C+C, Sodium 138, Potassium 3.4, Chloride 105, Carbon Dioxide 21.8, Anion Gap 12, BUN 8, Creatinine 0.75, Estim Creat Clear Calc 134.36, Est GFR (MDRD) Non-Af 113, BUN/Creatinine Ratio 11.1, Glucose 102 H, Calcium 8.2, Magnesium 1.4 L, Total Bilirubin 0.91, AST 134 H, ALT 211 H, Alkaline Phosphatase 119 H, Total Protein 6.3, Albumin 3.6, Globulin 2.7, Albumin/Globulin Ratio 1.3, Lipase 18 11/15/24 05:15: WBC 8.0, RBC 3.79 L, Hgb 11.3 L, Hct 33.3 L, MCV 87.9, MCH 29.8,MCHC 33.9, RDW Std Deviation 41.1, RDW Coeff of Rebeca 12.7, Plt Count 147 L, MPV 10.5, Immature Gran % (Auto) 0.400, Neut % (Auto) 72.5 H, Lymph % (Auto) 19.1, [place] % (Auto) 5.8, Eos % (Auto) 1.9, Baso % (Auto) 0.3, Absolute Neuts (auto) 5.8, Absolute Lymphs (auto) 1.52, Nucleated RBC % 0, Sodium 137, Potassium 3.4, Chloride 104, Carbon Dioxide 21.1, Anion Gap 12, BUN 8, Creatinine 0.72, Estim Creat Clear Calc 139.96, Est GFR (MDRD) Non-Af 119, BUN/Creatinine Ratio 11.3, Glucose 82, Calcium 8.6, Phosphorus 2.4 L, Magnesium 2.0, Total Bilirubin 1.02, AST 75 H, ALT 147 H, Alkaline Phosphatase 117 H, Total Protein 5.9, Albumin 3.2 L, Globulin 2.7, Albumin/Globulin Ratio 1.2 Radiography Diagnostic Testing: Radiology Impression Abdomen/Pelvis CT 11/14/24 17:39 IMPRESSION: 1. Dilated small bowel loops within the right lower abdomen within the region ofthe prior bowel resections, which may represent ileus/bowel obstruction. Visualization is limited without the use of oral contrast material. No pneumoperitoneum. 2. Mild biliary ductal dilation with pancreatic and biliary stents in place. 3. Bibasilar atelectasis. Reading Location: [facility] Physical Exam Narrative General: Alert, Oriented x3, Cooperative, No apparent distress HEENT: Atraumatic, PERRLA, EOMI, Normocephalic Oral: Moist Mucosa Neck: Supple, No JVD Lungs: Diminished, Normal air movement, No rhonchi, No wheeze, No rales Cardiovascular: Regular rate, Regular Rhythm, Normal S1, Normal S2, No murmurs Abdomen: Soft, nontender to palpation currently, Non-Distended, No Hepato-splenomegaly, AYSE right upper quadrant Extremities: No edema, Capillary Refill Less than 3 Seconds Skin: No rashes, No breakdown Musculoskeletal: No Tenderness to Palpation of Joints or Extremities Neurological: No focal neurological deficits, Motor Exam 5/5 strength throughout, Sensory exam intact to light touch and pain Psych/Mental Status: Normal Affect, Appropriate Assessment & Plan Assessment/Plan (1) Bile leak: (2) Abdominal pain: (3) Transaminitis: PLAN: Plan 1. Abdominal pain and nausea and vomiting with leukocytosis and elevated LFTs after a subtotal cholecystectomy with a bile leak with placement of a covered stent in her common bile duct on 11/13/2024 ? Per gastroenterology's recommendation we will consult general surgery as she continues to have a bile leak evidenced by the significant fluid collection her AYSE drain ? Continue clear liquids ? Zosyn, leukocytosis has resolved ? Pain medications ? May have an ileus ? There continues to be improvement in her LFTs and her total bilirubin is normal indicating that there is no obstruction ? Culture of the drain fluid is pending 2. Anemia ? Very mild and she is ? Her hemoglobin is at her baseline ? No intervention planned 3. She is so limits mobility and will provide pumping supplies as she is breast-feeding DVT: Lovenox Charges/Coding Visit Charges Inpatient E&M: 55967 Subs Hosp L2 11/15/24 1122 <Electronically signed by Bunny Calderon MD> Cosigner Signature (if applicable): CC: ~ [facility]igned [facility] Work Phone: [phone]) 531-654506-08-2025 Consult note [facility] Medical Records Department [address] [place] [address] Consultation - Surgical 11/15/24 0856 MR#: [id number] Acct: [id number] Name: LUCY CROWLEY V Rep #:[id number] : 2000 From: Julia Klein PCP: Dr. Heather Ruby, DO Status:A DM IN Location: [facility] SM144-8 Assessment & Plan Assessment/Plan (1) Dilated bowel: PLAN: Patient is a 24-year-old female admitted following ERCP with stent exchange by gastroenterology for ongoing management of a bile leak status post subtotal cholecystectomy 10/21/2024. Surgery is asked to consult on the questionwhether patient displays evidence of either bowel obstruction or ileus. In eliciting patient's history and performing exam I am not concerned for an obstructive process. I spent a while clarifying patient's surgical history which was initially listed as appendectomy. However, on probing further she reports a history of perforated appendicitis and more extensive bowel resection. Based on her limited recall it sounds as though she underwent a ileocecectomy. This wo uld better explain the crossing staple lines that I see on her CT imaging. It also could explain dilation of the new ileocolic junction if there was a antiperistaltic connection made resulting in relative stasis. Patient confirms that she has an appetite so I find it reasonable to return her to a diet but will monitor for tolerance and perform serial abdominal exams. (2) Bile leak: PLAN: Patient with ongoing bile leak status post subtotal cholecystectomy. There appears to be minimal bilious output to her surgical drain on exam and herLFTs are downtrending. This appears suggestive that her newly placed covered stent has sealed the cystic duct tributary. However, I reviewed theprocedure cholangiograms and find evidence of some possible luminal filling defects withinthe cystic duct so I have alerted gastroenterology to this observation. I wouldbe concerned if patient has persistent cystic duct stones this may not allow forthe cystic duct to fully involute as intended. HPI Consult Data Date of Consult: 11/15/24 HPI Narrative Reason for Consultation: Concern for possible small bowel obstruction HPI Narrative: LUCY CROWLEY, is a 24 F who [facility] following common bile duct exchange with gastroenterology for management of a biliary leak. Patient is well-known to this service after subtotal cholecystectomy performed by Dr. Collins on 10/21/2024. She and her share that upon returning home she experienced progressive abdominal discomfort low- grade fevers, chills, and vomiting. Patient's ER workup included comprehensive metabolic panel and CT imaging of theabdomen pelvis. Theformer showed modestly elevated liver function tests while the latter was read by radiology is concerning for possible small bowel obstruction versus ileus with mildly dilated bowel of the right lower quadrant. Patient today shares that her pain is persistent but less intense. She denies any nausea and confirms a strong appetite. She also confirms that she has been passing flatus but has not had a bowel movement since her admission. [facility] Medical History Wears glasses Non-smoker Bile leak [...] never substance use type: does not use Physical Exam Const alert, oriented x3 and no apparent distress Resp normal respiratory effort GI GI Narrative: Obese, surgical drain in right upper quadrant with thin brown serous output of minimal volume, soft, nondistended, nontender to palpation x 4 quadrants Lab / Micro Data 11/15/24 05:15 11/15/24 05:15 Labs: Laboratory Results - last 24 hr 11/14/24 17:40: WBC 9.0, RBC 3.59 L, Hgb 10.8 L, Hct 31.4 L, MCV 87.5, MCH 30.1,MCHC 34.4, RDW Std Deviation 41.1, RDW Coeff of Rebeca 12.9, Plt Count 145 L, MPV 10.7, Immature Gran % (Auto) 0.700, Neut% (Auto) 76.9 H, Lymph % (Auto) 13.6 L,[place] % (Auto) 8.2, Eos % (Auto) 0.2, Baso % (Auto) 0.4, Absolute Neuts (auto) 6.9, Absolute Lymphs (auto) 1.22, Platelet Estimate A, RBC Morphology NORM C+C, Sodium 138, Potassium 3.4, Chloride 105, Carbon Dioxide 21.8, Anion Gap 12, BUN 8, Creatinine 0.75, Estim Creat Clear Calc 134.36, Est GFR (MDRD) Non-Af 113, BUN/Creatinine Ratio 11.1, Glucose 102 H, Calcium 8.2, Magnesium 1.4 L, Total Bilirubin 0.91, AST 134 H, ALT 211 H, Alkaline Phosphatase 119 H, Total Protein 6.3, Albumin 3.6, Globulin 2.7, Albumin/Globulin Ratio 1.3, Lipase 18 11/15/24 05:15: WBC 8.0, RBC 3.79 L, Hgb 11.3 L, Hct 33.3 L, MCV 87.9, MCH 29.8,MCHC 33.9, RDW Std Deviation 41.1, RDW Coeff of Rebeca 12.7, Plt Count 147 L, MPV 10.5, Immature Gran % (Auto) 0.400, Neut% (Auto) 72.5 H, Lymph % (Auto) 19.1, [place] % (Auto) 5.8, Eos % (Auto) 1.9, Baso % (Auto) 0.3, Absolute Neuts (auto) 5.8, Absolute Lymphs (auto) 1.52, Nucleated RBC % 0, Sodium 137, Potassium 3.4, Chloride 104, Carbon Dioxide 21.1, Anion Gap 12, BUN 8, Creatinine 0.72, Estim Creat Clear Calc 139.96,Est GFR (MDRD) Non-Af 119, BUN/Creatinine Ratio 11.3, Glucose 82, Calcium 8.6, Phosphorus 2.4 L, Magnesium 2.0, Total Bilirubin 1.02, AST 75 H, ALT 147 H, Alkaline Phosphatase 117 H, Total Protein 5.9, Albumin 3.2 L, Globulin 2.7, Albumin/Globulin Ratio 1.2 Imaging Radiology Impression Abdomen/Pelvis CT 11/14/24 17:39 IMPRESSION: 1. Dilated small bowel loops within the right lower abdomen within the region ofthe prior bowel resections, which may represent ileus/bowel obstruction. Visualization is limited without the use of oral contrast material. No pneumoperitoneum. 2. Mild biliary ductal dilation with pancreatic and biliary stents in place. 3. Bibasilar atelectasis. Reading Location: [facility] Charges/Coding Visit Charges Inpatient E&M: 46882 Subs Hosp L2 11/15/24 1234 Cosigner Signature (if applicable): CC: Dr. Heather Ruby DO~ [facility]igned [facility]06-[facility]-2025 Progress note [facility] Medical Records Department [address] [place] [address] Progress Note - Hospitalist 11/15/24 0630 MR#: [id number] Acct: [id number] Name: LUCY CROWLEY V Rep #:[id number] : 2000 24 From: Bunny crawford MD PCP: Dr. Heather Ruby DO Status:A DM IN Location: [facility] QA844-3 Subjective Subjective Continues to have generalized abdominal pain which does improve with morphine Objective Data Objective Data Vital Signs: Vital Signs Temp Pulse Resp BP Pulse Ox O2 Del Method 99.7 F H 93 16 106/68 94 Room Air 11/15/24 02:10 11/15/24 02:10 11/15/24 02:10 11/15/24 02:10 11/15/24 02:10 11/15/24 02:10 Oxygen Delivery Method Room Air Weight: 205 lb 6.4 oz Body Mass Index (BMI) 32.1 Intake & Output: Intake and Output for Last 24 Hours 11/14/24 11/15/24 11/16/24 03:59 03:59 03:59 Intake Total 629 / 629 Output Total 40 / 40 Balance 589 / 589 Lab / Micro Data 11/15/24 05:15 11/15/24 05:15 Labs: Laboratory Results - last 24 hr 11/14/24 17:40: WBC 9.0, RBC 3.59 L, Hgb 10.8 L, Hct 31.4 L, MCV 87.5, MCH 30.1,MCHC 34.4, RDW Std Deviation 41.1, RDW Coeff of Rebeca 12.9, Plt Count 145 L, MPV 10.7, Immature Gran % (Auto) 0.700, Neut% (Auto) 76.9 H, Lymph % (Auto) 13.6 L,[place] % (Auto) 8.2, Eos % (Auto) 0.2, Baso % (Auto) 0.4, Absolute Neuts (auto) 6.9, Absolute Lymphs (auto) 1.22, Platelet Estimate A, RBC Morphology NORM C+C, Sodium 138, Potassium 3.4, Chloride 105, Carbon Dioxide 21.8, Anion Gap 12, BUN 8, Creatinine 0.75, Estim Creat Clear Calc 134.36, Est GFR (MDRD) Non-Af 113, BUN/Creatinine Ratio 11.1, Glucose 102 H, Calcium 8.2, Magnesium 1.4 L, Total Bilirubin 0.91, AST 134 H, ALT 211 H, Alkaline Phosphatase 119 H, Total Protein 6.3, Albumin 3.6, Globulin 2.7, Albumin/Globulin Ratio 1.3, Lipase 18 11/15/24 05:15: WBC 8.0, RBC 3.79 L, Hgb 11.3 L, Hct 33.3 L, MCV 87.9, MCH 29.8,MCHC 33.9, RDW Std Deviation 41.1, RDW Coeff of Rebeca 12.7, Plt Count 147 L, MPV 10.5, Immature Gran % (Auto) 0.400, Neut% (Auto) 72.5 H, Lymph % (Auto) 19.1, [place] % (Auto) 5.8, Eos % (Auto) 1.9, Baso % (Auto) 0.3, Absolute Neuts (auto) 5.8, Absolute Lymphs (auto) 1.52, Nucleated RBC % 0, Sodium 137, Potassium 3.4, Chloride 104, Carbon Dioxide 21.1, Anion Gap 12, BUN 8, Creatinine 0.72, Estim Creat Clear Calc 139.96,Est GFR (MDRD) Non-Af 119, BUN/Creatinine Ratio 11.3, Glucose 82, Calcium 8.6, Phosphorus 2.4 L, Magnesium 2.0, Total Bilirubin 1.02, AST 75 H, ALT 147 H, Alkaline Phosphatase 117 H, Total Protein 5.9, Albumin 3.2 L, Globulin 2.7, Albumin/Globulin Ratio 1.2 Radiography Diagnostic Testing: Radiology Impression Abdomen/Pelvis CT 11/14/24 17:39 IMPRESSION: 1. Dilated small bowel loops within the right lower abdomen within the region ofthe prior bowel resections, which may represent ileus/bowel obstruction. Visualization is limited without the use of oral contrast material. No pneumoperitoneum. 2. Mild biliary ductal dilation with pancreatic and biliary stents in place. 3. Bibasilar atelectasis. Reading Location: [facility] Physical Exam Narrative General: Alert, Oriented x3, Cooperative, No apparent distress HEENT: Atraumatic, PERRLA, EOMI, Normocephalic Oral: Moist Mucosa Neck: Supple, No JVD Lungs: Diminished, Normal air movement, No rhonchi, No wheeze, No rales Cardiovascular: Regular rate, Regular Rhythm, Normal S1, Normal S2, No murmurs Abdomen: Soft, nontender to palpation currently, Non-Distended, No Hepato- splenomegaly, AYSE right upper quadrant Extremities: No edema, Capillary Refill Less than 3 Seconds Skin: No rashes, No breakdown Musculoskeletal: No Tenderness to Palpation of Joints or Extremities Neurological: No focal neurological deficits, Motor Exam 5/5 strength throughout, Sensory exam intact to light touch and pain Psych/Mental Status: Normal Affect, Appropriate Assessment & Plan Assessment/Plan (1) Bile leak: (2) Abdominal pain: (3) Transaminitis: PLAN: Plan 1. Abdominal pain and nausea and vomiting with leukocytosis and elevated LFTs after a subtotal cholecystectomy with a bile leak with placement of a covered stent in her common bile duct on 11/13/2024 ? Per gastroenterology's recommendation we will consult general surgery as she continues to have a bile leak evidenced by the significant fluid collection her AYSE drain ? Continue clear liquids ? Zosyn, leukocytosis has resolved ? Pain medications ? May have an ileus ? There continues to be improvement in her LFTs and her total bilirubin is normal indicating that there is no obstruction ? Culture of the drain fluid is pending 2. Anemia ? Very mild and she is ? Her hemoglobin is at her baseline ? No intervention planned 3. She is so limits mobility and will provide pumping supplies as she is breast-feeding DVT: Lovenox Charges/Coding Visit Charges Inpatient E&M: 24177 Subs Hosp L2 11/15/24 1122 Cosigner Signature (if applicable): CC: ~ Signed [facility]2025 Consult note Author Ld Chacon [facility] Note Date/Time November 14, 2024 7:31p m [facility] Medical Records Department [address] [place] [address] Consultation - GI 11/14/241921 MR#: [id number] Acct: [id number] Name: LUCY CROWLEY V Rep #:[id number] : 2000 24 From: Ld Chacon DO PCP: Dr. Heather Ruby, Status:A DM IN [facility] HPI Consult Data Date of Consult: 11/14/24 HPI Narrative HPI Narrative: LUCY CROWLEY, is a 24 F with a history of cholecystitis and choledocholithiasisstatus post ERCP with stent placement and subtotal cholecystectomy for extremelyinflamed and chronically thickened gallbladder. She developed a bile leak abouta week after the procedure. She had already had a sphincterotomy and stent placed. AYSE drain was draining bilious output. Due to persistent bile leak she comes in for stent removal, occlusion cholangiogram and placement of longer stents or fully covered metal stents for treatment of bile leak. She underwent ERCP with stent exchange. She came back to the hospital with abdominal tenderness in the right lower quadrant and periumbilical region. She was afebrile. White blood cell count was normal. She still having a significant amount of drainage from her AYSE drain as per the patient. CT/Abdomen/Pelvis W IV Cont ONLY IMPRESSION: 1. Dilated small bowel loops within the right lower abdomen within the region ofthe prior bowel resections, which may represent ileus/bowel obstruction. Visualization is limited without the use of oral contrast material. No pneumoperitoneum. 2. Mild biliary ductal dilation with pancreatic and biliary stents in place. 3. Bibasilar atelectasis. [facility] Medical History Wears glasses Non-smoker Bile leak [...] does not use ROS Constitutional Constitutional: Reports chills and malaise; Denies anorexia, change in weight, fatigue, fever(s), night sweats, weakness or other Eyes Eyes: Denies blurry vision, change in eye color, change in vision, discharge from eye(s), double vision, erythema, eye pain, loss of vision or other ENT HEENT: Denies abnormal hearing, dysphagia, ear pain, epistaxis, headache(s), hearing loss, nasal congestion, nasal discharge, post nasal drip, sinus pressure, sore throat or other Cardiovascular Cardiovascular: Denies chest pain, claudication, dyspnea on exertion, edema, lightheadedness, orthopnea, palpitations, paroxysmal nocturnal dyspnea, rapid heart rate, syncope or other Respiratory/Chest Respiratory/Chest: Denies cough, dyspnea, excessive phlegm production, hemoptysis, productive cough, shortness of breath at rest, shortness of breath with exertion, wheezing or other Gastrointestinal Gastrointestinal: Reports abdominal pain, dyspepsia, nausea and vomiting; Deniescoffee ground emesis, constipation, diarrhea, hematemesis, hematochezia, loose stools, melena or other Genitourinary Genitourinary: Denies burning urination, difficulty urinating, dysuria, hematuria, nocturia, urinary frequency, urinary hesitancy, urinary incontinence,urinary urgency or other Musculoskeletal Musculoskeletal: Reports back pain; Denies arthralgias, joint pain, joint stiffness, joint swelling, myalgias, neck pain or other Neurologic Neurologic: Denies abnormal gait, abnormal speech, confusion, disequilibrium, dizziness, focal weakness, headache(s), numbness, paresthesias, seizure-like activity, seizures, syncope, tingling, tremor(s) or other Psychiatric Psychiatric: Denies anxiety, depression, homicidal ideation, suicidal ideation or other Endocrine Endocrinology: Denies change in body appearance, cold intolerance, excessive sweating, heat intolerance, polydipsia, polyuria or other Hematologic/Lymphatic Hematologic/Lymphatic: Denies anemia, easy bleeding, easy bruising, lymphadenopathy or other Allergic/Immunologic Allergic/Immunologic: Denies rhinitis, hives, eczemia, asthma or other Physical Exam Narrative She is alert and oriented x 3. She is in no acute distress. Abdomen is soft And appropriately tender. AYSE drain with clear and small amount of bile tinged output Lab / Micro Data 11/14/24 17:40 11/14/24 17:40 Labs: Laboratory Results - last 24 hr 11/14/24 17:40: WBC 9.0, RBC 3.59 L, Hgb 10.8 L, Hct 31.4 L, MCV 87.5, MCH 30.1,MCHC 34.4, RDW Std Deviation 41.1, RDW Coeff of Rebeca 12.9, Plt Count 145 L, MPV 10.7, Neut % (Auto) Not Reportable, Platelet Estimate A, RBC Morphology NORM C+C, Sodium 138, Potassium 3.4, Chloride 105, Carbon Dioxide 21.8, Anion Gap 12,BUN 8, Creatinine 0.75, Estim Creat Clear Calc 134.36, Est GFR (MDRD) Non-Af 113, BUN/Creatinine Ratio 11.1, Glucose 102 H, Calcium 8.2, Magnesium 1.4 L, Total Bilirubin 0.91, AST 134 H, ALT 211 H, Alkaline Phosphatase 119 H, Total Protein 6.3, Albumin 3.6, Globulin 2.7, Albumin/Globulin Ratio 1.3, Lipase 18 Imaging Radiology Impression Abdomen/Pelvis CT 11/14/24 17:39 IMPRESSION: 1. Dilated small bowel loops within the right lower abdomen within the region ofthe prior bowel resections, which may represent ileus/bowel obstruction. Visualization is limited without the use of oral contrast material. No pneumoperitoneum. 2. Mild biliary ductal dilation with pancreatic and biliary stents in place. 3. Bibasilar atelectasis. Reading Location: [id number] Assessment & Plan Assessment/Plan (1) Transaminitis: (2) Nausea & vomiting: (3) Abdominal pain: (4) Bile leak: (5) Hx of cholecystectomy: (6) Abnormal CT of the abdomen: PLAN: 24-year-old who is 10 weeks who presented with abdominal pain and was diagnosed with acute choledocholithiasis and acute cholecystitis approximately 8 weeks ago. She underwent ERCP with stone removal and temporary stent placement. She came back and had worsening abdominal pain to [facility] while awaiting evaluation at [facility] for elective cholecystectomy with acute cholecystitis. She underwent a subtotal cholecystectomy. She had persistent bile leak so her plastic stent was exchanged for metal stent. She comes back in today with abdominal distention and abdominal pain. CT scan abdomen pelvis shows metal stent in place without any other abnormalities except for dilated small bowel to 5.4 cm possibly secondary to ileus versus small bowel obstruction. Recommend surgical consultation. Patient would likely need a contrast study such as small bowel follow-through or CT with oral contrast. She will also likely need stent exchange with longer bilateral intrahepatic stents or removal of fully covered metal stent with surgery to repair bile leak. Charges/Coding Visit Charges Inpatient E&M: 05977 Init Hosp L3 11/14/241930 <Electronically signed by Ld Chacon DO> Cosigner Signature (if applicable): CC: Dr. Heather Ruby DO~ Signed [facility] Work Phone: 1(118) 985-225806-07-2025 History and physical note Author Doris Chacon [facility] Note Date/Time November 14, 2024 5:48p m [facility] Medical Records Department [address] [place] [id number] H&P Exam - Hospitalist 11/14/24 1700 MR#: [id number] Acct: [id number] Name: LUCY CROWLEY V Rep #:[id number] : 2000 From: Doris Chacon DO PCP: Dr. Heather Ruby DO Status:A DM GLO Location: [id number] HPI - General General Date of Admission: 11/14/24 Date of Service: 11/14/24 Chief Complaint: Abdominal pain HPI Narrative LUCY CROWLEY, is a 24 F who presented to the emergency department at [facility] on 11/14/2024 complaining of abdominal pain in the epigastrium. Patient underwent a subtotal cholecystectomy on 10/21/2024 and then was seen in the outpatient setting by gastroenterology on 11/13/2024 at which time an ERCP was performed and a bile leak was found along with choledocholithiasis with a moderately dilated biliary system. A sphincterotomy was performed and complete removal of the stone was performed via sphincterotomy and balloon extraction. One stent was removed from the biliary tree and a covered metal stent was placedin the common bile duct. Patient reported she did well postprocedure but then developed abdominal pain with 3 bouts of nausea vomiting last evening. No vomiting today but still having pretty significant abdominal pain most notably in the epigastrium. Given the pain and nausea and vomiting she presented to outside hospital ([place]) and was transferred here as all of her care has been provided at [facility] by general surgery and gastroenterology. Vital signs on presentation outside emergency department showed a temperature of98.8, blood pressure was 109/50, heart rate was 119, respiratory rate was 22 andpulse ox was 98% on room air. Vital signs on arrival here showed temperature of99.7, heart rate 103, blood pressure 109/73, respiratory of 18 and pulse ox of 90% on room air. She had a mild leukocytosis and anemia. Her lactic acid was mildly elevated but on repeat had improved. LFTs were elevated slightly but bilirubin was normal. CT of the abdomen pelvis did not show any abscesses or otherwise. She was given IV fluids, antibiotics, and pain medication along with antiemeticsand transferred here for further care. [facility] Medical History Wears glasses Non-smoker Bile leak [...] does not use ROS Constitutional Constitutional: Reports chills and malaise; Denies anorexia, change in weight, fatigue, fever(s), night sweats, weakness or other Eyes Eyes: Denies blurry vision, change in eye color, change in vision, discharge from eye(s), double vision, erythema, eye pain, loss of vision or other ENT HEENT: Denies abnormal hearing, dysphagia, ear pain, epistaxis, headache(s), hearing loss, nasal congestion, nasal discharge, post nasal drip, sinus pressure, sore throat or other Cardiovascular Cardiovascular: Denies chest pain, claudication, dyspnea on exertion, edema, lightheadedness, orthopnea, palpitations, paroxysmal nocturnal dyspnea, rapid heart rate, syncope or other Respiratory/Chest Respiratory/Chest: Denies cough, dyspnea, excessive phlegm production, hemoptysis, productive cough, shortness of breath at rest, shortness of breath with exertion, wheezing or other Gastrointestinal Gastrointestinal: Reports abdominal pain, dyspepsia, nausea and vomiting; Deniescoffee ground emesis, constipation, diarrhea, hematemesis, hematochezia, loose stools, melena or other Genitourinary Genitourinary: Denies burning urination, difficulty urinating, dysuria, hematuria, nocturia, urinary frequency, urinary hesitancy, urinary incontinence,urinary urgency or other Musculoskeletal Musculoskeletal: Reports back pain; Denies arthralgias, joint pain, joint stiffness, joint swelling, myalgias, neck pain or other Neurologic Neurologic: Denies abnormal gait, abnormal speech, confusion, disequilibrium, dizziness, focal weakness, headache(s), numbness, paresthesias, seizure-like activity, seizures, syncope, tingling, tremor(s) or other Psychiatric Psychiatric: Denies anxiety, depression, homicidal ideation, suicidal ideation or other Endocrine Endocrinology: Denies change in body appearance, cold intolerance, excessive sweating, heat intolerance, polydipsia, polyuria or other Hematologic/Lymphatic Hematologic/Lymphatic: Denies anemia, easy bleeding, easy bruising, lymphadenopathy or other Allergic/Immunologic Allergic/Immunologic: Denies rhinitis, hives, eczemia, asthma or other Physical Exam Const alert, oriented x3, no apparent distress and well nourished; Negative for average body habitus Constitutional Narrative: Obese, very pleasant, young, white Jainism female, sitting up in bed, currently appears comfortable, does not look toxic, at bedside General Appearance: cooperative HEENT normocephalic, head/scalp atraumatic and hearing grossly normal bilaterally Resp normal respiratory effort, no retractions, no use of accessory muscles and clearto auscultation bilaterally Auscultation: Negative for rales, rhonchi or wheezes Cardio regular rhythm, S1 normal heart sound, S2 normal heart sound, no murmurs, no rub, no gallops and no clicks Cardio Narrative: Mild tachycardia GI normal to inspection, nondistended, normoactive bowel sounds and soft to palpation GI Narrative: Tenderness in the epigastrium, John-Amador drain in place with significant amount of turbid looking fluid in the bulb Extremity no clubbing, cyanosis or edema Extremity Narrative: Pedal and radial pulses are 2+ Neuro oriented x3, moves all extremities and no focal motor deficits Speech: speech normal Psych affect normal Psych Narrative: Very pleasant, interacts appropriately Assessment & Plan Assessment/Plan (1) Bile leak: (2) Abdominal pain: (3) Nausea & vomiting: (4) Lactic acidosis: (5) Hypomagnesemia: (6) Transaminitis: (7) Leukocytosis: (8) Anemia: PLAN: Plan Abdominal pain/nausea and vomiting - Patient with recent cholecystectomy on 10/21/2024 at which time biliary stent was placed - Patient followed up with GI on 11/03/2024 for discussion about previous stent placement and patient was recommended for ERCP with replacement stent of a larger size - Performed 11/13/2024 - After discharge patient developed abdominal pain, nausea, and vomiting so presented to [place] ED and was transferred here - Patient reports low-grade fever so we will start Zosyn and culture fluid from biliary drain - IV fluids at 125 cc/h x 3 L - As needed antiemetics - As needed morphine for pain - Trying to avoid Toradol as she is breast-feeding at this time but may need to use - Consult GI-Case discussed with Dr. Chacon - Will hold off on general surgery consultation for now until Dr. Chacon evaluates the patient Leukocytosis - Mild - Zosyn as above - Will check blood cultures Mild transaminitis - Bilirubin is normal - Suspect related to the above - Lipase is normal so no post ERCP pancreatitis - Repeat lab in a.m. Hypomagnesemia - Will repeat mag level as I am unclear if this was replaced at outside hospital - If still low will replace - Repeat in a.m. Lactic acidosis - Suspect related to the above - Is trending down - IV fluids as ordered - Blood pressure stable Mild anemia - Hemoglobin is 11.8 - Likely related to recent - Repeat lab in a.m. to monitor for stability History of biliary leak - Question if she develop has other leak given the amount of drainage she is having out of her John-Amador drain - Will culture drain fluid - Antibiotics as noted above - Management per GI and possibly general surgery depending on recommendations from GI Recently - [facility] has been contacted to supply pumping supplies for patient as she is breast-feeding DVT prophylaxis Lovenox 40 subcu daily CODE STATUS - Full code Charges/Coding Visit Charges Inpatient E&M: 95397 Init Hosp L2 11/14/24 1748 <Electronically signed by Doris Chacon DO> Cosigner Signature (if applicable): CC: Dr. Doris Chacon DO; Dr. Heather Ruby DO~ Signed [facility] Work Phone: 1(454) [phone] Consult note [facility] Medical Records Department [address] [place] [address] Consultation - GI 11/14/24 192 MR#: [id number] Acct: [id number] Name: LUCY CROWLEY V Rep #:[id number] : 2000 24 From: Ld Chacon DO PCP: Dr. Heather Ruby DO Status:A DM IN Location: MS3 [id number] HPI Consult Data Date of Consult: 11/14/24 HPI Narrative HPI Narrative: LUCY CROWLEY, is a 24 F with a history of cholecystitis and choledocholithiasisstatus post ERCP with stent placement and subtotal cholecystectomy for extremelyinflamed and chronically thickened gallbladder. She developed a bile leak abouta week after the procedure. She had already had a sphincterotomy and stent placed. AYSE drain was draining bilious output. Due to persistent bile leak she comes in for stent removal, occlusion cholangiogram and placement of longer stents or fully covered metal stents for treatment of bile leak. She underwent ERCP with stent exchange. She came back to the hospital with abdominal tenderness in the right lower quadrant and periumbilical region. She was afebrile. White blood cell count was normal. She still having a significant amount of drainage from her AYSE drain as per the patient. CT/Abdomen/Pelvis W IV Cont ONLY IMPRESSION: 1. Dilated small bowel loops within the right lower abdomen within the region ofthe prior bowel resections, which may represent ileus/bowel obstruction. Visualization is limited without the use of oral contrast material. No pneumoperitoneum. 2. Mild biliary ductal dilation with pancreatic and biliary stents in place. 3. Bibasilar atelectasis. [facility] Medical History Wears glasses Non-smoker Bile leak [...] does not use ROS Constitutional Constitutional: Reports chills and malaise; Denies anorexia, change in weight, fatigue, fever(s), night sweats, weakness or other Eyes Eyes: Denies blurry vision, change in eye color, change in vision, discharge from eye(s), double vision, erythema, eye pain, loss of vision or other ENT HEENT: Denies abnormal hearing, dysphagia, ear pain, epistaxis, headache(s), hearing loss, nasal congestion, nasal discharge, post nasal drip, sinus pressure, sore throat or other Cardiovascular Cardiovascular: Denies chest pain, claudication, dyspnea on exertion, edema, lightheadedness, orthopnea, palpitations, paroxysmal nocturnal dyspnea, rapid heart rate, syncope or other Respiratory/Chest Respiratory/Chest: Denies cough, dyspnea, excessive phlegm production, hemoptysis, productive cough, shortness of breath at rest, shortness of breath with exertion, wheezing or other Gastrointestinal Gastrointestinal: Reports abdominal pain, dyspepsia, nausea and vomiting; Deniescoffee ground emesis, constipation, diarrhea, hematemesis, hematochezia, loose stools, melena or other Genitourinary Genitourinary: Denies burning urination, difficulty urinating, dysuria, hematuria, nocturia, urinary frequency, urinary hesitancy, urinary incontinence,urinary urgency or other Musculoskeletal Musculoskeletal: Reports back pain; Denies arthralgias, joint pain, joint stiffness, joint swelling, myalgias, neck pain or other Neurologic Neurologic: Denies abnormal gait, abnormal speech, confusion, disequilibrium, dizziness, focal weakness, headache(s), numbness, paresthesias, seizure-like activity, seizures, syncope, tingling, tremor(s) or other Psychiatric Psychiatric: Denies anxiety, depression, homicidal ideation, suicidal ideation or other Endocrine Endocrinology: Denies change in body appearance, cold intolerance, excessive sweating, heat intolerance, polydipsia, polyuria or other Hematologic/Lymphatic Hematologic/Lymphatic: Denies anemia, easy bleeding, easy bruising, lymphadenopathy or other Allergic/Immunologic Allergic/Immunologic: Denies rhinitis, hives, eczemia, asthma or other Physical Exam Narrative She is alert and oriented x 3. She is in no acute distress. Abdomen is soft And appropriately tender. AYSE drain with clear and small amount of bile tinged output Lab / Micro Data 11/14/24 17:40 11/14/24 17:40 Labs: Laboratory Results - last 24 hr 11/14/24 17:40: WBC 9.0, RBC 3.59 L, Hgb 10.8 L, Hct 31.4 L, MCV 87.5, MCH 30.1,MCHC 34.4, RDW Std Deviation 41.1, RDW Coeff of Rebeca 12.9, Plt Count 145 L, MPV 10.7, Neut % (Auto) Not Reportable, Platelet Estimate A, RBC Morphology NORM C+C, Sodium 138, Potassium 3.4, Chloride 105, Carbon Dioxide 21.8, Anion Gap 12,BUN 8, Creatinine 0.75, Estim Creat Clear Calc 134.36, Est GFR (MDRD) Non-Af 113, BUN/Creatinine Ratio 11.1, Glucose 102 H, Calcium 8.2, Magnesium 1.4 L, Total Bilirubin 0.91, AST 134H, ALT 211 H, Alkaline Phosphatase 119 H, Total Protein 6.3, Albumin 3.6, Globulin 2.7, Albumin/Globulin Ratio 1.3, Lipase 18 Imaging Radiology Impression Abdomen/Pelvis CT 11/14/24 17:39 IMPRESSION: 1. Dilated small bowel loops within the right lower abdomen within the region ofthe prior bowel resections, which may represent ileus/bowel obstruction. Visualization is limited without the use of oral contrast material. No pneumoperitoneum. 2. Mild biliary ductal dilation with pancreatic and biliary stents in place. 3. Bibasilar atelectasis. Reading Location: [id number] Assessment & Plan Assessment/Plan (1) Transaminitis: (2) Nausea & vomiting: (3) Abdominal pain: (4) Bile leak: (5) Hx of cholecystectomy: (6) Abnormal CT of the abdomen: PLAN: 24-year-old who is 10 weeks who presented with abdominal pain and was diagnosed with acute choledocholithiasis and acute cholecystitis approximately 8 weeks ago. She underwent ERCP with stone removal and temporary stent placement. She came back and had worsening abdominal pain to [facility] while awaiting evaluation at [facility] for elective cholecystectomy with acute cholecystitis. She underwent a subtotal cholecystectomy. She had persistent bile leak so her plastic stent was exchanged for metal stent. She comes back in today with abdominal distentionand abdominal pain. CT scan abdomen pelvis shows metal stent in place without any other abnormalities except for dilated small bowel to 5.4 cm possibly secondary to ileus versus small bowel obstruction. Recommend surgical consultation. Patient would likely need a contrast study such as small bowel follow-through or CT with oral contrast. She will also likely need stent exchange with longer bilateral intrahepatic stents or removal of fully covered metal stent with surgery to repair bile leak. Charges/Coding Visit Charges Inpatient E&M: 24966 Init Hosp L3 11/14/241930 Cosigner Signature (if applicable): CC: Dr. Heather Ruby DO~ Signed [facility]2025 Radiology Diagnostic study note [facility] Imaging Services [address] [place] [address] Abdomen/Pelvis W IV Cont ONLY MR#: [id number] Acct: [id number] Name: LUCY CROWLEY V Rep #: [id number] : 2000 F 24 From: Vicki Ortega MD PCP: Dr. Heather Ruby DO Status: A DM IN Study:Abdomen/Pelvis W IV Cont ONLY Date of E xam: 11/14/24 Exam# [id number] Ordering Dr: Smitha Chacon DO PROCEDURE: ABDOMEN/PELVIS W IV CONT ONLY 11/14/2024 REASON FOR EXAM: BILE LEAK TECHNIQUE: Abdomen and pelvis CT with intravenous contrast. Coronal and Sagittal reconstruction series were provided. PATIENT PREPARATION: Per protocol ORAL CONTRAST TYPE: None. CONTRAST: Isovue 370 VOLUME: 100 mL One or more dose reduction techniques were used (e.g., Automated exposure control, adjustment of the mA and/or kV according to patient size, use of iterative reconstruction technique. RADIATION DOSE SUMMARY: CTDlvol: 33 mGy DLP: 1200 mGycm COMPARISON: HIDA scan 10/28/2024. FINDINGS: Lung bases: Bibasilar atelectasis. The heart is normal in size. Liver: The liver is normal in size without suspicious hepatic mass. The major portal veins are patent. Mild biliary ductal dilation with pancreatic and biliary stents in place. Surgical drain within thegallbladder fossa. Gallbladder: Prior partial cholecystectomy. Spleen: Normal size. Pancreas: Unremarkable. Adrenals: No adrenal mass. Kidneys: No hydronephrosis or nephrolithiasis. Bladder: Contrast opacifies the urinary bladder. The urinary bladder is mildly distended and grossly unremarkable. Reproductive Organs: Normal uterine size and contour. Ovaries are unremarkable. Bowel: Prior surgical resections and anastomosis. Focal area of dilated small bowel loops within the lower right abdomen measuring up to 5.4 cm (coronal image 36). Visualization for small bowel obstruction is limited without the use of oral contrast material. Small volume free fluid within the pelvic cul-de-sac. No pneumoperitoneum. Prior appendectomy. Lymph nodes: No suspicious lymphadenopathy. Vasculature: The abdominal aorta and IVC are normal. Bones/soft tissues: No aggressive osseous lesions. CT/Abdomen/Pelvis W IV Cont ONLY IMPRESSION: 1. Dilated small bowel loops within the right lower abdomen within the region ofthe prior bowel resections, which may represent ileus/bowel obstruction. Visualization is limited without the use of oral contrast material. No pneumoperitoneum. 2. Mild biliary ductal dilation with pancreatic and biliary stents in place. 3. Bibasilar atelectasis. Reading Location: [id number] CC: Dr. Heather Ruby DO; Ld Chacon DO ~ Emery Wheel Molder: Signed [facility]06-07-2025 History and physical note [facility] Medical Records Department [address] [place] [address] H&P Exam - Hospitalist 11/14/24 1700 MR#: [id number] Acct: [id number] Name: LUCY CROWLEY V Rep #:[id number] : 2000 24 From: Doris Chacon DO PCP: Dr. Heather Ruby DO Status:A DM GLO Location: [facility] [id number] HPI - General General Date of Admission: 11/14/24 Date of Service: 11/14/24 Chief Complaint: Abdominal pain HPI Narrative LUCY CROWLEY, is a 24 F who presented to the emergency department at [facility] on 11/14/2024 complaining of abdominal pain in the epigastrium. Patient underwent a subtotal cholecystectomy on 10/21/2024 and then was seen in the outpatient setting by gastroenterology on 11/13/2024 at which time an ERCP was performed and a bile leak was found along with choledocholithiasis with a moderately dilated biliary system. A sphincterotomy was performed and complete removal of the stone was performed via sphincterotomy and balloon extraction. One stent was removed from the biliary tree and a covered metal stent was placedin the common bile duct. Patient reported she did well postprocedure but then developed abdominal pain with 3 bouts of nausea vomiting last evening. No vomiting today but still having pretty significant abdominal pain most notably in the epigastrium. Given the pain and nausea and vomiting she presented to outside hospital ([place]) and was transferred here as all of her care has been provided at [facility] by general surgery and gastroenterology. Vital signs on presentation outside emergency department showed a temperature of98.8, blood pressure was 109/50, heart rate was 119, respiratory rate was 22 andpulse ox was 98% on room air. Vital signs on arrival here showed temperature of99.7, heart rate 103, blood pressure 109/73, respiratory of 18 and pulse ox of 90% on room air. She had a mild leukocytosis and anemia. Her lactic acid was mildly elevated but on repeat had improved. LFTs were elevated slightly but bilirubin was normal. CT of the abdomen pelvis did not show any abscesses or otherwise. She was given IV fluids, antibiotics, and pain medication along with antiemeticsand transferred here for further care. [facility] Medical History Wears glasses Non-smoker Bile leak [...] does not use ROS Constitutional Constitutional: Reports chills and malaise; Denies anorexia, change in weight, fatigue, fever(s), night sweats, weakness or other Eyes Eyes: Denies blurry vision, change in eye color, change in vision, discharge from eye(s), double vision, erythema, eye pain, loss of vision or other ENT HEENT: Denies abnormal hearing, dysphagia, ear pain, epistaxis, headache(s), hearing loss, nasal congestion, nasal discharge, post nasal drip, sinus pressure, sore throat or other Cardiovascular Cardiovascular: Denies chest pain, claudication, dyspnea on exertion, edema, lightheadedness, orthopnea, palpitations, paroxysmal nocturnal dyspnea, rapid heart rate, syncope or other Respiratory/Chest Respiratory/Chest: Denies cough, dyspnea, excessive phlegm production, hemoptysis, productive cough, shortness of breath at rest, shortness of breath with exertion, wheezing or other Gastrointestinal Gastrointestinal: Reports abdominal pain, dyspepsia, nausea and vomiting; Deniescoffee ground emesis, constipation, diarrhea, hematemesis, hematochezia, loose stools, melena or other Genitourinary Genitourinary: Denies burning urination, difficulty urinating, dysuria, hematuria, nocturia, urinary frequency, urinary hesitancy, urinary incontinence,urinary urgency or other Musculoskeletal Musculoskeletal: Reports back pain; Denies arthralgias, joint pain, joint stiffness, joint swelling, myalgias, neck pain or other Neurologic Neurologic: Denies abnormal gait, abnormal speech, confusion, disequilibrium, dizziness, focal weakness, headache(s), numbness, paresthesias, seizure-like activity, seizures, syncope, tingling, tremor(s) or other Psychiatric Psychiatric: Denies anxiety, depression, homicidal ideation, suicidal ideation or other Endocrine Endocrinology: Denies change in body appearance, cold intolerance, excessive sweating, heat intolerance, polydipsia, polyuria or other Hematologic/Lymphatic Hematologic/Lymphatic: Denies anemia, easy bleeding, easy bruising, lymphadenopathy or other Allergic/Immunologic Allergic/Immunologic: Denies rhinitis, hives, eczemia, asthma or other Physical Exam Const alert, oriented x3, no apparent distress and well nourished; Negative for average body habitus Constitutional Narrative: Obese, very pleasant, young, white Jainism female, sitting up in bed, currently appears comfortable, does not look toxic, at bedside General Appearance: cooperative HEENT normocephalic, head/scalp atraumatic and hearing grossly normal bilaterally Resp normal respiratory effort, no retractions, no use of accessory muscles and clearto auscultation bilaterally Auscultation: Negative for rales, rhonchi or wheezes Cardio regular rhythm, S1 normal heart sound, S2 normal heart sound, no murmurs, no rub, no gallops and noclicks Cardio Narrative: Mild tachycardia GI normal to inspection, nondistended, normoactive bowel sounds and soft to palpation GI Narrative: Tenderness in the epigastrium, John-Amador drain in place with significant amount of turbid looking fluid in the bulb Extremity no clubbing, cyanosis or edema Extremity Narrative: Pedal and radial pulses are 2+ Neuro oriented x3, moves all extremities and no focal motor deficits Speech: speech normal Psych affect normal Psych Narrative: Very pleasant, interacts appropriately Assessment & Plan Assessment/Plan (1) Bile leak: (2) Abdominal pain: (3) Nausea & vomiting: (4) Lactic acidosis: (5) Hypomagnesemia: (6) Transaminitis: (7) Leukocytosis: (8) Anemia: PLAN: Plan Abdominal pain/nausea and vomiting - Patient with recent cholecystectomy on 10/21/2024 at which time biliary stent was placed - Patient followed up with GI on 11/03/2024 for discussion about previous stent placement and patient was recommended for ERCP with replacement stent of a larger size - Performed 11/13/2024 - After discharge patient developed abdominal pain, nausea, and vomiting so presented to [place] ED and was transferred here - Patient reports low-grade fever so we will start Zosyn and culture fluid from biliary drain - IV fluids at 125 cc/h x 3 L - As needed antiemetics - As needed morphine for pain - Trying to avoid Toradol as she is breast-feeding at this time but may need to use - Consult GI-Case discussed with Dr. Chacon - Will hold off on general surgery consultation for now until Dr. Chacon evaluates the patient Leukocytosis - Mild - Zosyn as above - Will check blood cultures Mild transaminitis - Bilirubin is normal - Suspect related to the above - Lipase is normal so no post ERCP pancreatitis - Repeat lab in a.m. Hypomagnesemia - Will repeat mag level as I am unclear if this was replaced at outside hospital - If still low will replace - Repeat in a.m. Lactic acidosis - Suspect related to the above - Is trending down - IV fluids as ordered - Blood pressure stable Mild anemia - Hemoglobin is 11.8 - Likely related to recent - Repeat lab in a.m. to monitor for stability History of biliary leak - Question if she develop has other leak given the amount of drainage she is having out of her John-Amador drain - Will culture drain fluid - Antibiotics as noted above - Management per GI and possibly general surgery depending on recommendations from GI Recently - [facility] has been contacted to supply pumping supplies for patient as she is breast-feeding DVT prophylaxis Lovenox 40 subcu daily CODE STATUS - Full code Charges/Coding Visit Charges Inpatient E&M: 64693 Init Hosp L2 11/14/24 1748 Cosigner Signature (if applicable): CC: Dr. Doris Chacon DO; Dr. Heather Ruby DO~ [facility]igned [facility] Consult note [facility] Medical Records Department [address] [place] [address] Anesthesia Postop Eval II 11/13/24 1102 MR#: [id number] Acct: [id number] Name: LUCY CROWLEY V Rep #:[id number] : 2000 24 From: Saran Fragoso MD PCP: Dr. Heather Ruby DO Status:R EG [facility] [place] Race: C Location: [place] [address]-1 Anesthesia Postop Eval I Sum Postop Eval [...] 0 nausea: No Vomiting: No 11/13/24 1102 > Date _ Saran Dean Signature: Date CC: ~ Signed [facility]2025 Consult note Author Marcial Marie [facility] Note Date/Time November 13, 2024 9:04a [facility] Medical Records Department [address] [place] [address] Anesthesia Postop Eval I 11/13/24902 MR#: [id number] Acct: [id number] Name: LUCY CROWLEY V Rep #:[id number] : 2000 From: Marcial Marie PCP: Dr. Heather Ruby, DO Status:R EG [facility] Y Race: C Location: [place] [address] Anesthesia: Postop Eval I Current Vital Signs [...] by Marcial Marie > Date _ Marcial Dean Signature: Date CC: ~ Signed [facility] Work Phone: 1(315) 973-405006-06-2025 Radiology Diagnostic study note [facility] Imaging Services [address] [place], [place] [address] ERCP Biliary/Pancreas MR#: [id number] Acct: [id number] Name: LUCY CROWLEY V Rep #: [id number] : 2000 From: Blayne Stout MD PCP: Dr. Heather Ruby DO Status: [place] [facility] Study:ERCP Biliary/Pancreas Date of Exam: 11/13/24 Exam# [id number] Ordering Dr: Smitha Chacon DO PROCEDURE: ERCP BILIARY/PANCREAS; O.R. FLUORO FOR C-ARM 11/13/2024 REASON FOR EXAM: ERCP TECHNIQUE: Intraoperative fluoroscopy was performed for ERCP. 11 fluoroscopic images were also obtained. RAD/ERCP Biliary/Pancreas IMPRESSION: Intraoperative fluoroscopy was performed for ERCP. 11 fluoroscopic images were also obtained. Reading Location: [address] CC: Dr. Heather Ruby DO; Ld Chacon DO ~ Emery Wheel Molder: Signed [facility] Radiology Diagnostic study note [facility] Imaging Services [address] [place] [address] O.R. Fluoro for C-Arm MR#: [id number] Acct: [id number] Name: LUCY CROWLEY V Rep #: [id number] : 2000 From: Blayne Stout MD PCP: Dr. Heather Ruby DO Status: [place] [facility] Study:O.R. Fluoro for C-Arm Date of Exam: 11/13/24 Exam# [id number] Ordering Dr: Smitha Chacon DO PROCEDURE: ERCP BILIARY/PANCREAS; O.R. FLUORO FOR C-ARM 11/13/2024 REASON FOR EXAM: ERCP TECHNIQUE: Intraoperative fluoroscopy was performed for ERCP. 11 fluoroscopic images were also obtained. RAD/O.R. Fluoro for C-Arm IMPRESSION: Intraoperative fluoroscopy was performed for ERCP. 11 fluoroscopic images were also obtained. Reading Location: [id number] CC: Dr. Heather Ruby DO; Ld Chacon DO ~ Emery Wheel Molder: Signed [facility]25 Procedure note [facility] Medical Records Department [address] [place] [address] ERCP Report MR#: [id number] Acct: [id number] Name: LUCY CROWLEY V Rep #:[id number] : 2000 24 From: Ld Chacon DO PCP: Dr. Heather Ruby DO Status:R [facility] Patient Name: Lucy Crowley Procedure Date: 11/13/2024 [...] hours 15 minutes 39 seconds Findings: The animal bounty hunter film was normal. A biliary stent was visible on the animal bounty hunter film. The bile duct was deeply cannulated [...] bile duct. Procedure Code(s): --- Professional --- 79316, Endoscopic retrograde cholangiopancreatography (ERCP); with removal and exchange of stent(s), biliary or pancreatic duct, including pre- and post-dilation and guide wire passage, when performed, including sphincterotomy, when performed, each stent exchanged 45337, Endoscopic retrograde cholangiopancreatography (ERCP); with removal of calculi/debris from biliary/pancreatic duct(s) 82237, 26, Endoscopic catheterization of the biliary ductal system, radiological supervision and interpretation CPT copyright 2021 [employer]. All rights reserved. The codes documented in this report are preliminary and upon insurance coder review may be revised to meet current compliance requirements. Ld Chacon DO 11/13/2024 9:09:24 AM This report has been signed electronically. Number of Addenda: 0 Note Initiated On: 11/13/2024 7:58 AM 11/13/24 0909 Date _ Ld Chacon DO Cosigner Signature: Date (if indicated) CC: Dr. Heather Ruby DO; Ld Chacon DO ~ Date Dictated: 11/13/24 0758 Date Transcribed: Emery Wheel Molder: RF Signed [facility]2025 Procedure note [facility] Medical Records Department [address] [place] [address] Operative Report - CC Letter MR#: [id number] Acct: [id number] Name: LUCY CROWLEY V Rep #:[id number] : 2000 From: Ld Chacon DO PCP: Dr. Heather Ruby DO Status:R [facility] 11/13/2024 Heather Ruby Do Re : ERCP [...] ~ Date Dictated: 11/13/24 0758 Date Transcribed: Emery Wheel Molder: ALYSIA Signed [facility] History and physical note Author Ld Chacon [facility] Note Date/Time November 13, 2024 7:06a m [facility] Medical Records Department [address] [place] [address] History & Physical Exam 11/13/24 0703 MR#: [id number] Acct: [id number] Name: LUCY CROWLEY V Rep #:[id number] : 2000 24 From: Ld Chacon DO PCP: Dr. Heather Ruby DO Status:R EM[facility] Location: [place] [address] HPI - General General Date of Admission: [...] metal stents for treatment of bile leak. [facility] Medical History Wears glasses Non-smoker Bile leak [...] Heather Ruby DO; Ld Chacon DO~ Signed [facility] Work Phone: 1(839) 394-140806-06-2025 Consult note [facility] Medical Records Department [address] [place] [address] Anesthesia Postop Eval I 11/13/24 0903 MR#: [id number] Acct: [id number] Name: LUCY CROWLEY V Rep #:[id number] : 2000 From: Marcial Marie PCP: Dr. Heather Ruby DO Status:R EG PAC Y Race: C Location: [place] [address] Anesthesia: Postop Eval I Current Vital Signs [...] Marcial Dean Signature: Date CC: ~ Signed [facility]2025 Consult note Author Saran Fragoso [facility] Note Date/Time November 13, 2024 6:36a m [facility] Medical Records Department [address] [place] [address] Pre-Anesthesia Evaluation 11/13/24 0635 MR#: [id number] Acct: [id number] Name: LUCY CROWLEY V Rep #:[id number] : 2000 From: Saran Fragoso MD PCP: Dr. Heather Ruby, DO Status:R [facility] Y Race: C Location: [place] [address] ASA Classification* ASA Classification ASA Classification: 2 [...] Procedure(s): ERCP Anesthesia History Anesthesia History - cardiac rehab nurse: Anesthesia History - cardiac rehab nurse Hx Hospitalization Yes: 10/202411/11/24 12:40 Any Problems [...] take am of surgery PONV PONV - cardiac rehab nurse: PONV - cardiac rehab nurse Female Yes 11/11/24 12:40 HX of Motion [...] 10/20/24 21:23 Respiratory Assessment Respiratory Assessment - cardiac rehab nurse: Respiratory Tract Infection Hx - cardiac rehab nurse Hx Respiratory Tract Infection No 11/11/24 12:40 STOP Sleep Apnea STOP Sleep Apnea - cardiac rehab nurse: STOP Sleep Apnea - cardiac rehab nurse Hx Hypertension No 11/11/24 12:40 Hx Sleep [...] 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 - cardiac rehab nurse: Tobacco Use History - cardiac rehab nurse Tobacco Use Smoking Status Never smoker 11/11/24 12:40 Hx Tobacco Use No 11/11/24 12:40 Years Smoking Packs Smoked per Day Smoking Cessation Date was within the last 15 years Hx Smoking Cessation Date Hx Smoking Cessation Counseling Hematologic Medial History Hematologic Hx - cardiac rehab nurse: Hematologic Medical Hx - correctional medicine physician Hx of Blood Transfusion No 11/11/24 12:40 [...] confused, unrespo /Reproduction History /Reproductive History - cardiac rehab nurse: /Reproductive Hx- cardiac rehab nurse Hx Now No 11/11/24 12:40 Gestational Age [...] MD Cosigner Signature: Date CC: ~ Signed [facility] Work Phone: 1(318) 429-581706-06-2025 History and physical note [facility] Medical Records Department [address] [place] [address] History & Physical Exam 11/13/24 0703 MR#: [id number] Acct: [id number] Name: LCUY CROWLEY V Rep #:[id number] : 2000 From: Ld Chacon DO PCP: Dr. Heather Ruby, DO Status:R [facility] Location: [place] [address] HPI - General General Date of Admission: [...] metal stents for treatment of bile leak. [facility] Medical History Wears glasses Non-smoker Bile leak [...] CC: Dr. Heather Ruby DO; Ld Chacon, ~ Signed [facility]06-[facility]-2025 [facility]06-06-2025 Consult note [facility] Medical Records Department [address] [place] [address] Pre-Anesthesia Evaluation 11/13/24 0635 MR#: [id number] Acct: [id number] Name: LUCY CROWLEY V Rep #:[id number] : 2000 24 From: Saran Fragoso MD PCP: Dr. Heather Ruby DO Status:R EG [facility] Y Race: C Location: [place] [address] ASA Classification* ASA Classification ASA Classification: 2 [...] Procedure(s): ERCP Anesthesia History Anesthesia History - cardiac rehab nurse: Anesthesia History - cardiac rehab nurse Hx Hospitalization Yes: 10/202411/11/24 12:40 Any Problems [...] take am of surgery PONV PONV - cardiac rehab nurse: PONV - cardiac rehab nurse Female Yes 11/11/24 12:40 HX of Motion [...] 10/20/24 21:23 Respiratory Assessment Respiratory Assessment - cardiac rehab nurse: Respiratory Tract Infection Hx - cardiac rehab nurse Hx Respiratory Tract Infection No 11/11/24 12:40 STOP Sleep Apnea STOP Sleep Apnea - cardiac rehab nurse: STOP Sleep Apnea - cardiac rehab nurse Hx Hypertension No 11/11/24 12:40 Hx Sleep [...] 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 - cardiac rehab nurse: Tobacco Use History - cardiac rehab nurse Tobacco Use Smoking Status Never smoker 11/11/24 12:40 Hx Tobacco Use No 11/11/24 12:40 Years Smoking Packs Smoked per Day Smoking Cessation Date was within the last 15 years Hx Smoking Cessation Date Hx Smoking Cessation Counseling Hematologic Medial History Hematologic Hx - cardiac rehab nurse: Hematologic Medical Hx - correctional medicine physician Hx of Blood Transfusion No 11/11/24 12:40 [...] confused, unrespo /Reproduction History /Reproductive History - cardiac rehab nurse: /Reproductive Hx- cardiac rehab nurse Hx Now No 11/11/24 12:40 Gestational Age [...] Saran Dean Signature: Date CC: ~ Signed [facility]-16-2025 Discharge summary [facility] Medical Records Department [address] [place] [address] Discharge Summary 10/23/24 1305 MR#: [id number] Acct: [id number] Name: LUCY CROWLEY V Rep #:[id number] : 2000 From: Aquilino Collins MD PCP: Dr. Heather Ruby DO Status:A DM IN Location: [facility] [id number] Providers Date of Admission: 10/20/24 Date of [...] She presented to the emergency department at [facility] with right upper quadrant pain and fevers. [...] % (Auto) 57.9, Lymph % (Auto) 30.5, [place] % (Auto) 4.4, Eos % (Auto) 5.8 [...] Ruby DO; Dr. Aquilino Collins MD~ Signed [facility]16[facility] Progress note Author Wendy Santana [facility] Note Date/Time October 22, 2024 7:36a m [facility] Medical Records Department [address] [place] [address] Progress Note - Surgery 10/22/24 0650 MR#: [id number] Acct: [id number] Name: LUCY CROWLEY V Rep #:[id number] : 2000 From: Wendy IBARRAC PCP: Dr. Heather Ruby DO Status:A DM IN Location: MS3 CH999-2 Subjective Subjective Patient evaluated resting comfortably in [...] 1.0, APTT 35.3, Sodium 137, Potassium 3.3, Sahdwedy374, Carbon Dioxide 23.1, Anion Gap 12, BUN 8, Creatinine 0.68 L, Estim Creat Clear Calc 142.59, Est GFR (MDRD) Non-Af 124, BUN/Creatinine Ratio 12.2, Sapekiv25 L, Calcium 8.7, Total Bilirubin 0.46, AST [...] 82.0 H, Lymph % (Auto) 11.5 L, [place] % (Auto) 5.3, Eos % (Auto) 0.0, [...] and I.S. Charges/Coding Visit Charges Inpatient E&M: 19939 Subs Hosp L1 (post-op) 10/22/24 0736 <Electronically signed by Wendy MORALES PA-C> Cosigner Signature (if applicable): CC: ~ Signed [facility] Work Phone: 1(830) 332-717705-15-2025 Progress note [facility] Medical Records Department [address] [place] [address] Progress Note - Surgery 10/22/24 0650 MR#: [id number] Acct: [id number] Name: LUCY CROWLEY V Rep #:[id number] : 2000 24 From: Wendy MORALES PA-C PCP: Dr. Heather Ruby, DO Status:A DM IN Location: MS3 [id number] Subjective Subjective Patient evaluated resting comfortably in [...] 1.0, APTT 35.3, Sodium 137, Potassium 3.3, Fkuprgwz436, Carbon Czxuspk74.1, Anion Gap 12, BUN 8, Creatinine 0.68 L, Estim Creat Clear Calc 142.59, Est GFR (MDRD) Non-Af 124, BUN/Creatinine Ratio 12.2, Ahxsuck27 L, Calcium 8.7, Total Bilirubin 0.46, AST [...] 82.0 H, Lymph % (Auto) 11.5 L, [place] % (Auto) 5.3, Eos % (Auto) 0.0, [...] and I.S. Charges/Coding Visit Charges Inpatient E&M: 60470 Subs Hosp L1 (post-op) 10/22/24 0736 Cosigner Signature (if applicable): CC: ~ Signed [facility]05-14-2025 Consult note Author Dorian Daily [facility] Note Date/Time October 21, 2024 5:52p [facility] Medical Records Department [address] [place] [address] Anesthesia Postop Eval II 10/21/24 1752 MR#: [id number] Acct: [id number] Name: LUCY CROWLEY V Rep #:[id number] : 2000 24 From: Dorian Daily MD PCP: Dr. Heather Ruby, DO Status:A DM IN Y Race: C Location: [place] [address] Anesthesia Postop Eval I Sum Postop Eval Completion status Anesthesia document: Postop Eval 1 completed: Yes Anesthesia Postop Eval I Summary Anesthesia Postop Eval I Summary: Anesthesia Postop Eval I: Assessment Summary Airway patent Yes 10/21/24 16:16 LIMEROCK TOWER LOADER.[email or web address] Spontaneous unlabored Yes 10/21/24 16:16 [employer]OCK TOWER LOADER.JABIEROBManuel respirations Mental status Awake,Calm 10/21/24 16:16 [employer]EROCK TOWER LOADER.JABIEROBY nausea No 10/21/24 16:16 [employer]EROCK TOWER LOADER.JABIEROBY Vomiting No 10/21/24 16:16 LIMEROCK TOWER LOADER.JABIEROBY Anesthesia Postop Eval I: Fluid Summary Crystalloid volume administer 1,400 10/21/24 16:16 LIMEROCK TOWER LOADER.JABIEROBY (ml) Colloids volume administered ( ml) Blood Product volume administered (ml) Total IV fluid infused 1,400 10/21/24 16:16 HUBERT Anesthesia Postop Eval I: Summary Notes Anesthesia Complication No 10/21/24 16:16 HUBERT Anesthesia Complication Comment: Post-operative progress note Anesthesia: Postop Eval II Evaluation Mental status: Awake and Calm Pain Level: 1 nausea: No Vomiting: No Complications Anesthesia Complication: No 10/21/24 1752 <Electronically signed by Dorian ramsey MD> Date _ Dorian Daily MD Cosigner Signature: Date CC: ~ Signed [facility] Work Phone: 1(557) 936-777105-14-2025 Consult note Author Christabipin Smith [facility] Note Date/Time October 21, 2024 4:17p [facility] Medical Records Department [address] [place] [address] Anesthesia Postop Eval I 10/21/241615 MR#: [id number] Acct: [id number] Name: LUCY CROWLEY V Rep #:[id number] : 2000 From: Christa prince [employer]OCK TOWER LOADER PCP: Dr. Heather Ruby, DO Status:A DM IN Y Race: C Location: [place] [address] Anesthesia: Postop Eval I Current Vital Signs [...] 10/21/24 1617 <Electronically signed by Christa salgado LIMEROCK TOWER LOADER> Date _ Christa Smith [employer]OCK TOWER LOADER Cosigner Signature: Date CC: ~ Signed [facility] Work Phone: 1(777) 217-583005-14-2025 Consult note [facility] Medical Records Department [address] [facility] [place] [address] Anesthesia Postop Eval II 10/21/24 175 MR#: [id number] Acct: [id number] Name: LUCY CROWLEY V Rep #:[id number] : 2000 From: Dorian Daily MD PCP: Dr. Heather Ruby, DO Status:A DM IN Y Race: C Location: [place] [address] Anesthesia Postop Eval I Sum Postop Eval Completion status Anesthesia document: Postop Eval 1 completed: Yes Anesthesia Postop Eval I Summary Anesthesia Postop Eval I Summary: Anesthesia Postop Eval I: Assessment Summary Airway patent Yes 10/21/24 16:16 LIMEROCK TOWER [email or web address].[email or web address] Spontaneous unlabored Yes 10/21/24 16:16 [employer] TOWER LOADER.JABIEROBManuel respirations Mental status Awake,Calm 10/21/24 16:16 [employer]OCK TOWER LOADER.SKOBY nausea No 10/21/24 16:16 LIM[employer]OCK TOWER LOADER.SKOBY Vomiting No 10/21/24 16:16 [employer]OCK TOWER LOADER.SKOBY Anesthesia Postop Eval I: Fluid Summary Crystalloid volume administer 1,400 10/21/24 16:16 LIMEROCK TOWER LOADER.SKOBY (ml) Colloids volume administered ( ml) Blood Product volume administered (ml) Total IV fluid infused 1,400 10/21/24 16:16 LIMEROCK TOWER LOADER.SKOBY Anesthesia Postop Eval I: Summary Notes Anesthesia Complication No 10/21/24 16:16 LIMEROCK TOWER LOADER.SKOBY Anesthesia Complication Comment: Post-operative progress note Anesthesia: Postop Eval II Evaluation Mental status: Awake and Calm Pain Level: 1 nausea: No Vomiting: No Complications Anesthesia Complication: No 10/21/24 1752 braulio LOPEZ> Date _ Dorian Daily MD Cosigner Signature: Date CC: ~ Signed [facility]05-14-2025 Procedure note [facility] Medical Records Department [address] [place] [address] Operative Report 10/21/24 1632 MR#: [id number] Acct: [id number] Name: LUCY CROWLEY V Rep #:[id number] : 2000 From: Aquilino Collins MD PCP: Dr. Heather Ruby, Status:A DM IN Location: [place] [id number] Problems Associated Problem List Diagnoses (1) Acute cholecystitis: Procedures Digestive 40xxx-49xxx: 13781 Laparoscopic cholecystectomy (Laparoscopic subtotal cholecystectomy without cholangiograms) Operative Report (Standard) Operative Information Date of Procedure: 10/21/24 Pre-Operative Diagnosis: Acute on chronic cholecystitis Post-Operative Diagnosis: Same Surgery/Procedure Performed: Laparoscopic subtotal cholecystectomy stitcher utility: Yes Anesthesia Attending: Dillan Means Tasks completed by financial sales assistant: Closing, Trocar and Retracting Additional dental front office assistant?: No Type of Anesthesia: General and [...] DRAINS/GRAFTS/IMPLANTS that apply: Drains Drain details: 10 Guyanese fully fluted flat AYSE drain x 1 [...] pain and low-grade fevers. [facility] She was seen and evaluated [...] gallbladder using blunt dissection with the suction construction estimator tip. There was densely adherent omentum to [...] subtotal cholecystectomy was performed by having the dental front office assistant grasped the fundus of the gallbladder. [...] prophylaxis not ordered: Treatment Not Indicated 10/21/24 7123 Cosigner Signature (if applicable): CC: Dr. Heather Ruby DO; Dr. Aquilino Collins MD~ [facility]igned [facility]14[facility]2025 Consult note [facility] Medical Records Department [address] [place] [address] Anesthesia Postop Eval I 10/21/24 1616 MR#: [id number] Acct: [id number] Name: LUCY CROWLEY V Rep #:[id number] : 2000 From: Christa prince CRNA PCP: Dr. Heather Ruby DO Status:A DM IN Y Race: C Location: [facility] MS319 -1 Anesthesia: Postop Eval I Current [...] Postop Eval 1 completed: Yes 10/21/24 1617 ki LIMEROCK TOWER LOADER> Date _ Christa Shabazzfelicianoer Signature: Date CC: ~ Signed [facility] Consult note Author Saran Fragoso [facility] Note Date/Time October 21, 2024 12:39 pm [facility] Medical Records Department [address] [place] [address] Pre-Anesthesia Evaluation 10/21/24 1238 MR#: [id number] Acct: [id number] Name: LUCY CROWLEY V Rep #:[id number] : 2000 From: Saran Fragoso MD PCP: Dr. Heather Ruby, DO Status:A DM IN Y Race: C [facility] -[facility] ASA Classification* ASA Classification ASA Classification: [...] 10/21/24 Hgb 11.5 g/dL (12.0-15.0) L 10/21/24 05: 5 Hct 34.1 % (37-47) L 10/21/24 [...] Laparoscopic cholecystectomy. Anesthesia History Anesthesia History - cardiac rehab nurse: Anesthesia History - cardiac rehab nurse Hx Hospitalization Any Problems With Anesthesia Cholinesterase [...] take am of surgery PONV PONV - cardiac rehab nurse: PONV - cardiac rehab nurse Female HX of Motion Sickness HX of N/V After Surgery Non-Smoker Duration of Surgery greater than 60 minutes Number of Risk Factors PONV Score Height & Weight Height & Weight: Anesthesia: Height & Weight Height 5 ft 6 in 10/20/24 21:23 Weight: 89.6 kg 10/20/24 21:23 Body Mass Index (BMI) 31.8 10/20/24 21:23 Respiratory Assessment Respiratory Assessment - cardiac rehab nurse: Respiratory Tract Infection Hx - cardiac rehab nurse Hx Respiratory Tract Infection STOP Sleep Apnea STOP Sleep Apnea - cardiac rehab nurse: STOP Sleep Apnea - cardiac rehab nurse Hx Hypertension No 10/20/24 21:23 Hx Sleep [...] 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 - cardiac rehab nurse: Tobacco Use History - cardiac rehab nurse Tobacco Use Smoking Status Never smoker 10/20/24 21:23 Hx Tobacco Use No 10/20/24 21:23 Years Smoking Packs Smoked per Day Smoking Cessation Date was within the last 15 years Hx Smoking Cessation Date Hx Smoking Cessation Counseling Hematologic Medial History Hematologic Hx - cardiac rehab nurse: Hematologic Medical Hx - correctional medicine physician Hx of Blood Transfusion No 10/20/24 21:23 [...] confused, unrespo /Reproduction History /Reproductive History - cardiac rehab nurse: /Reproductive Hx- cardiac rehab nurse Hx Now No 10/20/24 21:23 Gestational Age [...] no additional complaints, except as documented. 10/21/24 3064 <Electronically signed by Saran Fragoso MD > Date _ Saran Fragoso MD Cosigner Signature: Date CC: ~ [facility]igned [facility] Work Phone: 1(510) 775-849605-14-2025 History and physical note Author Wendy Santana [facility] Note Date/Time October 21, 2024 11:19 [facility] Medical Records Department [address] [place] [address] History & Physical Exam 10/21/24 0754 MR#: [id number] Acct: [id number] Name: LUCY CROWLEY V Rep #:[id number] : 2000 24 From: Wendy MORALES PA-C PCP: Dr. Heather Ruby, DO Status:A DM IN Location: [facility] DK980-9 HPI - General General Date of Admission: [...] then she went to the ED at [facility]. She was transferred to [facility] with choledocholithiasis on 09/25. Dr. Chacon performed [...] ERCP, which prompted her to proceed to [facility] ED. Patient noted they did labs and [...] 34.1, Plt 217. Liver enzymes are normal. [facility] Medical History Biliary colic Home Medications ?Medication [...] 75.5 H, Lymph % (Auto) 17.3 L, [place] % (Auto) 4.9, Eos % (Auto) 1.2, [...] Sl. Cloudy, Urine pH 6.0, Ur Specific Eros 1.020, Urine Protein 30 H, Urine Glucose [...] (Auto) 75.6 H, Lymph % (Auto) 13.5 L,[place] % (Auto) 5.9, Eos % (Auto) 4.0, [...] patient's care. Charges/Coding Visit Charges Inpatient E&M: 71004 Init Hosp L2 (pre-op) 10/21/24 0829 <Electronically [...] DO; Dr. Aquilino Collins MD ~* Signed [facility] Work Phone: 1(244) 686-351205-14-2025 Consult note [facility] Medical Records Department [address] [place] [address] Pre-Anesthesia Evaluation 10/21/24 1238 MR#: [id number] Acct: [id number] Name: LUCY CROWLEY V Rep #:[id number] : 2000 From: Saran Fragoso MD PCP: Dr. Heather Ruby DO Status:A DM IN Y Race: C Location: [facility] MS319 -1 ASA Classification* ASA Classification ASA [...] Laparoscopic cholecystectomy. Anesthesia History Anesthesia History - cardiac rehab nurse: Anesthesia History - cardiac rehab nurse Hx Hospitalization Any Problems With Anesthesia Cholinesterase [...] take am of surgery PONV PONV - cardiac rehab nurse: PONV - cardiac rehab nurse Female HX of Motion Sickness HX of N/V After Surgery Non-Smoker Duration of Surgery greater than 60 minutes Number of Risk Factors PONV Score Height & Weight Height & Weight: Anesthesia: Height & Weight Height 5 ft 6 in 10/20/24 21:23 Weight: 89.6 kg 10/20/24 21:23 Body Mass Index (BMI) 31.8 10/20/24 21:23 Respiratory Assessment Respiratory Assessment - cardiac rehab nurse: Respiratory Tract Infection Hx - cardiac rehab nurse Hx Respiratory Tract Infection STOP Sleep Apnea STOP Sleep Apnea - cardiac rehab nurse: STOP Sleep Apnea - cardiac rehab nurse Hx Hypertension No 10/20/24 21:23 Hx Sleep [...] 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 - cardiac rehab nurse: Tobacco Use History - cardiac rehab nurse Tobacco Use Smoking Status Never smoker 10/20/24 21:23 Hx Tobacco Use No 10/20/24 21:23 Years Smoking Packs Smoked per Day Smoking Cessation Date was within the last 15 years Hx Smoking Cessation Date Hx Smoking Cessation Counseling Hematologic Medial History Hematologic Hx - cardiac rehab nurse: Hematologic Medical Hx - correctional medicine physician Hx of Blood Transfusion No 10/20/24 21:23 [...] confused, unrespo /Reproduction History /Reproductive History - cardiac rehab nurse: /Reproductive Hx- cardiac rehab nurse Hx Now No 10/20/24 21:23 Gestational Age [...] documented. 10/21/24 1239 > Date _ Saran Dean Signature: Date CC: ~ Signed [facility] History and physical note [facility] Medical Records Department [address] [place] [address] History & Physical Exam 10/21/24 0754 MR#: [id number] Acct: [id number] Name: LUCY CROWLEY V Rep #:[id number] : 2000 From: Wendy MORALES PA-C PCP: Dr. Heather Ruby, DO Status:A DM IN Location: KS3 OX838-5 HPI - General General Date of Admission: [...] and then she went to the at [facility]. She was transferred to [facility] with choledocholithiasis on 09/25. Dr. Chacon performed [...] ERCP, which prompted her to proceed to [facility] [place] ED. Patient noted they did labs and [...] 34.1, Plt 217. Liver enzymes are normal. [facility] Medical History Biliary colic Home Medications ?Medication [...] 75.5 H, Lymph % (Auto) 17.3 L, [place] % (Auto) 4.9, Eos % (Auto) 1.2, [...] Sl. Cloudy, Urine pH 6.0, Ur Specific Eros 1.020, Urine Protein 30 H, Urine Glucose [...] %(Auto) 75.6 H, Lymph % (Auto) 13.5 L,[place] % (Auto) 5.9, Eos % (Auto) 4.0, [...] sign, compatible with acute cholecystitis. [facility] Assessment & Plan Assessment/Plan (1) Acute [...] patient's care. Charges/Coding Visit Charges Inpatient E&M: 61863 Init Hosp L2 (pre-op) 10/21/24 0829 Cosigner Signature (if applicable): CC: ANIRUDH Santana; Dr. Heather Ruyb DO; Dr. Aquilino Collins MD~ Signed ADDENDUM [...] DO; Dr. Aquilino Collins MD ~* [facility]igned [facility] Discharge summary Author Dillan Wu [facility] Note Date/Time October 20, 2024 8:37p m [facility] Medical Records Department [address] [place] [address] Emergency Department Summary 10/20/24 MR#: [id number] Acct: [id number] Name: LUCY CROWLEY V Rep #:[id number] : 2000 From: Dillan Wu MD PCP: [...] gallstones with biliary colic wastransferred here from [facility]. Dr. Chacon did ERCP remove several gallstones. [...] 75.5 H Lymph % (Auto) 17.3 L [place] % (Auto) 4.9 Eos % (Auto) 1.2 [...] Sl. Cloudy Urine pH 6.0 Ur Specific Eros 1.020 Urine Protein 30 H Urine Glucose [...] cholecystitis, Gallstone Disposition Disposition: Acute Care Hospital [facility] What to do if you have Problems For any increased pain, shortness of breath, bleeding, nausea or vomiting, chestpain, or any unexpected problems, contact your Primary Care Provider. Call [facility] ([phone]) or report to the closest Emergency Room. Call 911 if necessary. 10/20/242036 <Electronically signed by Dillan Wu MD> Cosigner Signature (if applicable): CC: Dr. Heather Ruby DO ~ Signed [facility] Work Phone: 1(418) 265-720005-13-2025 Discharge summary [facility] Medical Records Department [address] [place] [address] Emergency Department Summary 10/20/24 MR#: [id number] Acct: [id number] Name: LUCY CROWLEY V Rep #:[id number] : 2000 From: Dillan Wu MD PCP: [...] gallstones with biliary colic wastransferred here from [facility]. Dr. Chacon did ERCP remove several gallstones. [...] Air Room Air 10/20/24 19:17 10/20/24 19:20 05/13/25 20:08 Temperature 99.2 F H 99.2 F [...] 75.5 H Lymph % (Auto) 17.3 L [place] % (Auto) 4.9 Eos % (Auto) 1.2 [...] Sl. Cloudy Urine pH 6.0 Ur Specific Eros 1.020 Urine Protein 30 H Urine Glucose [...] cholecystitis, Gallstone Disposition Disposition: Acute Care Hospital [facility] What to do if you have Problems For any increased pain, shortness of breath, bleeding, nausea or vomiting, chestpain, or any unexpected problems, contact your Primary Care Provider. Call [facility] ([phone]) or report tothe closest Emergency Room. Call 911 if necessary. 10/20/242036 Cosigner Signature (if applicable): CC: Dr. Heather Ruby, ~ Signed [facility]-13[facility]2025 Radiology Diagnostic study note [facility] Imaging Services [address] [place], [place] [address] Gallbladder MR#: [id number] Acct: [id number] Name: LUCY CROWLEY V Rep #: [id number] : 2000 F 24 From: Sharri Love MD PCP: Dr. Heather Ruby DO Status: R EG ER Study:Gallbladder Date of Exam: 10/20/24 Exam# [id number] Ordering Dr: Srinath Wu MD PROCEDURE: GALLBLADDER [...] sign, compatible with acute cholecystitis. Reading [facility] CC: Dr. Dillan Wu MD; Dr. Heather Ruby DO ~ Emery Wheel Molder: Signed [facility]-13-2025 Discharge summary Author iDllan Wu [facility] Note Date/Time October 20, 2024 8:37p m [facility] Medical Records Department [address] [place] [address] Emergency Department Summary 10/20/24 MR#: [id number] Acct: [id number] Name: LUCY CROWLEY V Rep #:[id number] : 2000 24 From: Dillan Wu MD [...] gallstones with biliary colic wastransferred here from [facility]. Dr. Chacon did ERCP remove several gallstones. [...] 75.5 H Lymph % (Auto) 17.3 L [place] % (Auto) 4.9 Eos % (Auto) 1.2 [...] Sl. Cloudy Urine pH 6.0 Ur Specific Eros 1.020 Urine Protein 30 H Urine Glucose [...] sign, compatible with acute cholecystitis. Reading [facility] Discharge Plan Dx/Rx/DC Orders Clinical Impression: Abdominal pain, Fever, Acute cholecystitis, Gallstone Disposition Disposition: [facility] Hospital [facility] What to do if you have Problems For any increased pain, shortness of breath, bleeding, nausea or vomiting, chestpain, or any unexpected problems, contact your Primary Care Provider. Call [facility] ([phone]) or report to the closest Emergency Room. Call 911 if necessary. 10/20/242036 <Electronically signed by Dillan Wu MD> Cosigner Signature (if applicable): CC: Dr. Heather Ruby, DO ~ Signed [facility] Work Phone: 1(108) 226-993504-23-2025 [facility] CONSULTATION REPORT NAME ACCOUNT SEX AGE ADMIT DISCHARGE PT MED. RECORD# NUMBER DATE DATE TYPE CARLINE, [id number] F 24 09/24/2024 1 LUCY Roldan [id number] ROOM: 222 DATE OF : 2000 DICTATING PHYSICIAN: Julia Whitaker DATE OF CONSULTATION: September 24, 2024 REASON FOR CONSULTATION: Abdominal pain. HISTORY OF PRESENT ILLNESS: Mrs. Crowley is a 24-year-old female who presents to [place] with approximately 24 hours of severe right [...] Page 1 of 2 LUCY CROWLEY V Mold Finisher Report LUCY CROWLEY V : 2000 ASSESSMENT: [...] However, we do not offer ERCP at [facility], so she may need to be transferred [...] before proceeding with laparoscopic cholecystectomy. In addition, [facility] tends to shift women that have mitigating factors such as her because she is considered a high-risk . Dictated By: Julia Whitaker MD 09/24/2024 12:01 JOB #: [id number] Transcribed By: am 09/24/2024 12:57 Electronically signed by: E-SIGN DR. WHITAKER 09/30/24 12:56 Page 2 of 2 LUC[facility]OWLEY [facility] Discharge summary Author Carlin Negron [facility] Note Date/Time September 26, 2024 11: 37am [facility] Medical Records Department [address] [place] [address] Discharge Summary 09/26/24 1123 MR#: [id number] Acct: [id number] Name: LUCY CROWLEY V Rep #:[id number] : 2000 From: Carlin Klein PCP: Dr. Heather Ruby DO Status:A DM IN Location: [place] [address]-1 Providers Date of Admission: 09/25/24 Date of Discharge: 09/26/24 Primary Care Physician: Dr. Heather Ruby DO Consultations 09/25/24 18:34 Consult: Gastroenterology Routine Consulting Provider: [facility] Reason for Consult: Choledocholithiasis EMERGENT Consult: [...] Plan The patient is a 24 y/o Jainism F with history of biliary colic intermittently [...] abdominal pain, jaundice andchills. Patient admitted to [facility] floor. She had ERCP with biliary sphincterotomy [...] follow- up with Dr. Shaq Richter at [facility] for her cholecystectomy. He feels safe to [...] examined No fever, but chills in the [facility] Right upper quadrant pain has resolved. No [...] 77.6 H, Lymph % (Auto) 15.8 L, [place] % (Auto) 4.9, Eos % (Auto) 0.4, [...] (Auto) 70.3 H, Lymph % (Auto) 22.4, [place] % (Auto) 5.1, Eos % (Auto) 1.0, [...] of pancreatic and CBD stents. Reading Location: [id number] D/C Instructions Discharge Diet: Light diet - [...] Self Care Charges/Coding Visit Charges Inpatient E&M: 02929 Disch Hosp >30min 09/26/24 1137 <Electronically signed by Carlin Negron MD> Cosigner Signature (if applicable): CC: Dr. Heather Ruby DO; Dr. Carlin Negron MD~ [facility]igned [facility] Work Phone: 1(232) 946-381604-19-2025 Discharge summary Author Carlin Negron [facility] Note Date/Time September 26, 2024 11: 23am [facility] Medical Records Department [facility] [place] [address] Instructions for Home/Discharge Instructions 09/26/24 1118 MR#: [id number] Acct: [id number] Name: LUCY CROWLEY V Rep #:[id number] : 2000 From: Carlin Klein PCP: Dr. [...] Ruby DO; Ld Chacon DO ~ Signed [facility] Work Phone: 1(146) 113-306104-19-2025 Discharge [address] [facility] Medical Records Department [address] [place] [address] Discharge Summary 09/26/24 1123 MR#: [id number] Acct: [id number] Name: LUCY CROWLEY V Rep #:[id number] : 2000 From: Carlin Klein PCP: Dr. Heather Ruby DO Status:A DM IN Location: [facility] TV831-1 Providers Date of Admission: 09/25/24 Date of Discharge: 09/26/24 Primary Care Physician: Dr. Heather Ruby, Consultations 09/25/24 18:34 Consult: Gastroenterology Routine Consulting Provider: [facility] Reason for Consult: Choledocholithiasis EMERGENT Consult: [...] Plan The patient is a 24 y/o Jainism F with history of biliary colic intermittently forabout 10 years but does not see a doctor often came to ED with epigastric and right upper quadrant pain 09/23 approximately 30 minutes following her meals associated nausea, emesis and diaphoresis. [facility] she was delivered/induced on 09/24/2024 at 38.6 weeks admitted vaginal delivery and then transferred to ER. #1. Acute choledocholithiasis with significant hyperbilirubinemia, with cholangitis: Patient has Charcot destroyed with RUQ abdominal pain, jaundice andchills. Patient admitted to [facility] floor. She had ERCP with biliary sphincterotomy [...] follow- up with Dr. Shaq Richter at [facility] for her cholecystectomy. He feels safe to [...] examined No fever, but chills in the [facility] Right upper quadrant pain has resolved. No [...] 77.6 H, Lymph % (Auto) 15.8 L, [place] % (Auto) 4.9, Eos % (Auto) 0.4, [...] (Auto) 70.3 H, Lymph % (Auto) 22.4, [place] % (Auto) 5.1, Eos % (Auto) 1.0, [...] of pancreatic and CBD stents. Reading Location: [id number] D/C Instructions Discharge Diet: Light diet - [...] Self Care Charges/Coding Visit Charges Inpatient E&M: 71625 Disch Hosp >30min 09/26/24 1137 Cosigner Signature (if applicable): CC: Dr. Heather Ruby DO; Dr. Carlin Negron MD~ [facility]igned [facility]-19-2025 Discharge summary [facility] Medical Records Department [address] [place] [address] Instructions for Home/Discharge Instructions 09/26/24 1118 MR#: [id number] Acct: [id number] Name: LUCY CROWLEY V Rep #:[id number] : 2000 From: Carlin Klein PCP: Dr. [...] Ruby DO; Ld Chacon DO ~ Signed [facility]04-19-2025 [facility]04-19-2025 Consult note Author Chandan Mayo [facility] Note Date/Time September 26, 2024 9:[address] [facility] Medical Records Department [address] [place] [address] Consultation - Surgical 09/26/24 0908 MR#: [id number] Acct: [id number] Name: LUCY CROWLEY V Rep #:[id number] : 2000 From: Chandan bell MD PCP: Dr. Heather Ruby DO Status:A DM IN Location: MS3 GK602-9 Assessment & Plan Assessment/Plan (1) Choledocholithiasis: PLAN: Patient gave the day before presentation she presented then with choledocholithiasis. She had ERCP yesterday with stent placement and stone removal. She is feeling well this morning. I will start her on clear liquids. The patient would like to follow-up with Dr. Shaq Richter at [facility] for her cholecystectomy. I will refer her on Saturday. I gave her my card in case he is unable to do the surgery and she can follow-up with me. I believe she is safe to be discharged home today or tomorrow depending on hospitalist service. She has a stent in place to prevent further blockage. Chandan Mayo MD Pager: [facility] [address] [place] [address], [address] [place] [address] Office: HPI Consult Data Date of Consult: 09/26/24 HPI Narrative HPI Narrative: LUCY CROWLEY, is a 24 F who presents with choledocholithiasis from outside hospital. She underwent ERCP yesterday with stone removal and stent placement. Currently she is not having any pain. [facility] Medical History Biliary colic Home Medications ?Medication [...] 77.6 H, Lymph % (Auto) 15.8 L, [place] % (Auto) 4.9, Eos % (Auto) 0.4, [...] (Auto) 70.3 H, Lymph % (Auto) 22.4, [place] % (Auto) 5.1, Eos % (Auto) 1.0, [...] of pancreatic and CBD stents. Reading Location: [id number] 09/26/24918 <Electronically signed by Chandan Mayo MD> Cosigner Signature (if applicable): CC: Dr. Heather Ruby DO~ [facility]igned [facility] Work Phone: 1(775) 739-899104-19-2025 Consult note [facility] Medical Records Department [address] [place] [address] Consultation - Surgical 09/26/24907 MR#: [id number] Acct: [id number] Name: LUCY CROWLEY V Rep #:[id number] : 2000 From: Chandan bell MD PCP: Dr. Heather Ruby DO Status:A DM IN Location: [facility] XD766-2 Assessment & Plan Assessment/Plan (1) Choledocholithiasis: PLAN: Patient gave the day before presentation she presented then with choledocholithiasis. She had ERCP yesterday with stent placement and stone removal. She is feeling well this morning. I will start her on clear liquids. The patient would like to follow-up with Dr. Shaq Richter at [facility] for her cholecystectomy. I will refer her on Saturday. I gave her my card in case he is unable to do the surgery and she can follow-up with me. I believe she is safe to be discharged home today or tomorrow depending on hospitalist service. She has a stent in place to prevent further blockage. Chandan Mayo MD Pager: [facility] [address] [place] [address], [address] [place] [address] Office: HPI Consult Data Date of Consult: 09/26/24 HPI Narrative HPI Narrative: LUCY CROWLEY, is a 24 F who presents with choledocholithiasis from outside hospital. She underwentERCP yesterday with stone removal and stent placement. Currently she is not having any pain. [facility] Medical History Biliary colic Home Medications ?Medication [...] 77.6 H, Lymph % (Auto) 15.8 L, [place] % (Auto) 4.9, Eos % (Auto) 0.4, [...] (Auto) 70.3 H, Lymph % (Auto) 22.4, [place] % (Auto) 5.1, Eos % (Auto) 1.0, [...] of pancreatic and CBD stents. Reading Location: [facility] 09/26/24 0919 Cosigner Signature (if applicable): CC: Dr. Heather Ruby DO~ [facility]igned [facility]-19-2025 Radiology Diagnostic study note [facility] Imaging Services [address] [place], [place] [id number] ERCP Biliary/Pancreas MR#: [id number] Acct: [id number] Name: LUCY CROWLEY V Rep #: [id number] : 2000 From: Duke Cruz MD PCP: Dr. Heather Ruby DO Status: A DM IN Study:ERCP Biliary/Pancreas Date of Exam: 09/25/24 Exam# [id number] Ordering Dr: [place] Chacon DO EXAM: ERCP [...] of pancreatic and CBD stents. Reading Location: [facility] CC: Dr. Heather Ruby DO; Ld Chacon DO ~ Emery Wheel Molder: Signed [facility]04-18-2025 Consult note Author Saran Fragoso [facility] Note Date/Time September 25, 2024 6:0 5pm [facility] Medical Records Department [address] [place] [address] Anesthesia Postop Eval II 09/25/24 1805 MR#: [id number] Acct: [id number] Name: LUCY CROWLEY V Rep #:[id number] : 2000 From: Saran Fragoso MD PCP: [...] MD Cosign Signature: Date CC: ~ [facility]igned [facility] Work Phone: 1(627) 683-278104-18-2025 Consult note Author Saarn Fragoso [facility] Note Date/Time September 25, 2024 6:0 4pm [facility] Medical Records Department [address] [place] [address] [place] [address] Anesthesia Postop Eval I 09/25/241802 MR#: [id number] Acct: [id number] Name: LUCY CROWLEY V Rep #:[id number] : 2000 From: Saran Fragoso MD PCP: Dr. Heather Ruby, DO Status:A DM IN Y Race: C Location: [place] [address] -1 Anesthesia: Postop Eval I Current Vital [...] MD Cosigner Signature: Date CC: ~ [facility] Work Phone: 1(753) 986-682604-18-2025 Consult note Author Ld [facility] Note Date/Time September 25, 2024 4:[address] [facility] Medical Records Department [address] [place] [address] Consultation - GI 09/25/24 1648 MR#: [id number] Acct: [id number] Name: LUCY CROWLEY V Rep #:[id number] : 2000 From: Ld Chacon DO PCP: Dr. Heather Ruby, DO Status:R EG [facility] Location: [facility] A-1 HPI Consult Data Date of Consult: 09/25/24 HPI Narrative Reason for Consultation: Choledocholithiasis HPI Narrative: LUCY CROWLEY, is a 24 F who presents 24-year-old female who is A1 who was induced on 09/26/2024 at 38.6 weeks anddelivered via vaginal delivery who presents for right upper quadrant and epigastric pain from [place]. She was a transfer. History taken by patient, medical record, Dr. Chacon. Patient states that she started having right upper quadrant/epigastric pain on Saturday. [facility] in which they induced her [...] transaminitis with a total bilirubin of 4.1. [facility] Medical History Biliary colic Home Medications ?Medication [...] 77.6 H, Lymph % (Auto) 15.8 L, [place] % (Auto) 4.9, Eos % (Auto) 0.4, [...] ongoing for sometime who [facility] on with history of being in [...] of 3. Charges/Coding Visit Charges Inpatient E&M: 56885 Init Hosp L3 09/25/24 1652 <Electronically signed by Ld Chacon DO> Cosigner Signature (if applicable): CC: Dr. Heather Ruby DO~ [facility]igned [facility] Work Phone: 1(306) 299-310804-18-2025 Consult note Author Saran Fragoso [facility] Note Date/Time September 25, 2024 4:4 9pm [facility] Medical Records Department [address] [place] [address] Pre-Anesthesia Evaluation 09/25/24 1648 MR#: [id number] Acct: [id number] Name: LUCY CROWLEY V Rep #:[id number] : 2000 From: Saran Fragoso MD PCP: Dr. Heather Ruby DO Status:R EG [facility] Y Race: C Location: [place] [address] ASA Classification* ASA Classification ASA Classification: 2 [...] Procedure(s): ERCP Anesthesia History Anesthesia History - cardiac rehab nurse: Anesthesia History - cardiac rehab nurse Hx Hospitalization Any Problems With Anesthesia Cholinesterase [...] take am of surgery PONV PONV - cardiac rehab nurse: PONV - cardiac rehab nurse Female HX of Motion Sickness HX of N/V After Surgery Non-Smoker Duration of Surgery greater than 60 minutes Number of Risk Factors PONV Score Height & Weight Height & Weight: Anesthesia: Height & Weight Height 5 ft 4 in 09/25/24 13:44 Respiratory Assessment Respiratory Assessment - cardiac rehab nurse: Respiratory Tract Infection Hx - cardiac rehab nurse Hx Respiratory Tract Infection STOP Sleep Apnea STOP Sleep Apnea - cardiac rehab nurse: STOP Sleep Apnea - cardiac rehab nurse Hx Hypertension Hx Sleep Apnea CPAP BIPAP Do you snore loudly (louder than talking or can be heard Do you often feel tired/ fatigued/ sleepy during daytime? Has anyone observed you stop breathing during sleep? STOP Results QUESTION #5 FULL TEXT : Do you snore loudly (louder than talking or can be heard through closed doors)? 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 - cardiac rehab nurse: Tobacco Use History - cardiac rehab nurse Tobacco Use Smoking Status Never smoker 09/25/24 16:29 Hx Tobacco Use Years Smoking Packs Smoked per Day Smoking Cessation Date was within the last 15 years Hx Smoking Cessation Date Hx Smoking Cessation Counseling Hematologic Medial History Hematologic Hx - cardiac rehab nurse: Hematologic Medical Hx - correctional medicine physician Hx of Blood Transfusion Hx of Transfusion in last 3 Months Date of Last Transfusion (if within last 3 months) Ever experience any problems with transfusion(s)? Specify any problems Hx of Preganancy in last 3 Months Nurse Filling Out Transfusion & Questions: Date: Time: Patient unable to answer at this time (ie. confused, unrespo /Reproduction History /Reproductive History - cardiac rehab nurse: /Reproductive Hx- cardiac rehab nurse Hx Now Gestational Age (in weeks): EDC: [...] no additional complaints, except as documented. 09/25/24 1449 <Electronically signed by Saran Fragoso MD > Date _ Saran Fragoso MD Cosigner Signature: Date CC: ~ [facility]igned [facility] Work Phone: 1(840) 773-672004-18-2025 History and physical note Author Radha Romano [facility] Note Date/Time September 25, 2024 4:4 0pm [facility] Medical Records Department [address] [place] [address] H&P Exam - Hospitalist 09/25/24 1614 MR#: [id number] Acct: [id number] Name: LUCY CROWLEY V Rep #:[id number] : 2000 From: Radha Romano MD PCP: Dr. Heather Ruby, DO Status:R [facility] Location: [place] [address] HPI - General General Date of Admission: 09/25/24 Date of Service: 09/25/24 Chief Complaint: Epigastric pain. HPI Narrative The patient is a 24 y/o Jainism F w/ PMHx: Biliary colic which from description has been ongoing for some time who [facility] with history of being in her [...] cramps prompting outside facility ED evaluation at [facility]. Patient was admitted and delivered a healthy with no concerns per discussion with patient and spouse as well as review of facility records. The facility did speak with scientific photographer Dr. Chacon who recommended ERCP and was under the impression [facility] but secondary to cost and [...] following ERCP per discussion with ED physician. [facility] Medical History (Updated 09/25/24 @ 16:28 by [...] 77.6 H, Lymph % (Auto) 15.8 L, [place] % (Auto) 4.9, Eos % (Auto) 0.4, [...] Plan The patient is a 24 y/o Jainism F w/ PMHx: Biliary colic which from description has been ongoing for some time who [facility] with history of being in her [...] cramps prompting outside facility ED evaluation at [facility]. #1. Acute choledocholithiasis with significant hyperbilirubinemia, transaminitis, [...] prophylaxis: SCDs. Charges/Coding Visit Charges Inpatient E&M: 13625 Init Hosp L2 09/25/24 1640 <Electronically signed by Radha Romano MD> Cosigner Signature (if applicable): CC: Dr. Radha Romano MD; Dr. Heather Ruby, DO~ [facility]igned [facility] Work Phone: 1(647) 274-641304-18-2025 Evaluation note* Diagnosis Onset Date Resolution Status Admit Date Choledocholithiasis acute September 25, 2024 4:14pm Vaginal delivery acute September 252024 4:14pm [facility] Work Phone: 1(902) 938-188504-18-2025 Evaluation note* Diagnosis Onset Date Resolution Status Admit Date Choledocholithiasis resolved September 25, 2024 4:14pm Vaginal delivery resolved September 252024 4:14pm History of biliary stent insertion a cute October 09, 2024 8:34am Abdominal pain acute October 20, 2024 8:46pm Acute cholecystitis acute October 082024 8:46pm Fever acute October 20, 2024 8:46pm Gallstone acute October 20, 2024 8:46pm [facility] Work Phone: 1([phone]) 590-399104-18-2025 Evaluation note* Diagnosis Onset Date Resolution Status [...] insertion a cute October 20, 2024 8:46pm [facility] Work Phone: 1(616) 815-531004-18-2025 Evaluation note* Diagnosis Onset Date Resolution Status [...] Bile leak acute October 28, 2024 1:07pm [facility] Work Phone: 1([phone]) 342-742204-18-2025 Evaluation note* Diagnosis Onset Date Resolution Status [...] of cholecystectomy acute November 03, 2024 3:23pm [facility] Work Phone: 1(219) 508-613604-18-2025 Evaluation note* Diagnosis Onset Date Resolution Status [...] Bile leak acute November 13, 2024 6:03am [facility] Work Phone: 1([phone]) 821-653804-18-2025 Evaluation note* Diagnosis Onset Date Resolution Status [...] Bile leak acute November 13, 2024 6:03am Abdominal pain acute November 14, 2024 5:32pm Abnormal CT of the abdomen acute November 14, 2024 5:32pm Anemia acute November 14, 2024 5:32pm Bile leak acute November 14, 2024 5:32pm Dilated bowel acute November 14, 025 5:32pm History of biliary stent insertion a cute November 14, 2024 5:32pm Hx of cholecystectomy acute Nov 5:32pm Hypomagnesemia acute November 14, 2024 5:32pm Ileus due to infection acute 2024 5:32pm Lactic acidosis acute November 14, 2024 5:32pm Leukocytosis acute November 14 5:32pm Nausea & vomiting acute November 5:32pm Transaminitis acute November 14 5:32pm [facility] Work Phone: 1(322) 148-169604-18-2025 Evaluation note* Diagnosis Onset Date Resolution Status Admit Date Choledocholithiasis resolved September 25, 2024 4:14pm Vaginal delivery resolved September 252024 4:14pm History of biliary stent insertion i nactive October 09, 2024 8:34am Abdominal pain resolved October 20, 2024 8:46pm Acute cholecystitis resolved October 082024 8:46pm Fever resolved October 20, 2024 8:46pm Gallstone resolved October 20, 2024 8:46pm History of biliary stent insertion i nactive October 20, 2024 8:46pm Bile leak inactive October 28, 2024 1:07pm Bile leak inactive November 03, 2024 2:01pm Hx of cholecystectomy inactive November 03, 2024 2:01pm Bile leak inactive November 03, 2024 3:23pm History of biliary stent insertion i nactive November 03, 2024 3:23pm Hx of cholecystectomy inactive November 03, 2024 3:23pm Bile leak inactive November 12, 2024 8:47am Hx of cholecystectomy inactive Nov 8:47am Bile leak inactive November 13, 2024 6:03am Nausea & vomiting resolved November 5:32pm Abdominal pain inactive November 14, 2024 5:32pm Abnormal CT of the abdomen inactive November 14, 2024 5:32pm Anemia inactive November 14, 2024 5:32pm Bile leak inactive November 14, 2024 5:32pm Dilated bowel inactive November 14 5:32pm History of biliary stent insertion i nactive November 14, 2024 5:32pm Hx of cholecystectomy inactive Nov 5:32pm Hypomagnesemia inactive November 14, 2024 5:32pm Ileus due to infection inactive 2024 5:32pm Lactic acidosis inactive November 14, 2024 5:32pm Leukocytosis inactive November 14 5:32pm Transaminitis inactive November 14 5:32pm [facility] Work Phone: 1(270) 334-906204-18-2025 Consult note [facility] Medical Records Department [address] [place] [address] Anesthesia Postop Eval II 09/25/24 1805 MR#: [id number] Acct: [id number] Name: LUCY CROWLEY V Rep #:[id number] : 2000 From: Saran Fragoso MD PCP: Dr. Heather Ruby, DO Status:A DM IN Y Race: C Location: [place] [address] -1 Anesthesia Postop Eval I Sum Postop [...] 1805 > Date _ Saran Fragoso MD [facility]: Date CC: ~ [facility]igned [facility]2025 Consult note [facility] Medical Records Department [address] [place] [address] Anesthesia Postop Eval I 09/25/24 180 MR#: [id number] Acct: [id number] Name: CARLINELUCY Roldan Rep #:[id number] : 2000 From: Saran Fragoso MD PCP: Dr. Heather Ruby, DO Status:A DM IN Y Race: C [facility]: Postop Eval I Current Vital [...] document: Postop Eval 1 completed: Yes 09/25/241803 > Date _ Saran Fragoso MD [facility] Signature: Date CC: ~ [facility]igned [facility]04-18-2025 Discharge summary Author Florentin Zamudio [facility] Note Date/Time September 25, 2024 4:0 2pm [facility] Medical Records Department [address] [place] [address] Emergency Department Summary 09/25/24 MR#: [id number] Acct: [id number] Name: LUCY CROWLEY V Rep #:[id number] : 2000 From: Florentin vega DO PCP: Dr. Heather Ruby, Status:R EG ER Location: ED HPI History of Present Illness Chief Complaint: Abd Pain Narrative Narrative: Chief complaint and HPI: Right upper quadrant with epigastric abdominal pain. 24-year-old female who is A1 who was induced on 09/26/2024 at 38.6 weeks anddelivered via vaginal delivery who presents for right upper quadrant and epigastric pain from [place]. She was a transfer. History taken by patient, medical record, Dr. Chacon. Patient states that she started having right upper quadrant/epigastric pain on Saturday. She went [facility] on in which they induced her [...] right upper quadrant and epigastric pain from [place]. See HPI. Patient was induced secondaryto her [...] 77.6 H Lymph % (Auto) 15.8 L [place] % (Auto) 4.9 Eos % (Auto) 0.4 [...] DO [Primary Care Provider] - Print Language: Swiss What to do if you have Problems For any increased pain, shortness of breath, bleeding, nausea or vomiting, chestpain, or any unexpected problems, contact your Primary Care Provider. Call [facility] ([phone]) or report to the closest Emergency Room. Call 911 if necessary. 09/25/24 1602 <Electronically signed by Florentin Zamudio DO> Cosigner Signature (if applicable): CC: Dr. Heather Ruby DO ~ [facility]igned [facility] Work Phone: 1(251) [phone] Procedure note [facility] Medical Records Department [address] [place] [address] ERCP Report MR#: [id number] Acct: [id number] Name: LUCY CROWLEY V Rep #:[id number] : 2000 24 From: Ld Chacon DO [...] hours 22 minutes 5 seconds Findings: The animal bounty hunter film was normal. The esophagus was successfully [...] bile duct. Procedure Code(s): --- Professional --- 73370, Endoscopic retrograde cholangiopancreatography (ERCP); with placement of endoscopic stent into biliary or pancreatic duct, including pre- and post-dilation and guide wire passage, when performed, including sphincterotomy, when performed, each stent 67910, 59, Endoscopic retrograde cholangiopancreatography (ERCP); with placement of endoscopic stent into biliary or pancreatic duct, including pre- and post-dilation and guide wire passage, when performed, including sphincterotomy, when performed, each stent 05172, Endoscopic retrograde cholangiopancreatography (ERCP); with removal of calculi/debris from biliary/pancreatic duct(s) 05454, 26, Combined endoscopic catheterization of the biliary and pancreatic ductal systems, radiological supervision and interpretation CPT copyright 2021 [employer]. All rights reserved. The codes documented in this report are preliminary and upon insurance coder review may be revised to meet current compliance requirements. Ld Chacon DO 09/25/2024 5:55:43 PM This report has been signed electronically. Number of Addenda: 0 Note Initiated On: 09/25/2024 5:02 PM 09/25/24 1756 Date _ Ld Scales Signature: Date (if indicated) CC: Dr. Heather Ruby DO; Ld Chacon DO ~ Date Dictated: 09/25/24 1702 Date Transcribed: Emery Wheel Molder: RF Signed [facility]-18-2025 Consult note [facility] Medical Records Department [address] [place] [address] Consultation - GI 09/25/24 1648 MR#: [id number] Acct: [id number] Name: LUCY CROWLEY V Rep #:[id number] : 2000 From: Ld Chacon DO PCP: Dr. Heather Ruby DO Status:R EG [facility] Location: [facility] A-1 HPI Consult Data Date of Consult: 09/25/24 HPI Narrative Reason for Consultation: Choledocholithiasis HPI Narrative: LUCY CROWLEY, is a 24 F who presents 24-year-old female who is A1 who was induced on 09/26/2024 at 38.6 weeks anddelivered via vaginal delivery who presents for right upper quadrant and epigastric pain from [place]. She was a transfer. History taken by patient, medical record, Dr. Chacon. Patient states that she started having right upper quadrant/epigastric pain on Saturday. [facility] [...] transaminitis with a total bilirubin of 4.1. [facility] Medical History Biliary colic Home Medications ?Medication [...] 77.6 H, Lymph % (Auto) 15.8 L, [place] % (Auto) 4.9, Eos % (Auto) 0.4, [...] ongoing for sometime who [facility] on with history of being in [...] of 3. Charges/Coding Visit Charges Inpatient E&M: 45760 Init Hosp L3 09/25/24 1652 Cosigner Signature (if applicable): CC: Dr. Heather Ruby DO~ [facility]igned [facility]-18-2025 Consult note [facility] Medical Records Department [address] [place] [address] Pre-Anesthesia Evaluation 09/25/24 1648 MR#: [id number] Acct: [id number] Name: LUCY CROWLEY V Rep #:[id number] : 2000 From: Saran Fragoso MD PCP: Dr. Heather Ruby DO Status:R EG SDC Y Race: C Location: [facility] ASA Classification* ASA Classification ASA Classification: 2 [...] Procedure(s): ERCP Anesthesia History Anesthesia History - cardiac rehab nurse: Anesthesia History - cardiac rehab nurse Hx Hospitalization Any Problems With Anesthesia Cholinesterase [...] take am of surgery PONV PONV - cardiac rehab nurse: PONV - cardiac rehab nurse Female HX of Motion Sickness HX of N/V After Surgery Non-Smoker Duration of Surgery greater than 60 minutes Number of Risk Factors PONV Score Height & Weight Height & Weight: Anesthesia: Height & Weight Height 5 ft 4 in 09/25/24 13:44 Respiratory Assessment Respiratory Assessment - cardiac rehab nurse: Respiratory Tract Infection Hx - cardiac rehab nurse Hx Respiratory Tract Infection STOP Sleep Apnea STOP Sleep Apnea - cardiac rehab nurse: STOP Sleep Apnea - cardiac rehab nurse Hx Hypertension Hx Sleep Apnea CPAP BIPAP Do you snore loudly (louder than talking or can be heard Do you often feel tired/ fatigued/ sleepy during daytime? Has anyone observed you stop breathing during sleep? STOP Results QUESTION #5 FULL TEXT : Do you snore loudly (louder than talking or can be heard through closeddoors)? 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 - cardiac rehab nurse: Tobacco Use History - cardiac rehab nurse Tobacco Use Smoking Status Never smoker 09/25/24 16:29 Hx Tobacco Use Years Smoking Packs Smoked per Day Smoking Cessation Date was within the last 15 years Hx Smoking Cessation Date Hx Smoking Cessation Counseling Hematologic Medial History Hematologic Hx - cardiac rehab nurse: Hematologic Medical Hx - correctional medicine physician Hx of Blood Transfusion Hx of Transfusion in last 3 Months Date of Last Transfusion (if within last 3 months) Ever experience any problems with transfusion(s)? Specify any problems Hx of Preganancy in last 3 Months Nurse Filling Out Transfusion & Questions: Date: Time: Patient unable to answer at this time (ie. confused, unrespo /Reproduction History /Reproductive History - cardiac rehab nurse: /Reproductive Hx- cardiac rehab nurse Hx Now Gestational Age (in weeks): EDC: [...] MD Cosigner Signature: Date CC: ~ [facility]igned [facility]25 History and physical note [facility] Medical Records Department [address] [place] [address] H&P Exam - Hospitalist 09/25/24 1614 MR#: [id number] Acct: [id number] Name: LUCY CROWLEY V Rep #:[id number] : 2000 From: Radha Romano MD PCP: Dr. Heather Ruby, DO Status:R EG [facility] Location: [facility] A1 HPI - General General Date of Admission: 09/25/24 Date of Service: 09/25/24 Chief Complaint: Epigastric pain. HPI Narrative The patient is a 24 y/o Jainism F w/ PMHx: Biliary colic which from description has been ongoing for some time who [facility] with history of being in her [...] cramps prompting outside facility ED evaluation at [facility]. Patient was admitted and delivered a healthy with no concerns per discussion with patient and spouse as well as review of facility records. The facility did speak with scientific photographer Dr. Chacon who recommended ERCP and was under the impression [facility] but secondary to cost and [...] following ERCP per discussion with ED physician. [facility] Medical History (Updated 09/25/24 @ 16:28 by [...] 77.6 H, Lymph % (Auto) 15.8 L, [place] % (Auto) 4.9, Eos % (Auto) 0.4, [...] Plan The patient is a 24 y/o Jainism F w/ PMHx: Biliary colic which from description has been ongoing for some time who [facility] with history of being in her [...] cramps prompting outside facility ED evaluation at [facility]. #1. Acute choledocholithiasis with significant hyperbilirubinemia, transaminitis, [...] prophylaxis: SCDs. Charges/Coding Visit Charges Inpatient E&M: 97233 Init Hosp L2 09/25/24 1640 Cosigner Signature (if applicable): CC: Dr. Radha Romano MD; Dr. Heather Ruby DO~ [facility]igned [facility]04-18-2025 Discharge summary [facility] Medical Records Department [address] [place] [address] Emergency Department Summary 09/25/24 MR#: [id number] Acct: [id number] Name: LUCY CROWLEY V Rep #:[id number] : 2000 From: Florentin vega DO PCP: [...] right upper quadrant and epigastric pain from [place]. She was a transfer. History taken by patient, medical record, Dr. Chacon. Patient states that she started having right upper quadrant/epigastric pain on Saturday. She went [facility] in which they induced her [...] right upper quadrant and epigastric pain from [place]. See HPI. Patient was induced secondaryto her [...] 77.6 H Lymph % (Auto) 15.8 L [place] % (Auto) 4.9 Eos % (Auto) 0.4 [...] DO [Primary Care Provider] - Print Language: Swiss What to do if you have Problems For any increased pain, shortness of breath, bleeding, nausea or vomiting, chestpain, or any unexpected problems, contact your Primary Care Provider. Call [facility] ([phone]) or report tothe closest Emergency Room. Call 911 if necessary. 09/25/24 1602 Cosigner Signature (if applicable): CC: Dr. Heather Ruby DO ~ [facility]igned [facility]-18-2025 Discharge summary Author Florentin Zamudio [facility] Note Date/Time September 25, 2024 4:0 2pm [facility] Medical Records Department [address] [place] [address] Emergency Department Summary 09/25/24 MR#: [id number] Acct: [id number] Name: LUCY CROWLEY V Rep #:[id number] : 2000 24 From: Florentin vega DO [...] right upper quadrant and epigastric pain from [place]. She was a transfer. History taken by patient, medical record, Dr. Chacon. Patient states that she started having right upper quadrant/epigastric pain on Saturday. She went [facility] in which they induced her [...] right upper quadrant and epigastric pain from [place]. See HPI. Patient was induced secondaryto her [...] 77.6 H Lymph % (Auto) 15.8 L [place] % (Auto) 4.9 Eos % (Auto) 0.4 [...] DO [Primary Care Provider] - Print Language: Swiss What to do if you have Problems For any increased pain, shortness of breath, bleeding, nausea or vomiting, chestpain, or any unexpected problems, contact your Primary Care Provider. Call [facility] ([phone]) or report to the closest Emergency Room. Call 911 if necessary. 09/25/24 1602 <Electronically signed by Florentin Zamudio DO> Cosigner Signature (if applicable): CC: Dr. Heather Ruby DO ~ [facility]igned [facility] Work Phone: Consult note Author Saran Fragoso [facility] Note Date/Time November 13, 2024 11:52 am [facility] Medical Records Department [address] [place] [address] Anesthesia Postop Eval II 11/13/24 1102 MR#: [id number] Acct: [id number] Name: LUCY CROWLEY V Rep #:[id number] : 2000 From: Saran Fragoso MD PCP: Dr. Heather Ruby, DO Status:R EG SDC Y Race: C Location: [facility] Anesthesia Postop Eval I Sum Postop Eval [...] MD Cosigner Signature: Date CC: ~ [facility]igned [facility] Work Phone: Discharge summary Author [facility] Note Date/Time October 23, 2024 1:18p [facility] Medical Records Department [address] [place] [address] Discharge Summary 10/23/24 1305 MR#: [id number] Acct: [id number] Name: LUCY CROWLEY V Rep #:[id number] : 2000 From: Aquilino Collins MD PCP: Dr. Heather Ruby DO Status:A DM IN Location: [place] [address] Providers Date of Admission: 10/20/24 Date of [...] She presented to the emergency [facility] at [facility] with right upper quadrant pain and fevers. [...] % (Auto) 57.9, Lymph % (Auto) 30.5, [place] % (Auto) 4.4, Eos % (Auto) 5.8 [...] Ruby DO; Dr. Aquilino Collins MD~ [facility] Work Phone: Evaluation noteNo assessment information available [facility] Work Phone: Reason for referral (narrative)No [facility] for [facility] Work Phone: Chief Complaint and Reason for Visit Chief [...] Bile leak November 13, 2024 6:03a m Chief Complaint Admit Date ABD PAIN [...] JOSE M November 12, 2024 8:47a m ABDOMINAL PAIN/NAUSEA VOMITING November 14, 2024 5:32pm ABDOMINAL PAIN/NAUSEA VOMITING November 14, 2024 7:22pm ABDOMINAL PAIN/NAUSEA VOMITING November 15, 2024 6:30am ABDOMINAL PAIN/NAUSEA VOMITING November 15, 2024 8:56am ABDOMINAL PAIN/NAUSEA VOMITING November 16, 2024 9:15am ABDOMINAL PAIN/NAUSEA VOMITING November 16, 2024 3:53pm ABDOMINAL PAIN/NAUSEA VOMITING November 16, 2024 4:06pm ABDOMINAL PAIN/NAUSEA VOMITING November 9:41am ABDOMINAL PAIN/NAUSEA VOMITING November 3:32pm ABDOMINAL PAIN/NAUSEA VOMITING November 8:13am ABDOMINAL PAIN/NAUSEA VOMITING November 3:36pm Reason for Visit Admit Date Choledocholithiasis September [...] Bile leak November 13, 2024 6:03a m Abdominal pain November 14, 2024 5:32p m Abnormal CT of the abdomen November 14 5:32pm Anemia November 14, 2024 5:32p m Bile leak November 14, 2024 5:32p m Dilated bowel November 14, 2024 5:32p m History of biliary stent insertion November 14, 2024 5:32pm Hx of cholecystectomy November 14, 2024 5:3 2pm Hypomagnesemia November 14, 2024 5:32p m Ileus due to infection November 14, 2024 5: 32pm Lactic acidosis November 14, 2024 5:32p m Leukocytosis November 14, 2024 5:32p m Nausea & vomiting November 14, 2024 5:32p m Transaminitis November 14, 2024 5:32p m Chief Complaint Admit Date ABD PAIN [...] JOSE M November 12, 2024 8:47a m PREOP November 13, 2024 6:24a m ABDOMINAL PAIN/NAUSEA VOMITING November 14, 2024 5:32pm ABDOMINAL PAIN/NAUSEA VOMITING November 14, 2024 7:22pm ABDOMINAL PAIN/NAUSEA VOMITING November 15, 2024 6:30am ABDOMINAL PAIN/NAUSEA VOMITING November 15, 2024 8:56am ABDOMINAL PAIN/NAUSEA VOMITING November 16, 2024 9:15am ABDOMINAL PAIN/NAUSEA VOMITING November 16, 2024 3:53pm ABDOMINAL PAIN/NAUSEA VOMITING November 16, 2024 4:06pm ABDOMINAL PAIN/NAUSEA VOMITING November 9:41am ABDOMINAL PAIN/NAUSEA VOMITING November 3:32pm ABDOMINAL PAIN/NAUSEA VOMITING November 8:13am ABDOMINAL PAIN/NAUSEA VOMITING November 3:36pm S/P LAP JOSE M December 02, 2024 1:12 pm Reason for Visit Admit Date Choledocholithiasis September 25, 2024 4:1 4pm Vaginal delivery September 25, 2024 4:1 4pm History of biliary stent insertion October 092024 8:34am Abdominal pain October 20, 2024 8:46p m Acute cholecystitis October 20, 2024 8:46p m Fever October 20, 2024 8:46p m Gallstone October 20, 2024 8:46p m History of biliary stent insertion October 082024 8:46pm Bile leak October 28, 2024 1:07p m [...] Bile leak November 13, 2024 6:03a m Nausea & vomiting November 14, 2024 5:32p m Abdominal pain November 14, 2024 5:32p m Abnormal CT of the abdomen November 14 5:32pm Anemia November 14, 2024 5:32p m Bile leak November 14, 2024 5:32p m Dilated bowel November 14, 2024 5:32p m History of biliary stent insertion November 14, 2024 5:32pm Hx of cholecystectomy November 14, 2024 5:3 2pm Hypomagnesemia November 14, 2024 5:32p m Ileus due to infection November 14, 2024 5: 32pm Lactic acidosis November 14, 2024 5:32p m Leukocytosis November 14, 2024 5:32p m Transaminitis November 14, 2024 5:32p m Advance Directives No Advanced Directives Records Found Advance Directive Response Recorded Date/ Time Living Will No September 25, 2024 2:02pm Do you have a Healthcare Power of Hris Manager? No September 25, 2024 2:02pm Advance Directive Response Recorded Date/ Time Living Will No September 25, 2024 6:42pm Do you have a Healthcare Power of Hris Manager? No September 25, 2024 6:42pm Advance Directive Response Recorded Date/ Time Living Will No September 25, 2024 6:42pm Do you have a Healthcare Power of Hris Manager? No September 25, 2024 6:42pm Do you have a Healthcare Power of Hris Manager? No October 20, 2024 5:54pm Advance Directive Response Recorded Date/ Time Living Will No September 25, 2024 6:42pm Do you have a Healthcare Power of Hris Manager? No September 25, 2024 6:42pm Do you have a Healthcare Power of Hris Manager? No October 20, 2024 9:23pm Advance Directive Response Recorded Date/ Time Living Will No September 25, 2024 6:42pm Do you have a Healthcare Power of Hris Manager? No September 25, 2024 6:42pm Do you have a Healthcare Power of Hris Manager? No November 11, 2024 12:40pm Do you have a Healthcare Power of Hris Manager? No October 20, 2024 9:23pm Advance Directive Response Recorded Date/ Time Do you have a Healthcare Power of Hris Manager? No November 14, 2024 5:36pm Living Will No September 25, 2024 6:42pm Do you have a Healthcare Power of Hris Manager? No September 25, 2024 6:42pm Do you have a Healthcare Power of Hris Manager? No November 11, 2024 12:40pm Do you have a Healthcare Power of Hris Manager? No October 20, 2024 9:23pm Summary Purpose Family History No Family History Records FoundNo Family History Records FoundNo Family History Records Found Additional Source Comments Care Teams (unrecognized sec tion and content) [...] Active Member Role Status Dates Dr. Florentin Zamduio DO Emergency Provider Activ e Start: September [...] Active St art: September 26, 2024 Dr. Chanadn Mayo MD Attending Provider Active Start: September [...] Provider Active St art: November 13, 2024 Team Status: Inactive Member Role Status Dates Dr. Heather Ruby DO Primary Care Provider Active Start: November 14, 2024 End: November 18, 2024 Dr. Bunny Calderon MD Admit Provider Active Start: November 14, 2024 End: November 18, 2024 Dr. Bunny Calderon MD Other Provider Active Start: November 14, 2024 End: November 18, 2024 Dr. Julia Joya MD Other Provider Active Sta rt: November 14, 2024 End: November 18, 2024 Dr. Kimberlee Perdomo MD Attending Provider Active Start: November 14, 2024 End: November 18, 2024 Team Status: Active Member Role Status Dates Dr. Heather Ruby DO Primary Care Provider Active Start: November 14, 2024 Dr. Bunny Calderon MD Admit Provider Active Start: November 14, 2024 Dr. Bunny Calderon MD Other Provider Active Start: November 14, 2024 Dr. Ld Chacon DO Attending Provider Active Start: November 14, 2024 Team Status: Active Member Role Status Dates Dr. Heather Ruby DO Primary Care Provider Active Start: November 15, 2024 Dr. Bunny Calderon MD Admit Provider Active Start: November 15, 2024 Dr. Bunny Calderon MD Attending Provider Active Start: November 15, 2024 Dr. Bunny Calderon MD Other Provider Active Start: November 15, 2024 Dr. Julia Joya MD Other Provider Active Sta rt: November 15, 2024 Team Status: Active Member Role Status Dates Dr. Heather Ruby DO Primary Care Provider Active Start: November 15, 2024 Dr. Bunny Calderon MD Admit Provider Active Start: November 15, 2024 Dr. Bunny Calderon MD Other Provider Active Start: November 15, 2024 Dr. Julia Joya MD Attending Provider Active Start: November 15, 2024 Dr. Julia Joya MD Other Provider Active Sta rt: November 15, 2024 Team Status: Active Member Role Status Dates Dr. Heather Ruby DO Primary Care Provider Active Start: November 16, 2024 Dr. Bunny Calderon MD Admit Provider Active Start: November 16, 2024 Dr. Bunny Calderon MD Other Provider Active Start: November 16, 2024 Dr. Julia Joya MD Attending Provider Active Start: November 16, 2024 Dr. Julia Joya MD Other Provider Active Sta rt: November 16, 2024 Dr. Kimberlee Perdomo MD Other Provider Active St art: November 16, 2024 Team Status: Active Member Role Status Dates Dr. Heather Ruby DO Primary Care Provider Active Start: November 16, 2024 Dr. Bunny Calderon MD Admit Provider Active Start: November 16, 2024 Dr. Bunny Calderon MD Other Provider Active Start: November 16, 2024 Dr. Julia Joya MD Other Provider Active Sta rt: November 16, 2024 Dr. Kimberlee Perdomo MD Attending Provider Active Start: November 16, 2024 Dr. Kimberlee Perdomo MD Other Provider Active St art: November 16, 2024 Team Status: Active Member Role Status Dates Dr. Heather Ruby DO Primary Care Provider Active Start: November 16, 2024 Dr. Bunny Calderon MD Admit Provider Active Start: November 16, 2024 Dr. Bunny Calderon MD Other Provider Active Start: November 16, 2024 Dr. Julia Joya MD Other Provider Active Sta rt: November 16, 2024 Dr. Kimberlee Perdomo MD Other Provider Active St art: November 16, 2024 Dr. Ld Chacon DO Attending Provider Active Start: November 16, 2024 Team Status: Active Member Role Status Dates Dr. Heather Ruby DO Primary Care Provider Active Start: November 17, 2024 Dr. Bunny Calderon MD Admit Provider Active Start: November 17, 2024 Dr. Bunny Calderon MD Other Provider Active Start: November 17, 2024 Dr. Julia Joya MD Other Provider Active Sta rt: November 17, 2024 Dr. Kimberlee Perdomo MD Other Provider Active St art: November 17, 2024 Wendy MORALES PA-C Attending Provider Active Start: November 17, 2024 Team Status: Active Member Role Status Dates Dr. Heather Ruby DO Primary Care Provider Active Start: November 17, 2024 Dr. Bunny Calderon MD Admit Provider Active Start: November 17, 2024 Dr. Bunny Calderon MD Other Provider Active Start: November 17, 2024 Dr. Julia Joya MD Other Provider Active Sta rt: November 17, 2024 Dr. Kimberlee Perdomo MD Attending Provider Active Start: November 17, 2024 Dr. Kimberlee Perdomo MD Other Provider Active St art: November 17, 2024 Team Status: Active Member Role Status Dates Dr. Heather Ruby DO Primary Care Provider Active Start: November 18, 2024 Dr. Bunny Calderon MD Admit Provider Active Start: November 18, 2024 Dr. Bunny Calderon MD Other Provider Active Start: November 18, 2024 Dr. Julia Joya MD Other Provider Active Sta rt: November 18, 2024 Dr. Kimberlee Perdomo MD Other Provider Active St art: November 18, 2024 Dr. Aquilino Collins MD Attending Provider Active Start: November 18, 2024 Team Status: Active Member Role Status Dates Dr. Heather Ruby DO Primary Care Provider Active Start: November 18, 2024 Dr. Bunny Calderon MD Admit Provider Active Start: November 18, 2024 Dr. Bunny Calderon MD Other Provider Active Start: November 18, 2024 Dr. Julia Joya MD Other Provider Active Sta rt: November 18, 2024 Dr. Kimberlee Perdomo MD Attending Provider Active Start: November 18, 2024 Dr. Kimberlee Perdomo MD Other Provider Active St art: November 18, 2024 Team Status: Active Member Role Status Dates Dr. Heather Ruby DO Primary Care Provider Active Start: November 13, 2024 End: November 13, 2024 Dr. Julia Villanueva MD Attending Provider Active Start: November 13, 2024 End: November 13, 2024 Dr. Ld Chacon DO Referring Provider Active Start: November 13, 2024 End: November 13, 2024 Team Status: Active Member Role Status Dates Dr. Heather Ruby DO Primary Care Provider Active Start: November 14, 2024 Dr. Bunny Calderon MD Admit Provider Active Start: November 14, 2024 Dr. Bunny Calderon MD Other Provider Active Start: November 14, 2024 Dr. Ld Chacon DO Attending Provider Active Start: November 14, 2024 Dr. Kimberlee Perdomo MD Referring Provider Active Start: November 14, 2024 Team Status: Active Member Role Status Dates Dr. Heather Ruby DO Primary Care Provider Active Start: November 16, 2024 Dr. Bunny Calderon MD Admit Provider Active Start: November 16, 2024 Dr. Bunny Calderon MD Other Provider Active Start: November 16, 2024 Dr. Julia Joya MD Other Provider Active Sta rt: November 16, 2024 Dr. Kimberlee Perdomo MD Referring Provider Active Start: November 16, 2024 Dr. Kimberlee Perdomo MD Other Provider Active St art: November 16, 2024 Dr. Ld Chacon DO Attending Provider Active Start: November 16, 2024 Team Status: Inactive Member Role Status Dates Dr. Heather Ruby DO Primary Care Provider Active Start: December 02, 2024 End: December 02, 2024 Dr. Heather Ruby DO Referring Provider Active Start: December 02, 2024 End: December 02, 2024 Dr. Aquilino Collins MD Attending Provider Active Start: December 02, 2024 End: December 02, 2024 Goals (unrecognized section and content) Goals may be documented in a n alternate section INFORMATION SOURCE (unrecogn ized section and content) DATE CREATED AUTHOR 10/18/2024 [facility] DATE CREATED AUTHOR AUTHOR'S ORGANIZ ATION 11/21/2024 [facility] DATE CREATED AUTHOR AUTHOR'S ORGANIZ ATION 12/05/2024 [facility] FOR RECORDS PERTAINING TO PATIENTS WHO ARE [...] BE BASED ON THE PRIMARY CLINICAL RECORDS. [employer] provides no warranty or guarantee of the accuracy or completeness of information in this document.
[2024-12-05 23:20] LABS: Absolute Lymphocyte Count 3.54 X10^3/uL (0.83-4.51); Absolute Neutrophil Count 2.9 X10^3/uL (2.0-7.7); Basophil# 0.03 X10^3/uL; Basophil% 0.4 % (0-1); Eosinophil# 0.29 X10^3/uL; Hematocrit 35.4 % (37-47); Hemoglobin 11.7 g/dL (12.0-15.0); Lymphocyte # 3.54 X10^3/ul (0.83-4.51); Lymphocyte % 48.3 % (19-41); Mean Corp Hgb Conc 33.1 g/dL (32-36); Mean Corpuscular Hgb 29.5 pg (27.0-32.0); Mean Corpuscular Volume 89.4 fL (81-99); Mean Platelet Vol. 9.8 fl (6.2-12.0); Monocyte# 0.51 X10^3/uL; NRBC Flagged by Analyzer 0 % (0-5); Neutrophil # 2.93 X10^3/uL (2.7-7.7); Neutrophil % 39.9 % (47-70); Platelet Count 260 K/mm3 (150-450); RBC Distribution Width CV 12.7 % (11.6-14.6); RBC Distribution Width SD 41.6 fl (35.1-43.9); Red Blood Count 3.96 M/mm3 (4.2-5.4); White Blood Count 7.3 K/mm3 (4.4-11.0)
[2024-12-05 23:46] LABS: Lipase 56 U/L (13-75)
[2024-12-05 23:51] LABS: AST(SGOT) 20 U/L (<=31); Alanine Aminotransfer ALT/SGPT 22 U/L (<=34); Albumin, Serum 4.3 g/dL (3.5-5.0); Alkaline Phosphatase 96 U/L (35-104); Anion Gap 11 (5-15); BUN 18 mg/dL (4-19); BUN/Creat Ratio 23.4 RATIO (10-20); Bilirubin, Direct < 0.08 mg/dL (0.00-0.30); Calcium,Total 9.6 mg/dL (7.6-11.0); Carbon Dioxide 26.7 mmol/L (21.0-32.0); Chloride 103 mmol/L (98-108); Creatinine, Serum 0.75 mg/dL (0.70-1.20); EST Glomerular Filtration Rate 114 (>60); Estimated Creatinine Clearance 129.96 ml/min (50-250); Globulin 3.1 g/dL (2.2-4.2); Glucose 93 mg/dL (70-99); Potassium 4.1 mmol/L (3.3-5.1); Protein, Total 7.4 g/dL (5.9-8.4); Sodium Level 141 mmol/L (133-145); Total Bilirubin 0.21 mg/dL (0.00-1.30)
--- NOTE | 2024-12-06 00:25 | EDS_ITS ---
HPI History of Present Illness Chief Complaint: Wound Check Informant: patient and spouse/S.O. Narrative Narrative: Patient is a 24-year-old female with past medical history of of recurrent abdominal surgeries as well as history of biliary colic requiring biliary stent placement pancreatic stent placement and cholecystectomy. She has a AYSE drain in place since surgery in October. She states recently the drain has been producing more fluid and it appears discolored. She states that there has been no fevers or chills or recent trauma. She states that she contacted her surgeon who because of the increased drainage and symptoms had concern for potential drain m alfunction or obstruction to the previous stents advised her to come in for evaluation. [facility] Medical History (Updated 12/06/24 @ 00:[address] Alden Caruso DO) Ileus due to infection Dilated bowel Abnormal CT of the abdomen Anemia Leukocytosis Transaminitis Hypomagnesemia Lactic acidosis Abdominal pain History of biliary stent insertion Wears glasses Non-smoker Bile leak Biliary colic Home Medications ?Medication ?Instructions ?Recorded ?Last Taken ?Type amoxicillin 875 mg-potassium 1 tab PO BID 12/05/24 Unk nown History clavulanate 125 mg tablet oxycodone 5 mg tablet 5 mg PO 12/05/24 Unknown His tory Allergy/AdvReac Type Severity Reaction Status Date / Time No Known Allergies Allergy Verified 12/05/24 22:34 Family History Mother No problems noted. Father No problems noted. Surgical History (Updated 12/06/24 @ 05:[address] Alden Caruso DO) S/P cholecystectomy History of ERCP Hx of cholecystectomy Hx of appendectomy Social History household members: spouse, children and other details: 2 older children at home, 1 miscarriage, 1 09/24/24. Smoking Status: Never smoker alcohol intake: never substance use type: does not use ROS ROS ED Constitutional Constitutional ED: Denies chills or fever(s) Eyes Eyes: Denies change in vision ENT ENT ED: Denies sore throat Cardiovascular Cardiovascular: Denies chest pain Respiratory/Chest Respiratory/Chest: Denies cough or dyspnea Gastrointestinal Gastrointestinal: Reports abdominal pain; Denies diarrhea, nausea or vomiting Genitourinary Genitourinary ED: Denies dysuria Musculoskeletal Musculoskeletal: Denies back pain Integumentary Denies rash Neurologic Neurologic: Denies headache(s) Hematologic/Lymphatic Hematologic/Lymphatic: Denies easy bleeding or easy bruising EXAM Physical Exam Const Vital Signs: 12/05/24 22:35 12/06/24 00:27 Temperature 98.5 F 98.5 F Temperature Source Oral Pulse Rate 76 86 Respiratory Rate 18 16 Blood Pressure 111/72 110/68 Blood Pressure Mean 85 82 Pulse Ox 100 98 Oxygen Delivery Method Room Air Positive well nourished and well developed General Appearance ED: well developed; Negative for pallor HEENT HEENT Narrative: Normocephalic atraumatic Eyes PERRL and EOMs intact bilaterally General Eye ED: Negative for scleral icterus Neck supple Resp normal respiratory effort and clear to auscultation bilaterally Cardio regular rate and regular rhythm Rate: other Other Details: Regular rate and rhythm without murmurs rubs or gallops Radial and carotid pulses are equal and symmetric GI non-distended and no masses GI Narrative: Abdomen is soft and nondistended with normal active bowel sounds. There is mild pain with palpation in the right mid epigastric region. No voluntary guarding or rigidity. No pulsatile mass or fluid wave. AYSE drain appears in place and intact without secondary findings of superficial skin infection at insertion site. Auscultation: normoactive bowel sounds Palpation: soft Back/Spine no CVA tenderness Extremity normal to inspection Extremity Narrative: Negative Homans' sign bilaterally Neuro oriented x3, CN's II-XII intact bilaterally and no sensory deficits noted Sensorium / Orientation: alert Psych mental status grossly normal Skin no rashes or lesions noted General Skin Exam: Negative for jaundice or pallor MDM MDM MDM Narrative Medical decision making narrative: Patient arrived to the ER with stable vitals and a soft nonsurgical abdomen. She reported her AYSE drain is now putting out more fluid and it is more discolored than it was initially. Secondary to this there is concern for potential internal infection or obstruction of her pancreatic or biliary stent. Therefore basic labs were obtained along with a CT scan with IV contrast. Labs showed no leukocytosis or left shift and her liver enzymes are normal. Lipase is also normal and the fact that these values are within normal range go against a biliary or pancreatic stent obstruction or malfunction. CT scan confirms the AYSE drain is in proper position with only a small amount of fluid in the gallbladder fossa region. Without fever leukocytosis or left shift concerned that this is an infectious fluid is low and do not feel the need for antibiotics. I did discuss the case with her general surgeon Dr. Collins. He agrees that with stable vitals and normal labs especially her liver enzymes that there is no need for admission and she can follow-up as an outpatient and continue further testing. This plan of care was discussed with patient and family who are agreeable to it and therefore she will be discharged in stable condition History & Record Review Discussion w/independent historian: Patient and Significant other Lab Data Attestation: I reviewed the patient's lab results. Labs: Laboratory Results - last 24 hr 12/05/24 23:15 WBC 7.3 RBC 3.96 L Hgb 11.7 L Hct 35.4 L MCV 89.4 MCH 29.5 MCHC 33.1 RDW Std Deviation 41.6 RDW Coeff of Rebeca 12.7 Plt Count 260 MPV 9.8 Immature Gran % (Auto) 0.400 Neut % (Auto) 39.9 L Lymph % (Auto) 48.3 H Esmeralda % (Auto) 7.0 Eos % (Auto) 4.0 Baso % (Auto) 0.4 Absolute Neuts (auto) 2.9 Absolute Lymphs (auto) 3.54 Nucleated RBC % 0 Sodium 141 Potassium 4.1 Chloride 103 Carbon Dioxide 26.7 Anion Gap 11 BUN 18 Creatinine 0.75 Estim Creat Clear Calc 129.96 Est GFR (MDRD) Non-Af 114 BUN/Creatinine Ratio 23.4 H Glucose 93 Calcium 9.6 Total Bilirubin 0.21 Direct Bilirubin < 0.08 AST 20 ALT 22 Alkaline Phosphatase 96 Total Protein 7.4 Albumin 4.3 Globulin 3.1 Lipase 56 Radiography Diagnostic Testing: Clinical Impression(s) from Imaging Studies Abdomen/Pelvis CT 12/05/24 23:05 IMPRESSION: No acute abdominopelvic findings. Reading Location: [place] [address] Discharge Plan Triage Chief Complaint: Wound Check ED Provider: Alden Caruso Dx/Rx/DC Orders Clinical Impression: Nonspecific abdominal pain, History of biliary duct stent placement, History of insertion of pancreatic stent Instructions: Abdominal Pain Prescriptions: No Action amoxicillin-pot clavulanate 875-125 mg tablet 1 tab PO BID oxycodone 5 mg tablet 5 mg PO Primary Care Provider: Heather Ruby Referrals: Heather Ruby, [Primary Care Provider] - Aquilino Collins MD [Med Staff - Active Staff] - Activity Restrictions/Additional Instructions: Your CT scan showed that your stents are in proper position and open/flowing and your drain is in proper position without significant fluid around your liver. Liver enzymes are also normal/improved from November 18. Therefore please follow-up with your surgeon as well as GI doctor/doctor Friend. You will most likely need an outpatient HIDA scan to further assess the cause of your symptoms. Please return to the ER should you have any further concerns Print Language: Lithuanian Disposition Disposition: Home, Self Care Discharge Date/Time: 12/06/24 00:33
[2024-12-06 00:27] VITALS: BP 110/68; PULSE 86; RESP 16; TEMP 36.9; O2SAT 98
== END 2024-12-06 00:33 | disposition home or self-care (01) ==
PROVIDERS: Emergency Provider Emergency Medicine; PCP Obstetrics & Gynecology Gynecology; Visit Provider Emergency Medicine
DX: R10.9 Unspecified abdominal pain (principal); Z90.49 Acquired absence of other specified parts of digestive tract; Z96.89 Presence of other specified functional implants
CPT/HCPCS: 74177; 80048; 80076; 83690; 85025; 96360; 99282; Q9967; A4216

== ENCOUNTER → 2025-01-01 | Outpatient (CLI) | payer OTHER, SELFPAY ==
--- NOTE | 2025-01-01 08:45 | NM_ITS ---
PROCEDURE: HEPATOBILIARY IMAGING 01/01/2025 REASON FOR EXAM: BILE LEAK TECHNIQUE: Intravenous Choletec with planar imaging of the abdomen. RADIOPHARMACEUTICAL: 5.7 mCi technetium 9 9 M mebrofenin COMPARISON: CT 12/05/2024, HIDA scan 10/28/2024 FINDINGS: There is a history of a partial cholecystectomy. There is a drain in the gallbladder fossa/residual gallbladder. Initial imaging shows prompt and homogeneous liver activity. There is CBD and proximal bowel activity by 7 minutes. There is activity in the gallbladder fossa by 27 minutes, probably within the remnant gallbladder. There is otherwise no evidence for bile leak. NM/Hepatobilliary Imaging IMPRESSION: Unremarkable appearance status post partial cholecystectomy. No specific evide nce for bile leak. Reading Location: [place] [address]
== END | disposition home or self-care (01) ==
LOC: NM 08:44
PROVIDERS: PCP Obstetrics & Gynecology Gynecology; Referring Provider Surgery; Visit Provider Surgery
DX: K80.50 Calculus of bile duct without cholangitis or cholecystitis without obstruction (principal)
CPT/HCPCS: 78226; A9537